=== PATIENT | male | born 1935 | race Caucasian/White ===

== ENCOUNTER 2017-04-18 12:49 | Emergency (ER) | payer MEDICARE, OTHER ==
--- NOTE | 2017-04-18 13:16 | ED Physician Documentation ---
History of Present Illness - Stated complaint Stated Complaint: LT RIB PX FALL - Chief complaint Chief Complaint: General - History obtained from History obtained from: Patient, Family - History of Present Illness Timing: Yesterday Pain level max: 10 Pain level now: 6 Improved by: rest Worsened by: movement - Additonal information Additional information: 81 yo M walking his dog yesterday at approx noon, tripped and fell onto hard dirt. Now complains of pain to the L chest wall. Worse yesterday, better today. Pain increased with ROM. Better with rest. Tylenol has helped with the pain. Pt is on xarelto and did strike his forehead as well. Also complains of pain with inspiration. Review of Systems Ten Systems: 10 systems reviewed and negative Constitutional: denies: Fever, Chills Nose: denies: Rhinorrhea / runny nose, Congestion Throat: denies: Sore throat Cardiac: denies: Chest pain / pressure Respiratory: denies: Cough, Hemoptysis, Wheezing GI: denies: Nausea, Vomiting, Diarrhea Skin: denies: Rash Musculoskeletal: denies: Neck pain, Back pain Neurologic: denies: Focal weakness, Numbness, Headache PD PAST MEDICAL HISTORY - Past Medical History Cardiovascular: Atrial fibrillation Endocrine/Autoimmune: Type 2 diabetes GI: GERD - Past Surgical History Past Surgical History: No - Present Medications Home Medications: Ambulatory Orders Medication Instructions Recorded Confirmed Bupropion HCl [Bupropion HCl Sr] 150 mg PO DAILY 08/07/14 04/18/17 Diltiazem HCl [Diltiazem ER] 240 mg PO DAILY 08/07/14 04/18/17 Metformin HCl [Fortamet] 500 mg PO DAILY 08/07/14 04/18/17 Omeprazole 20 mg PO DAILY 08/07/14 04/18/17 Rivaroxaban [Xarelto] 20 mg PO DAILY 08/07/14 04/18/17 Hydrocodone/Acetaminophen 1 - 2 each PO Q6H PRN #20 tablet 04/18/17 [Hydrocodon-Acetaminophen 5-325] - Allergies Allergies/Adverse Reactions: Allergies Allergy/AdvReac Type Severity Reaction Status Date / Time oxycodone HCl * Allergy Unknown Unknown Verified 04/18/17 13:06 [From Percocet] - Social History Does the pt smoke?: No Smoking Status: Never smoker Does the pt drink ETOH?: No Does the pt have substance abuse?: No - Immunizations Immunizations are current?: Yes - POLST Patient has POLST: No PD ED PE NORMAL - Vitals Vital signs reviewed: Yes - General General: Alert and oriented X 3, No acute distress, Well developed/nourished, Other (abrasion to the R forehead) - HEENT HEENT: PERRL, EOMI, Ears normal, Moist mucous membranes, Pharynx benign - Neck Neck: Supple, no meningeal sign, No bony TTP - Cardiac Cardiac: RRR, Strong equal pulses - Respiratory Respiratory: No respiratory distress, Clear bilaterally, Other (TTP L anterior 3 -7th ribs. No crepitus. no ecchymosis) - Abdomen Abdomen: Soft, Non tender, Non distended - Back Back: No spinal TTP - Derm Derm: Warm and dry - Extremities Extremities: No edema, No calf tenderness / cord - Neuro Neuro: Alert and oriented X 3 - Psych Psych: Normal mood, Normal affect Results - Vitals Vitals: Vital Signs - 24 hr 04/18/17 04/18/17 12:58 15:01 Temperature 36.8 C Heart Rate 67 60 Respiratory 18 16 Rate Blood Pressure 135/76 H 147/89 H O2 Saturation 97 97 Oxygen O2 Source Room air - Rads (name of study) head CT Radiology: Prelim report reviewed, EMP read contemporaneously, See rad report ( No acute intracranial abnormality nor bleed. ) ribs with PA chest Radiology: Prelim report reviewed, EMP read contemporaneously, See rad report ( Hairline fractures anterior aspects of the left fourth, fifth, sixth and seventh ribs. Pacer) PD MEDICAL DECISION MAKING - ED course Complexity details: reviewed results, re-evaluated patient, considered differential, d/w patient ED course: Patient is an 81-year-old male who presents to the emergency department with left-sided rib pain after a fall. He is found to have multiple hairline fractures of the fourth, fifth, sixth and seventh ribs. No pneumothorax or hemothorax. Pain well controlled here. Patient is on Xarelto and did strike his head, negative head CT. We will continue supportive care and follow-up with his doctor. No other acute injuries at this time. Patient counseled regarding signs and symptoms for which I believe and urgent re-evaluation would be necessary. Patient with good understanding of and agreement to plan and is comfortable going home at this time This document was made in part using voice recognition software. While efforts are made to proofread this document, sound alike and grammatical errors may occur. Departure - Departure Disposition: 01 Home, Self Care Clinical Impression: Ribs, multiple fractures Qualifiers: Encounter type: initial encounter Fracture type: closed Laterality: left Qualified Code(s): S22.42XA - Multiple fractures of ribs, left side, initial encounter for closed fracture Condition: Good Instructions: ED Fx Rib Follow-Up: Alejandrina Rivas MD [Primary Care Provider] - Within 1 week Prescriptions: Hydrocodone/Acetaminophen [Hydrocodon-Acetaminophen 5-325] 1 - 2 each PO Q6H PRN #20 tablet PRN Reason: pain Comments: You have several small fractures of your ribs. This can take weeks to months to heal. Take several deep breaths every hour. Return if you worsen. Do not drink alcohol or drive while on narcotic pain medicine. Note that many narcotic pain relievers also contain tylenol/acetaminophen. Please ensure that your total dose of acetaminophen from all sources does not exceed 3 grams (3000mg) per day. You may constipated on this medication, take a stool softener such as "Colace" twice a day while you are on it. Also recommend a [id number]-[id number] laxative such as senna or MiraLAX any day that you do not have a bowel movement. If you received narcotic pain medication in the emergency department, do not drive or operate machinery for the next 24 hours. Discharge Date/Time: 04/18/17 15:02
[2017-04-18] MEDS ORDERED: HYDROcod/ACETAM 5/325 MG TABLET PO STA (14:08)
[2017-04-18] MEDS ORDERED: HYDROcod/ACETAM 5/325 MG TABLET ONE (14:10)
--- NOTE | 2017-04-18 14:19 | CT Preliminary Report ---
Exam: CT Head W/O IMPRESSION: No acute intracranial abnormality nor bleed. [facility] SITE ID: [id number]
--- NOTE | 2017-04-18 14:23 | CT Report ---
EXAM: CT HEAD EXAM DATE: 04/18/2017 02:05 PM. CLINICAL HISTORY: Ground level fall. Patient on Xarelto. COMPARISON: None. TECHNIQUE: Multiaxial CT images were obtained from the foramen magnum to the vertex. IV contrast: Non e. Reformats: Coronal. In accordance with CT protocol optimization, one or more of the following dose reduction techniques w ere utilized for this exam: automated exposure control, adjustment of mA and/or KV based on patient s ize, or use of iterative reconstructive technique. FINDINGS: Parenchyma: No intraparenchymal hemorrhage. No evidence of mass, midline shift, or CT findings of acu te infarction. Chavira-white differentiation is distinct. Extraaxial Spaces: Normal for age. 3 x 5 mm dystrophic calcification within a mid medial left frontal gyrus. No subdural or epidural col lections identified. Ventricles: The ventricles and cortical sulci are enlarged, consistent with age-related tissue loss. Sinuses: Imaged paranasal sinuses, orbits, and mastoids show no significant abnormality. Bones: No evidence of fracture or calvarial defect. Other: Diffuse chronic microangiopathic white matter changes are evident. IMPRESSION: No acute intracranial abnormality nor bleed. [facility] Referring Provider Line: [phone] SITE ID: [id number]
--- NOTE | 2017-04-18 14:26 | XRAY Preliminary Report ---
Exam: XR Ribs w/PA Chest LT IMPRESSION: 1. Hairline fractures anterior aspects of the left fourth, fifth, sixth and seventh ribs. 2. Pacer. [facility] SITE ID: [id number]
--- NOTE | 2017-04-18 14:35 | XRAY Report ---
EXAM: LEFT RIB RADIOGRAPHY EXAM DATE: 04/18/2017 02:15 PM. CLINICAL HISTORY: Ground level fall, left rib pain. COMPARISON: Two-view chest 04/04/2006. TECHNIQUE: 1 view of the chest and 2 views of the ribs. FINDINGS: Bones: A marker was placed in the area of concern and this corresponds to the anterior most aspects o f the left fourth and fifth ribs. Hairline fractures of the anterior most aspects of the left fourth, fifth, sixth and seventh ribs with a very small amount of adjacent pleural thickening. Lungs: Minimal amount of platelike atelectasis left base. No other focal opacities. No pneumothorax. No pleural effusions. Mediastinum: Heart and mediastinal contours are unremarkable. Other: Stable dual lead left subclavian pacer. IMPRESSION: 1. Hairline fractures anterior aspects of the left fourth, fifth, sixth and seventh ribs. 2. Pacer. [facility] Referring Provider Line: [phone] SITE ID: [id number]
[2017-04-18 15:02] VITALS: BP 147/89
== END 2017-04-18 15:02 | disposition home or self-care (01) ==
LOC: ED 12:49
DX: S22.42XA Multiple fractures of ribs, left side, initial encounter for closed fracture (principal); S00.81XA Abrasion of other part of head, initial encounter; W01.0XXA Fall on same level from slipping, tripping and stumbling without subsequent striking against object, initial encounter; Y93.K1 Activity, walking an animal; E11.9 Type 2 diabetes mellitus without complications; Z79.84 Long term (current) use of oral hypoglycemic drugs; I48.91 Unspecified atrial fibrillation; Z79.01 Long term (current) use of anticoagulants
CPT/HCPCS: 70450; 71101; 99283; 99284; A9270

== ENCOUNTER 2017-08-09 14:14 | Emergency (ER) | payer MEDICARE, OTHER ==
[2017-08-09] MEDS ORDERED: SODIUM CHLORIDE 0.9% 1,000 ML IV ONE (14:56)
--- NOTE | 2017-08-09 15:08 | ED Physician Documentation ---
History of Present Illness - Stated complaint Stated Complaint: WEAKNESS - Chief complaint Chief Complaint: Neuro - History obtained from History obtained from: Patient, Family - History of Present Illness Timing: How many days ago (4) Pain level max: 0 Pain level now: 0 Improved by: rest Worsened by: movement - Additonal information Additional information: Patient is an 81-year-old gentleman who presents to the emergency department with weakness, dry cough, intermittent diarrhea for the past 4 days. He states he has had a poor appetite, but no abdominal pain. No vomiting. No nausea. No headache. Review of Systems Ten Systems: 10 systems reviewed and negative Constitutional: denies: Fever, Chills GI: denies: Vomiting Skin: denies: Rash Musculoskeletal: denies: Neck pain, Back pain Neurologic: denies: Focal weakness, Numbness, Seizure, Confused PD PAST MEDICAL HISTORY - Past Medical History Past Medical History: Yes Cardiovascular: Atrial fibrillation Endocrine/Autoimmune: Type 2 diabetes GI: GERD - Past Surgical History Past Surgical History: Yes Cardiovascular: Pacemaker - Present Medications Home Medications: Ambulatory Orders Medication Instructions Recorded Confirmed Bupropion HCl [Bupropion HCl Sr] 150 mg PO DAILY 08/07/14 08/09/17 Diltiazem HCl [Diltiazem ER] 240 mg PO DAILY 08/07/14 08/09/17 Metformin HCl [Fortamet] 500 mg PO DAILY 08/07/14 08/09/17 Omeprazole 20 mg PO DAILY 08/07/14 08/09/17 Rivaroxaban [Xarelto] 20 mg PO DAILY 08/07/14 08/09/17 - Allergies Allergies/Adverse Reactions: Allergies Allergy/AdvReac Type Severity Reaction Status Date / Time oxycodone HCl * Allergy Unknown Unknown Verified 08/09/17 14:31 [From Percet] - Social History Does the pt smoke?: No Smoking Status: Never smoker Does the pt drink ETOH?: No Does the pt have substance abuse?: No - Immunizations Immunizations are current?: Yes - POLST Patient has POLST: No PD ED PE NORMAL - Vitals Vital signs reviewed: Yes - General General: Alert and oriented X 3, No acute distress - HEENT HEENT: PERRL, Moist mucous membranes, Other (dry lips) - Neck Neck: Supple, no meningeal sign - Cardiac Cardiac: RRR, Strong equal pulses - Respiratory Respiratory: No respiratory distress, Clear bilaterally - Abdomen Abdomen: Soft, Non tender, Non distended - Derm Derm: Warm and dry - Extremities Extremities: No deformity, No edema, No calf tenderness / cord - Neuro Neuro: Alert and oriented X 3 - Psych Psych: Normal mood, Normal affect Results - Vitals Vitals: Vital Signs - 24 hr 08/09/17 08/09/17 08/09/17 14:28 15:00 16:14 Temperature 36.2 C L 36.5 C Heart Rate 78 76 59 L Respiratory 16 18 15 Rate Blood Pressure 129/78 122/80 127/71 O2 Saturation 99 97 08/09/17 17:51 Temperature Heart Rate 78 Respiratory 15 Rate Blood Pressure 136/79 H O2 Saturation 98 Oxygen O2 Source Room air - EKG (time done) 1441 Rate: Rate (enter#) (67) Rhythm: NSR [place]: Normal Intervals: Normal [place] QRS: Normal Ischemia: Non specific changes - Labs Labs: Laboratory Tests 08/09/17 08/09/17 08/09/17 15:05 15:05 15:10 WBC 4.6 L RBC 4.80 Hgb 11.6 L Hct 36.9 L MCV 77.0 L MCH 24.3 L MCHC 31.5 L RDW 19.1 H Plt Count 253 MPV 7.8 Neut # 3.0 Lymph # 0.8 L Roberts # 0.7 Eos # 0.0 Baso # 0.1 Absolute Nucleated RBC 0.01 Nucleated RBC % 0.2 Sodium 134 L Potassium 3.9 Chloride 101 Carbon Dioxide 21 Anion Gap 12.0 BUN 12 Creatinine 1.0 Estimated GFR (MDRD) 72 L Glucose 100 Calcium 9.0 Total Bilirubin 0.7 AST 38 ALT 38 Alkaline Phosphatase 61 Total Protein 7.9 Albumin 3.7 Globulin 4.2 Albumin/Globulin Ratio 0.9 L Lipase 39 Urine Color Urine Clarity Urine pH Ur Specific [place] Urine Protein Urine Glucose (UA) Urine Ketones Urine Occult Blood Urine Nitrite Urine Bilirubin Urine Urobilinogen Ur Leukocyte Esterase Ur Microscopic Review Urine Culture Comments Influenza A (Rapid) Negative Influenza B (Rapid) Negative Influenza Types A,B Ag - 08/09/17 17:00 WBC RBC Hgb Hct MCV MCH MCHC RDW Plt Count MPV Neut # Lymph # Roberts # Eos # Baso # Absolute Nucleated RBC Nucleated RBC % Sodium Potassium Chloride Carbon Dioxide Anion Gap BUN Creatinine Estimated GFR (MDRD) Glucose Calcium Total Bilirubin AST ALT Alkaline Phosphatase Total Protein Albumin Globulin Albumin/Globulin Ratio Lipase Urine Color YELLOW Urine Clarity CLEAR Urine pH 6.0 Ur Specific [place] 1.010 Urine Protein NEGATIVE Urine Glucose (UA) NEGATIVE Urine Ketones TRACE Urine Occult Blood NEGATIVE Urine Nitrite NEGATIVE Urine Bilirubin NEGATIVE Urine Urobilinogen 1 (NORMAL) Ur Leukocyte Esterase NEGATIVE Ur Microscopic Review NOT INDICATED Urine Culture Comments NOT INDICATED Influenza A (Rapid) Influenza B (Rapid) Influenza Types A,B Ag - Rads (name of study) cxr Radiology: Prelim report reviewed, EMP read contemporaneously, See rad report ( Lungs well-expanded. Normal heart size. No evidence of focal infiltrate. Costophrenic sulcus blunting could represent small effusions or pleural thickening. . There is no evidence of pneumothorax. ) PD MEDICAL DECISION MAKING - ED course Complexity details: reviewed results, re-evaluated patient, considered differential, d/w patient ED course: Patient is an 81-year-old male who is very well-appearing, nontoxic. Afebrile. Appears to have a viral syndrome. Influenza negative. No pneumonia. No UTI. Given IV fluids and feels significantly improved. Tolerating p.o. without difficulty. We will continue supportive care and follow-up with his doctor. Patient counseled regarding signs and symptoms for which I believe and urgent re-evaluation would be necessary. Patient with good understanding of and agreement to plan and is comfortable going home at this time This document was made in part using voice recognition software. While efforts are made to proofread this document, sound alike and grammatical errors may occur. Departure - Departure Disposition: 01 Home, Self Care Clinical Impression: Viral syndrome, Dehydration Condition: Good Instructions: ED Dehydration, ED Viral Syndrome Follow-Up: Provider,Other [Primary Care Provider] - Within 1 week Comments: Drink plenty of fluids and rest. Return if you worsen. Discharge Date/Time: 08/09/17 17:52
[2017-08-09 15:14] LABS: BASOPHILS # (AUTO) 0.1 10^3/uL (0.0-0.1); BASOPHILS % (AUTO) 1.5 %; EOSINOPHILS % (AUTO) 0.6 %; HCT - HEMATOCRIT 36.9 % (42.0-52.0); HGB - HEMOGLOBIN 11.6 g/dL (14.0-18.0); LYMPHOCYTES # (AUTO) 0.8 10^3/uL (1.5-3.5); LYMPHOCYTES % (AUTO) 17.8 %; MEAN CORPUSCULAR HEMOGLOBIN 24.3 pg (27.0-31.0); MEAN CORPUSCULAR HGB CONC 31.5 g/dL (32.0-36.0); MEAN PLATELET VOLUME 7.8 fL (7.4-11.4); MONOCYTES # (AUTO) 0.7 10^3/uL (0.0-1.0); MONOCYTES % (AUTO) 14.6 %; NEUTROPHILS % (AUTO) 65.5 %; NUCLEATED RED BLOOD CELLS AUTO 0.2 /100WBC; RED CELL DISTRIBUTION WIDTH 19.1 % (12.0-15.0); UNCORRECTED WHITE BLOOD COUNT 4.6 x10^3/uL; WHITE BLOOD COUNT 4.6 x10^3/uL (4.8-10.8)
[2017-08-09 15:27] LABS: ALBUMIN/GLOBULIN RATIO 0.9 (1.0-2.2); BILIRUBIN,TOTAL 0.7 mg/dL (0.2-1.0); POTASSIUM 3.9 mmol/L (3.5-5.0); TOTAL PROTEIN 7.9 g/dL (6.7-8.2)
--- NOTE | 2017-08-09 16:20 | XRAY Preliminary Report ---
Exam: XR CHEST 2 VIEW PA/LAT IMPRESSION: 1. Lungs well-expanded. Normal heart size. 2. No evidence of focal infiltrate. 3. Costophrenic sulcus blunting could represent small effusions or pleural thickening. 4. There is no evidence of pneumothorax. [facility] SITE ID: [id number]
--- NOTE | 2017-08-09 16:23 | XRAY Report ---
EXAM: CHEST RADIOGRAPHY EXAM DATE: 08/09/2017 03:42 PM. CLINICAL HISTORY: Cough. COMPARISON: 04/18/2017. TECHNIQUE: 2 views. FINDINGS: Lungs/Pleura: Lungs are well-expanded. There is costophrenic sulcus blunting. No evidence of focal in filtrate. No pneumothorax. Mediastinum: Heart and mediastinal contours are unremarkable. Other: Left subclavian dual-lead pacemaker is stable in position. IMPRESSION: 1. Lungs well-expanded. Normal heart size. 2. No evidence of focal infiltrate. 3. Costophrenic sulcus blunting could represent small effusions or pleural thickening. 4. There is no evidence of pneumothorax. [facility] Referring Provider Line: [phone] SITE ID: [id number]
[2017-08-09 17:04] LABS: BILIRUBIN,URINE NEGATIVE (NEGATIVE)
[2017-08-09 17:05] LABS: UA CHARGE (STRIP ONLY) YES; UR CULTURE IF IND NOT INDICATED
[2017-08-09 17:52] VITALS: BP 136/79
== END 2017-08-09 17:52 | disposition home or self-care (01) ==
LOC: ED 14:14
DX: E86.0 Dehydration (principal); B34.9 Viral infection, unspecified; I48.91 Unspecified atrial fibrillation; E11.9 Type 2 diabetes mellitus without complications; Z79.84 Long term (current) use of oral hypoglycemic drugs; K21.9 Gastro-esophageal reflux disease without esophagitis; Z95.0 Presence of cardiac pacemaker
CPT/HCPCS: 36415; 71020; 80053; 81001; 81003; 83690; 85025; 87086; 87275; 87276; 93005; 96360; 99284

== ENCOUNTER 2018-02-21 11:24 | Emergency (ER) | payer MEDICARE, OTHER | END 2018-02-21 11:30 | disposition left against medical advice (07) | LOC: ED 11:24 | DX: Z53.21 Procedure and treatment not carried out due to patient leaving prior to being seen by health care provider (principal) ==

== ENCOUNTER 2018-06-20 18:45 | Outpatient (CLI) | payer MEDICARE, OTHER | END 2018-06-20 18:46 | disposition critical access hospital (66) | LOC: EMS 18:45 | PROVIDERS: ATTEND Surgery | DX: M54.5 Low back pain (principal); W18.39XA Other fall on same level, initial encounter; Y92.007 Garden or yard of unspecified non-institutional (private) residence as the place of occurrence of the external cause | CPT/HCPCS: A0425; A0427 ==

== ENCOUNTER 2018-06-20 19:17 | Emergency (ER) | payer MEDICARE, OTHER ==
[2018-06-20] MEDS ORDERED: fentaNYL 100 MCG/2 ML VIAL IVP STA (19:23)
--- NOTE | 2018-06-20 19:27 | ED Physician Documentation ---
PD HPI BACK INJURY - Stated complaint Stated Complaint: GLF/BACK PAIN - History obtained from History obtained from: Patient, EMS - History of Present Illness Location: [place] Type of injury: Fall (fell forward, he was breaking a branch and it gave way with low back pain. No head inj. Fentanyl en route, much better.) Review of Systems Constitutional: reports: Reviewed and negative Throat: reports: Reviewed and negative Cardiac: reports: Reviewed and negative Respiratory: reports: Reviewed and negative PD PAST MEDICAL HISTORY - Past Medical History Cardiovascular: Atrial fibrillation Endocrine/Autoimmune: Type 2 diabetes GI: GERD - Past Surgical History Past Surgical History: Yes Cardiovascular: Pacemaker - Present Medications Home Medications: Ambulatory Orders Medication Instructions Recorded Confirmed Bupropion HCl [Bupropion HCl Sr] 150 mg PO DAILY 08/07/14 08/10/17 Diltiazem HCl [Diltiazem ER] 240 mg PO DAILY 08/07/14 08/10/17 Metformin HCl [Fortamet] 500 mg PO DAILY 08/07/14 08/10/17 Omeprazole 20 mg PO DAILY 08/07/14 08/10/17 Rivaroxaban [Xarelto] 20 mg PO DAILY 08/07/14 08/10/17 Hydrocodone/Acetaminophen 1 - 2 each PO Q6H PRN #14 tablet 06/20/18 [Hydrocodon-Acetaminophen 5-325] fentaNYL [Fentanyl 25mcg patch] 1 each TD Q3D #5 patch.td72 06/20/18 - Allergies Allergies/Adverse Reactions: Allergies Allergy/AdvReac Type Severity Reaction Status Date / Time oxycodone HCl * Allergy Unknown Unknown Verified 08/09/17 14:31 [From Percocet] - Social History Does the pt smoke?: No Smoking Status: Never smoker Does the pt drink ETOH?: No Does the pt have substance abuse?: No - Immunizations Immunizations are current?: Yes - POLST Patient has POLST: No PD ED PE NORMAL - Vitals Vital signs reviewed: Yes - General General: Alert and oriented X 3, No acute distress - Neck Neck: Supple, no meningeal sign, No bony TTP - Abdomen Abdomen: Soft, Non tender - Back Back: No CVA TTP, No spinal TTP, Other (Point to lumbar spine as sight of pain. The patient has equal and normal Achilles and patellar reflexes bilaterally. Normal sensation in all areas of the legs. Patient denies saddle anesthesia. Normal strength in flexion-extension at the ankles, knees, and flexion of the hips.) - Neuro Neuro: Alert and oriented X 3, Normal speech - Psych Psych: Normal mood, Normal affect Results - Vitals Vitals: Vital Signs - 24 hr 06/20/18 06/20/18 06/20/18 19:40 20:59 22:10 Temperature 36.5 C 36.4 C L Heart Rate 61 60 61 Respiratory 18 16 16 Rate Blood Pressure 149/79 H 147/76 H 131/78 H O2 Saturation 100 100 100 Oxygen O2 Source Room air - Rads (name of study) CT L spine Radiology: EMP read contemporaneously (Acute 2 column L2 vertebral body fracture with mild retrolisthesis and bilateral facet joint space widening at L2 and L3 and interbody L2-L3 disc widening concerning for unstable fracture. Acute 2 column L1 vertebral body fracture without subluxation. 2: Compression fracture of the L4 vertebral body.) LS Xray Radiology: Discussed with rads (Spoke with [facility] radiology who felt that it was stable in the upright position without additional collapse.) PD MEDICAL DECISION MAKING - ED course ED course: Isolated back injury in a 82-year-old anticoagulated male. CT as shown in case discussed with spine surgeon at [facility], Dr. Saldivar reviewed the images and recommends LSO brace and upright lumbar spine x-rays to valve for collapse. If no collapse to follow-up with them in clinic. The LSO was placed and there was no collapse per the radiologist on upright x- rays. He was given a fentanyl patch and hydrocodone for breakthrough. - Sepsis Event Vital Signs: Vital Signs - 24 hr 06/20/18 06/20/18 06/20/18 19:40 20:59 22:10 Temperature 36.5 C 36.4 C L Heart Rate 61 60 61 Respiratory 18 16 16 Rate Blood Pressure 149/79 H 147/76 H 131/78 H O2 Saturation 100 100 100 Oxygen O2 Source Room air Departure - Departure Disposition: 01 Home, Self Care Clinical Impression: Compression fracture of L2 Qualifiers: Encounter type: initial encounter Fracture type: closed Qualified Code(s): S 32.020A - Wedge compression fracture of second lumbar vertebra, initial encounter for closed fracture Compression fracture of L1 lumbar vertebra Qualifiers: Encounter type: initial encounter Fracture type: closed Qualified Code(s): S32.010A - Wedge compression fracture of first lumbar vertebra, initial encounter for closed fracture Compression fracture of L4 lumbar vertebra Qualifiers: Encounter type: initial encounter Fracture type: closed Qualified Code(s): S32.040A - Wedge compression fracture of fourth lumbar vertebra, initial encounter for closed fracture Condition: Good Record reviewed to determine appropriate education?: Yes Instructions: ED Fx Comp Vertebral Prescriptions: fentaNYL [Fentanyl 25mcg patch] 1 each TD Q3D #5 patch.td72 Hydrocodone/Acetaminophen [Hydrocodon-Acetaminophen 5-325] 1 - 2 each PO Q6H PRN #14 tablet PRN Reason: pain Comments: Keep the brace on at all times. The spine clinic from [facility] should be calling you but if you do not hear from them in a few days you can call them at [phone]. Do not drink or drive while taking narcotic pain medication. Note that many narcotic pain relievers also contain Tylenol/acetaminophen. Please ensure that your total dose of acetaminophen from all sources does not exceed 3 g (3000 mg) per day. You may get constipated while on this medication. Take a stool softener such as Colace twice a day while you are on it. Also add an kndg-jpl-pmfucjo laxative such as senna or MiraLAX on any day that you do not have a bowel movement. If you received a narcotic pain medication or sedative while in the emergency department, do not drive for the next 24 hours.
--- NOTE | 2018-06-20 20:37 | CT Report ---
Reason: back inj Procedure Date: 06/20/2018 Accession Number: [id number] / [id number] Procedure: CT - Lumbar Spine W/O CPT Code: FULL RESULT: EXAM: CT LUMBAR SPINE WITHOUT CONTRAST EXAM DATE: 06/20/2018 08:03 PM. CLINICAL HISTORY: Back injury. COMPARISONS: None. TECHNIQUE: Thin-section axial images were acquired of the lumbar spine from T12 to S1 without contrast. Post-processing: Coronal and sagittal reformats. Other: None. In accordance with CT protocol optimization, one or more of the following dose reduction techniques were utilized for this exam: automated exposure control, adjustment of mA and/or KV based on patient size, or use of iterative reconstructive technique. FINDINGS: Alignment: There is 3 mm of retrolisthesis of L2 over L3. There is 2 mm of anterolisthesis of L4 over L5. Bones: Five [id number] lumbar vertebral bodies are present. There is a 2 column fracture of the L1 vertebral body. There is approximately 30% loss of central anterior vertebral body height loss with buckling of the cortex of the anterior vertebral body. There is cortical deformity and fracture involving the posterior vertebral body which minimally narrows the central spinal canal. There is mild anterior kyphosis. There is an L2 vertebral body 2 column compression fracture with approximately 40 % loss of anterior vertebral body height. The posterior vertebral body cortex is mildly irregular. The pedicle and lamina appears intact. There is a 2 column fracture of the L4 vertebral body with approximately 10-20% loss of vertebral body height. No pedicle or lamina fracture. Disk Levels/Facets: The bilateral L2-L3 facet joints appear widened. The L2-L3 interbody disk space appears widened. Musculature: Normal. No fatty atrophy. Other: The visualized retroperitoneum is unremarkable. IMPRESSION: 1. Acute 2 column L2 vertebral body fracture with mild retrolisthesis and bilateral facet joint space widening at L2-L3 and interbody L2-L3 disk widening, concerning for unstable fracture. 2. Acute 2 column L1 vertebral body fracture without subluxation. 3. 2 column compression fracture of L4 vertebral body. [facility] The above findings were discussed with Kamar Walsh by Dr. Jl Prado at 20:35 hrs on 06/20/18.
--- NOTE | 2018-06-20 22:08 | XRAY Report ---
Reason: upright LS XRays to eval collapse Procedure Date: 06/20/2018 Accession Number: [id number] / [id number] Procedure: XR - Lumbar Spine 2 View CPT Code: FULL RESULT: EXAM: LUMBOSACRAL SPINE RADIOGRAPHY EXAM DATE: 06/20/2018 09:43 PM. CLINICAL HISTORY: Upright LS XRays to eval collapse. COMPARISONS: LUMBAR SPINE 2 VIEW 12/06/2014. TECHNIQUE: 2 views. FINDINGS: Alignment: Grade 1 anterolisthesis of L4 and L5 and grade 1 retrolisthesis of L2 on L3. Bones: New severe anterior compression deformities of L1 and L2 with approximately 40% loss of vertebral body height. Disks: Multilevel degenerative narrowing Facets: Severe lower lumbar degenerative change Sacroiliac Joints: Unremarkable. Soft Tissues: Unremarkable IMPRESSION: New severe compression deformities of L1 and L2. New grade 1 retrolisthesis of L2 on L3 and grade 1 anterolisthesis of L4 and L5. RADIA
[2018-06-20] MEDS ORDERED: fentaNYL 25 MCG PATCH TOP STA (22:20)
[2018-06-20] MEDS ORDERED: HYDROcod/ACET 5/325 Prepack 4 PO STA (22:21)
[2018-06-20 22:38] VITALS: BP 145/84
== END 2018-06-20 22:35 | disposition home or self-care (01) ==
LOC: EDUNIT# → ED 19:17
DX: S32.020A Wedge compression fracture of second lumbar vertebra, initial encounter for closed fracture (principal); S32.010A Wedge compression fracture of first lumbar vertebra, initial encounter for closed fracture; S32.040A Wedge compression fracture of fourth lumbar vertebra, initial encounter for closed fracture; W18.30XA Fall on same level, unspecified, initial encounter; E11.9 Type 2 diabetes mellitus without complications; Z79.84 Long term (current) use of oral hypoglycemic drugs; Z95.0 Presence of cardiac pacemaker
CPT/HCPCS: 72100; 72131; 96374; 99283; A9270

== ENCOUNTER 2018-06-22 13:36 | Outpatient (CLI) | payer MEDICARE, OTHER | END 2018-06-22 13:37 | disposition critical access hospital (66) | LOC: EMS 13:36 | PROVIDERS: ATTEND Surgery | DX: M54.5 Low back pain (principal) | CPT/HCPCS: A0425; A0427 ==

== ENCOUNTER 2018-06-22 14:10 | Emergency (ER) | payer MEDICARE, OTHER ==
[2018-06-22] MEDS ORDERED: oxyCODONE 5 MG TABLET PO STA (14:14)
--- NOTE | 2018-06-22 14:15 | ED Physician Documentation ---
PD HPI BACK INJURY - Stated complaint Stated Complaint: LOW BACK PX - History obtained from History obtained from: Patient, EMS - History of Present Illness Location: Lower (I saw him a couple of days ago, he had a lumbar spine compression fracture after an accident at home. He was given fentanyl patch, 25 mcg and hydrocodone noting his oxycodone allergy. His pain is uncontrolled. No new injuries. We discussed his prior reaction oxycodone and he admits that it was poorly differentiated and maybe it was just because he did not take it with food.) Review of Systems Constitutional: denies: Fever, Chills Cardiac: denies: Chest pain / pressure Respiratory: denies: Dyspnea, Cough GI: denies: Abdominal Pain, Nausea, Vomiting PD PAST MEDICAL HISTORY - Past Medical History Cardiovascular: Atrial fibrillation Endocrine/Autoimmune: Type 2 diabetes GI: GERD - Past Surgical History Past Surgical History: Yes Cardiovascular: Pacemaker - Present Medications Home Medications: Ambulatory Orders Medication Instructions Recorded Confirmed Bupropion HCl [Bupropion HCl Sr] 150 mg PO DAILY 08/07/14 08/10/17 Diltiazem HCl [Diltiazem ER] 240 mg PO DAILY 08/07/14 08/10/17 Metformin HCl [Fortamet] 500 mg PO DAILY 08/07/14 08/10/17 Omeprazole 20 mg PO DAILY 08/07/14 08/10/17 Rivaroxaban [Xarelto] 20 mg PO DAILY 08/07/14 08/10/17 Hydrocodone/Acetaminophen 1 - 2 each PO Q6H PRN #14 tablet 06/20/18 [Hydrocodon-Acetaminophen 5-325] fentaNYL [Fentanyl 25mcg patch] 1 each TD Q3D #5 patch.td72 06/20/18 Oxycodone HCl/Acetaminophen 1 - 2 each PO Q6H PRN #20 tablet 06/22/18 [Percocet 5-325 mg Tablet] - Allergies Allergies/Adverse Reactions: Allergies Allergy/AdvReac Type Severity Reaction Status Date / Time oxycodone HCl * Allergy Unknown Unknown Verified 08/09/17 14:31 [From Percocet] - Social History Does the pt smoke?: No Smoking Status: Never smoker Does the pt drink ETOH?: No Does the pt have substance abuse?: No - Immunizations Immunizations are current?: Yes - POLST Patient has POLST: No PD ED PE NORMAL - Vitals Vital signs reviewed: Yes - General General: Alert and oriented X 3, No acute distress - Neck Neck: Supple, no meningeal sign, No bony TTP - Respiratory Respiratory: No respiratory distress - Abdomen Abdomen: Non tender - Neuro Neuro: Alert and oriented X 3, braider tender 2-12 intact Eye Opening: Spontaneous Motor: Obeys Commands Verbal: Oriented GCS Score: 15 - Psych Psych: Normal mood, Normal affect Results - Vitals Vitals: Vital Signs - 24 hr 06/22/18 14:24 Temperature 36.3 C L Heart Rate 70 Respiratory 18 Rate Blood Pressure 159/86 H O2 Saturation 98 Oxygen O2 Source Room air PD MEDICAL DECISION MAKING - ED course ED course: 82-year-old gentleman with known lumbar spine compression fractures with uncontrolled pain. He was on fentanyl at 25. When he got here I increased it to 50. We tried some oxycodone despite a listed allergy, and he did fine and actually his pain was controlled with that. I offered to call his doctor for potential retirement stay which he declined, he has help at home and felt much better when we gave him a walker here. Wanted to go back down to the 25 mcg dose of fentanyl given his advanced age and the fact that we now something more effective for breakthrough pain and we did that. - Sepsis Event Vital Signs: Vital Signs - 24 hr 06/22/18 14:24 Temperature 36.3 C L Heart Rate 70 Respiratory 18 Rate Blood Pressure 159/86 H O2 Saturation 98 Oxygen O2 Source Room air Departure - Departure Disposition: 01 Home, Self Care Clinical Impression: Compression fracture of L2 Qualifiers: Encounter type: initial encounter Fracture type: closed Qualified Code(s): S32.020A - Wedge compression fracture of second lumbar vertebra, initial encounter for closed fracture Compression fracture of L1 lumbar vertebra Qualifiers: Encounter type: initial encounter Fracture type: closed Qualified Code(s): S32.010A - Wedge compression fracture of first lumbar vertebra, initial encounter for closed fracture Compression fracture of L4 lumbar vertebra Qualifiers: Encounter type: initial encounter Fracture type: closed Qualified Code(s): S32.040A - Wedge compression fracture of fourth lumbar vertebra, initial encounter for closed fracture Condition: Good Record reviewed to determine appropriate education?: Yes Instructions: ED Fx Comp Vertebral Prescriptions: Oxycodone HCl/Acetaminophen [Percocet 5-325 mg Tablet] 1 - 2 each PO Q6H PRN #20 tablet PRN Reason: pain Comments: Follow-up with [facility] as previously discussed. Return if worse. Do not drink or drive while taking narcotic pain medication. Note that many narcotic pain relievers also contain Tylenol/acetaminophen. Please ensure that your total dose of acetaminophen from all sources does not exceed 3 g (3000 mg) per day. You may get constipated while on this medication. Take a stool softener such as Colace twice a day while you are on it. Also add an [id number] laxative such as senna or MiraLAX on any day that you do not have a bowel movement. If you received a narcotic pain medication or sedative while in the emergency department, do not drive for the next 24 hours.
[2018-06-22] MEDS ORDERED: fentaNYL 50 MCG PATCH TOP STA (14:22)
[2018-06-22] MEDS ORDERED: fentaNYL 25 MCG PATCH TOP STA (16:05)
[2018-06-22 17:21] VITALS: BP 146/96
== END 2018-06-22 17:19 | disposition home or self-care (01) ==
LOC: EDUNIT# → ED 14:10
DX: S32.020A Wedge compression fracture of second lumbar vertebra, initial encounter for closed fracture (principal); S32.010A Wedge compression fracture of first lumbar vertebra, initial encounter for closed fracture; S32.040A Wedge compression fracture of fourth lumbar vertebra, initial encounter for closed fracture; W19.XXXA Unspecified fall, initial encounter; Y92.009 Unspecified place in unspecified non-institutional (private) residence as the place of occurrence of the external cause; E11.9 Type 2 diabetes mellitus without complications; Z95.0 Presence of cardiac pacemaker
CPT/HCPCS: 99283; A9270

== ENCOUNTER 2019-07-19 10:26 | Observation (INO) | payer MEDICARE, OTHER ==
--- NOTE | 2019-07-19 10:51 | ED Physician Documentation ---
PD HPI GI BLEED - Stated complaint Stated Complaint: BLOODY STOOL - Chief complaint Chief Complaint: Abd Pain - History obtained from History obtained from: Patient - History of Present Illness Timing - onset: Yesterday Timing - details: Abrupt onset, Still present, Constant (Has been having to have a feeling of small bowel movements regularly since yesterday with output of red blood. It is not a copious amount but enough to have him concerned. He has a feeling of general weakness but no near syncope. He denies any abdominal pain.) Associated symptoms: BRBPR, Loss of appetite. No: Vomiting, Maroon stool, Black/tarry stool, Near syncope / syncope (but feeling of general weakness) Contributing factors: Anticoagulated (Xarelto for atrial fib.) Similar symptoms before: Has not had sx before Recently seen: Not recently seen (Last colonoscopy was about 4 years ago and showed diverticula. No history of recent tumors. There is a remote history of polyps prior to that so gets scoped every 5 years.) Review of Systems Constitutional: denies: Fever, Chills Nose: denies: Rhinorrhea / runny nose, Congestion Throat: denies: Sore throat Cardiac: denies: Chest pain / pressure Respiratory: denies: Dyspnea GI: reports: Bloody / black stool. denies: Abdominal Pain, Nausea, Vomiting, Constipation, Diarrhea : denies: Dysuria, Frequency Neurologic: reports: Generalized weakness. denies: Near syncope Psychiatric: denies: Anxiety Endocrine: reports: Easy bruising / bleeding. denies: Weight loss Immunocompromised: denies: Immunocompromised PD PAST MEDICAL HISTORY - Past Medical History Cardiovascular: Atrial fibrillation Endocrine/Autoimmune: Type 2 diabetes GI: GERD Musculoskeletal: Chronic back pain - Past Surgical History Past Surgical History: Yes Cardiovascular: Pacemaker - Present Medications Home Medications: Ambulatory Orders Medication Instructions Recorded Confirmed Bupropion HCl [Bupropion HCl Sr] 150 mg PO DAILY 08/07/14 08/10/17 Diltiazem HCl [Diltiazem ER] 240 mg PO DAILY 08/07/14 08/10/17 Metformin HCl [Fortamet] 500 mg PO DAILY 08/07/14 08/10/17 Omeprazole 20 mg PO DAILY 08/07/14 08/10/17 Rivaroxaban [Xarelto] 20 mg PO DAILY 08/07/14 08/10/17 Hydrocodone/Acetaminophen 1 - 2 each PO Q6H PRN #14 tablet 06/20/18 [Hydrocodon-Acetaminophen 5-325] fentaNYL [Fentanyl 25mcg patch] 1 each TD Q3D #5 patch.td72 06/20/18 Oxycodone HCl/Acetaminophen 1 - 2 each PO Q6H PRN #20 tablet 06/22/18 [Percocet 5-325 mg Tablet] - Allergies Allergies/Adverse Reactions: Allergies Allergy/AdvReac Type Severity Reaction Status Date / Time oxycodone HCl * Allergy Unknown Unknown Verified 08/09/17 14:31 [From Percocet] - Social History Does the pt smoke?: No Smoking Status: Never smoker Does the pt drink ETOH?: No Does the pt have substance abuse?: No - Immunizations Immunizations are current?: Yes - POLST Patient has POLST: No PD ED PE NORMAL - Vitals Vital signs reviewed: Yes - General General: Alert and oriented X 3, No acute distress, Well developed/nourished - HEENT HEENT: Pharynx benign - Neck Neck: Supple, no meningeal sign, No adenopathy - Cardiac Cardiac: No murmur. No: RRR (irregular but good rate) - Respiratory Respiratory: Clear bilaterally - Abdomen Abdomen: Normal bowel sounds, Soft, Non tender, Non distended, No organomegaly - Male Male : Deferred - Rectal Rectal: Other (Mild perirectal redness consistent with possible tinea. There is no bleeding at the rectum. There is no hemorrhoids. The vault has bright red to slightly purple blood without clots. There is no stool in the vault. There is no rectal tenderness.) - Back Back: No CVA TTP - Derm Derm: Normal color, Warm and dry - Extremities Extremities: Normal ROM s pain, No edema, No calf tenderness / cord - Neuro Neuro: Alert and oriented X 3, No motor deficit, Normal speech Results - Vitals Vitals: Vital Signs - 24 hr 07/19/19 07/19/19 10:33 11:45 Temperature 36.9 C Heart Rate 68 68 Respiratory 18 15 Rate Blood Pressure 143/65 H 116/57 L O2 Saturation 98 98 Oxygen O2 Source Room air - Labs Labs: Laboratory Tests 07/19/19 07/19/19 07/19/19 11:13 11:22 11:22 WBC 8.4 RBC 5.23 Hgb 14.1 Hct 43.5 MCV 83.2 MCH 27.0 MCHC 32.4 RDW 23.2 H Plt Count 306 MPV 9.5 Neut # (Auto) 5.5 Lymph # (Auto) 1.5 Berks # (Auto) 1.1 H Eos # (Auto) 0.2 Baso # (Auto) 0.1 Absolute Nucleated RBC 0.00 Nucleated RBC % 0.0 Manual Slide Review Indicated PT 15.6 H INR 1.4 H APTT 35.0 H Sodium 137 Potassium 4.0 Chloride 104 Carbon Dioxide 21 Anion Gap 12.0 BUN 9 Creatinine 0.9 Estimated GFR (MDRD) 81 L Glucose 126 H Calcium 9.1 Total Bilirubin 0.6 AST 27 ALT 27 Alkaline Phosphatase 56 Total Protein 7.6 Albumin 3.8 Globulin 3.8 Albumin/Globulin Ratio 1.0 Lipase 47 Blood Type Antibody Screen 07/19/19 11:59 WBC RBC Hgb Hct MCV MCH MCHC RDW Plt Count MPV Neut # (Auto) Lymph # (Auto) Berks # (Auto) Eos # (Auto) Baso # (Auto) Absolute Nucleated RBC Nucleated RBC % Manual Slide Review PT INR APTT Sodium Potassium Chloride Carbon Dioxide Anion Gap BUN Creatinine Estimated GFR (MDRD) Glucose Calcium Total Bilirubin AST ALT Alkaline Phosphatase Total Protein Albumin Globulin Albumin/Globulin Ratio Lipase Blood Type B POSITIVE Antibody Screen NEGATIVE PD MEDICAL DECISION MAKING - ED course Complexity details: reviewed results, re-evaluated patient (Feels less weak with IV fluids.), considered differential (Apparent lower GI bleed in a person on anticoagulation with still active bleeding and red blood in the vault. Vitals are stable. Hemoglobin is good. Will consult with surgery and then talk with the hospitalist regarding sequential exams and blood counts and treatment for bleeding.), d/w patient Departure - Departure Disposition: ED Place in Observation Clinical Impression: Lower GI bleeding, Anticoagulant long-term use Atrial fibrillation Qualifiers: Atrial fibrillation type: unspecified chronic Qualified Code(s): I48.20 - Chronic atrial fibrillation, unspecified; I48.2 - Chronic atrial fibrillation Condition: Stable Record reviewed to determine appropriate education?: Yes
[2019-07-19 11:27] LABS: BASOPHILS # (AUTO) 0.1 10^3/uL (0.0-0.1); BASOPHILS % (AUTO) 1.2 %; EOSINOPHILS # (AUTO) 0.2 10^3/uL (0.0-0.7); HGB - HEMOGLOBIN 14.1 g/dL (14.0-18.0); LYMPHOCYTES # (AUTO) 1.5 10^3/uL (1.5-3.5); LYMPHOCYTES % (AUTO) 17.7 %; MEAN CORPUSCULAR HGB CONC 32.4 g/dL (32.0-36.0); MEAN CORPUSCULAR VOLUME 83.2 fL (80.0-94.0); MEAN PLATELET VOLUME 9.5 fL (7.4-11.4); MONOCYTES # (AUTO) 1.1 10^3/uL (0.0-1.0); MONOCYTES % (AUTO) 13.5 %; NEUTROPHILS # (AUTO) 5.5 10^3/uL (1.5-6.6); NEUTROPHILS % (AUTO) 64.8 %; PLT - PLATELET COUNT 306 10^3/uL (130-450); RED BLOOD COUNT 5.23 10^6/uL (4.70-6.10); RED CELL DISTRIBUTION WIDTH 23.2 % (12.0-15.0); WHITE BLOOD COUNT 8.4 x10^3/uL (4.8-10.8)
[2019-07-19] MEDS ORDERED: SODIUM CHLORIDE 0.9% 1,000 ML IV ONE (11:32)
[2019-07-19] MEDS ORDERED: TRANEXAMIC ACID 1,000 MG in SODIUM CHLORIDE 0.9% 100ML 100 ML IV STA (11:33)
[2019-07-19 11:39] LABS: ALBUMIN 3.8 g/dL (3.2-5.5); BILIRUBIN,TOTAL 0.6 mg/dL (0.2-1.0); CALCIUM 9.1 mg/dL (8.5-10.3); CREATININE 0.9 mg/dL (0.6-1.2); TOTAL PROTEIN 7.6 g/dL (6.7-8.2)
[2019-07-19 11:52] LABS: INR 1.4 (0.8-1.2); PT - PROTHROMBIN TIME 15.6 secs (9.9-12.6)
[2019-07-19] MEDS ORDERED: SODIUM CHLORIDE FLUSH 0.9% 10 ML SYRINGE IVP PRN ×2 (13:09→14:07)
[2019-07-19] MEDS ORDERED: ONDANSETRON 4 MG/2 ML VIAL IVP PRN ×2 (13:09→14:07)
[2019-07-19] MEDS ORDERED: ZOLPIDEM 5 MG TABLET PO PRN ×2 (13:09→14:07)
[2019-07-19] MEDS ORDERED: ACETAMINOPHEN 325 MG TABLET PO PRN ×2 (13:09→14:07)
[2019-07-19] MEDS ORDERED: HYDROcod/ACETAM 7.5 MG/325 MG TABLET PO PRN ×3 (13:23→14:07)
[2019-07-19] MEDS ORDERED: PANTOPRAZOLE 40 MG VIAL IVP SCH ×2 (14:00→15:00)
[2019-07-19 14:03] LABS: HB2 TOTAL 14.6 g/dL; HEMOGLOBIN A1C 0.52 g/dL; HEMOGLOBIN A1C % 5.4 % (4.6-6.2)
--- NOTE | 2019-07-19 14:57 | HISTORY & PHYSICAL EXAMINATION ---
Chief Complaint - Chief Complaint Chief Complaint: GI bleed History of Present Illness - History of Present Illness HPI Comment/Other: Mr. Neely is a 83-yrs-old male with a PMH signficant of afib with Xarelto, DM2, GERD, colon polyps and chronic back pain, who present ER complain of GI bleed. pt report since from yesterday, pt noted he had fresh blood with his stool when he had bowel movement. He report there is not too much blood but it catch his attention. His HGB is 14.1 today. pt report because his family mother side had hx of colon cancer, and he had hx of colon polyps, he had colonoscopy every five years. His last colonoscopy was three years which was found he had polyps. He report he did take Xarelto for his afib which was prescribed by his unit support representative. He denies alcohol abuse, recently taking NSAIDs. Pt denies chest pain, shortness of breath, headache, abdominal pain, nausea, vomiting, diarrhea, vision change, dysuria or hematuria. GI surgeon Dr. Donato was consulted by ER provider. pt is admitted in observation unit for further management his GI bleed. History - Past Medical History Cardiovascular: reports: Atrial fibrillation Endocrine/Autoimmune: reports: Type 2 diabetes GI: reports: GERD Musculoskeletal: reports: Chronic back pain MRSA Hx?: Yes - Past Surgical History Cardiovascular: reports: Pacemaker - Family & Social History Family History: Mother: , Cancer, Father: Family History Comment/Other: pt report his mother from colon cancer, Father at age 96, unknown any disease cause. Social History Notes: pt report he is living with family in [place]. he denies cigarette smoking, alcohol and drug issue. - POLST Patient has POLST: No Meds/Allgy - Home Medications Home Medications: Ambulatory Orders Medication Instructions Recorded Confirmed Bupropion HCl [Bupropion HCl Sr] 150 mg PO BID 08/07/14 07/19/19 Metformin HCl [Fortamet] 500 mg PO DAILY 08/07/14 07/19/19 Omeprazole 20 mg PO DAILY 08/07/14 07/19/19 dilTIAZem HCl [Diltiazem 24Hr ER 300 mg PO DAILY 07/19/19 07/19/19 (Cd)] - Allergies Allergies/Adverse Reactions: Allergies Allergy/AdvReac Type Severity Reaction Status Date / Time oxycodone HCl * Allergy Unknown Unknown [facility] 08[facility]09[facility]17 [facility] Review of Systems - Constitutional Constitutional: denies: Fatigue, Fever, Chills, Malaise, Weakness, Poor appetite, Diaphoresis, Night sweats, Weight gain, Weight loss - Eyes Eyes: denies: Pain, Irritation, Amaurosis, Blurred vision, Spots in vision, Field loss, Vision loss, Dipolpia - Ears, Nose & Throat Ears, Nose & Throat: denies: Ear pain, Hearing loss, Hearing aids, Tinnitus, Nasal pain, Nasal discharge, Nosebleeds, Nasal obstruction, Nasal congestion, Postnasal drainage, Sore throat, Mouth lesions, Bleeding gums - Cardiovascular Cariovascular: denies: Irregular heart rate, Palpitations, Chest pain, Edema, Lightheadedness, Syncope, Exertional dyspnea, Decr. exercise tolerance - Respiratory Respiratory: denies: Cough, Sputum production, Wheezing, Snoring, Hemoptysis, Orthopnea, SOB at rest, SOB with exertion - Gastrointestinal Gastrointestinal: reports: Rectal bleeding. denies: Abdominal pain, Abdominal distention, Constipation, Diarrhea, Change in bowel habits, Black stools, Bloody stools, Nausea, Vomiting, Bile emesis, Osman blood emesis, Coffee grounds emesis, Reflux/heartburn - Genitourinary Genitourinary: denies: Dysuria, Frequency, Urgency, Hematuria, Incontinence, Flank pain, Nocturia, Urethral discharge - Musculoskeletal Musculoskeletal: denies: Muscle pain, Back pain, Muscle aches, Stiffness, Limited range of motion, Muscle weakness, Gout, Joint pain - Integumentary Integumentary: denies: Rash, Pruritis, Lesions, Dryness, Lumps, Acne, Pigment changes, Nail changes - Neurological Neurological: denies: General weakness, Focal weakness, Headache, Dizziness, Numbness, Memory problems, Pre-existing deficit, Abnormal gait, Seizures, Incoordination, Slurred speech - Psychiatric Psychiatric: denies: Depression, Anxiety, Suicidal, Delusions, Hallucinations, Homicidal - Endocrine Endocrine: denies: Polyuria, Polydypsia, Polyphagia, Intolerance to cold - Hematologic/Lymphatic Hematologic/Lymphatic: denies: Anemia, Bruising, Petechiae, Blood clots, Lympha denopathy, Bleeding tendencies Exam - Vital Signs Reviewed Vital Signs: Yes Vital Signs: Vital Signs x48h Temp Pulse Pulse Resp BP BP Pulse Ox 07/19/19 14:20 36.8 C 61 16 121/68 100 07/19/19 11:45 68 15 116/57 L 98 07/19/19 10:33 36.9 C 68 18 143/65 H 98 - Physical Exam General Appearance: positive: No acute distress, Alert. negative: Lethargic Eyes Bilateral: positive: Normal inspection, PERRL, No lid inflammation, Conjunctivae nml ENT: positive: ENT inspection nml, Pharynx nml, No signs of dehydration. negative: Purulent nasal drainage, Pharyngeal erythema, Oral lesions Neck: positive: Nml inspection, Thyroid nml, No JVD, Trachea midline. negative: Thyromegaly, Lymphadenopathy (R), Lymphadenopathy (L), Stiff neck, Swelling/bruising, Tracheal deviation Respiratory: positive: Chest non-tender, No respiratory distress, Breath sounds nml. negative: Wheezes, Rales, Rhonchi Cardiovascular: positive: Regular rate & rhythm, No murmur, No gallop. negative: Irregularly irregular, Extrasystoles, Tachycardia, Bradycardia, JVD present, Systolic murmur, Diastolic murmur Peripheral Pulses: positive: 2+ Abdomen: positive: Non-tender, No organomegaly, Nml bowel sounds, No distention. negative: Tenderness, Guarding, Rebound Back: positive: Nml inspection. negative: CVA tenderness (R), CVA tenderness (L) Skin: positive: Color nml, No rash, Warm, Dry. negative: Cyanosis, Diaphoresis, Pallor Extremities: positive: Non-tender, Full ROM, Nml appearance. negative: Calf tenderness, Joint swelling, Carla's sign/cords Neurologic/Psychiatric: positive: Oriented x3, Motor nml, Sensation nml, Mood/affect nml. negative: Weakness, Sensory loss, Facial droop, Slurred/abnml speech, Depressed mood/affect Conclusion/Plan - Problem List (1) Lower GI bleeding Conclusion/Plan: pt had 14.1 HGB today. pt report fresh blood in his stool. pt had colonoscopy three years ago. polyps was removed per pt report. pt take Xarelto now. it can be cause of GI bleed. GI surgeon was consulted and recommended medical floor closely monitor pt if continue to have GI bleed,and check HGB. H&H monitor pt vital and tele monitor pt (2) Atrial fibrillation Conclusion/Plan: stable HR, continue home Cardizem. hold Xarelto now continue tele and vital monitor Qualifiers: Atrial fibrillation type: unspecified chronic Qualified Code(s): I48.20 - Chronic atrial fibrillation, unspecified; I48.2 - Chronic atrial fibrillation (3) Diabetes mellitus Conclusion/Plan: pt took Metformin at home. hold Metformin, start Slide scale, check A1C, start hypoglycemia protocol (4) Hx of colonic polyps Conclusion/Plan: pt report he had colonoscopy three years, and every five years, he will have colonoscopy. Last colonoscopy he was found to have polyps which was removed. advise pt continue closely followup his GI for management. (5) Do not intubate, cardiopulmonary resuscitation (CPR)-only code status Conclusion/Plan: pt ask for DNR/DNI - Lab Results Fish Bones: 07/20/19 05:15 07/20/19 05:15 Core Measures - Anticipated LOS I expect patient to be DC'd or transferred within 96 hours.: Yes - Stroke - Rehab Assessment Rehab services assessment to be ordered?: Yes - AMI - Statin at Admit Aspirin Prescribed on Admit: Yes
[2019-07-19] MEDS: INSULIN ASPART 300 UNIT/3 ML PEN SUBQ SCH ×2 (16:36→21:08)
[2019-07-19] MEDS: SODIUM CHLORIDE FLUSH 0.9% 10 ML SYRINGE IVP SCH (16:37)
[2019-07-19] MEDS ORDERED: SODIUM CHLORIDE FLUSH 0.9% 10 ML SYRINGE IVP SCH (17:00)
[2019-07-19] MEDS ORDERED: INSULIN ASPART 300 UNIT/3 ML PEN SUBQ SCH (17:00)
[2019-07-19 19:30] LABS: HGB - HEMOGLOBIN 12.1 g/dL (14.0-18.0)
[2019-07-19] MEDS: buPROPion SR 150 MG TABLET PO SCH (20:46)
[2019-07-20] MEDS: SODIUM CHLORIDE FLUSH 0.9% 10 ML SYRINGE IVP SCH ×2 (00:30→08:48)
[2019-07-20 05:30] LABS: BASOPHILS # (AUTO) 0.1 10^3/uL (0.0-0.1); BASOPHILS % (AUTO) 1.1 %; EOSINOPHILS # (AUTO) 0.3 10^3/uL (0.0-0.7); EOSINOPHILS % (AUTO) 3.2 %; HGB - HEMOGLOBIN 12.9 g/dL (14.0-18.0); LYMPHOCYTES % (AUTO) 24.2 %; MEAN CORPUSCULAR HEMOGLOBIN 26.9 pg (27.0-31.0); MEAN CORPUSCULAR HGB CONC 31.9 g/dL (32.0-36.0); MEAN CORPUSCULAR VOLUME 84.3 fL (80.0-94.0); MEAN PLATELET VOLUME 9.4 fL (7.4-11.4); NEUTROPHILS # (AUTO) 4.8 10^3/uL (1.5-6.6); NEUTROPHILS % (AUTO) 58.6 %; PLT - PLATELET COUNT 262 10^3/uL (130-450); RED BLOOD COUNT 4.79 10^6/uL (4.70-6.10); RED CELL DISTRIBUTION WIDTH 22.6 % (12.0-15.0); WHITE BLOOD COUNT 8.2 x10^3/uL (4.8-10.8)
[2019-07-20 05:42] LABS: CALCIUM 8.8 mg/dL (8.5-10.3); CREATININE 0.7 mg/dL (0.6-1.2); MAGNESIUM 2.2 mg/dL (1.7-2.8)
[2019-07-20 06:03] LABS: PLATELET ESTIMATE, MANUAL NORMAL (130-450,000) (NORMAL)
[2019-07-20 07:45] VITALS: BP 122/67
[2019-07-20] MEDS: buPROPion SR 150 MG TABLET PO SCH (08:47)
[2019-07-20] MEDS: INSULIN ASPART 300 UNIT/3 ML PEN SUBQ SCH (08:48)
[2019-07-20] MEDS ORDERED: diltiaZEM CD 240 MG CAPSULE PO SCH ×2 (09:00)
[2019-07-20] MEDS ORDERED: DILTIAZEM HCL 300 MG PO SCH (09:00)
[2019-07-20] MEDS ORDERED: POLYETHYLENE GLYCOL 3350 17 GM PACKET PO SCH ×2 (09:00)
[2019-07-20] MEDS ORDERED: diltiaZEM CD 180 MG CAPSULE PO SCH (09:00)
[2019-07-20] MEDS ORDERED: diltiaZEM CD 120 MG CAPSULE PO SCH (09:00)
--- NOTE | 2019-07-20 10:38 | Discharge Plan ---
Discharge Plan Problem Reviewed?: Yes Disposition: Home, Self Care Condition: Stable Diet: Diabetic Activity Restrictions: Activity as Tolerated Shower Restrictions: No (fall precaution) Instruction Topics: Bleeding Gastrointestinal Health Concerns: Lower GI bleed Plan of Treatment: Your Xarelto home meds is hold now for your lower GI bleed. Please followup your PCP and tombstone erector helper for further management of your medical conditions Care Goals: stabilization and improvement of your medical condition Assessment: you had no GI bleed in the hospital when you had bowel movement, your HGB is stable now. Additional Instructions or Follow Up instructions: you may followup your PCP in one week, followup your tombstone erector helper in one to two weeks as out-pt. Should your symptoms return or worsen, you may present ER or call 911 for help. No Smoking: If you smoke, Please STOP! Call for help. Follow-up with: FREDDY THOMAS MD [Primary Care Provider] -
--- NOTE | 2019-07-20 10:46 | DISCHARGE SUMMARY ---
"Discharge Summary Admit Date: 07/19/19 Discharge Date: 07/20/19 Discharging Provider: FLORES Primary Care Provider: Rajwinder Patel Condition at Discharge: Stable Discharge Disposition: 01 Home, Self Care Discharge Facility Name: home - DIAGNOSES Admission Diagnoses: (1) Lower GI bleeding (2) Atrial fibrillation (3) Diabetes mellitus (4) Hx of colonic polyps Discharge Diagnoses with Status of Each Condition: 1) Lower GI bleeding pt's HGB is stable, 12.9. Dr. Donato stated to me pt can be d/c charged and hold home Xarelto. pt has normal bowel movement in hospital, no more GI bleed. (2) Atrial fibrillation stable (3) Diabetes mellitus stable (4) Hx of colonic polyps stable - HPI History of Present Illness: Mr. Neely is a 83-yrs-old male with a PMH signficant of afib with Xarelto, DM2, GERD, colon polyps and chronic back pain, who present ER complain of GI bleed. pt report since from yesterday, pt noted he had fresh blood with his stool when he had bowel movement. He report there is not too much blood but it catch his attention. His HGB is 14.1 today. pt report because his family mother side had hx of colon cancer, and he had hx of colon polyps, he had colonoscopy every five years. His last colonoscopy was three years which was found he had polyps. He report he did take Xarelto for his afib which was prescribed by his ux design lead. He denies alcohol abuse, recently taking NSAIDs. Pt denies chest pain, shortness of breath, headache, abdominal pain, nausea, vomiting, diarrhea, vision change, dysuria or hematuria. GI surgeon Dr. Donato was consulted by ER provider. pt is admitted in observation unit for further management his GI bleed. - CONSULTS | PROCEDURES Consultations: Dr. Donato Procedures: no procedure - HOSPITAL COURSE Hospital Course: pt was admitted for lower fresh blood GI bleed. Dr. Donato was consulted for GI bleed. Pt was given IVF by ER, and had hemodilation. Pt had H&H to be monitored. Pt's HGB was 14 at admission, after IVF of NS and hemodilation, his HGB is 12.1, then his HGB increased to 12.9. pt had a normal bowel movement in hospital, no more GI bleed. pt took Xarelto at home for his Afib. Xarelto is hold now until he see his ux design lead or PCP. Dr. Donato in phone call to me released pt to be d/c. 1) Lower GI bleeding pt's HGB is stable, 12.9. Dr. Donato stated to me pt can be d/c charged and hold home Xarelto. pt has normal bowel movement in hospital, no more GI bleed. (2) Atrial fibrillation stable (3) Diabetes mellitus stable (4) Hx of colonic polyps stable - ALLERGIES Allergies/Adverse Reactions: Allergies Allergy/AdvReac Type Severity Reaction Status Date / Time oxycodone HCl * Allergy Unknown Unknown Verified 08/09/17 14:31 [From Percocet] - MEDICATIONS Home Medications: Ambulatory Orders Medication Instructions Recorded Confirmed Bupropion HCl [Bupropion HCl Sr] 150 mg PO BID 08/07/14 07/19/19 Metformin HCl [Fortamet] 500 mg PO DAILY 08/07/14 07/19/19 Omeprazole 20 mg PO DAILY 08/07/14 07/19/19 dilTIAZem HCl [Diltiazem 24Hr ER 300 mg PO DAILY 07/19/19 07/19/19 (Cd)] - PHYSICAL EXAM AT DISCHARGE General Appearance: positive: No acute distress, Alert. negative: Lethargic Eyes Bilateral: positive: Normal inspection, PERRL, No lid inflammation, Conjunctivae nml ENT: positive: ENT inspection nml, Pharynx nml, No signs of dehydration. negative: Purulent nasal drainage, Pharyngeal erythema, Oral lesions Neck: positive: Nml inspection, Thyroid nml, No JVD, Trachea midline. negative: Thyromegaly, Lymphadenopathy (R), Lymphadenopathy (L), Stiff neck, Swelling/bruising, Tracheal deviation Respiratory: positive: Chest non-tender, No respiratory distress, Breath sounds nml. negative: Wheezes, Rales, Rhonchi Cardiovascular: positive: Regular rate & rhythm, No murmur, No gallop. negative: Irregularly irregular, Extrasystoles, Tachycardia, Bradycardia, JVD present, Systolic murmur, Diastolic murmur Peripheral Pulses: positive: 2+ Abdomen: positive: Non-tender, No organomegaly, Nml bowel sounds, No distention. negative: Tenderness, Guarding, Rebound Back: positive: Nml inspection. negative: CVA tenderness (R), CVA tenderness (L) Skin: positive: Color nml, No rash, Warm, Dry. negative: Cyanosis, Diaphoresis, Pallor Extremities: positive: Non-tender, Full ROM, Nml appearance. negative: Calf tenderness, Joint swelling, Carla's sign/cords Neurologic/Psychiatric: positive: Oriented x3, Motor nml, Sensation nml, Mood/affect nml. negative: Weakness, Sensory loss, Facial droop, Slurred/abnml speech, Depressed mood/affect - LABS Result Diagrams: 07/20/19 05:15 07/20/19 05:15 - FOLLOW UP Follow Up: Your Xarelto home meds is hold now for your lower GI bleed. Please followup your PCP and ux design lead for further management of your medical conditions you may followup your PCP in one week, followup your ux design lead in one to two weeks as out-pt. Should your symptoms return or worsen, you may present ER or call 911 for help. - TIME SPENT Time Spent in Discharge (Minutes): 45"
== END 2019-07-20 11:24 | disposition home or self-care (01) ==
LOC: ED 10:26 → MS2 13:10 → ED 14:01
PROVIDERS: ADMIT Nurse Practitioner Gerontology; ATTEND Nurse Practitioner Gerontology
DX: K92.1 Melena (principal); D68.32 Hemorrhagic disorder due to extrinsic circulating anticoagulants; T45.515A Adverse effect of anticoagulants, initial encounter; Y92.009 Unspecified place in unspecified non-institutional (private) residence as the place of occurrence of the external cause; E11.9 Type 2 diabetes mellitus without complications; I48.20 Chronic atrial fibrillation, unspecified; K21.9 Gastro-esophageal reflux disease without esophagitis; Z87.19 Personal history of other diseases of the digestive system; Z86.010 Personal history of colon polyps; Z95.0 Presence of cardiac pacemaker; Z79.899 Other long term (current) drug therapy; Z79.84 Long term (current) use of oral hypoglycemic drugs; Z80.0 Family history of malignant neoplasm of digestive organs; Z86.14 Personal history of Methicillin resistant Staphylococcus aureus infection; Z66 Do not resuscitate
CPT/HCPCS: 36415; 80048; 80053; 83036; 83690; 83735; 85014; 85018; 85025; 85610; 85730; 86850; 86900; 86901; 96365; 96375; 99284; 99285; A9270; G0378

== ENCOUNTER 2020-04-06 12:10 | Emergency (ER) | payer MEDICARE, OTHER ==
[2020-04-06 12:29] VITALS: BP 122/65
[2020-04-06 12:49] LABS: BASOPHILS # (AUTO) 0.1 10^3/uL (0.0-0.1); BASOPHILS % (AUTO) 1.2 %; EOSINOPHILS # (AUTO) 0.3 10^3/uL (0.0-0.7); EOSINOPHILS % (AUTO) 3.6 %; HGB - HEMOGLOBIN 15.4 g/dL (14.0-18.0); LYMPHOCYTES # (AUTO) 1.3 10^3/uL (1.5-3.5); LYMPHOCYTES % (AUTO) 18.5 %; MEAN CORPUSCULAR HEMOGLOBIN 32.1 pg (27.0-31.0); MEAN CORPUSCULAR HGB CONC 33.6 g/dL (32.0-36.0); MEAN CORPUSCULAR VOLUME 95.6 fL (80.0-94.0); MEAN PLATELET VOLUME 10.2 fL (7.4-11.4); MONOCYTES % (AUTO) 13.2 %; NEUTROPHILS # (AUTO) 4.5 10^3/uL (1.5-6.6); NEUTROPHILS % (AUTO) 62.3 %; PLT - PLATELET COUNT 246 10^3/uL (130-450); RED CELL DISTRIBUTION WIDTH 13.2 % (12.0-15.0); WHITE BLOOD COUNT 7.3 x10^3/uL (4.8-10.8)
[2020-04-06 12:58] LABS: BILIRUBIN,URINE NEGATIVE (NEGATIVE); GLUCOSE, URINE (UA) NEGATIVE (NEGATIVE); KETONES,URINE (UA) NEGATIVE (NEGATIVE); LEUKOCYTE ESTERASE, URINE NEGATIVE (NEGATIVE); NITRITE,URINE NEGATIVE (NEGATIVE); OCCULT BLOOD,URINE LARGE (NEGATIVE); PH,URINE 6.5 PH (5.0-7.5); PROTEIN,URINE 100 mg/dL (NEGATIVE); UROBILINOGEN,URINE 0.2 (NORMAL) E.U./dL (NORMAL)
[2020-04-06 13:01] LABS: CLARITY,URINE BLOODY (CLEAR)
[2020-04-06 13:03] LABS: ALBUMIN 3.9 g/dL (3.2-5.5); ALBUMIN/GLOBULIN RATIO 1.1 (1.0-2.2); BILIRUBIN,TOTAL 1.1 mg/dL (0.2-1.0); CREATININE 0.9 mg/dL (0.6-1.2); TOTAL PROTEIN 7.6 g/dL (6.7-8.2)
--- NOTE | 2020-04-06 13:04 | ED Physician Documentation ---
History of Present Illness - Stated complaint Stated Complaint: MALE - Chief complaint Chief Complaint: UTI - History obtained from History obtained from: Patient - History of Present Illness Timing: Today Pain level max: 0 Pain level now: 0 - Additonal information Additional information: 84-year-old male is on Xarelto. He states he has had painless hematuria today. He has had growths on the inside of his bladder that has been removed a few times over the years. He does not think it was cancerous. Nothing makes it better or worse. No dysuria. No back pain. No abdominal pain. No trauma. Review of Systems Constitutional: denies: Fever, Chills Nose: denies: Rhinorrhea / runny nose, Congestion Respiratory: denies: Cough GI: denies: Nausea, Vomiting, Diarrhea : denies: Dysuria, Frequency, Hesitancy Skin: denies: Rash Musculoskeletal: denies: Neck pain, Back pain Neurologic: denies: Headache PD PAST MEDICAL HISTORY - Past Medical History Past Medical History: Yes Cardiovascular: Atrial fibrillation Respiratory: None Endocrine/Autoimmune: Type 2 diabetes GI: GERD : Benign prostate hypertrophy, Nocturia, Frequency HEENT: Chronic vision loss Psych: None Musculoskeletal: Chronic back pain Derm: None - Past Surgical History Past Surgical History: Yes Cardiovascular: Pacemaker - Present Medications Home Medications: Ambulatory Orders Medication Instructions Recorded Confirmed Bupropion HCl [Bupropion HCl Sr] 150 mg PO BID 08/07/14 07/19/19 Metformin HCl [Fortamet] 500 mg PO DAILY 08/07/14 07/19/19 Omeprazole 20 mg PO DAILY 08/07/14 07/19/19 dilTIAZem HCl [Diltiazem 24Hr ER 300 mg PO DAILY 07/19/19 07/19/19 (Cd)] - Allergies Allergies/Adverse Reactions: Allergies Allergy/AdvReac Type Severity Reaction Status Date / Time oxycodone HCl * Allergy Unknown Unknown Verified 08/09/17 14:31 [From Percet] - Social History Does the pt smoke?: No Smoking Status: Never smoker Does the pt drink ETOH?: No Does the pt have substance abuse?: No - Immunizations Immunizations are current?: Yes - POLST Patient has POLST: No PD ED PE NORMAL - Vitals Vital signs reviewed: Yes - General General: Alert and oriented X 3, No acute distress, Well developed/nourished - HEENT HEENT: Moist mucous membranes - Neck Neck: Supple, no meningeal sign - Cardiac Cardiac: RRR, Strong equal pulses - Respiratory Respiratory: No respiratory distress, Clear bilaterally - Abdomen Abdomen: Soft, Non tender, Non distended - Back Back: No CVA TTP - Derm Derm: Warm and dry - Neuro Neuro: Alert and oriented X 3 - Psych Psych: Normal mood, Normal affect Results - Vitals Vitals: Vital Signs - 24 hr 04/06/20 12:15 Temperature 36.8 C Heart Rate 60 Respiratory 18 Rate Blood Pressure 122/65 O2 Saturation 98 Oxygen O2 Source Room air - Labs Labs: Laboratory Tests 04/06/20 04/06/20 04/06/20 12:20 12:43 12:43 WBC 7.3 RBC 4.80 Hgb 15.4 Hct 45.9 MCV 95.6 H MCH 32.1 H MCHC 33.6 RDW 13.2 Plt Count 246 MPV 10.2 Neut # (Auto) 4.5 Lymph # (Auto) 1.3 L [place] # (Auto) 1.0 Eos # (Auto) 0.3 Baso # (Auto) 0.1 Absolute Nucleated RBC 0.00 Nucleated RBC % 0.0 PT 18.9 H INR 1.7 H APTT 37.9 H Sodium Potassium Chloride Carbon Dioxide Anion Gap BUN Creatinine Estimated GFR (MDRD) Glucose Calcium Total Bilirubin AST ALT Alkaline Phosphatase Total Protein Albumin Globulin Albumin/Globulin Ratio Urine Color BROWN Urine Clarity BLOODY Urine pH 6.5 Ur Specific [place] 1.025 Urine Protein 100 H Urine Glucose (UA) NEGATIVE Urine Ketones NEGATIVE Urine Occult Blood LARGE H Urine Nitrite NEGATIVE Urine Bilirubin NEGATIVE Urine Urobilinogen 0.2 (NORMAL) Ur Leukocyte Esterase NEGATIVE Urine RBC TNTC H Urine WBC 0-3 Ur Squamous Epith Cells NONE SEEN Urine Bacteria Few Ur Microscopic Review INDICATED Urine Culture Comments NOT INDICATED 04/06/20 12:43 WBC RBC Hgb Hct MCV MCH MCHC RDW Plt Count MPV Neut # (Auto) Lymph # (Auto) [place] # (Auto) Eos # (Auto) Baso # (Auto) Absolute Nucleated RBC Nucleated RBC % PT INR APTT Sodium 135 Potassium 3.8 Chloride 102 Carbon Dioxide 23 Anion Gap 10.0 BUN 12 Creatinine 0.9 Estimated GFR (MDRD) 81 L Glucose 94 Calcium 9.0 Total Bilirubin 1.1 H AST 21 ALT 20 Alkaline Phosphatase 53 Total Protein 7.6 Albumin 3.9 Globulin 3.7 Albumin/Globulin Ratio 1.1 Urine Color Urine Clarity Urine pH Ur Specific [place] Urine Protein Urine Glucose (UA) Urine Ketones Urine Occult Blood Urine Nitrite Urine Bilirubin Urine Urobilinogen Ur Leukocyte Esterase Urine RBC Urine WBC Ur Squamous Epith Cells Urine Bacteria Ur Microscopic Review Urine Culture Comments - Rads (name of study) CT abdomen pelvis Radiology: Prelim report reviewed, EMP read contemporaneously, See rad report PD MEDICAL DECISION MAKING - ED course Complexity details: reviewed results, re-evaluated patient, considered differential, d/w patient ED course: Patient presents to the emergency department with painless hematuria today. He is on Xarelto. No significant lab abnormalities. No significant findings on CT scan. He apparently has had to have the inside of his bladder scraped by urology in the past. He may be having another growth there that may need reinspection. We will continue the Xarelto as he does have at least a pacemaker and chronic A. fib. Unclear what other cardiac history he has. He is not quite sure why he is on the Xarelto. Hemodynamically stable. He will to contact his urologist tomorrow. No evidence of UTI. Patient counseled regarding signs and symptoms for which I believe and urgent re-evaluation would be necessary. Patient with good understanding of and agreement to plan and is comfortable going home at this time This document was made in part using voice recognition software. While efforts are made to proofread this document, sound alike and grammatical errors may occur. Departure - Departure Disposition: 01 Home, Self Care Clinical Impression: Anticoagulant long-term use Hematuria Qualifiers: Hematuria type: gross Qualified Code(s): R31.0 - Gross hematuria Condition: Good Instructions: ED Hematuria Follow-Up: FREDDY THOMAS MD [Primary Care Provider] - Within 1 week Comments: You should follow-up with your urologist within the next week. They may want to do another cystoscopy of your bladder to see if there are any more growths on your bladder that are causing issues. Your CT scan does not show any indication for why you are having blood in your urine today Return if you worsen. CT scan results 1. No renal stones identified. No hydronephrosis. No findings suspicious for malignancy. 2. Multiple compression fractures suggest severe osteoporosis. 3. A compression fracture of L1 may be subacute. It results in marked midportion vertebral body height loss, mild posterior bony retropulsion, and mild canal stenosis. 4. There is severe canal stenosis at L4-L5. 5. Extensive sigmoid diverticulosis without evidence of diverticulitis. 6. Prostate hypertrophy. 7. Left inguinal hernia containing fat. Discharge Date/Time: 04/06/20 14:35
[2020-04-06 13:07] LABS: INR 1.7 (0.8-1.2); PT - PROTHROMBIN TIME 18.9 secs (9.9-12.6)
[2020-04-06 13:09] LABS: RBC,URINE TNTC /HPF (0-5); SQUAMOUS EPITHELIAL CELL,UR NONE SEEN (<= Few)
[2020-04-06 13:10] LABS: BACTERIA,URINE Few /HPF (None Seen)
[2020-04-06 13:14] LABS: PARTIAL THROMBOPLASTIN TIME 37.9 secs (24.9-33.3)
[2020-04-06] MEDS ORDERED: IOVERSOL 320 100 ML VIAL IVP ONE ×2 (13:23→15:19)
--- NOTE | 2020-04-06 14:11 | CT Report ---
PROCEDURE: Abdomen/Pelvis W INDICATIONS: painless hematuria CONTRAST: IV CONTRAST: Optiray 320 ml: 100 PO CONTRAST: *NO PO CONTRAST TECHNIQUE: After the administration of oral and intravenous contrast, 5 mm thick sections acquired from the diap hragms to the symphysis. 5 mm thick coronal and sagittal reformats were acquired. For radiation dos e reduction, the following was used: automated exposure control, adjustment of mA and/or kV accordin g to patient size. COMPARISON: None. FINDINGS: Image quality: Excellent. ABDOMEN: Lung bases: Lung bases are clear. Incidental 3 mm pulmonary nodule, right lung base, image 9/41. Hea rt size is normal. Pacemaker. Solid organs: Liver and spleen are normal in size and enhancement. Probable tiny liver hemangioma ne ar the dome of the diaphragm on image 9/3. Numerous tiny calcifications in the spleen are consistent with chronic splenic granulomata. Gallbladder contains numerous gallstones. No gallbladder wall thick ening or fluid around the gallbladder. Biliary system is non dilated. Pancreas enhances normally. No adrenal nodules. Kidneys demonstrate normal size and enhancement, without hydronephrosis. No obvi ous renal stones. No renal masses identified. Peritoneum and bowel: Bowel loops demonstrate normal wall thickness and caliber. No free fluid or a ir. Extensive sigmoid diverticulosis without evidence of diverticulitis. Nodes and vessels: No retroperitoneal or mesenteric adenopathy by size criteria. Aorta and inferior vena cava are normal in size. Miscellaneous: No ventral hernias. PELVIS: Genitourinary: Bladder wall thickness is normal. Prostate is enlarged. Miscellaneous: Left inguinal hernia containing fat. No inguinal adenopathy. Bones: No suspicious bony lesions. There is a severe compression fracture of L1 with fracture extend ing through the superior and inferior endplates and marked midbody vertebral body height loss. There is associated bony retropulsion measuring proximally 6 mm and mild canal stenosis. This fracture may be subacute. There are old compressions of L2 and L4. There is severe multifactorial canal stenosis a t L4-L5. IMPRESSION: 1. No renal stones identified. No hydronephrosis. No findings suspicious for malignancy. 2. Multiple compression fractures suggest severe osteoporosis. 3. A compression fracture of L1 may be subacute. It results in marked midportion vertebral body heigh t loss, mild posterior bony retropulsion, and mild canal stenosis. 4. There is severe canal stenosis at L4-L5. 5. Extensive sigmoid diverticulosis without evidence of diverticulitis. 6. Prostate hypertrophy. 7. Left inguinal hernia containing fat. Reviewed by: Paul Epps MD on 04/06/2020 1:10 PM AKCHRISTIN Approved by: Paul Epps MD on 04/06/2020 1:10 PM AKCHRISTIN Station ID: [id number]
== END 2020-04-06 14:35 | disposition home or self-care (01) ==
LOC: ED 12:10
DX: R31.0 Gross hematuria (principal); Z79.01 Long term (current) use of anticoagulants; I48.20 Chronic atrial fibrillation, unspecified; Z95.0 Presence of cardiac pacemaker; N40.1 Benign prostatic hyperplasia with lower urinary tract symptoms; R35.1 Nocturia; E11.9 Type 2 diabetes mellitus without complications; Z79.84 Long term (current) use of oral hypoglycemic drugs
CPT/HCPCS: 36415; 74177; 80053; 81001; 85025; 85610; 85730; 99284; Q9967; 81003; 87086

== ENCOUNTER 2021-02-01 09:34 | Emergency (ER) | payer MEDICARE, OTHER ==
[2021-02-01] MEDS ORDERED: ONDANSETRON 4 MG/2 ML VIAL IVP STA ×2 (09:55→10:42)
--- NOTE | 2021-02-01 10:11 | ED Physician Documentation ---
History of Present Illness - Stated complaint Stated Complaint: NAUSEA/WEAKNESS - Chief complaint Chief Complaint: General - History obtained from History obtained from: Patient - History of Present Illness Timing: Last night Pain level max: 8 Pain level now: 8 - Additonal information Additional information: 85-year-old male presents to the emergency department with nausea vomiting and right-sided headache since last night. He states his right eye has had blurred vision as well. States has a history of glaucoma in the left eye, but not the right eye. Uses Cosopt eyedrops in the left eye. Has had cataract surgery in the past. Nothing makes this better or worse. Review of Systems Constitutional: denies: Fever, Chills Respiratory: denies: Cough GI: denies: Vomiting, Diarrhea Skin: denies: Rash Musculoskeletal: denies: Neck pain, Back pain Neurologic: denies: Headache PD PAST MEDICAL HISTORY - Past Medical History Past Medical History: Yes Cardiovascular: Atrial fibrillation Respiratory: None Endocrine/Autoimmune: Type 2 diabetes GI: GERD : Benign prostate hypertrophy, Nocturia, Frequency HEENT: Chronic vision loss Psych: None Musculoskeletal: Chronic back pain Derm: None - Past Surgical History Past Surgical History: Yes Cardiovascular: Pacemaker - Present Medications Home Medications: Ambulatory Orders Medication Instructions Recorded Confirmed Bupropion HCl [Bupropion HCl Sr] 150 mg PO BID 08/07/14 07/19/19 Metformin HCl [Fortamet] 500 mg PO DAILY 08/07/14 07/19/19 Omeprazole 20 mg PO DAILY 08/07/14 07/19/19 dilTIAZem HCl [Diltiazem 24Hr ER 300 mg PO DAILY 07/19/19 07/19/19 (Cd)] acetaZOLAMIDE [Diamox] 250 mg PO Q6H #20 tablet 02/01/21 - Allergies Allergies/Adverse Reactions: Allergies Allergy/AdvReac Type Severity Reaction Status Date / Time oxycodone HCl * Allergy Unknown Unknown Verified 02/01/21 10:02 [From Percet] - Social History Does the pt smoke?: No Smoking Status: Never smoker Does the pt drink ETOH?: No Does the pt have substance abuse?: No - Immunizations Immunizations are current?: Yes - POLST Patient has POLST: No PD ED PE NORMAL - Vitals Vital signs reviewed: Yes - General General: Alert and oriented X 3, No acute distress - HEENT HEENT: Moist mucous membranes, Other (Right eye conjunctiva is injected. There is mild clouding of the cornea. Intraocular pressure is 47-50 on multiple measurements. Left eye pressure is about 25-28.) - Neck Neck: Supple, no meningeal sign - Cardiac Cardiac: RRR, Strong equal pulses - Respiratory Respiratory: No respiratory distress, Clear bilaterally - Abdomen Abdomen: Soft, Non tender, Non distended - Derm Derm: Warm and dry - Neuro Neuro: Alert and oriented X 3, campus ambassador 2-12 intact, No motor deficit, No sensory deficit, Normal speech Results - Vitals Vitals: Vital Signs - 24 hr 02/01/21 02/01/21 02/01/21 09:55 10:33 11:55 Temperature 36.9 C Heart Rate 69 75 70 Respiratory 18 17 19 Rate Blood Pressure 152/79 H 159/98 H 151/79 H O2 Saturation 96 96 97 Oxygen O2 Source Room air - Labs Labs: Laboratory Tests 02/01/21 02/01/21 02/01/21 10:07 10:07 10:45 WBC 10.4 RBC 4.52 L Hgb 14.9 Hct 43.4 MCV 96.0 H MCH 33.0 H MCHC 34.3 RDW 12.8 Plt Count 227 MPV 10.0 Neut # (Auto) 8.3 H Lymph # (Auto) 1.0 L [place] # (Auto) 0.8 Eos # (Auto) 0.1 Baso # (Auto) 0.1 Absolute Nucleated RBC 0.00 Nucleated RBC % 0.0 Sodium 136 Potassium 3.4 L Chloride 101 Carbon Dioxide 24 Anion Gap 11.0 BUN 9 Creatinine 0.6 Estimated GFR (MDRD) 128 Glucose 145 H Calcium 9.2 Total Bilirubin 0.8 AST 20 ALT 21 Alkaline Phosphatase 51 Total Protein 8.1 Albumin 4.1 Globulin 4.0 Albumin/Globulin Ratio 1.0 Lipase 36 Nasal Adenovirus (PCR) NOT DETECTED Nasal B. parapertussis DNA (PCR) NOT DETECTED Nasal Coronavir 229E PCR NOT DETECTED Nasal Coronavir HKU1 PCR NOT DETECTED Nasal Coronavir NL63 PCR NOT DETECTED Nasal Coronavir OC43 PCR NOT DETECTED Nasal Enterovir/Rhinovir PCR NOT DETECTED Nasal Influenza B PCR NOT DETECTED Nasal Influenza A PCR NOT DETECTED Nasal Parainfluen 1 PCR NOT DETECTED Nasal Parainfluen 2 PCR NOT DETECTED Nasal Parainfluen 3 PCR NOT DETECTED Nasal Parainfluen 4 PCR NOT DETECTED Nasal RSV (PCR) NOT DETECTED Nasal B.pertussis DNA PCR NOT DETECTED Nasal C.pneumoniae (PCR) NOT DETECTED Guilherme Human Metapneumo PCR NOT DETECTED Nasal M.pneumoniae (PCR) NOT DETECTED Nasal SARS-CoV-2 (PCR) NOT DETECTED PD MEDICAL DECISION MAKING - ED course Complexity details: reviewed results, re-evaluated patient, considered differential, d/w patient, d/w applications development consultant ED course: Discussed the case with Dr. Ruff, ophthalmology on-call. Patient was given Cosopt eyedrops, pilocarpine eyedrops and apraclonidine eyedrops. Was also given Diamox orally. On recheck of the patient's pressures, the intraocular pressures were down to 15-17 in the right eye. The redness had decreased and he states that his vision was nearly back to normal. Dr. Ruff states that the patient can be discharged on Diamox 250 mg p.o. every 6 hours and he will see him in the office in the morning and we also have the patient use his glaucoma drops in both eyes until he sees Dr. Ruff tomorrow. Headache, nausea, vomiting all resolved with resolution of the pressure. Patient counseled regarding signs and symptoms for which I believe and urgent re-evaluation would be necessary. Patient with good understanding of and agreement to plan and is comfortable going home at this time This document was made in part using voice recognition software. While efforts are made to proofread this document, sound alike and grammatical errors may occur. 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 Stay on the acetazolamide every [address] see Dr[address] Ruff in the morning Discharge Date/Time: 02/01/21 12:20
[2021-02-01 10:13] LABS: BASOPHILS # (AUTO) 0.1 10^3/uL (0.0-0.1); BASOPHILS % (AUTO) 0.8 %; EOSINOPHILS # (AUTO) 0.1 10^3/uL (0.0-0.7); EOSINOPHILS % (AUTO) 1.3 %; HCT - HEMATOCRIT 43.4 % (42.0-52.0); HGB - HEMOGLOBIN 14.9 g/dL (14.0-18.0); LYMPHOCYTES % (AUTO) 9.8 %; MEAN CORPUSCULAR HGB CONC 34.3 g/dL (32.0-36.0); MONOCYTES # (AUTO) 0.8 10^3/uL (0.0-1.0); MONOCYTES % (AUTO) 7.4 %; NEUTROPHILS # (AUTO) 8.3 10^3/uL (1.5-6.6); NEUTROPHILS % (AUTO) 79.6 %; PLT - PLATELET COUNT 227 10^3/uL (130-450); RED BLOOD COUNT 4.52 10^6/uL (4.70-6.10); RED CELL DISTRIBUTION WIDTH 12.8 % (12.0-15.0); WHITE BLOOD COUNT 10.4 x10^3/uL (4.8-10.8)
[2021-02-01] MEDS ORDERED: DORZOLAMIDE/TIMOLOL OPHTH DROPS RIGHTEYE STA (10:15)
[2021-02-01] MEDS ORDERED: APRACLONIDINE 0.5% RIGHTEYE STA (10:16)
[2021-02-01] MEDS ORDERED: PILOCARPINE 1% OPHTH DROPS RIGHTEYE ONE (10:16)
--- NOTE | 2021-02-01 10:27 | CT Report ---
PROCEDURE: HEAD WO INDICATIONS: headache, vomiting TECHNIQUE: Noncontrast 4.5 mm thick angled axial sections acquired from the foramen magnum to the vertex. For r adiation dose reduction, the following was used: automated exposure control, adjustment of mA and/or kV according to patient size. COMPARISON: 04/18/2017 FINDINGS: Image quality: Excellent. CSF spaces: Basal cisterns are patent. No extra-axial fluid collections. Ventricles are normal in size and shape. Brain: No midline shift. No intracranial masses or hemorrhage. Chavira-white matter interface is norm al. A dense focus of calcification can be seen involving the left frontal lobe medially, as on serie s 3 images 18 and 19. This is stable compared to 2017. Skull and face: Calvarium and visualized facial bones are intact, without suspicious lesions. Sinuses: Visualized sinuses and mastoids are clear. IMPRESSION: A cause of headache cannot be seen on these images. No significant intracranial abnormality is seen. Dense focus of calcification involving the left frontal lobe. This is considered to be benign and is stable compared to 2017. Please consider prior infection versus trauma. Reviewed by: Mohan Patterson MD on 02/01/2021 9:26 AM EUN Approved by: Moahn Patterson MD on 02/01/2021 9:26 AM EUN Station ID: [id number]
[2021-02-01 10:28] LABS: ALBUMIN 4.1 g/dL (3.2-5.5); BILIRUBIN,TOTAL 0.8 mg/dL (0.2-1.0); CALCIUM 9.2 mg/dL (8.5-10.3); CREATININE 0.6 mg/dL (0.6-1.2); POTASSIUM 3.4 mmol/L (3.5-5.0); TOTAL PROTEIN 8.1 g/dL (6.7-8.2)
--- OUTSIDE RECORDS SUMMARY | 2021-02-01 10:32 | EXTERNAL MEDICAL SUMMARY RPT | Continuity of Care Document ---
:1935 Demographics Phone Unavailable Preferred Language Unknown Marital Status Unknown Spiritism Affiliation Unknown Race Unknown Ethnic Group Unknown Author Organization [place] Address [address] [id number] Phone Social History date description facility [id number]
[2021-02-01 11:55] VITALS: BP 151/79
[2021-02-01] MEDS ORDERED: PROMETHAZINE 25 MG TABLET PO STA (11:56)
[2021-02-01 11:58] LABS: B. PARAPERTUSSIS- RESP PCR PAN NOT DETECTED; B. PERTUSSIS- RESP PCR PANEL NOT DETECTED; C. PNEUMONIAE- RESP PCR PANEL NOT DETECTED; CORONAVIRUS 229E-RESP PCR NOT DETECTED; CORONAVIRUS HKU1-RESP PCR NOT DETECTED; CORONAVIRUS NL63-RESP PCR NOT DETECTED; CORONAVIRUS OC43-RESP PCR NOT DETECTED; HUMAN METAPNEUMOVIRUS NOT DETECTED; INFLUENZA A- RESP PCR PANEL NOT DETECTED; INFLUENZA B - RESP PCR PANEL NOT DETECTED; M. PNEUMONIAE- RESP PCR PANEL NOT DETECTED; PARAINFLUENZA VIRUS 1 NOT DETECTED; PARAINFLUENZA VIRUS 2 NOT DETECTED; PARAINFLUENZA VIRUS 3 NOT DETECTED; PARAINFLUENZA VIRUS 4 NOT DETECTED; RHINOVIRUS/ENTEROVIRUS NOT DETECTED; RSV- RESP PCR PANEL NOT DETECTED; SARS-CoV-2 -RESP PCR PANEL NOT DETECTED
== END 2021-02-01 12:20 | disposition home or self-care (01) ==
LOC: ED 09:34
DX: H40.211 Acute angle-closure glaucoma, right eye (principal); Z20.822 Contact with and (suspected) exposure to COVID-19; E11.9 Type 2 diabetes mellitus without complications; Z79.84 Long term (current) use of oral hypoglycemic drugs
CPT/HCPCS: 36415; 70450; 80053; 83690; 85025; 87631; 96374; 99284; A9270; Q0169; 0202U

== ENCOUNTER 2021-09-29 09:45 | Emergency (ER) | payer MEDICARE, OTHER ==
[2021-09-29] MEDS ORDERED: KETOROLAC 60 MG/2 ML VIAL IM STA (10:38)
[2021-09-29] MEDS ORDERED: HYDROmorphone 1 MG/ML CARPUJECT IM STA (10:38)
[2021-09-29] MEDS ORDERED: ONDANSETRON ODT 4 MG TABLET TL STA (10:38)
--- NOTE | 2021-09-29 10:40 | ED Physician Documentation ---
PD HPI BACK PAIN - Stated complaint Stated Complaint: FALL/BACK PX - Chief complaint Chief Complaint: Back Pain - History obtained from History obtained from: Patient - Additional information Additional information: He fell and hurt his back yesterday morning. He thinks he hit his back first while walking in a field with his dog. He has severe back pain present at rest but worse with motion. No other injuries. Denies weakness, numbness, tingling, saddle anesthesia. He has tried heat and cold for the pain which have not been helpful. Review of Systems Constitutional: reports: Reviewed and negative Eyes: reports: Reviewed and negative Ears: reports: Reviewed and negative Cardiac: reports: Reviewed and negative Respiratory: reports: Reviewed and negative PD PAST MEDICAL HISTORY - Past Medical History Cardiovascular: Atrial fibrillation Respiratory: None Endocrine/Autoimmune: Type 2 diabetes GI: GERD : Benign prostate hypertrophy, Nocturia, Frequency HEENT: Chronic vision loss Psych: None Musculoskeletal: Chronic back pain Derm: None - Past Surgical History Past Surgical History: Yes Cardiovascular: Pacemaker - Present Medications Home Medications: Ambulatory Orders Medication Instructions Recorded Confirmed Bupropion HCl [Bupropion HCl Sr] 150 mg PO BID 08/07/14 07/19/19 Metformin HCl [Fortamet] 500 mg PO DAILY 08/07/14 07/19/19 Omeprazole 20 mg PO DAILY 08/07/14 07/19/19 dilTIAZem HCl [Diltiazem 24Hr ER 300 mg PO DAILY 07/19/19 07/19/19 (Cd)] acetaZOLAMIDE [Diamox] 250 mg PO Q6H #20 tablet 02/01/21 HYDROcod/ACETAM 5/325 [[place] 5/325] 1 - 2 tab PO Q6H PRN #20 tablet 09/29/21 Lidocaine Patch 5% [Lidoderm Patch] 1 patch TOP DAILY PRN #10 patch 09/29/21 Meloxicam [Mobic] 7.5 mg PO BID PRN #7 tablet 09/29/21 - Allergies Allergies/Adverse Reactions: Allergies Allergy/AdvReac Type Severity Reaction Status Date / Time oxycodone HCl * Allergy Unknown Unknown Verified 09/29/21 10:04 [From [employer]] - Social History Does the pt smoke?: No Smoking Status: Never smoker Does the pt drink ETOH?: No Does the pt have substance abuse?: No - Immunizations Immunizations are current?: Yes - POLST Patient has POLST: No PD ED PE NORMAL - Vitals Vital signs reviewed: Yes - General General: Alert and oriented X 3, Other (He is in severe pain with motion and it is difficult for him to even roll on his side) - Neck Neck: Supple, no meningeal sign, No bony TTP, C-Spine cleared by NEXUS criteria - Abdomen Abdomen: Normal bowel sounds, Soft, Non tender - Back Back: Other (Tenderness around L3) - Derm Derm: Normal color, Warm and dry - Extremities Extremities: Other (The patient has equal and normal Achilles and patellar reflexes bilaterally. Normal sensation in all areas of the legs. Patient denies saddle anesthesia. Normal strength in flexion-extension at the ankles, knees, and flexion of the hips.) - Neuro Neuro: Alert and oriented X 3, Normal speech Results - Vitals Vitals: Vital Signs - 24 hr 09/29/21 09:57 Temperature 36.5 C Heart Rate 72 Respiratory 16 Rate Blood Pressure 118/72 O2 Saturation 99 Oxygen O2 Source Room air - Labs Labs: Laboratory Tests 09/29/21 09/29/21 09/29/21 12:21 12:21 12:21 WBC 10.4 RBC 4.51 L Hgb 14.6 Hct 42.4 MCV 94.0 MCH 32.4 H MCHC 34.4 RDW 13.3 Plt Count 212 MPV 10.0 Neut # (Auto) 7.4 H Lymph # (Auto) 1.5 [place] # (Auto) 1.1 H Eos # (Auto) 0.1 Baso # (Auto) 0.1 Absolute Nucleated RBC 0.00 Nucleated RBC % 0.0 PT 22.3 H INR 2.0 H Sodium 136 Potassium 3.6 Chloride 105 Carbon Dioxide 20 L Anion Gap 11.0 BUN 10 Creatinine 0.8 Estimated GFR (MDRD) 92 Glucose 96 Calcium 8.7 Nasal Adenovirus (PCR) Nasal B. parapertussis DNA (PCR) Nasal Coronavir 229E PCR Nasal Coronavir HKU1 PCR Nasal Coronavir NL63 PCR Nasal Coronavir OC43 PCR Nasal Enterovir/Rhinovir PCR Nasal Influenza B PCR Nasal Influenza A PCR Nasal Parainfluen 1 PCR Nasal Parainfluen 2 PCR Nasal Parainfluen 3 PCR Nasal Parainfluen 4 PCR Nasal RSV (PCR) Nasal B.pertussis DNA PCR Nasal C.pneumoniae (PCR) Guilherme Human Metapneumo PCR Nasal M.pneumoniae (PCR) Nasal SARS-CoV-2 (PCR) 09/29/21 12:36 WBC RBC Hgb Hct MCV MCH MCHC RDW Plt Count MPV Neut # (Auto) Lymph # (Auto) [place] # (Auto) Eos # (Auto) Baso # (Auto) Absolute Nucleated RBC Nucleated RBC % PT INR Sodium Potassium Chloride Carbon Dioxide Anion Gap BUN Creatinine Estimated GFR (MDRD) Glucose Calcium Nasal Adenovirus (PCR) NOT DETECTED Nasal B. parapertussis DNA (PCR) NOT DETECTED Nasal Coronavir 229E PCR NOT DETECTED Nasal Coronavir HKU1 PCR NOT DETECTED Nasal Coronavir NL63 PCR NOT DETECTED Nasal Coronavir OC43 PCR NOT DETECTED Nasal Enterovir/Rhinovir PCR NOT DETECTED Nasal Influenza B PCR NOT DETECTED Nasal Influenza A PCR NOT DETECTED Nasal Parainfluen 1 PCR NOT DETECTED Nasal Parainfluen 2 PCR NOT DETECTED Nasal Parainfluen 3 PCR NOT DETECTED Nasal Parainfluen 4 PCR NOT DETECTED Nasal RSV (PCR) NOT DETECTED Nasal B.pertussis DNA PCR NOT DETECTED Nasal C.pneumoniae (PCR) NOT DETECTED Guilherme Human Metapneumo PCR NOT DETECTED Nasal M.pneumoniae (PCR) NOT DETECTED Nasal SARS-CoV-2 (PCR) NOT DETECTED - Rads (name of study) CT lumbar Radiology: EMP read contemporaneously PD MEDICAL DECISION MAKING - ED course ED course: 85-year-old gentleman sustained a ground-level fall yesterday with severe low back pain. Lumbar spine CT showing an L1 fracture to which to my I did have some retropulsion into the spinal canal but he is neuro intact on examination. After some delay this case was discussed by phone with Yosef neurosurgery at [facility] was able to view some old images and noted that this fracture is old and was seen on prior images as far back as 2018 and therefore needed nothing other than pain management. Departure - Departure Disposition: 01 Home, Self Care Clinical Impression: Compression fracture of L1 lumbar vertebra Qualifiers: Encounter type: initial encounter Qualified Code(s): S32.010A - Wedge compression fracture of first lumbar vertebra, initial encounter for closed fracture Condition: Good Instructions: ED Fx Comp Vertebral Prescriptions: Lidocaine Patch 5% [Lidoderm Patch] 1 patch TOP DAILY PRN #10 patch PRN Reason: pain Meloxicam [Mobic] 7.5 mg PO BID PRN #7 tablet PRN Reason: Pain HYDROcod/ACETAM 5/325 [[place] 5/325] 1 - 2 tab PO Q6H PRN #20 tablet PRN Reason: Pain Comments: Your prescription was sent electronically to the [facility] pharmacy at the corner of [facility] [address] [facility] [address] and [address] [address] here in [place]. As discussed, the fracture we saw today is old dating back to 2018. You should follow-up with your physician and consider physical therapy. Otherwise return for new or worsening symptoms. I am prescribing a short course of narcotic pain medication for you. These are potentially dangerous and addictive medications that should be used carefully. These medications may constipate you. Take an hjhk-nza-yqmtuwb stool softener (docusate) twice daily with plenty of water while taking these medications. If you go 24 hours without a bowel movement, take cxml-xnn-ycqmnhy miralax, per package instructions. Do not drink or drive while taking these medications. If you received narcotic or sedating medications while in the emergency department, do not drive for 24 hours. Store this medication in a safe, secure place and out of reach of children. It is a violation of federal law to give or sell this medication to another person or to use in a manner other than prescribed. The ED will not refill narcotic prescriptions, including prescriptions lost or stolen. To dispose of unwanted medications: 1. [facility] at [address] [place] [address] in [place] has a medication drop box. They accept prescription medications (in pill form) Tuesday through Tuesday 9:00 a.m. to 5:00 p.m. 2. The [facility] accepts prescription medications (in pill form only) for disposal year round. Call for more information. 3. Contact the [facility] for the next [facility] sponsored prescription drug collection event. , [phone], or [phone]; Note that many narcotic pain relievers also contain Tylenol/acetaminophen. P lease ensure that your total dose of acetaminophen from all sources does not exceed 3 g (3000 mg) per day.
[2021-09-29 12:33] LABS: BASOPHILS # (AUTO) 0.1 10^3/uL (0.0-0.1); BASOPHILS % (AUTO) 0.9 %; EOSINOPHILS # (AUTO) 0.1 10^3/uL (0.0-0.7); EOSINOPHILS % (AUTO) 1.3 %; HCT - HEMATOCRIT 42.4 % (42.0-52.0); HGB - HEMOGLOBIN 14.6 g/dL (14.0-18.0); LYMPHOCYTES # (AUTO) 1.5 10^3/uL (1.5-3.5); LYMPHOCYTES % (AUTO) 14.1 %; MEAN CORPUSCULAR HEMOGLOBIN 32.4 pg (27.0-31.0); MEAN CORPUSCULAR HGB CONC 34.4 g/dL (32.0-36.0); MONOCYTES # (AUTO) 1.1 10^3/uL (0.0-1.0); MONOCYTES % (AUTO) 10.7 %; NEUTROPHILS # (AUTO) 7.4 10^3/uL (1.5-6.6); NEUTROPHILS % (AUTO) 71.6 %; PLT - PLATELET COUNT 212 10^3/uL (130-450); RED BLOOD COUNT 4.51 10^6/uL (4.70-6.10); RED CELL DISTRIBUTION WIDTH 13.3 % (12.0-15.0); WHITE BLOOD COUNT 10.4 x10^3/uL (4.8-10.8)
--- NOTE | 2021-09-29 12:34 | CT Report ---
PROCEDURE: LUMBAR SPINE WO INDICATIONS: Back injury TECHNIQUE: Noncontrast 3 mm thick sections acquired from the T12 level to the sacrum. Sagittal and coronal refo rmats were constructed. For radiation dose reduction, the following was used: automated exposure co ntrol, adjustment of mA and/or kV according to patient size. COMPARISON: 04/06/2020 CT abdomen and pelvis FINDINGS: There is new compression deformity of the L3 vertebral body with approximately 20% height loss centra lly an 10% height loss. There subtle bowing of the posterior cortex results in only 2 mm of osseous r etropulsion. Chronic compression fracture deformities at L4, L2, and L1 appear similar. Anterolisthesis of L4 on L 5 and retrolisthesis of L2 on L3 also similar. Retropulsion of the dominant fracture fragment at L1 i s similar, again with approximately 6 mm retroareolar retropulsion producing pmik-ab-qscmoxxj spinal canal stenosis. Varying degrees of neural foraminal narrowing appears similar. IMPRESSION: New L3 compression fracture with approximately 20% height loss. The patient may be a candidate for vertebroplasty/kyphoplasty. Consider interventional radiology refe rral. Cholelithiasis and aortic atherosclerosis again noted. Reviewed by: Sonny Perez MD on 09/29/2021 12:33 PM PST Approved by: Sonny Perez MD on 09/29/2021 12:33 PM PST Station ID: [id number]
[2021-09-29 12:42] LABS: POTASSIUM 3.6 mmol/L (3.5-5.0)
[2021-09-29 12:43] LABS: CALCIUM 8.7 mg/dL (8.5-10.3); CREATININE 0.8 mg/dL (0.6-1.2); PT - PROTHROMBIN TIME 22.3 secs (9.9-12.6)
[2021-09-29 14:08] LABS: B. PARAPERTUSSIS- RESP PCR PAN NOT DETECTED; B. PERTUSSIS- RESP PCR PANEL NOT DETECTED; C. PNEUMONIAE- RESP PCR PANEL NOT DETECTED; CORONAVIRUS 229E-RESP PCR NOT DETECTED; CORONAVIRUS HKU1-RESP PCR NOT DETECTED; CORONAVIRUS NL63-RESP PCR NOT DETECTED; CORONAVIRUS OC43-RESP PCR NOT DETECTED; HUMAN METAPNEUMOVIRUS NOT DETECTED; INFLUENZA A- RESP PCR PANEL NOT DETECTED; INFLUENZA B - RESP PCR PANEL NOT DETECTED; M. PNEUMONIAE- RESP PCR PANEL NOT DETECTED; PARAINFLUENZA VIRUS 1 NOT DETECTED; PARAINFLUENZA VIRUS 2 NOT DETECTED; PARAINFLUENZA VIRUS 3 NOT DETECTED; PARAINFLUENZA VIRUS 4 NOT DETECTED; RHINOVIRUS/ENTEROVIRUS NOT DETECTED; RSV- RESP PCR PANEL NOT DETECTED; SARS-CoV-2 -RESP PCR PANEL NOT DETECTED
[2021-09-29 14:13] VITALS: BP 123/77
== END 2021-09-29 14:28 | disposition home or self-care (01) ==
LOC: ED 09:45
DX: S32.010A Wedge compression fracture of first lumbar vertebra, initial encounter for closed fracture (principal); W19.XXXA Unspecified fall, initial encounter; Y93.K1 Activity, walking an animal; Y92.89 Other specified places as the place of occurrence of the external cause; E11.9 Type 2 diabetes mellitus without complications; Z79.84 Long term (current) use of oral hypoglycemic drugs; Z95.0 Presence of cardiac pacemaker; I48.91 Unspecified atrial fibrillation; Z20.822 Contact with and (suspected) exposure to COVID-19
CPT/HCPCS: 36415; 72131; 80048; 85025; 85610; 87631; 96372; 99284; J1170; Q0162; 0202U

== ENCOUNTER 2021-12-30 12:16 | Outpatient (CLI) | payer MEDICARE, OTHER ==
[2021-12-30] MEDS ORDERED: IOVERSOL 320 50 ML VIAL ONE (12:33)
[2021-12-30] MEDS ORDERED: IOVERSOL 320 100 ML VIAL IVP ONE ×2 (12:33→14:03)
[2021-12-30] MEDS ORDERED: IOVERSOL 320 50 ML VIAL PO ONE (14:03)
--- NOTE | 2021-12-30 15:09 | CT Report ---
PROCEDURE: Abdomen/Pelvis W INDICATIONS: WEIGHT LOSS, DECREASED APPETITE CONTRAST: IV CONTRAST: Optiray 320 ml: 100 PO CONTRAST: Optiray 320 ml50 TECHNIQUE: After the administration of oral and intravenous contrast, 5 mm thick sections acquired from the diap hragms to the symphysis. 5 mm thick coronal and sagittal reformats were acquired. For radiation dos e reduction, the following was used: automated exposure control, adjustment of mA and/or kV accordin g to patient size. COMPARISON: 04/06/2020 FINDINGS: Image quality: Excellent. ABDOMEN: Lung bases: Lung bases are clear. Left atrial enlargement. Pacemaker. Solid organs: Liver and splee n are normal in size and enhancement. Gallbladder is contracted around innumerable gallstones. There is gallbladder wall thickening. Biliary system is non dilated. Pancreas enhances normally. No adr enal nodules. Kidneys demonstrate normal size and enhancement, without hydronephrosis. Peritoneum and bowel: Extensive sigmoid diverticulosis without evidence of diverticulitis. Findings i nclude a segment of proximal to mid sigmoid colon with diffuse wall thickening. Cannot exclude underl jin neoplasm. No free fluid or air. Nodes and vessels: No retroperitoneal or mesenteric adenopathy by size criteria. Aorta and inferior vena cava are normal in size. Miscellaneous: No ventral hernias. PELVIS: Genitourinary: Bladder is decompressed resulting in mild wall prominence. Enlarged prostate. Miscellaneous: Fat-containing left inguinal hernia. No inguinal adenopathy. Bones: Numerous compression fractures. A severe L1 compression is old, as is an L2 compression and an L4 compression. Interval L3 moderate compression, possibly with a subacute component. IMPRESSION: 1. Extensive sigmoid diverticulosis. Cannot exclude underlying neoplasm. Recommend direct visualizati on utilizing endoscopy if the patient has not had a recent endoscopy. 2. Severe osteoporosis with numerous old compression fractures and interval compression of L3, possib ly subacute. 3. Left inguinal hernia. 4. Innumerable gallstones, gallbladder wall thickening. Consider chronic cholecystitis. 5. No evidence of metastatic disease. Reviewed by: Paul Epps MD on 12/30/2021 3:08 PM PDT Approved by: Paul Epps MD on 12/30/2021 3:08 PM PDT Station ID: [id number]
== END 2021-12-30 12:17 | disposition home or self-care (01) ==
LOC: LAB 12:16 → DI 12:17
PROVIDERS: ATTEND Internal Medicine
DX: K57.30 Diverticulosis of large intestine without perforation or abscess without bleeding (principal); M81.0 Age-related osteoporosis without current pathological fracture; M80.88XS Other osteoporosis with current pathological fracture, vertebra(e), sequela; K40.90 Unilateral inguinal hernia, without obstruction or gangrene, not specified as recurrent; K80.20 Calculus of gallbladder without cholecystitis without obstruction; R63.4 Abnormal weight loss
CPT/HCPCS: 36415; 74177; 82565; Q9967

== ENCOUNTER 2022-01-27 15:38 | Emergency (ER) | payer MEDICARE, OTHER ==
[2022-01-27 16:08] LABS: HCT - HEMATOCRIT 40.8 % (42.0-52.0); HGB - HEMOGLOBIN 14.2 g/dL (14.0-18.0); MEAN CORPUSCULAR HEMOGLOBIN 33.5 pg (27.0-31.0); MEAN CORPUSCULAR HGB CONC 34.8 g/dL (32.0-36.0); MEAN CORPUSCULAR VOLUME 96.2 fL (80.0-94.0); RED BLOOD COUNT 4.24 10^6/uL (4.70-6.10); WHITE BLOOD COUNT 10.3 x10^3/uL (4.8-10.8)
[2022-01-27 16:09] LABS: BASOPHILS % (AUTO) 1.5 %; EOSINOPHILS % (AUTO) 2.3 %; LYMPHOCYTES # (AUTO) 2.1 10^3/uL (1.5-3.5); LYMPHOCYTES % (AUTO) 20.1 %; MEAN PLATELET VOLUME 10.1 fL (7.4-11.4); MONOCYTES # (AUTO) 1.4 10^3/uL (0.0-1.0); NEUTROPHILS # (AUTO) 6.2 10^3/uL (1.5-6.6); NEUTROPHILS % (AUTO) 60.5 %; PLT - PLATELET COUNT 229 10^3/uL (130-450); RED CELL DISTRIBUTION WIDTH 13.3 % (12.0-15.0)
[2022-01-27 16:10] LABS: BASOPHILS # (AUTO) 0.2 10^3/uL (0.0-0.1); EOSINOPHILS # (AUTO) 0.2 10^3/uL (0.0-0.7)
[2022-01-27 16:18] LABS: CLARITY,URINE CLEAR (CLEAR); LEUKOCYTE ESTERASE, URINE NEGATIVE (NEGATIVE); NITRITE,URINE NEGATIVE (NEGATIVE); OCCULT BLOOD,URINE NEGATIVE (NEGATIVE); PROTEIN,URINE NEGATIVE (NEGATIVE); UROBILINOGEN,URINE 0.2 (NORMAL) E.U./dL (NORMAL)
[2022-01-27 16:19] LABS: BILIRUBIN,URINE NEGATIVE (NEGATIVE); GLUCOSE, URINE (UA) NEGATIVE (NEGATIVE); KETONES,URINE (UA) NEGATIVE (NEGATIVE)
--- NOTE | 2022-01-27 16:19 | ED Physician Documentation ---
History of Present Illness - Stated complaint Stated Complaint: SWOLLEN FEET AND LEGS - Chief complaint Chief Complaint: Ext Problem - Additonal information Additional information: 86-year-old male presents emergency department for evaluation of worsening lower extremity edema. He reports symptoms began about 6 months ago. He denies any has any chest pain or shortness of air but this morning he noted that there was some weeping on the back of his left leg which prompted concern and brings him to the ER. Past medical history is most significant for atrial fibrillation for which she does have a pacemaker in place. He is also on Xarelto. Patient denies any cough or hemoptysis. He is attended by a field marketing team leader Dr. Corbin in [place] though he has not seen them for quite some time. Meds: Metformin, diltiazem, omeprazole, bupropion, Xarelto Review of Systems Constitutional: denies: Fever Nose: reports: Reviewed and negative Throat: reports: Reviewed and negative Cardiac: reports: Pedal edema Respiratory: reports: Reviewed and negative GI: reports: Reviewed and negative : reports: Reviewed and negative Skin: denies: Rash, Lesions, Abrasion (s) Musculoskeletal: reports: Reviewed and negative Neurologic: reports: Reviewed and negative Psychiatric: reports: Reviewed and negative PD PAST MEDICAL HISTORY - Past Medical History Cardiovascular: Atrial fibrillation Respiratory: None Endocrine/Autoimmune: Type 2 diabetes GI: GERD : Benign prostate hypertrophy, Nocturia, Frequency HEENT: Chronic vision loss Psych: None Musculoskeletal: Chronic back pain Derm: None - Past Surgical History Past Surgical History: Yes Cardiovascular: Pacemaker - Present Medications Home Medications: Ambulatory Orders Medication Instructions Recorded Confirmed Bupropion HCl [Bupropion HCl Sr] 150 mg PO BID 08/07/14 07/19/19 Metformin HCl [Fortamet] 500 mg PO DAILY 08/07/14 07/19/19 Omeprazole 20 mg PO DAILY 08/07/14 07/19/19 dilTIAZem HCl [Diltiazem 24Hr ER 300 mg PO DAILY 07/19/19 07/19/19 (Cd)] acetaZOLAMIDE [Diamox] 250 mg PO Q6H #20 tablet 02/01/21 HYDROcod/ACETAM 5/325 [[place] 5/325] 1 - 2 tab PO Q6H PRN #20 tablet 09/29/21 Lidocaine Patch 5% [Lidoderm Patch] 1 patch TOP DAILY PRN #10 patch 09/29/21 Meloxicam [Mobic] 7.5 mg PO BID PRN #7 tablet 09/29/21 Furosemide [Lasix] 20 mg PO DAILY #14 tablet 01/27/22 - Allergies Allergies/Adverse Reactions: Allergies Allergy/AdvReac Type Severity Reaction Status Date / Time oxycodone HCl * Allergy Unknown Unknown Verified 01/27/22 15:45 [From Percocet] - Social History Does the pt smoke?: No Smoking Status: Never smoker Does the pt drink ETOH?: No Does the pt have substance abuse?: No - Immunizations Immunizations are current?: Yes - POLST Patient has POLST: No PD ED PE EXPANDED - General General: Alert, No acute distress - Cardiac Cardiac: Murmur Present, Radial strong equal, Pedal strong equal, Cap refill < 2 sec, Other (Paced rhythm. Regular rate. Positive murmur) - Respiratory Respiratory: Clear to ausultation jung. No: Distress, Labored - Abdomen Abdomen: Normal Bowel sounds. No: Tender to palpation - Derm Derm: Normal color, Warm and dry. No: Rash - Extremities Extremities: Pedal edema bilateral (Moderate 2+ lower extremity edema bilaterally. Extends to the calfs. No erythema. Scant drainage posterior left calf.), Pedal Pulses Present. No: Left calf TTP/cord - Neuro Neuro: Alert and Oriented X 3, CNII-XII intact - GCS Eye Opening: Spontaneous Motor: Obeys Commands Verbal: Oriented Total: 15 Results - Vitals Vitals: Vital Signs - 24 hr 01/27/22 01/27/22 15:41 15:45 Temperature 36.2 C L 36.5 C Heart Rate 70 70 Respiratory 14 14 Rate Blood Pressure 119/75 119/75 O2 Saturation 99 99 Oxygen O2 Source Room air - EKG (time done) 1638 Rate: Rate (enter#) (70) Rhythm: Paced Compare to prior EKG: Unchanged from prior EKG Computer interpretation: Agree with computer (Paced atrial fib flutter. No other analysis attempted due to paced rhythm) - Labs Labs: Laboratory Tests 01/27/22 01/27/22 01/27/22 15:57 15:57 15:57 WBC 10.3 RBC 4.24 L Hgb 14.2 Hct 40.8 L MCV 96.2 H MCH 33.5 H MCHC 34.8 RDW 13.3 Plt Count 229 MPV 10.1 Neut # (Auto) 6.2 Lymph # (Auto) 2.1 [place] # (Auto) 1.4 H Eos # (Auto) 0.2 Baso # (Auto) 0.2 H Absolute Nucleated RBC 0.00 Nucleated RBC % 0.0 Sodium 135 Potassium 4.2 Chloride 103 Carbon Dioxide 23 Anion Gap 9.0 BUN 17 Creatinine 0.8 Estimated GFR (MDRD) 92 Glucose 93 Calcium 9.0 Total Bilirubin 0.9 AST 22 ALT 25 Alkaline Phosphatase 44 B-Natriuretic Peptide 472 H Total Protein 6.8 Albumin 3.5 Globulin 3.3 Albumin/Globulin Ratio 1.1 Lipase 53 H Urine Color Urine Clarity Urine pH Ur Specific [place] Urine Protein Urine Glucose (UA) Urine Ketones Urine Occult Blood Urine Nitrite Urine Bilirubin Urine Urobilinogen Ur Leukocyte Esterase Ur Microscopic Review Urine Culture Comments 01/27/22 16:07 WBC RBC Hgb Hct MCV MCH MCHC RDW Plt Count MPV Neut # (Auto) Lymph # (Auto) [place] # (Auto) Eos # (Auto) Baso # (Auto) Absolute Nucleated RBC Nucleated RBC % Sodium Potassium Chloride Carbon Dioxide Anion Gap BUN Creatinine Estimated GFR (MDRD) Glucose Calcium Total Bilirubin AST ALT Alkaline Phosphatase B-Natriuretic Peptide Total Protein Albumin Globulin Albumin/Globulin Ratio Lipase Urine Color YELLOW Urine Clarity CLEAR Urine pH 7.0 Ur Specific [place] 1.015 Urine Protein NEGATIVE Urine Glucose (UA) NEGATIVE Urine Ketones NEGATIVE Urine Occult Blood NEGATIVE Urine Nitrite NEGATIVE Urine Bilirubin NEGATIVE Urine Urobilinogen 0.2 (NORMAL) Ur Leukocyte Esterase NEGATIVE Ur Microscopic Review NOT INDICATED Urine Culture Comments NOT INDICATED - Rads (name of study) cxr Radiology: Final report received (No acute cardiopulmonary pathology) PD MEDICAL DECISION MAKING - ED course Complexity details: reviewed results, re-evaluated patient, considered d ifferential, d/w patient ED course: 86-year-old male presents emergency department for evaluation of 6 months of progressive lower extremity swelling. He began to have some mild weeping in his posterior calf this morning which prompted him to come to the ER. This gentleman does have a history of atrial fibrillation with rate control on diltiazem. He is anticoagulated on Xarelto. He is followed by field marketing team leader in [place]. He does report that recently he has been noticing increasing bouts of a flutter and palpitations. He has no previous history of heart failure however. He is denying chest pain or shortness of air. Screening chest x-ray was without findings to suggest volume overload but his BNP is mildly elevated at just over 400. He does have preserved renal function. I suspect that he has some mild heart failure in the setting of paroxysmal A. fib. Patient will be started on a short course of furosemide. Advise close follow-up with his primary care doctor as well as his field marketing team leader he likely would benefit from an echocardiogram as an outpatient. Emergent return precautions otherwise discussed Departure - Departure Disposition: Home, Self Care Clinical Impression: Swelling of both lower extremities, Elevated brain natriuretic peptide (BNP) le melissa Atrial fibrillation Qualifiers: Atrial fibrillation type: paroxysmal Qualified Code(s): I48.0 - Paroxysmal atrial fibrillation Condition: Stable Record reviewed to determine appropriate education?: Yes Instructions: Furosemide tablets Follow-Up: FREDDY THOMAS MD [Primary Care Provider] - Ravi Corbin MD [Physician No Access] - Prescriptions: Furosemide [Lasix] 20 mg PO DAILY #14 tablet Comments: Jonny you are seen today in the emergency department because you had swelling in your lower extremities for about 6 months it seems to be getting worse. Your x-ray looks good but your EKG does show atrial fibrillation. I suspect that the cause of your lower extremity swelling is some mild heart failure related to the atrial fibrillation. In order to help with this I would like you to fill the prescription for the Lasix also known as furosemide. Take once daily in the morning. This will make you pee more and over a period of time should help improve the swelling in the lower legs. Furosemide can cause your potassium levels to get too low. It is important you see your primary care doctor in 1 week to have your potassium levels rechecked to make sure you do not need any extra potassium. If you feel faint, weak or dizzy you are to return immediately to the ER. I do recommend that you contact your cardiology office for follow-up tomorrow. You should be seen in office and referred for an echocardiogram. Your furosemide has been sent to the [facility] in [place]
--- NOTE | 2022-01-27 16:35 | XRAY Report ---
PROCEDURE: Chest 1 View X-Ray INDICATIONS: leg swelling TECHNIQUE: One view of the chest was acquired. COMPARISON: None FINDINGS: Surgical changes and devices: Left chest wall pacemaker leads are in the region of right atrium and r ight ventricle. Lungs and pleura: No pleural effusions or pneumothorax. Lungs are clear. Mediastinum: Mediastinal contours appear normal. Heart size is normal. Bones and chest wall: No suspicious bony lesions. Overlying soft tissues appear unremarkable. IMPRESSION: No acute cardiopulmonary pathology. Reviewed by: Johny Resendez MD on 01/27/2022 4:33 PM PDT Approved by: Johny Resnedez MD on 01/27/2022 4:33 PM PDT Station ID: [id number]
[2022-01-27 17:00] LABS: BILIRUBIN,TOTAL 0.9 mg/dL (0.2-1.0); CREATININE 0.8 mg/dL (0.6-1.2); POTASSIUM 4.2 mmol/L (3.5-5.0)
[2022-01-27 17:01] LABS: ALBUMIN 3.5 g/dL (3.2-5.5); ALBUMIN/GLOBULIN RATIO 1.1 (1.0-2.2); TOTAL PROTEIN 6.8 g/dL (6.7-8.2)
[2022-01-27 17:24] VITALS: BP 122/64
== END 2022-01-27 17:26 | disposition home or self-care (01) ==
LOC: ED 15:38
DX: I48.0 Paroxysmal atrial fibrillation (principal); R79.89 Other specified abnormal findings of blood chemistry; R60.0 Localized edema; Z79.01 Long term (current) use of anticoagulants
CPT/HCPCS: 36415; 80053; 81001; 81003; 83690; 83880; 85025; 87086; 93005; 99283; 99284

== ENCOUNTER 2022-06-07 12:43 | Emergency (ER) | payer MEDICARE, OTHER ==
[2022-06-07 12:56] VITALS: BP 126/80
--- NOTE | 2022-06-07 12:56 | ED Physician Documentation ---
PD HPI WOUND RECHECK - Stated complaint Stated Complaint: SUTURE REMOVAL - Histroy obtained from History obtained from: Patient - History of Present Illness Pain level max: 0 Pain level now: 0 Associated symptoms: No: Fever, Redness, Swelling, Drainage, Pain - Additional information Additional information: 86-year-old male here for suture removal. Sutures were placed about 10 days ago. No redness, no swelling. No drainage. This was from a dog scratch. Patient has no complaints. PD PAST MEDICAL HISTORY - Past Medical History Cardiovascular: Atrial fibrillation Respiratory: None Endocrine/Autoimmune: Type 2 diabetes GI: GERD : Benign prostate hypertrophy, Nocturia, Frequency HEENT: Chronic vision loss Psych: None Musculoskeletal: Chronic back pain Derm: None - Past Surgical History Past Surgical History: Yes Cardiovascular: Pacemaker - Present Medications Home Medications: Ambulatory Orders Medication Instructions Recorded Confirmed Bupropion HCl [Bupropion HCl Sr] 150 mg PO BID 08/07/14 07/19/19 Metformin HCl [Fortamet] 500 mg PO DAILY 08/07/14 07/19/19 Omeprazole 20 mg PO DAILY 08/07/14 07/19/19 dilTIAZem HCl [Diltiazem 24Hr ER 300 mg PO DAILY 07/19/19 07/19/19 (Cd)] acetaZOLAMIDE [Diamox] 250 mg PO Q6H #20 tablet 02/01/21 HYDROcod/ACETAM 5/325 [[place] 5/325] 1 - 2 tab PO Q6H PRN #20 tablet 09/29/21 Lidocaine Patch 5% [Lidoderm Patch] 1 patch TOP DAILY PRN #10 patch 09/29/21 Meloxicam [Mobic] 7.5 mg PO BID PRN #7 tablet 09/29/21 Furosemide [Lasix] 20 mg PO DAILY #14 tablet 01/27/22 - Allergies Allergies/Adverse Reactions: Allergies Allergy/AdvReac Type Severity Reaction Status Date / Time oxycodone HCl * Allergy Unknown Unknown Verified 06/07/22 12:48 [From Percocet] - Social History Does the pt smoke?: No Smoking Status: Never smoker Does the pt drink ETOH?: No Does the pt have substance abuse?: No - Immunizations Immunizations are current?: Yes - POLST Patient has POLST: No PD ED PE NORMAL - Vitals Vital signs reviewed: Yes - General General: Alert and oriented X 3, No acute distress - Derm Derm: Warm and dry - Extremities Extremities: Other (Well-healed laceration to the left forearm. There is bruising around the area, no signs of infection) - Neuro Neuro: Alert and oriented X 3 Results - Vitals Vitals: Vital Signs - 24 hr 06/07/22 12:48 Temperature 36.5 C Heart Rate 80 Respiratory 16 Rate Blood Pressure 126/80 O2 Saturation 99 Oxygen O2 Source Room air Procedures - Suture/staple Removal (location) Left forearm, volar aspect Suture/staple removal: No complications, Other (all sutures removed) PD MEDICAL DECISION MAKING - ED course Complexity details: reviewed old records, considered differential, d/w patient ED course: All sutures were removed. Tolerated well. No signs of infection. This document was made in part using voice recognition software. While efforts are made to proofread this document, sound alike and grammatical errors may occur. Departure - Departure Disposition: 01 Home, Self Care Clinical Impression: Visit for suture removal Condition: Good Instructions: ED Wound Check Sutr Remove No Infec Comments: Please follow-up with your doctor as needed for further care. Your sutures were removed today. Return if you notice redness, swelling or drainage from the wound.
== END 2022-06-07 12:59 | disposition home or self-care (01) ==
LOC: ED 12:43
DX: Z48.02 Encounter for removal of sutures (principal)
CPT/HCPCS: 99281

== ENCOUNTER 2022-08-28 22:56 | Outpatient (CLI) | payer MEDICARE, OTHER | END 2022-08-28 22:57 | disposition critical access hospital (66) | LOC: EMS 22:56 | DX: S00.83XA Contusion of other part of head, initial encounter (principal); S20.219A Contusion of unspecified front wall of thorax, initial encounter; S30.1XXA Contusion of abdominal wall, initial encounter; S40.011A Contusion of right shoulder, initial encounter; S40.022A Contusion of left upper arm, initial encounter; S40.021A Contusion of right upper arm, initial encounter; S80.12XA Contusion of left lower leg, initial encounter; S80.11XA Contusion of right lower leg, initial encounter; W18.30XA Fall on same level, unspecified, initial encounter; Y93.01 Activity, walking, marching and hiking; Y92.008 Other place in unspecified non-institutional (private) residence as the place of occurrence of the external cause | CPT/HCPCS: A0425; A0427 ==

== ENCOUNTER 2022-08-28 22:59 | Emergency (ER) | payer MEDICARE, OTHER ==
[2022-08-28] MEDS ORDERED: iohexoL-300 100 ML VIAL ONE (23:17)
[2022-08-28] MEDS ORDERED: LIDOCAINE PATCH 5% TOP STA (23:19)
[2022-08-28 23:23] LABS: BASOPHILS # (AUTO) 0.1 10^3/uL (0.0-0.1); BASOPHILS % (AUTO) 0.5 %; EOSINOPHILS # (AUTO) 0.2 10^3/uL (0.0-0.7); EOSINOPHILS % (AUTO) 1.3 %; HCT - HEMATOCRIT 44.8 % (42.0-52.0); HGB - HEMOGLOBIN 15.7 g/dL (14.0-18.0); LYMPHOCYTES # (AUTO) 1.6 10^3/uL (1.5-3.5); LYMPHOCYTES % (AUTO) 10.5 %; MEAN CORPUSCULAR HEMOGLOBIN 32.9 pg (27.0-31.0); MEAN CORPUSCULAR VOLUME 93.9 fL (80.0-94.0); MEAN PLATELET VOLUME 10.4 fL (7.4-11.4); MONOCYTES # (AUTO) 1.6 10^3/uL (0.0-1.0); MONOCYTES % (AUTO) 10.8 %; NEUTROPHILS % (AUTO) 72.3 %; PLT - PLATELET COUNT 203 10^3/uL (130-450); RED BLOOD COUNT 4.77 10^6/uL (4.70-6.10); RED CELL DISTRIBUTION WIDTH 13.4 % (12.0-15.0); WHITE BLOOD COUNT 15.1 x10^3/uL (4.8-10.8)
[2022-08-28 23:32] LABS: INR 1.5 (0.8-1.2); PT - PROTHROMBIN TIME 16.8 secs (9.9-12.6)
[2022-08-28 23:33] LABS: ALBUMIN 3.1 g/dL (3.2-5.5); ALBUMIN/GLOBULIN RATIO 0.8 (1.0-2.2); BILIRUBIN,TOTAL 2.2 mg/dL (0.2-1.0); CALCIUM 8.5 mg/dL (8.5-10.3); CREATININE 0.9 mg/dL (0.6-1.2); POTASSIUM 3.7 mmol/L (3.5-5.0); TOTAL PROTEIN 6.8 g/dL (6.7-8.2)
[2022-08-28 23:48] LABS: DIFFERENTIAL COMMENT MANUAL=AUTO DIFF; PLATELET ESTIMATE, MANUAL NORMAL (130-450,000) (NORMAL); RBC MORPHOLOGY (MULTIPLE) NORMAL APPEARANCE (NORMAL)
[2022-08-29] MEDS ORDERED: iohexoL-300 100 ML VIAL IVP ONE (00:06)
--- NOTE | 2022-08-29 00:17 | CT Report ---
PROCEDURE: ABDOMEN/PELVIS W INDICATIONS: fall/pain/on xarelto CONTRAST: 100 ML OMNI 300 TECHNIQUE: After the administration of nonionic contrast, 5 mm thick sections acquired from the diaphragms to th e symphysis. 5 mm thick coronal and sagittal reformats were acquired. For radiation dose reduction, the following was used: automated exposure control, adjustment of mA and/or kV according to patient size. COMPARISON: 12/30/[address] FINDINGS: Image quality: Excellent. ABDOMEN: Lung bases: Lung bases are clear. Heart size is normal. Solid organs: Liver and spleen are normal in size and enhancement. Gallbladder contains multiple fa intly calcified gallstones, moderate in size, without definite evidence of associated biliary obstruc tion or acute cholecystitis. Biliary system is non dilated. Pancreas enhances normally. No adrenal nodules. Kidneys demonstrate normal size and enhancement, without hydronephrosis. Peritoneum and bowel: Bowel loops demonstrate normal wall thickness and caliber. No free fluid or a ir. Nodes and vessels: No retroperitoneal or mesenteric adenopathy by size criteria. Aorta and inferior vena cava are normal in size. Miscellaneous: No ventral hernias. PELVIS: Genitourinary: Bladder wall thickness is normal. Miscellaneous: No inguinal hernias or adenopathy. Bones: No suspicious bony lesions. No vertebral body compression fractures. IMPRESSION: Multiple gallstones within the gallbladder lumen, moderate in size, but without CT evide nce of biliary ductal distention or acute cholecystitis. A definite acute process is not seen. Reviewed by: Jl Langford MD on 08/29/2022 12:24 AM PST Approved by: Jl Langford MD on 08/29/2022 12:24 AM PST Station ID: [id number]
--- NOTE | 2022-08-29 00:19 | CT Report ---
PROCEDURE: CHEST W INDICATIONS: fall/pain/on xarelto/bruising all over trunk CONTRAST:100 ML OMNI 300 TECHNIQUE: After the administration of intravenous contrast, 1 mm axial images were acquired from the pulmonary apices through the posterior costophrenic angles. Axial 5 mm soft tissue kernel reconstructions were performed as well as 8 mm axial MIP and coronal and sagittal 5 mm reformations. For radiation dose reduction, the following was used: automated exposure control, adjustment of mA and/or kV according to patient size. COMPARISON: Chest plain films 01/27/2022. FINDINGS: Image quality: Excellent. Lungs and pleura: No acute air space opacities. No pleural effusions or pneumothorax. Central and peripheral airways are patent and normal in caliber. Mediastinum: Heart size is normal. No pericardial effusion. No mediastinal or hilar adenopathy by size criteria. Thoracic aorta and central pulmonary arteries are normal in size. Esophagus is cait l in caliber. No hiatal hernia. Pacemaking device and leads appear normal Bones and chest wall: No suspicious bony lesions. No vertebral body compression fractures. No axil damion or supraclavicular adenopathy by size criteria. The thyroid is normal in size and there are no incidental findings.. Abdomen: Visualized upper abdominal solid organs appear normal. Upper abdominal bowel loops are nor mal in caliber. IMPRESSION: No pneumonia found, no trauma identified. Previously noted gallstones within the gallbladder lumen ar e again seen, without evidence of acute cholecystitis or biliary obstruction. CLINICAL RECOMMENDATION STATEMENTS: In patients <35 years with an ITN detected on CT, MRI, or extrathyroidal ultrasound, the Committee re commends further evaluation with dedicated thyroid ultrasound if the nodule is "e1 cm and has no susp icious imaging features, and if the patient has normal life expectancy. In patients "e35 years with an ITN detected on CT, MRI, or extrathyroidal ultrasound, the Committee r ecommends further evaluation with dedicated thyroid ultrasound if the nodule is "e1.5 cm and has no s uspicious imaging features, and if the patient has normal life expectancy. (ACR, 2014) Reviewed by: Jl Langford MD on 08/29/2022 12:27 AM PST Approved by: Jl Langford MD on 08/29/2022 12:27 AM PST Station ID: [id number]
--- NOTE | 2022-08-29 00:20 | CT Report ---
PROCEDURE: HEAD WO INDICATIONS: fall on xarelto TECHNIQUE: Noncontrast 4.5 mm thick angled axial sections acquired from the foramen magnum to the vertex. For r adiation dose reduction, the following was used: automated exposure control, adjustment of mA and/or kV according to patient size. COMPARISON: Prior head CT of 02/01/2021.. FINDINGS: Image quality: Excellent. CSF spaces: Basal cisterns are patent. No extra-axial fluid collections. Ventricles are normal in size and shape. Brain: No midline shift. No intracranial masses or hemorrhage. [place]-white matter interface is norm al. Skull and face: Calvarium and visualized facial bones are intact, without suspicious lesions. Sinuses: Visualized sinuses and mastoids are clear. IMPRESSION: No trauma found, no intracranial hemorrhage identified. Reviewed by: Jl Langford MD on 08/29/2022 12:28 AM PST Approved by: Jl Langford MD on 08/29/2022 12:28 AM PST Station ID: [id number]
[2022-08-29] MEDS ORDERED: ACETAMINOPHEN 500 MG TABLET PO STA (01:33)
--- NOTE | 2022-08-29 01:33 | ED Physician Documentation ---
History of Present Illness - Stated complaint Stated Complaint: GLF - Chief complaint Chief Complaint: Trauma Jonathon - History obtained from History obtained from: Patient - Additonal information Additional information: Patient is an 86-year-old male with a history of diabetes and atrial fibrillation presenting for evaluation after an unwitnessed fall. Patient reports having unsteady gait at baseline and uses a walker or cane And was Cleaning up after dinner yesterday when he lost his balance and fell down to the ground in the kitchen. He believes he struck his head but did not have LOC. He was too weak to get up and was found by his caregiver earlier today. He was able to Get up with the help of his caregiver. Through the day he has complained of more pain to his back as well as lower abdomen and chest prompting Caregiver to call an ambulance for ER evaluation.Patient is on Xarelto.Patient denies feeling dizzy, lightheaded, having chest pain or difficulty breathing prior to the fall. Review of Systems Constitutional: denies: Fever Cardiac: reports: Chest pain / pressure Respiratory: denies: Dyspnea, Cough GI: reports: Abdominal Pain. denies: Vomiting : denies: Dysuria Musculoskeletal: reports: Back pain Neurologic: reports: Head injury PD PAST MEDICAL HISTORY - Past Medical History Past Medical History: Yes Cardiovascular: Atrial fibrillation Respiratory: None Endocrine/Autoimmune: Type 2 diabetes GI: GERD : Benign prostate hypertrophy, Nocturia, Frequency HEENT: Chronic vision loss Psych: None Musculoskeletal: Chronic back pain Derm: None - Past Surgical History Past Surgical History: Yes Cardiovascular: Pacemaker - Present Medications Home Medications: Ambulatory Orders Medication Instructions Recorded Confirmed Bupropion HCl [Bupropion HCl Sr] 150 mg PO BID 08/07/14 08/29/22 Metformin HCl [Fortamet] 500 mg PO DAILY 08/07/14 08/29/22 Omeprazole 20 mg PO DAILY 08/07/14 08/29/22 dilTIAZem HCl [Diltiazem 24Hr ER 300 mg PO DAILY 07/19/19 08/29/22 (Cd)] acetaZOLAMIDE [Diamox] 250 mg PO Q6H #20 tablet 02/01/21 08/29/22 Lidocaine Patch 5% [Lidoderm Patch] 1 patch TOP DAILY PRN #10 patch 09/29/21 08/29/22 Meloxicam [Mobic] 7.5 mg PO BID PRN #7 tablet 09/29/21 08/29/22 Furosemide [Lasix] 20 mg PO DAILY #14 tablet 01/27/22 08/29/22 HYDROcod/ACETAM 5/325 [[place] 5/325] 1 ea PO Q6H PRN #18 tablet 08/23/22 08/29/22 dexAMETHasone [Decadron] 4 mg PO DAILY #5 tablet 08/23/22 08/29/22 Lidocaine Patch 5% [Lidoderm Patch] 1 patch TOP DAILY PRN #10 patch 08/29/22 - Allergies Allergies/Adverse Reactions: Allergies Allergy/AdvReac Type Severity Reaction Status Date / Time oxycodone HCl * Allergy Unknown Unknown Verified 08/28/22 23:14 [From Percocet] - Social History Does the pt smoke?: No Smoking Status: Never smoker Does the pt drink ETOH?: No Does the pt have substance abuse?: No - Immunizations Immunizations are current?: Yes - POLST Patient has POLST: No PD ED PE NORMAL - General General: Alert and oriented X 3, No acute distress, Well developed/nourished - HEENT HEENT: PERRL, EOMI, Ears normal, Moist mucous membranes, Pharynx benign, Other (Bruising to right face) - Neck Neck: Supple, no meningeal sign, No bony TTP, C-Spine cleared by NEXUS criteria - Cardiac Cardiac: Other (Irregularly irregular; Tenderness to chest wall and areas of bruising to left chest, no flail segments, no crepitus) - Respiratory Respiratory: No respiratory distress, Clear bilaterally - Abdomen Abdomen: Soft, Non tender, Non distended, Other (Bruising to lower abdomen) - Derm Derm: Warm and dry - Extremities Extremities: No tenderness to palpate, Normal ROM s pain, Other (Multiple areas of bruising to bilateral extremities) - Neuro Neuro: Alert and oriented X 3, kier tender 2-12 intact, No motor deficit, No sensory deficit, Normal speech, Other (Able to ambulate Without assistance) Results - Vitals Vitals: Vital Signs - 24 hr 08/28/22 08/28/22 08/29/22 23:00 23:51 01:06 Temperature 36.9 C Heart Rate 93 81 88 Respiratory 16 18 18 Rate Blood Pressure 129/84 H 121/76 116/67 O2 Saturation 95 98 99 Oxygen O2 Source Room air - Labs Labs: Laboratory Tests 08/28/22 08/28/22 08/28/22 23:06 23:06 23:06 WBC 15.1 H RBC 4.77 Hgb 15.7 Hct 44.8 MCV 93.9 MCH 32.9 H MCHC 35.0 RDW 13.4 Plt Count 203 MPV 10.4 Neut # (Auto) 11.0 H Lymph # (Auto) 1.6 [place] # (Auto) 1.6 H Eos # (Auto) 0.2 Baso # (Auto) 0.1 Absolute Nucleated RBC 0.00 Band Neuts % (Manual) Not Reportable Abnorm Lymph % (Manual) Not Reportable Nucleated RBC % 0.0 Neutrophils # (Manual) Not Reportable Lymphocytes # (Manual) Not Reportable Monocytes # (Manual) Not Reportable Eosinophils # (Manual) Not Reportable Basophils # (Manual) Not Reportable Differential Comment MANUAL=AUTO DIFF Platelet Estimate NORMAL (130-450,000) RBC Morph Micro Appear NORMAL APPEARANCE PT 16.8 H INR 1.5 H Sodium 134 L Potassium 3.7 Chloride 102 Carbon Dioxide 24 Anion Gap 8.0 BUN 24 H Creatinine 0.9 Estimated GFR (MDRD) 80 L Glucose 102 H Calcium 8.5 Total Bilirubin 2.2 H AST 50 H ALT 92 H Alkaline Phosphatase 61 Total Creatine Kinase 366 H Total Protein 6.8 Albumin 3.1 L Globulin 3.7 Albumin/Globulin Ratio 0.8 L Lipase 52 H PD MEDICAL DECISION MAKING - ED course Complexity details: reviewed results, re-evaluated patient, d/w patient ED course: Pt Presenting for evaluation after a fall. He does have baseline gait instability reports losing his balance. He denies having any prodromal symptoms prior to falling.His Neurologic exam appears normal. He has Numerous areas of contusions all over his body and is on a blood thinner for history of atrial fibrillation. His C-spine was cleared by Nexus criteria. His CT brain, chest and abdomen pelvis were unremarkable for injuries.His total bili was mildly elevated and there were gallstones seen on his CT scan. He has no right upper quadrant tenderness or complaints.He was able to ambulate here with a walker at his baseline. He has a friend who was able to give him a ride home and will offer continued assistance.I did encourage him to reach out to his primary care doctor to see if they can get additional help in his home as he has been seen twice this week for falls. Pt advised on return precautions. Departure - Departure Disposition: 01 Home, Self Care Clinical Impression: Fall from ground level, Multiple contusions Low back strain Qualifiers: Encounter type: initial encounter Qualified Code(s): S39.012A - Strain of muscle, fascia and tendon of lower back, initial encounter Condition: Stable Instructions: ED Sprain Strain Lumbar, ED Prevention Fall, ED Fall Dizziness Weakn Balance Prescriptions: Lidocaine Patch 5% [Lidoderm Patch] 1 patch TOP DAILY PRN #10 patch PRN Reason: pain Comments: Your CT scans did not show any broken bones.I have sent a prescription for lidocaine patches to [facility] [place][note 2] in [place]. Please continue to use your walker when moving around. I would encourage you to Contact your primary care provider To see if they have additional resources for extra help in your house. If you have any new or worsening symptoms please return to the ER. Discharge Date/Time: 08/29/22 02:04
[2022-08-29 04:48] VITALS: BP 116/67
== END 2022-08-29 02:04 | disposition home or self-care (01) ==
LOC: EDUNIT# → ED 22:59
DX: S39.012A Strain of muscle, fascia and tendon of lower back, initial encounter (principal); W18.30XA Fall on same level, unspecified, initial encounter; I48.91 Unspecified atrial fibrillation; Z79.01 Long term (current) use of anticoagulants; E11.9 Type 2 diabetes mellitus without complications; Z79.84 Long term (current) use of oral hypoglycemic drugs
CPT/HCPCS: 36415; 70450; 71260; 74177; 80053; 82550; 83690; 85025; 85610; 93005; 99283; 99284; A9270; Q9967

== ENCOUNTER 2022-11-03 21:56 | Outpatient (CLI) | payer MEDICARE, OTHER | END 2022-11-03 21:57 | disposition critical access hospital (66) | LOC: EMS 21:56 | DX: S01.01XA Laceration without foreign body of scalp, initial encounter (principal); W01.190A Fall on same level from slipping, tripping and stumbling with subsequent striking against furniture, initial encounter; Y93.01 Activity, walking, marching and hiking; Y92.003 Bedroom of unspecified non-institutional (private) residence as the place of occurrence of the external cause; Z79.01 Long term (current) use of anticoagulants | CPT/HCPCS: A0425; A0429 ==

== ENCOUNTER 2022-11-03 22:31 | Emergency (ER) | payer MEDICARE, OTHER ==
[2022-11-03] MEDS ORDERED: LIDOCAINE 1%-EPI 1:100000 20 ML MDV SUBQ STA (22:35)
[2022-11-03] MEDS ORDERED: TETANUS/DIPHTHERIA/PERTUSSIS 0.5 ML SYRINGE IM ONE (22:35)
[2022-11-03] MEDS ORDERED: LIDOCAINE MPF 2%-EPI 1:200000 20 ML VIAL ONE (22:41)
--- NOTE | 2022-11-03 22:52 | ED Physician Documentation ---
PD HPI HEADACHE - Stated complaint Stated Complaint: GLF, HEAD LAC - History obtained from History obtained from: Patient, EMS - Additional information Additional information: 86-year-old gentleman on Xarelto had a trip and fall. His leg gave out on him and he hit his occiput on a dresser on the way down. He denies headache or loss of consciousness, but he is bleeding profusely on arrival from an occipital scalp wound. Review of Systems Constitutional: denies: Fever, Chills Cardiac: denies: Chest pain / pressure, Palpitations Respiratory: denies: Dyspnea, Cough GI: denies: Abdominal Pain, Nausea, Vomiting PD PAST MEDICAL HISTORY - Past Medical History Cardiovascular: Atrial fibrillation Respiratory: None Endocrine/Autoimmune: Type 2 diabetes GI: GERD : Benign prostate hypertrophy, Nocturia, Frequency HEENT: Chronic vision loss Psych: None Musculoskeletal: Chronic back pain Derm: None - Past Surgical History Past Surgical History: Yes Cardiovascular: Pacemaker - Present Medications Home Medications: Ambulatory Orders Medication Instructions Recorded Confirmed Bupropion HCl [Bupropion HCl Sr] 150 mg PO BID 08/07/14 08/29/22 Metformin HCl [Fortamet] 500 mg PO DAILY 08/07/14 08/29/22 Omeprazole 20 mg PO DAILY 08/07/14 08/29/22 dilTIAZem HCl [Diltiazem 24Hr ER 300 mg PO DAILY 07/19/19 08/29/22 (Cd)] acetaZOLAMIDE [Diamox] 250 mg PO Q6H #20 tablet 02/01/21 08/29/22 Lidocaine Patch 5% [Lidoderm Patch] 1 patch TOP DAILY PRN #10 patch 09/29/21 08/29/22 Meloxicam [Mobic] 7.5 mg PO BID PRN #7 tablet 09/29/21 08/29/22 Furosemide [Lasix] 20 mg PO DAILY #14 tablet 01/27/22 08/29/22 HYDROcod/ACETAM 5/325 [[place] 5/325] 1 ea PO Q6H PRN #18 tablet 08/23/22 08/29/22 dexAMETHasone [Decadron] 4 mg PO DAILY #5 tablet 08/23/22 08/29/22 Lidocaine Patch 5% [Lidoderm Patch] 1 patch TOP DAILY PRN #10 patch 08/29/22 HYDROcod/ACETAM 5/325 [[place] 5/325] 1 tab PO Q8H PRN 4 Days #12 tablet 09/10/22 - Allergies Allergies/Adverse Reactions: Allergies Allergy/AdvReac Type Severity Reaction Status Date / Time No Known Drug Allergies Allergy Verified 11/03/22 22:54 - Social History Does the pt smoke?: No Smoking Status: Never smoker Does the pt drink ETOH?: No Does the pt have substance abuse?: No - Immunizations Immunizations are current?: Yes - POLST Patient has POLST: No PD ED PE NORMAL - Vitals Vital signs reviewed: Yes - General General: Alert and oriented X 3, No acute distress - HEENT HEENT: PERRL, EOMI, Other (He is covered in blood with a bloodsoaked bandage around his occiput. It seems to be actively oozing anyway. Upon removal of this there is a 3 cm vertical laceration on the occiput.) - Neck Neck: Supple, no meningeal sign, No bony TTP - Cardiac Cardiac: Other (Irregularly irregular) - Neuro Neuro: Alert and oriented X 3, Normal speech Eye Opening: Spontaneous Motor: Obeys Commands Verbal: Oriented GCS Score: 15 Results - Vitals Vitals: Vital Signs - 24 hr 11/03/22 11/03/22 11/04/22 22:42 23:52 00:09 Temperature Heart Rate 84 80 88 Respiratory 18 18 18 Rate Blood Pressure 115/74 117/79 116/75 O2 Saturation 98 99 98 11/04/22 00:41 Temperature 36.9 C Heart Rate 77 Respiratory 18 Rate Blood Pressure 116/75 O2 Saturation 99 Oxygen O2 Source Room air - Labs Labs: Laboratory Tests 11/03/22 11/03/22 11/03/22 22:38 22:38 22:58 WBC 13.0 H RBC 3.78 L Hgb 12.5 L Hct 37.7 L MCV 99.7 H MCH 33.1 H MCHC 33.2 RDW 14.1 Plt Count 256 MPV 9.8 Neut # (Auto) 9.6 H Lymph # (Auto) 1.5 [place] # (Auto) 1.3 H Eos # (Auto) 0.2 Baso # (Auto) 0.1 Absolute Nucleated RBC 0.00 Nucleated RBC % 0.0 Sodium 136 Potassium 3.8 Chloride 103 Carbon Dioxide 23 Anion Gap 10.0 BUN 14 Creatinine 0.8 Estimated GFR (MDRD) 92 Glucose 142 H Calcium 9.0 Blood Type B POSITIVE Antibody Screen NEGATIVE - Rads (name of study) CT Head and C Spine Radiology: Final report received, EMP read indepedently Procedures - Laceration (location) Occiput Length in cm: 3 Wound type: Linear Anesthesia: Lidocaine 2% with epi Wound preparation: Irrigated copiously NS Skin layer closure: [place] Other: Tetanus booster given PD Medical Decision Making - ED course ED course: 86yo man on xarelto, BIBA as modifed trauma d/t head injury. Eval immediately on arrival as bleeding heavily from scalp lac and quickly closed with hemostasis. Departure - Departure Disposition: 01 Home, Self Care Clinical Impression: Adequate anticoagulation on anticoagulant therapy, Ground-level fall Occipital scalp laceration Qualifiers: Encounter type: initial encounter Qualified Code(s): S01.01XA - Laceration without foreign body of scalp, initial encounter Head injury Qualifiers: Encounter type: initial encounter Qualified Code(s): S09.90XA - Unspecified injury of head, initial encounter Condition: Good Instructions: ED Head Injury Closed, ED Laceration Scalp Stitch Or Stap Comments: Come back for any signs of infection which would include: Redness, swelling, drainage, increased pain, or fevers. You can wash it soap and water. Keep it covered and moist with bacitracin ointment which is available over the counter; avoid neosporin. Follow-up with your physician in 7 to 10 days for staple removal. Discharge Date/Time: 11/04/22 01:25
[2022-11-03 22:56] LABS: BASOPHILS # (AUTO) 0.1 10^3/uL (0.0-0.1); EOSINOPHILS # (AUTO) 0.2 10^3/uL (0.0-0.7); EOSINOPHILS % (AUTO) 1.4 %; HCT - HEMATOCRIT 37.7 % (42.0-52.0); HGB - HEMOGLOBIN 12.5 g/dL (14.0-18.0); LYMPHOCYTES # (AUTO) 1.5 10^3/uL (1.5-3.5); LYMPHOCYTES % (AUTO) 11.2 %; MEAN CORPUSCULAR HEMOGLOBIN 33.1 pg (27.0-31.0); MEAN CORPUSCULAR HGB CONC 33.2 g/dL (32.0-36.0); MEAN CORPUSCULAR VOLUME 99.7 fL (80.0-94.0); MEAN PLATELET VOLUME 9.8 fL (7.4-11.4); MONOCYTES # (AUTO) 1.3 10^3/uL (0.0-1.0); MONOCYTES % (AUTO) 10.1 %; NEUTROPHILS # (AUTO) 9.6 10^3/uL (1.5-6.6); PLT - PLATELET COUNT 256 10^3/uL (130-450); RED BLOOD COUNT 3.78 10^6/uL (4.70-6.10); RED CELL DISTRIBUTION WIDTH 14.1 % (12.0-15.0)
[2022-11-03 23:02] LABS: CREATININE 0.8 mg/dL (0.6-1.2); POTASSIUM 3.8 mmol/L (3.5-5.0)
--- OUTSIDE RECORDS SUMMARY | 2022-11-03 23:25 | EXTERNAL MEDICAL SUMMARY RPT | Continuity of Care Document ---
:1935 Author Organization [place] Address [address] [place] [address] Phone Care Team Providers Name Role Phone Unavailable Unavailable Unavailable Fredy Pelaez Unavailable Unavailable Allergies and Intolerances date description facility type (no date) No Known Drug Allergies [facility] ([facility] own) Encounters No information. Functional Status No information. Immunizations No information. Medications date description facility 2022-10-24 00:00 Bimatoprost [facility] 2022-10-26 00:00 Oxycodone [facility] 2022-10-24 00:00 Triamcinolone Acetonide [facility] 2022-10-24 00:00 Rivaroxaban [facility] 2022-10-24 00:00 Dorzolamide-Timolol [facility] 2022-10-24 00:00 Omeprazole [facility] 2022-10-24 00:00 Finasteride [facility] 2022-10-26 00:00 Gabapentin [facility] 2022-10-24 00:00 Diltiazem Hcl [facility] 2022-10-24 00:00 Tamsulosin [facility] 2022-10-24 00:[address] [facility] Problems date description facility 2022-09-30 18:36 Spinal stenosis, cervical region 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 2022-10-07 00:00 Computed tomography of cervical spine w [facility] contrast 2022-10-07 00:00 CT lumbar spine wo [facility] Results/Labs test date author facility value unit interpret ation Result panel 1 ([facility]) (no [facility] Result panel 2 (unknown) (no date) ([facility] Result panel 3 (unknown) (no date) (unknown[facility] Result panel 4 (unknown) (no date) ([facility] Result panel 5 (unknown) (no date) (unknown[facility] Result panel 6 (unknown) (no date) (unknown[facility] Result panel 7 (unknown) (no date) (unknown[facility] Result panel 8 (unknown) (no date) (unknown[facility] Result panel 9 (unknown) (no date) (unknown[facility] Result panel 10 (unknown) (no date) (unknown[facility] Result panel 11 (unknown) (no date) (unknown[facility] Result panel 12 (unknown) (no date) (unknown[facility]) Result panel 13 (unknown) (no date) (unknown[facility] Result panel 14 (unknown) (no date) (unknown[facility] Result panel 15 (unknown) (no date) (unknown[facility] Result panel 16 (unknown) (no date) (unknown[facility] Result panel 17 (unknown) (no date) (unknown[facility] Result panel 18 (unknown) (no date) (unknown[facility]) Result panel 19 (unknown) (no date) (unknown[facility] Result panel 20 (unknown) (no date) (unknown[facility] Result panel 21 (unknown) (no date) (unknown[facility] Result panel 22 (unknown) (no date) (unknown[facility]) Result panel 23 (unknown) (no date) (unknown[facility] Result panel 24 (unknown) (no date) (unknown[facility]) Result panel 25 (unknown) (no date) (unknown[facility] Result panel 26 (unknown) (no date) (unknown[facility]) Result panel 27 (unknown) (no date) (unknown[facility] Result panel 28 (unknown) (no date) (unknown[facility]) Result panel 29 (unknown) (no date) (unknown[facility] Result panel 30 (unknown) (no date) (unknown[facility]) Result panel 31 (unknown) (no date) (unknown[facility]) Result panel 32 (unknown) (no date) (unknown[facility] Result panel 33 (unknown) (no date) (unknown[facility] Result panel 34 (unknown) (no date) (unknown[facility]) Result panel 35 (unknown) (no date) (unknown[facility] Result panel 36 (unknown) (no date) (unknown[facility]) Result panel 37 (unknown) (no date) (unknown[facility]) Result panel 38 (unknown) (no date) (unknown[facility] Result panel 39 (unknown) (no date) (unknown[facility]) Result panel 40 (unknown) (no date) (unknown[facility] Result panel 41 (unknown) (no date) (unknown[facility]) Result panel 42 (unknown) (no date) (unknown[facility] Result panel 43 (unknown) (no date) (unknown[facility]) Result panel 44 (unknown) (no date) (unknown[facility]) Result panel 45 (unknown) (no date) (unknown[facility]) Result panel 46 (unknown) (no date) (unknown[facility]) Result panel 47 (unknown) (no date) (unknown[facility]) Result panel 48 (unknown) (no date) (unknown[facility] Result panel 49 (unknown) (no date) (unknown[facility]) Result panel 50 (unknown) (no date) (unknown[facility] Result panel 51 (unknown) (no date) (unknown[facility] Result panel 52 (unknown) (no date) (unknown[facility]) Result panel 53 (unknown) (no date) (unknown[facility] Result panel 54 (unknown) (no date) (unknown[facility]) Result panel 55 (unknown) (no date) (unknown[facility] Result panel 56 (unknown) (no date) (unknown[facility]) Result panel 57 (unknown) (no date) (unknown[facility]) Result panel 58 (unknown) (no date) (unknown[facility] Result panel 59 (unknown) (no date) (unknown[facility]) Result panel 60 (unknown) (no date) (unknown[facility] Result panel 61 (unknown) (no date) (unknown[facility] Result panel 62 (unknown) (no date) (unknown[facility]) Result panel 63 (unknown) (no date) (unknown[facility]) Result panel 64 (unknown) (no date) (unknown[facility]) Result panel 65 (unknown) (no date) (unknown[facility]) Result panel 66 (unknown) (no date) (unknown[facility]) Result panel 67 (unknown) (no date) (unknown[facility]) Result panel 68 (unknown) (no date) (unknown[facility]) Result panel 69 (unknown) (no date) (unknown[facility]) Result panel 70 (unknown) (no date) (unknown[facility]) Result panel 71 (unknown) (no date) (unknown[facility]) Result panel 72 (unknown) (no date) (unknown[facility]) Result panel 73 (unknown) (no date) (unknown[facility]) Result panel 74 (unknown) (no date) (unknown[facility]) Result panel 75 (unknown) (no date) (unknown[facility]) Result panel 76 (unknown) (no date) (unknown[facility]) Result panel 77 (unknown) (no date) (unknown[facility]) Result panel 78 (unknown) (no date) (unknown[facility] Result panel 79 (unknown) (no date) (unknown[facility]) Result panel 80 (unknown) (no date) (unknown[facility] Result panel 81 (unknown) (no date) (unknown[facility]) Result panel 82 (unknown) (no date) (unknown[facility]) Result panel 83 (unknown) (no date) (unknown[facility]) Result panel 84 (unknown) (no date) (unknown[facility]) Result panel 85 (unknown) (no date) (unknown[facility] Result panel 86 (unknown) (no date) (unknown[facility]) Result panel 87 (unknown) (no date) (unknown[facility] Result panel 88 (unknown) (no date) (unknown[facility]) Result panel 89 (unknown) (no date) (unknown[facility]) Result panel 90 (unknown) (no date) (unknown[facility]) Result panel 91 (unknown) (no date) (unknown[facility] Result panel 92 (unknown) (no date) (unknown[facility]) Result panel 93 (unknown) (no date) (unknown[facility]) Result panel 94 (unknown) (no date) (unknown[facility]) Result panel 95 (unknown) (no date) (unknown[facility]) Result panel 96 (unknown) (no date) (unknown[facility]) Result panel 97 (unknown) (no date) (unknown[facility]) Result panel 98 (unknown) (no date) (unknown[facility]) Result panel 99 (unknown) (no date) (unknown[facility]) Result panel 100 (unknown) (no date) (unknown[facility] Result panel 101 (unknown) (no date) (unknown[facility]) Result panel 102 (unknown) (no date) (unknown[facility]) Result panel 103 (unknown) (no date) (unknown[facility]) Result panel 104 (unknown) (no date) (unknown[facility]) Result panel 105 (unknown) (no date) (unknown[facility] Result panel 106 (unknown) (no date) (unknown[facility]) Result panel 107 (unknown) (no date) (unknown[facility]) Result panel 108 (unknown) (no date) (unknown[facility]) Result panel 109 (unknown) (no date) (unknown[facility]) Result panel 110 (unknown) (no date) (unknown[facility]) Result panel 111 (unknown) (no date) (unknown[facility]) Result panel 112 (unknown) (no date) (unknown[facility]) Result panel 113 (unknown) (no date) (unknown[facility]) Result panel 114 (unknown) (no date) (unknown[facility]) Result panel 115 (unknown) (no date) (unknown[facility]) Result panel 116 (unknown) (no date) (unknown[facility]) Result panel 117 (unknown) (no date) (unknown[facility]) Result panel 118 (unknown) (no date) (unknown[facility] Result panel 119 (unknown) (no date) (unknown[facility]) Result panel 120 (unknown) (no date) (unknown[facility]) Result panel 121 (unknown) (no date) (unknown[facility]) Result panel 122 (unknown) (no date) (unknown[facility]) Result panel 123 (unknown) (no date) (unknown[facility]) Result panel 124 (unknown) (no date) (unknown[facility]) Result panel 125 (unknown) (no date) (unknown[facility]) Result panel 126 (unknown) (no date) (unknown[facility]) Result panel 127 (unknown) (no date) (unknown[facility]) Result panel 128 (unknown) (no date) (unknown[facility]) Result panel 129 (unknown) (no date) (unknown[facility]) Result panel 130 (unknown) (no date) (unknown[facility]) Result panel 131 (unknown) (no date) (unknown[facility]) Result panel 132 (unknown) (no date) (unknown[facility]) Result panel 133 (unknown) (no date) (unknown[facility]) Result panel 134 (unknown) (no date) (unknown[facility]) Result panel 135 (unknown) (no date) (unknown[facility]) Result panel 136 (unknown) (no date) (unknown[facility]) Result panel 137 (unknown) (no date) (unknown[facility]) Result panel 138 (unknown) (no date) (unknown[facility]) Result panel 139 (unknown) (no date) (unknown[facility]) Result panel 140 (unknown) (no date) (unknown[facility]) Result panel 141 (unknown) (no date) (unknown[facility]) Result panel 142 (unknown) (no date) (unknown[facility]) Result panel 143 (unknown) (no date) (unknown[facility]) Result panel 144 (unknown) (no date) (unknown[facility]) Result panel 145 (unknown) (no date) (unknown[facility]) Result panel 146 (unknown) (no date) (unknown[facility]) Result panel 147 (unknown) (no date) (unknown[facility]) Result panel 148 (unknown) (no date) (unknown[facility]) Result panel 149 (unknown) (no date) (unknown[facility]) Result panel 150 (unknown) (no date) (unknown[facility]) Result panel 151 (unknown) (no date) (unknown[facility]) Result panel 152 (unknown) (no date) (unknown[facility]) Result panel 153 (unknown) (no date) (unknown[facility]) Result panel 154 (unknown) (no date) (unknown[facility]) Result panel 155 (unknown) (no date) (unknown[facility]) Result panel 156 (unknown) (no date) (unknown) [facility]) Result panel 157 (unknown) (no date) (unknown) [facility]) Result panel 158 (unknown) (no date) (unknown) [facility]) Result panel 159 (unknown) (no date) (unknown[facility]) Result panel 160 (unknown) (no date) (unknown[facility]) Result panel 161 (unknown) (no date) (unknown) [facility]) Result panel 162 (unknown) (no date) (unknown[facility]) Result panel 163 (unknown) (no date) (unknown) [facility]) Result panel 164 (unknown) (no date) (unknown[facility]) Result panel 165 (unknown) (no date) (unknown[facility]) Result panel 166 (unknown) (no date) (unknown[facility]) Result panel 167 (unknown) (no date) (unknown[facility]) Result panel 168 (unknown) (no date) (unknown[facility]) Result panel 169 (unknown) (no date) (unknown[facility]) Result panel 170 (unknown) (no date) (unknown) [facility]) Result panel 171 (unknown) (no date) (unknown[facility]) Result panel 172 (unknown) (no date) (unknown[facility]) Result panel 173 (unknown) (no date) (unknown[facility]) Result panel 174 (unknown) (no date) (unknown[facility] Result panel 175 (unknown) (no date) (unknown[facility]) Result panel 176 (unknown) (no date) (unknown) [facility]) Result panel 177 (unknown) (no date) (unknown) [facility]) Result panel 178 (unknown) (no date) (unknown[facility]) Result panel 179 (unknown) (no date) (unknown[facility]) Result panel 180 (unknown) (no date) (unknown[facility]) Result panel 181 (unknown) (no date) (unknown[facility]) Result panel 182 (unknown) (no date) (unknown[facility]) Result panel 183 (unknown) (no date) (unknown[facility] Result panel 184 (unknown) (no date) (unknown[facility]) Result panel 185 (unknown) (no date) (unknown[facility] Result panel 186 (unknown) (no date) (unknown[facility]) Result panel 187 (unknown) (no date) (unknown[facility] Result panel 188 (unknown) (no date) (unknown[facility]) Result panel 189 (unknown) (no date) (unknown[facility]) Result panel 190 (unknown) (no date) (unknown[facility] Result panel 191 (unknown) (no date) (unknown[facility]) Result panel 192 (unknown) (no date) (unknown[facility]) Result panel 193 (unknown) (no date) (unknown[facility] Result panel 194 (unknown) (no date) (unknown[facility]) Result panel 195 (unknown) (no date) (unknown) [facility]) Result panel 196 (unknown) (no date) (unknown) [facility]) Result panel 197 (unknown) (no date) (unknown) [facility] Result panel 198 (unknown) (no date) (unknown[facility]) Result panel 199 (unknown) (no date) (unknown[facility] Result panel 200 (unknown) (no date) (unknown) [facility]) Result panel 201 (unknown) (no date) (unknown[facility]) Result panel 202 (unknown) (no date) (unknown[facility] Result panel 203 (unknown) (no date) (unknown[facility]) Result panel 204 (unknown) (no date) (unknown[facility] Result panel 205 (unknown) (no date) (unknown[facility] Result panel 206 (unknown) (no date) (unknown[facility]) Result panel 207 (unknown) (no date) (unknown[facility]) Result panel 208 (unknown) (no date) (unknown[facility] Result panel 209 (unknown) (no date) (unknown[facility]) Result panel 210 (unknown) (no date) (unknown[facility] Result panel 211 (unknown) (no date) (unknown[facility]) Result panel 212 (unknown) (no date) (unknown) [facility] Result panel 213 (unknown) (no date) (unknown) [facility] [facility] Result panel 214 (unknown) (no date) (unknown) [facility] Result panel 215 (unknown) (no date) (unknown) [facility] Result panel 216 (unknown) (no date) (unknown) [facility]) Result panel 217 (unknown) (no date) (unknown) [facility]) Result panel 218 (unknown) (no date) (unknown) [facility]) Result panel 219 (unknown) (no date) (unknown) [facility]) Result panel 220 (unknown) (no date) (unknown) [facility]) Result panel 221 (unknown) (no date) (unknown) [facility]) Result panel 222 (unknown) (no date) (unknown) [facility]) Result panel 223 (unknown) (no date) (unknown) [facility]) Result panel 224 (unknown) (no date) (unknown) [facility]) Result panel 225 (unknown) (no date) (unknown) [facility]) Result panel 226 (unknown) (no date) (unknown) [facility]) Result panel 227 (unknown) (no date) (unknown) [facility]) Result panel 228 (unknown) (no date) (unknown) [facility]) Result panel 229 (unknown) (no date) (unknown) [facility]) Result panel 230 (unknown) (no (unknown) (unknown) (no value) (units (unk nown) date) unknown) (unknown) (no (unknown) (unknown) [id number] (units (unkno wn) date) unknown) (unknown) (no (unknown) (unknown) 1. 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 results in [id number] (unknown) (no (unknown) (unknown) 10/07/22 (units (unkno wn) date) unknown) (unknown) (no (unknown) (unknown) [address] [place] [address] (units (unknown) date) unknown) (unknown) (no (unknown) (unknown) Accession Number: (units (unknown) date) [id number] unknown) (unknown) (no (unknown) (unknown) Accession Number: (units (unknown) date) [id number] unknown) (unknown) (no (unknown) (unknown) Age/Sex: 86 / M (units (unknown) date) Date of Service: unknown) (unknown) (no (unknown) (unknown) [place] [id number] (unit s (unknown) date) unknown) (unknown) (no (unknown) (unknown) Appropriate (units (un known) date) unknown) (unknown) (no (unknown) (unknown) Approved by: Kayode (units (unknown) date) Brayden Green on unknown) 10/07/2022 at 17:25 (unknown) (no (unknown) (unknown) Approved by: Kayode (units (unknown) date) Brayden Green on unknown) 10/07/2022 at 17:38 (unknown) (no (unknown) (unknown) Bones: Generalized (units (unknown) date) decreased osseous unknown) mineralization present. There (unknown) (no (unknown) (unknown) Bones: Vertebral (units (unknown) date) body height is unknown) maintained. 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 (units (unknown) date) unknown) (unknown) (no (unknown) (unknown) CT Scan Report (units (unknown) date) unknown) (unknown) (no (unknown) (unknown) : 1935 (units (unknown) date) Acct:[id number] unknown) (unknown) (no (unknown) (unknown) FINDINGS: (units (unkn own) date) unknown) (unknown) (no (unknown) (unknown) IMPRESSION: (units (un known) date) unknown) (unknown) (no (unknown) (unknown) INDICATIONS: Spinal (unit s (unknown) date) stenosis cervical unknown) and lumbar region (unknown) (no (unknown) (unknown) Image quality: (units (unknown) date) Excellent. unknown) (unknown) (no (unknown) (unknown) [facility] (units (unknown) date) unknown) (unknown) (no (unknown) (unknown) L1 results in (units ( unknown) date) moderate central unknown) stenosis. (unknown) (no (unknown) (unknown) L1-L2: Disc space (units (unknown) date) narrowing with disc unknown) bulge and hypertrophic facet joints (unknown) (no (unknown) (unknown) L2-L3: Disc space (units (unknown) date) narrowing with unknown) circumferential disc bulge and hypertrophic (unknown) (no (unknown) (unknown) L3-L4: Disc space (units (unknown) date) narrowing and unknown) circumferential disc bulge with ligamentum (unknown) (no (unknown) (unknown) L4-L5: Disc space (units (unknown) date) narrowing with unknown) hypertrophic facet joints and circumferential (unknown) (no (unknown) (unknown) L5-S1: Disc space (units (unknown) date) narrowing and unknown) circumferential disc bulge present. Mild (unknown) (no (unknown) (unknown) Loc: CT (units (unkno wn) date) unknown) (unknown) (no (unknown) (unknown) Multilevel (units (unk nown) date) degenerative disc unknown) disease and arthropathy results in varying degrees (unknown) (no (unknown) (unknown) Multilevel (units (unk nown) date) osteopenic unknown) compression fractures as above. Retropulsed fracture (unknown) (no (unknown) (unknown) Noncontrast 3 mm (units (unknown) date) thick sections unknown) acquired from the T12 level to the sacrum. (unknown) (no (unknown) (unknown) Noncontrast 3 mm (units (unknown) date) thick sections unknown) acquired from the skull base to the T4 level. (unknown) (no (unknown) (unknown) Ordering Provider: (units (unknown) date) Fredy Pelaez MD unknown) (unknown) (no (unknown) (unknown) PROCEDURE: CT (units ( unknown) date) CERVICAL SPINE WO unknown) CON (unknown) (no (unknown) (unknown) PROCEDURE: CT (units ( unknown) date) LUMBAR SPINE WO CON unknown) (unknown) (no (unknown) (unknown) Patient: (units (unkno wn) date) Nicolas Neely MR#: unknown) M0 (unknown) (no (unknown) (unknown) Procedure: CT (units ( unknown) date) cervical spine wo unknown) con (unknown) (no (unknown) (unknown) Procedure: CT (units ( unknown) date) lumbar spine wo con unknown) (unknown) (no (unknown) (unknown) Retropulsed (units (un known) date) unknown) (unknown) (no (unknown) (unknown) Sagittal and (units (u nknown) date) unknown) (unknown) (no (unknown) (unknown) Sagittal (units (unkno wn) date) unknown) (unknown) (no (unknown) (unknown) Signed (units (unkno wn) date) unknown) (unknown) (no (unknown) (unknown) Soft tissues: No (units (unknown) date) retroperitoneal unknown) masses or hematomas. Visualized aorta is (unknown) (no (unknown) (unknown) Soft tissues: (units ( unknown) date) Prevertebral soft unknown) tissues are normal in thickness. No (unknown) (no (unknown) (unknown) T12-L1: Disc space (units (unknown) date) narrowing with unknown) circumferential disc bulge results in mild (unknown) (no (unknown) (unknown) TECHNIQUE: (units (unk nown) date) unknown) (unknown) (no (unknown) (unknown) There is a healing (units (unknown) date) fracture through the unknown) proximal left clavicle with reactive (unknown) (no (unknown) (unknown) alignment (units (unkn own) date) unknown) (unknown) (no (unknown) (unknown) and coronal (units (un known) date) reformats were then unknown) constructed. For radiation dose reduction, the (unknown) (no (unknown) (unknown) anterior (units (unkno wn) date) unknown) (unknown) (no (unknown) (unknown) bulge results in (units (unknown) date) severe central unknown) stenosis. Severe bilateral foraminal stenosis (unknown) (no (unknown) (unknown) caliber. (units (unkno wn) date) unknown) (unknown) (no (unknown) (unknown) callus (units (unkno wn) date) unknown) (unknown) (no (unknown) (unknown) central and (units (un known) date) foraminal stenosis unknown) including severe central and severe bilateral (unknown) (no (unknown) (unknown) central and (units (un known) date) unknown) (unknown) (no (unknown) (unknown) central stenosis (units (unknown) date) unknown) (unknown) (no (unknown) (unknown) central (units (unkno wn) date) unknown) (unknown) (no (unknown) (unknown) compression (units (un known) date) unknown) (unknown) (no (unknown) (unknown) coronal reformats (units (unknown) date) were constructed. unknown) For radiation dose reduction, the (unknown) (no (unknown) (unknown) disc (units (unkno wn) date) unknown) (unknown) (no (unknown) (unknown) facet (units (unkno wn) date) unknown) (unknown) (no (unknown) (unknown) flavum laxity (units ( unknown) date) unknown) (unknown) (no (unknown) (unknown) following was (units ( unknown) date) unknown) (unknown) (no (unknown) (unknown) following (units (unkn own) date) unknown) (unknown) (no (unknown) (unknown) foraminal (units (unkn own) date) unknown) (unknown) (no (unknown) (unknown) formation (units (unkn own) date) unknown) (unknown) (no (unknown) (unknown) fracture fragment (units (unknown) date) at L1 is noted and unknown) results in moderate central stenosis. (unknown) (no (unknown) (unknown) fractures at L1, (units (unknown) date) L2, L3 and L4. L5 unknown) vertebral body height is maintained. (unknown) (no (unknown) (unknown) fragment at (units (un known) date) unknown) (unknown) (no (unknown) (unknown) hematomas. No (units ( unknown) date) apical unknown) pneumothoraces. Pacer wires noted (unknown) (no (unknown) (unknown) joints results in (units (unknown) date) moderate central unknown) stenosis severe bilateral foraminal stenosis (unknown) (no (unknown) (unknown) lower lumbar spine. (unit s (unknown) date) Mild to moderate unknown) central stenosis noted C4-5 and C5-6 (unknown) (no (unknown) (unknown) mild bilateral (units (unknown) date) foraminal stenosis unknown) (unknown) (no (unknown) (unknown) mild central and (units (unknown) date) severe bilateral unknown) foraminal stenosis (unknown) (no (unknown) (unknown) narrowing and (units ( unknown) date) hypertrophic facet unknown) joints are noted throughout the exam (unknown) (no (unknown) (unknown) normal in (units (unkn own) date) unknown) (unknown) (no (unknown) (unknown) of (units (unkno wn) date) unknown) (unknown) (no (unknown) (unknown) paravertebral (units ( unknown) date) unknown) (unknown) (no (unknown) (unknown) particularly in the (unit s (unknown) date) unknown) (unknown) (no (unknown) (unknown) patient (units (unkno wn) date) unknown) (unknown) (no (unknown) (unknown) results in moderate (unit s (unknown) date) central stenosis. unknown) Moderate right and severe left foraminal (unknown) (no (unknown) (unknown) results in (units (unk nown) date) unknown) (unknown) (no (unknown) (unknown) size. (units (unkno wn) date) unknown) (unknown) (no (unknown) (unknown) space (units (unkno wn) date) unknown) (unknown) (no (unknown) (unknown) spondylolisthesis (units (unknown) date) at C7-T1 and T1-T2. unknown) No evidence of vertebral fracture. 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 (units (unkn own) date) unknown) (unknown) (no (unknown) (unknown) used: automated (units (unknown) date) exposure control. unknown) (unknown) (no (unknown) (unknown) was used: automated (unit s (unknown) date) exposure control, unknown) adjustment of mA and/or kV according to Result panel 231 (unknown) (no (unknown) (unknown) (no value) (units (unk nown) date) unknown) (unknown) (no (unknown) (unknown) [id number] (units (unkno wn) date) unknown) (unknown) (no (unknown) (unknown) 10/24/22 (units (unkno wn) date) unknown) (unknown) (no (unknown) (unknown) [address] [place] [address] (units (unknown) date) unknown) (unknown) (no (unknown) (unknown) Accession Number: (units (unknown) date) [id number] unknown) (unknown) (no (unknown) (unknown) Age/Sex: 86 / M (units (unknown) date) Date of Service: unknown) (unknown) (no (unknown) (unknown) [place], [place] (units ( unknown) date) [id number] unknown) (unknown) (no (unknown) (unknown) Approved by: (units (u nknown) date) Mohan Patterson, unknown) Brayden on 10/24/2022 at 16:08 (unknown) (no (unknown) (unknown) Bones and chest (units (unknown) date) wall: unknown) Age-appropriate bony degenerative changes are seen. No (unknown) (no (unknown) (unknown) COMPARISON: None. (units (unknown) date) unknown) (unknown) (no (unknown) (unknown) : 1935 (units (unknown) date) Acct:[id number] unknown) (unknown) (no (unknown) (unknown) Dictated by: (units (u nknown) date) kelly Agosto) Brayden on 10/24/2022 at 16:07 (unknown) (no (unknown) (unknown) FINDINGS: (units (unkn own) date) unknown) (unknown) (no (unknown) (unknown) IMPRESSION: (units (un known) date) unknown) (unknown) (no (unknown) (unknown) INDICATIONS: (units (u nknown) date) chest pain unknown) (unknown) (no (unknown) (unknown) [facility] (units (unknown) date) unknown) (unknown) (no (unknown) (unknown) Limited portable (units (unknown) date) chest examination, unknown) without a significant cardiopulmonary (unknown) (no (unknown) (unknown) Loc: ED (units (unkno wn) date) unknown) (unknown) (no (unknown) (unknown) Lungs and pleura: (units (unknown) date) On this supine unknown) examination, no large pneumothorax or large (unknown) (no (unknown) (unknown) Mediastinum: (units (u nknown) date) Mediastinal unknown) contours appear normal. Heart size is normal. (unknown) (no (unknown) (unknown) Ordering (units (unkno wn) date) Provider: unknown) Khari Walls D.O. (unknown) (no (unknown) (unknown) PROCEDURE: XR (units ( unknown) date) CHEST 1V unknown) (unknown) (no (unknown) (unknown) Patient: (units (unkno wn) date) Nicolas Neely unknown) MR#: [id number] (unknown) (no (unknown) (unknown) Postoperative and (units (unknown) date) degenerative unknown) changes are seen. (unknown) (no (unknown) (unknown) Procedure: XR (units ( unknown) date) chest 1V unknown) (unknown) (no (unknown) (unknown) Signed (units (unkno wn) date) unknown) (unknown) (no (unknown) (unknown) Surgical changes (units (unknown) date) and devices: A unknown) pacer device is seen. (unknown) (no (unknown) (unknown) TECHNIQUE: One (units (unknown) date) view of the chest unknown) was acquired. (unknown) (no (unknown) (unknown) XRay Report (units (un known) date) unknown) (unknown) (no (unknown) (unknown) abnormality (units (un known) date) unknown) (unknown) (no (unknown) (unknown) bony lesions. (units ( unknown) date) Overlying soft unknown) tissues appear unremarkable. (unknown) (no (unknown) (unknown) effusions are (units ( unknown) date) seen. No focal unknown) areas of lung consolidation are seen. Low lung (unknown) (no (unknown) (unknown) evaluation. (units (un known) date) unknown) (unknown) (no (unknown) (unknown) identified. (units (un known) date) unknown) (unknown) (no (unknown) (unknown) noted. This (units (un known) date) causes a crowded unknown) appearance to the lung markings and limits (unknown) (no (unknown) (unknown) pleural (units (unkno wn) date) unknown) (unknown) (no (unknown) (unknown) suspicious (units (unk nown) date) unknown) (unknown) (no (unknown) (unknown) volumes are (units (un known) date) unknown) Result panel 232 (unknown) (no date) (unknown) (unknown) 1.3 % (unkn own) (unknown) (no date) (unknown) (unknown) 10.3 x10 3/ul (unkn own) (unknown) (no date) (unknown) (unknown) 100 /ul (unkn own) (unknown) (no date) (unknown) (unknown) 11.0 % (unkn own) (unknown) (no date) (unknown) (unknown) 1100 /ul (unkn own) (unknown) (no date) (unknown) (unknown) 14.5 % (unkn own) (unknown) (no date) (unknown) (unknown) 15.6 g/dl (unkn own) (unknown) (no date) (unknown) (unknown) 2.1 % (unkn own) (unknown) (no date) (unknown) (unknown) 200 /ul (unkn own) (unknown) (no date) (unknown) (unknown) 218 x10 3/ul (unkn own) (unknown) (no date) (unknown) (unknown) 22.0 % (unkn own) (unknown) (no date) (unknown) (unknown) 2300 /ul (unkn own) (unknown) (no date) (unknown) (unknown) 33.9 pg (unkn own) (unknown) (no date) (unknown) (unknown) 34.1 % (unkn own) (unknown) (no date) (unknown) (unknown) 4.62 x10 6/ul (unkn own) (unknown) (no date) (unknown) (unknown) 45.9 % (unkn own) (unknown) (no date) (unknown) (unknown) 63.6 % (unkn own) (unknown) (no date) (unknown) (unknown) 6500 /ul (unkn own) (unknown) (no date) (unknown) (unknown) 99.4 fl (unkn own) Result panel 233 (unknown) (no date) (unknown) (unknown) > 60 ml/min (unkn own) (unknown) (no date) (unknown) (unknown) > 60 ml/min (unkn own) (unknown) (no date) (unknown) (unknown) < 20 u/l (unkn own) (unknown) (no date) (unknown) (unknown) 0.80 mg/dl (unkn own) (unknown) (no date) (unknown) (unknown) 1.1 mg/dl (unkn own) (unknown) (no date) (unknown) (unknown) 1.5 (units (unkn own) unknown) (unknown) (no date) (unknown) (unknown) 1.9 mg/dl (unkn own) (unknown) (no date) (unknown) (unknown) 106 mmol/l (unkn own) (unknown) (no date) (unknown) (unknown) 108 u/l (unkn own) (unknown) (no date) (unknown) (unknown) 11.3 (units (unkn own) unknown) (unknown) (no date) (unknown) (unknown) 139 mmol/l (unkn own) (unknown) (no date) (unknown) (unknown) 169 u/l (unkn own) (unknown) (no date) (unknown) (unknown) 17.4 seconds (unkn own) (unknown) (no date) (unknown) (unknown) 23 mmol/l (unkn own) (unknown) (no date) (unknown) (unknown) 27 iu/l (unkn own) (unknown) (no date) (unknown) (unknown) 3.8 mmol/l (unkn own) (unknown) (no date) (unknown) (unknown) 32 iu/l (unkn own) (unknown) (no date) (unknown) (unknown) 36 seconds (unkn own) (unknown) (no date) (unknown) (unknown) 36 seconds (unkn own) (unknown) (no date) (unknown) (unknown) 7.9 g/dl (unkn own) (unknown) (no date) (unknown) (unknown) 89 mg/dl (unkn own) (unknown) (no date) (unknown) (unknown) 89 mg/dl (unkn own) (unknown) (no date) (unknown) (unknown) 9 mg/dl (unkn own) (unknown) (no date) (unknown) (unknown) 9.0 mg/dl (unkn own) (unknown) (no date) (unknown) (unknown) Test not % (unkn own) performed (unknown) (no date) (unknown) (unknown) Test not % (unkn own) performed (unknown) (no date) (unknown) (unknown) Test not ng/ml (unkn own) performed (unknown) (no date) (unknown) (unknown) Test not ng/ml (unkn own) performed Result panel 234 (unknown) (no (unknown) (unknown) (no value) (units (unk nown) date) unknown) (unknown) (no (unknown) (unknown) 10/24/22 16:28 (units (unknown) date) unknown) (unknown) (no (unknown) (unknown) 10/24/22 16:35 (units (unknown) date) unknown) (unknown) (no (unknown) (unknown) 10/24/22 16:40 (units (unknown) date) unknown) (unknown) (no (unknown) (unknown) 10/24/22 16:54 (units (unknown) date) unknown) (unknown) (no (unknown) (unknown) 10/24/22 (units (unkno wn) date) Range/Units unknown) (unknown) (no (unknown) (unknown) 10/24/22 (units (unkno wn) date) unknown) (unknown) (no (unknown) (unknown) [id number] (units (unkno wn) date) unknown) (unknown) (no (unknown) (unknown) 16:14 (units (unkno wn) date) unknown) (unknown) (no (unknown) (unknown) 16:40 (units (unkno wn) date) unknown) (unknown) (no (unknown) (unknown) Age/Sex: 86 / M (units (unknown) date) unknown) (unknown) (no (unknown) (unknown) Aspirin (Aspirin (units (unknown) date) 81 Mg Chew Tab) unknown) 324 mg PO NOW ONE (unknown) (no (unknown) (unknown) Baso # (Auto) (units ( unknown) date) 100 (0-100) /uL unknown) (unknown) (no (unknown) (unknown) Baso % (Auto) (units ( unknown) date) 1.3 (0-2) % unknown) (unknown) (no (unknown) (unknown) Blood Pressure (units (unknown) date) 143/81 H 10/24/22 unknown) 16:14 (unknown) (no (unknown) (unknown) Blood Pressure (units (unknown) date) 143/81 H unknown) (unknown) (no (unknown) (unknown) COVID19 -Nasal (units (unknown) date) RAPID/Pre-Proc unknown) Stat (unknown) (no (unknown) (unknown) Chief Complaint: (units (unknown) date) Arrhythmia/Palpit unknown) ations (unknown) (no (unknown) (unknown) Complete Blood (units (unknown) date) Count AUTO DIFF unknown) Stat (unknown) (no (unknown) (unknown) Comprehensive (units ( unknown) date) Metabolic Panel unknown) Stat (unknown) (no (unknown) (unknown) Course (units (unkno wn) date) unknown) (unknown) (no (unknown) (unknown) : 1935 (units (unknown) date) Acct:[id number] unknown) (unknown) (no (unknown) (unknown) Date of Service: (units (unknown) date) 10/24/22 unknown) (unknown) (no (unknown) (unknown) Discontinued (units (u nknown) date) Medications unknown) (unknown) (no (unknown) (unknown) Documented By: (units (unknown) date) RL unknown) (unknown) (no (unknown) (unknown) ED Orders (units (unkn own) date) unknown) (unknown) (no (unknown) (unknown) EKG-12 Lead Stat (units (unknown) date) unknown) (unknown) (no (unknown) (unknown) ER Physician: (units ( unknown) date) Khari Walls unknown) D.O. (unknown) (no (unknown) (unknown) Emergency Report (units (unknown) date) unknown) (unknown) (no (unknown) (unknown) Eos # (Auto) 200 (units (unknown) date) (0-450) /uL unknown) (unknown) (no (unknown) (unknown) Eos % (Auto) 2.1 (units (unknown) date) (2-4) % unknown) (unknown) (no (unknown) (unknown) Exam (units (unkno wn) date) unknown) (unknown) (no (unknown) (unknown) General (units (unkno wn) date) unknown) (unknown) (no (unknown) (unknown) HPI - (units (unkno wn) date) Arrhythmia/Palpit unknown) ations (unknown) (no (unknown) (unknown) Hct 45.9 (41-53) (units (unknown) date) % unknown) (unknown) (no (unknown) (unknown) Hgb 15.6 (units (unkno wn) date) (13.5-17.5) g/dL unknown) (unknown) (no (unknown) (unknown) Initial Vital (units ( unknown) date) Signs unknown) (unknown) (no (unknown) (unknown) Initial Vital (units ( unknown) date) Signs: unknown) (unknown) (no (unknown) (unknown) [facility] (units (unknown) date) [address] unknown) [place] [address] (unknown) (no (unknown) (unknown) Lab Data (units (unkno wn) date) unknown) (unknown) (no (unknown) (unknown) Lab Results (units (un known) date) unknown) (unknown) (no (unknown) (unknown) Labs: (units (unkno wn) date) unknown) (unknown) (no (unknown) (unknown) Last Admin: (units (un known) date) 10/24/22 16:53 unknown) Dose: 324 mg (unknown) (no (unknown) (unknown) Lipase Stat (units (un known) date) unknown) (unknown) (no (unknown) (unknown) Lymph # (Auto) (units (unknown) date) 2300 (4181-7176) unknown) /uL (unknown) (no (unknown) (unknown) Lymph % (Auto) (units (unknown) date) 22.0 L (25-40) % unknown) (unknown) (no (unknown) (unknown) MCH 33.9 (26-34) (units (unknown) date) PG unknown) (unknown) (no (unknown) (unknown) MCHC 34.1 (units (unkn own) date) (30-36) % unknown) (unknown) (no (unknown) (unknown) MCV 99.4 (units (unkno wn) date) (80-100) fL unknown) (unknown) (no (unknown) (unknown) MDM - (units (unkno wn) date) Arrhythmia/Palpit unknown) ations (unknown) (no (unknown) (unknown) Magnesium Stat (units (unknown) date) unknown) (unknown) (no (unknown) (unknown) Mode of arrival: (units (unknown) date) Family Vehicle unknown) (unknown) (no (unknown) (unknown) Brule # (Auto) (units ( unknown) date) 1100 H (0-900) unknown) /uL (unknown) (no (unknown) (unknown) Brule % (Auto) (units ( unknown) date) 11.0 (3-14) % unknown) (unknown) (no (unknown) (unknown) Neut # (Auto) (units ( unknown) date) 6500 (2726-0220) unknown) /uL (unknown) (no (unknown) (unknown) Neut % (Auto) (units ( unknown) date) 63.6 (50-75) % unknown) (unknown) (no (unknown) (unknown) Ordered: (units (unkno wn) date) unknown) (unknown) (no (unknown) (unknown) Orders (units (unkno wn) date) unknown) (unknown) (no (unknown) (unknown) Oxygen Delivery (units (unknown) date) Method 10/24/22 unknown) 16:14 (unknown) (no (unknown) (unknown) Oxygen Delivery (units (unknown) date) Method Room Air unknown) (unknown) (no (unknown) (unknown) Partial (units (unkno wn) date) Thromboplastin unknown) Time Stat (unknown) (no (unknown) (unknown) Patient History (units (unknown) date) unknown) (unknown) (no (unknown) (unknown) Patient: (units (unkno wn) date) Nicolas Neely unknown) MR#: [id number] (unknown) (no (unknown) (unknown) Plt Count 218 (units ( unknown) date) (150-400) X103/uL unknown) (unknown) (no (unknown) (unknown) Prothrombin Time (units (unknown) date) INR Stat unknown) (unknown) (no (unknown) (unknown) Pulse Oximetry (units (unknown) date) 97 10/24/22 16:14 unknown) (unknown) (no (unknown) (unknown) Pulse Oximetry (units (unknown) date) 97 unknown) (unknown) (no (unknown) (unknown) Pulse Rate 135 H (units (unknown) date) 10/24/22 16:14 unknown) (unknown) (no (unknown) (unknown) Pulse Rate 135 H (units (unknown) date) unknown) (unknown) (no (unknown) (unknown) RBC 4.62 (units (unkno wn) date) (4.5-5.9) X106/uL unknown) (unknown) (no (unknown) (unknown) RDW 14.5 (units (unkno wn) date) (11.6-14.8) % unknown) (unknown) (no (unknown) (unknown) Respiratory Rate (units (unknown) date) 19 10/24/22 16:14 unknown) (unknown) (no (unknown) (unknown) Respiratory Rate (units (unknown) date) 19 unknown) (unknown) (no (unknown) (unknown) Result diagrams: (units (unknown) date) unknown) (unknown) (no (unknown) (unknown) Signed By: (units (unk nown) date) unknown) (unknown) (no (unknown) (unknown) Smoking Status: (units (unknown) date) Never smoker unknown) (unknown) (no (unknown) (unknown) Social History (units (unknown) date) unknown) (unknown) (no (unknown) (unknown) Source: patient (units (unknown) date) unknown) (unknown) (no (unknown) (unknown) Stated (units (unkno wn) date) Complaint: Back unknown) pain (unknown) (no (unknown) (unknown) Stop: 10/24/22 (units (unknown) date) 16:29 unknown) (unknown) (no (unknown) (unknown) Temperature 98.2 (units (unknown) date) F 10/24/22 16:14 unknown) (unknown) (no (unknown) (unknown) Temperature 98.2 (units (unknown) date) F unknown) (unknown) (no (unknown) (unknown) Time Seen by (units (u nknown) date) Provider: unknown) 10/24/22 16:34 (unknown) (no (unknown) (unknown) Troponin + CK (units ( unknown) date) Cardiac Panel unknown) Stat (unknown) (no (unknown) (unknown) Vital Signs - 8 (units (unknown) date) hr unknown) (unknown) (no (unknown) (unknown) Vital Signs (units (un known) date) unknown) (unknown) (no (unknown) (unknown) Vital signs: (units (u nknown) date) unknown) (unknown) (no (unknown) (unknown) WBC 10.3 (units (unkno wn) date) (4.5-11.0) unknown) X103/uL (unknown) (no (unknown) (unknown) XR chest 1V Stat (units (unknown) date) unknown) (unknown) (no (unknown) (unknown) [Embedded Image (units (unknown) date) Not Available] unknown) (unknown) (no (unknown) (unknown) alcohol intake (units (unknown) date) frequency: unknown) holidays/special occasions only Result panel 235 (unknown) (no date) (unknown) (unknown) > 60 ml/min (unkn own) (unknown) (no date) (unknown) (unknown) > 60 ml/min (unkn own) (unknown) (no date) (unknown) (unknown) < 0.012 ng/ml (unkn own) (unknown) (no date) (unknown) (unknown) < 0.012 ng/ml (unkn own) (unknown) (no date) (unknown) (unknown) < 20 u/l (unkn own) (unknown) (no date) (unknown) (unknown) 0.80 mg/dl (unkn own) (unknown) (no date) (unknown) (unknown) 1.1 mg/dl (unkn own) (unknown) (no date) (unknown) (unknown) 1.9 mg/dl (unkn own) (unknown) (no date) (unknown) (unknown) 106 mmol/l (unkn own) (unknown) (no date) (unknown) (unknown) 108 u/l (unkn own) (unknown) (no date) (unknown) (unknown) 11.3 (units (unkn own) unknown) (unknown) (no date) (unknown) (unknown) 139 mmol/l (unkn own) (unknown) (no date) (unknown) (unknown) 169 u/l (unkn own) (unknown) (no date) (unknown) (unknown) 23 mmol/l (unkn own) (unknown) (no date) (unknown) (unknown) 27 iu/l (unkn own) (unknown) (no date) (unknown) (unknown) 3.8 mmol/l (unkn own) (unknown) (no date) (unknown) (unknown) 32 iu/l (unkn own) (unknown) (no date) (unknown) (unknown) 7.9 g/dl (unkn own) (unknown) (no date) (unknown) (unknown) 89 mg/dl (unkn own) (unknown) (no date) (unknown) (unknown) 89 mg/dl (unkn own) (unknown) (no date) (unknown) (unknown) 9 mg/dl (unkn own) (unknown) (no date) (unknown) (unknown) 9.0 mg/dl (unkn own) (unknown) (no date) (unknown) (unknown) Test not % (unkn own) performed (unknown) (no date) (unknown) (unknown) Test not % (unkn own) performed (unknown) (no date) (unknown) (unknown) Test not ng/ml (unkn own) performed (unknown) (no date) (unknown) (unknown) Test not ng/ml (unkn own) performed Result panel 236 (unknown) (no (unknown) (unknown) (no value) (units (unk nown) date) unknown) (unknown) (no (unknown) (unknown) 10/24/22 (units (unkno wn) date) 10/24/22 10/24/22 unknown) Range/Units (unknown) (no (unknown) (unknown) 10/24/22 16:28 (units (unknown) date) unknown) (unknown) (no (unknown) (unknown) 10/24/22 16:35 (units (unknown) date) unknown) (unknown) (no (unknown) (unknown) 10/24/22 16:40 (units (unknown) date) unknown) (unknown) (no (unknown) (unknown) 10/24/22 16:54 (units (unknown) date) unknown) (unknown) (no (unknown) (unknown) 10/24/22 (units (unkno wn) date) unknown) (unknown) (no (unknown) (unknown) [id number] (units (unkno wn) date) unknown) (unknown) (no (unknown) (unknown) 16:14 (units (unkno wn) date) unknown) (unknown) (no (unknown) (unknown) 16:40 16:40 (units (un known) date) 16:40 unknown) (unknown) (no (unknown) (unknown) 86-year-old male (units (unknown) date) unknown) (unknown) (no (unknown) (unknown) ALT 27 (<50) (units (u nknown) date) IU/L unknown) (unknown) (no (unknown) (unknown) APTT 36 (26-36) (units (unknown) date) SECONDS unknown) (unknown) (no (unknown) (unknown) AST 32 (17-59) (units (unknown) date) IU/L unknown) (unknown) (no (unknown) (unknown) Age/Sex: 86 / M (units (unknown) date) unknown) (unknown) (no (unknown) (unknown) Alkaline (units (unkno wn) date) Phosphatase 108 unknown) (38-126) U/L (unknown) (no (unknown) (unknown) Aspirin (Aspirin (units (unknown) date) 81 Mg Chew Tab) unknown) 324 mg PO NOW ONE (unknown) (no (unknown) (unknown) BUN 9 (9-20) (units (u nknown) date) mg/dL unknown) (unknown) (no (unknown) (unknown) BUN/Creatinine (units (unknown) date) Ratio 11.3 (6-22) unknown) (unknown) (no (unknown) (unknown) Baso # (Auto) (units ( unknown) date) 100 (0-100) /uL unknown) (unknown) (no (unknown) (unknown) Baso % (Auto) (units ( unknown) date) 1.3 (0-2) % unknown) (unknown) (no (unknown) (unknown) Blood Pressure (units (unknown) date) 143/81 H 10/24/22 unknown) 16:14 (unknown) (no (unknown) (unknown) Blood Pressure (units (unknown) date) 143/81 H unknown) (unknown) (no (unknown) (unknown) CK-MB (CK-2) Rel (units (unknown) date) Index TNP unknown) (unknown) (no (unknown) (unknown) CK-MB (CK-2) TNP (units (unknown) date) unknown) (unknown) (no (unknown) (unknown) COVID19 -Nasal (units (unknown) date) RAPID/Pre-Proc unknown) Stat (unknown) (no (unknown) (unknown) Calcium 9.0 (units (un known) date) (8.4-10.2) mg/dL unknown) (unknown) (no (unknown) (unknown) Carbon Dioxide (units (unknown) date) 23 (22-32) mmol/L unknown) (unknown) (no (unknown) (unknown) Chief Complaint: (units (unknown) date) Arrhythmia/Palpit unknown) ations (unknown) (no (unknown) (unknown) Chloride 106 (units (u nknown) date) (98-107) mmol/L unknown) (unknown) (no (unknown) (unknown) Complete Blood (units (unknown) date) Count AUTO DIFF unknown) Stat (unknown) (no (unknown) (unknown) Comprehensive (units ( unknown) date) Metabolic Panel unknown) Stat (unknown) (no (unknown) (unknown) Course (units (unkno wn) date) unknown) (unknown) (no (unknown) (unknown) Creatinine 0.80 (units (unknown) date) (0.66-1.25) mg/dL unknown) (unknown) (no (unknown) (unknown) : 1935 (units (unknown) date) Acct:[id number] unknown) (unknown) (no (unknown) (unknown) Date of Service: (units (unknown) date) 10/24/22 unknown) (unknown) (no (unknown) (unknown) Discontinued (units (u nknown) date) Medications unknown) (unknown) (no (unknown) (unknown) Documented By: (units (unknown) date) RL unknown) (unknown) (no (unknown) (unknown) ED Orders (units (unkn own) date) unknown) (unknown) (no (unknown) (unknown) EKG-12 Lead Stat (units (unknown) date) unknown) (unknown) (no (unknown) (unknown) ER Physician: (units ( unknown) date) Khari Walls unknown) D.O. (unknown) (no (unknown) (unknown) Emergency Report (units (unknown) date) unknown) (unknown) (no (unknown) (unknown) Eos # (Auto) 200 (units (unknown) date) (0-450) /uL unknown) (unknown) (no (unknown) (unknown) Eos % (Auto) 2.1 (units (unknown) date) (2-4) % unknown) (unknown) (no (unknown) (unknown) Estimated GFR > (units (unknown) date) 60 (>60) mL/min unknown) (unknown) (no (unknown) (unknown) Exam (units (unkno wn) date) unknown) (unknown) (no (unknown) (unknown) General (units (unkno wn) date) unknown) (unknown) (no (unknown) (unknown) Glucose 89 (units (unk nown) date) (80-110) mg/dL unknown) (unknown) (no (unknown) (unknown) HPI - (units (unkno wn) date) Arrhythmia/Palpit unknown) ations (unknown) (no (unknown) (unknown) HPI narrative: (units (unknown) date) unknown) (unknown) (no (unknown) (unknown) Hct 45.9 (41-53) (units (unknown) date) % unknown) (unknown) (no (unknown) (unknown) Hgb 15.6 (units (unkno wn) date) (13.5-17.5) g/dL unknown) (unknown) (no (unknown) (unknown) History of (units (unk nown) date) Present Illness unknown) (unknown) (no (unknown) (unknown) INR 1.5 H (units (unkn own) date) (0.9-1.3) unknown) (unknown) (no (unknown) (unknown) Initial Vital (units ( unknown) date) Signs unknown) (unknown) (no (unknown) (unknown) Initial Vital (units ( unknown) date) Signs: unknown) (unknown) (no (unknown) (unknown) [facility] (units (unknown) date) [address] unknown) [place] [address] (unknown) (no (unknown) (unknown) Lab Data (units (unkno wn) date) unknown) (unknown) (no (unknown) (unknown) Lab Results (units (un known) date) unknown) (unknown) (no (unknown) (unknown) Labs: (units (unkno wn) date) unknown) (unknown) (no (unknown) (unknown) Last Admin: (units (un known) date) 10/24/22 16:53 unknown) Dose: 324 mg (unknown) (no (unknown) (unknown) Lipase 169 (units (unk nown) date) (23-300) U/L unknown) (unknown) (no (unknown) (unknown) Lipase Stat (units (un known) date) unknown) (unknown) (no (unknown) (unknown) Lymph # (Auto) (units (unknown) date) 2300 ([id number]) unknown) /uL (unknown) (no (unknown) (unknown) Lymph % (Auto) (units (unknown) date) 22.0 L (25-40) % unknown) (unknown) (no (unknown) (unknown) MCH 33.9 (26-34) (units (unknown) date) PG unknown) (unknown) (no (unknown) (unknown) MCHC 34.1 (units (unkn own) date) (30-36) % unknown) (unknown) (no (unknown) (unknown) MCV 99.4 (units (unkno wn) date) (80-100) fL unknown) (unknown) (no (unknown) (unknown) MDM - (units (unkno wn) date) Arrhythmia/Palpit unknown) ations (unknown) (no (unknown) (unknown) Magnesium 1.9 (units ( unknown) date) (1.6-2.3) mg/dL unknown) (unknown) (no (unknown) (unknown) Magnesium Stat (units (unknown) date) unknown) (unknown) (no (unknown) (unknown) Mode of arrival: (units (unknown) date) Family Vehicle unknown) (unknown) (no (unknown) (unknown) Brule # (Auto) (units ( unknown) date) 1100 H (0-900) unknown) /uL (unknown) (no (unknown) (unknown) [place]le % (Auto) (units ( unknown) date) 11.0 (3-14) % unknown) (unknown) (no (unknown) (unknown) Neut # (Auto) (units ( unknown) date) 6500 (8990-7691) unknown) /uL (unknown) (no (unknown) (unknown) Neut % (Auto) (units ( unknown) date) 63.6 (50-75) % unknown) (unknown) (no (unknown) (unknown) Ordered: (units (unkno wn) date) unknown) (unknown) (no (unknown) (unknown) Orders (units (unkno wn) date) unknown) (unknown) (no (unknown) (unknown) Oxygen Delivery (units (unknown) date) Method 10/24/22 unknown) 16:14 (unknown) (no (unknown) (unknown) Oxygen Delivery (units (unknown) date) Method Room Air unknown) (unknown) (no (unknown) (unknown) PT 17.4 H (units (unkn own) date) (10.1-12.7) unknown) SECONDS (unknown) (no (unknown) (unknown) Partial (units (unkno wn) date) Thromboplastin unknown) Time Stat (unknown) (no (unknown) (unknown) Patient History (units (unknown) date) unknown) (unknown) (no (unknown) (unknown) Patient: (units (unkno wn) date) Nicolas Neely unknown) MR#: [id number] (unknown) (no (unknown) (unknown) Plt Count 218 (units ( unknown) date) (150-400) X103/uL unknown) (unknown) (no (unknown) (unknown) Potassium 3.8 (units ( unknown) date) (3.4-5.1) mmol/L unknown) (unknown) (no (unknown) (unknown) Prothrombin Time (units (unknown) date) INR Stat unknown) (unknown) (no (unknown) (unknown) Pulse Oximetry (units (unknown) date) 97 10/24/22 16:14 unknown) (unknown) (no (unknown) (unknown) Pulse Oximetry (units (unknown) date) 97 unknown) (unknown) (no (unknown) (unknown) Pulse Rate 135 H (units (unknown) date) 10/24/22 16:14 unknown) (unknown) (no (unknown) (unknown) Pulse Rate 135 H (units (unknown) date) unknown) (unknown) (no (unknown) (unknown) RBC 4.62 (units (unkno wn) date) (4.5-5.9) X106/uL unknown) (unknown) (no (unknown) (unknown) RDW 14.5 (units (unkno wn) date) (11.6-14.8) % unknown) (unknown) (no (unknown) (unknown) Respiratory Rate (units (unknown) date) 19 10/24/22 16:14 unknown) (unknown) (no (unknown) (unknown) Respiratory Rate (units (unknown) date) 19 unknown) (unknown) (no (unknown) (unknown) Result diagrams: (units (unknown) date) unknown) (unknown) (no (unknown) (unknown) Signed By: (units (unk nown) date) unknown) (unknown) (no (unknown) (unknown) Smoking Status: (units (unknown) date) Never smoker unknown) (unknown) (no (unknown) (unknown) Social History (units (unknown) date) unknown) (unknown) (no (unknown) (unknown) Sodium 139 (units (unk nown) date) (137-145) mmol/L unknown) (unknown) (no (unknown) (unknown) Source: patient (units (unknown) date) unknown) (unknown) (no (unknown) (unknown) Stated (units (unkno wn) date) Complaint: Back unknown) pain (unknown) (no (unknown) (unknown) Stop: 10/24/22 (units (unknown) date) 16:29 unknown) (unknown) (no (unknown) (unknown) Temperature 98.2 (units (unknown) date) F 10/24/22 16:14 unknown) (unknown) (no (unknown) (unknown) Temperature 98.2 (units (unknown) date) F unknown) (unknown) (no (unknown) (unknown) Time Seen by (units (u nknown) date) Provider: unknown) 10/24/22 16:34 (unknown) (no (unknown) (unknown) Total Bilirubin (units (unknown) date) 1.1 (0.2-1.3) unknown) mg/dL (unknown) (no (unknown) (unknown) Total Creatine (units (unknown) date) Kinase < 20 L unknown) (55-170) U/L (unknown) (no (unknown) (unknown) Total Protein (units ( unknown) date) 7.9 (6.3-8.2) unknown) g/dL (unknown) (no (unknown) (unknown) Troponin + CK (units ( unknown) date) Cardiac Panel unknown) Stat (unknown) (no (unknown) (unknown) Vital Signs - 8 (units (unknown) date) hr unknown) (unknown) (no (unknown) (unknown) Vital Signs (units (un known) date) unknown) (unknown) (no (unknown) (unknown) Vital signs: (units (u nknown) date) unknown) (unknown) (no (unknown) (unknown) WBC 10.3 (units (unkno wn) date) (4.5-11.0) unknown) X103/uL (unknown) (no (unknown) (unknown) XR chest 1V Stat (units (unknown) date) unknown) (unknown) (no (unknown) (unknown) [Embedded Image (units (unknown) date) Not Available] unknown) (unknown) (no (unknown) (unknown) alcohol intake (units (unknown) date) frequency: unknown) holidays/special occasions only Result panel 237 (unknown) (no date) (unknown) (unknown) Negative (units (unkn own) unknown) (unknown) (no date) (unknown) (unknown) Negative (units (unkn own) unknown) Result panel 238 (unknown) (no (unknown) (unknown) (no value) (units (unk nown) date) unknown) (unknown) (no (unknown) (unknown) 10/24/22 (units (unkno wn) date) 10/24/22 10/24/22 unknown) Range/Units (unknown) (no (unknown) (unknown) 10/24/22 16:28 (units (unknown) date) unknown) (unknown) (no (unknown) (unknown) 10/24/22 16:35 (units (unknown) date) unknown) (unknown) (no (unknown) (unknown) 10/24/22 16:40 (units (unknown) date) unknown) (unknown) (no (unknown) (unknown) 10/24/22 16:55 (units (unknown) date) unknown) (unknown) (no (unknown) (unknown) 10/24/22 17:49 (units (unknown) date) unknown) (unknown) (no (unknown) (unknown) 10/24/22 (units (unkno wn) date) Range/Units unknown) (unknown) (no (unknown) (unknown) 10/24/22 (units (unkno wn) date) unknown) (unknown) (no (unknown) (unknown) [id number] (units (unkno wn) date) unknown) (unknown) (no (unknown) (unknown) 12 point review (units (unknown) date) of systems is unknown) negative except for those stated above (unknown) (no (unknown) (unknown) 16:14 10/24/22 (units (unknown) date) unknown) (unknown) (no (unknown) (unknown) 16:40 16:40 (units (un known) date) 16:40 unknown) (unknown) (no (unknown) (unknown) 16:51 10/24/22 (units (unknown) date) unknown) (unknown) (no (unknown) (unknown) 16:52 10/24/22 (units (unknown) date) unknown) (unknown) (no (unknown) (unknown) 16:52 (units (unkno wn) date) unknown) (unknown) (no (unknown) (unknown) 16:55 (units (unkno wn) date) unknown) (unknown) (no (unknown) (unknown) 17:00 10/24/22 (units (unknown) date) unknown) (unknown) (no (unknown) (unknown) 17:00 (units (unkno wn) date) unknown) (unknown) (no (unknown) (unknown) 17:16 10/24/22 (units (unknown) date) unknown) (unknown) (no (unknown) (unknown) 17:20 10/24/22 (units (unknown) date) unknown) (unknown) (no (unknown) (unknown) 17:20 (units (unkno wn) date) unknown) (unknown) (no (unknown) (unknown) 17:30 10/24/22 (units (unknown) date) unknown) (unknown) (no (unknown) (unknown) 17:31 10/24/22 (units (unknown) date) unknown) (unknown) (no (unknown) (unknown) 17:31 (units (unkno wn) date) unknown) (unknown) (no (unknown) (unknown) 17:35 10/24/22 (units (unknown) date) unknown) (unknown) (no (unknown) (unknown) 17:35 (units (unkno wn) date) unknown) (unknown) (no (unknown) (unknown) 17:40 10/24/22 (units (unknown) date) unknown) (unknown) (no (unknown) (unknown) 86-year-old male (units (unknown) date) slightly poor unknown) historian with history of AFib on Xarelto for (unknown) (no (unknown) (unknown) ALT (<50) IU/L (units (unknown) date) unknown) (unknown) (no (unknown) (unknown) ALT 27 (<50) (units (u nknown) date) IU/L unknown) (unknown) (no (unknown) (unknown) APTT (26-36) (units (u nknown) date) SECONDS unknown) (unknown) (no (unknown) (unknown) APTT 36 (26-36) (units (unknown) date) SECONDS unknown) (unknown) (no (unknown) (unknown) AST (17-59) IU/L (units (unknown) date) unknown) (unknown) (no (unknown) (unknown) AST 32 (17-59) (units (unknown) date) IU/L unknown) (unknown) (no (unknown) (unknown) Age/Sex: 86 / M (units (unknown) date) unknown) (unknown) (no (unknown) (unknown) Alkaline (units (unkno wn) date) Phosphatase unknown) (38-126) U/L (unknown) (no (unknown) (unknown) Alkaline (units (unkno wn) date) Phosphatase 108 unknown) (38-126) U/L (unknown) (no (unknown) (unknown) Aspirin (Aspirin (units (unknown) date) 81 Mg Chew Tab) unknown) 324 mg PO NOW ONE (unknown) (no (unknown) (unknown) BACK: Severe (units (u nknown) date) midline, unknown) tenderness significantly worse with motion (unknown) (no (unknown) (unknown) BUN (9-20) mg/dL (units (unknown) date) unknown) (unknown) (no (unknown) (unknown) BUN 9 (9-20) (units (u nknown) date) mg/dL unknown) (unknown) (no (unknown) (unknown) BUN/Creatinine (units (unknown) date) Ratio (6-22) unknown) (unknown) (no (unknown) (unknown) BUN/Creatinine (units (unknown) date) Ratio 11.3 (6-22) unknown) (unknown) (no (unknown) (unknown) Baso # (Auto) (units ( unknown) date) (0-100) /uL unknown) (unknown) (no (unknown) (unknown) Baso # (Auto) (units ( unknown) date) 100 (0-100) /uL unknown) (unknown) (no (unknown) (unknown) Baso % (Auto) (units ( unknown) date) (0-2) % unknown) (unknown) (no (unknown) (unknown) Baso % (Auto) (units ( unknown) date) 1.3 (0-2) % unknown) (unknown) (no (unknown) (unknown) Blood Pressure (units (unknown) date) 105/80 unknown) (unknown) (no (unknown) (unknown) Blood Pressure (units (unknown) date) 119/94 H unknown) (unknown) (no (unknown) (unknown) Blood Pressure (units (unknown) date) 125/90 unknown) (unknown) (no (unknown) (unknown) Blood Pressure (units (unknown) date) 131/85 153/82 H unknown) (unknown) (no (unknown) (unknown) Blood Pressure (units (unknown) date) 134/102 H unknown) (unknown) (no (unknown) (unknown) Blood Pressure (units (unknown) date) 143/81 H 10/24/22 unknown) 16:14 (unknown) (no (unknown) (unknown) Blood Pressure (units (unknown) date) 143/81 H 128/82 unknown) (unknown) (no (unknown) (unknown) CARDIOVASCULAR: (units (unknown) date) See HPI unknown) (unknown) (no (unknown) (unknown) CARDIOVASCULAR: (units (unknown) date) Tachycardic and unknown) irregular rhythm without murmurs, gallops, or (unknown) (no (unknown) (unknown) CK-MB (CK-2) Rel (units (unknown) date) Index TNP unknown) (unknown) (no (unknown) (unknown) CK-MB (CK-2) Rel (units (unknown) date) Index unknown) (unknown) (no (unknown) (unknown) CK-MB (CK-2) TNP (units (unknown) date) unknown) (unknown) (no (unknown) (unknown) CK-MB (CK-2) (units (u nknown) date) unknown) (unknown) (no (unknown) (unknown) COVID19 -Nasal (units (unknown) date) RAPID/Pre-Proc unknown) Stat (unknown) (no (unknown) (unknown) Calcium (units (unkno wn) date) (8.4-10.2) mg/dL unknown) (unknown) (no (unknown) (unknown) Calcium 9.0 (units (un known) date) (8.4-10.2) mg/dL unknown) (unknown) (no (unknown) (unknown) Carbon Dioxide (units (unknown) date) (22-32) mmol/L unknown) (unknown) (no (unknown) (unknown) Carbon Dioxide (units (unknown) date) 23 (22-32) mmol/L unknown) (unknown) (no (unknown) (unknown) Chief Complaint: (units (unknown) date) Arrhythmia/Palpit unknown) ations (unknown) (no (unknown) (unknown) Chloride (units (unkno wn) date) (98-107) mmol/L unknown) (unknown) (no (unknown) (unknown) Chloride 106 (units (u nknown) date) (98-107) mmol/L unknown) (unknown) (no (unknown) (unknown) Complete Blood (units (unknown) date) Count AUTO DIFF unknown) Stat (unknown) (no (unknown) (unknown) Comprehensive (units ( unknown) date) Metabolic Panel unknown) Stat (unknown) (no (unknown) (unknown) Course (units (unkno wn) date) unknown) (unknown) (no (unknown) (unknown) Creatinine (units (unk nown) date) (0.66-1.25) mg/dL unknown) (unknown) (no (unknown) (unknown) Creatinine 0.80 (units (unknown) date) (0.66-1.25) mg/dL unknown) (unknown) (no (unknown) (unknown) : 1935 (units (unknown) date) Acct:[id number] unknown) (unknown) (no (unknown) (unknown) Date of Service: (units (unknown) date) 10/24/22 unknown) (unknown) (no (unknown) (unknown) Discontinued (units (u nknown) date) Medications unknown) (unknown) (no (unknown) (unknown) Documented By: (units (unknown) date) RL unknown) (unknown) (no (unknown) (unknown) ED Orders (units (unkn own) date) unknown) (unknown) (no (unknown) (unknown) EKG-12 Lead (units (un known) date) Routine unknown) (unknown) (no (unknown) (unknown) EKG-12 Lead Stat (units (unknown) date) unknown) (unknown) (no (unknown) (unknown) ENT: Nose (units (unkn own) date) without bleeding, unknown) purulent drainage. Throat without erythema, (unknown) (no (unknown) (unknown) ER Physician: (units ( unknown) date) Khari Walls unknown) D.O. (unknown) (no (unknown) (unknown) EXTREMITIES: No (units (unknown) date) edema or joint unknown) tenderness. (unknown) (no (unknown) (unknown) EYES: Pupils (units (u nknown) date) equal round and unknown) reactive. Extraocular motions intact. No scleral (unknown) (no (unknown) (unknown) Emergency Report (units (unknown) date) unknown) (unknown) (no (unknown) (unknown) Eos # (Auto) (units (u nknown) date) (0-450) /uL unknown) (unknown) (no (unknown) (unknown) Eos # (Auto) 200 (units (unknown) date) (0-450) /uL unknown) (unknown) (no (unknown) (unknown) Eos % (Auto) (units (u nknown) date) (2-4) % unknown) (unknown) (no (unknown) (unknown) Eos % (Auto) 2.1 (units (unknown) date) (2-4) % unknown) (unknown) (no (unknown) (unknown) Estimated GFR > (units (unknown) date) 60 (>60) mL/min unknown) (unknown) (no (unknown) (unknown) Estimated GFR (units ( unknown) date) (>60) mL/min unknown) (unknown) (no (unknown) (unknown) Exam Narrative: (units (unknown) date) unknown) (unknown) (no (unknown) (unknown) Exam (units (unkno wn) date) unknown) (unknown) (no (unknown) (unknown) GASTROINTESTINAL (units (unknown) date) : Abdomen soft, unknown) non-tender, nondistended. (unknown) (no (unknown) (unknown) GASTROINTESTINAL (units (unknown) date) : Denies nausea, unknown) vomiting, abdominal pain, diarrhea, (unknown) (no (unknown) (unknown) GENERAL: Denies (units (unknown) date) chills, fatigue, unknown) malaise, fever, sweats. (unknown) (no (unknown) (unknown) GENERAL: [86] (units ( unknown) date) year old patient unknown) appears stated age. Well-developed patient, in (unknown) (no (unknown) (unknown) : Denies (units (unk nown) date) dysuria, unknown) frequency, incontinence, hematuria, urinary retention. (unknown) (no (unknown) (unknown) General (units (unkno wn) date) unknown) (unknown) (no (unknown) (unknown) Glucose (80-110) (units (unknown) date) mg/dL unknown) (unknown) (no (unknown) (unknown) Glucose 89 (units (unk nown) date) (80-110) mg/dL unknown) (unknown) (no (unknown) (unknown) HEAD: (units (unkno wn) date) Atraumatic. unknown) Normocephalic. (unknown) (no (unknown) (unknown) HEENT: Denies (units ( unknown) date) sinus pain, ear unknown) pain, sore throat, difficulty swallowing, (unknown) (no (unknown) (unknown) HPI - (units (unkno wn) date) Arrhythmia/Palpit unknown) ations (unknown) (no (unknown) (unknown) HPI narrative: (units (unknown) date) unknown) (unknown) (no (unknown) (unknown) Hct (41-53) % (units ( unknown) date) unknown) (unknown) (no (unknown) (unknown) Hct 45.9 (41-53) (units (unknown) date) % unknown) (unknown) (no (unknown) (unknown) He states he has (units (unknown) date) significant pain unknown) that is worse with range of motion and (unknown) (no (unknown) (unknown) Hgb (13.5-17.5) (units (unknown) date) g/dL unknown) (unknown) (no (unknown) (unknown) Hgb 15.6 (units (unkno wn) date) (13.5-17.5) g/dL unknown) (unknown) (no (unknown) (unknown) History of (units (unk nown) date) Present Illness unknown) (unknown) (no (unknown) (unknown) INR (0.9-1.3) (units ( unknown) date) unknown) (unknown) (no (unknown) (unknown) INR 1.5 H (units (unkn own) date) (0.9-1.3) unknown) (unknown) (no (unknown) (unknown) Initial Vital (units ( unknown) date) Signs unknown) (unknown) (no (unknown) (unknown) Initial Vital (units ( unknown) date) Signs: unknown) (unknown) (no (unknown) (unknown) [facility] (units (unknown) date) [address] [place] [address] unknown) [place] [address] (unknown) (no (unknown) (unknown) Lab Data (units (unkno wn) date) unknown) (unknown) (no (unknown) (unknown) Lab Results (units (un known) date) unknown) (unknown) (no (unknown) (unknown) Labs: (units (unkno wn) date) unknown) (unknown) (no (unknown) (unknown) Last Admin: (units (un known) date) 10/24/22 16:53 unknown) Dose: 324 mg (unknown) (no (unknown) (unknown) Last Admin: (units (un known) date) 10/24/22 17:42 unknown) Dose: 40 mg (unknown) (no (unknown) (unknown) Lipase (23-300) (units (unknown) date) U/L unknown) (unknown) (no (unknown) (unknown) Lipase 169 (units (unk nown) date) (23-300) U/L unknown) (unknown) (no (unknown) (unknown) Lipase Stat (units (un known) date) unknown) (unknown) (no (unknown) (unknown) Lymph # (Auto) (units (unknown) date) (5780-8122) /uL unknown) (unknown) (no (unknown) (unknown) Lymph # (Auto) (units (unknown) date) 2300 (3124-9438) unknown) /uL (unknown) (no (unknown) (unknown) Lymph % (Auto) (units (unknown) date) (25-40) % unknown) (unknown) (no (unknown) (unknown) Lymph % (Auto) (units (unknown) date) 22.0 L (25-40) % unknown) (unknown) (no (unknown) (unknown) MCH (26-34) PG (units (unknown) date) unknown) (unknown) (no (unknown) (unknown) MCH 33.9 (26-34) (units (unknown) date) PG unknown) (unknown) (no (unknown) (unknown) MCHC (30-36) % (units (unknown) date) unknown) (unknown) (no (unknown) (unknown) MCHC 34.1 (units (unkn own) date) (30-36) % unknown) (unknown) (no (unknown) (unknown) MCV (80-100) fL (units (unknown) date) unknown) (unknown) (no (unknown) (unknown) MCV 99.4 (units (unkno wn) date) (80-100) fL unknown) (unknown) (no (unknown) (unknown) MDM - (units (unkno wn) date) Arrhythmia/Palpit unknown) ations (unknown) (no (unknown) (unknown) MUSCULOSKELETAL: (units (unknown) date) See HPI unknown) (unknown) (no (unknown) (unknown) Magnesium (units (unkn own) date) (1.6-2.3) mg/dL unknown) (unknown) (no (unknown) (unknown) Magnesium 1.9 (units ( unknown) date) (1.6-2.3) mg/dL unknown) (unknown) (no (unknown) (unknown) Magnesium Stat (units (unknown) date) unknown) (unknown) (no (unknown) (unknown) Mode of arrival: (units (unknown) date) Family Vehicle unknown) (unknown) (no (unknown) (unknown) Brule # (Auto) (units ( unknown) date) (0-900) /uL unknown) (unknown) (no (unknown) (unknown) Brule # (Auto) (units ( unknown) date) 1100 H (0-900) unknown) /uL (unknown) (no (unknown) (unknown) Brule % (Auto) (units ( unknown) date) (3-14) % unknown) (unknown) (no (unknown) (unknown) Brule % (Auto) (units ( unknown) date) 11.0 (3-14) % unknown) (unknown) (no (unknown) (unknown) NECK: Trachea (units ( unknown) date) midline. Non unknown) tender (unknown) (no (unknown) (unknown) NEURO: AOx3. (units (u nknown) date) unknown) (unknown) (no (unknown) (unknown) NEUROLOGIC: See (units (unknown) date) HPI unknown) (unknown) (no (unknown) (unknown) Narrative (units (unkn own) date) unknown) (unknown) (no (unknown) (unknown) Narrative: (units (unk nown) date) unknown) (unknown) (no (unknown) (unknown) Neut # (Auto) (units ( unknown) date) (8320-9498) /uL unknown) (unknown) (no (unknown) (unknown) Neut # (Auto) (units ( unknown) date) 6500 (6468-2925) unknown) /uL (unknown) (no (unknown) (unknown) Neut % (Auto) (units ( unknown) date) (50-75) % unknown) (unknown) (no (unknown) (unknown) Neut % (Auto) (units ( unknown) date) 63.6 (50-75) % unknown) (unknown) (no (unknown) (unknown) Ordered: (units (unkno wn) date) unknown) (unknown) (no (unknown) (unknown) Orders (units (unkno wn) date) unknown) (unknown) (no (unknown) (unknown) Oxygen Delivery (units (unknown) date) Method 10/24/22 unknown) 16:14 (unknown) (no (unknown) (unknown) Oxygen Delivery (units (unknown) date) Method Room Air unknown) (unknown) (no (unknown) (unknown) Oxygen Delivery (units (unknown) date) Method unknown) (unknown) (no (unknown) (unknown) PSYCHIATRIC: No (units (unknown) date) concerning unknown) psychosocial issues. (unknown) (no (unknown) (unknown) PT (10.1-12.7) (units (unknown) date) SECONDS unknown) (unknown) (no (unknown) (unknown) PT 17.4 H (units (unkn own) date) (10.1-12.7) unknown) SECONDS (unknown) (no (unknown) (unknown) Partial (units (unkno wn) date) Thromboplastin unknown) Time Stat (unknown) (no (unknown) (unknown) Patient History (units (unknown) date) unknown) (unknown) (no (unknown) (unknown) Patient: (units (unkno wn) date) Nicolas Neely unknown) MR#: [id number] (unknown) (no (unknown) (unknown) Plt Count (units (unkn own) date) (150-400) X103/uL unknown) (unknown) (no (unknown) (unknown) Plt Count 218 (units ( unknown) date) (150-400) X103/uL unknown) (unknown) (no (unknown) (unknown) Potassium (units (unkn own) date) (3.4-5.1) mmol/L unknown) (unknown) (no (unknown) (unknown) Potassium 3.8 (units ( unknown) date) (3.4-5.1) mmol/L unknown) (unknown) (no (unknown) (unknown) Propofol (units (unkno wn) date) (Propofol 200 unknown) Mg/20 Ml Vial) 70 mg 1 mg/kg (70 mg) IV NOW ONE (unknown) (no (unknown) (unknown) Prothrombin Time (units (unknown) date) INR Stat unknown) (unknown) (no (unknown) (unknown) Pulse Oximetry (units (unknown) date) 96 95 unknown) (unknown) (no (unknown) (unknown) Pulse Oximetry (units (unknown) date) 96 unknown) (unknown) (no (unknown) (unknown) Pulse Oximetry (units (unknown) date) 97 10/24/22 16:14 unknown) (unknown) (no (unknown) (unknown) Pulse Oximetry (units (unknown) date) 97 97 unknown) (unknown) (no (unknown) (unknown) Pulse Rate 133 H (units (unknown) date) unknown) (unknown) (no (unknown) (unknown) Pulse Rate 135 H (units (unknown) date) 10/24/22 16:14 unknown) (unknown) (no (unknown) (unknown) Pulse Rate 135 H (units (unknown) date) 118 H unknown) (unknown) (no (unknown) (unknown) Pulse Rate 135 H (units (unknown) date) 130 H unknown) (unknown) (no (unknown) (unknown) Pulse Rate 136 H (units (unknown) date) 131 H unknown) (unknown) (no (unknown) (unknown) Pulse Rate 138 H (units (unknown) date) 140 H unknown) (unknown) (no (unknown) (unknown) Pulse Rate 143 H (units (unknown) date) 136 H unknown) (unknown) (no (unknown) (unknown) RBC (4.5-5.9) (units ( unknown) date) X106/uL unknown) (unknown) (no (unknown) (unknown) RBC 4.62 (units (unkno wn) date) (4.5-5.9) X106/uL unknown) (unknown) (no (unknown) (unknown) RDW (11.6-14.8) (units (unknown) date) % unknown) (unknown) (no (unknown) (unknown) RDW 14.5 (units (unkno wn) date) (11.6-14.8) % unknown) (unknown) (no (unknown) (unknown) RESPIRATORY: (units (un known) date) Clear to unknown) auscultation. Breath sounds equal bilaterally. No wheezes, (unknown) (no (unknown) (unknown) RESPIRATORY: See (units (unknown) date) HPI unknown) (unknown) (no (unknown) (unknown) Respiratory Rate (units (unknown) date) 11 L unknown) (unknown) (no (unknown) (unknown) Respiratory Rate (units (unknown) date) 13 10 L unknown) (unknown) (no (unknown) (unknown) Respiratory Rate (units (unknown) date) 15 16 unknown) (unknown) (no (unknown) (unknown) Respiratory Rate (units (unknown) date) 18 12 unknown) (unknown) (no (unknown) (unknown) Respiratory Rate (units (unknown) date) 19 10/24/22 16:14 unknown) (unknown) (no (unknown) (unknown) Respiratory Rate (units (unknown) date) 19 22 unknown) (unknown) (no (unknown) (unknown) Respiratory Rate (units (unknown) date) 20 13 unknown) (unknown) (no (unknown) (unknown) Result diagrams: (units (unknown) date) unknown) (unknown) (no (unknown) (unknown) Review of (units (unkn own) date) Systems unknown) (unknown) (no (unknown) (unknown) SARS-CoV-2 (PCR) (units (unknown) date) (Negative) unknown) (unknown) (no (unknown) (unknown) SARS-CoV-2 (PCR) (units (unknown) date) Negative unknown) (Negative) (unknown) (no (unknown) (unknown) SKIN: Denies (units (u nknown) date) rash, skin unknown) lesions, or other (unknown) (no (unknown) (unknown) SKIN: No rash or (units (unknown) date) erythema of unknown) visible areas (unknown) (no (unknown) (unknown) Signed By: (units (unk nown) date) unknown) (unknown) (no (unknown) (unknown) Smoking Status: (units (unknown) date) Never smoker unknown) (unknown) (no (unknown) (unknown) Social History (units (unknown) date) unknown) (unknown) (no (unknown) (unknown) Sodium (137-145) (units (unknown) date) mmol/L unknown) (unknown) (no (unknown) (unknown) Sodium 139 (units (unk nown) date) (137-145) mmol/L unknown) (unknown) (no (unknown) (unknown) Source: patient (units (unknown) date) unknown) (unknown) (no (unknown) (unknown) Stated (units (unkno wn) date) Complaint: Back unknown) pain (unknown) (no (unknown) (unknown) Stop: 10/24/22 (units (unknown) date) 16:29 unknown) (unknown) (no (unknown) (unknown) Stop: 10/24/22 (units (unknown) date) 17:28 unknown) (unknown) (no (unknown) (unknown) Temperature 98.2 (units (unknown) date) F 10/24/22 16:14 unknown) (unknown) (no (unknown) (unknown) Temperature 98.2 (units (unknown) date) F unknown) (unknown) (no (unknown) (unknown) Temperature (units (un known) date) unknown) (unknown) (no (unknown) (unknown) Time Seen by (units (u nknown) date) Provider: unknown) 10/24/22 16:34 (unknown) (no (unknown) (unknown) Total Bilirubin (units (unknown) date) (0.2-1.3) mg/dL unknown) (unknown) (no (unknown) (unknown) Total Bilirubin (units (unknown) date) 1.1 (0.2-1.3) unknown) mg/dL (unknown) (no (unknown) (unknown) Total Creatine (units (unknown) date) Kinase < 20 L unknown) (55-170) U/L (unknown) (no (unknown) (unknown) Total Creatine (units (unknown) date) Kinase (55-170) unknown) U/L (unknown) (no (unknown) (unknown) Total Protein (units ( unknown) date) (6.3-8.2) g/dL unknown) (unknown) (no (unknown) (unknown) Total Protein (units ( unknown) date) 7.9 (6.3-8.2) unknown) g/dL (unknown) (no (unknown) (unknown) Troponin + CK (units ( unknown) date) Cardiac Panel unknown) Stat (unknown) (no (unknown) (unknown) Troponin I < (units (u nknown) date) 0.012 unknown) (0.01-0.034) ng/mL (unknown) (no (unknown) (unknown) Troponin I (units (unk nown) date) (0.01-0.034) unknown) ng/mL (unknown) (no (unknown) (unknown) Vital Signs - 8 (units (unknown) date) hr unknown) (unknown) (no (unknown) (unknown) Vital Signs (units (un known) date) unknown) (unknown) (no (unknown) (unknown) Vital signs: (units (u nknown) date) unknown) (unknown) (no (unknown) (unknown) WBC (4.5-11.0) (units (unknown) date) X103/uL unknown) (unknown) (no (unknown) (unknown) WBC 10.3 (units (unkno wn) date) (4.5-11.0) unknown) X103/uL (unknown) (no (unknown) (unknown) XR chest 1V Stat (units (unknown) date) unknown) (unknown) (no (unknown) (unknown) [Embedded Image (units (unknown) date) Not Available] unknown) (unknown) (no (unknown) (unknown) alcohol intake (units (unknown) date) frequency: unknown) holidays/special occasions only (unknown) (no (unknown) (unknown) but primarily (units ( unknown) date) due to severe unknown) midline low back pain. He had 2 falls, the most (unknown) (no (unknown) (unknown) constipation, (units ( unknown) date) melena. unknown) (unknown) (no (unknown) (unknown) dizziness. 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 He denies any (unknown) (no (unknown) (unknown) frequently short (units (unknown) date) of breath but unknown) admits that the majority of his day is consume (unknown) (no (unknown) (unknown) icterus. No (units (un known) date) injection or unknown) drainage. (unknown) (no (unknown) (unknown) improves with (units ( unknown) date) rest. He denies unknown) any chest pain but does state that he is (unknown) (no (unknown) (unknown) many years, (units (un known) date) pacemaker unknown) placement for sick sinus syndrome, history of ventricular (unknown) (no (unknown) (unknown) numbness, (units (unkn own) date) tingling or unknown) weakness, denies any loss of control of bowel or bladder. (unknown) (no (unknown) (unknown) obvious (units (unkno wn) date) distress. unknown) Complaining of low back pain (unknown) (no (unknown) (unknown) rales, or (units (unkn own) date) rhonchi. unknown) (unknown) (no (unknown) (unknown) recent of which (units (unknown) date) was in the end of unknown) September and has advanced imaging from our (unknown) (no (unknown) (unknown) rubs. (units (unkno wn) date) unknown) (unknown) (no (unknown) (unknown) tachycardia (units (un known) date) presents for unknown) evaluation episodes of shortness of breath and fatigue (unknown) (no (unknown) (unknown) tonsillar (units (unkn own) date) hypertrophy or unknown) exudate. Airway patent. (unknown) (no (unknown) (unknown) with severe pain (units (unknown) date) unknown) Result panel 239 (unknown) (no (unknown) (unknown) (no value) (units (unk nown) date) unknown) (unknown) (no (unknown) (unknown) [id number] (units (unkno wn) date) unknown) (unknown) (no (unknown) (unknown) 10/24/22 (units (unkno wn) date) unknown) (unknown) (no (unknown) (unknown) 1. Multiple (units (un known) date) vertebral body unknown) compression fractures. Moderate compression (unknown) (no (unknown) (unknown) 09/17/2022. Healing (units (unknown) date) a right 3rd through unknown) 8th rib fractures are present. Chronic (unknown) (no (unknown) (unknown) [address] [place] [address] (units (unknown) date) unknown) (unknown) (no (unknown) (unknown) 2. Multiple (units (un known) date) bilateral rib unknown) fractures with signs of healing, likely subacute to (unknown) (no (unknown) (unknown) 3. Medial left (units (unknown) date) clavicular fracture unknown) is seen adjacent to the sternoclavicular (unknown) (no (unknown) (unknown) 4. Diffuse hepatic (units (unknown) date) steatosis. unknown) (unknown) (no (unknown) (unknown) 5. Cholelithiasis. (units (unknown) date) unknown) (unknown) (no (unknown) (unknown) 6. Colonic (units (unk nown) date) diverticulosis. unknown) (unknown) (no (unknown) (unknown) ABDOMEN: (units (unkno wn) date) unknown) (unknown) (no (unknown) (unknown) Accession Number: (units (unknown) date) [id number] unknown) (unknown) (no (unknown) (unknown) Additional 7 mm (units (unknown) date) thick coronal unknown) maximum intensity projection (MIP) reformats (unknown) (no (unknown) (unknown) Additional (units (unk nown) date) unknown) (unknown) (no (unknown) (unknown) After the (units (unkn own) date) administration of unknown) intravenous contrast, 5 mm thick sections acquired (unknown) (no (unknown) (unknown) Age/Sex: 86 / M (units (unknown) date) Date of Service: unknown) (unknown) (no (unknown) (unknown) [place], [place] (units ( unknown) date) [id number] unknown) (unknown) (no (unknown) (unknown) Approved by: (units (u nknown) date) kelly Ny) Brayden on 10/24/2022 at 19:08 (unknown) (no (unknown) (unknown) Biliary (units (unkno wn) date) unknown) (unknown) (no (unknown) (unknown) Bones: Generalized (units (unknown) date) osteopenia. unknown) Multilevel compression fractures are seen in (unknown) (no (unknown) (unknown) Both kidneys (units (u nknown) date) enhance normally, unknown) without hydronephrosis or lacerations. (unknown) (no (unknown) (unknown) CHEST: (units (unkno wn) date) unknown) (unknown) (no (unknown) (unknown) COMPARISON: [facility] (units (unknown) date) [facility], CT, CT unknown) LUMBAR SPINE WO CON, 10/07/2022, 13:31. (unknown) (no (unknown) (unknown) CT Scan Report (units (unknown) date) unknown) (unknown) (no (unknown) (unknown) Chest wall: A (units ( unknown) date) cardiac pacemaker unknown) is seen with pulse generator in the left (unknown) (no (unknown) (unknown) Coarse (units (unkno wn) date) unknown) (unknown) (no (unknown) (unknown) : 1935 (units (unknown) date) Acct:[id number] unknown) (unknown) (no (unknown) (unknown) Esophagus is (units (u nknown) date) unknown) (unknown) (no (unknown) (unknown) FINDINGS: (units (unkn own) date) unknown) (unknown) (no (unknown) (unknown) Gallbladder (units (un known) date) contains multiple unknown) gallstones. No signs of acute cholecystitis. (unknown) (no (unknown) (unknown) Genitourinary: (units (unknown) date) Bladder wall unknown) thickness is normal. (unknown) (no (unknown) (unknown) IMPRESSION: (units (un known) date) unknown) (unknown) (no (unknown) (unknown) INDICATIONS: falls (units (unknown) date) with back pain, unknown) known L1 with retropulsion, on thinner (unknown) (no (unknown) (unknown) Image quality: (units (unknown) date) Excellent. unknown) (unknown) (no (unknown) (unknown) [facility] (units (unknown) date) unknown) (unknown) (no (unknown) (unknown) Loc: ED (units (unkno wn) date) unknown) (unknown) (no (unknown) (unknown) Lungs: No (units (unkn own) date) pulmonary unknown) contusions or lacerations. Dependent atelectasis is seen (unknown) (no (unknown) (unknown) Mediastinum: No (units (unknown) date) mediastinal unknown) hematomas. Heart size is normal. No pericardial (unknown) (no (unknown) (unknown) Mild (units (unkno wn) date) unknown) (unknown) (no (unknown) (unknown) Miscellaneous: No (units (unknown) date) ventral hernias. unknown) (unknown) (no (unknown) (unknown) Miscellaneous: (units (unknown) date) There is a fat unknown) containing left inguinal hernia. (unknown) (no (unknown) (unknown) Nodes and vessels: (units (unknown) date) No retroperitoneal unknown) or mesenteric adenopathy. Aorta and (unknown) (no (unknown) (unknown) Ordering Provider: (units (unknown) date) Khari Walls D.O. unknown) (unknown) (no (unknown) (unknown) PELVIS: (units (unkno wn) date) unknown) (unknown) (no (unknown) (unknown) PROCEDURE: CT (units ( unknown) date) CHEST ABD PEL W CON unknown) (unknown) (no (unknown) (unknown) Patient: (units (unkno wn) date) Nicolas Neely unknown) MR#: [id number] (unknown) (no (unknown) (unknown) Peritoneum and (units (unknown) date) bowel: No free unknown) fluid or air. Numerous diverticula are seen in (unknown) (no (unknown) (unknown) Procedure: CT (units ( unknown) date) chest abd pel w con unknown) (unknown) (no (unknown) (unknown) Signed (units (unkno wn) date) unknown) (unknown) (no (unknown) (unknown) Solid organs: The (units (unknown) date) liver is unknown) hypoattenuating, consistent with fatty (unknown) (no (unknown) (unknown) Spleen is normal (units (unknown) date) in size and unknown) enhancement, without lacerations. No adrenal (unknown) (no (unknown) (unknown) T11 vertebral body (units (unknown) date) appears new when unknown) compared to radiographs dated 09/17/2022. (unknown) (no (unknown) (unknown) TECHNIQUE: (units (unk nown) date) unknown) (unknown) (no (unknown) (unknown) Thoracic aorta and (units (unknown) date) pulmonary arteries unknown) demonstrate normal size and enhancement. (unknown) (no (unknown) (unknown) Without signs of (units (unknown) date) acute unknown) diverticulitis. (unknown) (no (unknown) (unknown) acquired (units (unkno wn) date) unknown) (unknown) (no (unknown) (unknown) acquired. (units (unkn own) date) unknown) (unknown) (no (unknown) (unknown) and 11th rib (units (u nknown) date) fractures. A left unknown) medial clavicular fracture is seen with mild (unknown) (no (unknown) (unknown) and (units (unkno wn) date) unknown) (unknown) (no (unknown) (unknown) aortic (units (unkno wn) date) atherosclerotic unknown) calcifications. No mediastinal or hilar adenopathy. (unknown) (no (unknown) (unknown) automated (units (unkn own) date) unknown) (unknown) (no (unknown) (unknown) calcifications in (units (unknown) date) the spleen are most unknown) likely secondary to prior granulomatous (unknown) (no (unknown) (unknown) calcifications. (units (unknown) date) unknown) (unknown) (no (unknown) (unknown) cava are normal in (units (unknown) date) size and unknown) enhancement. Mild aortic atherosclerotic (unknown) (no (unknown) (unknown) changes. (units (unkno wn) date) unknown) (unknown) (no (unknown) (unknown) chest. No (units (unkn own) date) unknown) (unknown) (no (unknown) (unknown) chronic. (units (unkno wn) date) unknown) (unknown) (no (unknown) (unknown) compression (units (un known) date) fractures at L1 unknown) through L4 do not appear significantly changed with (unknown) (no (unknown) (unknown) deformity at the (units (unknown) date) unknown) (unknown) (no (unknown) (unknown) disease. (units (unkno wn) date) unknown) (unknown) (no (unknown) (unknown) do not appear (units ( unknown) date) significantly unknown) changed when compared to the CT from 10/07/2022. (unknown) (no (unknown) (unknown) effusion. (units (unkn own) date) unknown) (unknown) (no (unknown) (unknown) exposure control, (units (unknown) date) adjustment of mA unknown) and/or kV according to patient size. (unknown) (no (unknown) (unknown) fractures (units (unkn own) date) unknown) (unknown) (no (unknown) (unknown) from the (units (unkno wn) date) unknown) (unknown) (no (unknown) (unknown) healing changes. (units (unknown) date) unknown) (unknown) (no (unknown) (unknown) healing (units (unkno wn) date) unknown) (unknown) (no (unknown) (unknown) hematomas. (units (unk nown) date) unknown) (unknown) (no (unknown) (unknown) in the (units (unkno wn) date) unknown) (unknown) (no (unknown) (unknown) including at L1, (units (unknown) date) L2, L3, and L4 with unknown) retropulsion of osseous fragments. These (unknown) (no (unknown) (unknown) inferior vena (units ( unknown) date) unknown) (unknown) (no (unknown) (unknown) infiltration. (units ( unknown) date) unknown) (unknown) (no (unknown) (unknown) joint with (units (unk nown) date) unknown) (unknown) (no (unknown) (unknown) left 10th (units (unkn own) date) unknown) (unknown) (no (unknown) (unknown) lung apices to the (units (unknown) date) symphysis. 2.5 mm unknown) thick coronal and sagittal reformats were (unknown) (no (unknown) (unknown) lung bases. No (units (unknown) date) focal unknown) consolidation. No pneumothorax or hemothorax. Central (unknown) (no (unknown) (unknown) moderate (units (unkno wn) date) compression unknown) fracture at T11 appears new when compared to the (unknown) (no (unknown) (unknown) normal in caliber. (units (unknown) date) Small hiatal unknown) hernia. (unknown) (no (unknown) (unknown) peripheral airways (units (unknown) date) appear patent and unknown) normal in caliber. (unknown) (no (unknown) (unknown) radiographs from (units (unknown) date) unknown) (unknown) (no (unknown) (unknown) retropulsion of (units (unknown) date) osseous fragments unknown) at L1. (unknown) (no (unknown) (unknown) subcutaneous (units (u nknown) date) emphysema. No unknown) axillary or supraclavicular adenopathy. Thyroid is (unknown) (no (unknown) (unknown) system is (units (unkn own) date) non-dilated. unknown) Pancreas enhances normally, without transection. (unknown) (no (unknown) (unknown) the kidneys (units (un known) date) unknown) (unknown) (no (unknown) (unknown) the spine (units (unkn own) date) unknown) (unknown) (no (unknown) (unknown) the: (units (unkno wn) date) unknown) (unknown) (no (unknown) (unknown) through the lungs. (units (unknown) date) Optional 10-minute unknown) delayed imaging may be performed from (unknown) (no (unknown) (unknown) to the bladder. (units (unknown) date) For radiation dose unknown) reduction, the following was used: (unknown) (no (unknown) (unknown) unchanged (units (unkn own) date) unknown) (unknown) (no (unknown) (unknown) unremarkable. (units ( unknown) date) unknown) Result panel 240 (unknown) (no (unknown) (unknown) (no value) (units (unk nown) date) unknown) (unknown) (no (unknown) (unknown) 10/24/22 (units (unkno wn) date) 10/24/22 10/24/22 unknown) Range/Units (unknown) (no (unknown) (unknown) 10/24/22 16:28 (units (unknown) date) unknown) (unknown) (no (unknown) (unknown) 10/24/22 16:35 (units (unknown) date) unknown) (unknown) (no (unknown) (unknown) 10/24/22 16:40 (units (unknown) date) unknown) (unknown) (no (unknown) (unknown) 10/24/22 16:55 (units (unknown) date) unknown) (unknown) (no (unknown) (unknown) 10/24/22 17:49 (units (unknown) date) unknown) (unknown) (no (unknown) (unknown) 10/24/22 (units (unkno wn) date) Range/Units unknown) (unknown) (no (unknown) (unknown) 10/24/22 (units (unkno wn) date) unknown) (unknown) (no (unknown) (unknown) [id number] (units (unkno wn) date) unknown) (unknown) (no (unknown) (unknown) 12 point review (units (unknown) date) of systems is unknown) negative except for those stated above (unknown) (no (unknown) (unknown) 16:14 10/24/22 (units (unknown) date) unknown) (unknown) (no (unknown) (unknown) 16:40 16:40 (units (un known) date) 16:40 unknown) (unknown) (no (unknown) (unknown) 16:51 10/24/22 (units (unknown) date) unknown) (unknown) (no (unknown) (unknown) 16:52 10/24/22 (units (unknown) date) unknown) (unknown) (no (unknown) (unknown) 16:52 (units (unkno wn) date) unknown) (unknown) (no (unknown) (unknown) 16:55 (units (unkno wn) date) unknown) (unknown) (no (unknown) (unknown) 17:00 10/24/22 (units (unknown) date) unknown) (unknown) (no (unknown) (unknown) 17:00 (units (unkno wn) date) unknown) (unknown) (no (unknown) (unknown) 17:16 10/24/22 (units (unknown) date) unknown) (unknown) (no (unknown) (unknown) 17:20 10/24/22 (units (unknown) date) unknown) (unknown) (no (unknown) (unknown) 17:20 (units (unkno wn) date) unknown) (unknown) (no (unknown) (unknown) 17:30 10/24/22 (units (unknown) date) unknown) (unknown) (no (unknown) (unknown) 17:31 10/24/22 (units (unknown) date) unknown) (unknown) (no (unknown) (unknown) 17:31 (units (unkno wn) date) unknown) (unknown) (no (unknown) (unknown) 17:35 10/24/22 (units (unknown) date) unknown) (unknown) (no (unknown) (unknown) 17:35 (units (unkno wn) date) unknown) (unknown) (no (unknown) (unknown) 17:40 10/24/22 (units (unknown) date) unknown) (unknown) (no (unknown) (unknown) 86-year-old male (units (unknown) date) slightly poor unknown) historian with history of AFib on Xarelto for (unknown) (no (unknown) (unknown) ALT (<50) IU/L (units (unknown) date) unknown) (unknown) (no (unknown) (unknown) ALT 27 (<50) (units (u nknown) date) IU/L unknown) (unknown) (no (unknown) (unknown) APTT (26-36) (units (u nknown) date) SECONDS unknown) (unknown) (no (unknown) (unknown) APTT 36 (26-36) (units (unknown) date) SECONDS unknown) (unknown) (no (unknown) (unknown) AST (17-59) IU/L (units (unknown) date) unknown) (unknown) (no (unknown) (unknown) AST 32 (17-59) (units (unknown) date) IU/L unknown) (unknown) (no (unknown) (unknown) Age/Sex: 86 / M (units (unknown) date) unknown) (unknown) (no (unknown) (unknown) Alkaline (units (unkno wn) date) Phosphatase unknown) (38-126) U/L (unknown) (no (unknown) (unknown) Alkaline (units (unkno wn) date) Phosphatase 108 unknown) (38-126) U/L (unknown) (no (unknown) (unknown) Amiodarone (units (unk nown) date) HCl/Dextrose unknown) (Nexterone) 150 mg in 100 mls @ 600 mls/hr IV NOW ONE; (unknown) (no (unknown) (unknown) Aspirin (Aspirin (units (unknown) date) 81 Mg Chew Tab) unknown) 324 mg PO NOW ONE (unknown) (no (unknown) (unknown) BACK: Severe (units (u nknown) date) midline, unknown) tenderness significantly worse with motion (unknown) (no (unknown) (unknown) BUN (9-20) mg/dL (units (unknown) date) unknown) (unknown) (no (unknown) (unknown) BUN 9 (9-20) (units (u nknown) date) mg/dL unknown) (unknown) (no (unknown) (unknown) BUN/Creatinine (units (unknown) date) Ratio (6-22) unknown) (unknown) (no (unknown) (unknown) BUN/Creatinine (units (unknown) date) Ratio 11.3 (6-22) unknown) (unknown) (no (unknown) (unknown) Baso # (Auto) (units ( unknown) date) (0-100) /uL unknown) (unknown) (no (unknown) (unknown) Baso # (Auto) (units ( unknown) date) 100 (0-100) /uL unknown) (unknown) (no (unknown) (unknown) Baso % (Auto) (units ( unknown) date) (0-2) % unknown) (unknown) (no (unknown) (unknown) Baso % (Auto) (units ( unknown) date) 1.3 (0-2) % unknown) (unknown) (no (unknown) (unknown) Blood Pressure (units (unknown) date) 105/80 unknown) (unknown) (no (unknown) (unknown) Blood Pressure (units (unknown) date) 119/94 H unknown) (unknown) (no (unknown) (unknown) Blood Pressure (units (unknown) date) 125/90 unknown) (unknown) (no (unknown) (unknown) Blood Pressure (units (unknown) date) 131/85 153/82 H unknown) (unknown) (no (unknown) (unknown) Blood Pressure (units (unknown) date) 134/102 H unknown) (unknown) (no (unknown) (unknown) Blood Pressure (units (unknown) date) 143/81 H 10/24/22 unknown) 16:14 (unknown) (no (unknown) (unknown) Blood Pressure (units (unknown) date) 143/81 H 128/82 unknown) (unknown) (no (unknown) (unknown) CARDIOVASCULAR: (units (unknown) date) See HPI unknown) (unknown) (no (unknown) (unknown) CARDIOVASCULAR: (units (unknown) date) Tachycardic and unknown) irregular rhythm without murmurs, gallops, or (unknown) (no (unknown) (unknown) CK-MB (CK-2) Rel (units (unknown) date) Index TNP unknown) (unknown) (no (unknown) (unknown) CK-MB (CK-2) Rel (units (unknown) date) Index unknown) (unknown) (no (unknown) (unknown) CK-MB (CK-2) TNP (units (unknown) date) unknown) (unknown) (no (unknown) (unknown) CK-MB (CK-2) (units (u nknown) date) unknown) (unknown) (no (unknown) (unknown) COVID19 -Nasal (units (unknown) date) RAPID/Pre-Proc unknown) Stat (unknown) (no (unknown) (unknown) Calcium (units (unkno wn) date) (8.4-10.2) mg/dL unknown) (unknown) (no (unknown) (unknown) Calcium 9.0 (units (un known) date) (8.4-10.2) mg/dL unknown) (unknown) (no (unknown) (unknown) Carbon Dioxide (units (unknown) date) (22-32) mmol/L unknown) (unknown) (no (unknown) (unknown) Carbon Dioxide (units (unknown) date) 23 (22-32) mmol/L unknown) (unknown) (no (unknown) (unknown) Chief Complaint: (units (unknown) date) Arrhythmia/Palpit unknown) ations (unknown) (no (unknown) (unknown) Chloride (units (unkno wn) date) (98-107) mmol/L unknown) (unknown) (no (unknown) (unknown) Chloride 106 (units (u nknown) date) (98-107) mmol/L unknown) (unknown) (no (unknown) (unknown) Complete Blood (units (unknown) date) Count AUTO DIFF unknown) Stat (unknown) (no (unknown) (unknown) Comprehensive (units ( unknown) date) Metabolic Panel unknown) Stat (unknown) (no (unknown) (unknown) Course (units (unkno wn) date) unknown) (unknown) (no (unknown) (unknown) Creatinine (units (unk nown) date) (0.66-1.25) mg/dL unknown) (unknown) (no (unknown) (unknown) Creatinine 0.80 (units (unknown) date) (0.66-1.25) mg/dL unknown) (unknown) (no (unknown) (unknown) : 1935 (units (unknown) date) Acct:[id number] unknown) (unknown) (no (unknown) (unknown) Date of Service: (units (unknown) date) 10/24/22 unknown) (unknown) (no (unknown) (unknown) Discontinued (units (u nknown) date) Medications unknown) (unknown) (no (unknown) (unknown) Documented By: (units (unknown) date) RL unknown) (unknown) (no (unknown) (unknown) ED Orders (units (unkn own) date) unknown) (unknown) (no (unknown) (unknown) EKG-12 Lead (units (un known) date) Routine unknown) (unknown) (no (unknown) (unknown) EKG-12 Lead Stat (units (unknown) date) unknown) (unknown) (no (unknown) (unknown) ENT: Nose (units (unkn own) date) without bleeding, unknown) purulent drainage. Throat without erythema, (unknown) (no (unknown) (unknown) ER Physician: (units ( unknown) date) Khari Walls unknown) D.O. (unknown) (no (unknown) (unknown) EXTREMITIES: No (units (unknown) date) edema or joint unknown) tenderness. (unknown) (no (unknown) (unknown) EYES: Pupils (units (u nknown) date) equal round and unknown) reactive. Extraocular motions intact. No scleral (unknown) (no (unknown) (unknown) Emergency Report (units (unknown) date) unknown) (unknown) (no (unknown) (unknown) Eos # (Auto) (units (u nknown) date) (0-450) /uL unknown) (unknown) (no (unknown) (unknown) Eos # (Auto) 200 (units (unknown) date) (0-450) /uL unknown) (unknown) (no (unknown) (unknown) Eos % (Auto) (units (u nknown) date) (2-4) % unknown) (unknown) (no (unknown) (unknown) Eos % (Auto) 2.1 (units (unknown) date) (2-4) % unknown) (unknown) (no (unknown) (unknown) Estimated GFR > (units (unknown) date) 60 (>60) mL/min unknown) (unknown) (no (unknown) (unknown) Estimated GFR (units ( unknown) date) (>60) mL/min unknown) (unknown) (no (unknown) (unknown) Exam Narrative: (units (unknown) date) unknown) (unknown) (no (unknown) (unknown) Exam (units (unkno wn) date) unknown) (unknown) (no (unknown) (unknown) GASTROINTESTINAL (units (unknown) date) : Abdomen soft, unknown) non-tender, nondistended. (unknown) (no (unknown) (unknown) GASTROINTESTINAL (units (unknown) date) : Denies nausea, unknown) vomiting, abdominal pain, diarrhea, (unknown) (no (unknown) (unknown) GENERAL: Denies (units (unknown) date) chills, fatigue, unknown) malaise, fever, sweats. (unknown) (no (unknown) (unknown) GENERAL: [86] (units ( unknown) date) year old patient unknown) appears stated age. Well-developed patient, in (unknown) (no (unknown) (unknown) : Denies (units (unk n) date) dysuria, unknown) frequency, incontinence, hematuria, urinary retention. (unknown) (no (unknown) (unknown) General (units (o wn) date) unknown) (unknown) (no (unknown) (unknown) Glucose (80-110) (units (unknown) date) mg/dL unknown) (unknown) (no (unknown) (unknown) Glucose 89 (units (unk n) date) (80-110) mg/dL unknown) (unknown) (no (unknown) (unknown) HEAD: (units (o wn) date) Atraumatic. unknown) Normocephalic. (unknown) (no (unknown) (unknown) HEENT: Denies (units ( unknown) date) sinus pain, ear unknown) pain, sore throat, difficulty swallowing, (unknown) (no (unknown) (unknown) HPI - (units (o wn) date) Arrhythmia/Palpit unknown) ations (unknown) (no (unknown) (unknown) HPI narrative: (units (unknown) date) unknown) (unknown) (no (unknown) (unknown) Hct (41-53) % (units ( unknown) date) unknown) (unknown) (no (unknown) (unknown) Hct 45.9 (41-53) (units (unknown) date) % unknown) (unknown) (no (unknown) (unknown) He states he has (units (unknown) date) significant pain unknown) that is worse with range of motion and (unknown) (no (unknown) (unknown) Hgb (13.5-17.5) (units (unknown) date) g/dL unknown) (unknown) (no (unknown) (unknown) Hgb 15.6 (units (o wn) date) (13.5-17.5) g/dL unknown) (unknown) (no (unknown) (unknown) History of (units (unk nown) date) Present Illness unknown) (unknown) (no (unknown) (unknown) INR (0.9-1.3) (units ( unknown) date) unknown) (unknown) (no (unknown) (unknown) INR 1.5 H (units (unkn own) date) (0.9-1.3) unknown) (unknown) (no (unknown) (unknown) Initial Vital (units ( unknown) date) Signs unknown) (unknown) (no (unknown) (unknown) Initial Vital (units ( unknown) date) Signs: unknown) (unknown) (no (unknown) (unknown) [facility] (units (unknown) date) [address] unknown) [place] [address] (unknown) (no (unknown) (unknown) Lab Data (units (unkno wn) date) unknown) (unknown) (no (unknown) (unknown) Lab Results (units (un known) date) unknown) (unknown) (no (unknown) (unknown) Labs: (units (unkno wn) date) unknown) (unknown) (no (unknown) (unknown) Last Admin: (units (un known) date) 10/24/22 16:53 unknown) Dose: 324 mg (unknown) (no (unknown) (unknown) Last Admin: (units (un known) date) 10/24/22 17:42 unknown) Dose: 40 mg (unknown) (no (unknown) (unknown) Lipase (23-300) (units (unknown) date) U/L unknown) (unknown) (no (unknown) (unknown) Lipase 169 (units (unk nown) date) (23-300) U/L unknown) (unknown) (no (unknown) (unknown) Lipase Stat (units (un known) date) unknown) (unknown) (no (unknown) (unknown) Lymph # (Auto) (units (unknown) date) (4072-5288) /uL unknown) (unknown) (no (unknown) (unknown) Lymph # (Auto) (units (unknown) date) 2300 (2567-4245) unknown) /uL (unknown) (no (unknown) (unknown) Lymph % (Auto) (units (unknown) date) (25-40) % unknown) (unknown) (no (unknown) (unknown) Lymph % (Auto) (units (unknown) date) 22.0 L (25-40) % unknown) (unknown) (no (unknown) (unknown) MCH (26-34) PG (units (unknown) date) unknown) (unknown) (no (unknown) (unknown) MCH 33.9 (26-34) (units (unknown) date) PG unknown) (unknown) (no (unknown) (unknown) MCHC (30-36) % (units (unknown) date) unknown) (unknown) (no (unknown) (unknown) MCHC 34.1 (units (unkn own) date) (30-36) % unknown) (unknown) (no (unknown) (unknown) MCV (80-100) fL (units (unknown) date) unknown) (unknown) (no (unknown) (unknown) MCV 99.4 (units (unkno wn) date) (80-100) fL unknown) (unknown) (no (unknown) (unknown) MDM - (units (unkno wn) date) Arrhythmia/Palpit unknown) ations (unknown) (no (unknown) (unknown) MUSCULOSKELETAL: (units (unknown) date) See HPI unknown) (unknown) (no (unknown) (unknown) Magnesium (units (unkn own) date) (1.6-2.3) mg/dL unknown) (unknown) (no (unknown) (unknown) Magnesium 1.9 (units ( unknown) date) (1.6-2.3) mg/dL unknown) (unknown) (no (unknown) (unknown) Magnesium Stat (units (unknown) date) unknown) (unknown) (no (unknown) (unknown) Mode of arrival: (units (unknown) date) Family Vehicle unknown) (unknown) (no (unknown) (unknown) Brule # (Auto) (units ( unknown) date) (0-900) /uL unknown) (unknown) (no (unknown) (unknown) Brule # (Auto) (units ( unknown) date) 1100 H (0-900) unknown) /uL (unknown) (no (unknown) (unknown) Brule % (Auto) (units ( unknown) date) (3-14) % unknown) (unknown) (no (unknown) (unknown) Brule % (Auto) (units ( unknown) date) 11.0 (3-14) % unknown) (unknown) (no (unknown) (unknown) NECK: Trachea (units ( unknown) date) midline. Non unknown) tender (unknown) (no (unknown) (unknown) NEURO: AOx3. (units (u nknown) date) unknown) (unknown) (no (unknown) (unknown) NEUROLOGIC: See (units (unknown) date) HPI unknown) (unknown) (no (unknown) (unknown) Narrative (units (unkn own) date) unknown) (unknown) (no (unknown) (unknown) Narrative: (units (unk nown) date) unknown) (unknown) (no (unknown) (unknown) Neut # (Auto) (units ( unknown) date) (9237-0874) /uL unknown) (unknown) (no (unknown) (unknown) Neut # (Auto) (units ( unknown) date) 6500 (0941-0790) unknown) /uL (unknown) (no (unknown) (unknown) Neut % (Auto) (units ( unknown) date) (50-75) % unknown) (unknown) (no (unknown) (unknown) Neut % (Auto) (units ( unknown) date) 63.6 (50-75) % unknown) (unknown) (no (unknown) (unknown) Ordered: (units (unkno wn) date) unknown) (unknown) (no (unknown) (unknown) Orders (units (unkno wn) date) unknown) (unknown) (no (unknown) (unknown) Oxygen Delivery (units (unknown) date) Method 10/24/22 unknown) 16:14 (unknown) (no (unknown) (unknown) Oxygen Delivery (units (unknown) date) Method Room Air unknown) (unknown) (no (unknown) (unknown) Oxygen Delivery (units (unknown) date) Method unknown) (unknown) (no (unknown) (unknown) PSYCHIATRIC: No (units (unknown) date) concerning unknown) psychosocial issues. (unknown) (no (unknown) (unknown) PT (10.1-12.7) (units (unknown) date) SECONDS unknown) (unknown) (no (unknown) (unknown) PT 17.4 H (units (unkn own) date) (10.1-12.7) unknown) SECONDS (unknown) (no (unknown) (unknown) Partial (units (unkno wn) date) Thromboplastin unknown) Time Stat (unknown) (no (unknown) (unknown) Patient History (units (unknown) date) unknown) (unknown) (no (unknown) (unknown) Patient: (units (unkno wn) date) Nicolas Neely unknown) MR#: [id number] (unknown) (no (unknown) (unknown) Plt Count (units (unkn own) date) (150-400) X103/uL unknown) (unknown) (no (unknown) (unknown) Plt Count 218 (units ( unknown) date) (150-400) X103/uL unknown) (unknown) (no (unknown) (unknown) Potassium (units (unkn own) date) (3.4-5.1) mmol/L unknown) (unknown) (no (unknown) (unknown) Potassium 3.8 (units ( unknown) date) (3.4-5.1) mmol/L unknown) (unknown) (no (unknown) (unknown) Propofol (units (unkno wn) date) (Propofol 200 unknown) Mg/20 Ml Vial) 70 mg 1 mg/kg (70 mg) IV NOW ONE (unknown) (no (unknown) (unknown) Prothrombin Time (units (unknown) date) INR Stat unknown) (unknown) (no (unknown) (unknown) Protocol (units (unkno wn) date) unknown) (unknown) (no (unknown) (unknown) Pulse Oximetry (units (unknown) date) 96 95 unknown) (unknown) (no (unknown) (unknown) Pulse Oximetry (units (unknown) date) 96 unknown) (unknown) (no (unknown) (unknown) Pulse Oximetry (units (unknown) date) 97 10/24/22 16:14 unknown) (unknown) (no (unknown) (unknown) Pulse Oximetry (units (unknown) date) 97 97 unknown) (unknown) (no (unknown) (unknown) Pulse Rate 133 H (units (unknown) date) unknown) (unknown) (no (unknown) (unknown) Pulse Rate 135 H (units (unknown) date) 10/24/22 16:14 unknown) (unknown) (no (unknown) (unknown) Pulse Rate 135 H (units (unknown) date) 118 H unknown) (unknown) (no (unknown) (unknown) Pulse Rate 135 H (units (unknown) date) 130 H unknown) (unknown) (no (unknown) (unknown) Pulse Rate 136 H (units (unknown) date) 131 H unknown) (unknown) (no (unknown) (unknown) Pulse Rate 138 H (units (unknown) date) 140 H unknown) (unknown) (no (unknown) (unknown) Pulse Rate 143 H (units (unknown) date) 136 H unknown) (unknown) (no (unknown) (unknown) RBC (4.5-5.9) (units ( unknown) date) X106/uL unknown) (unknown) (no (unknown) (unknown) RBC 4.62 (units (unkno wn) date) (4.5-5.9) X106/uL unknown) (unknown) (no (unknown) (unknown) RDW (11.6-14.8) (units (unknown) date) % unknown) (unknown) (no (unknown) (unknown) RDW 14.5 (units (unkno wn) date) (11.6-14.8) % unknown) (unknown) (no (unknown) (unknown) RESPIRATORY: (units (un known) date) Clear to unknown) auscultation. Breath sounds equal bilaterally. No wheezes, (unknown) (no (unknown) (unknown) RESPIRATORY: See (units (unknown) date) HPI unknown) (unknown) (no (unknown) (unknown) Respiratory Rate (units (unknown) date) 11 L unknown) (unknown) (no (unknown) (unknown) Respiratory Rate (units (unknown) date) 13 10 L unknown) (unknown) (no (unknown) (unknown) Respiratory Rate (units (unknown) date) 15 16 unknown) (unknown) (no (unknown) (unknown) Respiratory Rate (units (unknown) date) 18 12 unknown) (unknown) (no (unknown) (unknown) Respiratory Rate (units (unknown) date) 19 10/24/22 16:14 unknown) (unknown) (no (unknown) (unknown) Respiratory Rate (units (unknown) date) 19 22 unknown) (unknown) (no (unknown) (unknown) Respiratory Rate (units (unknown) date) 20 13 unknown) (unknown) (no (unknown) (unknown) Result diagrams: (units (unknown) date) unknown) (unknown) (no (unknown) (unknown) Review of (units (unkn own) date) Systems unknown) (unknown) (no (unknown) (unknown) SARS-CoV-2 (PCR) (units (unknown) date) (Negative) unknown) (unknown) (no (unknown) (unknown) SARS-CoV-2 (PCR) (units (unknown) date) Negative unknown) (Negative) (unknown) (no (unknown) (unknown) SKIN: Denies (units (u nknown) date) rash, skin unknown) lesions, or other (unknown) (no (unknown) (unknown) SKIN: No rash or (units (unknown) date) erythema of unknown) visible areas (unknown) (no (unknown) (unknown) Signed By: (units (unk nown) date) unknown) (unknown) (no (unknown) (unknown) Smoking Status: (units (unknown) date) Never smoker unknown) (unknown) (no (unknown) (unknown) Social History (units (unknown) date) unknown) (unknown) (no (unknown) (unknown) Sodium (137-145) (units (unknown) date) mmol/L unknown) (unknown) (no (unknown) (unknown) Sodium 139 (units (unk nown) date) (137-145) mmol/L unknown) (unknown) (no (unknown) (unknown) Source: patient (units (unknown) date) unknown) (unknown) (no (unknown) (unknown) Stated (units (unkno wn) date) Complaint: Back unknown) pain (unknown) (no (unknown) (unknown) Stop: 10/24/22 (units (unknown) date) 16:29 unknown) (unknown) (no (unknown) (unknown) Stop: 10/24/22 (units (unknown) date) 17:28 unknown) (unknown) (no (unknown) (unknown) Stop: 10/24/22 (units (unknown) date) 18:31 unknown) (unknown) (no (unknown) (unknown) Temperature 98.2 (units (unknown) date) F 10/24/22 16:14 unknown) (unknown) (no (unknown) (unknown) Temperature 98.2 (units (unknown) date) F unknown) (unknown) (no (unknown) (unknown) Temperature (units (un known) date) unknown) (unknown) (no (unknown) (unknown) Time Seen by (units (u nknown) date) Provider: unknown) 10/24/22 16:34 (unknown) (no (unknown) (unknown) Total Bilirubin (units (unknown) date) (0.2-1.3) mg/dL unknown) (unknown) (no (unknown) (unknown) Total Bilirubin (units (unknown) date) 1.1 (0.2-1.3) unknown) mg/dL (unknown) (no (unknown) (unknown) Total Creatine (units (unknown) date) Kinase < 20 L unknown) (55-170) U/L (unknown) (no (unknown) (unknown) Total Creatine (units (unknown) date) Kinase (55-170) unknown) U/L (unknown) (no (unknown) (unknown) Total Protein (units ( unknown) date) (6.3-8.2) g/dL unknown) (unknown) (no (unknown) (unknown) Total Protein (units ( unknown) date) 7.9 (6.3-8.2) unknown) g/dL (unknown) (no (unknown) (unknown) Troponin + CK (units ( unknown) date) Cardiac Panel unknown) Stat (unknown) (no (unknown) (unknown) Troponin I < (units (u nknown) date) 0.012 unknown) (0.01-0.034) ng/mL (unknown) (no (unknown) (unknown) Troponin I (units (unk nown) date) (0.01-0.034) unknown) ng/mL (unknown) (no (unknown) (unknown) Vital Signs - 8 (units (unknown) date) hr unknown) (unknown) (no (unknown) (unknown) Vital Signs (units (un known) date) unknown) (unknown) (no (unknown) (unknown) Vital signs: (units (u nknown) date) unknown) (unknown) (no (unknown) (unknown) WBC (4.5-11.0) (units (unknown) date) X103/uL unknown) (unknown) (no (unknown) (unknown) WBC 10.3 (units (unkno wn) date) (4.5-11.0) unknown) X103/uL (unknown) (no (unknown) (unknown) XR chest 1V Stat (units (unknown) date) unknown) (unknown) (no (unknown) (unknown) [Embedded Image (units (unknown) date) Not Available] unknown) (unknown) (no (unknown) (unknown) alcohol intake (units (unknown) date) frequency: unknown) holidays/special occasions only (unknown) (no (unknown) (unknown) but primarily (units ( unknown) date) due to severe unknown) midline low back pain. He had 2 falls, the most (unknown) (no (unknown) (unknown) constipation, (units ( unknown) date) melena. unknown) (unknown) (no (unknown) (unknown) dizziness. 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 He denies any (unknown) (no (unknown) (unknown) frequently short (units (unknown) date) of breath but unknown) admits that the majority of his day is consume (unknown) (no (unknown) (unknown) icterus. No (units (un known) date) injection or unknown) drainage. (unknown) (no (unknown) (unknown) improves with (units ( unknown) date) rest. He denies unknown) any chest pain but does state that he is (unknown) (no (unknown) (unknown) many years, (units (un known) date) pacemaker unknown) placement for sick sinus syndrome, history of ventricular (unknown) (no (unknown) (unknown) numbness, (units (unkn own) date) tingling or unknown) weakness, denies any loss of control of bowel or bladder. (unknown) (no (unknown) (unknown) obvious (units (unkno wn) date) distress. unknown) Complaining of low back pain (unknown) (no (unknown) (unknown) rales, or (units (unkn own) date) rhonchi. unknown) (unknown) (no (unknown) (unknown) recent of which (units (unknown) date) was in the end of unknown) September and has advanced imaging from our (unknown) (no (unknown) (unknown) rubs. (units (unkno wn) date) unknown) (unknown) (no (unknown) (unknown) tachycardia (units (un known) date) presents for unknown) evaluation episodes of shortness of breath and fatigue (unknown) (no (unknown) (unknown) tonsillar (units (unkn own) date) hypertrophy or unknown) exudate. Airway patent. (unknown) (no (unknown) (unknown) with severe pain (units (unknown) date) unknown) Result panel 241 (unknown) (no (unknown) (unknown) (no value) (units (unk nown) date) unknown) (unknown) (no (unknown) (unknown) 10/24/22 (units (unkno wn) date) 10/24/22 10/24/22 unknown) Range/Units (unknown) (no (unknown) (unknown) 10/24/22 16:28 (units (unknown) date) unknown) (unknown) (no (unknown) (unknown) 10/24/22 16:35 (units (unknown) date) unknown) (unknown) (no (unknown) (unknown) 10/24/22 16:40 (units (unknown) date) unknown) (unknown) (no (unknown) (unknown) 10/24/22 16:55 (units (unknown) date) unknown) (unknown) (no (unknown) (unknown) 10/24/22 17:49 (units (unknown) date) unknown) (unknown) (no (unknown) (unknown) 10/24/22 18:28 (units (unknown) date) unknown) (unknown) (no (unknown) (unknown) 10/24/22 (units (unkno wn) date) Range/Units unknown) (unknown) (no (unknown) (unknown) 10/24/22 (units (unkno wn) date) unknown) (unknown) (no (unknown) (unknown) [id number] (units (unkno wn) date) unknown) (unknown) (no (unknown) (unknown) 12 point review (units (unknown) date) of systems is unknown) negative except for those stated above (unknown) (no (unknown) (unknown) 16:14 10/24/22 (units (unknown) date) unknown) (unknown) (no (unknown) (unknown) 16:40 16:40 (units (un known) date) 16:40 unknown) (unknown) (no (unknown) (unknown) 16:51 10/24/22 (units (unknown) date) unknown) (unknown) (no (unknown) (unknown) 16:52 10/24/22 (units (unknown) date) unknown) (unknown) (no (unknown) (unknown) 16:52 (units (unkno wn) date) unknown) (unknown) (no (unknown) (unknown) 16:55 (units (unkno wn) date) unknown) (unknown) (no (unknown) (unknown) 17:00 10/24/22 (units (unknown) date) unknown) (unknown) (no (unknown) (unknown) 17:00 (units (unkno wn) date) unknown) (unknown) (no (unknown) (unknown) 17:16 10/24/22 (units (unknown) date) unknown) (unknown) (no (unknown) (unknown) 17:20 10/24/22 (units (unknown) date) unknown) (unknown) (no (unknown) (unknown) 17:20 (units (unkno wn) date) unknown) (unknown) (no (unknown) (unknown) 17:30 10/24/22 (units (unknown) date) unknown) (unknown) (no (unknown) (unknown) 17:31 10/24/22 (units (unknown) date) unknown) (unknown) (no (unknown) (unknown) 17:31 (units (unkno wn) date) unknown) (unknown) (no (unknown) (unknown) 17:35 10/24/22 (units (unknown) date) unknown) (unknown) (no (unknown) (unknown) 17:35 (units (unkno wn) date) unknown) (unknown) (no (unknown) (unknown) 17:40 10/24/22 (units (unknown) date) unknown) (unknown) (no (unknown) (unknown) 86-year-old male (units (unknown) date) slightly poor unknown) historian with history of AFib on Xarelto for (unknown) (no (unknown) (unknown) ALT (<50) IU/L (units (unknown) date) unknown) (unknown) (no (unknown) (unknown) ALT 27 (<50) (units (u nknown) date) IU/L unknown) (unknown) (no (unknown) (unknown) APTT (26-36) (units (u nknown) date) SECONDS unknown) (unknown) (no (unknown) (unknown) APTT 36 (26-36) (units (unknown) date) SECONDS unknown) (unknown) (no (unknown) (unknown) AST (17-59) IU/L (units (unknown) date) unknown) (unknown) (no (unknown) (unknown) AST 32 (17-59) (units (unknown) date) IU/L unknown) (unknown) (no (unknown) (unknown) Age/Sex: 86 / M (units (unknown) date) unknown) (unknown) (no (unknown) (unknown) Alkaline (units (unkno wn) date) Phosphatase unknown) (38-126) U/L (unknown) (no (unknown) (unknown) Alkaline (units (unkno wn) date) Phosphatase 108 unknown) (38-126) U/L (unknown) (no (unknown) (unknown) Amiodarone (units (unk nown) date) HCl/Dextrose unknown) (Nexterone) 150 mg in 100 mls @ 600 mls/hr IV NOW ONE; (unknown) (no (unknown) (unknown) Aspirin (Aspirin (units (unknown) date) 81 Mg Chew Tab) unknown) 324 mg PO NOW ONE (unknown) (no (unknown) (unknown) BACK: Severe (units (u nknown) date) midline, unknown) tenderness significantly worse with motion (unknown) (no (unknown) (unknown) BUN (9-20) mg/dL (units (unknown) date) unknown) (unknown) (no (unknown) (unknown) BUN 9 (9-20) (units (u nknown) date) mg/dL unknown) (unknown) (no (unknown) (unknown) BUN/Creatinine (units (unknown) date) Ratio (6-22) unknown) (unknown) (no (unknown) (unknown) BUN/Creatinine (units (unknown) date) Ratio 11.3 (6-22) unknown) (unknown) (no (unknown) (unknown) Baso # (Auto) (units ( unknown) date) (0-100) /uL unknown) (unknown) (no (unknown) (unknown) Baso # (Auto) (units ( unknown) date) 100 (0-100) /uL unknown) (unknown) (no (unknown) (unknown) Baso % (Auto) (units ( unknown) date) (0-2) % unknown) (unknown) (no (unknown) (unknown) Baso % (Auto) (units ( unknown) date) 1.3 (0-2) % unknown) (unknown) (no (unknown) (unknown) Blood Pressure (units (unknown) date) 105/80 unknown) (unknown) (no (unknown) (unknown) Blood Pressure (units (unknown) date) 119/94 H unknown) (unknown) (no (unknown) (unknown) Blood Pressure (units (unknown) date) 125/90 unknown) (unknown) (no (unknown) (unknown) Blood Pressure (units (unknown) date) 131/85 153/82 H unknown) (unknown) (no (unknown) (unknown) Blood Pressure (units (unknown) date) 134/102 H unknown) (unknown) (no (unknown) (unknown) Blood Pressure (units (unknown) date) 143/81 H 10/24/22 unknown) 16:14 (unknown) (no (unknown) (unknown) Blood Pressure (units (unknown) date) 143/81 H 128/82 unknown) (unknown) (no (unknown) (unknown) CARDIOVASCULAR: (units (unknown) date) See HPI unknown) (unknown) (no (unknown) (unknown) CARDIOVASCULAR: (units (unknown) date) Tachycardic and unknown) irregular rhythm without murmurs, gallops, or (unknown) (no (unknown) (unknown) CK-MB (CK-2) Rel (units (unknown) date) Index TNP unknown) (unknown) (no (unknown) (unknown) CK-MB (CK-2) Rel (units (unknown) date) Index unknown) (unknown) (no (unknown) (unknown) CK-MB (CK-2) TNP (units (unknown) date) unknown) (unknown) (no (unknown) (unknown) CK-MB (CK-2) (units (u nknown) date) unknown) (unknown) (no (unknown) (unknown) COVID19 -Nasal (units (unknown) date) RAPID/Pre-Proc unknown) Stat (unknown) (no (unknown) (unknown) CT chest abd pel (units (unknown) date) w con Stat unknown) (unknown) (no (unknown) (unknown) Calcium (units (unkno wn) date) (8.4-10.2) mg/dL unknown) (unknown) (no (unknown) (unknown) Calcium 9.0 (units (un known) date) (8.4-10.2) mg/dL unknown) (unknown) (no (unknown) (unknown) Carbon Dioxide (units (unknown) date) (22-32) mmol/L unknown) (unknown) (no (unknown) (unknown) Carbon Dioxide (units (unknown) date) 23 (22-32) mmol/L unknown) (unknown) (no (unknown) (unknown) Chief Complaint: (units (unknown) date) Arrhythmia/Palpit unknown) ations (unknown) (no (unknown) (unknown) Chloride (units (unkno wn) date) (98-107) mmol/L unknown) (unknown) (no (unknown) (unknown) Chloride 106 (units (u nknown) date) (98-107) mmol/L unknown) (unknown) (no (unknown) (unknown) Complete Blood (units (unknown) date) Count AUTO DIFF unknown) Stat (unknown) (no (unknown) (unknown) Comprehensive (units ( unknown) date) Metabolic Panel unknown) Stat (unknown) (no (unknown) (unknown) Consultation #1: (units (unknown) date) unknown) (unknown) (no (unknown) (unknown) Consultations (units ( unknown) date) unknown) (unknown) (no (unknown) (unknown) Course (units (unkno wn) date) unknown) (unknown) (no (unknown) (unknown) Creatinine (units (unk nown) date) (0.66-1.25) mg/dL unknown) (unknown) (no (unknown) (unknown) Creatinine 0.80 (units (unknown) date) (0.66-1.25) mg/dL unknown) (unknown) (no (unknown) (unknown) : 1935 (units (unknown) date) Acct:[id number] unknown) (unknown) (no (unknown) (unknown) Date of Service: (units (unknown) date) 10/24/22 unknown) (unknown) (no (unknown) (unknown) Discontinued (units (u nknown) date) Medications unknown) (unknown) (no (unknown) (unknown) Documented By: (units (unknown) date) RL unknown) (unknown) (no (unknown) (unknown) ED Orders (units (unkn own) date) unknown) (unknown) (no (unknown) (unknown) EKG-12 Lead (units (un known) date) Routine unknown) (unknown) (no (unknown) (unknown) EKG-12 Lead Stat (units (unknown) date) unknown) (unknown) (no (unknown) (unknown) ENT: Nose (units (unkn own) date) without bleeding, unknown) purulent drainage. Throat without erythema, (unknown) (no (unknown) (unknown) ER Physician: (units ( unknown) date) Khari Walls unknown) D.O. (unknown) (no (unknown) (unknown) EXTREMITIES: No (units (unknown) date) edema or joint unknown) tenderness. (unknown) (no (unknown) (unknown) EYES: Pupils (units (u nknown) date) equal round and unknown) reactive. Extraocular motions intact. No scleral (unknown) (no (unknown) (unknown) Emergency Report (units (unknown) date) unknown) (unknown) (no (unknown) (unknown) Eos # (Auto) (units (u nknown) date) (0-450) /uL unknown) (unknown) (no (unknown) (unknown) Eos # (Auto) 200 (units (unknown) date) (0-450) /uL unknown) (unknown) (no (unknown) (unknown) Eos % (Auto) (units (u nknown) date) (2-4) % unknown) (unknown) (no (unknown) (unknown) Eos % (Auto) 2.1 (units (unknown) date) (2-4) % unknown) (unknown) (no (unknown) (unknown) Estimated GFR > (units (unknown) date) 60 (>60) mL/min unknown) (unknown) (no (unknown) (unknown) Estimated GFR (units ( unknown) date) (>60) mL/min unknown) (unknown) (no (unknown) (unknown) Exam Narrative: (units (unknown) date) unknown) (unknown) (no (unknown) (unknown) Exam (units (unkno wn) date) unknown) (unknown) (no (unknown) (unknown) GASTROINTESTINAL (units (unknown) date) : Abdomen soft, unknown) non-tender, nondistended. (unknown) (no (unknown) (unknown) GASTROINTESTINAL (units (unknown) date) : Denies nausea, unknown) vomiting, abdominal pain, diarrhea, (unknown) (no (unknown) (unknown) GENERAL: Denies (units (unknown) date) chills, fatigue, unknown) malaise, fever, sweats. (unknown) (no (unknown) (unknown) GENERAL: [86] (units ( unknown) date) year old patient unknown) appears stated age. Well-developed patient, in (unknown) (no (unknown) (unknown) : Denies (units (unk n) date) dysuria, unknown) frequency, incontinence, hematuria, urinary retention. (unknown) (no (unknown) (unknown) General (units (unkno wn) date) unknown) (unknown) (no (unknown) (unknown) Glucose (80-110) (units (unknown) date) mg/dL unknown) (unknown) (no (unknown) (unknown) Glucose 89 (units (unk nown) date) (80-110) mg/dL unknown) (unknown) (no (unknown) (unknown) HEAD: (units (o wn) date) Atraumatic. unknown) Normocephalic. (unknown) (no (unknown) (unknown) HEENT: Denies (units ( unknown) date) sinus pain, ear unknown) pain, sore throat, difficulty swallowing, (unknown) (no (unknown) (unknown) HPI - (units (unkno wn) date) Arrhythmia/Palpit unknown) ations (unknown) (no (unknown) (unknown) HPI narrative: (units (unknown) date) unknown) (unknown) (no (unknown) (unknown) Hct (41-53) % (units ( unknown) date) unknown) (unknown) (no (unknown) (unknown) Hct 45.9 (41-53) (units (unknown) date) % unknown) (unknown) (no (unknown) (unknown) He states he has (units (unknown) date) significant pain unknown) that is worse with range of motion and (unknown) (no (unknown) (unknown) Hgb (13.5-17.5) (units (unknown) date) g/dL unknown) (unknown) (no (unknown) (unknown) Hgb 15.6 (units (unkno wn) date) (13.5-17.5) g/dL unknown) (unknown) (no (unknown) (unknown) History of (units (unk nown) date) Present Illness unknown) (unknown) (no (unknown) (unknown) INR (0.9-1.3) (units ( unknown) date) unknown) (unknown) (no (unknown) (unknown) INR 1.5 H (units (unkn own) date) (0.9-1.3) unknown) (unknown) (no (unknown) (unknown) Initial Vital (units ( unknown) date) Signs unknown) (unknown) (no (unknown) (unknown) Initial Vital (units ( unknown) date) Signs: unknown) (unknown) (no (unknown) (unknown) [facility] (units (unknown) date) [address] [place] [address] unknown) [place] [address] (unknown) (no (unknown) (unknown) Lab Data (units (unkno wn) date) unknown) (unknown) (no (unknown) (unknown) Lab Results (units (un known) date) unknown) (unknown) (no (unknown) (unknown) Labs: (units (unkno wn) date) unknown) (unknown) (no (unknown) (unknown) Last Admin: (units (un known) date) 10/24/22 16:53 unknown) Dose: 324 mg (unknown) (no (unknown) (unknown) Last Admin: (units (un known) date) 10/24/22 17:42 unknown) Dose: 40 mg (unknown) (no (unknown) (unknown) Lipase (23-300) (units (unknown) date) U/L unknown) (unknown) (no (unknown) (unknown) Lipase 169 (units (unk nown) date) (23-300) U/L unknown) (unknown) (no (unknown) (unknown) Lipase Stat (units (un known) date) unknown) (unknown) (no (unknown) (unknown) Lymph # (Auto) (units (unknown) date) (1279-1490) /uL unknown) (unknown) (no (unknown) (unknown) Lymph # (Auto) (units (unknown) date) 2300 (6425-5822) unknown) /uL (unknown) (no (unknown) (unknown) Lymph % (Auto) (units (unknown) date) (25-40) % unknown) (unknown) (no (unknown) (unknown) Lymph % (Auto) (units (unknown) date) 22.0 L (25-40) % unknown) (unknown) (no (unknown) (unknown) MCH (26-34) PG (units (unknown) date) unknown) (unknown) (no (unknown) (unknown) MCH 33.9 (26-34) (units (unknown) date) PG unknown) (unknown) (no (unknown) (unknown) MCHC (30-36) % (units (unknown) date) unknown) (unknown) (no (unknown) (unknown) MCHC 34.1 (units (unkn own) date) (30-36) % unknown) (unknown) (no (unknown) (unknown) MCV (80-100) fL (units (unknown) date) unknown) (unknown) (no (unknown) (unknown) MCV 99.4 (units (unkno wn) date) (80-100) fL unknown) (unknown) (no (unknown) (unknown) MDM - (units (unkno wn) date) Arrhythmia/Palpit unknown) ations (unknown) (no (unknown) (unknown) MUSCULOSKELETAL: (units (unknown) date) See HPI unknown) (unknown) (no (unknown) (unknown) Magnesium (units (unkn own) date) (1.6-2.3) mg/dL unknown) (unknown) (no (unknown) (unknown) Magnesium 1.9 (units ( unknown) date) (1.6-2.3) mg/dL unknown) (unknown) (no (unknown) (unknown) Magnesium Stat (units (unknown) date) unknown) (unknown) (no (unknown) (unknown) Mode of arrival: (units (unknown) date) Family Vehicle unknown) (unknown) (no (unknown) (unknown) Brule # (Auto) (units ( unknown) date) (0-900) /uL unknown) (unknown) (no (unknown) (unknown) Brule # (Auto) (units ( unknown) date) 1100 H (0-900) unknown) /uL (unknown) (no (unknown) (unknown) Brule % (Auto) (units ( unknown) date) (3-14) % unknown) (unknown) (no (unknown) (unknown) Brule % (Auto) (units ( unknown) date) 11.0 (3-14) % unknown) (unknown) (no (unknown) (unknown) NECK: [place] (units ( unknown) date) midline. Non unknown) tender (unknown) (no (unknown) (unknown) NEURO: AOx3. (units (u nknown) date) unknown) (unknown) (no (unknown) (unknown) NEUROLOGIC: See (units (unknown) date) HPI unknown) (unknown) (no (unknown) (unknown) Narrative (units (unkn own) date) unknown) (unknown) (no (unknown) (unknown) Narrative: (units (unk nown) date) unknown) (unknown) (no (unknown) (unknown) Neut # (Auto) (units ( unknown) date) (4028-7779) /uL unknown) (unknown) (no (unknown) (unknown) Neut # (Auto) (units ( unknown) date) 6500 (5760-6897) unknown) /uL (unknown) (no (unknown) (unknown) Neut % (Auto) (units ( unknown) date) (50-75) % unknown) (unknown) (no (unknown) (unknown) Neut % (Auto) (units ( unknown) date) 63.6 (50-75) % unknown) (unknown) (no (unknown) (unknown) Ordered: (units (unkno wn) date) unknown) (unknown) (no (unknown) (unknown) Orders (units (unkno wn) date) unknown) (unknown) (no (unknown) (unknown) Oxygen Delivery (units (unknown) date) Method 10/24/22 unknown) 16:14 (unknown) (no (unknown) (unknown) Oxygen Delivery (units (unknown) date) Method Room Air unknown) (unknown) (no (unknown) (unknown) Oxygen Delivery (units (unknown) date) Method unknown) (unknown) (no (unknown) (unknown) PSYCHIATRIC: No (units (unknown) date) concerning unknown) psychosocial issues. (unknown) (no (unknown) (unknown) PT (10.1-12.7) (units (unknown) date) SECONDS unknown) (unknown) (no (unknown) (unknown) PT 17.4 H (units (unkn own) date) (10.1-12.7) unknown) SECONDS (unknown) (no (unknown) (unknown) Partial (units (o wn) date) Thromboplastin unknown) Time Stat (unknown) (no (unknown) (unknown) Patient History (units (unknown) date) unknown) (unknown) (no (unknown) (unknown) Patient (units (o wn) date) converted as unknown) noted above, however 2 episodes of nonsustained V-tach in (unknown) (no (unknown) (unknown) Patient: (units (unkno wn) date) Nicolas Neely unknown) MR#: [id number] (unknown) (no (unknown) (unknown) Plt Count (units (unkn own) date) (150-400) X103/uL unknown) (unknown) (no (unknown) (unknown) Plt Count 218 (units ( unknown) date) (150-400) X103/uL unknown) (unknown) (no (unknown) (unknown) Potassium (units (unkn own) date) (3.4-5.1) mmol/L unknown) (unknown) (no (unknown) (unknown) Potassium 3.8 (units ( unknown) date) (3.4-5.1) mmol/L unknown) (unknown) (no (unknown) (unknown) Propofol (units (o wn) date) (Propofol 200 unknown) Mg/20 Ml Vial) 70 mg 1 mg/kg (70 mg) IV NOW ONE (unknown) (no (unknown) (unknown) Prothrombin Time (units (unknown) date) INR Stat unknown) (unknown) (no (unknown) (unknown) Protocol (units (unkno wn) date) unknown) (unknown) (no (unknown) (unknown) Pulse Oximetry (units (unknown) date) 96 95 unknown) (unknown) (no (unknown) (unknown) Pulse Oximetry (units (unknown) date) 96 unknown) (unknown) (no (unknown) (unknown) Pulse Oximetry (units (unknown) date) 97 10/24/22 16:14 unknown) (unknown) (no (unknown) (unknown) Pulse Oximetry (units (unknown) date) 97 97 unknown) (unknown) (no (unknown) (unknown) Pulse Rate 133 H (units (unknown) date) unknown) (unknown) (no (unknown) (unknown) Pulse Rate 135 H (units (unknown) date) 10/24/22 16:14 unknown) (unknown) (no (unknown) (unknown) Pulse Rate 135 H (units (unknown) date) 118 H unknown) (unknown) (no (unknown) (unknown) Pulse Rate 135 H (units (unknown) date) 130 H unknown) (unknown) (no (unknown) (unknown) Pulse Rate 136 H (units (unknown) date) 131 H unknown) (unknown) (no (unknown) (unknown) Pulse Rate 138 H (units (unknown) date) 140 H unknown) (unknown) (no (unknown) (unknown) Pulse Rate 143 H (units (unknown) date) 136 H unknown) (unknown) (no (unknown) (unknown) RBC (4.5-5.9) (units ( unknown) date) X106/uL unknown) (unknown) (no (unknown) (unknown) RBC 4.62 (units (unkno wn) date) (4.5-5.9) X106/uL unknown) (unknown) (no (unknown) (unknown) RDW (11.6-14.8) (units (unknown) date) % unknown) (unknown) (no (unknown) (unknown) RDW 14.5 (units (unkno wn) date) (11.6-14.8) % unknown) (unknown) (no (unknown) (unknown) RESPIRATORY: (units (un known) date) Clear to unknown) auscultation. Breath sounds equal bilaterally. No wheezes, (unknown) (no (unknown) (unknown) RESPIRATORY: See (units (unknown) date) HPI unknown) (unknown) (no (unknown) (unknown) Reevaluation #1: (units (unknown) date) unknown) (unknown) (no (unknown) (unknown) Reevaluation(s) (units (unknown) date) unknown) (unknown) (no (unknown) (unknown) Respiratory Rate (units (unknown) date) 11 L unknown) (unknown) (no (unknown) (unknown) Respiratory Rate (units (unknown) date) 13 10 L unknown) (unknown) (no (unknown) (unknown) Respiratory Rate (units (unknown) date) 15 16 unknown) (unknown) (no (unknown) (unknown) Respiratory Rate (units (unknown) date) 18 12 unknown) (unknown) (no (unknown) (unknown) Respiratory Rate (units (unknown) date) 19 10/24/22 16:14 unknown) (unknown) (no (unknown) (unknown) Respiratory Rate (units (unknown) date) 19 22 unknown) (unknown) (no (unknown) (unknown) Respiratory Rate (units (unknown) date) 20 13 unknown) (unknown) (no (unknown) (unknown) Result diagrams: (units (unknown) date) unknown) (unknown) (no (unknown) (unknown) Review of (units (unkn own) date) Systems unknown) (unknown) (no (unknown) (unknown) SARS-CoV-2 (PCR) (units (unknown) date) (Negative) unknown) (unknown) (no (unknown) (unknown) SARS-CoV-2 (PCR) (units (unknown) date) Negative unknown) (Negative) (unknown) (no (unknown) (unknown) SKIN: Denies (units (u nknown) date) rash, skin unknown) lesions, or other (unknown) (no (unknown) (unknown) SKIN: No rash or (units (unknown) date) erythema of unknown) visible areas (unknown) (no (unknown) (unknown) Signed By: (units (unk nown) date) unknown) (unknown) (no (unknown) (unknown) Smoking Status: (units (unknown) date) Never smoker unknown) (unknown) (no (unknown) (unknown) Social History (units (unknown) date) unknown) (unknown) (no (unknown) (unknown) Sodium (137-145) (units (unknown) date) mmol/L unknown) (unknown) (no (unknown) (unknown) Sodium 139 (units (unk nown) date) (137-145) mmol/L unknown) (unknown) (no (unknown) (unknown) Source: patient (units (unknown) date) unknown) (unknown) (no (unknown) (unknown) Stated (units (unkno wn) date) Complaint: Back unknown) pain (unknown) (no (unknown) (unknown) Stop: 10/24/22 (units (unknown) date) 16:29 unknown) (unknown) (no (unknown) (unknown) Stop: 10/24/22 (units (unknown) date) 17:28 unknown) (unknown) (no (unknown) (unknown) Stop: 10/24/22 (units (unknown) date) 18:31 unknown) (unknown) (no (unknown) (unknown) Temperature 98.2 (units (unknown) date) F 10/24/22 16:14 unknown) (unknown) (no (unknown) (unknown) Temperature 98.2 (units (unknown) date) F unknown) (unknown) (no (unknown) (unknown) Temperature (units (un known) date) unknown) (unknown) (no (unknown) (unknown) Time Seen by (units (u nknown) date) Provider: unknown) 10/24/22 16:34 (unknown) (no (unknown) (unknown) Total Bilirubin (units (unknown) date) (0.2-1.3) mg/dL unknown) (unknown) (no (unknown) (unknown) Total Bilirubin (units (unknown) date) 1.1 (0.2-1.3) unknown) mg/dL (unknown) (no (unknown) (unknown) Total Creatine (units (unknown) date) Kinase < 20 L unknown) (55-170) U/L (unknown) (no (unknown) (unknown) Total Creatine (units (unknown) date) Kinase (55-170) unknown) U/L (unknown) (no (unknown) (unknown) Total Protein (units ( unknown) date) (6.3-8.2) g/dL unknown) (unknown) (no (unknown) (unknown) Total Protein (units ( unknown) date) 7.9 (6.3-8.2) unknown) g/dL (unknown) (no (unknown) (unknown) Troponin + CK (units ( unknown) date) Cardiac Panel unknown) Stat (unknown) (no (unknown) (unknown) Troponin I < (units (u nknown) date) 0.012 unknown) (0.01-0.034) ng/mL (unknown) (no (unknown) (unknown) Troponin I (units (unk nown) date) (0.01-0.034) unknown) ng/mL (unknown) (no (unknown) (unknown) Vital Signs - 8 (units (unknown) date) hr unknown) (unknown) (no (unknown) (unknown) Vital Signs (units (un known) date) unknown) (unknown) (no (unknown) (unknown) Vital signs: (units (u nknown) date) unknown) (unknown) (no (unknown) (unknown) WBC (4.5-11.0) (units (unknown) date) X103/uL unknown) (unknown) (no (unknown) (unknown) WBC 10.3 (units (unkno wn) date) (4.5-11.0) unknown) X103/uL (unknown) (no (unknown) (unknown) XR chest 1V Stat (units (unknown) date) unknown) (unknown) (no (unknown) (unknown) [Embedded Image (units (unknown) date) Not Available] unknown) (unknown) (no (unknown) (unknown) alcohol intake (units (unknown) date) frequency: unknown) holidays/special occasions only (unknown) (no (unknown) (unknown) but primarily (units ( unknown) date) due to severe unknown) midline low back pain. He had 2 falls, the most (unknown) (no (unknown) (unknown) constipation, (units ( unknown) date) melena. unknown) (unknown) (no (unknown) (unknown) discussed with (units (unknown) date) Dr. Renee (on unknown) call Cardio), no indication for amio at this (unknown) (no (unknown) (unknown) dizziness. 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 He denies any (unknown) (no (unknown) (unknown) frequently short (units (unknown) date) of breath but unknown) admits that the majority of his day is consume (unknown) (no (unknown) (unknown) icterus. No (units (un known) date) injection or unknown) drainage. (unknown) (no (unknown) (unknown) improves with (units ( unknown) date) rest. He denies unknown) any chest pain but does state that he is (unknown) (no (unknown) (unknown) many years, (units (un known) date) pacemaker unknown) placement for sick sinus syndrome, history of ventricular (unknown) (no (unknown) (unknown) numbness, (units (unkn own) date) tingling or unknown) weakness, denies any loss of control of bowel or bladder. (unknown) (no (unknown) (unknown) obvious (units (unkno wn) date) distress. unknown) Complaining of low back pain (unknown) (no (unknown) (unknown) palpitations, (units ( unknown) date) chest pain or unknown) shortness of breath this. (unknown) (no (unknown) (unknown) rales, or (units (unkn own) date) rhonchi. unknown) (unknown) (no (unknown) (unknown) recent of which (units (unknown) date) was in the end of unknown) September and has advanced imaging from our (unknown) (no (unknown) (unknown) rubs. (units (unkno wn) date) unknown) (unknown) (no (unknown) (unknown) tachycardia (units (un known) date) presents for unknown) evaluation episodes of shortness of breath and fatigue (unknown) (no (unknown) (unknown) the aftermath (units ( unknown) date) measuring 8 and unknown) 10 beats a piece, patient did not have any (unknown) (no (unknown) (unknown) time, consult (units ( unknown) date) with [facility] unknown) (unknown) (no (unknown) (unknown) tonsillar (units (unkn own) date) hypertrophy or unknown) exudate. Airway patent. (unknown) (no (unknown) (unknown) with severe pain (units (unknown) date) unknown) Result panel 242 (unknown) (no (unknown) (unknown) (no value) (units (unk nown) date) unknown) (unknown) (no (unknown) (unknown) 10/24/22 (units (unkno wn) date) 10/24/22 10/24/22 unknown) Range/Units (unknown) (no (unknown) (unknown) 10/24/22 16:28 (units (unknown) date) unknown) (unknown) (no (unknown) (unknown) 10/24/22 16:35 (units (unknown) date) unknown) (unknown) (no (unknown) (unknown) 10/24/22 16:40 (units (unknown) date) unknown) (unknown) (no (unknown) (unknown) 10/24/22 16:55 (units (unknown) date) unknown) (unknown) (no (unknown) (unknown) 10/24/22 17:49 (units (unknown) date) unknown) (unknown) (no (unknown) (unknown) 10/24/22 18:28 (units (unknown) date) unknown) (unknown) (no (unknown) (unknown) 10/24/22 (units (unkno wn) date) Range/Units unknown) (unknown) (no (unknown) (unknown) 10/24/22 (units (unkno wn) date) unknown) (unknown) (no (unknown) (unknown) [id number] (units (unkno wn) date) unknown) (unknown) (no (unknown) (unknown) 12 point review (units (unknown) date) of systems is unknown) negative except for those stated above (unknown) (no (unknown) (unknown) 16:14 10/24/22 (units (unknown) date) unknown) (unknown) (no (unknown) (unknown) 16:40 16:40 (units (un known) date) 16:40 unknown) (unknown) (no (unknown) (unknown) 16:51 10/24/22 (units (unknown) date) unknown) (unknown) (no (unknown) (unknown) 16:52 10/24/22 (units (unknown) date) unknown) (unknown) (no (unknown) (unknown) 16:52 (units (unkno wn) date) unknown) (unknown) (no (unknown) (unknown) 16:55 (units (unkno wn) date) unknown) (unknown) (no (unknown) (unknown) 17:00 10/24/22 (units (unknown) date) unknown) (unknown) (no (unknown) (unknown) 17:00 (units (unkno wn) date) unknown) (unknown) (no (unknown) (unknown) 17:16 10/24/22 (units (unknown) date) unknown) (unknown) (no (unknown) (unknown) 17:20 10/24/22 (units (unknown) date) unknown) (unknown) (no (unknown) (unknown) 17:20 (units (unkno wn) date) unknown) (unknown) (no (unknown) (unknown) 17:30 10/24/22 (units (unknown) date) unknown) (unknown) (no (unknown) (unknown) 17:31 10/24/22 (units (unknown) date) unknown) (unknown) (no (unknown) (unknown) 17:31 (units (unkno wn) date) unknown) (unknown) (no (unknown) (unknown) 17:35 10/24/22 (units (unknown) date) unknown) (unknown) (no (unknown) (unknown) 17:35 (units (unkno wn) date) unknown) (unknown) (no (unknown) (unknown) 17:40 10/24/22 (units (unknown) date) unknown) (unknown) (no (unknown) (unknown) 86-year-old male (units (unknown) date) slightly poor unknown) historian with history of AFib on Xarelto for (unknown) (no (unknown) (unknown) ALT (<50) IU/L (units (unknown) date) unknown) (unknown) (no (unknown) (unknown) ALT 27 (<50) (units (u nknown) date) IU/L unknown) (unknown) (no (unknown) (unknown) APTT (26-36) (units (u nknown) date) SECONDS unknown) (unknown) (no (unknown) (unknown) APTT 36 (26-36) (units (unknown) date) SECONDS unknown) (unknown) (no (unknown) (unknown) ASA Class: III (units (unknown) date) unknown) (unknown) (no (unknown) (unknown) AST (17-59) IU/L (units (unknown) date) unknown) (unknown) (no (unknown) (unknown) AST 32 (17-59) (units (unknown) date) IU/L unknown) (unknown) (no (unknown) (unknown) Age/Sex: 86 / M (units (unknown) date) unknown) (unknown) (no (unknown) (unknown) Alkaline (units (unkno wn) date) Phosphatase unknown) (38-126) U/L (unknown) (no (unknown) (unknown) Alkaline (units (unkno wn) date) Phosphatase 108 unknown) (38-126) U/L (unknown) (no (unknown) (unknown) Amiodarone (units (unk nown) date) HCl/Dextrose unknown) (Nexterone) 150 mg in 100 mls @ 600 mls/hr IV NOW ONE; (unknown) (no (unknown) (unknown) Aspirin (Aspirin (units (unknown) date) 81 Mg Chew Tab) unknown) 324 mg PO NOW ONE (unknown) (no (unknown) (unknown) BACK: Severe (units (u nknown) date) midline, unknown) tenderness significantly worse with motion (unknown) (no (unknown) (unknown) BUN (9-20) mg/dL (units (unknown) date) unknown) (unknown) (no (unknown) (unknown) BUN 9 (9-20) (units (u nknown) date) mg/dL unknown) (unknown) (no (unknown) (unknown) BUN/Creatinine (units (unknown) date) Ratio (6-22) unknown) (unknown) (no (unknown) (unknown) BUN/Creatinine (units (unknown) date) Ratio 11.3 (6-22) unknown) (unknown) (no (unknown) (unknown) Baso # (Auto) (units ( unknown) date) (0-100) /uL unknown) (unknown) (no (unknown) (unknown) Baso # (Auto) (units ( unknown) date) 100 (0-100) /uL unknown) (unknown) (no (unknown) (unknown) Baso % (Auto) (units ( unknown) date) (0-2) % unknown) (unknown) (no (unknown) (unknown) Baso % (Auto) (units ( unknown) date) 1.3 (0-2) % unknown) (unknown) (no (unknown) (unknown) Blood Pressure (units (unknown) date) 105/80 unknown) (unknown) (no (unknown) (unknown) Blood Pressure (units (unknown) date) 119/94 H unknown) (unknown) (no (unknown) (unknown) Blood Pressure (units (unknown) date) 125/90 unknown) (unknown) (no (unknown) (unknown) Blood Pressure (units (unknown) date) 131/85 153/82 H unknown) (unknown) (no (unknown) (unknown) Blood Pressure (units (unknown) date) 134/102 H unknown) (unknown) (no (unknown) (unknown) Blood Pressure (units (unknown) date) 143/81 H 10/24/22 unknown) 16:14 (unknown) (no (unknown) (unknown) Blood Pressure (units (unknown) date) 143/81 H 128/82 unknown) (unknown) (no (unknown) (unknown) CARDIOVASCULAR: (units (unknown) date) See HPI unknown) (unknown) (no (unknown) (unknown) CARDIOVASCULAR: (units (unknown) date) Tachycardic and unknown) irregular rhythm without murmurs, gallops, or (unknown) (no (unknown) (unknown) CK-MB (CK-2) Rel (units (unknown) date) Index TNP unknown) (unknown) (no (unknown) (unknown) CK-MB (CK-2) Rel (units (unknown) date) Index unknown) (unknown) (no (unknown) (unknown) CK-MB (CK-2) TNP (units (unknown) date) unknown) (unknown) (no (unknown) (unknown) CK-MB (CK-2) (units (u nknown) date) unknown) (unknown) (no (unknown) (unknown) COVID19 -Nasal (units (unknown) date) RAPID/Pre-Proc unknown) Stat (unknown) (no (unknown) (unknown) CT chest abd pel (units (unknown) date) w con Stat unknown) (unknown) (no (unknown) (unknown) Calcium (units (unkno wn) date) (8.4-10.2) mg/dL unknown) (unknown) (no (unknown) (unknown) Calcium 9.0 (units (un known) date) (8.4-10.2) mg/dL unknown) (unknown) (no (unknown) (unknown) Carbon Dioxide (units (unknown) date) (22-32) mmol/L unknown) (unknown) (no (unknown) (unknown) Carbon Dioxide (units (unknown) date) 23 (22-32) mmol/L unknown) (unknown) (no (unknown) (unknown) Cardiac rhythm (units (unknown) date) post-cardioversio unknown) n: NSR (unknown) (no (unknown) (unknown) Cardioversion (units ( unknown) date) unknown) (unknown) (no (unknown) (unknown) Chief Complaint: (units (unknown) date) Arrhythmia/Palpit unknown) ations (unknown) (no (unknown) (unknown) Chloride (units (unkno wn) date) (98-107) mmol/L unknown) (unknown) (no (unknown) (unknown) Chloride 106 (units (u nknown) date) (98-107) mmol/L unknown) (unknown) (no (unknown) (unknown) Complete Blood (units (unknown) date) Count AUTO DIFF unknown) Stat (unknown) (no (unknown) (unknown) Complications: (units (unknown) date) none unknown) (unknown) (no (unknown) (unknown) Comprehensive (units ( unknown) date) Metabolic Panel unknown) Stat (unknown) (no (unknown) (unknown) Consent Signed: (units (unknown) date) Yes unknown) (unknown) (no (unknown) (unknown) Consent signed: (units (unknown) date) Yes unknown) (unknown) (no (unknown) (unknown) Consultation #1: (units (unknown) date) unknown) (unknown) (no (unknown) (unknown) Consultations (units ( unknown) date) unknown) (unknown) (no (unknown) (unknown) Course (units (unkno wn) date) unknown) (unknown) (no (unknown) (unknown) Creatinine (units (unk nown) date) (0.66-1.25) mg/dL unknown) (unknown) (no (unknown) (unknown) Creatinine 0.80 (units (unknown) date) (0.66-1.25) mg/dL unknown) (unknown) (no (unknown) (unknown) : 1935 (units (unknown) date) Acct:[id number] unknown) (unknown) (no (unknown) (unknown) Date of Service: (units (unknown) date) 10/24/22 unknown) (unknown) (no (unknown) (unknown) Discontinued (units (u nknown) date) Medications unknown) (unknown) (no (unknown) (unknown) Documented By: (units (unknown) date) RL unknown) (unknown) (no (unknown) (unknown) ED Orders (units (unkn own) date) unknown) (unknown) (no (unknown) (unknown) ED Sedation (units (un known) date) Level: Moderate unknown) (Concious) (unknown) (no (unknown) (unknown) EKG-12 Lead (units (un known) date) Routine unknown) (unknown) (no (unknown) (unknown) EKG-12 Lead Stat (units (unknown) date) unknown) (unknown) (no (unknown) (unknown) ENT: Nose (units (unkn own) date) without bleeding, unknown) purulent drainage. Throat without erythema, (unknown) (no (unknown) (unknown) ER Physician: (units ( unknown) date) Khari Walls unknown) D.O. (unknown) (no (unknown) (unknown) EXTREMITIES: No (units (unknown) date) edema or joint unknown) tenderness. (unknown) (no (unknown) (unknown) EYES: Pupils (units (u nknown) date) equal round and unknown) reactive. Extraocular motions intact. No scleral (unknown) (no (unknown) (unknown) Emergency Report (units (unknown) date) unknown) (unknown) (no (unknown) (unknown) Eos # (Auto) (units (u nknown) date) (0-450) /uL unknown) (unknown) (no (unknown) (unknown) Eos # (Auto) 200 (units (unknown) date) (0-450) /uL unknown) (unknown) (no (unknown) (unknown) Eos % (Auto) (units (u nknown) date) (2-4) % unknown) (unknown) (no (unknown) (unknown) Eos % (Auto) 2.1 (units (unknown) date) (2-4) % unknown) (unknown) (no (unknown) (unknown) Estimated GFR > (units (unknown) date) 60 (>60) mL/min unknown) (unknown) (no (unknown) (unknown) Estimated GFR (units ( unknown) date) (>60) mL/min unknown) (unknown) (no (unknown) (unknown) Exam Narrative: (units (unknown) date) unknown) (unknown) (no (unknown) (unknown) Exam (units (unkno wn) date) unknown) (unknown) (no (unknown) (unknown) GASTROINTESTINAL (units (unknown) date) : Abdomen soft, unknown) non-tender, nondistended. (unknown) (no (unknown) (unknown) GASTROINTESTINAL (units (unknown) date) : Denies nausea, unknown) vomiting, abdominal pain, diarrhea, (unknown) (no (unknown) (unknown) GENERAL: Denies (units (unknown) date) chills, fatigue, unknown) malaise, fever, sweats. (unknown) (no (unknown) (unknown) GENERAL: [86] (units ( unknown) date) year old patient unknown) appears stated age. Well-developed patient, in (unknown) (no (unknown) (unknown) : Denies (units (unk nown) date) dysuria, unknown) frequency, incontinence, hematuria, urinary retention. (unknown) (no (unknown) (unknown) General (units (unkno wn) date) unknown) (unknown) (no (unknown) (unknown) Glucose (80-110) (units (unknown) date) mg/dL unknown) (unknown) (no (unknown) (unknown) Glucose 89 (units (unk nown) date) (80-110) mg/dL unknown) (unknown) (no (unknown) (unknown) HEAD: (units (unkno wn) date) Atraumatic. unknown) Normocephalic. (unknown) (no (unknown) (unknown) HEENT: Denies (units ( unknown) date) sinus pain, ear unknown) pain, sore throat, difficulty swallowing, (unknown) (no (unknown) (unknown) HPI - (units (unkno wn) date) Arrhythmia/Palpit unknown) ations (unknown) (no (unknown) (unknown) HPI narrative: (units (unknown) date) unknown) (unknown) (no (unknown) (unknown) Hct (41-53) % (units ( unknown) date) unknown) (unknown) (no (unknown) (unknown) Hct 45.9 (41-53) (units (unknown) date) % unknown) (unknown) (no (unknown) (unknown) He states he has (units (unknown) date) significant pain unknown) that is worse with range of motion and (unknown) (no (unknown) (unknown) Hgb (13.5-17.5) (units (unknown) date) g/dL unknown) (unknown) (no (unknown) (unknown) Hgb 15.6 (units (unkno wn) date) (13.5-17.5) g/dL unknown) (unknown) (no (unknown) (unknown) History of (units (unk nown) date) Present Illness unknown) (unknown) (no (unknown) (unknown) INR (0.9-1.3) (units ( unknown) date) unknown) (unknown) (no (unknown) (unknown) INR 1.5 H (units (unkn own) date) (0.9-1.3) unknown) (unknown) (no (unknown) (unknown) IV Propofol dose (units (unknown) date) (mg): 40 unknown) (unknown) (no (unknown) (unknown) Indication: (units (un known) date) cardioversion unknown) (unknown) (no (unknown) (unknown) Indication: (units (un known) date) unknown) (unknown) (no (unknown) (unknown) Initial Vital (units ( unknown) date) Signs unknown) (unknown) (no (unknown) (unknown) Initial Vital (units ( unknown) date) Signs: unknown) (unknown) (no (unknown) (unknown) Intraservice (units (u nknown) date) time/total unknown) sedation time (min): 10 (unknown) (no (unknown) (unknown) [facility] (units (unknown) date) [address] unknown) [place] [address] (unknown) (no (unknown) (unknown) Joules used: 120 (units (unknown) date) unknown) (unknown) (no (unknown) (unknown) Lab Data (units (unkno wn) date) unknown) (unknown) (no (unknown) (unknown) Lab Results (units (un known) date) unknown) (unknown) (no (unknown) (unknown) Labs: (units (unkno wn) date) unknown) (unknown) (no (unknown) (unknown) Last Admin: (units (un known) date) 10/24/22 16:53 unknown) Dose: 324 mg (unknown) (no (unknown) (unknown) Last Admin: (units (un known) date) 10/24/22 17:42 unknown) Dose: 40 mg (unknown) (no (unknown) (unknown) Lipase (23-300) (units (unknown) date) U/L unknown) (unknown) (no (unknown) (unknown) Lipase 169 (units (unk nown) date) (23-300) U/L unknown) (unknown) (no (unknown) (unknown) Lipase Stat (units (un known) date) unknown) (unknown) (no (unknown) (unknown) Lymph # (Auto) (units (unknown) date) (0588-9215) /uL unknown) (unknown) (no (unknown) (unknown) Lymph # (Auto) (units (unknown) date) 2300 (1834-3112) unknown) /uL (unknown) (no (unknown) (unknown) Lymph % (Auto) (units (unknown) date) (25-40) % unknown) (unknown) (no (unknown) (unknown) Lymph % (Auto) (units (unknown) date) 22.0 L (25-40) % unknown) (unknown) (no (unknown) (unknown) MCH (26-34) PG (units (unknown) date) unknown) (unknown) (no (unknown) (unknown) MCH 33.9 (26-34) (units (unknown) date) PG unknown) (unknown) (no (unknown) (unknown) MCHC (30-36) % (units (unknown) date) unknown) (unknown) (no (unknown) (unknown) MCHC 34.1 (units (unkn own) date) (30-36) % unknown) (unknown) (no (unknown) (unknown) MCV (80-100) fL (units (unknown) date) unknown) (unknown) (no (unknown) (unknown) MCV 99.4 (units (unkno wn) date) (80-100) fL unknown) (unknown) (no (unknown) (unknown) MDM - (units (unkno wn) date) Arrhythmia/Palpit unknown) ations (unknown) (no (unknown) (unknown) MUSCULOSKELETAL: (units (unknown) date) See HPI unknown) (unknown) (no (unknown) (unknown) Magnesium (units (unkn own) date) (1.6-2.3) mg/dL unknown) (unknown) (no (unknown) (unknown) Magnesium 1.9 (units ( unknown) date) (1.6-2.3) mg/dL unknown) (unknown) (no (unknown) (unknown) Magnesium Stat (units (unknown) date) unknown) (unknown) (no (unknown) (unknown) Mallampati (units (unk nown) date) Airway unknown) Classification: Class II (unknown) (no (unknown) (unknown) Mode of arrival: (units (unknown) date) Family Vehicle unknown) (unknown) (no (unknown) (unknown) Brule # (Auto) (units ( unknown) date) (0-900) /uL unknown) (unknown) (no (unknown) (unknown) Brule # (Auto) (units ( unknown) date) 1100 H (0-900) unknown) /uL (unknown) (no (unknown) (unknown) Brule % (Auto) (units ( unknown) date) (3-14) % unknown) (unknown) (no (unknown) (unknown) Brule % (Auto) (units ( unknown) date) 11.0 (3-14) % unknown) (unknown) (no (unknown) (unknown) NECK: Trachea (units ( unknown) date) midline. Non unknown) tender (unknown) (no (unknown) (unknown) NEURO: AOx3. (units (u nknown) date) unknown) (unknown) (no (unknown) (unknown) NEUROLOGIC: See (units (unknown) date) HPI unknown) (unknown) (no (unknown) (unknown) Narrative (units (unkn own) date) unknown) (unknown) (no (unknown) (unknown) Narrative: (units (unk nown) date) unknown) (unknown) (no (unknown) (unknown) Neut # (Auto) (units ( unknown) date) (2288-4008) /uL unknown) (unknown) (no (unknown) (unknown) Neut # (Auto) (units ( unknown) date) 6500 (8714-9241) unknown) /uL (unknown) (no (unknown) (unknown) Neut % (Auto) (units ( unknown) date) (50-75) % unknown) (unknown) (no (unknown) (unknown) Neut % (Auto) (units ( unknown) date) 63.6 (50-75) % unknown) (unknown) (no (unknown) (unknown) Number of (units (unkn own) date) attempts unknown) (shocks): 1 (unknown) (no (unknown) (unknown) Ordered: (units (unkno wn) date) unknown) (unknown) (no (unknown) (unknown) Orders (units (unkno wn) date) unknown) (unknown) (no (unknown) (unknown) Oxygen Delivery (units (unknown) date) Method 10/24/22 unknown) 16:14 (unknown) (no (unknown) (unknown) Oxygen Delivery (units (unknown) date) Method Room Air unknown) (unknown) (no (unknown) (unknown) Oxygen Delivery (units (unknown) date) Method unknown) (unknown) (no (unknown) (unknown) PSYCHIATRIC: No (units (unknown) date) concerning unknown) psychosocial issues. (unknown) (no (unknown) (unknown) PT (10.1-12.7) (units (unknown) date) SECONDS unknown) (unknown) (no (unknown) (unknown) PT 17.4 H (units (unkn own) date) (10.1-12.7) unknown) SECONDS (unknown) (no (unknown) (unknown) Partial (units (unkno wn) date) Thromboplastin unknown) Time Stat (unknown) (no (unknown) (unknown) Patient History (units (unknown) date) unknown) (unknown) (no (unknown) (unknown) Patient (units (unkno wn) date) Tolerated unknown) Procedure: Well (unknown) (no (unknown) (unknown) Patient (units (unkno wn) date) converted as unknown) noted above, however 2 episodes of nonsustained V-tach in (unknown) (no (unknown) (unknown) Patient: (units (unkno wn) date) NeelyNicolas unknown) MR#: [id number] (unknown) (no (unknown) (unknown) Plt Count (units (unkn own) date) (150-400) X103/uL unknown) (unknown) (no (unknown) (unknown) Plt Count 218 (units ( unknown) date) (150-400) X103/uL unknown) (unknown) (no (unknown) (unknown) Potassium (units (unkn own) date) (3.4-5.1) mmol/L unknown) (unknown) (no (unknown) (unknown) Potassium 3.8 (units ( unknown) date) (3.4-5.1) mmol/L unknown) (unknown) (no (unknown) (unknown) Preparation: (units (u nknown) date) monitoring and evaluation advisor unknown) applied, pulse oximeter, capnometry used, (unknown) (no (unknown) (unknown) Procedural (units (unk nown) date) Sedation unknown) (unknown) (no (unknown) (unknown) Procedures (units (unk nown) date) unknown) (unknown) (no (unknown) (unknown) Propofol (units (unkno wn) date) (Propofol 200 unknown) Mg/20 Ml Vial) 70 mg 1 mg/kg (70 mg) IV NOW ONE (unknown) (no (unknown) (unknown) Prothrombin Time (units (unknown) date) INR Stat unknown) (unknown) (no (unknown) (unknown) Protocol (units (unkno wn) date) unknown) (unknown) (no (unknown) (unknown) Pulse Oximetry (units (unknown) date) 96 95 unknown) (unknown) (no (unknown) (unknown) Pulse Oximetry (units (unknown) date) 96 unknown) (unknown) (no (unknown) (unknown) Pulse Oximetry (units (unknown) date) 97 10/24/22 16:14 unknown) (unknown) (no (unknown) (unknown) Pulse Oximetry (units (unknown) date) 97 97 unknown) (unknown) (no (unknown) (unknown) Pulse Rate 133 H (units (unknown) date) unknown) (unknown) (no (unknown) (unknown) Pulse Rate 135 H (units (unknown) date) 10/24/22 16:14 unknown) (unknown) (no (unknown) (unknown) Pulse Rate 135 H (units (unknown) date) 118 H unknown) (unknown) (no (unknown) (unknown) Pulse Rate 135 H (units (unknown) date) 130 H unknown) (unknown) (no (unknown) (unknown) Pulse Rate 136 H (units (unknown) date) 131 H unknown) (unknown) (no (unknown) (unknown) Pulse Rate 138 H (units (unknown) date) 140 H unknown) (unknown) (no (unknown) (unknown) Pulse Rate 143 H (units (unknown) date) 136 H unknown) (unknown) (no (unknown) (unknown) RBC (4.5-5.9) (units ( unknown) date) X106/uL unknown) (unknown) (no (unknown) (unknown) RBC 4.62 (units (unkno wn) date) (4.5-5.9) X106/uL unknown) (unknown) (no (unknown) (unknown) RDW (11.6-14.8) (units (unknown) date) % unknown) (unknown) (no (unknown) (unknown) RDW 14.5 (units (unkno wn) date) (11.6-14.8) % unknown) (unknown) (no (unknown) (unknown) RESPIRATORY: (units (un known) date) Clear to unknown) auscultation. Breath sounds equal bilaterally. No wheezes, (unknown) (no (unknown) (unknown) RESPIRATORY: See (units (unknown) date) HPI unknown) (unknown) (no (unknown) (unknown) Reevaluation #1: (units (unknown) date) unknown) (unknown) (no (unknown) (unknown) Reevaluation(s) (units (unknown) date) unknown) (unknown) (no (unknown) (unknown) Respiratory Rate (units (unknown) date) 11 L unknown) (unknown) (no (unknown) (unknown) Respiratory Rate (units (unknown) date) 13 10 L unknown) (unknown) (no (unknown) (unknown) Respiratory Rate (units (unknown) date) 15 16 unknown) (unknown) (no (unknown) (unknown) Respiratory Rate (units (unknown) date) 18 12 unknown) (unknown) (no (unknown) (unknown) Respiratory Rate (units (unknown) date) 19 10/24/22 16:14 unknown) (unknown) (no (unknown) (unknown) Respiratory Rate (units (unknown) date) 19 22 unknown) (unknown) (no (unknown) (unknown) Respiratory Rate (units (unknown) date) 20 13 unknown) (unknown) (no (unknown) (unknown) Result diagrams: (units (unknown) date) unknown) (unknown) (no (unknown) (unknown) Review of (units (unkn own) date) Systems unknown) (unknown) (no (unknown) (unknown) SARS-CoV-2 (PCR) (units (unknown) date) (Negative) unknown) (unknown) (no (unknown) (unknown) SARS-CoV-2 (PCR) (units (unknown) date) Negative unknown) (Negative) (unknown) (no (unknown) (unknown) SKIN: Denies (units (u nknown) date) rash, skin unknown) lesions, or other (unknown) (no (unknown) (unknown) SKIN: No rash or (units (unknown) date) erythema of unknown) visible areas (unknown) (no (unknown) (unknown) Signed By: (units (unk nown) date) unknown) (unknown) (no (unknown) (unknown) Smoking Status: (units (unknown) date) Never smoker unknown) (unknown) (no (unknown) (unknown) Social History (units (unknown) date) unknown) (unknown) (no (unknown) (unknown) Sodium (137-145) (units (unknown) date) mmol/L unknown) (unknown) (no (unknown) (unknown) Sodium 139 (units (unk nown) date) (137-145) mmol/L unknown) (unknown) (no (unknown) (unknown) Source: patient (units (unknown) date) unknown) (unknown) (no (unknown) (unknown) Stability: (units (unk nown) date) Stable unknown) (unknown) (no (unknown) (unknown) Stated (units (unkno wn) date) Complaint: Back unknown) pain (unknown) (no (unknown) (unknown) Stop: 10/24/22 (units (unknown) date) 16:29 unknown) (unknown) (no (unknown) (unknown) Stop: 10/24/22 (units (unknown) date) 17:28 unknown) (unknown) (no (unknown) (unknown) Stop: 10/24/22 (units (unknown) date) 18:31 unknown) (unknown) (no (unknown) (unknown) Temperature 98.2 (units (unknown) date) F 10/24/22 16:14 unknown) (unknown) (no (unknown) (unknown) Temperature 98.2 (units (unknown) date) F unknown) (unknown) (no (unknown) (unknown) Temperature (units (un known) date) unknown) (unknown) (no (unknown) (unknown) Time Seen by (units (u nknown) date) Provider: unknown) 10/24/22 16:34 (unknown) (no (unknown) (unknown) Time out (units (unkno wn) date) performed: Yes unknown) (unknown) (no (unknown) (unknown) Total Bilirubin (units (unknown) date) (0.2-1.3) mg/dL unknown) (unknown) (no (unknown) (unknown) Total Bilirubin (units (unknown) date) 1.1 (0.2-1.3) unknown) mg/dL (unknown) (no (unknown) (unknown) Total Creatine (units (unknown) date) Kinase < 20 L unknown) (55-170) U/L (unknown) (no (unknown) (unknown) Total Creatine (units (unknown) date) Kinase (55-170) unknown) U/L (unknown) (no (unknown) (unknown) Total Protein (units ( unknown) date) (6.3-8.2) g/dL unknown) (unknown) (no (unknown) (unknown) Total Protein (units ( unknown) date) 7.9 (6.3-8.2) unknown) g/dL (unknown) (no (unknown) (unknown) Troponin + CK (units ( unknown) date) Cardiac Panel unknown) Stat (unknown) (no (unknown) (unknown) Troponin I < (units (u nknown) date) 0.012 unknown) (0.01-0.034) ng/mL (unknown) (no (unknown) (unknown) Troponin I (units (unk nown) date) (0.01-0.034) unknown) ng/mL (unknown) (no (unknown) (unknown) Vital Signs - 8 (units (unknown) date) hr unknown) (unknown) (no (unknown) (unknown) Vital Signs (units (un known) date) unknown) (unknown) (no (unknown) (unknown) Vital signs: (units (u nknown) date) unknown) (unknown) (no (unknown) (unknown) WBC (4.5-11.0) (units (unknown) date) X103/uL unknown) (unknown) (no (unknown) (unknown) WBC 10.3 (units (unkno wn) date) (4.5-11.0) unknown) X103/uL (unknown) (no (unknown) (unknown) XR chest 1V Stat (units (unknown) date) unknown) (unknown) (no (unknown) (unknown) [Embedded Image (units (unknown) date) Not Available] unknown) (unknown) (no (unknown) (unknown) alcohol intake (units (unknown) date) frequency: unknown) holidays/special occasions only (unknown) (no (unknown) (unknown) but primarily (units ( unknown) date) due to severe unknown) midline low back pain. He had 2 falls, the most (unknown) (no (unknown) (unknown) constipation, (units ( unknown) date) melena. unknown) (unknown) (no (unknown) (unknown) discussed with (units (unknown) date) Dr. Renee (on unknown) call Cardio), no indication for amio at this (unknown) (no (unknown) (unknown) dizziness. 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 He denies any (unknown) (no (unknown) (unknown) frequently short (units (unknown) date) of breath but unknown) admits that the majority of his day is consume (unknown) (no (unknown) (unknown) icterus. No (units (un known) date) injection or unknown) drainage. (unknown) (no (unknown) (unknown) improves with (units ( unknown) date) rest. He denies unknown) any chest pain but does state that he is (unknown) (no (unknown) (unknown) many years, (units (un known) date) pacemaker unknown) placement for sick sinus syndrome, history of ventricular (unknown) (no (unknown) (unknown) numbness, (units (unkn own) date) tingling or unknown) weakness, denies any loss of control of bowel or bladder. (unknown) (no (unknown) (unknown) obvious (units (unkno wn) date) distress. unknown) Complaining of low back pain (unknown) (no (unknown) (unknown) palpitations, (units ( unknown) date) chest pain or unknown) shortness of breath this. (unknown) (no (unknown) (unknown) rales, or (units (unkn own) date) rhonchi. unknown) (unknown) (no (unknown) (unknown) rapid atrial fib (units (unknown) date) unknown) (unknown) (no (unknown) (unknown) recent of which (units (unknown) date) was in the end of unknown) September and has advanced imaging from our (unknown) (no (unknown) (unknown) rubs. (units (unkno wn) date) unknown) (unknown) (no (unknown) (unknown) supplemental O2 (units (unknown) date) applied, unknown) suction/airway equipment at bedside and IV secured (unknown) (no (unknown) (unknown) tachycardia (units (un known) date) presents for unknown) evaluation episodes of shortness of breath and fatigue (unknown) (no (unknown) (unknown) the aftermath (units ( unknown) date) measuring 8 and unknown) 10 beats a piece, patient did not have any (unknown) (no (unknown) (unknown) time, consult (units ( unknown) date) with Cardio unknown) (unknown) (no (unknown) (unknown) tonsillar (units (unkn own) date) hypertrophy or unknown) exudate. Airway patent. (unknown) (no (unknown) (unknown) with severe pain (units (unknown) date) unknown) Result panel 243 (unknown) (no (unknown) (unknown) (no value) (units (unk nown) date) unknown) (unknown) (no (unknown) (unknown) 10/24/22 (units (unkno wn) date) 10/24/22 10/24/22 unknown) Range/Units (unknown) (no (unknown) (unknown) 10/24/22 16:28 (units (unknown) date) unknown) (unknown) (no (unknown) (unknown) 10/24/22 16:35 (units (unknown) date) unknown) (unknown) (no (unknown) (unknown) 10/24/22 16:40 (units (unknown) date) unknown) (unknown) (no (unknown) (unknown) 10/24/22 16:55 (units (unknown) date) unknown) (unknown) (no (unknown) (unknown) 10/24/22 17:49 (units (unknown) date) unknown) (unknown) (no (unknown) (unknown) 10/24/22 18:28 (units (unknown) date) unknown) (unknown) (no (unknown) (unknown) 10/24/22 (units (unkno wn) date) Range/Units unknown) (unknown) (no (unknown) (unknown) 10/24/22 (units (unkno wn) date) unknown) (unknown) (no (unknown) (unknown) [id number] (units (unkno wn) date) unknown) (unknown) (no (unknown) (unknown) 12 point review (units (unknown) date) of systems is unknown) negative except for those stated above (unknown) (no (unknown) (unknown) 16:14 10/24/22 (units (unknown) date) unknown) (unknown) (no (unknown) (unknown) 16:40 16:40 (units (un known) date) 16:40 unknown) (unknown) (no (unknown) (unknown) 16:51 10/24/22 (units (unknown) date) unknown) (unknown) (no (unknown) (unknown) 16:52 10/24/22 (units (unknown) date) unknown) (unknown) (no (unknown) (unknown) 16:52 (units (unkno wn) date) unknown) (unknown) (no (unknown) (unknown) 16:55 (units (unkno wn) date) unknown) (unknown) (no (unknown) (unknown) 17:00 10/24/22 (units (unknown) date) unknown) (unknown) (no (unknown) (unknown) 17:00 (units (unkno wn) date) unknown) (unknown) (no (unknown) (unknown) 17:16 10/24/22 (units (unknown) date) unknown) (unknown) (no (unknown) (unknown) 17:20 10/24/22 (units (unknown) date) unknown) (unknown) (no (unknown) (unknown) 17:20 (units (unkno wn) date) unknown) (unknown) (no (unknown) (unknown) 17:30 10/24/22 (units (unknown) date) unknown) (unknown) (no (unknown) (unknown) 17:31 10/24/22 (units (unknown) date) unknown) (unknown) (no (unknown) (unknown) 17:31 (units (unkno wn) date) unknown) (unknown) (no (unknown) (unknown) 17:35 10/24/22 (units (unknown) date) unknown) (unknown) (no (unknown) (unknown) 17:35 (units (unkno wn) date) unknown) (unknown) (no (unknown) (unknown) 17:40 10/24/22 (units (unknown) date) unknown) (unknown) (no (unknown) (unknown) 86-year-old male (units (unknown) date) slightly poor unknown) historian with history of AFib on Xarelto for (unknown) (no (unknown) (unknown) ALT (<50) IU/L (units (unknown) date) unknown) (unknown) (no (unknown) (unknown) ALT 27 (<50) (units (u nknown) date) IU/L unknown) (unknown) (no (unknown) (unknown) APTT (26-36) (units (u nknown) date) SECONDS unknown) (unknown) (no (unknown) (unknown) APTT 36 (26-36) (units (unknown) date) SECONDS unknown) (unknown) (no (unknown) (unknown) ASA Class: III (units (unknown) date) unknown) (unknown) (no (unknown) (unknown) AST (17-59) IU/L (units (unknown) date) unknown) (unknown) (no (unknown) (unknown) AST 32 (17-59) (units (unknown) date) IU/L unknown) (unknown) (no (unknown) (unknown) Age/Sex: 86 / M (units (unknown) date) unknown) (unknown) (no (unknown) (unknown) Alkaline (units (unkno wn) date) Phosphatase unknown) (38-126) U/L (unknown) (no (unknown) (unknown) Alkaline (units (unkno wn) date) Phosphatase 108 unknown) (38-126) U/L (unknown) (no (unknown) (unknown) Amiodarone (units (unk nown) date) HCl/Dextrose unknown) (Nexterone) 150 mg in 100 mls @ 600 mls/hr IV NOW ONE; (unknown) (no (unknown) (unknown) Aspirin (Aspirin (units (unknown) date) 81 Mg Chew Tab) unknown) 324 mg PO NOW ONE (unknown) (no (unknown) (unknown) BACK: Severe (units (u nknown) date) midline, unknown) tenderness significantly worse with motion (unknown) (no (unknown) (unknown) BUN (9-20) mg/dL (units (unknown) date) unknown) (unknown) (no (unknown) (unknown) BUN 9 (9-20) (units (u nknown) date) mg/dL unknown) (unknown) (no (unknown) (unknown) BUN/Creatinine (units (unknown) date) Ratio (6-22) unknown) (unknown) (no (unknown) (unknown) BUN/Creatinine (units (unknown) date) Ratio 11.3 (6-22) unknown) (unknown) (no (unknown) (unknown) Baso # (Auto) (units ( unknown) date) (0-100) /uL unknown) (unknown) (no (unknown) (unknown) Baso # (Auto) (units ( unknown) date) 100 (0-100) /uL unknown) (unknown) (no (unknown) (unknown) Baso % (Auto) (units ( unknown) date) (0-2) % unknown) (unknown) (no (unknown) (unknown) Baso % (Auto) (units ( unknown) date) 1.3 (0-2) % unknown) (unknown) (no (unknown) (unknown) Blood Pressure (units (unknown) date) 105/80 unknown) (unknown) (no (unknown) (unknown) Blood Pressure (units (unknown) date) 119/94 H unknown) (unknown) (no (unknown) (unknown) Blood Pressure (units (unknown) date) 125/90 unknown) (unknown) (no (unknown) (unknown) Blood Pressure (units (unknown) date) 131/85 153/82 H unknown) (unknown) (no (unknown) (unknown) Blood Pressure (units (unknown) date) 134/102 H unknown) (unknown) (no (unknown) (unknown) Blood Pressure (units (unknown) date) 143/81 H 10/24/22 unknown) 16:14 (unknown) (no (unknown) (unknown) Blood Pressure (units (unknown) date) 143/81 H 128/82 unknown) (unknown) (no (unknown) (unknown) CARDIOVASCULAR: (units (unknown) date) See HPI unknown) (unknown) (no (unknown) (unknown) CARDIOVASCULAR: (units (unknown) date) Tachycardic and unknown) irregular rhythm without murmurs, gallops, or (unknown) (no (unknown) (unknown) CK-MB (CK-2) Rel (units (unknown) date) Index TNP unknown) (unknown) (no (unknown) (unknown) CK-MB (CK-2) Rel (units (unknown) date) Index unknown) (unknown) (no (unknown) (unknown) CK-MB (CK-2) TNP (units (unknown) date) unknown) (unknown) (no (unknown) (unknown) CK-MB (CK-2) (units (u nknown) date) unknown) (unknown) (no (unknown) (unknown) COVID19 -Nasal (units (unknown) date) RAPID/Pre-Proc unknown) Stat (unknown) (no (unknown) (unknown) CT chest abd pel (units (unknown) date) w con Stat unknown) (unknown) (no (unknown) (unknown) Calcium (units (unkno wn) date) (8.4-10.2) mg/dL unknown) (unknown) (no (unknown) (unknown) Calcium 9.0 (units (un known) date) (8.4-10.2) mg/dL unknown) (unknown) (no (unknown) (unknown) Carbon Dioxide (units (unknown) date) (22-32) mmol/L unknown) (unknown) (no (unknown) (unknown) Carbon Dioxide (units (unknown) date) 23 (22-32) mmol/L unknown) (unknown) (no (unknown) (unknown) Cardiac rhythm (units (unknown) date) post-cardioversio unknown) n: NSR (unknown) (no (unknown) (unknown) Cardioversion (units ( unknown) date) unknown) (unknown) (no (unknown) (unknown) Chief Complaint: (units (unknown) date) Arrhythmia/Palpit unknown) ations (unknown) (no (unknown) (unknown) Chloride (units (unkno wn) date) (98-107) mmol/L unknown) (unknown) (no (unknown) (unknown) Chloride 106 (units (u nknown) date) (98-107) mmol/L unknown) (unknown) (no (unknown) (unknown) Complete Blood (units (unknown) date) Count AUTO DIFF unknown) Stat (unknown) (no (unknown) (unknown) Complications: (units (unknown) date) none unknown) (unknown) (no (unknown) (unknown) Comprehensive (units ( unknown) date) Metabolic Panel unknown) Stat (unknown) (no (unknown) (unknown) Consent Signed: (units (unknown) date) Yes unknown) (unknown) (no (unknown) (unknown) Consent signed: (units (unknown) date) Yes unknown) (unknown) (no (unknown) (unknown) Consultation #1: (units (unknown) date) unknown) (unknown) (no (unknown) (unknown) Consultations (units ( unknown) date) unknown) (unknown) (no (unknown) (unknown) Course (units (unkno wn) date) unknown) (unknown) (no (unknown) (unknown) Creatinine (units (unk nown) date) (0.66-1.25) mg/dL unknown) (unknown) (no (unknown) (unknown) Creatinine 0.80 (units (unknown) date) (0.66-1.25) mg/dL unknown) (unknown) (no (unknown) (unknown) : 1935 (units (unknown) date) Acct:[id number] unknown) (unknown) (no (unknown) (unknown) Date of Service: (units (unknown) date) 10/24/22 unknown) (unknown) (no (unknown) (unknown) Discontinued (units (u nknown) date) Medications unknown) (unknown) (no (unknown) (unknown) Documented By: (units (unknown) date) RL unknown) (unknown) (no (unknown) (unknown) ED Orders (units (unkn own) date) unknown) (unknown) (no (unknown) (unknown) ED Sedation (units (un known) date) Level: Moderate unknown) (Concious) (unknown) (no (unknown) (unknown) EKG-12 Lead (units (un known) date) Routine unknown) (unknown) (no (unknown) (unknown) EKG-12 Lead Stat (units (unknown) date) unknown) (unknown) (no (unknown) (unknown) ENT: Nose (units (unkn own) date) without bleeding, unknown) purulent drainage. Throat without erythema, (unknown) (no (unknown) (unknown) ER Physician: (units ( unknown) date) Khari Walls unknown) D.O. (unknown) (no (unknown) (unknown) EXTREMITIES: No (units (unknown) date) edema or joint unknown) tenderness. (unknown) (no (unknown) (unknown) EYES: Pupils (units (u nknown) date) equal round and unknown) reactive. Extraocular motions intact. No scleral (unknown) (no (unknown) (unknown) Emergency Report (units (unknown) date) unknown) (unknown) (no (unknown) (unknown) Eos # (Auto) (units (u nknown) date) (0-450) /uL unknown) (unknown) (no (unknown) (unknown) Eos # (Auto) 200 (units (unknown) date) (0-450) /uL unknown) (unknown) (no (unknown) (unknown) Eos % (Auto) (units (u nknown) date) (2-4) % unknown) (unknown) (no (unknown) (unknown) Eos % (Auto) 2.1 (units (unknown) date) (2-4) % unknown) (unknown) (no (unknown) (unknown) Estimated GFR > (units (unknown) date) 60 (>60) mL/min unknown) (unknown) (no (unknown) (unknown) Estimated GFR (units ( unknown) date) (>60) mL/min unknown) (unknown) (no (unknown) (unknown) Exam Narrative: (units (unknown) date) unknown) (unknown) (no (unknown) (unknown) Exam (units (unkno wn) date) unknown) (unknown) (no (unknown) (unknown) GASTROINTESTINAL (units (unknown) date) : Abdomen soft, unknown) non-tender, nondistended. (unknown) (no (unknown) (unknown) GASTROINTESTINAL (units (unknown) date) : Denies nausea, unknown) vomiting, abdominal pain, diarrhea, (unknown) (no (unknown) (unknown) GENERAL: Denies (units (unknown) date) chills, fatigue, unknown) malaise, fever, sweats. (unknown) (no (unknown) (unknown) GENERAL: [86] (units ( unknown) date) year old patient unknown) appears stated age. Well-developed patient, in (unknown) (no (unknown) (unknown) : Denies (units (unn) date) dysuria, unknown) frequency, incontinence, hematuria, urinary retention. (unknown) (no (unknown) (unknown) General (units (unkno wn) date) unknown) (unknown) (no (unknown) (unknown) Glucose (80-110) (units (unknown) date) mg/dL unknown) (unknown) (no (unknown) (unknown) Glucose 89 (units (unk n) date) (80-110) mg/dL unknown) (unknown) (no (unknown) (unknown) HEAD: (units ( wn) date) Atraumatic. unknown) Normocephalic. (unknown) (no (unknown) (unknown) HEENT: Denies (units ( unknown) date) sinus pain, ear unknown) pain, sore throat, difficulty swallowing, (unknown) (no (unknown) (unknown) HPI - (units (o wn) date) Arrhythmia/Palpit unknown) ations (unknown) (no (unknown) (unknown) HPI narrative: (units (unknown) date) unknown) (unknown) (no (unknown) (unknown) Hct (41-53) % (units ( unknown) date) unknown) (unknown) (no (unknown) (unknown) Hct 45.9 (41-53) (units (unknown) date) % unknown) (unknown) (no (unknown) (unknown) He states he has (units (unknown) date) significant pain unknown) that is worse with range of motion and (unknown) (no (unknown) (unknown) Hgb (13.5-17.5) (units (unknown) date) g/dL unknown) (unknown) (no (unknown) (unknown) Hgb 15.6 (units (unkno wn) date) (13.5-17.5) g/dL unknown) (unknown) (no (unknown) (unknown) History of (units (unk nown) date) Present Illness unknown) (unknown) (no (unknown) (unknown) INR (0.9-1.3) (units ( unknown) date) unknown) (unknown) (no (unknown) (unknown) INR 1.5 H (units (unkn own) date) (0.9-1.3) unknown) (unknown) (no (unknown) (unknown) IV Propofol dose (units (unknown) date) (mg): 40 unknown) (unknown) (no (unknown) (unknown) Indication: (units (un known) date) cardioversion unknown) (unknown) (no (unknown) (unknown) Indication: (units (un known) date) unknown) (unknown) (no (unknown) (unknown) Initial Vital (units ( unknown) date) Signs unknown) (unknown) (no (unknown) (unknown) Initial Vital (units ( unknown) date) Signs: unknown) (unknown) (no (unknown) (unknown) Intraservice (units (u nknown) date) time/total unknown) sedation time (min): 10 (unknown) (no (unknown) (unknown) [facility] (units (unknown) date) [address] unknown) [place] [address] (unknown) (no (unknown) (unknown) Joules used: 120 (units (unknown) date) unknown) (unknown) (no (unknown) (unknown) Lab Data (units (unkno wn) date) unknown) (unknown) (no (unknown) (unknown) Lab Results (units (un known) date) unknown) (unknown) (no (unknown) (unknown) Labs: (units (unkno wn) date) unknown) (unknown) (no (unknown) (unknown) Last Admin: (units (un known) date) 10/24/22 16:53 unknown) Dose: 324 mg (unknown) (no (unknown) (unknown) Last Admin: (units (un known) date) 10/24/22 17:42 unknown) Dose: 40 mg (unknown) (no (unknown) (unknown) Lipase (23-300) (units (unknown) date) U/L unknown) (unknown) (no (unknown) (unknown) Lipase 169 (units (unk nown) date) (23-300) U/L unknown) (unknown) (no (unknown) (unknown) Lipase Stat (units (un known) date) unknown) (unknown) (no (unknown) (unknown) Lymph # (Auto) (units (unknown) date) (0672-1366) /uL unknown) (unknown) (no (unknown) (unknown) Lymph # (Auto) (units (unknown) date) 2300 (6170-7809) unknown) /uL (unknown) (no (unknown) (unknown) Lymph % (Auto) (units (unknown) date) (25-40) % unknown) (unknown) (no (unknown) (unknown) Lymph % (Auto) (units (unknown) date) 22.0 L (25-40) % unknown) (unknown) (no (unknown) (unknown) MCH (26-34) PG (units (unknown) date) unknown) (unknown) (no (unknown) (unknown) MCH 33.9 (26-34) (units (unknown) date) PG unknown) (unknown) (no (unknown) (unknown) MCHC (30-36) % (units (unknown) date) unknown) (unknown) (no (unknown) (unknown) MCHC 34.1 (units (unkn own) date) (30-36) % unknown) (unknown) (no (unknown) (unknown) MCV (80-100) fL (units (unknown) date) unknown) (unknown) (no (unknown) (unknown) MCV 99.4 (units (unkno wn) date) (80-100) fL unknown) (unknown) (no (unknown) (unknown) MDM - (units (unkno wn) date) Arrhythmia/Palpit unknown) ations (unknown) (no (unknown) (unknown) MUSCULOSKELETAL: (units (unknown) date) See HPI unknown) (unknown) (no (unknown) (unknown) Magnesium (units (unkn own) date) (1.6-2.3) mg/dL unknown) (unknown) (no (unknown) (unknown) Magnesium 1.9 (units ( unknown) date) (1.6-2.3) mg/dL unknown) (unknown) (no (unknown) (unknown) Magnesium Stat (units (unknown) date) unknown) (unknown) (no (unknown) (unknown) Mallampati (units (unk nown) date) Airway unknown) Classification: Class II (unknown) (no (unknown) (unknown) Mode of arrival: (units (unknown) date) Family Vehicle unknown) (unknown) (no (unknown) (unknown) Brule # (Auto) (units ( unknown) date) (0-900) /uL unknown) (unknown) (no (unknown) (unknown) Brule # (Auto) (units ( unknown) date) 1100 H (0-900) unknown) /uL (unknown) (no (unknown) (unknown) Brule % (Auto) (units ( unknown) date) (3-14) % unknown) (unknown) (no (unknown) (unknown) Brule % (Auto) (units ( unknown) date) 11.0 (3-14) % unknown) (unknown) (no (unknown) (unknown) NECK: Trachea (units ( unknown) date) midline. Non unknown) tender (unknown) (no (unknown) (unknown) NEURO: AOx3. (units (u nknown) date) unknown) (unknown) (no (unknown) (unknown) NEUROLOGIC: See (units (unknown) date) HPI unknown) (unknown) (no (unknown) (unknown) Narrative (units (unkn own) date) unknown) (unknown) (no (unknown) (unknown) Narrative: (units (unk nown) date) unknown) (unknown) (no (unknown) (unknown) Neut # (Auto) (units ( unknown) date) (2176-9117) /uL unknown) (unknown) (no (unknown) (unknown) Neut # (Auto) (units ( unknown) date) 6500 (0629-3672) unknown) /uL (unknown) (no (unknown) (unknown) Neut % (Auto) (units ( unknown) date) (50-75) % unknown) (unknown) (no (unknown) (unknown) Neut % (Auto) (units ( unknown) date) 63.6 (50-75) % unknown) (unknown) (no (unknown) (unknown) Number of (units (unkn own) date) attempts unknown) (shocks): 1 (unknown) (no (unknown) (unknown) Ordered: (units (unkno wn) date) unknown) (unknown) (no (unknown) (unknown) Orders (units (unkno wn) date) unknown) (unknown) (no (unknown) (unknown) Oxygen Delivery (units (unknown) date) Method 10/24/22 unknown) 16:14 (unknown) (no (unknown) (unknown) Oxygen Delivery (units (unknown) date) Method Room Air unknown) (unknown) (no (unknown) (unknown) Oxygen Delivery (units (unknown) date) Method unknown) (unknown) (no (unknown) (unknown) PSYCHIATRIC: No (units (unknown) date) concerning unknown) psychosocial issues. (unknown) (no (unknown) (unknown) PT (10.1-12.7) (units (unknown) date) SECONDS unknown) (unknown) (no (unknown) (unknown) PT 17.4 H (units (unkn own) date) (10.1-12.7) unknown) SECONDS (unknown) (no (unknown) (unknown) Partial (units (unkno wn) date) Thromboplastin unknown) Time Stat (unknown) (no (unknown) (unknown) Patient History (units (unknown) date) unknown) (unknown) (no (unknown) (unknown) Patient (units (unkno wn) date) Tolerated unknown) Procedure: Well (unknown) (no (unknown) (unknown) Patient (units (unkno wn) date) converted as unknown) noted above, however 2 episodes of nonsustained V-tach in (unknown) (no (unknown) (unknown) Patient: (units (unkno wn) date) Nicolas Neely unknown) MR#: [id number] (unknown) (no (unknown) (unknown) Plt Count (units (unkn own) date) (150-400) X103/uL unknown) (unknown) (no (unknown) (unknown) Plt Count 218 (units ( unknown) date) (150-400) X103/uL unknown) (unknown) (no (unknown) (unknown) Potassium (units (unkn own) date) (3.4-5.1) mmol/L unknown) (unknown) (no (unknown) (unknown) Potassium 3.8 (units ( unknown) date) (3.4-5.1) mmol/L unknown) (unknown) (no (unknown) (unknown) Preparation: (units (u nknown) date) monitoring and evaluation advisor unknown) applied, pulse oximeter, capnometry used, (unknown) (no (unknown) (unknown) Procedural (units (unk nown) date) Sedation unknown) (unknown) (no (unknown) (unknown) Procedures (units (unk nown) date) unknown) (unknown) (no (unknown) (unknown) Propofol (units (unkno wn) date) (Propofol 200 unknown) Mg/20 Ml Vial) 70 mg 1 mg/kg (70 mg) IV NOW ONE (unknown) (no (unknown) (unknown) Prothrombin Time (units (unknown) date) INR Stat unknown) (unknown) (no (unknown) (unknown) Protocol (units (o wn) date) unknown) (unknown) (no (unknown) (unknown) Pulse Oximetry (units (unknown) date) 96 95 unknown) (unknown) (no (unknown) (unknown) Pulse Oximetry (units (unknown) date) 96 unknown) (unknown) (no (unknown) (unknown) Pulse Oximetry (units (unknown) date) 97 10/24/22 16:14 unknown) (unknown) (no (unknown) (unknown) Pulse Oximetry (units (unknown) date) 97 97 unknown) (unknown) (no (unknown) (unknown) Pulse Rate 133 H (units (unknown) date) unknown) (unknown) (no (unknown) (unknown) Pulse Rate 135 H (units (unknown) date) 10/24/22 16:14 unknown) (unknown) (no (unknown) (unknown) Pulse Rate 135 H (units (unknown) date) 118 H unknown) (unknown) (no (unknown) (unknown) Pulse Rate 135 H (units (unknown) date) 130 H unknown) (unknown) (no (unknown) (unknown) Pulse Rate 136 H (units (unknown) date) 131 H unknown) (unknown) (no (unknown) (unknown) Pulse Rate 138 H (units (unknown) date) 140 H unknown) (unknown) (no (unknown) (unknown) Pulse Rate 143 H (units (unknown) date) 136 H unknown) (unknown) (no (unknown) (unknown) RBC (4.5-5.9) (units ( unknown) date) X106/uL unknown) (unknown) (no (unknown) (unknown) RBC 4.62 (units (unkno wn) date) (4.5-5.9) X106/uL unknown) (unknown) (no (unknown) (unknown) RDW (11.6-14.8) (units (unknown) date) % unknown) (unknown) (no (unknown) (unknown) RDW 14.5 (units (unkno wn) date) (11.6-14.8) % unknown) (unknown) (no (unknown) (unknown) RESPIRATORY: (units (un known) date) Clear to unknown) auscultation. Breath sounds equal bilaterally. No wheezes, (unknown) (no (unknown) (unknown) RESPIRATORY: See (units (unknown) date) HPI unknown) (unknown) (no (unknown) (unknown) Reevaluation #1: (units (unknown) date) unknown) (unknown) (no (unknown) (unknown) Reevaluation(s) (units (unknown) date) unknown) (unknown) (no (unknown) (unknown) Respiratory Rate (units (unknown) date) 11 L unknown) (unknown) (no (unknown) (unknown) Respiratory Rate (units (unknown) date) 13 10 L unknown) (unknown) (no (unknown) (unknown) Respiratory Rate (units (unknown) date) 15 16 unknown) (unknown) (no (unknown) (unknown) Respiratory Rate (units (unknown) date) 18 12 unknown) (unknown) (no (unknown) (unknown) Respiratory Rate (units (unknown) date) 19 10/24/22 16:14 unknown) (unknown) (no (unknown) (unknown) Respiratory Rate (units (unknown) date) 19 22 unknown) (unknown) (no (unknown) (unknown) Respiratory Rate (units (unknown) date) 20 13 unknown) (unknown) (no (unknown) (unknown) Result diagrams: (units (unknown) date) unknown) (unknown) (no (unknown) (unknown) Review of (units (unkn own) date) Systems unknown) (unknown) (no (unknown) (unknown) SARS-CoV-2 (PCR) (units (unknown) date) (Negative) unknown) (unknown) (no (unknown) (unknown) SARS-CoV-2 (PCR) (units (unknown) date) Negative unknown) (Negative) (unknown) (no (unknown) (unknown) SKIN: Denies (units (u nknown) date) rash, skin unknown) lesions, or other (unknown) (no (unknown) (unknown) SKIN: No rash or (units (unknown) date) erythema of unknown) visible areas (unknown) (no (unknown) (unknown) Signed By: (units (unk nown) date) unknown) (unknown) (no (unknown) (unknown) Smoking Status: (units (unknown) date) Never smoker unknown) (unknown) (no (unknown) (unknown) Social History (units (unknown) date) unknown) (unknown) (no (unknown) (unknown) Sodium (137-145) (units (unknown) date) mmol/L unknown) (unknown) (no (unknown) (unknown) Sodium 139 (units (unk nown) date) (137-145) mmol/L unknown) (unknown) (no (unknown) (unknown) Source: patient (units (unknown) date) unknown) (unknown) (no (unknown) (unknown) Stability: (units (unk nown) date) Stable unknown) (unknown) (no (unknown) (unknown) Stated (units (unkno wn) date) Complaint: Back unknown) pain (unknown) (no (unknown) (unknown) Stop: 10/24/22 (units (unknown) date) 16:29 unknown) (unknown) (no (unknown) (unknown) Stop: 10/24/22 (units (unknown) date) 17:28 unknown) (unknown) (no (unknown) (unknown) Stop: 10/24/22 (units (unknown) date) 18:31 unknown) (unknown) (no (unknown) (unknown) Temperature 98.2 (units (unknown) date) F 10/24/22 16:14 unknown) (unknown) (no (unknown) (unknown) Temperature 98.2 (units (unknown) date) F unknown) (unknown) (no (unknown) (unknown) Temperature (units (un known) date) unknown) (unknown) (no (unknown) (unknown) Time Seen by (units (u nknown) date) Provider: unknown) 10/24/22 16:34 (unknown) (no (unknown) (unknown) Time out (units (unkno wn) date) performed: Yes unknown) (unknown) (no (unknown) (unknown) Total Bilirubin (units (unknown) date) (0.2-1.3) mg/dL unknown) (unknown) (no (unknown) (unknown) Total Bilirubin (units (unknown) date) 1.1 (0.2-1.3) unknown) mg/dL (unknown) (no (unknown) (unknown) Total Creatine (units (unknown) date) Kinase < 20 L unknown) (55-170) U/L (unknown) (no (unknown) (unknown) Total Creatine (units (unknown) date) Kinase (55-170) unknown) U/L (unknown) (no (unknown) (unknown) Total Protein (units ( unknown) date) (6.3-8.2) g/dL unknown) (unknown) (no (unknown) (unknown) Total Protein (units ( unknown) date) 7.9 (6.3-8.2) unknown) g/dL (unknown) (no (unknown) (unknown) Troponin + CK (units ( unknown) date) Cardiac Panel unknown) Stat (unknown) (no (unknown) (unknown) Troponin I < (units (u nknown) date) 0.012 unknown) (0.01-0.034) ng/mL (unknown) (no (unknown) (unknown) Troponin I (units (unk nown) date) (0.01-0.034) unknown) ng/mL (unknown) (no (unknown) (unknown) Vital Signs - 8 (units (unknown) date) hr unknown) (unknown) (no (unknown) (unknown) Vital Signs (units (un known) date) unknown) (unknown) (no (unknown) (unknown) Vital signs: (units (u nknown) date) unknown) (unknown) (no (unknown) (unknown) WBC (4.5-11.0) (units (unknown) date) X103/uL unknown) (unknown) (no (unknown) (unknown) WBC 10.3 (units (unkno wn) date) (4.5-11.0) unknown) X103/uL (unknown) (no (unknown) (unknown) XR chest 1V Stat (units (unknown) date) unknown) (unknown) (no (unknown) (unknown) [Embedded Image (units (unknown) date) Not Available] unknown) (unknown) (no (unknown) (unknown) alcohol intake (units (unknown) date) frequency: unknown) holidays/special occasions only (unknown) (no (unknown) (unknown) but primarily (units ( unknown) date) due to severe unknown) midline low back pain. He had 2 falls, the most (unknown) (no (unknown) (unknown) constipation, (units ( unknown) date) melena. unknown) (unknown) (no (unknown) (unknown) discussed with (units (unknown) date) Dr. Renee (on unknown) call Cardio), no indication for amio at this (unknown) (no (unknown) (unknown) dizziness. 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 He denies any (unknown) (no (unknown) (unknown) frequently short (units (unknown) date) of breath but unknown) admits that the majority of his day is consume (unknown) (no (unknown) (unknown) icterus. No (units (un known) date) injection or unknown) drainage. (unknown) (no (unknown) (unknown) improves with (units ( unknown) date) rest. He denies unknown) any chest pain but does state that he is (unknown) (no (unknown) (unknown) many years, (units (un known) date) pacemaker unknown) placement for sick sinus syndrome, history of ventricular (unknown) (no (unknown) (unknown) numbness, (units (unkn own) date) tingling or unknown) weakness, denies any loss of control of bowel or bladder. (unknown) (no (unknown) (unknown) obvious (units (unkno wn) date) distress. unknown) Complaining of low back pain (unknown) (no (unknown) (unknown) palpitations, (units ( unknown) date) chest pain or unknown) shortness of breath this. (unknown) (no (unknown) (unknown) rales, or (units (unkn own) date) rhonchi. unknown) (unknown) (no (unknown) (unknown) rapid atrial fib (units (unknown) date) unknown) (unknown) (no (unknown) (unknown) recent of which (units (unknown) date) was in the end of ) September and has advanced imaging from our (unknown) (no (unknown) (unknown) rubs. (units (unkno wn) date) unknown) (unknown) (no (unknown) (unknown) supplemental O2 (units (unknown) date) applied, unknown) suction/airway equipment at bedside and IV secured (unknown) (no (unknown) (unknown) tachycardia (units (un known) date) presents for unknown) evaluation episodes of shortness of breath and fatigue (unknown) (no (unknown) (unknown) the aftermath (units ( unknown) date) measuring 8 and unknown) 10 beats a piece, patient did not have any (unknown) (no (unknown) (unknown) time, consult (units ( unknown) date) with [facility] unknown) (unknown) (no (unknown) (unknown) tonsillar (units (unkn own) date) hypertrophy or unknown) exudate. Airway patent. (unknown) (no (unknown) (unknown) with severe pain (units (unknown) date) unknown) Result panel 244 (unknown) (no (unknown) (unknown) (no value) (units (unk nown) date) unknown) (unknown) (no (unknown) (unknown) 10/24/22 (units (unkno wn) date) 10/24/22 10/24/22 unknown) Range/Units (unknown) (no (unknown) (unknown) 10/24/22 16:28 (units (unknown) date) unknown) (unknown) (no (unknown) (unknown) 10/24/22 16:35 (units (unknown) date) unknown) (unknown) (no (unknown) (unknown) 10/24/22 16:40 (units (unknown) date) unknown) (unknown) (no (unknown) (unknown) 10/24/22 16:55 (units (unknown) date) unknown) (unknown) (no (unknown) (unknown) 10/24/22 17:49 (units (unknown) date) unknown) (unknown) (no (unknown) (unknown) 10/24/22 18:28 (units (unknown) date) unknown) (unknown) (no (unknown) (unknown) 10/24/22 (units (unkno wn) date) Range/Units unknown) (unknown) (no (unknown) (unknown) 10/24/22 (units (unkno wn) date) unknown) (unknown) (no (unknown) (unknown) [id number] (units (unkno wn) date) unknown) (unknown) (no (unknown) (unknown) 12 point review (units (unknown) date) of systems is unknown) negative except for those stated above (unknown) (no (unknown) (unknown) 16:14 10/24/22 (units (unknown) date) unknown) (unknown) (no (unknown) (unknown) 16:40 16:40 (units (un known) date) 16:40 unknown) (unknown) (no (unknown) (unknown) 16:51 10/24/22 (units (unknown) date) unknown) (unknown) (no (unknown) (unknown) 16:52 10/24/22 (units (unknown) date) unknown) (unknown) (no (unknown) (unknown) 16:52 (units (unkno wn) date) unknown) (unknown) (no (unknown) (unknown) 16:55 (units (unkno wn) date) unknown) (unknown) (no (unknown) (unknown) 17:00 10/24/22 (units (unknown) date) unknown) (unknown) (no (unknown) (unknown) 17:00 (units (unkno wn) date) unknown) (unknown) (no (unknown) (unknown) 17:16 10/24/22 (units (unknown) date) unknown) (unknown) (no (unknown) (unknown) 17:20 10/24/22 (units (unknown) date) unknown) (unknown) (no (unknown) (unknown) 17:20 (units (unkno wn) date) unknown) (unknown) (no (unknown) (unknown) 17:30 10/24/22 (units (unknown) date) unknown) (unknown) (no (unknown) (unknown) 17:31 10/24/22 (units (unknown) date) unknown) (unknown) (no (unknown) (unknown) 17:31 (units (unkno wn) date) unknown) (unknown) (no (unknown) (unknown) 17:35 10/24/22 (units (unknown) date) unknown) (unknown) (no (unknown) (unknown) 17:35 (units (unkno wn) date) unknown) (unknown) (no (unknown) (unknown) 17:40 10/24/22 (units (unknown) date) unknown) (unknown) (no (unknown) (unknown) 86-year-old male (units (unknown) date) slightly poor unknown) historian with history of AFib on Xarelto for (unknown) (no (unknown) (unknown) ALT (<50) IU/L (units (unknown) date) unknown) (unknown) (no (unknown) (unknown) ALT 27 (<50) (units (u nknown) date) IU/L unknown) (unknown) (no (unknown) (unknown) APTT (26-36) (units (u nknown) date) SECONDS unknown) (unknown) (no (unknown) (unknown) APTT 36 (26-36) (units (unknown) date) SECONDS unknown) (unknown) (no (unknown) (unknown) ASA Class: III (units (unknown) date) unknown) (unknown) (no (unknown) (unknown) AST (17-59) IU/L (units (unknown) date) unknown) (unknown) (no (unknown) (unknown) AST 32 (17-59) (units (unknown) date) IU/L unknown) (unknown) (no (unknown) (unknown) Age/Sex: 86 / M (units (unknown) date) unknown) (unknown) (no (unknown) (unknown) Alkaline (units (unkno wn) date) Phosphatase unknown) (38-126) U/L (unknown) (no (unknown) (unknown) Alkaline (units (unkno wn) date) Phosphatase 108 unknown) (38-126) U/L (unknown) (no (unknown) (unknown) Amiodarone (units (unk nown) date) HCl/Dextrose unknown) (Nexterone) 150 mg in 100 mls @ 600 mls/hr IV NOW ONE; (unknown) (no (unknown) (unknown) Aspirin (Aspirin (units (unknown) date) 81 Mg Chew Tab) unknown) 324 mg PO NOW ONE (unknown) (no (unknown) (unknown) BACK: Severe (units (u nknown) date) midline, unknown) tenderness significantly worse with motion (unknown) (no (unknown) (unknown) BUN (9-20) mg/dL (units (unknown) date) unknown) (unknown) (no (unknown) (unknown) BUN 9 (9-20) (units (u nknown) date) mg/dL unknown) (unknown) (no (unknown) (unknown) BUN/Creatinine (units (unknown) date) Ratio (6-22) unknown) (unknown) (no (unknown) (unknown) BUN/Creatinine (units (unknown) date) Ratio 11.3 (6-22) unknown) (unknown) (no (unknown) (unknown) Baso # (Auto) (units ( unknown) date) (0-100) /uL unknown) (unknown) (no (unknown) (unknown) Baso # (Auto) (units ( unknown) date) 100 (0-100) /uL unknown) (unknown) (no (unknown) (unknown) Baso % (Auto) (units ( unknown) date) (0-2) % unknown) (unknown) (no (unknown) (unknown) Baso % (Auto) (units ( unknown) date) 1.3 (0-2) % unknown) (unknown) (no (unknown) (unknown) Blood Pressure (units (unknown) date) 105/80 unknown) (unknown) (no (unknown) (unknown) Blood Pressure (units (unknown) date) 119/94 H unknown) (unknown) (no (unknown) (unknown) Blood Pressure (units (unknown) date) 125/90 unknown) (unknown) (no (unknown) (unknown) Blood Pressure (units (unknown) date) 131/85 153/82 H unknown) (unknown) (no (unknown) (unknown) Blood Pressure (units (unknown) date) 134/102 H unknown) (unknown) (no (unknown) (unknown) Blood Pressure (units (unknown) date) 143/81 H 10/24/22 unknown) 16:14 (unknown) (no (unknown) (unknown) Blood Pressure (units (unknown) date) 143/81 H 128/82 unknown) (unknown) (no (unknown) (unknown) CARDIOVASCULAR: (units (unknown) date) See HPI unknown) (unknown) (no (unknown) (unknown) CARDIOVASCULAR: (units (unknown) date) Tachycardic and unknown) irregular rhythm without murmurs, gallops, or (unknown) (no (unknown) (unknown) CK-MB (CK-2) Rel (units (unknown) date) Index TNP unknown) (unknown) (no (unknown) (unknown) CK-MB (CK-2) Rel (units (unknown) date) Index unknown) (unknown) (no (unknown) (unknown) CK-MB (CK-2) TNP (units (unknown) date) unknown) (unknown) (no (unknown) (unknown) CK-MB (CK-2) (units (u nknown) date) unknown) (unknown) (no (unknown) (unknown) COVID19 -Nasal (units (unknown) date) RAPID/Pre-Proc unknown) Stat (unknown) (no (unknown) (unknown) CT chest abd pel (units (unknown) date) w con Stat unknown) (unknown) (no (unknown) (unknown) Calcium (units (unkno wn) date) (8.4-10.2) mg/dL unknown) (unknown) (no (unknown) (unknown) Calcium 9.0 (units (un known) date) (8.4-10.2) mg/dL unknown) (unknown) (no (unknown) (unknown) Carbon Dioxide (units (unknown) date) (22-32) mmol/L unknown) (unknown) (no (unknown) (unknown) Carbon Dioxide (units (unknown) date) 23 (22-32) mmol/L unknown) (unknown) (no (unknown) (unknown) Cardiac rhythm (units (unknown) date) post-cardioversio unknown) n: NSR (unknown) (no (unknown) (unknown) Cardioversion (units ( unknown) date) unknown) (unknown) (no (unknown) (unknown) Chief Complaint: (units (unknown) date) Arrhythmia/Palpit unknown) ations (unknown) (no (unknown) (unknown) Chloride (units (unkno wn) date) (98-107) mmol/L unknown) (unknown) (no (unknown) (unknown) Chloride 106 (units (u nknown) date) (98-107) mmol/L unknown) (unknown) (no (unknown) (unknown) Complete Blood (units (unknown) date) Count AUTO DIFF unknown) Stat (unknown) (no (unknown) (unknown) Complications: (units (unknown) date) none unknown) (unknown) (no (unknown) (unknown) Comprehensive (units ( unknown) date) Metabolic Panel unknown) Stat (unknown) (no (unknown) (unknown) Consent Signed: (units (unknown) date) Yes unknown) (unknown) (no (unknown) (unknown) Consent signed: (units (unknown) date) Yes unknown) (unknown) (no (unknown) (unknown) Consultation #1: (units (unknown) date) unknown) (unknown) (no (unknown) (unknown) Consultations (units ( unknown) date) unknown) (unknown) (no (unknown) (unknown) Course (units (unkno wn) date) unknown) (unknown) (no (unknown) (unknown) Creatinine (units (unk nown) date) (0.66-1.25) mg/dL unknown) (unknown) (no (unknown) (unknown) Creatinine 0.80 (units (unknown) date) (0.66-1.25) mg/dL unknown) (unknown) (no (unknown) (unknown) : 1935 (units (unknown) date) Acct:[id number] unknown) (unknown) (no (unknown) (unknown) Date of Service: (units (unknown) date) 10/24/22 unknown) (unknown) (no (unknown) (unknown) Discontinued (units (u nknown) date) Medications unknown) (unknown) (no (unknown) (unknown) Documented By: (units (unknown) date) RL unknown) (unknown) (no (unknown) (unknown) ED Orders (units (unkn own) date) unknown) (unknown) (no (unknown) (unknown) ED Sedation (units (un known) date) Level: Moderate unknown) (Concious) (unknown) (no (unknown) (unknown) EKG-12 Lead (units (un known) date) Routine unknown) (unknown) (no (unknown) (unknown) EKG-12 Lead Stat (units (unknown) date) unknown) (unknown) (no (unknown) (unknown) ENT: Nose (units (unkn own) date) without bleeding, unknown) purulent drainage. Throat without erythema, (unknown) (no (unknown) (unknown) ER Physician: (units ( unknown) date) Khari Walls unknown) D.O. (unknown) (no (unknown) (unknown) EXTREMITIES: No (units (unknown) date) edema or joint unknown) tenderness. (unknown) (no (unknown) (unknown) EYES: Pupils (units (u nknown) date) equal round and unknown) reactive. Extraocular motions intact. No scleral (unknown) (no (unknown) (unknown) Emergency Report (units (unknown) date) unknown) (unknown) (no (unknown) (unknown) Eos # (Auto) (units (u nknown) date) (0-450) /uL unknown) (unknown) (no (unknown) (unknown) Eos # (Auto) 200 (units (unknown) date) (0-450) /uL unknown) (unknown) (no (unknown) (unknown) Eos % (Auto) (units (u nknown) date) (2-4) % unknown) (unknown) (no (unknown) (unknown) Eos % (Auto) 2.1 (units (unknown) date) (2-4) % unknown) (unknown) (no (unknown) (unknown) Estimated GFR > (units (unknown) date) 60 (>60) mL/min unknown) (unknown) (no (unknown) (unknown) Estimated GFR (units ( unknown) date) (>60) mL/min unknown) (unknown) (no (unknown) (unknown) Exam Narrative: (units (unknown) date) unknown) (unknown) (no (unknown) (unknown) Exam (units (unkno wn) date) unknown) (unknown) (no (unknown) (unknown) GASTROINTESTINAL (units (unknown) date) : Abdomen soft, unknown) non-tender, nondistended. (unknown) (no (unknown) (unknown) GASTROINTESTINAL (units (unknown) date) : Denies nausea, unknown) vomiting, abdominal pain, diarrhea, (unknown) (no (unknown) (unknown) GENERAL: Denies (units (unknown) date) chills, fatigue, unknown) malaise, fever, sweats. (unknown) (no (unknown) (unknown) GENERAL: [86] (units ( unknown) date) year old patient unknown) appears stated age. Well-developed patient, in (unknown) (no (unknown) (unknown) : Denies (units (unk n) date) dysuria, unknown) frequency, incontinence, hematuria, urinary retention. (unknown) (no (unknown) (unknown) General (units (o wn) date) unknown) (unknown) (no (unknown) (unknown) Glucose (80-110) (units (unknown) date) mg/dL unknown) (unknown) (no (unknown) (unknown) Glucose 89 (units (unk n) date) (80-110) mg/dL unknown) (unknown) (no (unknown) (unknown) HEAD: (units (o wn) date) Atraumatic. unknown) Normocephalic. (unknown) (no (unknown) (unknown) HEENT: Denies (units ( unknown) date) sinus pain, ear unknown) pain, sore throat, difficulty swallowing, (unknown) (no (unknown) (unknown) HPI - (units (unkno wn) date) Arrhythmia/Palpit unknown) ations (unknown) (no (unknown) (unknown) HPI narrative: (units (unknown) date) unknown) (unknown) (no (unknown) (unknown) Hct (41-53) % (units ( unknown) date) unknown) (unknown) (no (unknown) (unknown) Hct 45.9 (41-53) (units (unknown) date) % unknown) (unknown) (no (unknown) (unknown) He states he has (units (unknown) date) significant pain unknown) that is worse with range of motion and (unknown) (no (unknown) (unknown) Hgb (13.5-17.5) (units (unknown) date) g/dL unknown) (unknown) (no (unknown) (unknown) Hgb 15.6 (units (unkno wn) date) (13.5-17.5) g/dL unknown) (unknown) (no (unknown) (unknown) History of (units (unk nown) date) Present Illness unknown) (unknown) (no (unknown) (unknown) INR (0.9-1.3) (units ( unknown) date) unknown) (unknown) (no (unknown) (unknown) INR 1.5 H (units (unkn own) date) (0.9-1.3) unknown) (unknown) (no (unknown) (unknown) IV Propofol dose (units (unknown) date) (mg): 40 unknown) (unknown) (no (unknown) (unknown) Indication: (units (un known) date) cardioversion unknown) (unknown) (no (unknown) (unknown) Indication: (units (un known) date) unknown) (unknown) (no (unknown) (unknown) Initial Vital (units ( unknown) date) Signs unknown) (unknown) (no (unknown) (unknown) Initial Vital (units ( unknown) date) Signs: unknown) (unknown) (no (unknown) (unknown) Intraservice (units (u nknown) date) time/total unknown) sedation time (min): 10 (unknown) (no (unknown) (unknown) [facility] (units (unknown) date) [address] unknown) [place] [address] (unknown) (no (unknown) (unknown) Joules used: 120 (units (unknown) date) unknown) (unknown) (no (unknown) (unknown) Lab Data (units (unkno wn) date) unknown) (unknown) (no (unknown) (unknown) Lab Results (units (un known) date) unknown) (unknown) (no (unknown) (unknown) Labs: (units (unkno wn) date) unknown) (unknown) (no (unknown) (unknown) Last Admin: (units (un known) date) 10/24/22 16:53 unknown) Dose: 324 mg (unknown) (no (unknown) (unknown) Last Admin: (units (un known) date) 10/24/22 17:42 unknown) Dose: 40 mg (unknown) (no (unknown) (unknown) Lipase (23-300) (units (unknown) date) U/L unknown) (unknown) (no (unknown) (unknown) Lipase 169 (units (unk nown) date) (23-300) U/L unknown) (unknown) (no (unknown) (unknown) Lipase Stat (units (un known) date) unknown) (unknown) (no (unknown) (unknown) Lymph # (Auto) (units (unknown) date) ([id number]) /uL unknown) (unknown) (no (unknown) (unknown) Lymph # (Auto) (units (unknown) date) 2300 ([phone]) unknown) /uL (unknown) (no (unknown) (unknown) Lymph % (Auto) (units (unknown) date) (25-40) % unknown) (unknown) (no (unknown) (unknown) Lymph % (Auto) (units (unknown) date) 22.0 L (25-40) % unknown) (unknown) (no (unknown) (unknown) MCH (26-34) PG (units (unknown) date) unknown) (unknown) (no (unknown) (unknown) MCH 33.9 (26-34) (units (unknown) date) PG unknown) (unknown) (no (unknown) (unknown) MCHC (30-36) % (units (unknown) date) unknown) (unknown) (no (unknown) (unknown) MCHC 34.1 (units (unkn own) date) (30-36) % unknown) (unknown) (no (unknown) (unknown) MCV (80-100) fL (units (unknown) date) unknown) (unknown) (no (unknown) (unknown) MCV 99.4 (units (unkno wn) date) (80-100) fL unknown) (unknown) (no (unknown) (unknown) MDM - (units (unkno wn) date) Arrhythmia/Palpit unknown) ations (unknown) (no (unknown) (unknown) MUSCULOSKELETAL: (units (unknown) date) See HPI unknown) (unknown) (no (unknown) (unknown) Magnesium (units (unkn own) date) (1.6-2.3) mg/dL unknown) (unknown) (no (unknown) (unknown) Magnesium 1.9 (units ( unknown) date) (1.6-2.3) mg/dL unknown) (unknown) (no (unknown) (unknown) Magnesium Stat (units (unknown) date) unknown) (unknown) (no (unknown) (unknown) Mallampati (units (unk nown) date) Airway unknown) Classification: Class II (unknown) (no (unknown) (unknown) Mode of arrival: (units (unknown) date) Family Vehicle unknown) (unknown) (no (unknown) (unknown) Brule # (Auto) (units ( unknown) date) (0-900) /uL unknown) (unknown) (no (unknown) (unknown) Brule # (Auto) (units ( unknown) date) 1100 H (0-900) unknown) /uL (unknown) (no (unknown) (unknown) Brule % (Auto) (units ( unknown) date) (3-14) % unknown) (unknown) (no (unknown) (unknown) Brule % (Auto) (units ( unknown) date) 11.0 (3-14) % unknown) (unknown) (no (unknown) (unknown) NECK: Trachea (units ( unknown) date) midline. Non unknown) tender (unknown) (no (unknown) (unknown) NEURO: AOx3. (units (u nknown) date) unknown) (unknown) (no (unknown) (unknown) NEUROLOGIC: See (units (unknown) date) HPI unknown) (unknown) (no (unknown) (unknown) Narrative (units (unkn own) date) unknown) (unknown) (no (unknown) (unknown) Narrative: (units (unk nown) date) unknown) (unknown) (no (unknown) (unknown) Neut # (Auto) (units ( unknown) date) ([phone]) /uL unknown) (unknown) (no (unknown) (unknown) Neut # (Auto) (units ( unknown) date) 6500 ([id number]) unknown) /uL (unknown) (no (unknown) (unknown) Neut % (Auto) (units ( unknown) date) (50-75) % unknown) (unknown) (no (unknown) (unknown) Neut % (Auto) (units ( unknown) date) 63.6 (50-75) % unknown) (unknown) (no (unknown) (unknown) Number of (units (unkn own) date) attempts unknown) (shocks): 1 (unknown) (no (unknown) (unknown) Ordered: (units (unkno wn) date) unknown) (unknown) (no (unknown) (unknown) Orders (units (unkno wn) date) unknown) (unknown) (no (unknown) (unknown) Oxygen Delivery (units (unknown) date) Method 10/24/22 unknown) 16:14 (unknown) (no (unknown) (unknown) Oxygen Delivery (units (unknown) date) Method Room Air unknown) (unknown) (no (unknown) (unknown) Oxygen Delivery (units (unknown) date) Method unknown) (unknown) (no (unknown) (unknown) PSYCHIATRIC: No (units (unknown) date) concerning unknown) psychosocial issues. (unknown) (no (unknown) (unknown) PT (10.1-12.7) (units (unknown) date) SECONDS unknown) (unknown) (no (unknown) (unknown) PT 17.4 H (units (unkn own) date) (10.1-12.7) unknown) SECONDS (unknown) (no (unknown) (unknown) Partial (units (unkno wn) date) Thromboplastin unknown) Time Stat (unknown) (no (unknown) (unknown) Patient History (units (unknown) date) unknown) (unknown) (no (unknown) (unknown) Patient (units (unkno wn) date) Tolerated unknown) Procedure: Well (unknown) (no (unknown) (unknown) Patient (units (unkno wn) date) converted as unknown) noted above, however 2 episodes of nonsustained V-tach in (unknown) (no (unknown) (unknown) Patient: (units (unkno wn) date) Nicolas Neely unknown) MR#: [id number] (unknown) (no (unknown) (unknown) Plt Count (units (unkn own) date) (150-400) X103/uL unknown) (unknown) (no (unknown) (unknown) Plt Count 218 (units ( unknown) date) (150-400) X103/uL unknown) (unknown) (no (unknown) (unknown) Potassium (units (unkn own) date) (3.4-5.1) mmol/L unknown) (unknown) (no (unknown) (unknown) Potassium 3.8 (units ( unknown) date) (3.4-5.1) mmol/L unknown) (unknown) (no (unknown) (unknown) Preparation: (units (u nknown) date) monitoring and evaluation advisor unknown) applied, pulse oximeter, capnometry used, (unknown) (no (unknown) (unknown) Procedural (units (unk nown) date) Sedation unknown) (unknown) (no (unknown) (unknown) Procedures (units (unk nown) date) unknown) (unknown) (no (unknown) (unknown) Propofol (units (unkno wn) date) (Propofol 200 unknown) Mg/20 Ml Vial) 70 mg 1 mg/kg (70 mg) IV NOW ONE (unknown) (no (unknown) (unknown) Prothrombin Time (units (unknown) date) INR Stat unknown) (unknown) (no (unknown) (unknown) Protocol (units (unkno wn) date) unknown) (unknown) (no (unknown) (unknown) Pulse Oximetry (units (unknown) date) 96 95 unknown) (unknown) (no (unknown) (unknown) Pulse Oximetry (units (unknown) date) 96 unknown) (unknown) (no (unknown) (unknown) Pulse Oximetry (units (unknown) date) 97 10/24/22 16:14 unknown) (unknown) (no (unknown) (unknown) Pulse Oximetry (units (unknown) date) 97 97 unknown) (unknown) (no (unknown) (unknown) Pulse Rate 133 H (units (unknown) date) unknown) (unknown) (no (unknown) (unknown) Pulse Rate 135 H (units (unknown) date) 10/24/22 16:14 unknown) (unknown) (no (unknown) (unknown) Pulse Rate 135 H (units (unknown) date) 118 H unknown) (unknown) (no (unknown) (unknown) Pulse Rate 135 H (units (unknown) date) 130 H unknown) (unknown) (no (unknown) (unknown) Pulse Rate 136 H (units (unknown) date) 131 H unknown) (unknown) (no (unknown) (unknown) Pulse Rate 138 H (units (unknown) date) 140 H unknown) (unknown) (no (unknown) (unknown) Pulse Rate 143 H (units (unknown) date) 136 H unknown) (unknown) (no (unknown) (unknown) RBC (4.5-5.9) (units ( unknown) date) X106/uL unknown) (unknown) (no (unknown) (unknown) RBC 4.62 (units (unkno wn) date) (4.5-5.9) X106/uL unknown) (unknown) (no (unknown) (unknown) RDW (11.6-14.8) (units (unknown) date) % unknown) (unknown) (no (unknown) (unknown) RDW 14.5 (units (unkno wn) date) (11.6-14.8) % unknown) (unknown) (no (unknown) (unknown) RESPIRATORY: (units (un known) date) Clear to unknown) auscultation. Breath sounds equal bilaterally. No wheezes, (unknown) (no (unknown) (unknown) RESPIRATORY: See (units (unknown) date) HPI unknown) (unknown) (no (unknown) (unknown) Reevaluation #1: (units (unknown) date) unknown) (unknown) (no (unknown) (unknown) Reevaluation(s) (units (unknown) date) unknown) (unknown) (no (unknown) (unknown) Respiratory Rate (units (unknown) date) 11 L unknown) (unknown) (no (unknown) (unknown) Respiratory Rate (units (unknown) date) 13 10 L unknown) (unknown) (no (unknown) (unknown) Respiratory Rate (units (unknown) date) 15 16 unknown) (unknown) (no (unknown) (unknown) Respiratory Rate (units (unknown) date) 18 12 unknown) (unknown) (no (unknown) (unknown) Respiratory Rate (units (unknown) date) 19 10/24/22 16:14 unknown) (unknown) (no (unknown) (unknown) Respiratory Rate (units (unknown) date) 19 22 unknown) (unknown) (no (unknown) (unknown) Respiratory Rate (units (unknown) date) 20 13 unknown) (unknown) (no (unknown) (unknown) Result diagrams: (units (unknown) date) unknown) (unknown) (no (unknown) (unknown) Review of (units (unkn own) date) Systems unknown) (unknown) (no (unknown) (unknown) SARS-CoV-2 (PCR) (units (unknown) date) (Negative) unknown) (unknown) (no (unknown) (unknown) SARS-CoV-2 (PCR) (units (unknown) date) Negative unknown) (Negative) (unknown) (no (unknown) (unknown) SKIN: Denies (units (u nknown) date) rash, skin unknown) lesions, or other (unknown) (no (unknown) (unknown) SKIN: No rash or (units (unknown) date) erythema of unknown) visible areas (unknown) (no (unknown) (unknown) Signed By: (units (unk nown) date) unknown) (unknown) (no (unknown) (unknown) Smoking Status: (units (unknown) date) Never smoker unknown) (unknown) (no (unknown) (unknown) Social History (units (unknown) date) unknown) (unknown) (no (unknown) (unknown) Sodium (137-145) (units (unknown) date) mmol/L unknown) (unknown) (no (unknown) (unknown) Sodium 139 (units (unk nown) date) (137-145) mmol/L unknown) (unknown) (no (unknown) (unknown) Source: patient (units (unknown) date) unknown) (unknown) (no (unknown) (unknown) Stability: (units (unk nown) date) Stable unknown) (unknown) (no (unknown) (unknown) Stated (units (unkno wn) date) Complaint: Back unknown) pain (unknown) (no (unknown) (unknown) Stop: 10/24/22 (units (unknown) date) 16:29 unknown) (unknown) (no (unknown) (unknown) Stop: 10/24/22 (units (unknown) date) 17:28 unknown) (unknown) (no (unknown) (unknown) Stop: 10/24/22 (units (unknown) date) 18:31 unknown) (unknown) (no (unknown) (unknown) Temperature 98.2 (units (unknown) date) F 10/24/22 16:14 unknown) (unknown) (no (unknown) (unknown) Temperature 98.2 (units (unknown) date) F unknown) (unknown) (no (unknown) (unknown) Temperature (units (un known) date) unknown) (unknown) (no (unknown) (unknown) Time Seen by (units (u nknown) date) Provider: unknown) 10/24/22 16:34 (unknown) (no (unknown) (unknown) Time out (units (unkno wn) date) performed: Yes unknown) (unknown) (no (unknown) (unknown) Total Bilirubin (units (unknown) date) (0.2-1.3) mg/dL unknown) (unknown) (no (unknown) (unknown) Total Bilirubin (units (unknown) date) 1.1 (0.2-1.3) unknown) mg/dL (unknown) (no (unknown) (unknown) Total Creatine (units (unknown) date) Kinase < 20 L unknown) (55-170) U/L (unknown) (no (unknown) (unknown) Total Creatine (units (unknown) date) Kinase (55-170) unknown) U/L (unknown) (no (unknown) (unknown) Total Protein (units ( unknown) date) (6.3-8.2) g/dL unknown) (unknown) (no (unknown) (unknown) Total Protein (units ( unknown) date) 7.9 (6.3-8.2) unknown) g/dL (unknown) (no (unknown) (unknown) Troponin + CK (units ( unknown) date) Cardiac Panel unknown) Stat (unknown) (no (unknown) (unknown) Troponin I < (units (u nknown) date) 0.012 unknown) (0.01-0.034) ng/mL (unknown) (no (unknown) (unknown) Troponin I (units (unk nown) date) (0.01-0.034) unknown) ng/mL (unknown) (no (unknown) (unknown) Vital Signs - 8 (units (unknown) date) hr unknown) (unknown) (no (unknown) (unknown) Vital Signs (units (un known) date) unknown) (unknown) (no (unknown) (unknown) Vital signs: (units (u nknown) date) unknown) (unknown) (no (unknown) (unknown) WBC (4.5-11.0) (units (unknown) date) X103/uL unknown) (unknown) (no (unknown) (unknown) WBC 10.3 (units (unkno wn) date) (4.5-11.0) unknown) X103/uL (unknown) (no (unknown) (unknown) XR chest 1V Stat (units (unknown) date) unknown) (unknown) (no (unknown) (unknown) [Embedded Image (units (unknown) date) Not Available] unknown) (unknown) (no (unknown) (unknown) alcohol intake (units (unknown) date) frequency: unknown) holidays/special occasions only (unknown) (no (unknown) (unknown) but primarily (units ( unknown) date) due to severe unknown) midline low back pain. He had 2 falls, the most (unknown) (no (unknown) (unknown) constipation, (units ( unknown) date) melena. unknown) (unknown) (no (unknown) (unknown) discussed with (units (unknown) date) Dr. Renee (on unknown) call Cardio), no indication for amio at this (unknown) (no (unknown) (unknown) dizziness. 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 He denies any (unknown) (no (unknown) (unknown) frequently short (units (unknown) date) of breath but unknown) admits that the majority of his day is consume (unknown) (no (unknown) (unknown) icterus. No (units (un known) date) injection or unknown) drainage. (unknown) (no (unknown) (unknown) improves with (units ( unknown) date) rest. He denies unknown) any chest pain but does state that he is (unknown) (no (unknown) (unknown) many years, (units (un known) date) pacemaker unknown) placement for sick sinus syndrome, history of ventricular (unknown) (no (unknown) (unknown) numbness, (units (unkn own) date) tingling or unknown) weakness, denies any loss of control of bowel or bladder. (unknown) (no (unknown) (unknown) obvious (units (unkno wn) date) distress. unknown) Complaining of low back pain (unknown) (no (unknown) (unknown) palpitations, (units ( unknown) date) chest pain or unknown) shortness of breath this. (unknown) (no (unknown) (unknown) rales, or (units (unkn own) date) rhonchi. unknown) (unknown) (no (unknown) (unknown) rapid atrial fib (units (unknown) date) unknown) (unknown) (no (unknown) (unknown) recent of which (units (unknown) date) was in the end of unknown) September and has advanced imaging from our (unknown) (no (unknown) (unknown) rubs. (units (unkno wn) date) unknown) (unknown) (no (unknown) (unknown) supplemental O2 (units (unknown) date) applied, unknown) suction/airway equipment at bedside and IV secured (unknown) (no (unknown) (unknown) tachycardia (units (un known) date) presents for unknown) evaluation episodes of shortness of breath and fatigue (unknown) (no (unknown) (unknown) the aftermath (units ( unknown) date) measuring 8 and unknown) 10 beats a piece, patient did not have any (unknown) (no (unknown) (unknown) time, consult (units ( unknown) date) with Cardio unknown) (unknown) (no (unknown) (unknown) tonsillar (units (unkn own) date) hypertrophy or unknown) exudate. Airway patent. (unknown) (no (unknown) (unknown) with severe pain (units (unknown) date) unknown) Result panel 245 (unknown) (no (unknown) (unknown) (no value) (units (unk nown) date) unknown) (unknown) (no (unknown) (unknown) 10/24/22 (units (unkno wn) date) 10/24/22 10/24/22 unknown) Range/Units (unknown) (no (unknown) (unknown) 10/24/22 16:28 (units (unknown) date) unknown) (unknown) (no (unknown) (unknown) 10/24/22 16:35 (units (unknown) date) unknown) (unknown) (no (unknown) (unknown) 10/24/22 16:40 (units (unknown) date) unknown) (unknown) (no (unknown) (unknown) 10/24/22 16:55 (units (unknown) date) unknown) (unknown) (no (unknown) (unknown) 10/24/22 17:49 (units (unknown) date) unknown) (unknown) (no (unknown) (unknown) 10/24/22 18:28 (units (unknown) date) unknown) (unknown) (no (unknown) (unknown) 10/24/22 (units (unkno wn) date) Range/Units unknown) (unknown) (no (unknown) (unknown) 10/24/22 (units (unkno wn) date) unknown) (unknown) (no (unknown) (unknown) [id number] (units (unkno wn) date) unknown) (unknown) (no (unknown) (unknown) 12 point review (units (unknown) date) of systems is unknown) negative except for those stated above (unknown) (no (unknown) (unknown) 16:14 10/24/22 (units (unknown) date) unknown) (unknown) (no (unknown) (unknown) 16:40 16:40 (units (un known) date) 16:40 unknown) (unknown) (no (unknown) (unknown) 16:51 10/24/22 (units (unknown) date) unknown) (unknown) (no (unknown) (unknown) 16:52 10/24/22 (units (unknown) date) unknown) (unknown) (no (unknown) (unknown) 16:52 (units (unkno wn) date) unknown) (unknown) (no (unknown) (unknown) 16:55 (units (unkno wn) date) unknown) (unknown) (no (unknown) (unknown) 17:00 10/24/22 (units (unknown) date) unknown) (unknown) (no (unknown) (unknown) 17:00 (units (unkno wn) date) unknown) (unknown) (no (unknown) (unknown) 17:16 10/24/22 (units (unknown) date) unknown) (unknown) (no (unknown) (unknown) 17:20 10/24/22 (units (unknown) date) unknown) (unknown) (no (unknown) (unknown) 17:20 (units (unkno wn) date) unknown) (unknown) (no (unknown) (unknown) 17:30 10/24/22 (units (unknown) date) unknown) (unknown) (no (unknown) (unknown) 17:31 10/24/22 (units (unknown) date) unknown) (unknown) (no (unknown) (unknown) 17:31 (units (unkno wn) date) unknown) (unknown) (no (unknown) (unknown) 17:35 10/24/22 (units (unknown) date) unknown) (unknown) (no (unknown) (unknown) 17:35 (units (unkno wn) date) unknown) (unknown) (no (unknown) (unknown) 17:40 10/24/22 (units (unknown) date) unknown) (unknown) (no (unknown) (unknown) 17:45 10/24/22 (units (unknown) date) unknown) (unknown) (no (unknown) (unknown) 17:51 10/24/22 (units (unknown) date) unknown) (unknown) (no (unknown) (unknown) 17:51 (units (unkno wn) date) unknown) (unknown) (no (unknown) (unknown) 17:55 10/24/22 (units (unknown) date) unknown) (unknown) (no (unknown) (unknown) 17:55 (units (unkno wn) date) unknown) (unknown) (no (unknown) (unknown) 18:00 10/24/22 (units (unknown) date) unknown) (unknown) (no (unknown) (unknown) 18:05 10/24/22 (units (unknown) date) unknown) (unknown) (no (unknown) (unknown) 18:05 (units (unkno wn) date) unknown) (unknown) (no (unknown) (unknown) 18:10 10/24/22 (units (unknown) date) unknown) (unknown) (no (unknown) (unknown) 18:10 (units (unkno wn) date) unknown) (unknown) (no (unknown) (unknown) 18:15 10/24/22 (units (unknown) date) unknown) (unknown) (no (unknown) (unknown) 18:20 10/24/22 (units (unknown) date) unknown) (unknown) (no (unknown) (unknown) 18:20 (units (unkno wn) date) unknown) (unknown) (no (unknown) (unknown) 18:25 10/24/22 (units (unknown) date) unknown) (unknown) (no (unknown) (unknown) 18:25 (units (unkno wn) date) unknown) (unknown) (no (unknown) (unknown) 18:30 10/24/22 (units (unknown) date) unknown) (unknown) (no (unknown) (unknown) 19:00 (units (unkno wn) date) unknown) (unknown) (no (unknown) (unknown) 19:07 10/24/22 (units (unknown) date) unknown) (unknown) (no (unknown) (unknown) 19:10 10/24/22 (units (unknown) date) unknown) (unknown) (no (unknown) (unknown) 19:10 (units (unkno wn) date) unknown) (unknown) (no (unknown) (unknown) 19:15 10/24/22 (units (unknown) date) unknown) (unknown) (no (unknown) (unknown) 19:15 (units (unkno wn) date) unknown) (unknown) (no (unknown) (unknown) 86-year-old male (units (unknown) date) slightly poor unknown) historian with history of AFib on Xarelto for (unknown) (no (unknown) (unknown) ALT (<50) IU/L (units (unknown) date) unknown) (unknown) (no (unknown) (unknown) ALT 27 (<50) (units (u nknown) date) IU/L unknown) (unknown) (no (unknown) (unknown) APTT (26-36) (units (u nknown) date) SECONDS unknown) (unknown) (no (unknown) (unknown) APTT 36 (26-36) (units (unknown) date) SECONDS unknown) (unknown) (no (unknown) (unknown) ASA Class: III (units (unknown) date) unknown) (unknown) (no (unknown) (unknown) AST (17-59) IU/L (units (unknown) date) unknown) (unknown) (no (unknown) (unknown) AST 32 (17-59) (units (unknown) date) IU/L unknown) (unknown) (no (unknown) (unknown) Age/Sex: 86 / M (units (unknown) date) unknown) (unknown) (no (unknown) (unknown) Alkaline (units (unkno wn) date) Phosphatase unknown) (38-126) U/L (unknown) (no (unknown) (unknown) Alkaline (units (unkno wn) date) Phosphatase 108 unknown) (38-126) U/L (unknown) (no (unknown) (unknown) Amiodarone (units (unk nown) date) HCl/Dextrose unknown) (Nexterone) 150 mg in 100 mls @ 600 mls/hr IV NOW ONE; (unknown) (no (unknown) (unknown) Aspirin (Aspirin (units (unknown) date) 81 Mg Chew Tab) unknown) 324 mg PO NOW ONE (unknown) (no (unknown) (unknown) BACK: Severe (units (u nknown) date) midline, unknown) tenderness significantly worse with motion (unknown) (no (unknown) (unknown) BUN (9-20) mg/dL (units (unknown) date) unknown) (unknown) (no (unknown) (unknown) BUN 9 (9-20) (units (u nknown) date) mg/dL unknown) (unknown) (no (unknown) (unknown) BUN/Creatinine (units (unknown) date) Ratio (6-22) unknown) (unknown) (no (unknown) (unknown) BUN/Creatinine (units (unknown) date) Ratio 11.3 (6-22) unknown) (unknown) (no (unknown) (unknown) Baso # (Auto) (units ( unknown) date) (0-100) /uL unknown) (unknown) (no (unknown) (unknown) Baso # (Auto) (units ( unknown) date) 100 (0-100) /uL unknown) (unknown) (no (unknown) (unknown) Baso % (Auto) (units ( unknown) date) (0-2) % unknown) (unknown) (no (unknown) (unknown) Baso % (Auto) (units ( unknown) date) 1.3 (0-2) % unknown) (unknown) (no (unknown) (unknown) Blood Pressure (units (unknown) date) 105/80 unknown) (unknown) (no (unknown) (unknown) Blood Pressure (units (unknown) date) 118/81 unknown) (unknown) (no (unknown) (unknown) Blood Pressure (units (unknown) date) 119/94 H unknown) (unknown) (no (unknown) (unknown) Blood Pressure (units (unknown) date) 120/82 unknown) (unknown) (no (unknown) (unknown) Blood Pressure (units (unknown) date) 121/81 135/82 unknown) (unknown) (no (unknown) (unknown) Blood Pressure (units (unknown) date) 122/83 128/79 unknown) (unknown) (no (unknown) (unknown) Blood Pressure (units (unknown) date) 123/79 121/83 unknown) (unknown) (no (unknown) (unknown) Blood Pressure (units (unknown) date) 125/90 unknown) (unknown) (no (unknown) (unknown) Blood Pressure (units (unknown) date) 129/84 117/83 unknown) (unknown) (no (unknown) (unknown) Blood Pressure (units (unknown) date) 131/75 unknown) (unknown) (no (unknown) (unknown) Blood Pressure (units (unknown) date) 131/85 153/82 H unknown) (unknown) (no (unknown) (unknown) Blood Pressure (units (unknown) date) 134/102 H unknown) (unknown) (no (unknown) (unknown) Blood Pressure (units (unknown) date) 134/87 unknown) (unknown) (no (unknown) (unknown) Blood Pressure (units (unknown) date) 143/81 H 10/24/22 unknown) 16:14 (unknown) (no (unknown) (unknown) Blood Pressure (units (unknown) date) 143/81 H 128/82 unknown) (unknown) (no (unknown) (unknown) Blood Pressure (units (unknown) date) 148/93 H unknown) (unknown) (no (unknown) (unknown) CARDIOVASCULAR: (units (unknown) date) See HPI unknown) (unknown) (no (unknown) (unknown) CARDIOVASCULAR: (units (unknown) date) Tachycardic and unknown) irregular rhythm without murmurs, gallops, or (unknown) (no (unknown) (unknown) CK-MB (CK-2) Rel (units (unknown) date) Index TNP unknown) (unknown) (no (unknown) (unknown) CK-MB (CK-2) Rel (units (unknown) date) Index unknown) (unknown) (no (unknown) (unknown) CK-MB (CK-2) TNP (units (unknown) date) unknown) (unknown) (no (unknown) (unknown) CK-MB (CK-2) (units (u nknown) date) unknown) (unknown) (no (unknown) (unknown) COVID19 -Nasal (units (unknown) date) RAPID/Pre-Proc unknown) Stat (unknown) (no (unknown) (unknown) CT chest abd pel (units (unknown) date) w con Stat unknown) (unknown) (no (unknown) (unknown) Calcium (units (unkno wn) date) (8.4-10.2) mg/dL unknown) (unknown) (no (unknown) (unknown) Calcium 9.0 (units (un known) date) (8.4-10.2) mg/dL unknown) (unknown) (no (unknown) (unknown) Carbon Dioxide (units (unknown) date) (22-32) mmol/L unknown) (unknown) (no (unknown) (unknown) Carbon Dioxide (units (unknown) date) 23 (22-32) mmol/L unknown) (unknown) (no (unknown) (unknown) Cardiac rhythm (units (unknown) date) post-cardioversio unknown) n: NSR (unknown) (no (unknown) (unknown) Cardioversion (units ( unknown) date) unknown) (unknown) (no (unknown) (unknown) Chief Complaint: (units (unknown) date) Arrhythmia/Palpit unknown) ations (unknown) (no (unknown) (unknown) Chloride (units (unkno wn) date) (98-107) mmol/L unknown) (unknown) (no (unknown) (unknown) Chloride 106 (units (u nknown) date) (98-107) mmol/L unknown) (unknown) (no (unknown) (unknown) Complete Blood (units (unknown) date) Count AUTO DIFF unknown) Stat (unknown) (no (unknown) (unknown) Complications: (units (unknown) date) none unknown) (unknown) (no (unknown) (unknown) Comprehensive (units ( unknown) date) Metabolic Panel unknown) Stat (unknown) (no (unknown) (unknown) Consent Signed: (units (unknown) date) Yes unknown) (unknown) (no (unknown) (unknown) Consent signed: (units (unknown) date) Yes unknown) (unknown) (no (unknown) (unknown) Consultation #1: (units (unknown) date) unknown) (unknown) (no (unknown) (unknown) Consultations (units ( unknown) date) unknown) (unknown) (no (unknown) (unknown) Course (units (unkno wn) date) unknown) (unknown) (no (unknown) (unknown) Creatinine (units (unk nown) date) (0.66-1.25) mg/dL unknown) (unknown) (no (unknown) (unknown) Creatinine 0.80 (units (unknown) date) (0.66-1.25) mg/dL unknown) (unknown) (no (unknown) (unknown) : 1935 (units (unknown) date) Acct:[id number] unknown) (unknown) (no (unknown) (unknown) Date of Service: (units (unknown) date) 10/24/22 unknown) (unknown) (no (unknown) (unknown) Discontinued (units (u nknown) date) Medications unknown) (unknown) (no (unknown) (unknown) Documented By: (units (unknown) date) RL unknown) (unknown) (no (unknown) (unknown) ED Orders (units (unkn own) date) unknown) (unknown) (no (unknown) (unknown) ED Sedation (units (un known) date) Level: Moderate unknown) (Concious) (unknown) (no (unknown) (unknown) EKG-12 Lead (units (un known) date) Routine unknown) (unknown) (no (unknown) (unknown) EKG-12 Lead Stat (units (unknown) date) unknown) (unknown) (no (unknown) (unknown) ENT: Nose (units (unkn own) date) without bleeding, unknown) purulent drainage. Throat without erythema, (unknown) (no (unknown) (unknown) ER Physician: (units ( unknown) date) Khari Walls unknown) D.O. (unknown) (no (unknown) (unknown) EXTREMITIES: No (units (unknown) date) edema or joint unknown) tenderness. (unknown) (no (unknown) (unknown) EYES: Pupils (units (u nknown) date) equal round and unknown) reactive. Extraocular motions intact. No scleral (unknown) (no (unknown) (unknown) Emergency Report (units (unknown) date) unknown) (unknown) (no (unknown) (unknown) Eos # (Auto) (units (u nknown) date) (0-450) /uL unknown) (unknown) (no (unknown) (unknown) Eos # (Auto) 200 (units (unknown) date) (0-450) /uL unknown) (unknown) (no (unknown) (unknown) Eos % (Auto) (units (u nknown) date) (2-4) % unknown) (unknown) (no (unknown) (unknown) Eos % (Auto) 2.1 (units (unknown) date) (2-4) % unknown) (unknown) (no (unknown) (unknown) Estimated GFR > (units (unknown) date) 60 (>60) mL/min unknown) (unknown) (no (unknown) (unknown) Estimated GFR (units ( unknown) date) (>60) mL/min unknown) (unknown) (no (unknown) (unknown) Exam Narrative: (units (unknown) date) unknown) (unknown) (no (unknown) (unknown) Exam (units (unkno wn) date) unknown) (unknown) (no (unknown) (unknown) GASTROINTESTINAL (units (unknown) date) : Abdomen soft, unknown) non-tender, nondistended. (unknown) (no (unknown) (unknown) GASTROINTESTINAL (units (unknown) date) : Denies nausea, unknown) vomiting, abdominal pain, diarrhea, (unknown) (no (unknown) (unknown) GENERAL: Denies (units (unknown) date) chills, fatigue, unknown) malaise, fever, sweats. (unknown) (no (unknown) (unknown) GENERAL: [86] (units ( unknown) date) year old patient unknown) appears stated age. Well-developed patient, in (unknown) (no (unknown) (unknown) : Denies (units (unk nown) date) dysuria, unknown) frequency, incontinence, hematuria, urinary retention. (unknown) (no (unknown) (unknown) General (units (unkno wn) date) unknown) (unknown) (no (unknown) (unknown) Glucose (80-110) (units (unknown) date) mg/dL unknown) (unknown) (no (unknown) (unknown) Glucose 89 (units (unk nown) date) (80-110) mg/dL unknown) (unknown) (no (unknown) (unknown) HEAD: (units (unkno wn) date) Atraumatic. unknown) Normocephalic. (unknown) (no (unknown) (unknown) HEENT: Denies (units ( unknown) date) sinus pain, ear unknown) pain, sore throat, difficulty swallowing, (unknown) (no (unknown) (unknown) HPI - (units (unkno wn) date) Arrhythmia/Palpit unknown) ations (unknown) (no (unknown) (unknown) HPI narrative: (units (unknown) date) unknown) (unknown) (no (unknown) (unknown) Hct (41-53) % (units ( unknown) date) unknown) (unknown) (no (unknown) (unknown) Hct 45.9 (41-53) (units (unknown) date) % unknown) (unknown) (no (unknown) (unknown) He states he has (units (unknown) date) significant pain unknown) that is worse with range of motion and (unknown) (no (unknown) (unknown) Hgb (13.5-17.5) (units (unknown) date) g/dL unknown) (unknown) (no (unknown) (unknown) Hgb 15.6 (units (o wn) date) (13.5-17.5) g/dL unknown) (unknown) (no (unknown) (unknown) History of (units (unk n) date) Present Illness unknown) (unknown) (no (unknown) (unknown) INR (0.9-1.3) (units ( unknown) date) unknown) (unknown) (no (unknown) (unknown) INR 1.5 H (units (unkn own) date) (0.9-1.3) unknown) (unknown) (no (unknown) (unknown) IV Propofol dose (units (unknown) date) (mg): 40 unknown) (unknown) (no (unknown) (unknown) Indication: (units (un known) date) cardioversion unknown) (unknown) (no (unknown) (unknown) Indication: (units (un known) date) unknown) (unknown) (no (unknown) (unknown) Initial Vital (units ( unknown) date) Signs unknown) (unknown) (no (unknown) (unknown) Initial Vital (units ( unknown) date) Signs: unknown) (unknown) (no (unknown) (unknown) Intraservice (units (u nknown) date) time/total unknown) sedation time (min): 10 (unknown) (no (unknown) (unknown) [facility] (units (unknown) date) [address] unknown) [place] [address] (unknown) (no (unknown) (unknown) Joules used: 120 (units (unknown) date) unknown) (unknown) (no (unknown) (unknown) Lab Data (units (unkno wn) date) unknown) (unknown) (no (unknown) (unknown) Lab Results (units (un known) date) unknown) (unknown) (no (unknown) (unknown) Labs: (units (unkno wn) date) unknown) (unknown) (no (unknown) (unknown) Last Admin: (units (un known) date) 10/24/22 16:53 unknown) Dose: 324 mg (unknown) (no (unknown) (unknown) Last Admin: (units (un known) date) 10/24/22 17:42 unknown) Dose: 40 mg (unknown) (no (unknown) (unknown) Lipase (23-300) (units (unknown) date) U/L unknown) (unknown) (no (unknown) (unknown) Lipase 169 (units (unk nown) date) (23-300) U/L unknown) (unknown) (no (unknown) (unknown) Lipase Stat (units (un known) date) unknown) (unknown) (no (unknown) (unknown) Lymph # (Auto) (units (unknown) date) (5524-8669) /uL unknown) (unknown) (no (unknown) (unknown) Lymph # (Auto) (units (unknown) date) 2300 (3313-5778) unknown) /uL (unknown) (no (unknown) (unknown) Lymph % (Auto) (units (unknown) date) (25-40) % unknown) (unknown) (no (unknown) (unknown) Lymph % (Auto) (units (unknown) date) 22.0 L (25-40) % unknown) (unknown) (no (unknown) (unknown) MCH (26-34) PG (units (unknown) date) unknown) (unknown) (no (unknown) (unknown) MCH 33.9 (26-34) (units (unknown) date) PG unknown) (unknown) (no (unknown) (unknown) MCHC (30-36) % (units (unknown) date) unknown) (unknown) (no (unknown) (unknown) MCHC 34.1 (units (unkn own) date) (30-36) % unknown) (unknown) (no (unknown) (unknown) MCV (80-100) fL (units (unknown) date) unknown) (unknown) (no (unknown) (unknown) MCV 99.4 (units (unkno wn) date) (80-100) fL unknown) (unknown) (no (unknown) (unknown) MDM - (units (unkno wn) date) Arrhythmia/Palpit unknown) ations (unknown) (no (unknown) (unknown) MUSCULOSKELETAL: (units (unknown) date) See HPI unknown) (unknown) (no (unknown) (unknown) Magnesium (units (unkn own) date) (1.6-2.3) mg/dL unknown) (unknown) (no (unknown) (unknown) Magnesium 1.9 (units ( unknown) date) (1.6-2.3) mg/dL unknown) (unknown) (no (unknown) (unknown) Magnesium Stat (units (unknown) date) unknown) (unknown) (no (unknown) (unknown) Mallampati (units (unk nown) date) Airway unknown) Classification: Class II (unknown) (no (unknown) (unknown) Mode of arrival: (units (unknown) date) Family Vehicle unknown) (unknown) (no (unknown) (unknown) Brule # (Auto) (units ( unknown) date) (0-900) /uL unknown) (unknown) (no (unknown) (unknown) Brule # (Auto) (units ( unknown) date) 1100 H (0-900) unknown) /uL (unknown) (no (unknown) (unknown) Brule % (Auto) (units ( unknown) date) (3-14) % unknown) (unknown) (no (unknown) (unknown) Brule % (Auto) (units ( unknown) date) 11.0 (3-14) % unknown) (unknown) (no (unknown) (unknown) NECK: [place] (units ( unknown) date) midline. Non unknown) tender (unknown) (no (unknown) (unknown) NEURO: AOx3. (units (u nknown) date) unknown) (unknown) (no (unknown) (unknown) NEUROLOGIC: See (units (unknown) date) HPI unknown) (unknown) (no (unknown) (unknown) Narrative (units (unkn own) date) unknown) (unknown) (no (unknown) (unknown) Narrative: (units (unk nown) date) unknown) (unknown) (no (unknown) (unknown) Neut # (Auto) (units ( unknown) date) (9056-6695) /uL unknown) (unknown) (no (unknown) (unknown) Neut # (Auto) (units ( unknown) date) 6500 (0023-6305) unknown) /uL (unknown) (no (unknown) (unknown) Neut % (Auto) (units ( unknown) date) (50-75) % unknown) (unknown) (no (unknown) (unknown) Neut % (Auto) (units ( unknown) date) 63.6 (50-75) % unknown) (unknown) (no (unknown) (unknown) Number of (units (unkn own) date) attempts unknown) (shocks): 1 (unknown) (no (unknown) (unknown) Ordered: (units (unkno wn) date) unknown) (unknown) (no (unknown) (unknown) Orders (units (unkno wn) date) unknown) (unknown) (no (unknown) (unknown) Oxygen Delivery (units (unknown) date) Method 10/24/22 unknown) 16:14 (unknown) (no (unknown) (unknown) Oxygen Delivery (units (unknown) date) Method Room Air unknown) (unknown) (no (unknown) (unknown) Oxygen Delivery (units (unknown) date) Method unknown) (unknown) (no (unknown) (unknown) PSYCHIATRIC: No (units (unknown) date) concerning unknown) psychosocial issues. (unknown) (no (unknown) (unknown) PT (10.1-12.7) (units (unknown) date) SECONDS unknown) (unknown) (no (unknown) (unknown) PT 17.4 H (units (unkn own) date) (10.1-12.7) unknown) SECONDS (unknown) (no (unknown) (unknown) Partial (units (unkno wn) date) Thromboplastin unknown) Time Stat (unknown) (no (unknown) (unknown) Patient History (units (unknown) date) unknown) (unknown) (no (unknown) (unknown) Patient (units (o wn) date) Tolerated unknown) Procedure: Well (unknown) (no (unknown) (unknown) Patient (units (unkno wn) date) converted as unknown) noted above, however 2 episodes of nonsustained V-tach in (unknown) (no (unknown) (unknown) Patient: (units (o wn) date) Nicolas Neely unknown) MR#: [id number] (unknown) (no (unknown) (unknown) Plt Count (units (unkn own) date) (150-400) X103/uL unknown) (unknown) (no (unknown) (unknown) Plt Count 218 (units ( unknown) date) (150-400) X103/uL unknown) (unknown) (no (unknown) (unknown) Potassium (units (unkn own) date) (3.4-5.1) mmol/L unknown) (unknown) (no (unknown) (unknown) Potassium 3.8 (units ( unknown) date) (3.4-5.1) mmol/L unknown) (unknown) (no (unknown) (unknown) Preparation: (units (u nknown) date) monitoring and evaluation advisor unknown) applied, pulse oximeter, capnometry used, (unknown) (no (unknown) (unknown) Procedural (units (unk n) date) Sedation unknown) (unknown) (no (unknown) (unknown) Procedures (units (unk nown) date) unknown) (unknown) (no (unknown) (unknown) Propofol (units (o wn) date) (Propofol 200 unknown) Mg/20 Ml Vial) 70 mg 1 mg/kg (70 mg) IV NOW ONE (unknown) (no (unknown) (unknown) Prothrombin Time (units (unknown) date) INR Stat unknown) (unknown) (no (unknown) (unknown) Protocol (units (o wn) date) unknown) (unknown) (no (unknown) (unknown) Pulse Oximetry (units (unknown) date) 94 unknown) (unknown) (no (unknown) (unknown) Pulse Oximetry (units (unknown) date) 95 95 unknown) (unknown) (no (unknown) (unknown) Pulse Oximetry (units (unknown) date) 95 96 unknown) (unknown) (no (unknown) (unknown) Pulse Oximetry (units (unknown) date) 95 unknown) (unknown) (no (unknown) (unknown) Pulse Oximetry (units (unknown) date) 96 95 unknown) (unknown) (no (unknown) (unknown) Pulse Oximetry (units (unknown) date) 96 97 unknown) (unknown) (no (unknown) (unknown) Pulse Oximetry (units (unknown) date) 96 unknown) (unknown) (no (unknown) (unknown) Pulse Oximetry (units (unknown) date) 97 10/24/22 16:14 unknown) (unknown) (no (unknown) (unknown) Pulse Oximetry (units (unknown) date) 97 97 unknown) (unknown) (no (unknown) (unknown) Pulse Oximetry (units (unknown) date) 98 99 unknown) (unknown) (no (unknown) (unknown) Pulse Oximetry (units (unknown) date) 98 unknown) (unknown) (no (unknown) (unknown) Pulse Rate 133 H (units (unknown) date) unknown) (unknown) (no (unknown) (unknown) Pulse Rate 135 H (units (unknown) date) 10/24/22 16:14 unknown) (unknown) (no (unknown) (unknown) Pulse Rate 135 H (units (unknown) date) 118 H unknown) (unknown) (no (unknown) (unknown) Pulse Rate 135 H (units (unknown) date) 130 H unknown) (unknown) (no (unknown) (unknown) Pulse Rate 136 H (units (unknown) date) 131 H unknown) (unknown) (no (unknown) (unknown) Pulse Rate 138 H (units (unknown) date) 140 H unknown) (unknown) (no (unknown) (unknown) Pulse Rate 143 H (units (unknown) date) 136 H unknown) (unknown) (no (unknown) (unknown) Pulse Rate 85 86 (units (unknown) date) unknown) (unknown) (no (unknown) (unknown) Pulse Rate 85 (units ( unknown) date) unknown) (unknown) (no (unknown) (unknown) Pulse Rate 86 (units ( unknown) date) unknown) (unknown) (no (unknown) (unknown) Pulse Rate 87 84 (units (unknown) date) unknown) (unknown) (no (unknown) (unknown) Pulse Rate 87 89 (units (unknown) date) unknown) (unknown) (no (unknown) (unknown) Pulse Rate 88 89 (units (unknown) date) unknown) (unknown) (no (unknown) (unknown) Pulse Rate 90 85 (units (unknown) date) unknown) (unknown) (no (unknown) (unknown) Pulse Rate 90 (units ( unknown) date) unknown) (unknown) (no (unknown) (unknown) RBC (4.5-5.9) (units ( unknown) date) X106/uL unknown) (unknown) (no (unknown) (unknown) RBC 4.62 (units (unkno wn) date) (4.5-5.9) X106/uL unknown) (unknown) (no (unknown) (unknown) RDW (11.6-14.8) (units (unknown) date) % unknown) (unknown) (no (unknown) (unknown) RDW 14.5 (units (unkno wn) date) (11.6-14.8) % unknown) (unknown) (no (unknown) (unknown) RESPIRATORY: (units (un known) date) Clear to unknown) auscultation. Breath sounds equal bilaterally. No wheezes, (unknown) (no (unknown) (unknown) RESPIRATORY: See (units (unknown) date) HPI unknown) (unknown) (no (unknown) (unknown) Reevaluation #1: (units (unknown) date) unknown) (unknown) (no (unknown) (unknown) Reevaluation(s) (units (unknown) date) unknown) (unknown) (no (unknown) (unknown) Respiratory Rate (units (unknown) date) 11 L unknown) (unknown) (no (unknown) (unknown) Respiratory Rate (units (unknown) date) 13 10 L unknown) (unknown) (no (unknown) (unknown) Respiratory Rate (units (unknown) date) 14 14 unknown) (unknown) (no (unknown) (unknown) Respiratory Rate (units (unknown) date) 14 21 unknown) (unknown) (no (unknown) (unknown) Respiratory Rate (units (unknown) date) 14 unknown) (unknown) (no (unknown) (unknown) Respiratory Rate (units (unknown) date) 15 13 unknown) (unknown) (no (unknown) (unknown) Respiratory Rate (units (unknown) date) 15 16 unknown) (unknown) (no (unknown) (unknown) Respiratory Rate (units (unknown) date) 15 unknown) (unknown) (no (unknown) (unknown) Respiratory Rate (units (unknown) date) 16 17 unknown) (unknown) (no (unknown) (unknown) Respiratory Rate (units (unknown) date) 18 12 unknown) (unknown) (no (unknown) (unknown) Respiratory Rate (units (unknown) date) 18 unknown) (unknown) (no (unknown) (unknown) Respiratory Rate (units (unknown) date) 19 10/24/22 16:14 unknown) (unknown) (no (unknown) (unknown) Respiratory Rate (units (unknown) date) 19 22 unknown) (unknown) (no (unknown) (unknown) Respiratory Rate (units (unknown) date) 20 13 unknown) (unknown) (no (unknown) (unknown) Respiratory Rate (units (unknown) date) 23 15 unknown) (unknown) (no (unknown) (unknown) Result diagrams: (units (unknown) date) unknown) (unknown) (no (unknown) (unknown) Review of (units (unkn own) date) Systems unknown) (unknown) (no (unknown) (unknown) SARS-CoV-2 (PCR) (units (unknown) date) (Negative) unknown) (unknown) (no (unknown) (unknown) SARS-CoV-2 (PCR) (units (unknown) date) Negative unknown) (Negative) (unknown) (no (unknown) (unknown) SKIN: Denies (units (u nknown) date) rash, skin unknown) lesions, or other (unknown) (no (unknown) (unknown) SKIN: No rash or (units (unknown) date) erythema of unknown) visible areas (unknown) (no (unknown) (unknown) Signed By: (units (unk nown) date) unknown) (unknown) (no (unknown) (unknown) Smoking Status: (units (unknown) date) Never smoker unknown) (unknown) (no (unknown) (unknown) Social History (units (unknown) date) unknown) (unknown) (no (unknown) (unknown) Sodium (137-145) (units (unknown) date) mmol/L unknown) (unknown) (no (unknown) (unknown) Sodium 139 (units (unk nown) date) (137-145) mmol/L unknown) (unknown) (no (unknown) (unknown) Source: patient (units (unknown) date) unknown) (unknown) (no (unknown) (unknown) Stability: (units (unk nown) date) Stable unknown) (unknown) (no (unknown) (unknown) Stated (units (unkno wn) date) Complaint: Back unknown) pain (unknown) (no (unknown) (unknown) Stop: 10/24/22 (units (unknown) date) 16:29 unknown) (unknown) (no (unknown) (unknown) Stop: 10/24/22 (units (unknown) date) 17:28 unknown) (unknown) (no (unknown) (unknown) Stop: 10/24/22 (units (unknown) date) 18:31 unknown) (unknown) (no (unknown) (unknown) Temperature 98.2 (units (unknown) date) F 10/24/22 16:14 unknown) (unknown) (no (unknown) (unknown) Temperature 98.2 (units (unknown) date) F unknown) (unknown) (no (unknown) (unknown) Temperature (units (un known) date) unknown) (unknown) (no (unknown) (unknown) Time Seen by (units (u nknown) date) Provider: unknown) 10/24/22 16:34 (unknown) (no (unknown) (unknown) Time out (units (unkno wn) date) performed: Yes unknown) (unknown) (no (unknown) (unknown) Total Bilirubin (units (unknown) date) (0.2-1.3) mg/dL unknown) (unknown) (no (unknown) (unknown) Total Bilirubin (units (unknown) date) 1.1 (0.2-1.3) unknown) mg/dL (unknown) (no (unknown) (unknown) Total Creatine (units (unknown) date) Kinase < 20 L unknown) (55-170) U/L (unknown) (no (unknown) (unknown) Total Creatine (units (unknown) date) Kinase (55-170) unknown) U/L (unknown) (no (unknown) (unknown) Total Protein (units ( unknown) date) (6.3-8.2) g/dL unknown) (unknown) (no (unknown) (unknown) Total Protein (units ( unknown) date) 7.9 (6.3-8.2) unknown) g/dL (unknown) (no (unknown) (unknown) Troponin + CK (units ( unknown) date) Cardiac Panel unknown) Stat (unknown) (no (unknown) (unknown) Troponin I < (units (u nknown) date) 0.012 unknown) (0.01-0.034) ng/mL (unknown) (no (unknown) (unknown) Troponin I (units (unk nown) date) (0.01-0.034) unknown) ng/mL (unknown) (no (unknown) (unknown) Vital Signs - 8 (units (unknown) date) hr unknown) (unknown) (no (unknown) (unknown) Vital Signs (units (un known) date) unknown) (unknown) (no (unknown) (unknown) Vital signs: (units (u nknown) date) unknown) (unknown) (no (unknown) (unknown) WBC (4.5-11.0) (units (unknown) date) X103/uL unknown) (unknown) (no (unknown) (unknown) WBC 10.3 (units (unkno wn) date) (4.5-11.0) unknown) X103/uL (unknown) (no (unknown) (unknown) XR chest 1V Stat (units (unknown) date) unknown) (unknown) (no (unknown) (unknown) [Embedded Image (units (unknown) date) Not Available] unknown) (unknown) (no (unknown) (unknown) alcohol intake (units (unknown) date) frequency: unknown) holidays/special occasions only (unknown) (no (unknown) (unknown) but primarily (units ( unknown) date) due to severe unknown) midline low back pain. He had 2 falls, the most (unknown) (no (unknown) (unknown) constipation, (units ( unknown) date) melena. unknown) (unknown) (no (unknown) (unknown) discussed with (units (unknown) date) Dr. Renee (on unknown) call Cardio), no indication for amio at this (unknown) (no (unknown) (unknown) dizziness. 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 He denies any (unknown) (no (unknown) (unknown) frequently short (units (unknown) date) of breath but unknown) admits that the majority of his day is consume (unknown) (no (unknown) (unknown) icterus. No (units (un known) date) injection or unknown) drainage. (unknown) (no (unknown) (unknown) improves with (units ( unknown) date) rest. He denies unknown) any chest pain but does state that he is (unknown) (no (unknown) (unknown) many years, (units (un known) date) pacemaker unknown) placement for sick sinus syndrome, history of ventricular (unknown) (no (unknown) (unknown) numbness, (units (unkn own) date) tingling or unknown) weakness, denies any loss of control of bowel or bladder. (unknown) (no (unknown) (unknown) obvious (units (unkno wn) date) distress. unknown) Complaining of low back pain (unknown) (no (unknown) (unknown) palpitations, (units ( unknown) date) chest pain or unknown) shortness of breath this. (unknown) (no (unknown) (unknown) rales, or (units (unkn own) date) rhonchi. unknown) (unknown) (no (unknown) (unknown) rapid atrial fib (units (unknown) date) unknown) (unknown) (no (unknown) (unknown) recent of which (units (unknown) date) was in the end of unknown) September and has advanced imaging from our (unknown) (no (unknown) (unknown) rubs. (units (unkno wn) date) unknown) (unknown) (no (unknown) (unknown) supplemental O2 (units (unknown) date) applied, unknown) suction/airway equipment at bedside and IV secured (unknown) (no (unknown) (unknown) tachycardia (units (un known) date) presents for unknown) evaluation episodes of shortness of breath and fatigue (unknown) (no (unknown) (unknown) the aftermath (units ( unknown) date) measuring 8 and unknown) 10 beats a piece, patient did not have any (unknown) (no (unknown) (unknown) time, consult (units ( unknown) date) with [facility] unknown) (unknown) (no (unknown) (unknown) tonsillar (units (unkn own) date) hypertrophy or unknown) exudate. Airway patent. (unknown) (no (unknown) (unknown) with severe pain (units (unknown) date) unknown) Result panel 246 (unknown) (no (unknown) (unknown) (no value) (units (unk nown) date) unknown) (unknown) (no (unknown) (unknown) 10/24/22 (units (unkno wn) date) 10/24/22 10/24/22 unknown) Range/Units (unknown) (no (unknown) (unknown) 10/24/22 16:28 (units (unknown) date) unknown) (unknown) (no (unknown) (unknown) 10/24/22 16:35 (units (unknown) date) unknown) (unknown) (no (unknown) (unknown) 10/24/22 16:40 (units (unknown) date) unknown) (unknown) (no (unknown) (unknown) 10/24/22 16:55 (units (unknown) date) unknown) (unknown) (no (unknown) (unknown) 10/24/22 17:49 (units (unknown) date) unknown) (unknown) (no (unknown) (unknown) 10/24/22 18:28 (units (unknown) date) unknown) (unknown) (no (unknown) (unknown) 10/24/22 (units (unkno wn) date) Range/Units unknown) (unknown) (no (unknown) (unknown) 10/24/22 (units (unkno wn) date) unknown) (unknown) (no (unknown) (unknown) [id number] (units (unkno wn) date) unknown) (unknown) (no (unknown) (unknown) 12 point review (units (unknown) date) of systems is unknown) negative except for those stated above (unknown) (no (unknown) (unknown) 16:14 10/24/22 (units (unknown) date) unknown) (unknown) (no (unknown) (unknown) 16:40 16:40 (units (un known) date) 16:40 unknown) (unknown) (no (unknown) (unknown) 16:51 10/24/22 (units (unknown) date) unknown) (unknown) (no (unknown) (unknown) 16:52 10/24/22 (units (unknown) date) unknown) (unknown) (no (unknown) (unknown) 16:52 (units (unkno wn) date) unknown) (unknown) (no (unknown) (unknown) 16:55 (units (unkno wn) date) unknown) (unknown) (no (unknown) (unknown) 17:00 10/24/22 (units (unknown) date) unknown) (unknown) (no (unknown) (unknown) 17:00 (units (unkno wn) date) unknown) (unknown) (no (unknown) (unknown) 17:16 10/24/22 (units (unknown) date) unknown) (unknown) (no (unknown) (unknown) 17:20 10/24/22 (units (unknown) date) unknown) (unknown) (no (unknown) (unknown) 17:20 (units (unkno wn) date) unknown) (unknown) (no (unknown) (unknown) 17:30 10/24/22 (units (unknown) date) unknown) (unknown) (no (unknown) (unknown) 17:31 10/24/22 (units (unknown) date) unknown) (unknown) (no (unknown) (unknown) 17:31 (units (unkno wn) date) unknown) (unknown) (no (unknown) (unknown) 17:35 10/24/22 (units (unknown) date) unknown) (unknown) (no (unknown) (unknown) 17:35 (units (unkno wn) date) unknown) (unknown) (no (unknown) (unknown) 17:40 10/24/22 (units (unknown) date) unknown) (unknown) (no (unknown) (unknown) 17:45 10/24/22 (units (unknown) date) unknown) (unknown) (no (unknown) (unknown) 17:51 10/24/22 (units (unknown) date) unknown) (unknown) (no (unknown) (unknown) 17:51 (units (unkno wn) date) unknown) (unknown) (no (unknown) (unknown) 17:55 10/24/22 (units (unknown) date) unknown) (unknown) (no (unknown) (unknown) 17:55 (units (unkno wn) date) unknown) (unknown) (no (unknown) (unknown) 18:00 10/24/22 (units (unknown) date) unknown) (unknown) (no (unknown) (unknown) 18:05 10/24/22 (units (unknown) date) unknown) (unknown) (no (unknown) (unknown) 18:05 (units (unkno wn) date) unknown) (unknown) (no (unknown) (unknown) 18:10 10/24/22 (units (unknown) date) unknown) (unknown) (no (unknown) (unknown) 18:10 (units (unkno wn) date) unknown) (unknown) (no (unknown) (unknown) 18:15 10/24/22 (units (unknown) date) unknown) (unknown) (no (unknown) (unknown) 18:20 10/24/22 (units (unknown) date) unknown) (unknown) (no (unknown) (unknown) 18:20 (units (unkno wn) date) unknown) (unknown) (no (unknown) (unknown) 18:25 10/24/22 (units (unknown) date) unknown) (unknown) (no (unknown) (unknown) 18:25 (units (unkno wn) date) unknown) (unknown) (no (unknown) (unknown) 18:30 10/24/22 (units (unknown) date) unknown) (unknown) (no (unknown) (unknown) 19:00 (units (unkno wn) date) unknown) (unknown) (no (unknown) (unknown) 19:07 10/24/22 (units (unknown) date) unknown) (unknown) (no (unknown) (unknown) 19:10 10/24/22 (units (unknown) date) unknown) (unknown) (no (unknown) (unknown) 19:10 (units (unkno wn) date) unknown) (unknown) (no (unknown) (unknown) 19:15 10/24/22 (units (unknown) date) unknown) (unknown) (no (unknown) (unknown) 19:15 (units (unkno wn) date) unknown) (unknown) (no (unknown) (unknown) 86-year-old male (units (unknown) date) slightly poor unknown) historian with history of AFib on Xarelto for (unknown) (no (unknown) (unknown) ALT (<50) IU/L (units (unknown) date) unknown) (unknown) (no (unknown) (unknown) ALT 27 (<50) (units (u nknown) date) IU/L unknown) (unknown) (no (unknown) (unknown) APTT (26-36) (units (u nknown) date) SECONDS unknown) (unknown) (no (unknown) (unknown) APTT 36 (26-36) (units (unknown) date) SECONDS unknown) (unknown) (no (unknown) (unknown) ASA Class: III (units (unknown) date) unknown) (unknown) (no (unknown) (unknown) AST (17-59) IU/L (units (unknown) date) unknown) (unknown) (no (unknown) (unknown) AST 32 (17-59) (units (unknown) date) IU/L unknown) (unknown) (no (unknown) (unknown) Age/Sex: 86 / M (units (unknown) date) unknown) (unknown) (no (unknown) (unknown) Alkaline (units (unkno wn) date) Phosphatase unknown) (38-126) U/L (unknown) (no (unknown) (unknown) Alkaline (units (unkno wn) date) Phosphatase 108 unknown) (38-126) U/L (unknown) (no (unknown) (unknown) Amiodarone (units (unk nown) date) HCl/Dextrose unknown) (Nexterone) 150 mg in 100 mls @ 600 mls/hr IV NOW ONE; (unknown) (no (unknown) (unknown) Aspirin (Aspirin (units (unknown) date) 81 Mg Chew Tab) unknown) 324 mg PO NOW ONE (unknown) (no (unknown) (unknown) BACK: Severe (units (u nknown) date) midline, unknown) tenderness significantly worse with motion (unknown) (no (unknown) (unknown) BUN (9-20) mg/dL (units (unknown) date) unknown) (unknown) (no (unknown) (unknown) BUN 9 (9-20) (units (u nknown) date) mg/dL unknown) (unknown) (no (unknown) (unknown) BUN/Creatinine (units (unknown) date) Ratio (6-22) unknown) (unknown) (no (unknown) (unknown) BUN/Creatinine (units (unknown) date) Ratio 11.3 (6-22) unknown) (unknown) (no (unknown) (unknown) Baso # (Auto) (units ( unknown) date) (0-100) /uL unknown) (unknown) (no (unknown) (unknown) Baso # (Auto) (units ( unknown) date) 100 (0-100) /uL unknown) (unknown) (no (unknown) (unknown) Baso % (Auto) (units ( unknown) date) (0-2) % unknown) (unknown) (no (unknown) (unknown) Baso % (Auto) (units ( unknown) date) 1.3 (0-2) % unknown) (unknown) (no (unknown) (unknown) Blood Pressure (units (unknown) date) 105/80 unknown) (unknown) (no (unknown) (unknown) Blood Pressure (units (unknown) date) 118/81 unknown) (unknown) (no (unknown) (unknown) Blood Pressure (units (unknown) date) 119/94 H unknown) (unknown) (no (unknown) (unknown) Blood Pressure (units (unknown) date) 120/82 unknown) (unknown) (no (unknown) (unknown) Blood Pressure (units (unknown) date) 121/81 135/82 unknown) (unknown) (no (unknown) (unknown) Blood Pressure (units (unknown) date) 122/83 128/79 unknown) (unknown) (no (unknown) (unknown) Blood Pressure (units (unknown) date) 123/79 121/83 unknown) (unknown) (no (unknown) (unknown) Blood Pressure (units (unknown) date) 125/90 unknown) (unknown) (no (unknown) (unknown) Blood Pressure (units (unknown) date) 129/84 117/83 unknown) (unknown) (no (unknown) (unknown) Blood Pressure (units (unknown) date) 131/75 unknown) (unknown) (no (unknown) (unknown) Blood Pressure (units (unknown) date) 131/85 153/82 H unknown) (unknown) (no (unknown) (unknown) Blood Pressure (units (unknown) date) 134/102 H unknown) (unknown) (no (unknown) (unknown) Blood Pressure (units (unknown) date) 134/87 unknown) (unknown) (no (unknown) (unknown) Blood Pressure (units (unknown) date) 143/81 H 10/24/22 unknown) 16:14 (unknown) (no (unknown) (unknown) Blood Pressure (units (unknown) date) 143/81 H 128/82 unknown) (unknown) (no (unknown) (unknown) Blood Pressure (units (unknown) date) 148/93 H unknown) (unknown) (no (unknown) (unknown) CARDIOVASCULAR: (units (unknown) date) See HPI unknown) (unknown) (no (unknown) (unknown) CARDIOVASCULAR: (units (unknown) date) Tachycardic and unknown) irregular rhythm without murmurs, gallops, or (unknown) (no (unknown) (unknown) CK-MB (CK-2) Rel (units (unknown) date) Index TNP unknown) (unknown) (no (unknown) (unknown) CK-MB (CK-2) Rel (units (unknown) date) Index unknown) (unknown) (no (unknown) (unknown) CK-MB (CK-2) TNP (units (unknown) date) unknown) (unknown) (no (unknown) (unknown) CK-MB (CK-2) (units (u nknown) date) unknown) (unknown) (no (unknown) (unknown) COVID19 -Nasal (units (unknown) date) RAPID/Pre-Proc unknown) Stat (unknown) (no (unknown) (unknown) CT chest abd pel (units (unknown) date) w con Stat unknown) (unknown) (no (unknown) (unknown) Calcium (units (unkno wn) date) (8.4-10.2) mg/dL unknown) (unknown) (no (unknown) (unknown) Calcium 9.0 (units (un known) date) (8.4-10.2) mg/dL unknown) (unknown) (no (unknown) (unknown) Carbon Dioxide (units (unknown) date) (22-32) mmol/L unknown) (unknown) (no (unknown) (unknown) Carbon Dioxide (units (unknown) date) 23 (22-32) mmol/L unknown) (unknown) (no (unknown) (unknown) Cardiac rhythm (units (unknown) date) post-cardioversio unknown) n: NSR (unknown) (no (unknown) (unknown) Cardioversion (units ( unknown) date) unknown) (unknown) (no (unknown) (unknown) Chief Complaint: (units (unknown) date) Arrhythmia/Palpit unknown) ations (unknown) (no (unknown) (unknown) Chloride (units (unkno wn) date) (98-107) mmol/L unknown) (unknown) (no (unknown) (unknown) Chloride 106 (units (u nknown) date) (98-107) mmol/L unknown) (unknown) (no (unknown) (unknown) Complete Blood (units (unknown) date) Count AUTO DIFF unknown) Stat (unknown) (no (unknown) (unknown) Complications: (units (unknown) date) none unknown) (unknown) (no (unknown) (unknown) Comprehensive (units ( unknown) date) Metabolic Panel unknown) Stat (unknown) (no (unknown) (unknown) Consent Signed: (units (unknown) date) Yes unknown) (unknown) (no (unknown) (unknown) Consent signed: (units (unknown) date) Yes unknown) (unknown) (no (unknown) (unknown) Consultation #1: (units (unknown) date) unknown) (unknown) (no (unknown) (unknown) Consultations (units ( unknown) date) unknown) (unknown) (no (unknown) (unknown) Course (units (unkno wn) date) unknown) (unknown) (no (unknown) (unknown) Creatinine (units (unk nown) date) (0.66-1.25) mg/dL unknown) (unknown) (no (unknown) (unknown) Creatinine 0.80 (units (unknown) date) (0.66-1.25) mg/dL unknown) (unknown) (no (unknown) (unknown) : 1935 (units (unknown) date) Acct:[id number] unknown) (unknown) (no (unknown) (unknown) Date of Service: (units (unknown) date) 10/24/22 unknown) (unknown) (no (unknown) (unknown) Discontinued (units (u nknown) date) Medications unknown) (unknown) (no (unknown) (unknown) Documented By: (units (unknown) date) RL unknown) (unknown) (no (unknown) (unknown) ED Orders (units (unkn own) date) unknown) (unknown) (no (unknown) (unknown) ED Sedation (units (un known) date) Level: Moderate unknown) (Concious) (unknown) (no (unknown) (unknown) EKG-12 Lead (units (un known) date) Routine unknown) (unknown) (no (unknown) (unknown) EKG-12 Lead Stat (units (unknown) date) unknown) (unknown) (no (unknown) (unknown) ENT: Nose (units (unkn own) date) without bleeding, unknown) purulent drainage. Throat without erythema, (unknown) (no (unknown) (unknown) ER Physician: (units ( unknown) date) Khari Walls unknown) D.O. (unknown) (no (unknown) (unknown) EXTREMITIES: No (units (unknown) date) edema or joint unknown) tenderness. (unknown) (no (unknown) (unknown) EYES: Pupils (units (u nknown) date) equal round and unknown) reactive. Extraocular motions intact. No scleral (unknown) (no (unknown) (unknown) Emergency Report (units (unknown) date) unknown) (unknown) (no (unknown) (unknown) Eos # (Auto) (units (u nknown) date) (0-450) /uL unknown) (unknown) (no (unknown) (unknown) Eos # (Auto) 200 (units (unknown) date) (0-450) /uL unknown) (unknown) (no (unknown) (unknown) Eos % (Auto) (units (u nknown) date) (2-4) % unknown) (unknown) (no (unknown) (unknown) Eos % (Auto) 2.1 (units (unknown) date) (2-4) % unknown) (unknown) (no (unknown) (unknown) Estimated GFR > (units (unknown) date) 60 (>60) mL/min unknown) (unknown) (no (unknown) (unknown) Estimated GFR (units ( unknown) date) (>60) mL/min unknown) (unknown) (no (unknown) (unknown) Exam Narrative: (units (unknown) date) unknown) (unknown) (no (unknown) (unknown) Exam (units (unkno wn) date) unknown) (unknown) (no (unknown) (unknown) GASTROINTESTINAL (units (unknown) date) : Abdomen soft, unknown) non-tender, nondistended. (unknown) (no (unknown) (unknown) GASTROINTESTINAL (units (unknown) date) : Denies nausea, unknown) vomiting, abdominal pain, diarrhea, (unknown) (no (unknown) (unknown) GENERAL: Denies (units (unknown) date) chills, fatigue, unknown) malaise, fever, sweats. (unknown) (no (unknown) (unknown) GENERAL: [86] (units ( unknown) date) year old patient unknown) appears stated age. Well-developed patient, in (unknown) (no (unknown) (unknown) : Denies (units (unk nown) date) dysuria, unknown) frequency, incontinence, hematuria, urinary retention. (unknown) (no (unknown) (unknown) General (units (unkno wn) date) unknown) (unknown) (no (unknown) (unknown) Glucose (80-110) (units (unknown) date) mg/dL unknown) (unknown) (no (unknown) (unknown) Glucose 89 (units (unk nown) date) (80-110) mg/dL unknown) (unknown) (no (unknown) (unknown) HEAD: (units (o wn) date) Atraumatic. unknown) Normocephalic. (unknown) (no (unknown) (unknown) HEENT: Denies (units ( unknown) date) sinus pain, ear unknown) pain, sore throat, difficulty swallowing, (unknown) (no (unknown) (unknown) HPI - (units (unkno wn) date) Arrhythmia/Palpit unknown) ations (unknown) (no (unknown) (unknown) HPI narrative: (units (unknown) date) unknown) (unknown) (no (unknown) (unknown) Hct (41-53) % (units ( unknown) date) unknown) (unknown) (no (unknown) (unknown) Hct 45.9 (41-53) (units (unknown) date) % unknown) (unknown) (no (unknown) (unknown) He states he has (units (unknown) date) significant pain unknown) that is worse with range of motion and (unknown) (no (unknown) (unknown) Hgb (13.5-17.5) (units (unknown) date) g/dL unknown) (unknown) (no (unknown) (unknown) Hgb 15.6 (units (unkno wn) date) (13.5-17.5) g/dL unknown) (unknown) (no (unknown) (unknown) History of (units (unk nown) date) Present Illness unknown) (unknown) (no (unknown) (unknown) INR (0.9-1.3) (units ( unknown) date) unknown) (unknown) (no (unknown) (unknown) INR 1.5 H (units (unkn own) date) (0.9-1.3) unknown) (unknown) (no (unknown) (unknown) IV Propofol dose (units (unknown) date) (mg): 40 unknown) (unknown) (no (unknown) (unknown) Indication: (units (un known) date) cardioversion unknown) (unknown) (no (unknown) (unknown) Indication: (units (un known) date) unknown) (unknown) (no (unknown) (unknown) Initial Vital (units ( unknown) date) Signs unknown) (unknown) (no (unknown) (unknown) Initial Vital (units ( unknown) date) Signs: unknown) (unknown) (no (unknown) (unknown) Intraservice (units (u nknown) date) time/total unknown) sedation time (min): 10 (unknown) (no (unknown) (unknown) [facility] (units (unknown) date) [address] unknown) [place] [address] (unknown) (no (unknown) (unknown) Joules used: 120 (units (unknown) date) unknown) (unknown) (no (unknown) (unknown) Lab Data (units (unkno wn) date) unknown) (unknown) (no (unknown) (unknown) Lab Results (units (un known) date) unknown) (unknown) (no (unknown) (unknown) Labs: (units (unkno wn) date) unknown) (unknown) (no (unknown) (unknown) Last Admin: (units (un known) date) 10/24/22 16:53 unknown) Dose: 324 mg (unknown) (no (unknown) (unknown) Last Admin: (units (un known) date) 10/24/22 17:42 unknown) Dose: 40 mg (unknown) (no (unknown) (unknown) Lipase (23-300) (units (unknown) date) U/L unknown) (unknown) (no (unknown) (unknown) Lipase 169 (units (unk nown) date) (23-300) U/L unknown) (unknown) (no (unknown) (unknown) Lipase Stat (units (un known) date) unknown) (unknown) (no (unknown) (unknown) Lymph # (Auto) (units (unknown) date) (7405-3331) /uL unknown) (unknown) (no (unknown) (unknown) Lymph # (Auto) (units (unknown) date) 2300 (1795-6819) unknown) /uL (unknown) (no (unknown) (unknown) Lymph % (Auto) (units (unknown) date) (25-40) % unknown) (unknown) (no (unknown) (unknown) Lymph % (Auto) (units (unknown) date) 22.0 L (25-40) % unknown) (unknown) (no (unknown) (unknown) MCH (26-34) PG (units (unknown) date) unknown) (unknown) (no (unknown) (unknown) MCH 33.9 (26-34) (units (unknown) date) PG unknown) (unknown) (no (unknown) (unknown) MCHC (30-36) % (units (unknown) date) unknown) (unknown) (no (unknown) (unknown) MCHC 34.1 (units (unkn own) date) (30-36) % unknown) (unknown) (no (unknown) (unknown) MCV (80-100) fL (units (unknown) date) unknown) (unknown) (no (unknown) (unknown) MCV 99.4 (units (unkno wn) date) (80-100) fL unknown) (unknown) (no (unknown) (unknown) MDM - (units (unkno wn) date) Arrhythmia/Palpit unknown) ations (unknown) (no (unknown) (unknown) MUSCULOSKELETAL: (units (unknown) date) See HPI unknown) (unknown) (no (unknown) (unknown) Magnesium (units (unkn own) date) (1.6-2.3) mg/dL unknown) (unknown) (no (unknown) (unknown) Magnesium 1.9 (units ( unknown) date) (1.6-2.3) mg/dL unknown) (unknown) (no (unknown) (unknown) Magnesium Stat (units (unknown) date) unknown) (unknown) (no (unknown) (unknown) Mallampati (units (unk nown) date) Airway unknown) Classification: Class II (unknown) (no (unknown) (unknown) Mode of arrival: (units (unknown) date) Family Vehicle unknown) (unknown) (no (unknown) (unknown) Brule # (Auto) (units ( unknown) date) (0-900) /uL unknown) (unknown) (no (unknown) (unknown) Brule # (Auto) (units ( unknown) date) 1100 H (0-900) unknown) /uL (unknown) (no (unknown) (unknown) Brule % (Auto) (units ( unknown) date) (3-14) % unknown) (unknown) (no (unknown) (unknown) Brule % (Auto) (units ( unknown) date) 11.0 (3-14) % unknown) (unknown) (no (unknown) (unknown) NECK: Trachea (units ( unknown) date) midline. Non unknown) tender (unknown) (no (unknown) (unknown) NEURO: AOx3. (units (u nknown) date) unknown) (unknown) (no (unknown) (unknown) NEUROLOGIC: See (units (unknown) date) HPI unknown) (unknown) (no (unknown) (unknown) Narrative (units (unkn own) date) unknown) (unknown) (no (unknown) (unknown) Narrative: (units (unk nown) date) unknown) (unknown) (no (unknown) (unknown) Neut # (Auto) (units ( unknown) date) (1490-4642) /uL unknown) (unknown) (no (unknown) (unknown) Neut # (Auto) (units ( unknown) date) 6500 (1524-6177) unknown) /uL (unknown) (no (unknown) (unknown) Neut % (Auto) (units ( unknown) date) (50-75) % unknown) (unknown) (no (unknown) (unknown) Neut % (Auto) (units ( unknown) date) 63.6 (50-75) % unknown) (unknown) (no (unknown) (unknown) Number of (units (unkn own) date) attempts unknown) (shocks): 1 (unknown) (no (unknown) (unknown) Ordered: (units (unkno wn) date) unknown) (unknown) (no (unknown) (unknown) Orders (units (unkno wn) date) unknown) (unknown) (no (unknown) (unknown) Oxygen Delivery (units (unknown) date) Method 10/24/22 unknown) 16:14 (unknown) (no (unknown) (unknown) Oxygen Delivery (units (unknown) date) Method Room Air unknown) (unknown) (no (unknown) (unknown) Oxygen Delivery (units (unknown) date) Method unknown) (unknown) (no (unknown) (unknown) PSYCHIATRIC: No (units (unknown) date) concerning unknown) psychosocial issues. (unknown) (no (unknown) (unknown) PT (10.1-12.7) (units (unknown) date) SECONDS unknown) (unknown) (no (unknown) (unknown) PT 17.4 H (units (unkn own) date) (10.1-12.7) unknown) SECONDS (unknown) (no (unknown) (unknown) Partial (units (unkno wn) date) Thromboplastin unknown) Time Stat (unknown) (no (unknown) (unknown) Patient History (units (unknown) date) unknown) (unknown) (no (unknown) (unknown) Patient (units (unkno wn) date) Tolerated unknown) Procedure: Well (unknown) (no (unknown) (unknown) Patient (units (unkno wn) date) converted as unknown) noted above, however 2 episodes of nonsustained V-tach in (unknown) (no (unknown) (unknown) Patient: (units (unkno wn) date) Nicolas Neely unknown) MR#: [id number] (unknown) (no (unknown) (unknown) Plt Count (units (unkn own) date) (150-400) X103/uL unknown) (unknown) (no (unknown) (unknown) Plt Count 218 (units ( unknown) date) (150-400) X103/uL unknown) (unknown) (no (unknown) (unknown) Potassium (units (unkn own) date) (3.4-5.1) mmol/L unknown) (unknown) (no (unknown) (unknown) Potassium 3.8 (units ( unknown) date) (3.4-5.1) mmol/L unknown) (unknown) (no (unknown) (unknown) Preparation: (units (u non) date) monitoring and evaluation advisor unknown) applied, pulse oximeter, capnometry used, (unknown) (no (unknown) (unknown) Procedural (units (unk nown) date) Sedation unknown) (unknown) (no (unknown) (unknown) Procedures (units (unk n) date) unknown) (unknown) (no (unknown) (unknown) Propofol (units (unkno wn) date) (Propofol 200 unknown) Mg/20 Ml Vial) 70 mg 1 mg/kg (70 mg) IV NOW ONE (unknown) (no (unknown) (unknown) Prothrombin Time (units (unknown) date) INR Stat unknown) (unknown) (no (unknown) (unknown) Protocol (units (unkno wn) date) unknown) (unknown) (no (unknown) (unknown) Pulse Oximetry (units (unknown) date) 94 unknown) (unknown) (no (unknown) (unknown) Pulse Oximetry (units (unknown) date) 95 95 unknown) (unknown) (no (unknown) (unknown) Pulse Oximetry (units (unknown) date) 95 96 unknown) (unknown) (no (unknown) (unknown) Pulse Oximetry (units (unknown) date) 95 unknown) (unknown) (no (unknown) (unknown) Pulse Oximetry (units (unknown) date) 96 95 unknown) (unknown) (no (unknown) (unknown) Pulse Oximetry (units (unknown) date) 96 97 unknown) (unknown) (no (unknown) (unknown) Pulse Oximetry (units (unknown) date) 96 unknown) (unknown) (no (unknown) (unknown) Pulse Oximetry (units (unknown) date) 97 10/24/22 16:14 unknown) (unknown) (no (unknown) (unknown) Pulse Oximetry (units (unknown) date) 97 97 unknown) (unknown) (no (unknown) (unknown) Pulse Oximetry (units (unknown) date) 98 99 unknown) (unknown) (no (unknown) (unknown) Pulse Oximetry (units (unknown) date) 98 unknown) (unknown) (no (unknown) (unknown) Pulse Rate 133 H (units (unknown) date) unknown) (unknown) (no (unknown) (unknown) Pulse Rate 135 H (units (unknown) date) 10/24/22 16:14 unknown) (unknown) (no (unknown) (unknown) Pulse Rate 135 H (units (unknown) date) 118 H unknown) (unknown) (no (unknown) (unknown) Pulse Rate 135 H (units (unknown) date) 130 H unknown) (unknown) (no (unknown) (unknown) Pulse Rate 136 H (units (unknown) date) 131 H unknown) (unknown) (no (unknown) (unknown) Pulse Rate 138 H (units (unknown) date) 140 H unknown) (unknown) (no (unknown) (unknown) Pulse Rate 143 H (units (unknown) date) 136 H unknown) (unknown) (no (unknown) (unknown) Pulse Rate 85 86 (units (unknown) date) unknown) (unknown) (no (unknown) (unknown) Pulse Rate 85 (units ( unknown) date) unknown) (unknown) (no (unknown) (unknown) Pulse Rate 86 (units ( unknown) date) unknown) (unknown) (no (unknown) (unknown) Pulse Rate 87 84 (units (unknown) date) unknown) (unknown) (no (unknown) (unknown) Pulse Rate 87 89 (units (unknown) date) unknown) (unknown) (no (unknown) (unknown) Pulse Rate 88 89 (units (unknown) date) unknown) (unknown) (no (unknown) (unknown) Pulse Rate 90 85 (units (unknown) date) unknown) (unknown) (no (unknown) (unknown) Pulse Rate 90 (units ( unknown) date) unknown) (unknown) (no (unknown) (unknown) RBC (4.5-5.9) (units ( unknown) date) X106/uL unknown) (unknown) (no (unknown) (unknown) RBC 4.62 (units (unkno wn) date) (4.5-5.9) X106/uL unknown) (unknown) (no (unknown) (unknown) RDW (11.6-14.8) (units (unknown) date) % unknown) (unknown) (no (unknown) (unknown) RDW 14.5 (units (unkno wn) date) (11.6-14.8) % unknown) (unknown) (no (unknown) (unknown) RESPIRATORY: (units (un known) date) Clear to unknown) auscultation. Breath sounds equal bilaterally. No wheezes, (unknown) (no (unknown) (unknown) RESPIRATORY: See (units (unknown) date) HPI unknown) (unknown) (no (unknown) (unknown) Reevaluation #1: (units (unknown) date) unknown) (unknown) (no (unknown) (unknown) Reevaluation(s) (units (unknown) date) unknown) (unknown) (no (unknown) (unknown) Respiratory Rate (units (unknown) date) 11 L unknown) (unknown) (no (unknown) (unknown) Respiratory Rate (units (unknown) date) 13 10 L unknown) (unknown) (no (unknown) (unknown) Respiratory Rate (units (unknown) date) 14 14 unknown) (unknown) (no (unknown) (unknown) Respiratory Rate (units (unknown) date) 14 21 unknown) (unknown) (no (unknown) (unknown) Respiratory Rate (units (unknown) date) 14 unknown) (unknown) (no (unknown) (unknown) Respiratory Rate (units (unknown) date) 15 13 unknown) (unknown) (no (unknown) (unknown) Respiratory Rate (units (unknown) date) 15 16 unknown) (unknown) (no (unknown) (unknown) Respiratory Rate (units (unknown) date) 15 unknown) (unknown) (no (unknown) (unknown) Respiratory Rate (units (unknown) date) 16 17 unknown) (unknown) (no (unknown) (unknown) Respiratory Rate (units (unknown) date) 18 12 unknown) (unknown) (no (unknown) (unknown) Respiratory Rate (units (unknown) date) 18 unknown) (unknown) (no (unknown) (unknown) Respiratory Rate (units (unknown) date) 19 10/24/22 16:14 unknown) (unknown) (no (unknown) (unknown) Respiratory Rate (units (unknown) date) 19 22 unknown) (unknown) (no (unknown) (unknown) Respiratory Rate (units (unknown) date) 20 13 unknown) (unknown) (no (unknown) (unknown) Respiratory Rate (units (unknown) date) 23 15 unknown) (unknown) (no (unknown) (unknown) Result diagrams: (units (unknown) date) unknown) (unknown) (no (unknown) (unknown) Review of (units (unkn own) date) Systems unknown) (unknown) (no (unknown) (unknown) SARS-CoV-2 (PCR) (units (unknown) date) (Negative) unknown) (unknown) (no (unknown) (unknown) SARS-CoV-2 (PCR) (units (unknown) date) Negative unknown) (Negative) (unknown) (no (unknown) (unknown) SKIN: Denies (units (u nknown) date) rash, skin unknown) lesions, or other (unknown) (no (unknown) (unknown) SKIN: No rash or (units (unknown) date) erythema of unknown) visible areas (unknown) (no (unknown) (unknown) Signed By: (units (unk nown) date) unknown) (unknown) (no (unknown) (unknown) Smoking Status: (units (unknown) date) Never smoker unknown) (unknown) (no (unknown) (unknown) Social History (units (unknown) date) unknown) (unknown) (no (unknown) (unknown) Sodium (137-145) (units (unknown) date) mmol/L unknown) (unknown) (no (unknown) (unknown) Sodium 139 (units (unk nown) date) (137-145) mmol/L unknown) (unknown) (no (unknown) (unknown) Source: patient (units (unknown) date) unknown) (unknown) (no (unknown) (unknown) Stability: (units (unk nown) date) Stable unknown) (unknown) (no (unknown) (unknown) Stated (units (unkno wn) date) Complaint: Back unknown) pain (unknown) (no (unknown) (unknown) Stop: 10/24/22 (units (unknown) date) 16:29 unknown) (unknown) (no (unknown) (unknown) Stop: 10/24/22 (units (unknown) date) 17:28 unknown) (unknown) (no (unknown) (unknown) Stop: 10/24/22 (units (unknown) date) 18:31 unknown) (unknown) (no (unknown) (unknown) Temperature 98.2 (units (unknown) date) F 10/24/22 16:14 unknown) (unknown) (no (unknown) (unknown) Temperature 98.2 (units (unknown) date) F unknown) (unknown) (no (unknown) (unknown) Temperature (units (un known) date) unknown) (unknown) (no (unknown) (unknown) Time Seen by (units (u nknown) date) Provider: unknown) 10/24/22 16:34 (unknown) (no (unknown) (unknown) Time out (units (unkno wn) date) performed: Yes unknown) (unknown) (no (unknown) (unknown) Total Bilirubin (units (unknown) date) (0.2-1.3) mg/dL unknown) (unknown) (no (unknown) (unknown) Total Bilirubin (units (unknown) date) 1.1 (0.2-1.3) unknown) mg/dL (unknown) (no (unknown) (unknown) Total Creatine (units (unknown) date) Kinase < 20 L unknown) (55-170) U/L (unknown) (no (unknown) (unknown) Total Creatine (units (unknown) date) Kinase (55-170) unknown) U/L (unknown) (no (unknown) (unknown) Total Protein (units ( unknown) date) (6.3-8.2) g/dL unknown) (unknown) (no (unknown) (unknown) Total Protein (units ( unknown) date) 7.9 (6.3-8.2) unknown) g/dL (unknown) (no (unknown) (unknown) Troponin + CK (units ( unknown) date) Cardiac Panel unknown) Stat (unknown) (no (unknown) (unknown) Troponin I < (units (u nknown) date) 0.012 unknown) (0.01-0.034) ng/mL (unknown) (no (unknown) (unknown) Troponin I (units (unk nown) date) (0.01-0.034) unknown) ng/mL (unknown) (no (unknown) (unknown) Vital Signs - 8 (units (unknown) date) hr unknown) (unknown) (no (unknown) (unknown) Vital Signs (units (un known) date) unknown) (unknown) (no (unknown) (unknown) Vital signs: (units (u nknown) date) unknown) (unknown) (no (unknown) (unknown) WBC (4.5-11.0) (units (unknown) date) X103/uL unknown) (unknown) (no (unknown) (unknown) WBC 10.3 (units (unkno wn) date) (4.5-11.0) unknown) X103/uL (unknown) (no (unknown) (unknown) XR chest 1V Stat (units (unknown) date) unknown) (unknown) (no (unknown) (unknown) [Embedded Image (units (unknown) date) Not Available] unknown) (unknown) (no (unknown) (unknown) alcohol intake (units (unknown) date) frequency: unknown) holidays/special occasions only (unknown) (no (unknown) (unknown) but primarily (units ( unknown) date) due to severe unknown) midline low back pain. He had 2 falls, the most (unknown) (no (unknown) (unknown) constipation, (units ( unknown) date) melena. unknown) (unknown) (no (unknown) (unknown) discussed with (units (unknown) date) Dr. Renee (on unknown) call Cardio), no indication for amio at this (unknown) (no (unknown) (unknown) dizziness. 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 He denies any (unknown) (no (unknown) (unknown) frequently short (units (unknown) date) of breath but unknown) admits that the majority of his day is consume (unknown) (no (unknown) (unknown) icterus. No (units (un known) date) injection or unknown) drainage. (unknown) (no (unknown) (unknown) improves with (units ( unknown) date) rest. He denies unknown) any chest pain but does state that he is (unknown) (no (unknown) (unknown) many years, (units (un known) date) pacemaker unknown) placement for sick sinus syndrome, history of ventricular (unknown) (no (unknown) (unknown) numbness, (units (unkn own) date) tingling or unknown) weakness, denies any loss of control of bowel or bladder. (unknown) (no (unknown) (unknown) obvious (units (unkno wn) date) distress. unknown) Complaining of low back pain (unknown) (no (unknown) (unknown) palpitations, (units ( unknown) date) chest pain or unknown) shortness of breath this. (unknown) (no (unknown) (unknown) rales, or (units (unkn own) date) rhonchi. unknown) (unknown) (no (unknown) (unknown) rapid atrial fib (units (unknown) date) unknown) (unknown) (no (unknown) (unknown) recent of which (units (unknown) date) was in the end of unknown) September and has advanced imaging from our (unknown) (no (unknown) (unknown) rubs. (units (unkno wn) date) unknown) (unknown) (no (unknown) (unknown) supplemental O2 (units (unknown) date) applied, unknown) suction/airway equipment at bedside and IV secured (unknown) (no (unknown) (unknown) tachycardia (units (un known) date) presents for unknown) evaluation episodes of shortness of breath and fatigue (unknown) (no (unknown) (unknown) the aftermath (units ( unknown) date) measuring 8 and unknown) 10 beats a piece, patient did not have any (unknown) (no (unknown) (unknown) time, consult (units ( unknown) date) with Cardio unknown) (unknown) (no (unknown) (unknown) tonsillar (units (unkn own) date) hypertrophy or unknown) exudate. Airway patent. (unknown) (no (unknown) (unknown) with severe pain (units (unknown) date) unknown) Result panel 247 (unknown) (no (unknown) (unknown) (no value) (units (unk nown) date) unknown) (unknown) (no (unknown) (unknown) <Khari Walls, (units (unknown) date) DO - Last Filed: unknown) 10/24/22 20:03> (unknown) (no (unknown) (unknown) <Sharri L (units (unkn own) date) MD Malik - unknown) Last Filed: 10/24/22 20:23> (unknown) (no (unknown) (unknown) 10/24/22 (units (unkno wn) date) 10/24/22 10/24/22 unknown) Range/Units (unknown) (no (unknown) (unknown) 10/24/22 16:28 (units (unknown) date) unknown) (unknown) (no (unknown) (unknown) 10/24/22 16:35 (units (unknown) date) unknown) (unknown) (no (unknown) (unknown) 10/24/22 16:40 (units (unknown) date) unknown) (unknown) (no (unknown) (unknown) 10/24/22 16:55 (units (unknown) date) unknown) (unknown) (no (unknown) (unknown) 10/24/22 17:49 (units (unknown) date) unknown) (unknown) (no (unknown) (unknown) 10/24/22 18:28 (units (unknown) date) unknown) (unknown) (no (unknown) (unknown) 10/24/22 (units (unkno wn) date) Range/Units unknown) (unknown) (no (unknown) (unknown) 10/24/22 (units (unkno wn) date) unknown) (unknown) (no (unknown) (unknown) [id number] (units (unkno wn) date) unknown) (unknown) (no (unknown) (unknown) 12 point review (units (unknown) date) of systems is unknown) negative except for those stated above (unknown) (no (unknown) (unknown) 16:14 10/24/22 (units (unknown) date) unknown) (unknown) (no (unknown) (unknown) 16:40 16:40 (units (un known) date) 16:40 unknown) (unknown) (no (unknown) (unknown) 16:51 10/24/22 (units (unknown) date) unknown) (unknown) (no (unknown) (unknown) 16:52 10/24/22 (units (unknown) date) unknown) (unknown) (no (unknown) (unknown) 16:52 (units (unkno wn) date) unknown) (unknown) (no (unknown) (unknown) 16:55 (units (unkno wn) date) unknown) (unknown) (no (unknown) (unknown) 17:00 10/24/22 (units (unknown) date) unknown) (unknown) (no (unknown) (unknown) 17:00 (units (unkno wn) date) unknown) (unknown) (no (unknown) (unknown) 17:16 10/24/22 (units (unknown) date) unknown) (unknown) (no (unknown) (unknown) 17:20 10/24/22 (units (unknown) date) unknown) (unknown) (no (unknown) (unknown) 17:20 (units (unkno wn) date) unknown) (unknown) (no (unknown) (unknown) 17:30 10/24/22 (units (unknown) date) unknown) (unknown) (no (unknown) (unknown) 17:31 10/24/22 (units (unknown) date) unknown) (unknown) (no (unknown) (unknown) 17:31 (units (unkno wn) date) unknown) (unknown) (no (unknown) (unknown) 17:35 10/24/22 (units (unknown) date) unknown) (unknown) (no (unknown) (unknown) 17:35 (units (unkno wn) date) unknown) (unknown) (no (unknown) (unknown) 17:40 10/24/22 (units (unknown) date) unknown) (unknown) (no (unknown) (unknown) 17:45 10/24/22 (units (unknown) date) unknown) (unknown) (no (unknown) (unknown) 17:51 10/24/22 (units (unknown) date) unknown) (unknown) (no (unknown) (unknown) 17:51 (units (unkno wn) date) unknown) (unknown) (no (unknown) (unknown) 17:55 10/24/22 (units (unknown) date) unknown) (unknown) (no (unknown) (unknown) 17:55 (units (unkno wn) date) unknown) (unknown) (no (unknown) (unknown) 18:00 10/24/22 (units (unknown) date) unknown) (unknown) (no (unknown) (unknown) 18:05 10/24/22 (units (unknown) date) unknown) (unknown) (no (unknown) (unknown) 18:05 (units (unkno wn) date) unknown) (unknown) (no (unknown) (unknown) 18:10 10/24/22 (units (unknown) date) unknown) (unknown) (no (unknown) (unknown) 18:10 (units (unkno wn) date) unknown) (unknown) (no (unknown) (unknown) 18:15 10/24/22 (units (unknown) date) unknown) (unknown) (no (unknown) (unknown) 18:20 10/24/22 (units (unknown) date) unknown) (unknown) (no (unknown) (unknown) 18:20 (units (unkno wn) date) unknown) (unknown) (no (unknown) (unknown) 18:25 10/24/22 (units (unknown) date) unknown) (unknown) (no (unknown) (unknown) 18:25 (units (unkno wn) date) unknown) (unknown) (no (unknown) (unknown) 18:30 10/24/22 (units (unknown) date) unknown) (unknown) (no (unknown) (unknown) 19:00 (units (unkno wn) date) unknown) (unknown) (no (unknown) (unknown) 19:07 10/24/22 (units (unknown) date) unknown) (unknown) (no (unknown) (unknown) 19:10 10/24/22 (units (unknown) date) unknown) (unknown) (no (unknown) (unknown) 19:10 (units (unkno wn) date) unknown) (unknown) (no (unknown) (unknown) 19:15 10/24/22 (units (unknown) date) unknown) (unknown) (no (unknown) (unknown) 19:15 (units (unkno wn) date) unknown) (unknown) (no (unknown) (unknown) 86-year-old male (units (unknown) date) slightly poor unknown) historian with history of AFib on Xarelto for (unknown) (no (unknown) (unknown) ALT (<50) IU/L (units (unknown) date) unknown) (unknown) (no (unknown) (unknown) ALT 27 (<50) (units (u nknown) date) IU/L unknown) (unknown) (no (unknown) (unknown) APTT (26-36) (units (u nknown) date) SECONDS unknown) (unknown) (no (unknown) (unknown) APTT 36 (26-36) (units (unknown) date) SECONDS unknown) (unknown) (no (unknown) (unknown) ASA Class: III (units (unknown) date) unknown) (unknown) (no (unknown) (unknown) AST (17-59) IU/L (units (unknown) date) unknown) (unknown) (no (unknown) (unknown) AST 32 (17-59) (units (unknown) date) IU/L unknown) (unknown) (no (unknown) (unknown) Age/Sex: 86 / M (units (unknown) date) unknown) (unknown) (no (unknown) (unknown) Alkaline (units (unkno wn) date) Phosphatase unknown) (38-126) U/L (unknown) (no (unknown) (unknown) Alkaline (units (unkno wn) date) Phosphatase 108 unknown) (38-126) U/L (unknown) (no (unknown) (unknown) Amiodarone (units (unk nown) date) HCl/Dextrose unknown) (Nexterone) 150 mg in 100 mls @ 600 mls/hr IV NOW ONE; (unknown) (no (unknown) (unknown) Aspirin (Aspirin (units (unknown) date) 81 Mg Chew Tab) unknown) 324 mg PO NOW ONE (unknown) (no (unknown) (unknown) BACK: Severe (units (u nknown) date) midline, unknown) tenderness significantly worse with motion (unknown) (no (unknown) (unknown) BUN (9-20) mg/dL (units (unknown) date) unknown) (unknown) (no (unknown) (unknown) BUN 9 (9-20) (units (u nknown) date) mg/dL unknown) (unknown) (no (unknown) (unknown) BUN/Creatinine (units (unknown) date) Ratio (6-22) unknown) (unknown) (no (unknown) (unknown) BUN/Creatinine (units (unknown) date) Ratio 11.3 (6-22) unknown) (unknown) (no (unknown) (unknown) Baso # (Auto) (units ( unknown) date) (0-100) /uL unknown) (unknown) (no (unknown) (unknown) Baso # (Auto) (units ( unknown) date) 100 (0-100) /uL unknown) (unknown) (no (unknown) (unknown) Baso % (Auto) (units ( unknown) date) (0-2) % unknown) (unknown) (no (unknown) (unknown) Baso % (Auto) (units ( unknown) date) 1.3 (0-2) % unknown) (unknown) (no (unknown) (unknown) Blood Pressure (units (unknown) date) 105/80 unknown) (unknown) (no (unknown) (unknown) Blood Pressure (units (unknown) date) 118/81 unknown) (unknown) (no (unknown) (unknown) Blood Pressure (units (unknown) date) 119/94 H unknown) (unknown) (no (unknown) (unknown) Blood Pressure (units (unknown) date) 120/82 unknown) (unknown) (no (unknown) (unknown) Blood Pressure (units (unknown) date) 121/81 135/82 unknown) (unknown) (no (unknown) (unknown) Blood Pressure (units (unknown) date) 122/83 128/79 unknown) (unknown) (no (unknown) (unknown) Blood Pressure (units (unknown) date) 123/79 121/83 unknown) (unknown) (no (unknown) (unknown) Blood Pressure (units (unknown) date) 125/90 unknown) (unknown) (no (unknown) (unknown) Blood Pressure (units (unknown) date) 129/84 117/83 unknown) (unknown) (no (unknown) (unknown) Blood Pressure (units (unknown) date) 131/75 unknown) (unknown) (no (unknown) (unknown) Blood Pressure (units (unknown) date) 131/85 153/82 H unknown) (unknown) (no (unknown) (unknown) Blood Pressure (units (unknown) date) 134/102 H unknown) (unknown) (no (unknown) (unknown) Blood Pressure (units (unknown) date) 134/87 unknown) (unknown) (no (unknown) (unknown) Blood Pressure (units (unknown) date) 143/81 H 10/24/22 unknown) 16:14 (unknown) (no (unknown) (unknown) Blood Pressure (units (unknown) date) 143/81 H 128/82 unknown) (unknown) (no (unknown) (unknown) Blood Pressure (units (unknown) date) 148/93 H unknown) (unknown) (no (unknown) (unknown) CARDIOVASCULAR: (units (unknown) date) See HPI unknown) (unknown) (no (unknown) (unknown) CARDIOVASCULAR: (units (unknown) date) Tachycardic and unknown) irregular rhythm without murmurs, gallops, or (unknown) (no (unknown) (unknown) CC: Severe back (units (unknown) date) pain unknown) (unknown) (no (unknown) (unknown) CK-MB (CK-2) Rel (units (unknown) date) Index TNP unknown) (unknown) (no (unknown) (unknown) CK-MB (CK-2) Rel (units (unknown) date) Index unknown) (unknown) (no (unknown) (unknown) CK-MB (CK-2) TNP (units (unknown) date) unknown) (unknown) (no (unknown) (unknown) CK-MB (CK-2) (units (u nknown) date) unknown) (unknown) (no (unknown) (unknown) COVID19 -Nasal (units (unknown) date) RAPID/Pre-Proc unknown) Stat (unknown) (no (unknown) (unknown) CT chest abd pel (units (unknown) date) w con Stat unknown) (unknown) (no (unknown) (unknown) Calcium (units (unkno wn) date) (8.4-10.2) mg/dL unknown) (unknown) (no (unknown) (unknown) Calcium 9.0 (units (un known) date) (8.4-10.2) mg/dL unknown) (unknown) (no (unknown) (unknown) Carbon Dioxide (units (unknown) date) (22-32) mmol/L unknown) (unknown) (no (unknown) (unknown) Carbon Dioxide (units (unknown) date) 23 (22-32) mmol/L unknown) (unknown) (no (unknown) (unknown) Cardiac rhythm (units (unknown) date) post-cardioversio unknown) n: NSR (unknown) (no (unknown) (unknown) Cardioversion (units ( unknown) date) unknown) (unknown) (no (unknown) (unknown) Chief Complaint: (units (unknown) date) Arrhythmia/Palpit unknown) ations (unknown) (no (unknown) (unknown) Chloride (units (unkno wn) date) (98-107) mmol/L unknown) (unknown) (no (unknown) (unknown) Chloride 106 (units (u nknown) date) (98-107) mmol/L unknown) (unknown) (no (unknown) (unknown) Complete Blood (units (unknown) date) Count AUTO DIFF unknown) Stat (unknown) (no (unknown) (unknown) Complicating (units (u nknown) date) co-morbidities: 2 unknown) falls with orthopedic complications. Seen by (unknown) (no (unknown) (unknown) Complications: (units (unknown) date) none unknown) (unknown) (no (unknown) (unknown) Comprehensive (units ( unknown) date) Metabolic Panel unknown) Stat (unknown) (no (unknown) (unknown) Consent Signed: (units (unknown) date) Yes unknown) (unknown) (no (unknown) (unknown) Consent signed: (units (unknown) date) Yes unknown) (unknown) (no (unknown) (unknown) Consultation #1: (units (unknown) date) unknown) (unknown) (no (unknown) (unknown) Consultations (units ( unknown) date) unknown) (unknown) (no (unknown) (unknown) Consultations: (units (unknown) date) unknown) (unknown) (no (unknown) (unknown) Corroborating (units ( unknown) date) data: unknown) (unknown) (no (unknown) (unknown) Course (units (unkno wn) date) unknown) (unknown) (no (unknown) (unknown) Creatinine (units (unk nown) date) (0.66-1.25) mg/dL unknown) (unknown) (no (unknown) (unknown) Creatinine 0.80 (units (unknown) date) (0.66-1.25) mg/dL unknown) (unknown) (no (unknown) (unknown) : 1935 (units (unknown) date) Acct:[id number] unknown) (unknown) (no (unknown) (unknown) Data collected (units (unknown) date) from: patient, unknown) (unknown) (no (unknown) (unknown) Date of Service: (units (unknown) date) 10/24/22 unknown) (unknown) (no (unknown) (unknown) Diagnosis: (units (unk nown) date) unknown) (unknown) (no (unknown) (unknown) Differential (units (u nknown) date) considered: unknown) (unknown) (no (unknown) (unknown) Discontinued (units (u nknown) date) Medications unknown) (unknown) (no (unknown) (unknown) Discussion: (units (un known) date) unknown) (unknown) (no (unknown) (unknown) Disposition: see (units (unknown) date) below, along with unknown) detailed discharge instructions that have (unknown) (no (unknown) (unknown) Documented By: (units (unknown) date) RL unknown) (unknown) (no (unknown) (unknown) with (units (un known) date) lumbar and unknown) cervical spine CTs order (unknown) (no (unknown) (unknown) ED Orders (units (unkn own) date) unknown) (unknown) (no (unknown) (unknown) ED Sedation (units (un known) date) Level: Moderate unknown) (Concious) (unknown) (no (unknown) (unknown) EKG-12 Lead (units (un known) date) Routine unknown) (unknown) (no (unknown) (unknown) EKG-12 Lead Stat (units (unknown) date) unknown) (unknown) (no (unknown) (unknown) ENT: Nose (units (unkn own) date) without bleeding, unknown) purulent drainage. Throat without erythema, (unknown) (no (unknown) (unknown) ER Physician: (units ( unknown) date) Khari Walls unknown) D.O. (unknown) (no (unknown) (unknown) EXTREMITIES: No (units (unknown) date) edema or joint unknown) tenderness. (unknown) (no (unknown) (unknown) EYES: Pupils (units (u nknown) date) equal round and unknown) reactive. Extraocular motions intact. No scleral (unknown) (no (unknown) (unknown) Emergency Report (units (unknown) date) unknown) (unknown) (no (unknown) (unknown) Eos # (Auto) (units (u nknown) date) (0-450) /uL unknown) (unknown) (no (unknown) (unknown) Eos # (Auto) 200 (units (unknown) date) (0-450) /uL unknown) (unknown) (no (unknown) (unknown) Eos % (Auto) (units (u nknown) date) (2-4) % unknown) (unknown) (no (unknown) (unknown) Eos % (Auto) 2.1 (units (unknown) date) (2-4) % unknown) (unknown) (no (unknown) (unknown) Estimated GFR > (units (unknown) date) 60 (>60) mL/min unknown) (unknown) (no (unknown) (unknown) Estimated GFR (units ( unknown) date) (>60) mL/min unknown) (unknown) (no (unknown) (unknown) Exam Narrative: (units (unknown) date) unknown) (unknown) (no (unknown) (unknown) Exam documented (units (unknown) date) above, pertinent unknown) findings include: (unknown) (no (unknown) (unknown) Exam (units (unkno wn) date) unknown) (unknown) (no (unknown) (unknown) GASTROINTESTINAL (units (unknown) date) : Abdomen soft, unknown) non-tender, nondistended. (unknown) (no (unknown) (unknown) GASTROINTESTINAL (units (unknown) date) : Denies nausea, unknown) vomiting, abdominal pain, diarrhea, (unknown) (no (unknown) (unknown) GENERAL: Denies (units (unknown) date) chills, fatigue, unknown) malaise, fever, sweats. (unknown) (no (unknown) (unknown) GENERAL: [86] (units ( unknown) date) year old patient unknown) appears stated age. Well-developed patient, in (unknown) (no (unknown) (unknown) : Denies (units (unk nown) date) dysuria, unknown) frequency, incontinence, hematuria, urinary retention. (unknown) (no (unknown) (unknown) General (units (o wn) date) unknown) (unknown) (no (unknown) (unknown) Glucose (80-110) (units (unknown) date) mg/dL unknown) (unknown) (no (unknown) (unknown) Glucose 89 (units (unk n) date) (80-110) mg/dL unknown) (unknown) (no (unknown) (unknown) HEAD: (units ( wn) date) Atraumatic. unknown) Normocephalic. (unknown) (no (unknown) (unknown) HEENT: Denies (units ( unknown) date) sinus pain, ear unknown) pain, sore throat, difficulty swallowing, (unknown) (no (unknown) (unknown) HPI - (units (o wn) date) Arrhythmia/Palpit unknown) ations (unknown) (no (unknown) (unknown) HPI narrative: (units (unknown) date) unknown) (unknown) (no (unknown) (unknown) Hct (41-53) % (units ( unknown) date) unknown) (unknown) (no (unknown) (unknown) Hct 45.9 (41-53) (units (unknown) date) % unknown) (unknown) (no (unknown) (unknown) He states he has (units (unknown) date) significant pain unknown) that is worse with range of motion and (unknown) (no (unknown) (unknown) Hgb (13.5-17.5) (units (unknown) date) g/dL unknown) (unknown) (no (unknown) (unknown) Hgb 15.6 (units (o wn) date) (13.5-17.5) g/dL unknown) (unknown) (no (unknown) (unknown) History of (units (k ) date) Present Illness unknown) (unknown) (no (unknown) (unknown) Hydromorphone (units ( unknown) date) HCl unknown) (Hydromorphone 0.5 Mg Inj) 0.5 mg IV NOW ONE (unknown) (no (unknown) (unknown) INR (0.9-1.3) (units ( unknown) date) unknown) (unknown) (no (unknown) (unknown) INR 1.5 H (units (unkn own) date) (0.9-1.3) unknown) (unknown) (no (unknown) (unknown) IV Propofol dose (units (unknown) date) (mg): 40 unknown) (unknown) (no (unknown) (unknown) Imaging studies (units (unknown) date) independently unknown) reviewed: (unknown) (no (unknown) (unknown) Independently (units ( unknown) date) reviewed EKG as unknown) above (unknown) (no (unknown) (unknown) Indication: (units (un known) date) cardioversion unknown) (unknown) (no (unknown) (unknown) Indication: (units (un known) date) unknown) (unknown) (no (unknown) (unknown) Initial Vital (units ( unknown) date) Signs unknown) (unknown) (no (unknown) (unknown) Initial Vital (units ( unknown) date) Signs: unknown) (unknown) (no (unknown) (unknown) Intraservice (units (u nknown) date) time/total unknown) sedation time (min): 10 (unknown) (no (unknown) (unknown) [facility] (units (unknown) date) [address] unknown) [place] [address] (unknown) (no (unknown) (unknown) Joules used: 120 (units (unknown) date) unknown) (unknown) (no (unknown) (unknown) Lab Data (units (unkno wn) date) unknown) (unknown) (no (unknown) (unknown) Lab Results (units (un known) date) unknown) (unknown) (no (unknown) (unknown) Lab Test results (units (unknown) date) independently unknown) reviewed as above. Pertinent findings: (unknown) (no (unknown) (unknown) Labs: (units (unkno wn) date) unknown) (unknown) (no (unknown) (unknown) Last Admin: (units (un known) date) 10/24/22 16:53 unknown) Dose: 324 mg (unknown) (no (unknown) (unknown) Last Admin: (units (un known) date) 10/24/22 17:42 unknown) Dose: 40 mg (unknown) (no (unknown) (unknown) Lipase (23-300) (units (unknown) date) U/L unknown) (unknown) (no (unknown) (unknown) Lipase 169 (units (unk nown) date) (23-300) U/L unknown) (unknown) (no (unknown) (unknown) Lipase Stat (units (un known) date) unknown) (unknown) (no (unknown) (unknown) Lymph # (Auto) (units (unknown) date) (9244-7348) /uL unknown) (unknown) (no (unknown) (unknown) Lymph # (Auto) (units (unknown) date) 2300 (0082-6107) unknown) /uL (unknown) (no (unknown) (unknown) Lymph % (Auto) (units (unknown) date) (25-40) % unknown) (unknown) (no (unknown) (unknown) Lymph % (Auto) (units (unknown) date) 22.0 L (25-40) % unknown) (unknown) (no (unknown) (unknown) MCH (26-34) PG (units (unknown) date) unknown) (unknown) (no (unknown) (unknown) MCH 33.9 (26-34) (units (unknown) date) PG unknown) (unknown) (no (unknown) (unknown) MCHC (30-36) % (units (unknown) date) unknown) (unknown) (no (unknown) (unknown) MCHC 34.1 (units (unkn own) date) (30-36) % unknown) (unknown) (no (unknown) (unknown) MCV (80-100) fL (units (unknown) date) unknown) (unknown) (no (unknown) (unknown) MCV 99.4 (units (unkno wn) date) (80-100) fL unknown) (unknown) (no (unknown) (unknown) MDM - (units (unkno wn) date) Arrhythmia/Palpit unknown) ations (unknown) (no (unknown) (unknown) MDM Narrative (units ( unknown) date) unknown) (unknown) (no (unknown) (unknown) MUSCULOSKELETAL: (units (unknown) date) See HPI unknown) (unknown) (no (unknown) (unknown) Magnesium (units (unkn own) date) (1.6-2.3) mg/dL unknown) (unknown) (no (unknown) (unknown) Magnesium 1.9 (units ( unknown) date) (1.6-2.3) mg/dL unknown) (unknown) (no (unknown) (unknown) Magnesium Stat (units (unknown) date) unknown) (unknown) (no (unknown) (unknown) Mallampati (units (unk nown) date) Airway unknown) Classification: Class II (unknown) (no (unknown) (unknown) Medical decision (units (unknown) date) making narrative: unknown) (unknown) (no (unknown) (unknown) Medical records (units (unknown) date) reviewed: unknown) (unknown) (no (unknown) (unknown) Mode of arrival: (units (unknown) date) Family Vehicle unknown) (unknown) (no (unknown) (unknown) Brule # (Auto) (units ( unknown) date) (0-900) /uL unknown) (unknown) (no (unknown) (unknown) Brule # (Auto) (units ( unknown) date) 1100 H (0-900) unknown) /uL (unknown) (no (unknown) (unknown) Brule % (Auto) (units ( unknown) date) (3-14) % unknown) (unknown) (no (unknown) (unknown) Brule % (Auto) (units ( unknown) date) 11.0 (3-14) % unknown) (unknown) (no (unknown) (unknown) NECK: [place] (units ( unknown) date) midline. Non unknown) tender (unknown) (no (unknown) (unknown) NEURO: AOx3. (units (u nknown) date) unknown) (unknown) (no (unknown) (unknown) NEUROLOGIC: See (units (unknown) date) HPI unknown) (unknown) (no (unknown) (unknown) Narrative (units (unkn own) date) unknown) (unknown) (no (unknown) (unknown) Narrative: (units (unk nown) date) unknown) (unknown) (no (unknown) (unknown) Neut # (Auto) (units ( unknown) date) (9828-3636) /uL unknown) (unknown) (no (unknown) (unknown) Neut # (Auto) (units ( unknown) date) 6500 (9815-0791) unknown) /uL (unknown) (no (unknown) (unknown) Neut % (Auto) (units ( unknown) date) (50-75) % unknown) (unknown) (no (unknown) (unknown) Neut % (Auto) (units ( unknown) date) 63.6 (50-75) % unknown) (unknown) (no (unknown) (unknown) Number of (units (unkn own) date) attempts unknown) (shocks): 1 (unknown) (no (unknown) (unknown) Ordered: (units (unkno wn) date) unknown) (unknown) (no (unknown) (unknown) Orders (units (unkno wn) date) unknown) (unknown) (no (unknown) (unknown) Oxygen Delivery (units (unknown) date) Method 10/24/22 unknown) 16:14 (unknown) (no (unknown) (unknown) Oxygen Delivery (units (unknown) date) Method Room Air unknown) (unknown) (no (unknown) (unknown) Oxygen Delivery (units (unknown) date) Method unknown) (unknown) (no (unknown) (unknown) PSYCHIATRIC: No (units (unknown) date) concerning unknown) psychosocial issues. (unknown) (no (unknown) (unknown) PT (10.1-12.7) (units (unknown) date) SECONDS unknown) (unknown) (no (unknown) (unknown) PT 17.4 H (units (unkn own) date) (10.1-12.7) unknown) SECONDS (unknown) (no (unknown) (unknown) Partial (units (unkno wn) date) Thromboplastin unknown) Time Stat (unknown) (no (unknown) (unknown) Patient History (units (unknown) date) unknown) (unknown) (no (unknown) (unknown) Patient (units (unkno wn) date) Tolerated unknown) Procedure: Well (unknown) (no (unknown) (unknown) Patient (units (unkno wn) date) converted as unknown) noted above, however 2 episodes of nonsustained V-tach in (unknown) (no (unknown) (unknown) Patient: (units (unkno wn) date) Nicolas Neely unknown) MR#: [id number] (unknown) (no (unknown) (unknown) Plt Count (units (unkn own) date) (150-400) X103/uL unknown) (unknown) (no (unknown) (unknown) Plt Count 218 (units ( unknown) date) (150-400) X103/uL unknown) (unknown) (no (unknown) (unknown) Potassium (units (unkn own) date) (3.4-5.1) mmol/L unknown) (unknown) (no (unknown) (unknown) Potassium 3.8 (units ( unknown) date) (3.4-5.1) mmol/L unknown) (unknown) (no (unknown) (unknown) Preparation: (units (u nknown) date) monitoring and evaluation advisor unknown) applied, pulse oximeter, capnometry used, (unknown) (no (unknown) (unknown) Procedural (units (unk nown) date) Sedation unknown) (unknown) (no (unknown) (unknown) Procedures (units (unk nown) date) unknown) (unknown) (no (unknown) (unknown) Propofol (units (unkno wn) date) (Propofol 200 unknown) Mg/20 Ml Vial) 70 mg 1 mg/kg (70 mg) IV NOW ONE (unknown) (no (unknown) (unknown) Prothrombin Time (units (unknown) date) INR Stat unknown) (unknown) (no (unknown) (unknown) Protocol (units (unkno wn) date) unknown) (unknown) (no (unknown) (unknown) Pulse Oximetry (units (unknown) date) 94 unknown) (unknown) (no (unknown) (unknown) Pulse Oximetry (units (unknown) date) 95 95 unknown) (unknown) (no (unknown) (unknown) Pulse Oximetry (units (unknown) date) 95 96 unknown) (unknown) (no (unknown) (unknown) Pulse Oximetry (units (unknown) date) 95 unknown) (unknown) (no (unknown) (unknown) Pulse Oximetry (units (unknown) date) 96 95 unknown) (unknown) (no (unknown) (unknown) Pulse Oximetry (units (unknown) date) 96 97 unknown) (unknown) (no (unknown) (unknown) Pulse Oximetry (units (unknown) date) 96 unknown) (unknown) (no (unknown) (unknown) Pulse Oximetry (units (unknown) date) 97 10/24/22 16:14 unknown) (unknown) (no (unknown) (unknown) Pulse Oximetry (units (unknown) date) 97 97 unknown) (unknown) (no (unknown) (unknown) Pulse Oximetry (units (unknown) date) 98 99 unknown) (unknown) (no (unknown) (unknown) Pulse Oximetry (units (unknown) date) 98 unknown) (unknown) (no (unknown) (unknown) Pulse Rate 133 H (units (unknown) date) unknown) (unknown) (no (unknown) (unknown) Pulse Rate 135 H (units (unknown) date) 10/24/22 16:14 unknown) (unknown) (no (unknown) (unknown) Pulse Rate 135 H (units (unknown) date) 118 H unknown) (unknown) (no (unknown) (unknown) Pulse Rate 135 H (units (unknown) date) 130 H unknown) (unknown) (no (unknown) (unknown) Pulse Rate 136 H (units (unknown) date) 131 H unknown) (unknown) (no (unknown) (unknown) Pulse Rate 138 H (units (unknown) date) 140 H unknown) (unknown) (no (unknown) (unknown) Pulse Rate 143 H (units (unknown) date) 136 H unknown) (unknown) (no (unknown) (unknown) Pulse Rate 85 86 (units (unknown) date) unknown) (unknown) (no (unknown) (unknown) Pulse Rate 85 (units ( unknown) date) unknown) (unknown) (no (unknown) (unknown) Pulse Rate 86 (units ( unknown) date) unknown) (unknown) (no (unknown) (unknown) Pulse Rate 87 84 (units (unknown) date) unknown) (unknown) (no (unknown) (unknown) Pulse Rate 87 89 (units (unknown) date) unknown) (unknown) (no (unknown) (unknown) Pulse Rate 88 89 (units (unknown) date) unknown) (unknown) (no (unknown) (unknown) Pulse Rate 90 85 (units (unknown) date) unknown) (unknown) (no (unknown) (unknown) Pulse Rate 90 (units ( unknown) date) unknown) (unknown) (no (unknown) (unknown) RBC (4.5-5.9) (units ( unknown) date) X106/uL unknown) (unknown) (no (unknown) (unknown) RBC 4.62 (units (unkno wn) date) (4.5-5.9) X106/uL unknown) (unknown) (no (unknown) (unknown) RDW (11.6-14.8) (units (unknown) date) % unknown) (unknown) (no (unknown) (unknown) RDW 14.5 (units (unkno wn) date) (11.6-14.8) % unknown) (unknown) (no (unknown) (unknown) RESPIRATORY: (units (un known) date) Clear to unknown) auscultation. Breath sounds equal bilaterally. No wheezes, (unknown) (no (unknown) (unknown) RESPIRATORY: See (units (unknown) date) HPI unknown) (unknown) (no (unknown) (unknown) Re-evaluations: (units (unknown) date) unknown) (unknown) (no (unknown) (unknown) Reevaluation #1: (units (unknown) date) unknown) (unknown) (no (unknown) (unknown) Reevaluation(s) (units (unknown) date) unknown) (unknown) (no (unknown) (unknown) Respiratory Rate (units (unknown) date) 11 L unknown) (unknown) (no (unknown) (unknown) Respiratory Rate (units (unknown) date) 13 10 L unknown) (unknown) (no (unknown) (unknown) Respiratory Rate (units (unknown) date) 14 14 unknown) (unknown) (no (unknown) (unknown) Respiratory Rate (units (unknown) date) 14 21 unknown) (unknown) (no (unknown) (unknown) Respiratory Rate (units (unknown) date) 14 unknown) (unknown) (no (unknown) (unknown) Respiratory Rate (units (unknown) date) 15 13 unknown) (unknown) (no (unknown) (unknown) Respiratory Rate (units (unknown) date) 15 16 unknown) (unknown) (no (unknown) (unknown) Respiratory Rate (units (unknown) date) 15 unknown) (unknown) (no (unknown) (unknown) Respiratory Rate (units (unknown) date) 16 17 unknown) (unknown) (no (unknown) (unknown) Respiratory Rate (units (unknown) date) 18 12 unknown) (unknown) (no (unknown) (unknown) Respiratory Rate (units (unknown) date) 18 unknown) (unknown) (no (unknown) (unknown) Respiratory Rate (units (unknown) date) 19 10/24/22 16:14 unknown) (unknown) (no (unknown) (unknown) Respiratory Rate (units (unknown) date) 19 22 unknown) (unknown) (no (unknown) (unknown) Respiratory Rate (units (unknown) date) 20 13 unknown) (unknown) (no (unknown) (unknown) Respiratory Rate (units (unknown) date) 23 15 unknown) (unknown) (no (unknown) (unknown) Result diagrams: (units (unknown) date) unknown) (unknown) (no (unknown) (unknown) Review of (units (unkn own) date) Systems unknown) (unknown) (no (unknown) (unknown) SARS-CoV-2 (PCR) (units (unknown) date) (Negative) unknown) (unknown) (no (unknown) (unknown) SARS-CoV-2 (PCR) (units (unknown) date) Negative unknown) (Negative) (unknown) (no (unknown) (unknown) SKIN: Denies (units (u nknown) date) rash, skin unknown) lesions, or other (unknown) (no (unknown) (unknown) SKIN: No rash or (units (unknown) date) erythema of unknown) visible areas (unknown) (no (unknown) (unknown) Signed By: (units (unk nown) date) unknown) (unknown) (no (unknown) (unknown) Smoking Status: (units (unknown) date) Never smoker unknown) (unknown) (no (unknown) (unknown) Social (units (unkno wn) date) Determinants of unknown) Health that impact treatment or disposition: age, (unknown) (no (unknown) (unknown) Social History (units (unknown) date) unknown) (unknown) (no (unknown) (unknown) Sodium (137-145) (units (unknown) date) mmol/L unknown) (unknown) (no (unknown) (unknown) Sodium 139 (units (unk nown) date) (137-145) mmol/L unknown) (unknown) (no (unknown) (unknown) Source: patient (units (unknown) date) unknown) (unknown) (no (unknown) (unknown) Stability: (units (unk nown) date) Stable unknown) (unknown) (no (unknown) (unknown) Stated (units (unkno wn) date) Complaint: Back unknown) pain (unknown) (no (unknown) (unknown) Stop: 10/24/22 (units (unknown) date) 16:29 unknown) (unknown) (no (unknown) (unknown) Stop: 10/24/22 (units (unknown) date) 17:28 unknown) (unknown) (no (unknown) (unknown) Stop: 10/24/22 (units (unknown) date) 18:31 unknown) (unknown) (no (unknown) (unknown) Stop: 10/24/22 (units (unknown) date) 20:13 unknown) (unknown) (no (unknown) (unknown) Temperature 98.2 (units (unknown) date) F 10/24/22 16:14 unknown) (unknown) (no (unknown) (unknown) Temperature 98.2 (units (unknown) date) F unknown) (unknown) (no (unknown) (unknown) Temperature (units (un known) date) unknown) (unknown) (no (unknown) (unknown) Time Seen by (units (u nknown) date) Provider: unknown) 10/24/22 16:34 (unknown) (no (unknown) (unknown) Time out (units (unkno wn) date) performed: Yes unknown) (unknown) (no (unknown) (unknown) Total Bilirubin (units (unknown) date) (0.2-1.3) mg/dL unknown) (unknown) (no (unknown) (unknown) Total Bilirubin (units (unknown) date) 1.1 (0.2-1.3) unknown) mg/dL (unknown) (no (unknown) (unknown) Total Creatine (units (unknown) date) Kinase < 20 L unknown) (55-170) U/L (unknown) (no (unknown) (unknown) Total Creatine (units (unknown) date) Kinase (55-170) unknown) U/L (unknown) (no (unknown) (unknown) Total Protein (units ( unknown) date) (6.3-8.2) g/dL unknown) (unknown) (no (unknown) (unknown) Total Protein (units ( unknown) date) 7.9 (6.3-8.2) unknown) g/dL (unknown) (no (unknown) (unknown) Treatment and (units ( unknown) date) disposition unknown) (unknown) (no (unknown) (unknown) Treatments: (units (un known) date) unknown) (unknown) (no (unknown) (unknown) Troponin + CK (units ( unknown) date) Cardiac Panel unknown) Stat (unknown) (no (unknown) (unknown) Troponin I < (units (u nknown) date) 0.012 unknown) (0.01-0.034) ng/mL (unknown) (no (unknown) (unknown) Troponin I (units (unk nown) date) (0.01-0.034) unknown) ng/mL (unknown) (no (unknown) (unknown) Vital Signs - 8 (units (unknown) date) hr unknown) (unknown) (no (unknown) (unknown) Vital Signs (units (un known) date) unknown) (unknown) (no (unknown) (unknown) Vital signs: (units (u nknown) date) unknown) (unknown) (no (unknown) (unknown) WBC (4.5-11.0) (units (unknown) date) X103/uL unknown) (unknown) (no (unknown) (unknown) WBC 10.3 (units (unkno wn) date) (4.5-11.0) unknown) X103/uL (unknown) (no (unknown) (unknown) XR chest 1V Stat (units (unknown) date) unknown) (unknown) (no (unknown) (unknown) [Embedded Image (units (unknown) date) Not Available] unknown) (unknown) (no (unknown) (unknown) additional (units (unk nown) date) outpatient follow unknown) up (unknown) (no (unknown) (unknown) alcohol intake (units (unknown) date) frequency: unknown) holidays/special occasions only (unknown) (no (unknown) (unknown) been reviewed (units ( unknown) date) with patient as unknown) well as indications for ED re-evaluation and (unknown) (no (unknown) (unknown) but primarily (units ( unknown) date) due to severe unknown) midline low back pain. He had 2 falls, the most (unknown) (no (unknown) (unknown) constipation, (units ( unknown) date) melena. unknown) (unknown) (no (unknown) (unknown) discussed with (units (unknown) date) Dr. Renee (on unknown) call Cardio), no indication for amio at this (unknown) (no (unknown) (unknown) dizziness. 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 He denies any (unknown) (no (unknown) (unknown) frequently short (units (unknown) date) of breath but unknown) admits that the majority of his day is consume (unknown) (no (unknown) (unknown) icterus. No (units (un known) date) injection or unknown) drainage. (unknown) (no (unknown) (unknown) improves with (units ( unknown) date) rest. He denies unknown) any chest pain but does state that he is (unknown) (no (unknown) (unknown) inability to (units (u nknown) date) function at home unknown) due to pain (unknown) (no (unknown) (unknown) many years, (units (un known) date) pacemaker unknown) placement for sick sinus syndrome, history of ventricular (unknown) (no (unknown) (unknown) numbness, (units (unkn own) date) tingling or unknown) weakness, denies any loss of control of bowel or bladder. (unknown) (no (unknown) (unknown) obvious (units (unkno wn) date) distress. unknown) Complaining of low back pain (unknown) (no (unknown) (unknown) palpitations, (units ( unknown) date) chest pain or unknown) shortness of breath this. (unknown) (no (unknown) (unknown) rales, or (units (unkn own) date) rhonchi. unknown) (unknown) (no (unknown) (unknown) rapid atrial fib (units (unknown) date) unknown) (unknown) (no (unknown) (unknown) recent of which (units (unknown) date) was in the end of unknown) September and has advanced imaging from our (unknown) (no (unknown) (unknown) rubs. (units (unkno wn) date) unknown) (unknown) (no (unknown) (unknown) supplemental O2 (units (unknown) date) applied, unknown) suction/airway equipment at bedside and IV secured (unknown) (no (unknown) (unknown) tachycardia (units (un known) date) presents for unknown) evaluation episodes of shortness of breath and fatigue (unknown) (no (unknown) (unknown) the aftermath (units ( unknown) date) measuring 8 and unknown) 10 beats a piece, patient did not have any (unknown) (no (unknown) (unknown) time, consult (units ( unknown) date) with [facility] unknown) (unknown) (no (unknown) (unknown) tonsillar (units (unkn own) date) hypertrophy or unknown) exudate. Airway patent. (unknown) (no (unknown) (unknown) with severe pain (units (unknown) date) unknown) Result panel 248 (unknown) (no (unknown) (unknown) (no value) (units (unk nown) date) unknown) (unknown) (no (unknown) (unknown) <Khari Walls, (units (unknown) date) DO - Last Filed: unknown) 10/24/22 20:03> (unknown) (no (unknown) (unknown) <Sharri Allan (units (unkn own) date) MD Malik - unknown) Last Filed: 10/24/22 20:59> (unknown) (no (unknown) (unknown) 10/24/22 (units (unkno wn) date) 10/24/22 10/24/22 unknown) Range/Units (unknown) (no (unknown) (unknown) 10/24/22 16:28 (units (unknown) date) unknown) (unknown) (no (unknown) (unknown) 10/24/22 16:35 (units (unknown) date) unknown) (unknown) (no (unknown) (unknown) 10/24/22 16:40 (units (unknown) date) unknown) (unknown) (no (unknown) (unknown) 10/24/22 16:55 (units (unknown) date) unknown) (unknown) (no (unknown) (unknown) 10/24/22 17:49 (units (unknown) date) unknown) (unknown) (no (unknown) (unknown) 10/24/22 18:28 (units (unknown) date) unknown) (unknown) (no (unknown) (unknown) 10/24/22 (units (unkno wn) date) Range/Units unknown) (unknown) (no (unknown) (unknown) 10/24/22 (units (unkno wn) date) unknown) (unknown) (no (unknown) (unknown) [id number] (units (unkno wn) date) unknown) (unknown) (no (unknown) (unknown) 1. 2 falls in (units ( unknown) date) september with unknown) orthopedic complications. No additional details (unknown) (no (unknown) (unknown) 12 point review (units (unknown) date) of systems is unknown) negative except for those stated above (unknown) (no (unknown) (unknown) 1635 (units (unkno wn) date) unknown) (unknown) (no (unknown) (unknown) 16:14 10/24/22 (units (unknown) date) unknown) (unknown) (no (unknown) (unknown) 16:40 16:40 (units (un known) date) 16:40 unknown) (unknown) (no (unknown) (unknown) 16:51 10/24/22 (units (unknown) date) unknown) (unknown) (no (unknown) (unknown) 16:52 10/24/22 (units (unknown) date) unknown) (unknown) (no (unknown) (unknown) 16:52 (units (unkno wn) date) unknown) (unknown) (no (unknown) (unknown) 16:55 (units (unkno wn) date) unknown) (unknown) (no (unknown) (unknown) 17:00 10/24/22 (units (unknown) date) unknown) (unknown) (no (unknown) (unknown) 17:00 (units (unkno wn) date) unknown) (unknown) (no (unknown) (unknown) 17:16 10/24/22 (units (unknown) date) unknown) (unknown) (no (unknown) (unknown) 17:20 10/24/22 (units (unknown) date) unknown) (unknown) (no (unknown) (unknown) 17:20 (units (unkno wn) date) unknown) (unknown) (no (unknown) (unknown) 17:30 10/24/22 (units (unknown) date) unknown) (unknown) (no (unknown) (unknown) 17:31 10/24/22 (units (unknown) date) unknown) (unknown) (no (unknown) (unknown) 17:31 (units (unkno wn) date) unknown) (unknown) (no (unknown) (unknown) 17:35 10/24/22 (units (unknown) date) unknown) (unknown) (no (unknown) (unknown) 17:35 (units (unkno wn) date) unknown) (unknown) (no (unknown) (unknown) 17:40 10/24/22 (units (unknown) date) unknown) (unknown) (no (unknown) (unknown) 17:45 10/24/22 (units (unknown) date) unknown) (unknown) (no (unknown) (unknown) 17:51 10/24/22 (units (unknown) date) unknown) (unknown) (no (unknown) (unknown) 17:51 (units (unkno wn) date) unknown) (unknown) (no (unknown) (unknown) 17:55 10/24/22 (units (unknown) date) unknown) (unknown) (no (unknown) (unknown) 17:55 (units (unkno wn) date) unknown) (unknown) (no (unknown) (unknown) 18:00 10/24/22 (units (unknown) date) unknown) (unknown) (no (unknown) (unknown) 18:05 10/24/22 (units (unknown) date) unknown) (unknown) (no (unknown) (unknown) 18:05 (units (unkno wn) date) unknown) (unknown) (no (unknown) (unknown) 18:10 10/24/22 (units (unknown) date) unknown) (unknown) (no (unknown) (unknown) 18:10 (units (unkno wn) date) unknown) (unknown) (no (unknown) (unknown) 18:15 10/24/22 (units (unknown) date) unknown) (unknown) (no (unknown) (unknown) 18:20 10/24/22 (units (unknown) date) unknown) (unknown) (no (unknown) (unknown) 18:20 (units (unkno wn) date) unknown) (unknown) (no (unknown) (unknown) 18:25 10/24/22 (units (unknown) date) unknown) (unknown) (no (unknown) (unknown) 18:25 (units (unkno wn) date) unknown) (unknown) (no (unknown) (unknown) 18:30 10/24/22 (units (unknown) date) unknown) (unknown) (no (unknown) (unknown) 19:00 (units (unkno wn) date) unknown) (unknown) (no (unknown) (unknown) 19:07 10/24/22 (units (unknown) date) unknown) (unknown) (no (unknown) (unknown) 19:10 10/24/22 (units (unknown) date) unknown) (unknown) (no (unknown) (unknown) 19:10 (units (unkno wn) date) unknown) (unknown) (no (unknown) (unknown) 19:15 10/24/22 (units (unknown) date) unknown) (unknown) (no (unknown) (unknown) 19:15 (units (unkno wn) date) unknown) (unknown) (no (unknown) (unknown) 2. 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 (units (unkno wn) date) unknown) (unknown) (no (unknown) (unknown) [phone] who (units (unknown) date) has been helping. unknown) His son lives in [place] and is also involved (unknown) (no (unknown) (unknown) 86-year-old male (units (unknown) date) slightly poor unknown) historian with history of AFib on Xarelto for (unknown) (no (unknown) (unknown) ALT (<50) IU/L (units (unknown) date) unknown) (unknown) (no (unknown) (unknown) ALT 27 (<50) (units (u nknown) date) IU/L unknown) (unknown) (no (unknown) (unknown) APTT (26-36) (units (u nknown) date) SECONDS unknown) (unknown) (no (unknown) (unknown) APTT 36 (26-36) (units (unknown) date) SECONDS unknown) (unknown) (no (unknown) (unknown) ASA Class: III (units (unknown) date) unknown) (unknown) (no (unknown) (unknown) AST (17-59) IU/L (units (unknown) date) unknown) (unknown) (no (unknown) (unknown) AST 32 (17-59) (units (unknown) date) IU/L unknown) (unknown) (no (unknown) (unknown) Age/Sex: 86 / M (units (unknown) date) unknown) (unknown) (no (unknown) (unknown) Alkaline (units (unkno wn) date) Phosphatase unknown) (38-126) U/L (unknown) (no (unknown) (unknown) Alkaline (units (unkno wn) date) Phosphatase 108 unknown) (38-126) U/L (unknown) (no (unknown) (unknown) Amiodarone (units (unk nown) date) HCl/Dextrose unknown) (Nexterone) 150 mg in 100 mls @ 600 mls/hr IV NOW ONE; (unknown) (no (unknown) (unknown) Aspirin (Aspirin (units (unknown) date) 81 Mg Chew Tab) unknown) 324 mg PO NOW ONE (unknown) (no (unknown) (unknown) Atrial (units (unkno wn) date) fibrillation with unknown) rapid ventricular response at 136 (unknown) (no (unknown) (unknown) BACK: Severe (units (u nknown) date) midline, unknown) tenderness significantly worse with motion (unknown) (no (unknown) (unknown) BUN (9-20) mg/dL (units (unknown) date) unknown) (unknown) (no (unknown) (unknown) BUN 9 (9-20) (units (u nknown) date) mg/dL unknown) (unknown) (no (unknown) (unknown) BUN/Creatinine (units (unknown) date) Ratio (6-22) unknown) (unknown) (no (unknown) (unknown) BUN/Creatinine (units (unknown) date) Ratio 11.3 (6-22) unknown) (unknown) (no (unknown) (unknown) Baso # (Auto) (units ( unknown) date) (0-100) /uL unknown) (unknown) (no (unknown) (unknown) Baso # (Auto) (units ( unknown) date) 100 (0-100) /uL unknown) (unknown) (no (unknown) (unknown) Baso % (Auto) (units ( unknown) date) (0-2) % unknown) (unknown) (no (unknown) (unknown) Baso % (Auto) (units ( unknown) date) 1.3 (0-2) % unknown) (unknown) (no (unknown) (unknown) Blood Pressure (units (unknown) date) 105/80 unknown) (unknown) (no (unknown) (unknown) Blood Pressure (units (unknown) date) 118/81 unknown) (unknown) (no (unknown) (unknown) Blood Pressure (units (unknown) date) 119/94 H unknown) (unknown) (no (unknown) (unknown) Blood Pressure (units (unknown) date) 120/82 unknown) (unknown) (no (unknown) (unknown) Blood Pressure (units (unknown) date) 121/81 135/82 unknown) (unknown) (no (unknown) (unknown) Blood Pressure (units (unknown) date) 122/83 128/79 unknown) (unknown) (no (unknown) (unknown) Blood Pressure (units (unknown) date) 123/79 121/83 unknown) (unknown) (no (unknown) (unknown) Blood Pressure (units (unknown) date) 125/90 unknown) (unknown) (no (unknown) (unknown) Blood Pressure (units (unknown) date) 129/84 117/83 unknown) (unknown) (no (unknown) (unknown) Blood Pressure (units (unknown) date) 131/75 unknown) (unknown) (no (unknown) (unknown) Blood Pressure (units (unknown) date) 131/85 153/82 H unknown) (unknown) (no (unknown) (unknown) Blood Pressure (units (unknown) date) 134/102 H unknown) (unknown) (no (unknown) (unknown) Blood Pressure (units (unknown) date) 134/87 unknown) (unknown) (no (unknown) (unknown) Blood Pressure (units (unknown) date) 143/81 H 10/24/22 unknown) 16:14 (unknown) (no (unknown) (unknown) Blood Pressure (units (unknown) date) 143/81 H 128/82 unknown) (unknown) (no (unknown) (unknown) Blood Pressure (units (unknown) date) 148/93 H unknown) (unknown) (no (unknown) (unknown) CARDIOVASCULAR: (units (unknown) date) See HPI unknown) (unknown) (no (unknown) (unknown) CARDIOVASCULAR: (units (unknown) date) Tachycardic and unknown) irregular rhythm without murmurs, gallops, or (unknown) (no (unknown) (unknown) CBC is (units (unkno wn) date) unremarkable unknown) (unknown) (no (unknown) (unknown) CC: Severe back (units (unknown) date) pain unknown) (unknown) (no (unknown) (unknown) CK-MB (CK-2) Rel (units (unknown) date) Index TNP unknown) (unknown) (no (unknown) (unknown) CK-MB (CK-2) Rel (units (unknown) date) Index unknown) (unknown) (no (unknown) (unknown) CK-MB (CK-2) TNP (units (unknown) date) unknown) (unknown) (no (unknown) (unknown) CK-MB (CK-2) (units (u nknown) date) unknown) (unknown) (no (unknown) (unknown) COVID serology (units (unknown) date) is negative unknown) (unknown) (no (unknown) (unknown) COVID19 -Nasal (units (unknown) date) RAPID/Pre-Proc unknown) Stat (unknown) (no (unknown) (unknown) CT chest abd pel (units (unknown) date) w con Stat unknown) (unknown) (no (unknown) (unknown) CTs ordered. (units (u nknown) date) Patient said he unknown) was given injections that were somewhat helpful (unknown) (no (unknown) (unknown) Calcium (units (unkno wn) date) (8.4-10.2) mg/dL unknown) (unknown) (no (unknown) (unknown) Calcium 9.0 (units (un known) date) (8.4-10.2) mg/dL unknown) (unknown) (no (unknown) (unknown) Carbon Dioxide (units (unknown) date) (22-32) mmol/L unknown) (unknown) (no (unknown) (unknown) Carbon Dioxide (units (unknown) date) 23 (22-32) mmol/L unknown) (unknown) (no (unknown) (unknown) Cardiac rhythm (units (unknown) date) post-cardioversio unknown) n: NSR (unknown) (no (unknown) (unknown) Cardioversion (units ( unknown) date) unknown) (unknown) (no (unknown) (unknown) Chemistries are (units (unknown) date) reassuring unknown) (unknown) (no (unknown) (unknown) Chief Complaint: (units (unknown) date) Arrhythmia/Palpit unknown) ations (unknown) (no (unknown) (unknown) Chloride (units (unkno wn) date) (98-107) mmol/L unknown) (unknown) (no (unknown) (unknown) Chloride 106 (units (u nknown) date) (98-107) mmol/L unknown) (unknown) (no (unknown) (unknown) Code Status and (units (unknown) date) discussions:: unknown) Full code (unknown) (no (unknown) (unknown) Complete Blood (units (unknown) date) Count AUTO DIFF unknown) Stat (unknown) (no (unknown) (unknown) Complicating (units (u nknown) date) co-morbidities: unknown) (unknown) (no (unknown) (unknown) Complications: (units (unknown) date) none unknown) (unknown) (no (unknown) (unknown) Comprehensive (units ( unknown) date) Metabolic Panel unknown) Stat (unknown) (no (unknown) (unknown) Consent Signed: (units (unknown) date) Yes unknown) (unknown) (no (unknown) (unknown) Consent signed: (units (unknown) date) Yes unknown) (unknown) (no (unknown) (unknown) Consultation #1: (units (unknown) date) unknown) (unknown) (no (unknown) (unknown) Consultations (units ( unknown) date) unknown) (unknown) (no (unknown) (unknown) Consultations: (units (unknown) date) unknown) (unknown) (no (unknown) (unknown) Corroborating (units ( unknown) date) data: unknown) (unknown) (no (unknown) (unknown) Course (units (unkno wn) date) unknown) (unknown) (no (unknown) (unknown) Creatinine (units (unk nown) date) (0.66-1.25) mg/dL unknown) (unknown) (no (unknown) (unknown) Creatinine 0.80 (units (unknown) date) (0.66-1.25) mg/dL unknown) (unknown) (no (unknown) (unknown) : 1935 (units (unknown) date) Acct:[id number] unknown) (unknown) (no (unknown) (unknown) Data collected (units (unknown) date) from: patient, unknown) caregiver, Davonte. (unknown) (no (unknown) (unknown) Date of Service: (units (unknown) date) 10/24/22 unknown) (unknown) (no (unknown) (unknown) Department and (units (unknown) date) follow-up unknown) outpatient with with lumbar and cervical spine (unknown) (no (unknown) (unknown) Diagnosis: (units (unk nown) date) unknown) (unknown) (no (unknown) (unknown) Differential (units (u nknown) date) considered: unknown) Recurrent fall with new compression fractures, pain (unknown) (no (unknown) (unknown) Discontinued (units (u nknown) date) Medications unknown) (unknown) (no (unknown) (unknown) Discussion: (units (un known) date) unknown) (unknown) (no (unknown) (unknown) Disposition: see (units (unknown) date) below, along with unknown) detailed discharge instructions that have (unknown) (no (unknown) (unknown) Documented By: (units (unknown) date) RL unknown) (unknown) (no (unknown) (unknown) ECG Data (units (unkno wn) date) unknown) (unknown) (no (unknown) (unknown) ED Orders (units (unkn own) date) unknown) (unknown) (no (unknown) (unknown) ED Sedation (units (un known) date) Level: Moderate unknown) (Concious) (unknown) (no (unknown) (unknown) EKG-12 Lead (units (un known) date) Routine unknown) (unknown) (no (unknown) (unknown) EKG-12 Lead Stat (units (unknown) date) unknown) (unknown) (no (unknown) (unknown) ENT: Nose (units (unkn own) date) without bleeding, unknown) purulent drainage. Throat without erythema, (unknown) (no (unknown) (unknown) ER Physician: (units ( unknown) date) Khari Walls unknown) D.O. (unknown) (no (unknown) (unknown) EXTREMITIES: No (units (unknown) date) edema or joint unknown) tenderness. (unknown) (no (unknown) (unknown) EYES: Pupils (units (u nknown) date) equal round and unknown) reactive. Extraocular motions intact. No scleral (unknown) (no (unknown) (unknown) Emergency Report (units (unknown) date) unknown) (unknown) (no (unknown) (unknown) Eos # (Auto) (units (u nknown) date) (0-450) /uL unknown) (unknown) (no (unknown) (unknown) Eos # (Auto) 200 (units (unknown) date) (0-450) /uL unknown) (unknown) (no (unknown) (unknown) Eos % (Auto) (units (u nknown) date) (2-4) % unknown) (unknown) (no (unknown) (unknown) Eos % (Auto) 2.1 (units (unknown) date) (2-4) % unknown) (unknown) (no (unknown) (unknown) Estimated GFR > (units (unknown) date) 60 (>60) mL/min unknown) (unknown) (no (unknown) (unknown) Estimated GFR (units ( unknown) date) (>60) mL/min unknown) (unknown) (no (unknown) (unknown) Exam Narrative: (units (unknown) date) unknown) (unknown) (no (unknown) (unknown) Exam documented (units (unknown) date) above, pertinent unknown) findings include: Severe lower thoracic and (unknown) (no (unknown) (unknown) Exam (units (unkno wn) date) unknown) (unknown) (no (unknown) (unknown) GASTROINTESTINAL (units (unknown) date) : Abdomen soft, unknown) non-tender, nondistended. (unknown) (no (unknown) (unknown) GASTROINTESTINAL (units (unknown) date) : Denies nausea, unknown) vomiting, abdominal pain, diarrhea, (unknown) (no (unknown) (unknown) GENERAL: Denies (units (unknown) date) chills, fatigue, unknown) malaise, fever, sweats. (unknown) (no (unknown) (unknown) GENERAL: [86] (units ( unknown) date) year old patient unknown) appears stated age. Well-developed patient, in (unknown) (no (unknown) (unknown) : Denies (units (unk nown) date) dysuria, unknown) frequency, incontinence, hematuria, urinary retention. (unknown) (no (unknown) (unknown) General (units (o wn) date) unknown) (unknown) (no (unknown) (unknown) Glucose (80-110) (units (unknown) date) mg/dL unknown) (unknown) (no (unknown) (unknown) Glucose 89 (units (unk n) date) (80-110) mg/dL unknown) (unknown) (no (unknown) (unknown) HEAD: (units ( wn) date) Atraumatic. unknown) Normocephalic. (unknown) (no (unknown) (unknown) HEENT: Denies (units ( unknown) date) sinus pain, ear unknown) pain, sore throat, difficulty swallowing, (unknown) (no (unknown) (unknown) HPI - (units (o wn) date) Arrhythmia/Palpit unknown) ations (unknown) (no (unknown) (unknown) HPI narrative: (units (unknown) date) unknown) (unknown) (no (unknown) (unknown) Hct (41-53) % (units ( unknown) date) unknown) (unknown) (no (unknown) (unknown) Hct 45.9 (41-53) (units (unknown) date) % unknown) (unknown) (no (unknown) (unknown) He states he has (units (unknown) date) significant pain unknown) that is worse with range of motion and (unknown) (no (unknown) (unknown) Hgb (13.5-17.5) (units (unknown) date) g/dL unknown) (unknown) (no (unknown) (unknown) Hgb 15.6 (units (o wn) date) (13.5-17.5) g/dL unknown) (unknown) (no (unknown) (unknown) History of (units (unk n) date) Present Illness unknown) (unknown) (no (unknown) (unknown) Hydromorphone (units ( unknown) date) HCl unknown) (Hydromorphone 0.5 Mg Inj) 0.5 mg IV NOW ONE (unknown) (no (unknown) (unknown) INR (0.9-1.3) (units ( unknown) date) unknown) (unknown) (no (unknown) (unknown) INR 1.5 H (units (unkn own) date) (0.9-1.3) unknown) (unknown) (no (unknown) (unknown) IV Propofol dose (units (unknown) date) (mg): 40 unknown) (unknown) (no (unknown) (unknown) Imaging studies (units (unknown) date) independently unknown) reviewed: (unknown) (no (unknown) (unknown) Independently (units ( unknown) date) reviewed EKG as unknown) above (unknown) (no (unknown) (unknown) Indication: (units (un known) date) cardioversion unknown) (unknown) (no (unknown) (unknown) Indication: (units (un known) date) unknown) (unknown) (no (unknown) (unknown) Initial Vital (units ( unknown) date) Signs unknown) (unknown) (no (unknown) (unknown) Initial Vital (units ( unknown) date) Signs: unknown) (unknown) (no (unknown) (unknown) Interpretation: (units (unknown) date) unknown) (unknown) (no (unknown) (unknown) Intraservice (units (u nknown) date) time/total unknown) sedation time (min): 10 (unknown) (no (unknown) (unknown) [facility] (units (unknown) date) [address] unknown) [place] [address] (unknown) (no (unknown) (unknown) Joules used: 120 (units (unknown) date) unknown) (unknown) (no (unknown) (unknown) Lab Data (units (unkno wn) date) unknown) (unknown) (no (unknown) (unknown) Lab Results (units (un known) date) unknown) (unknown) (no (unknown) (unknown) Lab Test results (units (unknown) date) independently unknown) reviewed as above. Pertinent findings: (unknown) (no (unknown) (unknown) Labs: (units (unkno wn) date) unknown) (unknown) (no (unknown) (unknown) Last Admin: (units (un known) date) 10/24/22 16:53 unknown) Dose: 324 mg (unknown) (no (unknown) (unknown) Last Admin: (units (un known) date) 10/24/22 17:42 unknown) Dose: 40 mg (unknown) (no (unknown) (unknown) Lipase (23-300) (units (unknown) date) U/L unknown) (unknown) (no (unknown) (unknown) Lipase 169 (units (unk nown) date) (23-300) U/L unknown) (unknown) (no (unknown) (unknown) Lipase Stat (units (un known) date) unknown) (unknown) (no (unknown) (unknown) Lymph # (Auto) (units (unknown) date) (7517-3578) /uL unknown) (unknown) (no (unknown) (unknown) Lymph # (Auto) (units (unknown) date) 2300 (3849-5074) unknown) /uL (unknown) (no (unknown) (unknown) Lymph % (Auto) (units (unknown) date) (25-40) % unknown) (unknown) (no (unknown) (unknown) Lymph % (Auto) (units (unknown) date) 22.0 L (25-40) % unknown) (unknown) (no (unknown) (unknown) MCH (26-34) PG (units (unknown) date) unknown) (unknown) (no (unknown) (unknown) MCH 33.9 (26-34) (units (unknown) date) PG unknown) (unknown) (no (unknown) (unknown) MCHC (30-36) % (units (unknown) date) unknown) (unknown) (no (unknown) (unknown) MCHC 34.1 (units (unkn own) date) (30-36) % unknown) (unknown) (no (unknown) (unknown) MCV (80-100) fL (units (unknown) date) unknown) (unknown) (no (unknown) (unknown) MCV 99.4 (units (unkno wn) date) (80-100) fL unknown) (unknown) (no (unknown) (unknown) MDM - (units (unkno wn) date) Arrhythmia/Palpit unknown) ations (unknown) (no (unknown) (unknown) MDM Narrative (units ( unknown) date) unknown) (unknown) (no (unknown) (unknown) MUSCULOSKELETAL: (units (unknown) date) See HPI unknown) (unknown) (no (unknown) (unknown) Magnesium (units (unkn own) date) (1.6-2.3) mg/dL unknown) (unknown) (no (unknown) (unknown) Magnesium 1.9 (units ( unknown) date) (1.6-2.3) mg/dL unknown) (unknown) (no (unknown) (unknown) Magnesium Stat (units (unknown) date) unknown) (unknown) (no (unknown) (unknown) Mallampati (units (unk nown) date) Airway unknown) Classification: Class II (unknown) (no (unknown) (unknown) Medical decision (units (unknown) date) making narrative: unknown) (unknown) (no (unknown) (unknown) Medical records (units (unknown) date) reviewed: No unknown) additional medical records are available (unknown) (no (unknown) (unknown) Mode of arrival: (units (unknown) date) Family Vehicle unknown) (unknown) (no (unknown) (unknown) Brule # (Auto) (units ( unknown) date) (0-900) /uL unknown) (unknown) (no (unknown) (unknown) Brule # (Auto) (units ( unknown) date) 1100 H (0-900) unknown) /uL (unknown) (no (unknown) (unknown) Brule % (Auto) (units ( unknown) date) (3-14) % unknown) (unknown) (no (unknown) (unknown) Brule % (Auto) (units ( unknown) date) 11.0 (3-14) % unknown) (unknown) (no (unknown) (unknown) NECK: Trachea (units ( unknown) date) midline. Non unknown) tender (unknown) (no (unknown) (unknown) NEURO: AOx3. (units (u nknown) date) unknown) (unknown) (no (unknown) (unknown) NEUROLOGIC: See (units (unknown) date) HPI unknown) (unknown) (no (unknown) (unknown) Narrative (units (unkn own) date) unknown) (unknown) (no (unknown) (unknown) Narrative: (units (unk nown) date) unknown) (unknown) (no (unknown) (unknown) Neut # (Auto) (units ( unknown) date) (9984-6790) /uL unknown) (unknown) (no (unknown) (unknown) Neut # (Auto) (units ( unknown) date) 6500 (3047-0886) unknown) /uL (unknown) (no (unknown) (unknown) Neut % (Auto) (units ( unknown) date) (50-75) % unknown) (unknown) (no (unknown) (unknown) Neut % (Auto) (units ( unknown) date) 63.6 (50-75) % unknown) (unknown) (no (unknown) (unknown) Number of (units (unkn own) date) attempts unknown) (shocks): 1 (unknown) (no (unknown) (unknown) Ordered: (units (unkno wn) date) unknown) (unknown) (no (unknown) (unknown) Orders (units (unkno wn) date) unknown) (unknown) (no (unknown) (unknown) Oxygen Delivery (units (unknown) date) Method 10/24/22 unknown) 16:14 (unknown) (no (unknown) (unknown) Oxygen Delivery (units (unknown) date) Method Room Air unknown) (unknown) (no (unknown) (unknown) Oxygen Delivery (units (unknown) date) Method unknown) (unknown) (no (unknown) (unknown) PSYCHIATRIC: No (units (unknown) date) concerning unknown) psychosocial issues. (unknown) (no (unknown) (unknown) PT (10.1-12.7) (units (unknown) date) SECONDS unknown) (unknown) (no (unknown) (unknown) PT 17.4 H (units (unkn own) date) (10.1-12.7) unknown) SECONDS (unknown) (no (unknown) (unknown) Partial (units (unkno wn) date) Thromboplastin unknown) Time Stat (unknown) (no (unknown) (unknown) Patient History (units (unknown) date) unknown) (unknown) (no (unknown) (unknown) Patient (units (unkno wn) date) Tolerated unknown) Procedure: Well (unknown) (no (unknown) (unknown) Patient (units (unkno wn) date) converted as unknown) noted above, however 2 episodes of nonsustained V-tach in (unknown) (no (unknown) (unknown) Patient: (units (unkno wn) date) NeelyNicolas unknown) MR#: [id number] (unknown) (no (unknown) (unknown) Plt Count (units (unkn own) date) (150-400) X103/uL unknown) (unknown) (no (unknown) (unknown) Plt Count 218 (units ( unknown) date) (150-400) X103/uL unknown) (unknown) (no (unknown) (unknown) Post (units (unkno wn) date) cardioversion unknown) (unknown) (no (unknown) (unknown) Potassium (units (unkn own) date) (3.4-5.1) mmol/L unknown) (unknown) (no (unknown) (unknown) Potassium 3.8 (units ( unknown) date) (3.4-5.1) mmol/L unknown) (unknown) (no (unknown) (unknown) Preparation: (units (u nknown) date) monitoring and evaluation advisor unknown) applied, pulse oximeter, capnometry used, (unknown) (no (unknown) (unknown) Procedural (units (unk nown) date) Sedation unknown) (unknown) (no (unknown) (unknown) Procedures (units (unk n) date) unknown) (unknown) (no (unknown) (unknown) Propofol (units (o wn) date) (Propofol 200 unknown) Mg/20 Ml Vial) 70 mg 1 mg/kg (70 mg) IV NOW ONE (unknown) (no (unknown) (unknown) Prothrombin Time (units (unknown) date) INR Stat unknown) (unknown) (no (unknown) (unknown) Protocol (units (o wn) date) unknown) (unknown) (no (unknown) (unknown) Pulse Oximetry (units (unknown) date) 94 unknown) (unknown) (no (unknown) (unknown) Pulse Oximetry (units (unknown) date) 95 95 unknown) (unknown) (no (unknown) (unknown) Pulse Oximetry (units (unknown) date) 95 96 unknown) (unknown) (no (unknown) (unknown) Pulse Oximetry (units (unknown) date) 95 unknown) (unknown) (no (unknown) (unknown) Pulse Oximetry (units (unknown) date) 96 95 unknown) (unknown) (no (unknown) (unknown) Pulse Oximetry (units (unknown) date) 96 97 unknown) (unknown) (no (unknown) (unknown) Pulse Oximetry (units (unknown) date) 96 unknown) (unknown) (no (unknown) (unknown) Pulse Oximetry (units (unknown) date) 97 10/24/22 16:14 unknown) (unknown) (no (unknown) (unknown) Pulse Oximetry (units (unknown) date) 97 97 unknown) (unknown) (no (unknown) (unknown) Pulse Oximetry (units (unknown) date) 98 99 unknown) (unknown) (no (unknown) (unknown) Pulse Oximetry (units (unknown) date) 98 unknown) (unknown) (no (unknown) (unknown) Pulse Rate 133 H (units (unknown) date) unknown) (unknown) (no (unknown) (unknown) Pulse Rate 135 H (units (unknown) date) 10/24/22 16:14 unknown) (unknown) (no (unknown) (unknown) Pulse Rate 135 H (units (unknown) date) 118 H unknown) (unknown) (no (unknown) (unknown) Pulse Rate 135 H (units (unknown) date) 130 H unknown) (unknown) (no (unknown) (unknown) Pulse Rate 136 H (units (unknown) date) 131 H unknown) (unknown) (no (unknown) (unknown) Pulse Rate 138 H (units (unknown) date) 140 H unknown) (unknown) (no (unknown) (unknown) Pulse Rate 143 H (units (unknown) date) 136 H unknown) (unknown) (no (unknown) (unknown) Pulse Rate 85 86 (units (unknown) date) unknown) (unknown) (no (unknown) (unknown) Pulse Rate 85 (units ( unknown) date) unknown) (unknown) (no (unknown) (unknown) Pulse Rate 86 (units ( unknown) date) unknown) (unknown) (no (unknown) (unknown) Pulse Rate 87 84 (units (unknown) date) unknown) (unknown) (no (unknown) (unknown) Pulse Rate 87 89 (units (unknown) date) unknown) (unknown) (no (unknown) (unknown) Pulse Rate 88 89 (units (unknown) date) unknown) (unknown) (no (unknown) (unknown) Pulse Rate 90 85 (units (unknown) date) unknown) (unknown) (no (unknown) (unknown) Pulse Rate 90 (units ( unknown) date) unknown) (unknown) (no (unknown) (unknown) RBC (4.5-5.9) (units ( unknown) date) X106/uL unknown) (unknown) (no (unknown) (unknown) RBC 4.62 (units (unkno wn) date) (4.5-5.9) X106/uL unknown) (unknown) (no (unknown) (unknown) RDW (11.6-14.8) (units (unknown) date) % unknown) (unknown) (no (unknown) (unknown) RDW 14.5 (units (unkno wn) date) (11.6-14.8) % unknown) (unknown) (no (unknown) (unknown) RESPIRATORY: (units (un known) date) Clear to unknown) auscultation. Breath sounds equal bilaterally. No wheezes, (unknown) (no (unknown) (unknown) RESPIRATORY: See (units (unknown) date) HPI unknown) (unknown) (no (unknown) (unknown) Re-evaluations: (units (unknown) date) unknown) (unknown) (no (unknown) (unknown) Reevaluation #1: (units (unknown) date) unknown) (unknown) (no (unknown) (unknown) Reevaluation(s) (units (unknown) date) unknown) (unknown) (no (unknown) (unknown) Respiratory Rate (units (unknown) date) 11 L unknown) (unknown) (no (unknown) (unknown) Respiratory Rate (units (unknown) date) 13 10 L unknown) (unknown) (no (unknown) (unknown) Respiratory Rate (units (unknown) date) 14 14 unknown) (unknown) (no (unknown) (unknown) Respiratory Rate (units (unknown) date) 14 21 unknown) (unknown) (no (unknown) (unknown) Respiratory Rate (units (unknown) date) 14 unknown) (unknown) (no (unknown) (unknown) Respiratory Rate (units (unknown) date) 15 13 unknown) (unknown) (no (unknown) (unknown) Respiratory Rate (units (unknown) date) 15 16 unknown) (unknown) (no (unknown) (unknown) Respiratory Rate (units (unknown) date) 15 unknown) (unknown) (no (unknown) (unknown) Respiratory Rate (units (unknown) date) 16 17 unknown) (unknown) (no (unknown) (unknown) Respiratory Rate (units (unknown) date) 18 12 unknown) (unknown) (no (unknown) (unknown) Respiratory Rate (units (unknown) date) 18 unknown) (unknown) (no (unknown) (unknown) Respiratory Rate (units (unknown) date) 19 10/24/22 16:14 unknown) (unknown) (no (unknown) (unknown) Respiratory Rate (units (unknown) date) 19 22 unknown) (unknown) (no (unknown) (unknown) Respiratory Rate (units (unknown) date) 20 13 unknown) (unknown) (no (unknown) (unknown) Respiratory Rate (units (unknown) date) 23 15 unknown) (unknown) (no (unknown) (unknown) Result diagrams: (units (unknown) date) unknown) (unknown) (no (unknown) (unknown) Review of (units (unkn own) date) Systems unknown) (unknown) (no (unknown) (unknown) SARS-CoV-2 (PCR) (units (unknown) date) (Negative) unknown) (unknown) (no (unknown) (unknown) SARS-CoV-2 (PCR) (units (unknown) date) Negative unknown) (Negative) (unknown) (no (unknown) (unknown) SKIN: Denies (units (u nknown) date) rash, skin unknown) lesions, or other (unknown) (no (unknown) (unknown) SKIN: No rash or (units (unknown) date) erythema of unknown) visible areas (unknown) (no (unknown) (unknown) Signed By: (units (unk nown) date) unknown) (unknown) (no (unknown) (unknown) Smoking Status: (units (unknown) date) Never smoker unknown) (unknown) (no (unknown) (unknown) Social (units (unkno wn) date) Determinants of unknown) Health that impact treatment or disposition: age, (unknown) (no (unknown) (unknown) Social History (units (unknown) date) unknown) (unknown) (no (unknown) (unknown) Sodium (137-145) (units (unknown) date) mmol/L unknown) (unknown) (no (unknown) (unknown) Sodium 139 (units (unk nown) date) (137-145) mmol/L unknown) (unknown) (no (unknown) (unknown) Source: patient (units (unknown) date) unknown) (unknown) (no (unknown) (unknown) Stability: (units (unk nown) date) Stable unknown) (unknown) (no (unknown) (unknown) Stated (units (unkno wn) date) Complaint: Back unknown) pain (unknown) (no (unknown) (unknown) Stop: 10/24/22 (units (unknown) date) 16:29 unknown) (unknown) (no (unknown) (unknown) Stop: 10/24/22 (units (unknown) date) 17:28 unknown) (unknown) (no (unknown) (unknown) Stop: 10/24/22 (units (unknown) date) 18:31 unknown) (unknown) (no (unknown) (unknown) Stop: 10/24/22 (units (unknown) date) 20:13 unknown) (unknown) (no (unknown) (unknown) Temperature 98.2 (units (unknown) date) F 10/24/22 16:14 unknown) (unknown) (no (unknown) (unknown) Temperature 98.2 (units (unknown) date) F unknown) (unknown) (no (unknown) (unknown) Temperature (units (un known) date) unknown) (unknown) (no (unknown) (unknown) Time Seen by (units (u nknown) date) Provider: unknown) 10/24/22 16:34 (unknown) (no (unknown) (unknown) Time out (units (unkno wn) date) performed: Yes unknown) (unknown) (no (unknown) (unknown) Total Bilirubin (units (unknown) date) (0.2-1.3) mg/dL unknown) (unknown) (no (unknown) (unknown) Total Bilirubin (units (unknown) date) 1.1 (0.2-1.3) unknown) mg/dL (unknown) (no (unknown) (unknown) Total Creatine (units (unknown) date) Kinase < 20 L unknown) (55-170) U/L (unknown) (no (unknown) (unknown) Total Creatine (units (unknown) date) Kinase (55-170) unknown) U/L (unknown) (no (unknown) (unknown) Total Protein (units ( unknown) date) (6.3-8.2) g/dL unknown) (unknown) (no (unknown) (unknown) Total Protein (units ( unknown) date) 7.9 (6.3-8.2) unknown) g/dL (unknown) (no (unknown) (unknown) Treatment and (units ( unknown) date) disposition unknown) (unknown) (no (unknown) (unknown) Treatments: (units (un known) date) unknown) (unknown) (no (unknown) (unknown) Troponin + CK (units ( unknown) date) Cardiac Panel unknown) Stat (unknown) (no (unknown) (unknown) Troponin I < (units (u nknown) date) 0.012 unknown) (0.01-0.034) ng/mL (unknown) (no (unknown) (unknown) Troponin I (units (unk nown) date) (0.01-0.034) unknown) ng/mL (unknown) (no (unknown) (unknown) Vital Signs - 8 (units (unknown) date) hr unknown) (unknown) (no (unknown) (unknown) Vital Signs (units (un known) date) unknown) (unknown) (no (unknown) (unknown) Vital signs: (units (u nknown) date) unknown) (unknown) (no (unknown) (unknown) WBC (4.5-11.0) (units (unknown) date) X103/uL unknown) (unknown) (no (unknown) (unknown) WBC 10.3 (units (unkno wn) date) (4.5-11.0) unknown) X103/uL (unknown) (no (unknown) (unknown) XR chest 1V Stat (units (unknown) date) unknown) (unknown) (no (unknown) (unknown) [Embedded Image (units (unknown) date) Not Available] unknown) (unknown) (no (unknown) (unknown) additional (units (unk nown) date) outpatient follow unknown) up (unknown) (no (unknown) (unknown) alcohol intake (units (unknown) date) frequency: unknown) holidays/special occasions only (unknown) (no (unknown) (unknown) and has a (units (unkn own) date) follow-up unknown) appointment on the . This problem is new, uncertain (unknown) (no (unknown) (unknown) atrial (units (unkno wn) date) fibrillation. unknown) Additional trauma not previously identified (unknown) (no (unknown) (unknown) been reviewed (units ( unknown) date) with patient as unknown) well as indications for ED re-evaluation and (unknown) (no (unknown) (unknown) but primarily (units ( unknown) date) due to severe unknown) midline low back pain. He had 2 falls, the most (unknown) (no (unknown) (unknown) constipation, (units ( unknown) date) melena. unknown) (unknown) (no (unknown) (unknown) currently (units (unkn own) date) anticoagulated on unknown) Xarelto. Presented with atrial fibrillation with (unknown) (no (unknown) (unknown) discussed with (units (unknown) date) Dr. Renee (on unknown) call Cardio), no indication for amio at this (unknown) (no (unknown) (unknown) dizziness. (units (unk nown) date) unknown) (unknown) (no (unknown) (unknown) exacerbating his (units (unknown) date) cardiac issues unknown) and causing increased episodes of paroxysmal (unknown) (no (unknown) (unknown) exacerbation of (units (unknown) date) chronic issue unknown) with uncertain prognosis, life-threatening (unknown) (no (unknown) (unknown) facility noting (units (unknown) date) multilevel unknown) osteopenic compression fractures with retropulsed (unknown) (no (unknown) (unknown) fibrillation on (units (unknown) date) arrival unknown) (unknown) (no (unknown) (unknown) fracture segment (units (unknown) date) at L1 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 He denies any (unknown) (no (unknown) (unknown) frequently short (units (unknown) date) of breath but unknown) admits that the majority of his day is consume (unknown) (no (unknown) (unknown) icterus. No (units (un known) date) injection or unknown) drainage. (unknown) (no (unknown) (unknown) improves with (units ( unknown) date) rest. He denies unknown) any chest pain but does state that he is (unknown) (no (unknown) (unknown) inability to (units (u nknown) date) function at home unknown) due to pain. Has a friend, Davonte Mejia (unknown) (no (unknown) (unknown) lumbar back pain (units (unknown) date) with pain unknown) significant enough he is unable to roll over. Atrial (unknown) (no (unknown) (unknown) many years, (units (un known) date) pacemaker unknown) placement for sick sinus syndrome, history of ventricular (unknown) (no (unknown) (unknown) numbness, (units (unkn own) date) tingling or unknown) weakness, denies any loss of control of bowel or bladder. (unknown) (no (unknown) (unknown) obvious (units (unkno wn) date) distress. unknown) Complaining of low back pain (unknown) (no (unknown) (unknown) palpitations, (units ( unknown) date) chest pain or unknown) shortness of breath this. (unknown) (no (unknown) (unknown) potential (units (unkn own) date) unknown) (unknown) (no (unknown) (unknown) prognosis with (units (unknown) date) life-threatening unknown) potential (unknown) (no (unknown) (unknown) rales, or (units (unkn own) date) rhonchi. unknown) (unknown) (no (unknown) (unknown) rapid atrial fib (units (unknown) date) unknown) (unknown) (no (unknown) (unknown) rapid (units (unkno wn) date) ventricular unknown) response was treated with single shock and converted back to (unknown) (no (unknown) (unknown) recent of which (units (unknown) date) was in the end of unknown) September and has advanced imaging from our (unknown) (no (unknown) (unknown) regarding the (units ( unknown) date) falls are unknown) available. Initially seen at [facility] (unknown) (no (unknown) (unknown) rubs. (units (unkno wn) date) unknown) (unknown) (no (unknown) (unknown) significant (units (un known) date) enough that is unknown) causing ileus and pain significant enough that it is (unknown) (no (unknown) (unknown) sinus rhythm (units (u nknown) date) with episodes of unknown) paced rhythm intermittently. Problem is (unknown) (no (unknown) (unknown) supplemental O2 (units (unknown) date) applied, unknown) suction/airway equipment at bedside and IV secured (unknown) (no (unknown) (unknown) tachycardia (units (un known) date) presents for unknown) evaluation episodes of shortness of breath and fatigue (unknown) (no (unknown) (unknown) the aftermath (units ( unknown) date) measuring 8 and unknown) 10 beats a piece, patient did not have any (unknown) (no (unknown) (unknown) time, consult (units ( unknown) date) with [facility] unknown) (unknown) (no (unknown) (unknown) tonsillar (units (unkn own) date) hypertrophy or unknown) exudate. Airway patent. (unknown) (no (unknown) (unknown) with severe pain (units (unknown) date) unknown) Result panel 249 (unknown) (no (unknown) (unknown) (no value) (units (unk nown) date) unknown) (unknown) (no (unknown) (unknown) <Khari Walls, (units (unknown) date) DO - Last Filed: unknown) 10/24/22 20:03> (unknown) (no (unknown) (unknown) <Sharri Allan (units (unkn own) date) MD Malik - Last unknown) Filed: 10/24/22 21:09> (unknown) (no (unknown) (unknown) . (units (unkno wn) date) unknown) (unknown) (no (unknown) (unknown) 10/24/22 10/24/22 (units (unknown) date) 10/24/22 unknown) Range/Units (unknown) (no (unknown) (unknown) 10/24/22 16:28 (units (unknown) date) unknown) (unknown) (no (unknown) (unknown) 10/24/22 16:35 (units (unknown) date) unknown) (unknown) (no (unknown) (unknown) 10/24/22 16:40 (units (unknown) date) unknown) (unknown) (no (unknown) (unknown) 10/24/22 16:55 (units (unknown) date) unknown) (unknown) (no (unknown) (unknown) 10/24/22 17:49 (units (unknown) date) unknown) (unknown) (no (unknown) (unknown) 10/24/22 18:28 (units (unknown) date) unknown) (unknown) (no (unknown) (unknown) 10/24/22 (units (unkno wn) date) Range/Units unknown) (unknown) (no (unknown) (unknown) 10/24/22 (units (unkno wn) date) unknown) (unknown) (no (unknown) (unknown) [id number] (units (unkno wn) date) unknown) (unknown) (no (unknown) (unknown) 1. New T11 (units (unk nown) date) compression unknown) fracture: 2 falls in september with orthopedic (unknown) (no (unknown) (unknown) 12 point review (units (unknown) date) of systems is unknown) negative except for those stated above (unknown) (no (unknown) (unknown) 1635 (units (unkno wn) date) unknown) (unknown) (no (unknown) (unknown) 16:14 10/24/22 (units (unknown) date) unknown) (unknown) (no (unknown) (unknown) 16:40 16:40 16:40 (units (unknown) date) unknown) (unknown) (no (unknown) (unknown) 16:51 10/24/22 (units (unknown) date) unknown) (unknown) (no (unknown) (unknown) 16:52 10/24/22 (units (unknown) date) unknown) (unknown) (no (unknown) (unknown) 16:52 (units (unkno wn) date) unknown) (unknown) (no (unknown) (unknown) 16:55 (units (unkno wn) date) unknown) (unknown) (no (unknown) (unknown) 17:00 10/24/22 (units (unknown) date) unknown) (unknown) (no (unknown) (unknown) 17:00 (units (unkno wn) date) unknown) (unknown) (no (unknown) (unknown) 17:16 10/24/22 (units (unknown) date) unknown) (unknown) (no (unknown) (unknown) 17:20 10/24/22 (units (unknown) date) unknown) (unknown) (no (unknown) (unknown) 17:20 (units (unkno wn) date) unknown) (unknown) (no (unknown) (unknown) 17:30 10/24/22 (units (unknown) date) unknown) (unknown) (no (unknown) (unknown) 17:31 10/24/22 (units (unknown) date) unknown) (unknown) (no (unknown) (unknown) 17:31 (units (unkno wn) date) unknown) (unknown) (no (unknown) (unknown) 17:35 10/24/22 (units (unknown) date) unknown) (unknown) (no (unknown) (unknown) 17:35 (units (unkno wn) date) unknown) (unknown) (no (unknown) (unknown) 17:40 10/24/22 (units (unknown) date) unknown) (unknown) (no (unknown) (unknown) 17:45 10/24/22 (units (unknown) date) unknown) (unknown) (no (unknown) (unknown) 17:51 10/24/22 (units (unknown) date) unknown) (unknown) (no (unknown) (unknown) 17:51 (units (unkno wn) date) unknown) (unknown) (no (unknown) (unknown) 17:55 10/24/22 (units (unknown) date) unknown) (unknown) (no (unknown) (unknown) 17:55 (units (unkno wn) date) unknown) (unknown) (no (unknown) (unknown) 18:00 10/24/22 (units (unknown) date) unknown) (unknown) (no (unknown) (unknown) 18:05 10/24/22 (units (unknown) date) unknown) (unknown) (no (unknown) (unknown) 18:05 (units (unkno wn) date) unknown) (unknown) (no (unknown) (unknown) 18:10 10/24/22 (units (unknown) date) unknown) (unknown) (no (unknown) (unknown) 18:10 (units (unkno wn) date) unknown) (unknown) (no (unknown) (unknown) 18:15 10/24/22 (units (unknown) date) unknown) (unknown) (no (unknown) (unknown) 18:20 10/24/22 (units (unknown) date) unknown) (unknown) (no (unknown) (unknown) 18:20 (units (unkno wn) date) unknown) (unknown) (no (unknown) (unknown) 18:25 10/24/22 (units (unknown) date) unknown) (unknown) (no (unknown) (unknown) 18:25 (units (unkno wn) date) unknown) (unknown) (no (unknown) (unknown) 18:30 10/24/22 (units (unknown) date) unknown) (unknown) (no (unknown) (unknown) 19:00 (units (unkno wn) date) unknown) (unknown) (no (unknown) (unknown) 19:07 10/24/22 (units (unknown) date) unknown) (unknown) (no (unknown) (unknown) 19:10 10/24/22 (units (unknown) date) unknown) (unknown) (no (unknown) (unknown) 19:10 (units (unkno wn) date) unknown) (unknown) (no (unknown) (unknown) 19:15 10/24/22 (units (unknown) date) unknown) (unknown) (no (unknown) (unknown) 19:15 (units (unkno wn) date) unknown) (unknown) (no (unknown) (unknown) 2. 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 Ileus: (units (unkn own) date) Presumably unknown) secondary to severe pain. Uncertain prognosis (unknown) (no (unknown) (unknown) [id number] who (units (unknown) date) has been helping. unknown) His son lives in [place] and is also involved (unknown) (no (unknown) (unknown) 86-year-old male (units (unknown) date) slightly poor unknown) historian with history of AFib on Xarelto for (unknown) (no (unknown) (unknown) ALT (<50) IU/L (units (unknown) date) unknown) (unknown) (no (unknown) (unknown) ALT 27 (<50) IU/L (units (unknown) date) unknown) (unknown) (no (unknown) (unknown) APTT (26-36) (units (u nknown) date) SECONDS unknown) (unknown) (no (unknown) (unknown) APTT 36 (26-36) (units (unknown) date) SECONDS unknown) (unknown) (no (unknown) (unknown) ASA Class: III (units (unknown) date) unknown) (unknown) (no (unknown) (unknown) AST (17-59) IU/L (units (unknown) date) unknown) (unknown) (no (unknown) (unknown) AST 32 (17-59) (units (unknown) date) IU/L unknown) (unknown) (no (unknown) (unknown) Age/Sex: 86 / M (units (unknown) date) unknown) (unknown) (no (unknown) (unknown) Alkaline (units (unkno wn) date) Phosphatase unknown) (38-126) U/L (unknown) (no (unknown) (unknown) Alkaline (units (unkno wn) date) Phosphatase 108 unknown) (38-126) U/L (unknown) (no (unknown) (unknown) Amiodarone (units (unk nown) date) HCl/Dextrose unknown) (Nexterone) 150 mg in 100 mls @ 600 mls/hr IV NOW ONE; (unknown) (no (unknown) (unknown) Aspirin (Aspirin (units (unknown) date) 81 Mg Chew Tab) unknown) 324 mg PO NOW ONE (unknown) (no (unknown) (unknown) Atrial (units (unkno wn) date) fibrillation with unknown) rapid ventricular response at 136 (unknown) (no (unknown) (unknown) BACK: Severe (units (u nknown) date) midline, unknown) tenderness significantly worse with motion (unknown) (no (unknown) (unknown) BUN (9-20) mg/dL (units (unknown) date) unknown) (unknown) (no (unknown) (unknown) BUN 9 (9-20) (units (u nknown) date) mg/dL unknown) (unknown) (no (unknown) (unknown) BUN/Creatinine (units (unknown) date) Ratio (6-22) unknown) (unknown) (no (unknown) (unknown) BUN/Creatinine (units (unknown) date) Ratio 11.3 (6-22) unknown) (unknown) (no (unknown) (unknown) Baso # (Auto) (units ( unknown) date) (0-100) /uL unknown) (unknown) (no (unknown) (unknown) Baso # (Auto) 100 (units (unknown) date) (0-100) /uL unknown) (unknown) (no (unknown) (unknown) Baso % (Auto) (units ( unknown) date) (0-2) % unknown) (unknown) (no (unknown) (unknown) Baso % (Auto) 1.3 (units (unknown) date) (0-2) % unknown) (unknown) (no (unknown) (unknown) Blood Pressure (units (unknown) date) 105/80 unknown) (unknown) (no (unknown) (unknown) Blood Pressure (units (unknown) date) 118/81 unknown) (unknown) (no (unknown) (unknown) Blood Pressure (units (unknown) date) 119/94 H unknown) (unknown) (no (unknown) (unknown) Blood Pressure (units (unknown) date) 120/82 unknown) (unknown) (no (unknown) (unknown) Blood Pressure (units (unknown) date) 121/81 135/82 unknown) (unknown) (no (unknown) (unknown) Blood Pressure (units (unknown) date) 122/83 128/79 unknown) (unknown) (no (unknown) (unknown) Blood Pressure (units (unknown) date) 123/79 121/83 unknown) (unknown) (no (unknown) (unknown) Blood Pressure (units (unknown) date) 125/90 unknown) (unknown) (no (unknown) (unknown) Blood Pressure (units (unknown) date) 129/84 117/83 unknown) (unknown) (no (unknown) (unknown) Blood Pressure (units (unknown) date) 131/75 unknown) (unknown) (no (unknown) (unknown) Blood Pressure (units (unknown) date) 131/85 153/82 H unknown) (unknown) (no (unknown) (unknown) Blood Pressure (units (unknown) date) 134/102 H unknown) (unknown) (no (unknown) (unknown) Blood Pressure (units (unknown) date) 134/87 unknown) (unknown) (no (unknown) (unknown) Blood Pressure (units (unknown) date) 143/81 H 10/24/22 unknown) 16:14 (unknown) (no (unknown) (unknown) Blood Pressure (units (unknown) date) 143/81 H 128/82 unknown) (unknown) (no (unknown) (unknown) Blood Pressure (units (unknown) date) 148/93 H unknown) (unknown) (no (unknown) (unknown) CARDIOVASCULAR: (units (unknown) date) See HPI unknown) (unknown) (no (unknown) (unknown) CARDIOVASCULAR: (units (unknown) date) Tachycardic and unknown) irregular rhythm without murmurs, gallops, or (unknown) (no (unknown) (unknown) CBC is (units (unkno wn) date) unremarkable unknown) (unknown) (no (unknown) (unknown) CC: Severe back (units (unknown) date) pain unknown) (unknown) (no (unknown) (unknown) CK-MB (CK-2) Rel (units (unknown) date) Index TNP unknown) (unknown) (no (unknown) (unknown) CK-MB (CK-2) Rel (units (unknown) date) Index unknown) (unknown) (no (unknown) (unknown) CK-MB (CK-2) TNP (units (unknown) date) unknown) (unknown) (no (unknown) (unknown) CK-MB (CK-2) (units (u nknown) date) unknown) (unknown) (no (unknown) (unknown) COVID serology is (units (unknown) date) negative unknown) (unknown) (no (unknown) (unknown) COVID19 -Nasal (units (unknown) date) RAPID/Pre-Proc unknown) Stat (unknown) (no (unknown) (unknown) CT chest abd pel (units (unknown) date) w con Stat unknown) (unknown) (no (unknown) (unknown) CT of the chest (units (unknown) date) abdomen and pelvis unknown) suggests new T11 compression fracture with (unknown) (no (unknown) (unknown) Calcium (units (unkno wn) date) (8.4-10.2) mg/dL unknown) (unknown) (no (unknown) (unknown) Calcium 9.0 (units (un known) date) (8.4-10.2) mg/dL unknown) (unknown) (no (unknown) (unknown) Carbon Dioxide (units (unknown) date) (22-32) mmol/L unknown) (unknown) (no (unknown) (unknown) Carbon Dioxide 23 (units (unknown) date) (22-32) mmol/L unknown) (unknown) (no (unknown) (unknown) Cardiac rhythm (units (unknown) date) post-cardioversion unknown) : NSR (unknown) (no (unknown) (unknown) Cardioversion (units ( unknown) date) unknown) (unknown) (no (unknown) (unknown) Chemistries are (units (unknown) date) reassuring unknown) (unknown) (no (unknown) (unknown) Chief Complaint: (units (unknown) date) Arrhythmia/Palpita unknown) tions (unknown) (no (unknown) (unknown) Chloride (98-107) (units (unknown) date) mmol/L unknown) (unknown) (no (unknown) (unknown) Chloride 106 (units (u nknown) date) (98-107) mmol/L unknown) (unknown) (no (unknown) (unknown) Clinical (units (unkno wn) date) Impression: unknown) (unknown) (no (unknown) (unknown) Code Status and (units (unknown) date) discussions:: Full unknown) code (unknown) (no (unknown) (unknown) Complete Blood (units (unknown) date) Count AUTO DIFF unknown) Stat (unknown) (no (unknown) (unknown) Complicating (units (u nknown) date) co-morbidities: unknown) (unknown) (no (unknown) (unknown) Complications: (units (unknown) date) none unknown) (unknown) (no (unknown) (unknown) Comprehensive (units ( unknown) date) Metabolic Panel unknown) Stat (unknown) (no (unknown) (unknown) Consent Signed: (units (unknown) date) Yes unknown) (unknown) (no (unknown) (unknown) Consent signed: (units (unknown) date) Yes unknown) (unknown) (no (unknown) (unknown) Consultation #1: (units (unknown) date) unknown) (unknown) (no (unknown) (unknown) Consultations (units ( unknown) date) unknown) (unknown) (no (unknown) (unknown) Consultations: (units (unknown) date) Orthopedics, unknown) Cardiology, pacemaker interrogation (unknown) (no (unknown) (unknown) Corroborating (units ( unknown) date) data: unknown) (unknown) (no (unknown) (unknown) Course (units (unkno wn) date) unknown) (unknown) (no (unknown) (unknown) Creatinine (units (unk nown) date) (0.66-1.25) mg/dL unknown) (unknown) (no (unknown) (unknown) Creatinine 0.80 (units (unknown) date) (0.66-1.25) mg/dL unknown) (unknown) (no (unknown) (unknown) : 1935 (units (unknown) date) Acct:[id number] unknown) (unknown) (no (unknown) (unknown) Data collected (units (unknown) date) from: patient, unknown) caregiver, Davonte. (unknown) (no (unknown) (unknown) Date of Service: (units (unknown) date) 10/24/22 unknown) (unknown) (no (unknown) (unknown) October 07 (units ( unknown) date) unknown) (unknown) (no (unknown) (unknown) Departure (units (unkn own) date) unknown) (unknown) (no (unknown) (unknown) Diagnosis: (units (unk nown) date) unknown) (unknown) (no (unknown) (unknown) Differential (units (u nknown) date) considered: unknown) Recurrent fall with new compression fractures, pain (unknown) (no (unknown) (unknown) Discharge Plan (units (unknown) date) unknown) (unknown) (no (unknown) (unknown) Discontinued (units (u nknown) date) Medications unknown) (unknown) (no (unknown) (unknown) Discussion: This (units (unknown) date) 86-year-old unknown) gentleman with 2 falls in September initial care at (unknown) (no (unknown) (unknown) Disposition: With (units (unknown) date) shared unknown) decision-making we opted to keep him in the hospital (unknown) (no (unknown) (unknown) Documented By: RL (units (unknown) date) unknown) (unknown) (no (unknown) (unknown) ECG Data (units (unkno wn) date) unknown) (unknown) (no (unknown) (unknown) ED Orders (units (unkn own) date) unknown) (unknown) (no (unknown) (unknown) ED Sedation (units (un known) date) Level: Moderate unknown) (Concious) (unknown) (no (unknown) (unknown) EKG-12 Lead (units (un known) date) Routine unknown) (unknown) (no (unknown) (unknown) EKG-12 Lead Stat (units (unknown) date) unknown) (unknown) (no (unknown) (unknown) ENT: Nose without (units (unknown) date) bleeding, purulent unknown) drainage. Throat without erythema, (unknown) (no (unknown) (unknown) ER Physician: (units ( unknown) date) Khari Walls D.O. unknown) (unknown) (no (unknown) (unknown) EXTREMITIES: No (units (unknown) date) edema or joint unknown) tenderness. (unknown) (no (unknown) (unknown) EYES: Pupils (units (u nknown) date) equal round and unknown) reactive. Extraocular motions intact. No scleral (unknown) (no (unknown) (unknown) Emergency Report (units (unknown) date) unknown) (unknown) (no (unknown) (unknown) Eos # (Auto) (units (u nknown) date) (0-450) /uL unknown) (unknown) (no (unknown) (unknown) Eos # (Auto) 200 (units (unknown) date) (0-450) /uL unknown) (unknown) (no (unknown) (unknown) Eos % (Auto) (units (u nknown) date) (2-4) % unknown) (unknown) (no (unknown) (unknown) Eos % (Auto) 2.1 (units (unknown) date) (2-4) % unknown) (unknown) (no (unknown) (unknown) Estimated GFR > (units (unknown) date) 60 (>60) mL/min unknown) (unknown) (no (unknown) (unknown) Estimated GFR (units ( unknown) date) (>60) mL/min unknown) (unknown) (no (unknown) (unknown) Exam Narrative: (units (unknown) date) unknown) (unknown) (no (unknown) (unknown) Exam documented (units (unknown) date) above, pertinent unknown) findings include: Severe lower thoracic and (unknown) (no (unknown) (unknown) Exam (units (unkno wn) date) unknown) (unknown) (no (unknown) (unknown) GASTROINTESTINAL: (units (unknown) date) Abdomen soft, unknown) non-tender, nondistended. (unknown) (no (unknown) (unknown) GASTROINTESTINAL: (units (unknown) date) Denies nausea, unknown) vomiting, abdominal pain, diarrhea, (unknown) (no (unknown) (unknown) GENERAL: Denies (units (unknown) date) chills, fatigue, unknown) malaise, fever, sweats. (unknown) (no (unknown) (unknown) GENERAL: [86] (units ( unknown) date) year old patient unknown) appears stated age. Well-developed patient, in (unknown) (no (unknown) (unknown) : Denies (units (unk n) date) dysuria, unknown) frequency, incontinence, hematuria, urinary retention. (unknown) (no (unknown) (unknown) General (units (unkno wn) date) unknown) (unknown) (no (unknown) (unknown) Glucose (80-110) (units (unknown) date) mg/dL unknown) (unknown) (no (unknown) (unknown) Glucose 89 (units (unk nown) date) (80-110) mg/dL unknown) (unknown) (no (unknown) (unknown) HEAD: Atraumatic. (units (unknown) date) Normocephalic. unknown) (unknown) (no (unknown) (unknown) HEENT: Denies (units ( unknown) date) sinus pain, ear unknown) pain, sore throat, difficulty swallowing, (unknown) (no (unknown) (unknown) HPI - (units (o wn) date) Arrhythmia/Palpita unknown) tions (unknown) (no (unknown) (unknown) HPI narrative: (units (unknown) date) unknown) (unknown) (no (unknown) (unknown) Hct (41-53) % (units ( unknown) date) unknown) (unknown) (no (unknown) (unknown) Hct 45.9 (41-53) (units (unknown) date) % unknown) (unknown) (no (unknown) (unknown) He states he has (units (unknown) date) significant pain unknown) that is worse with range of motion and (unknown) (no (unknown) (unknown) Hgb (13.5-17.5) (units (unknown) date) g/dL unknown) (unknown) (no (unknown) (unknown) Hgb 15.6 (units (unkno wn) date) (13.5-17.5) g/dL unknown) (unknown) (no (unknown) (unknown) History of (units (unk nown) date) Present Illness unknown) (unknown) (no (unknown) (unknown) Hydromorphone HCl (units (unknown) date) (Hydromorphone 0.5 unknown) Mg Inj) 0.5 mg IV NOW ONE (unknown) (no (unknown) (unknown) INR (0.9-1.3) (units ( unknown) date) unknown) (unknown) (no (unknown) (unknown) INR 1.5 H (units (unkn own) date) (0.9-1.3) unknown) (unknown) (no (unknown) (unknown) IV Propofol dose (units (unknown) date) (mg): 40 unknown) (unknown) (no (unknown) (unknown) Imaging studies (units (unknown) date) independently unknown) reviewed: Chest x-ray shows no acute changes (unknown) (no (unknown) (unknown) Independently (units ( unknown) date) reviewed EKG as unknown) above (unknown) (no (unknown) (unknown) Indication: (units (un known) date) cardioversion unknown) (unknown) (no (unknown) (unknown) Indication: (units (un known) date) unknown) (unknown) (no (unknown) (unknown) Initial Vital (units ( unknown) date) Signs unknown) (unknown) (no (unknown) (unknown) Initial Vital (units ( unknown) date) Signs: unknown) (unknown) (no (unknown) (unknown) Initially seen at (units (unknown) date) [facility] unknown) Emergency Department and follow-up outpatient (unknown) (no (unknown) (unknown) Interpretation: (units (unknown) date) unknown) (unknown) (no (unknown) (unknown) Intraservice (units (u nknown) date) time/total unknown) sedation time (min): 10 (unknown) (no (unknown) (unknown) [facility] (units (unknown) date) [address] unknown) [place] [address] (unknown) (no (unknown) (unknown) Joules used: 120 (units (unknown) date) unknown) (unknown) (no (unknown) (unknown) Lab Data (units (unkno wn) date) unknown) (unknown) (no (unknown) (unknown) Lab Results (units (un known) date) unknown) (unknown) (no (unknown) (unknown) Lab Test results (units (unknown) date) independently unknown) reviewed as above. Pertinent findings: (unknown) (no (unknown) (unknown) Labs: (units (unkno wn) date) unknown) (unknown) (no (unknown) (unknown) Last Admin: (units (un known) date) 10/24/22 16:53 unknown) Dose: 324 mg (unknown) (no (unknown) (unknown) Last Admin: (units (un known) date) 10/24/22 17:42 unknown) Dose: 40 mg (unknown) (no (unknown) (unknown) Lipase (23-300) (units (unknown) date) U/L unknown) (unknown) (no (unknown) (unknown) Lipase 169 (units (unk nown) date) (23-300) U/L unknown) (unknown) (no (unknown) (unknown) Lipase Stat (units (un known) date) unknown) (unknown) (no (unknown) (unknown) Lymph # (Auto) (units (unknown) date) ([phone]) /uL unknown) (unknown) (no (unknown) (unknown) Lymph # (Auto) (units (unknown) date) 2300 ([id number]) unknown) /uL (unknown) (no (unknown) (unknown) Lymph % (Auto) (units (unknown) date) (25-40) % unknown) (unknown) (no (unknown) (unknown) Lymph % (Auto) (units (unknown) date) 22.0 L (25-40) % unknown) (unknown) (no (unknown) (unknown) MCH (26-34) PG (units (unknown) date) unknown) (unknown) (no (unknown) (unknown) MCH 33.9 (26-34) (units (unknown) date) PG unknown) (unknown) (no (unknown) (unknown) MCHC (30-36) % (units (unknown) date) unknown) (unknown) (no (unknown) (unknown) MCHC 34.1 (30-36) (units (unknown) date) % unknown) (unknown) (no (unknown) (unknown) MCV (80-100) fL (units (unknown) date) unknown) (unknown) (no (unknown) (unknown) MCV 99.4 (80-100) (units (unknown) date) fL unknown) (unknown) (no (unknown) (unknown) MDM - (units (unkno wn) date) Arrhythmia/Palpita unknown) tions (unknown) (no (unknown) (unknown) MDM Narrative (units ( unknown) date) unknown) (unknown) (no (unknown) (unknown) MUSCULOSKELETAL: (units (unknown) date) See HPI unknown) (unknown) (no (unknown) (unknown) Magnesium (units (unkn own) date) (1.6-2.3) mg/dL unknown) (unknown) (no (unknown) (unknown) Magnesium 1.9 (units ( unknown) date) (1.6-2.3) mg/dL unknown) (unknown) (no (unknown) (unknown) Magnesium Stat (units (unknown) date) unknown) (unknown) (no (unknown) (unknown) Mallampati Airway (units (unknown) date) Classification: unknown) Class II (unknown) (no (unknown) (unknown) Medical decision (units (unknown) date) making narrative: unknown) (unknown) (no (unknown) (unknown) Medical records (units (unknown) date) reviewed: No unknown) additional medical records are available (unknown) (no (unknown) (unknown) Mode of arrival: (units (unknown) date) Family Vehicle unknown) (unknown) (no (unknown) (unknown) Brule # (Auto) (units ( unknown) date) (0-900) /uL unknown) (unknown) (no (unknown) (unknown) Brule # (Auto) (units ( unknown) date) 1100 H (0-900) /uL unknown) (unknown) (no (unknown) (unknown) Brule % (Auto) (units ( unknown) date) (3-14) % unknown) (unknown) (no (unknown) (unknown) Brule % (Auto) (units ( unknown) date) 11.0 (3-14) % unknown) (unknown) (no (unknown) (unknown) NECK: Trachea (units ( unknown) date) midline. Non unknown) tender (unknown) (no (unknown) (unknown) NEURO: AOx3. (units (u nknown) date) unknown) (unknown) (no (unknown) (unknown) NEUROLOGIC: See (units (unknown) date) HPI unknown) (unknown) (no (unknown) (unknown) Narrative (units (unkn own) date) unknown) (unknown) (no (unknown) (unknown) Narrative: (units (unk nown) date) unknown) (unknown) (no (unknown) (unknown) Neut # (Auto) (units ( unknown) date) (1487-3600) /uL unknown) (unknown) (no (unknown) (unknown) Neut # (Auto) (units ( unknown) date) 6500 ([id number]) unknown) /uL (unknown) (no (unknown) (unknown) Neut % (Auto) (units ( unknown) date) (50-75) % unknown) (unknown) (no (unknown) (unknown) Neut % (Auto) (units ( unknown) date) 63.6 (50-75) % unknown) (unknown) (no (unknown) (unknown) Nonspecific ST T (units (unknown) date) wave changes unknown) (unknown) (no (unknown) (unknown) Number of (units (unkn own) date) attempts (shocks): unknown) 1 (unknown) (no (unknown) (unknown) Occasional tele (units (unknown) date) episodes of wide unknown) complex beats that are paste and asymptomatic (unknown) (no (unknown) (unknown) Ordered: (units (unkno wn) date) unknown) (unknown) (no (unknown) (unknown) Orders (units (unkno wn) date) unknown) (unknown) (no (unknown) (unknown) Oxygen Delivery (units (unknown) date) Method 10/24/22 unknown) 16:14 (unknown) (no (unknown) (unknown) Oxygen Delivery (units (unknown) date) Method Room Air unknown) (unknown) (no (unknown) (unknown) Oxygen Delivery (units (unknown) date) Method unknown) (unknown) (no (unknown) (unknown) PSYCHIATRIC: No (units (unknown) date) concerning unknown) psychosocial issues. (unknown) (no (unknown) (unknown) PT (10.1-12.7) (units (unknown) date) SECONDS unknown) (unknown) (no (unknown) (unknown) PT 17.4 H (units (unkn own) date) (10.1-12.7) unknown) SECONDS (unknown) (no (unknown) (unknown) Partial (units (unkno wn) date) Thromboplastin unknown) Time Stat (unknown) (no (unknown) (unknown) Patient (units ( wn) date) Disposition: unknown) Admitted as Observation (unknown) (no (unknown) (unknown) Patient History (units (unknown) date) unknown) (unknown) (no (unknown) (unknown) Patient Tolerated (units (unknown) date) Procedure: Well unknown) (unknown) (no (unknown) (unknown) Patient converted (units (unknown) date) as noted above, unknown) however 2 episodes of nonsustained V-tach in (unknown) (no (unknown) (unknown) Patient: (units ( wn) date) Nicolas Neely unknown) MR#: [id number] (unknown) (no (unknown) (unknown) Plt Count (units ( own) date) (150-400) X103/uL unknown) (unknown) (no (unknown) (unknown) Plt Count 218 (units ( unknown) date) (150-400) X103/uL unknown) (unknown) (no (unknown) (unknown) Post (units ( wn) date) cardioversion unknown) sinus rhythm with sinus arrhythmia at a rate of 88 (unknown) (no (unknown) (unknown) Potassium (units ( own) date) (3.4-5.1) mmol/L unknown) (unknown) (no (unknown) (unknown) Potassium 3.8 (units ( unknown) date) (3.4-5.1) mmol/L unknown) (unknown) (no (unknown) (unknown) Preparation: (units (u ) date) monitoring and evaluation advisor unknown) applied, pulse oximeter, capnometry used, (unknown) (no (unknown) (unknown) Procedural (units () date) Sedation unknown) (unknown) (no (unknown) (unknown) Procedures (units (k n) date) unknown) (unknown) (no (unknown) (unknown) Propofol (units () date) (Propofol 200 unknown) Mg/20 Ml Vial) 70 mg 1 mg/kg (70 mg) IV NOW ONE (unknown) (no (unknown) (unknown) Prothrombin Time (units (unknown) date) INR Stat unknown) (unknown) (no (unknown) (unknown) Protocol (units (unkno wn) date) unknown) (unknown) (no (unknown) (unknown) Pulse Oximetry 94 (units (unknown) date) unknown) (unknown) (no (unknown) (unknown) Pulse Oximetry 95 (units (unknown) date) 95 unknown) (unknown) (no (unknown) (unknown) Pulse Oximetry 95 (units (unknown) date) 96 unknown) (unknown) (no (unknown) (unknown) Pulse Oximetry 95 (units (unknown) date) unknown) (unknown) (no (unknown) (unknown) Pulse Oximetry 96 (units (unknown) date) 95 unknown) (unknown) (no (unknown) (unknown) Pulse Oximetry 96 (units (unknown) date) 97 unknown) (unknown) (no (unknown) (unknown) Pulse Oximetry 96 (units (unknown) date) unknown) (unknown) (no (unknown) (unknown) Pulse Oximetry 97 (units (unknown) date) 10/24/22 16:14 unknown) (unknown) (no (unknown) (unknown) Pulse Oximetry 97 (units (unknown) date) 97 unknown) (unknown) (no (unknown) (unknown) Pulse Oximetry 98 (units (unknown) date) 99 unknown) (unknown) (no (unknown) (unknown) Pulse Oximetry 98 (units (unknown) date) unknown) (unknown) (no (unknown) (unknown) Pulse Rate 133 H (units (unknown) date) unknown) (unknown) (no (unknown) (unknown) Pulse Rate 135 H (units (unknown) date) 10/24/22 16:14 unknown) (unknown) (no (unknown) (unknown) Pulse Rate 135 H (units (unknown) date) 118 H unknown) (unknown) (no (unknown) (unknown) Pulse Rate 135 H (units (unknown) date) 130 H unknown) (unknown) (no (unknown) (unknown) Pulse Rate 136 H (units (unknown) date) 131 H unknown) (unknown) (no (unknown) (unknown) Pulse Rate 138 H (units (unknown) date) 140 H unknown) (unknown) (no (unknown) (unknown) Pulse Rate 143 H (units (unknown) date) 136 H unknown) (unknown) (no (unknown) (unknown) Pulse Rate 85 86 (units (unknown) date) unknown) (unknown) (no (unknown) (unknown) Pulse Rate 85 (units ( unknown) date) unknown) (unknown) (no (unknown) (unknown) Pulse Rate 86 (units ( unknown) date) unknown) (unknown) (no (unknown) (unknown) Pulse Rate 87 84 (units (unknown) date) unknown) (unknown) (no (unknown) (unknown) Pulse Rate 87 89 (units (unknown) date) unknown) (unknown) (no (unknown) (unknown) Pulse Rate 88 89 (units (unknown) date) unknown) (unknown) (no (unknown) (unknown) Pulse Rate 90 85 (units (unknown) date) unknown) (unknown) (no (unknown) (unknown) Pulse Rate 90 (units ( unknown) date) unknown) (unknown) (no (unknown) (unknown) RBC (4.5-5.9) (units ( unknown) date) X106/uL unknown) (unknown) (no (unknown) (unknown) RBC 4.62 (units (unkno wn) date) (4.5-5.9) X106/uL unknown) (unknown) (no (unknown) (unknown) RDW (11.6-14.8) % (units (unknown) date) unknown) (unknown) (no (unknown) (unknown) RDW 14.5 (units (unkno wn) date) (11.6-14.8) % unknown) (unknown) (no (unknown) (unknown) RESPIRATORY: Clear (units (unknown) date) to auscultation. unknown) Breath sounds equal bilaterally. No wheezes, (unknown) (no (unknown) (unknown) RESPIRATORY: See (units (unknown) date) HPI unknown) (unknown) (no (unknown) (unknown) Re-evaluations:84 (units (unknown) date) 5pm patient is unknown) re-evaluated in independently examined by me. (unknown) (no (unknown) (unknown) Reevaluation #1: (units (unknown) date) unknown) (unknown) (no (unknown) (unknown) Reevaluation(s) (units (unknown) date) unknown) (unknown) (no (unknown) (unknown) Respiratory Rate (units (unknown) date) 11 L unknown) (unknown) (no (unknown) (unknown) Respiratory Rate (units (unknown) date) 13 10 L unknown) (unknown) (no (unknown) (unknown) Respiratory Rate (units (unknown) date) 14 14 unknown) (unknown) (no (unknown) (unknown) Respiratory Rate (units (unknown) date) 14 21 unknown) (unknown) (no (unknown) (unknown) Respiratory Rate (units (unknown) date) 14 unknown) (unknown) (no (unknown) (unknown) Respiratory Rate (units (unknown) date) 15 13 unknown) (unknown) (no (unknown) (unknown) Respiratory Rate (units (unknown) date) 15 16 unknown) (unknown) (no (unknown) (unknown) Respiratory Rate (units (unknown) date) 15 unknown) (unknown) (no (unknown) (unknown) Respiratory Rate (units (unknown) date) 16 17 unknown) (unknown) (no (unknown) (unknown) Respiratory Rate (units (unknown) date) 18 12 unknown) (unknown) (no (unknown) (unknown) Respiratory Rate (units (unknown) date) 18 unknown) (unknown) (no (unknown) (unknown) Respiratory Rate (units (unknown) date) 19 10/24/22 16:14 unknown) (unknown) (no (unknown) (unknown) Respiratory Rate (units (unknown) date) 19 22 unknown) (unknown) (no (unknown) (unknown) Respiratory Rate (units (unknown) date) 20 13 unknown) (unknown) (no (unknown) (unknown) Respiratory Rate (units (unknown) date) 23 15 unknown) (unknown) (no (unknown) (unknown) Result diagrams: (units (unknown) date) unknown) (unknown) (no (unknown) (unknown) Review of Systems (units (unknown) date) unknown) (unknown) (no (unknown) (unknown) SARS-CoV-2 (PCR) (units (unknown) date) (Negative) unknown) (unknown) (no (unknown) (unknown) SARS-CoV-2 (PCR) (units (unknown) date) Negative unknown) (Negative) (unknown) (no (unknown) (unknown) SKIN: Denies (units (u nknown) date) rash, skin unknown) lesions, or other (unknown) (no (unknown) (unknown) SKIN: No rash or (units (unknown) date) erythema of unknown) visible areas (unknown) (no (unknown) (unknown) Signed By: (units (unk nown) date) unknown) (unknown) (no (unknown) (unknown) Sebastian orthopedic (units (unknown) date) surgeon who also unknown) feels that the T11 fracture is new. (unknown) (no (unknown) (unknown) Sebastian, she is not (units (unknown) date) feel that urgent unknown) transfer or orthopedic/Neurosu rgery were (unknown) (no (unknown) (unknown) Smoking Status: (units (unknown) date) Never smoker unknown) (unknown) (no (unknown) (unknown) Social (units (unkno wn) date) Determinants of unknown) Health that impact treatment or disposition: age, (unknown) (no (unknown) (unknown) Social History (units (unknown) date) unknown) (unknown) (no (unknown) (unknown) Sodium (137-145) (units (unknown) date) mmol/L unknown) (unknown) (no (unknown) (unknown) Sodium 139 (units (unk nown) date) (137-145) mmol/L unknown) (unknown) (no (unknown) (unknown) Source: patient (units (unknown) date) unknown) (unknown) (no (unknown) (unknown) Stability: Stable (units (unknown) date) unknown) (unknown) (no (unknown) (unknown) Stated Complaint: (units (unknown) date) Back pain unknown) (unknown) (no (unknown) (unknown) Stop: 10/24/22 (units (unknown) date) 16:29 unknown) (unknown) (no (unknown) (unknown) Stop: 10/24/22 (units (unknown) date) 17:28 unknown) (unknown) (no (unknown) (unknown) Stop: 10/24/22 (units (unknown) date) 18:31 unknown) (unknown) (no (unknown) (unknown) Stop: 10/24/22 (units (unknown) date) 20:13 unknown) (unknown) (no (unknown) (unknown) Temperature 98.2 (units (unknown) date) F 10/24/22 16:14 unknown) (unknown) (no (unknown) (unknown) Temperature 98.2 (units (unknown) date) F unknown) (unknown) (no (unknown) (unknown) Temperature (units (un known) date) unknown) (unknown) (no (unknown) (unknown) Time Seen by (units (u nknown) date) Provider: 10/24/22 unknown) 16:34 (unknown) (no (unknown) (unknown) Time out (units (unkno wn) date) performed: Yes unknown) (unknown) (no (unknown) (unknown) Total Bilirubin (units (unknown) date) (0.2-1.3) mg/dL unknown) (unknown) (no (unknown) (unknown) Total Bilirubin (units (unknown) date) 1.1 (0.2-1.3) unknown) mg/dL (unknown) (no (unknown) (unknown) Total Creatine (units (unknown) date) Kinase < 20 L unknown) (55-170) U/L (unknown) (no (unknown) (unknown) Total Creatine (units (unknown) date) Kinase (55-170) unknown) U/L (unknown) (no (unknown) (unknown) Total Protein (units ( unknown) date) (6.3-8.2) g/dL unknown) (unknown) (no (unknown) (unknown) Total Protein 7.9 (units (unknown) date) (6.3-8.2) g/dL unknown) (unknown) (no (unknown) (unknown) Treatment and (units ( unknown) date) disposition unknown) (unknown) (no (unknown) (unknown) Treatments: (units (un known) date) Cardioversion, unknown) pain control, hospital admission (unknown) (no (unknown) (unknown) Troponin + CK (units ( unknown) date) Cardiac Panel Stat unknown) (unknown) (no (unknown) (unknown) Troponin I < (units (u nknown) date) 0.012 (0.01-0.034) unknown) ng/mL (unknown) (no (unknown) (unknown) Troponin I (units (unk nown) date) (0.01-0.034) ng/mL unknown) (unknown) (no (unknown) (unknown) Uncontrolled (units (u nknown) date) pain, Closed wedge unknown) compression fracture of T11 vertebra, Spinal (unknown) (no (unknown) (unknown) [facility] (units (unknown) date) follow-up with unknown) orthopedic spine surgeon and follow-up (unknown) (no (unknown) (unknown) Vital Signs - 8 (units (unknown) date) hr unknown) (unknown) (no (unknown) (unknown) Vital Signs (units (un known) date) unknown) (unknown) (no (unknown) (unknown) Vital signs: (units (u nknown) date) unknown) (unknown) (no (unknown) (unknown) WBC (4.5-11.0) (units (unknown) date) X103/uL unknown) (unknown) (no (unknown) (unknown) WBC 10.3 (units (unkno wn) date) (4.5-11.0) X103/uL unknown) (unknown) (no (unknown) (unknown) XR chest 1V Stat (units (unknown) date) unknown) (unknown) (no (unknown) (unknown) [Embedded Image (units (unknown) date) Not Available] unknown) (unknown) (no (unknown) (unknown) alcohol intake (units (unknown) date) frequency: unknown) holidays/special occasions only (unknown) (no (unknown) (unknown) atrial (units (unkno wn) date) fibrillation. unknown) Additional trauma not previously identified (unknown) (no (unknown) (unknown) but primarily due (units (unknown) date) to severe midline unknown) low back pain. He had 2 falls, the most (unknown) (no (unknown) (unknown) comorbidities an (units (unknown) date) orthopedic unknown) consultation with Physical therapy evaluation (unknown) (no (unknown) (unknown) complications (units ( unknown) date) including unknown) significant compression fractures with spinal stenosis (unknown) (no (unknown) (unknown) compression (units (un known) date) fracture which unknown) likely prompted the ER visit today with increase in (unknown) (no (unknown) (unknown) constipation, (units ( unknown) date) melena. unknown) (unknown) (no (unknown) (unknown) currently (units (unkn own) date) anticoagulated on unknown) Xarelto. Presented with atrial fibrillation with (unknown) (no (unknown) (unknown) discussed with (units (unknown) date) Dr. Renee (on unknown) call Cardio), no indication for amio at this (unknown) (no (unknown) (unknown) dizziness. (units (unk nown) date) unknown) (unknown) (no (unknown) (unknown) exacerbating his (units (unknown) date) cardiac issues and unknown) causing increased episodes of paroxysmal (unknown) (no (unknown) (unknown) exacerbation of (units (unknown) date) chronic issue with unknown) uncertain prognosis, life-threatening (unknown) (no (unknown) (unknown) facility noting (units (unknown) date) multilevel unknown) osteopenic compression fractures with retropulsed (unknown) (no (unknown) (unknown) fibrillation on (units (unknown) date) arrival unknown) (unknown) (no (unknown) (unknown) for pain control, (units (unknown) date) hospitalist unknown) evaluation regarding his multiple medical (unknown) (no (unknown) (unknown) fracture segment (units (unknown) date) at L1 resulting in unknown) moderate central stenosis. He denies any (unknown) (no (unknown) (unknown) frequently short (units (unknown) date) of breath but unknown) admits that the majority of his day is consume (unknown) (no (unknown) (unknown) given injections (units (unknown) date) that were somewhat unknown) helpful and has a follow-up appointment on (unknown) (no (unknown) (unknown) had any (units (unkno wn) date) additional falls unknown) since prior imaging. 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 with no (unknown) (no (unknown) (unknown) icterus. No (units (un known) date) injection or unknown) drainage. (unknown) (no (unknown) (unknown) improves with (units ( unknown) date) rest. He denies unknown) any chest pain but does state that he is (unknown) (no (unknown) (unknown) in the lumbar (units ( unknown) date) spine. No unknown) additional details regarding the falls are available. (unknown) (no (unknown) (unknown) inability to (units (u nknown) date) function at home unknown) due to pain. Has a friend, Davonte Mejia (unknown) (no (unknown) (unknown) into atrial (units (un known) date) fibrillation and unknown) is developing an ileus. CT scan suggest new T11 (unknown) (no (unknown) (unknown) is no evidence of (units (unknown) date) cauda equina unknown) syndrome. The lumbar compression fractures and (unknown) (no (unknown) (unknown) lumbar back pain (units (unknown) date) with pain unknown) significant enough he is unable to roll over. Atrial (unknown) (no (unknown) (unknown) many years, (units (un known) date) pacemaker unknown) placement for sick sinus syndrome, history of ventricular (unknown) (no (unknown) (unknown) multiple (units (unkno wn) date) compression unknown) fractures and disc compression with spinal stenosis (unknown) (no (unknown) (unknown) not recommend (units ( unknown) date) amiodarone but did unknown) recommend continued anticoagulation. Pacemaker (unknown) (no (unknown) (unknown) note that he had (units (unknown) date) 6 minutes of unknown) atrial fibrillation documented yesterday. There (unknown) (no (unknown) (unknown) notice of rapid (units (unknown) date) rhythm nor the unknown) electrical cardioversion that occurred. They do (unknown) (no (unknown) (unknown) numbness, (units (unkn own) date) tingling or unknown) weakness, denies any loss of control of bowel or bladder. (unknown) (no (unknown) (unknown) obvious distress. (units (unknown) date) Complaining of low unknown) back pain (unknown) (no (unknown) (unknown) palpitations, (units ( unknown) date) chest pain or unknown) shortness of breath this. (unknown) (no (unknown) (unknown) patient. Given (units (unknown) date) his paroxysmal unknown) AFib that has been cardioverted, Cardiology did (unknown) (no (unknown) (unknown) potential (units (unkn own) date) unknown) (unknown) (no (unknown) (unknown) rales, or (units (unkn own) date) rhonchi. unknown) (unknown) (no (unknown) (unknown) rapid atrial fib (units (unknown) date) unknown) (unknown) (no (unknown) (unknown) rapid ventricular (units (unknown) date) response was unknown) treated with single shock and converted back to (unknown) (no (unknown) (unknown) recent of which (units (unknown) date) was in the end of unknown) September and has advanced imaging from our (unknown) (no (unknown) (unknown) required. She did (units (unknown) date) agree that unknown) hospitalization for pain control, physical therapy (unknown) (no (unknown) (unknown) rescheduled (units (un known) date) presents with unknown) severe pain such that I believe he has put himself (unknown) (no (unknown) (unknown) rubs. (units (unkno wn) date) unknown) (unknown) (no (unknown) (unknown) severe spinal (units (u nknown) date) stenosis does not unknown) appear worse today in comparison to CT scan from (unknown) (no (unknown) (unknown) significant (units (un known) date) enough that is unknown) causing ileus and pain significant enough that it is (unknown) (no (unknown) (unknown) sinus rhythm with (units (unknown) date) episodes of paced unknown) rhythm intermittently. Problem is (unknown) (no (unknown) (unknown) stenosis of (units (un known) date) lumbar region, unknown) Atrial fibrillation with rapid ventricular response (unknown) (no (unknown) (unknown) supplemental O2 (units (unknown) date) applied, unknown) suction/airway equipment at bedside and IV secured (unknown) (no (unknown) (unknown) tachycardia (units (un known) date) presents for unknown) evaluation episodes of shortness of breath and fatigue (unknown) (no (unknown) (unknown) the . This (units (unknown) date) problem is new, unknown) uncertain prognosis with life-threatening (unknown) (no (unknown) (unknown) the aftermath (units ( unknown) date) measuring 8 and 10 unknown) beats a piece, patient did not have any (unknown) (no (unknown) (unknown) the overall (units (un known) date) severity of pain. unknown) Patient and his caregiver confirm that he has not (unknown) (no (unknown) (unknown) throughout the (units (unknown) date) lumbar spine. This unknown) is reviewed in real-time with Dr. Crook (unknown) (no (unknown) (unknown) time, consult (units ( unknown) date) with [facility] unknown) (unknown) (no (unknown) (unknown) tomorrow (units (unkno wn) date) unknown) (unknown) (no (unknown) (unknown) tonsillar (units (unkn own) date) hypertrophy or unknown) exudate. Airway patent. (unknown) (no (unknown) (unknown) with with (units (unknown) date) lumbar and unknown) cervical spine CTs ordered. Patient said he was (unknown) (no (unknown) (unknown) with severe pain (units (unknown) date) unknown) (unknown) (no (unknown) (unknown) would be (units (unkno wn) date) appropriate. Will unknown) review with the hospitalist service to admit the Result panel 250 (unknown) (no date) (unknown) (unknown) > 60 ml/min (unkn own) (unknown) (no date) (unknown) (unknown) > 60 ml/min (unkn own) (unknown) (no date) (unknown) (unknown) < 0.012 ng/ml (unkn own) (unknown) (no date) (unknown) (unknown) < 0.012 ng/ml (unkn own) (unknown) (no date) (unknown) (unknown) < 20 u/l (unkn own) (unknown) (no date) (unknown) (unknown) 0.80 mg/dl (unkn own) (unknown) (no date) (unknown) (unknown) 0.9 (units (unkn own) unknown) (unknown) (no date) (unknown) (unknown) 1.1 mg/dl (unkn own) (unknown) (no date) (unknown) (unknown) 1.9 mg/dl (unkn own) (unknown) (no date) (unknown) (unknown) 106 mmol/l (unkn own) (unknown) (no date) (unknown) (unknown) 108 u/l (unkn own) (unknown) (no date) (unknown) (unknown) 11.3 (units (unkn own) unknown) (unknown) (no date) (unknown) (unknown) 139 mmol/l (unkn own) (unknown) (no date) (unknown) (unknown) 169 u/l (unkn own) (unknown) (no date) (unknown) (unknown) 23 mmol/l (unkn own) (unknown) (no date) (unknown) (unknown) 27 iu/l (unkn own) (unknown) (no date) (unknown) (unknown) 3.7 g/dl (unkn own) (unknown) (no date) (unknown) (unknown) 3.8 mmol/l (unkn own) (unknown) (no date) (unknown) (unknown) 32 iu/l (unkn own) (unknown) (no date) (unknown) (unknown) 4.2 g/dl (unkn own) (unknown) (no date) (unknown) (unknown) 7.9 g/dl (unkn own) (unknown) (no date) (unknown) (unknown) 89 mg/dl (unkn own) (unknown) (no date) (unknown) (unknown) 89 mg/dl (unkn own) (unknown) (no date) (unknown) (unknown) 9 mg/dl (unkn own) (unknown) (no date) (unknown) (unknown) 9.0 mg/dl (unkn own) (unknown) (no date) (unknown) (unknown) Test not % (unkn own) performed (unknown) (no date) (unknown) (unknown) Test not % (unkn own) performed (unknown) (no date) (unknown) (unknown) Test not ng/ml (unkn own) performed (unknown) (no date) (unknown) (unknown) Test not ng/ml (unkn own) performed Result panel 251 (unknown) (no (unknown) (unknown) (no value) (units (unk nown) date) unknown) (unknown) (no (unknown) (unknown) +---------+ [phone] (uni ts (unknown) date) +--------- unknown) (unknown) (no (unknown) (unknown) +---------+ Hospital (uni ts (unknown) date) +--------- unknown) (unknown) (no (unknown) (unknown) + (uni ts (unknown) date) unknown) (unknown) (no (unknown) (unknown) +/- 5%. There are no (uni ts (unknown) date) focal wall motion unknown) abnormalities. Diastolic parameters (unknown) (no (unknown) (unknown) [id number] (units (unkno wn) date) unknown) (unknown) (no (unknown) (unknown) 10/24/22 (units (unkno wn) date) unknown) (unknown) (no (unknown) (unknown) [address] (units (unknown) date) unknown) (unknown) (no (unknown) (unknown) : : [address] : (unit s (unknown) date) : unknown) (unknown) (no (unknown) (unknown) : : [address] : : (units ( unknown) date) unknown) (unknown) (no (unknown) (unknown) : : [place] : (unit s (unknown) date) : unknown) (unknown) (no (unknown) (unknown) : : Phone: [phone] : : (unit s (unknown) date) unknown) (unknown) (no (unknown) (unknown) :Account #: (units (un known) date) [id number] Gender: unknown) Male BSA: 1.8 m2 : (unknown) (no (unknown) (unknown) :: 1935 (units (unknown) date) Age: 86 yrs BP: unknown) 145/96 mmHg: (unknown) (no (unknown) (unknown) :[facility] MRN #: (units (unknown) date) [id number] unknown) ReadingLocation: Weight: 150 lb : (unknown) (no (unknown) (unknown) :ANA MARIA Performed (units (unknown) date) By: Li Altman : unknown) (unknown) (no (unknown) (unknown) :Name: FLORINDA (units (unknown) date) NICOLAS Study Date: unknown) 10/25/2022 Height: 68 in : (unknown) (no (unknown) (unknown) :Ordering Physician: (uni ts (unknown) date) JORDAN, : unknown) (unknown) (no (unknown) (unknown) :Reason For Study: (units (unknown) date) AFIB WITH RVR-PACER unknown) UNRECOGNIZED : (unknown) (no (unknown) (unknown) :Referring: (units (un known) date) ANA MARIA ORTEGA : unknown) (unknown) (no (unknown) (unknown) AI P1/2t: 1121 msec (unit s (unknown) date) unknown) (unknown) (no (unknown) (unknown) AI dec slope: 118.3 (unit s (unknown) date) cm/sec2 unknown) (unknown) (no (unknown) (unknown) sev ratio: 0.66 (units (unknown) date) unknown) (unknown) (no (unknown) (unknown) JUAN FRANCISCO indexed to BSA (units (unknown) date) (cm2/m2): 1.3 unknown) (unknown) (no (unknown) (unknown) Accession Number: (units (unknown) date) [id number] unknown) (unknown) (no (unknown) (unknown) Age/Sex: 86 / M Date (uni ts (unknown) date) of Service: unknown) (unknown) (no (unknown) (unknown) [place] [address] (unit s (unknown) date) unknown) (unknown) (no (unknown) (unknown) Ao V2 VTI: 23.1 cm (units (unknown) date) JUAN FRANCISCO(V,D): 2.5 cm2 unknown) (unknown) (no (unknown) (unknown) Ao V2 max: 115.2 (units (unknown) date) cm/sec LVOT Max Jose J: unknown) 81.4 cm/sec (unknown) (no (unknown) (unknown) Ao V2 mean: 80.2 (units (unknown) date) cm/sec LV V1 max PG: unknown) 2.7 mmHg (unknown) (no (unknown) (unknown) Ao max P.3 mmHg (unit s (unknown) date) LV V1 VTI: 15.3 cm unknown) (unknown) (no (unknown) (unknown) Ao mean P.9 mmHg (uni ts (unknown) date) JUAN FRANCISCO(I,D): 2.4 cm2 unknown) (unknown) (no (unknown) (unknown) Aortic Valve: The (units (unknown) date) aortic valve is unknown) trileaflet. The aortic valve is slightly (unknown) (no (unknown) (unknown) Atria: The left (units (unknown) date) atrium is severely unknown) dilated. There is a catheter/pacemaker (unknown) (no (unknown) (unknown) : 1935 (units (unknown) date) Acct:[id number] unknown) (unknown) (no (unknown) (unknown) Diastolic parameters (uni ts (unknown) date) suggest a unknown) pseudonormalization pattern, consistent with (unknown) (no (unknown) (unknown) Doppler Measurements (uni ts (unknown) date) + Calculations unknown) (unknown) (no (unknown) (unknown) E/E' lat: 7.6 (units ( unknown) date) unknown) (unknown) (no (unknown) (unknown) E/E' med: 11.0 PA (units (unknown) date) mean P.3 mmHg unknown) (unknown) (no (unknown) (unknown) E/e' average: 9.3 (units (unknown) date) unknown) (unknown) (no (unknown) (unknown) Echocardiogram (units (unknown) date) Report unknown) (unknown) (no (unknown) (unknown) Echocardiography (units (unknown) date) Report unknown) (unknown) (no (unknown) (unknown) Electronically (units (unknown) date) signed by: Millicent Renee on 10/25/2022 (unknown) (no (unknown) (unknown) FS: 23.3 % asc Aorta (uni ts (unknown) date) Diam: 3.9 cm unknown) (unknown) (no (unknown) (unknown) Great Vessels: The (units (unknown) date) aortic root is mildly unknown) dilated. The ascending aorta is (unknown) (no (unknown) (unknown) IVSd: 0.88 cm Ao (units (unknown) date) Arch Diam (Prox unknown) Trans): 2.6 cm (unknown) (no (unknown) (unknown) Interpretation (units (unknown) date) Summary unknown) (unknown) (no (unknown) (unknown) [facility] (units (unknown) date) unknown) (unknown) (no (unknown) (unknown) [place] (units (unkno wn) date) unknown) (unknown) (no (unknown) (unknown) LA A2 area: 25.1 cm2 (uni ts (unknown) date) RA long axis: 7.1 cm unknown) (unknown) (no (unknown) (unknown) LA A4 area: 24.2 cm2 (uni ts (unknown) date) RA area: 27.2 cm2 unknown) (unknown) (no (unknown) (unknown) LA length (vol): 6.1 (uni ts (unknown) date) cm RA vol: 88.7 ml unknown) (unknown) (no (unknown) (unknown) LA vol index: 47.0 (units (unknown) date) ml/m2 IVC diam: 1.4 unknown) cm (unknown) (no (unknown) (unknown) LA vol: 85.0 ml RA (units (unknown) date) : 49.0 ml/m2 unknown) (unknown) (no (unknown) (unknown) LV martin. (units (unkno wn) date) diameter/BSA (cm/m2): unknown) 2.7 (unknown) (no (unknown) (unknown) LV sys. diameter/BSA (uni ts (unknown) date) (cm/m2): 2.1 unknown) (unknown) (no (unknown) (unknown) LVIDd: 5.0 cm LVOT (units (unknown) date) diam: 2.1 cm unknown) (unknown) (no (unknown) (unknown) LVIDs: 3.8 cm Ao (units (unknown) date) root diam: 4.4 cm unknown) (unknown) (no (unknown) (unknown) LVPWd: 0.88 cm (units (unknown) date) unknown) (unknown) (no (unknown) (unknown) Lat Peak E' Jose J: 8.8 (uni ts (unknown) date) cm/sec PA pr(Accel): unknown) 41.3 mmHg (unknown) (no (unknown) (unknown) Left Ventricle: The (unit s (unknown) date) left ventricle is unknown) normal in size and wall thickness. (unknown) (no (unknown) (unknown) Left ventricular (units (unknown) date) ejection fraction is unknown) estimated to be 50 +/- 5%. (unknown) (no (unknown) (unknown) Loc: AC 213-1 (units ( unknown) date) unknown) (unknown) (no (unknown) (unknown) MMode/2D (units (unkno wn) date) Measurements + unknown) Calculations (unknown) (no (unknown) (unknown) MR ERO: 0.10 cm2 (units (unknown) date) unknown) (unknown) (no (unknown) (unknown) MR PISA radius: 0.46 (uni ts (unknown) date) cm unknown) (unknown) (no (unknown) (unknown) MR PISA: 1.3 cm2 (units (unknown) date) SV(LVOT): 54.7 ml unknown) (unknown) (no (unknown) (unknown) MR flow rate: 57.3 (units (unknown) date) cm3/sec unknown) (unknown) (no (unknown) (unknown) MV A max jose j: 33.5 (units (unknown) date) cm/sec TR max PG: unknown) 27.4 mmHg (unknown) (no (unknown) (unknown) MV E max jose j: 66.4 (units (unknown) date) cm/sec TR max jose j: unknown) 261.2 cm/sec (unknown) (no (unknown) (unknown) MV E/A: 2.0 PA V2 (units (unknown) date) max: 80.9 cm/sec unknown) (unknown) (no (unknown) (unknown) MV dec time: 0.17 (units (unknown) date) sec unknown) (unknown) (no (unknown) (unknown) Med Peak E' Jose J: 6.0 (uni ts (unknown) date) cm/sec PA V2 mean: unknown) 52.1 cm/sec (unknown) (no (unknown) (unknown) Mitral Valve: There (unit s (unknown) date) is mild mitral unknown) annular calcification. The mitral valve (unknown) (no (unknown) (unknown) Ordering Provider: (units (unknown) date) Ana Maria Ortega unknown) 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 (unknown) (no (unknown) (unknown) Patient: (units (unkno wn) date) Nicolas Neely MR#: unknown) M0 (unknown) (no (unknown) (unknown) Pericardium/ Pleura (unit s (unknown) date) There is no unknown) pericardial effusion. There is no pleural (unknown) (no (unknown) (unknown) Procedure: A (units (u nknown) date) two-dimensional unknown) transthoracic echocardiogram with color flow (unknown) (no (unknown) (unknown) Procedure: EC echo (units (unknown) date) doppler complete unknown) (unknown) (no (unknown) (unknown) Pulmonic Valve: The (unit s (unknown) date) pulmonic valve unknown) leaflets are thin and pliable; valve (unknown) (no (unknown) (unknown) RVD1 (basal): 4.0 cm (uni ts (unknown) date) unknown) (unknown) (no (unknown) (unknown) RVD2 (mid): 2.8 cm (units (unknown) date) unknown) (unknown) (no (unknown) (unknown) Reading (units (unkno wn) date) Physician:09:40 AM unknown) (unknown) (no (unknown) (unknown) Right Ventricle: The (uni ts (unknown) date) right ventricle is unknown) normal in size and function. There (unknown) (no (unknown) (unknown) Signed (units (unkno wn) date) unknown) (unknown) (no (unknown) (unknown) TAPSE: 2.5 cm (units ( unknown) date) unknown) (unknown) (no (unknown) (unknown) The aortic root is (units (unknown) date) mildly dilated. unknown) (unknown) (no (unknown) (unknown) The ascending aorta (unit s (unknown) date) is mildly enlarged. unknown) (unknown) (no (unknown) (unknown) The left ventricle (units (unknown) date) is normal in size and unknown) wall thickness. (unknown) (no (unknown) (unknown) The patient was in (units (unknown) date) normal sinus rhythm unknown) during the exam. (unknown) (no (unknown) (unknown) The right ventricle (unit s (unknown) date) is normal in size and unknown) function. (unknown) (no (unknown) (unknown) The right (units (unkn own) date) ventricular systolic unknown) pressure is estimated to be at least 30 mmHg (unknown) (no (unknown) (unknown) There is a pacemaker (uni ts (unknown) date) lead in the right unknown) ventricle. (unknown) (no (unknown) (unknown) There is mild mitral (uni ts (unknown) date) valve prolapse. unknown) (unknown) (no (unknown) (unknown) There is mild to (units (unknown) date) moderate aortic unknown) regurgitation. (unknown) (no (unknown) (unknown) There is moderate (units (unknown) date) mitral regurgitation. unknown) (unknown) (no (unknown) (unknown) There is moderate (units (unknown) date) tricuspid unknown) regurgitation. (unknown) (no (unknown) (unknown) There is no (units (un known) date) thrombus. Left unknown) ventricular ejection fraction is estimated to be 50 (unknown) (no (unknown) (unknown) There is prolapse of (uni ts (unknown) date) the posterior mitral unknown) valve leaflet(s).However the mitral (unknown) (no (unknown) (unknown) Tricuspid Valve: The (uni ts (unknown) date) tricuspid annulus is unknown) dilated. There is moderate (unknown) (no (unknown) (unknown) (uni ts (unknown) date) unknown) (unknown) (no (unknown) (unknown) and Doppler was (units (unknown) date) performed. The study unknown) quality was technically adequate. There (unknown) (no (unknown) (unknown) based on an (units (un known) date) estimated right unknown) atrial pressure of 3 mm Hg. (unknown) (no (unknown) (unknown) between 65-77 bpm (units (unknown) date) during the study. The unknown) patient was in normal sinus rhythm (unknown) (no (unknown) (unknown) calcified. There is (unit s (unknown) date) minimally reduced unknown) leaflet mobility. There is no aortic (unknown) (no (unknown) (unknown) chordae are (units (un known) date) thickened and/or unknown) calcified. There is prolapse of the posterior (unknown) (no (unknown) (unknown) during the exam. (units (unknown) date) unknown) (unknown) (no (unknown) (unknown) effusion. (units (unkn own) date) unknown) (unknown) (no (unknown) (unknown) filling pressures. 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 (unknown) (no (unknown) (unknown) is no prior (units (un known) date) echocardiogram noted unknown) for this patient. The heart rate ranged (unknown) (no (unknown) (unknown) lead seen in the (units (unknown) date) right atrium. The unknown) right atrium is severely dilated. There is (unknown) (no (unknown) (unknown) mildly enlarged. The (uni ts (unknown) date) IVC is of normal unknown) diameter and collapses greater than 50% (unknown) (no (unknown) (unknown) mitral valve (units (u nknown) date) leaflet(s). There is unknown) mild mitral valve prolapse. There is (unknown) (no (unknown) (unknown) moderate mitral (units (unknown) date) regurgitation. unknown) (unknown) (no (unknown) (unknown) motion is normal. (units (unknown) date) There is mild unknown) pulmonic regurgitation. (unknown) (no (unknown) (unknown) no Doppler evidence (unit s (unknown) date) for an interatrial unknown) shunt. (unknown) (no (unknown) (unknown) probable elevated (units (unknown) date) filling pressures. unknown) (unknown) (no (unknown) (unknown) regurgitation jet is (uni ts (unknown) date) not anteromedially unknown) directed. (unknown) (no (unknown) (unknown) suggest a (units (unkn own) date) pseudonormalization unknown) pattern, consistent with probable elevated (unknown) (no (unknown) (unknown) to be at least 30 (units (unknown) date) mmHg based on an unknown) estimated right atrial pressure of 3 mm Hg. (unknown) (no (unknown) (unknown) tricuspid (units (unkn own) date) regurgitation. The unknown) right ventricular systolic pressure is estimated (unknown) (no (unknown) (unknown) valve stenosis. (units (unknown) date) There is mild to unknown) moderate aortic regurgitation. (unknown) (no (unknown) (unknown) with a sniff. This (units (unknown) date) suggests a low right unknown) atrial pressure of 3 mm Hg. Result panel 252 (unknown) (no date) (unknown) (unknown) (no value) (units (un known) unknown) (unknown) (no date) (unknown) (unknown) (past 8 (units (unkn own) hours): unknown) (unknown) (no date) (unknown) (unknown) 10/24/22 (units (unkn own) 10/24/22 unknown) 10/24/22 (unknown) (no date) (unknown) (unknown) 10/24/22 16:40 (units (unknown) unknown) (unknown) (no date) (unknown) (unknown) 10/24/22 (units (unkn own) unknown) (unknown) (no date) (unknown) (unknown) [id number] (units (unkn own) unknown) (unknown) (no date) (unknown) (unknown) 16:14 10/24/22 (units (unknown) unknown) (unknown) (no date) (unknown) (unknown) 16:40 16:40 (units (u nknown) 16:40 unknown) (unknown) (no date) (unknown) (unknown) 16:51 10/24/22 (units (unknown) unknown) (unknown) (no date) (unknown) (unknown) 16:52 10/24/22 (units (unknown) unknown) (unknown) (no date) (unknown) (unknown) 16:52 (units (unkn own) unknown) (unknown) (no date) (unknown) (unknown) 16:55 (units (unkn own) unknown) (unknown) (no date) (unknown) (unknown) 17:00 10/24/22 (units (unknown) unknown) (unknown) (no date) (unknown) (unknown) 17:00 (units (unkn own) unknown) (unknown) (no date) (unknown) (unknown) 17:16 10/24/22 (units (unknown) unknown) (unknown) (no date) (unknown) (unknown) 17:20 10/24/22 (units (unknown) unknown) (unknown) (no date) (unknown) (unknown) 17:20 (units (unkn own) unknown) (unknown) (no date) (unknown) (unknown) 17:30 10/24/22 (units (unknown) unknown) (unknown) (no date) (unknown) (unknown) 17:31 10/24/22 (units (unknown) unknown) (unknown) (no date) (unknown) (unknown) 17:31 (units (unkn own) unknown) (unknown) (no date) (unknown) (unknown) 17:35 10/24/22 (units (unknown) unknown) (unknown) (no date) (unknown) (unknown) 17:35 (units (unkn own) unknown) (unknown) (no date) (unknown) (unknown) 17:40 10/24/22 (units (unknown) unknown) (unknown) (no date) (unknown) (unknown) 17:45 10/24/22 (units (unknown) unknown) (unknown) (no date) (unknown) (unknown) 17:51 10/24/22 (units (unknown) unknown) (unknown) (no date) (unknown) (unknown) 17:51 (units (unkn own) unknown) (unknown) (no date) (unknown) (unknown) 17:55 10/24/22 (units (unknown) unknown) (unknown) (no date) (unknown) (unknown) 17:55 (units (unkn own) unknown) (unknown) (no date) (unknown) (unknown) 18:00 10/24/22 (units (unknown) unknown) (unknown) (no date) (unknown) (unknown) 18:05 10/24/22 (units (unknown) unknown) (unknown) (no date) (unknown) (unknown) 18:05 (units (unkn own) unknown) (unknown) (no date) (unknown) (unknown) 18:10 10/24/22 (units (unknown) unknown) (unknown) (no date) (unknown) (unknown) 18:10 (units (unkn own) unknown) (unknown) (no date) (unknown) (unknown) 18:15 10/24/22 (units (unknown) unknown) (unknown) (no date) (unknown) (unknown) 18:20 10/24/22 (units (unknown) unknown) (unknown) (no date) (unknown) (unknown) 18:20 (units (unkn own) unknown) (unknown) (no date) (unknown) (unknown) 18:25 10/24/22 (units (unknown) unknown) (unknown) (no date) (unknown) (unknown) 18:25 (units (unkn own) unknown) (unknown) (no date) (unknown) (unknown) 18:30 10/24/22 (units (unknown) unknown) (unknown) (no date) (unknown) (unknown) 19:00 (units (unkn own) unknown) (unknown) (no date) (unknown) (unknown) 19:07 10/24/22 (units (unknown) unknown) (unknown) (no date) (unknown) (unknown) 19:10 10/24/22 (units (unknown) unknown) (unknown) (no date) (unknown) (unknown) 19:10 (units (unkn own) unknown) (unknown) (no date) (unknown) (unknown) 19:15 10/24/22 (units (unknown) unknown) (unknown) (no date) (unknown) (unknown) 19:15 (units (unkn own) unknown) (unknown) (no date) (unknown) (unknown) 19:21 10/24/22 (units (unknown) unknown) (unknown) (no date) (unknown) (unknown) 19:25 10/24/22 (units (unknown) unknown) (unknown) (no date) (unknown) (unknown) 19:25 (units (unkn own) unknown) (unknown) (no date) (unknown) (unknown) 19:30 10/24/22 (units (unknown) unknown) (unknown) (no date) (unknown) (unknown) 19:30 (units (unkn own) unknown) (unknown) (no date) (unknown) (unknown) 19:35 10/24/22 (units (unknown) unknown) (unknown) (no date) (unknown) (unknown) 19:40 10/24/22 (units (unknown) unknown) (unknown) (no date) (unknown) (unknown) 19:40 (units (unkn own) unknown) (unknown) (no date) (unknown) (unknown) 19:45 10/24/22 (units (unknown) unknown) (unknown) (no date) (unknown) (unknown) 19:45 (units (unkn own) unknown) (unknown) (no date) (unknown) (unknown) 19:50 10/24/22 (units (unknown) unknown) (unknown) (no date) (unknown) (unknown) 19:55 10/24/22 (units (unknown) unknown) (unknown) (no date) (unknown) (unknown) 19:55 (units (unkn own) unknown) (unknown) (no date) (unknown) (unknown) 20:00 10/24/22 (units (unknown) unknown) (unknown) (no date) (unknown) (unknown) 20:00 (units (unkn own) unknown) (unknown) (no date) (unknown) (unknown) 20:06 10/24/22 (units (unknown) unknown) (unknown) (no date) (unknown) (unknown) 20:10 10/24/22 (units (unknown) unknown) (unknown) (no date) (unknown) (unknown) 20:10 (units (unkn own) unknown) (unknown) (no date) (unknown) (unknown) 20:15 10/24/22 (units (unknown) unknown) (unknown) (no date) (unknown) (unknown) 20:15 (units (unkn own) unknown) (unknown) (no date) (unknown) (unknown) 20:20 10/24/22 (units (unknown) unknown) (unknown) (no date) (unknown) (unknown) 20:30 10/24/22 (units (unknown) unknown) (unknown) (no date) (unknown) (unknown) 20:30 (units (unkn own) unknown) (unknown) (no date) (unknown) (unknown) 20:45 10/24/22 (units (unknown) unknown) (unknown) (no date) (unknown) (unknown) 20:45 (units (unkn own) unknown) (unknown) (no date) (unknown) (unknown) ALT 27 (units (unkn own) unknown) (unknown) (no date) (unknown) (unknown) ALT (units (unkn own) unknown) (unknown) (no date) (unknown) (unknown) APTT 36 (units (unkn own) unknown) (unknown) (no date) (unknown) (unknown) APTT (units (unkn own) unknown) (unknown) (no date) (unknown) (unknown) AST 32 (units (unkn own) unknown) (unknown) (no date) (unknown) (unknown) AST (units (unkn own) unknown) (unknown) (no date) (unknown) (unknown) Age/Sex: 86 / (units (unknown) M unknown) (unknown) (no date) (unknown) (unknown) Albumin 3.7 (units (u nknown) unknown) (unknown) (no date) (unknown) (unknown) Albumin (units (unkn own) unknown) (unknown) (no date) (unknown) (unknown) Albumin/Globul (units (unknown) in Ratio 0.9 L unknown) (unknown) (no date) (unknown) (unknown) Albumin/Globul (units (unknown) in Ratio unknown) (unknown) (no date) (unknown) (unknown) Alkaline (units (unkn own) Phosphatase 108 unknown) (unknown) (no date) (unknown) (unknown) Alkaline (units (unkn own) Phosphatase unknown) (unknown) (no date) (unknown) (unknown) Allergies (units (unk nown) unknown) (unknown) (no date) (unknown) (unknown) Allergy/AdvRea (units (unknown) c Type Severity unknown) Reaction Status Date / Time (unknown) (no date) (unknown) (unknown) Assessment + (units ( unknown) Plan unknown) (unknown) (no date) (unknown) (unknown) BUN 9 (units (unkn own) unknown) (unknown) (no date) (unknown) (unknown) BUN (units (unkn own) unknown) (unknown) (no date) (unknown) (unknown) BUN/Creatinine (units (unknown) Ratio 11.3 unknown) (unknown) (no date) (unknown) (unknown) BUN/Creatinine (units (unknown) Ratio unknown) (unknown) (no date) (unknown) (unknown) Baso # (Auto) (units (unknown) 100 unknown) (unknown) (no date) (unknown) (unknown) Baso # (Auto) (units (unknown) unknown) (unknown) (no date) (unknown) (unknown) Baso % (Auto) (units (unknown) 1.3 unknown) (unknown) (no date) (unknown) (unknown) Baso % (Auto) (units (unknown) unknown) (unknown) (no date) (unknown) (unknown) Been (units (unkn own) Physically Hurt unknown) or No (unknown) (no date) (unknown) (unknown) Blood Pressure (units (unknown) 105/80 unknown) (unknown) (no date) (unknown) (unknown) Blood Pressure (units (unknown) 118/81 unknown) (unknown) (no date) (unknown) (unknown) Blood Pressure (units (unknown) 119/94 H unknown) (unknown) (no date) (unknown) (unknown) Blood Pressure (units (unknown) 120/82 unknown) (unknown) (no date) (unknown) (unknown) Blood Pressure (units (unknown) 121/81 135/82 unknown) (unknown) (no date) (unknown) (unknown) Blood Pressure (units (unknown) 122/83 128/79 unknown) (unknown) (no date) (unknown) (unknown) Blood Pressure (units (unknown) 123/79 121/83 unknown) (unknown) (no date) (unknown) (unknown) Blood Pressure (units (unknown) 125/81 127/75 unknown) (unknown) (no date) (unknown) (unknown) Blood Pressure (units (unknown) 125/90 unknown) (unknown) (no date) (unknown) (unknown) Blood Pressure (units (unknown) 129/84 117/83 unknown) (unknown) (no date) (unknown) (unknown) Blood Pressure (units (unknown) 131/75 unknown) (unknown) (no date) (unknown) (unknown) Blood Pressure (units (unknown) 131/85 153/82 H unknown) (unknown) (no date) (unknown) (unknown) Blood Pressure (units (unknown) 132/84 136/88 unknown) (unknown) (no date) (unknown) (unknown) Blood Pressure (units (unknown) 134/102 H unknown) (unknown) (no date) (unknown) (unknown) Blood Pressure (units (unknown) 134/82 unknown) (unknown) (no date) (unknown) (unknown) Blood Pressure (units (unknown) 134/87 unknown) (unknown) (no date) (unknown) (unknown) Blood Pressure (units (unknown) 136/92 H unknown) (unknown) (no date) (unknown) (unknown) Blood Pressure (units (unknown) 140/80 unknown) (unknown) (no date) (unknown) (unknown) Blood Pressure (units (unknown) 140/92 H unknown) (unknown) (no date) (unknown) (unknown) Blood Pressure (units (unknown) 141/93 H 137/96 unknown) H (unknown) (no date) (unknown) (unknown) Blood Pressure (units (unknown) 143/81 H 128/82 unknown) (unknown) (no date) (unknown) (unknown) Blood Pressure (units (unknown) 148/92 H unknown) (unknown) (no date) (unknown) (unknown) Blood Pressure (units (unknown) 148/93 H unknown) (unknown) (no date) (unknown) (unknown) Blood Pressure (units (unknown) 150/90 H 151/97 unknown) H (unknown) (no date) (unknown) (unknown) Blood Pressure (units (unknown) 150/97 H 152/86 unknown) H (unknown) (no date) (unknown) (unknown) CK-MB (CK-2) (units ( unknown) Rel Index TNP unknown) (unknown) (no date) (unknown) (unknown) CK-MB (CK-2) (units ( unknown) Rel Index unknown) (unknown) (no date) (unknown) (unknown) CK-MB (CK-2) (units ( unknown) TNP unknown) (unknown) (no date) (unknown) (unknown) CK-MB (CK-2) (units ( unknown) unknown) (unknown) (no date) (unknown) (unknown) Calcium 9.0 (units (u nknown) unknown) (unknown) (no date) (unknown) (unknown) Calcium (units (unkn own) unknown) (unknown) (no date) (unknown) (unknown) Carbon Dioxide (units (unknown) 23 unknown) (unknown) (no date) (unknown) (unknown) Carbon Dioxide (units (unknown) unknown) (unknown) (no date) (unknown) (unknown) Chief (units (unkn own) complaint: Back unknown) pain (unknown) (no date) (unknown) (unknown) Chloride 106 (units ( unknown) unknown) (unknown) (no date) (unknown) (unknown) Chloride (units (unkn own) unknown) (unknown) (no date) (unknown) (unknown) Creatinine (units (un known) 0.80 unknown) (unknown) (no date) (unknown) (unknown) Creatinine (units (un known) unknown) (unknown) (no date) (unknown) (unknown) Critical Care (units (unknown) time: unknown) (unknown) (no date) (unknown) (unknown) : (units (unkn own) 1935 unknown) Acct:[id number] (unknown) (no date) (unknown) (unknown) Date Patient (units ( unknown) Seen: 10/24/22 unknown) (unknown) (no date) (unknown) (unknown) Date of (units (unkn own) Service: unknown) 10/24/22 (unknown) (no date) (unknown) (unknown) Environment (units (u nknown) unknown) (unknown) (no date) (unknown) (unknown) Eos # (Auto) (units ( unknown) 200 unknown) (unknown) (no date) (unknown) (unknown) Eos # (Auto) (units ( unknown) unknown) (unknown) (no date) (unknown) (unknown) Eos % (Auto) (units ( unknown) 2.1 unknown) (unknown) (no date) (unknown) (unknown) Eos % (Auto) (units ( unknown) unknown) (unknown) (no date) (unknown) (unknown) Estimated GFR (units (unknown) > 60 unknown) (unknown) (no date) (unknown) (unknown) Estimated GFR (units (unknown) unknown) (unknown) (no date) (unknown) (unknown) Exam (units (unkn own) unknown) (unknown) (no date) (unknown) (unknown) Family + (units (unkn own) Social History unknown) (unknown) (no date) (unknown) (unknown) Feels Safe in (units (unknown) Current Yes unknown) (unknown) (no date) (unknown) (unknown) Globulin 4.2 H (units (unknown) unknown) (unknown) (no date) (unknown) (unknown) Globulin (units (unkn own) unknown) (unknown) (no date) (unknown) (unknown) Glucose 89 (units (un known) unknown) (unknown) (no date) (unknown) (unknown) Glucose (units (unkn own) unknown) (unknown) (no date) (unknown) (unknown) Hct 45.9 (units (unkn own) unknown) (unknown) (no date) (unknown) (unknown) Hct (units (unkn own) unknown) (unknown) (no date) (unknown) (unknown) Hgb 15.6 (units (unkn own) unknown) (unknown) (no date) (unknown) (unknown) Hgb (units (unkn own) unknown) (unknown) (no date) (unknown) (unknown) History + (units (unk nown) Physical Report unknown) (unknown) (no date) (unknown) (unknown) History of (units (un known) Present Illness unknown) (unknown) (no date) (unknown) (unknown) Home (units (unkn own) Medications and unknown) Allergies (unknown) (no date) (unknown) (unknown) I spent a (units (unk nown) total of [] unknown) minutes of critical care time on this patient's care (unknown) (no date) (unknown) (unknown) INR 1.5 H (units (unk nown) unknown) (unknown) (no date) (unknown) (unknown) INR (units (unkn own) unknown) (unknown) (no date) (unknown) (unknown) [place] (units (unkn own) [facility] [address] unknown) [address] [place] [id number] (unknown) (no date) (unknown) (unknown) Laboratory (units (un known) Results - last unknown) 24 hr (unknown) (no date) (unknown) (unknown) Labs (units (unkn own) unknown) (unknown) (no date) (unknown) (unknown) Labs: (units (unkn own) unknown) (unknown) (no date) (unknown) (unknown) Lipase 169 (units (un known) unknown) (unknown) (no date) (unknown) (unknown) Lipase (units (unkn own) unknown) (unknown) (no date) (unknown) (unknown) Lymph # (Auto) (units (unknown) 2300 unknown) (unknown) (no date) (unknown) (unknown) Lymph # (Auto) (units (unknown) unknown) (unknown) (no date) (unknown) (unknown) Lymph % (Auto) (units (unknown) 22.0 L unknown) (unknown) (no date) (unknown) (unknown) Lymph % (Auto) (units (unknown) unknown) (unknown) (no date) (unknown) (unknown) MCH 33.9 (units (unkn own) unknown) (unknown) (no date) (unknown) (unknown) MCH (units (unkn own) unknown) (unknown) (no date) (unknown) (unknown) MCHC 34.1 (units (unk nown) unknown) (unknown) (no date) (unknown) (unknown) MCHC (units (unkn own) unknown) (unknown) (no date) (unknown) (unknown) MCV 99.4 (units (unkn own) unknown) (unknown) (no date) (unknown) (unknown) MCV (units (unkn own) unknown) (unknown) (no date) (unknown) (unknown) Magnesium 1.9 (units (unknown) unknown) (unknown) (no date) (unknown) (unknown) Magnesium (units (unk nown) unknown) (unknown) (no date) (unknown) (unknown) Meds (units (unkn own) unknown) (unknown) (no date) (unknown) (unknown) Brule # (Auto) (units (unknown) 1100 H unknown) (unknown) (no date) (unknown) (unknown) Brule # (Auto) (units (unknown) unknown) (unknown) (no date) (unknown) (unknown) Brule % (Auto) (units (unknown) 11.0 unknown) (unknown) (no date) (unknown) (unknown) Brule % (Auto) (units (unknown) unknown) (unknown) (no date) (unknown) (unknown) Neut # (Auto) (units (unknown) 6500 unknown) (unknown) (no date) (unknown) (unknown) Neut # (Auto) (units (unknown) unknown) (unknown) (no date) (unknown) (unknown) Neut % (Auto) (units (unknown) 63.6 unknown) (unknown) (no date) (unknown) (unknown) Neut % (Auto) (units (unknown) unknown) (unknown) (no date) (unknown) (unknown) No Known Drug (units (unknown) Allergies unknown) Allergy Verified 10/24/22 21:16 (unknown) (no date) (unknown) (unknown) Objective (units (unk nown) unknown) (unknown) (no date) (unknown) (unknown) Oxygen (units (unkn own) Delivery Method unknown) Room Air (unknown) (no date) (unknown) (unknown) Oxygen (units (unkn own) Delivery Method unknown) (unknown) (no date) (unknown) (unknown) PT 17.4 H (units (unk nown) unknown) (unknown) (no date) (unknown) (unknown) PT (units (unkn own) unknown) (unknown) (no date) (unknown) (unknown) Patient (units (unkn own) History unknown) (unknown) (no date) (unknown) (unknown) Patient: (units (unkn own) Nicolas Neely unknown) MR#: [id number] (unknown) (no date) (unknown) (unknown) Plt Count 218 (units (unknown) unknown) (unknown) (no date) (unknown) (unknown) Plt Count (units (unk nown) unknown) (unknown) (no date) (unknown) (unknown) Potassium 3.8 (units (unknown) unknown) (unknown) (no date) (unknown) (unknown) Potassium (units (unk nown) unknown) (unknown) (no date) (unknown) (unknown) Provider: (units (unk nown) Martha Ortega unknown) e 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 (unknown) (no date) (unknown) (unknown) Pulse Oximetry (units (unknown) 94 unknown) (unknown) (no date) (unknown) (unknown) Pulse Oximetry (units (unknown) 95 95 unknown) (unknown) (no date) (unknown) (unknown) Pulse Oximetry (units (unknown) 95 96 unknown) (unknown) (no date) (unknown) (unknown) Pulse Oximetry (units (unknown) 95 unknown) (unknown) (no date) (unknown) (unknown) Pulse Oximetry (units (unknown) 96 95 unknown) (unknown) (no date) (unknown) (unknown) Pulse Oximetry (units (unknown) 96 97 unknown) (unknown) (no date) (unknown) (unknown) Pulse Oximetry (units (unknown) 96 unknown) (unknown) (no date) (unknown) (unknown) Pulse Oximetry (units (unknown) 97 97 unknown) (unknown) (no date) (unknown) (unknown) Pulse Oximetry (units (unknown) 98 98 unknown) (unknown) (no date) (unknown) (unknown) Pulse Oximetry (units (unknown) 98 99 unknown) (unknown) (no date) (unknown) (unknown) Pulse Oximetry (units (unknown) 98 unknown) (unknown) (no date) (unknown) (unknown) Pulse Oximetry (units (unknown) 99 98 unknown) (unknown) (no date) (unknown) (unknown) Pulse Oximetry (units (unknown) 99 unknown) (unknown) (no date) (unknown) (unknown) Pulse Rate 133 (units (unknown) H unknown) (unknown) (no date) (unknown) (unknown) Pulse Rate 135 (units (unknown) H 118 H unknown) (unknown) (no date) (unknown) (unknown) Pulse Rate 135 (units (unknown) H 130 H unknown) (unknown) (no date) (unknown) (unknown) Pulse Rate 136 (units (unknown) H 131 H unknown) (unknown) (no date) (unknown) (unknown) Pulse Rate 138 (units (unknown) H 140 H unknown) (unknown) (no date) (unknown) (unknown) Pulse Rate 143 (units (unknown) H 136 H unknown) (unknown) (no date) (unknown) (unknown) Pulse Rate 85 (units (unknown) 86 unknown) (unknown) (no date) (unknown) (unknown) Pulse Rate 85 (units (unknown) unknown) (unknown) (no date) (unknown) (unknown) Pulse Rate 86 (units (unknown) unknown) (unknown) (no date) (unknown) (unknown) Pulse Rate 87 (units (unknown) 84 unknown) (unknown) (no date) (unknown) (unknown) Pulse Rate 87 (units (unknown) 89 unknown) (unknown) (no date) (unknown) (unknown) Pulse Rate 88 (units (unknown) 89 unknown) (unknown) (no date) (unknown) (unknown) Pulse Rate 90 (units (unknown) 85 unknown) (unknown) (no date) (unknown) (unknown) Pulse Rate 90 (units (unknown) 91 H unknown) (unknown) (no date) (unknown) (unknown) Pulse Rate 90 (units (unknown) unknown) (unknown) (no date) (unknown) (unknown) Pulse Rate 91 (units (unknown) H 103 H unknown) (unknown) (no date) (unknown) (unknown) Pulse Rate 91 (units (unknown) H 90 unknown) (unknown) (no date) (unknown) (unknown) Pulse Rate 91 (units (unknown) H unknown) (unknown) (no date) (unknown) (unknown) Pulse Rate 92 (units (unknown) H 90 unknown) (unknown) (no date) (unknown) (unknown) Pulse Rate 92 (units (unknown) H unknown) (unknown) (no date) (unknown) (unknown) Pulse Rate 93 (units (unknown) H unknown) (unknown) (no date) (unknown) (unknown) RBC 4.62 (units (unkn own) unknown) (unknown) (no date) (unknown) (unknown) RBC (units (unkn own) unknown) (unknown) (no date) (unknown) (unknown) RDW 14.5 (units (unkn own) unknown) (unknown) (no date) (unknown) (unknown) RDW (units (unkn own) unknown) (unknown) (no date) (unknown) (unknown) Respiratory (units (u nknown) Rate 11 L 17 unknown) (unknown) (no date) (unknown) (unknown) Respiratory (units (u nknown) Rate 11 L unknown) (unknown) (no date) (unknown) (unknown) Respiratory (units (u nknown) Rate 13 10 L unknown) (unknown) (no date) (unknown) (unknown) Respiratory (units (u nknown) Rate 14 14 unknown) (unknown) (no date) (unknown) (unknown) Respiratory (units (u nknown) Rate 14 21 unknown) (unknown) (no date) (unknown) (unknown) Respiratory (units (u nknown) Rate 14 unknown) (unknown) (no date) (unknown) (unknown) Respiratory (units (u nknown) Rate 15 13 unknown) (unknown) (no date) (unknown) (unknown) Respiratory (units (u nknown) Rate 15 15 unknown) (unknown) (no date) (unknown) (unknown) Respiratory (units (u nknown) Rate 15 16 unknown) (unknown) (no date) (unknown) (unknown) Respiratory (units (u nknown) Rate 15 22 unknown) (unknown) (no date) (unknown) (unknown) Respiratory (units (u nknown) Rate 15 unknown) (unknown) (no date) (unknown) (unknown) Respiratory (units (u nknown) Rate 16 17 unknown) (unknown) (no date) (unknown) (unknown) Respiratory (units (u nknown) Rate 16 unknown) (unknown) (no date) (unknown) (unknown) Respiratory (units (u nknown) Rate 17 15 unknown) (unknown) (no date) (unknown) (unknown) Respiratory (units (u nknown) Rate 17 unknown) (unknown) (no date) (unknown) (unknown) Respiratory (units (u nknown) Rate 18 12 unknown) (unknown) (no date) (unknown) (unknown) Respiratory (units (u nknown) Rate 18 unknown) (unknown) (no date) (unknown) (unknown) Respiratory (units (u nknown) Rate 19 22 unknown) (unknown) (no date) (unknown) (unknown) Respiratory (units (u nknown) Rate 20 13 unknown) (unknown) (no date) (unknown) (unknown) Respiratory (units (u nknown) Rate 20 unknown) (unknown) (no date) (unknown) (unknown) Respiratory (units (u nknown) Rate 21 11 L unknown) (unknown) (no date) (unknown) (unknown) Respiratory (units (u nknown) Rate 23 15 unknown) (unknown) (no date) (unknown) (unknown) Result (units (unkn own) Diagrams: unknown) (unknown) (no date) (unknown) (unknown) SARS-CoV-2 (units (un known) (PCR) Negative unknown) (unknown) (no date) (unknown) (unknown) SARS-CoV-2 (units (un known) (PCR) unknown) (unknown) (no date) (unknown) (unknown) Safety + (units (unkn own) Behavioral: unknown) (unknown) (no date) (unknown) (unknown) Signed By: (units (un known) unknown) (unknown) (no date) (unknown) (unknown) Smoking Status (units (unknown) Never smoker unknown) (unknown) (no date) (unknown) (unknown) Sodium 139 (units (un known) unknown) (unknown) (no date) (unknown) (unknown) Sodium (units (unkn own) unknown) (unknown) (no date) (unknown) (unknown) Temperature (units (u nknown) 98.2 F unknown) (unknown) (no date) (unknown) (unknown) Temperature (units (u nknown) unknown) (unknown) (no date) (unknown) (unknown) Threatened By (units (unknown) a Person unknown) (unknown) (no date) (unknown) (unknown) Time Patient (units ( unknown) Seen: 22:04 unknown) (unknown) (no date) (unknown) (unknown) Time Spent (units (un known) With Patient unknown) (unknown) (no date) (unknown) (unknown) Tobacco + (units (unk nown) Substance use: unknown) (unknown) (no date) (unknown) (unknown) Total (units (unkn own) Bilirubin 1.1 unknown) (unknown) (no date) (unknown) (unknown) Total (units (unkn own) Bilirubin unknown) (unknown) (no date) (unknown) (unknown) Total Creatine (units (unknown) Kinase < 20 L unknown) (unknown) (no date) (unknown) (unknown) Total Creatine (units (unknown) Kinase unknown) (unknown) (no date) (unknown) (unknown) Total Protein (units (unknown) 7.9 unknown) (unknown) (no date) (unknown) (unknown) Total Protein (units (unknown) unknown) (unknown) (no date) (unknown) (unknown) Troponin I < (units ( unknown) 0.012 unknown) (unknown) (no date) (unknown) (unknown) Troponin I (units (un known) unknown) (unknown) (no date) (unknown) (unknown) Vital Signs (units (u nknown) unknown) (unknown) (no date) (unknown) (unknown) WBC 10.3 (units (unkn own) unknown) (unknown) (no date) (unknown) (unknown) WBC (units (unkn own) unknown) (unknown) (no date) (unknown) (unknown) [Embedded (units (unk nown) Image Not unknown) Available] (unknown) (no date) (unknown) (unknown) alcohol intake (units (unknown) frequency unknown) holiday/special occasion (unknown) (no date) (unknown) (unknown) today; this (units (u nknown) time is unknown) exclusive of procedural time. Result panel 253 (unknown) (no date) (unknown) (unknown) 0.9 mmol/l (unkn own) Result panel 254 (unknown) (no (unknown) (unknown) (no value) (units (unk nown) date) unknown) (unknown) (no (unknown) (unknown) (past 8 hours): (units (unknown) date) unknown) (unknown) (no (unknown) (unknown) -Social (units (unkno wn) date) Determinants of unknown) Health that impact treatment or disposition: age, (unknown) (no (unknown) (unknown) -as evidence by (units (unknown) date) BMI 22.8 unknown) (unknown) (no (unknown) (unknown) -dietary consult (units (unknown) date) ordered to unknown) evaluate and implement steps to improve caloric (unknown) (no (unknown) (unknown) -patient's (units (unk nown) date) malnutrition unknown) places them at high risk for medical and surgical (unknown) (no (unknown) (unknown) 10/24/22 10/24/22 (units (unknown) date) 10/24/22 unknown) (unknown) (no (unknown) (unknown) 10/24/22 16:40 (units (unknown) date) unknown) (unknown) (no (unknown) (unknown) 10/24/22 (units (unkno wn) date) unknown) (unknown) (no (unknown) (unknown) [id number] (units (unkno wn) date) unknown) (unknown) (no (unknown) (unknown) 1. AFib with RVR, (units (unknown) date) acute on chronic, unknown) on Xarelto, present on admission (unknown) (no (unknown) (unknown) 16:14 10/24/22 (units (unknown) date) unknown) (unknown) (no (unknown) (unknown) 16:40 16:40 16:40 (units (unknown) date) unknown) (unknown) (no (unknown) (unknown) 16:51 10/24/22 (units (unknown) date) unknown) (unknown) (no (unknown) (unknown) 16:52 10/24/22 (units (unknown) date) unknown) (unknown) (no (unknown) (unknown) 16:52 (units (unkno wn) date) unknown) (unknown) (no (unknown) (unknown) 16:55 (units (unkno wn) date) unknown) (unknown) (no (unknown) (unknown) 17:00 10/24/22 (units (unknown) date) unknown) (unknown) (no (unknown) (unknown) 17:00 (units (unkno wn) date) unknown) (unknown) (no (unknown) (unknown) 17:16 10/24/22 (units (unknown) date) unknown) (unknown) (no (unknown) (unknown) 17:20 10/24/22 (units (unknown) date) unknown) (unknown) (no (unknown) (unknown) 17:20 (units (unkno wn) date) unknown) (unknown) (no (unknown) (unknown) 17:30 10/24/22 (units (unknown) date) unknown) (unknown) (no (unknown) (unknown) 17:31 10/24/22 (units (unknown) date) unknown) (unknown) (no (unknown) (unknown) 17:31 (units (unkno wn) date) unknown) (unknown) (no (unknown) (unknown) 17:35 10/24/22 (units (unknown) date) unknown) (unknown) (no (unknown) (unknown) 17:35 (units (unkno wn) date) unknown) (unknown) (no (unknown) (unknown) 17:40 10/24/22 (units (unknown) date) unknown) (unknown) (no (unknown) (unknown) 17:45 10/24/22 (units (unknown) date) unknown) (unknown) (no (unknown) (unknown) 17:51 10/24/22 (units (unknown) date) unknown) (unknown) (no (unknown) (unknown) 17:51 (units (unkno wn) date) unknown) (unknown) (no (unknown) (unknown) 17:55 10/24/22 (units (unknown) date) unknown) (unknown) (no (unknown) (unknown) 17:55 (units (unkno wn) date) unknown) (unknown) (no (unknown) (unknown) 18:00 10/24/22 (units (unknown) date) unknown) (unknown) (no (unknown) (unknown) 18:05 10/24/22 (units (unknown) date) unknown) (unknown) (no (unknown) (unknown) 18:05 (units (unkno wn) date) unknown) (unknown) (no (unknown) (unknown) 18:10 10/24/22 (units (unknown) date) unknown) (unknown) (no (unknown) (unknown) 18:10 (units (unkno wn) date) unknown) (unknown) (no (unknown) (unknown) 18:15 10/24/22 (units (unknown) date) unknown) (unknown) (no (unknown) (unknown) 18:20 10/24/22 (units (unknown) date) unknown) (unknown) (no (unknown) (unknown) 18:20 (units (unkno wn) date) unknown) (unknown) (no (unknown) (unknown) 18:25 10/24/22 (units (unknown) date) unknown) (unknown) (no (unknown) (unknown) 18:25 (units (unkno wn) date) unknown) (unknown) (no (unknown) (unknown) 18:30 10/24/22 (units (unknown) date) unknown) (unknown) (no (unknown) (unknown) 19:00 (units (unkno wn) date) unknown) (unknown) (no (unknown) (unknown) 19:07 10/24/22 (units (unknown) date) unknown) (unknown) (no (unknown) (unknown) 19:10 10/24/22 (units (unknown) date) unknown) (unknown) (no (unknown) (unknown) 19:10 (units (unkno wn) date) unknown) (unknown) (no (unknown) (unknown) 19:15 10/24/22 (units (unknown) date) unknown) (unknown) (no (unknown) (unknown) 19:15 (units (unkno wn) date) unknown) (unknown) (no (unknown) (unknown) 19:21 10/24/22 (units (unknown) date) unknown) (unknown) (no (unknown) (unknown) 19:25 10/24/22 (units (unknown) date) unknown) (unknown) (no (unknown) (unknown) 19:25 (units (unkno wn) date) unknown) (unknown) (no (unknown) (unknown) 19:30 10/24/22 (units (unknown) date) unknown) (unknown) (no (unknown) (unknown) 19:30 (units (unkno wn) date) unknown) (unknown) (no (unknown) (unknown) 19:35 10/24/22 (units (unknown) date) unknown) (unknown) (no (unknown) (unknown) 19:40 10/24/22 (units (unknown) date) unknown) (unknown) (no (unknown) (unknown) 19:40 (units (unkno wn) date) unknown) (unknown) (no (unknown) (unknown) 19:45 10/24/22 (units (unknown) date) unknown) (unknown) (no (unknown) (unknown) 19:45 (units (unkno wn) date) unknown) (unknown) (no (unknown) (unknown) 19:50 10/24/22 (units (unknown) date) unknown) (unknown) (no (unknown) (unknown) 19:55 10/24/22 (units (unknown) date) unknown) (unknown) (no (unknown) (unknown) 19:55 (units (unkno wn) date) unknown) (unknown) (no (unknown) (unknown) 2. Unstable gait, (units (unknown) date) frequent falls, unknown) resulting in multiple compression fractures, (unknown) (no (unknown) (unknown) 20:00 10/24/22 (units (unknown) date) unknown) (unknown) (no (unknown) (unknown) 20:00 (units (unkno wn) date) unknown) (unknown) (no (unknown) (unknown) 20:06 10/24/22 (units (unknown) date) unknown) (unknown) (no (unknown) (unknown) 20:10 10/24/22 (units (unknown) date) unknown) (unknown) (no (unknown) (unknown) 20:10 (units (unkno wn) date) unknown) (unknown) (no (unknown) (unknown) 20:15 10/24/22 (units (unknown) date) unknown) (unknown) (no (unknown) (unknown) 20:15 (units (unkno wn) date) unknown) (unknown) (no (unknown) (unknown) 20:20 10/24/22 (units (unknown) date) unknown) (unknown) (no (unknown) (unknown) 20:30 10/24/22 (units (unknown) date) unknown) (unknown) (no (unknown) (unknown) 20:30 (units (unkno wn) date) unknown) (unknown) (no (unknown) (unknown) 20:45 10/24/22 (units (unknown) date) unknown) (unknown) (no (unknown) (unknown) 20:45 (units (unkno wn) date) unknown) (unknown) (no (unknown) (unknown) 3 through 8 (units (un known) date) right, left medial unknown) clavicle fracture unstable gait frequent falls. (unknown) (no (unknown) (unknown) 3. Malnutrition, (units (unknown) date) mild, acute on unknown) chronic, present on admission (unknown) (no (unknown) (unknown) 30, and 2 (units (unkn own) date) episodes of V-tach unknown) 8 attend be runs. Was successfully cardioverted (unknown) (no (unknown) (unknown) ALT 27 (units (unkno wn) date) unknown) (unknown) (no (unknown) (unknown) ALT (units (unkno wn) date) unknown) (unknown) (no (unknown) (unknown) APTT 36 (units (unkno wn) date) unknown) (unknown) (no (unknown) (unknown) APTT (units (unkno wn) date) unknown) (unknown) (no (unknown) (unknown) AST 32 (units (unkno wn) date) unknown) (unknown) (no (unknown) (unknown) AST (units (unkno wn) date) unknown) (unknown) (no (unknown) (unknown) Age/Sex: 86 / M (units (unknown) date) unknown) (unknown) (no (unknown) (unknown) Albumin 3.7 (units (un known) date) unknown) (unknown) (no (unknown) (unknown) Albumin (units (unkno wn) date) unknown) (unknown) (no (unknown) (unknown) Albumin/Globulin (units (unknown) date) Ratio 0.9 L unknown) (unknown) (no (unknown) (unknown) Albumin/Globulin (units (unknown) date) Ratio unknown) (unknown) (no (unknown) (unknown) Alkaline (units (unkno wn) date) Phosphatase 108 unknown) (unknown) (no (unknown) (unknown) Alkaline (units (unkno wn) date) Phosphatase unknown) (unknown) (no (unknown) (unknown) All 12 point (units (un known) date) systems reviewed unknown) with the patient and are negative except otherwise (unknown) (no (unknown) (unknown) Allergies (units (unkn own) date) unknown) (unknown) (no (unknown) (unknown) Allergy/AdvReac (units (unknown) date) Type Severity unknown) Reaction Status Date / Time (unknown) (no (unknown) (unknown) Assessment + Plan (units (unknown) date) narrative: unknown) (unknown) (no (unknown) (unknown) Assessment + Plan (units (unknown) date) unknown) (unknown) (no (unknown) (unknown) BUN 9 (units (unkno wn) date) unknown) (unknown) (no (unknown) (unknown) BUN (units (unkno wn) date) unknown) (unknown) (no (unknown) (unknown) BUN/Creatinine (units (unknown) date) Ratio 11.3 unknown) (unknown) (no (unknown) (unknown) BUN/Creatinine (units (unknown) date) Ratio unknown) (unknown) (no (unknown) (unknown) Baso # (Auto) 100 (units (unknown) date) unknown) (unknown) (no (unknown) (unknown) Baso # (Auto) (units ( unknown) date) unknown) (unknown) (no (unknown) (unknown) Baso % (Auto) 1.3 (units (unknown) date) unknown) (unknown) (no (unknown) (unknown) Baso % (Auto) (units ( unknown) date) unknown) (unknown) (no (unknown) (unknown) Been Physically (units (unknown) date) Hurt or No unknown) (unknown) (no (unknown) (unknown) Blood Pressure (units (unknown) date) 105/80 unknown) (unknown) (no (unknown) (unknown) Blood Pressure (units (unknown) date) 118/81 unknown) (unknown) (no (unknown) (unknown) Blood Pressure (units (unknown) date) 119/94 H unknown) (unknown) (no (unknown) (unknown) Blood Pressure (units (unknown) date) 120/82 unknown) (unknown) (no (unknown) (unknown) Blood Pressure (units (unknown) date) 121/81 135/82 unknown) (unknown) (no (unknown) (unknown) Blood Pressure (units (unknown) date) 122/83 128/79 unknown) (unknown) (no (unknown) (unknown) Blood Pressure (units (unknown) date) 123/79 121/83 unknown) (unknown) (no (unknown) (unknown) Blood Pressure (units (unknown) date) 125/81 127/75 unknown) (unknown) (no (unknown) (unknown) Blood Pressure (units (unknown) date) 125/90 unknown) (unknown) (no (unknown) (unknown) Blood Pressure (units (unknown) date) 129/84 117/83 unknown) (unknown) (no (unknown) (unknown) Blood Pressure (units (unknown) date) 131/75 unknown) (unknown) (no (unknown) (unknown) Blood Pressure (units (unknown) date) 131/85 153/82 H unknown) (unknown) (no (unknown) (unknown) Blood Pressure (units (unknown) date) 132/84 136/88 unknown) (unknown) (no (unknown) (unknown) Blood Pressure (units (unknown) date) 134/102 H unknown) (unknown) (no (unknown) (unknown) Blood Pressure (units (unknown) date) 134/82 unknown) (unknown) (no (unknown) (unknown) Blood Pressure (units (unknown) date) 134/87 unknown) (unknown) (no (unknown) (unknown) Blood Pressure (units (unknown) date) 136/92 H unknown) (unknown) (no (unknown) (unknown) Blood Pressure (units (unknown) date) 140/80 unknown) (unknown) (no (unknown) (unknown) Blood Pressure (units (unknown) date) 140/92 H unknown) (unknown) (no (unknown) (unknown) Blood Pressure (units (unknown) date) 141/93 H 137/96 H unknown) (unknown) (no (unknown) (unknown) Blood Pressure (units (unknown) date) 143/81 H 128/82 unknown) (unknown) (no (unknown) (unknown) Blood Pressure (units (unknown) date) 148/92 H unknown) (unknown) (no (unknown) (unknown) Blood Pressure (units (unknown) date) 148/93 H unknown) (unknown) (no (unknown) (unknown) Blood Pressure (units (unknown) date) 150/90 H 151/97 H unknown) (unknown) (no (unknown) (unknown) Blood Pressure (units (unknown) date) 150/97 H 152/86 H unknown) (unknown) (no (unknown) (unknown) CK-MB (CK-2) Rel (units (unknown) date) Index TNP unknown) (unknown) (no (unknown) (unknown) CK-MB (CK-2) Rel (units (unknown) date) Index unknown) (unknown) (no (unknown) (unknown) CK-MB (CK-2) TNP (units (unknown) date) unknown) (unknown) (no (unknown) (unknown) CK-MB (CK-2) (units (u nknown) date) unknown) (unknown) (no (unknown) (unknown) COVID PCR: (units (unk nown) date) Negative unknown) (unknown) (no (unknown) (unknown) Calcium 9.0 (units (un known) date) unknown) (unknown) (no (unknown) (unknown) Calcium (units (unkno wn) date) unknown) (unknown) (no (unknown) (unknown) Carbon Dioxide 23 (units (unknown) date) unknown) (unknown) (no (unknown) (unknown) Carbon Dioxide (units (unknown) date) unknown) (unknown) (no (unknown) (unknown) Chest x-ray (units (un known) date) radiology noted unknown) was a poor exam, document abnormal cardiopulmonary (unknown) (no (unknown) (unknown) Chief complaint: (units (unknown) date) Back pain unknown) (unknown) (no (unknown) (unknown) Chloride 106 (units (u nknown) date) unknown) (unknown) (no (unknown) (unknown) Chloride (units (unkno wn) date) unknown) (unknown) (no (unknown) (unknown) Code status: Full (units (unknown) date) unknown) (unknown) (no (unknown) (unknown) Creatinine 0.80 (units (unknown) date) unknown) (unknown) (no (unknown) (unknown) Creatinine (units (unk nown) date) unknown) (unknown) (no (unknown) (unknown) Critical Care (units ( unknown) date) time: unknown) (unknown) (no (unknown) (unknown) : 1935 (units (unknown) date) Acct:[id number] unknown) (unknown) (no (unknown) (unknown) DVT/VTE (units (unkno wn) date) prophylaxis: unknown) Patient on Xarelto, SCDs only (unknown) (no (unknown) (unknown) Date Patient (units (u nknown) date) Seen: 10/24/22 unknown) (unknown) (no (unknown) (unknown) Date of Service: (units (unknown) date) 10/24/22 unknown) (unknown) (no (unknown) (unknown) Disposition: (units (u nknown) date) Patient admitted unknown) to acute care for AFib with RVR, now in sinus (unknown) (no (unknown) (unknown) Dr. Villar in the (units (unknown) date) ED noted a unknown) possible developing ileus, will improve bowel (unknown) (no (unknown) (unknown) Environment (units (un known) date) unknown) (unknown) (no (unknown) (unknown) Eos # (Auto) 200 (units (unknown) date) unknown) (unknown) (no (unknown) (unknown) Eos # (Auto) (units (u nknown) date) unknown) (unknown) (no (unknown) (unknown) Eos % (Auto) 2.1 (units (unknown) date) unknown) (unknown) (no (unknown) (unknown) Eos % (Auto) (units (u nknown) date) unknown) (unknown) (no (unknown) (unknown) Estimated GFR > (units (unknown) date) 60 unknown) (unknown) (no (unknown) (unknown) Estimated GFR (units ( unknown) date) unknown) (unknown) (no (unknown) (unknown) Exam (units (unkno wn) date) unknown) (unknown) (no (unknown) (unknown) Family + Social (units (unknown) date) History unknown) (unknown) (no (unknown) (unknown) Feels Safe in (units ( unknown) date) Current Yes unknown) (unknown) (no (unknown) (unknown) Globulin 4.2 H (units (unknown) date) unknown) (unknown) (no (unknown) (unknown) Globulin (units (unkno wn) date) unknown) (unknown) (no (unknown) (unknown) Glucose 89 (units (unk nown) date) unknown) (unknown) (no (unknown) (unknown) Glucose (units (unkno wn) date) unknown) (unknown) (no (unknown) (unknown) Hct 45.9 (units (unkno wn) date) unknown) (unknown) (no (unknown) (unknown) Hct (units (unkno wn) date) unknown) (unknown) (no (unknown) (unknown) Hgb 15.6 (units (unkno wn) date) unknown) (unknown) (no (unknown) (unknown) Hgb (units (unkno wn) date) unknown) (unknown) (no (unknown) (unknown) History + (units (unkn own) date) Physical Report unknown) (unknown) (no (unknown) (unknown) History of (units (unk nown) date) Present Illness unknown) (unknown) (no (unknown) (unknown) Home Medications (units (unknown) date) and Allergies unknown) (unknown) (no (unknown) (unknown) I have personally (units (unknown) date) reviewed patient's unknown) chart notes from PCP, specialists, (unknown) (no (unknown) (unknown) I have utilized (units (unknown) date) all available unknown) immediate resources to obtain, update, or review (unknown) (no (unknown) (unknown) I spent a total (units (unknown) date) of [] minutes of unknown) critical care time on this patient's care (unknown) (no (unknown) (unknown) INR 1.5 H (units (unkn own) date) unknown) (unknown) (no (unknown) (unknown) INR (units (unkno wn) date) unknown) (unknown) (no (unknown) (unknown) [facility] (units (unknown) date) [address] unknown) [place] [address] (unknown) (no (unknown) (unknown) Nicolas Trorez (units (unknown) date) 86-year-old male unknown) slightly poor historian with history of AFib on (unknown) (no (unknown) (unknown) Laboratory (units (unk nown) date) Results - last 24 unknown) hr (unknown) (no (unknown) (unknown) Labs (units (unkno wn) date) unknown) (unknown) (no (unknown) (unknown) Labs: (units (unkno wn) date) unknown) (unknown) (no (unknown) (unknown) Lipase 169 (units (unk nown) date) unknown) (unknown) (no (unknown) (unknown) Lipase (units (unkno wn) date) unknown) (unknown) (no (unknown) (unknown) Lymph # (Auto) (units (unknown) date) 2300 unknown) (unknown) (no (unknown) (unknown) Lymph # (Auto) (units (unknown) date) unknown) (unknown) (no (unknown) (unknown) Lymph % (Auto) (units (unknown) date) 22.0 L unknown) (unknown) (no (unknown) (unknown) Lymph % (Auto) (units (unknown) date) unknown) (unknown) (no (unknown) (unknown) MCH 33.9 (units (unkno wn) date) unknown) (unknown) (no (unknown) (unknown) MCH (units (unkno wn) date) unknown) (unknown) (no (unknown) (unknown) MCHC 34.1 (units (unkn own) date) unknown) (unknown) (no (unknown) (unknown) MCHC (units (unkno wn) date) unknown) (unknown) (no (unknown) (unknown) MCV 99.4 (units (unkno wn) date) unknown) (unknown) (no (unknown) (unknown) MCV (units (unkno wn) date) unknown) (unknown) (no (unknown) (unknown) Magnesium 1.9 (units ( unknown) date) unknown) (unknown) (no (unknown) (unknown) Magnesium (units (unkn own) date) unknown) (unknown) (no (unknown) (unknown) Meds (units (unkno wn) date) unknown) (unknown) (no (unknown) (unknown) Brule # (Auto) (units ( unknown) date) 1100 H unknown) (unknown) (no (unknown) (unknown) Brule # (Auto) (units ( unknown) date) unknown) (unknown) (no (unknown) (unknown) Brule % (Auto) (units ( unknown) date) 11.0 unknown) (unknown) (no (unknown) (unknown) Brule % (Auto) (units ( unknown) date) unknown) (unknown) (no (unknown) (unknown) Multiple lumbar (units (unknown) date) compression unknown) fractures L1-L4, hepatic steatosis, noted gallstones (unknown) (no (unknown) (unknown) Narrative: (units (unk nown) date) unknown) (unknown) (no (unknown) (unknown) Neut # (Auto) (units ( unknown) date) 6500 unknown) (unknown) (no (unknown) (unknown) Neut # (Auto) (units ( unknown) date) unknown) (unknown) (no (unknown) (unknown) Neut % (Auto) (units ( unknown) date) 63.6 unknown) (unknown) (no (unknown) (unknown) Neut % (Auto) (units ( unknown) date) unknown) (unknown) (no (unknown) (unknown) No Known Drug (units ( unknown) date) Allergies Allergy unknown) Verified 10/24/22 21:16 (unknown) (no (unknown) (unknown) Objective (units (unkn own) date) unknown) (unknown) (no (unknown) (unknown) On admit patient (units (unknown) date) is stable temp unknown) 98.2?, BP 140/80, HR 90 sinus rhythm, RR 15, O2 (unknown) (no (unknown) (unknown) Oxygen Delivery (units (unknown) date) Method Room Air unknown) (unknown) (no (unknown) (unknown) Oxygen Delivery (units (unknown) date) Method unknown) (unknown) (no (unknown) (unknown) PT 17.4 H (units (unkn own) date) unknown) (unknown) (no (unknown) (unknown) PT (units (unkno wn) date) unknown) (unknown) (no (unknown) (unknown) Patient History (units (unknown) date) unknown) (unknown) (no (unknown) (unknown) Patient: (units (unkno wn) date) Nicolas Neely unknown) MR#: [id number] (unknown) (no (unknown) (unknown) Plt Count 218 (units ( unknown) date) unknown) (unknown) (no (unknown) (unknown) Plt Count (units (unkn own) date) unknown) (unknown) (no (unknown) (unknown) Potassium 3.8 (units ( unknown) date) unknown) (unknown) (no (unknown) (unknown) Potassium (units (unkn own) date) unknown) (unknown) (no (unknown) (unknown) Provider: (units (unkn own) date) Ana Maria Ortega unknown) 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 (unknown) (no (unknown) (unknown) Pulse Oximetry 94 (units (unknown) date) unknown) (unknown) (no (unknown) (unknown) Pulse Oximetry 95 (units (unknown) date) 95 unknown) (unknown) (no (unknown) (unknown) Pulse Oximetry 95 (units (unknown) date) 96 unknown) (unknown) (no (unknown) (unknown) Pulse Oximetry 95 (units (unknown) date) unknown) (unknown) (no (unknown) (unknown) Pulse Oximetry 96 (units (unknown) date) 95 unknown) (unknown) (no (unknown) (unknown) Pulse Oximetry 96 (units (unknown) date) 97 unknown) (unknown) (no (unknown) (unknown) Pulse Oximetry 96 (units (unknown) date) unknown) (unknown) (no (unknown) (unknown) Pulse Oximetry 97 (units (unknown) date) 97 unknown) (unknown) (no (unknown) (unknown) Pulse Oximetry 98 (units (unknown) date) 98 unknown) (unknown) (no (unknown) (unknown) Pulse Oximetry 98 (units (unknown) date) 99 unknown) (unknown) (no (unknown) (unknown) Pulse Oximetry 98 (units (unknown) date) unknown) (unknown) (no (unknown) (unknown) Pulse Oximetry 99 (units (unknown) date) 98 unknown) (unknown) (no (unknown) (unknown) Pulse Oximetry 99 (units (unknown) date) unknown) (unknown) (no (unknown) (unknown) Pulse Rate 133 H (units (unknown) date) unknown) (unknown) (no (unknown) (unknown) Pulse Rate 135 H (units (unknown) date) 118 H unknown) (unknown) (no (unknown) (unknown) Pulse Rate 135 H (units (unknown) date) 130 H unknown) (unknown) (no (unknown) (unknown) Pulse Rate 136 H (units (unknown) date) 131 H unknown) (unknown) (no (unknown) (unknown) Pulse Rate 138 H (units (unknown) date) 140 H unknown) (unknown) (no (unknown) (unknown) Pulse Rate 143 H (units (unknown) date) 136 H unknown) (unknown) (no (unknown) (unknown) Pulse Rate 85 86 (units (unknown) date) unknown) (unknown) (no (unknown) (unknown) Pulse Rate 85 (units ( unknown) date) unknown) (unknown) (no (unknown) (unknown) Pulse Rate 86 (units ( unknown) date) unknown) (unknown) (no (unknown) (unknown) Pulse Rate 87 84 (units (unknown) date) unknown) (unknown) (no (unknown) (unknown) Pulse Rate 87 89 (units (unknown) date) unknown) (unknown) (no (unknown) (unknown) Pulse Rate 88 89 (units (unknown) date) unknown) (unknown) (no (unknown) (unknown) Pulse Rate 90 85 (units (unknown) date) unknown) (unknown) (no (unknown) (unknown) Pulse Rate 90 91 (units (unknown) date) H unknown) (unknown) (no (unknown) (unknown) Pulse Rate 90 (units ( unknown) date) unknown) (unknown) (no (unknown) (unknown) Pulse Rate 91 H (units (unknown) date) 103 H unknown) (unknown) (no (unknown) (unknown) Pulse Rate 91 H (units (unknown) date) 90 unknown) (unknown) (no (unknown) (unknown) Pulse Rate 91 H (units (unknown) date) unknown) (unknown) (no (unknown) (unknown) Pulse Rate 92 H (units (unknown) date) 90 unknown) (unknown) (no (unknown) (unknown) Pulse Rate 92 H (units (unknown) date) unknown) (unknown) (no (unknown) (unknown) Pulse Rate 93 H (units (unknown) date) unknown) (unknown) (no (unknown) (unknown) RBC 4.62 (units (unkno wn) date) unknown) (unknown) (no (unknown) (unknown) RBC (units (unkno wn) date) unknown) (unknown) (no (unknown) (unknown) RDW 14.5 (units (unkno wn) date) unknown) (unknown) (no (unknown) (unknown) RDW (units (unkno wn) date) unknown) (unknown) (no (unknown) (unknown) Respiratory Rate (units (unknown) date) 11 L 17 unknown) (unknown) (no (unknown) (unknown) Respiratory Rate (units (unknown) date) 11 L unknown) (unknown) (no (unknown) (unknown) Respiratory Rate (units (unknown) date) 13 10 L unknown) (unknown) (no (unknown) (unknown) Respiratory Rate (units (unknown) date) 14 14 unknown) (unknown) (no (unknown) (unknown) Respiratory Rate (units (unknown) date) 14 21 unknown) (unknown) (no (unknown) (unknown) Respiratory Rate (units (unknown) date) 14 unknown) (unknown) (no (unknown) (unknown) Respiratory Rate (units (unknown) date) 15 13 unknown) (unknown) (no (unknown) (unknown) Respiratory Rate (units (unknown) date) 15 15 unknown) (unknown) (no (unknown) (unknown) Respiratory Rate (units (unknown) date) 15 16 unknown) (unknown) (no (unknown) (unknown) Respiratory Rate (units (unknown) date) 15 22 unknown) (unknown) (no (unknown) (unknown) Respiratory Rate (units (unknown) date) 15 unknown) (unknown) (no (unknown) (unknown) Respiratory Rate (units (unknown) date) 16 17 unknown) (unknown) (no (unknown) (unknown) Respiratory Rate (units (unknown) date) 16 unknown) (unknown) (no (unknown) (unknown) Respiratory Rate (units (unknown) date) 17 15 unknown) (unknown) (no (unknown) (unknown) Respiratory Rate (units (unknown) date) 17 unknown) (unknown) (no (unknown) (unknown) Respiratory Rate (units (unknown) date) 18 12 unknown) (unknown) (no (unknown) (unknown) Respiratory Rate (units (unknown) date) 18 unknown) (unknown) (no (unknown) (unknown) Respiratory Rate (units (unknown) date) 19 22 unknown) (unknown) (no (unknown) (unknown) Respiratory Rate (units (unknown) date) 20 13 unknown) (unknown) (no (unknown) (unknown) Respiratory Rate (units (unknown) date) 20 unknown) (unknown) (no (unknown) (unknown) Respiratory Rate (units (unknown) date) 21 11 L unknown) (unknown) (no (unknown) (unknown) Respiratory Rate (units (unknown) date) 23 15 unknown) (unknown) (no (unknown) (unknown) Result Diagrams: (units (unknown) date) unknown) (unknown) (no (unknown) (unknown) Review of Systems (units (unknown) date) unknown) (unknown) (no (unknown) (unknown) SARS-CoV-2 (PCR) (units (unknown) date) Negative unknown) (unknown) (no (unknown) (unknown) SARS-CoV-2 (PCR) (units (unknown) date) unknown) (unknown) (no (unknown) (unknown) Safety + (units (unkno wn) date) Behavioral: unknown) (unknown) (no (unknown) (unknown) Signed By: (units (unk nown) date) unknown) (unknown) (no (unknown) (unknown) Smoking Status (units (unknown) date) Never smoker unknown) (unknown) (no (unknown) (unknown) Sodium 139 (units (unk nown) date) unknown) (unknown) (no (unknown) (unknown) Sodium (units (unkno wn) date) unknown) (unknown) (no (unknown) (unknown) Surrogate (units (unkn own) date) decision maker: unknown) Son, patient also has a full-time caregiver [place] (unknown) (no (unknown) (unknown) Temperature 98.2 (units (unknown) date) F unknown) (unknown) (no (unknown) (unknown) Temperature (units (un known) date) unknown) (unknown) (no (unknown) (unknown) Threatened By a (units (unknown) date) Person unknown) (unknown) (no (unknown) (unknown) Time Patient (units (u nknown) date) Seen: 22:04 unknown) (unknown) (no (unknown) (unknown) Time Spent With (units (unknown) date) Patient unknown) (unknown) (no (unknown) (unknown) Tobacco + (units (unkn own) date) Substance use: unknown) (unknown) (no (unknown) (unknown) Total Bilirubin (units (unknown) date) 1.1 unknown) (unknown) (no (unknown) (unknown) Total Bilirubin (units (unknown) date) unknown) (unknown) (no (unknown) (unknown) Total Creatine (units (unknown) date) Kinase < 20 L unknown) (unknown) (no (unknown) (unknown) Total Creatine (units (unknown) date) Kinase unknown) (unknown) (no (unknown) (unknown) Total Protein 7.9 (units (unknown) date) unknown) (unknown) (no (unknown) (unknown) Total Protein (units ( unknown) date) unknown) (unknown) (no (unknown) (unknown) Troponin I < (units (u nknown) date) 0.012 unknown) (unknown) (no (unknown) (unknown) Troponin I (units (unk nown) date) unknown) (unknown) (no (unknown) (unknown) Vital Signs (units (un known) date) unknown) (unknown) (no (unknown) (unknown) WBC 10.3 (units (unkno wn) date) unknown) (unknown) (no (unknown) (unknown) WBC (units (unkno wn) date) unknown) (unknown) (no (unknown) (unknown) Xarelto for many (units (unknown) date) years, pacemaker unknown) placement for sick sinus syndrome, history of (unknown) (no (unknown) (unknown) Xarelto, multiple (units (unknown) date) healing lumbar unknown) compression fractures, bilateral rib fractures (unknown) (no (unknown) (unknown) [Embedded Image (units (unknown) date) Not Available] unknown) (unknown) (no (unknown) (unknown) admission (units (unkn own) date) unknown) (unknown) (no (unknown) (unknown) admits that the (units (unknown) date) majority of his unknown) day is consume with severe pain. (unknown) (no (unknown) (unknown) alcohol intake (units (unknown) date) frequency unknown) holiday/special occasion (unknown) (no (unknown) (unknown) and continues to (units (unknown) date) be in sinus unknown) rhythm. No WBC, mono 11,000. Stable electrolytes (unknown) (no (unknown) (unknown) comparison for (units (unknown) date) labs diagnostics unknown) or EKG in system. CT of chest abdomen pelvis: (unknown) (no (unknown) (unknown) complications (units ( unknown) date) because of the unknown) severe malnutrition in relation to acute (unknown) (no (unknown) (unknown) denies any chest (units (unknown) date) pain but does unknown) state that he is frequently short of breath but (unknown) (no (unknown) (unknown) diagnostic (units (unk nown) date) imaging, and unknown) laboratory results. (unknown) (no (unknown) (unknown) documented. (units (un known) date) unknown) (unknown) (no (unknown) (unknown) emptying but no (units (unknown) date) findings on unknown) imaging at this time. Dr. Altman consulted does (unknown) (no (unknown) (unknown) evaluated in (units (u nknown) date) imaging completed unknown) prior at another facility, and has seen Dr. Norman (unknown) (no (unknown) (unknown) for evaluation (units (unknown) date) episodes of unknown) shortness of breath and fatigue but primarily due to (unknown) (no (unknown) (unknown) for multiple (units (u nknown) date) falls and gait unknown) instability, and dietary consult for BMI 22.8. (unknown) (no (unknown) (unknown) illness/chronic (units (unknown) date) illness. This unknown) increases the difficulty in complexity of medical (unknown) (no (unknown) (unknown) inability to (units (u nknown) date) function at home unknown) due to pain. (unknown) (no (unknown) (unknown) intake and (units (unk nown) date) nutrition. unknown) (unknown) (no (unknown) (unknown) lumbar, clavicle, (units (unknown) date) left, ribs, unknown) bilaterally, acute on chronic, present on (unknown) (no (unknown) (unknown) management and (units (unknown) date) increases the unknown) chances poor outcomes such as mortality and (unknown) (no (unknown) (unknown) morbidity as well (units (unknown) date) as impaired wound unknown) healing, and immune suppression. (unknown) (no (unknown) (unknown) multiple lumbar (units (unknown) date) compression unknown) fractures, clavicle fracture, rib fractures presents (unknown) (no (unknown) (unknown) negative, initial (units (unknown) date) EKG in ED AFib unknown) with a rate of 136, post cardioversion sinus (unknown) (no (unknown) (unknown) nonobstructing, (units (unknown) date) cholelithiasis, unknown) colonic diverticulosis. Patient was seen (unknown) (no (unknown) (unknown) not feel that the (units (unknown) date) patient requires unknown) surgical intervention, will consult tomorrow. (unknown) (no (unknown) (unknown) ortho regarding (units (unknown) date) multiple unknown) fractures, is scheduled for follow-up on 10/25/2021. (unknown) (no (unknown) (unknown) osteopenic (units (unk nown) date) compression unknown) fractures with retropulsed fracture segment at L1 (unknown) (no (unknown) (unknown) potassium 3.8, (units (unknown) date) Mag 1.9, PT 17.4, unknown) INR 1.5, initial troponin negative, COVID (unknown) (no (unknown) (unknown) process but (units (un known) date) nothing further unknown) noted. Patient admitted for AFib with RVR, pacer on (unknown) (no (unknown) (unknown) resulting in (units (u nknown) date) moderate central unknown) stenosis.? He denies any numbness, tingling or (unknown) (no (unknown) (unknown) rhythm with sinus (units (unknown) date) arrhythmia rate of unknown) [address] and T-wave changes, no (unknown) (no (unknown) (unknown) rhythm, echo (units (u nknown) date) tomorrow, pain unknown) control for fractures, ortho consult, PT/OT consult (unknown) (no (unknown) (unknown) saturation 98% on (units (unknown) date) room air. In ED unknown) patient was in AFib with RVR heart rates 143 (unknown) (no (unknown) (unknown) severe midline (units (unknown) date) low back pain.? He unknown) had 2 falls, the most recent of which was in (unknown) (no (unknown) (unknown) significant pain (units (unknown) date) that is worse with unknown) range of motion and improves with rest.? He (unknown) (no (unknown) (unknown) the end of (units (unkn own) date) September and has unknown) advanced imaging from our facility noting multilevel (unknown) (no (unknown) (unknown) the patient's (units ( unknown) date) current unknown) medications. (unknown) (no (unknown) (unknown) today; this time (units (unknown) date) is exclusive of unknown) procedural time. (unknown) (no (unknown) (unknown) ventricular (units (un known) date) tachycardia, unknown) osteoporosis, frequent falls, previously seen for (unknown) (no (unknown) (unknown) weakness, denies (units (unknown) date) any loss of unknown) control of bowel or bladder.? He states he has Result panel 255 (unknown) (no date) (unknown) (unknown) < 10 mg/dl (unkn own) (unknown) (no date) (unknown) (unknown) < 10 mg/dl (unkn own) Result panel 256 (unknown) (no date) (unknown) (unknown) 3110 pg/ml (unkn own) (unknown) (no date) (unknown) (unknown) 3110 pg/ml (unkn own) Result panel 257 (unknown) (no date) (unknown) (unknown) 1.09 ng/dl (unkn own) Result panel 258 (unknown) (no date) (unknown) (unknown) 0.023 ng/ml (unkn own) (unknown) (no date) (unknown) (unknown) 0.023 ng/ml (unkn own) (unknown) (no date) (unknown) (unknown) 1.09 ng/dl (unkn own) (unknown) (no date) (unknown) (unknown) 8.95 uiu/ml (unkn own) Result panel 259 (unknown) (no (unknown) (unknown) (no value) (units (unk nown) date) unknown) (unknown) (no (unknown) (unknown) ([place]) (units (unkn own) date) unknown) (unknown) (no (unknown) (unknown) (past 8 hours): (units (unknown) date) unknown) (unknown) (no (unknown) (unknown) -Social (units (unkno wn) date) Determinants of unknown) Health that impact treatment or disposition: age, (unknown) (no (unknown) (unknown) -as evidence by (units (unknown) date) BMI 22.8 unknown) (unknown) (no (unknown) (unknown) -dietary consult (units (unknown) date) ordered to unknown) evaluate and implement steps to improve caloric (unknown) (no (unknown) (unknown) -patient's (units (unk nown) date) malnutrition unknown) places them at high risk for medical and surgical (unknown) (no (unknown) (unknown) 10/24/22 10/24/22 (units (unknown) date) 10/24/22 unknown) (unknown) (no (unknown) (unknown) 10/24/22 16:40 (units (unknown) date) unknown) (unknown) (no (unknown) (unknown) 10/24/22 History (units (unknown) date) unknown) (unknown) (no (unknown) (unknown) 10/24/22 (units (unkno wn) date) unknown) (unknown) (no (unknown) (unknown) [id number] (units (unkno wn) date) unknown) (unknown) (no (unknown) (unknown) 1. AFib with RVR, (units (unknown) date) acute on chronic, unknown) on Xarelto, present on admission (unknown) (no (unknown) (unknown) 16:14 10/24/22 (units (unknown) date) unknown) (unknown) (no (unknown) (unknown) 16:40 16:40 16:40 (units (unknown) date) unknown) (unknown) (no (unknown) (unknown) 16:51 10/24/22 (units (unknown) date) unknown) (unknown) (no (unknown) (unknown) 16:52 10/24/22 (units (unknown) date) unknown) (unknown) (no (unknown) (unknown) 16:52 (units (unkno wn) date) unknown) (unknown) (no (unknown) (unknown) 16:55 (units (unkno wn) date) unknown) (unknown) (no (unknown) (unknown) 17:00 10/24/22 (units (unknown) date) unknown) (unknown) (no (unknown) (unknown) 17:00 (units (unkno wn) date) unknown) (unknown) (no (unknown) (unknown) 17:16 10/24/22 (units (unknown) date) unknown) (unknown) (no (unknown) (unknown) 17:20 10/24/22 (units (unknown) date) unknown) (unknown) (no (unknown) (unknown) 17:20 (units (unkno wn) date) unknown) (unknown) (no (unknown) (unknown) 17:30 10/24/22 (units (unknown) date) unknown) (unknown) (no (unknown) (unknown) 17:31 10/24/22 (units (unknown) date) unknown) (unknown) (no (unknown) (unknown) 17:31 (units (unkno wn) date) unknown) (unknown) (no (unknown) (unknown) 17:35 10/24/22 (units (unknown) date) unknown) (unknown) (no (unknown) (unknown) 17:35 (units (unkno wn) date) unknown) (unknown) (no (unknown) (unknown) 17:40 10/24/22 (units (unknown) date) unknown) (unknown) (no (unknown) (unknown) 17:45 10/24/22 (units (unknown) date) unknown) (unknown) (no (unknown) (unknown) 17:51 10/24/22 (units (unknown) date) unknown) (unknown) (no (unknown) (unknown) 17:51 (units (unkno wn) date) unknown) (unknown) (no (unknown) (unknown) 17:55 10/24/22 (units (unknown) date) unknown) (unknown) (no (unknown) (unknown) 17:55 (units (unkno wn) date) unknown) (unknown) (no (unknown) (unknown) 18:00 10/24/22 (units (unknown) date) unknown) (unknown) (no (unknown) (unknown) 18:05 10/24/22 (units (unknown) date) unknown) (unknown) (no (unknown) (unknown) 18:05 (units (unkno wn) date) unknown) (unknown) (no (unknown) (unknown) 18:10 10/24/22 (units (unknown) date) unknown) (unknown) (no (unknown) (unknown) 18:10 (units (unkno wn) date) unknown) (unknown) (no (unknown) (unknown) 18:15 10/24/22 (units (unknown) date) unknown) (unknown) (no (unknown) (unknown) 18:20 10/24/22 (units (unknown) date) unknown) (unknown) (no (unknown) (unknown) 18:20 (units (unkno wn) date) unknown) (unknown) (no (unknown) (unknown) 18:25 10/24/22 (units (unknown) date) unknown) (unknown) (no (unknown) (unknown) 18:25 (units (unkno wn) date) unknown) (unknown) (no (unknown) (unknown) 18:30 10/24/22 (units (unknown) date) unknown) (unknown) (no (unknown) (unknown) 19:00 (units (unkno wn) date) unknown) (unknown) (no (unknown) (unknown) 19:07 10/24/22 (units (unknown) date) unknown) (unknown) (no (unknown) (unknown) 19:10 10/24/22 (units (unknown) date) unknown) (unknown) (no (unknown) (unknown) 19:10 (units (unkno wn) date) unknown) (unknown) (no (unknown) (unknown) 19:15 10/24/22 (units (unknown) date) unknown) (unknown) (no (unknown) (unknown) 19:15 (units (unkno wn) date) unknown) (unknown) (no (unknown) (unknown) 19:21 10/24/22 (units (unknown) date) unknown) (unknown) (no (unknown) (unknown) 19:25 10/24/22 (units (unknown) date) unknown) (unknown) (no (unknown) (unknown) 19:25 (units (unkno wn) date) unknown) (unknown) (no (unknown) (unknown) 19:30 10/24/22 (units (unknown) date) unknown) (unknown) (no (unknown) (unknown) 19:30 (units (unkno wn) date) unknown) (unknown) (no (unknown) (unknown) 19:35 10/24/22 (units (unknown) date) unknown) (unknown) (no (unknown) (unknown) 19:40 10/24/22 (units (unknown) date) unknown) (unknown) (no (unknown) (unknown) 19:40 (units (unkno wn) date) unknown) (unknown) (no (unknown) (unknown) 19:45 10/24/22 (units (unknown) date) unknown) (unknown) (no (unknown) (unknown) 19:45 (units (unkno wn) date) unknown) (unknown) (no (unknown) (unknown) 19:50 10/24/22 (units (unknown) date) unknown) (unknown) (no (unknown) (unknown) 19:55 10/24/22 (units (unknown) date) unknown) (unknown) (no (unknown) (unknown) 19:55 (units (unkno wn) date) unknown) (unknown) (no (unknown) (unknown) 2. Unstable gait, (units (unknown) date) frequent falls, unknown) resulting in multiple compression fractures, (unknown) (no (unknown) (unknown) 20:00 10/24/22 (units (unknown) date) unknown) (unknown) (no (unknown) (unknown) 20:00 (units (unkno wn) date) unknown) (unknown) (no (unknown) (unknown) 20:06 10/24/22 (units (unknown) date) unknown) (unknown) (no (unknown) (unknown) 20:10 10/24/22 (units (unknown) date) unknown) (unknown) (no (unknown) (unknown) 20:10 (units (unkno wn) date) unknown) (unknown) (no (unknown) (unknown) 20:15 10/24/22 (units (unknown) date) unknown) (unknown) (no (unknown) (unknown) 20:15 (units (unkno wn) date) unknown) (unknown) (no (unknown) (unknown) 20:20 10/24/22 (units (unknown) date) unknown) (unknown) (no (unknown) (unknown) 20:30 10/24/22 (units (unknown) date) unknown) (unknown) (no (unknown) (unknown) 20:30 (units (unkno wn) date) unknown) (unknown) (no (unknown) (unknown) 20:45 01/15/23 (units (unknown) date) unknown) (unknown) (no (unknown) (unknown) 20:45 (units (unkno wn) date) unknown) (unknown) (no (unknown) (unknown) 3 through 8 (units (un known) date) right, left medial unknown) clavicle fracture unstable gait frequent falls. (unknown) (no (unknown) (unknown) 3. Malnutrition, (units (unknown) date) mild, acute on unknown) chronic, present on admission (unknown) (no (unknown) (unknown) 30, and 2 (units (unkn own) date) episodes of V-tach unknown) 8 attend be runs. Was successfully cardioverted (unknown) (no (unknown) (unknown) ALT 27 (units (unkno wn) date) unknown) (unknown) (no (unknown) (unknown) ALT (units (unkno wn) date) unknown) (unknown) (no (unknown) (unknown) APTT 36 (units (unkno wn) date) unknown) (unknown) (no (unknown) (unknown) APTT (units (unkno wn) date) unknown) (unknown) (no (unknown) (unknown) AST 32 (units (unkno wn) date) unknown) (unknown) (no (unknown) (unknown) AST (units (unkno wn) date) unknown) (unknown) (no (unknown) (unknown) Age/Sex: 86 / M (units (unknown) date) unknown) (unknown) (no (unknown) (unknown) Albumin 3.7 (units (un known) date) unknown) (unknown) (no (unknown) (unknown) Albumin (units (unkno wn) date) unknown) (unknown) (no (unknown) (unknown) Albumin/Globulin (units (unknown) date) Ratio 0.9 L unknown) (unknown) (no (unknown) (unknown) Albumin/Globulin (units (unknown) date) Ratio unknown) (unknown) (no (unknown) (unknown) Alkaline (units (unkno wn) date) Phosphatase 108 unknown) (unknown) (no (unknown) (unknown) Alkaline (units (unkno wn) date) Phosphatase unknown) (unknown) (no (unknown) (unknown) All 12 point (units (un known) date) systems reviewed unknown) with the patient and are negative except otherwise (unknown) (no (unknown) (unknown) Allergies (units (unkn own) date) unknown) (unknown) (no (unknown) (unknown) Allergy/AdvReac (units (unknown) date) Type Severity unknown) Reaction Status Date / Time (unknown) (no (unknown) (unknown) Assessment + Plan (units (unknown) date) narrative: unknown) (unknown) (no (unknown) (unknown) Assessment + Plan (units (unknown) date) unknown) (unknown) (no (unknown) (unknown) BUN 9 (units (unkno wn) date) unknown) (unknown) (no (unknown) (unknown) BUN (units (unkno wn) date) unknown) (unknown) (no (unknown) (unknown) BUN/Creatinine (units (unknown) date) Ratio 11.3 unknown) (unknown) (no (unknown) (unknown) BUN/Creatinine (units (unknown) date) Ratio unknown) (unknown) (no (unknown) (unknown) Baso # (Auto) 100 (units (unknown) date) unknown) (unknown) (no (unknown) (unknown) Baso # (Auto) (units ( unknown) date) unknown) (unknown) (no (unknown) (unknown) Baso % (Auto) 1.3 (units (unknown) date) unknown) (unknown) (no (unknown) (unknown) Baso % (Auto) (units ( unknown) date) unknown) (unknown) (no (unknown) (unknown) Been Physically (units (unknown) date) Hurt or No unknown) (unknown) (no (unknown) (unknown) Blood Pressure (units (unknown) date) 105/80 unknown) (unknown) (no (unknown) (unknown) Blood Pressure (units (unknown) date) 118/81 unknown) (unknown) (no (unknown) (unknown) Blood Pressure (units (unknown) date) 119/94 H unknown) (unknown) (no (unknown) (unknown) Blood Pressure (units (unknown) date) 120/82 unknown) (unknown) (no (unknown) (unknown) Blood Pressure (units (unknown) date) 121/81 135/82 unknown) (unknown) (no (unknown) (unknown) Blood Pressure (units (unknown) date) 122/83 128/79 unknown) (unknown) (no (unknown) (unknown) Blood Pressure (units (unknown) date) 123/79 121/83 unknown) (unknown) (no (unknown) (unknown) Blood Pressure (units (unknown) date) 125/81 127/75 unknown) (unknown) (no (unknown) (unknown) Blood Pressure (units (unknown) date) 125/90 unknown) (unknown) (no (unknown) (unknown) Blood Pressure (units (unknown) date) 129/84 117/83 unknown) (unknown) (no (unknown) (unknown) Blood Pressure (units (unknown) date) 131/75 unknown) (unknown) (no (unknown) (unknown) Blood Pressure (units (unknown) date) 131/85 153/82 H unknown) (unknown) (no (unknown) (unknown) Blood Pressure (units (unknown) date) 132/84 136/88 unknown) (unknown) (no (unknown) (unknown) Blood Pressure (units (unknown) date) 134/102 H unknown) (unknown) (no (unknown) (unknown) Blood Pressure (units (unknown) date) 134/82 unknown) (unknown) (no (unknown) (unknown) Blood Pressure (units (unknown) date) 134/87 unknown) (unknown) (no (unknown) (unknown) Blood Pressure (units (unknown) date) 136/92 H unknown) (unknown) (no (unknown) (unknown) Blood Pressure (units (unknown) date) 140/80 unknown) (unknown) (no (unknown) (unknown) Blood Pressure (units (unknown) date) 140/92 H unknown) (unknown) (no (unknown) (unknown) Blood Pressure (units (unknown) date) 141/93 H 137/96 H unknown) (unknown) (no (unknown) (unknown) Blood Pressure (units (unknown) date) 143/81 H 128/82 unknown) (unknown) (no (unknown) (unknown) Blood Pressure (units (unknown) date) 148/92 H unknown) (unknown) (no (unknown) (unknown) Blood Pressure (units (unknown) date) 148/93 H unknown) (unknown) (no (unknown) (unknown) Blood Pressure (units (unknown) date) 150/90 H 151/97 H unknown) (unknown) (no (unknown) (unknown) Blood Pressure (units (unknown) date) 150/97 H 152/86 H unknown) (unknown) (no (unknown) (unknown) CK-MB (CK-2) Rel (units (unknown) date) Index TNP unknown) (unknown) (no (unknown) (unknown) CK-MB (CK-2) Rel (units (unknown) date) Index unknown) (unknown) (no (unknown) (unknown) CK-MB (CK-2) TNP (units (unknown) date) unknown) (unknown) (no (unknown) (unknown) CK-MB (CK-2) (units (u nknown) date) unknown) (unknown) (no (unknown) (unknown) COVID PCR: (units (unk nown) date) Negative unknown) (unknown) (no (unknown) (unknown) Calcium 9.0 (units (un known) date) unknown) (unknown) (no (unknown) (unknown) Calcium (units (unkno wn) date) unknown) (unknown) (no (unknown) (unknown) Carbon Dioxide 23 (units (unknown) date) unknown) (unknown) (no (unknown) (unknown) Carbon Dioxide (units (unknown) date) unknown) (unknown) (no (unknown) (unknown) Chest x-ray (units (un known) date) radiology noted unknown) was a poor exam, document abnormal cardiopulmonary (unknown) (no (unknown) (unknown) Chief complaint: (units (unknown) date) Back pain unknown) (unknown) (no (unknown) (unknown) Chloride 106 (units (u nknown) date) unknown) (unknown) (no (unknown) (unknown) Chloride (units (unkno wn) date) unknown) (unknown) (no (unknown) (unknown) Code status: Full (units (unknown) date) unknown) (unknown) (no (unknown) (unknown) Complex-Vitamin (units (unknown) date) B12 tablet) unknown) (unknown) (no (unknown) (unknown) Creatinine 0.80 (units (unknown) date) unknown) (unknown) (no (unknown) (unknown) Creatinine (units (unk nown) date) unknown) (unknown) (no (unknown) (unknown) Critical Care (units ( unknown) date) time: unknown) (unknown) (no (unknown) (unknown) : 1935 (units (unknown) date) Acct:[id number] unknown) (unknown) (no (unknown) (unknown) DVT/VTE (units (unkno wn) date) prophylaxis: unknown) Patient on Xarelto, SCDs only (unknown) (no (unknown) (unknown) Date Patient (units (u nknown) date) Seen: 10/24/22 unknown) (unknown) (no (unknown) (unknown) Date of Service: (units (unknown) date) 10/24/22 unknown) (unknown) (no (unknown) (unknown) Disposition: (units (u nknown) date) Patient admitted unknown) to acute care for AFib with RVR, now in sinus (unknown) (no (unknown) (unknown) Dr. Villar in the (units (unknown) date) ED noted a unknown) possible developing ileus, will improve bowel (unknown) (no (unknown) (unknown) Environment (units (un known) date) unknown) (unknown) (no (unknown) (unknown) Eos # (Auto) 200 (units (unknown) date) unknown) (unknown) (no (unknown) (unknown) Eos # (Auto) (units (u nknown) date) unknown) (unknown) (no (unknown) (unknown) Eos % (Auto) 2.1 (units (unknown) date) unknown) (unknown) (no (unknown) (unknown) Eos % (Auto) (units (u nknown) date) unknown) (unknown) (no (unknown) (unknown) Estimated GFR > (units (unknown) date) 60 unknown) (unknown) (no (unknown) (unknown) Estimated GFR (units ( unknown) date) unknown) (unknown) (no (unknown) (unknown) Exam (units (unkno wn) date) unknown) (unknown) (no (unknown) (unknown) Family + Social (units (unknown) date) History unknown) (unknown) (no (unknown) (unknown) Feels Safe in (units ( unknown) date) Current Yes unknown) (unknown) (no (unknown) (unknown) Globulin 4.2 H (units (unknown) date) unknown) (unknown) (no (unknown) (unknown) Globulin (units (unkno wn) date) unknown) (unknown) (no (unknown) (unknown) Glucose 89 (units (unk nown) date) unknown) (unknown) (no (unknown) (unknown) Glucose (units (unkno wn) date) unknown) (unknown) (no (unknown) (unknown) Hct 45.9 (units (unkno wn) date) unknown) (unknown) (no (unknown) (unknown) Hct (units (unkno wn) date) unknown) (unknown) (no (unknown) (unknown) Hgb 15.6 (units (unkno wn) date) unknown) (unknown) (no (unknown) (unknown) Hgb (units (unkno wn) date) unknown) (unknown) (no (unknown) (unknown) History + (units (unkn own) date) Physical Report unknown) (unknown) (no (unknown) (unknown) History of (units (unk nown) date) Present Illness unknown) (unknown) (no (unknown) (unknown) History (units (unkno wn) date) unknown) (unknown) (no (unknown) (unknown) Home Medications (units (unknown) date) and Allergies unknown) (unknown) (no (unknown) (unknown) Home Medications (units (unknown) date) unknown) (unknown) (no (unknown) (unknown) I have personally (units (unknown) date) reviewed patient's unknown) chart notes from PCP, specialists, (unknown) (no (unknown) (unknown) I have utilized (units (unknown) date) all available unknown) immediate resources to obtain, update, or review (unknown) (no (unknown) (unknown) I spent a total (units (unknown) date) of [] minutes of unknown) critical care time on this patient's care (unknown) (no (unknown) (unknown) INR 1.5 H (units (unkn own) date) unknown) (unknown) (no (unknown) (unknown) INR (units (unkno wn) date) unknown) (unknown) (no (unknown) (unknown) [facility] (units (unknown) date) [address] unknown) [place] [address] (unknown) (no (unknown) (unknown) Nicolas Torrez (units (unknown) date) 86-year-old male unknown) slightly poor historian with history of AFib on (unknown) (no (unknown) (unknown) Laboratory (units (unk nown) date) Results - last 24 unknown) hr (unknown) (no (unknown) (unknown) Labs (units (unkno wn) date) unknown) (unknown) (no (unknown) (unknown) Labs: (units (unkno wn) date) unknown) (unknown) (no (unknown) (unknown) Lipase 169 (units (unk nown) date) unknown) (unknown) (no (unknown) (unknown) Lipase (units (unkno wn) date) unknown) (unknown) (no (unknown) (unknown) Lymph # (Auto) (units (unknown) date) 2300 unknown) (unknown) (no (unknown) (unknown) Lymph # (Auto) (units (unknown) date) unknown) (unknown) (no (unknown) (unknown) Lymph % (Auto) (units (unknown) date) 22.0 L unknown) (unknown) (no (unknown) (unknown) Lymph % (Auto) (units (unknown) date) unknown) (unknown) (no (unknown) (unknown) MCH 33.9 (units (unkno wn) date) unknown) (unknown) (no (unknown) (unknown) MCH (units (unkno wn) date) unknown) (unknown) (no (unknown) (unknown) MCHC 34.1 (units (unkn own) date) unknown) (unknown) (no (unknown) (unknown) MCHC (units (unkno wn) date) unknown) (unknown) (no (unknown) (unknown) MCV 99.4 (units (unkno wn) date) unknown) (unknown) (no (unknown) (unknown) MCV (units (unkno wn) date) unknown) (unknown) (no (unknown) (unknown) Magnesium 1.9 (units ( unknown) date) unknown) (unknown) (no (unknown) (unknown) Magnesium (units (unkn own) date) unknown) (unknown) (no (unknown) (unknown) Medication (units (unk nown) date) Instructions unknown) Recorded Confirmed Type (unknown) (no (unknown) (unknown) Meds (units (unkno wn) date) unknown) (unknown) (no (unknown) (unknown) Brule # (Auto) (units ( unknown) date) 1100 H unknown) (unknown) (no (unknown) (unknown) Brule # (Auto) (units ( unknown) date) unknown) (unknown) (no (unknown) (unknown) Brule % (Auto) (units ( unknown) date) 11.0 unknown) (unknown) (no (unknown) (unknown) Brule % (Auto) (units ( unknown) date) unknown) (unknown) (no (unknown) (unknown) Multiple lumbar (units (unknown) date) compression unknown) fractures L1-L4, hepatic steatosis, noted gallstones (unknown) (no (unknown) (unknown) Narrative: (units (unk nown) date) unknown) (unknown) (no (unknown) (unknown) Neut # (Auto) (units ( unknown) date) 6500 unknown) (unknown) (no (unknown) (unknown) Neut # (Auto) (units ( unknown) date) unknown) (unknown) (no (unknown) (unknown) Neut % (Auto) (units ( unknown) date) 63.6 unknown) (unknown) (no (unknown) (unknown) Neut % (Auto) (units ( unknown) date) unknown) (unknown) (no (unknown) (unknown) No Known Drug (units ( unknown) date) Allergies Allergy unknown) Verified 10/24/22 21:16 (unknown) (no (unknown) (unknown) Objective (units (unkn own) date) unknown) (unknown) (no (unknown) (unknown) On admit patient (units (unknown) date) is stable temp unknown) 98.2?, BP 140/80, HR 90 sinus rhythm, RR 15, O2 (unknown) (no (unknown) (unknown) Oxygen Delivery (units (unknown) date) Method Room Air unknown) (unknown) (no (unknown) (unknown) Oxygen Delivery (units (unknown) date) Method unknown) (unknown) (no (unknown) (unknown) PT 17.4 H (units (unkn own) date) unknown) (unknown) (no (unknown) (unknown) PT (units (unkno wn) date) unknown) (unknown) (no (unknown) (unknown) Patient History (units (unknown) date) unknown) (unknown) (no (unknown) (unknown) Patient: (units (unkno wn) date) Nicolas Neely unknown) MR#: [id number] (unknown) (no (unknown) (unknown) Plt Count 218 (units ( unknown) date) unknown) (unknown) (no (unknown) (unknown) Plt Count (units (unkn own) date) unknown) (unknown) (no (unknown) (unknown) Potassium 3.8 (units ( unknown) date) unknown) (unknown) (no (unknown) (unknown) Potassium (units (unkn own) date) unknown) (unknown) (no (unknown) (unknown) Provider: (units (unkn own) date) Ana Maria Ortega unknown) 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 (unknown) (no (unknown) (unknown) Pulse Oximetry 94 (units (unknown) date) unknown) (unknown) (no (unknown) (unknown) Pulse Oximetry 95 (units (unknown) date) 95 unknown) (unknown) (no (unknown) (unknown) Pulse Oximetry 95 (units (unknown) date) 96 unknown) (unknown) (no (unknown) (unknown) Pulse Oximetry 95 (units (unknown) date) unknown) (unknown) (no (unknown) (unknown) Pulse Oximetry 96 (units (unknown) date) 95 unknown) (unknown) (no (unknown) (unknown) Pulse Oximetry 96 (units (unknown) date) 97 unknown) (unknown) (no (unknown) (unknown) Pulse Oximetry 96 (units (unknown) date) unknown) (unknown) (no (unknown) (unknown) Pulse Oximetry 97 (units (unknown) date) 97 unknown) (unknown) (no (unknown) (unknown) Pulse Oximetry 98 (units (unknown) date) 98 unknown) (unknown) (no (unknown) (unknown) Pulse Oximetry 98 (units (unknown) date) 99 unknown) (unknown) (no (unknown) (unknown) Pulse Oximetry 98 (units (unknown) date) unknown) (unknown) (no (unknown) (unknown) Pulse Oximetry 99 (units (unknown) date) 98 unknown) (unknown) (no (unknown) (unknown) Pulse Oximetry 99 (units (unknown) date) unknown) (unknown) (no (unknown) (unknown) Pulse Rate 133 H (units (unknown) date) unknown) (unknown) (no (unknown) (unknown) Pulse Rate 135 H (units (unknown) date) 118 H unknown) (unknown) (no (unknown) (unknown) Pulse Rate 135 H (units (unknown) date) 130 H unknown) (unknown) (no (unknown) (unknown) Pulse Rate 136 H (units (unknown) date) 131 H unknown) (unknown) (no (unknown) (unknown) Pulse Rate 138 H (units (unknown) date) 140 H unknown) (unknown) (no (unknown) (unknown) Pulse Rate 143 H (units (unknown) date) 136 H unknown) (unknown) (no (unknown) (unknown) Pulse Rate 85 86 (units (unknown) date) unknown) (unknown) (no (unknown) (unknown) Pulse Rate 85 (units ( unknown) date) unknown) (unknown) (no (unknown) (unknown) Pulse Rate 86 (units ( unknown) date) unknown) (unknown) (no (unknown) (unknown) Pulse Rate 87 84 (units (unknown) date) unknown) (unknown) (no (unknown) (unknown) Pulse Rate 87 89 (units (unknown) date) unknown) (unknown) (no (unknown) (unknown) Pulse Rate 88 89 (units (unknown) date) unknown) (unknown) (no (unknown) (unknown) Pulse Rate 90 85 (units (unknown) date) unknown) (unknown) (no (unknown) (unknown) Pulse Rate 90 91 (units (unknown) date) H unknown) (unknown) (no (unknown) (unknown) Pulse Rate 90 (units ( unknown) date) unknown) (unknown) (no (unknown) (unknown) Pulse Rate 91 H (units (unknown) date) 103 H unknown) (unknown) (no (unknown) (unknown) Pulse Rate 91 H (units (unknown) date) 90 unknown) (unknown) (no (unknown) (unknown) Pulse Rate 91 H (units (unknown) date) unknown) (unknown) (no (unknown) (unknown) Pulse Rate 92 H (units (unknown) date) 90 unknown) (unknown) (no (unknown) (unknown) Pulse Rate 92 H (units (unknown) date) unknown) (unknown) (no (unknown) (unknown) Pulse Rate 93 H (units (unknown) date) unknown) (unknown) (no (unknown) (unknown) RBC 4.62 (units (unkno wn) date) unknown) (unknown) (no (unknown) (unknown) RBC (units (unkno wn) date) unknown) (unknown) (no (unknown) (unknown) RDW 14.5 (units (unkno wn) date) unknown) (unknown) (no (unknown) (unknown) RDW (units (unkno wn) date) unknown) (unknown) (no (unknown) (unknown) Respiratory Rate (units (unknown) date) 11 L 17 unknown) (unknown) (no (unknown) (unknown) Respiratory Rate (units (unknown) date) 11 L unknown) (unknown) (no (unknown) (unknown) Respiratory Rate (units (unknown) date) 13 10 L unknown) (unknown) (no (unknown) (unknown) Respiratory Rate (units (unknown) date) 14 14 unknown) (unknown) (no (unknown) (unknown) Respiratory Rate (units (unknown) date) 14 21 unknown) (unknown) (no (unknown) (unknown) Respiratory Rate (units (unknown) date) 14 unknown) (unknown) (no (unknown) (unknown) Respiratory Rate (units (unknown) date) 15 13 unknown) (unknown) (no (unknown) (unknown) Respiratory Rate (units (unknown) date) 15 15 unknown) (unknown) (no (unknown) (unknown) Respiratory Rate (units (unknown) date) 15 16 unknown) (unknown) (no (unknown) (unknown) Respiratory Rate (units (unknown) date) 15 22 unknown) (unknown) (no (unknown) (unknown) Respiratory Rate (units (unknown) date) 15 unknown) (unknown) (no (unknown) (unknown) Respiratory Rate (units (unknown) date) 16 17 unknown) (unknown) (no (unknown) (unknown) Respiratory Rate (units (unknown) date) 16 unknown) (unknown) (no (unknown) (unknown) Respiratory Rate (units (unknown) date) 17 15 unknown) (unknown) (no (unknown) (unknown) Respiratory Rate (units (unknown) date) 17 unknown) (unknown) (no (unknown) (unknown) Respiratory Rate (units (unknown) date) 18 12 unknown) (unknown) (no (unknown) (unknown) Respiratory Rate (units (unknown) date) 18 unknown) (unknown) (no (unknown) (unknown) Respiratory Rate (units (unknown) date) 19 22 unknown) (unknown) (no (unknown) (unknown) Respiratory Rate (units (unknown) date) 20 13 unknown) (unknown) (no (unknown) (unknown) Respiratory Rate (units (unknown) date) 20 unknown) (unknown) (no (unknown) (unknown) Respiratory Rate (units (unknown) date) 21 11 L unknown) (unknown) (no (unknown) (unknown) Respiratory Rate (units (unknown) date) 23 15 unknown) (unknown) (no (unknown) (unknown) Result Diagrams: (units (unknown) date) unknown) (unknown) (no (unknown) (unknown) Review of Systems (units (unknown) date) unknown) (unknown) (no (unknown) (unknown) SARS-CoV-2 (PCR) (units (unknown) date) Negative unknown) (unknown) (no (unknown) (unknown) SARS-CoV-2 (PCR) (units (unknown) date) unknown) (unknown) (no (unknown) (unknown) Safety + (units (unkno wn) date) Behavioral: unknown) (unknown) (no (unknown) (unknown) Signed By: (units (unk nown) date) unknown) (unknown) (no (unknown) (unknown) Smoking Status (units (unknown) date) Never smoker unknown) (unknown) (no (unknown) (unknown) Sodium 139 (units (unk nown) date) unknown) (unknown) (no (unknown) (unknown) Sodium (units (unkno wn) date) unknown) (unknown) (no (unknown) (unknown) Surrogate (units (unkn own) date) decision maker: unknown) Son, patient also has a full-time caregiver [place] (unknown) (no (unknown) (unknown) Temperature 98.2 (units (unknown) date) F unknown) (unknown) (no (unknown) (unknown) Temperature (units (un known) date) unknown) (unknown) (no (unknown) (unknown) Threatened By a (units (unknown) date) Person unknown) (unknown) (no (unknown) (unknown) Time Patient (units (u nknown) date) Seen: 22:04 unknown) (unknown) (no (unknown) (unknown) Time Spent With (units (unknown) date) Patient unknown) (unknown) (no (unknown) (unknown) Tobacco + (units (unkn own) date) Substance use: unknown) (unknown) (no (unknown) (unknown) Total Bilirubin (units (unknown) date) 1.1 unknown) (unknown) (no (unknown) (unknown) Total Bilirubin (units (unknown) date) unknown) (unknown) (no (unknown) (unknown) Total Creatine (units (unknown) date) Kinase < 20 L unknown) (unknown) (no (unknown) (unknown) Total Creatine (units (unknown) date) Kinase unknown) (unknown) (no (unknown) (unknown) Total Protein 7.9 (units (unknown) date) unknown) (unknown) (no (unknown) (unknown) Total Protein (units ( unknown) date) unknown) (unknown) (no (unknown) (unknown) Troponin I < (units (u nknown) date) 0.012 unknown) (unknown) (no (unknown) (unknown) Troponin I (units (unk nown) date) unknown) (unknown) (no (unknown) (unknown) Vital Signs (units (un known) date) unknown) (unknown) (no (unknown) (unknown) WBC 10.3 (units (unkno wn) date) unknown) (unknown) (no (unknown) (unknown) WBC (units (unkno wn) date) unknown) (unknown) (no (unknown) (unknown) Xarelto for many (units (unknown) date) years, pacemaker unknown) placement for sick sinus syndrome, history of (unknown) (no (unknown) (unknown) Xarelto, multiple (units (unknown) date) healing lumbar unknown) compression fractures, bilateral rib fractures (unknown) (no (unknown) (unknown) [Embedded Image (units (unknown) date) Not Available] unknown) (unknown) (no (unknown) (unknown) admission (units (unkn own) date) unknown) (unknown) (no (unknown) (unknown) admits that the (units (unknown) date) majority of his unknown) day is consume with severe pain. (unknown) (no (unknown) (unknown) alcohol intake (units (unknown) date) frequency unknown) holiday/special occasion (unknown) (no (unknown) (unknown) and continues to (units (unknown) date) be in sinus unknown) rhythm. No WBC, mono 11,000. Stable electrolytes (unknown) (no (unknown) (unknown) bimatoprost 0.01 (units (unknown) date) % eye drops 1 drp unknown) ophthalmic (eye) DAILY 10/24/22 10/24/22 (unknown) (no (unknown) (unknown) breath but admits (units (unknown) date) that the majority unknown) of his day is consume with severe pain. (unknown) (no (unknown) (unknown) bupropion HCl 150 (units (unknown) date) mg tablet,12 hr unknown) 150 mg PO BID 10/24/22 10/24/22 History (unknown) (no (unknown) (unknown) capsule,extended (units (unknown) date) release 24 hr unknown) (unknown) (no (unknown) (unknown) comparison for (units (unknown) date) labs diagnostics unknown) or EKG in system. CT of chest abdomen pelvis: (unknown) (no (unknown) (unknown) complications (units ( unknown) date) because of the unknown) severe malnutrition in relation to acute (unknown) (no (unknown) (unknown) denies any chest (units (unknown) date) pain but does unknown) state that he is frequently short of breath but (unknown) (no (unknown) (unknown) diagnostic (units (unk nown) date) imaging, and unknown) laboratory results. (unknown) (no (unknown) (unknown) diltiazem HCl 240 (units (unknown) date) mg 240 mg PO DAILY unknown) 10/24/22 10/24/22 History (unknown) (no (unknown) (unknown) documented. (units (un known) date) unknown) (unknown) (no (unknown) (unknown) dorzolamide 22.3 (units (unknown) date) mg-timolol 6.8 1 unknown) drp ophthalmic (eye) DAILY 10/24/22 10/24/22 (unknown) (no (unknown) (unknown) emptying but no (units (unknown) date) findings on unknown) imaging at this time. Dr. Altman consulted does (unknown) (no (unknown) (unknown) evaluated in (units (u nknown) date) imaging completed unknown) prior at another facility, and has seen Dr. Norman (unknown) (no (unknown) (unknown) finasteride 5 mg (units (unknown) date) tablet 5 mg PO unknown) DAILY 10/24/22 10/24/22 History (unknown) (no (unknown) (unknown) for evaluation (units (unknown) date) episodes of unknown) shortness of breath and fatigue but primarily due to (unknown) (no (unknown) (unknown) for multiple (units (u nknown) date) falls and gait unknown) instability, and dietary consult for BMI 22.8. (unknown) (no (unknown) (unknown) he has (units (unkno wn) date) significant pain unknown) that is worse with range of motion and improves with (unknown) (no (unknown) (unknown) illness/chronic (units (unknown) date) illness. This unknown) increases the difficulty in complexity of medical (unknown) (no (unknown) (unknown) inability to (units (u nknown) date) function at home unknown) due to pain. (unknown) (no (unknown) (unknown) intake and (units (unk nown) date) nutrition. unknown) (unknown) (no (unknown) (unknown) lumbar, clavicle, (units (unknown) date) left, ribs, unknown) bilaterally, acute on chronic, present on (unknown) (no (unknown) (unknown) management and (units (unknown) date) increases the unknown) chances poor outcomes such as mortality and (unknown) (no (unknown) (unknown) mg/mL eye drops (units (unknown) date) unknown) (unknown) (no (unknown) (unknown) morbidity as well (units (unknown) date) as impaired wound unknown) healing, and immune suppression. (unknown) (no (unknown) (unknown) multiple lumbar (units (unknown) date) compression unknown) fractures, clavicle fracture, rib fractures presents (unknown) (no (unknown) (unknown) multiple lumbar (units (unknown) date) compression unknown) fractures, clavicle fracture, rib fractures (unknown) (no (unknown) (unknown) negative, initial (units (unknown) date) EKG in ED AFib unknown) with a rate of 136, post cardioversion sinus (unknown) (no (unknown) (unknown) nonobstructing, (units (unknown) date) cholelithiasis, unknown) colonic diverticulosis. Patient was seen (unknown) (no (unknown) (unknown) not feel that the (units (unknown) date) patient requires unknown) surgical intervention, will consult tomorrow. (unknown) (no (unknown) (unknown) noting multilevel (units (unknown) date) osteopenic unknown) compression fractures with retropulsed fracture (unknown) (no (unknown) (unknown) of which was in (units (unknown) date) the end of unknown) September and has advanced imaging from our facility (unknown) (no (unknown) (unknown) omeprazole 20 mg (units (unknown) date) capsule,delayed 20 unknown) mg PO DAILY 10/24/22 10/24/22 History (unknown) (no (unknown) (unknown) ortho regarding (units (unknown) date) multiple unknown) fractures, is scheduled for follow-up on 10/25/2021. (unknown) (no (unknown) (unknown) osteopenic (units (unk nown) date) compression unknown) fractures with retropulsed fracture segment at L1 (unknown) (no (unknown) (unknown) potassium 3.8, (units (unknown) date) Mag 1.9, PT 17.4, unknown) INR 1.5, initial troponin negative, COVID (unknown) (no (unknown) (unknown) presents for (units (u nknown) date) evaluation unknown) episodes of shortness of breath and fatigue but (unknown) (no (unknown) (unknown) primarily due to (units (unknown) date) severe midline low unknown) back pain.? He had 2 falls, the most recent (unknown) (no (unknown) (unknown) process but (units (un known) date) nothing further unknown) noted. Patient admitted for AFib with RVR, pacer on (unknown) (no (unknown) (unknown) release (units (unkno wn) date) unknown) (unknown) (no (unknown) (unknown) rest.? He denies (units (unknown) date) any chest pain but unknown) does state that he is frequently short of (unknown) (no (unknown) (unknown) resulting in (units (u nknown) date) moderate central unknown) stenosis.? He denies any numbness, tingling or (unknown) (no (unknown) (unknown) rhythm with sinus (units (unknown) date) arrhythmia rate of unknown) [address] and T-wave changes, no (unknown) (no (unknown) (unknown) rhythm, echo (units (u nknown) date) tomorrow, pain unknown) control for fractures, ortho consult, PT/OT consult (unknown) (no (unknown) (unknown) rivaroxaban 20 mg (units (unknown) date) tablet (Xarelto) unknown) 20 mg PO QPM 10/24/22 10/24/22 History (unknown) (no (unknown) (unknown) saturation 98% on (units (unknown) date) room air. In ED unknown) patient was in AFib with RVR heart rates 143 (unknown) (no (unknown) (unknown) segment at L1 (units ( unknown) date) resulting in unknown) moderate central stenosis.? He denies any numbness, (unknown) (no (unknown) (unknown) severe midline (units (unknown) date) low back pain.? He unknown) had 2 falls, the most recent of which was in (unknown) (no (unknown) (unknown) significant pain (units (unknown) date) that is worse with unknown) range of motion and improves with rest.? He (unknown) (no (unknown) (unknown) sustained-release (units (unknown) date) unknown) (unknown) (no (unknown) (unknown) tamsulosin 0.4 mg (units (unknown) date) capsule 0.4 mg PO unknown) BEDTIME 10/24/22 10/24/22 History (unknown) (no (unknown) (unknown) the end of (units (unkn own) date) September and has unknown) advanced imaging from our facility noting multilevel (unknown) (no (unknown) (unknown) the patient's (units ( unknown) date) current unknown) medications. (unknown) (no (unknown) (unknown) tingling or (units (unk nown) date) weakness, denies unknown) any loss of control of bowel or bladder.? He states (unknown) (no (unknown) (unknown) today; this time (units (unknown) date) is exclusive of unknown) procedural time. (unknown) (no (unknown) (unknown) topical ointment (units (unknown) date) unknown) (unknown) (no (unknown) (unknown) triamcinolone (units ( unknown) date) acetonide 0.1 % 1 unknown) applic topical DAILY PRN Dry Skin 10/24/22 (unknown) (no (unknown) (unknown) ventricular (units (un known) date) tachycardia, unknown) osteoporosis, frequent falls, previously seen for (unknown) (no (unknown) (unknown) vitamin B complex (units (unknown) date) (B 1 tab PO DAILY unknown) 10/24/22 10/24/22 History (unknown) (no (unknown) (unknown) weakness, denies (units (unknown) date) any loss of unknown) control of bowel or bladder.? He states he has Result panel 260 (unknown) (no (unknown) (unknown) (no value) (units (unk nown) date) unknown) (unknown) (no (unknown) (unknown) ([place]) (units (unkn own) date) unknown) (unknown) (no (unknown) (unknown) (past 8 hours): (units (unknown) date) unknown) (unknown) (no (unknown) (unknown) -September 2022: (units (unknown) date) Ground level fall unknown) resulting in multiple pathologic fractures. (unknown) (no (unknown) (unknown) -Social (units (unkno wn) date) Determinants of unknown) Health that impact treatment or disposition: age, (unknown) (no (unknown) (unknown) -advanced imaging (units (unknown) date) from our facility unknown) C-spine and lumbar noting multilevel (unknown) (no (unknown) (unknown) -as evidence by (units (unknown) date) BMI 22.8 unknown) (unknown) (no (unknown) (unknown) -dietary consult (units (unknown) date) ordered to unknown) evaluate and implement steps to improve caloric (unknown) (no (unknown) (unknown) -patient's (units (unk nown) date) malnutrition unknown) places them at high risk for medical and surgical (unknown) (no (unknown) (unknown) 10/24/22 10/24/22 (units (unknown) date) 10/24/22 unknown) (unknown) (no (unknown) (unknown) 10/24/22 16:40 (units (unknown) date) unknown) (unknown) (no (unknown) (unknown) 10/24/22 History (units (unknown) date) unknown) (unknown) (no (unknown) (unknown) 10/24/22 (units (unkno wn) date) unknown) (unknown) (no (unknown) (unknown) [id number] (units (unkno wn) date) unknown) (unknown) (no (unknown) (unknown) 1. AFib with RVR, (units (unknown) date) acute on chronic, unknown) on Xarelto, present on admission (unknown) (no (unknown) (unknown) 16:14 10/24/22 (units (unknown) date) unknown) (unknown) (no (unknown) (unknown) 16:40 16:40 16:40 (units (unknown) date) unknown) (unknown) (no (unknown) (unknown) 16:51 10/24/22 (units (unknown) date) unknown) (unknown) (no (unknown) (unknown) 16:52 10/24/22 (units (unknown) date) unknown) (unknown) (no (unknown) (unknown) 16:52 (units (unkno wn) date) unknown) (unknown) (no (unknown) (unknown) 16:55 (units (unkno wn) date) unknown) (unknown) (no (unknown) (unknown) 17:00 10/24/22 (units (unknown) date) unknown) (unknown) (no (unknown) (unknown) 17:00 (units (unkno wn) date) unknown) (unknown) (no (unknown) (unknown) 17:16 10/24/22 (units (unknown) date) unknown) (unknown) (no (unknown) (unknown) 17:20 10/24/22 (units (unknown) date) unknown) (unknown) (no (unknown) (unknown) 17:20 (units (unkno wn) date) unknown) (unknown) (no (unknown) (unknown) 17:30 10/24/22 (units (unknown) date) unknown) (unknown) (no (unknown) (unknown) 17:31 10/24/22 (units (unknown) date) unknown) (unknown) (no (unknown) (unknown) 17:31 (units (unkno wn) date) unknown) (unknown) (no (unknown) (unknown) 17:35 10/24/22 (units (unknown) date) unknown) (unknown) (no (unknown) (unknown) 17:35 (units (unkno wn) date) unknown) (unknown) (no (unknown) (unknown) 17:40 10/24/22 (units (unknown) date) unknown) (unknown) (no (unknown) (unknown) 17:45 10/24/22 (units (unknown) date) unknown) (unknown) (no (unknown) (unknown) 17:51 10/24/22 (units (unknown) date) unknown) (unknown) (no (unknown) (unknown) 17:51 (units (unkno wn) date) unknown) (unknown) (no (unknown) (unknown) 17:55 10/24/22 (units (unknown) date) unknown) (unknown) (no (unknown) (unknown) 17:55 (units (unkno wn) date) unknown) (unknown) (no (unknown) (unknown) 18:00 10/24/22 (units (unknown) date) unknown) (unknown) (no (unknown) (unknown) 18:05 10/24/22 (units (unknown) date) unknown) (unknown) (no (unknown) (unknown) 18:05 (units (unkno wn) date) unknown) (unknown) (no (unknown) (unknown) 18:10 10/24/22 (units (unknown) date) unknown) (unknown) (no (unknown) (unknown) 18:10 (units (unkno wn) date) unknown) (unknown) (no (unknown) (unknown) 18:15 10/24/22 (units (unknown) date) unknown) (unknown) (no (unknown) (unknown) 18:20 10/24/22 (units (unknown) date) unknown) (unknown) (no (unknown) (unknown) 18:20 (units (unkno wn) date) unknown) (unknown) (no (unknown) (unknown) 18:25 10/24/22 (units (unknown) date) unknown) (unknown) (no (unknown) (unknown) 18:25 (units (unkno wn) date) unknown) (unknown) (no (unknown) (unknown) 18:30 10/24/22 (units (unknown) date) unknown) (unknown) (no (unknown) (unknown) 19:00 (units (unkno wn) date) unknown) (unknown) (no (unknown) (unknown) 19:07 10/24/22 (units (unknown) date) unknown) (unknown) (no (unknown) (unknown) 19:10 10/24/22 (units (unknown) date) unknown) (unknown) (no (unknown) (unknown) 19:10 (units (unkno wn) date) unknown) (unknown) (no (unknown) (unknown) 19:15 10/24/22 (units (unknown) date) unknown) (unknown) (no (unknown) (unknown) 19:15 (units (unkno wn) date) unknown) (unknown) (no (unknown) (unknown) 19:21 10/24/22 (units (unknown) date) unknown) (unknown) (no (unknown) (unknown) 19:25 10/24/22 (units (unknown) date) unknown) (unknown) (no (unknown) (unknown) 19:25 (units (unkno wn) date) unknown) (unknown) (no (unknown) (unknown) 19:30 10/24/22 (units (unknown) date) unknown) (unknown) (no (unknown) (unknown) 19:30 (units (unkno wn) date) unknown) (unknown) (no (unknown) (unknown) 19:35 10/24/22 (units (unknown) date) unknown) (unknown) (no (unknown) (unknown) 19:40 10/24/22 (units (unknown) date) unknown) (unknown) (no (unknown) (unknown) 19:40 (units (unkno wn) date) unknown) (unknown) (no (unknown) (unknown) 19:45 10/24/22 (units (unknown) date) unknown) (unknown) (no (unknown) (unknown) 19:45 (units (unkno wn) date) unknown) (unknown) (no (unknown) (unknown) 19:50 10/24/22 (units (unknown) date) unknown) (unknown) (no (unknown) (unknown) 19:55 10/24/22 (units (unknown) date) unknown) (unknown) (no (unknown) (unknown) 19:55 (units (unkno wn) date) unknown) (unknown) (no (unknown) (unknown) 2. Unstable gait, (units (unknown) date) frequent falls, unknown) resulting in multiple compression fractures, (unknown) (no (unknown) (unknown) 20:00 10/24/22 (units (unknown) date) unknown) (unknown) (no (unknown) (unknown) 20:00 (units (unkno wn) date) unknown) (unknown) (no (unknown) (unknown) 20:06 10/24/22 (units (unknown) date) unknown) (unknown) (no (unknown) (unknown) 20:10 10/24/22 (units (unknown) date) unknown) (unknown) (no (unknown) (unknown) 20:10 (units (unkno wn) date) unknown) (unknown) (no (unknown) (unknown) 20:15 10/24/22 (units (unknown) date) unknown) (unknown) (no (unknown) (unknown) 20:15 (units (unkno wn) date) unknown) (unknown) (no (unknown) (unknown) 20:20 10/24/22 (units (unknown) date) unknown) (unknown) (no (unknown) (unknown) 20:30 10/24/22 (units (unknown) date) unknown) (unknown) (no (unknown) (unknown) 20:30 (units (unkno wn) date) unknown) (unknown) (no (unknown) (unknown) 20:45 10/24/22 (units (unknown) date) unknown) (unknown) (no (unknown) (unknown) 20:45 (units (unkno wn) date) unknown) (unknown) (no (unknown) (unknown) 3 through 8 (units (un known) date) right, left medial unknown) clavicle fracture unstable gait frequent falls. (unknown) (no (unknown) (unknown) 3. Malnutrition, (units (unknown) date) mild, acute on unknown) chronic, present on admission (unknown) (no (unknown) (unknown) 30, and 2 (units (unkn own) date) episodes of V-tach unknown) 8 attend be runs. Was successfully cardioverted (unknown) (no (unknown) (unknown) ALT 27 (units (unkno wn) date) unknown) (unknown) (no (unknown) (unknown) ALT (units (unkno wn) date) unknown) (unknown) (no (unknown) (unknown) APTT 36 (units (unkno wn) date) unknown) (unknown) (no (unknown) (unknown) APTT (units (unkno wn) date) unknown) (unknown) (no (unknown) (unknown) AST 32 (units (unkno wn) date) unknown) (unknown) (no (unknown) (unknown) AST (units (unkno wn) date) unknown) (unknown) (no (unknown) (unknown) Age/Sex: 86 / M (units (unknown) date) unknown) (unknown) (no (unknown) (unknown) Albumin 3.7 (units (un known) date) unknown) (unknown) (no (unknown) (unknown) Albumin (units (unkno wn) date) unknown) (unknown) (no (unknown) (unknown) Albumin/Globulin (units (unknown) date) Ratio 0.9 L unknown) (unknown) (no (unknown) (unknown) Albumin/Globulin (units (unknown) date) Ratio unknown) (unknown) (no (unknown) (unknown) Alkaline (units (unkno wn) date) Phosphatase 108 unknown) (unknown) (no (unknown) (unknown) Alkaline (units (unkno wn) date) Phosphatase unknown) (unknown) (no (unknown) (unknown) All 12 point (units (un known) date) systems reviewed unknown) with the patient and are negative except otherwise (unknown) (no (unknown) (unknown) Allergies (units (unkn own) date) unknown) (unknown) (no (unknown) (unknown) Allergy/AdvReac (units (unknown) date) Type Severity unknown) Reaction Status Date / Time (unknown) (no (unknown) (unknown) Assessment + Plan (units (unknown) date) narrative: unknown) (unknown) (no (unknown) (unknown) Assessment + Plan (units (unknown) date) unknown) (unknown) (no (unknown) (unknown) BUN 9 (units (unkno wn) date) unknown) (unknown) (no (unknown) (unknown) BUN (units (unkno wn) date) unknown) (unknown) (no (unknown) (unknown) BUN/Creatinine (units (unknown) date) Ratio 11.3 unknown) (unknown) (no (unknown) (unknown) BUN/Creatinine (units (unknown) date) Ratio unknown) (unknown) (no (unknown) (unknown) Baso # (Auto) 100 (units (unknown) date) unknown) (unknown) (no (unknown) (unknown) Baso # (Auto) (units ( unknown) date) unknown) (unknown) (no (unknown) (unknown) Baso % (Auto) 1.3 (units (unknown) date) unknown) (unknown) (no (unknown) (unknown) Baso % (Auto) (units ( unknown) date) unknown) (unknown) (no (unknown) (unknown) Been Physically (units (unknown) date) Hurt or No unknown) (unknown) (no (unknown) (unknown) Blood Pressure (units (unknown) date) 105/80 unknown) (unknown) (no (unknown) (unknown) Blood Pressure (units (unknown) date) 118/81 unknown) (unknown) (no (unknown) (unknown) Blood Pressure (units (unknown) date) 119/94 H unknown) (unknown) (no (unknown) (unknown) Blood Pressure (units (unknown) date) 120/82 unknown) (unknown) (no (unknown) (unknown) Blood Pressure (units (unknown) date) 121/81 135/82 unknown) (unknown) (no (unknown) (unknown) Blood Pressure (units (unknown) date) 122/83 128/79 unknown) (unknown) (no (unknown) (unknown) Blood Pressure (units (unknown) date) 123/79 121/83 unknown) (unknown) (no (unknown) (unknown) Blood Pressure (units (unknown) date) 125/81 127/75 unknown) (unknown) (no (unknown) (unknown) Blood Pressure (units (unknown) date) 125/90 unknown) (unknown) (no (unknown) (unknown) Blood Pressure (units (unknown) date) 129/84 117/83 unknown) (unknown) (no (unknown) (unknown) Blood Pressure (units (unknown) date) 131/75 unknown) (unknown) (no (unknown) (unknown) Blood Pressure (units (unknown) date) 131/85 153/82 H unknown) (unknown) (no (unknown) (unknown) Blood Pressure (units (unknown) date) 132/84 136/88 unknown) (unknown) (no (unknown) (unknown) Blood Pressure (units (unknown) date) 134/102 H unknown) (unknown) (no (unknown) (unknown) Blood Pressure (units (unknown) date) 134/82 unknown) (unknown) (no (unknown) (unknown) Blood Pressure (units (unknown) date) 134/87 unknown) (unknown) (no (unknown) (unknown) Blood Pressure (units (unknown) date) 136/92 H unknown) (unknown) (no (unknown) (unknown) Blood Pressure (units (unknown) date) 140/80 unknown) (unknown) (no (unknown) (unknown) Blood Pressure (units (unknown) date) 140/92 H unknown) (unknown) (no (unknown) (unknown) Blood Pressure (units (unknown) date) 141/93 H 137/96 H unknown) (unknown) (no (unknown) (unknown) Blood Pressure (units (unknown) date) 143/81 H 128/82 unknown) (unknown) (no (unknown) (unknown) Blood Pressure (units (unknown) date) 148/92 H unknown) (unknown) (no (unknown) (unknown) Blood Pressure (units (unknown) date) 148/93 H unknown) (unknown) (no (unknown) (unknown) Blood Pressure (units (unknown) date) 150/90 H 151/97 H unknown) (unknown) (no (unknown) (unknown) Blood Pressure (units (unknown) date) 150/97 H 152/86 H unknown) (unknown) (no (unknown) (unknown) CK-MB (CK-2) Rel (units (unknown) date) Index TNP unknown) (unknown) (no (unknown) (unknown) CK-MB (CK-2) Rel (units (unknown) date) Index unknown) (unknown) (no (unknown) (unknown) CK-MB (CK-2) TNP (units (unknown) date) unknown) (unknown) (no (unknown) (unknown) CK-MB (CK-2) (units (u nknown) date) unknown) (unknown) (no (unknown) (unknown) COVID PCR: (units (unk nown) date) Negative unknown) (unknown) (no (unknown) (unknown) Calcium 9.0 (units (un known) date) unknown) (unknown) (no (unknown) (unknown) Calcium (units (unkno wn) date) unknown) (unknown) (no (unknown) (unknown) Carbon Dioxide 23 (units (unknown) date) unknown) (unknown) (no (unknown) (unknown) Carbon Dioxide (units (unknown) date) unknown) (unknown) (no (unknown) (unknown) Chest x-ray (units (un known) date) radiology noted unknown) was a poor exam, document abnormal cardiopulmonary (unknown) (no (unknown) (unknown) Chief complaint: (units (unknown) date) Back pain unknown) (unknown) (no (unknown) (unknown) Chloride 106 (units (u nknown) date) unknown) (unknown) (no (unknown) (unknown) Chloride (units (unkno wn) date) unknown) (unknown) (no (unknown) (unknown) Code status: Full (units (unknown) date) unknown) (unknown) (no (unknown) (unknown) Complex-Vitamin (units (unknown) date) B12 tablet) unknown) (unknown) (no (unknown) (unknown) Creatinine 0.80 (units (unknown) date) unknown) (unknown) (no (unknown) (unknown) Creatinine (units (unk nown) date) unknown) (unknown) (no (unknown) (unknown) Critical Care (units ( unknown) date) time: unknown) (unknown) (no (unknown) (unknown) : 1935 (units (unknown) date) Acct:[id number] unknown) (unknown) (no (unknown) (unknown) DVT/VTE (units (unkno wn) date) prophylaxis: unknown) Patient on Xarelto, SCDs only (unknown) (no (unknown) (unknown) Date Patient (units (u nknown) date) Seen: 10/24/22 unknown) (unknown) (no (unknown) (unknown) Date of Service: (units (unknown) date) 10/24/22 unknown) (unknown) (no (unknown) (unknown) Disposition: (units (u nknown) date) Patient admitted unknown) to acute care for AFib with RVR, now in sinus (unknown) (no (unknown) (unknown) Dr. Villar in the (units (unknown) date) ED noted a unknown) possible developing ileus, will improve bowel (unknown) (no (unknown) (unknown) Environment (units (un known) date) unknown) (unknown) (no (unknown) (unknown) Eos # (Auto) 200 (units (unknown) date) unknown) (unknown) (no (unknown) (unknown) Eos # (Auto) (units (u nknown) date) unknown) (unknown) (no (unknown) (unknown) Eos % (Auto) 2.1 (units (unknown) date) unknown) (unknown) (no (unknown) (unknown) Eos % (Auto) (units (u nknown) date) unknown) (unknown) (no (unknown) (unknown) Estimated GFR > (units (unknown) date) 60 unknown) (unknown) (no (unknown) (unknown) Estimated GFR (units ( unknown) date) unknown) (unknown) (no (unknown) (unknown) Exam (units (unkno wn) date) unknown) (unknown) (no (unknown) (unknown) Family + Social (units (unknown) date) History unknown) (unknown) (no (unknown) (unknown) Feels Safe in (units ( unknown) date) Current Yes unknown) (unknown) (no (unknown) (unknown) Globulin 4.2 H (units (unknown) date) unknown) (unknown) (no (unknown) (unknown) Globulin (units (unkno wn) date) unknown) (unknown) (no (unknown) (unknown) Glucose 89 (units (unk nown) date) unknown) (unknown) (no (unknown) (unknown) Glucose (units (unkno wn) date) unknown) (unknown) (no (unknown) (unknown) Hct 45.9 (units (unkno wn) date) unknown) (unknown) (no (unknown) (unknown) Hct (units (unkno wn) date) unknown) (unknown) (no (unknown) (unknown) Hgb 15.6 (units (unkno wn) date) unknown) (unknown) (no (unknown) (unknown) Hgb (units (unkno wn) date) unknown) (unknown) (no (unknown) (unknown) History + (units (unkn own) date) Physical Report unknown) (unknown) (no (unknown) (unknown) History of (units (unk nown) date) Present Illness unknown) (unknown) (no (unknown) (unknown) History (units (unkno wn) date) unknown) (unknown) (no (unknown) (unknown) Home Medications (units (unknown) date) and Allergies unknown) (unknown) (no (unknown) (unknown) Home Medications (units (unknown) date) unknown) (unknown) (no (unknown) (unknown) I have personally (units (unknown) date) reviewed patient's unknown) chart notes from PCP, specialists, (unknown) (no (unknown) (unknown) I have utilized (units (unknown) date) all available unknown) immediate resources to obtain, update, or review (unknown) (no (unknown) (unknown) I spent a total (units (unknown) date) of [] minutes of unknown) critical care time on this patient's care (unknown) (no (unknown) (unknown) INR 1.5 H (units (unkn own) date) unknown) (unknown) (no (unknown) (unknown) INR (units (unkno wn) date) unknown) (unknown) (no (unknown) (unknown) [facility] (units (unknown) date) [address] [place] [address] unknown) [place] [address] (unknown) (no (unknown) (unknown) Nicolas Torrez (units (unknown) date) 86-year-old male unknown) slightly poor historian with history of AFib on (unknown) (no (unknown) (unknown) Laboratory (units (unk nown) date) Results - last 24 unknown) hr (unknown) (no (unknown) (unknown) Labs (units (unkno wn) date) unknown) (unknown) (no (unknown) (unknown) Labs: (units (unkno wn) date) unknown) (unknown) (no (unknown) (unknown) Lipase 169 (units (unk nown) date) unknown) (unknown) (no (unknown) (unknown) Lipase (units (unkno wn) date) unknown) (unknown) (no (unknown) (unknown) Lymph # (Auto) (units (unknown) date) 2300 unknown) (unknown) (no (unknown) (unknown) Lymph # (Auto) (units (unknown) date) unknown) (unknown) (no (unknown) (unknown) Lymph % (Auto) (units (unknown) date) 22.0 L unknown) (unknown) (no (unknown) (unknown) Lymph % (Auto) (units (unknown) date) unknown) (unknown) (no (unknown) (unknown) MCH 33.9 (units (unkno wn) date) unknown) (unknown) (no (unknown) (unknown) MCH (units (unkno wn) date) unknown) (unknown) (no (unknown) (unknown) MCHC 34.1 (units (unkn own) date) unknown) (unknown) (no (unknown) (unknown) MCHC (units (unkno wn) date) unknown) (unknown) (no (unknown) (unknown) MCV 99.4 (units (unkno wn) date) unknown) (unknown) (no (unknown) (unknown) MCV (units (unkno wn) date) unknown) (unknown) (no (unknown) (unknown) Magnesium 1.9 (units ( unknown) date) unknown) (unknown) (no (unknown) (unknown) Magnesium (units (unkn own) date) unknown) (unknown) (no (unknown) (unknown) Medication (units (unk nown) date) Instructions unknown) Recorded Confirmed Type (unknown) (no (unknown) (unknown) Meds (units (unkno wn) date) unknown) (unknown) (no (unknown) (unknown) Brule # (Auto) (units ( unknown) date) 1100 H unknown) (unknown) (no (unknown) (unknown) Brule # (Auto) (units ( unknown) date) unknown) (unknown) (no (unknown) (unknown) Brule % (Auto) (units ( unknown) date) 11.0 unknown) (unknown) (no (unknown) (unknown) Brule % (Auto) (units ( unknown) date) unknown) (unknown) (no (unknown) (unknown) Multiple lumbar (units (unknown) date) compression unknown) fractures L1-L4, hepatic steatosis, noted gallstones (unknown) (no (unknown) (unknown) Narrative: (units (unk nown) date) unknown) (unknown) (no (unknown) (unknown) Neut # (Auto) (units ( unknown) date) 6500 unknown) (unknown) (no (unknown) (unknown) Neut # (Auto) (units ( unknown) date) unknown) (unknown) (no (unknown) (unknown) Neut % (Auto) (units ( unknown) date) 63.6 unknown) (unknown) (no (unknown) (unknown) Neut % (Auto) (units ( unknown) date) unknown) (unknown) (no (unknown) (unknown) No Known Drug (units ( unknown) date) Allergies Allergy unknown) Verified 10/24/22 21:16 (unknown) (no (unknown) (unknown) Objective (units (unkn own) date) unknown) (unknown) (no (unknown) (unknown) On admit patient (units (unknown) date) is stable temp unknown) 98.2?, BP 140/80, HR 90 sinus rhythm, RR 15, O2 (unknown) (no (unknown) (unknown) Oxygen Delivery (units (unknown) date) Method Room Air unknown) (unknown) (no (unknown) (unknown) Oxygen Delivery (units (unknown) date) Method unknown) (unknown) (no (unknown) (unknown) PT 17.4 H (units (unkn own) date) unknown) (unknown) (no (unknown) (unknown) PT (units (unkno wn) date) unknown) (unknown) (no (unknown) (unknown) Patient History (units (unknown) date) unknown) (unknown) (no (unknown) (unknown) Patient: (units (unkno wn) date) Nicolas Neely unknown) MR#: [id number] (unknown) (no (unknown) (unknown) Plt Count 218 (units ( unknown) date) unknown) (unknown) (no (unknown) (unknown) Plt Count (units (unkn own) date) unknown) (unknown) (no (unknown) (unknown) Potassium 3.8 (units ( unknown) date) unknown) (unknown) (no (unknown) (unknown) Potassium (units (unkn own) date) unknown) (unknown) (no (unknown) (unknown) Provider: (units (unkn own) date) Ana Maria Ortega unknown) 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 (unknown) (no (unknown) (unknown) Pulse Oximetry 94 (units (unknown) date) unknown) (unknown) (no (unknown) (unknown) Pulse Oximetry 95 (units (unknown) date) 95 unknown) (unknown) (no (unknown) (unknown) Pulse Oximetry 95 (units (unknown) date) 96 unknown) (unknown) (no (unknown) (unknown) Pulse Oximetry 95 (units (unknown) date) unknown) (unknown) (no (unknown) (unknown) Pulse Oximetry 96 (units (unknown) date) 95 unknown) (unknown) (no (unknown) (unknown) Pulse Oximetry 96 (units (unknown) date) 97 unknown) (unknown) (no (unknown) (unknown) Pulse Oximetry 96 (units (unknown) date) unknown) (unknown) (no (unknown) (unknown) Pulse Oximetry 97 (units (unknown) date) 97 unknown) (unknown) (no (unknown) (unknown) Pulse Oximetry 98 (units (unknown) date) 98 unknown) (unknown) (no (unknown) (unknown) Pulse Oximetry 98 (units (unknown) date) 99 unknown) (unknown) (no (unknown) (unknown) Pulse Oximetry 98 (units (unknown) date) unknown) (unknown) (no (unknown) (unknown) Pulse Oximetry 99 (units (unknown) date) 98 unknown) (unknown) (no (unknown) (unknown) Pulse Oximetry 99 (units (unknown) date) unknown) (unknown) (no (unknown) (unknown) Pulse Rate 133 H (units (unknown) date) unknown) (unknown) (no (unknown) (unknown) Pulse Rate 135 H (units (unknown) date) 118 H unknown) (unknown) (no (unknown) (unknown) Pulse Rate 135 H (units (unknown) date) 130 H unknown) (unknown) (no (unknown) (unknown) Pulse Rate 136 H (units (unknown) date) 131 H unknown) (unknown) (no (unknown) (unknown) Pulse Rate 138 H (units (unknown) date) 140 H unknown) (unknown) (no (unknown) (unknown) Pulse Rate 143 H (units (unknown) date) 136 H unknown) (unknown) (no (unknown) (unknown) Pulse Rate 85 86 (units (unknown) date) unknown) (unknown) (no (unknown) (unknown) Pulse Rate 85 (units ( unknown) date) unknown) (unknown) (no (unknown) (unknown) Pulse Rate 86 (units ( unknown) date) unknown) (unknown) (no (unknown) (unknown) Pulse Rate 87 84 (units (unknown) date) unknown) (unknown) (no (unknown) (unknown) Pulse Rate 87 89 (units (unknown) date) unknown) (unknown) (no (unknown) (unknown) Pulse Rate 88 89 (units (unknown) date) unknown) (unknown) (no (unknown) (unknown) Pulse Rate 90 85 (units (unknown) date) unknown) (unknown) (no (unknown) (unknown) Pulse Rate 90 91 (units (unknown) date) H unknown) (unknown) (no (unknown) (unknown) Pulse Rate 90 (units ( unknown) date) unknown) (unknown) (no (unknown) (unknown) Pulse Rate 91 H (units (unknown) date) 103 H unknown) (unknown) (no (unknown) (unknown) Pulse Rate 91 H (units (unknown) date) 90 unknown) (unknown) (no (unknown) (unknown) Pulse Rate 91 H (units (unknown) date) unknown) (unknown) (no (unknown) (unknown) Pulse Rate 92 H (units (unknown) date) 90 unknown) (unknown) (no (unknown) (unknown) Pulse Rate 92 H (units (unknown) date) unknown) (unknown) (no (unknown) (unknown) Pulse Rate 93 H (units (unknown) date) unknown) (unknown) (no (unknown) (unknown) RBC 4.62 (units (unkno wn) date) unknown) (unknown) (no (unknown) (unknown) RBC (units (unkno wn) date) unknown) (unknown) (no (unknown) (unknown) RDW 14.5 (units (unkno wn) date) unknown) (unknown) (no (unknown) (unknown) RDW (units (unkno wn) date) unknown) (unknown) (no (unknown) (unknown) Respiratory Rate (units (unknown) date) 11 L 17 unknown) (unknown) (no (unknown) (unknown) Respiratory Rate (units (unknown) date) 11 L unknown) (unknown) (no (unknown) (unknown) Respiratory Rate (units (unknown) date) 13 10 L unknown) (unknown) (no (unknown) (unknown) Respiratory Rate (units (unknown) date) 14 14 unknown) (unknown) (no (unknown) (unknown) Respiratory Rate (units (unknown) date) 14 21 unknown) (unknown) (no (unknown) (unknown) Respiratory Rate (units (unknown) date) 14 unknown) (unknown) (no (unknown) (unknown) Respiratory Rate (units (unknown) date) 15 13 unknown) (unknown) (no (unknown) (unknown) Respiratory Rate (units (unknown) date) 15 15 unknown) (unknown) (no (unknown) (unknown) Respiratory Rate (units (unknown) date) 15 16 unknown) (unknown) (no (unknown) (unknown) Respiratory Rate (units (unknown) date) 15 22 unknown) (unknown) (no (unknown) (unknown) Respiratory Rate (units (unknown) date) 15 unknown) (unknown) (no (unknown) (unknown) Respiratory Rate (units (unknown) date) 16 17 unknown) (unknown) (no (unknown) (unknown) Respiratory Rate (units (unknown) date) 16 unknown) (unknown) (no (unknown) (unknown) Respiratory Rate (units (unknown) date) 17 15 unknown) (unknown) (no (unknown) (unknown) Respiratory Rate (units (unknown) date) 17 unknown) (unknown) (no (unknown) (unknown) Respiratory Rate (units (unknown) date) 18 12 unknown) (unknown) (no (unknown) (unknown) Respiratory Rate (units (unknown) date) 18 unknown) (unknown) (no (unknown) (unknown) Respiratory Rate (units (unknown) date) 19 22 unknown) (unknown) (no (unknown) (unknown) Respiratory Rate (units (unknown) date) 20 13 unknown) (unknown) (no (unknown) (unknown) Respiratory Rate (units (unknown) date) 20 unknown) (unknown) (no (unknown) (unknown) Respiratory Rate (units (unknown) date) 21 11 L unknown) (unknown) (no (unknown) (unknown) Respiratory Rate (units (unknown) date) 23 15 unknown) (unknown) (no (unknown) (unknown) Result Diagrams: (units (unknown) date) unknown) (unknown) (no (unknown) (unknown) Review of Systems (units (unknown) date) unknown) (unknown) (no (unknown) (unknown) SARS-CoV-2 (PCR) (units (unknown) date) Negative unknown) (unknown) (no (unknown) (unknown) SARS-CoV-2 (PCR) (units (unknown) date) unknown) (unknown) (no (unknown) (unknown) Safety + (units (unkno wn) date) Behavioral: unknown) (unknown) (no (unknown) (unknown) Signed By: (units (unk nown) date) unknown) (unknown) (no (unknown) (unknown) Smoking Status (units (unknown) date) Never smoker unknown) (unknown) (no (unknown) (unknown) Sodium 139 (units (unk nown) date) unknown) (unknown) (no (unknown) (unknown) Sodium (units (unkno wn) date) unknown) (unknown) (no (unknown) (unknown) Surrogate (units (unkn own) date) decision maker: unknown) Son, patient also has a full-time caregiver [place] (unknown) (no (unknown) (unknown) Temperature 98.2 (units (unknown) date) F unknown) (unknown) (no (unknown) (unknown) Temperature (units (un known) date) unknown) (unknown) (no (unknown) (unknown) Threatened By a (units (unknown) date) Person unknown) (unknown) (no (unknown) (unknown) Time Patient (units (u nknown) date) Seen: 22:04 unknown) (unknown) (no (unknown) (unknown) Time Spent With (units (unknown) date) Patient unknown) (unknown) (no (unknown) (unknown) Tobacco + (units (unkn own) date) Substance use: unknown) (unknown) (no (unknown) (unknown) Total Bilirubin (units (unknown) date) 1.1 unknown) (unknown) (no (unknown) (unknown) Total Bilirubin (units (unknown) date) unknown) (unknown) (no (unknown) (unknown) Total Creatine (units (unknown) date) Kinase < 20 L unknown) (unknown) (no (unknown) (unknown) Total Creatine (units (unknown) date) Kinase unknown) (unknown) (no (unknown) (unknown) Total Protein 7.9 (units (unknown) date) unknown) (unknown) (no (unknown) (unknown) Total Protein (units ( unknown) date) unknown) (unknown) (no (unknown) (unknown) Troponin I < (units (u nknown) date) 0.012 unknown) (unknown) (no (unknown) (unknown) Troponin I (units (unk nown) date) unknown) (unknown) (no (unknown) (unknown) Vital Signs (units (un known) date) unknown) (unknown) (no (unknown) (unknown) WBC 10.3 (units (unkno wn) date) unknown) (unknown) (no (unknown) (unknown) WBC (units (unkno wn) date) unknown) (unknown) (no (unknown) (unknown) Xarelto for many (units (unknown) date) years, pacemaker unknown) placement for sick sinus syndrome, history of (unknown) (no (unknown) (unknown) Xarelto, multiple (units (unknown) date) healing lumbar unknown) compression fractures, bilateral rib fractures (unknown) (no (unknown) (unknown) [Embedded Image (units (unknown) date) Not Available] unknown) (unknown) (no (unknown) (unknown) admits that the (units (unknown) date) majority of his unknown) day is consume with severe pain. (unknown) (no (unknown) (unknown) alcohol intake (units (unknown) date) frequency unknown) holiday/special occasion (unknown) (no (unknown) (unknown) and continues to (units (unknown) date) be in sinus unknown) rhythm. No WBC, mono 11,000. Stable electrolytes (unknown) (no (unknown) (unknown) bimatoprost 0.01 (units (unknown) date) % eye drops 1 drp unknown) ophthalmic (eye) DAILY 10/24/22 10/24/22 (unknown) (no (unknown) (unknown) bupropion HCl 150 (units (unknown) date) mg tablet,12 hr unknown) 150 mg PO BID 10/24/22 10/24/22 History (unknown) (no (unknown) (unknown) capsule,extended (units (unknown) date) release 24 hr unknown) (unknown) (no (unknown) (unknown) chest pain but (units (unknown) date) does state that he unknown) is frequently short of breath but admits that (unknown) (no (unknown) (unknown) comparison for (units (unknown) date) labs diagnostics unknown) or EKG in system. CT of chest abdomen pelvis: (unknown) (no (unknown) (unknown) complications (units ( unknown) date) because of the unknown) severe malnutrition in relation to acute (unknown) (no (unknown) (unknown) denies any chest (units (unknown) date) pain but does unknown) state that he is frequently short of breath but (unknown) (no (unknown) (unknown) denies any loss (units (unknown) date) of control of unknown) bowel or bladder.? He states he has significant (unknown) (no (unknown) (unknown) diagnostic (units (unk nown) date) imaging, and unknown) laboratory results. (unknown) (no (unknown) (unknown) diltiazem HCl 240 (units (unknown) date) mg 240 mg PO DAILY unknown) 10/24/22 10/24/22 History (unknown) (no (unknown) (unknown) documented. (units (un known) date) unknown) (unknown) (no (unknown) (unknown) dorzolamide 22.3 (units (unknown) date) mg-timolol 6.8 1 unknown) drp ophthalmic (eye) DAILY 10/24/22 10/24/22 (unknown) (no (unknown) (unknown) emptying but no (units (unknown) date) findings on unknown) imaging at this time. Dr. Altman consulted does (unknown) (no (unknown) (unknown) evaluated in (units (u nknown) date) imaging completed unknown) prior at another facility, and has seen Dr. Norman (unknown) (no (unknown) (unknown) finasteride 5 mg (units (unknown) date) tablet 5 mg PO unknown) DAILY 10/24/22 10/24/22 History (unknown) (no (unknown) (unknown) for evaluation (units (unknown) date) episodes of unknown) shortness of breath and fatigue but primarily due to (unknown) (no (unknown) (unknown) for multiple (units (u nknown) date) falls and gait unknown) instability, and dietary consult for BMI 22.8. (unknown) (no (unknown) (unknown) ground level fall (units (unknown) date) September 2022, at unknown) another facility prior presented to ED for (unknown) (no (unknown) (unknown) illness/chronic (units (unknown) date) illness. This unknown) increases the difficulty in complexity of medical (unknown) (no (unknown) (unknown) inability to (units (u nknown) date) function at home unknown) due to pain. (unknown) (no (unknown) (unknown) intake and (units (unk nown) date) nutrition. unknown) (unknown) (no (unknown) (unknown) lumbar, clavicle, (units (unknown) date) left, ribs, unknown) bilaterally, acute on chronic, present on ad (unknown) (no (unknown) (unknown) management and (units (unknown) date) increases the unknown) chances poor outcomes such as mortality and (unknown) (no (unknown) (unknown) mg/mL eye drops (units (unknown) date) unknown) (unknown) (no (unknown) (unknown) mission (units (unkno wn) date) unknown) (unknown) (no (unknown) (unknown) morbidity as well (units (unknown) date) as impaired wound unknown) healing, and immune suppression. (unknown) (no (unknown) (unknown) multiple lumbar (units (unknown) date) compression unknown) fractures, clavicle fracture, rib fractures due to (unknown) (no (unknown) (unknown) multiple lumbar (units (unknown) date) compression unknown) fractures, clavicle fracture, rib fractures presents (unknown) (no (unknown) (unknown) negative, initial (units (unknown) date) EKG in ED AFib unknown) with a rate of 136, post cardioversion sinus (unknown) (no (unknown) (unknown) nonobstructing, (units (unknown) date) cholelithiasis, unknown) colonic diverticulosis. Patient was seen (unknown) (no (unknown) (unknown) not feel that the (units (unknown) date) patient requires unknown) surgical intervention, will consult tomorrow. (unknown) (no (unknown) (unknown) omeprazole 20 mg (units (unknown) date) capsule,delayed 20 unknown) mg PO DAILY 10/24/22 10/24/22 History (unknown) (no (unknown) (unknown) ortho regarding (units (unknown) date) multiple unknown) fractures, is scheduled for follow-up on 10/25/2021. (unknown) (no (unknown) (unknown) osteopenic (units (unk nown) date) compression unknown) fractures with retropulsed fracture segment at L1 (unknown) (no (unknown) (unknown) pain that is (units (u nknown) date) worse with range unknown) of motion and improves with rest.? He denies any (unknown) (no (unknown) (unknown) potassium 3.8, (units (unknown) date) Mag 1.9, PT 17.4, unknown) INR 1.5, initial troponin negative, COVID (unknown) (no (unknown) (unknown) process but (units (un known) date) nothing further unknown) noted. Patient admitted for AFib with RVR, pacer on (unknown) (no (unknown) (unknown) release (units (unkno wn) date) unknown) (unknown) (no (unknown) (unknown) resulting in (units (u nknown) date) moderate central unknown) stenosis. (unknown) (no (unknown) (unknown) resulting in (units (u nknown) date) moderate central unknown) stenosis.? He denies any numbness, tingling or (unknown) (no (unknown) (unknown) rhythm with sinus (units (unknown) date) arrhythmia rate of unknown) [address] and T-wave changes, no (unknown) (no (unknown) (unknown) rhythm, echo (units (u nknown) date) tomorrow, pain unknown) control for fractures, ortho consult, PT/OT consult (unknown) (no (unknown) (unknown) rivaroxaban 20 mg (units (unknown) date) tablet (Xarelto) unknown) 20 mg PO QPM 10/24/22 10/24/22 History (unknown) (no (unknown) (unknown) saturation 98% on (units (unknown) date) room air. In ED unknown) patient was in AFib with RVR heart rates 143 (unknown) (no (unknown) (unknown) severe midline (units (unknown) date) low back pain.? He unknown) had 2 falls, the most recent of which was in (unknown) (no (unknown) (unknown) significant pain (units (unknown) date) that is worse with unknown) range of motion and improves with rest.? He (unknown) (no (unknown) (unknown) sustained-release (units (unknown) date) unknown) (unknown) (no (unknown) (unknown) tamsulosin 0.4 mg (units (unknown) date) capsule 0.4 mg PO unknown) BEDTIME 10/24/22 10/24/22 History (unknown) (no (unknown) (unknown) the end of (units (unk nown) date) September and has ? unknown) He denies any numbness, tingling or weakness, (unknown) (no (unknown) (unknown) the end of (units (unkn own) date) September and has unknown) advanced imaging from our facility noting multilevel (unknown) (no (unknown) (unknown) the majority of (units (unknown) date) his day is consume unknown) with severe pain. (unknown) (no (unknown) (unknown) the patient's (units ( unknown) date) current unknown) medications. (unknown) (no (unknown) (unknown) today; this time (units (unknown) date) is exclusive of unknown) procedural time. (unknown) (no (unknown) (unknown) topical ointment (units (unknown) date) unknown) (unknown) (no (unknown) (unknown) triamcinolone (units ( unknown) date) acetonide 0.1 % 1 unknown) applic topical DAILY PRN Dry Skin 10/24/22 (unknown) (no (unknown) (unknown) ventricular (units (un known) date) tachycardia, unknown) osteoporosis, frequent falls, previously seen for (unknown) (no (unknown) (unknown) vitamin B complex (units (unknown) date) (B 1 tab PO DAILY unknown) 10/24/22 10/24/22 History (unknown) (no (unknown) (unknown) weakness, denies (units (unknown) date) any loss of unknown) control of bowel or bladder.? He states he has (unknown) (no (unknown) (unknown) worsening (units (unkn own) date) episodes of unknown) shortness of breath and fatigue but primarily due to Result panel 261 (unknown) (no date) (unknown) (unknown) 5.1 % (unkn own) (unknown) (no date) (unknown) (unknown) 5.1 % (unkn own) Result panel 262 (unknown) (no (unknown) (unknown) (no value) (units (unk nown) date) unknown) (unknown) (no (unknown) (unknown) ([place]) (units (unkn own) date) unknown) (unknown) (no (unknown) (unknown) (past 8 hours): (units (unknown) date) unknown) (unknown) (no (unknown) (unknown) - Managed (units (unkn own) date) outpatient Dr. Norman unknown) ortho -scheduled for follow-up on 10/25/2021. (unknown) (no (unknown) (unknown) -10/07/2022 (units (un known) date) advanced imaging unknown) from our facility C-spine and lumbar noting (unknown) (no (unknown) (unknown) -Chest x-ray (units (u nknown) date) radiology noted unknown) was a poor exam, document abnormal cardiopulmonary (unknown) (no (unknown) (unknown) -September 2022: (units (unknown) date) Ground level fall unknown) resulting in multiple pathologic fractures. (unknown) (no (unknown) (unknown) -In ED patient (units (unknown) date) was in AFib with unknown) RVR heart rates 143-130, and 2 episodes of V (unknown) (no (unknown) (unknown) -On admit patient (units (unknown) date) is stable temp unknown) 98.2?, BP 140/80, HR 90 sinus rhythm, RR 15, O2 (unknown) (no (unknown) (unknown) -On admit: CT of (units (unknown) date) chest abdomen unknown) pelvis: Multiple lumbar compression fractures (unknown) (no (unknown) (unknown) -Social (units (unkno wn) date) Determinants of unknown) Health that impact treatment or disposition: age, (unknown) (no (unknown) (unknown) -as evidence by (units (unknown) date) BMI 22.8 unknown) (unknown) (no (unknown) (unknown) -dietary consult (units (unknown) date) ordered to unknown) evaluate and implement steps to improve caloric (unknown) (no (unknown) (unknown) -initial EKG in ED (units (unknown) date) AFib with a rate unknown) of 136, post cardioversion sinus rhythm with (unknown) (no (unknown) (unknown) -patient's (units (unk nown) date) malnutrition unknown) places them at high risk for medical and surgical (unknown) (no (unknown) (unknown) -potassium 3.8, (units (unknown) date) Mag 1.9, PT 17.4, unknown) INR 1.5, initial troponin negative, COVID (unknown) (no (unknown) (unknown) 10/24/22 10/24/22 (units (unknown) date) 10/24/22 unknown) (unknown) (no (unknown) (unknown) 10/24/22 16:40 (units (unknown) date) unknown) (unknown) (no (unknown) (unknown) 10/24/22 History (units (unknown) date) unknown) (unknown) (no (unknown) (unknown) 10/24/22 (units (unkno wn) date) unknown) (unknown) (no (unknown) (unknown) [id number] (units (unkno wn) date) unknown) (unknown) (no (unknown) (unknown) 1. AFib with RVR, (units (unknown) date) acute on chronic, unknown) on Xarelto, present on admission (unknown) (no (unknown) (unknown) 143-30, and 2 (units ( unknown) date) episodes of V-tach unknown) 8 attend be runs. Was successfully (unknown) (no (unknown) (unknown) 16:14 10/24/22 (units (unknown) date) unknown) (unknown) (no (unknown) (unknown) 16:40 16:40 16:40 (units (unknown) date) unknown) (unknown) (no (unknown) (unknown) 16:51 10/24/22 (units (unknown) date) unknown) (unknown) (no (unknown) (unknown) 16:52 10/24/22 (units (unknown) date) unknown) (unknown) (no (unknown) (unknown) 16:52 (units (unkno wn) date) unknown) (unknown) (no (unknown) (unknown) 16:55 (units (unkno wn) date) unknown) (unknown) (no (unknown) (unknown) 17:00 10/24/22 (units (unknown) date) unknown) (unknown) (no (unknown) (unknown) 17:00 (units (unkno wn) date) unknown) (unknown) (no (unknown) (unknown) 17:16 10/24/22 (units (unknown) date) unknown) (unknown) (no (unknown) (unknown) 17:20 10/24/22 (units (unknown) date) unknown) (unknown) (no (unknown) (unknown) 17:20 (units (unkno wn) date) unknown) (unknown) (no (unknown) (unknown) 17:30 10/24/22 (units (unknown) date) unknown) (unknown) (no (unknown) (unknown) 17:31 10/24/22 (units (unknown) date) unknown) (unknown) (no (unknown) (unknown) 17:31 (units (unkno wn) date) unknown) (unknown) (no (unknown) (unknown) 17:35 10/24/22 (units (unknown) date) unknown) (unknown) (no (unknown) (unknown) 17:35 (units (unkno wn) date) unknown) (unknown) (no (unknown) (unknown) 17:40 10/24/22 (units (unknown) date) unknown) (unknown) (no (unknown) (unknown) 17:45 10/24/22 (units (unknown) date) unknown) (unknown) (no (unknown) (unknown) 17:51 10/24/22 (units (unknown) date) unknown) (unknown) (no (unknown) (unknown) 17:51 (units (unkno wn) date) unknown) (unknown) (no (unknown) (unknown) 17:55 10/24/22 (units (unknown) date) unknown) (unknown) (no (unknown) (unknown) 17:55 (units (unkno wn) date) unknown) (unknown) (no (unknown) (unknown) 18:00 10/24/22 (units (unknown) date) unknown) (unknown) (no (unknown) (unknown) 18:05 10/24/22 (units (unknown) date) unknown) (unknown) (no (unknown) (unknown) 18:05 (units (unkno wn) date) unknown) (unknown) (no (unknown) (unknown) 18:10 10/24/22 (units (unknown) date) unknown) (unknown) (no (unknown) (unknown) 18:10 (units (unkno wn) date) unknown) (unknown) (no (unknown) (unknown) 18:15 10/24/22 (units (unknown) date) unknown) (unknown) (no (unknown) (unknown) 18:20 10/24/22 (units (unknown) date) unknown) (unknown) (no (unknown) (unknown) 18:20 (units (unkno wn) date) unknown) (unknown) (no (unknown) (unknown) 18:25 10/24/22 (units (unknown) date) unknown) (unknown) (no (unknown) (unknown) 18:25 (units (unkno wn) date) unknown) (unknown) (no (unknown) (unknown) 18:30 10/24/22 (units (unknown) date) unknown) (unknown) (no (unknown) (unknown) 19:00 (units (unkno wn) date) unknown) (unknown) (no (unknown) (unknown) 19:07 10/24/22 (units (unknown) date) unknown) (unknown) (no (unknown) (unknown) 19:10 10/24/22 (units (unknown) date) unknown) (unknown) (no (unknown) (unknown) 19:10 (units (unkno wn) date) unknown) (unknown) (no (unknown) (unknown) 19:15 10/24/22 (units (unknown) date) unknown) (unknown) (no (unknown) (unknown) 19:15 (units (unkno wn) date) unknown) (unknown) (no (unknown) (unknown) 19:21 10/24/22 (units (unknown) date) unknown) (unknown) (no (unknown) (unknown) 19:25 10/24/22 (units (unknown) date) unknown) (unknown) (no (unknown) (unknown) 19:25 (units (unkno wn) date) unknown) (unknown) (no (unknown) (unknown) 19:30 10/24/22 (units (unknown) date) unknown) (unknown) (no (unknown) (unknown) 19:30 (units (unkno wn) date) unknown) (unknown) (no (unknown) (unknown) 19:35 10/24/22 (units (unknown) date) unknown) (unknown) (no (unknown) (unknown) 19:40 10/24/22 (units (unknown) date) unknown) (unknown) (no (unknown) (unknown) 19:40 (units (unkno wn) date) unknown) (unknown) (no (unknown) (unknown) 19:45 10/24/22 (units (unknown) date) unknown) (unknown) (no (unknown) (unknown) 19:45 (units (unkno wn) date) unknown) (unknown) (no (unknown) (unknown) 19:50 10/24/22 (units (unknown) date) unknown) (unknown) (no (unknown) (unknown) 19:55 10/24/22 (units (unknown) date) unknown) (unknown) (no (unknown) (unknown) 19:55 (units (unkno wn) date) unknown) (unknown) (no (unknown) (unknown) 2. Unstable gait, (units (unknown) date) frequent GF falls, unknown) resulting in multiple pathologic (unknown) (no (unknown) (unknown) 20:00 10/24/22 (units (unknown) date) unknown) (unknown) (no (unknown) (unknown) 20:00 (units (unkno wn) date) unknown) (unknown) (no (unknown) (unknown) 20:06 10/24/22 (units (unknown) date) unknown) (unknown) (no (unknown) (unknown) 20:10 10/24/22 (units (unknown) date) unknown) (unknown) (no (unknown) (unknown) 20:10 (units (unkno wn) date) unknown) (unknown) (no (unknown) (unknown) 20:15 10/24/22 (units (unknown) date) unknown) (unknown) (no (unknown) (unknown) 20:15 (units (unkno wn) date) unknown) (unknown) (no (unknown) (unknown) 20:20 10/24/22 (units (unknown) date) unknown) (unknown) (no (unknown) (unknown) 20:30 10/24/22 (units (unknown) date) unknown) (unknown) (no (unknown) (unknown) 20:30 (units (unkno wn) date) unknown) (unknown) (no (unknown) (unknown) 20:45 10/24/22 (units (unknown) date) unknown) (unknown) (no (unknown) (unknown) 20:45 (units (unkno wn) date) unknown) (unknown) (no (unknown) (unknown) 3 through 8 (units (un known) date) right, left medial unknown) clavicle fracture unstable gait frequent falls. (unknown) (no (unknown) (unknown) 3. Malnutrition, (units (unknown) date) mild, acute on unknown) chronic, present on admission (unknown) (no (unknown) (unknown) 30, and 2 (units (unkn own) date) episodes of V-tach unknown) 8 attend be runs. Was successfully cardioverted (unknown) (no (unknown) (unknown) ALT 27 (units (unkno wn) date) unknown) (unknown) (no (unknown) (unknown) ALT (units (unkno wn) date) unknown) (unknown) (no (unknown) (unknown) APTT 36 (units (unkno wn) date) unknown) (unknown) (no (unknown) (unknown) APTT (units (unkno wn) date) unknown) (unknown) (no (unknown) (unknown) AST 32 (units (unkno wn) date) unknown) (unknown) (no (unknown) (unknown) AST (units (unkno wn) date) unknown) (unknown) (no (unknown) (unknown) Age/Sex: 86 / M (units (unknown) date) unknown) (unknown) (no (unknown) (unknown) Albumin 3.7 (units (un known) date) unknown) (unknown) (no (unknown) (unknown) Albumin (units (unkno wn) date) unknown) (unknown) (no (unknown) (unknown) Albumin/Globulin (units (unknown) date) Ratio 0.9 L unknown) (unknown) (no (unknown) (unknown) Albumin/Globulin (units (unknown) date) Ratio unknown) (unknown) (no (unknown) (unknown) Alkaline (units (unkno wn) date) Phosphatase 108 unknown) (unknown) (no (unknown) (unknown) Alkaline (units (unkno wn) date) Phosphatase unknown) (unknown) (no (unknown) (unknown) All 12 point (units (un known) date) systems reviewed unknown) with the patient and are negative except otherwise (unknown) (no (unknown) (unknown) Allergies (units (unkn own) date) unknown) (unknown) (no (unknown) (unknown) Allergy/AdvReac (units (unknown) date) Type Severity unknown) Reaction Status Date / Time (unknown) (no (unknown) (unknown) Assessment + Plan (units (unknown) date) narrative: unknown) (unknown) (no (unknown) (unknown) Assessment + Plan (units (unknown) date) unknown) (unknown) (no (unknown) (unknown) BUN 9 (units (unkno wn) date) unknown) (unknown) (no (unknown) (unknown) BUN (units (unkno wn) date) unknown) (unknown) (no (unknown) (unknown) BUN/Creatinine (units (unknown) date) Ratio 11.3 unknown) (unknown) (no (unknown) (unknown) BUN/Creatinine (units (unknown) date) Ratio unknown) (unknown) (no (unknown) (unknown) Baso # (Auto) 100 (units (unknown) date) unknown) (unknown) (no (unknown) (unknown) Baso # (Auto) (units ( unknown) date) unknown) (unknown) (no (unknown) (unknown) Baso % (Auto) 1.3 (units (unknown) date) unknown) (unknown) (no (unknown) (unknown) Baso % (Auto) (units ( unknown) date) unknown) (unknown) (no (unknown) (unknown) Been Physically (units (unknown) date) Hurt or No unknown) (unknown) (no (unknown) (unknown) Blood Pressure (units (unknown) date) 105/80 unknown) (unknown) (no (unknown) (unknown) Blood Pressure (units (unknown) date) 118/81 unknown) (unknown) (no (unknown) (unknown) Blood Pressure (units (unknown) date) 119/94 H unknown) (unknown) (no (unknown) (unknown) Blood Pressure (units (unknown) date) 120/82 unknown) (unknown) (no (unknown) (unknown) Blood Pressure (units (unknown) date) 121/81 135/82 unknown) (unknown) (no (unknown) (unknown) Blood Pressure (units (unknown) date) 122/83 128/79 unknown) (unknown) (no (unknown) (unknown) Blood Pressure (units (unknown) date) 123/79 121/83 unknown) (unknown) (no (unknown) (unknown) Blood Pressure (units (unknown) date) 125/81 127/75 unknown) (unknown) (no (unknown) (unknown) Blood Pressure (units (unknown) date) 125/90 unknown) (unknown) (no (unknown) (unknown) Blood Pressure (units (unknown) date) 129/84 117/83 unknown) (unknown) (no (unknown) (unknown) Blood Pressure (units (unknown) date) 131/75 unknown) (unknown) (no (unknown) (unknown) Blood Pressure (units (unknown) date) 131/85 153/82 H unknown) (unknown) (no (unknown) (unknown) Blood Pressure (units (unknown) date) 132/84 136/88 unknown) (unknown) (no (unknown) (unknown) Blood Pressure (units (unknown) date) 134/102 H unknown) (unknown) (no (unknown) (unknown) Blood Pressure (units (unknown) date) 134/82 unknown) (unknown) (no (unknown) (unknown) Blood Pressure (units (unknown) date) 134/87 unknown) (unknown) (no (unknown) (unknown) Blood Pressure (units (unknown) date) 136/92 H unknown) (unknown) (no (unknown) (unknown) Blood Pressure (units (unknown) date) 140/80 unknown) (unknown) (no (unknown) (unknown) Blood Pressure (units (unknown) date) 140/92 H unknown) (unknown) (no (unknown) (unknown) Blood Pressure (units (unknown) date) 141/93 H 137/96 H unknown) (unknown) (no (unknown) (unknown) Blood Pressure (units (unknown) date) 143/81 H 128/82 unknown) (unknown) (no (unknown) (unknown) Blood Pressure (units (unknown) date) 148/92 H unknown) (unknown) (no (unknown) (unknown) Blood Pressure (units (unknown) date) 148/93 H unknown) (unknown) (no (unknown) (unknown) Blood Pressure (units (unknown) date) 150/90 H 151/97 H unknown) (unknown) (no (unknown) (unknown) Blood Pressure (units (unknown) date) 150/97 H 152/86 H unknown) (unknown) (no (unknown) (unknown) CK-MB (CK-2) Rel (units (unknown) date) Index TNP unknown) (unknown) (no (unknown) (unknown) CK-MB (CK-2) Rel (units (unknown) date) Index unknown) (unknown) (no (unknown) (unknown) CK-MB (CK-2) TNP (units (unknown) date) unknown) (unknown) (no (unknown) (unknown) CK-MB (CK-2) (units (u nknown) date) unknown) (unknown) (no (unknown) (unknown) COVID PCR: (units (unk nown) date) Negative unknown) (unknown) (no (unknown) (unknown) Calcium 9.0 (units (un known) date) unknown) (unknown) (no (unknown) (unknown) Calcium (units (unkno wn) date) unknown) (unknown) (no (unknown) (unknown) Carbon Dioxide 23 (units (unknown) date) unknown) (unknown) (no (unknown) (unknown) Carbon Dioxide (units (unknown) date) unknown) (unknown) (no (unknown) (unknown) Chest x-ray (units (un known) date) radiology noted unknown) was a poor exam, document abnormal cardiopulmonary (unknown) (no (unknown) (unknown) Chief complaint: (units (unknown) date) Back pain unknown) (unknown) (no (unknown) (unknown) Chloride 106 (units (u nknown) date) unknown) (unknown) (no (unknown) (unknown) Chloride (units (unkno wn) date) unknown) (unknown) (no (unknown) (unknown) Code status: Full (units (unknown) date) unknown) (unknown) (no (unknown) (unknown) Complex-Vitamin (units (unknown) date) B12 tablet) unknown) (unknown) (no (unknown) (unknown) Creatinine 0.80 (units (unknown) date) unknown) (unknown) (no (unknown) (unknown) Creatinine (units (unk nown) date) unknown) (unknown) (no (unknown) (unknown) Critical Care (units ( unknown) date) time: unknown) (unknown) (no (unknown) (unknown) : 1935 (units (unknown) date) Acct:[id number] unknown) (unknown) (no (unknown) (unknown) DVT/VTE (units (unkno wn) date) prophylaxis: unknown) Patient on Xarelto, SCDs only (unknown) (no (unknown) (unknown) Date Patient (units (u nknown) date) Seen: 10/24/22 unknown) (unknown) (no (unknown) (unknown) Date of Service: (units (unknown) date) 10/24/22 unknown) (unknown) (no (unknown) (unknown) Disposition: (units (u nknown) date) Patient admitted unknown) to acute care for AFib with RVR, now in sinus (unknown) (no (unknown) (unknown) Dr. Villar in the (units (unknown) date) ED noted a unknown) possible developing ileus, will improve bowel (unknown) (no (unknown) (unknown) Environment (units (un known) date) unknown) (unknown) (no (unknown) (unknown) Eos # (Auto) 200 (units (unknown) date) unknown) (unknown) (no (unknown) (unknown) Eos # (Auto) (units (u nknown) date) unknown) (unknown) (no (unknown) (unknown) Eos % (Auto) 2.1 (units (unknown) date) unknown) (unknown) (no (unknown) (unknown) Eos % (Auto) (units (u nknown) date) unknown) (unknown) (no (unknown) (unknown) Estimated GFR > (units (unknown) date) 60 unknown) (unknown) (no (unknown) (unknown) Estimated GFR (units ( unknown) date) unknown) (unknown) (no (unknown) (unknown) Exam (units (unkno wn) date) unknown) (unknown) (no (unknown) (unknown) Family + Social (units (unknown) date) History unknown) (unknown) (no (unknown) (unknown) Feels Safe in (units ( unknown) date) Current Yes unknown) (unknown) (no (unknown) (unknown) Globulin 4.2 H (units (unknown) date) unknown) (unknown) (no (unknown) (unknown) Globulin (units (unkno wn) date) unknown) (unknown) (no (unknown) (unknown) Glucose 89 (units (unk nown) date) unknown) (unknown) (no (unknown) (unknown) Glucose (units (unkno wn) date) unknown) (unknown) (no (unknown) (unknown) Hct 45.9 (units (unkno wn) date) unknown) (unknown) (no (unknown) (unknown) Hct (units (unkno wn) date) unknown) (unknown) (no (unknown) (unknown) Hgb 15.6 (units (unkno wn) date) unknown) (unknown) (no (unknown) (unknown) Hgb (units (unkno wn) date) unknown) (unknown) (no (unknown) (unknown) History + (units (unkn own) date) Physical Report unknown) (unknown) (no (unknown) (unknown) History of (units (unk nown) date) Present Illness unknown) (unknown) (no (unknown) (unknown) History (units (unkno wn) date) unknown) (unknown) (no (unknown) (unknown) Home Medications (units (unknown) date) and Allergies unknown) (unknown) (no (unknown) (unknown) Home Medications (units (unknown) date) unknown) (unknown) (no (unknown) (unknown) I have personally (units (unknown) date) reviewed patient's unknown) chart notes from PCP, specialists, (unknown) (no (unknown) (unknown) I have utilized (units (unknown) date) all available unknown) immediate resources to obtain, update, or review (unknown) (no (unknown) (unknown) I spent a total (units (unknown) date) of [] minutes of unknown) critical care time on this patient's care (unknown) (no (unknown) (unknown) INR 1.5 H (units (unkn own) date) unknown) (unknown) (no (unknown) (unknown) INR (units (unkno wn) date) unknown) (unknown) (no (unknown) (unknown) [facility] (units (unknown) date) [address] [place] [address] unknown) [place] [address] (unknown) (no (unknown) (unknown) Nicolas Torrez (units (unknown) date) 86-year-old male unknown) slightly poor historian with history of AFib on (unknown) (no (unknown) (unknown) 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 (unknown) (no (unknown) (unknown) L1-L4, hepatic (units (unknown) date) steatosis, noted unknown) gallstones nonobstructing, cholelithiasis, (unknown) (no (unknown) (unknown) Laboratory (units (unk nown) date) Results - last 24 unknown) hr (unknown) (no (unknown) (unknown) Labs (units (unkno wn) date) unknown) (unknown) (no (unknown) (unknown) Labs: (units (unkno wn) date) unknown) (unknown) (no (unknown) (unknown) Lipase 169 (units (unk nown) date) unknown) (unknown) (no (unknown) (unknown) Lipase (units (unkno wn) date) unknown) (unknown) (no (unknown) (unknown) Lymph # (Auto) (units (unknown) date) 2300 unknown) (unknown) (no (unknown) (unknown) Lymph # (Auto) (units (unknown) date) unknown) (unknown) (no (unknown) (unknown) Lymph % (Auto) (units (unknown) date) 22.0 L unknown) (unknown) (no (unknown) (unknown) Lymph % (Auto) (units (unknown) date) unknown) (unknown) (no (unknown) (unknown) MCH 33.9 (units (unkno wn) date) unknown) (unknown) (no (unknown) (unknown) MCH (units (unkno wn) date) unknown) (unknown) (no (unknown) (unknown) MCHC 34.1 (units (unkn own) date) unknown) (unknown) (no (unknown) (unknown) MCHC (units (unkno wn) date) unknown) (unknown) (no (unknown) (unknown) MCV 99.4 (units (unkno wn) date) unknown) (unknown) (no (unknown) (unknown) MCV (units (unkno wn) date) unknown) (unknown) (no (unknown) (unknown) Magnesium 1.9 (units ( unknown) date) unknown) (unknown) (no (unknown) (unknown) Magnesium (units (unkn own) date) unknown) (unknown) (no (unknown) (unknown) Medication (units (unk nown) date) Instructions unknown) Recorded Confirmed Type (unknown) (no (unknown) (unknown) Meds (units (unkno wn) date) unknown) (unknown) (no (unknown) (unknown) Brule # (Auto) (units ( unknown) date) 1100 H unknown) (unknown) (no (unknown) (unknown) Brule # (Auto) (units ( unknown) date) unknown) (unknown) (no (unknown) (unknown) Brule % (Auto) (units ( unknown) date) 11.0 unknown) (unknown) (no (unknown) (unknown) Brule % (Auto) (units ( unknown) date) unknown) (unknown) (no (unknown) (unknown) Multiple lumbar (units (unknown) date) compression unknown) fractures L1-L4, hepatic steatosis, noted gallstones (unknown) (no (unknown) (unknown) Narrative: (units (unk nown) date) unknown) (unknown) (no (unknown) (unknown) Neut # (Auto) (units ( unknown) date) 6500 unknown) (unknown) (no (unknown) (unknown) Neut # (Auto) (units ( unknown) date) unknown) (unknown) (no (unknown) (unknown) Neut % (Auto) (units ( unknown) date) 63.6 unknown) (unknown) (no (unknown) (unknown) Neut % (Auto) (units ( unknown) date) unknown) (unknown) (no (unknown) (unknown) No Known Drug (units ( unknown) date) Allergies Allergy unknown) Verified 10/24/22 21:16 (unknown) (no (unknown) (unknown) Objective (units (unkn own) date) unknown) (unknown) (no (unknown) (unknown) On admit patient (units (unknown) date) is stable temp unknown) 98.2?, BP 140/80, HR 90 sinus rhythm, RR 15, O2 (unknown) (no (unknown) (unknown) Oxygen Delivery (units (unknown) date) Method Room Air unknown) (unknown) (no (unknown) (unknown) Oxygen Delivery (units (unknown) date) Method unknown) (unknown) (no (unknown) (unknown) PT 17.4 H (units (unkn own) date) unknown) (unknown) (no (unknown) (unknown) PT (units (unkno wn) date) unknown) (unknown) (no (unknown) (unknown) Patient History (units (unknown) date) unknown) (unknown) (no (unknown) (unknown) Patient admitted (units (unknown) date) for AFib with RVR, unknown) pacer on Xarelto, multiple healing lumbar (unknown) (no (unknown) (unknown) Patient: (units (unkno wn) date) Nicolas Neely unknown) MR#: [id number] (unknown) (no (unknown) (unknown) Plt Count 218 (units ( unknown) date) unknown) (unknown) (no (unknown) (unknown) Plt Count (units (unkn own) date) unknown) (unknown) (no (unknown) (unknown) Potassium 3.8 (units ( unknown) date) unknown) (unknown) (no (unknown) (unknown) Potassium (units (unkn own) date) unknown) (unknown) (no (unknown) (unknown) Provider: (units (unkn own) date) Ana Maria Ortega unknown) 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 (unknown) (no (unknown) (unknown) Pulse Oximetry 94 (units (unknown) date) unknown) (unknown) (no (unknown) (unknown) Pulse Oximetry 95 (units (unknown) date) 95 unknown) (unknown) (no (unknown) (unknown) Pulse Oximetry 95 (units (unknown) date) 96 unknown) (unknown) (no (unknown) (unknown) Pulse Oximetry 95 (units (unknown) date) unknown) (unknown) (no (unknown) (unknown) Pulse Oximetry 96 (units (unknown) date) 95 unknown) (unknown) (no (unknown) (unknown) Pulse Oximetry 96 (units (unknown) date) 97 unknown) (unknown) (no (unknown) (unknown) Pulse Oximetry 96 (units (unknown) date) unknown) (unknown) (no (unknown) (unknown) Pulse Oximetry 97 (units (unknown) date) 97 unknown) (unknown) (no (unknown) (unknown) Pulse Oximetry 98 (units (unknown) date) 98 unknown) (unknown) (no (unknown) (unknown) Pulse Oximetry 98 (units (unknown) date) 99 unknown) (unknown) (no (unknown) (unknown) Pulse Oximetry 98 (units (unknown) date) unknown) (unknown) (no (unknown) (unknown) Pulse Oximetry 99 (units (unknown) date) 98 unknown) (unknown) (no (unknown) (unknown) Pulse Oximetry 99 (units (unknown) date) unknown) (unknown) (no (unknown) (unknown) Pulse Rate 133 H (units (unknown) date) unknown) (unknown) (no (unknown) (unknown) Pulse Rate 135 H (units (unknown) date) 118 H unknown) (unknown) (no (unknown) (unknown) Pulse Rate 135 H (units (unknown) date) 130 H unknown) (unknown) (no (unknown) (unknown) Pulse Rate 136 H (units (unknown) date) 131 H unknown) (unknown) (no (unknown) (unknown) Pulse Rate 138 H (units (unknown) date) 140 H unknown) (unknown) (no (unknown) (unknown) Pulse Rate 143 H (units (unknown) date) 136 H unknown) (unknown) (no (unknown) (unknown) Pulse Rate 85 86 (units (unknown) date) unknown) (unknown) (no (unknown) (unknown) Pulse Rate 85 (units ( unknown) date) unknown) (unknown) (no (unknown) (unknown) Pulse Rate 86 (units ( unknown) date) unknown) (unknown) (no (unknown) (unknown) Pulse Rate 87 84 (units (unknown) date) unknown) (unknown) (no (unknown) (unknown) Pulse Rate 87 89 (units (unknown) date) unknown) (unknown) (no (unknown) (unknown) Pulse Rate 88 89 (units (unknown) date) unknown) (unknown) (no (unknown) (unknown) Pulse Rate 90 85 (units (unknown) date) unknown) (unknown) (no (unknown) (unknown) Pulse Rate 90 91 (units (unknown) date) H unknown) (unknown) (no (unknown) (unknown) Pulse Rate 90 (units ( unknown) date) unknown) (unknown) (no (unknown) (unknown) Pulse Rate 91 H (units (unknown) date) 103 H unknown) (unknown) (no (unknown) (unknown) Pulse Rate 91 H (units (unknown) date) 90 unknown) (unknown) (no (unknown) (unknown) Pulse Rate 91 H (units (unknown) date) unknown) (unknown) (no (unknown) (unknown) Pulse Rate 92 H (units (unknown) date) 90 unknown) (unknown) (no (unknown) (unknown) Pulse Rate 92 H (units (unknown) date) unknown) (unknown) (no (unknown) (unknown) Pulse Rate 93 H (units (unknown) date) unknown) (unknown) (no (unknown) (unknown) RBC 4.62 (units (unkno wn) date) unknown) (unknown) (no (unknown) (unknown) RBC (units (unkno wn) date) unknown) (unknown) (no (unknown) (unknown) RDW 14.5 (units (unkno wn) date) unknown) (unknown) (no (unknown) (unknown) RDW (units (unkno wn) date) unknown) (unknown) (no (unknown) (unknown) Respiratory Rate (units (unknown) date) 11 L 17 unknown) (unknown) (no (unknown) (unknown) Respiratory Rate (units (unknown) date) 11 L unknown) (unknown) (no (unknown) (unknown) Respiratory Rate (units (unknown) date) 13 10 L unknown) (unknown) (no (unknown) (unknown) Respiratory Rate (units (unknown) date) 14 14 unknown) (unknown) (no (unknown) (unknown) Respiratory Rate (units (unknown) date) 14 21 unknown) (unknown) (no (unknown) (unknown) Respiratory Rate (units (unknown) date) 14 unknown) (unknown) (no (unknown) (unknown) Respiratory Rate (units (unknown) date) 15 13 unknown) (unknown) (no (unknown) (unknown) Respiratory Rate (units (unknown) date) 15 15 unknown) (unknown) (no (unknown) (unknown) Respiratory Rate (units (unknown) date) 15 16 unknown) (unknown) (no (unknown) (unknown) Respiratory Rate (units (unknown) date) 15 22 unknown) (unknown) (no (unknown) (unknown) Respiratory Rate (units (unknown) date) 15 unknown) (unknown) (no (unknown) (unknown) Respiratory Rate (units (unknown) date) 16 17 unknown) (unknown) (no (unknown) (unknown) Respiratory Rate (units (unknown) date) 16 unknown) (unknown) (no (unknown) (unknown) Respiratory Rate (units (unknown) date) 17 15 unknown) (unknown) (no (unknown) (unknown) Respiratory Rate (units (unknown) date) 17 unknown) (unknown) (no (unknown) (unknown) Respiratory Rate (units (unknown) date) 18 12 unknown) (unknown) (no (unknown) (unknown) Respiratory Rate (units (unknown) date) 18 unknown) (unknown) (no (unknown) (unknown) Respiratory Rate (units (unknown) date) 19 22 unknown) (unknown) (no (unknown) (unknown) Respiratory Rate (units (unknown) date) 20 13 unknown) (unknown) (no (unknown) (unknown) Respiratory Rate (units (unknown) date) 20 unknown) (unknown) (no (unknown) (unknown) Respiratory Rate (units (unknown) date) 21 11 L unknown) (unknown) (no (unknown) (unknown) Respiratory Rate (units (unknown) date) 23 15 unknown) (unknown) (no (unknown) (unknown) Result Diagrams: (units (unknown) date) unknown) (unknown) (no (unknown) (unknown) Review of Systems (units (unknown) date) unknown) (unknown) (no (unknown) (unknown) SARS-CoV-2 (PCR) (units (unknown) date) Negative unknown) (unknown) (no (unknown) (unknown) SARS-CoV-2 (PCR) (units (unknown) date) unknown) (unknown) (no (unknown) (unknown) Safety + (units (unkno wn) date) Behavioral: unknown) (unknown) (no (unknown) (unknown) Signed By: (units (unk nown) date) unknown) (unknown) (no (unknown) (unknown) Smoking Status (units (unknown) date) Never smoker unknown) (unknown) (no (unknown) (unknown) Sodium 139 (units (unk nown) date) unknown) (unknown) (no (unknown) (unknown) Sodium (units (unkno wn) date) unknown) (unknown) (no (unknown) (unknown) Surrogate (units (unkn own) date) decision maker: unknown) Son, patient also has a full-time caregiver [place]onte (unknown) (no (unknown) (unknown) T-wave changes, (units (unknown) date) no comparison for unknown) labs diagnostics or EKG in system. CT of (unknown) (no (unknown) (unknown) Temperature 98.2 (units (unknown) date) F unknown) (unknown) (no (unknown) (unknown) Temperature (units (un known) date) unknown) (unknown) (no (unknown) (unknown) Threatened By a (units (unknown) date) Person unknown) (unknown) (no (unknown) (unknown) Time Patient (units (u nknown) date) Seen: 22:04 unknown) (unknown) (no (unknown) (unknown) Time Spent With (units (unknown) date) Patient unknown) (unknown) (no (unknown) (unknown) Tobacco + (units (unkn own) date) Substance use: unknown) (unknown) (no (unknown) (unknown) Total Bilirubin (units (unknown) date) 1.1 unknown) (unknown) (no (unknown) (unknown) Total Bilirubin (units (unknown) date) unknown) (unknown) (no (unknown) (unknown) Total Creatine (units (unknown) date) Kinase < 20 L unknown) (unknown) (no (unknown) (unknown) Total Creatine (units (unknown) date) Kinase unknown) (unknown) (no (unknown) (unknown) Total Protein 7.9 (units (unknown) date) unknown) (unknown) (no (unknown) (unknown) Total Protein (units ( unknown) date) unknown) (unknown) (no (unknown) (unknown) Troponin I < (units (u nknown) date) 0.012 unknown) (unknown) (no (unknown) (unknown) Troponin I (units (unk nown) date) unknown) (unknown) (no (unknown) (unknown) Vital Signs (units (un known) date) unknown) (unknown) (no (unknown) (unknown) WBC 10.3 (units (unkno wn) date) unknown) (unknown) (no (unknown) (unknown) WBC (units (unkno wn) date) unknown) (unknown) (no (unknown) (unknown) Xarelto for many (units (unknown) date) years, pacemaker unknown) placement for sick sinus syndrome, history of (unknown) (no (unknown) (unknown) Xarelto, multiple (units (unknown) date) healing lumbar unknown) compression fractures, bilateral rib fractures (unknown) (no (unknown) (unknown) [Embedded Image (units (unknown) date) Not Available] unknown) (unknown) (no (unknown) (unknown) acute care (units (unk nown) date) inpatient hospital unknown) management for AFib RVR on Xarelto, sick sinus (unknown) (no (unknown) (unknown) alcohol intake (units (unknown) date) frequency unknown) holiday/special occasion (unknown) (no (unknown) (unknown) and continues to (units (unknown) date) be in sinus unknown) rhythm. No WBC, mono 11,000. Stable electrolytes (unknown) (no (unknown) (unknown) another facility, (units (unknown) date) and has seen unknown) Emerson jones regarding multiple fractures, is (unknown) (no (unknown) (unknown) bimatoprost 0.01 (units (unknown) date) % eye drops 1 drp unknown) ophthalmic (eye) DAILY 10/24/22 10/24/22 (unknown) (no (unknown) (unknown) bupropion HCl 150 (units (unknown) date) mg tablet,12 hr unknown) 150 mg PO BID 10/24/22 10/24/22 History (unknown) (no (unknown) (unknown) capsule,extended (units (unknown) date) release 24 hr unknown) (unknown) (no (unknown) (unknown) cardioversion (units ( unknown) date) sinus rhythm with unknown) sinus arrhythmia rate of [address] and (unknown) (no (unknown) (unknown) cardioverted and (units (unknown) date) continues to be in unknown) sinus rhythm. No WBC, mono 11,000. Stable (unknown) (no (unknown) (unknown) chest abdomen (units ( unknown) date) pelvis: Multiple unknown) lumbar compression fractures L1-L4, hepatic (unknown) (no (unknown) (unknown) chest pain but (units (unknown) date) does state that he unknown) is frequently short of breath but admits that (unknown) (no (unknown) (unknown) chronic, present (units (unknown) date) on admission unknown) (unknown) (no (unknown) (unknown) clavicle fracture (units (unknown) date) unstable gait unknown) frequent falls. Dr. Villar in the ED noted a (unknown) (no (unknown) (unknown) clavicle fracture (units (unknown) date) unknown) (unknown) (no (unknown) (unknown) colonic (units (unkno wn) date) diverticulosis. unknown) (unknown) (no (unknown) (unknown) comparison for (units (unknown) date) labs diagnostics unknown) or EKG in system. CT of chest abdomen pelvis: (unknown) (no (unknown) (unknown) complications (units ( unknown) date) because of the unknown) severe malnutrition in relation to acute (unknown) (no (unknown) (unknown) compression (units (un known) date) fractures, unknown) bilateral rib fractures 3 through 8 right, left medial (unknown) (no (unknown) (unknown) compression (units (unk nown) date) fractures, unknown) clavicle fracture, bilateral rib fractures, after failing (unknown) (no (unknown) (unknown) compression (units (un known) date) fractures, lumbar, unknown) clavicle, left, ribs, bilaterally, acute on (unknown) (no (unknown) (unknown) denies any loss (units (unknown) date) of control of unknown) bowel or bladder.? He states he has significant (unknown) (no (unknown) (unknown) diagnostic (units (unk nown) date) imaging, and unknown) laboratory results. (unknown) (no (unknown) (unknown) diltiazem HCl 240 (units (unknown) date) mg 240 mg PO DAILY unknown) 10/24/22 10/24/22 History (unknown) (no (unknown) (unknown) diverticulosis. (units (unknown) date) Patient was seen unknown) evaluated in imaging completed prior at (unknown) (no (unknown) (unknown) documented. (units (un known) date) unknown) (unknown) (no (unknown) (unknown) dorzolamide 22.3 (units (unknown) date) mg-timolol 6.8 1 unknown) drp ophthalmic (eye) DAILY 10/24/22 10/24/22 (unknown) (no (unknown) (unknown) electrolytes (units (u nknown) date) potassium 3.8, Mag unknown) 1.9, PT 17.4, INR 1.5, initial troponin (unknown) (no (unknown) (unknown) emptying but no (units (unknown) date) findings on unknown) imaging at this time. Dr. Altman consulted does (unknown) (no (unknown) (unknown) evaluated in (units (u nknown) date) imaging completed unknown) prior at another facility, and has seen Dr. Norman (unknown) (no (unknown) (unknown) exam, document (units (unknown) date) abnormal unknown) cardiopulmonary process but nothing further noted. (unknown) (no (unknown) (unknown) fatigue but (units (unk nown) date) primarily due to unknown) worsening severe midline low back pain. admits that (unknown) (no (unknown) (unknown) fibrillation with (units (unknown) date) RVR, ventricular unknown) tachycardia, osteoporosis and continued (unknown) (no (unknown) (unknown) finasteride 5 mg (units (unknown) date) tablet 5 mg PO unknown) DAILY 10/24/22 10/24/22 History (unknown) (no (unknown) (unknown) for labs (units (unkno wn) date) diagnostics or EKG unknown) in system. (unknown) (no (unknown) (unknown) for multiple (units (u nknown) date) falls and gait unknown) instability, and dietary consult for BMI 22.8. (unknown) (no (unknown) (unknown) frequent falls . (units (unknown) date) These factors unknown) increase the difficulty and complexity of (unknown) (no (unknown) (unknown) ground level fall (units (unknown) date) September 2022, at unknown) another facility prior presented to ED for (unknown) (no (unknown) (unknown) ground level fall (units (unknown) date) September of 2022. unknown) Presented increasing shortness of breath, (unknown) (no (unknown) (unknown) his ability to (units (unknown) date) function home, unknown) safety, and manage ADLs. This patient requires (unknown) (no (unknown) (unknown) illness/chronic (units (unknown) date) illness. This unknown) increases the difficulty in complexity of medical (unknown) (no (unknown) (unknown) imaging at this (units (unknown) date) time. Dr. Altman unknown) consulted does not feel that the patient (unknown) (no (unknown) (unknown) inability to (units (u nknown) date) function at home unknown) due to pain. (unknown) (no (unknown) (unknown) intake and (units (unk nown) date) nutrition. unknown) (unknown) (no (unknown) (unknown) management and (units (unknown) date) increases the unknown) chances poor outcomes such as mortality and (unknown) (no (unknown) (unknown) medical and (units (un known) date) surgical unknown) interventions and increases the chances of poor outcomes (unknown) (no (unknown) (unknown) mg/mL eye drops (units (unknown) date) unknown) (unknown) (no (unknown) (unknown) morbidity as well (units (unknown) date) as impaired wound unknown) healing, and immune suppression. (unknown) (no (unknown) (unknown) multilevel (units (unkn own) date) osteopenic unknown) compression fractures with retropulsed fracture segment at (unknown) (no (unknown) (unknown) multiple lumbar (units (unknown) date) compression unknown) fractures, clavicle fracture, rib fractures due to a (unknown) (no (unknown) (unknown) multiple lumbar (units (unknown) date) compression unknown) fractures, clavicle fracture, rib fractures due to (unknown) (no (unknown) (unknown) negative, COVID (units (unknown) date) negative, initial unknown) EKG in ED AFib with a rate of 136, post (unknown) (no (unknown) (unknown) negative, initial (units (unknown) date) EKG in ED AFib unknown) with a rate of 136, post cardioversion sinus (unknown) (no (unknown) (unknown) negative, (units (unkn own) date) unknown) (unknown) (no (unknown) (unknown) nonobstructing, (units (unknown) date) cholelithiasis, unknown) colonic diverticulosis. Patient was seen (unknown) (no (unknown) (unknown) not feel that the (units (unknown) date) patient requires unknown) surgical intervention, will consult tomorrow. (unknown) (no (unknown) (unknown) omeprazole 20 mg (units (unknown) date) capsule,delayed 20 unknown) mg PO DAILY 10/24/22 10/24/22 History (unknown) (no (unknown) (unknown) ortho regarding (units (unknown) date) multiple unknown) fractures, is scheduled for follow-up on 10/25/2021. (unknown) (no (unknown) (unknown) outpatient (units (unk nown) date) management of. The unknown) patient is at much higher risk for medical and (unknown) (no (unknown) (unknown) pain that is (units (u nknown) date) worse with range unknown) of motion and improves with rest.? He denies any (unknown) (no (unknown) (unknown) patient's will (units (unknown) date) impact his or her unknown) oxygenation, which will likely contribute to. (unknown) (no (unknown) (unknown) possible (units (unkno wn) date) developing ileus, unknown) will improve bowel emptying but no findings on (unknown) (no (unknown) (unknown) potassium 3.8, (units (unknown) date) Mag 1.9, PT 17.4, unknown) INR 1.5, initial troponin negative, COVID (unknown) (no (unknown) (unknown) process but (units (un known) date) nothing further unknown) noted. Patient admitted for AFib with RVR, pacer on (unknown) (no (unknown) (unknown) process but (units (un known) date) nothing further unknown) noted. (unknown) (no (unknown) (unknown) release (units (unkno wn) date) unknown) (unknown) (no (unknown) (unknown) requires surgical (units (unknown) date) intervention, will unknown) consult tomorrow. (unknown) (no (unknown) (unknown) rhythm with sinus (units (unknown) date) arrhythmia rate of unknown) [address] and T-wave changes, no (unknown) (no (unknown) (unknown) rhythm, echo (units (u nknown) date) tomorrow, pain unknown) control for fractures, ortho consult, PT/OT consult (unknown) (no (unknown) (unknown) rhythm. (units (unkno wn) date) unknown) (unknown) (no (unknown) (unknown) rivaroxaban 20 mg (units (unknown) date) tablet (Xarelto) unknown) 20 mg PO QPM 10/24/22 10/24/22 History (unknown) (no (unknown) (unknown) saturation 98% on (units (unknown) date) room air. In ED unknown) patient was in AFib with RVR heart rates 143 (unknown) (no (unknown) (unknown) saturation 98% on (units (unknown) date) room air. In ED unknown) patient was in AFib with RVR heart rates (unknown) (no (unknown) (unknown) saturation 98% on (units (unknown) date) room air. unknown) (unknown) (no (unknown) (unknown) scheduled for (units ( unknown) date) follow-up on unknown) 10/25/2021. Chest x-ray radiology noted was a poor (unknown) (no (unknown) (unknown) severe midline (units (unknown) date) low back pain.? He unknown) had 2 falls, the most recent of which was in (unknown) (no (unknown) (unknown) sinus arrhythmia (units (unknown) date) rate of 88 unknown) nonspecific ST and T-wave changes, no comparison (unknown) (no (unknown) (unknown) steatosis, noted (units (unknown) date) gallstones unknown) nonobstructing, cholelithiasis, colonic (unknown) (no (unknown) (unknown) such as morbidity (units (unknown) date) and mortality, as unknown) well as complications such as. The (unknown) (no (unknown) (unknown) surgical (units (unkno wn) date) complications unknown) because of age, chronic anticoagulation, atrial (unknown) (no (unknown) (unknown) sustained-release (units (unknown) date) unknown) (unknown) (no (unknown) (unknown) syndrome, (units (unkn own) date) ventricular unknown) tachycardia, frequent falls, + for multiple lumbar (unknown) (no (unknown) (unknown) tach 8-10 beat (units (unknown) date) runs. Successfully unknown) cardioverted and continues to be in sinus (unknown) (no (unknown) (unknown) tamsulosin 0.4 mg (units (unknown) date) capsule 0.4 mg PO unknown) BEDTIME 10/24/22 10/24/22 History (unknown) (no (unknown) (unknown) the end of (units (unk nown) date) September and has ? unknown) He denies any numbness, tingling or weakness, (unknown) (no (unknown) (unknown) the majority of (units (unknown) date) his day is consume unknown) with severe pain. (unknown) (no (unknown) (unknown) the majority of (units (unknown) date) his day is unknown) consumed with severe pain. Which is now impacting (unknown) (no (unknown) (unknown) the patient's (units ( unknown) date) current unknown) medications. (unknown) (no (unknown) (unknown) today; this time (units (unknown) date) is exclusive of unknown) procedural time. (unknown) (no (unknown) (unknown) topical ointment (units (unknown) date) unknown) (unknown) (no (unknown) (unknown) triamcinolone (units ( unknown) date) acetonide 0.1 % 1 unknown) applic topical DAILY PRN Dry Skin 10/24/22 (unknown) (no (unknown) (unknown) ventricular (units (un known) date) tachycardia, unknown) osteoporosis, frequent falls, previously seen for (unknown) (no (unknown) (unknown) vitamin B complex (units (unknown) date) (B 1 tab PO DAILY unknown) 10/24/22 10/24/22 History (unknown) (no (unknown) (unknown) worsening (units (unkn own) date) episodes of unknown) shortness of breath and fatigue but primarily due to Result panel 263 (unknown) (no (unknown) (unknown) (no value) (units (unk nown) date) unknown) (unknown) (no (unknown) (unknown) ([place]) (units (unkn own) date) unknown) (unknown) (no (unknown) (unknown) (past 8 hours): (units (unknown) date) unknown) (unknown) (no (unknown) (unknown) - Managed (units (unkn own) date) outpatient Dr. Norman unknown) ortho -scheduled for follow-up on 10/25/2021. (unknown) (no (unknown) (unknown) -10/07/2022 (units (un known) date) advanced imaging unknown) from our facility C-spine and lumbar noting (unknown) (no (unknown) (unknown) -Chest x-ray (units (u nknown) date) radiology noted unknown) was a poor exam, document abnormal cardiopulmonary (unknown) (no (unknown) (unknown) -September 2022: (units (unknown) date) Ground level fall unknown) resulting in multiple pathologic fractures. (unknown) (no (unknown) (unknown) -In ED patient (units (unknown) date) was in AFib with unknown) RVR heart rates 143-130, and 2 episodes of V (unknown) (no (unknown) (unknown) -On admit patient (units (unknown) date) is stable temp unknown) 98.2?, BP 140/80, HR 90 sinus rhythm, RR 15, O2 (unknown) (no (unknown) (unknown) -On admit: CT of (units (unknown) date) chest abdomen unknown) pelvis: Multiple lumbar compression fractures (unknown) (no (unknown) (unknown) -Social (units (unkno wn) date) Determinants of unknown) Health that impact treatment or disposition: age, (unknown) (no (unknown) (unknown) -after arrival on (units (unknown) date) the floor the unknown) patient has demonstrated a couple runs of V (unknown) (no (unknown) (unknown) -as evidence by (units (unknown) date) BMI 22.8 unknown) (unknown) (no (unknown) (unknown) -dietary consult (units (unknown) date) ordered to unknown) evaluate and implement steps to improve caloric (unknown) (no (unknown) (unknown) -initial EKG in ED (units (unknown) date) AFib with a rate unknown) of 136, post cardioversion sinus rhythm with (unknown) (no (unknown) (unknown) -it should be (units ( unknown) date) noted that Dr. mendoza) Brianda interrogated the pacemaker which did not (unknown) (no (unknown) (unknown) -patient's (units (unk nown) date) malnutrition unknown) places them at high risk for medical and surgical (unknown) (no (unknown) (unknown) -potassium 3.8, (units (unknown) date) Mag 1.9, PT 17.4, unknown) INR 1.5, initial troponin negative, COVID (unknown) (no (unknown) (unknown) 10/24/22 10/24/22 (units (unknown) date) 10/24/22 unknown) (unknown) (no (unknown) (unknown) 10/24/22 16:40 (units (unknown) date) unknown) (unknown) (no (unknown) (unknown) 10/24/22 History (units (unknown) date) unknown) (unknown) (no (unknown) (unknown) 10/24/22 (units (unkno wn) date) unknown) (unknown) (no (unknown) (unknown) [id number] (units (unkno wn) date) unknown) (unknown) (no (unknown) (unknown) 1. AFib with RVR, (units (unknown) date) acute on chronic, unknown) on Xarelto, ventricular tachycardia, (unknown) (no (unknown) (unknown) 16:14 10/24/22 (units (unknown) date) unknown) (unknown) (no (unknown) (unknown) 16:40 16:40 16:40 (units (unknown) date) unknown) (unknown) (no (unknown) (unknown) 16:51 10/24/22 (units (unknown) date) unknown) (unknown) (no (unknown) (unknown) 16:52 10/24/22 (units (unknown) date) unknown) (unknown) (no (unknown) (unknown) 16:52 (units (unkno wn) date) unknown) (unknown) (no (unknown) (unknown) 16:55 (units (unkno wn) date) unknown) (unknown) (no (unknown) (unknown) 17:00 10/24/22 (units (unknown) date) unknown) (unknown) (no (unknown) (unknown) 17:00 (units (unkno wn) date) unknown) (unknown) (no (unknown) (unknown) 17:16 10/24/22 (units (unknown) date) unknown) (unknown) (no (unknown) (unknown) 17:20 10/24/22 (units (unknown) date) unknown) (unknown) (no (unknown) (unknown) 17:20 (units (unkno wn) date) unknown) (unknown) (no (unknown) (unknown) 17:30 10/24/22 (units (unknown) date) unknown) (unknown) (no (unknown) (unknown) 17:31 10/24/22 (units (unknown) date) unknown) (unknown) (no (unknown) (unknown) 17:31 (units (unkno wn) date) unknown) (unknown) (no (unknown) (unknown) 17:35 10/24/22 (units (unknown) date) unknown) (unknown) (no (unknown) (unknown) 17:35 (units (unkno wn) date) unknown) (unknown) (no (unknown) (unknown) 17:40 10/24/22 (units (unknown) date) unknown) (unknown) (no (unknown) (unknown) 17:45 10/24/22 (units (unknown) date) unknown) (unknown) (no (unknown) (unknown) 17:51 10/24/22 (units (unknown) date) unknown) (unknown) (no (unknown) (unknown) 17:51 (units (unkno wn) date) unknown) (unknown) (no (unknown) (unknown) 17:55 10/24/22 (units (unknown) date) unknown) (unknown) (no (unknown) (unknown) 17:55 (units (unkno wn) date) unknown) (unknown) (no (unknown) (unknown) 18:00 10/24/22 (units (unknown) date) unknown) (unknown) (no (unknown) (unknown) 18:05 10/24/22 (units (unknown) date) unknown) (unknown) (no (unknown) (unknown) 18:05 (units (unkno wn) date) unknown) (unknown) (no (unknown) (unknown) 18:10 10/24/22 (units (unknown) date) unknown) (unknown) (no (unknown) (unknown) 18:10 (units (unkno wn) date) unknown) (unknown) (no (unknown) (unknown) 18:15 10/24/22 (units (unknown) date) unknown) (unknown) (no (unknown) (unknown) 18:20 10/24/22 (units (unknown) date) unknown) (unknown) (no (unknown) (unknown) 18:20 (units (unkno wn) date) unknown) (unknown) (no (unknown) (unknown) 18:25 10/24/22 (units (unknown) date) unknown) (unknown) (no (unknown) (unknown) 18:25 (units (unkno wn) date) unknown) (unknown) (no (unknown) (unknown) 18:30 10/24/22 (units (unknown) date) unknown) (unknown) (no (unknown) (unknown) 19:00 (units (unkno wn) date) unknown) (unknown) (no (unknown) (unknown) 19:07 10/24/22 (units (unknown) date) unknown) (unknown) (no (unknown) (unknown) 19:10 10/24/22 (units (unknown) date) unknown) (unknown) (no (unknown) (unknown) 19:10 (units (unkno wn) date) unknown) (unknown) (no (unknown) (unknown) 19: 10/24/22 (units (unknown) date) unknown) (unknown) (no (unknown) (unknown) 19:15 (units (unkno wn) date) unknown) (unknown) (no (unknown) (unknown) 19:21 10/24/22 (units (unknown) date) unknown) (unknown) (no (unknown) (unknown) 19:25 10/24/22 (units (unknown) date) unknown) (unknown) (no (unknown) (unknown) 19:25 (units (unkno wn) date) unknown) (unknown) (no (unknown) (unknown) 19:30 10/24/22 (units (unknown) date) unknown) (unknown) (no (unknown) (unknown) 19:30 (units (unkno wn) date) unknown) (unknown) (no (unknown) (unknown) 19:35 10/24/22 (units (unknown) date) unknown) (unknown) (no (unknown) (unknown) 19:40 10/24/22 (units (unknown) date) unknown) (unknown) (no (unknown) (unknown) 19:40 (units (unkno wn) date) unknown) (unknown) (no (unknown) (unknown) 19:45 10/24/22 (units (unknown) date) unknown) (unknown) (no (unknown) (unknown) 19:45 (units (unkno wn) date) unknown) (unknown) (no (unknown) (unknown) 19:50 10/24/22 (units (unknown) date) unknown) (unknown) (no (unknown) (unknown) 19:55 10/24/22 (units (unknown) date) unknown) (unknown) (no (unknown) (unknown) 19:55 (units (unkno wn) date) unknown) (unknown) (no (unknown) (unknown) 2. Unstable gait, (units (unknown) date) frequent GLF unknown) falls, resulting in multiple pathologic (unknown) (no (unknown) (unknown) 20:00 10/24/22 (units (unknown) date) unknown) (unknown) (no (unknown) (unknown) 20:00 (units (unkno wn) date) unknown) (unknown) (no (unknown) (unknown) 20:06 10/24/22 (units (unknown) date) unknown) (unknown) (no (unknown) (unknown) 20:10 10/24/22 (units (unknown) date) unknown) (unknown) (no (unknown) (unknown) 20:10 (units (unkno wn) date) unknown) (unknown) (no (unknown) (unknown) 20:15 10/24/22 (units (unknown) date) unknown) (unknown) (no (unknown) (unknown) 20:15 (units (unkno wn) date) unknown) (unknown) (no (unknown) (unknown) 20:20 10/24/22 (units (unknown) date) unknown) (unknown) (no (unknown) (unknown) 20:30 10/24/22 (units (unknown) date) unknown) (unknown) (no (unknown) (unknown) 20:30 (units (unkno wn) date) unknown) (unknown) (no (unknown) (unknown) 20:45 10/24/22 (units (unknown) date) unknown) (unknown) (no (unknown) (unknown) 20:45 (units (unkno wn) date) unknown) (unknown) (no (unknown) (unknown) 3 through 8 (units (un known) date) right, left medial unknown) clavicle fracture unstable gait frequent falls. (unknown) (no (unknown) (unknown) 3. Malnutrition, (units (unknown) date) mild, acute on unknown) chronic, present on admission (unknown) (no (unknown) (unknown) 30, and 2 (units (unkn own) date) episodes of V-tach unknown) 8 attend be runs. Was successfully cardioverted (unknown) (no (unknown) (unknown) ALT 27 (units (unkno wn) date) unknown) (unknown) (no (unknown) (unknown) ALT (units (unkno wn) date) unknown) (unknown) (no (unknown) (unknown) APTT 36 (units (unkno wn) date) unknown) (unknown) (no (unknown) (unknown) APTT (units (unkno wn) date) unknown) (unknown) (no (unknown) (unknown) AST 32 (units (unkno wn) date) unknown) (unknown) (no (unknown) (unknown) AST (units (unkno wn) date) unknown) (unknown) (no (unknown) (unknown) Age/Sex: 86 / M (units (unknown) date) unknown) (unknown) (no (unknown) (unknown) Albumin 3.7 (units (un known) date) unknown) (unknown) (no (unknown) (unknown) Albumin (units (unkno wn) date) unknown) (unknown) (no (unknown) (unknown) Albumin/Globulin (units (unknown) date) Ratio 0.9 L unknown) (unknown) (no (unknown) (unknown) Albumin/Globulin (units (unknown) date) Ratio unknown) (unknown) (no (unknown) (unknown) Alkaline (units (unkno wn) date) Phosphatase 108 unknown) (unknown) (no (unknown) (unknown) Alkaline (units (unkno wn) date) Phosphatase unknown) (unknown) (no (unknown) (unknown) All 12 point (units (un known) date) systems reviewed unknown) with the patient and are negative except otherwise (unknown) (no (unknown) (unknown) Allergies (units (unkn own) date) unknown) (unknown) (no (unknown) (unknown) Allergy/AdvReac (units (unknown) date) Type Severity unknown) Reaction Status Date / Time (unknown) (no (unknown) (unknown) Assessment + Plan (units (unknown) date) narrative: unknown) (unknown) (no (unknown) (unknown) Assessment + Plan (units (unknown) date) unknown) (unknown) (no (unknown) (unknown) BUN 9 (units (unkno wn) date) unknown) (unknown) (no (unknown) (unknown) BUN (units (unkno wn) date) unknown) (unknown) (no (unknown) (unknown) BUN/Creatinine (units (unknown) date) Ratio 11.3 unknown) (unknown) (no (unknown) (unknown) BUN/Creatinine (units (unknown) date) Ratio unknown) (unknown) (no (unknown) (unknown) Baso # (Auto) 100 (units (unknown) date) unknown) (unknown) (no (unknown) (unknown) Baso # (Auto) (units ( unknown) date) unknown) (unknown) (no (unknown) (unknown) Baso % (Auto) 1.3 (units (unknown) date) unknown) (unknown) (no (unknown) (unknown) Baso % (Auto) (units ( unknown) date) unknown) (unknown) (no (unknown) (unknown) Been Physically (units (unknown) date) Hurt or No unknown) (unknown) (no (unknown) (unknown) Blood Pressure (units (unknown) date) 105/80 unknown) (unknown) (no (unknown) (unknown) Blood Pressure (units (unknown) date) 118/81 unknown) (unknown) (no (unknown) (unknown) Blood Pressure (units (unknown) date) 119/94 H unknown) (unknown) (no (unknown) (unknown) Blood Pressure (units (unknown) date) 120/82 unknown) (unknown) (no (unknown) (unknown) Blood Pressure (units (unknown) date) 121/81 135/82 unknown) (unknown) (no (unknown) (unknown) Blood Pressure (units (unknown) date) 122/83 128/79 unknown) (unknown) (no (unknown) (unknown) Blood Pressure (units (unknown) date) 123/79 121/83 unknown) (unknown) (no (unknown) (unknown) Blood Pressure (units (unknown) date) 125/81 127/75 unknown) (unknown) (no (unknown) (unknown) Blood Pressure (units (unknown) date) 125/90 unknown) (unknown) (no (unknown) (unknown) Blood Pressure (units (unknown) date) 129/84 117/83 unknown) (unknown) (no (unknown) (unknown) Blood Pressure (units (unknown) date) 131/75 unknown) (unknown) (no (unknown) (unknown) Blood Pressure (units (unknown) date) 131/85 153/82 H unknown) (unknown) (no (unknown) (unknown) Blood Pressure (units (unknown) date) 132/84 136/88 unknown) (unknown) (no (unknown) (unknown) Blood Pressure (units (unknown) date) 134/102 H unknown) (unknown) (no (unknown) (unknown) Blood Pressure (units (unknown) date) 134/82 unknown) (unknown) (no (unknown) (unknown) Blood Pressure (units (unknown) date) 134/87 unknown) (unknown) (no (unknown) (unknown) Blood Pressure (units (unknown) date) 136/92 H unknown) (unknown) (no (unknown) (unknown) Blood Pressure (units (unknown) date) 140/80 unknown) (unknown) (no (unknown) (unknown) Blood Pressure (units (unknown) date) 140/92 H unknown) (unknown) (no (unknown) (unknown) Blood Pressure (units (unknown) date) 141/93 H 137/96 H unknown) (unknown) (no (unknown) (unknown) Blood Pressure (units (unknown) date) 143/81 H 128/82 unknown) (unknown) (no (unknown) (unknown) Blood Pressure (units (unknown) date) 148/92 H unknown) (unknown) (no (unknown) (unknown) Blood Pressure (units (unknown) date) 148/93 H unknown) (unknown) (no (unknown) (unknown) Blood Pressure (units (unknown) date) 150/90 H 151/97 H unknown) (unknown) (no (unknown) (unknown) Blood Pressure (units (unknown) date) 150/97 H 152/86 H unknown) (unknown) (no (unknown) (unknown) CK-MB (CK-2) Rel (units (unknown) date) Index TNP unknown) (unknown) (no (unknown) (unknown) CK-MB (CK-2) Rel (units (unknown) date) Index unknown) (unknown) (no (unknown) (unknown) CK-MB (CK-2) TNP (units (unknown) date) unknown) (unknown) (no (unknown) (unknown) CK-MB (CK-2) (units (u nknown) date) unknown) (unknown) (no (unknown) (unknown) COVID PCR: (units (unk nown) date) Negative unknown) (unknown) (no (unknown) (unknown) Calcium 9.0 (units (un known) date) unknown) (unknown) (no (unknown) (unknown) Calcium (units (unkno wn) date) unknown) (unknown) (no (unknown) (unknown) Carbon Dioxide 23 (units (unknown) date) unknown) (unknown) (no (unknown) (unknown) Carbon Dioxide (units (unknown) date) unknown) (unknown) (no (unknown) (unknown) Chest x-ray (units (un known) date) radiology noted unknown) was a poor exam, document abnormal cardiopulmonary (unknown) (no (unknown) (unknown) Chief complaint: (units (unknown) date) Back pain unknown) (unknown) (no (unknown) (unknown) Chloride 106 (units (u nknown) date) unknown) (unknown) (no (unknown) (unknown) Chloride (units (unkno wn) date) unknown) (unknown) (no (unknown) (unknown) Code status: Full (units (unknown) date) unknown) (unknown) (no (unknown) (unknown) Complex-Vitamin (units (unknown) date) B12 tablet) unknown) (unknown) (no (unknown) (unknown) Creatinine 0.80 (units (unknown) date) unknown) (unknown) (no (unknown) (unknown) Creatinine (units (unk nown) date) unknown) (unknown) (no (unknown) (unknown) Critical Care (units ( unknown) date) time: unknown) (unknown) (no (unknown) (unknown) : 1935 (units (unknown) date) Acct:[id number] unknown) (unknown) (no (unknown) (unknown) DVT/VTE (units (unkno wn) date) prophylaxis: unknown) Patient on Xarelto, SCDs only (unknown) (no (unknown) (unknown) Date Patient (units (u nknown) date) Seen: 10/24/22 unknown) (unknown) (no (unknown) (unknown) Date of Service: (units (unknown) date) 10/24/22 unknown) (unknown) (no (unknown) (unknown) Disposition: (units (u nknown) date) Patient admitted unknown) to acute care for AFib with RVR, now in sinus (unknown) (no (unknown) (unknown) Dr. Villar in the (units (unknown) date) ED noted a unknown) possible developing ileus, will improve bowel (unknown) (no (unknown) (unknown) Environment (units (un known) date) unknown) (unknown) (no (unknown) (unknown) Eos # (Auto) 200 (units (unknown) date) unknown) (unknown) (no (unknown) (unknown) Eos # (Auto) (units (u nknown) date) unknown) (unknown) (no (unknown) (unknown) Eos % (Auto) 2.1 (units (unknown) date) unknown) (unknown) (no (unknown) (unknown) Eos % (Auto) (units (u nknown) date) unknown) (unknown) (no (unknown) (unknown) Estimated GFR > (units (unknown) date) 60 unknown) (unknown) (no (unknown) (unknown) Estimated GFR (units ( unknown) date) unknown) (unknown) (no (unknown) (unknown) Exam (units (unkno wn) date) unknown) (unknown) (no (unknown) (unknown) Family + Social (units (unknown) date) History unknown) (unknown) (no (unknown) (unknown) Feels Safe in (units ( unknown) date) Current Yes unknown) (unknown) (no (unknown) (unknown) Globulin 4.2 H (units (unknown) date) unknown) (unknown) (no (unknown) (unknown) Globulin (units (unkno wn) date) unknown) (unknown) (no (unknown) (unknown) Glucose 89 (units (unk nown) date) unknown) (unknown) (no (unknown) (unknown) Glucose (units (unkno wn) date) unknown) (unknown) (no (unknown) (unknown) Hct 45.9 (units (unkno wn) date) unknown) (unknown) (no (unknown) (unknown) Hct (units (unkno wn) date) unknown) (unknown) (no (unknown) (unknown) Hgb 15.6 (units (unkno wn) date) unknown) (unknown) (no (unknown) (unknown) Hgb (units (unkno wn) date) unknown) (unknown) (no (unknown) (unknown) History + (units (unkn own) date) Physical Report unknown) (unknown) (no (unknown) (unknown) History of (units (unk nown) date) Present Illness unknown) (unknown) (no (unknown) (unknown) History (units (unkno wn) date) unknown) (unknown) (no (unknown) (unknown) Home Medications (units (unknown) date) and Allergies unknown) (unknown) (no (unknown) (unknown) Home Medications (units (unknown) date) unknown) (unknown) (no (unknown) (unknown) I have personally (units (unknown) date) reviewed patient's unknown) chart notes from PCP, specialists, (unknown) (no (unknown) (unknown) I have utilized (units (unknown) date) all available unknown) immediate resources to obtain, update, or review (unknown) (no (unknown) (unknown) I spent a total (units (unknown) date) of [] minutes of unknown) critical care time on this patient's care (unknown) (no (unknown) (unknown) INR 1.5 H (units (unkn own) date) unknown) (unknown) (no (unknown) (unknown) INR (units (unkno wn) date) unknown) (unknown) (no (unknown) (unknown) [facility] (units (unknown) date) [address] unknown) [place] [address] (unknown) (no (unknown) (unknown) Nicolas Torrez (units (unknown) date) 86-year-old male unknown) slightly poor historian with history of AFib on (unknown) (no (unknown) (unknown) 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 (unknown) (no (unknown) (unknown) L1-L4, hepatic (units (unknown) date) steatosis, noted unknown) gallstones nonobstructing, cholelithiasis, (unknown) (no (unknown) (unknown) Laboratory (units (unk nown) date) Results - last 24 unknown) hr (unknown) (no (unknown) (unknown) Labs (units (unkno wn) date) unknown) (unknown) (no (unknown) (unknown) Labs: (units (unkno wn) date) unknown) (unknown) (no (unknown) (unknown) Lipase 169 (units (unk nown) date) unknown) (unknown) (no (unknown) (unknown) Lipase (units (unkno wn) date) unknown) (unknown) (no (unknown) (unknown) Lymph # (Auto) (units (unknown) date) 2300 unknown) (unknown) (no (unknown) (unknown) Lymph # (Auto) (units (unknown) date) unknown) (unknown) (no (unknown) (unknown) Lymph % (Auto) (units (unknown) date) 22.0 L unknown) (unknown) (no (unknown) (unknown) Lymph % (Auto) (units (unknown) date) unknown) (unknown) (no (unknown) (unknown) MCH 33.9 (units (unkno wn) date) unknown) (unknown) (no (unknown) (unknown) MCH (units (unkno wn) date) unknown) (unknown) (no (unknown) (unknown) MCHC 34.1 (units (unkn own) date) unknown) (unknown) (no (unknown) (unknown) MCHC (units (unkno wn) date) unknown) (unknown) (no (unknown) (unknown) MCV 99.4 (units (unkno wn) date) unknown) (unknown) (no (unknown) (unknown) MCV (units (unkno wn) date) unknown) (unknown) (no (unknown) (unknown) Magnesium 1.9 (units ( unknown) date) unknown) (unknown) (no (unknown) (unknown) Magnesium (units (unkn own) date) unknown) (unknown) (no (unknown) (unknown) Medication (units (unk nown) date) Instructions unknown) Recorded Confirmed Type (unknown) (no (unknown) (unknown) Meds (units (unkno wn) date) unknown) (unknown) (no (unknown) (unknown) Brule # (Auto) (units ( unknown) date) 1100 H unknown) (unknown) (no (unknown) (unknown) Brule # (Auto) (units ( unknown) date) unknown) (unknown) (no (unknown) (unknown) Brule % (Auto) (units ( unknown) date) 11.0 unknown) (unknown) (no (unknown) (unknown) Brule % (Auto) (units ( unknown) date) unknown) (unknown) (no (unknown) (unknown) Multiple lumbar (units (unknown) date) compression unknown) fractures L1-L4, hepatic steatosis, noted gallstones (unknown) (no (unknown) (unknown) Narrative: (units (unk nown) date) unknown) (unknown) (no (unknown) (unknown) Neut # (Auto) (units ( unknown) date) 6500 unknown) (unknown) (no (unknown) (unknown) Neut # (Auto) (units ( unknown) date) unknown) (unknown) (no (unknown) (unknown) Neut % (Auto) (units ( unknown) date) 63.6 unknown) (unknown) (no (unknown) (unknown) Neut % (Auto) (units ( unknown) date) unknown) (unknown) (no (unknown) (unknown) No Known Drug (units ( unknown) date) Allergies Allergy unknown) Verified 10/24/22 21:16 (unknown) (no (unknown) (unknown) Objective (units (unkn own) date) unknown) (unknown) (no (unknown) (unknown) On admit patient (units (unknown) date) is stable temp unknown) 98.2?, BP 140/80, HR 90 sinus rhythm, RR 15, O2 (unknown) (no (unknown) (unknown) Oxygen Delivery (units (unknown) date) Method Room Air unknown) (unknown) (no (unknown) (unknown) Oxygen Delivery (units (unknown) date) Method unknown) (unknown) (no (unknown) (unknown) PT 17.4 H (units (unkn own) date) unknown) (unknown) (no (unknown) (unknown) PT (units (unkno wn) date) unknown) (unknown) (no (unknown) (unknown) Patient History (units (unknown) date) unknown) (unknown) (no (unknown) (unknown) Patient: (units (unkno wn) date) Nicolas Neely unknown) MR#: [id number] (unknown) (no (unknown) (unknown) Plt Count 218 (units ( unknown) date) unknown) (unknown) (no (unknown) (unknown) Plt Count (units (unkn own) date) unknown) (unknown) (no (unknown) (unknown) Potassium 3.8 (units ( unknown) date) unknown) (unknown) (no (unknown) (unknown) Potassium (units (unkn own) date) unknown) (unknown) (no (unknown) (unknown) Provider: (units (unkn own) date) Ana Maria Ortega unknown) 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 (unknown) (no (unknown) (unknown) Pulse Oximetry 94 (units (unknown) date) unknown) (unknown) (no (unknown) (unknown) Pulse Oximetry 95 (units (unknown) date) 95 unknown) (unknown) (no (unknown) (unknown) Pulse Oximetry 95 (units (unknown) date) 96 unknown) (unknown) (no (unknown) (unknown) Pulse Oximetry 95 (units (unknown) date) unknown) (unknown) (no (unknown) (unknown) Pulse Oximetry 96 (units (unknown) date) 95 unknown) (unknown) (no (unknown) (unknown) Pulse Oximetry 96 (units (unknown) date) 97 unknown) (unknown) (no (unknown) (unknown) Pulse Oximetry 96 (units (unknown) date) unknown) (unknown) (no (unknown) (unknown) Pulse Oximetry 97 (units (unknown) date) 97 unknown) (unknown) (no (unknown) (unknown) Pulse Oximetry 98 (units (unknown) date) 98 unknown) (unknown) (no (unknown) (unknown) Pulse Oximetry 98 (units (unknown) date) 99 unknown) (unknown) (no (unknown) (unknown) Pulse Oximetry 98 (units (unknown) date) unknown) (unknown) (no (unknown) (unknown) Pulse Oximetry 99 (units (unknown) date) 98 unknown) (unknown) (no (unknown) (unknown) Pulse Oximetry 99 (units (unknown) date) unknown) (unknown) (no (unknown) (unknown) Pulse Rate 133 H (units (unknown) date) unknown) (unknown) (no (unknown) (unknown) Pulse Rate 135 H (units (unknown) date) 118 H unknown) (unknown) (no (unknown) (unknown) Pulse Rate 135 H (units (unknown) date) 130 H unknown) (unknown) (no (unknown) (unknown) Pulse Rate 136 H (units (unknown) date) 131 H unknown) (unknown) (no (unknown) (unknown) Pulse Rate 138 H (units (unknown) date) 140 H unknown) (unknown) (no (unknown) (unknown) Pulse Rate 143 H (units (unknown) date) 136 H unknown) (unknown) (no (unknown) (unknown) Pulse Rate 85 86 (units (unknown) date) unknown) (unknown) (no (unknown) (unknown) Pulse Rate 85 (units ( unknown) date) unknown) (unknown) (no (unknown) (unknown) Pulse Rate 86 (units ( unknown) date) unknown) (unknown) (no (unknown) (unknown) Pulse Rate 87 84 (units (unknown) date) unknown) (unknown) (no (unknown) (unknown) Pulse Rate 87 89 (units (unknown) date) unknown) (unknown) (no (unknown) (unknown) Pulse Rate 88 89 (units (unknown) date) unknown) (unknown) (no (unknown) (unknown) Pulse Rate 90 85 (units (unknown) date) unknown) (unknown) (no (unknown) (unknown) Pulse Rate 90 91 (units (unknown) date) H unknown) (unknown) (no (unknown) (unknown) Pulse Rate 90 (units ( unknown) date) unknown) (unknown) (no (unknown) (unknown) Pulse Rate 91 H (units (unknown) date) 103 H unknown) (unknown) (no (unknown) (unknown) Pulse Rate 91 H (units (unknown) date) 90 unknown) (unknown) (no (unknown) (unknown) Pulse Rate 91 H (units (unknown) date) unknown) (unknown) (no (unknown) (unknown) Pulse Rate 92 H (units (unknown) date) 90 unknown) (unknown) (no (unknown) (unknown) Pulse Rate 92 H (units (unknown) date) unknown) (unknown) (no (unknown) (unknown) Pulse Rate 93 H (units (unknown) date) unknown) (unknown) (no (unknown) (unknown) RBC 4.62 (units (unkno wn) date) unknown) (unknown) (no (unknown) (unknown) RBC (units (unkno wn) date) unknown) (unknown) (no (unknown) (unknown) RDW 14.5 (units (unkno wn) date) unknown) (unknown) (no (unknown) (unknown) RDW (units (unkno wn) date) unknown) (unknown) (no (unknown) (unknown) Respiratory Rate (units (unknown) date) 11 L 17 unknown) (unknown) (no (unknown) (unknown) Respiratory Rate (units (unknown) date) 11 L unknown) (unknown) (no (unknown) (unknown) Respiratory Rate (units (unknown) date) 13 10 L unknown) (unknown) (no (unknown) (unknown) Respiratory Rate (units (unknown) date) 14 14 unknown) (unknown) (no (unknown) (unknown) Respiratory Rate (units (unknown) date) 14 21 unknown) (unknown) (no (unknown) (unknown) Respiratory Rate (units (unknown) date) 14 unknown) (unknown) (no (unknown) (unknown) Respiratory Rate (units (unknown) date) 15 13 unknown) (unknown) (no (unknown) (unknown) Respiratory Rate (units (unknown) date) 15 15 unknown) (unknown) (no (unknown) (unknown) Respiratory Rate (units (unknown) date) 15 16 unknown) (unknown) (no (unknown) (unknown) Respiratory Rate (units (unknown) date) 15 22 unknown) (unknown) (no (unknown) (unknown) Respiratory Rate (units (unknown) date) 15 unknown) (unknown) (no (unknown) (unknown) Respiratory Rate (units (unknown) date) 16 17 unknown) (unknown) (no (unknown) (unknown) Respiratory Rate (units (unknown) date) 16 unknown) (unknown) (no (unknown) (unknown) Respiratory Rate (units (unknown) date) 17 15 unknown) (unknown) (no (unknown) (unknown) Respiratory Rate (units (unknown) date) 17 unknown) (unknown) (no (unknown) (unknown) Respiratory Rate (units (unknown) date) 18 12 unknown) (unknown) (no (unknown) (unknown) Respiratory Rate (units (unknown) date) 18 unknown) (unknown) (no (unknown) (unknown) Respiratory Rate (units (unknown) date) 19 22 unknown) (unknown) (no (unknown) (unknown) Respiratory Rate (units (unknown) date) 20 13 unknown) (unknown) (no (unknown) (unknown) Respiratory Rate (units (unknown) date) 20 unknown) (unknown) (no (unknown) (unknown) Respiratory Rate (units (unknown) date) 21 11 L unknown) (unknown) (no (unknown) (unknown) Respiratory Rate (units (unknown) date) 23 15 unknown) (unknown) (no (unknown) (unknown) Result Diagrams: (units (unknown) date) unknown) (unknown) (no (unknown) (unknown) Review of Systems (units (unknown) date) unknown) (unknown) (no (unknown) (unknown) SARS-CoV-2 (PCR) (units (unknown) date) Negative unknown) (unknown) (no (unknown) (unknown) SARS-CoV-2 (PCR) (units (unknown) date) unknown) (unknown) (no (unknown) (unknown) Safety + (units (unkno wn) date) Behavioral: unknown) (unknown) (no (unknown) (unknown) Signed By: (units (unk nown) date) unknown) (unknown) (no (unknown) (unknown) Smoking Status (units (unknown) date) Never smoker unknown) (unknown) (no (unknown) (unknown) Sodium 139 (units (unk nown) date) unknown) (unknown) (no (unknown) (unknown) Sodium (units (unkno wn) date) unknown) (unknown) (no (unknown) (unknown) Surrogate (units (unkn own) date) decision maker: unknown) Son, patient also has a full-time caregiver [place] (unknown) (no (unknown) (unknown) Temperature 98.2 (units (unknown) date) F unknown) (unknown) (no (unknown) (unknown) Temperature (units (un known) date) unknown) (unknown) (no (unknown) (unknown) Threatened By a (units (unknown) date) Person unknown) (unknown) (no (unknown) (unknown) Time Patient (units (u nknown) date) Seen: 22:04 unknown) (unknown) (no (unknown) (unknown) Time Spent With (units (unknown) date) Patient unknown) (unknown) (no (unknown) (unknown) Tobacco + (units (unkn own) date) Substance use: unknown) (unknown) (no (unknown) (unknown) Total Bilirubin (units (unknown) date) 1.1 unknown) (unknown) (no (unknown) (unknown) Total Bilirubin (units (unknown) date) unknown) (unknown) (no (unknown) (unknown) Total Creatine (units (unknown) date) Kinase < 20 L unknown) (unknown) (no (unknown) (unknown) Total Creatine (units (unknown) date) Kinase unknown) (unknown) (no (unknown) (unknown) Total Protein 7.9 (units (unknown) date) unknown) (unknown) (no (unknown) (unknown) Total Protein (units ( unknown) date) unknown) (unknown) (no (unknown) (unknown) Troponin I < (units (u nknown) date) 0.012 unknown) (unknown) (no (unknown) (unknown) Troponin I (units (unk nown) date) unknown) (unknown) (no (unknown) (unknown) Vital Signs (units (un known) date) unknown) (unknown) (no (unknown) (unknown) WBC 10.3 (units (unkno wn) date) unknown) (unknown) (no (unknown) (unknown) WBC (units (unkno wn) date) unknown) (unknown) (no (unknown) (unknown) Xarelto for many (units (unknown) date) years, pacemaker unknown) placement for sick sinus syndrome, history of (unknown) (no (unknown) (unknown) Xarelto, multiple (units (unknown) date) healing lumbar unknown) compression fractures, bilateral rib fractures (unknown) (no (unknown) (unknown) [Embedded Image (units (unknown) date) Not Available] unknown) (unknown) (no (unknown) (unknown) acute care (units (unk nown) date) inpatient hospital unknown) management for AFib RVR on Xarelto, sick sinus (unknown) (no (unknown) (unknown) alcohol intake (units (unknown) date) frequency unknown) holiday/special occasion (unknown) (no (unknown) (unknown) and continues to (units (unknown) date) be in sinus unknown) rhythm. No WBC, mono 11,000. Stable electrolytes (unknown) (no (unknown) (unknown) bimatoprost 0.01 (units (unknown) date) % eye drops 1 drp unknown) ophthalmic (eye) DAILY 10/24/22 10/24/22 (unknown) (no (unknown) (unknown) bupropion HCl 150 (units (unknown) date) mg tablet,12 hr unknown) 150 mg PO BID 10/24/22 10/24/22 History (unknown) (no (unknown) (unknown) capsule,extended (units (unknown) date) release 24 hr unknown) (unknown) (no (unknown) (unknown) chest pain but (units (unknown) date) does state that he unknown) is frequently short of breath but admits that (unknown) (no (unknown) (unknown) clavicle (units (unkno wn) date) fracture. unknown) (unknown) (no (unknown) (unknown) colonic (units (unkno wn) date) diverticulosis. unknown) (unknown) (no (unknown) (unknown) comparison for (units (unknown) date) labs diagnostics unknown) or EKG in system. CT of chest abdomen pelvis: (unknown) (no (unknown) (unknown) complications (units ( unknown) date) because of the unknown) severe malnutrition in relation to acute (unknown) (no (unknown) (unknown) compression (units (unk nown) date) fractures, unknown) clavicle fracture, bilateral rib fractures, after failing (unknown) (no (unknown) (unknown) compression (units (un known) date) fractures, lumbar, unknown) clavicle-left, ribs-bilaterally, with (unknown) (no (unknown) (unknown) denies any loss (units (unknown) date) of control of unknown) bowel or bladder.? He states he has significant (unknown) (no (unknown) (unknown) diagnostic (units (unk nown) date) imaging, and unknown) laboratory results. (unknown) (no (unknown) (unknown) diltiazem HCl 240 (units (unknown) date) mg 240 mg PO DAILY unknown) 10/24/22 10/24/22 History (unknown) (no (unknown) (unknown) documented. (units (un known) date) unknown) (unknown) (no (unknown) (unknown) dorzolamide 22.3 (units (unknown) date) mg-timolol 6.8 1 unknown) drp ophthalmic (eye) DAILY 10/24/22 10/24/22 (unknown) (no (unknown) (unknown) emptying but no (units (unknown) date) findings on unknown) imaging at this time. Dr. Altman consulted does (unknown) (no (unknown) (unknown) evaluated in (units (u nknown) date) imaging completed unknown) prior at another facility, and has seen Dr. oNrman (unknown) (no (unknown) (unknown) evaluation of (units ( unknown) date) pacemaker unknown) function. (unknown) (no (unknown) (unknown) fatigue but (units (unk nown) date) primarily due to unknown) worsening severe midline low back pain. admits that (unknown) (no (unknown) (unknown) fibrillation with (units (unknown) date) RVR, ventricular unknown) tachycardia, osteoporosis and continued (unknown) (no (unknown) (unknown) finasteride 5 mg (units (unknown) date) tablet 5 mg PO unknown) DAILY 10/24/22 10/24/22 History (unknown) (no (unknown) (unknown) for labs (units (unkno wn) date) diagnostics or EKG unknown) in system. (unknown) (no (unknown) (unknown) for multiple (units (u nknown) date) falls and gait unknown) instability, and dietary consult for BMI 22.8. (unknown) (no (unknown) (unknown) frequent falls . (units (unknown) date) These factors unknown) increase the difficulty and complexity of (unknown) (no (unknown) (unknown) ground level fall (units (unknown) date) September 2022, at unknown) another facility prior presented to ED for (unknown) (no (unknown) (unknown) ground level fall (units (unknown) date) September of 2022. unknown) Presented increasing shortness of breath, (unknown) (no (unknown) (unknown) his ability to (units (unknown) date) function home, unknown) safety, and manage ADLs. This patient requires (unknown) (no (unknown) (unknown) his or her (units (unk nown) date) oxygenation, which unknown) will likely contribute to increased risk of (unknown) (no (unknown) (unknown) illness/chronic (units (unknown) date) illness. This unknown) increases the difficulty in complexity of medical (unknown) (no (unknown) (unknown) inability to (units (u nknown) date) function at home unknown) due to pain. (unknown) (no (unknown) (unknown) intake and (units (unk nown) date) nutrition. unknown) (unknown) (no (unknown) (unknown) intermittent, (units ( unknown) date) acute on chronic, unknown) present on admission- resolved (unknown) (no (unknown) (unknown) management and (units (unknown) date) increases the unknown) chances poor outcomes such as mortality and (unknown) (no (unknown) (unknown) medical and (units (un known) date) surgical unknown) interventions and increases the chances of poor outcomes (unknown) (no (unknown) (unknown) mg/mL eye drops (units (unknown) date) unknown) (unknown) (no (unknown) (unknown) morbidity as well (units (unknown) date) as impaired wound unknown) healing, and immune suppression. (unknown) (no (unknown) (unknown) multilevel (units (unkn own) date) osteopenic unknown) compression fractures with retropulsed fracture segment at (unknown) (no (unknown) (unknown) multiple lumbar (units (unknown) date) compression unknown) fractures, clavicle fracture, rib fractures due to a (unknown) (no (unknown) (unknown) multiple lumbar (units (unknown) date) compression unknown) fractures, clavicle fracture, rib fractures due to (unknown) (no (unknown) (unknown) negative, initial (units (unknown) date) EKG in ED AFib unknown) with a rate of 136, post cardioversion sinus (unknown) (no (unknown) (unknown) negative, (units (unkn own) date) unknown) (unknown) (no (unknown) (unknown) nonobstructing, (units (unknown) date) cholelithiasis, unknown) colonic diverticulosis. Patient was seen (unknown) (no (unknown) (unknown) not feel that the (units (unknown) date) patient requires unknown) surgical intervention, will consult tomorrow. (unknown) (no (unknown) (unknown) omeprazole 20 mg (units (unknown) date) capsule,delayed 20 unknown) mg PO DAILY 10/24/22 10/24/22 History (unknown) (no (unknown) (unknown) ortho regarding (units (unknown) date) multiple unknown) fractures, is scheduled for follow-up on 10/25/2021. (unknown) (no (unknown) (unknown) osteoporosis, (units ( unknown) date) acute on chronic, unknown) present on admission (unknown) (no (unknown) (unknown) outpatient (units (unk nown) date) management of. The unknown) patient is at much higher risk for medical and (unknown) (no (unknown) (unknown) pain that is (units (u nknown) date) worse with range unknown) of motion and improves with rest.? He denies any (unknown) (no (unknown) (unknown) patient's atrial (units (unknown) date) fibrillation with unknown) RVR, and ventricular tachycardia, bilateral (unknown) (no (unknown) (unknown) pneumonia. (units (unk nown) date) Patient admitted unknown) for AFib with RVR, pacer on Xarelto, ventricular (unknown) (no (unknown) (unknown) potassium 3.8, (units (unknown) date) Mag 1.9, PT 17.4, unknown) INR 1.5, initial troponin negative, COVID (unknown) (no (unknown) (unknown) process but (units (un known) date) nothing further unknown) noted. Patient admitted for AFib with RVR, pacer on (unknown) (no (unknown) (unknown) process but (units (un known) date) nothing further unknown) noted. (unknown) (no (unknown) (unknown) register or (units (unk nown) date) acknowledge the unknown) atrial fibrillation with RVR, the runs of V-tach nor (unknown) (no (unknown) (unknown) release (units (unkno wn) date) unknown) (unknown) (no (unknown) (unknown) rhythm with sinus (units (unknown) date) arrhythmia rate of unknown) [address] and T-wave changes, no (unknown) (no (unknown) (unknown) rhythm, echo (units (u nknown) date) tomorrow, pain unknown) control for fractures, ortho consult, PT/OT consult (unknown) (no (unknown) (unknown) rhythm. (units (unkno wn) date) unknown) (unknown) (no (unknown) (unknown) rib fractures (units ( unknown) date) left clavicle unknown) fracture, as well as mild malnutrition will impact (unknown) (no (unknown) (unknown) rivaroxaban 20 mg (units (unknown) date) tablet (Xarelto) unknown) 20 mg PO QPM 10/24/22 10/24/22 History (unknown) (no (unknown) (unknown) saturation 98% on (units (unknown) date) room air. In ED unknown) patient was in AFib with RVR heart rates 143 (unknown) (no (unknown) (unknown) saturation 98% on (units (unknown) date) room air. unknown) (unknown) (no (unknown) (unknown) severe midline (units (unknown) date) low back pain.? He unknown) had 2 falls, the most recent of which was in (unknown) (no (unknown) (unknown) sinus arrhythmia (units (unknown) date) rate of 88 unknown) nonspecific ST and T-wave changes, no comparison (unknown) (no (unknown) (unknown) such as morbidity (units (unknown) date) and mortality, as unknown) well as complications such as. The (unknown) (no (unknown) (unknown) surgical (units (unkno wn) date) complications unknown) because of age, chronic anticoagulation, atrial (unknown) (no (unknown) (unknown) sustained-release (units (unknown) date) unknown) (unknown) (no (unknown) (unknown) syndrome, (units (unkn own) date) ventricular unknown) tachycardia, frequent falls, + for multiple lumbar (unknown) (no (unknown) (unknown) tach 8-10 beat (units (unknown) date) runs. Successfully unknown) cardioverted and continues to be in sinus (unknown) (no (unknown) (unknown) tach, was (units (unkn own) date) asymptomatic, and unknown) pacer worked appropriately and resolved to sinus. (unknown) (no (unknown) (unknown) tachycardia (units (un known) date) multiple healing unknown) lumbar compression fractures, and left medial (unknown) (no (unknown) (unknown) tamsulosin 0.4 mg (units (unknown) date) capsule 0.4 mg PO unknown) BEDTIME 10/24/22 10/24/22 History (unknown) (no (unknown) (unknown) the (units (unkno wn) date) cardioversion-priyank unknown) ent should follow-up with Cardiology upon discharge for (unknown) (no (unknown) (unknown) the end of (units (unk nown) date) September and has ? unknown) He denies any numbness, tingling or weakness, (unknown) (no (unknown) (unknown) the majority of (units (unknown) date) his day is consume unknown) with severe pain. (unknown) (no (unknown) (unknown) the majority of (units (unknown) date) his day is unknown) consumed with severe pain. Which is now impacting (unknown) (no (unknown) (unknown) the patient's (units ( unknown) date) current unknown) medications. (unknown) (no (unknown) (unknown) today; this time (units (unknown) date) is exclusive of unknown) procedural time. (unknown) (no (unknown) (unknown) topical ointment (units (unknown) date) unknown) (unknown) (no (unknown) (unknown) triamcinolone (units ( unknown) date) acetonide 0.1 % 1 unknown) applic topical DAILY PRN Dry Skin 10/24/22 (unknown) (no (unknown) (unknown) ventricular (units (un known) date) tachycardia, unknown) osteoporosis, frequent falls, previously seen for (unknown) (no (unknown) (unknown) vitamin B complex (units (unknown) date) (B 1 tab PO DAILY unknown) 10/24/22 10/24/22 History (unknown) (no (unknown) (unknown) worsening (units (unkn own) date) episodes of unknown) shortness of breath and fatigue but primarily due to Result panel 264 (unknown) (no date) (unknown) (unknown) 1.0 % (unkn own) (unknown) (no date) (unknown) (unknown) 1.8 % (unkn own) (unknown) (no date) (unknown) (unknown) 100 /ul (unkn own) (unknown) (no date) (unknown) (unknown) 11.9 % (unkn own) (unknown) (no date) (unknown) (unknown) 1100 /ul (unkn own) (unknown) (no date) (unknown) (unknown) 13.6 g/dl (unkn own) (unknown) (no date) (unknown) (unknown) 14.4 % (unkn own) (unknown) (no date) (unknown) (unknown) 1600 /ul (unkn own) (unknown) (no date) (unknown) (unknown) 17.8 % (unkn own) (unknown) (no date) (unknown) (unknown) 191 x10 3/ul (unkn own) (unknown) (no date) (unknown) (unknown) 200 /ul (unkn own) (unknown) (no date) (unknown) (unknown) 3.99 x10 6/ul (unkn own) (unknown) (no date) (unknown) (unknown) 34.0 pg (unkn own) (unknown) (no date) (unknown) (unknown) 34.6 % (unkn own) (unknown) (no date) (unknown) (unknown) 39.2 % (unkn own) (unknown) (no date) (unknown) (unknown) 6100 /ul (unkn own) (unknown) (no date) (unknown) (unknown) 67.5 % (unkn own) (unknown) (no date) (unknown) (unknown) 9.0 x10 3/ul (unkn own) (unknown) (no date) (unknown) (unknown) 98.1 fl (unkn own) Result panel 265 (unknown) (no date) (unknown) (unknown) 1.5 (units unknown) (unknown) (unknown) (no date) (unknown) (unknown) 17.7 seconds (unkn own) Result panel 266 (unknown) (no (unknown) (unknown) (no value) (units (unk nown) date) unknown) (unknown) (no (unknown) (unknown) ([place]) (units (unkn own) date) unknown) (unknown) (no (unknown) (unknown) (past 8 hours): (units (unknown) date) unknown) (unknown) (no (unknown) (unknown) - Managed (units (unkn own) date) outpatient Dr. Norman unknown) ortho -scheduled for follow-up on 10/25/2021. (unknown) (no (unknown) (unknown) -10/07/2022 (units (un known) date) advanced imaging unknown) from our facility C-spine and lumbar noting (unknown) (no (unknown) (unknown) -Chest x-ray (units (u nknown) date) radiology noted unknown) was a poor exam, document abnormal cardiopulmonary (unknown) (no (unknown) (unknown) -September 2022: (units (unknown) date) Ground level fall unknown) resulting in multiple pathologic fractures. (unknown) (no (unknown) (unknown) -Dr. Cortes ortho (units (unknown) date) consulted does not unknown) feel that the patient requires surgical (unknown) (no (unknown) (unknown) -In ED patient (units (unknown) date) was in AFib with unknown) RVR heart rates 143-130, and 2 episodes of V (unknown) (no (unknown) (unknown) -On admit patient (units (unknown) date) is stable temp unknown) 98.2?, BP 140/80, HR 90 sinus rhythm, RR 15, O2 (unknown) (no (unknown) (unknown) -On admit: CT of (units (unknown) date) chest abdomen unknown) pelvis: Multiple lumbar compression fractures (unknown) (no (unknown) (unknown) -Social (units (unkno wn) date) Determinants of unknown) Health that impact treatment or disposition: age, (unknown) (no (unknown) (unknown) -after arrival on (units (unknown) date) the floor the unknown) patient has demonstrated a couple runs of V (unknown) (no (unknown) (unknown) -as evidence by (units (unknown) date) BMI 22.8 unknown) (unknown) (no (unknown) (unknown) -continue (units (unkn own) date) diltiazem, unknown) finasteride. (unknown) (no (unknown) (unknown) -dietary consult (units (unknown) date) ordered to unknown) evaluate and implement steps to improve caloric (unknown) (no (unknown) (unknown) -initial EKG in ED (units (unknown) date) AFib with a rate unknown) of 136, post cardioversion sinus rhythm with (unknown) (no (unknown) (unknown) -it should be (units ( unknown) date) noted that unknown) Brianda interrogated the pacemaker which did not (unknown) (no (unknown) (unknown) -patient's (units (unk nown) date) malnutrition unknown) places them at high risk for medical and surgical (unknown) (no (unknown) (unknown) -potassium 3.8, (units (unknown) date) Mag 1.9, PT 17.4, unknown) INR 1.5, initial troponin negative, COVID (unknown) (no (unknown) (unknown) 10/24/22 10/24/22 (units (unknown) date) 10/24/22 unknown) (unknown) (no (unknown) (unknown) 10/24/22 16:40 (units (unknown) date) unknown) (unknown) (no (unknown) (unknown) 10/24/22 History (units (unknown) date) unknown) (unknown) (no (unknown) (unknown) 10/24/22 (units (unkno wn) date) unknown) (unknown) (no (unknown) (unknown) [id number] (units (unkno wn) date) unknown) (unknown) (no (unknown) (unknown) 1. AFib with RVR, (units (unknown) date) acute on chronic, unknown) on Xarelto, ventricular tachycardia, (unknown) (no (unknown) (unknown) 16:14 10/24/22 (units (unknown) date) unknown) (unknown) (no (unknown) (unknown) 16:40 16:40 16:40 (units (unknown) date) unknown) (unknown) (no (unknown) (unknown) 16:51 10/24/22 (units (unknown) date) unknown) (unknown) (no (unknown) (unknown) 16:52 10/24/22 (units (unknown) date) unknown) (unknown) (no (unknown) (unknown) 16:52 (units (unkno wn) date) unknown) (unknown) (no (unknown) (unknown) 16:55 (units (unkno wn) date) unknown) (unknown) (no (unknown) (unknown) 17:00 10/24/22 (units (unknown) date) unknown) (unknown) (no (unknown) (unknown) 17:00 (units (unkno wn) date) unknown) (unknown) (no (unknown) (unknown) 17:16 10/24/22 (units (unknown) date) unknown) (unknown) (no (unknown) (unknown) 17:20 10/24/22 (units (unknown) date) unknown) (unknown) (no (unknown) (unknown) 17:20 (units (unkno wn) date) unknown) (unknown) (no (unknown) (unknown) 17:30 10/24/22 (units (unknown) date) unknown) (unknown) (no (unknown) (unknown) 17:31 10/24/22 (units (unknown) date) unknown) (unknown) (no (unknown) (unknown) 17:31 (units (unkno wn) date) unknown) (unknown) (no (unknown) (unknown) 17:35 10/24/22 (units (unknown) date) unknown) (unknown) (no (unknown) (unknown) 17:35 (units (unkno wn) date) unknown) (unknown) (no (unknown) (unknown) 17:40 10/24/22 (units (unknown) date) unknown) (unknown) (no (unknown) (unknown) 17:45 10/24/22 (units (unknown) date) unknown) (unknown) (no (unknown) (unknown) 17:51 10/24/22 (units (unknown) date) unknown) (unknown) (no (unknown) (unknown) 17:51 (units (unkno wn) date) unknown) (unknown) (no (unknown) (unknown) 17:55 10/24/22 (units (unknown) date) unknown) (unknown) (no (unknown) (unknown) 17:55 (units (unkno wn) date) unknown) (unknown) (no (unknown) (unknown) 18:00 10/24/22 (units (unknown) date) unknown) (unknown) (no (unknown) (unknown) 18:05 10/24/22 (units (unknown) date) unknown) (unknown) (no (unknown) (unknown) 18:05 (units (unkno wn) date) unknown) (unknown) (no (unknown) (unknown) 18:10 10/24/22 (units (unknown) date) unknown) (unknown) (no (unknown) (unknown) 18:10 (units (unkno wn) date) unknown) (unknown) (no (unknown) (unknown) 18:15 10/24/22 (units (unknown) date) unknown) (unknown) (no (unknown) (unknown) 18:20 10/24/22 (units (unknown) date) unknown) (unknown) (no (unknown) (unknown) 18:20 (units (unkno wn) date) unknown) (unknown) (no (unknown) (unknown) 18:25 10/24/22 (units (unknown) date) unknown) (unknown) (no (unknown) (unknown) 18:25 (units (unkno wn) date) unknown) (unknown) (no (unknown) (unknown) 18:30 10/24/22 (units (unknown) date) unknown) (unknown) (no (unknown) (unknown) 19:00 (units (unkno wn) date) unknown) (unknown) (no (unknown) (unknown) 19:07 10/24/22 (units (unknown) date) unknown) (unknown) (no (unknown) (unknown) 19:10 10/24/22 (units (unknown) date) unknown) (unknown) (no (unknown) (unknown) 19:10 (units (unkno wn) date) unknown) (unknown) (no (unknown) (unknown) 19:15 10/24/22 (units (unknown) date) unknown) (unknown) (no (unknown) (unknown) 19:15 (units (unkno wn) date) unknown) (unknown) (no (unknown) (unknown) 19:21 10/24/22 (units (unknown) date) unknown) (unknown) (no (unknown) (unknown) 19:25 10/24/22 (units (unknown) date) unknown) (unknown) (no (unknown) (unknown) 19:25 (units (unkno wn) date) unknown) (unknown) (no (unknown) (unknown) 19:30 10/24/22 (units (unknown) date) unknown) (unknown) (no (unknown) (unknown) 19:30 (units (unkno wn) date) unknown) (unknown) (no (unknown) (unknown) 19:35 10/24/22 (units (unknown) date) unknown) (unknown) (no (unknown) (unknown) 19:40 10/24/22 (units (unknown) date) unknown) (unknown) (no (unknown) (unknown) 19:40 (units (unkno wn) date) unknown) (unknown) (no (unknown) (unknown) 19:45 10/24/22 (units (unknown) date) unknown) (unknown) (no (unknown) (unknown) 19:45 (units (unkno wn) date) unknown) (unknown) (no (unknown) (unknown) 19:50 10/24/22 (units (unknown) date) unknown) (unknown) (no (unknown) (unknown) 19:55 10/24/22 (units (unknown) date) unknown) (unknown) (no (unknown) (unknown) 19:55 (units (unkno wn) date) unknown) (unknown) (no (unknown) (unknown) 2. Unstable gait, (units (unknown) date) frequent GLF unknown) falls, resulting in multiple pathologic (unknown) (no (unknown) (unknown) 20:00 10/24/22 (units (unknown) date) unknown) (unknown) (no (unknown) (unknown) 20:00 (units (unkno wn) date) unknown) (unknown) (no (unknown) (unknown) 20:06 10/24/22 (units (unknown) date) unknown) (unknown) (no (unknown) (unknown) 20:10 01/15/23 (units (unknown) date) unknown) (unknown) (no (unknown) (unknown) 20:10 (units (unkno wn) date) unknown) (unknown) (no (unknown) (unknown) 20:15 10/24/22 (units (unknown) date) unknown) (unknown) (no (unknown) (unknown) 20:15 (units (unkno wn) date) unknown) (unknown) (no (unknown) (unknown) 20:20 10/24/22 (units (unknown) date) unknown) (unknown) (no (unknown) (unknown) 20:30 10/24/22 (units (unknown) date) unknown) (unknown) (no (unknown) (unknown) 20:30 (units (unkno wn) date) unknown) (unknown) (no (unknown) (unknown) 20:45 10/24/22 (units (unknown) date) unknown) (unknown) (no (unknown) (unknown) 20:45 (units (unkno wn) date) unknown) (unknown) (no (unknown) (unknown) 3 through 8 (units (un known) date) right, left medial unknown) clavicle fracture unstable gait frequent falls. (unknown) (no (unknown) (unknown) 3. Malnutrition, (units (unknown) date) mild, acute on unknown) chronic, present on admission (unknown) (no (unknown) (unknown) 30, and 2 (units (unkn own) date) episodes of V-tach unknown) 8 attend be runs. Was successfully cardioverted (unknown) (no (unknown) (unknown) ALT 27 (units (unkno wn) date) unknown) (unknown) (no (unknown) (unknown) ALT (units (unkno wn) date) unknown) (unknown) (no (unknown) (unknown) APTT 36 (units (unkno wn) date) unknown) (unknown) (no (unknown) (unknown) APTT (units (unkno wn) date) unknown) (unknown) (no (unknown) (unknown) AST 32 (units (unkno wn) date) unknown) (unknown) (no (unknown) (unknown) AST (units (unkno wn) date) unknown) (unknown) (no (unknown) (unknown) Age/Sex: 86 / M (units (unknown) date) unknown) (unknown) (no (unknown) (unknown) Albumin 3.7 (units (un known) date) unknown) (unknown) (no (unknown) (unknown) Albumin (units (unkno wn) date) unknown) (unknown) (no (unknown) (unknown) Albumin/Globulin (units (unknown) date) Ratio 0.9 L unknown) (unknown) (no (unknown) (unknown) Albumin/Globulin (units (unknown) date) Ratio unknown) (unknown) (no (unknown) (unknown) Alkaline (units (unkno wn) date) Phosphatase 108 unknown) (unknown) (no (unknown) (unknown) Alkaline (units (unkno wn) date) Phosphatase unknown) (unknown) (no (unknown) (unknown) All 12 point (units (un known) date) systems reviewed unknown) with the patient and are negative except otherwise (unknown) (no (unknown) (unknown) Allergies (units (unkn own) date) unknown) (unknown) (no (unknown) (unknown) Allergy/AdvReac (units (unknown) date) Type Severity unknown) Reaction Status Date / Time (unknown) (no (unknown) (unknown) Assessment + Plan (units (unknown) date) narrative: unknown) (unknown) (no (unknown) (unknown) Assessment + Plan (units (unknown) date) unknown) (unknown) (no (unknown) (unknown) BPH (benign (units (un known) date) prostatic unknown) hyperplasia) (unknown) (no (unknown) (unknown) BUN 9 (units (unkno wn) date) unknown) (unknown) (no (unknown) (unknown) BUN (units (unkno wn) date) unknown) (unknown) (no (unknown) (unknown) BUN/Creatinine (units (unknown) date) Ratio 11.3 unknown) (unknown) (no (unknown) (unknown) BUN/Creatinine (units (unknown) date) Ratio unknown) (unknown) (no (unknown) (unknown) Baso # (Auto) 100 (units (unknown) date) unknown) (unknown) (no (unknown) (unknown) Baso # (Auto) (units ( unknown) date) unknown) (unknown) (no (unknown) (unknown) Baso % (Auto) 1.3 (units (unknown) date) unknown) (unknown) (no (unknown) (unknown) Baso % (Auto) (units ( unknown) date) unknown) (unknown) (no (unknown) (unknown) Been Physically (units (unknown) date) Hurt or No unknown) (unknown) (no (unknown) (unknown) Blood Pressure (units (unknown) date) 105/80 unknown) (unknown) (no (unknown) (unknown) Blood Pressure (units (unknown) date) 118/81 unknown) (unknown) (no (unknown) (unknown) Blood Pressure (units (unknown) date) 119/94 H unknown) (unknown) (no (unknown) (unknown) Blood Pressure (units (unknown) date) 120/82 unknown) (unknown) (no (unknown) (unknown) Blood Pressure (units (unknown) date) 121/81 135/82 unknown) (unknown) (no (unknown) (unknown) Blood Pressure (units (unknown) date) 122/83 128/79 unknown) (unknown) (no (unknown) (unknown) Blood Pressure (units (unknown) date) 123/79 121/83 unknown) (unknown) (no (unknown) (unknown) Blood Pressure (units (unknown) date) 125/81 127/75 unknown) (unknown) (no (unknown) (unknown) Blood Pressure (units (unknown) date) 125/90 unknown) (unknown) (no (unknown) (unknown) Blood Pressure (units (unknown) date) 129/84 117/83 unknown) (unknown) (no (unknown) (unknown) Blood Pressure (units (unknown) date) 131/75 unknown) (unknown) (no (unknown) (unknown) Blood Pressure (units (unknown) date) 131/85 153/82 H unknown) (unknown) (no (unknown) (unknown) Blood Pressure (units (unknown) date) 132/84 136/88 unknown) (unknown) (no (unknown) (unknown) Blood Pressure (units (unknown) date) 134/102 H unknown) (unknown) (no (unknown) (unknown) Blood Pressure (units (unknown) date) 134/82 unknown) (unknown) (no (unknown) (unknown) Blood Pressure (units (unknown) date) 134/87 unknown) (unknown) (no (unknown) (unknown) Blood Pressure (units (unknown) date) 136/92 H unknown) (unknown) (no (unknown) (unknown) Blood Pressure (units (unknown) date) 140/80 unknown) (unknown) (no (unknown) (unknown) Blood Pressure (units (unknown) date) 140/92 H unknown) (unknown) (no (unknown) (unknown) Blood Pressure (units (unknown) date) 141/93 H 137/96 H unknown) (unknown) (no (unknown) (unknown) Blood Pressure (units (unknown) date) 143/81 H 128/82 unknown) (unknown) (no (unknown) (unknown) Blood Pressure (units (unknown) date) 148/92 H unknown) (unknown) (no (unknown) (unknown) Blood Pressure (units (unknown) date) 148/93 H unknown) (unknown) (no (unknown) (unknown) Blood Pressure (units (unknown) date) 150/90 H 151/97 H unknown) (unknown) (no (unknown) (unknown) Blood Pressure (units (unknown) date) 150/97 H 152/86 H unknown) (unknown) (no (unknown) (unknown) CK-MB (CK-2) Rel (units (unknown) date) Index TNP unknown) (unknown) (no (unknown) (unknown) CK-MB (CK-2) Rel (units (unknown) date) Index unknown) (unknown) (no (unknown) (unknown) CK-MB (CK-2) TNP (units (unknown) date) unknown) (unknown) (no (unknown) (unknown) CK-MB (CK-2) (units (u nknown) date) unknown) (unknown) (no (unknown) (unknown) COVID PCR: (units (unk nown) date) Negative unknown) (unknown) (no (unknown) (unknown) Calcium 9.0 (units (un known) date) unknown) (unknown) (no (unknown) (unknown) Calcium (units (unkno wn) date) unknown) (unknown) (no (unknown) (unknown) Carbon Dioxide 23 (units (unknown) date) unknown) (unknown) (no (unknown) (unknown) Carbon Dioxide (units (unknown) date) unknown) (unknown) (no (unknown) (unknown) Chest x-ray (units (un known) date) radiology noted unknown) was a poor exam, document abnormal cardiopulmonary (unknown) (no (unknown) (unknown) Chief complaint: (units (unknown) date) Back pain unknown) (unknown) (no (unknown) (unknown) Chloride 106 (units (u nknown) date) unknown) (unknown) (no (unknown) (unknown) Chloride (units (unkno wn) date) unknown) (unknown) (no (unknown) (unknown) Chronic (units (unkno wn) date) anticoagulation unknown) (unknown) (no (unknown) (unknown) Code status: Full (units (unknown) date) unknown) (unknown) (no (unknown) (unknown) Complex-Vitamin (units (unknown) date) B12 tablet) unknown) (unknown) (no (unknown) (unknown) Creatinine 0.80 (units (unknown) date) unknown) (unknown) (no (unknown) (unknown) Creatinine (units (unk nown) date) unknown) (unknown) (no (unknown) (unknown) Critical Care (units ( unknown) date) time: unknown) (unknown) (no (unknown) (unknown) : 1935 (units (unknown) date) Acct:[id number] unknown) (unknown) (no (unknown) (unknown) DVT/VTE (units (unkno wn) date) prophylaxis: unknown) Patient on Xarelto, SCDs only (unknown) (no (unknown) (unknown) Date Patient (units (u nknown) date) Seen: 10/24/22 unknown) (unknown) (no (unknown) (unknown) Date of Service: (units (unknown) date) 10/24/22 unknown) (unknown) (no (unknown) (unknown) Disposition: (units (u nknown) date) Patient admitted unknown) to acute care for AFib with RVR, now in sinus (unknown) (no (unknown) (unknown) Dr. Villar in the (units (unknown) date) ED noted a unknown) possible developing ileus, will improve bowel (unknown) (no (unknown) (unknown) ED noted a (units (unk nown) date) possible unknown) developing ileus, but no documented findings on imaging at (unknown) (no (unknown) (unknown) Environment (units (un known) date) unknown) (unknown) (no (unknown) (unknown) Eos # (Auto) 200 (units (unknown) date) unknown) (unknown) (no (unknown) (unknown) Eos # (Auto) (units (u nknown) date) unknown) (unknown) (no (unknown) (unknown) Eos % (Auto) 2.1 (units (unknown) date) unknown) (unknown) (no (unknown) (unknown) Eos % (Auto) (units (u nknown) date) unknown) (unknown) (no (unknown) (unknown) Estimated GFR > (units (unknown) date) 60 unknown) (unknown) (no (unknown) (unknown) Estimated GFR (units ( unknown) date) unknown) (unknown) (no (unknown) (unknown) Exam (units (unkno wn) date) unknown) (unknown) (no (unknown) (unknown) Family + Social (units (unknown) date) History unknown) (unknown) (no (unknown) (unknown) Family History (units (unknown) date) (Reviewed 10/25/22 unknown) @ 04:01 by Ana Maria Ortega [facility]) (unknown) (no (unknown) (unknown) Father (units (unknown) date) No problems noted. unknown) (unknown) (no (unknown) (unknown) Feels Safe in (units ( unknown) date) Current Yes unknown) (unknown) (no (unknown) (unknown) Globulin 4.2 H (units (unknown) date) unknown) (unknown) (no (unknown) (unknown) Globulin (units (unkno wn) date) unknown) (unknown) (no (unknown) (unknown) Glucose 89 (units (unk nown) date) unknown) (unknown) (no (unknown) (unknown) Glucose (units (unkno wn) date) unknown) (unknown) (no (unknown) (unknown) Hct 45.9 (units (unkno wn) date) unknown) (unknown) (no (unknown) (unknown) Hct (units (unkno wn) date) unknown) (unknown) (no (unknown) (unknown) Hgb 15.6 (units (unkno wn) date) unknown) (unknown) (no (unknown) (unknown) Hgb (units (unkno wn) date) unknown) (unknown) (no (unknown) (unknown) History + (units (unkn own) date) Physical Report unknown) (unknown) (no (unknown) (unknown) History of (units (unk nown) date) Present Illness unknown) (unknown) (no (unknown) (unknown) 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 (unknown) (no (unknown) (unknown) History (units (unkno wn) date) unknown) (unknown) (no (unknown) (unknown) Home Medications (units (unknown) date) and Allergies unknown) (unknown) (no (unknown) (unknown) Home Medications (units (unknown) date) unknown) (unknown) (no (unknown) (unknown) I have personally (units (unknown) date) reviewed patient's unknown) chart notes from PCP, specialists, (unknown) (no (unknown) (unknown) I have utilized (units (unknown) date) all available unknown) immediate resources to obtain, update, or review (unknown) (no (unknown) (unknown) I spent a total (units (unknown) date) of [] minutes of unknown) critical care time on this patient's care (unknown) (no (unknown) (unknown) INR 1.5 H (units (unkn own) date) unknown) (unknown) (no (unknown) (unknown) INR (units (unkno wn) date) unknown) (unknown) (no (unknown) (unknown) [facility] (units (unknown) date) [address] [place] [address] Street unknown) [place] [address] (unknown) (no (unknown) (unknown) Nicolas Torrez (units (unknown) date) 86-year-old male unknown) slightly poor historian with history of AFib on (unknown) (no (unknown) (unknown) 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 (unknown) (no (unknown) (unknown) L1-L4, hepatic (units (unknown) date) steatosis, noted unknown) gallstones nonobstructing, cholelithiasis, (unknown) (no (unknown) (unknown) Laboratory (units (unk nown) date) Results - last 24 unknown) hr (unknown) (no (unknown) (unknown) Labs (units (unkno wn) date) unknown) (unknown) (no (unknown) (unknown) Labs: (units (unkno wn) date) unknown) (unknown) (no (unknown) (unknown) Lipase 169 (units (unk nown) date) unknown) (unknown) (no (unknown) (unknown) Lipase (units (unkno wn) date) unknown) (unknown) (no (unknown) (unknown) Lymph # (Auto) (units (unknown) date) 2300 unknown) (unknown) (no (unknown) (unknown) Lymph # (Auto) (units (unknown) date) unknown) (unknown) (no (unknown) (unknown) Lymph % (Auto) (units (unknown) date) 22.0 L unknown) (unknown) (no (unknown) (unknown) Lymph % (Auto) (units (unknown) date) unknown) (unknown) (no (unknown) (unknown) MCH 33.9 (units (unkno wn) date) unknown) (unknown) (no (unknown) (unknown) MCH (units (unkno wn) date) unknown) (unknown) (no (unknown) (unknown) MCHC 34.1 (units (unkn own) date) unknown) (unknown) (no (unknown) (unknown) MCHC (units (unkno wn) date) unknown) (unknown) (no (unknown) (unknown) MCV 99.4 (units (unkno wn) date) unknown) (unknown) (no (unknown) (unknown) MCV (units (unkno wn) date) unknown) (unknown) (no (unknown) (unknown) Magnesium 1.9 (units ( unknown) date) unknown) (unknown) (no (unknown) (unknown) Magnesium (units (unkn own) date) unknown) (unknown) (no (unknown) (unknown) Medical History (units (unknown) date) (Updated 10/25/22 unknown) @ 04:00 by RAFAELA Mercado) (unknown) (no (unknown) (unknown) Medication (units (unk nown) date) Instructions unknown) Recorded Confirmed Type (unknown) (no (unknown) (unknown) Meds (units (unkno wn) date) unknown) (unknown) (no (unknown) (unknown) Brule # (Auto) (units ( unknown) date) 1100 H unknown) (unknown) (no (unknown) (unknown) Brule # (Auto) (units ( unknown) date) unknown) (unknown) (no (unknown) (unknown) Brule % (Auto) (units ( unknown) date) 11.0 unknown) (unknown) (no (unknown) (unknown) Brule % (Auto) (units ( unknown) date) unknown) (unknown) (no (unknown) (unknown) Mother (units (unknown) date) Cancer unknown) (unknown) (no (unknown) (unknown) Multiple lumbar (units (unknown) date) compression unknown) fractures L1-L4, hepatic steatosis, noted gallstones (unknown) (no (unknown) (unknown) Narrative: (units (unk nown) date) unknown) (unknown) (no (unknown) (unknown) Neut # (Auto) (units ( unknown) date) 6500 unknown) (unknown) (no (unknown) (unknown) Neut # (Auto) (units ( unknown) date) unknown) (unknown) (no (unknown) (unknown) Neut % (Auto) (units ( unknown) date) 63.6 unknown) (unknown) (no (unknown) (unknown) Neut % (Auto) (units ( unknown) date) unknown) (unknown) (no (unknown) (unknown) No Known Drug (units ( unknown) date) Allergies Allergy unknown) Verified 10/24/22 21:16 (unknown) (no (unknown) (unknown) Objective (units (unkn own) date) unknown) (unknown) (no (unknown) (unknown) On admit patient (units (unknown) date) is stable temp unknown) 98.2?, BP 140/80, HR 90 sinus rhythm, RR 15, O2 (unknown) (no (unknown) (unknown) Osteoporosis (units (u nknown) date) unknown) (unknown) (no (unknown) (unknown) Oxygen Delivery (units (unknown) date) Method Room Air unknown) (unknown) (no (unknown) (unknown) Oxygen Delivery (units (unknown) date) Method unknown) (unknown) (no (unknown) (unknown) PT 17.4 H (units (unkn own) date) unknown) (unknown) (no (unknown) (unknown) PT (units (unkno wn) date) unknown) (unknown) (no (unknown) (unknown) Patient History (units (unknown) date) unknown) (unknown) (no (unknown) (unknown) Patient's son (units ( unknown) date) lives in [place]) [place], and has a full-time in-house (unknown) (no (unknown) (unknown) Patient: (units (unkno wn) date) Nicolas Neely unknown) MR#: [id number] (unknown) (no (unknown) (unknown) Plt Count 218 (units ( unknown) date) unknown) (unknown) (no (unknown) (unknown) Plt Count (units (unkn own) date) unknown) (unknown) (no (unknown) (unknown) Potassium 3.8 (units ( unknown) date) unknown) (unknown) (no (unknown) (unknown) Potassium (units (unkn own) date) unknown) (unknown) (no (unknown) (unknown) Provider: (units (unkn own) date) Ana Maria Ortega unknown) 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 (unknown) (no (unknown) (unknown) Pulse Oximetry 94 (units (unknown) date) unknown) (unknown) (no (unknown) (unknown) Pulse Oximetry 95 (units (unknown) date) 95 unknown) (unknown) (no (unknown) (unknown) Pulse Oximetry 95 (units (unknown) date) 96 unknown) (unknown) (no (unknown) (unknown) Pulse Oximetry 95 (units (unknown) date) unknown) (unknown) (no (unknown) (unknown) Pulse Oximetry 96 (units (unknown) date) 95 unknown) (unknown) (no (unknown) (unknown) Pulse Oximetry 96 (units (unknown) date) 97 unknown) (unknown) (no (unknown) (unknown) Pulse Oximetry 96 (units (unknown) date) unknown) (unknown) (no (unknown) (unknown) Pulse Oximetry 97 (units (unknown) date) 97 unknown) (unknown) (no (unknown) (unknown) Pulse Oximetry 98 (units (unknown) date) 98 unknown) (unknown) (no (unknown) (unknown) Pulse Oximetry 98 (units (unknown) date) 99 unknown) (unknown) (no (unknown) (unknown) Pulse Oximetry 98 (units (unknown) date) unknown) (unknown) (no (unknown) (unknown) Pulse Oximetry 99 (units (unknown) date) 98 unknown) (unknown) (no (unknown) (unknown) Pulse Oximetry 99 (units (unknown) date) unknown) (unknown) (no (unknown) (unknown) Pulse Rate 133 H (units (unknown) date) unknown) (unknown) (no (unknown) (unknown) Pulse Rate 135 H (units (unknown) date) 118 H unknown) (unknown) (no (unknown) (unknown) Pulse Rate 135 H (units (unknown) date) 130 H unknown) (unknown) (no (unknown) (unknown) Pulse Rate 136 H (units (unknown) date) 131 H unknown) (unknown) (no (unknown) (unknown) Pulse Rate 138 H (units (unknown) date) 140 H unknown) (unknown) (no (unknown) (unknown) Pulse Rate 143 H (units (unknown) date) 136 H unknown) (unknown) (no (unknown) (unknown) Pulse Rate 85 86 (units (unknown) date) unknown) (unknown) (no (unknown) (unknown) Pulse Rate 85 (units ( unknown) date) unknown) (unknown) (no (unknown) (unknown) Pulse Rate 86 (units ( unknown) date) unknown) (unknown) (no (unknown) (unknown) Pulse Rate 87 84 (units (unknown) date) unknown) (unknown) (no (unknown) (unknown) Pulse Rate 87 89 (units (unknown) date) unknown) (unknown) (no (unknown) (unknown) Pulse Rate 88 89 (units (unknown) date) unknown) (unknown) (no (unknown) (unknown) Pulse Rate 90 85 (units (unknown) date) unknown) (unknown) (no (unknown) (unknown) Pulse Rate 90 91 (units (unknown) date) H unknown) (unknown) (no (unknown) (unknown) Pulse Rate 90 (units ( unknown) date) unknown) (unknown) (no (unknown) (unknown) Pulse Rate 91 H (units (unknown) date) 103 H unknown) (unknown) (no (unknown) (unknown) Pulse Rate 91 H (units (unknown) date) 90 unknown) (unknown) (no (unknown) (unknown) Pulse Rate 91 H (units (unknown) date) unknown) (unknown) (no (unknown) (unknown) Pulse Rate 92 H (units (unknown) date) 90 unknown) (unknown) (no (unknown) (unknown) Pulse Rate 92 H (units (unknown) date) unknown) (unknown) (no (unknown) (unknown) Pulse Rate 93 H (units (unknown) date) unknown) (unknown) (no (unknown) (unknown) RBC 4.62 (units (unkno wn) date) unknown) (unknown) (no (unknown) (unknown) RBC (units (unkno wn) date) unknown) (unknown) (no (unknown) (unknown) RDW 14.5 (units (unkno wn) date) unknown) (unknown) (no (unknown) (unknown) RDW (units (unkno wn) date) unknown) (unknown) (no (unknown) (unknown) Respiratory Rate (units (unknown) date) 11 L 17 unknown) (unknown) (no (unknown) (unknown) Respiratory Rate (units (unknown) date) 11 L unknown) (unknown) (no (unknown) (unknown) Respiratory Rate (units (unknown) date) 13 10 L unknown) (unknown) (no (unknown) (unknown) Respiratory Rate (units (unknown) date) 14 14 unknown) (unknown) (no (unknown) (unknown) Respiratory Rate (units (unknown) date) 14 21 unknown) (unknown) (no (unknown) (unknown) Respiratory Rate (units (unknown) date) 14 unknown) (unknown) (no (unknown) (unknown) Respiratory Rate (units (unknown) date) 15 13 unknown) (unknown) (no (unknown) (unknown) Respiratory Rate (units (unknown) date) 15 15 unknown) (unknown) (no (unknown) (unknown) Respiratory Rate (units (unknown) date) 15 16 unknown) (unknown) (no (unknown) (unknown) Respiratory Rate (units (unknown) date) 15 22 unknown) (unknown) (no (unknown) (unknown) Respiratory Rate (units (unknown) date) 15 unknown) (unknown) (no (unknown) (unknown) Respiratory Rate (units (unknown) date) 16 17 unknown) (unknown) (no (unknown) (unknown) Respiratory Rate (units (unknown) date) 16 unknown) (unknown) (no (unknown) (unknown) Respiratory Rate (units (unknown) date) 17 15 unknown) (unknown) (no (unknown) (unknown) Respiratory Rate (units (unknown) date) 17 unknown) (unknown) (no (unknown) (unknown) Respiratory Rate (units (unknown) date) 18 12 unknown) (unknown) (no (unknown) (unknown) Respiratory Rate (units (unknown) date) 18 unknown) (unknown) (no (unknown) (unknown) Respiratory Rate (units (unknown) date) 19 22 unknown) (unknown) (no (unknown) (unknown) Respiratory Rate (units (unknown) date) 20 13 unknown) (unknown) (no (unknown) (unknown) Respiratory Rate (units (unknown) date) 20 unknown) (unknown) (no (unknown) (unknown) Respiratory Rate (units (unknown) date) 21 11 L unknown) (unknown) (no (unknown) (unknown) Respiratory Rate (units (unknown) date) 23 15 unknown) (unknown) (no (unknown) (unknown) Result Diagrams: (units (unknown) date) unknown) (unknown) (no (unknown) (unknown) Review of Systems (units (unknown) date) unknown) (unknown) (no (unknown) (unknown) SARS-CoV-2 (PCR) (units (unknown) date) Negative unknown) (unknown) (no (unknown) (unknown) SARS-CoV-2 (PCR) (units (unknown) date) unknown) (unknown) (no (unknown) (unknown) Safety + (units (unkno wn) date) Behavioral: unknown) (unknown) (no (unknown) (unknown) Signed By: (units (unk nown) date) unknown) (unknown) (no (unknown) (unknown) Smoking Status (units (unknown) date) Never smoker unknown) (unknown) (no (unknown) (unknown) Social History: (units (unknown) date) unknown) (unknown) (no (unknown) (unknown) Sodium 139 (units (unk nown) date) unknown) (unknown) (no (unknown) (unknown) Sodium (units (unkno wn) date) unknown) (unknown) (no (unknown) (unknown) Surgical History (units (unknown) date) (Updated 10/25/22 unknown) @ 04:00 by [facility]) (unknown) (no (unknown) (unknown) Surrogate (units (unkn own) date) decision maker: unknown) Son, patient also has a full-time caregiver Davonte (unknown) (no (unknown) (unknown) Temperature 98.2 (units (unknown) date) F unknown) (unknown) (no (unknown) (unknown) Temperature (units (un known) date) unknown) (unknown) (no (unknown) (unknown) Threatened By a (units (unknown) date) Person unknown) (unknown) (no (unknown) (unknown) Time Patient (units (u nknown) date) Seen: 22:04 unknown) (unknown) (no (unknown) (unknown) Time Spent With (units (unknown) date) Patient unknown) (unknown) (no (unknown) (unknown) Tobacco + (units (unkn own) date) Substance use: unknown) (unknown) (no (unknown) (unknown) Total Bilirubin (units (unknown) date) 1.1 unknown) (unknown) (no (unknown) (unknown) Total Bilirubin (units (unknown) date) unknown) (unknown) (no (unknown) (unknown) Total Creatine (units (unknown) date) Kinase < 20 L unknown) (unknown) (no (unknown) (unknown) Total Creatine (units (unknown) date) Kinase unknown) (unknown) (no (unknown) (unknown) Total Protein 7.9 (units (unknown) date) unknown) (unknown) (no (unknown) (unknown) Total Protein (units ( unknown) date) unknown) (unknown) (no (unknown) (unknown) Troponin I < (units (u nknown) date) 0.012 unknown) (unknown) (no (unknown) (unknown) Troponin I (units (unk nown) date) unknown) (unknown) (no (unknown) (unknown) Vital Signs (units (un known) date) unknown) (unknown) (no (unknown) (unknown) WBC 10.3 (units (unkno wn) date) unknown) (unknown) (no (unknown) (unknown) WBC (units (unkno wn) date) unknown) (unknown) (no (unknown) (unknown) Xarelto for many (units (unknown) date) years, pacemaker unknown) placement for sick sinus syndrome, history of (unknown) (no (unknown) (unknown) Xarelto, multiple (units (unknown) date) healing lumbar unknown) compression fractures, bilateral rib fractures (unknown) (no (unknown) (unknown) Xarelto, multiple (units (unknown) date) healing lumbar unknown) compression fractures, bilateral rib fractures, (unknown) (no (unknown) (unknown) [Embedded Image (units (unknown) date) Not Available] unknown) (unknown) (no (unknown) (unknown) aches, chills, (units (unknown) date) abdominal pain, unknown) nausea, vomiting, diarrhea, urinary symptoms, (unknown) (no (unknown) (unknown) acute care (units (unk nown) date) inpatient hospital unknown) management for AFib RVR on Xarelto, sick sinus (unknown) (no (unknown) (unknown) alcohol intake (units (unknown) date) frequency unknown) holiday/special occasion (unknown) (no (unknown) (unknown) and continues to (units (unknown) date) be in sinus unknown) rhythm. No WBC, mono 11,000. Stable electrolytes (unknown) (no (unknown) (unknown) arousable. In ED (units (unknown) date) patient was in unknown) AFib with RVR heart rates 143-30, and 2 (unknown) (no (unknown) (unknown) at rest with no (units (unknown) date) movement in bed. unknown) Patient denies headache, changes in vision, (unknown) (no (unknown) (unknown) bimatoprost 0.01 (units (unknown) date) % eye drops 1 drp unknown) ophthalmic (eye) DAILY 10/24/22 10/24/22 (unknown) (no (unknown) (unknown) bupropion HCl 150 (units (unknown) date) mg tablet,12 hr unknown) 150 mg PO BID 10/24/22 10/24/22 History (unknown) (no (unknown) (unknown) capsule,extended (units (unknown) date) release 24 hr unknown) (unknown) (no (unknown) (unknown) caregiver Davonte. (units (unknown) date) unknown) (unknown) (no (unknown) (unknown) clavicle (units (unkno wn) date) fracture. unknown) (unknown) (no (unknown) (unknown) colonic (units (unkno wn) date) diverticulosis. unknown) (unknown) (no (unknown) (unknown) comparison for (units (unknown) date) labs diagnostics unknown) or EKG in system. CT of chest abdomen pelvis: (unknown) (no (unknown) (unknown) complications (units ( unknown) date) because of the unknown) severe malnutrition in relation to acute (unknown) (no (unknown) (unknown) compression (units (unk nown) date) fractures, unknown) clavicle fracture, bilateral rib fractures, after failing (unknown) (no (unknown) (unknown) compression (units (un known) date) fractures, lumbar, unknown) clavicle-left, ribs-bilaterally, with (unknown) (no (unknown) (unknown) continues to be (units (unknown) date) in sinus rhythm. unknown) No WBC, mono 11,000. Stable electrolytes (unknown) (no (unknown) (unknown) cough, (units (unkno wn) date) congestion, ear unknown) eye discomfort, upper respiratory symptoms, fever, body (unknown) (no (unknown) (unknown) diagnostic (units (unk nown) date) imaging, and unknown) laboratory results. (unknown) (no (unknown) (unknown) diltiazem HCl 240 (units (unknown) date) mg 240 mg PO DAILY unknown) 10/24/22 10/24/22 History (unknown) (no (unknown) (unknown) documented. (units (un known) date) unknown) (unknown) (no (unknown) (unknown) does not feel (units ( unknown) date) that the patient unknown) requires surgical intervention, will evaluate (unknown) (no (unknown) (unknown) dorzolamide 22.3 (units (unknown) date) mg-timolol 6.8 1 unknown) drp ophthalmic (eye) DAILY 10/24/22 10/24/22 (unknown) (no (unknown) (unknown) emptying but no (units (unknown) date) findings on unknown) imaging at this time. Dr. Sebastian jones consulted (unknown) (no (unknown) (unknown) episodes of (units (un known) date) V-tach 8 attend be unknown) runs. Was successfully cardioverted and (unknown) (no (unknown) (unknown) evaluated in (units (u nknown) date) imaging completed unknown) prior at another facility, and has seen Dr. Norman (unknown) (no (unknown) (unknown) evaluation of (units ( unknown) date) pacemaker unknown) function. (unknown) (no (unknown) (unknown) fatigue but (units (unk nown) date) primarily due to unknown) worsening severe midline low back pain. admits that (unknown) (no (unknown) (unknown) fibrillation with (units (unknown) date) RVR, ventricular unknown) tachycardia, osteoporosis and continued (unknown) (no (unknown) (unknown) finasteride 5 mg (units (unknown) date) tablet 5 mg PO unknown) DAILY 10/24/22 10/24/22 History (unknown) (no (unknown) (unknown) for labs (units (unkno wn) date) diagnostics or EKG unknown) in system. (unknown) (no (unknown) (unknown) for multiple (units (u nknown) date) falls and gait unknown) instability, and dietary consult for BMI 22.8. (unknown) (no (unknown) (unknown) fractures due to (units (unknown) date) 2 ground level unknown) falls. presented to ED for worsening episodes (unknown) (no (unknown) (unknown) frequent falls . (units (unknown) date) These factors unknown) increase the difficulty and complexity of (unknown) (no (unknown) (unknown) fully empties (units ( unknown) date) bladder, unknown) hematemesis, hematuria, changes in bowel, melena, recent (unknown) (no (unknown) (unknown) ground level fall (units (unknown) date) September of 2022. unknown) Presented increasing shortness of breath, (unknown) (no (unknown) (unknown) his ability to (units (unknown) date) function home, unknown) safety, and manage ADLs. This patient requires (unknown) (no (unknown) (unknown) his or her (units (unk nown) date) oxygenation, which unknown) will likely contribute to increased risk of (unknown) (no (unknown) (unknown) illness/chronic (units (unknown) date) illness. This unknown) increases the difficulty in complexity of medical (unknown) (no (unknown) (unknown) inability to (units (u nknown) date) function at home unknown) due to pain. (unknown) (no (unknown) (unknown) intake and (units (unk nown) date) nutrition. unknown) (unknown) (no (unknown) (unknown) intermittent, (units ( unknown) date) acute on chronic, unknown) present on admission- resolved (unknown) (no (unknown) (unknown) intervention, (units ( unknown) date) will evaluate unknown) patient tomorrow. (unknown) (no (unknown) (unknown) left medial (units (un known) date) clavicle fracture unknown) unstable gait frequent falls. Dr. Villar in the (unknown) (no (unknown) (unknown) management and (units (unknown) date) increases the unknown) chances poor outcomes such as mortality and (unknown) (no (unknown) (unknown) medical and (units (un known) date) surgical unknown) interventions and increases the chances of poor outcomes (unknown) (no (unknown) (unknown) medication (units (unk nown) date) changes, exposure unknown) too or illness. (unknown) (no (unknown) (unknown) medication. At the (units (unknown) date) time of admit unknown) patient was resting comfortably denied any pain (unknown) (no (unknown) (unknown) mg/mL eye drops (units (unknown) date) unknown) (unknown) (no (unknown) (unknown) morbidity as well (units (unknown) date) as impaired wound unknown) healing, and immune suppression. (unknown) (no (unknown) (unknown) multilevel (units (unkn own) date) osteopenic unknown) compression fractures with retropulsed fracture segment at (unknown) (no (unknown) (unknown) multiple lumbar (units (unknown) date) compression unknown) fractures, clavicle fracture, rib fractures due to a (unknown) (no (unknown) (unknown) negative, initial (units (unknown) date) EKG in ED AFib unknown) with a rate of 136, post cardioversion sinus (unknown) (no (unknown) (unknown) negative, (units (unkn own) date) unknown) (unknown) (no (unknown) (unknown) nonobstructing, (units (unknown) date) cholelithiasis, unknown) colonic diverticulosis. Patient was seen (unknown) (no (unknown) (unknown) of shortness of (units (unknown) date) breath and fatigue unknown) but primarily due to severe midline low back (unknown) (no (unknown) (unknown) omeprazole 20 mg (units (unknown) date) capsule,delayed 20 unknown) mg PO DAILY 10/24/22 10/24/22 History (unknown) (no (unknown) (unknown) ortho regarding (units (unknown) date) multiple unknown) fractures, is scheduled for follow-up on 10/25/2021. (unknown) (no (unknown) (unknown) osteoporosis, (units ( unknown) date) acute on chronic, unknown) present on admission (unknown) (no (unknown) (unknown) outpatient (units (unk nown) date) management of. The unknown) patient is at much higher risk for medical and (unknown) (no (unknown) (unknown) pain occasional (units (unknown) date) shortness of unknown) breath which is normal for him.? In ED he had (unknown) (no (unknown) (unknown) pain. ? He denies (units (unknown) date) any numbness, unknown) tingling, bowel or bladder incontinence, chest (unknown) (no (unknown) (unknown) patient tomorrow. (units (unknown) date) unknown) (unknown) (no (unknown) (unknown) patient's atrial (units (unknown) date) fibrillation with unknown) RVR, and ventricular tachycardia, bilateral (unknown) (no (unknown) (unknown) pneumonia. (units (unk nown) date) Patient admitted unknown) for AFib with RVR, pacer on Xarelto, ventricular (unknown) (no (unknown) (unknown) potassium 3.8, (units (unknown) date) Mag 1.9, PT 17.4, unknown) INR 1.5, initial troponin negative, COVID (unknown) (no (unknown) (unknown) process but (units (un known) date) nothing further unknown) noted. Patient admitted for AFib with RVR, pacer on (unknown) (no (unknown) (unknown) process but (units (un known) date) nothing further unknown) noted. (unknown) (no (unknown) (unknown) register or (units (unk nown) date) acknowledge the unknown) atrial fibrillation with RVR, the runs of V-tach nor (unknown) (no (unknown) (unknown) release (units (unkno wn) date) unknown) (unknown) (no (unknown) (unknown) requires surgical (units (unknown) date) intervention, will unknown) evaluate tomorrow. (unknown) (no (unknown) (unknown) rhythm with sinus (units (unknown) date) arrhythmia rate of unknown) [address] and T-wave changes, no (unknown) (no (unknown) (unknown) rhythm, echo (units (u nknown) date) tomorrow, pain unknown) control for fractures, ortho consult, PT/OT consult (unknown) (no (unknown) (unknown) rhythm. (units (unkno wn) date) unknown) (unknown) (no (unknown) (unknown) rib fractures (units ( unknown) date) left clavicle unknown) fracture, as well as mild malnutrition will impact (unknown) (no (unknown) (unknown) rivaroxaban 20 mg (units (unknown) date) tablet (Xarelto) unknown) 20 mg PO QPM 10/24/22 10/24/22 History (unknown) (no (unknown) (unknown) saturation 98% on (units (unknown) date) room air. In ED unknown) patient was in AFib with RVR heart rates 143 (unknown) (no (unknown) (unknown) saturation 98% on (units (unknown) date) room air. Patient unknown) resting comfortably sleeping bed easily (unknown) (no (unknown) (unknown) saturation 98% on (units (unknown) date) room air. unknown) (unknown) (no (unknown) (unknown) seen 10/07/22 for (units (unknown) date) multiple lumbar unknown) compression fractures, clavicle fracture, rib (unknown) (no (unknown) (unknown) significant pain (units (unknown) date) worse with range unknown) of motion and improves with rest and pain (unknown) (no (unknown) (unknown) sinus arrhythmia (units (unknown) date) rate of 88 unknown) nonspecific ST and T-wave changes, no comparison (unknown) (no (unknown) (unknown) such as morbidity (units (unknown) date) and mortality, as unknown) well as complications such as. The (unknown) (no (unknown) (unknown) surgical (units (unkno wn) date) complications unknown) because of age, chronic anticoagulation, atrial (unknown) (no (unknown) (unknown) sustained-release (units (unknown) date) unknown) (unknown) (no (unknown) (unknown) syndrome, (units (unkn own) date) ventricular unknown) tachycardia, frequent falls, + for multiple lumbar (unknown) (no (unknown) (unknown) tach 8-10 beat (units (unknown) date) runs. Successfully unknown) cardioverted and continues to be in sinus (unknown) (no (unknown) (unknown) tach, was (units (unkn own) date) asymptomatic, and unknown) pacer worked appropriately and resolved to sinus. (unknown) (no (unknown) (unknown) tachycardia (units (un known) date) multiple healing unknown) lumbar compression fractures, and left medial (unknown) (no (unknown) (unknown) tamsulosin 0.4 mg (units (unknown) date) capsule 0.4 mg PO unknown) BEDTIME 10/24/22 10/24/22 History (unknown) (no (unknown) (unknown) the (units (unkno wn) date) cardioversion-priyank unknown) ent should follow-up with Cardiology upon discharge for (unknown) (no (unknown) (unknown) the majority of (units (unknown) date) his day is unknown) consumed with severe pain. Which is now impacting (unknown) (no (unknown) (unknown) the patient's (units ( unknown) date) current unknown) medications. (unknown) (no (unknown) (unknown) this time. (units (unknown) date) [facility]) consulted in ED does not feel that the patient (unknown) (no (unknown) (unknown) today; this time (units (unknown) date) is exclusive of unknown) procedural time. (unknown) (no (unknown) (unknown) topical ointment (units (unknown) date) unknown) (unknown) (no (unknown) (unknown) triamcinolone (units ( unknown) date) acetonide 0.1 % 1 unknown) applic topical DAILY PRN Dry Skin 10/24/22 (unknown) (no (unknown) (unknown) ventricular (units (un known) date) tachycardia, unknown) osteoporosis, BPH frequent falls, previously imaged (unknown) (no (unknown) (unknown) ventricular (units (un known) date) tachycardia, unknown) osteoporosis, frequent falls, previously seen for (unknown) (no (unknown) (unknown) vitamin B complex (units (unknown) date) (B 1 tab PO DAILY unknown) 10/24/22 10/24/22 History Result panel 267 (unknown) (no date) (unknown) (unknown) > 60 ml/min (unkn own) (unknown) (no date) (unknown) (unknown) > 60 ml/min (unkn own) (unknown) (no date) (unknown) (unknown) 0.65 mg/dl (unkn own) (unknown) (no date) (unknown) (unknown) 1.8 mg/dl (unkn own) (unknown) (no date) (unknown) (unknown) 104 mg/dl (unkn own) (unknown) (no date) (unknown) (unknown) 104 mg/dl (unkn own) (unknown) (no date) (unknown) (unknown) 107 mmol/l (unkn own) (unknown) (no date) (unknown) (unknown) 127 mg/dl (unkn own) (unknown) (no date) (unknown) (unknown) 127 mg/dl (unkn own) (unknown) (no date) (unknown) (unknown) 13.8 (units unknown) (unknown) (unknown) (no date) (unknown) (unknown) 138 mmol/l (unkn own) (unknown) (no date) (unknown) (unknown) 21 mmol/l (unkn own) (unknown) (no date) (unknown) (unknown) 3.3 mmol/l (unkn own) (unknown) (no date) (unknown) (unknown) 34 mg/dl (unkn own) (unknown) (no date) (unknown) (unknown) 34 mg/dl (unkn own) (unknown) (no date) (unknown) (unknown) 55 mg/dl (unkn own) (unknown) (no date) (unknown) (unknown) 55 mg/dl (unkn own) (unknown) (no date) (unknown) (unknown) 75 mg/dl (unkn own) (unknown) (no date) (unknown) (unknown) 75 mg/dl (unkn own) (unknown) (no date) (unknown) (unknown) 8.3 mg/dl (unkn own) (unknown) (no date) (unknown) (unknown) 9 mg/dl (unkn own) Result panel 268 (unknown) (no date) (unknown) (unknown) 0.014 ng/ml (unkn own) (unknown) (no date) (unknown) (unknown) 0.014 ng/ml (unkn own) Result panel 269 (unknown) (no (unknown) (unknown) (no value) (units (unk nown) date) unknown) (unknown) (no (unknown) (unknown) ([place]) (units (unkn own) date) unknown) (unknown) (no (unknown) (unknown) (past 8 hours): (units (unknown) date) unknown) (unknown) (no (unknown) (unknown) -10/07/2022 (units (un known) date) advanced imaging unknown) from our facility C-spine and lumbar noting (unknown) (no (unknown) (unknown) -Chest x-ray (units (u nknown) date) radiology noted unknown) was a poor exam, document abnormal cardiopulmonary (unknown) (no (unknown) (unknown) -September 2022: (units (unknown) date) Ground level fall unknown) resulting in multiple pathologic fractures. (unknown) (no (unknown) (unknown) -Dr. Cortes ortho (units (unknown) date) consulted in ED unknown) did not feel that the patient requires surgical (unknown) (no (unknown) (unknown) -In ED patient (units (unknown) date) was in AFib with unknown) RVR heart rates 143-130, and 2 episodes of V (unknown) (no (unknown) (unknown) -Managed (units (unkno wn) date) outpatient Dr. Norman unknown) ortho -scheduled for follow-up on 10/25/2021. (unknown) (no (unknown) (unknown) -On admit patient (units (unknown) date) is stable temp unknown) 98.2?, BP 140/80, HR 90 sinus rhythm, RR 15, O2 (unknown) (no (unknown) (unknown) -On admit: CT of (units (unknown) date) chest abdomen unknown) pelvis: Multiple lumbar compression fractures (unknown) (no (unknown) (unknown) -PT/OT (units (unkno wn) date) evaluation, unknown) patient will likely require rehab or SNF placement on (unknown) (no (unknown) (unknown) -Social (units (unkno wn) date) Determinants of unknown) Health that impact treatment or disposition: age, (unknown) (no (unknown) (unknown) -after arrival on (units (unknown) date) the floor the unknown) patient has demonstrated a couple runs of V (unknown) (no (unknown) (unknown) -as evidence by (units (unknown) date) BMI 22.8 unknown) (unknown) (no (unknown) (unknown) -continue (units (unkn own) date) diltiazem, unknown) finasteride. (unknown) (no (unknown) (unknown) -dietary consult (units (unknown) date) ordered to unknown) evaluate and implement steps to improve caloric (unknown) (no (unknown) (unknown) -global weakness, (units (unknown) date) deconditioning unknown) (unknown) (no (unknown) (unknown) -initial EKG in ED (units (unknown) date) AFib with a rate unknown) of 136, post cardioversion sinus rhythm with (unknown) (no (unknown) (unknown) -initial troponin (units (unknown) date) negative, will unknown) trend (unknown) (no (unknown) (unknown) -it should be (units ( unknown) date) noted that unknown) Brianda interrogated the pacemaker which did not (unknown) (no (unknown) (unknown) -ordered ETOH, (units (unknown) date) TSH, free T4, unknown) lipids, BNP, A1c (unknown) (no (unknown) (unknown) -pain management (units (unknown) date) unknown) (unknown) (no (unknown) (unknown) -patient's (units (unk nown) date) malnutrition unknown) places them at high risk for medical and surgical (unknown) (no (unknown) (unknown) -placed on (units (unk nown) date) telemedicine unknown) (unknown) (no (unknown) (unknown) -potassium 3.8, (units (unknown) date) Mag 1.9, PT 17.4, unknown) INR 1.5, initial troponin negative, COVID (unknown) (no (unknown) (unknown) -unknown if (units (un known) date) obstructive unknown) (unknown) (no (unknown) (unknown) 10/24/22 10/24/22 (units (unknown) date) 10/24/22 unknown) (unknown) (no (unknown) (unknown) 10/24/22 16:40 (units (unknown) date) unknown) (unknown) (no (unknown) (unknown) 10/24/22 History (units (unknown) date) unknown) (unknown) (no (unknown) (unknown) 10/24/22 (units (unkno wn) date) unknown) (unknown) (no (unknown) (unknown) [id number] (units (unkno wn) date) unknown) (unknown) (no (unknown) (unknown) 1. AFib with RVR, (units (unknown) date) acute on chronic, unknown) on Xarelto, ventricular tachycardia, (unknown) (no (unknown) (unknown) 16:14 10/24/22 (units (unknown) date) unknown) (unknown) (no (unknown) (unknown) 16:40 16:40 16:40 (units (unknown) date) unknown) (unknown) (no (unknown) (unknown) 16:51 10/24/22 (units (unknown) date) unknown) (unknown) (no (unknown) (unknown) 16:52 10/24/22 (units (unknown) date) unknown) (unknown) (no (unknown) (unknown) 16:52 (units (unkno wn) date) unknown) (unknown) (no (unknown) (unknown) 16:55 (units (unkno wn) date) unknown) (unknown) (no (unknown) (unknown) 17:00 10/24/22 (units (unknown) date) unknown) (unknown) (no (unknown) (unknown) 17:00 (units (unkno wn) date) unknown) (unknown) (no (unknown) (unknown) 17:16 10/24/22 (units (unknown) date) unknown) (unknown) (no (unknown) (unknown) 17:20 10/24/22 (units (unknown) date) unknown) (unknown) (no (unknown) (unknown) 17:20 (units (unkno wn) date) unknown) (unknown) (no (unknown) (unknown) 17:30 10/24/22 (units (unknown) date) unknown) (unknown) (no (unknown) (unknown) 17:31 10/24/22 (units (unknown) date) unknown) (unknown) (no (unknown) (unknown) 17:31 (units (unkno wn) date) unknown) (unknown) (no (unknown) (unknown) 17:35 01/15/23 (units (unknown) date) unknown) (unknown) (no (unknown) (unknown) 17:35 (units (unkno wn) date) unknown) (unknown) (no (unknown) (unknown) 17:40 10/24/22 (units (unknown) date) unknown) (unknown) (no (unknown) (unknown) 17:45 10/24/22 (units (unknown) date) unknown) (unknown) (no (unknown) (unknown) 17:51 10/24/22 (units (unknown) date) unknown) (unknown) (no (unknown) (unknown) 17:51 (units (unkno wn) date) unknown) (unknown) (no (unknown) (unknown) 17:55 10/24/22 (units (unknown) date) unknown) (unknown) (no (unknown) (unknown) 17:55 (units (unkno wn) date) unknown) (unknown) (no (unknown) (unknown) 18:00 10/24/22 (units (unknown) date) unknown) (unknown) (no (unknown) (unknown) 18:05 10/24/22 (units (unknown) date) unknown) (unknown) (no (unknown) (unknown) 18:05 (units (unkno wn) date) unknown) (unknown) (no (unknown) (unknown) 18:10 10/24/22 (units (unknown) date) unknown) (unknown) (no (unknown) (unknown) 18:10 (units (unkno wn) date) unknown) (unknown) (no (unknown) (unknown) 18:15 10/24/22 (units (unknown) date) unknown) (unknown) (no (unknown) (unknown) 18:20 10/24/22 (units (unknown) date) unknown) (unknown) (no (unknown) (unknown) 18:20 (units (unkno wn) date) unknown) (unknown) (no (unknown) (unknown) 18:25 10/24/22 (units (unknown) date) unknown) (unknown) (no (unknown) (unknown) 18:25 (units (unkno wn) date) unknown) (unknown) (no (unknown) (unknown) 18:30 10/24/22 (units (unknown) date) unknown) (unknown) (no (unknown) (unknown) 19:00 (units (unkno wn) date) unknown) (unknown) (no (unknown) (unknown) 19:07 10/24/22 (units (unknown) date) unknown) (unknown) (no (unknown) (unknown) 19:10 10/24/22 (units (unknown) date) unknown) (unknown) (no (unknown) (unknown) 19:10 (units (unkno wn) date) unknown) (unknown) (no (unknown) (unknown) 19:15 10/24/22 (units (unknown) date) unknown) (unknown) (no (unknown) (unknown) 19:15 (units (unkno wn) date) unknown) (unknown) (no (unknown) (unknown) 19:21 10/24/22 (units (unknown) date) unknown) (unknown) (no (unknown) (unknown) 19:25 10/24/22 (units (unknown) date) unknown) (unknown) (no (unknown) (unknown) 19:25 (units (unkno wn) date) unknown) (unknown) (no (unknown) (unknown) 19:30 10/24/22 (units (unknown) date) unknown) (unknown) (no (unknown) (unknown) 19:30 (units (unkno wn) date) unknown) (unknown) (no (unknown) (unknown) 19:35 10/24/22 (units (unknown) date) unknown) (unknown) (no (unknown) (unknown) 19:40 10/24/22 (units (unknown) date) unknown) (unknown) (no (unknown) (unknown) 19:40 (units (unkno wn) date) unknown) (unknown) (no (unknown) (unknown) 19:45 10/24/22 (units (unknown) date) unknown) (unknown) (no (unknown) (unknown) 19:45 (units (unkno wn) date) unknown) (unknown) (no (unknown) (unknown) 19:50 10/24/22 (units (unknown) date) unknown) (unknown) (no (unknown) (unknown) 19:55 10/24/22 (units (unknown) date) unknown) (unknown) (no (unknown) (unknown) 19:55 (units (unkno wn) date) unknown) (unknown) (no (unknown) (unknown) 2. Unstable gait, (units (unknown) date) frequent GLF unknown) falls, resulting in multiple pathologic (unknown) (no (unknown) (unknown) 20:00 10/24/22 (units (unknown) date) unknown) (unknown) (no (unknown) (unknown) 20:00 (units (unkno wn) date) unknown) (unknown) (no (unknown) (unknown) 20:06 10/24/22 (units (unknown) date) unknown) (unknown) (no (unknown) (unknown) 20:10 10/24/22 (units (unknown) date) unknown) (unknown) (no (unknown) (unknown) 20:10 (units (unkno wn) date) unknown) (unknown) (no (unknown) (unknown) 20:15 10/24/22 (units (unknown) date) unknown) (unknown) (no (unknown) (unknown) 20:15 (units (unkno wn) date) unknown) (unknown) (no (unknown) (unknown) 20:20 10/24/22 (units (unknown) date) unknown) (unknown) (no (unknown) (unknown) 20:30 10/24/22 (units (unknown) date) unknown) (unknown) (no (unknown) (unknown) 20:30 (units (unkno wn) date) unknown) (unknown) (no (unknown) (unknown) 20:45 10/24/22 (units (unknown) date) unknown) (unknown) (no (unknown) (unknown) 20:45 (units (unkno wn) date) unknown) (unknown) (no (unknown) (unknown) 3 through 8 (units (un known) date) right, left medial unknown) clavicle fracture unstable gait frequent falls. (unknown) (no (unknown) (unknown) 3. Malnutrition, (units (unknown) date) mild, acute on unknown) chronic, present on admission (unknown) (no (unknown) (unknown) 30, and 2 (units (unkn own) date) episodes of V-tach unknown) 8 attend be runs. Was successfully cardioverted (unknown) (no (unknown) (unknown) 4. BPH, chronic, (units (unknown) date) present on unknown) admission (unknown) (no (unknown) (unknown) ADLs.? He denies (units (unknown) date) any numbness, unknown) tingling, bowel or bladder incontinence, chest (unknown) (no (unknown) (unknown) ALT 27 (units (unkno wn) date) unknown) (unknown) (no (unknown) (unknown) ALT (units (unkno wn) date) unknown) (unknown) (no (unknown) (unknown) APTT 36 (units (unkno wn) date) unknown) (unknown) (no (unknown) (unknown) APTT (units (unkno wn) date) unknown) (unknown) (no (unknown) (unknown) AST 32 (units (unkno wn) date) unknown) (unknown) (no (unknown) (unknown) AST (units (unkno wn) date) unknown) (unknown) (no (unknown) (unknown) Abdomen: Soft (units ( unknown) date) nontender, unknown) negative for organomegaly, or masses. Bowel sounds (unknown) (no (unknown) (unknown) Age/Sex: 86 / M (units (unknown) date) unknown) (unknown) (no (unknown) (unknown) Albumin 3.7 (units (un known) date) unknown) (unknown) (no (unknown) (unknown) Albumin (units (unkno wn) date) unknown) (unknown) (no (unknown) (unknown) Albumin/Globulin (units (unknown) date) Ratio 0.9 L unknown) (unknown) (no (unknown) (unknown) Albumin/Globulin (units (unknown) date) Ratio unknown) (unknown) (no (unknown) (unknown) Alkaline (units (unkno wn) date) Phosphatase 108 unknown) (unknown) (no (unknown) (unknown) Alkaline (units (unkno wn) date) Phosphatase unknown) (unknown) (no (unknown) (unknown) All 12 point (units (un known) date) systems reviewed unknown) with the patient and are negative except otherwise (unknown) (no (unknown) (unknown) Allergies (units (unkn own) date) unknown) (unknown) (no (unknown) (unknown) Allergy/AdvReac (units (unknown) date) Type Severity unknown) Reaction Status Date / Time (unknown) (no (unknown) (unknown) Assessment + Plan (units (unknown) date) narrative: unknown) (unknown) (no (unknown) (unknown) Assessment + Plan (units (unknown) date) unknown) (unknown) (no (unknown) (unknown) BPH (benign (units (un known) date) prostatic unknown) hyperplasia) (unknown) (no (unknown) (unknown) BUN 9 (units (unkno wn) date) unknown) (unknown) (no (unknown) (unknown) BUN (units (unkno wn) date) unknown) (unknown) (no (unknown) (unknown) BUN/Creatinine (units (unknown) date) Ratio 11.3 unknown) (unknown) (no (unknown) (unknown) BUN/Creatinine (units (unknown) date) Ratio unknown) (unknown) (no (unknown) (unknown) Baso # (Auto) 100 (units (unknown) date) unknown) (unknown) (no (unknown) (unknown) Baso # (Auto) (units ( unknown) date) unknown) (unknown) (no (unknown) (unknown) Baso % (Auto) 1.3 (units (unknown) date) unknown) (unknown) (no (unknown) (unknown) Baso % (Auto) (units ( unknown) date) unknown) (unknown) (no (unknown) (unknown) Been Physically (units (unknown) date) Hurt or No unknown) (unknown) (no (unknown) (unknown) Blood Pressure (units (unknown) date) 105/80 unknown) (unknown) (no (unknown) (unknown) Blood Pressure (units (unknown) date) 118/81 unknown) (unknown) (no (unknown) (unknown) Blood Pressure (units (unknown) date) 119/94 H unknown) (unknown) (no (unknown) (unknown) Blood Pressure (units (unknown) date) 120/82 unknown) (unknown) (no (unknown) (unknown) Blood Pressure (units (unknown) date) 121/81 135/82 unknown) (unknown) (no (unknown) (unknown) Blood Pressure (units (unknown) date) 122/83 128/79 unknown) (unknown) (no (unknown) (unknown) Blood Pressure (units (unknown) date) 123/79 121/83 unknown) (unknown) (no (unknown) (unknown) Blood Pressure (units (unknown) date) 125/81 127/75 unknown) (unknown) (no (unknown) (unknown) Blood Pressure (units (unknown) date) 125/90 unknown) (unknown) (no (unknown) (unknown) Blood Pressure (units (unknown) date) 129/84 117/83 unknown) (unknown) (no (unknown) (unknown) Blood Pressure (units (unknown) date) 131/75 unknown) (unknown) (no (unknown) (unknown) Blood Pressure (units (unknown) date) 131/85 153/82 H unknown) (unknown) (no (unknown) (unknown) Blood Pressure (units (unknown) date) 132/84 136/88 unknown) (unknown) (no (unknown) (unknown) Blood Pressure (units (unknown) date) 134/102 H unknown) (unknown) (no (unknown) (unknown) Blood Pressure (units (unknown) date) 134/82 unknown) (unknown) (no (unknown) (unknown) Blood Pressure (units (unknown) date) 134/87 unknown) (unknown) (no (unknown) (unknown) Blood Pressure (units (unknown) date) 136/92 H unknown) (unknown) (no (unknown) (unknown) Blood Pressure (units (unknown) date) 140/80 unknown) (unknown) (no (unknown) (unknown) Blood Pressure (units (unknown) date) 140/92 H unknown) (unknown) (no (unknown) (unknown) Blood Pressure (units (unknown) date) 141/93 H 137/96 H unknown) (unknown) (no (unknown) (unknown) Blood Pressure (units (unknown) date) 143/81 H 128/82 unknown) (unknown) (no (unknown) (unknown) Blood Pressure (units (unknown) date) 148/92 H unknown) (unknown) (no (unknown) (unknown) Blood Pressure (units (unknown) date) 148/93 H unknown) (unknown) (no (unknown) (unknown) Blood Pressure (units (unknown) date) 150/90 H 151/97 H unknown) (unknown) (no (unknown) (unknown) Blood Pressure (units (unknown) date) 150/97 H 152/86 H unknown) (unknown) (no (unknown) (unknown) CK-MB (CK-2) Rel (units (unknown) date) Index TNP unknown) (unknown) (no (unknown) (unknown) CK-MB (CK-2) Rel (units (unknown) date) Index unknown) (unknown) (no (unknown) (unknown) CK-MB (CK-2) TNP (units (unknown) date) unknown) (unknown) (no (unknown) (unknown) CK-MB (CK-2) (units (u nknown) date) unknown) (unknown) (no (unknown) (unknown) COVID PCR: (units (unk nown) date) Negative unknown) (unknown) (no (unknown) (unknown) Calcium 9.0 (units (un known) date) unknown) (unknown) (no (unknown) (unknown) Calcium (units (unkno wn) date) unknown) (unknown) (no (unknown) (unknown) Carbon Dioxide 23 (units (unknown) date) unknown) (unknown) (no (unknown) (unknown) Carbon Dioxide (units (unknown) date) unknown) (unknown) (no (unknown) (unknown) Cardio: Regular (units (unknown) date) rate and irregular unknown) rhythm without no carotid bruit, no cardiac (unknown) (no (unknown) (unknown) Chest x-ray (units (un known) date) radiology noted unknown) was a poor exam, document abnormal cardiopulmonary (unknown) (no (unknown) (unknown) Chest: Breathing (units (unknown) date) without nasal unknown) flaring, retractions, or tachypneic labored (unknown) (no (unknown) (unknown) Chief complaint: (units (unknown) date) Back pain unknown) (unknown) (no (unknown) (unknown) Chloride 106 (units (u nknown) date) unknown) (unknown) (no (unknown) (unknown) Chloride (units (unkno wn) date) unknown) (unknown) (no (unknown) (unknown) Chronic (units (unkno wn) date) anticoagulation unknown) (unknown) (no (unknown) (unknown) Code status: Full (units (unknown) date) unknown) (unknown) (no (unknown) (unknown) Complex-Vitamin (units (unknown) date) B12 tablet) unknown) (unknown) (no (unknown) (unknown) Creatinine 0.80 (units (unknown) date) unknown) (unknown) (no (unknown) (unknown) Creatinine (units (unk nown) date) unknown) (unknown) (no (unknown) (unknown) Critical Care (units ( unknown) date) time: unknown) (unknown) (no (unknown) (unknown) : 1935 (units (unknown) date) Acct:[id number] unknown) (unknown) (no (unknown) (unknown) DVT/VTE (units (unkno wn) date) prophylaxis: unknown) Patient on Xarelto, SCDs only (unknown) (no (unknown) (unknown) Date Patient (units (u nknown) date) Seen: 10/24/22 unknown) (unknown) (no (unknown) (unknown) Date of Service: (units (unknown) date) 10/24/22 unknown) (unknown) (no (unknown) (unknown) Disposition: (units (u nknown) date) Patient admitted unknown) to acute care for AFib with RVR, now in sinus (unknown) (no (unknown) (unknown) Dr. Villar in the (units (unknown) date) ED noted a unknown) possible developing ileus, will improve bowel (unknown) (no (unknown) (unknown) ED noted a (units (unk nown) date) possible unknown) developing ileus, but no documented findings on imaging at (unknown) (no (unknown) (unknown) Environment (units (un known) date) unknown) (unknown) (no (unknown) (unknown) Eos # (Auto) 200 (units (unknown) date) unknown) (unknown) (no (unknown) (unknown) Eos # (Auto) (units (u nknown) date) unknown) (unknown) (no (unknown) (unknown) Eos % (Auto) 2.1 (units (unknown) date) unknown) (unknown) (no (unknown) (unknown) Eos % (Auto) (units (u nknown) date) unknown) (unknown) (no (unknown) (unknown) Estimated GFR > (units (unknown) date) 60 unknown) (unknown) (no (unknown) (unknown) Estimated GFR (units ( unknown) date) unknown) (unknown) (no (unknown) (unknown) Exam Narrative: (units (unknown) date) unknown) (unknown) (no (unknown) (unknown) Exam (units (unkno wn) date) unknown) (unknown) (no (unknown) (unknown) Family + Social (units (unknown) date) History unknown) (unknown) (no (unknown) (unknown) Family History (units (unknown) date) (Reviewed 10/25/22 unknown) @ 04:01 by Ana Maria Ortega [facility]) (unknown) (no (unknown) (unknown) Father (units (unknown) date) No problems noted. unknown) (unknown) (no (unknown) (unknown) Feels Safe in (units ( unknown) date) Current Yes unknown) (unknown) (no (unknown) (unknown) General: Patient (units (unknown) date) appears unknown) well-nourished, elderly male, in no pain without (unknown) (no (unknown) (unknown) Globulin 4.2 H (units (unknown) date) unknown) (unknown) (no (unknown) (unknown) Globulin (units (unkno wn) date) unknown) (unknown) (no (unknown) (unknown) Glucose 89 (units (unk nown) date) unknown) (unknown) (no (unknown) (unknown) Glucose (units (unkno wn) date) unknown) (unknown) (no (unknown) (unknown) HEENT: (units (unkno wn) date) Normocephalic, unknown) atraumatic, extraocular muscles intact, oral pharynx is (unknown) (no (unknown) (unknown) Hct 45.9 (units (unkno wn) date) unknown) (unknown) (no (unknown) (unknown) Hct (units (unkno wn) date) unknown) (unknown) (no (unknown) (unknown) Hgb 15.6 (units (unkno wn) date) unknown) (unknown) (no (unknown) (unknown) Hgb (units (unkno wn) date) unknown) (unknown) (no (unknown) (unknown) History + (units (unkn own) date) Physical Report unknown) (unknown) (no (unknown) (unknown) History of (units (unk nown) date) Present Illness unknown) (unknown) (no (unknown) (unknown) 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 (unknown) (no (unknown) (unknown) History (units (unkno wn) date) unknown) (unknown) (no (unknown) (unknown) Home Medications (units (unknown) date) and Allergies unknown) (unknown) (no (unknown) (unknown) Home Medications (units (unknown) date) unknown) (unknown) (no (unknown) (unknown) I have personally (units (unknown) date) reviewed patient's unknown) chart notes from PCP, specialists, (unknown) (no (unknown) (unknown) I have utilized (units (unknown) date) all available unknown) immediate resources to obtain, update, or review (unknown) (no (unknown) (unknown) I spent a total (units (unknown) date) of [] minutes of unknown) critical care time on this patient's care (unknown) (no (unknown) (unknown) INR 1.5 H (units (unkn own) date) unknown) (unknown) (no (unknown) (unknown) INR (units (unkno wn) date) unknown) (unknown) (no (unknown) (unknown) [facility] (units (unknown) date) [address] [place] [address] unknown) [place] [address] (unknown) (no (unknown) (unknown) Nicolas Torrez (units (unknown) date) 86-year-old male unknown) slightly poor historian with history of AFib on (unknown) (no (unknown) (unknown) 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 (unknown) (no (unknown) (unknown) L1-L4, hepatic (units (unknown) date) steatosis, noted unknown) gallstones nonobstructing, cholelithiasis, (unknown) (no (unknown) (unknown) Laboratory (units (unk nown) date) Results - last 24 unknown) hr (unknown) (no (unknown) (unknown) Labs (units (unkno wn) date) unknown) (unknown) (no (unknown) (unknown) Labs: (units (unkno wn) date) unknown) (unknown) (no (unknown) (unknown) Lipase 169 (units (unk nown) date) unknown) (unknown) (no (unknown) (unknown) Lipase (units (unkno wn) date) unknown) (unknown) (no (unknown) (unknown) Lungs: (units (unkno wn) date) Auscultation of unknown) all lung stock are clear without adventitious sounds, (unknown) (no (unknown) (unknown) Lymph # (Auto) (units (unknown) date) 2300 unknown) (unknown) (no (unknown) (unknown) Lymph # (Auto) (units (unknown) date) unknown) (unknown) (no (unknown) (unknown) Lymph % (Auto) (units (unknown) date) 22.0 L unknown) (unknown) (no (unknown) (unknown) Lymph % (Auto) (units (unknown) date) unknown) (unknown) (no (unknown) (unknown) MCH 33.9 (units (unkno wn) date) unknown) (unknown) (no (unknown) (unknown) MCH (units (unkno wn) date) unknown) (unknown) (no (unknown) (unknown) MCHC 34.1 (units (unkn own) date) unknown) (unknown) (no (unknown) (unknown) MCHC (units (unkno wn) date) unknown) (unknown) (no (unknown) (unknown) MCV 99.4 (units (unkno wn) date) unknown) (unknown) (no (unknown) (unknown) MCV (units (unkno wn) date) unknown) (unknown) (no (unknown) (unknown) Magnesium 1.9 (units ( unknown) date) unknown) (unknown) (no (unknown) (unknown) Magnesium (units (unkn own) date) unknown) (unknown) (no (unknown) (unknown) Medical History (units (unknown) date) (Updated 10/25/22 unknown) @ 04:00 by ALESSIO Mercado) (unknown) (no (unknown) (unknown) Medication (units (unk nown) date) Instructions unknown) Recorded Confirmed Type (unknown) (no (unknown) (unknown) Meds (units (unkno wn) date) unknown) (unknown) (no (unknown) (unknown) Brule # (Auto) (units ( unknown) date) 1100 H unknown) (unknown) (no (unknown) (unknown) Brule # (Auto) (units ( unknown) date) unknown) (unknown) (no (unknown) (unknown) Brule % (Auto) (units ( unknown) date) 11.0 unknown) (unknown) (no (unknown) (unknown) Brule % (Auto) (units ( unknown) date) unknown) (unknown) (no (unknown) (unknown) Mother (units (unknown) date) Cancer unknown) (unknown) (no (unknown) (unknown) Multiple lumbar (units (unknown) date) compression unknown) fractures L1-L4, hepatic steatosis, noted gallstones (unknown) (no (unknown) (unknown) Musculoskeletal: (units (unknown) date) Muscle strength unknown) and tone appear equal within normal limits for (unknown) (no (unknown) (unknown) Narrative (units (unkn own) date) unknown) (unknown) (no (unknown) (unknown) Narrative: (units (unk nown) date) unknown) (unknown) (no (unknown) (unknown) Negative for JVD (units (unknown) date) unknown) (unknown) (no (unknown) (unknown) Neuro: Alert and (units (unknown) date) orientated x3, unknown) sensation to touch intact, no obvious gross (unknown) (no (unknown) (unknown) Neut # (Auto) (units ( unknown) date) 6500 unknown) (unknown) (no (unknown) (unknown) Neut # (Auto) (units ( unknown) date) unknown) (unknown) (no (unknown) (unknown) Neut % (Auto) (units ( unknown) date) 63.6 unknown) (unknown) (no (unknown) (unknown) Neut % (Auto) (units ( unknown) date) unknown) (unknown) (no (unknown) (unknown) No Known Drug (units ( unknown) date) Allergies Allergy unknown) Verified 10/24/22 21:16 (unknown) (no (unknown) (unknown) Objective (units (unkn own) date) unknown) (unknown) (no (unknown) (unknown) On admit patient (units (unknown) date) is stable temp unknown) 98.2?, BP 140/80, HR 90 sinus rhythm, RR 15, O2 (unknown) (no (unknown) (unknown) Osteoporosis (units (u nknown) date) unknown) (unknown) (no (unknown) (unknown) Oxygen Delivery (units (unknown) date) Method Room Air unknown) (unknown) (no (unknown) (unknown) Oxygen Delivery (units (unknown) date) Method unknown) (unknown) (no (unknown) (unknown) PT 17.4 H (units (unkn own) date) unknown) (unknown) (no (unknown) (unknown) PT (units (unkno wn) date) unknown) (unknown) (no (unknown) (unknown) Patient History (units (unknown) date) unknown) (unknown) (no (unknown) (unknown) Patient's son (units ( unknown) date) lives in [place] unknown) [place], and has a full-time in-house (unknown) (no (unknown) (unknown) Patient: (units (unkno wn) date) Nicolas Neely unknown) MR#: [id number] (unknown) (no (unknown) (unknown) Plt Count 218 (units ( unknown) date) unknown) (unknown) (no (unknown) (unknown) Plt Count (units (unkn own) date) unknown) (unknown) (no (unknown) (unknown) Potassium 3.8 (units ( unknown) date) unknown) (unknown) (no (unknown) (unknown) Potassium (units (unkn own) date) unknown) (unknown) (no (unknown) (unknown) Provider: (units (unkn own) date) Ana Maria Ortega unknown) 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 (unknown) (no (unknown) (unknown) Psych: Patient (units (unknown) date) has a well-kept unknown) appearance, appropriate affect, mental status (unknown) (no (unknown) (unknown) Pulse Oximetry 94 (units (unknown) date) unknown) (unknown) (no (unknown) (unknown) Pulse Oximetry 95 (units (unknown) date) 95 unknown) (unknown) (no (unknown) (unknown) Pulse Oximetry 95 (units (unknown) date) 96 unknown) (unknown) (no (unknown) (unknown) Pulse Oximetry 95 (units (unknown) date) unknown) (unknown) (no (unknown) (unknown) Pulse Oximetry 96 (units (unknown) date) 95 unknown) (unknown) (no (unknown) (unknown) Pulse Oximetry 96 (units (unknown) date) 97 unknown) (unknown) (no (unknown) (unknown) Pulse Oximetry 96 (units (unknown) date) unknown) (unknown) (no (unknown) (unknown) Pulse Oximetry 97 (units (unknown) date) 97 unknown) (unknown) (no (unknown) (unknown) Pulse Oximetry 98 (units (unknown) date) 98 unknown) (unknown) (no (unknown) (unknown) Pulse Oximetry 98 (units (unknown) date) 99 unknown) (unknown) (no (unknown) (unknown) Pulse Oximetry 98 (units (unknown) date) unknown) (unknown) (no (unknown) (unknown) Pulse Oximetry 99 (units (unknown) date) 98 unknown) (unknown) (no (unknown) (unknown) Pulse Oximetry 99 (units (unknown) date) unknown) (unknown) (no (unknown) (unknown) Pulse Rate 133 H (units (unknown) date) unknown) (unknown) (no (unknown) (unknown) Pulse Rate 135 H (units (unknown) date) 118 H unknown) (unknown) (no (unknown) (unknown) Pulse Rate 135 H (units (unknown) date) 130 H unknown) (unknown) (no (unknown) (unknown) Pulse Rate 136 H (units (unknown) date) 131 H unknown) (unknown) (no (unknown) (unknown) Pulse Rate 138 H (units (unknown) date) 140 H unknown) (unknown) (no (unknown) (unknown) Pulse Rate 143 H (units (unknown) date) 136 H unknown) (unknown) (no (unknown) (unknown) Pulse Rate 85 86 (units (unknown) date) unknown) (unknown) (no (unknown) (unknown) Pulse Rate 85 (units ( unknown) date) unknown) (unknown) (no (unknown) (unknown) Pulse Rate 86 (units ( unknown) date) unknown) (unknown) (no (unknown) (unknown) Pulse Rate 87 84 (units (unknown) date) unknown) (unknown) (no (unknown) (unknown) Pulse Rate 87 89 (units (unknown) date) unknown) (unknown) (no (unknown) (unknown) Pulse Rate 88 89 (units (unknown) date) unknown) (unknown) (no (unknown) (unknown) Pulse Rate 90 85 (units (unknown) date) unknown) (unknown) (no (unknown) (unknown) Pulse Rate 90 91 (units (unknown) date) H unknown) (unknown) (no (unknown) (unknown) Pulse Rate 90 (units ( unknown) date) unknown) (unknown) (no (unknown) (unknown) Pulse Rate 91 H (units (unknown) date) 103 H unknown) (unknown) (no (unknown) (unknown) Pulse Rate 91 H (units (unknown) date) 90 unknown) (unknown) (no (unknown) (unknown) Pulse Rate 91 H (units (unknown) date) unknown) (unknown) (no (unknown) (unknown) Pulse Rate 92 H (units (unknown) date) 90 unknown) (unknown) (no (unknown) (unknown) Pulse Rate 92 H (units (unknown) date) unknown) (unknown) (no (unknown) (unknown) Pulse Rate 93 H (units (unknown) date) unknown) (unknown) (no (unknown) (unknown) RBC 4.62 (units (unkno wn) date) unknown) (unknown) (no (unknown) (unknown) RBC (units (unkno wn) date) unknown) (unknown) (no (unknown) (unknown) RDW 14.5 (units (unkno wn) date) unknown) (unknown) (no (unknown) (unknown) RDW (units (unkno wn) date) unknown) (unknown) (no (unknown) (unknown) Respiratory Rate (units (unknown) date) 11 L 17 unknown) (unknown) (no (unknown) (unknown) Respiratory Rate (units (unknown) date) 11 L unknown) (unknown) (no (unknown) (unknown) Respiratory Rate (units (unknown) date) 13 10 L unknown) (unknown) (no (unknown) (unknown) Respiratory Rate (units (unknown) date) 14 14 unknown) (unknown) (no (unknown) (unknown) Respiratory Rate (units (unknown) date) 14 21 unknown) (unknown) (no (unknown) (unknown) Respiratory Rate (units (unknown) date) 14 unknown) (unknown) (no (unknown) (unknown) Respiratory Rate (units (unknown) date) 15 13 unknown) (unknown) (no (unknown) (unknown) Respiratory Rate (units (unknown) date) 15 15 unknown) (unknown) (no (unknown) (unknown) Respiratory Rate (units (unknown) date) 15 16 unknown) (unknown) (no (unknown) (unknown) Respiratory Rate (units (unknown) date) 15 22 unknown) (unknown) (no (unknown) (unknown) Respiratory Rate (units (unknown) date) 15 unknown) (unknown) (no (unknown) (unknown) Respiratory Rate (units (unknown) date) 16 17 unknown) (unknown) (no (unknown) (unknown) Respiratory Rate (units (unknown) date) 16 unknown) (unknown) (no (unknown) (unknown) Respiratory Rate (units (unknown) date) 17 15 unknown) (unknown) (no (unknown) (unknown) Respiratory Rate (units (unknown) date) 17 unknown) (unknown) (no (unknown) (unknown) Respiratory Rate (units (unknown) date) 18 12 unknown) (unknown) (no (unknown) (unknown) Respiratory Rate (units (unknown) date) 18 unknown) (unknown) (no (unknown) (unknown) Respiratory Rate (units (unknown) date) 19 22 unknown) (unknown) (no (unknown) (unknown) Respiratory Rate (units (unknown) date) 20 13 unknown) (unknown) (no (unknown) (unknown) Respiratory Rate (units (unknown) date) 20 unknown) (unknown) (no (unknown) (unknown) Respiratory Rate (units (unknown) date) 21 11 L unknown) (unknown) (no (unknown) (unknown) Respiratory Rate (units (unknown) date) 23 15 unknown) (unknown) (no (unknown) (unknown) Result Diagrams: (units (unknown) date) unknown) (unknown) (no (unknown) (unknown) Review of Systems (units (unknown) date) unknown) (unknown) (no (unknown) (unknown) SARS-CoV-2 (PCR) (units (unknown) date) Negative unknown) (unknown) (no (unknown) (unknown) SARS-CoV-2 (PCR) (units (unknown) date) unknown) (unknown) (no (unknown) (unknown) Safety + (units (unkno wn) date) Behavioral: unknown) (unknown) (no (unknown) (unknown) Signed By: (units (unk nown) date) unknown) (unknown) (no (unknown) (unknown) Skin: Warm dry (units (unknown) date) and intact without unknown) rashes, ulcerations or petechiae. (unknown) (no (unknown) (unknown) Smoking Status (units (unknown) date) Never smoker unknown) (unknown) (no (unknown) (unknown) Social History: (units (unknown) date) unknown) (unknown) (no (unknown) (unknown) Sodium 139 (units (unk nown) date) unknown) (unknown) (no (unknown) (unknown) Sodium (units (unkno wn) date) unknown) (unknown) (no (unknown) (unknown) Surgical History (units (unknown) date) (Updated 10/25/22 unknown) @ 04:00 by Ana Maria Ortega [facility]) (unknown) (no (unknown) (unknown) Surrogate (units (unkn own) date) decision maker: unknown) Son, patient also has a full-time caregiver Davonte (unknown) (no (unknown) (unknown) Temperature 98.2 (units (unknown) date) F unknown) (unknown) (no (unknown) (unknown) Temperature (units (un known) date) unknown) (unknown) (no (unknown) (unknown) The patient is at (units (unknown) date) much higher risk unknown) for medical and surgical complications (unknown) (no (unknown) (unknown) Threatened By a (units (unknown) date) Person unknown) (unknown) (no (unknown) (unknown) Time Patient (units (u nknown) date) Seen: 22:04 unknown) (unknown) (no (unknown) (unknown) Time Spent With (units (unknown) date) Patient unknown) (unknown) (no (unknown) (unknown) Tobacco + (units (unkn own) date) Substance use: unknown) (unknown) (no (unknown) (unknown) Total Bilirubin (units (unknown) date) 1.1 unknown) (unknown) (no (unknown) (unknown) Total Bilirubin (units (unknown) date) unknown) (unknown) (no (unknown) (unknown) Total Creatine (units (unknown) date) Kinase < 20 L unknown) (unknown) (no (unknown) (unknown) Total Creatine (units (unknown) date) Kinase unknown) (unknown) (no (unknown) (unknown) Total Protein 7.9 (units (unknown) date) unknown) (unknown) (no (unknown) (unknown) Total Protein (units ( unknown) date) unknown) (unknown) (no (unknown) (unknown) Troponin I < (units (u nknown) date) 0.012 unknown) (unknown) (no (unknown) (unknown) Troponin I (units (unk nown) date) unknown) (unknown) (no (unknown) (unknown) Vital Signs (units (un known) date) unknown) (unknown) (no (unknown) (unknown) WBC 10.3 (units (unkno wn) date) unknown) (unknown) (no (unknown) (unknown) WBC (units (unkno wn) date) unknown) (unknown) (no (unknown) (unknown) Xarelto for many (units (unknown) date) years, pacemaker unknown) placement for sick sinus syndrome, history of (unknown) (no (unknown) (unknown) Xarelto, multiple (units (unknown) date) healing lumbar unknown) compression fractures, bilateral rib fractures (unknown) (no (unknown) (unknown) Xarelto, multiple (units (unknown) date) healing lumbar unknown) compression fractures, bilateral rib fractures, (unknown) (no (unknown) (unknown) [Embedded Image (units (unknown) date) Not Available] unknown) (unknown) (no (unknown) (unknown) ability to (units (unk nown) date) function home, unknown) safety, and manage ADLs. This patient requires acute (unknown) (no (unknown) (unknown) aches, chills, (units (unknown) date) abdominal pain, unknown) nausea, vomiting, diarrhea, urinary symptoms, (unknown) (no (unknown) (unknown) age, no obvious (units (unknown) date) deformity, unknown) crepitus, effusions, cyanosis, clubbing or edema (unknown) (no (unknown) (unknown) alcohol intake (units (unknown) date) frequency unknown) holiday/special occasion (unknown) (no (unknown) (unknown) and continues to (units (unknown) date) be in sinus unknown) rhythm. No WBC, mono 11,000. Stable electrolytes (unknown) (no (unknown) (unknown) are present in (units (unknown) date) all 4 quadrants unknown) without guarding or rebound, no CVA tenderness. (unknown) (no (unknown) (unknown) arousable. In ED (units (unknown) date) patient was in unknown) AFib with RVR heart rates 143-30, and 2 (unknown) (no (unknown) (unknown) as mortality and (units (unknown) date) morbidity as well unknown) as impaired wound healing from multiple (unknown) (no (unknown) (unknown) at rest with no (units (unknown) date) movement in bed. unknown) Patient denies headache, changes in vision, (unknown) (no (unknown) (unknown) attitude thought (units (unknown) date) context and unknown) judgment are appropriate for age. (unknown) (no (unknown) (unknown) because of age, (units (unknown) date) chronic unknown) anticoagulation, atrial fibrillation with RVR, (unknown) (no (unknown) (unknown) bimatoprost 0.01 (units (unknown) date) % eye drops 1 drp unknown) ophthalmic (eye) DAILY 10/24/22 10/24/22 (unknown) (no (unknown) (unknown) bupropion HCl 150 (units (unknown) date) mg tablet,12 hr unknown) 150 mg PO BID 10/24/22 10/24/22 History (unknown) (no (unknown) (unknown) capsule,extended (units (unknown) date) release 24 hr unknown) (unknown) (no (unknown) (unknown) care inpatient (units ( unknown) date) hospital unknown) management for AFib RVR on Xarelto, sick sinus syndrome, (unknown) (no (unknown) (unknown) caregiver Davonte. (units (unknown) date) unknown) (unknown) (no (unknown) (unknown) clavicle (units (unkno wn) date) fracture. unknown) (unknown) (no (unknown) (unknown) clear and mucous (units (unknown) date) membranes are unknown) moist. Neck is supple and symmetric, trachea is (unknown) (no (unknown) (unknown) colonic (units (unkno wn) date) diverticulosis. unknown) (unknown) (no (unknown) (unknown) comparison for (units (unknown) date) labs diagnostics unknown) or EKG in system. CT of chest abdomen pelvis: (unknown) (no (unknown) (unknown) complications (units ( unknown) date) because of the unknown) mild malnutrition in relation to acute atrial (unknown) (no (unknown) (unknown) compression (units (un known) date) fractures, lumbar, unknown) clavicle-left, ribs-bilaterally, with (unknown) (no (unknown) (unknown) continues to be (units (unknown) date) in sinus rhythm. unknown) No WBC, mono 11,000. Stable electrolytes (unknown) (no (unknown) (unknown) cough, (units (unkno wn) date) congestion, ear unknown) eye discomfort, upper respiratory symptoms, fever, body (unknown) (no (unknown) (unknown) diagnostic (units (unk nown) date) imaging, and unknown) laboratory results. (unknown) (no (unknown) (unknown) diltiazem HCl 240 (units (unknown) date) mg 240 mg PO DAILY unknown) 10/24/22 10/24/22 History (unknown) (no (unknown) (unknown) discharge (units (unkn own) date) unknown) (unknown) (no (unknown) (unknown) documented. (units (un known) date) unknown) (unknown) (no (unknown) (unknown) does not feel (units ( unknown) date) that the patient unknown) requires surgical intervention, will evaluate (unknown) (no (unknown) (unknown) dorzolamide 22.3 (units (unknown) date) mg-timolol 6.8 1 unknown) drp ophthalmic (eye) DAILY 10/24/22 10/24/22 (unknown) (no (unknown) (unknown) emptying but no (units (unknown) date) findings on unknown) imaging at this time. Dr. Sebastian jones consulted (unknown) (no (unknown) (unknown) episodes of (units (un known) date) V-tach 8 attend be unknown) runs. Was successfully cardioverted and (unknown) (no (unknown) (unknown) evaluated in (units (u nknown) date) imaging completed unknown) prior at another facility, and has seen Dr. Norman (unknown) (no (unknown) (unknown) evaluation of (units ( unknown) date) pacemaker unknown) function. (unknown) (no (unknown) (unknown) factors increase (units (unknown) date) the difficulty and unknown) complexity of medical and surgical (unknown) (no (unknown) (unknown) fatigue, and (units (u nknown) date) worsening severe unknown) midline low back pain, that was impairing his (unknown) (no (unknown) (unknown) fibrillation with (units (unknown) date) RVR, ventricular unknown) tachycardia. This increases the difficulty (unknown) (no (unknown) (unknown) finasteride 5 mg (units (unknown) date) tablet 5 mg PO unknown) DAILY 10/24/22 10/24/22 History (unknown) (no (unknown) (unknown) for labs (units (unkno wn) date) diagnostics or EKG unknown) in system. (unknown) (no (unknown) (unknown) for multiple (units (u nknown) date) falls and gait unknown) instability, and dietary consult for BMI 22.8. (unknown) (no (unknown) (unknown) fractures due to (units (unknown) date) 2 ground level unknown) falls. presented to ED for worsening episodes (unknown) (no (unknown) (unknown) fractures, (units (unk nown) date) clavicle fracture, unknown) bilateral rib fractures, resulting in impaired (unknown) (no (unknown) (unknown) fully empties (units ( unknown) date) bladder, unknown) hematemesis, hematuria, changes in bowel, melena, recent (unknown) (no (unknown) (unknown) global weakness (units (unknown) date) deconditioning and unknown) increased falls. (unknown) (no (unknown) (unknown) ground level fall (units (unknown) date) September of 2022. unknown) Presented to ED due to increasing SOB, (unknown) (no (unknown) (unknown) in complexity of (units (unknown) date) medical management unknown) and increases the chances poor outcomes such (unknown) (no (unknown) (unknown) inability to (units (u nknown) date) function at home unknown) due to pain. (unknown) (no (unknown) (unknown) intake and (units (unk nown) date) nutrition. unknown) (unknown) (no (unknown) (unknown) intermittent, (units ( unknown) date) acute on chronic, unknown) present on admission- resolved (unknown) (no (unknown) (unknown) intervention, (units ( unknown) date) will evaluate unknown) patient tomorrow. (unknown) (no (unknown) (unknown) interventions and (units (unknown) date) increases the unknown) chances of poor outcomes such as morbidity and (unknown) (no (unknown) (unknown) left medial (units (un known) date) clavicle fracture unknown) unstable gait frequent falls. Dr. Villar in the (unknown) (no (unknown) (unknown) malnutrition will (units (unknown) date) impact his unknown) oxygenation, which increases the risk of (unknown) (no (unknown) (unknown) medication (units (unk nown) date) changes, exposure unknown) too or illness. (unknown) (no (unknown) (unknown) medication. At the (units (unknown) date) time of admit unknown) patient was resting comfortably denied any pain (unknown) (no (unknown) (unknown) mg/mL eye drops (units (unknown) date) unknown) (unknown) (no (unknown) (unknown) midline, no (units (un known) date) adenopathy, no unknown) thyroid enlargement, nontender, no masses palpated. (unknown) (no (unknown) (unknown) mobility, safety, (units (unknown) date) due to escalating unknown) pain after failing outpatient management. (unknown) (no (unknown) (unknown) mortality. The (units (unknown) date) patient's atrial unknown) fibrillation with RVR, and ventricular (unknown) (no (unknown) (unknown) movement and no (units (unknown) date) distress at this unknown) time. (unknown) (no (unknown) (unknown) multilevel (units (unkn own) date) osteopenic unknown) compression fractures with retropulsed fracture segment at (unknown) (no (unknown) (unknown) multiple lumbar (units (unknown) date) compression unknown) fractures, clavicle fracture, rib fractures due to a (unknown) (no (unknown) (unknown) negative, initial (units (unknown) date) EKG in ED AFib unknown) with a rate of 136, post cardioversion sinus (unknown) (no (unknown) (unknown) negative, (units (unkn own) date) unknown) (unknown) (no (unknown) (unknown) nonobstructing, (units (unknown) date) cholelithiasis, unknown) colonic diverticulosis. Patient was seen (unknown) (no (unknown) (unknown) observe deficits (units (unknown) date) noted of cranial unknown) nerves. (unknown) (no (unknown) (unknown) of shortness of (units (unknown) date) breath and fatigue unknown) but primarily due to severe midline low back (unknown) (no (unknown) (unknown) omeprazole 20 mg (units (unknown) date) capsule,delayed 20 unknown) mg PO DAILY 10/24/22 10/24/22 History (unknown) (no (unknown) (unknown) ortho regarding (units (unknown) date) multiple unknown) fractures, is scheduled for follow-up on 10/25/2021. (unknown) (no (unknown) (unknown) osteoporosis, (units ( unknown) date) acute on chronic, unknown) present on admission (unknown) (no (unknown) (unknown) pain occasional (units (unknown) date) shortness of unknown) breath which is normal for him.? In ED he had (unknown) (no (unknown) (unknown) pain. Which is (units (unknown) date) now impacting his unknown) ability to function home, safety, and manage (unknown) (no (unknown) (unknown) palpation and (units ( unknown) date) movement. Intact unknown) radial and pedal pulses are normal. (unknown) (no (unknown) (unknown) pathologic (units (unk nown) date) osteopathic, unknown) fractures and immune suppression. Also contributing to (unknown) (no (unknown) (unknown) patient tomorrow. (units (unknown) date) unknown) (unknown) (no (unknown) (unknown) pneumonia. (units (unk nown) date) Patient admitted unknown) for AFib with RVR, pacer on Xarelto, ventricular (unknown) (no (unknown) (unknown) potassium 3.8, (units (unknown) date) Mag 1.9, PT 17.4, unknown) INR 1.5, initial troponin negative, COVID (unknown) (no (unknown) (unknown) present. Severe (units (unknown) date) significant pain unknown) midline lumbar, paraspinal tenderness with (unknown) (no (unknown) (unknown) process but (units (un known) date) nothing further unknown) noted. Patient admitted for AFib with RVR, pacer on (unknown) (no (unknown) (unknown) process but (units (un known) date) nothing further unknown) noted. (unknown) (no (unknown) (unknown) pulsations (units (unk nown) date) present. unknown) (unknown) (no (unknown) (unknown) register or (units (unk nown) date) acknowledge the unknown) atrial fibrillation with RVR, the runs of V-tach nor (unknown) (no (unknown) (unknown) release (units (unkno wn) date) unknown) (unknown) (no (unknown) (unknown) requires surgical (units (unknown) date) intervention, will unknown) evaluate tomorrow. (unknown) (no (unknown) (unknown) rhythm with sinus (units (unknown) date) arrhythmia rate of unknown) [address] and T-wave changes, no (unknown) (no (unknown) (unknown) rhythm, echo (units (u nknown) date) tomorrow, pain unknown) control for fractures, ortho consult, PT/OT consult (unknown) (no (unknown) (unknown) rhythm. (units (unkno wn) date) unknown) (unknown) (no (unknown) (unknown) rivaroxaban 20 mg (units (unknown) date) tablet (Xarelto) unknown) 20 mg PO QPM 10/24/22 10/24/22 History (unknown) (no (unknown) (unknown) saturation 98% on (units (unknown) date) room air. In ED unknown) patient was in AFib with RVR heart rates 143 (unknown) (no (unknown) (unknown) saturation 98% on (units (unknown) date) room air. Patient unknown) resting comfortably sleeping bed easily (unknown) (no (unknown) (unknown) saturation 98% on (units (unknown) date) room air. unknown) (unknown) (no (unknown) (unknown) seen 10/07/22 for (units (unknown) date) multiple lumbar unknown) compression fractures, clavicle fracture, rib (unknown) (no (unknown) (unknown) significant pain (units (unknown) date) worse with range unknown) of motion and improves with rest and pain (unknown) (no (unknown) (unknown) sinus arrhythmia (units (unknown) date) rate of 88 unknown) nonspecific ST and T-wave changes, no comparison (unknown) (no (unknown) (unknown) sustained-release (units (unknown) date) unknown) (unknown) (no (unknown) (unknown) tach 8-10 beat (units (unknown) date) runs. Successfully unknown) cardioverted and continues to be in sinus (unknown) (no (unknown) (unknown) tach, was (units (unkn own) date) asymptomatic, and unknown) pacer worked appropriately and resolved to sinus. (unknown) (no (unknown) (unknown) tachycardia (units (un known) date) multiple healing unknown) lumbar compression fractures, and left medial (unknown) (no (unknown) (unknown) tachycardia, (units (u nknown) date) bilateral rib unknown) fractures, left clavicle fracture, as well as mild (unknown) (no (unknown) (unknown) tamsulosin 0.4 mg (units (unknown) date) capsule 0.4 mg PO unknown) BEDTIME 10/24/22 10/24/22 History (unknown) (no (unknown) (unknown) the (units (unkno wn) date) cardioversion-priyank unknown) ent should follow-up with Cardiology upon discharge for (unknown) (no (unknown) (unknown) the patient's (units ( unknown) date) current unknown) medications. (unknown) (no (unknown) (unknown) this time. (units (unknown) date) [facility]) consulted in ED does not feel that the patient (unknown) (no (unknown) (unknown) today; this time (units (unknown) date) is exclusive of unknown) procedural time. (unknown) (no (unknown) (unknown) topical ointment (units (unknown) date) unknown) (unknown) (no (unknown) (unknown) triamcinolone (units ( unknown) date) acetonide 0.1 % 1 unknown) applic topical DAILY PRN Dry Skin 10/24/22 (unknown) (no (unknown) (unknown) ventricular (units (un known) date) tachycardia, unknown) frequent falls, + multiple lumbar compression (unknown) (no (unknown) (unknown) ventricular (units (un known) date) tachycardia, unknown) osteoporosis and continued frequent falls . These (unknown) (no (unknown) (unknown) ventricular (units (un known) date) tachycardia, unknown) osteoporosis, BPH frequent falls, previously imaged (unknown) (no (unknown) (unknown) ventricular (units (un known) date) tachycardia, unknown) osteoporosis, frequent falls, previously seen for (unknown) (no (unknown) (unknown) vitamin B complex (units (unknown) date) (B 1 tab PO DAILY unknown) 10/24/22 10/24/22 History (unknown) (no (unknown) (unknown) wheezes, rhonchi, (units (unknown) date) or rales. unknown) Result panel 270 (unknown) (no date) (unknown) (unknown) > 60 ml/min (unkn own) (unknown) (no date) (unknown) (unknown) > 60 ml/min (unkn own) (unknown) (no date) (unknown) (unknown) 0.05 ng/ml (unkn own) (unknown) (no date) (unknown) (unknown) 0.05 ng/ml (unkn own) (unknown) (no date) (unknown) (unknown) 0.65 mg/dl (unkn own) (unknown) (no date) (unknown) (unknown) 1.8 mg/dl (unkn own) (unknown) (no date) (unknown) (unknown) 104 mg/dl (unkn own) (unknown) (no date) (unknown) (unknown) 104 mg/dl (unkn own) (unknown) (no date) (unknown) (unknown) 107 mmol/l (unkn own) (unknown) (no date) (unknown) (unknown) 127 mg/dl (unkn own) (unknown) (no date) (unknown) (unknown) 127 mg/dl (unkn own) (unknown) (no date) (unknown) (unknown) 13.8 (units unknown) (unknown) (unknown) (no date) (unknown) (unknown) 138 mmol/l (unkn own) (unknown) (no date) (unknown) (unknown) 21 mmol/l (unkn own) (unknown) (no date) (unknown) (unknown) 3.3 mmol/l (unkn own) (unknown) (no date) (unknown) (unknown) 34 mg/dl (unkn own) (unknown) (no date) (unknown) (unknown) 34 mg/dl (unkn own) (unknown) (no date) (unknown) (unknown) 55 mg/dl (unkn own) (unknown) (no date) (unknown) (unknown) 55 mg/dl (unkn own) (unknown) (no date) (unknown) (unknown) 75 mg/dl (unkn own) (unknown) (no date) (unknown) (unknown) 75 mg/dl (unkn own) (unknown) (no date) (unknown) (unknown) 8.3 mg/dl (unkn own) (unknown) (no date) (unknown) (unknown) 9 mg/dl (unkn own) Result panel 271 (unknown) (no (unknown) (unknown) (no value) (units (unk nown) date) unknown) (unknown) (no (unknown) (unknown) ([place]) (units (unkn own) date) unknown) (unknown) (no (unknown) (unknown) (past 8 hours): (units (unknown) date) unknown) (unknown) (no (unknown) (unknown) -10/07/2022 (units (un known) date) advanced imaging unknown) from our facility C-spine and lumbar noting (unknown) (no (unknown) (unknown) -Chest x-ray (units (u nknown) date) radiology noted unknown) was a poor exam, document abnormal cardiopulmonary (unknown) (no (unknown) (unknown) -September 2022: (units (unknown) date) Ground level fall unknown) resulting in multiple pathologic fractures. (unknown) (no (unknown) (unknown) -Dr. Cortes ortho (units (unknown) date) consulted in ED unknown) did not feel that the patient requires surgical (unknown) (no (unknown) (unknown) -In ED patient (units (unknown) date) was in AFib with unknown) RVR heart rates 143-130, and 2 episodes of V (unknown) (no (unknown) (unknown) -Managed (units (unkno wn) date) outpatient Dr. Norman unknown) ortho -scheduled for follow-up on 10/25/2021. (unknown) (no (unknown) (unknown) -On admit patient (units (unknown) date) is stable temp unknown) 98.2?, BP 140/80, HR 90 sinus rhythm, RR 15, O2 (unknown) (no (unknown) (unknown) -On admit: CT of (units (unknown) date) chest abdomen unknown) pelvis: Multiple lumbar compression fractures (unknown) (no (unknown) (unknown) -PT/OT (units (unkno wn) date) evaluation, unknown) patient will likely require rehab or SNF placement on (unknown) (no (unknown) (unknown) -Social (units (unkno wn) date) Determinants of unknown) Health that impact treatment or disposition: age, (unknown) (no (unknown) (unknown) -after arrival on (units (unknown) date) the floor the unknown) patient has demonstrated a couple runs of V (unknown) (no (unknown) (unknown) -as evidence by (units (unknown) date) BMI 22.8 unknown) (unknown) (no (unknown) (unknown) -continue (units (unkn own) date) diltiazem, unknown) finasteride. Holding Xarelto for possibility of surgical (unknown) (no (unknown) (unknown) -continue (units (unkn own) date) omeprazole once no unknown) longer NPO (unknown) (no (unknown) (unknown) -continue (units (unkn own) date) tamsulosin once unknown) cleared by Dr. Sebastian jones (unknown) (no (unknown) (unknown) -dietary consult (units (unknown) date) ordered to unknown) evaluate and implement steps to improve caloric (unknown) (no (unknown) (unknown) -global weakness, (units (unknown) date) deconditioning-lik unknown) thomas degenerative lumbar myelopathy. (unknown) (no (unknown) (unknown) -initial EKG in ED (units (unknown) date) AFib with a rate unknown) of 136, post cardioversion sinus rhythm with (unknown) (no (unknown) (unknown) -initial troponin (units (unknown) date) negative, will unknown) trend (unknown) (no (unknown) (unknown) -it should be (units ( unknown) date) noted that Dr. mendoza) Brianda interrogated the pacemaker which did not (unknown) (no (unknown) (unknown) -ordered ETOH, (units (unknown) date) TSH, free T4, unknown) lipids, BNP, A1c (unknown) (no (unknown) (unknown) -pain management (units (unknown) date) unknown) (unknown) (no (unknown) (unknown) -patient NPO (units (u nknown) date) after midnight, unknown) except medication, hold Xarelto in the event (unknown) (no (unknown) (unknown) -patient's (units (unk nown) date) malnutrition unknown) places them at high risk for medical and surgical (unknown) (no (unknown) (unknown) -placed on (units (unk nown) date) telemedicine unknown) (unknown) (no (unknown) (unknown) -potassium 3.8, (units (unknown) date) Mag 1.9, PT 17.4, unknown) INR 1.5, initial troponin negative, COVID (unknown) (no (unknown) (unknown) -unknown if (units (un known) date) obstructive unknown) (unknown) (no (unknown) (unknown) 10/24/22 10/24/22 (units (unknown) date) 10/24/22 unknown) (unknown) (no (unknown) (unknown) 10/24/22 16:40 (units (unknown) date) unknown) (unknown) (no (unknown) (unknown) 10/24/22 History (units (unknown) date) unknown) (unknown) (no (unknown) (unknown) 10/24/22 (units (unkno wn) date) unknown) (unknown) (no (unknown) (unknown) 10/25/22 0436 (units ( unknown) date) unknown) (unknown) (no (unknown) (unknown) [id number] (units (unkno wn) date) unknown) (unknown) (no (unknown) (unknown) 1. AFib with RVR, (units (unknown) date) acute on chronic, unknown) on Xarelto, ventricular tachycardia, (unknown) (no (unknown) (unknown) 16:14 10/24/22 (units (unknown) date) unknown) (unknown) (no (unknown) (unknown) 16:40 16:40 16:40 (units (unknown) date) unknown) (unknown) (no (unknown) (unknown) 16:51 10/24/22 (units (unknown) date) unknown) (unknown) (no (unknown) (unknown) 16:52 10/24/22 (units (unknown) date) unknown) (unknown) (no (unknown) (unknown) 16:52 (units (unkno wn) date) unknown) (unknown) (no (unknown) (unknown) 16:55 (units (unkno wn) date) unknown) (unknown) (no (unknown) (unknown) 17:00 10/24/22 (units (unknown) date) unknown) (unknown) (no (unknown) (unknown) 17:00 (units (unkno wn) date) unknown) (unknown) (no (unknown) (unknown) 17:16 10/24/22 (units (unknown) date) unknown) (unknown) (no (unknown) (unknown) 17:20 10/24/22 (units (unknown) date) unknown) (unknown) (no (unknown) (unknown) 17:20 (units (unkno wn) date) unknown) (unknown) (no (unknown) (unknown) 17:30 10/24/22 (units (unknown) date) unknown) (unknown) (no (unknown) (unknown) 17:31 10/24/22 (units (unknown) date) unknown) (unknown) (no (unknown) (unknown) 17:31 (units (unkno wn) date) unknown) (unknown) (no (unknown) (unknown) 17:35 10/24/22 (units (unknown) date) unknown) (unknown) (no (unknown) (unknown) 17:35 (units (unkno wn) date) unknown) (unknown) (no (unknown) (unknown) 17:40 10/24/22 (units (unknown) date) unknown) (unknown) (no (unknown) (unknown) 17:45 10/24/22 (units (unknown) date) unknown) (unknown) (no (unknown) (unknown) 17:51 10/24/22 (units (unknown) date) unknown) (unknown) (no (unknown) (unknown) 17:51 (units (unkno wn) date) unknown) (unknown) (no (unknown) (unknown) 17:55 10/24/22 (units (unknown) date) unknown) (unknown) (no (unknown) (unknown) 17:55 (units (unkno wn) date) unknown) (unknown) (no (unknown) (unknown) 18:00 10/24/22 (units (unknown) date) unknown) (unknown) (no (unknown) (unknown) 18:05 10/24/22 (units (unknown) date) unknown) (unknown) (no (unknown) (unknown) 18:05 (units (unkno wn) date) unknown) (unknown) (no (unknown) (unknown) 18:10 10/24/22 (units (unknown) date) unknown) (unknown) (no (unknown) (unknown) 18:10 (units (unkno wn) date) unknown) (unknown) (no (unknown) (unknown) 18:15 10/24/22 (units (unknown) date) unknown) (unknown) (no (unknown) (unknown) 18:20 10/24/22 (units (unknown) date) unknown) (unknown) (no (unknown) (unknown) 18:20 (units (unkno wn) date) unknown) (unknown) (no (unknown) (unknown) 18:25 10/24/22 (units (unknown) date) unknown) (unknown) (no (unknown) (unknown) 18:25 (units (unkno wn) date) unknown) (unknown) (no (unknown) (unknown) 18:30 10/24/22 (units (unknown) date) unknown) (unknown) (no (unknown) (unknown) 19:00 (units (unkno wn) date) unknown) (unknown) (no (unknown) (unknown) 19:07 10/24/22 (units (unknown) date) unknown) (unknown) (no (unknown) (unknown) 19:10 10/24/22 (units (unknown) date) unknown) (unknown) (no (unknown) (unknown) 19:10 (units (unkno wn) date) unknown) (unknown) (no (unknown) (unknown) 19:15 10/24/22 (units (unknown) date) unknown) (unknown) (no (unknown) (unknown) 19:15 (units (unkno wn) date) unknown) (unknown) (no (unknown) (unknown) 19:21 10/24/22 (units (unknown) date) unknown) (unknown) (no (unknown) (unknown) 19:25 10/24/22 (units (unknown) date) unknown) (unknown) (no (unknown) (unknown) 19:25 (units (unkno wn) date) unknown) (unknown) (no (unknown) (unknown) 19:30 10/24/22 (units (unknown) date) unknown) (unknown) (no (unknown) (unknown) 19:30 (units (unkno wn) date) unknown) (unknown) (no (unknown) (unknown) 19:35 10/24/22 (units (unknown) date) unknown) (unknown) (no (unknown) (unknown) 19:40 10/24/22 (units (unknown) date) unknown) (unknown) (no (unknown) (unknown) 19:40 (units (unkno wn) date) unknown) (unknown) (no (unknown) (unknown) 19:45 10/24/22 (units (unknown) date) unknown) (unknown) (no (unknown) (unknown) 19:45 (units (unkno wn) date) unknown) (unknown) (no (unknown) (unknown) 19:50 10/24/22 (units (unknown) date) unknown) (unknown) (no (unknown) (unknown) 19:55 10/24/22 (units (unknown) date) unknown) (unknown) (no (unknown) (unknown) 19:55 (units (unkno wn) date) unknown) (unknown) (no (unknown) (unknown) 2. Unstable gait, (units (unknown) date) frequent GLF unknown) falls, resulting in multiple pathologic (unknown) (no (unknown) (unknown) 20:00 10/24/22 (units (unknown) date) unknown) (unknown) (no (unknown) (unknown) 20:00 (units (unkno wn) date) unknown) (unknown) (no (unknown) (unknown) 20:06 10/24/22 (units (unknown) date) unknown) (unknown) (no (unknown) (unknown) 20:10 10/24/22 (units (unknown) date) unknown) (unknown) (no (unknown) (unknown) 20:10 (units (unkno wn) date) unknown) (unknown) (no (unknown) (unknown) 20:15 10/24/22 (units (unknown) date) unknown) (unknown) (no (unknown) (unknown) 20:15 (units (unkno wn) date) unknown) (unknown) (no (unknown) (unknown) 20:20 10/24/22 (units (unknown) date) unknown) (unknown) (no (unknown) (unknown) 20:30 10/24/22 (units (unknown) date) unknown) (unknown) (no (unknown) (unknown) 20:30 (units (unkno wn) date) unknown) (unknown) (no (unknown) (unknown) 20:45 10/24/22 (units (unknown) date) unknown) (unknown) (no (unknown) (unknown) 20:45 (units (unkno wn) date) unknown) (unknown) (no (unknown) (unknown) 3. Malnutrition, (units (unknown) date) mild, acute on unknown) chronic, present on admission (unknown) (no (unknown) (unknown) 4. BPH, chronic, (units (unknown) date) present on unknown) admission (unknown) (no (unknown) (unknown) 5. GERD, chronic, (units (unknown) date) present on unknown) admission (unknown) (no (unknown) (unknown) ADLs.? He denies (units (unknown) date) any numbness, unknown) tingling, bowel or bladder incontinence, chest (unknown) (no (unknown) (unknown) ALT 27 (units (unkno wn) date) unknown) (unknown) (no (unknown) (unknown) ALT (units (unkno wn) date) unknown) (unknown) (no (unknown) (unknown) APTT 36 (units (unkno wn) date) unknown) (unknown) (no (unknown) (unknown) APTT (units (unkno wn) date) unknown) (unknown) (no (unknown) (unknown) AST 32 (units (unkno wn) date) unknown) (unknown) (no (unknown) (unknown) AST (units (unkno wn) date) unknown) (unknown) (no (unknown) (unknown) Abdomen: Soft (units ( unknown) date) nontender, unknown) negative for organomegaly, or masses. Bowel sounds (unknown) (no (unknown) (unknown) Age/Sex: 86 / M (units (unknown) date) unknown) (unknown) (no (unknown) (unknown) Albumin 3.7 (units (un known) date) unknown) (unknown) (no (unknown) (unknown) Albumin (units (unkno wn) date) unknown) (unknown) (no (unknown) (unknown) Albumin/Globulin (units (unknown) date) Ratio 0.9 L unknown) (unknown) (no (unknown) (unknown) Albumin/Globulin (units (unknown) date) Ratio unknown) (unknown) (no (unknown) (unknown) Alkaline (units (unkno wn) date) Phosphatase 108 unknown) (unknown) (no (unknown) (unknown) Alkaline (units (unkno wn) date) Phosphatase unknown) (unknown) (no (unknown) (unknown) All 12 point (units (un known) date) systems reviewed unknown) with the patient and are negative except otherwise (unknown) (no (unknown) (unknown) Allergies (units (unkn own) date) unknown) (unknown) (no (unknown) (unknown) Allergy/AdvReac (units (unknown) date) Type Severity unknown) Reaction Status Date / Time (unknown) (no (unknown) (unknown) Assessment + Plan (units (unknown) date) narrative: unknown) (unknown) (no (unknown) (unknown) Assessment + Plan (units (unknown) date) unknown) (unknown) (no (unknown) (unknown) BPH (benign (units (un known) date) prostatic unknown) hyperplasia) (unknown) (no (unknown) (unknown) BUN 9 (units (unkno wn) date) unknown) (unknown) (no (unknown) (unknown) BUN (units (unkno wn) date) unknown) (unknown) (no (unknown) (unknown) BUN/Creatinine (units (unknown) date) Ratio 11.3 unknown) (unknown) (no (unknown) (unknown) BUN/Creatinine (units (unknown) date) Ratio unknown) (unknown) (no (unknown) (unknown) Baso # (Auto) 100 (units (unknown) date) unknown) (unknown) (no (unknown) (unknown) Baso # (Auto) (units ( unknown) date) unknown) (unknown) (no (unknown) (unknown) Baso % (Auto) 1.3 (units (unknown) date) unknown) (unknown) (no (unknown) (unknown) Baso % (Auto) (units ( unknown) date) unknown) (unknown) (no (unknown) (unknown) Been Physically (units (unknown) date) Hurt or No unknown) (unknown) (no (unknown) (unknown) Blood Pressure (units (unknown) date) 105/80 unknown) (unknown) (no (unknown) (unknown) Blood Pressure (units (unknown) date) 118/81 unknown) (unknown) (no (unknown) (unknown) Blood Pressure (units (unknown) date) 119/94 H unknown) (unknown) (no (unknown) (unknown) Blood Pressure (units (unknown) date) 120/82 unknown) (unknown) (no (unknown) (unknown) Blood Pressure (units (unknown) date) 121/81 135/82 unknown) (unknown) (no (unknown) (unknown) Blood Pressure (units (unknown) date) 122/83 128/79 unknown) (unknown) (no (unknown) (unknown) Blood Pressure (units (unknown) date) 123/79 121/83 unknown) (unknown) (no (unknown) (unknown) Blood Pressure (units (unknown) date) 125/81 127/75 unknown) (unknown) (no (unknown) (unknown) Blood Pressure (units (unknown) date) 125/90 unknown) (unknown) (no (unknown) (unknown) Blood Pressure (units (unknown) date) 129/84 117/83 unknown) (unknown) (no (unknown) (unknown) Blood Pressure (units (unknown) date) 131/75 unknown) (unknown) (no (unknown) (unknown) Blood Pressure (units (unknown) date) 131/85 153/82 H unknown) (unknown) (no (unknown) (unknown) Blood Pressure (units (unknown) date) 132/84 136/88 unknown) (unknown) (no (unknown) (unknown) Blood Pressure (units (unknown) date) 134/102 H unknown) (unknown) (no (unknown) (unknown) Blood Pressure (units (unknown) date) 134/82 unknown) (unknown) (no (unknown) (unknown) Blood Pressure (units (unknown) date) 134/87 unknown) (unknown) (no (unknown) (unknown) Blood Pressure (units (unknown) date) 136/92 H unknown) (unknown) (no (unknown) (unknown) Blood Pressure (units (unknown) date) 140/80 unknown) (unknown) (no (unknown) (unknown) Blood Pressure (units (unknown) date) 140/92 H unknown) (unknown) (no (unknown) (unknown) Blood Pressure (units (unknown) date) 141/93 H 137/96 H unknown) (unknown) (no (unknown) (unknown) Blood Pressure (units (unknown) date) 143/81 H 128/82 unknown) (unknown) (no (unknown) (unknown) Blood Pressure (units (unknown) date) 148/92 H unknown) (unknown) (no (unknown) (unknown) Blood Pressure (units (unknown) date) 148/93 H unknown) (unknown) (no (unknown) (unknown) Blood Pressure (units (unknown) date) 150/90 H 151/97 H unknown) (unknown) (no (unknown) (unknown) Blood Pressure (units (unknown) date) 150/97 H 152/86 H unknown) (unknown) (no (unknown) (unknown) CK-MB (CK-2) Rel (units (unknown) date) Index TNP unknown) (unknown) (no (unknown) (unknown) CK-MB (CK-2) Rel (units (unknown) date) Index unknown) (unknown) (no (unknown) (unknown) CK-MB (CK-2) TNP (units (unknown) date) unknown) (unknown) (no (unknown) (unknown) CK-MB (CK-2) (units (u nknown) date) unknown) (unknown) (no (unknown) (unknown) COVID PCR: (units (unk nown) date) Negative unknown) (unknown) (no (unknown) (unknown) Calcium 9.0 (units (un known) date) unknown) (unknown) (no (unknown) (unknown) Calcium (units (unkno wn) date) unknown) (unknown) (no (unknown) (unknown) Carbon Dioxide 23 (units (unknown) date) unknown) (unknown) (no (unknown) (unknown) Carbon Dioxide (units (unknown) date) unknown) (unknown) (no (unknown) (unknown) Cardio: Regular (units (unknown) date) rate and irregular unknown) rhythm without no carotid bruit, no cardiac (unknown) (no (unknown) (unknown) Chest x-ray (units (un known) date) radiology noted unknown) was a poor exam, document abnormal cardiopulmonary (unknown) (no (unknown) (unknown) Chest: Breathing (units (unknown) date) without nasal unknown) flaring, retractions, or tachypneic labored (unknown) (no (unknown) (unknown) Chief complaint: (units (unknown) date) Back pain unknown) (unknown) (no (unknown) (unknown) Chloride 106 (units (u nknown) date) unknown) (unknown) (no (unknown) (unknown) Chloride (units (unkno wn) date) unknown) (unknown) (no (unknown) (unknown) Chronic (units (unkno wn) date) anticoagulation unknown) (unknown) (no (unknown) (unknown) Code status: Full (units (unknown) date) unknown) (unknown) (no (unknown) (unknown) Complex-Vitamin (units (unknown) date) B12 tablet) unknown) (unknown) (no (unknown) (unknown) Creatinine 0.80 (units (unknown) date) unknown) (unknown) (no (unknown) (unknown) Creatinine (units (unk nown) date) unknown) (unknown) (no (unknown) (unknown) Critical Care (units ( unknown) date) time: unknown) (unknown) (no (unknown) (unknown) : 1935 (units (unknown) date) Acct:[id number] unknown) (unknown) (no (unknown) (unknown) DVT/VTE (units (unkno wn) date) prophylaxis: unknown) Patient on Xarelto, SCDs only (unknown) (no (unknown) (unknown) Date Patient (units (u nknown) date) Seen: 10/24/22 unknown) (unknown) (no (unknown) (unknown) Date of Service: (units (unknown) date) 10/24/22 unknown) (unknown) (no (unknown) (unknown) Disposition: (units (u nknown) date) Patient admitted unknown) to acute care for AFib with RVR, with runs of V (unknown) (no (unknown) (unknown) ED noted a (units (unk nown) date) possible unknown) developing ileus, but no documented findings on imaging at (unknown) (no (unknown) (unknown) Environment (units (un known) date) unknown) (unknown) (no (unknown) (unknown) Eos # (Auto) 200 (units (unknown) date) unknown) (unknown) (no (unknown) (unknown) Eos # (Auto) (units (u nknown) date) unknown) (unknown) (no (unknown) (unknown) Eos % (Auto) 2.1 (units (unknown) date) unknown) (unknown) (no (unknown) (unknown) Eos % (Auto) (units (u nknown) date) unknown) (unknown) (no (unknown) (unknown) Estimated GFR > (units (unknown) date) 60 unknown) (unknown) (no (unknown) (unknown) Estimated GFR (units ( unknown) date) unknown) (unknown) (no (unknown) (unknown) Exam Narrative: (units (unknown) date) unknown) (unknown) (no (unknown) (unknown) Exam (units (unkno wn) date) unknown) (unknown) (no (unknown) (unknown) Family + Social (units (unknown) date) History unknown) (unknown) (no (unknown) (unknown) Family History (units (unknown) date) (Reviewed 10/25/22 unknown) @ 04:01 by Ana Maria Ortega [facility]) (unknown) (no (unknown) (unknown) Father (units (unknown) date) No problems noted. unknown) (unknown) (no (unknown) (unknown) Feels Safe in (units ( unknown) date) Current Yes unknown) (unknown) (no (unknown) (unknown) General: Patient (units (unknown) date) appears unknown) well-nourished, elderly male, in no pain without (unknown) (no (unknown) (unknown) Globulin 4.2 H (units (unknown) date) unknown) (unknown) (no (unknown) (unknown) Globulin (units (unkno wn) date) unknown) (unknown) (no (unknown) (unknown) Glucose 89 (units (unk nown) date) unknown) (unknown) (no (unknown) (unknown) Glucose (units (unkno wn) date) unknown) (unknown) (no (unknown) (unknown) HEENT: (units (unkno wn) date) Normocephalic, unknown) atraumatic, extraocular muscles intact, oral pharynx is (unknown) (no (unknown) (unknown) Hct 45.9 (units (unkno wn) date) unknown) (unknown) (no (unknown) (unknown) Hct (units (unkno wn) date) unknown) (unknown) (no (unknown) (unknown) Hgb 15.6 (units (unkno wn) date) unknown) (unknown) (no (unknown) (unknown) Hgb (units (unkno wn) date) unknown) (unknown) (no (unknown) (unknown) History + (units (unkn own) date) Physical Report unknown) (unknown) (no (unknown) (unknown) History of (units (unk nown) date) Present Illness unknown) (unknown) (no (unknown) (unknown) 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 (unknown) (no (unknown) (unknown) History (units (unkno wn) date) unknown) (unknown) (no (unknown) (unknown) Home Medications (units (unknown) date) and Allergies unknown) (unknown) (no (unknown) (unknown) Home Medications (units (unknown) date) unknown) (unknown) (no (unknown) (unknown) I have personally (units (unknown) date) reviewed patient's unknown) chart notes from PCP, specialists, (unknown) (no (unknown) (unknown) I have utilized (units (unknown) date) all available unknown) immediate resources to obtain, update, or review (unknown) (no (unknown) (unknown) I spent a total (units (unknown) date) of [] minutes of unknown) critical care time on this patient's care (unknown) (no (unknown) (unknown) INR 1.5 H (units (unkn own) date) unknown) (unknown) (no (unknown) (unknown) INR (units (unkno wn) date) unknown) (unknown) (no (unknown) (unknown) [facility] (units (unknown) date) [address] [place] [address] unknown) [place] [address] (unknown) (no (unknown) (unknown) Nicolas Torrez (units (unknown) date) 86-year-old male unknown) slightly poor historian with history of AFib on (unknown) (no (unknown) (unknown) 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 (unknown) (no (unknown) (unknown) L1-L4, hepatic (units (unknown) date) steatosis, noted unknown) gallstones nonobstructing, cholelithiasis, (unknown) (no (unknown) (unknown) Laboratory (units (unk nown) date) Results - last 24 unknown) hr (unknown) (no (unknown) (unknown) Labs (units (unkno wn) date) unknown) (unknown) (no (unknown) (unknown) Labs: (units (unkno wn) date) unknown) (unknown) (no (unknown) (unknown) Lipase 169 (units (unk nown) date) unknown) (unknown) (no (unknown) (unknown) Lipase (units (unkno wn) date) unknown) (unknown) (no (unknown) (unknown) Lungs: (units (unkno wn) date) Auscultation of unknown) all lung stock are clear without adventitious sounds, (unknown) (no (unknown) (unknown) Lymph # (Auto) (units (unknown) date) 2300 unknown) (unknown) (no (unknown) (unknown) Lymph # (Auto) (units (unknown) date) unknown) (unknown) (no (unknown) (unknown) Lymph % (Auto) (units (unknown) date) 22.0 L unknown) (unknown) (no (unknown) (unknown) Lymph % (Auto) (units (unknown) date) unknown) (unknown) (no (unknown) (unknown) MCH 33.9 (units (unkno wn) date) unknown) (unknown) (no (unknown) (unknown) MCH (units (unkno wn) date) unknown) (unknown) (no (unknown) (unknown) MCHC 34.1 (units (unkn own) date) unknown) (unknown) (no (unknown) (unknown) MCHC (units (unkno wn) date) unknown) (unknown) (no (unknown) (unknown) MCV 99.4 (units (unkno wn) date) unknown) (unknown) (no (unknown) (unknown) MCV (units (unkno wn) date) unknown) (unknown) (no (unknown) (unknown) Magnesium 1.9 (units ( unknown) date) unknown) (unknown) (no (unknown) (unknown) Magnesium (units (unkn own) date) unknown) (unknown) (no (unknown) (unknown) Medical History (units (unknown) date) (Updated 10/25/22 unknown) @ 04:00 by RAFAELA Mercado) (unknown) (no (unknown) (unknown) Medication (units (unk nown) date) Instructions unknown) Recorded Confirmed Type (unknown) (no (unknown) (unknown) Meds (units (unkno wn) date) unknown) (unknown) (no (unknown) (unknown) Brule # (Auto) (units ( unknown) date) 1100 H unknown) (unknown) (no (unknown) (unknown) Brule # (Auto) (units ( unknown) date) unknown) (unknown) (no (unknown) (unknown) Brule % (Auto) (units ( unknown) date) 11.0 unknown) (unknown) (no (unknown) (unknown) Brule % (Auto) (units ( unknown) date) unknown) (unknown) (no (unknown) (unknown) Mother (units (unknown) date) Cancer unknown) (unknown) (no (unknown) (unknown) Multiple lumbar (units (unknown) date) compression unknown) fractures L1-L4, hepatic steatosis, noted gallstones (unknown) (no (unknown) (unknown) Musculoskeletal: (units (unknown) date) Muscle strength unknown) and tone appear equal within normal limits for (unknown) (no (unknown) (unknown) Narrative (units (unkn own) date) unknown) (unknown) (no (unknown) (unknown) Narrative: (units (unk nown) date) unknown) (unknown) (no (unknown) (unknown) Negative for JVD (units (unknown) date) unknown) (unknown) (no (unknown) (unknown) Neuro: Alert and (units (unknown) date) orientated x3, unknown) sensation to touch intact, no obvious gross (unknown) (no (unknown) (unknown) Neut # (Auto) (units ( unknown) date) 6500 unknown) (unknown) (no (unknown) (unknown) Neut # (Auto) (units ( unknown) date) unknown) (unknown) (no (unknown) (unknown) Neut % (Auto) (units ( unknown) date) 63.6 unknown) (unknown) (no (unknown) (unknown) Neut % (Auto) (units ( unknown) date) unknown) (unknown) (no (unknown) (unknown) No Known Drug (units ( unknown) date) Allergies Allergy unknown) Verified 10/24/22 21:16 (unknown) (no (unknown) (unknown) Objective (units (unkn own) date) unknown) (unknown) (no (unknown) (unknown) On admit patient (units (unknown) date) is stable temp unknown) 98.2?, BP 140/80, HR 90 sinus rhythm, RR 15, O2 (unknown) (no (unknown) (unknown) Osteoporosis (units (u nknown) date) unknown) (unknown) (no (unknown) (unknown) Oxygen Delivery (units (unknown) date) Method Room Air unknown) (unknown) (no (unknown) (unknown) Oxygen Delivery (units (unknown) date) Method unknown) (unknown) (no (unknown) (unknown) PT 17.4 H (units (unkn own) date) unknown) (unknown) (no (unknown) (unknown) PT (units (unkno wn) date) unknown) (unknown) (no (unknown) (unknown) Patient History (units (unknown) date) unknown) (unknown) (no (unknown) (unknown) Patient's son (units ( unknown) date) lives in [place] unknown) [place], and has a full-time in-house (unknown) (no (unknown) (unknown) Patient: (units (unkno wn) date) Nicolas Neely unknown) MR#: [id number] (unknown) (no (unknown) (unknown) Plt Count 218 (units ( unknown) date) unknown) (unknown) (no (unknown) (unknown) Plt Count (units (unkn own) date) unknown) (unknown) (no (unknown) (unknown) Potassium 3.8 (units ( unknown) date) unknown) (unknown) (no (unknown) (unknown) Potassium (units (unkn own) date) unknown) (unknown) (no (unknown) (unknown) Provider: (units (unkn own) date) Ana Maria Ortega unknown) 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 (unknown) (no (unknown) (unknown) Psych: Patient (units (unknown) date) has a well-kept unknown) appearance, appropriate affect, mental status (unknown) (no (unknown) (unknown) Pulse Oximetry 94 (units (unknown) date) unknown) (unknown) (no (unknown) (unknown) Pulse Oximetry 95 (units (unknown) date) 95 unknown) (unknown) (no (unknown) (unknown) Pulse Oximetry 95 (units (unknown) date) 96 unknown) (unknown) (no (unknown) (unknown) Pulse Oximetry 95 (units (unknown) date) unknown) (unknown) (no (unknown) (unknown) Pulse Oximetry 96 (units (unknown) date) 95 unknown) (unknown) (no (unknown) (unknown) Pulse Oximetry 96 (units (unknown) date) 97 unknown) (unknown) (no (unknown) (unknown) Pulse Oximetry 96 (units (unknown) date) unknown) (unknown) (no (unknown) (unknown) Pulse Oximetry 97 (units (unknown) date) 97 unknown) (unknown) (no (unknown) (unknown) Pulse Oximetry 98 (units (unknown) date) 98 unknown) (unknown) (no (unknown) (unknown) Pulse Oximetry 98 (units (unknown) date) 99 unknown) (unknown) (no (unknown) (unknown) Pulse Oximetry 98 (units (unknown) date) unknown) (unknown) (no (unknown) (unknown) Pulse Oximetry 99 (units (unknown) date) 98 unknown) (unknown) (no (unknown) (unknown) Pulse Oximetry 99 (units (unknown) date) unknown) (unknown) (no (unknown) (unknown) Pulse Rate 133 H (units (unknown) date) unknown) (unknown) (no (unknown) (unknown) Pulse Rate 135 H (units (unknown) date) 118 H unknown) (unknown) (no (unknown) (unknown) Pulse Rate 135 H (units (unknown) date) 130 H unknown) (unknown) (no (unknown) (unknown) Pulse Rate 136 H (units (unknown) date) 131 H unknown) (unknown) (no (unknown) (unknown) Pulse Rate 138 H (units (unknown) date) 140 H unknown) (unknown) (no (unknown) (unknown) Pulse Rate 143 H (units (unknown) date) 136 H unknown) (unknown) (no (unknown) (unknown) Pulse Rate 85 86 (units (unknown) date) unknown) (unknown) (no (unknown) (unknown) Pulse Rate 85 (units ( unknown) date) unknown) (unknown) (no (unknown) (unknown) Pulse Rate 86 (units ( unknown) date) unknown) (unknown) (no (unknown) (unknown) Pulse Rate 87 84 (units (unknown) date) unknown) (unknown) (no (unknown) (unknown) Pulse Rate 87 89 (units (unknown) date) unknown) (unknown) (no (unknown) (unknown) Pulse Rate 88 89 (units (unknown) date) unknown) (unknown) (no (unknown) (unknown) Pulse Rate 90 85 (units (unknown) date) unknown) (unknown) (no (unknown) (unknown) Pulse Rate 90 91 (units (unknown) date) H unknown) (unknown) (no (unknown) (unknown) Pulse Rate 90 (units ( unknown) date) unknown) (unknown) (no (unknown) (unknown) Pulse Rate 91 H (units (unknown) date) 103 H unknown) (unknown) (no (unknown) (unknown) Pulse Rate 91 H (units (unknown) date) 90 unknown) (unknown) (no (unknown) (unknown) Pulse Rate 91 H (units (unknown) date) unknown) (unknown) (no (unknown) (unknown) Pulse Rate 92 H (units (unknown) date) 90 unknown) (unknown) (no (unknown) (unknown) Pulse Rate 92 H (units (unknown) date) unknown) (unknown) (no (unknown) (unknown) Pulse Rate 93 H (units (unknown) date) unknown) (unknown) (no (unknown) (unknown) RBC 4.62 (units (unkno wn) date) unknown) (unknown) (no (unknown) (unknown) RBC (units (unkno wn) date) unknown) (unknown) (no (unknown) (unknown) RDW 14.5 (units (unkno wn) date) unknown) (unknown) (no (unknown) (unknown) RDW (units (unkno wn) date) unknown) (unknown) (no (unknown) (unknown) RVR, ventricular (units (unknown) date) tachycardia, unknown) osteoporosis and continued frequent falls . These (unknown) (no (unknown) (unknown) Respiratory Rate (units (unknown) date) 11 L 17 unknown) (unknown) (no (unknown) (unknown) Respiratory Rate (units (unknown) date) 11 L unknown) (unknown) (no (unknown) (unknown) Respiratory Rate (units (unknown) date) 13 10 L unknown) (unknown) (no (unknown) (unknown) Respiratory Rate (units (unknown) date) 14 14 unknown) (unknown) (no (unknown) (unknown) Respiratory Rate (units (unknown) date) 14 21 unknown) (unknown) (no (unknown) (unknown) Respiratory Rate (units (unknown) date) 14 unknown) (unknown) (no (unknown) (unknown) Respiratory Rate (units (unknown) date) 15 13 unknown) (unknown) (no (unknown) (unknown) Respiratory Rate (units (unknown) date) 15 15 unknown) (unknown) (no (unknown) (unknown) Respiratory Rate (units (unknown) date) 15 16 unknown) (unknown) (no (unknown) (unknown) Respiratory Rate (units (unknown) date) 15 22 unknown) (unknown) (no (unknown) (unknown) Respiratory Rate (units (unknown) date) 15 unknown) (unknown) (no (unknown) (unknown) Respiratory Rate (units (unknown) date) 16 17 unknown) (unknown) (no (unknown) (unknown) Respiratory Rate (units (unknown) date) 16 unknown) (unknown) (no (unknown) (unknown) Respiratory Rate (units (unknown) date) 17 15 unknown) (unknown) (no (unknown) (unknown) Respiratory Rate (units (unknown) date) 17 unknown) (unknown) (no (unknown) (unknown) Respiratory Rate (units (unknown) date) 18 12 unknown) (unknown) (no (unknown) (unknown) Respiratory Rate (units (unknown) date) 18 unknown) (unknown) (no (unknown) (unknown) Respiratory Rate (units (unknown) date) 19 22 unknown) (unknown) (no (unknown) (unknown) Respiratory Rate (units (unknown) date) 20 13 unknown) (unknown) (no (unknown) (unknown) Respiratory Rate (units (unknown) date) 20 unknown) (unknown) (no (unknown) (unknown) Respiratory Rate (units (unknown) date) 21 11 L unknown) (unknown) (no (unknown) (unknown) Respiratory Rate (units (unknown) date) 23 15 unknown) (unknown) (no (unknown) (unknown) Result Diagrams: (units (unknown) date) unknown) (unknown) (no (unknown) (unknown) Review of Systems (units (unknown) date) unknown) (unknown) (no (unknown) (unknown) SARS-CoV-2 (PCR) (units (unknown) date) Negative unknown) (unknown) (no (unknown) (unknown) SARS-CoV-2 (PCR) (units (unknown) date) unknown) (unknown) (no (unknown) (unknown) Safety + (units (unkno wn) date) Behavioral: unknown) (unknown) (no (unknown) (unknown) Signed (units (unkno wn) date) By:<Electronically unknown) signed by Ana Maria [facility] Jordan> (unknown) (no (unknown) (unknown) Skin: Warm dry (units (unknown) date) and intact without unknown) rashes, ulcerations or petechiae. (unknown) (no (unknown) (unknown) Sebastian wishes to (units (unknown) date) take the patient unknown) to the OR. (unknown) (no (unknown) (unknown) Smoking Status (units (unknown) date) Never smoker unknown) (unknown) (no (unknown) (unknown) Social History: (units (unknown) date) unknown) (unknown) (no (unknown) (unknown) Sodium 139 (units (unk nown) date) unknown) (unknown) (no (unknown) (unknown) Sodium (units (unkno wn) date) unknown) (unknown) (no (unknown) (unknown) Surgical History (units (unknown) date) (Updated 10/25/22 unknown) @ 04:00 by Ana Maria Ortega [facility]) (unknown) (no (unknown) (unknown) Surrogate (units (unkn own) date) decision maker: unknown) Son, patient also has a full-time caregiver [place] (unknown) (no (unknown) (unknown) Temperature 98.2 (units (unknown) date) F unknown) (unknown) (no (unknown) (unknown) Temperature (units (un known) date) unknown) (unknown) (no (unknown) (unknown) Threatened By a (units (unknown) date) Person unknown) (unknown) (no (unknown) (unknown) Time Patient (units (u nknown) date) Seen: 22:04 unknown) (unknown) (no (unknown) (unknown) Time Spent With (units (unknown) date) Patient unknown) (unknown) (no (unknown) (unknown) Tobacco + (units (unkn own) date) Substance use: unknown) (unknown) (no (unknown) (unknown) Total Bilirubin (units (unknown) date) 1.1 unknown) (unknown) (no (unknown) (unknown) Total Bilirubin (units (unknown) date) unknown) (unknown) (no (unknown) (unknown) Total Creatine (units (unknown) date) Kinase < 20 L unknown) (unknown) (no (unknown) (unknown) Total Creatine (units (unknown) date) Kinase unknown) (unknown) (no (unknown) (unknown) Total Protein 7.9 (units (unknown) date) unknown) (unknown) (no (unknown) (unknown) Total Protein (units ( unknown) date) unknown) (unknown) (no (unknown) (unknown) Troponin I < (units (u nknown) date) 0.012 unknown) (unknown) (no (unknown) (unknown) Troponin I (units (unk nown) date) unknown) (unknown) (no (unknown) (unknown) Vital Signs (units (un known) date) unknown) (unknown) (no (unknown) (unknown) WBC 10.3 (units (unkno wn) date) unknown) (unknown) (no (unknown) (unknown) WBC (units (unkno wn) date) unknown) (unknown) (no (unknown) (unknown) Xarelto for many (units (unknown) date) years, pacemaker unknown) placement for sick sinus syndrome, history of (unknown) (no (unknown) (unknown) Xarelto, multiple (units (unknown) date) healing lumbar unknown) compression fractures, bilateral rib fractures, (unknown) (no (unknown) (unknown) [Embedded Image (units (unknown) date) Not Available] unknown) (unknown) (no (unknown) (unknown) ability to (units (unk nown) date) function home, unknown) safety, and manage ADLs. This patient requires acute (unknown) (no (unknown) (unknown) aches, chills, (units (unknown) date) abdominal pain, unknown) nausea, vomiting, diarrhea, urinary symptoms, (unknown) (no (unknown) (unknown) age, no obvious (units (unknown) date) deformity, unknown) crepitus, effusions, cyanosis, clubbing or edema (unknown) (no (unknown) (unknown) alcohol intake (units (unknown) date) frequency unknown) holiday/special occasion (unknown) (no (unknown) (unknown) and (units (unkno wn) date) deconditioning, unknown) patient will likely require placement with rehab or SNF on (unknown) (no (unknown) (unknown) are present in (units (unknown) date) all 4 quadrants unknown) without guarding or rebound, no CVA tenderness. (unknown) (no (unknown) (unknown) arousable. In ED (units (unknown) date) patient was in unknown) AFib with RVR heart rates 143-30, and 2 (unknown) (no (unknown) (unknown) as mortality and (units (unknown) date) morbidity as well unknown) as impaired wound healing from multiple (unknown) (no (unknown) (unknown) at rest with no (units (unknown) date) movement in bed. unknown) Patient denies headache, changes in vision, (unknown) (no (unknown) (unknown) attitude thought (units (unknown) date) context and unknown) judgment are appropriate for age. (unknown) (no (unknown) (unknown) bimatoprost 0.01 (units (unknown) date) % eye drops 1 drp unknown) ophthalmic (eye) DAILY 10/24/22 10/24/22 (unknown) (no (unknown) (unknown) bupropion HCl 150 (units (unknown) date) mg tablet,12 hr unknown) 150 mg PO BID 10/24/22 10/24/22 History (unknown) (no (unknown) (unknown) capsule,extended (units (unknown) date) release 24 hr unknown) (unknown) (no (unknown) (unknown) care inpatient (units ( unknown) date) hospital admission unknown) management for AFib RVR on Xarelto, sick sinus (unknown) (no (unknown) (unknown) caregiver [place]. (units (unknown) date) unknown) (unknown) (no (unknown) (unknown) clavicle (units (unkno wn) date) fracture. unknown) (unknown) (no (unknown) (unknown) clear and mucous (units (unknown) date) membranes are unknown) moist. Neck is supple and symmetric, trachea is (unknown) (no (unknown) (unknown) colonic (units (unkno wn) date) diverticulosis. unknown) (unknown) (no (unknown) (unknown) comparison for (units (unknown) date) labs diagnostics unknown) or EKG in system. CT of chest abdomen pelvis: (unknown) (no (unknown) (unknown) complications (units ( unknown) date) because of age, unknown) chronic anticoagulation, atrial fibrillation with (unknown) (no (unknown) (unknown) complications (units ( unknown) date) because of the unknown) mild malnutrition in relation to acute atrial (unknown) (no (unknown) (unknown) compression (units (un known) date) fractures, unknown) clavicle fracture, bilateral rib fractures, resulting in (unknown) (no (unknown) (unknown) compression (units (un known) date) fractures, lumbar, unknown) clavicle-left, ribs-bilaterally, with (unknown) (no (unknown) (unknown) consult, PT/OT (units (unknown) date) consult for unknown) multiple falls and gait instability, global weakness (unknown) (no (unknown) (unknown) continues to be (units (unknown) date) in sinus rhythm. unknown) No WBC, mono 11,000. Stable electrolytes (unknown) (no (unknown) (unknown) cough, (units (unkno wn) date) congestion, ear unknown) eye discomfort, upper respiratory symptoms, fever, body (unknown) (no (unknown) (unknown) diagnostic (units (unk nown) date) imaging, and unknown) laboratory results. (unknown) (no (unknown) (unknown) diltiazem HCl 240 (units (unknown) date) mg 240 mg PO DAILY unknown) 10/24/22 10/24/22 History (unknown) (no (unknown) (unknown) discharge (units (unkn own) date) unknown) (unknown) (no (unknown) (unknown) discharge. (units (unk nown) date) unknown) (unknown) (no (unknown) (unknown) documented. (units (un known) date) unknown) (unknown) (no (unknown) (unknown) dorzolamide 22.3 (units (unknown) date) mg-timolol 6.8 1 unknown) drp ophthalmic (eye) DAILY 10/24/22 10/24/22 (unknown) (no (unknown) (unknown) episodes of (units (un known) date) V-tach 8 attend be unknown) runs. Was successfully cardioverted and (unknown) (no (unknown) (unknown) evaluated in (units (u nknown) date) imaging completed unknown) prior at another facility, and has seen Dr. Norman (unknown) (no (unknown) (unknown) evaluation of (units ( unknown) date) pacemaker unknown) function. (unknown) (no (unknown) (unknown) factors increase (units (unknown) date) the difficulty and unknown) complexity of medical and surgical (unknown) (no (unknown) (unknown) failure, present (units (unknown) date) on admission- unknown) resolved (unknown) (no (unknown) (unknown) fatigue, and (units (u nknown) date) worsening severe unknown) midline low back pain, that was impairing his (unknown) (no (unknown) (unknown) fibrillation with (units (unknown) date) RVR, ventricular unknown) tachycardia. This increases the difficulty (unknown) (no (unknown) (unknown) finasteride 5 mg (units (unknown) date) tablet 5 mg PO unknown) DAILY 10/24/22 10/24/22 History (unknown) (no (unknown) (unknown) for labs (units (unkno wn) date) diagnostics or EKG unknown) in system. (unknown) (no (unknown) (unknown) fractures due to (units (unknown) date) 2 ground level unknown) falls. presented to ED for worsening episodes (unknown) (no (unknown) (unknown) fully empties (units ( unknown) date) bladder, unknown) hematemesis, hematuria, changes in bowel, melena, recent (unknown) (no (unknown) (unknown) global weakness (units (unknown) date) deconditioning and unknown) increased falls. (unknown) (no (unknown) (unknown) ground level fall (units (unknown) date) September of 2022. unknown) Presented to ED due to increasing SOB, (unknown) (no (unknown) (unknown) impaired (units (unkno wn) date) mobility, safety, unknown) due to escalating pain after failing outpatient (unknown) (no (unknown) (unknown) in complexity of (units (unknown) date) medical management unknown) and increases the chances poor outcomes such (unknown) (no (unknown) (unknown) inability to (units (u nknown) date) function at home unknown) due to pain. (unknown) (no (unknown) (unknown) intake and (units (unk nown) date) nutrition. unknown) (unknown) (no (unknown) (unknown) intermittent, (units ( unknown) date) acute on chronic, unknown) with implanted pacemaker, chronic, acute (unknown) (no (unknown) (unknown) intervention (units (u nknown) date) tomorrow for unknown) ortho. (unknown) (no (unknown) (unknown) intervention, (units ( unknown) date) will evaluate unknown) patient tomorrow. (unknown) (no (unknown) (unknown) interventions and (units (unknown) date) increases the unknown) chances of poor outcomes such as morbidity and (unknown) (no (unknown) (unknown) left medial (units (un known) date) clavicle fracture unknown) unstable gait frequent falls. Dr. Villar in the (unknown) (no (unknown) (unknown) malnutrition will (units (unknown) date) impact his unknown) oxygenation, which increases the risk of (unknown) (no (unknown) (unknown) management. The (units (unknown) date) patient is at much unknown) higher risk for medical and surgical (unknown) (no (unknown) (unknown) medication (units (unk nown) date) changes, exposure unknown) too or illness. (unknown) (no (unknown) (unknown) medication. At the (units (unknown) date) time of admit unknown) patient was resting comfortably denied any pain (unknown) (no (unknown) (unknown) mg/mL eye drops (units (unknown) date) unknown) (unknown) (no (unknown) (unknown) midline, no (units (un known) date) adenopathy, no unknown) thyroid enlargement, nontender, no masses palpated. (unknown) (no (unknown) (unknown) mortality. The (units (unknown) date) patient's atrial unknown) fibrillation with RVR, and ventricular (unknown) (no (unknown) (unknown) movement and no (units (unknown) date) distress at this unknown) time. (unknown) (no (unknown) (unknown) multilevel (units (unkn own) date) osteopenic unknown) compression fractures with retropulsed fracture segment at (unknown) (no (unknown) (unknown) multiple lumbar (units (unknown) date) compression unknown) fractures, clavicle fracture, rib fractures due to a (unknown) (no (unknown) (unknown) negative, initial (units (unknown) date) EKG in ED AFib unknown) with a rate of 136, post cardioversion sinus (unknown) (no (unknown) (unknown) negative, (units (unkn own) date) unknown) (unknown) (no (unknown) (unknown) nonobstructing, (units (unknown) date) cholelithiasis, unknown) colonic diverticulosis. Patient was seen (unknown) (no (unknown) (unknown) observe deficits (units (unknown) date) noted of cranial unknown) nerves. (unknown) (no (unknown) (unknown) of shortness of (units (unknown) date) breath and fatigue unknown) but primarily due to severe midline low back (unknown) (no (unknown) (unknown) omeprazole 20 mg (units (unknown) date) capsule,delayed 20 unknown) mg PO DAILY 10/24/22 10/24/22 History (unknown) (no (unknown) (unknown) ortho regarding (units (unknown) date) multiple unknown) fractures, is scheduled for follow-up on 10/25/2021. (unknown) (no (unknown) (unknown) osteoporosis, (units ( unknown) date) acute on chronic, unknown) present on admission (unknown) (no (unknown) (unknown) pain occasional (units (unknown) date) shortness of unknown) breath which is normal for him.? In ED he had (unknown) (no (unknown) (unknown) pain. Which is (units (unknown) date) now impacting his unknown) ability to function home, safety, and manage (unknown) (no (unknown) (unknown) palpation and (units ( unknown) date) movement. Intact unknown) radial and pedal pulses are normal. (unknown) (no (unknown) (unknown) pathologic (units (unk nown) date) osteopathic, unknown) fractures and immune suppression. Also contributing to (unknown) (no (unknown) (unknown) pneumonia. (units (unk nown) date) Patient admitted unknown) for AFib with RVR, pacer on Xarelto, ventricular (unknown) (no (unknown) (unknown) potassium 3.8, (units (unknown) date) Mag 1.9, PT 17.4, unknown) INR 1.5, initial troponin negative, COVID (unknown) (no (unknown) (unknown) present. Severe (units (unknown) date) significant pain unknown) midline lumbar, paraspinal tenderness with (unknown) (no (unknown) (unknown) process but (units (un known) date) nothing further unknown) noted. Patient admitted for AFib with RVR, pacer on (unknown) (no (unknown) (unknown) process but (units (un known) date) nothing further unknown) noted. (unknown) (no (unknown) (unknown) pulsations (units (unk nown) date) present. unknown) (unknown) (no (unknown) (unknown) register or (units (unk nown) date) acknowledge the unknown) atrial fibrillation with RVR, the runs of V-tach nor (unknown) (no (unknown) (unknown) release (units (unkno wn) date) unknown) (unknown) (no (unknown) (unknown) requires surgical (units (unknown) date) intervention, will unknown) evaluate tomorrow. (unknown) (no (unknown) (unknown) rhythm with sinus (units (unknown) date) arrhythmia rate of unknown) [address] and T-wave changes, no (unknown) (no (unknown) (unknown) rhythm. (units (unkno wn) date) unknown) (unknown) (no (unknown) (unknown) rivaroxaban 20 mg (units (unknown) date) tablet (Xarelto) unknown) 20 mg PO QPM 10/24/22 10/24/22 History (unknown) (no (unknown) (unknown) saturation 98% on (units (unknown) date) room air. Patient unknown) resting comfortably sleeping bed easily (unknown) (no (unknown) (unknown) saturation 98% on (units (unknown) date) room air. unknown) (unknown) (no (unknown) (unknown) seen 10/07/22 for (units (unknown) date) multiple lumbar unknown) compression fractures, clavicle fracture, rib (unknown) (no (unknown) (unknown) significant pain (units (unknown) date) worse with range unknown) of motion and improves with rest and pain (unknown) (no (unknown) (unknown) sinus arrhythmia (units (unknown) date) rate of 88 unknown) nonspecific ST and T-wave changes, no comparison (unknown) (no (unknown) (unknown) sustained-release (units (unknown) date) unknown) (unknown) (no (unknown) (unknown) syndrome, (units (unkn own) date) ventricular unknown) tachycardia, frequent falls, + multiple lumbar (unknown) (no (unknown) (unknown) tach 8-10 beat (units (unknown) date) runs. Successfully unknown) cardioverted and continues to be in sinus (unknown) (no (unknown) (unknown) tach, now in (units (u nknown) date) sinus rhythm, echo unknown) tomorrow, pain control for fractures, ortho (unknown) (no (unknown) (unknown) tach, was (units (unkn own) date) asymptomatic, and unknown) pacer worked appropriately and resolved to sinus. (unknown) (no (unknown) (unknown) tachycardia (units (un known) date) multiple healing unknown) lumbar compression fractures, and left medial (unknown) (no (unknown) (unknown) tachycardia, (units (u nknown) date) bilateral rib unknown) fractures, left clavicle fracture, as well as mild (unknown) (no (unknown) (unknown) tamsulosin 0.4 mg (units (unknown) date) capsule 0.4 mg PO unknown) BEDTIME 10/24/22 10/24/22 History (unknown) (no (unknown) (unknown) the (units (unkno wn) date) cardioversion-priyank unknown) ent should follow-up with Cardiology upon discharge for (unknown) (no (unknown) (unknown) the patient's (units ( unknown) date) current unknown) medications. (unknown) (no (unknown) (unknown) this time. (units (unknown) date) [facility]) consulted in ED does not feel that the patient (unknown) (no (unknown) (unknown) today; this time (units (unknown) date) is exclusive of unknown) procedural time. (unknown) (no (unknown) (unknown) topical ointment (units (unknown) date) unknown) (unknown) (no (unknown) (unknown) triamcinolone (units ( unknown) date) acetonide 0.1 % 1 unknown) applic topical DAILY PRN Dry Skin 10/24/22 (unknown) (no (unknown) (unknown) ventricular (units (un known) date) tachycardia, unknown) osteoporosis, BPH frequent falls, previously imaged (unknown) (no (unknown) (unknown) ventricular (units (un known) date) tachycardia, unknown) osteoporosis, frequent falls, previously seen for (unknown) (no (unknown) (unknown) vitamin B complex (units (unknown) date) (B 1 tab PO DAILY unknown) 10/24/22 10/24/22 History (unknown) (no (unknown) (unknown) wheezes, rhonchi, (units (unknown) date) or rales. unknown) Result panel 272 (unknown) (no date) (unknown) (unknown) 0.2 e.u./dl (unkn own) (unknown) (no date) (unknown) (unknown) 1.015 (units (unkn own) unknown) (unknown) (no date) (unknown) (unknown) 6.0 (units (unkn own) unknown) (unknown) (no date) (unknown) (unknown) CLEAR (units (unkn own) unknown) (unknown) (no date) (unknown) (unknown) NEGATIVE (units (unkn own) unknown) (unknown) (no date) (unknown) (unknown) NEGATIVE g/dl (unkn own) (unknown) (no date) (unknown) (unknown) TRACE (units (unkn own) unknown) (unknown) (no date) (unknown) (unknown) TRACE-INTACT (units ( unknown) unknown) (unknown) (no date) (unknown) (unknown) YELLOW (units (unkn own) unknown) (unknown) (no date) (unknown) (unknown) YELLOW (units (unkn own) unknown) Result panel 273 (unknown) (no date) (unknown) (unknown) Negative (units (unkn own) unknown) (unknown) (no date) (unknown) (unknown) Normal (units (unkn own) unknown) (unknown) (no date) (unknown) (unknown) Positive (units (unkn own) unknown) Result panel 274 (unknown) (no date) (unknown) (unknown) 0.2 e.u./dl (unkn own) (unknown) (no date) (unknown) (unknown) 1.015 (units (unkn own) unknown) (unknown) (no date) (unknown) (unknown) 6.0 (units (unkn own) unknown) (unknown) (no date) (unknown) (unknown) CLEAR (units (unkn own) unknown) (unknown) (no date) (unknown) (unknown) Cult Not (units (unkn own) Indicated unknown) (unknown) (no date) (unknown) (unknown) Microscopic (units (u nknown) Normal unknown) (unknown) (no date) (unknown) (unknown) NEGATIVE (units (unkn own) unknown) (unknown) (no date) (unknown) (unknown) NEGATIVE g/dl (unkn own) (unknown) (no date) (unknown) (unknown) None Seen (units (unk nown) unknown) (unknown) (no date) (unknown) (unknown) None Seen (units (unk nown) unknown) (unknown) (no date) (unknown) (unknown) TRACE (units (unkn own) unknown) (unknown) (no date) (unknown) (unknown) TRACE-INTACT (units ( unknown) unknown) (unknown) (no date) (unknown) (unknown) YELLOW (units (unkn own) unknown) (unknown) (no date) (unknown) (unknown) YELLOW (units (unkn own) unknown) Result panel 275 (unknown) (no (unknown) (unknown) (no value) (units (unk nown) date) unknown) (unknown) (no (unknown) (unknown) (past 8 hours): (units (unknown) date) unknown) (unknown) (no (unknown) (unknown) - continue PT / OT (units (unknown) date) and attempt to work unknown) on pain control, especially with (unknown) (no (unknown) (unknown) -In ED patient was (units (unknown) date) in AFib with RVR unknown) heart rates 143-130, and 2 episodes of V (unknown) (no (unknown) (unknown) -On admit patient (units (unknown) date) is stable temp unknown) 98.2?, BP 140/80, HR 90 sinus rhythm, RR 15, O2 (unknown) (no (unknown) (unknown) -after arrival on (units (unknown) date) the floor the unknown) patient has demonstrated a couple runs of V (unknown) (no (unknown) (unknown) -as evidence by (units (unknown) date) BMI 22.8 unknown) (unknown) (no (unknown) (unknown) -continue (units (unkn own) date) omeprazole once no unknown) longer NPO (unknown) (no (unknown) (unknown) -continue (units (unkn own) date) tamsulosin once unknown) cleared by Dr. Sebastian jones (unknown) (no (unknown) (unknown) -dietary consult (units (unknown) date) ordered to evaluate unknown) and implement steps to improve caloric (unknown) (no (unknown) (unknown) -it should be (units ( unknown) date) noted that Dr. mendoza) Brianda interrogated the pacemaker which did not (unknown) (no (unknown) (unknown) -patient's (units (unk nown) date) malnutrition places unknown) them at high risk for medical and surgical (unknown) (no (unknown) (unknown) -unknown if (units (un known) date) obstructive unknown) (unknown) (no (unknown) (unknown) 10/24/22 10/24/22 (units (unknown) date) 10/24/22 unknown) (unknown) (no (unknown) (unknown) 10/25/22 10/25/22 (units (unknown) date) 10/25/22 unknown) (unknown) (no (unknown) (unknown) 10/25/22 03:45 (units (unknown) date) unknown) (unknown) (no (unknown) (unknown) 10/25/22 (units (unkno wn) date) unknown) (unknown) (no (unknown) (unknown) 03:45 03:45 03:45 (units (unknown) date) unknown) (unknown) (no (unknown) (unknown) 03:45 10:12 10:12 (units (unknown) date) unknown) (unknown) (no (unknown) (unknown) [id number] (units (unkno wn) date) unknown) (unknown) (no (unknown) (unknown) 1. AFib with RVR, (units (unknown) date) acute on chronic, unknown) on Xarelto, ventricular tachycardia, (unknown) (no (unknown) (unknown) 12:00 10/25/22 (units (unknown) date) unknown) (unknown) (no (unknown) (unknown) 15:00 (units (unkno wn) date) unknown) (unknown) (no (unknown) (unknown) 16:40 16:40 16:40 (units (unknown) date) unknown) (unknown) (no (unknown) (unknown) 16:55 18:20 18:20 (units (unknown) date) unknown) (unknown) (no (unknown) (unknown) 18:20 18:20 22:40 (units (unknown) date) unknown) (unknown) (no (unknown) (unknown) 2. Unstable gait, (units (unknown) date) frequent GLF falls, unknown) resulting in multiple pathologic (unknown) (no (unknown) (unknown) 3. Malnutrition, (units (unknown) date) mild, acute on unknown) chronic, present on admission (unknown) (no (unknown) (unknown) 4. BPH, chronic, (units (unknown) date) present on unknown) admission (unknown) (no (unknown) (unknown) 5. GERD, chronic, (units (unknown) date) present on unknown) admission (unknown) (no (unknown) (unknown) 86 M admitted with (units (unknown) date) difficult to unknown) control pain as a result of multiple rib and (unknown) (no (unknown) (unknown) ALT 27 (units (unkno wn) date) unknown) (unknown) (no (unknown) (unknown) ALT (units (unkno wn) date) unknown) (unknown) (no (unknown) (unknown) APTT 36 (units (unkno wn) date) unknown) (unknown) (no (unknown) (unknown) APTT (units (unkno wn) date) unknown) (unknown) (no (unknown) (unknown) AST 32 (units (unkno wn) date) unknown) (unknown) (no (unknown) (unknown) AST (units (unkno wn) date) unknown) (unknown) (no (unknown) (unknown) Abdomen: S NT ND. (units (unknown) date) unknown) (unknown) (no (unknown) (unknown) Age/Sex: 86 / M (units (unknown) date) unknown) (unknown) (no (unknown) (unknown) Albumin 3.7 (units (un known) date) unknown) (unknown) (no (unknown) (unknown) Albumin (units (unkno wn) date) unknown) (unknown) (no (unknown) (unknown) Albumin/Globulin (units (unknown) date) Ratio 0.9 L unknown) (unknown) (no (unknown) (unknown) Albumin/Globulin (units (unknown) date) Ratio unknown) (unknown) (no (unknown) (unknown) Alkaline (units (unkno wn) date) Phosphatase 108 unknown) (unknown) (no (unknown) (unknown) Alkaline (units (unkno wn) date) Phosphatase unknown) (unknown) (no (unknown) (unknown) Assessment + Plan (units (unknown) date) narrative: unknown) (unknown) (no (unknown) (unknown) Assessment + Plan (units (unknown) date) unknown) (unknown) (no (unknown) (unknown) BPH (benign (units (un known) date) prostatic unknown) hyperplasia) (unknown) (no (unknown) (unknown) BUN 9 (units (unkno wn) date) unknown) (unknown) (no (unknown) (unknown) BUN (units (unkno wn) date) unknown) (unknown) (no (unknown) (unknown) BUN/Creatinine (units (unknown) date) Ratio 11.3 unknown) (unknown) (no (unknown) (unknown) BUN/Creatinine (units (unknown) date) Ratio 13.8 unknown) (unknown) (no (unknown) (unknown) BUN/Creatinine (units (unknown) date) Ratio unknown) (unknown) (no (unknown) (unknown) Baso # (Auto) 100 (units (unknown) date) unknown) (unknown) (no (unknown) (unknown) Baso # (Auto) (units ( unknown) date) unknown) (unknown) (no (unknown) (unknown) Baso % (Auto) 1.0 (units (unknown) date) unknown) (unknown) (no (unknown) (unknown) Baso % (Auto) (units ( unknown) date) unknown) (unknown) (no (unknown) (unknown) Blood Pressure (units (unknown) date) 127/76 111/64 unknown) (unknown) (no (unknown) (unknown) CK-MB (CK-2) Rel (units (unknown) date) Index TNP unknown) (unknown) (no (unknown) (unknown) CK-MB (CK-2) Rel (units (unknown) date) Index unknown) (unknown) (no (unknown) (unknown) CK-MB (CK-2) TNP (units (unknown) date) unknown) (unknown) (no (unknown) (unknown) CK-MB (CK-2) (units (u nknown) date) unknown) (unknown) (no (unknown) (unknown) COVID PCR: (units (unk nown) date) Negative unknown) (unknown) (no (unknown) (unknown) Calcium 8.3 L (units ( unknown) date) unknown) (unknown) (no (unknown) (unknown) Calcium 9.0 (units (un known) date) unknown) (unknown) (no (unknown) (unknown) Calcium (units (unkno wn) date) unknown) (unknown) (no (unknown) (unknown) Carbon Dioxide 21 (units (unknown) date) L unknown) (unknown) (no (unknown) (unknown) Carbon Dioxide 23 (units (unknown) date) unknown) (unknown) (no (unknown) (unknown) Carbon Dioxide (units (unknown) date) unknown) (unknown) (no (unknown) (unknown) Cardio:?RRR no (units (unknown) date) m/r/g. unknown) (unknown) (no (unknown) (unknown) Chloride 106 (units (u nknown) date) unknown) (unknown) (no (unknown) (unknown) Chloride 107 (units (u nknown) date) unknown) (unknown) (no (unknown) (unknown) Chloride (units (unkno wn) date) unknown) (unknown) (no (unknown) (unknown) Cholesterol 104 L (units (unknown) date) unknown) (unknown) (no (unknown) (unknown) Cholesterol (units (un known) date) unknown) (unknown) (no (unknown) (unknown) Chronic (units (unkno wn) date) anticoagulation unknown) (unknown) (no (unknown) (unknown) Code status: Full (units (unknown) date) unknown) (unknown) (no (unknown) (unknown) Creatinine 0.65 L (units (unknown) date) unknown) (unknown) (no (unknown) (unknown) Creatinine 0.80 (units (unknown) date) unknown) (unknown) (no (unknown) (unknown) Creatinine (units (unk nown) date) unknown) (unknown) (no (unknown) (unknown) Critical Care (units ( unknown) date) time: unknown) (unknown) (no (unknown) (unknown) : 1935 (units (unknown) date) Acct:[id number] unknown) (unknown) (no (unknown) (unknown) DVT/VTE (units (unkno wn) date) prophylaxis: unknown) Patient on Xarelto, SCDs only (unknown) (no (unknown) (unknown) Date Patient Seen: (units (unknown) date) 10/25/22 unknown) (unknown) (no (unknown) (unknown) Date of Service: (units (unknown) date) 10/24/22 unknown) (unknown) (no (unknown) (unknown) Disposition: (units (u nknown) date) Patient admitted to unknown) acute care for AFib with RVR, with runs of V (unknown) (no (unknown) (unknown) Eos # (Auto) 200 (units (unknown) date) unknown) (unknown) (no (unknown) (unknown) Eos # (Auto) (units (u nknown) date) unknown) (unknown) (no (unknown) (unknown) Eos % (Auto) 1.8 L (units (unknown) date) unknown) (unknown) (no (unknown) (unknown) Eos % (Auto) (units (u nknown) date) unknown) (unknown) (no (unknown) (unknown) Estimated GFR > 60 (units (unknown) date) unknown) (unknown) (no (unknown) (unknown) Estimated GFR (units ( unknown) date) unknown) (unknown) (no (unknown) (unknown) Ethyl Alcohol < 10 (units (unknown) date) unknown) (unknown) (no (unknown) (unknown) Ethyl Alcohol (units ( unknown) date) unknown) (unknown) (no (unknown) (unknown) Exam Narrative: (units (unknown) date) unknown) (unknown) (no (unknown) (unknown) Exam (units (unkno wn) date) unknown) (unknown) (no (unknown) (unknown) Extremities: No (units (unknown) date) edema or joint unknown) effusions. No cyanosis or clubbing. (unknown) (no (unknown) (unknown) Family History (units (unknown) date) (Reviewed 10/25/22 unknown) @ 04:01 by RAFAELA Mercado) (unknown) (no (unknown) (unknown) Father No (units (unknown) date) problems noted. unknown) (unknown) (no (unknown) (unknown) Free T4 1.09 (units (u nknown) date) unknown) (unknown) (no (unknown) (unknown) Free T4 (units (unkno wn) date) unknown) (unknown) (no (unknown) (unknown) General:? elderly (units (unknown) date) male, in no unknown) distress at this time. (unknown) (no (unknown) (unknown) Globulin 4.2 H (units (unknown) date) unknown) (unknown) (no (unknown) (unknown) Globulin (units (unkno wn) date) unknown) (unknown) (no (unknown) (unknown) Glucose 127 H (units ( unknown) date) unknown) (unknown) (no (unknown) (unknown) Glucose 89 (units (unk nown) date) unknown) (unknown) (no (unknown) (unknown) Glucose (units (unkno wn) date) unknown) (unknown) (no (unknown) (unknown) HDL Cholesterol 34 (units (unknown) date) L unknown) (unknown) (no (unknown) (unknown) HDL Cholesterol (units (unknown) date) unknown) (unknown) (no (unknown) (unknown) HEENT:? 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 (unknown) (no (unknown) (unknown) I have personally (units (unknown) date) reviewed patient's unknown) chart notes from PCP, specialists, (unknown) (no (unknown) (unknown) I have utilized (units (unknown) date) all available unknown) immediate resources to obtain, update, or review (unknown) (no (unknown) (unknown) I spent a total of (units (unknown) date) [] minutes of unknown) critical care time on this patient's care (unknown) (no (unknown) (unknown) INR 1.5 H (units (unkn own) date) unknown) (unknown) (no (unknown) (unknown) INR (units (unkno wn) date) unknown) (unknown) (no (unknown) (unknown) Interval history: (units (unknown) date) unknown) (unknown) (no (unknown) (unknown) [facility] (units (unknown) date) [address] [place] [address] Street unknown) [place] [address] (unknown) (no (unknown) (unknown) Nicolas Torrez (units (unknown) date) 86-year-old male unknown) slightly poor historian with history of AFib on (unknown) (no (unknown) (unknown) LDL Cholesterol, (units (unknown) date) Calc 55 unknown) (unknown) (no (unknown) (unknown) LDL Cholesterol, (units (unknown) date) Calc unknown) (unknown) (no (unknown) (unknown) Laboratory Results (units (unknown) date) - last 24 hr unknown) (unknown) (no (unknown) (unknown) Labs (units (unkno wn) date) unknown) (unknown) (no (unknown) (unknown) Labs: (units (unkno wn) date) unknown) (unknown) (no (unknown) (unknown) Lactate 0.9 (units (un known) date) unknown) (unknown) (no (unknown) (unknown) Lactate (units (unkno wn) date) unknown) (unknown) (no (unknown) (unknown) Lipase 169 (units (unk nown) date) unknown) (unknown) (no (unknown) (unknown) Lipase (units (unkno wn) date) unknown) (unknown) (no (unknown) (unknown) Lungs:? CTA b/l no (units (unknown) date) wheezing rhonchi or unknown) rales. (unknown) (no (unknown) (unknown) Lymph # (Auto) (units (unknown) date) 1600 unknown) (unknown) (no (unknown) (unknown) Lymph # (Auto) (units (unknown) date) unknown) (unknown) (no (unknown) (unknown) Lymph % (Auto) (units (unknown) date) 17.8 L unknown) (unknown) (no (unknown) (unknown) Lymph % (Auto) (units (unknown) date) unknown) (unknown) (no (unknown) (unknown) MCH 34.0 (units (unkno wn) date) unknown) (unknown) (no (unknown) (unknown) MCH (units (unkno wn) date) unknown) (unknown) (no (unknown) (unknown) MCHC 34.6 (units (unkn own) date) unknown) (unknown) (no (unknown) (unknown) MCHC (units (unkno wn) date) unknown) (unknown) (no (unknown) (unknown) MCV 98.1 (units (unkno wn) date) unknown) (unknown) (no (unknown) (unknown) MCV (units (unkno wn) date) unknown) (unknown) (no (unknown) (unknown) Magnesium 1.8 (units ( unknown) date) unknown) (unknown) (no (unknown) (unknown) Magnesium 1.9 (units ( unknown) date) unknown) (unknown) (no (unknown) (unknown) Magnesium (units (unkn own) date) unknown) (unknown) (no (unknown) (unknown) Medical History (units (unknown) date) (Updated 10/25/22 @ unknown) 04:00 by ALESSIO Mercado) (unknown) (no (unknown) (unknown) Micro UA Comment (units (unknown) date) Microscopic normal unknown) (unknown) (no (unknown) (unknown) Micro UA Comment (units (unknown) date) unknown) (unknown) (no (unknown) (unknown) Brule # (Auto) 1100 (units (unknown) date) H unknown) (unknown) (no (unknown) (unknown) Brule # (Auto) (units ( unknown) date) unknown) (unknown) (no (unknown) (unknown) Brule % (Auto) 11.9 (units (unknown) date) unknown) (unknown) (no (unknown) (unknown) Brule % (Auto) (units ( unknown) date) unknown) (unknown) (no (unknown) (unknown) Mother (units (unknown) date) Cancer unknown) (unknown) (no (unknown) (unknown) Musculoskeletal:? (units (unknown) date) Muscle strength and unknown) tone are equal within normal limits, no (unknown) (no (unknown) (unknown) NT-Pro-B Natriuret (units (unknown) date) Pep 3110 H unknown) (unknown) (no (unknown) (unknown) NT-Pro-B Natriuret (units (unknown) date) Pep unknown) (unknown) (no (unknown) (unknown) Narrative (units (unkn own) date) unknown) (unknown) (no (unknown) (unknown) Neck: supple and (units (unknown) date) symmetric, trachea unknown) is midline, no cervical adenopathy. (unknown) (no (unknown) (unknown) Neuro:? Alert and (units (unknown) date) orientated x3,? unknown) sensation to touch intact in all extremities, (unknown) (no (unknown) (unknown) Neut # (Auto) 6100 (units (unknown) date) unknown) (unknown) (no (unknown) (unknown) Neut # (Auto) (units ( unknown) date) unknown) (unknown) (no (unknown) (unknown) Neut % (Auto) 67.5 (units (unknown) date) unknown) (unknown) (no (unknown) (unknown) Neut % (Auto) (units ( unknown) date) unknown) (unknown) (no (unknown) (unknown) Objective (units (unkn own) date) unknown) (unknown) (no (unknown) (unknown) Osteoporosis (units (u nknown) date) unknown) (unknown) (no (unknown) (unknown) Oxygen Delivery (units (unknown) date) Method Room Air unknown) (unknown) (no (unknown) (unknown) Oxygen Flow Rate 0 (units (unknown) date) 0 unknown) (unknown) (no (unknown) (unknown) Oxygen Flow Rate 0 (units (unknown) date) unknown) (unknown) (no (unknown) (unknown) PFSH (units (unkno wn) date) unknown) (unknown) (no (unknown) (unknown) PT 17.4 H (units (unkn own) date) unknown) (unknown) (no (unknown) (unknown) PT 17.7 H (units (unkn own) date) unknown) (unknown) (no (unknown) (unknown) PT (units (unkno wn) date) unknown) (unknown) (no (unknown) (unknown) Patient: (units (unkno wn) date) Nicolas Neely unknown) MR#: [id number] (unknown) (no (unknown) (unknown) Plt Count 191 (units ( unknown) date) unknown) (unknown) (no (unknown) (unknown) Plt Count (units (unkn own) date) unknown) (unknown) (no (unknown) (unknown) Potassium 3.3 L (units (unknown) date) unknown) (unknown) (no (unknown) (unknown) Potassium 3.8 (units ( unknown) date) unknown) (unknown) (no (unknown) (unknown) Potassium (units (unkn own) date) unknown) (unknown) (no (unknown) (unknown) Procalcitonin 0.05 (units (unknown) date) unknown) (unknown) (no (unknown) (unknown) Procalcitonin (units ( unknown) date) unknown) (unknown) (no (unknown) (unknown) Progress Note (units ( unknown) date) unknown) (unknown) (no (unknown) (unknown) Provider: (units (unkn own) date) Franck Winston D.O. unknown) (unknown) (no (unknown) (unknown) Psych:? Patient (units (unknown) date) has a well-kept unknown) appearance, appropriate affect, mental status (unknown) (no (unknown) (unknown) Pulse Oximetry 96 (units (unknown) date) 95 unknown) (unknown) (no (unknown) (unknown) Pulse Rate 71 61 (units (unknown) date) unknown) (unknown) (no (unknown) (unknown) RBC 3.99 L (units (unk nown) date) unknown) (unknown) (no (unknown) (unknown) RBC (units (unkno wn) date) unknown) (unknown) (no (unknown) (unknown) RDW 14.4 (units (unkno wn) date) unknown) (unknown) (no (unknown) (unknown) RDW (units (unkno wn) date) unknown) (unknown) (no (unknown) (unknown) Respiratory Rate (units (unknown) date) 17 17 unknown) (unknown) (no (unknown) (unknown) Result Diagrams: (units (unknown) date) unknown) (unknown) (no (unknown) (unknown) SARS-CoV-2 (PCR) (units (unknown) date) Negative unknown) (unknown) (no (unknown) (unknown) SARS-CoV-2 (PCR) (units (unknown) date) unknown) (unknown) (no (unknown) (unknown) Signed By: (units (unk nown) date) unknown) (unknown) (no (unknown) (unknown) Skin:? Pale,? Warm (units (unknown) date) to touch,dry and unknown) intact without rashes, ulcerations or (unknown) (no (unknown) (unknown) Smoking Status: (units (unknown) date) Never smoker unknown) (unknown) (no (unknown) (unknown) Social History (units (unknown) date) unknown) (unknown) (no (unknown) (unknown) Sodium 138 (units (unk nown) date) unknown) (unknown) (no (unknown) (unknown) Sodium 139 (units (unk nown) date) unknown) (unknown) (no (unknown) (unknown) Sodium (units (unkno wn) date) unknown) (unknown) (no (unknown) (unknown) Subjective (units (unk nown) date) unknown) (unknown) (no (unknown) (unknown) Surgical History (units (unknown) date) (Updated 10/25/22 @ unknown) 04:00 by ALESSIO Mercado) (unknown) (no (unknown) (unknown) Surrogate decision (units (unknown) date) maker: Son, patient unknown) also has a full-time caregiver Davonte (unknown) (no (unknown) (unknown) TSH 8.95 H (units (unk nown) date) unknown) (unknown) (no (unknown) (unknown) TSH (units (unkno wn) date) unknown) (unknown) (no (unknown) (unknown) Temperature 97.8 F (units (unknown) date) 97.0 F L unknown) (unknown) (no (unknown) (unknown) Time Spent With (units (unknown) date) Patient unknown) (unknown) (no (unknown) (unknown) Total Bilirubin (units (unknown) date) 1.1 unknown) (unknown) (no (unknown) (unknown) Total Bilirubin (units (unknown) date) unknown) (unknown) (no (unknown) (unknown) Total Creatine (units (unknown) date) Kinase < 20 L unknown) (unknown) (no (unknown) (unknown) Total Creatine (units (unknown) date) Kinase unknown) (unknown) (no (unknown) (unknown) Total Protein 7.9 (units (unknown) date) unknown) (unknown) (no (unknown) (unknown) Total Protein (units ( unknown) date) unknown) (unknown) (no (unknown) (unknown) Triglycerides 75 (units (unknown) date) unknown) (unknown) (no (unknown) (unknown) Triglycerides (units ( unknown) date) unknown) (unknown) (no (unknown) (unknown) Troponin I < 0.012 (units (unknown) date) unknown) (unknown) (no (unknown) (unknown) Troponin I 0.014 (units (unknown) date) unknown) (unknown) (no (unknown) (unknown) Troponin I 0.023 (units (unknown) date) unknown) (unknown) (no (unknown) (unknown) Troponin I (units (unk nown) date) unknown) (unknown) (no (unknown) (unknown) U Benzodiazepines (units (unknown) date) Scrn Negative unknown) (unknown) (no (unknown) (unknown) U Benzodiazepines (units (unknown) date) Scrn unknown) (unknown) (no (unknown) (unknown) U Marijuana (THC) (units (unknown) date) Screen Negative unknown) (unknown) (no (unknown) (unknown) U Marijuana (THC) (units (unknown) date) Screen unknown) (unknown) (no (unknown) (unknown) U Methamphetamines (units (unknown) date) Scrn Negative unknown) (unknown) (no (unknown) (unknown) U Methamphetamines (units (unknown) date) Scrn unknown) (unknown) (no (unknown) (unknown) U Opiates 300ng/mL (units (unknown) date) cut Positive H unknown) (unknown) (no (unknown) (unknown) U Opiates 300ng/mL (units (unknown) date) cut unknown) (unknown) (no (unknown) (unknown) U Tricyclic (units (un known) date) Antidepress unknown) Negative (unknown) (no (unknown) (unknown) U Tricyclic (units (un known) date) Antidepress unknown) (unknown) (no (unknown) (unknown) Ur Amphetamines (units (unknown) date) Screen Negative unknown) (unknown) (no (unknown) (unknown) Ur Amphetamines (units (unknown) date) Screen unknown) (unknown) (no (unknown) (unknown) Ur Barbiturates (units (unknown) date) Screen Negative unknown) (unknown) (no (unknown) (unknown) Ur Barbiturates (units (unknown) date) Screen unknown) (unknown) (no (unknown) (unknown) Ur Culture (units (unk nown) date) Indicated? Cult not unknown) indicated (unknown) (no (unknown) (unknown) Ur Culture (units (unk nown) date) Indicated? unknown) (unknown) (no (unknown) (unknown) Ur Leukocyte (units (u nknown) date) Esterase Negative unknown) (unknown) (no (unknown) (unknown) Ur Leukocyte (units (u nknown) date) Esterase unknown) (unknown) (no (unknown) (unknown) Ur MDMA Scrn (units (u nknown) date) (Ecstasy) Negative unknown) (unknown) (no (unknown) (unknown) Ur MDMA Scrn (units (u nknown) date) (Ecstasy) unknown) (unknown) (no (unknown) (unknown) Ur Oxycodone (units (u nknown) date) Screen Positive H unknown) (unknown) (no (unknown) (unknown) Ur Oxycodone (units (u nknown) date) Screen unknown) (unknown) (no (unknown) (unknown) Ur Phencyclidine (units (unknown) date) Scrn Negative unknown) (unknown) (no (unknown) (unknown) Ur Phencyclidine (units (unknown) date) Scrn unknown) (unknown) (no (unknown) (unknown) Ur Specific (units (un known) date) Jerome 1.015 unknown) (unknown) (no (unknown) (unknown) Ur Specific (units (un known) date) Jerome unknown) (unknown) (no (unknown) (unknown) Urine Appearance (units (unknown) date) Clear unknown) (unknown) (no (unknown) (unknown) Urine Appearance (units (unknown) date) unknown) (unknown) (no (unknown) (unknown) Urine Bacteria (units (unknown) date) None seen unknown) (unknown) (no (unknown) (unknown) Urine Bacteria (units (unknown) date) unknown) (unknown) (no (unknown) (unknown) Urine Bilirubin (units (unknown) date) Negative unknown) (unknown) (no (unknown) (unknown) Urine Bilirubin (units (unknown) date) unknown) (unknown) (no (unknown) (unknown) Urine Cocaine (units ( unknown) date) Screen Negative unknown) (unknown) (no (unknown) (unknown) Urine Cocaine (units ( unknown) date) Screen unknown) (unknown) (no (unknown) (unknown) Urine Color Yellow (units (unknown) date) unknown) (unknown) (no (unknown) (unknown) Urine Color (units (un known) date) unknown) (unknown) (no (unknown) (unknown) Urine Glucose (UA) (units (unknown) date) Negative unknown) (unknown) (no (unknown) (unknown) Urine Glucose (UA) (units (unknown) date) unknown) (unknown) (no (unknown) (unknown) Urine Ketones (units ( unknown) date) Trace H unknown) (unknown) (no (unknown) (unknown) Urine Ketones (units ( unknown) date) unknown) (unknown) (no (unknown) (unknown) Urine Methadone (units (unknown) date) Screen Negative unknown) (unknown) (no (unknown) (unknown) Urine Methadone (units (unknown) date) Screen unknown) (unknown) (no (unknown) (unknown) Urine Nitrate (units ( unknown) date) Negative unknown) (unknown) (no (unknown) (unknown) Urine Nitrate (units ( unknown) date) unknown) (unknown) (no (unknown) (unknown) Urine Occult Blood (units (unknown) date) Trace-intact unknown) (unknown) (no (unknown) (unknown) Urine Occult Blood (units (unknown) date) unknown) (unknown) (no (unknown) (unknown) Urine Protein (units ( unknown) date) Negative unknown) (unknown) (no (unknown) (unknown) Urine Protein (units ( unknown) date) unknown) (unknown) (no (unknown) (unknown) Urine RBC None (units (unknown) date) seen unknown) (unknown) (no (unknown) (unknown) Urine RBC (units (unkn own) date) unknown) (unknown) (no (unknown) (unknown) Urine Urobilinogen (units (unknown) date) 0.2 unknown) (unknown) (no (unknown) (unknown) Urine Urobilinogen (units (unknown) date) unknown) (unknown) (no (unknown) (unknown) Urine WBC None (units (unknown) date) seen unknown) (unknown) (no (unknown) (unknown) Urine WBC (units (unkn own) date) unknown) (unknown) (no (unknown) (unknown) Urine pH 6.0 (units (u nknown) date) unknown) (unknown) (no (unknown) (unknown) Urine pH (units (unkno wn) date) unknown) (unknown) (no (unknown) (unknown) Vital Signs (units (un known) date) unknown) (unknown) (no (unknown) (unknown) WBC 9.0 (units (unkno wn) date) unknown) (unknown) (no (unknown) (unknown) WBC (units (unkno wn) date) unknown) (unknown) (no (unknown) (unknown) Xarelto for many (units (unknown) date) years, pacemaker unknown) placement for sick sinus syndrome, history of (unknown) (no (unknown) (unknown) [Embedded Image (units (unknown) date) Not Available] unknown) (unknown) (no (unknown) (unknown) ability to function (units (unknown) date) home, safety, and unknown) manage ADLs. He was found to have multiple (unknown) (no (unknown) (unknown) alcohol intake: (units (unknown) date) current unknown) (unknown) (no (unknown) (unknown) ambulation. (units (un known) date) unknown) (unknown) (no (unknown) (unknown) and (units (unkno wn) date) deconditioning, unknown) patient will likely require placement with rehab or SNF on (unknown) (no (unknown) (unknown) as mortality and (units (unknown) date) morbidity as well unknown) as impaired wound healing from multiple (unknown) (no (unknown) (unknown) attitude thought (units (unknown) date) context and unknown) judgment are appropriate for age. (unknown) (no (unknown) (unknown) clear and mucous (units (unknown) date) membranes are unknown) moist. (unknown) (no (unknown) (unknown) complications (units ( unknown) date) because of the mild unknown) malnutrition in relation to acute atrial (unknown) (no (unknown) (unknown) compression (units (un known) date) fractures, unknown) bilateral rib fractures, and a left clavicular fracture. (unknown) (no (unknown) (unknown) compression (units (un known) date) fractures, lumbar, unknown) clavicle-left, ribs-bilaterally, with (unknown) (no (unknown) (unknown) consult, PT/OT (units (unknown) date) consult for unknown) multiple falls and gait instability, global weakness (unknown) (no (unknown) (unknown) deformity. (units (unk nown) date) unknown) (unknown) (no (unknown) (unknown) diagnostic (units (unk nown) date) imaging, and unknown) laboratory results. (unknown) (no (unknown) (unknown) discharge. (units (unk nown) date) unknown) (unknown) (no (unknown) (unknown) evaluation of (units ( unknown) date) pacemaker function. unknown) (unknown) (no (unknown) (unknown) failure, present (units (unknown) date) on admission- unknown) resolved (unknown) (no (unknown) (unknown) fatigue, and (units (u nknown) date) worsening severe unknown) midline low back pain, that was impairing his (unknown) (no (unknown) (unknown) fibrillation with (units (unknown) date) RVR, ventricular unknown) tachycardia. This increases the difficulty (unknown) (no (unknown) (unknown) global weakness (units (unknown) date) deconditioning and unknown) increased falls. (unknown) (no (unknown) (unknown) ground level fall (units (unknown) date) September of 2022. unknown) Presented to ED due to increasing SOB, (unknown) (no (unknown) (unknown) household members: (units (unknown) date) none and other unknown) (unknown) (no (unknown) (unknown) in complexity of (units (unknown) date) medical management unknown) and increases the chances poor outcomes such (unknown) (no (unknown) (unknown) intake and (units (unk nown) date) nutrition. unknown) (unknown) (no (unknown) (unknown) intermittent, (units ( unknown) date) acute on chronic, unknown) with implanted pacemaker, chronic, acute (unknown) (no (unknown) (unknown) lumbar fractures. (units (unknown) date) He is doing well at unknown) rest today, has not ambulated with (unknown) (no (unknown) (unknown) multiple lumbar (units (unknown) date) compression unknown) fractures, clavicle fracture, rib fractures due to a (unknown) (no (unknown) (unknown) no gross deficits (units (unknown) date) noted of cranial unknown) nerves. Suspect mild cognitive impairment (unknown) (no (unknown) (unknown) osteoporosis, (units ( unknown) date) acute on chronic, unknown) present on admission (unknown) (no (unknown) (unknown) pathologic (units (unk nown) date) osteopathic, unknown) fractures and immune suppression. Also contributing to (unknown) (no (unknown) (unknown) petechiae.? (units (un known) date) unknown) (unknown) (no (unknown) (unknown) register or (units (unk nown) date) acknowledge the unknown) atrial fibrillation with RVR, the runs of V-tach nor (unknown) (no (unknown) (unknown) rhythm. (units (unkno wn) date) unknown) (unknown) (no (unknown) (unknown) saturation 98% on (units (unknown) date) room air. unknown) (unknown) (no (unknown) (unknown) tach 8-10 beat (units (unknown) date) runs. Successfully unknown) cardioverted and continues to be in sinus (unknown) (no (unknown) (unknown) tach, now in sinus (units (unknown) date) rhythm, echo unknown) tomorrow, pain control for fractures, ortho (unknown) (no (unknown) (unknown) tach, was (units (unkn own) date) asymptomatic, and unknown) pacer worked appropriately and resolved to sinus. (unknown) (no (unknown) (unknown) the (units (unkno wn) date) cardioversion-patie unknown) nt should follow-up with Cardiology upon discharge for (unknown) (no (unknown) (unknown) the patient's (units ( unknown) date) current unknown) medications. (unknown) (no (unknown) (unknown) therapies yet. (units (unknown) date) Denies fever, unknown) chills, chest pain, shortness of breath. (unknown) (no (unknown) (unknown) today; this time (units (unknown) date) is exclusive of unknown) procedural time. (unknown) (no (unknown) (unknown) ventricular (units (un known) date) tachycardia, unknown) osteoporosis, frequent falls, previously seen for Result panel 276 (unknown) (no (unknown) (unknown) (no value) (units (unk nown) date) unknown) (unknown) (no (unknown) (unknown) (past 8 hours): (units (unknown) date) unknown) (unknown) (no (unknown) (unknown) - appreciate (units (u nknown) date) dietary unknown) consultation (unknown) (no (unknown) (unknown) - continue PT / OT (units (unknown) date) and attempt to work unknown) on pain control, especially with (unknown) (no (unknown) (unknown) -In ED patient was (units (unknown) date) in AFib with RVR unknown) heart rates 143-130, and 2 episodes of V (unknown) (no (unknown) (unknown) -On admit patient (units (unknown) date) is stable temp unknown) 98.2?, BP 140/80, HR 90 sinus rhythm, RR 15, O2 (unknown) (no (unknown) (unknown) -after arrival on (units (unknown) date) the floor the unknown) patient has demonstrated a couple runs of V (unknown) (no (unknown) (unknown) -continue (units (unkn own) date) omeprazole unknown) (unknown) (no (unknown) (unknown) -continue (units (unkn own) date) tamsulosin unknown) (unknown) (no (unknown) (unknown) -it should be (units ( unknown) date) noted that Dr. damion Lamar interrogated the pacemaker which did not (unknown) (no (unknown) (unknown) 10/24/22 10/24/22 (units (unknown) date) 10/24/22 unknown) (unknown) (no (unknown) (unknown) 10/25/22 10/25/22 (units (unknown) date) 10/25/22 unknown) (unknown) (no (unknown) (unknown) 10/25/22 03:45 (units (unknown) date) unknown) (unknown) (no (unknown) (unknown) 10/25/22 (units (unkno wn) date) unknown) (unknown) (no (unknown) (unknown) 03:45 03:45 03:45 (units (unknown) date) unknown) (unknown) (no (unknown) (unknown) 03:45 10:12 10:12 (units (unknown) date) unknown) (unknown) (no (unknown) (unknown) [id number] (units (unkno wn) date) unknown) (unknown) (no (unknown) (unknown) 1. AFib with RVR, (units (unknown) date) acute on chronic, unknown) on Xarelto, ventricular tachycardia, (unknown) (no (unknown) (unknown) 12:00 10/25/22 (units (unknown) date) unknown) (unknown) (no (unknown) (unknown) 15:00 (units (unkno wn) date) unknown) (unknown) (no (unknown) (unknown) 16:40 16:40 16:40 (units (unknown) date) unknown) (unknown) (no (unknown) (unknown) 16:55 18:20 18:20 (units (unknown) date) unknown) (unknown) (no (unknown) (unknown) 18:20 18:20 22:40 (units (unknown) date) unknown) (unknown) (no (unknown) (unknown) 2. Unstable gait, (units (unknown) date) frequent GLF falls, unknown) resulting in multiple pathologic (unknown) (no (unknown) (unknown) 3. Moderate (units (unk nown) date) Malnutrition r/t unknown) difficulty with self-care and difficulty eating aeb (unknown) (no (unknown) (unknown) 4. BPH, chronic, (units (unknown) date) present on unknown) admission (unknown) (no (unknown) (unknown) 5. GERD, chronic, (units (unknown) date) present on unknown) admission (unknown) (no (unknown) (unknown) 86 M admitted with (units (unknown) date) difficult to unknown) control pain as a result of multiple rib and (unknown) (no (unknown) (unknown) ALT 27 (units (unkno wn) date) unknown) (unknown) (no (unknown) (unknown) ALT (units (unkno wn) date) unknown) (unknown) (no (unknown) (unknown) APTT 36 (units (unkno wn) date) unknown) (unknown) (no (unknown) (unknown) APTT (units (unkno wn) date) unknown) (unknown) (no (unknown) (unknown) AST 32 (units (unkno wn) date) unknown) (unknown) (no (unknown) (unknown) AST (units (unkno wn) date) unknown) (unknown) (no (unknown) (unknown) Abdomen: S NT ND. (units (unknown) date) unknown) (unknown) (no (unknown) (unknown) Age/Sex: 86 / M (units (unknown) date) unknown) (unknown) (no (unknown) (unknown) Albumin 3.7 (units (un known) date) unknown) (unknown) (no (unknown) (unknown) Albumin (units (unkno wn) date) unknown) (unknown) (no (unknown) (unknown) Albumin/Globulin (units (unknown) date) Ratio 0.9 L unknown) (unknown) (no (unknown) (unknown) Albumin/Globulin (units (unknown) date) Ratio unknown) (unknown) (no (unknown) (unknown) Alkaline (units (unkno wn) date) Phosphatase 108 unknown) (unknown) (no (unknown) (unknown) Alkaline (units (unkno wn) date) Phosphatase unknown) (unknown) (no (unknown) (unknown) Assessment + Plan (units (unknown) date) narrative: unknown) (unknown) (no (unknown) (unknown) Assessment + Plan (units (unknown) date) unknown) (unknown) (no (unknown) (unknown) BPH (benign (units (un known) date) prostatic unknown) hyperplasia) (unknown) (no (unknown) (unknown) BUN 9 (units (unkno wn) date) unknown) (unknown) (no (unknown) (unknown) BUN (units (unkno wn) date) unknown) (unknown) (no (unknown) (unknown) BUN/Creatinine (units (unknown) date) Ratio 11.3 unknown) (unknown) (no (unknown) (unknown) BUN/Creatinine (units (unknown) date) Ratio 13.8 unknown) (unknown) (no (unknown) (unknown) BUN/Creatinine (units (unknown) date) Ratio unknown) (unknown) (no (unknown) (unknown) Baso # (Auto) 100 (units (unknown) date) unknown) (unknown) (no (unknown) (unknown) Baso # (Auto) (units ( unknown) date) unknown) (unknown) (no (unknown) (unknown) Baso % (Auto) 1.0 (units (unknown) date) unknown) (unknown) (no (unknown) (unknown) Baso % (Auto) (units ( unknown) date) unknown) (unknown) (no (unknown) (unknown) Blood Pressure (units (unknown) date) 127/76 111/64 unknown) (unknown) (no (unknown) (unknown) CK-MB (CK-2) Rel (units (unknown) date) Index TNP unknown) (unknown) (no (unknown) (unknown) CK-MB (CK-2) Rel (units (unknown) date) Index unknown) (unknown) (no (unknown) (unknown) CK-MB (CK-2) TNP (units (unknown) date) unknown) (unknown) (no (unknown) (unknown) CK-MB (CK-2) (units (u nknown) date) unknown) (unknown) (no (unknown) (unknown) COVID PCR: (units (unk nown) date) Negative unknown) (unknown) (no (unknown) (unknown) Calcium 8.3 L (units ( unknown) date) unknown) (unknown) (no (unknown) (unknown) Calcium 9.0 (units (un known) date) unknown) (unknown) (no (unknown) (unknown) Calcium (units (unkno wn) date) unknown) (unknown) (no (unknown) (unknown) Carbon Dioxide 21 (units (unknown) date) L unknown) (unknown) (no (unknown) (unknown) Carbon Dioxide 23 (units (unknown) date) unknown) (unknown) (no (unknown) (unknown) Carbon Dioxide (units (unknown) date) unknown) (unknown) (no (unknown) (unknown) Cardio:?RRR no (units (unknown) date) m/r/g. unknown) (unknown) (no (unknown) (unknown) Chloride 106 (units (u nknown) date) unknown) (unknown) (no (unknown) (unknown) Chloride 107 (units (u nknown) date) unknown) (unknown) (no (unknown) (unknown) Chloride (units (unkno wn) date) unknown) (unknown) (no (unknown) (unknown) Cholesterol 104 L (units (unknown) date) unknown) (unknown) (no (unknown) (unknown) Cholesterol (units (un known) date) unknown) (unknown) (no (unknown) (unknown) Chronic (units (unkno wn) date) anticoagulation unknown) (unknown) (no (unknown) (unknown) Code status: Full (units (unknown) date) unknown) (unknown) (no (unknown) (unknown) Creatinine 0.65 L (units (unknown) date) unknown) (unknown) (no (unknown) (unknown) Creatinine 0.80 (units (unknown) date) unknown) (unknown) (no (unknown) (unknown) Creatinine (units (unk nown) date) unknown) (unknown) (no (unknown) (unknown) Critical Care (units ( unknown) date) time: unknown) (unknown) (no (unknown) (unknown) : 1935 (units (unknown) date) Acct:[id number] unknown) (unknown) (no (unknown) (unknown) DVT/VTE (units (o wn) date) prophylaxis: unknown) Patient on Xarelto, SCDs only (unknown) (no (unknown) (unknown) Date Patient Seen: (units (unknown) date) 10/25/22 unknown) (unknown) (no (unknown) (unknown) Date of Service: (units (unknown) date) 10/24/22 unknown) (unknown) (no (unknown) (unknown) Disposition: (units (u nknown) date) Observation, likely unknown) home vs SNF in 1-2 days depending on mobility (unknown) (no (unknown) (unknown) Eos # (Auto) 200 (units (unknown) date) unknown) (unknown) (no (unknown) (unknown) Eos # (Auto) (units (u nknown) date) unknown) (unknown) (no (unknown) (unknown) Eos % (Auto) 1.8 L (units (unknown) date) unknown) (unknown) (no (unknown) (unknown) Eos % (Auto) (units (u nknown) date) unknown) (unknown) (no (unknown) (unknown) Estimated GFR > 60 (units (unknown) date) unknown) (unknown) (no (unknown) (unknown) Estimated GFR (units ( unknown) date) unknown) (unknown) (no (unknown) (unknown) Ethyl Alcohol < 10 (units (unknown) date) unknown) (unknown) (no (unknown) (unknown) Ethyl Alcohol (units ( unknown) date) unknown) (unknown) (no (unknown) (unknown) Exam Narrative: (units (unknown) date) unknown) (unknown) (no (unknown) (unknown) Exam (units (unkno wn) date) unknown) (unknown) (no (unknown) (unknown) Extremities: No (units (unknown) date) edema or joint unknown) effusions. No cyanosis or clubbing. (unknown) (no (unknown) (unknown) Family History (units (unknown) date) (Reviewed 10/25/22 unknown) @ 04[facility] ([facility]) (no (unknown) (unknown) Father No (units (unknown) date) problems noted. unknown) (unknown) (no (unknown) (unknown) Free T4 1.09 (units (u nknown) date) unknown) (unknown) (no (unknown) (unknown) Free T4 (units (unkno wn) date) unknown) (unknown) (no (unknown) (unknown) General:? elderly (units (unknown) date) male, in no unknown) distress at this time. (unknown) (no (unknown) (unknown) Globulin 4.2 H (units (unknown) date) unknown) (unknown) (no (unknown) (unknown) Globulin (units (unkno wn) date) unknown) (unknown) (no (unknown) (unknown) Glucose 127 H (units ( unknown) date) unknown) (unknown) (no (unknown) (unknown) Glucose 89 (units (unk nown) date) unknown) (unknown) (no (unknown) (unknown) Glucose (units (unkno wn) date) unknown) (unknown) (no (unknown) (unknown) HDL Cholesterol 34 (units (unknown) date) L unknown) (unknown) (no (unknown) (unknown) HDL Cholesterol (units (unknown) date) unknown) (unknown) (no (unknown) (unknown) HEENT:? (units (unkno wn) date) Normocephalic, unknown) atraumatic, extraocular muscles intact, oral pharynx is (unknown) (no (unknown) (unknown) Hct 39.2 L (units (unk nown) date) unknown) (unknown) (no (unknown) (unknown) Hct (units (unkno wn) date) unknown) (unknown) (no (unknown) (unknown) Hemoglobin A1c 5.1 (units (unknown) date) unknown) (unknown) (no (unknown) (unknown) Hemoglobin A1c (units (unknown) date) unknown) (unknown) (no (unknown) (unknown) Hgb 13.6 (units (unkno wn) date) unknown) (unknown) (no (unknown) (unknown) Hgb (units (unkno wn) date) unknown) (unknown) (no (unknown) (unknown) 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 (unknown) (no (unknown) (unknown) I spent a total of (units (unknown) date) [] minutes of unknown) critical care time on this patient's care (unknown) (no (unknown) (unknown) INR 1.5 H (units (unkn own) date) unknown) (unknown) (no (unknown) (unknown) INR (units (unkno wn) date) unknown) (unknown) (no (unknown) (unknown) Interval history: (units (unknown) date) unknown) (unknown) (no (unknown) (unknown) [facility] (units (unknown) date) [address] unknown) [place] [address] (unknown) (no (unknown) (unknown) Nicolas Torrez (units (unknown) date) 86-year-old male unknown) slightly poor historian with history of AFib on (unknown) (no (unknown) (unknown) LDL Cholesterol, (units (unknown) date) Calc 55 unknown) (unknown) (no (unknown) (unknown) LDL Cholesterol, (units (unknown) date) Calc unknown) (unknown) (no (unknown) (unknown) Laboratory Results (units (unknown) date) - last 24 hr unknown) (unknown) (no (unknown) (unknown) Labs (units (unkno wn) date) unknown) (unknown) (no (unknown) (unknown) Labs: (units (unkno wn) date) unknown) (unknown) (no (unknown) (unknown) Lactate 0.9 (units (un known) date) unknown) (unknown) (no (unknown) (unknown) Lactate (units (unkno wn) date) unknown) (unknown) (no (unknown) (unknown) Lipase 169 (units (unk nown) date) unknown) (unknown) (no (unknown) (unknown) Lipase (units (unkno wn) date) unknown) (unknown) (no (unknown) (unknown) Lungs:? CTA b/l no (units (unknown) date) wheezing rhonchi or unknown) rales. (unknown) (no (unknown) (unknown) Lymph # (Auto) (units (unknown) date) 1600 unknown) (unknown) (no (unknown) (unknown) Lymph # (Auto) (units (unknown) date) unknown) (unknown) (no (unknown) (unknown) Lymph % (Auto) (units (unknown) date) 17.8 L unknown) (unknown) (no (unknown) (unknown) Lymph % (Auto) (units (unknown) date) unknown) (unknown) (no (unknown) (unknown) MCH 34.0 (units (unkno wn) date) unknown) (unknown) (no (unknown) (unknown) MCH (units (unkno wn) date) unknown) (unknown) (no (unknown) (unknown) MCHC 34.6 (units (unkn own) date) unknown) (unknown) (no (unknown) (unknown) MCHC (units (unkno wn) date) unknown) (unknown) (no (unknown) (unknown) MCV 98.1 (units (unkno wn) date) unknown) (unknown) (no (unknown) (unknown) MCV (units (unkno wn) date) unknown) (unknown) (no (unknown) (unknown) Magnesium 1.8 (units ( unknown) date) unknown) (unknown) (no (unknown) (unknown) Magnesium 1.9 (units ( unknown) date) unknown) (unknown) (no (unknown) (unknown) Magnesium (units (unkn own) date) unknown) (unknown) (no (unknown) (unknown) Medical History (units (unknown) date) (Updated 10/25/22 @ unknown) 04:00 by [facility] (unknown) (no (unknown) (unknown) Micro UA Comment (units (unknown) date) Microscopic normal unknown) (unknown) (no (unknown) (unknown) Micro UA Comment (units (unknown) date) unknown) (unknown) (no (unknown) (unknown) Brule # (Auto) 1100 (units (unknown) date) H unknown) (unknown) (no (unknown) (unknown) Brule # (Auto) (units ( unknown) date) unknown) (unknown) (no (unknown) (unknown) Brule % (Auto) 11.9 (units (unknown) date) unknown) (unknown) (no (unknown) (unknown) Brule % (Auto) (units ( unknown) date) unknown) (unknown) (no (unknown) (unknown) Mother (units (unknown) date) Cancer unknown) (unknown) (no (unknown) (unknown) Musculoskeletal:? (units (unknown) date) Muscle strength and unknown) tone are equal within normal limits, no (unknown) (no (unknown) (unknown) NT-Pro-B Natriuret (units (unknown) date) Pep 3110 H unknown) (unknown) (no (unknown) (unknown) NT-Pro-B Natriuret (units (unknown) date) Pep unknown) (unknown) (no (unknown) (unknown) Narrative (units (unkn own) date) unknown) (unknown) (no (unknown) (unknown) Neck: supple and (units (unknown) date) symmetric, trachea unknown) is midline, no cervical adenopathy. (unknown) (no (unknown) (unknown) Neuro:? Alert and (units (unknown) date) orientated x3,? unknown) sensation to touch intact in all extremities, (unknown) (no (unknown) (unknown) Neut # (Auto) 6100 (units (unknown) date) unknown) (unknown) (no (unknown) (unknown) Neut # (Auto) (units ( unknown) date) unknown) (unknown) (no (unknown) (unknown) Neut % (Auto) 67.5 (units (unknown) date) unknown) (unknown) (no (unknown) (unknown) Neut % (Auto) (units ( unknown) date) unknown) (unknown) (no (unknown) (unknown) Objective (units (unkn own) date) unknown) (unknown) (no (unknown) (unknown) Osteoporosis (units (u nknown) date) unknown) (unknown) (no (unknown) (unknown) Oxygen Delivery (units (unknown) date) Method Room Air unknown) (unknown) (no (unknown) (unknown) Oxygen Flow Rate 0 (units (unknown) date) 0 unknown) (unknown) (no (unknown) (unknown) Oxygen Flow Rate 0 (units (unknown) date) unknown) (unknown) (no (unknown) (unknown) PFSH (units (unkno wn) date) unknown) (unknown) (no (unknown) (unknown) PT 17.4 H (units (unkn own) date) unknown) (unknown) (no (unknown) (unknown) PT 17.7 H (units (unkn own) date) unknown) (unknown) (no (unknown) (unknown) PT (units (unkno wn) date) unknown) (unknown) (no (unknown) (unknown) Patient: (units (unkno wn) date) Nicolas Neely unknown) MR#: [id number] (unknown) (no (unknown) (unknown) Plt Count 191 (units ( unknown) date) unknown) (unknown) (no (unknown) (unknown) Plt Count (units (unkn own) date) unknown) (unknown) (no (unknown) (unknown) Potassium 3.3 L (units (unknown) date) unknown) (unknown) (no (unknown) (unknown) Potassium 3.8 (units ( unknown) date) unknown) (unknown) (no (unknown) (unknown) Potassium (units (unkn own) date) unknown) (unknown) (no (unknown) (unknown) Procalcitonin 0.05 (units (unknown) date) unknown) (unknown) (no (unknown) (unknown) Procalcitonin (units ( unknown) date) unknown) (unknown) (no (unknown) (unknown) Progress Note (units ( unknown) date) unknown) (unknown) (no (unknown) (unknown) Provider: (units (unkn own) date) Franck Winston D.O. unknown) (unknown) (no (unknown) (unknown) Psych:? Patient (units (unknown) date) has a well-kept unknown) appearance, appropriate affect, mental status (unknown) (no (unknown) (unknown) Pulse Oximetry 96 (units (unknown) date) 95 unknown) (unknown) (no (unknown) (unknown) Pulse Rate 71 61 (units (unknown) date) unknown) (unknown) (no (unknown) (unknown) RBC 3.99 L (units (unk nown) date) unknown) (unknown) (no (unknown) (unknown) RBC (units (unkno wn) date) unknown) (unknown) (no (unknown) (unknown) RDW 14.4 (units (unkno wn) date) unknown) (unknown) (no (unknown) (unknown) RDW (units (unkno wn) date) unknown) (unknown) (no (unknown) (unknown) Respiratory Rate (units (unknown) date) 17 17 unknown) (unknown) (no (unknown) (unknown) Result Diagrams: (units (unknown) date) unknown) (unknown) (no (unknown) (unknown) SARS-CoV-2 (PCR) (units (unknown) date) Negative unknown) (unknown) (no (unknown) (unknown) SARS-CoV-2 (PCR) (units (unknown) date) unknown) (unknown) (no (unknown) (unknown) Signed By: (units (unk nown) date) unknown) (unknown) (no (unknown) (unknown) Skin:? Pale,? Warm (units (unknown) date) to touch,dry and unknown) intact without rashes, ulcerations or (unknown) (no (unknown) (unknown) Smoking Status: (units (unknown) date) Never smoker unknown) (unknown) (no (unknown) (unknown) Social History (units (unknown) date) unknown) (unknown) (no (unknown) (unknown) Sodium 138 (units (unk nown) date) unknown) (unknown) (no (unknown) (unknown) Sodium 139 (units (unk nown) date) unknown) (unknown) (no (unknown) (unknown) Sodium (units (unkno wn) date) unknown) (unknown) (no (unknown) (unknown) Subjective (units (unk nown) date) unknown) (unknown) (no (unknown) (unknown) Surgical History (units (unknown) date) (Updated 10/25/22 @ unknown) 04:00 by Ana Maria Ortega [facility] (unknown) (no (unknown) (unknown) Surrogate decision (units (unknown) date) maker: Son, patient unknown) also has a full-time caregiver Davonte (unknown) (no (unknown) (unknown) TSH 8.95 H (units (unk nown) date) unknown) (unknown) (no (unknown) (unknown) TSH (units (unkno wn) date) unknown) (unknown) (no (unknown) (unknown) Temperature 97.8 F (units (unknown) date) 97.0 F L unknown) (unknown) (no (unknown) (unknown) Time Spent With (units (unknown) date) Patient unknown) (unknown) (no (unknown) (unknown) Total Bilirubin (units (unknown) date) 1.1 unknown) (unknown) (no (unknown) (unknown) Total Bilirubin (units (unknown) date) unknown) (unknown) (no (unknown) (unknown) Total Creatine (units (unknown) date) Kinase < 20 L unknown) (unknown) (no (unknown) (unknown) Total Creatine (units (unknown) date) Kinase unknown) (unknown) (no (unknown) (unknown) Total Protein 7.9 (units (unknown) date) unknown) (unknown) (no (unknown) (unknown) Total Protein (units ( unknown) date) unknown) (unknown) (no (unknown) (unknown) Triglycerides 75 (units (unknown) date) unknown) (unknown) (no (unknown) (unknown) Triglycerides (units ( unknown) date) unknown) (unknown) (no (unknown) (unknown) Troponin I < 0.012 (units (unknown) date) unknown) (unknown) (no (unknown) (unknown) Troponin I 0.014 (units (unknown) date) unknown) (unknown) (no (unknown) (unknown) Troponin I 0.023 (units (unknown) date) unknown) (unknown) (no (unknown) (unknown) Troponin I (units (unk nown) date) unknown) (unknown) (no (unknown) (unknown) U Benzodiazepines (units (unknown) date) Scrn Negative unknown) (unknown) (no (unknown) (unknown) U Benzodiazepines (units (unknown) date) Scrn unknown) (unknown) (no (unknown) (unknown) U Marijuana (THC) (units (unknown) date) Screen Negative unknown) (unknown) (no (unknown) (unknown) U Marijuana (THC) (units (unknown) date) Screen unknown) (unknown) (no (unknown) (unknown) U Methamphetamines (units (unknown) date) Scrn Negative unknown) (unknown) (no (unknown) (unknown) U Methamphetamines (units (unknown) date) Scrn unknown) (unknown) (no (unknown) (unknown) U Opiates 300ng/mL (units (unknown) date) cut Positive H unknown) (unknown) (no (unknown) (unknown) U Opiates 300ng/mL (units (unknown) date) cut unknown) (unknown) (no (unknown) (unknown) U Tricyclic (units (un known) date) Antidepress unknown) Negative (unknown) (no (unknown) (unknown) U Tricyclic (units (un known) date) Antidepress unknown) (unknown) (no (unknown) (unknown) Ur Amphetamines (units (unknown) date) Screen Negative unknown) (unknown) (no (unknown) (unknown) Ur Amphetamines (units (unknown) date) Screen unknown) (unknown) (no (unknown) (unknown) Ur Barbiturates (units (unknown) date) Screen Negative unknown) (unknown) (no (unknown) (unknown) Ur Barbiturates (units (unknown) date) Screen unknown) (unknown) (no (unknown) (unknown) Ur Culture (units (unk nown) date) Indicated? Cult not unknown) indicated (unknown) (no (unknown) (unknown) Ur Culture (units (unk nown) date) Indicated? unknown) (unknown) (no (unknown) (unknown) Ur Leukocyte (units (u nknown) date) Esterase Negative unknown) (unknown) (no (unknown) (unknown) Ur Leukocyte (units (u nknown) date) Esterase unknown) (unknown) (no (unknown) (unknown) Ur MDMA Scrn (units (u nknown) date) (Ecstasy) Negative unknown) (unknown) (no (unknown) (unknown) Ur MDMA Scrn (units (u nknown) date) (Ecstasy) unknown) (unknown) (no (unknown) (unknown) Ur Oxycodone (units (u nknown) date) Screen Positive H unknown) (unknown) (no (unknown) (unknown) Ur Oxycodone (units (u nknown) date) Screen unknown) (unknown) (no (unknown) (unknown) Ur Phencyclidine (units (unknown) date) Scrn Negative unknown) (unknown) (no (unknown) (unknown) Ur Phencyclidine (units (unknown) date) Scrn unknown) (unknown) (no (unknown) (unknown) Ur Specific (units (un known) date) Jerome 1.015 unknown) (unknown) (no (unknown) (unknown) Ur Specific (units (un known) date) Jerome unknown) (unknown) (no (unknown) (unknown) Urine Appearance (units (unknown) date) Clear unknown) (unknown) (no (unknown) (unknown) Urine Appearance (units (unknown) date) unknown) (unknown) (no (unknown) (unknown) Urine Bacteria (units (unknown) date) None seen unknown) (unknown) (no (unknown) (unknown) Urine Bacteria (units (unknown) date) unknown) (unknown) (no (unknown) (unknown) Urine Bilirubin (units (unknown) date) Negative unknown) (unknown) (no (unknown) (unknown) Urine Bilirubin (units (unknown) date) unknown) (unknown) (no (unknown) (unknown) Urine Cocaine (units ( unknown) date) Screen Negative unknown) (unknown) (no (unknown) (unknown) Urine Cocaine (units ( unknown) date) Screen unknown) (unknown) (no (unknown) (unknown) Urine Color Yellow (units (unknown) date) unknown) (unknown) (no (unknown) (unknown) Urine Color (units (un known) date) unknown) (unknown) (no (unknown) (unknown) Urine Glucose (UA) (units (unknown) date) Negative unknown) (unknown) (no (unknown) (unknown) Urine Glucose (UA) (units (unknown) date) unknown) (unknown) (no (unknown) (unknown) Urine Ketones (units ( unknown) date) Trace H unknown) (unknown) (no (unknown) (unknown) Urine Ketones (units ( unknown) date) unknown) (unknown) (no (unknown) (unknown) Urine Methadone (units (unknown) date) Screen Negative unknown) (unknown) (no (unknown) (unknown) Urine Methadone (units (unknown) date) Screen unknown) (unknown) (no (unknown) (unknown) Urine Nitrate (units ( unknown) date) Negative unknown) (unknown) (no (unknown) (unknown) Urine Nitrate (units ( unknown) date) unknown) (unknown) (no (unknown) (unknown) Urine Occult Blood (units (unknown) date) Trace-intact unknown) (unknown) (no (unknown) (unknown) Urine Occult Blood (units (unknown) date) unknown) (unknown) (no (unknown) (unknown) Urine Protein (units ( unknown) date) Negative unknown) (unknown) (no (unknown) (unknown) Urine Protein (units ( unknown) date) unknown) (unknown) (no (unknown) (unknown) Urine RBC None (units (unknown) date) seen unknown) (unknown) (no (unknown) (unknown) Urine RBC (units (unkn own) date) unknown) (unknown) (no (unknown) (unknown) Urine Urobilinogen (units (unknown) date) 0.2 unknown) (unknown) (no (unknown) (unknown) Urine Urobilinogen (units (unknown) date) unknown) (unknown) (no (unknown) (unknown) Urine WBC None (units (unknown) date) seen unknown) (unknown) (no (unknown) (unknown) Urine WBC (units (unkn own) date) unknown) (unknown) (no (unknown) (unknown) Urine pH 6.0 (units (u nknown) date) unknown) (unknown) (no (unknown) (unknown) Urine pH (units (unkno wn) date) unknown) (unknown) (no (unknown) (unknown) Vital Signs (units (un known) date) unknown) (unknown) (no (unknown) (unknown) WBC 9.0 (units (unkno wn) date) unknown) (unknown) (no (unknown) (unknown) WBC (units (unkno wn) date) unknown) (unknown) (no (unknown) (unknown) Xarelto for many (units (unknown) date) years, pacemaker unknown) placement for sick sinus syndrome, history of (unknown) (no (unknown) (unknown) [Embedded Image (units (unknown) date) Not Available] unknown) (unknown) (no (unknown) (unknown) ability to function (units (unknown) date) home, safety, and unknown) manage ADLs. He was found to have multiple (unknown) (no (unknown) (unknown) alcohol intake: (units (unknown) date) current unknown) (unknown) (no (unknown) (unknown) ambulation. (units (un known) date) unknown) (unknown) (no (unknown) (unknown) and pain control. (units (unknown) date) unknown) (unknown) (no (unknown) (unknown) attitude thought (units (unknown) date) context and unknown) judgment are appropriate for age. (unknown) (no (unknown) (unknown) clear and mucous (units (unknown) date) membranes are unknown) moist. (unknown) (no (unknown) (unknown) compression (units (un known) date) fractures, unknown) bilateral rib fractures, and a left clavicular fracture. (unknown) (no (unknown) (unknown) compression (units (un known) date) fractures, lumbar, unknown) clavicle-left, ribs-bilaterally, with (unknown) (no (unknown) (unknown) deformity. (units (unk nown) date) unknown) (unknown) (no (unknown) (unknown) evaluation of (units ( unknown) date) pacemaker function. unknown) (unknown) (no (unknown) (unknown) failure, present (units (unknown) date) on admission- unknown) resolved (unknown) (no (unknown) (unknown) fatigue, and (units (u nknown) date) worsening severe unknown) midline low back pain, that was impairing his (unknown) (no (unknown) (unknown) ground level fall (units (unknown) date) September of 2022. unknown) Presented to ED due to increasing SOB, (unknown) (no (unknown) (unknown) household members: (units (unknown) date) none and other unknown) (unknown) (no (unknown) (unknown) intermittent, (units ( unknown) date) acute on chronic, unknown) with implanted pacemaker, chronic, acute (unknown) (no (unknown) (unknown) lumbar fractures. (units (unknown) date) He is doing well at unknown) rest today, has not ambulated with (unknown) (no (unknown) (unknown) multiple lumbar (units (unknown) date) compression unknown) fractures, clavicle fracture, rib fractures due to a (unknown) (no (unknown) (unknown) no gross deficits (units (unknown) date) noted of cranial unknown) nerves. Suspect mild cognitive impairment (unknown) (no (unknown) (unknown) osteoporosis, (units ( unknown) date) acute on chronic, unknown) present on admission (unknown) (no (unknown) (unknown) petechiae.? (units (un known) date) unknown) (unknown) (no (unknown) (unknown) pt with 17% (units (un known) date) unintentional unknown) weight loss in 1y, BMI 22.8 (borderline low for age), (unknown) (no (unknown) (unknown) register or (units (unk nown) date) acknowledge the unknown) atrial fibrillation with RVR, the runs of V-tach nor (unknown) (no (unknown) (unknown) rhythm. (units (unkno wn) date) unknown) (unknown) (no (unknown) (unknown) saturation 98% on (units (unknown) date) room air. unknown) (unknown) (no (unknown) (unknown) side effects, pt (units (unknown) date) lives in home with unknown) caregiver, MNA score 11. (unknown) (no (unknown) (unknown) tach 8-10 beat (units (unknown) date) runs. Successfully unknown) cardioverted and continues to be in sinus (unknown) (no (unknown) (unknown) tach, was (units (unkn own) date) asymptomatic, and unknown) pacer worked appropriately and resolved to sinus. (unknown) (no (unknown) (unknown) the (units (unkno wn) date) cardioversion-patie unknown) nt should follow-up with Cardiology upon discharge for (unknown) (no (unknown) (unknown) therapies yet. (units (unknown) date) Denies fever, unknown) chills, chest pain, shortness of breath. (unknown) (no (unknown) (unknown) today; this time (units (unknown) date) is exclusive of unknown) procedural time. 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, pt on three medications with xerostomia Result panel 277 (unknown) (no (unknown) (unknown) (no value) (units (unk nown) date) unknown) (unknown) (no (unknown) (unknown) (past 8 hours): (units (unknown) date) unknown) (unknown) (no (unknown) (unknown) - appreciate (units (u nknown) date) dietary unknown) consultation (unknown) (no (unknown) (unknown) - continue PT / OT (units (unknown) date) and attempt to work unknown) on pain control, especially with (unknown) (no (unknown) (unknown) -In ED patient was (units (unknown) date) in AFib with RVR unknown) heart rates 143-130, and 2 episodes of V (unknown) (no (unknown) (unknown) -after arrival on (units (unknown) date) the floor the unknown) patient has demonstrated a couple runs of V (unknown) (no (unknown) (unknown) -continue (units (unkn own) date) omeprazole unknown) (unknown) (no (unknown) (unknown) -continue (units (unkn own) date) tamsulosin unknown) (unknown) (no (unknown) (unknown) -it should be (units ( unknown) date) noted that Dr. mendoza) Brianda interrogated the pacemaker which did not (unknown) (no (unknown) (unknown) 10/24/22 10/24/22 (units (unknown) date) 10/24/22 unknown) (unknown) (no (unknown) (unknown) 10/25/22 10/25/22 (units (unknown) date) 10/25/22 unknown) (unknown) (no (unknown) (unknown) 10/25/22 03:45 (units (unknown) date) unknown) (unknown) (no (unknown) (unknown) 10/25/22 (units (unkno wn) date) unknown) (unknown) (no (unknown) (unknown) 03:45 03:45 03:45 (units (unknown) date) unknown) (unknown) (no (unknown) (unknown) 03:45 10:12 10:12 (units (unknown) date) unknown) (unknown) (no (unknown) (unknown) [id number] (units (unkno wn) date) unknown) (unknown) (no (unknown) (unknown) 1. AFib with RVR, (units (unknown) date) acute on chronic, unknown) on Xarelto, ventricular tachycardia, (unknown) (no (unknown) (unknown) 12:00 10/25/22 (units (unknown) date) unknown) (unknown) (no (unknown) (unknown) 15:00 (units (unkno wn) date) unknown) (unknown) (no (unknown) (unknown) 16:40 16:40 16:40 (units (unknown) date) unknown) (unknown) (no (unknown) (unknown) 16:55 18:20 18:20 (units (unknown) date) unknown) (unknown) (no (unknown) (unknown) 18:20 18:20 22:40 (units (unknown) date) unknown) (unknown) (no (unknown) (unknown) 2. Unstable gait, (units (unknown) date) frequent GLF falls, unknown) resulting in multiple pathologic (unknown) (no (unknown) (unknown) 3. Moderate (units (unk nown) date) Malnutrition r/t unknown) difficulty with self-care and difficulty eating aeb (unknown) (no (unknown) (unknown) 4. BPH, chronic, (units (unknown) date) present on unknown) admission (unknown) (no (unknown) (unknown) 5. GERD, chronic, (units (unknown) date) present on unknown) admission (unknown) (no (unknown) (unknown) 86 M admitted with (units (unknown) date) difficult to unknown) control pain as a result of multiple rib and (unknown) (no (unknown) (unknown) ALT 27 (units (unkno wn) date) unknown) (unknown) (no (unknown) (unknown) ALT (units (unkno wn) date) unknown) (unknown) (no (unknown) (unknown) APTT 36 (units (unkno wn) date) unknown) (unknown) (no (unknown) (unknown) APTT (units (unkno wn) date) unknown) (unknown) (no (unknown) (unknown) AST 32 (units (unkno wn) date) unknown) (unknown) (no (unknown) (unknown) AST (units (unkno wn) date) unknown) (unknown) (no (unknown) (unknown) Abdomen: S NT ND. (units (unknown) date) unknown) (unknown) (no (unknown) (unknown) Age/Sex: 86 / M (units (unknown) date) unknown) (unknown) (no (unknown) (unknown) Albumin 3.7 (units (un known) date) unknown) (unknown) (no (unknown) (unknown) Albumin (units (unkno wn) date) unknown) (unknown) (no (unknown) (unknown) Albumin/Globulin (units (unknown) date) Ratio 0.9 L unknown) (unknown) (no (unknown) (unknown) Albumin/Globulin (units (unknown) date) Ratio unknown) (unknown) (no (unknown) (unknown) Alkaline (units (unkno wn) date) Phosphatase 108 unknown) (unknown) (no (unknown) (unknown) Alkaline (units (unkno wn) date) Phosphatase unknown) (unknown) (no (unknown) (unknown) Assessment + Plan (units (unknown) date) narrative: unknown) (unknown) (no (unknown) (unknown) Assessment + Plan (units (unknown) date) unknown) (unknown) (no (unknown) (unknown) BPH (benign (units (un known) date) prostatic unknown) hyperplasia) (unknown) (no (unknown) (unknown) BUN 9 (units (unkno wn) date) unknown) (unknown) (no (unknown) (unknown) BUN (units (unkno wn) date) unknown) (unknown) (no (unknown) (unknown) BUN/Creatinine (units (unknown) date) Ratio 11.3 unknown) (unknown) (no (unknown) (unknown) BUN/Creatinine (units (unknown) date) Ratio 13.8 unknown) (unknown) (no (unknown) (unknown) BUN/Creatinine (units (unknown) date) Ratio unknown) (unknown) (no (unknown) (unknown) Baso # (Auto) 100 (units (unknown) date) unknown) (unknown) (no (unknown) (unknown) Baso # (Auto) (units ( unknown) date) unknown) (unknown) (no (unknown) (unknown) Baso % (Auto) 1.0 (units (unknown) date) unknown) (unknown) (no (unknown) (unknown) Baso % (Auto) (units ( unknown) date) unknown) (unknown) (no (unknown) (unknown) Blood Pressure (units (unknown) date) 127/76 111/64 unknown) (unknown) (no (unknown) (unknown) CK-MB (CK-2) Rel (units (unknown) date) Index TNP unknown) (unknown) (no (unknown) (unknown) CK-MB (CK-2) Rel (units (unknown) date) Index unknown) (unknown) (no (unknown) (unknown) CK-MB (CK-2) TNP (units (unknown) date) unknown) (unknown) (no (unknown) (unknown) CK-MB (CK-2) (units (u nknown) date) unknown) (unknown) (no (unknown) (unknown) COVID PCR: (units (unk nown) date) Negative unknown) (unknown) (no (unknown) (unknown) Calcium 8.3 L (units ( unknown) date) unknown) (unknown) (no (unknown) (unknown) Calcium 9.0 (units (un known) date) unknown) (unknown) (no (unknown) (unknown) Calcium (units (unkno wn) date) unknown) (unknown) (no (unknown) (unknown) Carbon Dioxide 21 (units (unknown) date) L unknown) (unknown) (no (unknown) (unknown) Carbon Dioxide 23 (units (unknown) date) unknown) (unknown) (no (unknown) (unknown) Carbon Dioxide (units (unknown) date) unknown) (unknown) (no (unknown) (unknown) Cardio:?RRR no (units (unknown) date) m/r/g. unknown) (unknown) (no (unknown) (unknown) Chloride 106 (units (u nknown) date) unknown) (unknown) (no (unknown) (unknown) Chloride 107 (units (u nknown) date) unknown) (unknown) (no (unknown) (unknown) Chloride (units (unkno wn) date) unknown) (unknown) (no (unknown) (unknown) Cholesterol 104 L (units (unknown) date) unknown) (unknown) (no (unknown) (unknown) Cholesterol (units (un known) date) unknown) (unknown) (no (unknown) (unknown) Chronic (units (unkno wn) date) anticoagulation unknown) (unknown) (no (unknown) (unknown) Code status: Full (units (unknown) date) unknown) (unknown) (no (unknown) (unknown) Creatinine 0.65 L (units (unknown) date) unknown) (unknown) (no (unknown) (unknown) Creatinine 0.80 (units (unknown) date) unknown) (unknown) (no (unknown) (unknown) Creatinine (units (unk nown) date) unknown) (unknown) (no (unknown) (unknown) Critical Care (units ( unknown) date) time: unknown) (unknown) (no (unknown) (unknown) : 1935 (units (unknown) date) Acct:[id number] unknown) (unknown) (no (unknown) (unknown) DVT/VTE (units (unkno wn) date) prophylaxis: unknown) Patient on Xarelto, SCDs only (unknown) (no (unknown) (unknown) Date Patient Seen: (units (unknown) date) 10/25/22 unknown) (unknown) (no (unknown) (unknown) Date of Service: (units (unknown) date) 10/24/22 unknown) (unknown) (no (unknown) (unknown) Disposition: (units (u nknown) date) Observation, likely unknown) home vs SNF in 1-2 days depending on mobility (unknown) (no (unknown) (unknown) Eos # (Auto) 200 (units (unknown) date) unknown) (unknown) (no (unknown) (unknown) Eos # (Auto) (units (u nknown) date) unknown) (unknown) (no (unknown) (unknown) Eos % (Auto) 1.8 L (units (unknown) date) unknown) (unknown) (no (unknown) (unknown) Eos % (Auto) (units (u nknown) date) unknown) (unknown) (no (unknown) (unknown) Estimated GFR > 60 (units (unknown) date) unknown) (unknown) (no (unknown) (unknown) Estimated GFR (units ( unknown) date) unknown) (unknown) (no (unknown) (unknown) Ethyl Alcohol < 10 (units (unknown) date) unknown) (unknown) (no (unknown) (unknown) Ethyl Alcohol (units ( unknown) date) unknown) (unknown) (no (unknown) (unknown) Exam Narrative: (units (unknown) date) unknown) (unknown) (no (unknown) (unknown) Exam (units (unkno wn) date) unknown) (unknown) (no (unknown) (unknown) Extremities: No (units (unknown) date) edema or joint unknown) effusions. No cyanosis or clubbing. (unknown) (no (unknown) (unknown) Family History (units (unknown) date) (Reviewed 10/25/22 unknown) @ 04:01 by ALESSIO Mercado) (unknown) (no (unknown) (unknown) Father No (units (unknown) date) problems noted. unknown) (unknown) (no (unknown) (unknown) Free T4 1.09 (units (u nknown) date) unknown) (unknown) (no (unknown) (unknown) Free T4 (units (unkno wn) date) unknown) (unknown) (no (unknown) (unknown) General:? elderly (units (unknown) date) male, in no unknown) distress at this time. (unknown) (no (unknown) (unknown) Globulin 4.2 H (units (unknown) date) unknown) (unknown) (no (unknown) (unknown) Globulin (units (unkno wn) date) unknown) (unknown) (no (unknown) (unknown) Glucose 127 H (units ( unknown) date) unknown) (unknown) (no (unknown) (unknown) Glucose 89 (units (unk nown) date) unknown) (unknown) (no (unknown) (unknown) Glucose (units (unkno wn) date) unknown) (unknown) (no (unknown) (unknown) HDL Cholesterol 34 (units (unknown) date) L unknown) (unknown) (no (unknown) (unknown) HDL Cholesterol (units (unknown) date) unknown) (unknown) (no (unknown) (unknown) HEENT:? (units (unkno wn) date) Normocephalic, unknown) atraumatic, extraocular muscles intact, oral pharynx is (unknown) (no (unknown) (unknown) Hct 39.2 L (units (unk nown) date) unknown) (unknown) (no (unknown) (unknown) Hct (units (unkno wn) date) unknown) (unknown) (no (unknown) (unknown) Hemoglobin A1c 5.1 (units (unknown) date) unknown) (unknown) (no (unknown) (unknown) Hemoglobin A1c (units (unknown) date) unknown) (unknown) (no (unknown) (unknown) Hgb 13.6 (units (unkno wn) date) unknown) (unknown) (no (unknown) (unknown) Hgb (units (unkno wn) date) unknown) (unknown) (no (unknown) (unknown) 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 (unknown) (no (unknown) (unknown) I spent a total of (units (unknown) date) [] minutes of unknown) critical care time on this patient's care (unknown) (no (unknown) (unknown) INR 1.5 H (units (unkn own) date) unknown) (unknown) (no (unknown) (unknown) INR (units (unkno wn) date) unknown) (unknown) (no (unknown) (unknown) Interval history: (units (unknown) date) unknown) (unknown) (no (unknown) (unknown) [facility] (units (unknown) date) [address] unknown) [place] [address] (unknown) (no (unknown) (unknown) Nicolas Torrez (units (unknown) date) 86-year-old male unknown) slightly poor historian with history of AFib on (unknown) (no (unknown) (unknown) LDL Cholesterol, (units (unknown) date) Calc 55 unknown) (unknown) (no (unknown) (unknown) LDL Cholesterol, (units (unknown) date) Calc unknown) (unknown) (no (unknown) (unknown) Laboratory Results (units (unknown) date) - last 24 hr unknown) (unknown) (no (unknown) (unknown) Labs (units (unkno wn) date) unknown) (unknown) (no (unknown) (unknown) Labs: (units (unkno wn) date) unknown) (unknown) (no (unknown) (unknown) Lactate 0.9 (units (un known) date) unknown) (unknown) (no (unknown) (unknown) Lactate (units (unkno wn) date) unknown) (unknown) (no (unknown) (unknown) Lipase 169 (units (unk nown) date) unknown) (unknown) (no (unknown) (unknown) Lipase (units (unkno wn) date) unknown) (unknown) (no (unknown) (unknown) Lungs:? CTA b/l no (units (unknown) date) wheezing rhonchi or unknown) rales. (unknown) (no (unknown) (unknown) Lymph # (Auto) (units (unknown) date) 1600 unknown) (unknown) (no (unknown) (unknown) Lymph # (Auto) (units (unknown) date) unknown) (unknown) (no (unknown) (unknown) Lymph % (Auto) (units (unknown) date) 17.8 L unknown) (unknown) (no (unknown) (unknown) Lymph % (Auto) (units (unknown) date) unknown) (unknown) (no (unknown) (unknown) MCH 34.0 (units (unkno wn) date) unknown) (unknown) (no (unknown) (unknown) MCH (units (unkno wn) date) unknown) (unknown) (no (unknown) (unknown) MCHC 34.6 (units (unkn own) date) unknown) (unknown) (no (unknown) (unknown) MCHC (units (unkno wn) date) unknown) (unknown) (no (unknown) (unknown) MCV 98.1 (units (unkno wn) date) unknown) (unknown) (no (unknown) (unknown) MCV (units (unkno wn) date) unknown) (unknown) (no (unknown) (unknown) Magnesium 1.8 (units ( unknown) date) unknown) (unknown) (no (unknown) (unknown) Magnesium 1.9 (units ( unknown) date) unknown) (unknown) (no (unknown) (unknown) Magnesium (units (unkn own) date) unknown) (unknown) (no (unknown) (unknown) Medical History (units (unknown) date) (Updated 10/25/22 @ unknown) 04:00 by Ana Maria Ortega [facility]) (unknown) (no (unknown) (unknown) Micro UA Comment (units (unknown) date) Microscopic normal unknown) (unknown) (no (unknown) (unknown) Micro UA Comment (units (unknown) date) unknown) (unknown) (no (unknown) (unknown) Brule # (Auto) 1100 (units (unknown) date) H unknown) (unknown) (no (unknown) (unknown) Brule # (Auto) (units ( unknown) date) unknown) (unknown) (no (unknown) (unknown) Brule % (Auto) 11.9 (units (unknown) date) unknown) (unknown) (no (unknown) (unknown) Brule % (Auto) (units ( unknown) date) unknown) (unknown) (no (unknown) (unknown) Mother (units (unknown) date) Cancer unknown) (unknown) (no (unknown) (unknown) Musculoskeletal:? (units (unknown) date) Muscle strength and unknown) tone are equal within normal limits, no (unknown) (no (unknown) (unknown) NT-Pro-B Natriuret (units (unknown) date) Pep 3110 H unknown) (unknown) (no (unknown) (unknown) NT-Pro-B Natriuret (units (unknown) date) Pep unknown) (unknown) (no (unknown) (unknown) Narrative (units (unkn own) date) unknown) (unknown) (no (unknown) (unknown) Neck: supple and (units (unknown) date) symmetric, trachea unknown) is midline, no cervical adenopathy. (unknown) (no (unknown) (unknown) Neuro:? Alert and (units (unknown) date) orientated x3,? unknown) sensation to touch intact in all extremities, (unknown) (no (unknown) (unknown) Neut # (Auto) 6100 (units (unknown) date) unknown) (unknown) (no (unknown) (unknown) Neut # (Auto) (units ( unknown) date) unknown) (unknown) (no (unknown) (unknown) Neut % (Auto) 67.5 (units (unknown) date) unknown) (unknown) (no (unknown) (unknown) Neut % (Auto) (units ( unknown) date) unknown) (unknown) (no (unknown) (unknown) Objective (units (unkn own) date) unknown) (unknown) (no (unknown) (unknown) Osteoporosis (units (u nknown) date) unknown) (unknown) (no (unknown) (unknown) Oxygen Delivery (units (unknown) date) Method Room Air unknown) (unknown) (no (unknown) (unknown) Oxygen Flow Rate 0 (units (unknown) date) 0 unknown) (unknown) (no (unknown) (unknown) Oxygen Flow Rate 0 (units (unknown) date) unknown) (unknown) (no (unknown) (unknown) PFSH (units (unkno wn) date) unknown) (unknown) (no (unknown) (unknown) PT 17.4 H (units (unkn own) date) unknown) (unknown) (no (unknown) (unknown) PT 17.7 H (units (unkn own) date) unknown) (unknown) (no (unknown) (unknown) PT (units (unkno wn) date) unknown) (unknown) (no (unknown) (unknown) Patient: (units (unkno wn) date) Nicolas Neely unknown) MR#: [id number] (unknown) (no (unknown) (unknown) Plt Count 191 (units ( unknown) date) unknown) (unknown) (no (unknown) (unknown) Plt Count (units (unkn own) date) unknown) (unknown) (no (unknown) (unknown) Potassium 3.3 L (units (unknown) date) unknown) (unknown) (no (unknown) (unknown) Potassium 3.8 (units ( unknown) date) unknown) (unknown) (no (unknown) (unknown) Potassium (units (unkn own) date) unknown) (unknown) (no (unknown) (unknown) Procalcitonin 0.05 (units (unknown) date) unknown) (unknown) (no (unknown) (unknown) Procalcitonin (units ( unknown) date) unknown) (unknown) (no (unknown) (unknown) Progress Note (units ( unknown) date) unknown) (unknown) (no (unknown) (unknown) Provider: (units (unkn own) date) Franck Winston D.O. unknown) (unknown) (no (unknown) (unknown) Psych:? Patient (units (unknown) date) has a well-kept unknown) appearance, appropriate affect, mental status (unknown) (no (unknown) (unknown) Pulse Oximetry 96 (units (unknown) date) 95 unknown) (unknown) (no (unknown) (unknown) Pulse Rate 71 61 (units (unknown) date) unknown) (unknown) (no (unknown) (unknown) RBC 3.99 L (units (unk nown) date) unknown) (unknown) (no (unknown) (unknown) RBC (units (unkno wn) date) unknown) (unknown) (no (unknown) (unknown) RDW 14.4 (units (unkno wn) date) unknown) (unknown) (no (unknown) (unknown) RDW (units (unkno wn) date) unknown) (unknown) (no (unknown) (unknown) Respiratory Rate (units (unknown) date) 17 17 unknown) (unknown) (no (unknown) (unknown) Result Diagrams: (units (unknown) date) unknown) (unknown) (no (unknown) (unknown) SARS-CoV-2 (PCR) (units (unknown) date) Negative unknown) (unknown) (no (unknown) (unknown) SARS-CoV-2 (PCR) (units (unknown) date) unknown) (unknown) (no (unknown) (unknown) Signed By: (units (unk nown) date) unknown) (unknown) (no (unknown) (unknown) Skin:? Pale,? Warm (units (unknown) date) to touch,dry and unknown) intact without rashes, ulcerations or (unknown) (no (unknown) (unknown) Smoking Status: (units (unknown) date) Never smoker unknown) (unknown) (no (unknown) (unknown) Social History (units (unknown) date) unknown) (unknown) (no (unknown) (unknown) Sodium 138 (units (unk nown) date) unknown) (unknown) (no (unknown) (unknown) Sodium 139 (units (unk nown) date) unknown) (unknown) (no (unknown) (unknown) Sodium (units (unkno wn) date) unknown) (unknown) (no (unknown) (unknown) Subjective (units (unk nown) date) unknown) (unknown) (no (unknown) (unknown) Surgical History (units (unknown) date) (Updated 10/25/22 @ unknown) 04:00 by Ana Maria Ortega [facility]) (unknown) (no (unknown) (unknown) Surrogate decision (units (unknown) date) maker: Son, patient unknown) also has a full-time caregiver [place] (unknown) (no (unknown) (unknown) TSH 8.95 H (units (unk nown) date) unknown) (unknown) (no (unknown) (unknown) TSH (units (unkno wn) date) unknown) (unknown) (no (unknown) (unknown) Temperature 97.8 F (units (unknown) date) 97.0 F L unknown) (unknown) (no (unknown) (unknown) Time Spent With (units (unknown) date) Patient unknown) (unknown) (no (unknown) (unknown) Total Bilirubin (units (unknown) date) 1.1 unknown) (unknown) (no (unknown) (unknown) Total Bilirubin (units (unknown) date) unknown) (unknown) (no (unknown) (unknown) Total Creatine (units (unknown) date) Kinase < 20 L unknown) (unknown) (no (unknown) (unknown) Total Creatine (units (unknown) date) Kinase unknown) (unknown) (no (unknown) (unknown) Total Protein 7.9 (units (unknown) date) unknown) (unknown) (no (unknown) (unknown) Total Protein (units ( unknown) date) unknown) (unknown) (no (unknown) (unknown) Triglycerides 75 (units (unknown) date) unknown) (unknown) (no (unknown) (unknown) Triglycerides (units ( unknown) date) unknown) (unknown) (no (unknown) (unknown) Troponin I < 0.012 (units (unknown) date) unknown) (unknown) (no (unknown) (unknown) Troponin I 0.014 (units (unknown) date) unknown) (unknown) (no (unknown) (unknown) Troponin I 0.023 (units (unknown) date) unknown) (unknown) (no (unknown) (unknown) Troponin I (units (unk nown) date) unknown) (unknown) (no (unknown) (unknown) U Benzodiazepines (units (unknown) date) Scrn Negative unknown) (unknown) (no (unknown) (unknown) U Benzodiazepines (units (unknown) date) Scrn unknown) (unknown) (no (unknown) (unknown) U Marijuana (THC) (units (unknown) date) Screen Negative unknown) (unknown) (no (unknown) (unknown) U Marijuana (THC) (units (unknown) date) Screen unknown) (unknown) (no (unknown) (unknown) U Methamphetamines (units (unknown) date) Scrn Negative unknown) (unknown) (no (unknown) (unknown) U Methamphetamines (units (unknown) date) Scrn unknown) (unknown) (no (unknown) (unknown) U Opiates 300ng/mL (units (unknown) date) cut Positive H unknown) (unknown) (no (unknown) (unknown) U Opiates 300ng/mL (units (unknown) date) cut unknown) (unknown) (no (unknown) (unknown) U Tricyclic (units (un known) date) Antidepress unknown) Negative (unknown) (no (unknown) (unknown) U Tricyclic (units (un known) date) Antidepress unknown) (unknown) (no (unknown) (unknown) Ur Amphetamines (units (unknown) date) Screen Negative unknown) (unknown) (no (unknown) (unknown) Ur Amphetamines (units (unknown) date) Screen unknown) (unknown) (no (unknown) (unknown) Ur Barbiturates (units (unknown) date) Screen Negative unknown) (unknown) (no (unknown) (unknown) Ur Barbiturates (units (unknown) date) Screen unknown) (unknown) (no (unknown) (unknown) Ur Culture (units (unk nown) date) Indicated? Cult not unknown) indicated (unknown) (no (unknown) (unknown) Ur Culture (units (unk nown) date) Indicated? unknown) (unknown) (no (unknown) (unknown) Ur Leukocyte (units (u nknown) date) Esterase Negative unknown) (unknown) (no (unknown) (unknown) Ur Leukocyte (units (u nknown) date) Esterase unknown) (unknown) (no (unknown) (unknown) Ur MDMA Scrn (units (u nknown) date) (Ecstasy) Negative unknown) (unknown) (no (unknown) (unknown) Ur MDMA Scrn (units (u nknown) date) (Ecstasy) unknown) (unknown) (no (unknown) (unknown) Ur Oxycodone (units (u nknown) date) Screen Positive H unknown) (unknown) (no (unknown) (unknown) Ur Oxycodone (units (u nknown) date) Screen unknown) (unknown) (no (unknown) (unknown) Ur Phencyclidine (units (unknown) date) Scrn Negative unknown) (unknown) (no (unknown) (unknown) Ur Phencyclidine (units (unknown) date) Scrn unknown) (unknown) (no (unknown) (unknown) Ur Specific (units (un known) date) Jerome 1.015 unknown) (unknown) (no (unknown) (unknown) Ur Specific (units (un known) date) Jerome unknown) (unknown) (no (unknown) (unknown) Urine Appearance (units (unknown) date) Clear unknown) (unknown) (no (unknown) (unknown) Urine Appearance (units (unknown) date) unknown) (unknown) (no (unknown) (unknown) Urine Bacteria (units (unknown) date) None seen unknown) (unknown) (no (unknown) (unknown) Urine Bacteria (units (unknown) date) unknown) (unknown) (no (unknown) (unknown) Urine Bilirubin (units (unknown) date) Negative unknown) (unknown) (no (unknown) (unknown) Urine Bilirubin (units (unknown) date) unknown) (unknown) (no (unknown) (unknown) Urine Cocaine (units ( unknown) date) Screen Negative unknown) (unknown) (no (unknown) (unknown) Urine Cocaine (units ( unknown) date) Screen unknown) (unknown) (no (unknown) (unknown) Urine Color Yellow (units (unknown) date) unknown) (unknown) (no (unknown) (unknown) Urine Color (units (un known) date) unknown) (unknown) (no (unknown) (unknown) Urine Glucose (UA) (units (unknown) date) Negative unknown) (unknown) (no (unknown) (unknown) Urine Glucose (UA) (units (unknown) date) unknown) (unknown) (no (unknown) (unknown) Urine Ketones (units ( unknown) date) Trace H unknown) (unknown) (no (unknown) (unknown) Urine Ketones (units ( unknown) date) unknown) (unknown) (no (unknown) (unknown) Urine Methadone (units (unknown) date) Screen Negative unknown) (unknown) (no (unknown) (unknown) Urine Methadone (units (unknown) date) Screen unknown) (unknown) (no (unknown) (unknown) Urine Nitrate (units ( unknown) date) Negative unknown) (unknown) (no (unknown) (unknown) Urine Nitrate (units ( unknown) date) unknown) (unknown) (no (unknown) (unknown) Urine Occult Blood (units (unknown) date) Trace-intact unknown) (unknown) (no (unknown) (unknown) Urine Occult Blood (units (unknown) date) unknown) (unknown) (no (unknown) (unknown) Urine Protein (units ( unknown) date) Negative unknown) (unknown) (no (unknown) (unknown) Urine Protein (units ( unknown) date) unknown) (unknown) (no (unknown) (unknown) Urine RBC None (units (unknown) date) seen unknown) (unknown) (no (unknown) (unknown) Urine RBC (units (unkn own) date) unknown) (unknown) (no (unknown) (unknown) Urine Urobilinogen (units (unknown) date) 0.2 unknown) (unknown) (no (unknown) (unknown) Urine Urobilinogen (units (unknown) date) unknown) (unknown) (no (unknown) (unknown) Urine WBC None (units (unknown) date) seen unknown) (unknown) (no (unknown) (unknown) Urine WBC (units (unkn own) date) unknown) (unknown) (no (unknown) (unknown) Urine pH 6.0 (units (u nknown) date) unknown) (unknown) (no (unknown) (unknown) Urine pH (units (unkno wn) date) unknown) (unknown) (no (unknown) (unknown) Vital Signs (units (un known) date) unknown) (unknown) (no (unknown) (unknown) WBC 9.0 (units (unkno wn) date) unknown) (unknown) (no (unknown) (unknown) WBC (units (unkno wn) date) unknown) (unknown) (no (unknown) (unknown) Xarelto for many (units (unknown) date) years, pacemaker unknown) placement for sick sinus syndrome, history of (unknown) (no (unknown) (unknown) [Embedded Image (units (unknown) date) Not Available] unknown) (unknown) (no (unknown) (unknown) ability to function (units (unknown) date) home, safety, and unknown) manage ADLs. He was found to have multiple (unknown) (no (unknown) (unknown) alcohol intake: (units (unknown) date) current unknown) (unknown) (no (unknown) (unknown) ambulation. (units (un known) date) unknown) (unknown) (no (unknown) (unknown) and pain control. (units (unknown) date) unknown) (unknown) (no (unknown) (unknown) appeared to be (units (unknown) date) functioning unknown) normally per tech. (unknown) (no (unknown) (unknown) attitude thought (units (unknown) date) context and unknown) judgment are appropriate for age. (unknown) (no (unknown) (unknown) clear and mucous (units (unknown) date) membranes are unknown) moist. (unknown) (no (unknown) (unknown) compression (units (un known) date) fractures, unknown) bilateral rib fractures, and a left clavicular fracture. (unknown) (no (unknown) (unknown) compression (units (un known) date) fractures, lumbar, unknown) clavicle-left, ribs-bilaterally, with (unknown) (no (unknown) (unknown) deformity. (units (unk nown) date) unknown) (unknown) (no (unknown) (unknown) evaluation of (units ( unknown) date) pacemaker function. unknown) Tech did interrogate PPM in the ER and it (unknown) (no (unknown) (unknown) failure, present (units (unknown) date) on admission- unknown) resolved (unknown) (no (unknown) (unknown) fatigue, and (units (u nknown) date) worsening severe unknown) midline low back pain, that was impairing his (unknown) (no (unknown) (unknown) ground level fall (units (unknown) date) September of 2022. unknown) Presented to ED due to increasing SOB, (unknown) (no (unknown) (unknown) household members: (units (unknown) date) none and other unknown) (unknown) (no (unknown) (unknown) intermittent, (units ( unknown) date) acute on chronic, unknown) with implanted pacemaker, chronic, acute (unknown) (no (unknown) (unknown) lumbar fractures. (units (unknown) date) He is doing well at unknown) rest today, has not ambulated with (unknown) (no (unknown) (unknown) multiple lumbar (units (unknown) date) compression unknown) fractures, clavicle fracture, rib fractures due to a (unknown) (no (unknown) (unknown) no gross deficits (units (unknown) date) noted of cranial unknown) nerves. Suspect mild cognitive impairment (unknown) (no (unknown) (unknown) osteoporosis, (units ( unknown) date) acute on chronic, unknown) present on admission (unknown) (no (unknown) (unknown) petechiae.? (units (un known) date) unknown) (unknown) (no (unknown) (unknown) pt with 17% (units (un known) date) unintentional unknown) weight loss in 1y, BMI 22.8 (borderline low for age), (unknown) (no (unknown) (unknown) register or (units (unk nown) date) acknowledge the unknown) atrial fibrillation with RVR, the runs of V-tach nor (unknown) (no (unknown) (unknown) rhythm. (units (unkno wn) date) unknown) (unknown) (no (unknown) (unknown) side effects, pt (units (unknown) date) lives in home with unknown) caregiver, MNA score 11. (unknown) (no (unknown) (unknown) tach 8-10 beat (units (unknown) date) runs. Successfully unknown) cardioverted and continues to be in sinus (unknown) (no (unknown) (unknown) tach, was (units (unkn own) date) asymptomatic, and unknown) pacer worked appropriately and resolved to sinus. (unknown) (no (unknown) (unknown) the (units (unkno wn) date) cardioversion-patie unknown) nt should follow-up with Cardiology upon discharge for (unknown) (no (unknown) (unknown) therapies yet. (units (unknown) date) Denies fever, unknown) chills, chest pain, shortness of breath. (unknown) (no (unknown) (unknown) today; this time (units (unknown) date) is exclusive of unknown) procedural time. 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, pt on three medications with xerostomia Result panel 278 (unknown) (no (unknown) (unknown) (no value) (units (unk nown) date) unknown) (unknown) (no (unknown) (unknown) (past 8 hours): (units (unknown) date) unknown) (unknown) (no (unknown) (unknown) - appreciate (units (u nknown) date) dietary unknown) consultation (unknown) (no (unknown) (unknown) - continue PT / OT (units (unknown) date) and attempt to work unknown) on pain control, especially with (unknown) (no (unknown) (unknown) -In ED patient was (units (unknown) date) in AFib with RVR unknown) heart rates 143-130, and 2 episodes of V (unknown) (no (unknown) (unknown) -after arrival on (units (unknown) date) the floor the unknown) patient has demonstrated a couple runs of V (unknown) (no (unknown) (unknown) -continue (units (unkn own) date) omeprazole unknown) (unknown) (no (unknown) (unknown) -continue (units (unkn own) date) tamsulosin unknown) (unknown) (no (unknown) (unknown) -it should be (units ( unknown) date) noted that Dr. mendoza) Brianda interrogated the pacemaker which did not (unknown) (no (unknown) (unknown) 10/24/22 10/24/22 (units (unknown) date) 10/24/22 unknown) (unknown) (no (unknown) (unknown) 10/25/22 10/25/22 (units (unknown) date) 10/25/22 unknown) (unknown) (no (unknown) (unknown) 10/25/22 03:45 (units (unknown) date) unknown) (unknown) (no (unknown) (unknown) 10/25/22 1729 (units ( unknown) date) unknown) (unknown) (no (unknown) (unknown) 10/25/22 (units (unkno wn) date) unknown) (unknown) (no (unknown) (unknown) 03:45 03:45 03:45 (units (unknown) date) unknown) (unknown) (no (unknown) (unknown) 03:45 10:12 10:12 (units (unknown) date) unknown) (unknown) (no (unknown) (unknown) [id number] (units (unkno wn) date) unknown) (unknown) (no (unknown) (unknown) 1. AFib with RVR, (units (unknown) date) acute on chronic, unknown) on Xarelto, ventricular tachycardia, (unknown) (no (unknown) (unknown) 12:00 10/25/22 (units (unknown) date) unknown) (unknown) (no (unknown) (unknown) 15:00 (units (unkno wn) date) unknown) (unknown) (no (unknown) (unknown) 16:40 16:40 16:40 (units (unknown) date) unknown) (unknown) (no (unknown) (unknown) 16:55 18:20 18:20 (units (unknown) date) unknown) (unknown) (no (unknown) (unknown) 18:20 18:20 22:40 (units (unknown) date) unknown) (unknown) (no (unknown) (unknown) 2. Unstable gait, (units (unknown) date) frequent GLF falls, unknown) resulting in multiple pathologic (unknown) (no (unknown) (unknown) 3. Moderate (units (unk nown) date) Malnutrition r/t unknown) difficulty with self-care and difficulty eating aeb (unknown) (no (unknown) (unknown) 4. BPH, chronic, (units (unknown) date) present on unknown) admission (unknown) (no (unknown) (unknown) 5. GERD, chronic, (units (unknown) date) present on unknown) admission (unknown) (no (unknown) (unknown) 86 M admitted with (units (unknown) date) difficult to unknown) control pain as a result of multiple rib and (unknown) (no (unknown) (unknown) ALT 27 (units (unkno wn) date) unknown) (unknown) (no (unknown) (unknown) ALT (units (unkno wn) date) unknown) (unknown) (no (unknown) (unknown) APTT 36 (units (unkno wn) date) unknown) (unknown) (no (unknown) (unknown) APTT (units (unkno wn) date) unknown) (unknown) (no (unknown) (unknown) AST 32 (units (unkno wn) date) unknown) (unknown) (no (unknown) (unknown) AST (units (unkno wn) date) unknown) (unknown) (no (unknown) (unknown) Abdomen: S NT ND. (units (unknown) date) unknown) (unknown) (no (unknown) (unknown) Age/Sex: 86 / M (units (unknown) date) unknown) (unknown) (no (unknown) (unknown) Albumin 3.7 (units (un known) date) unknown) (unknown) (no (unknown) (unknown) Albumin (units (unkno wn) date) unknown) (unknown) (no (unknown) (unknown) Albumin/Globulin (units (unknown) date) Ratio 0.9 L unknown) (unknown) (no (unknown) (unknown) Albumin/Globulin (units (unknown) date) Ratio unknown) (unknown) (no (unknown) (unknown) Alkaline (units (unkno wn) date) Phosphatase 108 unknown) (unknown) (no (unknown) (unknown) Alkaline (units (unkno wn) date) Phosphatase unknown) (unknown) (no (unknown) (unknown) Assessment + Plan (units (unknown) date) narrative: unknown) (unknown) (no (unknown) (unknown) Assessment + Plan (units (unknown) date) unknown) (unknown) (no (unknown) (unknown) BPH (benign (units (un known) date) prostatic unknown) hyperplasia) (unknown) (no (unknown) (unknown) BUN 9 (units (unkno wn) date) unknown) (unknown) (no (unknown) (unknown) BUN (units (unkno wn) date) unknown) (unknown) (no (unknown) (unknown) BUN/Creatinine (units (unknown) date) Ratio 11.3 unknown) (unknown) (no (unknown) (unknown) BUN/Creatinine (units (unknown) date) Ratio 13.8 unknown) (unknown) (no (unknown) (unknown) BUN/Creatinine (units (unknown) date) Ratio unknown) (unknown) (no (unknown) (unknown) Baso # (Auto) 100 (units (unknown) date) unknown) (unknown) (no (unknown) (unknown) Baso # (Auto) (units ( unknown) date) unknown) (unknown) (no (unknown) (unknown) Baso % (Auto) 1.0 (units (unknown) date) unknown) (unknown) (no (unknown) (unknown) Baso % (Auto) (units ( unknown) date) unknown) (unknown) (no (unknown) (unknown) Blood Pressure (units (unknown) date) 127/76 111/64 unknown) (unknown) (no (unknown) (unknown) CK-MB (CK-2) Rel (units (unknown) date) Index TNP unknown) (unknown) (no (unknown) (unknown) CK-MB (CK-2) Rel (units (unknown) date) Index unknown) (unknown) (no (unknown) (unknown) CK-MB (CK-2) TNP (units (unknown) date) unknown) (unknown) (no (unknown) (unknown) CK-MB (CK-2) (units (u nknown) date) unknown) (unknown) (no (unknown) (unknown) COVID PCR: (units (unk nown) date) Negative unknown) (unknown) (no (unknown) (unknown) Calcium 8.3 L (units ( unknown) date) unknown) (unknown) (no (unknown) (unknown) Calcium 9.0 (units (un known) date) unknown) (unknown) (no (unknown) (unknown) Calcium (units (unkno wn) date) unknown) (unknown) (no (unknown) (unknown) Carbon Dioxide 21 (units (unknown) date) L unknown) (unknown) (no (unknown) (unknown) Carbon Dioxide 23 (units (unknown) date) unknown) (unknown) (no (unknown) (unknown) Carbon Dioxide (units (unknown) date) unknown) (unknown) (no (unknown) (unknown) Cardio:?RRR no (units (unknown) date) m/r/g. unknown) (unknown) (no (unknown) (unknown) Chloride 106 (units (u nknown) date) unknown) (unknown) (no (unknown) (unknown) Chloride 107 (units (u nknown) date) unknown) (unknown) (no (unknown) (unknown) Chloride (units (unkno wn) date) unknown) (unknown) (no (unknown) (unknown) Cholesterol 104 L (units (unknown) date) unknown) (unknown) (no (unknown) (unknown) Cholesterol (units (un known) date) unknown) (unknown) (no (unknown) (unknown) Chronic (units (unkno wn) date) anticoagulation unknown) (unknown) (no (unknown) (unknown) Code status: Full (units (unknown) date) unknown) (unknown) (no (unknown) (unknown) Creatinine 0.65 L (units (unknown) date) unknown) (unknown) (no (unknown) (unknown) Creatinine 0.80 (units (unknown) date) unknown) (unknown) (no (unknown) (unknown) Creatinine (units (unk nown) date) unknown) (unknown) (no (unknown) (unknown) Critical Care (units ( unknown) date) time: unknown) (unknown) (no (unknown) (unknown) : 1935 (units (unknown) date) Acct:[id number] unknown) (unknown) (no (unknown) (unknown) DVT/VTE (units (unkno wn) date) prophylaxis: unknown) Patient on Xarelto, SCDs only (unknown) (no (unknown) (unknown) Date Patient Seen: (units (unknown) date) 10/25/22 unknown) (unknown) (no (unknown) (unknown) Date of Service: (units (unknown) date) 10/24/22 unknown) (unknown) (no (unknown) (unknown) Disposition: (units (u nknown) date) Observation, likely unknown) home vs SNF in 1-2 days depending on mobility (unknown) (no (unknown) (unknown) Eos # (Auto) 200 (units (unknown) date) unknown) (unknown) (no (unknown) (unknown) Eos # (Auto) (units (u nknown) date) unknown) (unknown) (no (unknown) (unknown) Eos % (Auto) 1.8 L (units (unknown) date) unknown) (unknown) (no (unknown) (unknown) Eos % (Auto) (units (u nknown) date) unknown) (unknown) (no (unknown) (unknown) Estimated GFR > 60 (units (unknown) date) unknown) (unknown) (no (unknown) (unknown) Estimated GFR (units ( unknown) date) unknown) (unknown) (no (unknown) (unknown) Ethyl Alcohol < 10 (units (unknown) date) unknown) (unknown) (no (unknown) (unknown) Ethyl Alcohol (units ( unknown) date) unknown) (unknown) (no (unknown) (unknown) Exam Narrative: (units (unknown) date) unknown) (unknown) (no (unknown) (unknown) Exam (units (unkno wn) date) unknown) (unknown) (no (unknown) (unknown) Extremities: No (units (unknown) date) edema or joint unknown) effusions. No cyanosis or clubbing. (unknown) (no (unknown) (unknown) Family History (units (unknown) date) (Reviewed 10/25/22 unknown) @ 04:01 by Ana Maria Ortega [facility]) (unknown) (no (unknown) (unknown) Father No (units (unknown) date) problems noted. unknown) (unknown) (no (unknown) (unknown) Free T4 1.09 (units (u nknown) date) unknown) (unknown) (no (unknown) (unknown) Free T4 (units (unkno wn) date) unknown) (unknown) (no (unknown) (unknown) General:? elderly (units (unknown) date) male, in no unknown) distress at this time. (unknown) (no (unknown) (unknown) Globulin 4.2 H (units (unknown) date) unknown) (unknown) (no (unknown) (unknown) Globulin (units (unkno wn) date) unknown) (unknown) (no (unknown) (unknown) Glucose 127 H (units ( unknown) date) unknown) (unknown) (no (unknown) (unknown) Glucose 89 (units (unk nown) date) unknown) (unknown) (no (unknown) (unknown) Glucose (units (unkno wn) date) unknown) (unknown) (no (unknown) (unknown) HDL Cholesterol 34 (units (unknown) date) L unknown) (unknown) (no (unknown) (unknown) HDL Cholesterol (units (unknown) date) unknown) (unknown) (no (unknown) (unknown) HEENT:? (units (unkno wn) date) Normocephalic, unknown) atraumatic, extraocular muscles intact, oral pharynx is (unknown) (no (unknown) (unknown) Hct 39.2 L (units (unk nown) date) unknown) (unknown) (no (unknown) (unknown) Hct (units (unkno wn) date) unknown) (unknown) (no (unknown) (unknown) Hemoglobin A1c 5.1 (units (unknown) date) unknown) (unknown) (no (unknown) (unknown) Hemoglobin A1c (units (unknown) date) unknown) (unknown) (no (unknown) (unknown) Hgb 13.6 (units (unkno wn) date) unknown) (unknown) (no (unknown) (unknown) Hgb (units (unkno wn) date) unknown) (unknown) (no (unknown) (unknown) 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 (unknown) (no (unknown) (unknown) I spent a total of (units (unknown) date) [] minutes of unknown) critical care time on this patient's care (unknown) (no (unknown) (unknown) INR 1.5 H (units (unkn own) date) unknown) (unknown) (no (unknown) (unknown) INR (units (unkno wn) date) unknown) (unknown) (no (unknown) (unknown) Interval history: (units (unknown) date) unknown) (unknown) (no (unknown) (unknown) [facility] (units (unknown) date) [address] [place] [address] unknown) [place] [address] (unknown) (no (unknown) (unknown) Nicolas Torrez (units (unknown) date) 86-year-old male unknown) slightly poor historian with history of AFib on (unknown) (no (unknown) (unknown) LDL Cholesterol, (units (unknown) date) Calc 55 unknown) (unknown) (no (unknown) (unknown) LDL Cholesterol, (units (unknown) date) Calc unknown) (unknown) (no (unknown) (unknown) Laboratory Results (units (unknown) date) - last 24 hr unknown) (unknown) (no (unknown) (unknown) Labs (units (unkno wn) date) unknown) (unknown) (no (unknown) (unknown) Labs: (units (unkno wn) date) unknown) (unknown) (no (unknown) (unknown) Lactate 0.9 (units (un known) date) unknown) (unknown) (no (unknown) (unknown) Lactate (units (unkno wn) date) unknown) (unknown) (no (unknown) (unknown) Lipase 169 (units (unk nown) date) unknown) (unknown) (no (unknown) (unknown) Lipase (units (unkno wn) date) unknown) (unknown) (no (unknown) (unknown) Lungs:? CTA b/l no (units (unknown) date) wheezing rhonchi or unknown) rales. (unknown) (no (unknown) (unknown) Lymph # (Auto) (units (unknown) date) 1600 unknown) (unknown) (no (unknown) (unknown) Lymph # (Auto) (units (unknown) date) unknown) (unknown) (no (unknown) (unknown) Lymph % (Auto) (units (unknown) date) 17.8 L unknown) (unknown) (no (unknown) (unknown) Lymph % (Auto) (units (unknown) date) unknown) (unknown) (no (unknown) (unknown) MCH 34.0 (units (unkno wn) date) unknown) (unknown) (no (unknown) (unknown) MCH (units (unkno wn) date) unknown) (unknown) (no (unknown) (unknown) MCHC 34.6 (units (unkn own) date) unknown) (unknown) (no (unknown) (unknown) MCHC (units (unkno wn) date) unknown) (unknown) (no (unknown) (unknown) MCV 98.1 (units (unkno wn) date) unknown) (unknown) (no (unknown) (unknown) MCV (units (unkno wn) date) unknown) (unknown) (no (unknown) (unknown) Magnesium 1.8 (units ( unknown) date) unknown) (unknown) (no (unknown) (unknown) Magnesium 1.9 (units ( unknown) date) unknown) (unknown) (no (unknown) (unknown) Magnesium (units (unkn own) date) unknown) (unknown) (no (unknown) (unknown) Medical History (units (unknown) date) (Updated 10/25/22 @ unknown) 04:00 by RAFAELA Mercado) (unknown) (no (unknown) (unknown) Micro UA Comment (units (unknown) date) Microscopic normal unknown) (unknown) (no (unknown) (unknown) Micro UA Comment (units (unknown) date) unknown) (unknown) (no (unknown) (unknown) Brule # (Auto) 1100 (units (unknown) date) H unknown) (unknown) (no (unknown) (unknown) Brule # (Auto) (units ( unknown) date) unknown) (unknown) (no (unknown) (unknown) Brule % (Auto) 11.9 (units (unknown) date) unknown) (unknown) (no (unknown) (unknown) Brule % (Auto) (units ( unknown) date) unknown) (unknown) (no (unknown) (unknown) Mother (units (unknown) date) Cancer unknown) (unknown) (no (unknown) (unknown) Musculoskeletal:? (units (unknown) date) Muscle strength and unknown) tone are equal within normal limits, no (unknown) (no (unknown) (unknown) NT-Pro-B Natriuret (units (unknown) date) Pep 3110 H unknown) (unknown) (no (unknown) (unknown) NT-Pro-B Natriuret (units (unknown) date) Pep unknown) (unknown) (no (unknown) (unknown) Narrative (units (unkn own) date) unknown) (unknown) (no (unknown) (unknown) Neck: supple and (units (unknown) date) symmetric, trachea unknown) is midline, no cervical adenopathy. (unknown) (no (unknown) (unknown) Neuro:? Alert and (units (unknown) date) orientated x3,? unknown) sensation to touch intact in all extremities, (unknown) (no (unknown) (unknown) Neut # (Auto) 6100 (units (unknown) date) unknown) (unknown) (no (unknown) (unknown) Neut # (Auto) (units ( unknown) date) unknown) (unknown) (no (unknown) (unknown) Neut % (Auto) 67.5 (units (unknown) date) unknown) (unknown) (no (unknown) (unknown) Neut % (Auto) (units ( unknown) date) unknown) (unknown) (no (unknown) (unknown) Objective (units (unkn own) date) unknown) (unknown) (no (unknown) (unknown) Osteoporosis (units (u nknown) date) unknown) (unknown) (no (unknown) (unknown) Oxygen Delivery (units (unknown) date) Method Room Air unknown) (unknown) (no (unknown) (unknown) Oxygen Flow Rate 0 (units (unknown) date) 0 unknown) (unknown) (no (unknown) (unknown) Oxygen Flow Rate 0 (units (unknown) date) unknown) (unknown) (no (unknown) (unknown) PFSH (units (unkno wn) date) unknown) (unknown) (no (unknown) (unknown) PT 17.4 H (units (unkn own) date) unknown) (unknown) (no (unknown) (unknown) PT 17.7 H (units (unkn own) date) unknown) (unknown) (no (unknown) (unknown) PT (units (unkno wn) date) unknown) (unknown) (no (unknown) (unknown) Patient: (units (unkno wn) date) Nicolas Neely unknown) MR#: [id number] (unknown) (no (unknown) (unknown) Plt Count 191 (units ( unknown) date) unknown) (unknown) (no (unknown) (unknown) Plt Count (units (unkn own) date) unknown) (unknown) (no (unknown) (unknown) Potassium 3.3 L (units (unknown) date) unknown) (unknown) (no (unknown) (unknown) Potassium 3.8 (units ( unknown) date) unknown) (unknown) (no (unknown) (unknown) Potassium (units (unkn own) date) unknown) (unknown) (no (unknown) (unknown) Procalcitonin 0.05 (units (unknown) date) unknown) (unknown) (no (unknown) (unknown) Procalcitonin (units ( unknown) date) unknown) (unknown) (no (unknown) (unknown) Progress Note (units ( unknown) date) unknown) (unknown) (no (unknown) (unknown) Provider: (units (unkn own) date) Franck Winston D.O. unknown) (unknown) (no (unknown) (unknown) Psych:? Patient (units (unknown) date) has a well-kept unknown) appearance, appropriate affect, mental status (unknown) (no (unknown) (unknown) Pulse Oximetry 96 (units (unknown) date) 95 unknown) (unknown) (no (unknown) (unknown) Pulse Rate 71 61 (units (unknown) date) unknown) (unknown) (no (unknown) (unknown) RBC 3.99 L (units (unk nown) date) unknown) (unknown) (no (unknown) (unknown) RBC (units (unkno wn) date) unknown) (unknown) (no (unknown) (unknown) RDW 14.4 (units (unkno wn) date) unknown) (unknown) (no (unknown) (unknown) RDW (units (unkno wn) date) unknown) (unknown) (no (unknown) (unknown) Respiratory Rate (units (unknown) date) 17 17 unknown) (unknown) (no (unknown) (unknown) Result Diagrams: (units (unknown) date) unknown) (unknown) (no (unknown) (unknown) SARS-CoV-2 (PCR) (units (unknown) date) Negative unknown) (unknown) (no (unknown) (unknown) SARS-CoV-2 (PCR) (units (unknown) date) unknown) (unknown) (no (unknown) (unknown) Signed (units (unkno wn) date) By:<Electronically unknown) signed by Franck Winston D.O.> (unknown) (no (unknown) (unknown) Skin:? Pale,? Warm (units (unknown) date) to touch,dry and unknown) intact without rashes, ulcerations or (unknown) (no (unknown) (unknown) Smoking Status: (units (unknown) date) Never smoker unknown) (unknown) (no (unknown) (unknown) Social History (units (unknown) date) unknown) (unknown) (no (unknown) (unknown) Sodium 138 (units (unk nown) date) unknown) (unknown) (no (unknown) (unknown) Sodium 139 (units (unk nown) date) unknown) (unknown) (no (unknown) (unknown) Sodium (units (unkno wn) date) unknown) (unknown) (no (unknown) (unknown) Subjective (units (unk nown) date) unknown) (unknown) (no (unknown) (unknown) Surgical History (units (unknown) date) (Updated 10/25/22 @ unknown) 04:00 by RAFAELA Mercado) (unknown) (no (unknown) (unknown) Surrogate decision (units (unknown) date) maker: Son, patient unknown) also has a full-time caregiver Davonte (unknown) (no (unknown) (unknown) TSH 8.95 H (units (unk nown) date) unknown) (unknown) (no (unknown) (unknown) TSH (units (unkno wn) date) unknown) (unknown) (no (unknown) (unknown) Temperature 97.8 F (units (unknown) date) 97.0 F L unknown) (unknown) (no (unknown) (unknown) Time Spent With (units (unknown) date) Patient unknown) (unknown) (no (unknown) (unknown) Total Bilirubin (units (unknown) date) 1.1 unknown) (unknown) (no (unknown) (unknown) Total Bilirubin (units (unknown) date) unknown) (unknown) (no (unknown) (unknown) Total Creatine (units (unknown) date) Kinase < 20 L unknown) (unknown) (no (unknown) (unknown) Total Creatine (units (unknown) date) Kinase unknown) (unknown) (no (unknown) (unknown) Total Protein 7.9 (units (unknown) date) unknown) (unknown) (no (unknown) (unknown) Total Protein (units ( unknown) date) unknown) (unknown) (no (unknown) (unknown) Triglycerides 75 (units (unknown) date) unknown) (unknown) (no (unknown) (unknown) Triglycerides (units ( unknown) date) unknown) (unknown) (no (unknown) (unknown) Troponin I < 0.012 (units (unknown) date) unknown) (unknown) (no (unknown) (unknown) Troponin I 0.014 (units (unknown) date) unknown) (unknown) (no (unknown) (unknown) Troponin I 0.023 (units (unknown) date) unknown) (unknown) (no (unknown) (unknown) Troponin I (units (unk nown) date) unknown) (unknown) (no (unknown) (unknown) U Benzodiazepines (units (unknown) date) Scrn Negative unknown) (unknown) (no (unknown) (unknown) U Benzodiazepines (units (unknown) date) Scrn unknown) (unknown) (no (unknown) (unknown) U Marijuana (THC) (units (unknown) date) Screen Negative unknown) (unknown) (no (unknown) (unknown) U Marijuana (THC) (units (unknown) date) Screen unknown) (unknown) (no (unknown) (unknown) U Methamphetamines (units (unknown) date) Scrn Negative unknown) (unknown) (no (unknown) (unknown) U Methamphetamines (units (unknown) date) Scrn unknown) (unknown) (no (unknown) (unknown) U Opiates 300ng/mL (units (unknown) date) cut Positive H unknown) (unknown) (no (unknown) (unknown) U Opiates 300ng/mL (units (unknown) date) cut unknown) (unknown) (no (unknown) (unknown) U Tricyclic (units (un known) date) Antidepress unknown) Negative (unknown) (no (unknown) (unknown) U Tricyclic (units (un known) date) Antidepress unknown) (unknown) (no (unknown) (unknown) Ur Amphetamines (units (unknown) date) Screen Negative unknown) (unknown) (no (unknown) (unknown) Ur Amphetamines (units (unknown) date) Screen unknown) (unknown) (no (unknown) (unknown) Ur Barbiturates (units (unknown) date) Screen Negative unknown) (unknown) (no (unknown) (unknown) Ur Barbiturates (units (unknown) date) Screen unknown) (unknown) (no (unknown) (unknown) Ur Culture (units (unk nown) date) Indicated? Cult not unknown) indicated (unknown) (no (unknown) (unknown) Ur Culture (units (unk nown) date) Indicated? unknown) (unknown) (no (unknown) (unknown) Ur Leukocyte (units (u nknown) date) Esterase Negative unknown) (unknown) (no (unknown) (unknown) Ur Leukocyte (units (u nknown) date) Esterase unknown) (unknown) (no (unknown) (unknown) Ur MDMA Scrn (units (u nknown) date) (Ecstasy) Negative unknown) (unknown) (no (unknown) (unknown) Ur MDMA Scrn (units (u nknown) date) (Ecstasy) unknown) (unknown) (no (unknown) (unknown) Ur Oxycodone (units (u nknown) date) Screen Positive H unknown) (unknown) (no (unknown) (unknown) Ur Oxycodone (units (u nknown) date) Screen unknown) (unknown) (no (unknown) (unknown) Ur Phencyclidine (units (unknown) date) Scrn Negative unknown) (unknown) (no (unknown) (unknown) Ur Phencyclidine (units (unknown) date) Scrn unknown) (unknown) (no (unknown) (unknown) Ur Specific (units (un known) date) Jerome 1.015 unknown) (unknown) (no (unknown) (unknown) Ur Specific (units (un known) date) Jerome unknown) (unknown) (no (unknown) (unknown) Urine Appearance (units (unknown) date) Clear unknown) (unknown) (no (unknown) (unknown) Urine Appearance (units (unknown) date) unknown) (unknown) (no (unknown) (unknown) Urine Bacteria (units (unknown) date) None seen unknown) (unknown) (no (unknown) (unknown) Urine Bacteria (units (unknown) date) unknown) (unknown) (no (unknown) (unknown) Urine Bilirubin (units (unknown) date) Negative unknown) (unknown) (no (unknown) (unknown) Urine Bilirubin (units (unknown) date) unknown) (unknown) (no (unknown) (unknown) Urine Cocaine (units ( unknown) date) Screen Negative unknown) (unknown) (no (unknown) (unknown) Urine Cocaine (units ( unknown) date) Screen unknown) (unknown) (no (unknown) (unknown) Urine Color Yellow (units (unknown) date) unknown) (unknown) (no (unknown) (unknown) Urine Color (units (un known) date) unknown) (unknown) (no (unknown) (unknown) Urine Glucose (UA) (units (unknown) date) Negative unknown) (unknown) (no (unknown) (unknown) Urine Glucose (UA) (units (unknown) date) unknown) (unknown) (no (unknown) (unknown) Urine Ketones (units ( unknown) date) Trace H unknown) (unknown) (no (unknown) (unknown) Urine Ketones (units ( unknown) date) unknown) (unknown) (no (unknown) (unknown) Urine Methadone (units (unknown) date) Screen Negative unknown) (unknown) (no (unknown) (unknown) Urine Methadone (units (unknown) date) Screen unknown) (unknown) (no (unknown) (unknown) Urine Nitrate (units ( unknown) date) Negative unknown) (unknown) (no (unknown) (unknown) Urine Nitrate (units ( unknown) date) unknown) (unknown) (no (unknown) (unknown) Urine Occult Blood (units (unknown) date) Trace-intact unknown) (unknown) (no (unknown) (unknown) Urine Occult Blood (units (unknown) date) unknown) (unknown) (no (unknown) (unknown) Urine Protein (units ( unknown) date) Negative unknown) (unknown) (no (unknown) (unknown) Urine Protein (units ( unknown) date) unknown) (unknown) (no (unknown) (unknown) Urine RBC None (units (unknown) date) seen unknown) (unknown) (no (unknown) (unknown) Urine RBC (units (unkn own) date) unknown) (unknown) (no (unknown) (unknown) Urine Urobilinogen (units (unknown) date) 0.2 unknown) (unknown) (no (unknown) (unknown) Urine Urobilinogen (units (unknown) date) unknown) (unknown) (no (unknown) (unknown) Urine WBC None (units (unknown) date) seen unknown) (unknown) (no (unknown) (unknown) Urine WBC (units (unkn own) date) unknown) (unknown) (no (unknown) (unknown) Urine pH 6.0 (units (u nknown) date) unknown) (unknown) (no (unknown) (unknown) Urine pH (units (unkno wn) date) unknown) (unknown) (no (unknown) (unknown) Vital Signs (units (un known) date) unknown) (unknown) (no (unknown) (unknown) WBC 9.0 (units (unkno wn) date) unknown) (unknown) (no (unknown) (unknown) WBC (units (unkno wn) date) unknown) (unknown) (no (unknown) (unknown) Xarelto for many (units (unknown) date) years, pacemaker unknown) placement for sick sinus syndrome, history of (unknown) (no (unknown) (unknown) [Embedded Image (units (unknown) date) Not Available] unknown) (unknown) (no (unknown) (unknown) ability to function (units (unknown) date) home, safety, and unknown) manage ADLs. He was found to have multiple (unknown) (no (unknown) (unknown) alcohol intake: (units (unknown) date) current unknown) (unknown) (no (unknown) (unknown) ambulation. Acute (units (unknown) date) fracture seems to unknown) be in T11 per radiology reads (unknown) (no (unknown) (unknown) and pain control. (units (unknown) date) unknown) (unknown) (no (unknown) (unknown) appeared to be (units (unknown) date) functioning unknown) normally per tech. (unknown) (no (unknown) (unknown) attitude thought (units (unknown) date) context and unknown) judgment are appropriate for age. (unknown) (no (unknown) (unknown) clear and mucous (units (unknown) date) membranes are unknown) moist. (unknown) (no (unknown) (unknown) compression (units (un known) date) fractures, unknown) bilateral rib fractures, and a left clavicular fracture. (unknown) (no (unknown) (unknown) compression (units (un known) date) fractures, lumbar, unknown) clavicle-left, ribs-bilaterally, with (unknown) (no (unknown) (unknown) deformity. (units (unk nown) date) unknown) (unknown) (no (unknown) (unknown) evaluation of (units ( unknown) date) pacemaker function. unknown) Tech did interrogate PPM in the ER and it (unknown) (no (unknown) (unknown) failure, present (units (unknown) date) on admission- unknown) resolved (unknown) (no (unknown) (unknown) fatigue, and (units (u nknown) date) worsening severe unknown) midline low back pain, that was impairing his (unknown) (no (unknown) (unknown) ground level fall (units (unknown) date) September of 2022. unknown) Presented to ED due to increasing SOB, (unknown) (no (unknown) (unknown) household members: (units (unknown) date) none and other unknown) (unknown) (no (unknown) (unknown) intermittent, (units ( unknown) date) acute on chronic, unknown) with implanted pacemaker, chronic, acute (unknown) (no (unknown) (unknown) lumbar fractures. (units (unknown) date) He is doing well at unknown) rest today, has not ambulated with (unknown) (no (unknown) (unknown) multiple lumbar (units (unknown) date) compression unknown) fractures, clavicle fracture, rib fractures due to a (unknown) (no (unknown) (unknown) no gross deficits (units (unknown) date) noted of cranial unknown) nerves. Suspect mild cognitive impairment (unknown) (no (unknown) (unknown) osteoporosis, (units ( unknown) date) acute on chronic, unknown) present on admission (unknown) (no (unknown) (unknown) petechiae.? (units (un known) date) unknown) (unknown) (no (unknown) (unknown) pt with 17% (units (un known) date) unintentional unknown) weight loss in 1y, BMI 22.8 (borderline low for age), (unknown) (no (unknown) (unknown) register or (units (unk nown) date) acknowledge the unknown) atrial fibrillation with RVR, the runs of V-tach nor (unknown) (no (unknown) (unknown) rhythm. (units (unkno wn) date) unknown) (unknown) (no (unknown) (unknown) side effects, pt (units (unknown) date) lives in home with unknown) caregiver, MNA score 11. (unknown) (no (unknown) (unknown) tach 8-10 beat (units (unknown) date) runs. Successfully unknown) cardioverted and continues to be in sinus (unknown) (no (unknown) (unknown) tach, was (units (unkn own) date) asymptomatic, and unknown) pacer worked appropriately and resolved to sinus. (unknown) (no (unknown) (unknown) the (units (unkno wn) date) cardioversion-patie unknown) nt should follow-up with Cardiology upon discharge for (unknown) (no (unknown) (unknown) therapies yet. (units (unknown) date) Denies fever, unknown) chills, chest pain, shortness of breath. (unknown) (no (unknown) (unknown) today; this time (units (unknown) date) is exclusive of unknown) procedural time. 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, pt on three medications with xerostomia Result panel 279 (unknown) (no (unknown) (unknown) (no value) (units (unk nown) date) unknown) (unknown) (no (unknown) (unknown) (past 8 hours): (units (unknown) date) unknown) (unknown) (no (unknown) (unknown) 10/24/22 10/24/22 (units (unknown) date) 10/24/22 unknown) (unknown) (no (unknown) (unknown) 10/24/22 10/25/22 (units (unknown) date) 10/25/22 unknown) (unknown) (no (unknown) (unknown) 10/25/22 10/25/22 (units (unknown) date) 10/25/22 unknown) (unknown) (no (unknown) (unknown) 10/25/22 03:45 (units (unknown) date) unknown) (unknown) (no (unknown) (unknown) 10/25/22 (units (unkno wn) date) unknown) (unknown) (no (unknown) (unknown) 03:45 03:45 10:12 (units (unknown) date) unknown) (unknown) (no (unknown) (unknown) [id number] (units (unkno wn) date) unknown) (unknown) (no (unknown) (unknown) 10:12 (units (unkno wn) date) unknown) (unknown) (no (unknown) (unknown) 15:00 (units (unkno wn) date) unknown) (unknown) (no (unknown) (unknown) 16:40 16:40 18:20 (units (unknown) date) unknown) (unknown) (no (unknown) (unknown) 18:20 18:20 18:20 (units (unknown) date) unknown) (unknown) (no (unknown) (unknown) 22:40 03:45 03:45 (units (unknown) date) unknown) (unknown) (no (unknown) (unknown) Age/Sex: 86 / M (units (unknown) date) unknown) (unknown) (no (unknown) (unknown) Albumin 3.7 (units (un known) date) unknown) (unknown) (no (unknown) (unknown) Albumin (units (unkno wn) date) unknown) (unknown) (no (unknown) (unknown) Albumin/Globulin (units (unknown) date) Ratio 0.9 L unknown) (unknown) (no (unknown) (unknown) Albumin/Globulin (units (unknown) date) Ratio unknown) (unknown) (no (unknown) (unknown) Assessment + Plan (units (unknown) date) unknown) (unknown) (no (unknown) (unknown) BPH (benign (units (un known) date) prostatic unknown) hyperplasia) (unknown) (no (unknown) (unknown) BUN 9 (units (unkno wn) date) unknown) (unknown) (no (unknown) (unknown) BUN (units (unkno wn) date) unknown) (unknown) (no (unknown) (unknown) BUN/Creatinine (units (unknown) date) Ratio 13.8 unknown) (unknown) (no (unknown) (unknown) BUN/Creatinine (units (unknown) date) Ratio unknown) (unknown) (no (unknown) (unknown) Baso # (Auto) 100 (units (unknown) date) unknown) (unknown) (no (unknown) (unknown) Baso # (Auto) (units ( unknown) date) unknown) (unknown) (no (unknown) (unknown) Baso % (Auto) 1.0 (units (unknown) date) unknown) (unknown) (no (unknown) (unknown) Baso % (Auto) (units ( unknown) date) unknown) (unknown) (no (unknown) (unknown) Blood Pressure (units (unknown) date) 111/64 unknown) (unknown) (no (unknown) (unknown) Calcium 8.3 L (units ( unknown) date) unknown) (unknown) (no (unknown) (unknown) Calcium (units (unkno wn) date) unknown) (unknown) (no (unknown) (unknown) Carbon Dioxide 21 (units (unknown) date) L unknown) (unknown) (no (unknown) (unknown) Carbon Dioxide (units (unknown) date) unknown) (unknown) (no (unknown) (unknown) Chloride 107 (units (u nknown) date) unknown) (unknown) (no (unknown) (unknown) Chloride (units (unkno wn) date) unknown) (unknown) (no (unknown) (unknown) Cholesterol 104 L (units (unknown) date) unknown) (unknown) (no (unknown) (unknown) Cholesterol (units (un known) date) unknown) (unknown) (no (unknown) (unknown) Chronic (units (unkno wn) date) anticoagulation unknown) (unknown) (no (unknown) (unknown) Creatinine 0.65 L (units (unknown) date) unknown) (unknown) (no (unknown) (unknown) Creatinine (units (unk nown) date) unknown) (unknown) (no (unknown) (unknown) Critical Care (units ( unknown) date) time: unknown) (unknown) (no (unknown) (unknown) : 1935 (units (unknown) date) Acct:[id number] unknown) (unknown) (no (unknown) (unknown) Date Patient Seen: (units (unknown) date) 10/25/22 unknown) (unknown) (no (unknown) (unknown) Date of Service: (units (unknown) date) 10/24/22 unknown) (unknown) (no (unknown) (unknown) Eos # (Auto) 200 (units (unknown) date) unknown) (unknown) (no (unknown) (unknown) Eos # (Auto) (units (u nknown) date) unknown) (unknown) (no (unknown) (unknown) Eos % (Auto) 1.8 L (units (unknown) date) unknown) (unknown) (no (unknown) (unknown) Eos % (Auto) (units (u nknown) date) unknown) (unknown) (no (unknown) (unknown) Estimated GFR > 60 (units (unknown) date) unknown) (unknown) (no (unknown) (unknown) Estimated GFR (units ( unknown) date) unknown) (unknown) (no (unknown) (unknown) Ethyl Alcohol < 10 (units (unknown) date) unknown) (unknown) (no (unknown) (unknown) Ethyl Alcohol (units ( unknown) date) unknown) (unknown) (no (unknown) (unknown) Exam (units (unkno wn) date) unknown) (unknown) (no (unknown) (unknown) Family History (units (unknown) date) (Reviewed 10/25/22 unknown) @ 04:01 by ALSESIO Mercado) (unknown) (no (unknown) (unknown) Father No (units (unknown) date) problems noted. unknown) (unknown) (no (unknown) (unknown) Free T4 1.09 (units (u nknown) date) unknown) (unknown) (no (unknown) (unknown) Free T4 (units (unkno wn) date) unknown) (unknown) (no (unknown) (unknown) Globulin 4.2 H (units (unknown) date) unknown) (unknown) (no (unknown) (unknown) Globulin (units (unkno wn) date) unknown) (unknown) (no (unknown) (unknown) Glucose 127 H (units ( unknown) date) unknown) (unknown) (no (unknown) (unknown) Glucose (units (unkno wn) date) unknown) (unknown) (no (unknown) (unknown) HDL Cholesterol 34 (units (unknown) date) L unknown) (unknown) (no (unknown) (unknown) HDL Cholesterol (units (unknown) date) unknown) (unknown) (no (unknown) (unknown) Hct 39.2 L (units (unk nown) date) unknown) (unknown) (no (unknown) (unknown) Hct (units (unkno wn) date) unknown) (unknown) (no (unknown) (unknown) Hemoglobin A1c 5.1 (units (unknown) date) unknown) (unknown) (no (unknown) (unknown) Hemoglobin A1c (units (unknown) date) unknown) (unknown) (no (unknown) (unknown) Hgb 13.6 (units (unkno wn) date) unknown) (unknown) (no (unknown) (unknown) Hgb (units (unkno wn) date) unknown) (unknown) (no (unknown) (unknown) 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 (unknown) (no (unknown) (unknown) I spent a total of (units (unknown) date) [] minutes of unknown) critical care time on this patient's care (unknown) (no (unknown) (unknown) INR 1.5 H (units (unkn own) date) unknown) (unknown) (no (unknown) (unknown) INR (units (unkno wn) date) unknown) (unknown) (no (unknown) (unknown) [facility] (units (unknown) date) [address] unknown) [place] [address] (unknown) (no (unknown) (unknown) LDL Cholesterol, (units (unknown) date) Calc 55 unknown) (unknown) (no (unknown) (unknown) LDL Cholesterol, (units (unknown) date) Calc unknown) (unknown) (no (unknown) (unknown) Laboratory Results (units (unknown) date) - last 24 hr unknown) (unknown) (no (unknown) (unknown) Labs (units (unkno wn) date) unknown) (unknown) (no (unknown) (unknown) Labs: (units (unkno wn) date) unknown) (unknown) (no (unknown) (unknown) Lactate 0.9 (units (un known) date) unknown) (unknown) (no (unknown) (unknown) Lactate (units (unkno wn) date) unknown) (unknown) (no (unknown) (unknown) Lymph # (Auto) (units (unknown) date) 1600 unknown) (unknown) (no (unknown) (unknown) Lymph # (Auto) (units (unknown) date) unknown) (unknown) (no (unknown) (unknown) Lymph % (Auto) (units (unknown) date) 17.8 L unknown) (unknown) (no (unknown) (unknown) Lymph % (Auto) (units (unknown) date) unknown) (unknown) (no (unknown) (unknown) MCH 34.0 (units (unkno wn) date) unknown) (unknown) (no (unknown) (unknown) MCH (units (unkno wn) date) unknown) (unknown) (no (unknown) (unknown) MCHC 34.6 (units (unkn own) date) unknown) (unknown) (no (unknown) (unknown) MCHC (units (unkno wn) date) unknown) (unknown) (no (unknown) (unknown) MCV 98.1 (units (unkno wn) date) unknown) (unknown) (no (unknown) (unknown) MCV (units (unkno wn) date) unknown) (unknown) (no (unknown) (unknown) Magnesium 1.8 (units ( unknown) date) unknown) (unknown) (no (unknown) (unknown) Magnesium (units (unkn own) date) unknown) (unknown) (no (unknown) (unknown) Medical History (units (unknown) date) (Updated 10/25/22 @ unknown) 04:00 by Ana Maria Ortega [facility]) (unknown) (no (unknown) (unknown) Micro UA Comment (units (unknown) date) Microscopic normal unknown) (unknown) (no (unknown) (unknown) Micro UA Comment (units (unknown) date) unknown) (unknown) (no (unknown) (unknown) Brule # (Auto) 1100 (units (unknown) date) H unknown) (unknown) (no (unknown) (unknown) Brule # (Auto) (units ( unknown) date) unknown) (unknown) (no (unknown) (unknown) Brule % (Auto) 11.9 (units (unknown) date) unknown) (unknown) (no (unknown) (unknown) Brule % (Auto) (units ( unknown) date) unknown) (unknown) (no (unknown) (unknown) Mother (units (unknown) date) Cancer unknown) (unknown) (no (unknown) (unknown) NT-Pro-B Natriuret (units (unknown) date) Pep 3110 H unknown) (unknown) (no (unknown) (unknown) NT-Pro-B Natriuret (units (unknown) date) Pep unknown) (unknown) (no (unknown) (unknown) Neut # (Auto) 6100 (units (unknown) date) unknown) (unknown) (no (unknown) (unknown) Neut # (Auto) (units ( unknown) date) unknown) (unknown) (no (unknown) (unknown) Neut % (Auto) 67.5 (units (unknown) date) unknown) (unknown) (no (unknown) (unknown) Neut % (Auto) (units ( unknown) date) unknown) (unknown) (no (unknown) (unknown) Objective (units (unkn own) date) unknown) (unknown) (no (unknown) (unknown) Osteoporosis (units (u nknown) date) unknown) (unknown) (no (unknown) (unknown) Oxygen Delivery (units (unknown) date) Method Room Air unknown) (unknown) (no (unknown) (unknown) Oxygen Flow Rate 0 (units (unknown) date) unknown) (unknown) (no (unknown) (unknown) PFSH (units (unkno wn) date) unknown) (unknown) (no (unknown) (unknown) PT 17.7 H (units (unkn own) date) unknown) (unknown) (no (unknown) (unknown) PT (units (unkno wn) date) unknown) (unknown) (no (unknown) (unknown) Patient: (units (unkno wn) date) Nicolas Neely unknown) MR#: [id number] (unknown) (no (unknown) (unknown) Plt Count 191 (units ( unknown) date) unknown) (unknown) (no (unknown) (unknown) Plt Count (units (unkn own) date) unknown) (unknown) (no (unknown) (unknown) Potassium 3.3 L (units (unknown) date) unknown) (unknown) (no (unknown) (unknown) Potassium (units (unkn own) date) unknown) (unknown) (no (unknown) (unknown) Procalcitonin 0.05 (units (unknown) date) unknown) (unknown) (no (unknown) (unknown) Procalcitonin (units ( unknown) date) unknown) (unknown) (no (unknown) (unknown) Progress Note (units ( unknown) date) unknown) (unknown) (no (unknown) (unknown) Provider: Brooke (units (unknown) date) [place] unknown) (unknown) (no (unknown) (unknown) Pulse Oximetry 95 (units (unknown) date) unknown) (unknown) (no (unknown) (unknown) Pulse Rate 61 (units ( unknown) date) unknown) (unknown) (no (unknown) (unknown) RBC 3.99 L (units (unk nown) date) unknown) (unknown) (no (unknown) (unknown) RBC (units (unkno wn) date) unknown) (unknown) (no (unknown) (unknown) RDW 14.4 (units (unkno wn) date) unknown) (unknown) (no (unknown) (unknown) RDW (units (unkno wn) date) unknown) (unknown) (no (unknown) (unknown) Respiratory Rate (units (unknown) date) 17 unknown) (unknown) (no (unknown) (unknown) Result Diagrams: (units (unknown) date) unknown) (unknown) (no (unknown) (unknown) Signed By: (units (unk nown) date) unknown) (unknown) (no (unknown) (unknown) Smoking Status: (units (unknown) date) Never smoker unknown) (unknown) (no (unknown) (unknown) Social History (units (unknown) date) unknown) (unknown) (no (unknown) (unknown) Sodium 138 (units (unk nown) date) unknown) (unknown) (no (unknown) (unknown) Sodium (units (unkno wn) date) unknown) (unknown) (no (unknown) (unknown) Subjective (units (unk nown) date) unknown) (unknown) (no (unknown) (unknown) Surgical History (units (unknown) date) (Updated 10/25/22 @ unknown) 04:00 by Ana Maria Ortega [facility]) (unknown) (no (unknown) (unknown) TSH 8.95 H (units (unk nown) date) unknown) (unknown) (no (unknown) (unknown) TSH (units (unkno wn) date) unknown) (unknown) (no (unknown) (unknown) Temperature 97.0 F (units (unknown) date) L unknown) (unknown) (no (unknown) (unknown) Time Patient Seen: (units (unknown) date) 17:30 unknown) (unknown) (no (unknown) (unknown) Time Spent With (units (unknown) date) Patient unknown) (unknown) (no (unknown) (unknown) Triglycerides 75 (units (unknown) date) unknown) (unknown) (no (unknown) (unknown) Triglycerides (units ( unknown) date) unknown) (unknown) (no (unknown) (unknown) Troponin I 0.023 (units (unknown) date) 0.014 unknown) (unknown) (no (unknown) (unknown) Troponin I (units (unk nown) date) unknown) (unknown) (no (unknown) (unknown) U Benzodiazepines (units (unknown) date) Scrn Negative unknown) (unknown) (no (unknown) (unknown) U Benzodiazepines (units (unknown) date) Scrn unknown) (unknown) (no (unknown) (unknown) U Marijuana (THC) (units (unknown) date) Screen Negative unknown) (unknown) (no (unknown) (unknown) U Marijuana (THC) (units (unknown) date) Screen unknown) (unknown) (no (unknown) (unknown) U Methamphetamines (units (unknown) date) Scrn Negative unknown) (unknown) (no (unknown) (unknown) U Methamphetamines (units (unknown) date) Scrn unknown) (unknown) (no (unknown) (unknown) U Opiates 300ng/mL (units (unknown) date) cut Positive H unknown) (unknown) (no (unknown) (unknown) U Opiates 300ng/mL (units (unknown) date) cut unknown) (unknown) (no (unknown) (unknown) U Tricyclic (units (un known) date) Antidepress unknown) Negative (unknown) (no (unknown) (unknown) U Tricyclic (units (un known) date) Antidepress unknown) (unknown) (no (unknown) (unknown) Ur Amphetamines (units (unknown) date) Screen Negative unknown) (unknown) (no (unknown) (unknown) Ur Amphetamines (units (unknown) date) Screen unknown) (unknown) (no (unknown) (unknown) Ur Barbiturates (units (unknown) date) Screen Negative unknown) (unknown) (no (unknown) (unknown) Ur Barbiturates (units (unknown) date) Screen unknown) (unknown) (no (unknown) (unknown) Ur Culture (units (unk nown) date) Indicated? Cult not unknown) indicated (unknown) (no (unknown) (unknown) Ur Culture (units (unk nown) date) Indicated? unknown) (unknown) (no (unknown) (unknown) Ur Leukocyte (units (u nknown) date) Esterase Negative unknown) (unknown) (no (unknown) (unknown) Ur Leukocyte (units (u nknown) date) Esterase unknown) (unknown) (no (unknown) (unknown) Ur MDMA Scrn (units (u nknown) date) (Ecstasy) Negative unknown) (unknown) (no (unknown) (unknown) Ur MDMA Scrn (units (u nknown) date) (Ecstasy) unknown) (unknown) (no (unknown) (unknown) Ur Oxycodone (units (u nknown) date) Screen Positive H unknown) (unknown) (no (unknown) (unknown) Ur Oxycodone (units (u nknown) date) Screen unknown) (unknown) (no (unknown) (unknown) Ur Phencyclidine (units (unknown) date) Scrn Negative unknown) (unknown) (no (unknown) (unknown) Ur Phencyclidine (units (unknown) date) Scrn unknown) (unknown) (no (unknown) (unknown) Ur Specific (units (un known) date) Jerome 1.015 unknown) (unknown) (no (unknown) (unknown) Ur Specific (units (un known) date) Jerome unknown) (unknown) (no (unknown) (unknown) Urine Appearance (units (unknown) date) Clear unknown) (unknown) (no (unknown) (unknown) Urine Appearance (units (unknown) date) unknown) (unknown) (no (unknown) (unknown) Urine Bacteria (units (unknown) date) None seen unknown) (unknown) (no (unknown) (unknown) Urine Bacteria (units (unknown) date) unknown) (unknown) (no (unknown) (unknown) Urine Bilirubin (units (unknown) date) Negative unknown) (unknown) (no (unknown) (unknown) Urine Bilirubin (units (unknown) date) unknown) (unknown) (no (unknown) (unknown) Urine Cocaine (units ( unknown) date) Screen Negative unknown) (unknown) (no (unknown) (unknown) Urine Cocaine (units ( unknown) date) Screen unknown) (unknown) (no (unknown) (unknown) Urine Color Yellow (units (unknown) date) unknown) (unknown) (no (unknown) (unknown) Urine Color (units (un known) date) unknown) (unknown) (no (unknown) (unknown) Urine Glucose (UA) (units (unknown) date) Negative unknown) (unknown) (no (unknown) (unknown) Urine Glucose (UA) (units (unknown) date) unknown) (unknown) (no (unknown) (unknown) Urine Ketones (units ( unknown) date) Trace H unknown) (unknown) (no (unknown) (unknown) Urine Ketones (units ( unknown) date) unknown) (unknown) (no (unknown) (unknown) Urine Methadone (units (unknown) date) Screen Negative unknown) (unknown) (no (unknown) (unknown) Urine Methadone (units (unknown) date) Screen unknown) (unknown) (no (unknown) (unknown) Urine Nitrate (units ( unknown) date) Negative unknown) (unknown) (no (unknown) (unknown) Urine Nitrate (units ( unknown) date) unknown) (unknown) (no (unknown) (unknown) Urine Occult Blood (units (unknown) date) Trace-intact unknown) (unknown) (no (unknown) (unknown) Urine Occult Blood (units (unknown) date) unknown) (unknown) (no (unknown) (unknown) Urine Protein (units ( unknown) date) Negative unknown) (unknown) (no (unknown) (unknown) Urine Protein (units ( unknown) date) unknown) (unknown) (no (unknown) (unknown) Urine RBC None (units (unknown) date) seen unknown) (unknown) (no (unknown) (unknown) Urine RBC (units (unkn own) date) unknown) (unknown) (no (unknown) (unknown) Urine Urobilinogen (units (unknown) date) 0.2 unknown) (unknown) (no (unknown) (unknown) Urine Urobilinogen (units (unknown) date) unknown) (unknown) (no (unknown) (unknown) Urine WBC None (units (unknown) date) seen unknown) (unknown) (no (unknown) (unknown) Urine WBC (units (unkn own) date) unknown) (unknown) (no (unknown) (unknown) Urine pH 6.0 (units (u nknown) date) unknown) (unknown) (no (unknown) (unknown) Urine pH (units (unkno wn) date) unknown) (unknown) (no (unknown) (unknown) Vital Signs (units (un known) date) unknown) (unknown) (no (unknown) (unknown) WBC 9.0 (units (unkno wn) date) unknown) (unknown) (no (unknown) (unknown) WBC (units (unkno wn) date) unknown) (unknown) (no (unknown) (unknown) [Embedded Image (units (unknown) date) Not Available] unknown) (unknown) (no (unknown) (unknown) alcohol intake: (units (unknown) date) current unknown) (unknown) (no (unknown) (unknown) household members: (units (unknown) date) none and other unknown) (unknown) (no (unknown) (unknown) today; this time (units (unknown) date) is exclusive of unknown) procedural time. Result panel 280 (unknown) (no (unknown) (unknown) (no value) (units (unk nown) date) unknown) (unknown) (no (unknown) (unknown) (past 8 hours): (units (unknown) date) unknown) (unknown) (no (unknown) (unknown) 10/24/22 10/24/22 (units (unknown) date) 10/24/22 unknown) (unknown) (no (unknown) (unknown) 10/24/22 10/25/22 (units (unknown) date) 10/25/22 unknown) (unknown) (no (unknown) (unknown) 10/25/22 10/25/22 (units (unknown) date) 10/25/22 unknown) (unknown) (no (unknown) (unknown) 10/25/22 03:45 (units (unknown) date) unknown) (unknown) (no (unknown) (unknown) 10/25/22 (units (unkno wn) date) unknown) (unknown) (no (unknown) (unknown) 03:45 03:45 10:12 (units (unknown) date) unknown) (unknown) (no (unknown) (unknown) [id number] (units (unkno wn) date) unknown) (unknown) (no (unknown) (unknown) 10:12 (units (unkno wn) date) unknown) (unknown) (no (unknown) (unknown) 15:00 (units (unkno wn) date) unknown) (unknown) (no (unknown) (unknown) 16:40 16:40 18:20 (units (unknown) date) unknown) (unknown) (no (unknown) (unknown) 18:20 18:20 18:20 (units (unknown) date) unknown) (unknown) (no (unknown) (unknown) 22:40 03:45 03:45 (units (unknown) date) unknown) (unknown) (no (unknown) (unknown) Age/Sex: 86 / M (units (unknown) date) unknown) (unknown) (no (unknown) (unknown) Albumin 3.7 (units (un known) date) unknown) (unknown) (no (unknown) (unknown) Albumin (units (unkno wn) date) unknown) (unknown) (no (unknown) (unknown) Albumin/Globulin (units (unknown) date) Ratio 0.9 L unknown) (unknown) (no (unknown) (unknown) Albumin/Globulin (units (unknown) date) Ratio unknown) (unknown) (no (unknown) (unknown) Assessment + Plan (units (unknown) date) narrative: unknown) (unknown) (no (unknown) (unknown) Assessment + Plan (units (unknown) date) unknown) (unknown) (no (unknown) (unknown) Awake alert and (units (unknown) date) oriented x4. unknown) Strength and sensation intact to lower extremities (unknown) (no (unknown) (unknown) BPH (benign (units (un known) date) prostatic unknown) hyperplasia) (unknown) (no (unknown) (unknown) BUN 9 (units (unkno wn) date) unknown) (unknown) (no (unknown) (unknown) BUN (units (unkno wn) date) unknown) (unknown) (no (unknown) (unknown) BUN/Creatinine (units (unknown) date) Ratio 13.8 unknown) (unknown) (no (unknown) (unknown) BUN/Creatinine (units (unknown) date) Ratio unknown) (unknown) (no (unknown) (unknown) Baso # (Auto) 100 (units (unknown) date) unknown) (unknown) (no (unknown) (unknown) Baso # (Auto) (units ( unknown) date) unknown) (unknown) (no (unknown) (unknown) Baso % (Auto) 1.0 (units (unknown) date) unknown) (unknown) (no (unknown) (unknown) Baso % (Auto) (units ( unknown) date) unknown) (unknown) (no (unknown) (unknown) Blood Pressure (units (unknown) date) 111/64 unknown) (unknown) (no (unknown) (unknown) Calcium 8.3 L (units ( unknown) date) unknown) (unknown) (no (unknown) (unknown) Calcium (units (unkno wn) date) unknown) (unknown) (no (unknown) (unknown) Carbon Dioxide 21 (units (unknown) date) L unknown) (unknown) (no (unknown) (unknown) Carbon Dioxide (units (unknown) date) unknown) (unknown) (no (unknown) (unknown) Cardio (units (unkno wn) date) unknown) (unknown) (no (unknown) (unknown) Chloride 107 (units (u nknown) date) unknown) (unknown) (no (unknown) (unknown) Chloride (units (unkno wn) date) unknown) (unknown) (no (unknown) (unknown) Cholesterol 104 L (units (unknown) date) unknown) (unknown) (no (unknown) (unknown) Cholesterol (units (un known) date) unknown) (unknown) (no (unknown) (unknown) Chronic (units (unkno wn) date) anticoagulation unknown) (unknown) (no (unknown) (unknown) Creatinine 0.65 L (units (unknown) date) unknown) (unknown) (no (unknown) (unknown) Creatinine (units (unk nown) date) unknown) (unknown) (no (unknown) (unknown) Critical Care (units ( unknown) date) time: unknown) (unknown) (no (unknown) (unknown) : 1935 (units (unknown) date) Acct:[id number] unknown) (unknown) (no (unknown) (unknown) Date Patient Seen: (units (unknown) date) 10/25/22 unknown) (unknown) (no (unknown) (unknown) Date of Service: (units (unknown) date) 10/24/22 unknown) (unknown) (no (unknown) (unknown) Effort + (units (unkno wn) date) Inspection: normal unknown) respiratory effort (unknown) (no (unknown) (unknown) Eos # (Auto) 200 (units (unknown) date) unknown) (unknown) (no (unknown) (unknown) Eos # (Auto) (units (u nknown) date) unknown) (unknown) (no (unknown) (unknown) Eos % (Auto) 1.8 L (units (unknown) date) unknown) (unknown) (no (unknown) (unknown) Eos % (Auto) (units (u nknown) date) unknown) (unknown) (no (unknown) (unknown) Estimated GFR > 60 (units (unknown) date) unknown) (unknown) (no (unknown) (unknown) Estimated GFR (units ( unknown) date) unknown) (unknown) (no (unknown) (unknown) Ethyl Alcohol < 10 (units (unknown) date) unknown) (unknown) (no (unknown) (unknown) Ethyl Alcohol (units ( unknown) date) unknown) (unknown) (no (unknown) (unknown) Exam Narrative: (units (unknown) date) unknown) (unknown) (no (unknown) (unknown) Exam (units (unkno wn) date) unknown) (unknown) (no (unknown) (unknown) Extremities (units (un known) date) well-perfused unknown) (unknown) (no (unknown) (unknown) Family History (units (unknown) date) (Reviewed 10/25/22 unknown) @ 04:01 by Ana Maria Ortega [facility]) (unknown) (no (unknown) (unknown) Father No (units (unknown) date) problems noted. unknown) (unknown) (no (unknown) (unknown) Free T4 1.09 (units (u nknown) date) unknown) (unknown) (no (unknown) (unknown) Free T4 (units (unkno wn) date) unknown) (unknown) (no (unknown) (unknown) Globulin 4.2 H (units (unknown) date) unknown) (unknown) (no (unknown) (unknown) Globulin (units (unkno wn) date) unknown) (unknown) (no (unknown) (unknown) Glucose 127 H (units ( unknown) date) unknown) (unknown) (no (unknown) (unknown) Glucose (units (unkno wn) date) unknown) (unknown) (no (unknown) (unknown) HDL Cholesterol 34 (units (unknown) date) L unknown) (unknown) (no (unknown) (unknown) HDL Cholesterol (units (unknown) date) unknown) (unknown) (no (unknown) (unknown) Hct 39.2 L (units (unk nown) date) unknown) (unknown) (no (unknown) (unknown) Hct (units (unkno wn) date) unknown) (unknown) (no (unknown) (unknown) He has had ongoing (units (unknown) date) lower back pain unknown) prior to these falls that has exacerbated (unknown) (no (unknown) (unknown) Hemoglobin A1c 5.1 (units (unknown) date) unknown) (unknown) (no (unknown) (unknown) Hemoglobin A1c (units (unknown) date) unknown) (unknown) (no (unknown) (unknown) Hgb 13.6 (units (unkno wn) date) unknown) (unknown) (no (unknown) (unknown) Hgb (units (unkno wn) date) unknown) (unknown) (no (unknown) (unknown) 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 (unknown) (no (unknown) (unknown) I spent a total of (units (unknown) date) [] minutes of unknown) critical care time on this patient's care (unknown) (no (unknown) (unknown) INR 1.5 H (units (unkn own) date) unknown) (unknown) (no (unknown) (unknown) INR (units (unkno wn) date) unknown) (unknown) (no (unknown) (unknown) Interval history: (units (unknown) date) unknown) (unknown) (no (unknown) (unknown) [facility] (units (unknown) date) [address] unknown) [place] [address] (unknown) (no (unknown) (unknown) LDL Cholesterol, (units (unknown) date) Calc 55 unknown) (unknown) (no (unknown) (unknown) LDL Cholesterol, (units (unknown) date) Calc unknown) (unknown) (no (unknown) (unknown) Laboratory Results (units (unknown) date) - last 24 hr unknown) (unknown) (no (unknown) (unknown) Labs (units (unkno wn) date) unknown) (unknown) (no (unknown) (unknown) Labs: (units (unkno wn) date) unknown) (unknown) (no (unknown) (unknown) Lactate 0.9 (units (un known) date) unknown) (unknown) (no (unknown) (unknown) Lactate (units (unkno wn) date) unknown) (unknown) (no (unknown) (unknown) Lymph # (Auto) (units (unknown) date) 1600 unknown) (unknown) (no (unknown) (unknown) Lymph # (Auto) (units (unknown) date) unknown) (unknown) (no (unknown) (unknown) Lymph % (Auto) (units (unknown) date) 17.8 L unknown) (unknown) (no (unknown) (unknown) Lymph % (Auto) (units (unknown) date) unknown) (unknown) (no (unknown) (unknown) MCH 34.0 (units (unkno wn) date) unknown) (unknown) (no (unknown) (unknown) MCH (units (unkno wn) date) unknown) (unknown) (no (unknown) (unknown) MCHC 34.6 (units (unkn own) date) unknown) (unknown) (no (unknown) (unknown) MCHC (units (unkno wn) date) unknown) (unknown) (no (unknown) (unknown) MCV 98.1 (units (unkno wn) date) unknown) (unknown) (no (unknown) (unknown) MCV (units (unkno wn) date) unknown) (unknown) (no (unknown) (unknown) Magnesium 1.8 (units ( unknown) date) unknown) (unknown) (no (unknown) (unknown) Magnesium (units (unkn own) date) unknown) (unknown) (no (unknown) (unknown) Medical History (units (unknown) date) (Updated 10/25/22 @ unknown) 04:00 by Ana Maria Ortega [facility]) (unknown) (no (unknown) (unknown) Micro UA Comment (units (unknown) date) Microscopic normal unknown) (unknown) (no (unknown) (unknown) Micro UA Comment (units (unknown) date) unknown) (unknown) (no (unknown) (unknown) Brule # (Auto) 1100 (units (unknown) date) H unknown) (unknown) (no (unknown) (unknown) Brule # (Auto) (units ( unknown) date) unknown) (unknown) (no (unknown) (unknown) Brule % (Auto) 11.9 (units (unknown) date) unknown) (unknown) (no (unknown) (unknown) Brule % (Auto) (units ( unknown) date) unknown) (unknown) (no (unknown) (unknown) Mother (units (unknown) date) Cancer unknown) (unknown) (no (unknown) (unknown) NT-Pro-B Natriuret (units (unknown) date) Pep 3110 H unknown) (unknown) (no (unknown) (unknown) NT-Pro-B Natriuret (units (unknown) date) Pep unknown) (unknown) (no (unknown) (unknown) Narrative (units (unkn own) date) unknown) (unknown) (no (unknown) (unknown) Neut # (Auto) 6100 (units (unknown) date) unknown) (unknown) (no (unknown) (unknown) Neut # (Auto) (units ( unknown) date) unknown) (unknown) (no (unknown) (unknown) Neut % (Auto) 67.5 (units (unknown) date) unknown) (unknown) (no (unknown) (unknown) Neut % (Auto) (units ( unknown) date) unknown) (unknown) (no (unknown) (unknown) Objective (units (unkn own) date) unknown) (unknown) (no (unknown) (unknown) Osteoporosis (units (u nknown) date) unknown) (unknown) (no (unknown) (unknown) Other: (units (unkno wn) date) unknown) (unknown) (no (unknown) (unknown) Oxygen Delivery (units (unknown) date) Method Room Air unknown) (unknown) (no (unknown) (unknown) Oxygen Flow Rate 0 (units (unknown) date) unknown) (unknown) (no (unknown) (unknown) PFSH (units (unkno wn) date) unknown) (unknown) (no (unknown) (unknown) PT 17.7 H (units (unkn own) date) unknown) (unknown) (no (unknown) (unknown) PT (units (unkno wn) date) unknown) (unknown) (no (unknown) (unknown) Patient is an (units (u nknown) date) 86-year-old male unknown) with history of recent falls, 2 in September 2022. (unknown) (no (unknown) (unknown) Patient with (units (u nknown) date) repetitive falls, unknown) uses walker for assistance at home. He states (unknown) (no (unknown) (unknown) Patient: (units (unkno wn) date) FlorindaNicolas unknown) MR#: [id number] (unknown) (no (unknown) (unknown) Plt Count 191 (units ( unknown) date) unknown) (unknown) (no (unknown) (unknown) Plt Count (units (unkn own) date) unknown) (unknown) (no (unknown) (unknown) Potassium 3.3 L (units (unknown) date) unknown) (unknown) (no (unknown) (unknown) Potassium (units (unkn own) date) unknown) (unknown) (no (unknown) (unknown) Procalcitonin 0.05 (units (unknown) date) unknown) (unknown) (no (unknown) (unknown) Procalcitonin (units ( unknown) date) unknown) (unknown) (no (unknown) (unknown) Progress Note (units ( unknown) date) unknown) (unknown) (no (unknown) (unknown) Provider: Brooke (units (unknown) date) Yuni unknown) (unknown) (no (unknown) (unknown) Pulse Oximetry 95 (units (unknown) date) unknown) (unknown) (no (unknown) (unknown) Pulse Rate 61 (units ( unknown) date) unknown) (unknown) (no (unknown) (unknown) RBC 3.99 L (units (unk nown) date) unknown) (unknown) (no (unknown) (unknown) RBC (units (unkno wn) date) unknown) (unknown) (no (unknown) (unknown) RDW 14.4 (units (unkno wn) date) unknown) (unknown) (no (unknown) (unknown) RDW (units (unkno wn) date) unknown) (unknown) (no (unknown) (unknown) Resp (units (unkno wn) date) unknown) (unknown) (no (unknown) (unknown) Respiratory Rate (units (unknown) date) 17 unknown) (unknown) (no (unknown) (unknown) Result Diagrams: (units (unknown) date) unknown) (unknown) (no (unknown) (unknown) Signed By: (units (unk nown) date) unknown) (unknown) (no (unknown) (unknown) Smoking Status: (units (unknown) date) Never smoker unknown) (unknown) (no (unknown) (unknown) Social History (units (unknown) date) unknown) (unknown) (no (unknown) (unknown) Sodium 138 (units (unk nown) date) unknown) (unknown) (no (unknown) (unknown) Sodium (units (unkno wn) date) unknown) (unknown) (no (unknown) (unknown) Subjective (units (unk nown) date) unknown) (unknown) (no (unknown) (unknown) Surgical History (units (unknown) date) (Updated 10/25/22 @ unknown) 04:00 by ALESSIO Mercado) (unknown) (no (unknown) (unknown) TSH 8.95 H (units (unk nown) date) unknown) (unknown) (no (unknown) (unknown) TSH (units (unkno wn) date) unknown) (unknown) (no (unknown) (unknown) Temperature 97.0 F (units (unknown) date) L unknown) (unknown) (no (unknown) (unknown) Time Patient Seen: (units (unknown) date) 17:30 unknown) (unknown) (no (unknown) (unknown) Time Spent With (units (unknown) date) Patient unknown) (unknown) (no (unknown) (unknown) Triglycerides 75 (units (unknown) date) unknown) (unknown) (no (unknown) (unknown) Triglycerides (units ( unknown) date) unknown) (unknown) (no (unknown) (unknown) Troponin I 0.023 (units (unknown) date) 0.014 unknown) (unknown) (no (unknown) (unknown) Troponin I (units (unk nown) date) unknown) (unknown) (no (unknown) (unknown) U Benzodiazepines (units (unknown) date) Scrn Negative unknown) (unknown) (no (unknown) (unknown) U Benzodiazepines (units (unknown) date) Scrn unknown) (unknown) (no (unknown) (unknown) U Marijuana (THC) (units (unknown) date) Screen Negative unknown) (unknown) (no (unknown) (unknown) U Marijuana (THC) (units (unknown) date) Screen unknown) (unknown) (no (unknown) (unknown) U Methamphetamines (units (unknown) date) Scrn Negative unknown) (unknown) (no (unknown) (unknown) U Methamphetamines (units (unknown) date) Scrn unknown) (unknown) (no (unknown) (unknown) U Opiates 300ng/mL (units (unknown) date) cut Positive H unknown) (unknown) (no (unknown) (unknown) U Opiates 300ng/mL (units (unknown) date) cut unknown) (unknown) (no (unknown) (unknown) U Tricyclic (units (un known) date) Antidepress unknown) Negative (unknown) (no (unknown) (unknown) U Tricyclic (units (un known) date) Antidepress unknown) (unknown) (no (unknown) (unknown) Ur Amphetamines (units (unknown) date) Screen Negative unknown) (unknown) (no (unknown) (unknown) Ur Amphetamines (units (unknown) date) Screen unknown) (unknown) (no (unknown) (unknown) Ur Barbiturates (units (unknown) date) Screen Negative unknown) (unknown) (no (unknown) (unknown) Ur Barbiturates (units (unknown) date) Screen unknown) (unknown) (no (unknown) (unknown) Ur Culture (units (unk nown) date) Indicated? Cult not unknown) indicated (unknown) (no (unknown) (unknown) Ur Culture (units (unk nown) date) Indicated? unknown) (unknown) (no (unknown) (unknown) Ur Leukocyte (units (u nknown) date) Esterase Negative unknown) (unknown) (no (unknown) (unknown) Ur Leukocyte (units (u nknown) date) Esterase unknown) (unknown) (no (unknown) (unknown) Ur MDMA Scrn (units (u nknown) date) (Ecstasy) Negative unknown) (unknown) (no (unknown) (unknown) Ur MDMA Scrn (units (u nknown) date) (Ecstasy) unknown) (unknown) (no (unknown) (unknown) Ur Oxycodone (units (u nknown) date) Screen Positive H unknown) (unknown) (no (unknown) (unknown) Ur Oxycodone (units (u nknown) date) Screen unknown) (unknown) (no (unknown) (unknown) Ur Phencyclidine (units (unknown) date) Scrn Negative unknown) (unknown) (no (unknown) (unknown) Ur Phencyclidine (units (unknown) date) Scrn unknown) (unknown) (no (unknown) (unknown) Ur Specific (units (un known) date) Jerome 1.015 unknown) (unknown) (no (unknown) (unknown) Ur Specific (units (un known) date) Jerome unknown) (unknown) (no (unknown) (unknown) Urine Appearance (units (unknown) date) Clear unknown) (unknown) (no (unknown) (unknown) Urine Appearance (units (unknown) date) unknown) (unknown) (no (unknown) (unknown) Urine Bacteria (units (unknown) date) None seen unknown) (unknown) (no (unknown) (unknown) Urine Bacteria (units (unknown) date) unknown) (unknown) (no (unknown) (unknown) Urine Bilirubin (units (unknown) date) Negative unknown) (unknown) (no (unknown) (unknown) Urine Bilirubin (units (unknown) date) unknown) (unknown) (no (unknown) (unknown) Urine Cocaine (units ( unknown) date) Screen Negative unknown) (unknown) (no (unknown) (unknown) Urine Cocaine (units ( unknown) date) Screen unknown) (unknown) (no (unknown) (unknown) Urine Color Yellow (units (unknown) date) unknown) (unknown) (no (unknown) (unknown) Urine Color (units (un known) date) unknown) (unknown) (no (unknown) (unknown) Urine Glucose (UA) (units (unknown) date) Negative unknown) (unknown) (no (unknown) (unknown) Urine Glucose (UA) (units (unknown) date) unknown) (unknown) (no (unknown) (unknown) Urine Ketones (units ( unknown) date) Trace H unknown) (unknown) (no (unknown) (unknown) Urine Ketones (units ( unknown) date) unknown) (unknown) (no (unknown) (unknown) Urine Methadone (units (unknown) date) Screen Negative unknown) (unknown) (no (unknown) (unknown) Urine Methadone (units (unknown) date) Screen unknown) (unknown) (no (unknown) (unknown) Urine Nitrate (units ( unknown) date) Negative unknown) (unknown) (no (unknown) (unknown) Urine Nitrate (units ( unknown) date) unknown) (unknown) (no (unknown) (unknown) Urine Occult Blood (units (unknown) date) Trace-intact unknown) (unknown) (no (unknown) (unknown) Urine Occult Blood (units (unknown) date) unknown) (unknown) (no (unknown) (unknown) Urine Protein (units ( unknown) date) Negative unknown) (unknown) (no (unknown) (unknown) Urine Protein (units ( unknown) date) unknown) (unknown) (no (unknown) (unknown) Urine RBC None (units (unknown) date) seen unknown) (unknown) (no (unknown) (unknown) Urine RBC (units (unkn own) date) unknown) (unknown) (no (unknown) (unknown) Urine Urobilinogen (units (unknown) date) 0.2 unknown) (unknown) (no (unknown) (unknown) Urine Urobilinogen (units (unknown) date) unknown) (unknown) (no (unknown) (unknown) Urine WBC None (units (unknown) date) seen unknown) (unknown) (no (unknown) (unknown) Urine WBC (units (unkn own) date) unknown) (unknown) (no (unknown) (unknown) Urine pH 6.0 (units (u nknown) date) unknown) (unknown) (no (unknown) (unknown) Urine pH (units (unkno wn) date) unknown) (unknown) (no (unknown) (unknown) Vital Signs (units (un known) date) unknown) (unknown) (no (unknown) (unknown) WBC 9.0 (units (unkno wn) date) unknown) (unknown) (no (unknown) (unknown) WBC (units (unkno wn) date) unknown) (unknown) (no (unknown) (unknown) [Embedded Image (units (unknown) date) Not Available] unknown) (unknown) (no (unknown) (unknown) alcohol intake: (units (unknown) date) current unknown) (unknown) (no (unknown) (unknown) and imaging were (units (unknown) date) shared with Dr. Peterson unknown) (unknown) (no (unknown) (unknown) anesthesia, (units (un known) date) bowel/bladder unknown) incontinence, and lower extremity numbness/tingling. (unknown) (no (unknown) (unknown) bilaterally. Using (units (unknown) date) walker and gait unknown) belt for ambulation. (unknown) (no (unknown) (unknown) household members: (units (unknown) date) none and other unknown) (unknown) (no (unknown) (unknown) pain well (units (unkn own) date) controlled with unknown) medication. He denies unsteady gait, weakness, saddle (unknown) (no (unknown) (unknown) seen today for (units (unknown) date) orthopedic unknown) evaluation. He is sitting up in his chair with back (unknown) (no (unknown) (unknown) since injury. He (units (unknown) date) was diagnosed with unknown) new T11 compression fracture. Patient is (unknown) (no (unknown) (unknown) that when he is (units (unknown) date) fallen he has not unknown) been using his walker. Patient's situation (unknown) (no (unknown) (unknown) today; this time (units (unknown) date) is exclusive of unknown) procedural time. Result panel 281 (unknown) (no (unknown) (unknown) (no value) (units (unk nown) date) unknown) (unknown) (no (unknown) (unknown) (past 8 hours): (units (unknown) date) unknown) (unknown) (no (unknown) (unknown) 10/24/22 10/24/22 (units (unknown) date) 10/24/22 unknown) (unknown) (no (unknown) (unknown) 10/24/22 10/25/22 (units (unknown) date) 10/25/22 unknown) (unknown) (no (unknown) (unknown) 10/25/22 10/25/22 (units (unknown) date) 10/25/22 unknown) (unknown) (no (unknown) (unknown) 10/25/22 03:45 (units (unknown) date) unknown) (unknown) (no (unknown) (unknown) 10/25/222046 (units ( unknown) date) unknown) (unknown) (no (unknown) (unknown) 10/25/22 (units (unkno wn) date) unknown) (unknown) (no (unknown) (unknown) 03:45 03:45 10:12 (units (unknown) date) unknown) (unknown) (no (unknown) (unknown) [id number] (units (unkno wn) date) unknown) (unknown) (no (unknown) (unknown) 10:12 (units (unkno wn) date) unknown) (unknown) (no (unknown) (unknown) 15:00 (units (unkno wn) date) unknown) (unknown) (no (unknown) (unknown) 16:40 16:40 18:20 (units (unknown) date) unknown) (unknown) (no (unknown) (unknown) 18:20 18:20 18:20 (units (unknown) date) unknown) (unknown) (no (unknown) (unknown) 22:40 03:45 03:45 (units (unknown) date) unknown) (unknown) (no (unknown) (unknown) Age/Sex: 86 / M (units (unknown) date) unknown) (unknown) (no (unknown) (unknown) Albumin 3.7 (units (un known) date) unknown) (unknown) (no (unknown) (unknown) Albumin (units (unkno wn) date) unknown) (unknown) (no (unknown) (unknown) Albumin/Globulin (units (unknown) date) Ratio 0.9 L unknown) (unknown) (no (unknown) (unknown) Albumin/Globulin (units (unknown) date) Ratio unknown) (unknown) (no (unknown) (unknown) Assessment + Plan (units (unknown) date) narrative: unknown) (unknown) (no (unknown) (unknown) Assessment + Plan (units (unknown) date) unknown) (unknown) (no (unknown) (unknown) Awake alert and (units (unknown) date) oriented x4. unknown) Strength and sensation intact to lower extremities (unknown) (no (unknown) (unknown) BPH (benign (units (un known) date) prostatic unknown) hyperplasia) (unknown) (no (unknown) (unknown) BUN 9 (units (unkno wn) date) unknown) (unknown) (no (unknown) (unknown) BUN (units (unkno wn) date) unknown) (unknown) (no (unknown) (unknown) BUN/Creatinine (units (unknown) date) Ratio 13.8 unknown) (unknown) (no (unknown) (unknown) BUN/Creatinine (units (unknown) date) Ratio unknown) (unknown) (no (unknown) (unknown) Baso # (Auto) 100 (units (unknown) date) unknown) (unknown) (no (unknown) (unknown) Baso # (Auto) (units ( unknown) date) unknown) (unknown) (no (unknown) (unknown) Baso % (Auto) 1.0 (units (unknown) date) unknown) (unknown) (no (unknown) (unknown) Baso % (Auto) (units ( unknown) date) unknown) (unknown) (no (unknown) (unknown) Blood Pressure (units (unknown) date) 111/64 unknown) (unknown) (no (unknown) (unknown) Calcium 8.3 L (units ( unknown) date) unknown) (unknown) (no (unknown) (unknown) Calcium (units (unkno wn) date) unknown) (unknown) (no (unknown) (unknown) Carbon Dioxide 21 (units (unknown) date) L unknown) (unknown) (no (unknown) (unknown) Carbon Dioxide (units (unknown) date) unknown) (unknown) (no (unknown) (unknown) Cardio (units (unkno wn) date) unknown) (unknown) (no (unknown) (unknown) Chloride 107 (units (u nknown) date) unknown) (unknown) (no (unknown) (unknown) Chloride (units (unkno wn) date) unknown) (unknown) (no (unknown) (unknown) Cholesterol 104 L (units (unknown) date) unknown) (unknown) (no (unknown) (unknown) Cholesterol (units (un known) date) unknown) (unknown) (no (unknown) (unknown) Chronic (units (unkno wn) date) anticoagulation unknown) (unknown) (no (unknown) (unknown) Creatinine 0.65 L (units (unknown) date) unknown) (unknown) (no (unknown) (unknown) Creatinine (units (unk nown) date) unknown) (unknown) (no (unknown) (unknown) Critical Care (units ( unknown) date) time: unknown) (unknown) (no (unknown) (unknown) : 1935 (units (unknown) date) Acct:[id number] unknown) (unknown) (no (unknown) (unknown) Date Patient Seen: (units (unknown) date) 10/25/22 unknown) (unknown) (no (unknown) (unknown) Date of Service: (units (unknown) date) 10/24/22 unknown) (unknown) (no (unknown) (unknown) Effort + (units (unkno wn) date) Inspection: normal unknown) respiratory effort (unknown) (no (unknown) (unknown) Eos # (Auto) 200 (units (unknown) date) unknown) (unknown) (no (unknown) (unknown) Eos # (Auto) (units (u nknown) date) unknown) (unknown) (no (unknown) (unknown) Eos % (Auto) 1.8 L (units (unknown) date) unknown) (unknown) (no (unknown) (unknown) Eos % (Auto) (units (u nknown) date) unknown) (unknown) (no (unknown) (unknown) Estimated GFR > 60 (units (unknown) date) unknown) (unknown) (no (unknown) (unknown) Estimated GFR (units ( unknown) date) unknown) (unknown) (no (unknown) (unknown) Ethyl Alcohol < 10 (units (unknown) date) unknown) (unknown) (no (unknown) (unknown) Ethyl Alcohol (units ( unknown) date) unknown) (unknown) (no (unknown) (unknown) Exam Narrative: (units (unknown) date) unknown) (unknown) (no (unknown) (unknown) Exam (units (unkno wn) date) unknown) (unknown) (no (unknown) (unknown) Extremities (units (un known) date) well-perfused unknown) (unknown) (no (unknown) (unknown) Family History (units (unknown) date) (Reviewed 10/25/22 unknown) @ 04:01 by Ana Maria Ortega [facility]) (unknown) (no (unknown) (unknown) Father No (units (unknown) date) problems noted. unknown) (unknown) (no (unknown) (unknown) Free T4 1.09 (units (u nknown) date) unknown) (unknown) (no (unknown) (unknown) Free T4 (units (unkno wn) date) unknown) (unknown) (no (unknown) (unknown) Globulin 4.2 H (units (unknown) date) unknown) (unknown) (no (unknown) (unknown) Globulin (units (unkno wn) date) unknown) (unknown) (no (unknown) (unknown) Glucose 127 H (units ( unknown) date) unknown) (unknown) (no (unknown) (unknown) Glucose (units (unkno wn) date) unknown) (unknown) (no (unknown) (unknown) HDL Cholesterol 34 (units (unknown) date) L unknown) (unknown) (no (unknown) (unknown) HDL Cholesterol (units (unknown) date) unknown) (unknown) (no (unknown) (unknown) Hct 39.2 L (units (unk nown) date) unknown) (unknown) (no (unknown) (unknown) Hct (units (unkno wn) date) unknown) (unknown) (no (unknown) (unknown) He has had ongoing (units (unknown) date) lower back pain unknown) prior to these falls that has exacerbated (unknown) (no (unknown) (unknown) Hemoglobin A1c 5.1 (units (unknown) date) unknown) (unknown) (no (unknown) (unknown) Hemoglobin A1c (units (unknown) date) unknown) (unknown) (no (unknown) (unknown) Hgb 13.6 (units (unkno wn) date) unknown) (unknown) (no (unknown) (unknown) Hgb (units (unkno wn) date) unknown) (unknown) (no (unknown) (unknown) 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 (unknown) (no (unknown) (unknown) I spent a total of (units (unknown) date) [] minutes of unknown) critical care time on this patient's care (unknown) (no (unknown) (unknown) INR 1.5 H (units (unkn own) date) unknown) (unknown) (no (unknown) (unknown) INR (units (unkno wn) date) unknown) (unknown) (no (unknown) (unknown) Interval history: (units (unknown) date) unknown) (unknown) (no (unknown) (unknown) [facility] (units (unknown) date) [address] [place] [address] unknown) [place] [address] (unknown) (no (unknown) (unknown) LDL Cholesterol, (units (unknown) date) Calc 55 unknown) (unknown) (no (unknown) (unknown) LDL Cholesterol, (units (unknown) date) Calc unknown) (unknown) (no (unknown) (unknown) Laboratory Results (units (unknown) date) - last 24 hr unknown) (unknown) (no (unknown) (unknown) Labs (units (unkno wn) date) unknown) (unknown) (no (unknown) (unknown) Labs: (units (unkno wn) date) unknown) (unknown) (no (unknown) (unknown) Lactate 0.9 (units (un known) date) unknown) (unknown) (no (unknown) (unknown) Lactate (units (unkno wn) date) unknown) (unknown) (no (unknown) (unknown) Lymph # (Auto) (units (unknown) date) 1600 unknown) (unknown) (no (unknown) (unknown) Lymph # (Auto) (units (unknown) date) unknown) (unknown) (no (unknown) (unknown) Lymph % (Auto) (units (unknown) date) 17.8 L unknown) (unknown) (no (unknown) (unknown) Lymph % (Auto) (units (unknown) date) unknown) (unknown) (no (unknown) (unknown) MCH 34.0 (units (unkno wn) date) unknown) (unknown) (no (unknown) (unknown) MCH (units (unkno wn) date) unknown) (unknown) (no (unknown) (unknown) MCHC 34.6 (units (unkn own) date) unknown) (unknown) (no (unknown) (unknown) MCHC (units (unkno wn) date) unknown) (unknown) (no (unknown) (unknown) MCV 98.1 (units (unkno wn) date) unknown) (unknown) (no (unknown) (unknown) MCV (units (unkno wn) date) unknown) (unknown) (no (unknown) (unknown) Magnesium 1.8 (units ( unknown) date) unknown) (unknown) (no (unknown) (unknown) Magnesium (units (unkn own) date) unknown) (unknown) (no (unknown) (unknown) Medical History (units (unknown) date) (Updated 10/25/22 @ unknown) 04:00 by Ana Maria Ortega [facility]) (unknown) (no (unknown) (unknown) Micro UA Comment (units (unknown) date) Microscopic normal unknown) (unknown) (no (unknown) (unknown) Micro UA Comment (units (unknown) date) unknown) (unknown) (no (unknown) (unknown) Brule # (Auto) 1100 (units (unknown) date) H unknown) (unknown) (no (unknown) (unknown) Brule # (Auto) (units ( unknown) date) unknown) (unknown) (no (unknown) (unknown) Brule % (Auto) 11.9 (units (unknown) date) unknown) (unknown) (no (unknown) (unknown) Brule % (Auto) (units ( unknown) date) unknown) (unknown) (no (unknown) (unknown) Mother (units (unknown) date) Cancer unknown) (unknown) (no (unknown) (unknown) NT-Pro-B Natriuret (units (unknown) date) Pep 3110 H unknown) (unknown) (no (unknown) (unknown) NT-Pro-B Natriuret (units (unknown) date) Pep unknown) (unknown) (no (unknown) (unknown) Narrative (units (unkn own) date) unknown) (unknown) (no (unknown) (unknown) Neut # (Auto) 6100 (units (unknown) date) unknown) (unknown) (no (unknown) (unknown) Neut # (Auto) (units ( unknown) date) unknown) (unknown) (no (unknown) (unknown) Neut % (Auto) 67.5 (units (unknown) date) unknown) (unknown) (no (unknown) (unknown) Neut % (Auto) (units ( unknown) date) unknown) (unknown) (no (unknown) (unknown) Objective (units (unkn own) date) unknown) (unknown) (no (unknown) (unknown) Osteoporosis (units (u nknown) date) unknown) (unknown) (no (unknown) (unknown) Other: (units (unkno wn) date) unknown) (unknown) (no (unknown) (unknown) Oxygen Delivery (units (unknown) date) Method Room Air unknown) (unknown) (no (unknown) (unknown) Oxygen Flow Rate 0 (units (unknown) date) unknown) (unknown) (no (unknown) (unknown) PFSH (units (unkno wn) date) unknown) (unknown) (no (unknown) (unknown) PT 17.7 H (units (unkn own) date) unknown) (unknown) (no (unknown) (unknown) PT (units (unkno wn) date) unknown) (unknown) (no (unknown) (unknown) Patient is an (units (u nknown) date) 86-year-old male unknown) with history of recent falls, 2 in September 2022. (unknown) (no (unknown) (unknown) Patient with (units (u nknown) date) repetitive falls, unknown) uses walker for assistance at home. He states (unknown) (no (unknown) (unknown) Patient's history (units (unknown) date) and imaging were unknown) shared with orthopedic spine surgeon, Dr. Peterson (unknown) (no (unknown) (unknown) Patient: (units (unkno wn) date) NeelyNicolas oconnell unknown) MR#: [id number] (unknown) (no (unknown) (unknown) Plt Count 191 (units ( unknown) date) unknown) (unknown) (no (unknown) (unknown) Plt Count (units (unkn own) date) unknown) (unknown) (no (unknown) (unknown) Potassium 3.3 L (units (unknown) date) unknown) (unknown) (no (unknown) (unknown) Potassium (units (unkn own) date) unknown) (unknown) (no (unknown) (unknown) Procalcitonin 0.05 (units (unknown) date) unknown) (unknown) (no (unknown) (unknown) Procalcitonin (units ( unknown) date) unknown) (unknown) (no (unknown) (unknown) Progress Note (units ( unknown) date) unknown) (unknown) (no (unknown) (unknown) Provider: Brooke (units (unknown) date) [place]uni unknown) (unknown) (no (unknown) (unknown) Pulse Oximetry 95 (units (unknown) date) unknown) (unknown) (no (unknown) (unknown) Pulse Rate 61 (units ( unknown) date) unknown) (unknown) (no (unknown) (unknown) RBC 3.99 L (units (unk nown) date) unknown) (unknown) (no (unknown) (unknown) RBC (units (unkno wn) date) unknown) (unknown) (no (unknown) (unknown) RDW 14.4 (units (unkno wn) date) unknown) (unknown) (no (unknown) (unknown) RDW (units (unkno wn) date) unknown) (unknown) (no (unknown) (unknown) Resp (units (unkno wn) date) unknown) (unknown) (no (unknown) (unknown) Respiratory Rate (units (unknown) date) 17 unknown) (unknown) (no (unknown) (unknown) Result Diagrams: (units (unknown) date) unknown) (unknown) (no (unknown) (unknown) Signed (units (unkno wn) date) By:<Electronically unknown) signed by Brooke Morrissey> (unknown) (no (unknown) (unknown) Smoking Status: (units (unknown) date) Never smoker unknown) (unknown) (no (unknown) (unknown) Social History (units (unknown) date) unknown) (unknown) (no (unknown) (unknown) Sodium 138 (units (unk nown) date) unknown) (unknown) (no (unknown) (unknown) Sodium (units (unkno wn) date) unknown) (unknown) (no (unknown) (unknown) Subjective (units (unk nown) date) unknown) (unknown) (no (unknown) (unknown) Surgical History (units (unknown) date) (Updated 10/25/22 @ unknown) 04:00 by ALESSIO Mercado) (unknown) (no (unknown) (unknown) TLSO brace for the (units (unknown) date) next 10-12 weeks unknown) and follow up at our office in 2 weeks with (unknown) (no (unknown) (unknown) TSH 8.95 H (units (unk nown) date) unknown) (unknown) (no (unknown) (unknown) TSH (units (unkno wn) date) unknown) (unknown) (no (unknown) (unknown) Temperature 97.0 F (units (unknown) date) L unknown) (unknown) (no (unknown) (unknown) Time Patient Seen: (units (unknown) date) 17:30 unknown) (unknown) (no (unknown) (unknown) Time Spent With (units (unknown) date) Patient unknown) (unknown) (no (unknown) (unknown) Triglycerides 75 (units (unknown) date) unknown) (unknown) (no (unknown) (unknown) Triglycerides (units ( unknown) date) unknown) (unknown) (no (unknown) (unknown) Troponin I 0.023 (units (unknown) date) 0.014 unknown) (unknown) (no (unknown) (unknown) Troponin I (units (unk nown) date) unknown) (unknown) (no (unknown) (unknown) U Benzodiazepines (units (unknown) date) Scrn Negative unknown) (unknown) (no (unknown) (unknown) U Benzodiazepines (units (unknown) date) Scrn unknown) (unknown) (no (unknown) (unknown) U Marijuana (THC) (units (unknown) date) Screen Negative unknown) (unknown) (no (unknown) (unknown) U Marijuana (THC) (units (unknown) date) Screen unknown) (unknown) (no (unknown) (unknown) U Methamphetamines (units (unknown) date) Scrn Negative unknown) (unknown) (no (unknown) (unknown) U Methamphetamines (units (unknown) date) Scrn unknown) (unknown) (no (unknown) (unknown) U Opiates 300ng/mL (units (unknown) date) cut Positive H unknown) (unknown) (no (unknown) (unknown) U Opiates 300ng/mL (units (unknown) date) cut unknown) (unknown) (no (unknown) (unknown) U Tricyclic (units (un known) date) Antidepress unknown) Negative (unknown) (no (unknown) (unknown) U Tricyclic (units (un known) date) Antidepress unknown) (unknown) (no (unknown) (unknown) Ur Amphetamines (units (unknown) date) Screen Negative unknown) (unknown) (no (unknown) (unknown) Ur Amphetamines (units (unknown) date) Screen unknown) (unknown) (no (unknown) (unknown) Ur Barbiturates (units (unknown) date) Screen Negative unknown) (unknown) (no (unknown) (unknown) Ur Barbiturates (units (unknown) date) Screen unknown) (unknown) (no (unknown) (unknown) Ur Culture (units (unk nown) date) Indicated? Cult not unknown) indicated (unknown) (no (unknown) (unknown) Ur Culture (units (unk nown) date) Indicated? unknown) (unknown) (no (unknown) (unknown) Ur Leukocyte (units (u nknown) date) Esterase Negative unknown) (unknown) (no (unknown) (unknown) Ur Leukocyte (units (u nknown) date) Esterase unknown) (unknown) (no (unknown) (unknown) Ur MDMA Scrn (units (u nknown) date) (Ecstasy) Negative unknown) (unknown) (no (unknown) (unknown) Ur MDMA Scrn (units (u nknown) date) (Ecstasy) unknown) (unknown) (no (unknown) (unknown) Ur Oxycodone (units (u nknown) date) Screen Positive H unknown) (unknown) (no (unknown) (unknown) Ur Oxycodone (units (u nknown) date) Screen unknown) (unknown) (no (unknown) (unknown) Ur Phencyclidine (units (unknown) date) Scrn Negative unknown) (unknown) (no (unknown) (unknown) Ur Phencyclidine (units (unknown) date) Scrn unknown) (unknown) (no (unknown) (unknown) Ur Specific (units (un known) date) Jerome 1.015 unknown) (unknown) (no (unknown) (unknown) Ur Specific (units (un known) date) Jerome unknown) (unknown) (no (unknown) (unknown) Urine Appearance (units (unknown) date) Clear unknown) (unknown) (no (unknown) (unknown) Urine Appearance (units (unknown) date) unknown) (unknown) (no (unknown) (unknown) Urine Bacteria (units (unknown) date) None seen unknown) (unknown) (no (unknown) (unknown) Urine Bacteria (units (unknown) date) unknown) (unknown) (no (unknown) (unknown) Urine Bilirubin (units (unknown) date) Negative unknown) (unknown) (no (unknown) (unknown) Urine Bilirubin (units (unknown) date) unknown) (unknown) (no (unknown) (unknown) Urine Cocaine (units ( unknown) date) Screen Negative unknown) (unknown) (no (unknown) (unknown) Urine Cocaine (units ( unknown) date) Screen unknown) (unknown) (no (unknown) (unknown) Urine Color Yellow (units (unknown) date) unknown) (unknown) (no (unknown) (unknown) Urine Color (units (un known) date) unknown) (unknown) (no (unknown) (unknown) Urine Glucose (UA) (units (unknown) date) Negative unknown) (unknown) (no (unknown) (unknown) Urine Glucose (UA) (units (unknown) date) unknown) (unknown) (no (unknown) (unknown) Urine Ketones (units ( unknown) date) Trace H unknown) (unknown) (no (unknown) (unknown) Urine Ketones (units ( unknown) date) unknown) (unknown) (no (unknown) (unknown) Urine Methadone (units (unknown) date) Screen Negative unknown) (unknown) (no (unknown) (unknown) Urine Methadone (units (unknown) date) Screen unknown) (unknown) (no (unknown) (unknown) Urine Nitrate (units ( unknown) date) Negative unknown) (unknown) (no (unknown) (unknown) Urine Nitrate (units ( unknown) date) unknown) (unknown) (no (unknown) (unknown) Urine Occult Blood (units (unknown) date) Trace-intact unknown) (unknown) (no (unknown) (unknown) Urine Occult Blood (units (unknown) date) unknown) (unknown) (no (unknown) (unknown) Urine Protein (units ( unknown) date) Negative unknown) (unknown) (no (unknown) (unknown) Urine Protein (units ( unknown) date) unknown) (unknown) (no (unknown) (unknown) Urine RBC None (units (unknown) date) seen unknown) (unknown) (no (unknown) (unknown) Urine RBC (units (unkn own) date) unknown) (unknown) (no (unknown) (unknown) Urine Urobilinogen (units (unknown) date) 0.2 unknown) (unknown) (no (unknown) (unknown) Urine Urobilinogen (units (unknown) date) unknown) (unknown) (no (unknown) (unknown) Urine WBC None (units (unknown) date) seen unknown) (unknown) (no (unknown) (unknown) Urine WBC (units (unkn own) date) unknown) (unknown) (no (unknown) (unknown) Urine pH 6.0 (units (u nknown) date) unknown) (unknown) (no (unknown) (unknown) Urine pH (units (unkno wn) date) unknown) (unknown) (no (unknown) (unknown) Vital Signs (units (un known) date) unknown) (unknown) (no (unknown) (unknown) WBC 9.0 (units (unkno wn) date) unknown) (unknown) (no (unknown) (unknown) WBC (units (unkno wn) date) unknown) (unknown) (no (unknown) (unknown) [Embedded Image (units (unknown) date) Not Available] unknown) (unknown) (no (unknown) (unknown) alcohol intake: (units (unknown) date) current unknown) (unknown) (no (unknown) (unknown) anesthesia, (units (un known) date) bowel/bladder unknown) incontinence, and lower extremity numbness/tingling. (unknown) (no (unknown) (unknown) bilaterally. Using (units (unknown) date) walker and gait unknown) belt for ambulation. (unknown) (no (unknown) (unknown) household members: (units (unknown) date) none and other unknown) (unknown) (no (unknown) (unknown) pain well (units (unkn own) date) controlled with unknown) medication. He denies unsteady gait, weakness, saddle (unknown) (no (unknown) (unknown) seen today for (units (unknown) date) orthopedic unknown) evaluation. He is sitting up in his chair with back (unknown) (no (unknown) (unknown) significant (units (un known) date) weakness, numbness, unknown) tingling, or other neurologic symptoms. (unknown) (no (unknown) (unknown) since injury. He (units (unknown) date) was diagnosed with unknown) new T11 compression fracture. Patient is (unknown) (no (unknown) (unknown) that when he is (units (unknown) date) fallen he has not unknown) been using his walker. Patient does not have (unknown) (no (unknown) (unknown) today; this time (units (unknown) date) is exclusive of unknown) procedural time. (unknown) (no (unknown) (unknown) which he used for (units (unknown) date) prior compression unknown) fractures. He was encouraged to wear the (unknown) (no (unknown) (unknown) who recommended a (units (unknown) date) TLSO brace. Patient unknown) states he already has a TLSO brace home, (unknown) (no (unknown) (unknown) x-rays. (units (unkno wn) date) unknown) Result panel 282 (unknown) (no date) (unknown) (unknown) > 60 ml/min (unkn own) (unknown) (no date) (unknown) (unknown) > 60 ml/min (unkn own) (unknown) (no date) (unknown) (unknown) 0.61 mg/dl (unkn own) (unknown) (no date) (unknown) (unknown) 1.9 mg/dl (unkn own) (unknown) (no date) (unknown) (unknown) 106 mmol/l (unkn own) (unknown) (no date) (unknown) (unknown) 11.5 (units unknown) (unknown) (unknown) (no date) (unknown) (unknown) 138 mmol/l (unkn own) (unknown) (no date) (unknown) (unknown) 24 mmol/l (unkn own) (unknown) (no date) (unknown) (unknown) 3.4 mmol/l (unkn own) (unknown) (no date) (unknown) (unknown) 7 mg/dl (unkn own) (unknown) (no date) (unknown) (unknown) 77 mg/dl (unkn own) (unknown) (no date) (unknown) (unknown) 77 mg/dl (unkn own) (unknown) (no date) (unknown) (unknown) 8.6 mg/dl (unkn own) Result panel 283 (unknown) (no (unknown) (unknown) (no value) (units (unk nown) date) unknown) (unknown) (no (unknown) (unknown) (past 8 hours): (units (unknown) date) unknown) (unknown) (no (unknown) (unknown) 0.4 mg PO BEDTIME (units (unknown) date) unknown) (unknown) (no (unknown) (unknown) 10/24/22 21:15 (units (unknown) date) unknown) (unknown) (no (unknown) (unknown) 10/24/22 21:50 (units (unknown) date) unknown) (unknown) (no (unknown) (unknown) 10/24/22 21:59 (units (unknown) date) unknown) (unknown) (no (unknown) (unknown) 10/24/22 22:00 (units (unknown) date) unknown) (unknown) (no (unknown) (unknown) 10/24/22 23:08 (units (unknown) date) unknown) (unknown) (no (unknown) (unknown) 10/25/22 03:45 (units (unknown) date) unknown) (unknown) (no (unknown) (unknown) 10/26/22 05:53 (units (unknown) date) unknown) (unknown) (no (unknown) (unknown) 10/26/22 (units (unkno wn) date) unknown) (unknown) (no (unknown) (unknown) [id number] (units (unkno wn) date) unknown) (unknown) (no (unknown) (unknown) 05:53 (units (unkno wn) date) unknown) (unknown) (no (unknown) (unknown) 1 applic TOPICAL (units (unknown) date) DAILY PRN (Reason: unknown) Dry Skin) (unknown) (no (unknown) (unknown) 1 drp OPHTHALMIC (units (unknown) date) (EYE) DAILY unknown) (unknown) (no (unknown) (unknown) 1 tab PO DAILY (units (unknown) date) unknown) (unknown) (no (unknown) (unknown) 11:59 (units (unkno wn) date) unknown) (unknown) (no (unknown) (unknown) 150 mg PO BID (units ( unknown) date) unknown) (unknown) (no (unknown) (unknown) 20 mg PO DAILY (units (unknown) date) unknown) (unknown) (no (unknown) (unknown) 20 mg PO QPM (units (u nknown) date) unknown) (unknown) (no (unknown) (unknown) 240 mg PO DAILY (units (unknown) date) unknown) (unknown) (no (unknown) (unknown) 300 mg PO TID 30 (units (unknown) date) Days Qty: 90 0RF unknown) (unknown) (no (unknown) (unknown) 5 - 10 mg PO Q6H (units (unknown) date) PRN (Reason: Pain, unknown) Severe (7-10)) 7 Days Qty: 40 0RF (unknown) (no (unknown) (unknown) 5 mg PO DAILY (units ( unknown) date) unknown) (unknown) (no (unknown) (unknown) ADLs.? He denies (units (unknown) date) any numbness, unknown) tingling, bowel or bladder incontinence, chest (unknown) (no (unknown) (unknown) Activity: As (units (u nknown) date) tolerated unknown) (unknown) (no (unknown) (unknown) Age/Sex: 86 / M (units (unknown) date) unknown) (unknown) (no (unknown) (unknown) Attending (units (unkn own) date) Provider: unknown) Ana Maria Ortega (unknown) (no (unknown) (unknown) BPH (benign (units (un known) date) prostatic unknown) hyperplasia) (unknown) (no (unknown) (unknown) BUN 7 L (units (unkno wn) date) unknown) (unknown) (no (unknown) (unknown) BUN/Creatinine (units (unknown) date) Ratio 11.5 unknown) (unknown) (no (unknown) (unknown) Blood Pressure (units (unknown) date) 110/64 unknown) (unknown) (no (unknown) (unknown) Calcium 8.6 (units (un known) date) unknown) (unknown) (no (unknown) (unknown) Carbon Dioxide 24 (units (unknown) date) unknown) (unknown) (no (unknown) (unknown) Chest x-ray (units (un known) date) radiology noted unknown) was a poor exam, document abnormal cardiopulmonary (unknown) (no (unknown) (unknown) Chief complaint: (units (unknown) date) Back pain unknown) (unknown) (no (unknown) (unknown) Chloride 106 (units (u nknown) date) unknown) (unknown) (no (unknown) (unknown) Chronic (units (unkno wn) date) anticoagulation unknown) (unknown) (no (unknown) (unknown) Comment: Multiple (units (unknown) date) falls, comp FX unknown) lumbar, gait instability (unknown) (no (unknown) (unknown) Comment: (units (unkno wn) date) unknown) (unknown) (no (unknown) (unknown) Consult to (units (unk nown) date) Dietitian, Adult unknown) Routine (unknown) (no (unknown) (unknown) Consult to (units (unk nown) date) Occupational unknown) Therapy Evaluate + Treat (unknown) (no (unknown) (unknown) Consult to (units (unk nown) date) Physical Therapy unknown) Evaluate + Treat (unknown) (no (unknown) (unknown) Consult to (units (unk nown) date) Physician Routine unknown) (unknown) (no (unknown) (unknown) Consulting (units (unk nown) date) Provider: unknown) Génesis Cortes (unknown) (no (unknown) (unknown) Consults: (units (unkn own) date) unknown) (unknown) (no (unknown) (unknown) Continued (units (unkn own) date) unknown) (unknown) (no (unknown) (unknown) Creatinine 0.61 L (units (unknown) date) unknown) (unknown) (no (unknown) (unknown) : 1935 (units (unknown) date) Acct:[id number] unknown) (unknown) (no (unknown) (unknown) Date Patient (units (u nknown) date) Seen: 10/26/22 unknown) (unknown) (no (unknown) (unknown) Date of Service: (units (unknown) date) 10/24/22 unknown) (unknown) (no (unknown) (unknown) Date of (units (unkno wn) date) admission: unknown) (unknown) (no (unknown) (unknown) Diet/Activity/Chin (units (unknown) date) atments unknown) (unknown) (no (unknown) (unknown) Diet: Diet as (units ( unknown) date) Tolerated unknown) (unknown) (no (unknown) (unknown) Discharge Data (units (unknown) date) unknown) (unknown) (no (unknown) (unknown) Discharge Date: (units (unknown) date) 10/26/22 unknown) (unknown) (no (unknown) (unknown) Discharge Plan (units (unknown) date) unknown) (unknown) (no (unknown) (unknown) Discharge (units (unkn own) date) Providers unknown) (unknown) (no (unknown) (unknown) Discharge Summary (units (unknown) date) unknown) (unknown) (no (unknown) (unknown) Discharge orders (units (unknown) date) + Medications unknown) (unknown) (no (unknown) (unknown) Discharge (units (unkn own) date) provider: unknown) (unknown) (no (unknown) (unknown) ED noted a (units (unk nown) date) possible unknown) developing ileus, but no documented findings on imaging at (unknown) (no (unknown) (unknown) Estimated GFR > (units (unknown) date) 60 unknown) (unknown) (no (unknown) (unknown) Exam (units (unkno wn) date) unknown) (unknown) (no (unknown) (unknown) Family History (units (unknown) date) (Reviewed 10/25/22 unknown) @ 04:01 by ALESSIO Mercado) (unknown) (no (unknown) (unknown) Father (units (unknown) date) No problems noted. 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 (unknown) (no (unknown) (unknown) Instructions: Low (units (unknown) date) Back Pain, DI for unknown) Prescription Opioid Use (unknown) (no (unknown) (unknown) [facility] (units (unknown) date) [address] [place] [address] Street unknown) [place] [address] (unknown) (no (unknown) (unknown) Nicolas Torrez (units (unknown) date) 86-year-old male unknown) slightly poor historian with history of AFib on (unknown) (no (unknown) (unknown) Laboratory (units (unk nown) date) Results - last 24 unknown) hr (unknown) (no (unknown) (unknown) Labs (units (unkno wn) date) unknown) (unknown) (no (unknown) (unknown) Labs: (units (unkno wn) date) unknown) (unknown) (no (unknown) (unknown) Lumigan 0.01 % (units (unknown) date) Drops unknown) (unknown) (no (unknown) (unknown) Magnesium 1.9 (units ( unknown) date) unknown) (unknown) (no (unknown) (unknown) Medical History (units (unknown) date) (Updated 10/25/22 unknown) @ 04:00 by ALESSIO Mercado) (unknown) (no (unknown) (unknown) Mother (units (unknown) date) Cancer unknown) (unknown) (no (unknown) (unknown) Multiple lumbar (units (unknown) date) compression unknown) fractures L1-L4, hepatic steatosis, noted gallstones (unknown) (no (unknown) (unknown) Narrative: (units (unk nown) date) unknown) (unknown) (no (unknown) (unknown) New (units (unkno wn) date) unknown) (unknown) (no (unknown) (unknown) Objective (units (unkn own) date) unknown) (unknown) (no (unknown) (unknown) On admit patient (units (unknown) date) is stable temp unknown) 98.2?, BP 140/80, HR 90 sinus rhythm, RR 15, O2 (unknown) (no (unknown) (unknown) Osteoporosis (units (u nknown) date) unknown) (unknown) (no (unknown) (unknown) Oxygen Delivery (units (unknown) date) Method Room Air unknown) (unknown) (no (unknown) (unknown) Oxygen Flow Rate (units (unknown) date) 0 unknown) (unknown) (no (unknown) (unknown) PFSH (units (unkno wn) date) unknown) (unknown) (no (unknown) (unknown) Patient (units (unkno wn) date) Disposition: Home unknown) (unknown) (no (unknown) (unknown) Patient: (units (unkno wn) date) Nicolas Neely unknown) MR#: [id number] (unknown) (no (unknown) (unknown) Per admitting (units ( unknown) date) provider, unknown) (unknown) (no (unknown) (unknown) Physician (units (unkn own) date) Instructions: unknown) Evaluate and Treat (unknown) (no (unknown) (unknown) Physician (units (unkn own) date) Instructions: unknown) Evaluate and treat (unknown) (no (unknown) (unknown) Potassium 3.4 (units ( unknown) date) unknown) (unknown) (no (unknown) (unknown) Prescriptions: (units (unknown) date) unknown) (unknown) (no (unknown) (unknown) Provider (units (unkno wn) date) Discharge Comment: unknown) You were admitted to the hospital with low back (unknown) (no (unknown) (unknown) Provider (units (unkno wn) date) unknown) (unknown) (no (unknown) (unknown) Provider: (units (unkn own) date) Franck Winston unknown) D.O. (unknown) (no (unknown) (unknown) Pulse Oximetry 96 (units (unknown) date) unknown) (unknown) (no (unknown) (unknown) Pulse Rate 78 (units ( unknown) date) unknown) (unknown) (no (unknown) (unknown) Reason For Exam: (units (unknown) date) MNA score = 11 unknown) (unknown) (no (unknown) (unknown) Reason For Exam: (units (unknown) date) bmi 22.8 unknown) (unknown) (no (unknown) (unknown) Reason for (units (unk nown) date) consultation: unknown) Multiple compression fractures (unknown) (no (unknown) (unknown) Respiratory Rate (units (unknown) date) 17 unknown) (unknown) (no (unknown) (unknown) Result Diagrams: (units (unknown) date) unknown) (unknown) (no (unknown) (unknown) Franck Winston, (units (unknown) date) DO unknown) (unknown) (no (unknown) (unknown) Rx Instructions: (units (unknown) date) unknown) (unknown) (no (unknown) (unknown) Signed By: (units (unk nown) date) unknown) (unknown) (no (unknown) (unknown) Smoking Status: (units (unknown) date) Never smoker unknown) (unknown) (no (unknown) (unknown) Social History (units (unknown) date) unknown) (unknown) (no (unknown) (unknown) Sodium 138 (units (unk nown) date) unknown) (unknown) (no (unknown) (unknown) Stand Alone (units (un known) date) Forms: Patient unknown) Portal/API, Stroke Signs + Symptoms (unknown) (no (unknown) (unknown) Surgical History (units (unknown) date) (Updated 10/25/22 unknown) @ 04:00 by Ana Maria Ortega [facility]) (unknown) (no (unknown) (unknown) Temperature 97.4 (units (unknown) date) F L unknown) (unknown) (no (unknown) (unknown) Visit (units (unkno wn) date) Report/Discharge unknown) Packet (unknown) (no (unknown) (unknown) Vital Signs (units (un known) date) unknown) (unknown) (no (unknown) (unknown) Xarelto 20 mg (units ( unknown) date) Tablet unknown) (unknown) (no (unknown) (unknown) Xarelto for many (units (unknown) date) years, pacemaker unknown) placement for sick sinus syndrome, history of (unknown) (no (unknown) (unknown) Xarelto, multiple (units (unknown) date) healing lumbar unknown) compression fractures, bilateral rib fractures, (unknown) (no (unknown) (unknown) [Embedded Image (units (unknown) date) Not Available] unknown) (unknown) (no (unknown) (unknown) aches, chills, (units (unknown) date) abdominal pain, unknown) nausea, vomiting, diarrhea, urinary symptoms, (unknown) (no (unknown) (unknown) alcohol intake: (units (unknown) date) current unknown) (unknown) (no (unknown) (unknown) arousable. In ED (units (unknown) date) patient was in unknown) AFib with RVR heart rates 143-30, and 2 (unknown) (no (unknown) (unknown) at rest with no (units (unknown) date) movement in bed. unknown) Patient denies headache, changes in vision, (unknown) (no (unknown) (unknown) bupropion HCl 150 (units (unknown) date) mg Tablet unknown) Sustained-Release 12 Hr (unknown) (no (unknown) (unknown) comparison for (units (unknown) date) labs diagnostics unknown) or EKG in system. CT of chest abdomen pelvis: (unknown) (no (unknown) (unknown) continues to be (units (unknown) date) in sinus rhythm. unknown) No WBC, mono 11,000. Stable electrolytes (unknown) (no (unknown) (unknown) cough, (units (unkno wn) date) congestion, ear unknown) eye discomfort, upper respiratory symptoms, fever, body (unknown) (no (unknown) (unknown) diltiazem HCl 240 (units (unknown) date) mg unknown) Capsule,Extended Release 24hr (unknown) (no (unknown) (unknown) discharge home. (units (unknown) date) Continue to take unknown) tylenol extra strength 1 pill twice daily, and (unknown) (no (unknown) (unknown) dorzolamide-timol (units (unknown) date) ol 22.3-6.8 mg/mL unknown) Drops (unknown) (no (unknown) (unknown) episodes of (units (un known) date) V-tach 8 attend be unknown) runs. Was successfully cardioverted and (unknown) (no (unknown) (unknown) evaluated in (units (u nknown) date) imaging completed unknown) prior at another facility, and has seen Dr. Norman (unknown) (no (unknown) (unknown) finasteride 5 mg (units (unknown) date) Tablet unknown) (unknown) (no (unknown) (unknown) fractures due to (units (unknown) date) 2 ground level unknown) falls. presented to ED for worsening episodes (unknown) (no (unknown) (unknown) fully empties (units ( unknown) date) bladder, unknown) hematemesis, hematuria, changes in bowel, melena, recent (unknown) (no (unknown) (unknown) gabapentin (units (unk nown) date) [Neurontin] 300 mg unknown) Capsule (unknown) (no (unknown) (unknown) household (units (unkn own) date) members: none and unknown) other (unknown) (no (unknown) (unknown) left medial (units (un known) date) clavicle fracture unknown) unstable gait frequent falls. Dr. Villar in the (unknown) (no (unknown) (unknown) medication (units (unk nown) date) changes, exposure unknown) too or illness. (unknown) (no (unknown) (unknown) medication. At the (units (unknown) date) time of admit unknown) patient was resting comfortably denied any pain (unknown) (no (unknown) (unknown) must administer (units (unknown) date) with evening meal unknown) (unknown) (no (unknown) (unknown) negative, initial (units (unknown) date) EKG in ED AFib unknown) with a rate of 136, post cardioversion sinus (unknown) (no (unknown) (unknown) new gabapentin (units (unknown) date) was prescribed. unknown) Use opiates for as needed pain relief at home. (unknown) (no (unknown) (unknown) nonobstructing, (units (unknown) date) cholelithiasis, unknown) colonic diverticulosis. Patient was seen (unknown) (no (unknown) (unknown) of shortness of (units (unknown) date) breath and fatigue unknown) but primarily due to severe midline low back (unknown) (no (unknown) (unknown) omeprazole 20 mg (units (unknown) date) Capsule,Delayed unknown) Release(Dr/Ec) (unknown) (no (unknown) (unknown) ortho regarding (units (unknown) date) multiple unknown) fractures, is scheduled for follow-up on 10/25/2021. (unknown) (no (unknown) (unknown) oxycodone 5 mg (units (unknown) date) tablet unknown) (unknown) (no (unknown) (unknown) pain occasional (units (unknown) date) shortness of unknown) breath which is normal for him.? In ED he had (unknown) (no (unknown) (unknown) pain, improved (units (unknown) date) with pain unknown) medication. You did well with therapy and will (unknown) (no (unknown) (unknown) pain. Which is (units (unknown) date) now impacting his unknown) ability to function home, safety, and manage (unknown) (no (unknown) (unknown) potassium 3.8, (units (unknown) date) Mag 1.9, PT 17.4, unknown) INR 1.5, initial troponin negative, COVID (unknown) (no (unknown) (unknown) prescriptions. (units (unknown) date) Continue to wear unknown) TLSO brace at home, follow up with orthopedic (unknown) (no (unknown) (unknown) process but (units (un known) date) nothing further unknown) noted. Patient admitted for AFib with RVR, pacer on (unknown) (no (unknown) (unknown) requires surgical (units (unknown) date) intervention, will unknown) evaluate tomorrow. (unknown) (no (unknown) (unknown) rhythm with sinus (units (unknown) date) arrhythmia rate of unknown) [address] and T-wave changes, no (unknown) (no (unknown) (unknown) right eye (units (unkn own) date) unknown) (unknown) (no (unknown) (unknown) saturation 98% on (units (unknown) date) room air. Patient unknown) resting comfortably sleeping bed easily (unknown) (no (unknown) (unknown) seen 10/07/22 for (units (unknown) date) multiple lumbar unknown) compression fractures, clavicle fracture, rib (unknown) (no (unknown) (unknown) significant pain (units (unknown) date) worse with range unknown) of motion and improves with rest and pain (unknown) (no (unknown) (unknown) surgeon in 2 (units (u nknown) date) weeks. unknown) (unknown) (no (unknown) (unknown) tamsulosin 0.4 mg (units (unknown) date) Capsule unknown) (unknown) (no (unknown) (unknown) this time. (units (unknown) date) [facility]) consulted in ED does not feel that the patient (unknown) (no (unknown) (unknown) triamcinolone (units ( unknown) date) acetonide 0.1 % unknown) Ointment (unknown) (no (unknown) (unknown) ventricular (units (un known) date) tachycardia, unknown) osteoporosis, BPH frequent falls, previously imaged (unknown) (no (unknown) (unknown) vitamin B complex (units (unknown) date) [B Complex-Vitamin unknown) B12] Tablet Result panel 284 (unknown) (no (unknown) (unknown) (no value) (units (unk nown) date) unknown) (unknown) (no (unknown) (unknown) (past 8 hours): (units (unknown) date) unknown) (unknown) (no (unknown) (unknown) 0.4 mg PO BEDTIME (units (unknown) date) unknown) (unknown) (no (unknown) (unknown) 10/24/22 21:15 (units (unknown) date) unknown) (unknown) (no (unknown) (unknown) 10/24/22 21:50 (units (unknown) date) unknown) (unknown) (no (unknown) (unknown) 10/24/22 21:59 (units (unknown) date) unknown) (unknown) (no (unknown) (unknown) 10/24/22 22:00 (units (unknown) date) unknown) (unknown) (no (unknown) (unknown) 10/24/22 23:08 (units (unknown) date) unknown) (unknown) (no (unknown) (unknown) 10/25/22 03:45 (units (unknown) date) unknown) (unknown) (no (unknown) (unknown) 10/26/22 05:53 (units (unknown) date) unknown) (unknown) (no (unknown) (unknown) 10/26/22 1832 (units ( unknown) date) unknown) (unknown) (no (unknown) (unknown) 10/26/22 (units (unkno wn) date) unknown) (unknown) (no (unknown) (unknown) [id number] (units (unkno wn) date) unknown) (unknown) (no (unknown) (unknown) 05:53 (units (unkno wn) date) unknown) (unknown) (no (unknown) (unknown) 1 applic TOPICAL (units (unknown) date) DAILY PRN (Reason: unknown) Dry Skin) (unknown) (no (unknown) (unknown) 1 drp OPHTHALMIC (units (unknown) date) (EYE) DAILY unknown) (unknown) (no (unknown) (unknown) 1 tab PO DAILY (units (unknown) date) unknown) (unknown) (no (unknown) (unknown) 1. AFib with RVR, (units (unknown) date) acute on chronic, unknown) on Xarelto, ventricular tachycardia, (unknown) (no (unknown) (unknown) 11:59 (units (unkno wn) date) unknown) (unknown) (no (unknown) (unknown) 150 mg PO BID (units ( unknown) date) unknown) (unknown) (no (unknown) (unknown) 2. Unstable gait, (units (unknown) date) frequent GLF unknown) falls, resulting in multiple pathologic (unknown) (no (unknown) (unknown) 20 mg PO DAILY (units (unknown) date) unknown) (unknown) (no (unknown) (unknown) 20 mg PO QPM (units (u nknown) date) unknown) (unknown) (no (unknown) (unknown) 240 mg PO DAILY (units (unknown) date) unknown) (unknown) (no (unknown) (unknown) 3. Moderate (units (un known) date) Malnutrition unknown) (unknown) (no (unknown) (unknown) 300 mg PO TID 30 (units (unknown) date) Days Qty: 90 0RF unknown) (unknown) (no (unknown) (unknown) 4. BPH, chronic, (units (unknown) date) present on unknown) admission (unknown) (no (unknown) (unknown) 5 - 10 mg PO Q6H (units (unknown) date) PRN (Reason: Pain, unknown) Severe (7-10)) 7 Days Qty: 40 0RF (unknown) (no (unknown) (unknown) 5 mg PO DAILY (units ( unknown) date) unknown) (unknown) (no (unknown) (unknown) 5. GERD, chronic, (units (unknown) date) present on unknown) admission (unknown) (no (unknown) (unknown) ADLs.? He denies (units (unknown) date) any numbness, unknown) tingling, bowel or bladder incontinence, chest (unknown) (no (unknown) (unknown) Abdomen: S NT ND. (units (unknown) date) unknown) (unknown) (no (unknown) (unknown) Activity: As (units (u nknown) date) tolerated unknown) (unknown) (no (unknown) (unknown) Age/Sex: 86 / M (units (unknown) date) unknown) (unknown) (no (unknown) (unknown) Attending (units (unkn own) date) Provider: unknown) Ana Maria Ortega (unknown) (no (unknown) (unknown) BPH (benign (units (un known) date) prostatic unknown) hyperplasia) (unknown) (no (unknown) (unknown) BUN 7 L (units (unkno wn) date) unknown) (unknown) (no (unknown) (unknown) BUN/Creatinine (units (unknown) date) Ratio 11.5 unknown) (unknown) (no (unknown) (unknown) Blood Pressure (units (unknown) date) 110/64 unknown) (unknown) (no (unknown) (unknown) Calcium 8.6 (units (un known) date) unknown) (unknown) (no (unknown) (unknown) Carbon Dioxide 24 (units (unknown) date) unknown) (unknown) (no (unknown) (unknown) Cardio:?RRR no (units (unknown) date) m/r/g. unknown) (unknown) (no (unknown) (unknown) Chest x-ray (units (un known) date) radiology noted unknown) was a poor exam, document abnormal cardiopulmonary (unknown) (no (unknown) (unknown) Chief complaint: (units (unknown) date) Back pain unknown) (unknown) (no (unknown) (unknown) Chloride 106 (units (u nknown) date) unknown) (unknown) (no (unknown) (unknown) Chronic (units (unkno wn) date) anticoagulation unknown) (unknown) (no (unknown) (unknown) Comment: Multiple (units (unknown) date) falls, comp FX unknown) lumbar, gait instability (unknown) (no (unknown) (unknown) Comment: (units (unkno wn) date) unknown) (unknown) (no (unknown) (unknown) Consult to (units (unk nown) date) Dietitian, Adult unknown) Routine (unknown) (no (unknown) (unknown) Consult to (units (unk nown) date) Occupational unknown) Therapy Evaluate + Treat (unknown) (no (unknown) (unknown) Consult to (units (unk nown) date) Physical Therapy unknown) Evaluate + Treat (unknown) (no (unknown) (unknown) Consult to (units (unk nown) date) Physician Routine unknown) (unknown) (no (unknown) (unknown) Consulting (units (unk nown) date) Provider: unknown) Génesis Cortes (unknown) (no (unknown) (unknown) Consults: (units (unkn own) date) unknown) (unknown) (no (unknown) (unknown) Continued (units (unkn own) date) unknown) (unknown) (no (unknown) (unknown) Creatinine 0.61 L (units (unknown) date) unknown) (unknown) (no (unknown) (unknown) : 1935 (units (unknown) date) Acct:[id number] unknown) (unknown) (no (unknown) (unknown) Date Patient (units (u nknown) date) Seen: 10/26/22 unknown) (unknown) (no (unknown) (unknown) Date of Service: (units (unknown) date) 10/24/22 unknown) (unknown) (no (unknown) (unknown) Date of (units (unkno wn) date) admission: unknown) (unknown) (no (unknown) (unknown) Diet/Activity/Chin (units (unknown) date) atments unknown) (unknown) (no (unknown) (unknown) Diet: Diet as (units ( unknown) date) Tolerated unknown) (unknown) (no (unknown) (unknown) Discharge Data (units (unknown) date) unknown) (unknown) (no (unknown) (unknown) Discharge Date: (units (unknown) date) 10/26/22 unknown) (unknown) (no (unknown) (unknown) Discharge (units (unkn own) date) Diagnosis: unknown) (unknown) (no (unknown) (unknown) Discharge Plan (units (unknown) date) unknown) (unknown) (no (unknown) (unknown) Discharge (units (unkn own) date) Providers unknown) (unknown) (no (unknown) (unknown) Discharge Summary (units (unknown) date) unknown) (unknown) (no (unknown) (unknown) Discharge orders (units (unknown) date) + Medications unknown) (unknown) (no (unknown) (unknown) Discharge (units (unkn own) date) provider: unknown) (unknown) (no (unknown) (unknown) ED noted a (units (unk nown) date) possible unknown) developing ileus, but no documented findings on imaging at (unknown) (no (unknown) (unknown) Estimated GFR > (units (unknown) date) 60 unknown) (unknown) (no (unknown) (unknown) Exam Narrative: (units (unknown) date) unknown) (unknown) (no (unknown) (unknown) Exam (units (unkno wn) date) unknown) (unknown) (no (unknown) (unknown) Extremities: No (units (unknown) date) edema or joint unknown) effusions. No cyanosis or clubbing. (unknown) (no (unknown) (unknown) Family History (units (unknown) date) (Reviewed 10/25/22 unknown) @ 04:01 by ALESSIO Mercado) (unknown) (no (unknown) (unknown) Father (units (unknown) date) No problems noted. unknown) (unknown) (no (unknown) (unknown) Follow up with (units (unknown) date) PCP for pain unknown) management in the next 1-2 weeks and for future (unknown) (no (unknown) (unknown) General:? elderly (units (unknown) date) male, in no unknown) distress at this time. (unknown) (no (unknown) (unknown) Given patient's (units (unknown) date) presenting AFib unknown) with RVR, his pacemaker was interrogated in the (unknown) (no (unknown) (unknown) Glucose 77 L (units (u nknown) date) unknown) (unknown) (no (unknown) (unknown) HEENT:? (units (unkno wn) date) Normocephalic, unknown) atraumatic, extraocular muscles intact, oral pharynx is (unknown) (no (unknown) (unknown) Has provider been (units (unknown) date) notified: Yes unknown) (unknown) (no (unknown) (unknown) History of (units (unk nown) date) Present Illness unknown) (unknown) (no (unknown) (unknown) 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 (unknown) (no (unknown) (unknown) Hospital Course (units (unknown) date) unknown) (unknown) (no (unknown) (unknown) Hospital Course: (units (unknown) date) unknown) (unknown) (no (unknown) (unknown) Instructions: Low (units (unknown) date) Back Pain, DI for unknown) Prescription Opioid Use (unknown) (no (unknown) (unknown) [facility] (units (unknown) date) [address] [place] [address] Street unknown) [place] [address] (unknown) (no (unknown) (unknown) Nicolas Leonenson (units (unknown) date) 86-year-old male unknown) slightly poor historian with history of AFib on (unknown) (no (unknown) (unknown) Laboratory (units (unk nown) date) Results - last 24 unknown) hr (unknown) (no (unknown) (unknown) Labs (units (unkno wn) date) unknown) (unknown) (no (unknown) (unknown) Labs: (units (unkno wn) date) unknown) (unknown) (no (unknown) (unknown) Lumigan 0.01 % (units (unknown) date) Drops unknown) (unknown) (no (unknown) (unknown) Lungs:? CTA b/l (units (unknown) date) no wheezing unknown) rhonchi or rales. (unknown) (no (unknown) (unknown) Magnesium 1.9 (units ( unknown) date) unknown) (unknown) (no (unknown) (unknown) Medical History (units (unknown) date) (Updated 10/25/22 unknown) @ 04:00 by ALESSIO Mercado) (unknown) (no (unknown) (unknown) Mother (units (unknown) date) Cancer unknown) (unknown) (no (unknown) (unknown) Multiple lumbar (units (unknown) date) compression unknown) fractures L1-L4, hepatic steatosis, noted gallstones (unknown) (no (unknown) (unknown) Musculoskeletal:? (units (unknown) date) Muscle strength unknown) and tone are equal within normal limits, no (unknown) (no (unknown) (unknown) Narrative (units (unkn own) date) unknown) (unknown) (no (unknown) (unknown) Narrative: (units (unk nown) date) unknown) (unknown) (no (unknown) (unknown) Neck: supple and (units (unknown) date) symmetric, trachea unknown) is midline, no cervical adenopathy. (unknown) (no (unknown) (unknown) Neuro:? Alert and (units (unknown) date) orientated x3,? unknown) sensation to touch intact in all extremities, (unknown) (no (unknown) (unknown) New (units (unkno wn) date) unknown) (unknown) (no (unknown) (unknown) Objective (units (unkn own) date) unknown) (unknown) (no (unknown) (unknown) On admit patient (units (unknown) date) is stable temp unknown) 98.2?, BP 140/80, HR 90 sinus rhythm, RR 15, O2 (unknown) (no (unknown) (unknown) Osteoporosis (units (u nknown) date) unknown) (unknown) (no (unknown) (unknown) Oxygen Delivery (units (unknown) date) Method Room Air unknown) (unknown) (no (unknown) (unknown) Oxygen Flow Rate (units (unknown) date) 0 unknown) (unknown) (no (unknown) (unknown) PFSH (units (unkno wn) date) unknown) (unknown) (no (unknown) (unknown) Patient (units (unkno wn) date) Disposition: Home unknown) (unknown) (no (unknown) (unknown) Patient: (units (unkno wn) date) Nicolas Neely unknown) MR#: [id number] (unknown) (no (unknown) (unknown) Per admitting (units ( unknown) date) provider, unknown) (unknown) (no (unknown) (unknown) Physician (units (unkn own) date) Instructions: unknown) Evaluate and Treat (unknown) (no (unknown) (unknown) Physician (units (unkn own) date) Instructions: unknown) Evaluate and treat (unknown) (no (unknown) (unknown) Potassium 3.4 (units ( unknown) date) unknown) (unknown) (no (unknown) (unknown) Prescriptions: (units (unknown) date) unknown) (unknown) (no (unknown) (unknown) Provider (units (unkno wn) date) Discharge Comment: unknown) You were admitted to the hospital with low back (unknown) (no (unknown) (unknown) Provider (units (unkno wn) date) unknown) (unknown) (no (unknown) (unknown) Provider: (units (unkn own) date) Franck Winston unknown) D.O. (unknown) (no (unknown) (unknown) Psych:? Patient (units (unknown) date) has a well-kept unknown) appearance, appropriate affect, mental status (unknown) (no (unknown) (unknown) Pulse Oximetry 96 (units (unknown) date) unknown) (unknown) (no (unknown) (unknown) Pulse Rate 78 (units ( unknown) date) unknown) (unknown) (no (unknown) (unknown) Reason For Exam: (units (unknown) date) MNA score = 11 unknown) (unknown) (no (unknown) (unknown) Reason For Exam: (units (unknown) date) bmi 22.8 unknown) (unknown) (no (unknown) (unknown) Reason for (units (unk nown) date) consultation: unknown) Multiple compression fractures (unknown) (no (unknown) (unknown) Respiratory Rate (units (unknown) date) 17 unknown) (unknown) (no (unknown) (unknown) Result Diagrams: (units (unknown) date) unknown) (unknown) (no (unknown) (unknown) Franck Winston, (units (unknown) date) DO unknown) (unknown) (no (unknown) (unknown) Rx Instructions: (units (unknown) date) unknown) (unknown) (no (unknown) (unknown) Signed (units (unkno wn) date) By:<Electronically unknown) signed by Franck Winston D.O.> (unknown) (no (unknown) (unknown) Skin:? Pale,? (units ( unknown) date) Warm to touch,dry unknown) and intact without rashes, ulcerations or (unknown) (no (unknown) (unknown) Smoking Status: (units (unknown) date) Never smoker unknown) (unknown) (no (unknown) (unknown) Social History (units (unknown) date) unknown) (unknown) (no (unknown) (unknown) Sodium 138 (units (unk nown) date) unknown) (unknown) (no (unknown) (unknown) Stand Alone (units (un known) date) Forms: Patient unknown) Portal/API, Stroke Signs + Symptoms (unknown) (no (unknown) (unknown) Summary (units (unkno wn) date) unknown) (unknown) (no (unknown) (unknown) Surgical History (units (unknown) date) (Updated 10/25/22 unknown) @ 04:00 by Ana Maria Ortega [facility]) (unknown) (no (unknown) (unknown) Temperature 97.4 (units (unknown) date) F L unknown) (unknown) (no (unknown) (unknown) Time Spent with (units (unknown) date) Patient unknown) (unknown) (no (unknown) (unknown) Time spent: (units (un known) date) Greater than 30 unknown) minutes (unknown) (no (unknown) (unknown) Visit (units (unkno wn) date) Report/Discharge unknown) Packet (unknown) (no (unknown) (unknown) Vital Signs (units (un known) date) unknown) (unknown) (no (unknown) (unknown) Xarelto 20 mg (units ( unknown) date) Tablet unknown) (unknown) (no (unknown) (unknown) Xarelto for many (units (unknown) date) years, pacemaker unknown) placement for sick sinus syndrome, history of (unknown) (no (unknown) (unknown) Xarelto, multiple (units (unknown) date) healing lumbar unknown) compression fractures, bilateral rib fractures, (unknown) (no (unknown) (unknown) [Embedded Image (units (unknown) date) Not Available] unknown) (unknown) (no (unknown) (unknown) ability to (units (unkn own) date) function home, unknown) safety, and manage ADLs. He was found to have multiple (unknown) (no (unknown) (unknown) aches, chills, (units (unknown) date) abdominal pain, unknown) nausea, vomiting, diarrhea, urinary symptoms, (unknown) (no (unknown) (unknown) alcohol intake: (units (unknown) date) current unknown) (unknown) (no (unknown) (unknown) and outpatient (units (unknown) date) follow-up with unknown) Orthopedic surgery is recommended. Patient was (unknown) (no (unknown) (unknown) arousable. In ED (units (unknown) date) patient was in unknown) AFib with RVR heart rates 143-30, and 2 (unknown) (no (unknown) (unknown) at rest with no (units (unknown) date) movement in bed. unknown) Patient denies headache, changes in vision, (unknown) (no (unknown) (unknown) attitude thought (units (unknown) date) context and unknown) judgment are appropriate for age. 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 (unknown) (no (unknown) (unknown) clear and mucous (units (unknown) date) membranes are unknown) moist. (unknown) (no (unknown) (unknown) comparison for (units (unknown) date) labs diagnostics unknown) or EKG in system. CT of chest abdomen pelvis: (unknown) (no (unknown) (unknown) complaints. For (units (unknown) date) his acute back unknown) pain, the patient was started on Tylenol, (unknown) (no (unknown) (unknown) compression (units (un known) date) fractures, unknown) bilateral rib fractures, and a left clavicular fracture. (unknown) (no (unknown) (unknown) compression (units (unk nown) date) fractures, lumbar, unknown) clavicle-left, ribs-bilaterally, with osteoporosi (unknown) (no (unknown) (unknown) continues to be (units (unknown) date) in sinus rhythm. unknown) No WBC, mono 11,000. Stable electrolytes (unknown) (no (unknown) (unknown) cough, (units (unkno wn) date) congestion, ear unknown) eye discomfort, upper respiratory symptoms, fever, body (unknown) (no (unknown) (unknown) deformity. (units (unk nown) date) unknown) (unknown) (no (unknown) (unknown) diltiazem HCl 240 (units (unknown) date) mg unknown) Capsule,Extended Release 24hr (unknown) (no (unknown) (unknown) discharge home. (units (unknown) date) Continue to take unknown) tylenol extra strength 1 pill twice daily, and (unknown) (no (unknown) (unknown) dorzolamide-timol (units (unknown) date) ol 22.3-6.8 mg/mL unknown) Drops (unknown) (no (unknown) (unknown) emergency room (units (unknown) date) and was found to unknown) be in good condition. There were their (unknown) (no (unknown) (unknown) episodes of (units (un known) date) V-tach 8 attend be unknown) runs. Was successfully cardioverted and (unknown) (no (unknown) (unknown) evaluated for (units ( unknown) date) moderate unknown) malnutrition, likely due to side effects of his cardiac (unknown) (no (unknown) (unknown) evaluated in (units (u nknown) date) imaging completed unknown) prior at another facility, and has seen Dr. Norman (unknown) (no (unknown) (unknown) failure, present (units (unknown) date) on admission- unknown) resolved (unknown) (no (unknown) (unknown) fatigue, and (units (u nknown) date) worsening severe unknown) midline low back pain, that was impairing his (unknown) (no (unknown) (unknown) finasteride 5 mg (units (unknown) date) Tablet unknown) (unknown) (no (unknown) (unknown) fractures due to (units (unknown) date) 2 ground level unknown) falls. presented to ED for worsening episodes (unknown) (no (unknown) (unknown) fully empties (units ( unknown) date) bladder, unknown) hematemesis, hematuria, changes in bowel, melena, recent (unknown) (no (unknown) (unknown) gabapentin (units (unk nown) date) [Neurontin] 300 mg unknown) Capsule (unknown) (no (unknown) (unknown) gabapentin, and (units (unknown) date) opiates with unknown) improvement in his pain. He felt better than he (unknown) (no (unknown) (unknown) ground level fall (units (unknown) date) September of 2022.? unknown) Presented to ED due to increasing SOB, (unknown) (no (unknown) (unknown) had in a long (units ( unknown) date) time and did well unknown) with physical therapy. He was discharged home (unknown) (no (unknown) (unknown) household (units (unkn own) date) members: none and unknown) other (unknown) (no (unknown) (unknown) incidence after (units (unknown) date) admission to the unknown) hospital, and the patient had no presenting (unknown) (no (unknown) (unknown) intermittent, (units ( unknown) date) acute on chronic, unknown) with implanted pacemaker, chronic, acute (unknown) (no (unknown) (unknown) left medial (units (un known) date) clavicle fracture unknown) unstable gait frequent falls. Dr. Villar in the (unknown) (no (unknown) (unknown) medication (units (unk nown) date) changes, exposure unknown) too or illness. (unknown) (no (unknown) (unknown) medication. At the (units (unknown) date) time of admit unknown) patient was resting comfortably denied any pain (unknown) (no (unknown) (unknown) medications (units (un known) date) causing dry mouth. unknown) Outpatient follow-up was recommended with his (unknown) (no (unknown) (unknown) multiple lumbar (units (unknown) date) compression unknown) fractures, clavicle fracture, rib fractures due to a (unknown) (no (unknown) (unknown) must administer (units (unknown) date) with evening meal unknown) (unknown) (no (unknown) (unknown) negative, initial (units (unknown) date) EKG in ED AFib unknown) with a rate of 136, post cardioversion sinus (unknown) (no (unknown) (unknown) new gabapentin (units (unknown) date) was prescribed. unknown) Use opiates for as needed pain relief at home. (unknown) (no (unknown) (unknown) no gross deficits (units (unknown) date) noted of cranial unknown) nerves. Suspect mild cognitive impairment (unknown) (no (unknown) (unknown) nonobstructing, (units (unknown) date) cholelithiasis, unknown) colonic diverticulosis. Patient was seen (unknown) (no (unknown) (unknown) of shortness of (units (unknown) date) breath and fatigue unknown) but primarily due to severe midline low back (unknown) (no (unknown) (unknown) omeprazole 20 mg (units (unknown) date) Capsule,Delayed unknown) Release(Dr/Ec) (unknown) (no (unknown) (unknown) ortho regarding (units (unknown) date) multiple unknown) fractures, is scheduled for follow-up on 10/25/2021. (unknown) (no (unknown) (unknown) oxycodone 5 mg (units (unknown) date) tablet unknown) (unknown) (no (unknown) (unknown) pain occasional (units (unknown) date) shortness of unknown) breath which is normal for him.? In ED he had (unknown) (no (unknown) (unknown) pain, improved (units (unknown) date) with pain unknown) medication. You did well with therapy and will (unknown) (no (unknown) (unknown) pain. Which is (units (unknown) date) now impacting his unknown) ability to function home, safety, and manage (unknown) (no (unknown) (unknown) petechiae.? (units (un known) date) unknown) (unknown) (no (unknown) (unknown) potassium 3.8, (units (unknown) date) Mag 1.9, PT 17.4, unknown) INR 1.5, initial troponin negative, COVID (unknown) (no (unknown) (unknown) prescriptions. (units (unknown) date) Continue to wear unknown) TLSO brace at home, follow up with orthopedic (unknown) (no (unknown) (unknown) process but (units (un known) date) nothing further unknown) noted. Patient admitted for AFib with RVR, pacer on (unknown) (no (unknown) (unknown) requires surgical (units (unknown) date) intervention, will unknown) evaluate tomorrow. (unknown) (no (unknown) (unknown) rhythm with sinus (units (unknown) date) arrhythmia rate of unknown) [address] and T-wave changes, no (unknown) (no (unknown) (unknown) right eye (units (unkn own) date) unknown) (unknown) (no (unknown) (unknown) s, acute on (units (un known) date) chronic, present unknown) on admission (unknown) (no (unknown) (unknown) saturation 98% on (units (unknown) date) room air. Patient unknown) resting comfortably sleeping bed easily (unknown) (no (unknown) (unknown) seen 10/07/22 for (units (unknown) date) multiple lumbar unknown) compression fractures, clavicle fracture, rib (unknown) (no (unknown) (unknown) significant pain (units (unknown) date) worse with range unknown) of motion and improves with rest and pain (unknown) (no (unknown) (unknown) surgeon in 2 (units (u nknown) date) weeks. unknown) (unknown) (no (unknown) (unknown) tamsulosin 0.4 mg (units (unknown) date) Capsule unknown) (unknown) (no (unknown) (unknown) this time. (units (unknown) date) [facility]) consulted in ED does not feel that the patient (unknown) (no (unknown) (unknown) triamcinolone (units ( unknown) date) acetonide 0.1 % unknown) Ointment (unknown) (no (unknown) (unknown) ventricular (units (un known) date) tachycardia, unknown) osteoporosis, BPH frequent falls, previously imaged (unknown) (no (unknown) (unknown) ventricular (units (un known) date) tachycardia, unknown) osteoporosis, frequent falls, previously seen for (unknown) (no (unknown) (unknown) vitamin B complex (units (unknown) date) [B Complex-Vitamin unknown) B12] Tablet Social History date description facility 2022-10-24 00:00 Never smoked tobacco ([facility] Vital Signs date measurement value units 2022-10-24 00:00 BMI 22.8 kg/m2 2022-10-24 00:00 BP_diastolic 82 mmHg 2022-10-24 00:00 BP_systolic 142 mmHg 2022-10-24 00:00 heart_rate 85 /min 2022-10-24 00:00 height_metric 172.72 cm 2022-10-24 00:00 height_standard 68 in 2022-10-24 00:00 o2_saturation 96 % 2022-10-24 00:00 respiration_rate 18 /min 2022-10-24 00:00 temperature_metric 36.78 C 2022-10-24 00:00 temperature_standard 98.2 F 2022-10-24 00:00 weight_metric 68.03 kg 2022-10-24 00:00 weight_standard 149.98 lb 2022-10-26 00:00 BP_diastolic 64 mmHg 2022-10-26 00:00 BP_systolic 110 mmHg 2022-10-26 00:00 heart_rate 78 /min 2022-10-26 00:00 o2_saturation 96 % 2022-10-26 00:00 respiration_rate 17 /min 2022-10-26 00:00 temperature_metric 36.33 C 2022-10-26 00:00 temperature_standard 97.4 F 2022-10-26 00:00 weight_metric 68 kg 2022-10-26 00:00 weight_standard 149.91 lb
--- NOTE | 2022-11-03 23:44 | CT Report ---
PROCEDURE: HEAD WO INDICATIONS: head inj TECHNIQUE: Noncontrast 4.5 mm thick angled axial sections acquired from the foramen magnum to the vertex. For r adiation dose reduction, the following was used: automated exposure control, adjustment of mA and/or kV according to patient size. COMPARISON: CT head 08/28/2022. FINDINGS: Image quality: Excellent. CSF spaces: There is moderate cerebral volume loss with prominence of the ventricles and sulci. Basa l cisterns are patent. No extra-axial fluid collections. Brain: No intracranial hemorrhage, mass, or mass effect. Chavira-white matter interface is preserved. T here are subcortical and periventricular white matter hypodensities consistent with mild chronic smal l vessel ischemic changes. There is a focal calcification in the left frontal lobe redemonstrated. Skull and face: There is a right posterior parietal scalp laceration with multiple skin leatha. Ca lvarium and visualized facial bones are intact, without suspicious lesions. Sinuses: Visualized sinuses and mastoids are clear. IMPRESSION: 1. No acute intracranial modality. 2. Moderate cerebral volume loss and mild chronic white matter small vessel ischemic changes. 3. Right posterior parietal scalp laceration without evidence of underlying fracture. Reviewed by: Paras Ritter MD on 11/03/2022 11:42 PM PST Approved by: Paras Ritter MD on 11/03/2022 11:42 PM PST Station ID: [id number]
--- NOTE | 2022-11-03 23:46 | CT Report ---
PROCEDURE: CERVICAL SPINE WO INDICATIONS: head inj TECHNIQUE: Noncontrast 3 mm thick sections acquired from the skull base to the T4 level. Sagittal and coronal r eformats were then constructed. For radiation dose reduction, the following was used: automated exp osure control, adjustment of mA and/or kV according to patient size. COMPARISON: None. FINDINGS: Image quality: Excellent. Bones: No fractures or subluxation. There is straightening of the cervical lordosis. Multilevel dege nerative disc disease and facet arthropathy are present. Visualized superior ribs are intact. Soft tissues: Prevertebral soft tissues are normal in thickness. No paravertebral hematomas. No ap ical pneumothoraces. IMPRESSION: 1. No fracture or subluxation. 2. Multilevel degenerative changes throughout the cervical spine. Reviewed by: Paras Velasquez MD on 11/03/2022 11:45 PM PST Approved by: Paras Velasquez MD on 11/03/2022 11:45 PM [facility] Station ID: [id number]
[2022-11-04 00:10] VITALS: BP 116/75
== END 2022-11-04 01:25 | disposition home or self-care (01) ==
LOC: EDUNIT# → ED 22:31
DX: S01.01XA Laceration without foreign body of scalp, initial encounter (principal); S09.90XA Unspecified injury of head, initial encounter; W22.03XA Walked into furniture, initial encounter; W18.39XA Other fall on same level, initial encounter; Z79.01 Long term (current) use of anticoagulants
CPT/HCPCS: 12002; 36415; 80048; 85025; 86850; 86900; 86901; 90471; 99283; 99284

== ENCOUNTER 2022-12-28 11:07 | Outpatient (CLI) | payer MEDICARE, OTHER | END 2022-12-28 23:59 | disposition short-term general hospital (02) | LOC: EMS 11:07 | DX: M54.50 Low back pain, unspecified (principal); W19.XXXA Unspecified fall, initial encounter; Z79.01 Long term (current) use of anticoagulants | CPT/HCPCS: A0425; A0429 ==

== ENCOUNTER 2023-02-20 22:12 | Outpatient (CLI) | payer MEDICARE, OTHER | END 2023-02-20 23:59 | disposition critical access hospital (66) | LOC: EMS 22:12 | DX: K92.1 Melena (principal); R06.02 Shortness of breath; Z79.01 Long term (current) use of anticoagulants | CPT/HCPCS: A0425; A0429 ==

== ENCOUNTER 2023-02-20 23:01 | Inpatient (IN) | payer MEDICARE, OTHER ==
--- NOTE | 2023-02-20 23:16 | ED Physician Documentation ---
PD HPI GI BLEED - Stated complaint Stated Complaint: RECTAL BLEED, SOA - Chief complaint Chief Complaint: General - History obtained from History obtained from: Patient, EMS, Caregiver - History of Present Illness Timing - onset: How many days ago (3) Timing - duration: Days (3) Timing - details: Abrupt onset, Intermittant (bleeding for part of day 02/18. discharged 02/19 when seemed stopped. Onset bleeding again earlier today. Caregiver took pictures and it appears maroon/purple clots and blood. EMS reports about 125 ml output visible to their estimate.), Waxing and waning (Initial notice of red to purple blood per rectum 3 days ago with several bowel movements. This was abrupt in onset without pain. Was seen at [facility] ER in [place] and had evaluation, CT scan, labs, repeat blood counts and transfusion 1 unit of blood. Bleeding seemed to stop clinically.) Associated symptoms: Maroon stool. No: Hematemesis Contributing factors: Anticoagulated (Xarelto for atrial fib, and this has been not taken/held since .) Similar symptoms before: No diagnosis, Work up / diagnostics (had labs and abd CT done 2 days ago in [facility] ER, and EGD by surgery Dr. Altman AM 02/19. There was no gastric bleeding. Note of superficial telangectasias. Recommended for outpt colonoscopy after off Xarelto 3 days and had prep. Clinically was not haveing ongoing bleeding so discharged.), Other (had CT abd on 02/18 showing diverticula descending/sigmoid without visible diverticulitis at that time.) Recently seen: Emergency Dept Review of Systems Constitutional: denies: Fever, Chills Nose: denies: Rhinorrhea / runny nose, Congestion Throat: denies: Sore throat Respiratory: reports: Cough (mild with positive covid test 2 days ago.) GI: reports: Bloody / black stool. denies: Nausea, Vomiting, Hematemesis Neurologic: denies: Generalized weakness, Near syncope, Altered mental status PD PAST MEDICAL HISTORY - Past Medical History Cardiovascular: Atrial fibrillation Respiratory: None Neuro: Dementia (mild) Endocrine/Autoimmune: Type 2 diabetes GI: GERD, Diverticulitis : Benign prostate hypertrophy, Nocturia, Frequency HEENT: Chronic vision loss Psych: None Musculoskeletal: Chronic back pain Derm: None - Past Surgical History Past Surgical History: Yes Cardiovascular: Pacemaker - Present Medications Home Medications: Ambulatory Orders Medication Instructions Recorded Confirmed Bupropion HCl [Bupropion HCl Sr] 150 mg PO BID 08/07/14 08/29/22 Metformin HCl [Fortamet] 500 mg PO DAILY 08/07/14 08/29/22 Omeprazole 20 mg PO DAILY 08/07/14 08/29/22 dilTIAZem HCl [Diltiazem 24Hr ER 300 mg PO DAILY 07/19/19 08/29/22 (Cd)] acetaZOLAMIDE [Diamox] 250 mg PO Q6H #20 tablet 02/01/21 08/29/22 Lidocaine Patch 5% [Lidoderm Patch] 1 patch TOP DAILY PRN #10 patch 09/29/21 08/29/22 Meloxicam [Mobic] 7.5 mg PO BID PRN #7 tablet 09/29/21 08/29/22 Furosemide [Lasix] 20 mg PO DAILY #14 tablet 01/27/22 08/29/22 HYDROcod/ACETAM 5/325 [[place] 5/325] 1 ea PO Q6H PRN #18 tablet 08/23/22 08/29/22 dexAMETHasone [Decadron] 4 mg PO DAILY #5 tablet 08/23/22 08/29/22 Lidocaine Patch 5% [Lidoderm Patch] 1 patch TOP DAILY PRN #10 patch 08/29/22 HYDROcod/ACETAM 5/325 [[place] 5/325] 1 tab PO Q8H PRN 4 Days #12 tablet 09/10/22 - Allergies Allergies/Adverse Reactions: Allergies Allergy/AdvReac Type Severity Reaction Status Date / Time No Known Drug Allergies Allergy Verified 02/20/23 23:11 - Social History Does the pt smoke?: No Smoking Status: Never smoker Does the pt drink ETOH?: No Does the pt have substance abuse?: No - Immunizations Immunizations are current?: Yes - POLST Patient has POLST: No PD ED PE NORMAL - Vitals Vital signs reviewed: Yes - General General: Alert and oriented X 3, No acute distress, Well developed/nourished (low BMI of 22) - HEENT HEENT: Pharynx benign - Neck Neck: Supple, no meningeal sign, No adenopathy - Cardiac Cardiac: No: RRR (irregular but rate controlled in 80s. ) - Respiratory Respiratory: No respiratory distress, Clear bilaterally - Abdomen Abdomen: Soft, Non tender, Non distended, No organomegaly. No: Normal bowel sounds (diminished) - Male Male : Deferred - Rectal Rectal: Deferred (caregiver from home health accompnaied him to ER and has pictures of the rectal output, that is red and purple without stool. ) - Back Back: No CVA TTP - Derm Derm: Normal color, Warm and dry - Extremities Extremities: Normal ROM s pain, No edema, No calf tenderness / cord - Neuro Neuro: Alert and oriented X 3, No motor deficit, Normal speech Results - Vitals Vitals: Vital Signs - 24 hr 02/20/23 02/21/23 23:07 02:30 Temperature 36.4 C L Heart Rate 89 105 H Respiratory 11 L 27 H Rate Blood Pressure 101/78 108/70 O2 Saturation 100 98 Oxygen O2 Source Room air - Labs Labs: Laboratory Tests 02/20/23 02/20/23 02/20/23 23:19 23:19 23:19 WBC 8.7 RBC 3.22 L Hgb 10.1 L Hct 31.7 L MCV 98.4 H MCH 31.4 H MCHC 31.9 L RDW 15.9 H Plt Count 197 MPV 11.2 Neut # (Auto) 6.0 Lymph # (Auto) 1.6 [place] # (Auto) 0.9 Eos # (Auto) 0.1 Baso # (Auto) 0.1 Absolute Nucleated RBC 0.00 Nucleated RBC % 0.0 PT 16.9 H INR 1.6 H APTT 33.3 Sodium Potassium Chloride Carbon Dioxide Anion Gap BUN Creatinine Estimated GFR (MDRD) Glucose Calcium Magnesium Total Bilirubin AST ALT Alkaline Phosphatase B-Natriuretic Peptide 285 H Total Protein Albumin Globulin Albumin/Globulin Ratio Lipase Blood Type Antibody Screen 02/20/23 02/20/23 02/21/23 23:31 23:47 02:03 WBC RBC Hgb 9.2 L Hct 29.2 L MCV MCH MCHC RDW Plt Count MPV Neut # (Auto) Lymph # (Auto) [place] # (Auto) Eos # (Auto) Baso # (Auto) Absolute Nucleated RBC Nucleated RBC % PT INR APTT Sodium 140 Potassium 3.7 Chloride 111 Carbon Dioxide 20 L Anion Gap 9.0 BUN 14 Creatinine 1.0 Estimated GFR (MDRD) 71 L Glucose 74 Calcium 8.1 L Magnesium 1.8 Total Bilirubin 0.6 AST 18 ALT 19 Alkaline Phosphatase 61 B-Natriuretic Peptide Total Protein 5.7 L Albumin 2.6 L Globulin 3.1 Albumin/Globulin Ratio 0.8 L Lipase 65 H Blood Type B POSITIVE Antibody Screen NEGATIVE PD Medical Decision Making - ED course Complexity details: reviewed old records (summary packet of ER visit, labs, CT report and EGD report/surgical consult are obtained by fax, and I reviewed them. ), reviewed results, considered differential (GI bleeding that is red/purple and more likely lower. Had EGD AM 02/19 without bleeding source. Some telangectasias and recommended for no DOAC, and colonoscopy after off Xarelto 3 days. ), d/w patient, d/w office 365 consultant (I talked with Dr. Vicente who is on-call for surgery. He agrees with repeated blood counts at intervals 3 to 4 hours initially until seems stable. The patient will need colonoscopy prep. He will pass information on to Dr. Resendiz in the morning for an official consult then.) Reviewed Lab Results: His Hgb from 02/18 was 11. 8 and went down to 9.4 on AM 02/19. Reportedly got 1 unit RBCs. I do not see repeat Hgb after. Blood count today is 10.1 Hgb. Will get repat in about 4 horus. Departure - Departure Disposition: ED Place in Observation Clinical Impression: Acute lower GI bleeding, Anticoagulant long-term use, Atrial fibrillation with controlled ventricular rate, Diverticulosis Condition: Stable
[2023-02-20] MEDS ORDERED: SODIUM CHLORIDE 0.9% 1,000 ML IV STA (23:17)
--- OUTSIDE RECORDS SUMMARY | 2023-02-20 23:23 | EXTERNAL MEDICAL SUMMARY RPT | Continuity of Care Document ---
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 ( unknown) Immunizations date description facility 2022-12-04 00:00 Tetanus, Diphtheria, Pertussis (Tdap) [facility] Medications date description facility 2022-12-04 00:[address] [facility] 2022-12-04 00:[address] [facility] 2022-12-04 00:[address] [facility] 2022-12-25 00:00 [facility] Problems date description facility 2022-12-04 00:00 Acute exacerbation of chronic l ow back pain 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 2022-12-25 00:00 CT pelvis wo [facility] 2022-12-04 00:00 CT lumbar spine wo [facility] 2022-12-25 00:00 Unilateral x-ray of hip, two views, with x-ray of pelvis [facility] Results/Labs test date author facility value unit interpretation Result panel 1 (unknown) (no date) (unknown) [facility] (no value) (units unknown) (unknown) Result panel 2 (unknown) (no date) (unknown) [facility] (no value) (units unknown) (unknown) Result panel 3 (unknown) (no date) (unknown) [facility] (no value) (units unknown) (unknown) Result panel 4 (unknown) (no date) (unknown) [facility] (no value) (units unknown) (unknown) Result panel 5 (unknown) (no date) (unknown) [facility] (no value) (units unknown) (unknown) Result panel 6 (unknown) (no date) (unknown) [facility] (no value) (units unknown) (unknown) Result panel 7 (unknown) (no date) (unknown) [facility] (no value) (units unknown) (unknown) Result panel 8 (unknown) (no date) (unknown) [facility] (no value) (units unknown) (unknown) Result panel 9 (unknown) (no date) (unknown) [facility] (no value) (units unknown) (unknown) Result panel 10 (unknown) (no date) (unknown) [facility] (no value) (units unknown) (unknown) Result panel 11 (unknown) (no date) (unknown) [facility] (no value) (units unknown) (unknown) Result panel 12 (unknown) (no date) (unknown) [facility] (no value) (units unknown) (unknown) Result panel 13 (unknown) (no date) (unknown) [facility] (no value) (units unknown) (unknown) Result panel 14 (unknown) (no date) (unknown) [facility] (no value) (units unknown) (unknown) Result panel 15 (unknown) (no date) (unknown) [facility] (no value) (units unknown) (unknown) Result panel 16 (unknown) (no date) (unknown) [facility] (no value) (units unknown) (unknown) Result panel 17 (unknown) (no date) (unknown) [facility] (no value) (units unknown) (unknown) Result panel 18 (unknown) (no date) (unknown) [facility] (no value) (units unknown) (unknown) Result panel 19 (unknown) (no date) (unknown) [facility] (no value) (units unknown) (unknown) Result panel 20 (unknown) (no date) (unknown) [facility] (no value) (units unknown) (unknown) Result panel 21 (unknown) (no date) (unknown) [facility] (no value) (units unknown) (unknown) Result panel 22 (unknown) (no date) (unknown) [facility] (no value) (units unknown) (unknown) Result panel 23 (unknown) (no date) (unknown) [facility] (no value) (units unknown) (unknown) Result panel 24 (unknown) (no date) (unknown) [facility] (no value) (units unknown) (unknown) Result panel 25 (unknown) (no date) (unknown) [facility] (no value) (units unknown) (unknown) Result panel 26 (unknown) (no date) (unknown) [facility] (no value) (units unknown) (unknown) Result panel 27 (unknown) (no date) (unknown) [facility] (no value) (units unknown) (unknown) Result panel 28 (unknown) (no date) (unknown) [facility] (no value) (units unknown) (unknown) Result panel 29 (unknown) (no date) (unknown) [facility] (no value) (units unknown) (unknown) Result panel 30 (unknown) (no date) (unknown) [facility] (no value) (units unknown) (unknown) Result panel 31 (unknown) (no date) (unknown) [facility] (no value) (units unknown) (unknown) Result panel 32 (unknown) (no date) (unknown) [facility] (no value) (units unknown) (unknown) Result panel 33 (unknown) (no date) (unknown) [facility] (no value) (units unknown) (unknown) Result panel 34 (unknown) (no date) (unknown) [facility] (no value) (units unknown) (unknown) Result panel 35 (unknown) (no date) (unknown) [facility] (no value) (units unknown) (unknown) Result panel 36 (unknown) (no date) (unknown) [facility] (no value) (units unknown) (unknown) Result panel 37 (unknown) (no date) (unknown) [facility] (no value) (units unknown) (unknown) Result panel 38 (unknown) (no date) (unknown) [facility] (no value) (units unknown) (unknown) Result panel 39 (unknown) (no date) (unknown) [facility] (no value) (units unknown) (unknown) Result panel 40 (unknown) (no date) (unknown) [facility] (no value) (units unknown) (unknown) Result panel 41 (unknown) (no date) (unknown) [facility] (no value) (units unknown) (unknown) Result panel 42 (unknown) (no date) (unknown) [facility] (no value) (units unknown) (unknown) Result panel 43 (unknown) (no date) (unknown) [facility] (no value) (units unknown) (unknown) Result panel 44 (unknown) (no date) (unknown) [facility] (no value) (units unknown) (unknown) Result panel 45 (unknown) (no date) (unknown) [facility] (no value) (units unknown) (unknown) Result panel 46 (unknown) (no date) (unknown) [facility] (no value) (units unknown) (unknown) Result panel 47 (unknown) (no date) (unknown) [facility] (no value) (units unknown) (unknown) Result panel 48 (unknown) (no date) (unknown) [facility] (no value) (units unknown) (unknown) Result panel 49 (unknown) (no date) (unknown) [facility] (no value) (units unknown) (unknown) Result panel 50 (unknown) (no date) (unknown) [facility] (no value) (units unknown) (unknown) Result panel 51 (unknown) (no date) (unknown) [facility] (no value) (units unknown) (unknown) Result panel 52 (unknown) (no date) (unknown) [facility] (no value) (units unknown) (unknown) Result panel 53 (unknown) (no date) (unknown) [facility] (no value) (units unknown) (unknown) Result panel 54 (unknown) (no date) (unknown) [facility] (no value) (units unknown) (unknown) Result panel 55 (unknown) (no date) (unknown) [facility] (no value) (units unknown) (unknown) Result panel 56 (unknown) (no date) (unknown) [facility] (no value) (units unknown) (unknown) Result panel 57 (unknown) (no date) (unknown) [facility] (no value) (units unknown) (unknown) Result panel 58 (unknown) (no date) (unknown) [facility] (no value) (units unknown) (unknown) Result panel 59 (unknown) (no date) (unknown) [facility] (no value) (units unknown) (unknown) Result panel 60 (unknown) (no date) (unknown) [facility] (no value) (units unknown) (unknown) Result panel 61 (unknown) (no date) (unknown) [facility] (no value) (units unknown) (unknown) Result panel 62 (unknown) (no date) (unknown) [facility] (no value) (units unknown) (unknown) Result panel 63 (unknown) (no date) (unknown) [facility] (no value) (units unknown) (unknown) Result panel 64 (unknown) (no date) (unknown) [facility] (no value) (units unknown) (unknown) Result panel 65 (unknown) (no date) (unknown) [facility] (no value) (units unknown) (unknown) Result panel 66 (unknown) (no date) (unknown) [facility] (no value) (units unknown) (unknown) Result panel 67 (unknown) (no date) (unknown) [facility] (no value) (units unknown) (unknown) Result panel 68 (unknown) (no date) (unknown) [facility] (no value) (units unknown) (unknown) Result panel 69 (unknown) (no date) (unknown) [facility] (no value) (units unknown) (unknown) Result panel 70 (unknown) (no date) (unknown) [facility] (no value) (units unknown) (unknown) Result panel 71 (unknown) (no date) (unknown) [facility] (no value) (units unknown) (unknown) Result panel 72 (unknown) (no date) (unknown) [facility] (no value) (units unknown) (unknown) Result panel 73 (unknown) (no date) (unknown) [facility] (no value) (units unknown) (unknown) Result panel 74 (unknown) (no date) (unknown) [facility] (no value) (units unknown) (unknown) Result panel 75 (unknown) (no date) (unknown) [facility] (no value) (units unknown) (unknown) Result panel 76 (unknown) (no date) (unknown) [facility] (no value) (units unknown) (unknown) Result panel 77 (unknown) (no date) (unknown) [facility] (no value) (units unknown) (unknown) Result panel 78 (unknown) (no date) (unknown) [facility] (no value) (units unknown) (unknown) Result panel 79 (unknown) (no date) (unknown) [facility] (no value) (units unknown) (unknown) Result panel 80 (unknown) (no date) (unknown) [facility] (no value) (units unknown) (unknown) Result panel 81 (unknown) (no date) (unknown) [facility] (no value) (units unknown) (unknown) Result panel 82 (unknown) (no date) (unknown) [facility] (no value) (units unknown) (unknown) Result panel 83 (unknown) (no date) (unknown) [facility] (no value) (units unknown) (unknown) Result panel 84 (unknown) (no date) (unknown) [facility] (no value) (units unknown) (unknown) Result panel 85 (unknown) (no date) (unknown) [facility] (no value) (units unknown) (unknown) Result panel 86 (unknown) (no date) (unknown) [facility] (no value) (units unknown) (unknown) Result panel 87 (unknown) (no date) (unknown) [facility] (no value) (units unknown) (unknown) Result panel 88 (unknown) (no date) (unknown) [facility] (no value) (units unknown) (unknown) Result panel 89 (unknown) (no date) (unknown) [facility] (no value) (units unknown) (unknown) Result panel 90 (unknown) (no date) (unknown) [facility] (no value) (units unknown) (unknown) Result panel 91 (unknown) (no date) (unknown) [facility] (no value) (units unknown) (unknown) Result panel 92 (unknown) (no date) (unknown) [facility] (no value) (units unknown) (unknown) Result panel 93 (unknown) (no date) (unknown) [facility] (no value) (units unknown) (unknown) Result panel 94 (unknown) (no date) (unknown) [facility] (no value) (units unknown) (unknown) Result panel 95 (unknown) (no date) (unknown) [facility] (no value) (units unknown) (unknown) Result panel 96 (unknown) (no date) (unknown) [facility] (no value) (units unknown) (unknown) Result panel 97 (unknown) (no date) (unknown) [facility] (no value) (units unknown) (unknown) Result panel 98 (unknown) (no date) (unknown) [facility] (no value) (units unknown) (unknown) Result panel 99 (unknown) (no date) (unknown) [facility] (no value) (units unknown) (unknown) Result panel 100 (unknown) (no date) (unknown) (unknown) (no value) (units unknown) (unknown) (unknown) (no date) (unknown) (unknown) [id number] (units unknown) (unknown) (unknown) (no date) (unknown) (unknown) 12/04/22 (units unknown) (unknown) (unknown) (no date) (unknown) (unknown) [address] [place] [address] (units unknown) (unknown) (unknown) (no date) (unknown) (unknown) Accession Number: [id number] (units unknown) (unknown) (unknown) (no date) (unknown) (unknown) Accession Number: [id number] (units unknown) (unknown) (unknown) (no date) (unknown) (unknown) Age/Sex: 87 / M Date of Service: (units unknown) (unknown) (unknown) (no date) (unknown) (unknown) [place] [address] (units unknown) (unknown) (unknown) (no date) (unknown) (unknown) Approved by: Kayode Green M.D. on 12/04/2022 at 13:53 (units unknown) (unknown) (unknown) (no date) (unknown) (unknown) Approved by: Kayode Green M.D. on 12/04/2022 at 14:18 (units unknown) (unknown) (unknown) (no date) (unknown) (unknown) Brain: No midline shift. No intracranial masses or hemorrhage. Chavira-white (units unknown) (unknown) (unknown) (no date) (unknown) (unknown) COMPARISON: [facility], CT, CT LUMBAR SPINE WO [facility], 10/07/2022, 13:31. (units unknown) (unknown) (unknown) (no date) (unknown) (unknown) COMPARISON: None. (units unknown) (unknown) (unknown) (no date) (unknown) (unknown) CSF spaces: Basal cisterns are patent. No extra-axial fluid collections. 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 Two degenerative (units unknown) (unknown) (unknown) (no date) (unknown) (unknown) IMPRESSION: (units unknown) (unknown) (unknown) (no date) (unknown) (unknown) INDICATIONS: fall hit head on xeralto, hematoma (units unknown) (unknown) (unknown) (no date) (unknown) (unknown) INDICATIONS: lower back pain after fall (units unknown) (unknown) (unknown) (no date) (unknown) (unknown) Image quality: Excellent. (units unknown) (unknown) (unknown) (no date) (unknown) (unknown) [facility] (units unknown) (unknown) (unknown) (no date) (unknown) (unknown) L4-5 (units unknown) (unknown) (unknown) (no date) (unknown) (unknown) Loc: ED (units unknown) (unknown) (unknown) (no date) (unknown) (unknown) Moderate atrophy and chronic ischemic change acute hemorrhage or mass effect (units unknown) (unknown) (unknown) (no date) (unknown) (unknown) Multiple osteopenic compression fractures with retropulsed fracture fragment (units unknown) (unknown) (unknown) (no date) (unknown) (unknown) No change the prior exam 10/07/2022. (units unknown) (unknown) (unknown) (no date) (unknown) (unknown) Noncontrast 3 mm thick sections acquired from the T12 level to the sacrum. (units unknown) (unknown) (unknown) (no date) (unknown) (unknown) Noncontrast 4.5 mm thick angled axial sections acquired from the foramen magnum (units unknown) (unknown) (unknown) (no date) (unknown) (unknown) Ordering Provider: Natalie Hernandez D.O. (units unknown) (unknown) (unknown) (no date) (unknown) (unknown) PROCEDURE: CT HEAD/BRAIN WO CON (units unknown) (unknown) (unknown) (no date) (unknown) (unknown) PROCEDURE: CT LUMBAR SPINE WO CON (units unknown) (unknown) (unknown) (no date) (unknown) (unknown) Patient: Jonny Neely MR#: [id number] (units unknown) (unknown) (unknown) (no date) (unknown) (unknown) Procedure: CT head/brain wo con (units unknown) (unknown) (unknown) (no date) (unknown) (unknown) Procedure: CT lumbar spine wo con (units unknown) (unknown) (unknown) (no date) (unknown) (unknown) Retropulsed fracture fragment at L1 results in moderate central stenosis, also (units unknown) (unknown) (unknown) (no date) (unknown) (unknown) Right occipital scalp hematoma without skull fracture (units unknown) (unknown) (unknown) (no date) (unknown) (unknown) Sagittal and (units unknown) (unknown) (unknown) (no date) (unknown) (unknown) Signed (units unknown) (unknown) (unknown) (no date) (unknown) (unknown) Sinuses: Visualized sinuses and mastoids are clear. (units unknown) (unknown) (unknown) (no date) (unknown) (unknown) Skull and face: Calvarium and visualized facial bones are intact, without (units unknown) (unknown) (unknown) (no date) (unknown) (unknown) TECHNIQUE: (units unknown) (unknown) (unknown) (no date) (unknown) (unknown) Ventricles (units unknown) (unknown) (unknown) (no date) (unknown) (unknown) and moderate (units unknown) (unknown) (unknown) (no date) (unknown) (unknown) are normal in size and shape. (units unknown) (unknown) (unknown) (no date) (unknown) (unknown) associated (units unknown) (unknown) (unknown) (no date) (unknown) (unknown) calcification measures less than 5 mm, probably reflects prior granulomatous (units unknown) (unknown) (unknown) (no date) (unknown) (unknown) central stenosis at L1 (units unknown) (unknown) (unknown) (no date) (unknown) (unknown) coarse (units unknown) (unknown) (unknown) (no date) (unknown) (unknown) coronal reformats were constructed. For radiation dose reduction, the (units unknown) (unknown) (unknown) (no date) (unknown) (unknown) disease or (units unknown) (unknown) (unknown) (no date) (unknown) (unknown) exam. (units unknown) (unknown) (unknown) (no date) (unknown) (unknown) following was (units unknown) (unknown) (unknown) (no date) (unknown) (unknown) following (units unknown) (unknown) (unknown) (no date) (unknown) (unknown) interface is normal. Moderate cerebral and cerebellar volume loss with (units unknown) (unknown) (unknown) (no date) (unknown) (unknown) lesions. Right occipital scalp hematoma (units unknown) (unknown) (unknown) (no date) (unknown) (unknown) matter chronic ischemic change noted. Atherosclerotic calcification noted (units unknown) (unknown) (unknown) (no date) (unknown) (unknown) matter (units unknown) (unknown) (unknown) (no date) (unknown) (unknown) multifocal white (units unknown) (unknown) (unknown) (no date) (unknown) (unknown) old trauma (units unknown) (unknown) (unknown) (no date) (unknown) (unknown) patient (units unknown) (unknown) (unknown) (no date) (unknown) (unknown) present at L2-3 and L5-S1. Diffusely hypertrophic facet joints. (units unknown) (unknown) (unknown) (no date) (unknown) (unknown) size. (units unknown) (unknown) (unknown) (no date) (unknown) (unknown) spondylolisthesis (units unknown) (unknown) (unknown) (no date) (unknown) (unknown) stable. (units unknown) (unknown) (unknown) (no date) (unknown) (unknown) stenosis (units unknown) (unknown) (unknown) (no date) (unknown) (unknown) suspicious (units unknown) (unknown) (unknown) (no date) (unknown) (unknown) to the (units unknown) (unknown) (unknown) (no date) (unknown) (unknown) used: automated exposure control. (units unknown) (unknown) (unknown) (no date) (unknown) (unknown) vertex, with coronal and sagittal reformats. For radiation dose reduction, the (units unknown) (unknown) (unknown) (no date) (unknown) (unknown) was used: automated exposure control, adjustment of mA and/or kV according to (units unknown) (unknown) (unknown) (no date) (unknown) (unknown) with cavernous segments of both internal carotid arteries. Benign left frontal (units unknown) (unknown) Result panel 101 (unknown) (no date) (unknown) (unknown) (no value) (units unknown) (unknown) (unknown) (no date) (unknown) (unknown) (Lumigan) (units unknown) (unknown) (unknown) (no date) (unknown) (unknown) 0.4 mg PO BEDTIME (units unknown) (unknown) (unknown) (no date) (unknown) (unknown) 10/24/22 (units unknown) (unknown) (unknown) (no date) (unknown) (unknown) 12/04/22 13:16 (units unknown) (unknown) (unknown) (no date) (unknown) (unknown) 12/04/22 13:17 (units unknown) (unknown) (unknown) (no date) (unknown) (unknown) 12/04/22 (units unknown) (unknown) (unknown) (no date) (unknown) (unknown) [id number] (units unknown) (unknown) (unknown) (no date) (unknown) (unknown) 1 applic TOPICAL DAILY PRN (Reason: Dry Skin) (units unknown) (unknown) (unknown) (no date) (unknown) (unknown) 1 drp OPHTHALMIC (EYE) DAILY (units unknown) (unknown) (unknown) (no date) (unknown) (unknown) 1 tab PO DAILY (units unknown) (unknown) (unknown) (no date) (unknown) (unknown) 13:03 (units unknown) (unknown) (unknown) (no date) (unknown) (unknown) 150 mg PO BID (units unknown) (unknown) (unknown) (no date) (unknown) (unknown) 20 mg PO DAILY (units unknown) (unknown) (unknown) (no date) (unknown) (unknown) 20 mg PO QPM (units unknown) (unknown) (unknown) (no date) (unknown) (unknown) 240 mg PO DAILY (units unknown) (unknown) (unknown) (no date) (unknown) (unknown) 5 mg PO DAILY (units unknown) (unknown) (unknown) (no date) (unknown) (unknown) Age/Sex: 87 / M (units unknown) (unknown) (unknown) (no date) (unknown) (unknown) Allergies (units unknown) (unknown) (unknown) (no date) (unknown) (unknown) Allergy/AdvReac Type Severity Reaction Status Date / Time (units unknown) (unknown) (unknown) (no date) (unknown) (unknown) BPH (benign prostatic hyperplasia) (units unknown) (unknown) (unknown) (no date) (unknown) (unknown) Blood Pressure 112/68 12/04/22 13:03 (units unknown) (unknown) (unknown) (no date) (unknown) (unknown) Blood Pressure 112/68 (units unknown) (unknown) (unknown) (no date) (unknown) (unknown) CT head/brain wo con Stat (units unknown) (unknown) (unknown) (no date) (unknown) (unknown) CT lumbar spine wo con Stat (units unknown) (unknown) (unknown) (no date) (unknown) (unknown) CT scan - head: (units unknown) (unknown) (unknown) (no date) (unknown) (unknown) Chief Complaint: Back Pain/Injury (units unknown) (unknown) (unknown) (no date) (unknown) (unknown) Chronic anticoagulation (units unknown) (unknown) (unknown) (no date) (unknown) (unknown) Complex-Vitamin B12 tablet) (units unknown) (unknown) (unknown) (no date) (unknown) (unknown) Course (units unknown) (unknown) (unknown) (no date) (unknown) (unknown) : 1935 Acct:[id number] (units unknown) (unknown) (unknown) (no date) (unknown) (unknown) Date of Service: 12/04/22 (units unknown) (unknown) (unknown) (no date) (unknown) (unknown) Departure (units unknown) (unknown) (unknown) (no date) (unknown) (unknown) Discharge Plan (units unknown) (unknown) (unknown) (no date) (unknown) (unknown) ED Orders (units unknown) (unknown) (unknown) (no date) (unknown) (unknown) ER Physician: Natalie Hernandez D.O. (units unknown) (unknown) (unknown) (no date) (unknown) (unknown) Emergency Report (units unknown) (unknown) (unknown) (no date) (unknown) (unknown) Exam (units unknown) (unknown) (unknown) (no date) (unknown) (unknown) Family History (units unknown) (unknown) (unknown) (no date) (unknown) (unknown) Father No problems noted. (units unknown) (unknown) (unknown) (no date) (unknown) (unknown) General (units unknown) (unknown) (unknown) (no date) (unknown) (unknown) HPI - Back Pain/Injury (units unknown) (unknown) (unknown) (no date) (unknown) (unknown) History of permanent cardiac pacemaker placement (units unknown) (unknown) (unknown) (no date) (unknown) (unknown) Home Medications (units unknown) (unknown) (unknown) (no date) (unknown) (unknown) Imaging Data (units unknown) (unknown) (unknown) (no date) (unknown) (unknown) Initial Vital Signs (units unknown) (unknown) (unknown) (no date) (unknown) (unknown) Initial Vital Signs: (units unknown) (unknown) (unknown) (no date) (unknown) (unknown) [address] [address] (units unknown) (unknown) (unknown) (no date) (unknown) (unknown) Lumigan 0.01 % Drops (units unknown) (unknown) (unknown) (no date) (unknown) (unknown) MDM - Back Pain/Injury (units unknown) (unknown) (unknown) (no date) (unknown) (unknown) Medical History (units unknown) (unknown) (unknown) (no date) (unknown) (unknown) Medication Instructions Recorded Confirmed (units unknown) (unknown) (unknown) (no date) (unknown) (unknown) Mode of arrival: Ambulatory (units unknown) (unknown) (unknown) (no date) (unknown) (unknown) Moderate atrophy and chronic ischemic change. Moderate cerebral and Valium (units unknown) (unknown) (unknown) (no date) (unknown) (unknown) Mother Cancer (units unknown) (unknown) (unknown) (no date) (unknown) (unknown) No Action (units unknown) (unknown) (unknown) (no date) (unknown) (unknown) No Known Drug Allergies Allergy Verified 12/04/22 13:09 (units unknown) (unknown) (unknown) (no date) (unknown) (unknown) Ordered: (units unknown) (unknown) (unknown) (no date) (unknown) (unknown) Orders (units unknown) (unknown) (unknown) (no date) (unknown) (unknown) Osteoporosis (units unknown) (unknown) (unknown) (no date) (unknown) (unknown) Oxygen Delivery Method 12/04/22 13:03 (units unknown) (unknown) (unknown) (no date) (unknown) (unknown) Oxygen Delivery Method Room Air (units unknown) (unknown) (unknown) (no date) (unknown) (unknown) Patient History (units unknown) (unknown) (unknown) (no date) (unknown) (unknown) Patient: Jonny Neely MR#: [id number] (units unknown) (unknown) (unknown) (no date) (unknown) (unknown) Prescriptions: (units unknown) (unknown) (unknown) (no date) (unknown) (unknown) Pulse Oximetry 98 12/04/22 13:03 (units unknown) (unknown) (unknown) (no date) (unknown) (unknown) Pulse Oximetry 98 (units unknown) (unknown) (unknown) (no date) (unknown) (unknown) Pulse Rate 72 12/04/22 13:03 (units unknown) (unknown) (unknown) (no date) (unknown) (unknown) Pulse Rate 72 (units unknown) (unknown) (unknown) (no date) (unknown) (unknown) ROS Unobtainable: All systems reviewed + are unremarkable except as noted in HPI (units unknown) (unknown) (unknown) (no date) (unknown) (unknown) Radiologist's Impression: (units unknown) (unknown) (unknown) (no date) (unknown) (unknown) Related Data (units unknown) (unknown) (unknown) (no date) (unknown) (unknown) Respiratory Rate 16 12/04/22 13:03 (units unknown) (unknown) (unknown) (no date) (unknown) (unknown) Respiratory Rate 16 (units unknown) (unknown) (unknown) (no date) (unknown) (unknown) Review of Systems (units unknown) (unknown) (unknown) (no date) (unknown) (unknown) Rx Instructions: (units unknown) (unknown) (unknown) (no date) (unknown) (unknown) Signed By: (units unknown) (unknown) (unknown) (no date) (unknown) (unknown) Smoking Status: Never smoker (units unknown) (unknown) (unknown) (no date) (unknown) (unknown) Social History (units unknown) (unknown) (unknown) (no date) (unknown) (unknown) Source: patient, RN notes reviewed and old records reviewed (units unknown) (unknown) (unknown) (no date) (unknown) (unknown) Stated Complaint: Low back pain (units unknown) (unknown) (unknown) (no date) (unknown) (unknown) Substance Use Type: does not use and prescription drug (units unknown) (unknown) (unknown) (no date) (unknown) (unknown) Surgical History (units unknown) (unknown) (unknown) (no date) (unknown) (unknown) Temperature 97 F L 12/04/22 13:03 (units unknown) (unknown) (unknown) (no date) (unknown) (unknown) Temperature 97 F L (units unknown) (unknown) (unknown) (no date) (unknown) (unknown) Time Seen by Provider: 12/04/22 15:29 (units unknown) (unknown) (unknown) (no date) (unknown) (unknown) Vital Signs - 8 hr (units unknown) (unknown) (unknown) (no date) (unknown) (unknown) Vital Signs (units unknown) (unknown) (unknown) (no date) (unknown) (unknown) Vital signs: (units unknown) (unknown) (unknown) (no date) (unknown) (unknown) Xarelto 20 mg Tablet (units unknown) (unknown) (unknown) (no date) (unknown) (unknown) alcohol intake frequency: 0-2 drinks per day (units unknown) (unknown) (unknown) (no date) (unknown) (unknown) alcohol intake: current (units unknown) (unknown) (unknown) (no date) (unknown) (unknown) and below (units unknown) (unknown) (unknown) (no date) (unknown) (unknown) benign left frontal coarse calcification measures less than 5 mm probably (units unknown) (unknown) (unknown) (no date) (unknown) (unknown) bimatoprost 0.01 % eye drops 1 drp ophthalmic (eye) DAILY 10/24/22 10/24/22 (units unknown) (unknown) (unknown) (no date) (unknown) (unknown) bupropion HCl 150 mg Tablet Sustained-Release 12 Hr (units unknown) (unknown) (unknown) (no date) (unknown) (unknown) bupropion HCl 150 mg tablet,12 hr 150 mg PO BID 10/24/22 10/24/22 (units unknown) (unknown) (unknown) (no date) (unknown) (unknown) capsule,extended release 24 hr (units unknown) (unknown) (unknown) (no date) (unknown) (unknown) diltiazem HCl 240 mg 240 mg PO DAILY 10/24/22 10/24/22 (units unknown) (unknown) (unknown) (no date) (unknown) (unknown) diltiazem HCl 240 mg Capsule,Extended Release 24hr (units unknown) (unknown) (unknown) (no date) (unknown) (unknown) dorzolamide 22.3 mg-timolol 6.8 1 drp ophthalmic (eye) DAILY 10/24/22 10/24/22 (units unknown) (unknown) (unknown) (no date) (unknown) (unknown) dorzolamide-timolol 22.3-6.8 mg/mL Drops (units unknown) (unknown) (unknown) (no date) (unknown) (unknown) finasteride 5 mg Tablet (units unknown) (unknown) (unknown) (no date) (unknown) (unknown) finasteride 5 mg tablet 5 mg PO DAILY 10/24/22 10/24/22 (units unknown) (unknown) (unknown) (no date) (unknown) (unknown) hematoma. Bones and visualized facial bones are intact. (units unknown) (unknown) (unknown) (no date) (unknown) (unknown) household members: none and other (units unknown) (unknown) (unknown) (no date) (unknown) (unknown) mg/mL eye drops (units unknown) (unknown) (unknown) (no date) (unknown) (unknown) must administer with evening meal (units unknown) (unknown) (unknown) (no date) (unknown) (unknown) omeprazole 20 mg Capsule,Delayed Release(Dr/Ec) (units unknown) (unknown) (unknown) (no date) (unknown) (unknown) omeprazole 20 mg capsule,delayed 20 mg PO DAILY 10/24/22 10/24/22 (units unknown) (unknown) (unknown) (no date) (unknown) (unknown) reflects prior granulomatous disease or old trauma. Right scalp occipital (units unknown) (unknown) (unknown) (no date) (unknown) (unknown) release (units unknown) (unknown) (unknown) (no date) (unknown) (unknown) right eye (units unknown) (unknown) (unknown) (no date) (unknown) (unknown) rivaroxaban 20 mg tablet (Xarelto) 20 mg PO QPM 10/24/22 10/24/22 (units unknown) (unknown) (unknown) (no date) (unknown) (unknown) sustained-release (units unknown) (unknown) (unknown) (no date) (unknown) (unknown) tamsulosin 0.4 mg Capsule (units unknown) (unknown) (unknown) (no date) (unknown) (unknown) tamsulosin 0.4 mg capsule 0.4 mg PO BEDTIME 10/24/22 10/24/22 (units unknown) (unknown) (unknown) (no date) (unknown) (unknown) topical ointment (units unknown) (unknown) (unknown) (no date) (unknown) (unknown) triamcinolone acetonide 0.1 % 1 applic topical DAILY PRN Dry Skin 10/24/22 (units unknown) (unknown) (unknown) (no date) (unknown) (unknown) triamcinolone acetonide 0.1 % Ointment (units unknown) (unknown) (unknown) (no date) (unknown) (unknown) vitamin B complex (B 1 tab PO DAILY 10/24/22 10/24/22 (units unknown) (unknown) (unknown) (no date) (unknown) (unknown) vitamin B complex [B Complex-Vitamin B12] Tablet (units unknown) (unknown) (unknown) (no date) (unknown) (unknown) volume loss with multifocal white matter chronic ischemic change noted. Did (units unknown) (unknown) Result panel 102 (unknown) (no date) (unknown) (unknown) (no value) (units unknown) (unknown) (unknown) (no date) (unknown) (unknown) (Lumigan) (units unknown) (unknown) (unknown) (no date) (unknown) (unknown) 0.4 mg PO BEDTIME (units unknown) (unknown) (unknown) (no date) (unknown) (unknown) 10/24/22 (units unknown) (unknown) (unknown) (no date) (unknown) (unknown) 12/04/22 13:16 (units unknown) (unknown) (unknown) (no date) (unknown) (unknown) 12/04/22 13:17 (units unknown) (unknown) (unknown) (no date) (unknown) (unknown) 12/04/22 (units unknown) (unknown) (unknown) (no date) (unknown) (unknown) [id number] (units unknown) (unknown) (unknown) (no date) (unknown) (unknown) 1 applic TOPICAL DAILY PRN (Reason: Dry Skin) (units unknown) (unknown) (unknown) (no date) (unknown) (unknown) 1 drp OPHTHALMIC (EYE) DAILY (units unknown) (unknown) (unknown) (no date) (unknown) (unknown) 1 patch topical DAILY PRN (Reason: pain) Qty: 30 0RF (units unknown) (unknown) (unknown) (no date) (unknown) (unknown) 1 tab PO DAILY (units unknown) (unknown) (unknown) (no date) (unknown) (unknown) 13:03 12/04/22 (units unknown) (unknown) (unknown) (no date) (unknown) (unknown) 150 mg PO BID (units unknown) (unknown) (unknown) (no date) (unknown) (unknown) 15:28 12/04/22 (units unknown) (unknown) (unknown) (no date) (unknown) (unknown) 15:28 (units unknown) (unknown) (unknown) (no date) (unknown) (unknown) 15:30 12/04/22 (units unknown) (unknown) (unknown) (no date) (unknown) (unknown) 15:53 12/04/22 (units unknown) (unknown) (unknown) (no date) (unknown) (unknown) 15:53 (units unknown) (unknown) (unknown) (no date) (unknown) (unknown) 15:59 12/04/22 (units unknown) (unknown) (unknown) (no date) (unknown) (unknown) 16:00 (units unknown) (unknown) (unknown) (no date) (unknown) (unknown) 20 mg PO DAILY (units unknown) (unknown) (unknown) (no date) (unknown) (unknown) 20 mg PO QPM (units unknown) (unknown) (unknown) (no date) (unknown) (unknown) 240 mg PO DAILY (units unknown) (unknown) (unknown) (no date) (unknown) (unknown) 4 extremities moving, cranial nerves II through XII are intact, GCS is 15 (units unknown) (unknown) (unknown) (no date) (unknown) (unknown) 5 mg PO DAILY (units unknown) (unknown) (unknown) (no date) (unknown) (unknown) 50 mg PO Q6H PRN (Reason: pain) Qty: 10 0RF (units unknown) (unknown) (unknown) (no date) (unknown) (unknown) 87-year-old male with history of AFib on Xarelto, prior pacemaker placement for (units unknown) (unknown) (unknown) (no date) (unknown) (unknown) ABG/GI: Nontender, soft, normal bowel sounds, no distention, no organomegaly, (units unknown) (unknown) (unknown) (no date) (unknown) (unknown) Acetaminophen (Acetaminophen 325 Mg Tablet) 975 mg PO NOW ONE (units unknown) (unknown) (unknown) (no date) (unknown) (unknown) Activity Restrictions/Additio nal Instructions: (units unknown) (unknown) (unknown) (no date) (unknown) (unknown) Acute exacerbation of chronic low back pain (units unknown) (unknown) (unknown) (no date) (unknown) (unknown) Age greater or equal to 65 years: Yes (units unknown) (unknown) (unknown) (no date) (unknown) (unknown) Age/Sex: 87 / M (units unknown) (unknown) (unknown) (no date) (unknown) (unknown) Allergies (units unknown) (unknown) (unknown) (no date) (unknown) (unknown) Allergy/AdvReac Type Severity Reaction Status Date / Time (units unknown) (unknown) (unknown) (no date) (unknown) (unknown) Altered level of conciousness present: No (units unknown) (unknown) (unknown) (no date) (unknown) (unknown) BACK: No CVA tenderness, no vertebral tenderness, no step-off's, no crepitus (units unknown) (unknown) (unknown) (no date) (unknown) (unknown) BPH (benign prostatic hyperplasia) (units unknown) (unknown) (unknown) (no date) (unknown) (unknown) Blood Pressure 112/68 12/04/22 13:03 (units unknown) (unknown) (unknown) (no date) (unknown) (unknown) Blood Pressure 112/68 122/82 (units unknown) (unknown) (unknown) (no date) (unknown) (unknown) Blood Pressure 116/75 (units unknown) (unknown) (unknown) (no date) (unknown) (unknown) Blood Pressure 120/74 (units unknown) (unknown) (unknown) (no date) (unknown) (unknown) CT head/brain wo con Stat (units unknown) (unknown) (unknown) (no date) (unknown) (unknown) CT lumbar spine wo con Stat (units unknown) (unknown) (unknown) (no date) (unknown) (unknown) CT scan - head: (units unknown) (unknown) (unknown) (no date) (unknown) (unknown) CVS: Heart sounds are normal, no murmur noted, No JVD. (units unknown) (unknown) (unknown) (no date) (unknown) (unknown) [place] CT Head Rule (units unknown) (unknown) (unknown) (no date) (unknown) (unknown) Chief Complaint: Back Pain/Injury (units unknown) (unknown) (unknown) (no date) (unknown) (unknown) Chronic anticoagulation (units unknown) (unknown) (unknown) (no date) (unknown) (unknown) Clinical Impression: (units unknown) (unknown) (unknown) (no date) (unknown) (unknown) Complex-Vitamin B12 tablet) (units unknown) (unknown) (unknown) (no date) (unknown) (unknown) Compression fracture at L1, L2, L3 and L4 again noted unchanged from prior exam. (units unknown) (unknown) (unknown) (no date) (unknown) (unknown) Continue with your gabapentin 400 mg 3 times daily. 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 (units unknown) (unknown) (unknown) (no date) (unknown) (unknown) Departure (units unknown) (unknown) (unknown) (no date) (unknown) (unknown) Diphtheria/Tetanus/A cell Pertussis (Tet,Diph,Pertuss(Ac ell),Vac/Pf 0.5 Ml (units unknown) (unknown) (unknown) (no date) (unknown) (unknown) Discharge Plan (units unknown) (unknown) (unknown) (no date) (unknown) (unknown) Discontinued Medications (units unknown) (unknown) (unknown) (no date) (unknown) (unknown) ED Orders (units unknown) (unknown) (unknown) (no date) (unknown) (unknown) ENT: External inspection normal, trachea is midline, TM's are normal no (units unknown) (unknown) (unknown) (no date) (unknown) (unknown) ER Physician: Natalie Hernandez D.O. (units unknown) (unknown) (unknown) (no date) (unknown) (unknown) EXT: Atraumatic, hips are nontender, bilateral pedal edema. Patient has no pain (units unknown) (unknown) (unknown) (no date) (unknown) (unknown) EYES: PERRLA, EOMI (units unknown) (unknown) (unknown) (no date) (unknown) (unknown) Emergency Report (units unknown) (unknown) (unknown) (no date) (unknown) (unknown) Exam Narrative: (units unknown) (unknown) (unknown) (no date) (unknown) (unknown) Exam (units unknown) (unknown) (unknown) (no date) (unknown) (unknown) Family History (units unknown) (unknown) (unknown) (no date) (unknown) (unknown) Father No problems noted. (units unknown) (unknown) (unknown) (no date) (unknown) (unknown) Focal Neurologic deficit present: No (units unknown) (unknown) (unknown) (no date) (unknown) (unknown) GCS (units unknown) (unknown) (unknown) (no date) (unknown) (unknown) GEN: Patient appears in mild distress. (units unknown) (unknown) (unknown) (no date) (unknown) (unknown) Gabapentin (Gabapentin 100 Mg Capsule) 400 mg PO TID ONE (units unknown) (unknown) (unknown) (no date) (unknown) (unknown) General (units unknown) (unknown) (unknown) (no date) (unknown) (unknown) Baldwin coma scale eye opening: Spontaneous (units unknown) (unknown) (unknown) (no date) (unknown) (unknown) Baldwin coma scale motor response: Obey commands (units unknown) (unknown) (unknown) (no date) (unknown) (unknown) [place] coma scale total score: 15 (units unknown) (unknown) (unknown) (no date) (unknown) (unknown) Baldwin coma scale verbal response: Orientated (units unknown) (unknown) (unknown) (no date) (unknown) (unknown) HEAD: Patient has right occipital scalp hematoma, no raccoon/Loja sign. (units unknown) (unknown) (unknown) (no date) (unknown) (unknown) HPI - Back Pain/Injury (units unknown) (unknown) (unknown) (no date) (unknown) (unknown) HPI Narrative: (units unknown) (unknown) (unknown) (no date) (unknown) (unknown) He is unsure of his tetanus status. He denies headache, neck pain, no chest (units unknown) (unknown) (unknown) (no date) (unknown) (unknown) History of Present Illness (units unknown) (unknown) (unknown) (no date) (unknown) (unknown) History of permanent cardiac pacemaker placement (units unknown) (unknown) (unknown) (no date) (unknown) (unknown) Home Medications (units unknown) (unknown) (unknown) (no date) (unknown) (unknown) If these are inadequate for your pain management you can add 1-2 tablets (units unknown) (unknown) (unknown) (no date) (unknown) (unknown) Imaging Data (units unknown) (unknown) (unknown) (no date) (unknown) (unknown) Initial Vital Signs (units unknown) (unknown) (unknown) (no date) (unknown) (unknown) Initial Vital Signs: (units unknown) (unknown) (unknown) (no date) (unknown) (unknown) Instructions: DI for Low Back Pain (units unknown) (unknown) (unknown) (no date) (unknown) (unknown) Intoxication present: No (units unknown) (unknown) (unknown) (no date) (unknown) (unknown) [address] [address] (units unknown) (unknown) (unknown) (no date) (unknown) (unknown) Lidocaine (Lidocaine Patch 1 Each Adh..Patch) 1 each TOP NOW ONE (units unknown) (unknown) (unknown) (no date) (unknown) (unknown) Limitations: no limitations (units unknown) (unknown) (unknown) (no date) (unknown) (unknown) Lspine CT: (units unknown) (unknown) (unknown) (no date) (unknown) (unknown) Lumigan 0.01 % Drops (units unknown) (unknown) (unknown) (no date) (unknown) (unknown) MDM - Back Pain/Injury (units unknown) (unknown) (unknown) (no date) (unknown) (unknown) MDM Narrative (units unknown) (unknown) (unknown) (no date) (unknown) (unknown) Medical History (units unknown) (unknown) (unknown) (no date) (unknown) (unknown) Medical decision making narrative: (units unknown) (unknown) (unknown) (no date) (unknown) (unknown) Medication Instructions Recorded Confirmed (units unknown) (unknown) (unknown) (no date) (unknown) (unknown) Medication Instructions Recorded (units unknown) (unknown) (unknown) (no date) (unknown) (unknown) Midline spinal tenderness present: No (units unknown) (unknown) (unknown) (no date) (unknown) (unknown) Mode of arrival: Ambulatory (units unknown) (unknown) (unknown) (no date) (unknown) (unknown) Moderate atrophy and chronic ischemic change. Moderate cerebral and Valium (units unknown) (unknown) (unknown) (no date) (unknown) (unknown) Mother Cancer (units unknown) (unknown) (unknown) (no date) (unknown) (unknown) NECK: Nontender, painless range of motion, trachea midline (units unknown) (unknown) (unknown) (no date) (unknown) (unknown) NEURO: Oriented AOx3, neuro is grossly intact, sensation and motor is normal all (units unknown) (unknown) (unknown) (no date) (unknown) (unknown) Narrative (units unknown) (unknown) (unknown) (no date) (unknown) (unknown) Negative for Nexus criteria, there is no midline line tenderness, distracting (units unknown) (unknown) (unknown) (no date) (unknown) (unknown) New (units unknown) (unknown) (unknown) (no date) (unknown) (unknown) Nexus Score for C-Spine (units unknown) (unknown) (unknown) (no date) (unknown) (unknown) No Action (units unknown) (unknown) (unknown) (no date) (unknown) (unknown) No Known Drug Allergies Allergy Verified 12/04/22 13:09 (units unknown) (unknown) (unknown) (no date) (unknown) (unknown) Ordered: (units unknown) (unknown) (unknown) (no date) (unknown) (unknown) Orders (units unknown) (unknown) (unknown) (no date) (unknown) (unknown) Osteoporosis (units unknown) (unknown) (unknown) (no date) (unknown) (unknown) Oxygen Delivery Method 12/04/22 13:03 (units unknown) (unknown) (unknown) (no date) (unknown) (unknown) Oxygen Delivery Method Room Air (units unknown) (unknown) (unknown) (no date) (unknown) (unknown) Oxygen Delivery Method (units unknown) (unknown) (unknown) (no date) (unknown) (unknown) PSYCH: Normal mood and affect (units unknown) (unknown) (unknown) (no date) (unknown) (unknown) Patient Disposition: Home (units unknown) (unknown) (unknown) (no date) (unknown) (unknown) Patient History (units unknown) (unknown) (unknown) (no date) (unknown) (unknown) Patient has missed his most recent dose of medication. He does not have any (units unknown) (unknown) (unknown) (no date) (unknown) (unknown) Patient on blood thinners: Yes (units unknown) (unknown) (unknown) (no date) (unknown) (unknown) Patient: Jonny Neely MR#: [id number] (units unknown) (unknown) (unknown) (no date) (unknown) (unknown) Please follow-up with Dr. Rob and if needed Dr. Peterson regarding your back. (units unknown) (unknown) (unknown) (no date) (unknown) (unknown) Please return for rapidly worsening symptoms, new numbness, weakness loss of (units unknown) (unknown) (unknown) (no date) (unknown) (unknown) Prescription sent to [facility] in [place]. (units unknown) (unknown) (unknown) (no date) (unknown) (unknown) Prescriptions: (units unknown) (unknown) (unknown) (no date) (unknown) (unknown) Previous Rx's (units unknown) (unknown) (unknown) (no date) (unknown) (unknown) Pulse Oximetry 97 (units unknown) (unknown) (unknown) (no date) (unknown) (unknown) Pulse Oximetry 98 12/04/22 13:03 (units unknown) (unknown) (unknown) (no date) (unknown) (unknown) Pulse Oximetry 98 98 (units unknown) (unknown) (unknown) (no date) (unknown) (unknown) Pulse Oximetry 99 97 (units unknown) (unknown) (unknown) (no date) (unknown) (unknown) Pulse Rate 72 12/04/22 13:03 (units unknown) (unknown) (unknown) (no date) (unknown) (unknown) Pulse Rate 72 83 (units unknown) (unknown) (unknown) (no date) (unknown) (unknown) Pulse Rate 78 (units unknown) (unknown) (unknown) (no date) (unknown) (unknown) Pulse Rate 84 78 (units unknown) (unknown) (unknown) (no date) (unknown) (unknown) RESP: Chest is nontender and has symmetric movement, no ecchymosis, breath (units unknown) (unknown) (unknown) (no date) (unknown) (unknown) ROS Unobtainable: All systems reviewed + are unremarkable except as noted in HPI (units unknown) (unknown) (unknown) (no date) (unknown) (unknown) Radiologist's Impression: (units unknown) (unknown) (unknown) (no date) (unknown) (unknown) Related Data (units unknown) (unknown) (unknown) (no date) (unknown) (unknown) Respiratory Rate 16 12/04/22 13:03 (units unknown) (unknown) (unknown) (no date) (unknown) (unknown) Respiratory Rate 16 (units unknown) (unknown) (unknown) (no date) (unknown) (unknown) Respiratory Rate 18 (units unknown) (unknown) (unknown) (no date) (unknown) (unknown) Respiratory Rate (units unknown) (unknown) (unknown) (no date) (unknown) (unknown) 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 also (units unknown) (unknown) (unknown) (no date) (unknown) (unknown) Review of Systems (units unknown) (unknown) (unknown) (no date) (unknown) (unknown) Rx Instructions: (units unknown) (unknown) (unknown) (no date) (unknown) (unknown) SKIN: Intact, warm and dry, no crepitus and without decubitus (units unknown) (unknown) (unknown) (no date) (unknown) (unknown) Scores (units unknown) (unknown) (unknown) (no date) (unknown) (unknown) Signed By: (units unknown) (unknown) (unknown) (no date) (unknown) (unknown) Smoking Status: Never smoker (units unknown) (unknown) (unknown) (no date) (unknown) (unknown) Social History (units unknown) (unknown) (unknown) (no date) (unknown) (unknown) Source: patient, RN notes reviewed and old records reviewed (units unknown) (unknown) (unknown) (no date) (unknown) (unknown) Stand Alone Forms: Patient Portal/API (units unknown) (unknown) (unknown) (no date) (unknown) (unknown) Stated Complaint: Low back pain (units unknown) (unknown) (unknown) (no date) (unknown) (unknown) Stop: 12/04/22 16:14 (units unknown) (unknown) (unknown) (no date) (unknown) (unknown) Stop: 12/04/22 16:15 (units unknown) (unknown) (unknown) (no date) (unknown) (unknown) Stop: 12/04/22 16:16 (units unknown) (unknown) (unknown) (no date) (unknown) (unknown) Substance Use Type: does not use and prescription drug (units unknown) (unknown) (unknown) (no date) (unknown) (unknown) Surgical History (units unknown) (unknown) (unknown) (no date) (unknown) (unknown) Syringe) 0.5 ml IM .ONCE ONE (units unknown) (unknown) (unknown) (no date) (unknown) (unknown) Temperature 97 F L 12/04/22 13:03 (units unknown) (unknown) (unknown) (no date) (unknown) (unknown) Temperature 97 F L (units unknown) (unknown) (unknown) (no date) (unknown) (unknown) Temperature (units unknown) (unknown) (unknown) (no date) (unknown) (unknown) This is an 87-year-old male with acute on chronic lumbar back pain with no (units unknown) (unknown) (unknown) (no date) (unknown) (unknown) Time Seen by Provider: 12/04/22 15:29 (units unknown) (unknown) (unknown) (no date) (unknown) (unknown) Tramadol HCl (Tramadol 50 Mg Tablet) 50 mg PO NOW ONE (units unknown) (unknown) (unknown) (no date) (unknown) (unknown) Vital Signs - 8 hr (units unknown) (unknown) (unknown) (no date) (unknown) (unknown) Vital Signs (units unknown) (unknown) (unknown) (no date) (unknown) (unknown) Vital signs: (units unknown) (unknown) (unknown) (no date) (unknown) (unknown) Xarelto 20 mg Tablet (units unknown) (unknown) (unknown) (no date) (unknown) (unknown) You can use lidocaine patch to the affected area on her back as needed. (units unknown) (unknown) (unknown) (no date) (unknown) (unknown) You may increase your Tylenol to a 1000 mg every 6 hours as needed for pain. (units unknown) (unknown) (unknown) (no date) (unknown) (unknown) abrasion on the left side his neck with scabbing that is approximately 1 x 2 cm (units unknown) (unknown) (unknown) (no date) (unknown) (unknown) acute red flag symptoms. His imaging is stable and with no acute neurologic (units unknown) (unknown) (unknown) (no date) (unknown) (unknown) airway is normal and with normal occlusion, No bony tenderness, patient has not (units unknown) (unknown) (unknown) (no date) (unknown) (unknown) alcohol intake frequency: 0-2 drinks per day (units unknown) (unknown) (unknown) (no date) (unknown) (unknown) alcohol intake: current (units unknown) (unknown) (unknown) (no date) (unknown) (unknown) also caregivers part-time state that oxycodone makes him quite altered. We (units unknown) (unknown) (unknown) (no date) (unknown) (unknown) and below (units unknown) (unknown) (unknown) (no date) (unknown) (unknown) any bladder or fecal incontinence. No other GI or urinary symptoms. He (units unknown) (unknown) (unknown) (no date) (unknown) (unknown) at home since his fall he does normally use a walker encouraged to continue (units unknown) (unknown) (unknown) (no date) (unknown) (unknown) benign left frontal coarse calcification measures less than 5 mm probably (units unknown) (unknown) (unknown) (no date) (unknown) (unknown) bimatoprost 0.01 % eye drops 1 drp ophthalmic (eye) DAILY 10/24/22 10/24/22 (units unknown) (unknown) (unknown) (no date) (unknown) (unknown) bupropion HCl 150 mg Tablet Sustained-Release 12 Hr (units unknown) (unknown) (unknown) (no date) (unknown) (unknown) bupropion HCl 150 mg tablet,12 hr 150 mg PO BID 10/24/22 10/24/22 (units unknown) (unknown) (unknown) (no date) (unknown) (unknown) capsule,extended release 24 hr (units unknown) (unknown) (unknown) (no date) (unknown) (unknown) changes is not felt to require emergent MRI. Patient has been able to ambulate (units unknown) (unknown) (unknown) (no date) (unknown) (unknown) compression fractures and retropulsed fragment at L1. Patient had mechanical (units unknown) (unknown) (unknown) (no date) (unknown) (unknown) daily and gabapentin and had injection in his lower back in the past week. (units unknown) (unknown) (unknown) (no date) (unknown) (unknown) daily for his chronic back pain. States his last dose was at 8:00 a.m. he was (units unknown) (unknown) (unknown) (no date) (unknown) (unknown) daily until stools are soft and regular. (units unknown) (unknown) (unknown) (no date) (unknown) (unknown) department. He follows with Dr. Peterson for spinal surgery and Dr. Rob for (units unknown) (unknown) (unknown) (no date) (unknown) (unknown) diltiazem HCl 240 mg 240 mg PO DAILY 10/24/22 10/24/22 (units unknown) (unknown) (unknown) (no date) (unknown) (unknown) diltiazem HCl 240 mg Capsule,Extended Release 24hr (units unknown) (unknown) (unknown) (no date) (unknown) (unknown) discussed narcotics only sparingly as this can cause mental status changes. We (units unknown) (unknown) (unknown) (no date) (unknown) (unknown) does not appreciate weakness. Been able to ambulate since the fall. States (units unknown) (unknown) (unknown) (no date) (unknown) (unknown) does not radiate down his legs. No paresthesias, no numbness or tingling. He (units unknown) (unknown) (unknown) (no date) (unknown) (unknown) dorzolamide 22.3 mg-timolol 6.8 1 drp ophthalmic (eye) DAILY 10/24/22 10/24/22 (units unknown) (unknown) (unknown) (no date) (unknown) (unknown) dorzolamide-timolol 22.3-6.8 mg/mL Drops (units unknown) (unknown) (unknown) (no date) (unknown) (unknown) due to have a dose at 2:00 p.m. but missed it 2nd being in the emergency (units unknown) (unknown) (unknown) (no date) (unknown) (unknown) ea (units unknown) (unknown) (unknown) (no date) (unknown) (unknown) facet joints. No change from prior exam 10/07/2022. (units unknown) (unknown) (unknown) (no date) (unknown) (unknown) fall occurred yesterday. He uses a walker normally at home. He did strike his (units unknown) (unknown) (unknown) (no date) (unknown) (unknown) finasteride 5 mg Tablet (units unknown) (unknown) (unknown) (no date) (unknown) (unknown) finasteride 5 mg tablet 5 mg PO DAILY 10/24/22 10/24/22 (units unknown) (unknown) (unknown) (no date) (unknown) (unknown) fractures with retropulsed fragment. Patient states he actually had injection (units unknown) (unknown) (unknown) (no date) (unknown) (unknown) gabapentin. Follow up with Dr. Rob for recheck. We will try a short course of (units unknown) (unknown) (unknown) (no date) (unknown) (unknown) ground level fall has had increased pain. He is normally on Tylenol 3 times (units unknown) (unknown) (unknown) (no date) (unknown) (unknown) head. He is on Xarelto. Does have an abrasion on the left side of his neck. (units unknown) (unknown) (unknown) (no date) (unknown) (unknown) hematoma. Bones and visualized facial bones are intact. (units unknown) (unknown) (unknown) (no date) (unknown) (unknown) hemotypanum, Nares are clear, no septal hematoma, no dental or oral injury, (units unknown) (unknown) (unknown) (no date) (unknown) (unknown) household members: none and other (units unknown) (unknown) (unknown) (no date) (unknown) (unknown) in his lower back. He has chronic back pain with known lumbar compression (units unknown) (unknown) (unknown) (no date) (unknown) (unknown) in length. (units unknown) (unknown) (unknown) (no date) (unknown) (unknown) in the last week which is typically helpful to his back by Dr. Rob. Patient (units unknown) (unknown) (unknown) (no date) (unknown) (unknown) injections, intervention. Patient states he was told he told he could (units unknown) (unknown) (unknown) (no date) (unknown) (unknown) injury, altered mental status, neuro deficit, recent EtOH. (units unknown) (unknown) (unknown) (no date) (unknown) (unknown) leave on most painful area for up to 12 hrs (units unknown) (unknown) (unknown) (no date) (unknown) (unknown) level fall. Patient states tripped and fell. He states he has increased pain (units unknown) (unknown) (unknown) (no date) (unknown) (unknown) lidocaine 5 % adhesive patch,medicated (units unknown) (unknown) (unknown) (no date) (unknown) (unknown) lidocaine 5 % topical patch 1 patch topical DAILY PRN pain #30 12/04/22 (units unknown) (unknown) (unknown) (no date) (unknown) (unknown) lift or move her leg or other new or concerning changes. (units unknown) (unknown) (unknown) (no date) (unknown) (unknown) medication will make you constipated please take a stool softener once to twice (units unknown) (unknown) (unknown) (no date) (unknown) (unknown) mg/mL eye drops (units unknown) (unknown) (unknown) (no date) (unknown) (unknown) must administer with evening meal (units unknown) (unknown) (unknown) (no date) (unknown) (unknown) normally takes a 1000 mg of Tylenol 3 times daily and gabapentin 400 mg 3 times (units unknown) (unknown) (unknown) (no date) (unknown) (unknown) omeprazole 20 mg Capsule,Delayed Release(Dr/Ec) (units unknown) (unknown) (unknown) (no date) (unknown) (unknown) omeprazole 20 mg capsule,delayed 20 mg PO DAILY 10/24/22 10/24/22 (units unknown) (unknown) (unknown) (no date) (unknown) (unknown) pain or shortness of breath. He complains only of lower lumbar pain. He denies (units unknown) (unknown) (unknown) (no date) (unknown) (unknown) pelvic rock is negative (units unknown) (unknown) (unknown) (no date) (unknown) (unknown) perform hazardous activities or make any major decisions while taking it. This (units unknown) (unknown) (unknown) (no date) (unknown) (unknown) potentially have a another injection this upcoming week. (units unknown) (unknown) (unknown) (no date) (unknown) (unknown) reflects prior granulomatous disease or old trauma. Right scalp occipital (units unknown) (unknown) (unknown) (no date) (unknown) (unknown) release (units unknown) (unknown) (unknown) (no date) (unknown) (unknown) right eye (units unknown) (unknown) (unknown) (no date) (unknown) (unknown) rivaroxaban 20 mg tablet (Xarelto) 20 mg PO QPM 10/24/22 10/24/22 (units unknown) (unknown) (unknown) (no date) (unknown) (unknown) sensation, loss of bowel or bladder control, urinary retention, inability to (units unknown) (unknown) (unknown) (no date) (unknown) (unknown) sick sinus syndrome, history of ventricular tachycardia who presents with ground (units unknown) (unknown) (unknown) (no date) (unknown) (unknown) sounds are normal no crackles, wheezes or rales (units unknown) (unknown) (unknown) (no date) (unknown) (unknown) spondylolisthesis present at L2-L3 and L5 through S1. Diffusely hypertrophic (units unknown) (unknown) (unknown) (no date) (unknown) (unknown) stable. Generalized decreased osseous mineralization present. Two degenerative (units unknown) (unknown) (unknown) (no date) (unknown) (unknown) states pain is localized to the same area. A little bit more on the right. 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 (units unknown) (unknown) (unknown) (no date) (unknown) (unknown) sustained-release (units unknown) (unknown) (unknown) (no date) (unknown) (unknown) tamsulosin 0.4 mg Capsule (units unknown) (unknown) (unknown) (no date) (unknown) (unknown) tamsulosin 0.4 mg capsule 0.4 mg PO BEDTIME 10/24/22 10/24/22 (units unknown) (unknown) (unknown) (no date) (unknown) (unknown) this. Plan increase his Tylenol to a 1000 mg 4 times daily, continue his (units unknown) (unknown) (unknown) (no date) (unknown) (unknown) topical ointment (units unknown) (unknown) (unknown) (no date) (unknown) (unknown) tramadol 50 mg tablet 50 mg PO Q6H PRN pain #10 tabs 12/04/22 (units unknown) (unknown) (unknown) (no date) (unknown) (unknown) tramadol 50 mg tablet (units unknown) (unknown) (unknown) (no date) (unknown) (unknown) tramadol every 6 hours. This medication can make you sleepy do not drive, (units unknown) (unknown) (unknown) (no date) (unknown) (unknown) tramadol to see if this is helpful. Patient and friends at bedside who were (units unknown) (unknown) (unknown) (no date) (unknown) (unknown) triamcinolone acetonide 0.1 % 1 applic topical DAILY PRN Dry Skin 10/24/22 (units unknown) (unknown) (unknown) (no date) (unknown) (unknown) triamcinolone acetonide 0.1 % Ointment (units unknown) (unknown) (unknown) (no date) (unknown) (unknown) upper and lower extremities. No saddle anesthesia. (units unknown) (unknown) (unknown) (no date) (unknown) (unknown) vitamin B complex (B 1 tab PO DAILY 10/24/22 10/24/22 (units unknown) (unknown) (unknown) (no date) (unknown) (unknown) vitamin B complex [B Complex-Vitamin B12] Tablet (units unknown) (unknown) (unknown) (no date) (unknown) (unknown) volume loss with multifocal white matter chronic ischemic change noted. Did (units unknown) (unknown) (unknown) (no date) (unknown) (unknown) will also try lidocaine patch to see if this is helpful. (units unknown) (unknown) (unknown) (no date) (unknown) (unknown) with leg lift bilaterally. 5/5 muscle strength. Sensation and touch bilateral (units unknown) (unknown) Result panel 103 (unknown) (no date) (unknown) (unknown) (no value) (units unknown) (unknown) (unknown) (no date) (unknown) (unknown) (Lumigan) (units unknown) (unknown) (unknown) (no date) (unknown) (unknown) 0.4 mg PO BEDTIME (units unknown) (unknown) (unknown) (no date) (unknown) (unknown) 10/24/22 (units unknown) (unknown) (unknown) (no date) (unknown) (unknown) 12/04/22 13:16 (units unknown) (unknown) (unknown) (no date) (unknown) (unknown) 12/04/22 13:17 (units unknown) (unknown) (unknown) (no date) (unknown) (unknown) 12/04/22 (units unknown) (unknown) (unknown) (no date) (unknown) (unknown) [id number] (units unknown) (unknown) (unknown) (no date) (unknown) (unknown) 1 applic TOPICAL DAILY PRN (Reason: Dry Skin) (units unknown) (unknown) (unknown) (no date) (unknown) (unknown) 1 drp OPHTHALMIC (EYE) DAILY (units unknown) (unknown) (unknown) (no date) (unknown) (unknown) 1 tab PO DAILY (units unknown) (unknown) (unknown) (no date) (unknown) (unknown) 13:03 12/04/22 (units unknown) (unknown) (unknown) (no date) (unknown) (unknown) 150 mg PO BID (units unknown) (unknown) (unknown) (no date) (unknown) (unknown) 15:28 12/04/22 (units unknown) (unknown) (unknown) (no date) (unknown) (unknown) 15:28 (units unknown) (unknown) (unknown) (no date) (unknown) (unknown) 15:30 12/04/22 (units unknown) (unknown) (unknown) (no date) (unknown) (unknown) 15:53 12/04/22 (units unknown) (unknown) (unknown) (no date) (unknown) (unknown) 15:53 (units unknown) (unknown) (unknown) (no date) (unknown) (unknown) 15:59 12/04/22 (units unknown) (unknown) (unknown) (no date) (unknown) (unknown) 16:00 (units unknown) (unknown) (unknown) (no date) (unknown) (unknown) 20 mg PO DAILY (units unknown) (unknown) (unknown) (no date) (unknown) (unknown) 20 mg PO QPM (units unknown) (unknown) (unknown) (no date) (unknown) (unknown) 240 mg PO DAILY (units unknown) (unknown) (unknown) (no date) (unknown) (unknown) 4 extremities moving, cranial nerves II through XII are intact, GCS is 15 (units unknown) (unknown) (unknown) (no date) (unknown) (unknown) 5 mg PO DAILY (units unknown) (unknown) (unknown) (no date) (unknown) (unknown) 87-year-old male with history of AFib on Xarelto, prior pacemaker placement for (units unknown) (unknown) (unknown) (no date) (unknown) (unknown) ABG/GI: Nontender, soft, normal bowel sounds, no distention, no organomegaly, (units unknown) (unknown) (unknown) (no date) (unknown) (unknown) Acetaminophen (Acetaminophen 325 Mg Tablet) 975 mg PO NOW ONE (units unknown) (unknown) (unknown) (no date) (unknown) (unknown) Activity Restrictions/Additio nal Instructions: (units unknown) (unknown) (unknown) (no date) (unknown) (unknown) Acute exacerbation of chronic low back pain (units unknown) (unknown) (unknown) (no date) (unknown) (unknown) Age greater or equal to 65 years: Yes (units unknown) (unknown) (unknown) (no date) (unknown) (unknown) Age/Sex: 87 / M (units unknown) (unknown) (unknown) (no date) (unknown) (unknown) Allergies (units unknown) (unknown) (unknown) (no date) (unknown) (unknown) Allergy/AdvReac Type Severity Reaction Status Date / Time (units unknown) (unknown) (unknown) (no date) (unknown) (unknown) Altered level of conciousness present: No (units unknown) (unknown) (unknown) (no date) (unknown) (unknown) BACK: No CVA tenderness, no vertebral tenderness, no step-off's, no crepitus (units unknown) (unknown) (unknown) (no date) (unknown) (unknown) BPH (benign prostatic hyperplasia) (units unknown) (unknown) (unknown) (no date) (unknown) (unknown) Blood Pressure 112/68 12/04/22 13:03 (units unknown) (unknown) (unknown) (no date) (unknown) (unknown) Blood Pressure 112/68 122/82 (units unknown) (unknown) (unknown) (no date) (unknown) (unknown) Blood Pressure 116/75 (units unknown) (unknown) (unknown) (no date) (unknown) (unknown) Blood Pressure 120/74 (units unknown) (unknown) (unknown) (no date) (unknown) (unknown) CT head/brain wo con Stat (units unknown) (unknown) (unknown) (no date) (unknown) (unknown) CT lumbar spine wo con Stat (units unknown) (unknown) (unknown) (no date) (unknown) (unknown) CT scan - head: (units unknown) (unknown) (unknown) (no date) (unknown) (unknown) CVS: Heart sounds are normal, no murmur noted, No JVD. (units unknown) (unknown) (unknown) (no date) (unknown) (unknown) [place] CT Head Rule (units unknown) (unknown) (unknown) (no date) (unknown) (unknown) Chief Complaint: Back Pain/Injury (units unknown) (unknown) (unknown) (no date) (unknown) (unknown) Chronic anticoagulation (units unknown) (unknown) (unknown) (no date) (unknown) (unknown) Clinical Impression: (units unknown) (unknown) (unknown) (no date) (unknown) (unknown) Complex-Vitamin B12 tablet) (units unknown) (unknown) (unknown) (no date) (unknown) (unknown) Compression fracture at L1, L2, L3 and L4 again noted unchanged from prior exam. (units unknown) (unknown) (unknown) (no date) (unknown) (unknown) Continue with your gabapentin 400 mg 3 times daily. 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 (units unknown) (unknown) (unknown) (no date) (unknown) (unknown) Departure (units unknown) (unknown) (unknown) (no date) (unknown) (unknown) Diphtheria/Tetanus/A cell Pertussis (Tet,Diph,Pertuss(Ac ell),Vac/Pf 0.5 Ml (units unknown) (unknown) (unknown) (no date) (unknown) (unknown) Discharge Plan (units unknown) (unknown) (unknown) (no date) (unknown) (unknown) Discontinued Medications (units unknown) (unknown) (unknown) (no date) (unknown) (unknown) ED Orders (units unknown) (unknown) (unknown) (no date) (unknown) (unknown) ENT: External inspection normal, trachea is midline, TM's are normal no (units unknown) (unknown) (unknown) (no date) (unknown) (unknown) ER Physician: Natalie Hernandez D.O. (units unknown) (unknown) (unknown) (no date) (unknown) (unknown) EXT: Atraumatic, hips are nontender, bilateral pedal edema. Patient has no pain (units unknown) (unknown) (unknown) (no date) (unknown) (unknown) EYES: PERRLA, EOMI (units unknown) (unknown) (unknown) (no date) (unknown) (unknown) Emergency Report (units unknown) (unknown) (unknown) (no date) (unknown) (unknown) Exam Narrative: (units unknown) (unknown) (unknown) (no date) (unknown) (unknown) Exam (units unknown) (unknown) (unknown) (no date) (unknown) (unknown) Family History (units unknown) (unknown) (unknown) (no date) (unknown) (unknown) Father No problems noted. (units unknown) (unknown) (unknown) (no date) (unknown) (unknown) Focal Neurologic deficit present: No (units unknown) (unknown) (unknown) (no date) (unknown) (unknown) GCS (units unknown) (unknown) (unknown) (no date) (unknown) (unknown) GEN: Patient appears in mild distress. (units unknown) (unknown) (unknown) (no date) (unknown) (unknown) Gabapentin (Gabapentin 100 Mg Capsule) 400 mg PO TID ONE (units unknown) (unknown) (unknown) (no date) (unknown) (unknown) General (units unknown) (unknown) (unknown) (no date) (unknown) (unknown) Baldwin coma scale eye opening: Spontaneous (units unknown) (unknown) (unknown) (no date) (unknown) (unknown) [place] coma scale motor response: Obey commands (units unknown) (unknown) (unknown) (no date) (unknown) (unknown) [place] coma scale total score: 15 (units unknown) (unknown) (unknown) (no date) (unknown) (unknown) [place] coma scale verbal response: Orientated (units unknown) (unknown) (unknown) (no date) (unknown) (unknown) HEAD: Patient has right occipital scalp hematoma, no raccoon/Loja sign. (units unknown) (unknown) (unknown) (no date) (unknown) (unknown) HPI - Back Pain/Injury (units unknown) (unknown) (unknown) (no date) (unknown) (unknown) HPI Narrative: (units unknown) (unknown) (unknown) (no date) (unknown) (unknown) He is unsure of his tetanus status. He denies headache, neck pain, no chest (units unknown) (unknown) (unknown) (no date) (unknown) (unknown) History of Present Illness (units unknown) (unknown) (unknown) (no date) (unknown) (unknown) History of permanent cardiac pacemaker placement (units unknown) (unknown) (unknown) (no date) (unknown) (unknown) Home Medications (units unknown) (unknown) (unknown) (no date) (unknown) (unknown) If these are inadequate for your pain management you can add 1-2 tablets (units unknown) (unknown) (unknown) (no date) (unknown) (unknown) Imaging Data (units unknown) (unknown) (unknown) (no date) (unknown) (unknown) Initial Vital Signs (units unknown) (unknown) (unknown) (no date) (unknown) (unknown) Initial Vital Signs: (units unknown) (unknown) (unknown) (no date) (unknown) (unknown) Instructions: DI for Low Back Pain (units unknown) (unknown) (unknown) (no date) (unknown) (unknown) Intoxication present: No (units unknown) (unknown) (unknown) (no date) (unknown) (unknown) [address] [address] (units unknown) (unknown) (unknown) (no date) (unknown) (unknown) Lidocaine (Lidocaine Patch 1 Each Adh..Patch) 1 each TOP NOW ONE (units unknown) (unknown) (unknown) (no date) (unknown) (unknown) Limitations: no limitations (units unknown) (unknown) (unknown) (no date) (unknown) (unknown) Lspine CT: (units unknown) (unknown) (unknown) (no date) (unknown) (unknown) Lumigan 0.01 % Drops (units unknown) (unknown) (unknown) (no date) (unknown) (unknown) MDM - Back Pain/Injury (units unknown) (unknown) (unknown) (no date) (unknown) (unknown) MDM Narrative (units unknown) (unknown) (unknown) (no date) (unknown) (unknown) Medical History (units unknown) (unknown) (unknown) (no date) (unknown) (unknown) Medical decision making narrative: (units unknown) (unknown) (unknown) (no date) (unknown) (unknown) Medication Instructions Recorded Confirmed (units unknown) (unknown) (unknown) (no date) (unknown) (unknown) Midline spinal tenderness present: No (units unknown) (unknown) (unknown) (no date) (unknown) (unknown) Mode of arrival: Ambulatory (units unknown) (unknown) (unknown) (no date) (unknown) (unknown) Moderate atrophy and chronic ischemic change. Moderate cerebral and Valium (units unknown) (unknown) (unknown) (no date) (unknown) (unknown) Mother Cancer (units unknown) (unknown) (unknown) (no date) (unknown) (unknown) NECK: Nontender, painless range of motion, trachea midline (units unknown) (unknown) (unknown) (no date) (unknown) (unknown) NEURO: Oriented AOx3, neuro is grossly intact, sensation and motor is normal all (units unknown) (unknown) (unknown) (no date) (unknown) (unknown) Narrative (units unknown) (unknown) (unknown) (no date) (unknown) (unknown) Negative for Nexus criteria, there is no midline line tenderness, distracting (units unknown) (unknown) (unknown) (no date) (unknown) (unknown) Nexus Score for C-Spine (units unknown) (unknown) (unknown) (no date) (unknown) (unknown) No Action (units unknown) (unknown) (unknown) (no date) (unknown) (unknown) No Known Drug Allergies Allergy Verified 12/04/22 13:09 (units unknown) (unknown) (unknown) (no date) (unknown) (unknown) Ordered: (units unknown) (unknown) (unknown) (no date) (unknown) (unknown) Orders (units unknown) (unknown) (unknown) (no date) (unknown) (unknown) Osteoporosis (units unknown) (unknown) (unknown) (no date) (unknown) (unknown) Oxygen Delivery Method 12/04/22 13:03 (units unknown) (unknown) (unknown) (no date) (unknown) (unknown) Oxygen Delivery Method Room Air (units unknown) (unknown) (unknown) (no date) (unknown) (unknown) Oxygen Delivery Method (units unknown) (unknown) (unknown) (no date) (unknown) (unknown) PSYCH: Normal mood and affect (units unknown) (unknown) (unknown) (no date) (unknown) (unknown) Patient Disposition: Home (units unknown) (unknown) (unknown) (no date) (unknown) (unknown) Patient History (units unknown) (unknown) (unknown) (no date) (unknown) (unknown) Patient has missed his most recent dose of medication. He does not have any (units unknown) (unknown) (unknown) (no date) (unknown) (unknown) Patient on blood thinners: Yes (units unknown) (unknown) (unknown) (no date) (unknown) (unknown) Patient: Jonny Neely MR#: [id number] (units unknown) (unknown) (unknown) (no date) (unknown) (unknown) Please follow-up with Dr. Rob and if needed Dr. Peterson regarding your back. (units unknown) (unknown) (unknown) (no date) (unknown) (unknown) Please return for rapidly worsening symptoms, new numbness, weakness loss of (units unknown) (unknown) (unknown) (no date) (unknown) (unknown) Prescription sent to [facility]. (units unknown) (unknown) (unknown) (no date) (unknown) (unknown) Prescriptions: (units unknown) (unknown) (unknown) (no date) (unknown) (unknown) Pulse Oximetry 97 (units unknown) (unknown) (unknown) (no date) (unknown) (unknown) Pulse Oximetry 98 12/04/22 13:03 (units unknown) (unknown) (unknown) (no date) (unknown) (unknown) Pulse Oximetry 98 98 (units unknown) (unknown) (unknown) (no date) (unknown) (unknown) Pulse Oximetry 99 97 (units unknown) (unknown) (unknown) (no date) (unknown) (unknown) Pulse Rate 72 12/04/22 13:03 (units unknown) (unknown) (unknown) (no date) (unknown) (unknown) Pulse Rate 72 83 (units unknown) (unknown) (unknown) (no date) (unknown) (unknown) Pulse Rate 78 (units unknown) (unknown) (unknown) (no date) (unknown) (unknown) Pulse Rate 84 78 (units unknown) (unknown) (unknown) (no date) (unknown) (unknown) RESP: Chest is nontender and has symmetric movement, no ecchymosis, breath (units unknown) (unknown) (unknown) (no date) (unknown) (unknown) ROS Unobtainable: All systems reviewed + are unremarkable except as noted in HPI (units unknown) (unknown) (unknown) (no date) (unknown) (unknown) Radiologist's Impression: (units unknown) (unknown) (unknown) (no date) (unknown) (unknown) Related Data (units unknown) (unknown) (unknown) (no date) (unknown) (unknown) Respiratory Rate 16 12/04/22 13:03 (units unknown) (unknown) (unknown) (no date) (unknown) (unknown) Respiratory Rate 16 (units unknown) (unknown) (unknown) (no date) (unknown) (unknown) Respiratory Rate 18 (units unknown) (unknown) (unknown) (no date) (unknown) (unknown) Respiratory Rate (units unknown) (unknown) (unknown) (no date) (unknown) (unknown) 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 also (units unknown) (unknown) (unknown) (no date) (unknown) (unknown) Review of Systems (units unknown) (unknown) (unknown) (no date) (unknown) (unknown) Rx Instructions: (units unknown) (unknown) (unknown) (no date) (unknown) (unknown) SKIN: Intact, warm and dry, no crepitus and without decubitus (units unknown) (unknown) (unknown) (no date) (unknown) (unknown) Scores (units unknown) (unknown) (unknown) (no date) (unknown) (unknown) Signed By: (units unknown) (unknown) (unknown) (no date) (unknown) (unknown) Smoking Status: Never smoker (units unknown) (unknown) (unknown) (no date) (unknown) (unknown) Social History (units unknown) (unknown) (unknown) (no date) (unknown) (unknown) Source: patient, RN notes reviewed and old records reviewed (units unknown) (unknown) (unknown) (no date) (unknown) (unknown) Stand Alone Forms: Patient Portal/API (units unknown) (unknown) (unknown) (no date) (unknown) (unknown) Stated Complaint: Low back pain (units unknown) (unknown) (unknown) (no date) (unknown) (unknown) Stop: 12/04/22 16:14 (units unknown) (unknown) (unknown) (no date) (unknown) (unknown) Stop: 12/04/22 16:15 (units unknown) (unknown) (unknown) (no date) (unknown) (unknown) Stop: 12/04/22 16:16 (units unknown) (unknown) (unknown) (no date) (unknown) (unknown) Substance Use Type: does not use and prescription drug (units unknown) (unknown) (unknown) (no date) (unknown) (unknown) Surgical History (units unknown) (unknown) (unknown) (no date) (unknown) (unknown) Syringe) 0.5 ml IM .ONCE ONE (units unknown) (unknown) (unknown) (no date) (unknown) (unknown) Temperature 97 F L 12/04/22 13:03 (units unknown) (unknown) (unknown) (no date) (unknown) (unknown) Temperature 97 F L (units unknown) (unknown) (unknown) (no date) (unknown) (unknown) Temperature (units unknown) (unknown) (unknown) (no date) (unknown) (unknown) This is an 87-year-old male with acute on chronic lumbar back pain with no (units unknown) (unknown) (unknown) (no date) (unknown) (unknown) Time Seen by Provider: 12/04/22 15:29 (units unknown) (unknown) (unknown) (no date) (unknown) (unknown) Tramadol HCl (Tramadol 50 Mg Tablet) 50 mg PO NOW ONE (units unknown) (unknown) (unknown) (no date) (unknown) (unknown) Vital Signs - 8 hr (units unknown) (unknown) (unknown) (no date) (unknown) (unknown) Vital Signs (units unknown) (unknown) (unknown) (no date) (unknown) (unknown) Vital signs: (units unknown) (unknown) (unknown) (no date) (unknown) (unknown) Xarelto 20 mg Tablet (units unknown) (unknown) (unknown) (no date) (unknown) (unknown) You can use lidocaine patch to the affected area on her back as needed. (units unknown) (unknown) (unknown) (no date) (unknown) (unknown) You may increase your Tylenol to a 1000 mg every 6 hours as needed for pain. (units unknown) (unknown) (unknown) (no date) (unknown) (unknown) abrasion on the left side his neck with scabbing that is approximately 1 x 2 cm (units unknown) (unknown) (unknown) (no date) (unknown) (unknown) acute red flag symptoms. His imaging is stable and with no acute neurologic (units unknown) (unknown) (unknown) (no date) (unknown) (unknown) airway is normal and with normal occlusion, No bony tenderness, patient has not (units unknown) (unknown) (unknown) (no date) (unknown) (unknown) alcohol intake frequency: 0-2 drinks per day (units unknown) (unknown) (unknown) (no date) (unknown) (unknown) alcohol intake: current (units unknown) (unknown) (unknown) (no date) (unknown) (unknown) also caregivers part-time state that oxycodone makes him quite altered. We (units unknown) (unknown) (unknown) (no date) (unknown) (unknown) and below (units unknown) (unknown) (unknown) (no date) (unknown) (unknown) any bladder or fecal incontinence. No other GI or urinary symptoms. He (units unknown) (unknown) (unknown) (no date) (unknown) (unknown) at home since his fall he does normally use a walker encouraged to continue (units unknown) (unknown) (unknown) (no date) (unknown) (unknown) benign left frontal coarse calcification measures less than 5 mm probably (units unknown) (unknown) (unknown) (no date) (unknown) (unknown) bimatoprost 0.01 % eye drops 1 drp ophthalmic (eye) DAILY 10/24/22 10/24/22 (units unknown) (unknown) (unknown) (no date) (unknown) (unknown) bupropion HCl 150 mg Tablet Sustained-Release 12 Hr (units unknown) (unknown) (unknown) (no date) (unknown) (unknown) bupropion HCl 150 mg tablet,12 hr 150 mg PO BID 10/24/22 10/24/22 (units unknown) (unknown) (unknown) (no date) (unknown) (unknown) capsule,extended release 24 hr (units unknown) (unknown) (unknown) (no date) (unknown) (unknown) changes is not felt to require emergent MRI. Patient has been able to ambulate (units unknown) (unknown) (unknown) (no date) (unknown) (unknown) compression fractures and retropulsed fragment at L1. Patient had mechanical (units unknown) (unknown) (unknown) (no date) (unknown) (unknown) daily and gabapentin and had injection in his lower back in the past week. (units unknown) (unknown) (unknown) (no date) (unknown) (unknown) daily for his chronic back pain. States his last dose was at 8:00 a.m. he was (units unknown) (unknown) (unknown) (no date) (unknown) (unknown) daily until stools are soft and regular. (units unknown) (unknown) (unknown) (no date) (unknown) (unknown) department. He follows with Dr. Peterson for spinal surgery and Dr. Rob for (units unknown) (unknown) (unknown) (no date) (unknown) (unknown) diltiazem HCl 240 mg 240 mg PO DAILY 10/24/22 10/24/22 (units unknown) (unknown) (unknown) (no date) (unknown) (unknown) diltiazem HCl 240 mg Capsule,Extended Release 24hr (units unknown) (unknown) (unknown) (no date) (unknown) (unknown) discussed narcotics only sparingly as this can cause mental status changes. We (units unknown) (unknown) (unknown) (no date) (unknown) (unknown) does not appreciate weakness. Been able to ambulate since the fall. States (units unknown) (unknown) (unknown) (no date) (unknown) (unknown) does not radiate down his legs. No paresthesias, no numbness or tingling. He (units unknown) (unknown) (unknown) (no date) (unknown) (unknown) dorzolamide 22.3 mg-timolol 6.8 1 drp ophthalmic (eye) DAILY 10/24/22 10/24/22 (units unknown) (unknown) (unknown) (no date) (unknown) (unknown) dorzolamide-timolol 22.3-6.8 mg/mL Drops (units unknown) (unknown) (unknown) (no date) (unknown) (unknown) due to have a dose at 2:00 p.m. but missed it 2nd being in the emergency (units unknown) (unknown) (unknown) (no date) (unknown) (unknown) facet joints. No change from prior exam 10/07/2022. (units unknown) (unknown) (unknown) (no date) (unknown) (unknown) fall occurred yesterday. He uses a walker normally at home. He did strike his (units unknown) (unknown) (unknown) (no date) (unknown) (unknown) finasteride 5 mg Tablet (units unknown) (unknown) (unknown) (no date) (unknown) (unknown) finasteride 5 mg tablet 5 mg PO DAILY 10/24/22 10/24/22 (units unknown) (unknown) (unknown) (no date) (unknown) (unknown) fractures with retropulsed fragment. Patient states he actually had injection (units unknown) (unknown) (unknown) (no date) (unknown) (unknown) gabapentin. Follow up with Dr. Rob for recheck. We will try a short course of (units unknown) (unknown) (unknown) (no date) (unknown) (unknown) ground level fall has had increased pain. He is normally on Tylenol 3 times (units unknown) (unknown) (unknown) (no date) (unknown) (unknown) head. He is on Xarelto. Does have an abrasion on the left side of his neck. (units unknown) (unknown) (unknown) (no date) (unknown) (unknown) hematoma. Bones and visualized facial bones are intact. (units unknown) (unknown) (unknown) (no date) (unknown) (unknown) hemotypanum, Nares are clear, no septal hematoma, no dental or oral injury, (units unknown) (unknown) (unknown) (no date) (unknown) (unknown) household members: none and other (units unknown) (unknown) (unknown) (no date) (unknown) (unknown) in his lower back. He has chronic back pain with known lumbar compression (units unknown) (unknown) (unknown) (no date) (unknown) (unknown) in length. (units unknown) (unknown) (unknown) (no date) (unknown) (unknown) in the last week which is typically helpful to his back by Dr. Rob. Patient (units unknown) (unknown) (unknown) (no date) (unknown) (unknown) injections, intervention. Patient states he was told he told he could (units unknown) (unknown) (unknown) (no date) (unknown) (unknown) injury, altered mental status, neuro deficit, recent EtOH. (units unknown) (unknown) (unknown) (no date) (unknown) (unknown) level fall. Patient states tripped and fell. He states he has increased pain (units unknown) (unknown) (unknown) (no date) (unknown) (unknown) lift or move her leg or other new or concerning changes. (units unknown) (unknown) (unknown) (no date) (unknown) (unknown) medication will make you constipated please take a stool softener once to twice (units unknown) (unknown) (unknown) (no date) (unknown) (unknown) mg/mL eye drops (units unknown) (unknown) (unknown) (no date) (unknown) (unknown) must administer with evening meal (units unknown) (unknown) (unknown) (no date) (unknown) (unknown) normally takes a 1000 mg of Tylenol 3 times daily and gabapentin 400 mg 3 times (units unknown) (unknown) (unknown) (no date) (unknown) (unknown) omeprazole 20 mg Capsule,Delayed Release(Dr/Ec) (units unknown) (unknown) (unknown) (no date) (unknown) (unknown) omeprazole 20 mg capsule,delayed 20 mg PO DAILY 10/24/22 10/24/22 (units unknown) (unknown) (unknown) (no date) (unknown) (unknown) pain or shortness of breath. He complains only of lower lumbar pain. He denies (units unknown) (unknown) (unknown) (no date) (unknown) (unknown) pelvic rock is negative (units unknown) (unknown) (unknown) (no date) (unknown) (unknown) perform hazardous activities or make any major decisions while taking it. This (units unknown) (unknown) (unknown) (no date) (unknown) (unknown) potentially have a another injection this upcoming week. (units unknown) (unknown) (unknown) (no date) (unknown) (unknown) reflects prior granulomatous disease or old trauma. Right scalp occipital (units unknown) (unknown) (unknown) (no date) (unknown) (unknown) release (units unknown) (unknown) (unknown) (no date) (unknown) (unknown) right eye (units unknown) (unknown) (unknown) (no date) (unknown) (unknown) rivaroxaban 20 mg tablet (Xarelto) 20 mg PO QPM 10/24/22 10/24/22 (units unknown) (unknown) (unknown) (no date) (unknown) (unknown) sensation, loss of bowel or bladder control, urinary retention, inability to (units unknown) (unknown) (unknown) (no date) (unknown) (unknown) sick sinus syndrome, history of ventricular tachycardia who presents with ground (units unknown) (unknown) (unknown) (no date) (unknown) (unknown) sounds are normal no crackles, wheezes or rales (units unknown) (unknown) (unknown) (no date) (unknown) (unknown) spondylolisthesis present at L2-L3 and L5 through S1. Diffusely hypertrophic (units unknown) (unknown) (unknown) (no date) (unknown) (unknown) stable. Generalized decreased osseous mineralization present. Two degenerative (units unknown) (unknown) (unknown) (no date) (unknown) (unknown) states pain is localized to the same area. A little bit more on the right. 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 (units unknown) (unknown) (unknown) (no date) (unknown) (unknown) sustained-release (units unknown) (unknown) (unknown) (no date) (unknown) (unknown) tamsulosin 0.4 mg Capsule (units unknown) (unknown) (unknown) (no date) (unknown) (unknown) tamsulosin 0.4 mg capsule 0.4 mg PO BEDTIME 10/24/22 10/24/22 (units unknown) (unknown) (unknown) (no date) (unknown) (unknown) this. Plan increase his Tylenol to a 1000 mg 4 times daily, continue his (units unknown) (unknown) (unknown) (no date) (unknown) (unknown) topical ointment (units unknown) (unknown) (unknown) (no date) (unknown) (unknown) tramadol every 6 hours. This medication can make you sleepy do not drive, (units unknown) (unknown) (unknown) (no date) (unknown) (unknown) tramadol to see if this is helpful. Patient and friends at bedside who were (units unknown) (unknown) (unknown) (no date) (unknown) (unknown) triamcinolone acetonide 0.1 % 1 applic topical DAILY PRN Dry Skin 10/24/22 (units unknown) (unknown) (unknown) (no date) (unknown) (unknown) triamcinolone acetonide 0.1 % Ointment (units unknown) (unknown) (unknown) (no date) (unknown) (unknown) upper and lower extremities. No saddle anesthesia. (units unknown) (unknown) (unknown) (no date) (unknown) (unknown) vitamin B complex (B 1 tab PO DAILY 10/24/22 10/24/22 (units unknown) (unknown) (unknown) (no date) (unknown) (unknown) vitamin B complex [B Complex-Vitamin B12] Tablet (units unknown) (unknown) (unknown) (no date) (unknown) (unknown) volume loss with multifocal white matter chronic ischemic change noted. Did (units unknown) (unknown) (unknown) (no date) (unknown) (unknown) will also try lidocaine patch to see if this is helpful. (units unknown) (unknown) (unknown) (no date) (unknown) (unknown) with leg lift bilaterally. 5/5 muscle strength. Sensation and touch bilateral (units unknown) (unknown) Result panel 104 (unknown) (no date) (unknown) (unknown) (no value) (units unknown) (unknown) (unknown) (no date) (unknown) (unknown) <Electronically signed by Natalie Hernandez D.O.> (units unknown) (unknown) (unknown) (no date) (unknown) (unknown) ([place]) (units unknown) (unknown) (unknown) (no date) (unknown) (unknown) 0.4 mg PO BEDTIME (units unknown) (unknown) (unknown) (no date) (unknown) (unknown) 10/24/22 (units unknown) (unknown) (unknown) (no date) (unknown) (unknown) 12/04/22 13:16 (units unknown) (unknown) (unknown) (no date) (unknown) (unknown) 12/04/22 13:17 (units unknown) (unknown) (unknown) (no date) (unknown) (unknown) 12/04/22 1915 (units unknown) (unknown) (unknown) (no date) (unknown) (unknown) 12/04/22 (units unknown) (unknown) (unknown) (no date) (unknown) (unknown) [id number] (units unknown) (unknown) (unknown) (no date) (unknown) (unknown) 1 applic TOPICAL DAILY PRN (Reason: Dry Skin) (units unknown) (unknown) (unknown) (no date) (unknown) (unknown) 1 drp OPHTHALMIC (EYE) DAILY (units unknown) (unknown) (unknown) (no date) (unknown) (unknown) 1 patch topical DAILY PRN (Reason: pain) Qty: 30 0RF (units unknown) (unknown) (unknown) (no date) (unknown) (unknown) 1 tab PO DAILY (units unknown) (unknown) (unknown) (no date) (unknown) (unknown) 13:03 12/04/22 (units unknown) (unknown) (unknown) (no date) (unknown) (unknown) 150 mg PO BID (units unknown) (unknown) (unknown) (no date) (unknown) (unknown) 15:28 12/04/22 (units unknown) (unknown) (unknown) (no date) (unknown) (unknown) 15:28 (units unknown) (unknown) (unknown) (no date) (unknown) (unknown) 15:30 12/04/22 (units unknown) (unknown) (unknown) (no date) (unknown) (unknown) 15:53 12/04/22 (units unknown) (unknown) (unknown) (no date) (unknown) (unknown) 15:53 (units unknown) (unknown) (unknown) (no date) (unknown) (unknown) 15:59 12/04/22 (units unknown) (unknown) (unknown) (no date) (unknown) (unknown) 16:00 12/04/22 (units unknown) (unknown) (unknown) (no date) (unknown) (unknown) 16:00 (units unknown) (unknown) (unknown) (no date) (unknown) (unknown) 16:30 12/04/22 (units unknown) (unknown) (unknown) (no date) (unknown) (unknown) 16:31 12/04/22 (units unknown) (unknown) (unknown) (no date) (unknown) (unknown) 16:31 (units unknown) (unknown) (unknown) (no date) (unknown) (unknown) 20 mg PO DAILY (units unknown) (unknown) (unknown) (no date) (unknown) (unknown) 20 mg PO QPM (units unknown) (unknown) (unknown) (no date) (unknown) (unknown) 240 mg PO DAILY (units unknown) (unknown) (unknown) (no date) (unknown) (unknown) 4 extremities moving, cranial nerves II through XII are intact, GCS is 15 (units unknown) (unknown) (unknown) (no date) (unknown) (unknown) 400 mg PO TID Qty: 30 0RF (units unknown) (unknown) (unknown) (no date) (unknown) (unknown) 5 mg PO DAILY (units unknown) (unknown) (unknown) (no date) (unknown) (unknown) 50 mg PO Q8H PRN (Reason: pain) Qty: 10 0RF (units unknown) (unknown) (unknown) (no date) (unknown) (unknown) 87-year-old male with history of AFib on Xarelto, prior pacemaker placement for (units unknown) (unknown) (unknown) (no date) (unknown) (unknown) ABG/GI: Nontender, soft, normal bowel sounds, no distention, no organomegaly, (units unknown) (unknown) (unknown) (no date) (unknown) (unknown) Acetaminophen (Acetaminophen 325 Mg Tablet) 975 mg PO NOW ONE (units unknown) (unknown) (unknown) (no date) (unknown) (unknown) Activity Restrictions/Additio nal Instructions: (units unknown) (unknown) (unknown) (no date) (unknown) (unknown) Acute exacerbation of chronic low back pain (units unknown) (unknown) (unknown) (no date) (unknown) (unknown) Age greater or equal to 65 years: Yes (units unknown) (unknown) (unknown) (no date) (unknown) (unknown) Age/Sex: 87 / M (units unknown) (unknown) (unknown) (no date) (unknown) (unknown) Allergies (units unknown) (unknown) (unknown) (no date) (unknown) (unknown) Allergy/AdvReac Type Severity Reaction Status Date / Time (units unknown) (unknown) (unknown) (no date) (unknown) (unknown) Altered level of conciousness present: No (units unknown) (unknown) (unknown) (no date) (unknown) (unknown) BACK: No CVA tenderness, no vertebral tenderness, no step-off's, no crepitus (units unknown) (unknown) (unknown) (no date) (unknown) (unknown) BPH (benign prostatic hyperplasia) (units unknown) (unknown) (unknown) (no date) (unknown) (unknown) Blood Pressure 112/68 12/04/22 13:03 (units unknown) (unknown) (unknown) (no date) (unknown) (unknown) Blood Pressure 112/68 122/82 (units unknown) (unknown) (unknown) (no date) (unknown) (unknown) Blood Pressure 116/75 (units unknown) (unknown) (unknown) (no date) (unknown) (unknown) Blood Pressure 120/74 (units unknown) (unknown) (unknown) (no date) (unknown) (unknown) Blood Pressure 129/63 (units unknown) (unknown) (unknown) (no date) (unknown) (unknown) CT head/brain wo con Stat (units unknown) (unknown) (unknown) (no date) (unknown) (unknown) CT lumbar spine wo con Stat (units unknown) (unknown) (unknown) (no date) (unknown) (unknown) CT scan - head: (units unknown) (unknown) (unknown) (no date) (unknown) (unknown) CVS: Heart sounds are normal, no murmur noted, No JVD. (units unknown) (unknown) (unknown) (no date) (unknown) (unknown) [place] CT Head Rule (units unknown) (unknown) (unknown) (no date) (unknown) (unknown) Chief Complaint: Back Pain/Injury (units unknown) (unknown) (unknown) (no date) (unknown) (unknown) Chronic anticoagulation (units unknown) (unknown) (unknown) (no date) (unknown) (unknown) Clinical Impression: (units unknown) (unknown) (unknown) (no date) (unknown) (unknown) Complex-Vitamin B12 tablet) (units unknown) (unknown) (unknown) (no date) (unknown) (unknown) Compression fracture at L1, L2, L3 and L4 again noted unchanged from prior exam. (units unknown) (unknown) (unknown) (no date) (unknown) (unknown) Continue with your gabapentin 400 mg 3 times daily. 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 (units unknown) (unknown) (unknown) (no date) (unknown) (unknown) Departure (units unknown) (unknown) (unknown) (no date) (unknown) (unknown) Diphtheria/Tetanus/A cell Pertussis (Tet,Diph,Pertuss(Ac ell),Vac/Pf 0.5 Ml (units unknown) (unknown) (unknown) (no date) (unknown) (unknown) Discharge Plan (units unknown) (unknown) (unknown) (no date) (unknown) (unknown) Discontinued Medications (units unknown) (unknown) (unknown) (no date) (unknown) (unknown) Documented By: NR (units unknown) (unknown) (unknown) (no date) (unknown) (unknown) ED Orders (units unknown) (unknown) (unknown) (no date) (unknown) (unknown) ENT: External inspection normal, trachea is midline, TM's are normal no (units unknown) (unknown) (unknown) (no date) (unknown) (unknown) ER Physician: Natalie Hernandez D.O. (units unknown) (unknown) (unknown) (no date) (unknown) (unknown) EXT: Atraumatic, hips are nontender, bilateral pedal edema. Patient has no pain (units unknown) (unknown) (unknown) (no date) (unknown) (unknown) EYES: PERRLA, EOMI (units unknown) (unknown) (unknown) (no date) (unknown) (unknown) Emergency Report (units unknown) (unknown) (unknown) (no date) (unknown) (unknown) Exam Narrative: (units unknown) (unknown) (unknown) (no date) (unknown) (unknown) Exam (units unknown) (unknown) (unknown) (no date) (unknown) (unknown) Family History (units unknown) (unknown) (unknown) (no date) (unknown) (unknown) Father No problems noted. (units unknown) (unknown) (unknown) (no date) (unknown) (unknown) Focal Neurologic deficit present: No (units unknown) (unknown) (unknown) (no date) (unknown) (unknown) GCS (units unknown) (unknown) (unknown) (no date) (unknown) (unknown) GEN: Patient appears in mild distress. (units unknown) (unknown) (unknown) (no date) (unknown) (unknown) Gabapentin (Gabapentin 100 Mg Capsule) 400 mg PO TID ONE (units unknown) (unknown) (unknown) (no date) (unknown) (unknown) General (units unknown) (unknown) (unknown) (no date) (unknown) (unknown) Baldwin coma scale eye opening: Spontaneous (units unknown) (unknown) (unknown) (no date) (unknown) (unknown) Baldwin coma scale motor response: Obey commands (units unknown) (unknown) (unknown) (no date) (unknown) (unknown) Baldwin coma scale total score: 15 (units unknown) (unknown) (unknown) (no date) (unknown) (unknown) Baldwin coma scale verbal response: Orientated (units unknown) (unknown) (unknown) (no date) (unknown) (unknown) HEAD: Patient has right occipital scalp hematoma, no raccoon/Loja sign. (units unknown) (unknown) (unknown) (no date) (unknown) (unknown) HPI - Back Pain/Injury (units unknown) (unknown) (unknown) (no date) (unknown) (unknown) HPI Narrative: (units unknown) (unknown) (unknown) (no date) (unknown) (unknown) He is unsure of his tetanus status. He denies headache, neck pain, no chest (units unknown) (unknown) (unknown) (no date) (unknown) (unknown) History of Present Illness (units unknown) (unknown) (unknown) (no date) (unknown) (unknown) History of permanent cardiac pacemaker placement (units unknown) (unknown) (unknown) (no date) (unknown) (unknown) Home Medications (units unknown) (unknown) (unknown) (no date) (unknown) (unknown) If these are inadequate for your pain management you can add 1-2 tablets (units unknown) (unknown) (unknown) (no date) (unknown) (unknown) Imaging Data (units unknown) (unknown) (unknown) (no date) (unknown) (unknown) Initial Vital Signs (units unknown) (unknown) (unknown) (no date) (unknown) (unknown) Initial Vital Signs: (units unknown) (unknown) (unknown) (no date) (unknown) (unknown) Instructions: DI for Low Back Pain (units unknown) (unknown) (unknown) (no date) (unknown) (unknown) Intoxication present: No (units unknown) (unknown) (unknown) (no date) (unknown) (unknown) [address] [address] (units unknown) (unknown) (unknown) (no date) (unknown) (unknown) Last Admin: 12/04/22 16:33 Dose: 0.5 ml (units unknown) (unknown) (unknown) (no date) (unknown) (unknown) Last Admin: 12/04/22 16:33 Dose: 1 each (units unknown) (unknown) (unknown) (no date) (unknown) (unknown) Last Admin: 12/04/22 16:34 Dose: 50 mg (units unknown) (unknown) (unknown) (no date) (unknown) (unknown) Last Admin: 12/04/22 16:34 Dose: 975 mg (units unknown) (unknown) (unknown) (no date) (unknown) (unknown) Last Admin: 12/04/22 16:35 Dose: 400 mg (units unknown) (unknown) (unknown) (no date) (unknown) (unknown) Lidocaine (Lidocaine Patch 1 Each Adh..Patch) 1 each TOP NOW ONE (units unknown) (unknown) (unknown) (no date) (unknown) (unknown) Limitations: no limitations (units unknown) (unknown) (unknown) (no date) (unknown) (unknown) Lspine CT: (units unknown) (unknown) (unknown) (no date) (unknown) (unknown) [place] 0.01 % Drops (units unknown) (unknown) (unknown) (no date) (unknown) (unknown) MDM - Back Pain/Injury (units unknown) (unknown) (unknown) (no date) (unknown) (unknown) MDM Narrative (units unknown) (unknown) (unknown) (no date) (unknown) (unknown) Medical History (units unknown) (unknown) (unknown) (no date) (unknown) (unknown) Medical decision making narrative: (units unknown) (unknown) (unknown) (no date) (unknown) (unknown) Medication Instructions Recorded Confirmed (units unknown) (unknown) (unknown) (no date) (unknown) (unknown) Medication Instructions Recorded (units unknown) (unknown) (unknown) (no date) (unknown) (unknown) Midline spinal tenderness present: No (units unknown) (unknown) (unknown) (no date) (unknown) (unknown) Mode of arrival: Ambulatory (units unknown) (unknown) (unknown) (no date) (unknown) (unknown) Moderate atrophy and chronic ischemic change. Moderate cerebral and Valium (units unknown) (unknown) (unknown) (no date) (unknown) (unknown) Mother Cancer (units unknown) (unknown) (unknown) (no date) (unknown) (unknown) NECK: Nontender, painless range of motion, trachea midline (units unknown) (unknown) (unknown) (no date) (unknown) (unknown) NEURO: Oriented AOx3, neuro is grossly intact, sensation and motor is normal all (units unknown) (unknown) (unknown) (no date) (unknown) (unknown) Narrative (units unknown) (unknown) (unknown) (no date) (unknown) (unknown) Negative for Nexus criteria, there is no midline line tenderness, distracting (units unknown) (unknown) (unknown) (no date) (unknown) (unknown) New (units unknown) (unknown) (unknown) (no date) (unknown) (unknown) Nexus Score for C-Spine (units unknown) (unknown) (unknown) (no date) (unknown) (unknown) No Action (units unknown) (unknown) (unknown) (no date) (unknown) (unknown) No Known Drug Allergies Allergy Verified 12/04/22 13:09 (units unknown) (unknown) (unknown) (no date) (unknown) (unknown) Ordered: (units unknown) (unknown) (unknown) (no date) (unknown) (unknown) Orders (units unknown) (unknown) (unknown) (no date) (unknown) (unknown) Osteoporosis (units unknown) (unknown) (unknown) (no date) (unknown) (unknown) Oxygen Delivery Method 12/04/22 13:03 (units unknown) (unknown) (unknown) (no date) (unknown) (unknown) Oxygen Delivery Method Room Air (units unknown) (unknown) (unknown) (no date) (unknown) (unknown) Oxygen Delivery Method (units unknown) (unknown) (unknown) (no date) (unknown) (unknown) PSYCH: Normal mood and affect (units unknown) (unknown) (unknown) (no date) (unknown) (unknown) Patient Disposition: Home (units unknown) (unknown) (unknown) (no date) (unknown) (unknown) Patient History (units unknown) (unknown) (unknown) (no date) (unknown) (unknown) Patient has missed his most recent dose of medication. He does not have any (units unknown) (unknown) (unknown) (no date) (unknown) (unknown) Patient on blood thinners: Yes (units unknown) (unknown) (unknown) (no date) (unknown) (unknown) Patient: Jonny Neely MR#: [id number] (units unknown) (unknown) (unknown) (no date) (unknown) (unknown) Please follow-up with Dr. Rob and if needed Dr. Peterson regarding your back. (units unknown) (unknown) (unknown) (no date) (unknown) (unknown) Please return for rapidly worsening symptoms, new numbness, weakness loss of (units unknown) (unknown) (unknown) (no date) (unknown) (unknown) Prescription sent to [facility]. (units unknown) (unknown) (unknown) (no date) (unknown) (unknown) Prescriptions: (units unknown) (unknown) (unknown) (no date) (unknown) (unknown) Previous Rx's (units unknown) (unknown) (unknown) (no date) (unknown) (unknown) Pulse Oximetry 96 96 (units unknown) (unknown) (unknown) (no date) (unknown) (unknown) Pulse Oximetry 97 97 (units unknown) (unknown) (unknown) (no date) (unknown) (unknown) Pulse Oximetry 98 12/04/22 13:03 (units unknown) (unknown) (unknown) (no date) (unknown) (unknown) Pulse Oximetry 98 98 (units unknown) (unknown) (unknown) (no date) (unknown) (unknown) Pulse Oximetry 99 97 (units unknown) (unknown) (unknown) (no date) (unknown) (unknown) Pulse Rate 72 12/04/22 13:03 (units unknown) (unknown) (unknown) (no date) (unknown) (unknown) Pulse Rate 72 83 (units unknown) (unknown) (unknown) (no date) (unknown) (unknown) Pulse Rate 75 75 (units unknown) (unknown) (unknown) (no date) (unknown) (unknown) Pulse Rate 78 74 (units unknown) (unknown) (unknown) (no date) (unknown) (unknown) Pulse Rate 84 78 (units unknown) (unknown) (unknown) (no date) (unknown) (unknown) RESP: Chest is nontender and has symmetric movement, no ecchymosis, breath (units unknown) (unknown) (unknown) (no date) (unknown) (unknown) ROS Unobtainable: All systems reviewed + are unremarkable except as noted in HPI (units unknown) (unknown) (unknown) (no date) (unknown) (unknown) Radiologist's Impression: (units unknown) (unknown) (unknown) (no date) (unknown) (unknown) Related Data (units unknown) (unknown) (unknown) (no date) (unknown) (unknown) Respiratory Rate 16 12/04/22 13:03 (units unknown) (unknown) (unknown) (no date) (unknown) (unknown) Respiratory Rate 16 (units unknown) (unknown) (unknown) (no date) (unknown) (unknown) Respiratory Rate 18 (units unknown) (unknown) (unknown) (no date) (unknown) (unknown) Respiratory Rate (units unknown) (unknown) (unknown) (no date) (unknown) (unknown) 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 also (units unknown) (unknown) (unknown) (no date) (unknown) (unknown) Review of Systems (units unknown) (unknown) (unknown) (no date) (unknown) (unknown) Rx Instructions: (units unknown) (unknown) (unknown) (no date) (unknown) (unknown) SKIN: Intact, warm and dry, no crepitus and without decubitus (units unknown) (unknown) (unknown) (no date) (unknown) (unknown) Scores (units unknown) (unknown) (unknown) (no date) (unknown) (unknown) Signed By: (units unknown) (unknown) (unknown) (no date) (unknown) (unknown) Smoking Status: Never smoker (units unknown) (unknown) (unknown) (no date) (unknown) (unknown) Social History (units unknown) (unknown) (unknown) (no date) (unknown) (unknown) Source: patient, RN notes reviewed and old records reviewed (units unknown) (unknown) (unknown) (no date) (unknown) (unknown) Stand Alone Forms: Patient Portal/API (units unknown) (unknown) (unknown) (no date) (unknown) (unknown) Stated Complaint: Low back pain (units unknown) (unknown) (unknown) (no date) (unknown) (unknown) Stop: 12/04/22 16:14 (units unknown) (unknown) (unknown) (no date) (unknown) (unknown) Stop: 12/04/22 16:15 (units unknown) (unknown) (unknown) (no date) (unknown) (unknown) Stop: 12/04/22 16:16 (units unknown) (unknown) (unknown) (no date) (unknown) (unknown) Substance Use Type: does not use and prescription drug (units unknown) (unknown) (unknown) (no date) (unknown) (unknown) Surgical History (units unknown) (unknown) (unknown) (no date) (unknown) (unknown) Syringe) 0.5 ml IM .ONCE ONE (units unknown) (unknown) (unknown) (no date) (unknown) (unknown) Temperature 97 F L 12/04/22 13:03 (units unknown) (unknown) (unknown) (no date) (unknown) (unknown) Temperature 97 F L (units unknown) (unknown) (unknown) (no date) (unknown) (unknown) Temperature (units unknown) (unknown) (unknown) (no date) (unknown) (unknown) This is an 87-year-old male with acute on chronic lumbar back pain with no (units unknown) (unknown) (unknown) (no date) (unknown) (unknown) Time Seen by Provider: 12/04/22 15:29 (units unknown) (unknown) (unknown) (no date) (unknown) (unknown) Tramadol HCl (Tramadol 50 Mg Tablet) 50 mg PO NOW ONE (units unknown) (unknown) (unknown) (no date) (unknown) (unknown) Vital Signs - 8 hr (units unknown) (unknown) (unknown) (no date) (unknown) (unknown) Vital Signs (units unknown) (unknown) (unknown) (no date) (unknown) (unknown) Vital signs: (units unknown) (unknown) (unknown) (no date) (unknown) (unknown) Xarelto 20 mg Tablet (units unknown) (unknown) (unknown) (no date) (unknown) (unknown) You can use lidocaine patch to the affected area on her back as needed. (units unknown) (unknown) (unknown) (no date) (unknown) (unknown) You may increase your Tylenol to a 1000 mg every 6 hours as needed for pain. (units unknown) (unknown) (unknown) (no date) (unknown) (unknown) abrasion on the left side his neck with scabbing that is approximately 1 x 2 cm (units unknown) (unknown) (unknown) (no date) (unknown) (unknown) acute red flag symptoms. His imaging is stable and with no acute neurologic (units unknown) (unknown) (unknown) (no date) (unknown) (unknown) airway is normal and with normal occlusion, No bony tenderness, patient has not (units unknown) (unknown) (unknown) (no date) (unknown) (unknown) alcohol intake frequency: 0-2 drinks per day (units unknown) (unknown) (unknown) (no date) (unknown) (unknown) alcohol intake: current (units unknown) (unknown) (unknown) (no date) (unknown) (unknown) also caregivers part-time state that oxycodone makes him quite altered. We (units unknown) (unknown) (unknown) (no date) (unknown) (unknown) and below (units unknown) (unknown) (unknown) (no date) (unknown) (unknown) any bladder or fecal incontinence. No other GI or urinary symptoms. He (units unknown) (unknown) (unknown) (no date) (unknown) (unknown) at home since his fall he does normally use a walker encouraged to continue (units unknown) (unknown) (unknown) (no date) (unknown) (unknown) benign left frontal coarse calcification measures less than 5 mm probably (units unknown) (unknown) (unknown) (no date) (unknown) (unknown) bimatoprost 0.01 % eye drops 1 drp ophthalmic (eye) DAILY 10/24/22 10/24/22 (units unknown) (unknown) (unknown) (no date) (unknown) (unknown) bupropion HCl 150 mg Tablet Sustained-Release 12 Hr (units unknown) (unknown) (unknown) (no date) (unknown) (unknown) bupropion HCl 150 mg tablet,12 hr 150 mg PO BID 10/24/22 10/24/22 (units unknown) (unknown) (unknown) (no date) (unknown) (unknown) capsule,extended release 24 hr (units unknown) (unknown) (unknown) (no date) (unknown) (unknown) changes is not felt to require emergent MRI. Patient has been able to ambulate (units unknown) (unknown) (unknown) (no date) (unknown) (unknown) compression fractures and retropulsed fragment at L1. Patient had mechanical (units unknown) (unknown) (unknown) (no date) (unknown) (unknown) daily and gabapentin and had injection in his lower back in the past week. (units unknown) (unknown) (unknown) (no date) (unknown) (unknown) daily for his chronic back pain. States his last dose was at 8:00 a.m. he was (units unknown) (unknown) (unknown) (no date) (unknown) (unknown) daily until stools are soft and regular. (units unknown) (unknown) (unknown) (no date) (unknown) (unknown) department. He follows with Dr. Peterson for spinal surgery and Dr. Rob for (units unknown) (unknown) (unknown) (no date) (unknown) (unknown) diltiazem HCl 240 mg 240 mg PO DAILY 10/24/22 10/24/22 (units unknown) (unknown) (unknown) (no date) (unknown) (unknown) diltiazem HCl 240 mg Capsule,Extended Release 24hr (units unknown) (unknown) (unknown) (no date) (unknown) (unknown) discussed narcotics only sparingly as this can cause mental status changes. We (units unknown) (unknown) (unknown) (no date) (unknown) (unknown) does not appreciate weakness. Been able to ambulate since the fall. States (units unknown) (unknown) (unknown) (no date) (unknown) (unknown) does not radiate down his legs. No paresthesias, no numbness or tingling. He (units unknown) (unknown) (unknown) (no date) (unknown) (unknown) dorzolamide 22.3 mg-timolol 6.8 1 drp ophthalmic (eye) DAILY 10/24/22 10/24/22 (units unknown) (unknown) (unknown) (no date) (unknown) (unknown) dorzolamide-timolol 22.3-6.8 mg/mL Drops (units unknown) (unknown) (unknown) (no date) (unknown) (unknown) due to have a dose at 2:00 p.m. but missed it 2nd being in the emergency (units unknown) (unknown) (unknown) (no date) (unknown) (unknown) ea (units unknown) (unknown) (unknown) (no date) (unknown) (unknown) facet joints. No change from prior exam 10/07/2022. (units unknown) (unknown) (unknown) (no date) (unknown) (unknown) fall occurred yesterday. He uses a walker normally at home. He did strike his (units unknown) (unknown) (unknown) (no date) (unknown) (unknown) finasteride 5 mg Tablet (units unknown) (unknown) (unknown) (no date) (unknown) (unknown) finasteride 5 mg tablet 5 mg PO DAILY 10/24/22 10/24/22 (units unknown) (unknown) (unknown) (no date) (unknown) (unknown) fractures with retropulsed fragment. Patient states he actually had injection (units unknown) (unknown) (unknown) (no date) (unknown) (unknown) gabapentin 400 mg capsule 400 mg PO TID #30 caps 12/04/22 (units unknown) (unknown) (unknown) (no date) (unknown) (unknown) gabapentin 400 mg capsule (units unknown) (unknown) (unknown) (no date) (unknown) (unknown) gabapentin. Follow up with Dr. Rob for recheck. We will try a short course of (units unknown) (unknown) (unknown) (no date) (unknown) (unknown) ground level fall has had increased pain. He is normally on Tylenol 3 times (units unknown) (unknown) (unknown) (no date) (unknown) (unknown) head. He is on Xarelto. Does have an abrasion on the left side of his neck. (units unknown) (unknown) (unknown) (no date) (unknown) (unknown) hematoma. Bones and visualized facial bones are intact. (units unknown) (unknown) (unknown) (no date) (unknown) (unknown) hemotypanum, Nares are clear, no septal hematoma, no dental or oral injury, (units unknown) (unknown) (unknown) (no date) (unknown) (unknown) household members: none and other (units unknown) (unknown) (unknown) (no date) (unknown) (unknown) in his lower back. He has chronic back pain with known lumbar compression (units unknown) (unknown) (unknown) (no date) (unknown) (unknown) in length. (units unknown) (unknown) (unknown) (no date) (unknown) (unknown) in the last week which is typically helpful to his back by Dr. Rob. Patient (units unknown) (unknown) (unknown) (no date) (unknown) (unknown) injections, intervention. Patient states he was told he told he could (units unknown) (unknown) (unknown) (no date) (unknown) (unknown) injury, altered mental status, neuro deficit, recent EtOH. (units unknown) (unknown) (unknown) (no date) (unknown) (unknown) leave on most painful area for up to 12 hrs (units unknown) (unknown) (unknown) (no date) (unknown) (unknown) level fall. Patient states tripped and fell. He states he has increased pain (units unknown) (unknown) (unknown) (no date) (unknown) (unknown) lidocaine 5 % adhesive patch,medicated (units unknown) (unknown) (unknown) (no date) (unknown) (unknown) lidocaine 5 % topical patch 1 patch topical DAILY PRN pain #30 12/04/22 (units unknown) (unknown) (unknown) (no date) (unknown) (unknown) lift or move her leg or other new or concerning changes. (units unknown) (unknown) (unknown) (no date) (unknown) (unknown) medication will make you constipated please take a stool softener once to twice (units unknown) (unknown) (unknown) (no date) (unknown) (unknown) mg/mL eye drops (units unknown) (unknown) (unknown) (no date) (unknown) (unknown) must administer with evening meal (units unknown) (unknown) (unknown) (no date) (unknown) (unknown) normally takes a 1000 mg of Tylenol 3 times daily and gabapentin 400 mg 3 times (units unknown) (unknown) (unknown) (no date) (unknown) (unknown) omeprazole 20 mg Capsule,Delayed Release(Dr/Ec) (units unknown) (unknown) (unknown) (no date) (unknown) (unknown) omeprazole 20 mg capsule,delayed 20 mg PO DAILY 10/24/22 10/24/22 (units unknown) (unknown) (unknown) (no date) (unknown) (unknown) pain or shortness of breath. He complains only of lower lumbar pain. He denies (units unknown) (unknown) (unknown) (no date) (unknown) (unknown) pelvic rock is negative (units unknown) (unknown) (unknown) (no date) (unknown) (unknown) perform hazardous activities or make any major decisions while taking it. This (units unknown) (unknown) (unknown) (no date) (unknown) (unknown) potentially have a another injection this upcoming week. (units unknown) (unknown) (unknown) (no date) (unknown) (unknown) reflects prior granulomatous disease or old trauma. Right scalp occipital (units unknown) (unknown) (unknown) (no date) (unknown) (unknown) release (units unknown) (unknown) (unknown) (no date) (unknown) (unknown) right eye (units unknown) (unknown) (unknown) (no date) (unknown) (unknown) rivaroxaban 20 mg tablet (Xarelto) 20 mg PO QPM 10/24/22 10/24/22 (units unknown) (unknown) (unknown) (no date) (unknown) (unknown) sensation, loss of bowel or bladder control, urinary retention, inability to (units unknown) (unknown) (unknown) (no date) (unknown) (unknown) sick sinus syndrome, history of ventricular tachycardia who presents with ground (units unknown) (unknown) (unknown) (no date) (unknown) (unknown) sounds are normal no crackles, wheezes or rales (units unknown) (unknown) (unknown) (no date) (unknown) (unknown) spondylolisthesis present at L2-L3 and L5 through S1. Diffusely hypertrophic (units unknown) (unknown) (unknown) (no date) (unknown) (unknown) stable. Generalized decreased osseous mineralization present. Two degenerative (units unknown) (unknown) (unknown) (no date) (unknown) (unknown) states pain is localized to the same area. A little bit more on the right. 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 (units unknown) (unknown) (unknown) (no date) (unknown) (unknown) sustained-release (units unknown) (unknown) (unknown) (no date) (unknown) (unknown) tamsulosin 0.4 mg Capsule (units unknown) (unknown) (unknown) (no date) (unknown) (unknown) tamsulosin 0.4 mg capsule 0.4 mg PO BEDTIME 10/24/22 10/24/22 (units unknown) (unknown) (unknown) (no date) (unknown) (unknown) this. Plan increase his Tylenol to a 1000 mg 4 times daily, continue his (units unknown) (unknown) (unknown) (no date) (unknown) (unknown) topical ointment (units unknown) (unknown) (unknown) (no date) (unknown) (unknown) tramadol 50 mg tablet 50 mg PO Q8H PRN pain #10 tabs 12/04/22 (units unknown) (unknown) (unknown) (no date) (unknown) (unknown) tramadol 50 mg tablet (units unknown) (unknown) (unknown) (no date) (unknown) (unknown) tramadol every 6 hours. This medication can make you sleepy do not drive, (units unknown) (unknown) (unknown) (no date) (unknown) (unknown) tramadol to see if this is helpful. Patient and friends at bedside who were (units unknown) (unknown) (unknown) (no date) (unknown) (unknown) triamcinolone acetonide 0.1 % 1 applic topical DAILY PRN Dry Skin 10/24/22 (units unknown) (unknown) (unknown) (no date) (unknown) (unknown) triamcinolone acetonide 0.1 % Ointment (units unknown) (unknown) (unknown) (no date) (unknown) (unknown) upper and lower extremities. No saddle anesthesia. (units unknown) (unknown) (unknown) (no date) (unknown) (unknown) vitamin B complex (B 1 tab PO DAILY 10/24/22 10/24/22 (units unknown) (unknown) (unknown) (no date) (unknown) (unknown) vitamin B complex [B Complex-Vitamin B12] Tablet (units unknown) (unknown) (unknown) (no date) (unknown) (unknown) volume loss with multifocal white matter chronic ischemic change noted. Did (units unknown) (unknown) (unknown) (no date) (unknown) (unknown) will also try lidocaine patch to see if this is helpful. (units unknown) (unknown) (unknown) (no date) (unknown) (unknown) with leg lift bilaterally. 5/5 muscle strength. Sensation and touch bilateral (units unknown) (unknown) Result panel 105 (unknown) (no date) (unknown) (unknown) (no value) (units unknown) (unknown) (unknown) (no date) (unknown) (unknown) [id number] (units unknown) (unknown) (unknown) (no date) (unknown) (unknown) 12/25/22 (units unknown) (unknown) (unknown) (no date) (unknown) (unknown) [address] [place] [address] (units unknown) (unknown) (unknown) (no date) (unknown) (unknown) Accession Number: [id number] (units unknown) (unknown) (unknown) (no date) (unknown) (unknown) Age/Sex: 87 / M Date of Service: (units unknown) (unknown) (unknown) (no date) (unknown) (unknown) OLINDA Morris [id number] (units unknown) (unknown) (unknown) (no date) (unknown) (unknown) Approved by: Sukumar Perez M.D. on 12/25/2022 at 11:03 (units unknown) (unknown) (unknown) (no date) (unknown) (unknown) Bones: No fractures or dislocations. No suspicious bony lesions. The (units unknown) (unknown) (unknown) (no date) (unknown) (unknown) COMPARISON: None. (units unknown) (unknown) (unknown) (no date) (unknown) (unknown) : 1935 Acct:[id number] (units unknown) (unknown) (unknown) (no date) (unknown) (unknown) Dictated by: Sukumar Perez M.D. on 12/25/2022 at 11:02 (units unknown) (unknown) (unknown) (no date) (unknown) (unknown) FINDINGS: (units unknown) (unknown) (unknown) (no date) (unknown) (unknown) IMPRESSION: (units unknown) (unknown) (unknown) (no date) (unknown) (unknown) INDICATIONS: fall , left hip pain (units unknown) (unknown) (unknown) (no date) (unknown) (unknown) [facility] (units unknown) (unknown) (unknown) (no date) (unknown) (unknown) Loc: ED (units unknown) (unknown) (unknown) (no date) (unknown) (unknown) Mild osteoarthritic changes of the hips. (units unknown) (unknown) (unknown) (no date) (unknown) (unknown) No fracture. (units unknown) (unknown) (unknown) (no date) (unknown) (unknown) Ordering Provider: Natalie Hernandez D.O. (units unknown) (unknown) (unknown) (no date) (unknown) (unknown) PROCEDURE: XR HIP W PEL IF DONE LT 2V (units unknown) (unknown) (unknown) (no date) (unknown) (unknown) Patient: Jonny Neely MR#: [id number] (units unknown) (unknown) (unknown) (no date) (unknown) (unknown) Procedure: XR hip w pel if done LT 2V (units unknown) (unknown) (unknown) (no date) (unknown) (unknown) Signed (units unknown) (unknown) (unknown) (no date) (unknown) (unknown) Soft tissues: No suspicious soft tissue calcifications or masses. (units unknown) (unknown) (unknown) (no date) (unknown) (unknown) TECHNIQUE: 2 views of the hip were acquired. (units unknown) (unknown) (unknown) (no date) (unknown) (unknown) XRay Report (units unknown) (unknown) (unknown) (no date) (unknown) (unknown) formation. (units unknown) (unknown) (unknown) (no date) (unknown) (unknown) ring appears intact. Mild sclerosis of the acetabulum with osteophyte (units unknown) (unknown) (unknown) (no date) (unknown) (unknown) visualized pelvic (units unknown) (unknown) Result panel 106 (unknown) (no date) (unknown) (unknown) (no value) (units unknown) (unknown) (unknown) (no date) (unknown) (unknown) (Lumigan) (units unknown) (unknown) (unknown) (no date) (unknown) (unknown) 0.4 mg PO BEDTIME (units unknown) (unknown) (unknown) (no date) (unknown) (unknown) 10/24/22 (units unknown) (unknown) (unknown) (no date) (unknown) (unknown) 12/04/22 (units unknown) (unknown) (unknown) (no date) (unknown) (unknown) 12/25/22 11:32 (units unknown) (unknown) (unknown) (no date) (unknown) (unknown) 12/25/22 13:25 (units unknown) (unknown) (unknown) (no date) (unknown) (unknown) 12/25/22 (units unknown) (unknown) (unknown) (no date) (unknown) (unknown) [id number] (units unknown) (unknown) (unknown) (no date) (unknown) (unknown) 1 applic TOPICAL DAILY PRN (Reason: Dry Skin) (units unknown) (unknown) (unknown) (no date) (unknown) (unknown) 1 drp OPHTHALMIC (EYE) DAILY (units unknown) (unknown) (unknown) (no date) (unknown) (unknown) 1 patch topical DAILY PRN (Reason: pain) Qty: 30 0RF (units unknown) (unknown) (unknown) (no date) (unknown) (unknown) 1 tab PO DAILY (units unknown) (unknown) (unknown) (no date) (unknown) (unknown) 11:30 (units unknown) (unknown) (unknown) (no date) (unknown) (unknown) 10/07/22 (units unknown) (unknown) (unknown) (no date) (unknown) (unknown) [address] [place] [address] (units unknown) (unknown) (unknown) (no date) (unknown) (unknown) 150 mg PO BID (units unknown) (unknown) (unknown) (no date) (unknown) (unknown) 20 mg PO DAILY (units unknown) (unknown) (unknown) (no date) (unknown) (unknown) 20 mg PO QPM (units unknown) (unknown) (unknown) (no date) (unknown) (unknown) 240 mg PO DAILY (units unknown) (unknown) (unknown) (no date) (unknown) (unknown) 400 mg PO TID Qty: 30 0RF (units unknown) (unknown) (unknown) (no date) (unknown) (unknown) 5 mg PO DAILY (units unknown) (unknown) (unknown) (no date) (unknown) (unknown) 50 mg PO Q8H PRN (Reason: pain) Qty: 10 0RF (units unknown) (unknown) (unknown) (no date) (unknown) (unknown) ? (units unknown) (unknown) (unknown) (no date) (unknown) (unknown) ? (units unknown) (unknown) (unknown) (no date) (unknown) (unknown) Accession Number: [id number] ?? (units unknown) (unknown) (unknown) (no date) (unknown) (unknown) Acct:[id number] (units unknown) (unknown) (unknown) (no date) (unknown) (unknown) Age/Sex: 87 / M (units unknown) (unknown) (unknown) (no date) (unknown) (unknown) Allergies (units unknown) (unknown) (unknown) (no date) (unknown) (unknown) Allergy/Adv: No Known Drug Allergies (units unknown) (unknown) (unknown) (no date) (unknown) (unknown) Allergy/AdvReac Type Severity Reaction Status Date / Time (units unknown) (unknown) (unknown) (no date) (unknown) (unknown) OLINDA Morris [id number] (units unknown) (unknown) (unknown) (no date) (unknown) (unknown) Approved by: Sukumar Perez M.D. on 12/25/2022 at 11:03?? (units unknown) (unknown) (unknown) (no date) (unknown) (unknown) BPH (benign prostatic hyperplasia) (units unknown) (unknown) (unknown) (no date) (unknown) (unknown) Bedside Urine Bilirubin - Negative (units unknown) (unknown) (unknown) (no date) (unknown) (unknown) Bedside Urine Glucose Negative (units unknown) (unknown) (unknown) (no date) (unknown) (unknown) Bedside Urine Ketone - Negative (units unknown) (unknown) (unknown) (no date) (unknown) (unknown) Bedside Urine Leukocytes - Negative (units unknown) (unknown) (unknown) (no date) (unknown) (unknown) Bedside Urine Nitrite - Negative (units unknown) (unknown) (unknown) (no date) (unknown) (unknown) Bedside Urine Occult Blood (units unknown) (unknown) (unknown) (no date) (unknown) (unknown) Bedside Urine Protein - Negative (units unknown) (unknown) (unknown) (no date) (unknown) (unknown) Bedside Urine Urobilinogen - Negative (units unknown) (unknown) (unknown) (no date) (unknown) (unknown) Bedside Urine pH 6.0 (units unknown) (unknown) (unknown) (no date) (unknown) (unknown) Blood Pressure 117/69 12/25/22 11:30 (units unknown) (unknown) (unknown) (no date) (unknown) (unknown) Blood Pressure 117/69 (units unknown) (unknown) (unknown) (no date) (unknown) (unknown) Bones:? No fractures or dislocations.? No suspicious bony lesions.? The (units unknown) (unknown) (unknown) (no date) (unknown) (unknown) COMPARISON:? None. (units unknown) (unknown) (unknown) (no date) (unknown) (unknown) Cervical Spine CT (Signed) (units unknown) (unknown) (unknown) (no date) (unknown) (unknown) Chest X-Ray (Signed) (units unknown) (unknown) (unknown) (no date) (unknown) (unknown) Chest/Abdomen/Pelvis CT (Signed) (units unknown) (unknown) (unknown) (no date) (unknown) (unknown) Chief Complaint: Fall (units unknown) (unknown) (unknown) (no date) (unknown) (unknown) Chronic anticoagulation (units unknown) (unknown) (unknown) (no date) (unknown) (unknown) Close (units unknown) (unknown) (unknown) (no date) (unknown) (unknown) Complex-Vitamin B12 tablet) (units unknown) (unknown) (unknown) (no date) (unknown) (unknown) Course (units unknown) (unknown) (unknown) (no date) (unknown) (unknown) : 1935 Acct:[id number] (units unknown) (unknown) (unknown) (no date) (unknown) (unknown) : 1935 (units unknown) (unknown) (unknown) (no date) (unknown) (unknown) Date of Service: 12/25/22 (units unknown) (unknown) (unknown) (no date) (unknown) (unknown) Departure (units unknown) (unknown) (unknown) (no date) (unknown) (unknown) Dictated by: Sukumar Perez M.D. on 12/25/2022 at 11:02 ? ? (units unknown) (unknown) (unknown) (no date) (unknown) (unknown) Discharge Plan (units unknown) (unknown) (unknown) (no date) (unknown) (unknown) ED Orders (units unknown) (unknown) (unknown) (no date) (unknown) (unknown) ER Physician: Natalie Hernandez D.O. (units unknown) (unknown) (unknown) (no date) (unknown) (unknown) Echocardiogram Ultrasound (Signed) (units unknown) (unknown) (unknown) (no date) (unknown) (unknown) Emergency Report (units unknown) (unknown) (unknown) (no date) (unknown) (unknown) Esterase (units unknown) (unknown) (unknown) (no date) (unknown) (unknown) Exam (units unknown) (unknown) (unknown) (no date) (unknown) (unknown) Extremity x-ray #1: (units unknown) (unknown) (unknown) (no date) (unknown) (unknown) FINDINGS:? (units unknown) (unknown) (unknown) (no date) (unknown) (unknown) Family History (units unknown) (unknown) (unknown) (no date) (unknown) (unknown) Father No problems noted. (units unknown) (unknown) (unknown) (no date) (unknown) (unknown) General (units unknown) (unknown) (unknown) (no date) (unknown) (unknown) HPI - Fall (units unknown) (unknown) (unknown) (no date) (unknown) (unknown) Head CT (Signed) (units unknown) (unknown) (unknown) (no date) (unknown) (unknown) Hip X-Ray (Signed) (units unknown) (unknown) (unknown) (no date) (unknown) (unknown) History of permanent cardiac pacemaker placement (units unknown) (unknown) (unknown) (no date) (unknown) (unknown) Home Medications (units unknown) (unknown) (unknown) (no date) (unknown) (unknown) IMPRESSION:? (units unknown) (unknown) (unknown) (no date) (unknown) (unknown) INDICATIONS:? fall , left hip pain (units unknown) (unknown) (unknown) (no date) (unknown) (unknown) Imaging Data (units unknown) (unknown) (unknown) (no date) (unknown) (unknown) Initial Vital Signs (units unknown) (unknown) (unknown) (no date) (unknown) (unknown) Initial Vital Signs: (units unknown) (unknown) (unknown) (no date) (unknown) (unknown) [address] [address] (units unknown) (unknown) (unknown) (no date) (unknown) (unknown) [facility] (units unknown) (unknown) (unknown) (no date) (unknown) (unknown) Mohan Patterson (units unknown) (unknown) (unknown) (no date) (unknown) (unknown) Lab Data (units unknown) (unknown) (unknown) (no date) (unknown) (unknown) Labs: (units unknown) (unknown) (unknown) (no date) (unknown) (unknown) Launch?Image (units unknown) (unknown) (unknown) (no date) (unknown) (unknown) Limitations: no limitations (units unknown) (unknown) (unknown) (no date) (unknown) (unknown) Loc: ED (units unknown) (unknown) (unknown) (no date) (unknown) (unknown) Lumbar Spine CT (Signed) (units unknown) (unknown) (unknown) (no date) (unknown) (unknown) Lumigan 0.01 % Drops (units unknown) (unknown) (unknown) (no date) (unknown) (unknown) MDM - Fall (units unknown) (unknown) (unknown) (no date) (unknown) (unknown) MR#: [id number] (units unknown) (unknown) (unknown) (no date) (unknown) (unknown) Medical History (units unknown) (unknown) (unknown) (no date) (unknown) (unknown) Medication Instructions Recorded Confirmed (units unknown) (unknown) (unknown) (no date) (unknown) (unknown) Medication Instructions Recorded (units unknown) (unknown) (unknown) (no date) (unknown) (unknown) Mild osteoarthritic changes of the hips. (units unknown) (unknown) (unknown) (no date) (unknown) (unknown) Miscellaneous,Doctor , [Primary Care Provider] (units unknown) (unknown) (unknown) (no date) (unknown) (unknown) Mode of arrival: Wheelchair (units unknown) (unknown) (unknown) (no date) (unknown) (unknown) Mother Cancer (units unknown) (unknown) (unknown) (no date) (unknown) (unknown) No Action (units unknown) (unknown) (unknown) (no date) (unknown) (unknown) No Known Drug Allergies Allergy Verified 12/25/22 11:32 (units unknown) (unknown) (unknown) (no date) (unknown) (unknown) No fracture. (units unknown) (unknown) (unknown) (no date) (unknown) (unknown) Ordered: (units unknown) (unknown) (unknown) (no date) (unknown) (unknown) Ordering Provider: Natalie Hernandez D.O. (units unknown) (unknown) (unknown) (no date) (unknown) (unknown) Orders (units unknown) (unknown) (unknown) (no date) (unknown) (unknown) Osteoporosis (units unknown) (unknown) (unknown) (no date) (unknown) (unknown) Oxygen Delivery Method Room Air 12/25/22 11:30 (units unknown) (unknown) (unknown) (no date) (unknown) (unknown) Oxygen Delivery Method Room Air (units unknown) (unknown) (unknown) (no date) (unknown) (unknown) PROCEDURE:? XR HIP W PEL IF DONE LT 2V (units unknown) (unknown) (unknown) (no date) (unknown) (unknown) Millicent Renee (units unknown) (unknown) (unknown) (no date) (unknown) (unknown) Patient History (units unknown) (unknown) (unknown) (no date) (unknown) (unknown) Patient: Jonny Neely MR#: [id number] (units unknown) (unknown) (unknown) (no date) (unknown) (unknown) Patient: Jonny Neely (units unknown) (unknown) (unknown) (no date) (unknown) (unknown) Prescriptions: (units unknown) (unknown) (unknown) (no date) (unknown) (unknown) Previous Rx's (units unknown) (unknown) (unknown) (no date) (unknown) (unknown) Procedure: XR hip w pel if done LT 2V (units unknown) (unknown) (unknown) (no date) (unknown) (unknown) Pulse Oximetry 100 12/25/22 11:30 (units unknown) (unknown) (unknown) (no date) (unknown) (unknown) Pulse Oximetry 100 (units unknown) (unknown) (unknown) (no date) (unknown) (unknown) Pulse Rate 72 12/25/22 11:30 (units unknown) (unknown) (unknown) (no date) (unknown) (unknown) Pulse Rate 72 (units unknown) (unknown) (unknown) (no date) (unknown) (unknown) ROS Unobtainable: All systems reviewed + are unremarkable except as noted in HPI (units unknown) (unknown) (unknown) (no date) (unknown) (unknown) Radiologist's Impression: (units unknown) (unknown) (unknown) (no date) (unknown) (unknown) Referrals: (units unknown) (unknown) (unknown) (no date) (unknown) (unknown) Related Data (units unknown) (unknown) (unknown) (no date) (unknown) (unknown) Respiratory Rate 16 12/25/22 11:30 (units unknown) (unknown) (unknown) (no date) (unknown) (unknown) Respiratory Rate 16 (units unknown) (unknown) (unknown) (no date) (unknown) (unknown) Review of Systems (units unknown) (unknown) (unknown) (no date) (unknown) (unknown) Perico Sánchez (units unknown) (unknown) (unknown) (no date) (unknown) (unknown) Sukumar Perez (units unknown) (unknown) (unknown) (no date) (unknown) (unknown) Rx Instructions: (units unknown) (unknown) (unknown) (no date) (unknown) (unknown) Signed By: (units unknown) (unknown) (unknown) (no date) (unknown) (unknown) Signed (units unknown) (unknown) (unknown) (no date) (unknown) (unknown) Smoking Status: Never smoker (units unknown) (unknown) (unknown) (no date) (unknown) (unknown) Social History (units unknown) (unknown) (unknown) (no date) (unknown) (unknown) Soft tissues:? No suspicious soft tissue calcifications or masses.? (units unknown) (unknown) (unknown) (no date) (unknown) (unknown) Source: patient (units unknown) (unknown) (unknown) (no date) (unknown) (unknown) Stated Complaint: extreme low back/hip pain left leg (units unknown) (unknown) (unknown) (no date) (unknown) (unknown) Jonny Neely??87? ?M??1935 (units unknown) (unknown) (unknown) (no date) (unknown) (unknown) Substance Use Type: does not use and prescription drug (units unknown) (unknown) (unknown) (no date) (unknown) (unknown) Surgical History (units unknown) (unknown) (unknown) (no date) (unknown) (unknown) TECHNIQUE:? 2 views of the hip were acquired.? (units unknown) (unknown) (unknown) (no date) (unknown) (unknown) Telemetry Strips (units unknown) (unknown) (unknown) (no date) (unknown) (unknown) Temperature 97.8 F 12/25/22 11:30 (units unknown) (unknown) (unknown) (no date) (unknown) (unknown) Temperature 97.8 F (units unknown) (unknown) (unknown) (no date) (unknown) (unknown) Time Seen by Provider: 12/25/22 13:26 (units unknown) (unknown) (unknown) (no date) (unknown) (unknown) Urinalysis and Microscopic Stat (units unknown) (unknown) (unknown) (no date) (unknown) (unknown) Urine Dip (units unknown) (unknown) (unknown) (no date) (unknown) (unknown) Urine Specific [place] 1.010 (units unknown) (unknown) (unknown) (no date) (unknown) (unknown) Vital Signs - 8 hr (units unknown) (unknown) (unknown) (no date) (unknown) (unknown) Vital Signs (units unknown) (unknown) (unknown) (no date) (unknown) (unknown) Vital signs: (units unknown) (unknown) (unknown) (no date) (unknown) (unknown) [place] (units unknown) (unknown) (unknown) (no date) (unknown) (unknown) XR hip w pel if done LT 2V Stat (units unknown) (unknown) (unknown) (no date) (unknown) (unknown) XRay Report (units unknown) (unknown) (unknown) (no date) (unknown) (unknown) Xarelto 20 mg Tablet (units unknown) (unknown) (unknown) (no date) (unknown) (unknown) alcohol intake frequency: 0-2 drinks per day (units unknown) (unknown) (unknown) (no date) (unknown) (unknown) alcohol intake: current (units unknown) (unknown) (unknown) (no date) (unknown) (unknown) and below (units unknown) (unknown) (unknown) (no date) (unknown) (unknown) bimatoprost 0.01 % eye drops 1 drp ophthalmic (eye) DAILY 10/24/22 10/24/22 (units unknown) (unknown) (unknown) (no date) (unknown) (unknown) bupropion HCl 150 mg Tablet Sustained-Release 12 Hr (units unknown) (unknown) (unknown) (no date) (unknown) (unknown) bupropion HCl 150 mg tablet,12 hr 150 mg PO BID 10/24/22 10/24/22 (units unknown) (unknown) (unknown) (no date) (unknown) (unknown) capsule,extended release 24 hr (units unknown) (unknown) (unknown) (no date) (unknown) (unknown) diltiazem HCl 240 mg 240 mg PO DAILY 10/24/22 10/24/22 (units unknown) (unknown) (unknown) (no date) (unknown) (unknown) diltiazem HCl 240 mg Capsule,Extended Release 24hr (units unknown) (unknown) (unknown) (no date) (unknown) (unknown) dorzolamide 22.3 mg-timolol 6.8 1 drp ophthalmic (eye) DAILY 10/24/22 10/24/22 (units unknown) (unknown) (unknown) (no date) (unknown) (unknown) dorzolamide-timolol 22.3-6.8 mg/mL Drops (units unknown) (unknown) (unknown) (no date) (unknown) (unknown) ea (units unknown) (unknown) (unknown) (no date) (unknown) (unknown) finasteride 5 mg Tablet (units unknown) (unknown) (unknown) (no date) (unknown) (unknown) finasteride 5 mg tablet 5 mg PO DAILY 10/24/22 10/24/22 (units unknown) (unknown) (unknown) (no date) (unknown) (unknown) formation. (units unknown) (unknown) (unknown) (no date) (unknown) (unknown) gabapentin 400 mg capsule 400 mg PO TID #30 caps 12/04/22 (units unknown) (unknown) (unknown) (no date) (unknown) (unknown) gabapentin 400 mg capsule (units unknown) (unknown) (unknown) (no date) (unknown) (unknown) household members: none and other (units unknown) (unknown) (unknown) (no date) (unknown) (unknown) leave on most painful area for up to 12 hrs (units unknown) (unknown) (unknown) (no date) (unknown) (unknown) lidocaine 5 % adhesive patch,medicated (units unknown) (unknown) (unknown) (no date) (unknown) (unknown) lidocaine 5 % topical patch 1 patch topical DAILY PRN pain #30 12/04/22 (units unknown) (unknown) (unknown) (no date) (unknown) (unknown) mg/mL eye drops (units unknown) (unknown) (unknown) (no date) (unknown) (unknown) must administer with evening meal (units unknown) (unknown) (unknown) (no date) (unknown) (unknown) omeprazole 20 mg Capsule,Delayed Release(Dr/Ec) (units unknown) (unknown) (unknown) (no date) (unknown) (unknown) omeprazole 20 mg capsule,delayed 20 mg PO DAILY 10/24/22 10/24/22 (units unknown) (unknown) (unknown) (no date) (unknown) (unknown) release (units unknown) (unknown) (unknown) (no date) (unknown) (unknown) right eye (units unknown) (unknown) (unknown) (no date) (unknown) (unknown) ring appears intact.? Mild sclerosis of the acetabulum with osteophyte (units unknown) (unknown) (unknown) (no date) (unknown) (unknown) rivaroxaban 20 mg tablet (Xarelto) 20 mg PO QPM 10/24/22 10/24/22 (units unknown) (unknown) (unknown) (no date) (unknown) (unknown) sustained-release (units unknown) (unknown) (unknown) (no date) (unknown) (unknown) tamsulosin 0.4 mg Capsule (units unknown) (unknown) (unknown) (no date) (unknown) (unknown) tamsulosin 0.4 mg capsule 0.4 mg PO BEDTIME 10/24/22 10/24/22 (units unknown) (unknown) (unknown) (no date) (unknown) (unknown) topical ointment (units unknown) (unknown) (unknown) (no date) (unknown) (unknown) tramadol 50 mg tablet 50 mg PO Q8H PRN pain #10 tabs 12/04/22 (units unknown) (unknown) (unknown) (no date) (unknown) (unknown) tramadol 50 mg tablet (units unknown) (unknown) (unknown) (no date) (unknown) (unknown) triamcinolone acetonide 0.1 % 1 applic topical DAILY PRN Dry Skin 10/24/22 (units unknown) (unknown) (unknown) (no date) (unknown) (unknown) triamcinolone acetonide 0.1 % Ointment (units unknown) (unknown) (unknown) (no date) (unknown) (unknown) visualized pelvic (units unknown) (unknown) (unknown) (no date) (unknown) (unknown) vitamin B complex (B 1 tab PO DAILY 10/24/22 10/24/22 (units unknown) (unknown) (unknown) (no date) (unknown) (unknown) vitamin B complex [B Complex-Vitamin B12] Tablet (units unknown) (unknown) Result panel 107 (unknown) (no date) (unknown) (unknown) (no value) (units unknown) (unknown) (unknown) (no date) (unknown) (unknown) (Lumigan) (units unknown) (unknown) (unknown) (no date) (unknown) (unknown) 0.2 e.u./dl (unknown) (unknown) (no date) (unknown) (unknown) 0.4 mg PO BEDTIME (units unknown) (unknown) (unknown) (no date) (unknown) (unknown) 10/24/22 (units unknown) (unknown) (unknown) (no date) (unknown) (unknown) 12/04/22 (units unknown) (unknown) (unknown) (no date) (unknown) (unknown) 12/25/22 11:32 (units unknown) (unknown) (unknown) (no date) (unknown) (unknown) 12/25/22 13:25 (units unknown) (unknown) (unknown) (no date) (unknown) (unknown) 12/25/22 (units unknown) (unknown) (unknown) (no date) (unknown) (unknown) [id number] (units unknown) (unknown) (unknown) (no date) (unknown) (unknown) 1 applic TOPICAL DAILY PRN (Reason: Dry Skin) (units unknown) (unknown) (unknown) (no date) (unknown) (unknown) 1 drp OPHTHALMIC (EYE) DAILY (units unknown) (unknown) (unknown) (no date) (unknown) (unknown) 1 patch topical DAILY PRN (Reason: pain) Qty: 30 0RF (units unknown) (unknown) (unknown) (no date) (unknown) (unknown) 1 tab PO DAILY (units unknown) (unknown) (unknown) (no date) (unknown) (unknown) 1 (units unknown) (unknown) (unknown) (no date) (unknown) (unknown) 1.010 (units unknown) (unknown) (unknown) (no date) (unknown) (unknown) 11:30 (units unknown) (unknown) (unknown) (no date) (unknown) (unknown) 10/07/22 (units unknown) (unknown) (unknown) (no date) (unknown) (unknown) [address] [place] [address] (units unknown) (unknown) (unknown) (no date) (unknown) (unknown) 150 mg PO BID (units unknown) (unknown) (unknown) (no date) (unknown) (unknown) 20 mg PO DAILY (units unknown) (unknown) (unknown) (no date) (unknown) (unknown) 20 mg PO QPM (units unknown) (unknown) (unknown) (no date) (unknown) (unknown) 240 mg PO DAILY (units unknown) (unknown) (unknown) (no date) (unknown) (unknown) 400 mg PO TID Qty: 30 0RF (units unknown) (unknown) (unknown) (no date) (unknown) (unknown) 5 mg PO DAILY (units unknown) (unknown) (unknown) (no date) (unknown) (unknown) 5.5 (units unknown) (unknown) (unknown) (no date) (unknown) (unknown) 50 mg PO Q8H PRN (Reason: pain) Qty: 10 0RF (units unknown) (unknown) (unknown) (no date) (unknown) (unknown) ? (units unknown) (unknown) (unknown) (no date) (unknown) (unknown) ? (units unknown) (unknown) (unknown) (no date) (unknown) (unknown) Accession Number: [id number] ?? (units unknown) (unknown) (unknown) (no date) (unknown) (unknown) Acct:[id number] (units unknown) (unknown) (unknown) (no date) (unknown) (unknown) Age/Sex: 87 / M (units unknown) (unknown) (unknown) (no date) (unknown) (unknown) Allergies (units unknown) (unknown) (unknown) (no date) (unknown) (unknown) Allergy/Adv: No Known Drug Allergies (units unknown) (unknown) (unknown) (no date) (unknown) (unknown) Allergy/AdvReac Type Severity Reaction Status Date / Time (units unknown) (unknown) (unknown) (no date) (unknown) (unknown) [place] [address] (units unknown) (unknown) (unknown) (no date) (unknown) (unknown) Approved by: Sukumar Perez M.D. on 12/25/2022 at 11:03?? (units unknown) (unknown) (unknown) (no date) (unknown) (unknown) BPH (benign prostatic hyperplasia) (units unknown) (unknown) (unknown) (no date) (unknown) (unknown) Bedside Urine Bilirubin - Negative (units unknown) (unknown) (unknown) (no date) (unknown) (unknown) Bedside Urine Glucose Negative (units unknown) (unknown) (unknown) (no date) (unknown) (unknown) Bedside Urine Ketone - Negative (units unknown) (unknown) (unknown) (no date) (unknown) (unknown) Bedside Urine Leukocytes - Negative (units unknown) (unknown) (unknown) (no date) (unknown) (unknown) Bedside Urine Nitrite - Negative (units unknown) (unknown) (unknown) (no date) (unknown) (unknown) Bedside Urine Occult Blood (units unknown) (unknown) (unknown) (no date) (unknown) (unknown) Bedside Urine Protein - Negative (units unknown) (unknown) (unknown) (no date) (unknown) (unknown) Bedside Urine Urobilinogen - Negative (units unknown) (unknown) (unknown) (no date) (unknown) (unknown) Bedside Urine pH 6.0 (units unknown) (unknown) (unknown) (no date) (unknown) (unknown) Blood Pressure 117/69 12/25/22 11:30 (units unknown) (unknown) (unknown) (no date) (unknown) (unknown) Blood Pressure 117/69 (units unknown) (unknown) (unknown) (no date) (unknown) (unknown) Bones:? No fractures or dislocations.? No suspicious bony lesions.? The (units unknown) (unknown) (unknown) (no date) (unknown) (unknown) CLEAR (units unknown) (unknown) (unknown) (no date) (unknown) (unknown) COMPARISON:? None. (units unknown) (unknown) (unknown) (no date) (unknown) (unknown) Cervical Spine CT (Signed) (units unknown) (unknown) (unknown) (no date) (unknown) (unknown) Chest X-Ray (Signed) (units unknown) (unknown) (unknown) (no date) (unknown) (unknown) Chest/Abdomen/Pelvis CT (Signed) (units unknown) (unknown) (unknown) (no date) (unknown) (unknown) Chief Complaint: Fall (units unknown) (unknown) (unknown) (no date) (unknown) (unknown) Chronic anticoagulation (units unknown) (unknown) (unknown) (no date) (unknown) (unknown) Close (units unknown) (unknown) (unknown) (no date) (unknown) (unknown) Complex-Vitamin B12 tablet) (units unknown) (unknown) (unknown) (no date) (unknown) (unknown) Course (units unknown) (unknown) (unknown) (no date) (unknown) (unknown) : 1935 Acct:[id number] (units unknown) (unknown) (unknown) (no date) (unknown) (unknown) : 1935 (units unknown) (unknown) (unknown) (no date) (unknown) (unknown) Date of Service: 12/25/22 (units unknown) (unknown) (unknown) (no date) (unknown) (unknown) Departure (units unknown) (unknown) (unknown) (no date) (unknown) (unknown) Dictated by: Sukumar Perez M.D. on 12/25/2022 at 11:02 ? ? (units unknown) (unknown) (unknown) (no date) (unknown) (unknown) Discharge Plan (units unknown) (unknown) (unknown) (no date) (unknown) (unknown) ED Orders (units unknown) (unknown) (unknown) (no date) (unknown) (unknown) ER Physician: Natalie Hernandez D.O. (units unknown) (unknown) (unknown) (no date) (unknown) (unknown) Echocardiogram Ultrasound (Signed) (units unknown) (unknown) (unknown) (no date) (unknown) (unknown) Emergency Report (units unknown) (unknown) (unknown) (no date) (unknown) (unknown) Esterase (units unknown) (unknown) (unknown) (no date) (unknown) (unknown) Exam (units unknown) (unknown) (unknown) (no date) (unknown) (unknown) Extremity x-ray #1: (units unknown) (unknown) (unknown) (no date) (unknown) (unknown) FINDINGS:? (units unknown) (unknown) (unknown) (no date) (unknown) (unknown) Family History (units unknown) (unknown) (unknown) (no date) (unknown) (unknown) Father No problems noted. (units unknown) (unknown) (unknown) (no date) (unknown) (unknown) General (units unknown) (unknown) (unknown) (no date) (unknown) (unknown) HPI - Fall (units unknown) (unknown) (unknown) (no date) (unknown) (unknown) Head CT (Signed) (units unknown) (unknown) (unknown) (no date) (unknown) (unknown) Hip X-Ray (Signed) (units unknown) (unknown) (unknown) (no date) (unknown) (unknown) History of permanent cardiac pacemaker placement (units unknown) (unknown) (unknown) (no date) (unknown) (unknown) Home Medications (units unknown) (unknown) (unknown) (no date) (unknown) (unknown) IMPRESSION:? (units unknown) (unknown) (unknown) (no date) (unknown) (unknown) INDICATIONS:? fall , left hip pain (units unknown) (unknown) (unknown) (no date) (unknown) (unknown) Imaging Data (units unknown) (unknown) (unknown) (no date) (unknown) (unknown) Initial Vital Signs (units unknown) (unknown) (unknown) (no date) (unknown) (unknown) Initial Vital Signs: (units unknown) (unknown) (unknown) (no date) (unknown) (unknown) [address] [address] (units unknown) (unknown) (unknown) (no date) (unknown) (unknown) [facility] (units unknown) (unknown) (unknown) (no date) (unknown) (unknown) Mohan Patterson (units unknown) (unknown) (unknown) (no date) (unknown) (unknown) Lab Data (units unknown) (unknown) (unknown) (no date) (unknown) (unknown) Labs: (units unknown) (unknown) (unknown) (no date) (unknown) (unknown) Launch?Image (units unknown) (unknown) (unknown) (no date) (unknown) (unknown) Limitations: no limitations (units unknown) (unknown) (unknown) (no date) (unknown) (unknown) Loc: ED (units unknown) (unknown) (unknown) (no date) (unknown) (unknown) Lumbar Spine CT (Signed) (units unknown) (unknown) (unknown) (no date) (unknown) (unknown) [place] 0.01 % Drops (units unknown) (unknown) (unknown) (no date) (unknown) (unknown) MDM - Fall (units unknown) (unknown) (unknown) (no date) (unknown) (unknown) MR#: [id number] (units unknown) (unknown) (unknown) (no date) (unknown) (unknown) Medical History (units unknown) (unknown) (unknown) (no date) (unknown) (unknown) Medication Instructions Recorded Confirmed (units unknown) (unknown) (unknown) (no date) (unknown) (unknown) Medication Instructions Recorded (units unknown) (unknown) (unknown) (no date) (unknown) (unknown) Mild osteoarthritic changes of the hips. (units unknown) (unknown) (unknown) (no date) (unknown) (unknown) Miscellaneous,Doctor , [Primary Care Provider] (units unknown) (unknown) (unknown) (no date) (unknown) (unknown) Mode of arrival: Wheelchair (units unknown) (unknown) (unknown) (no date) (unknown) (unknown) Mother Cancer (units unknown) (unknown) (unknown) (no date) (unknown) (unknown) NEGATIVE (units unknown) (unknown) (unknown) (no date) (unknown) (unknown) NEGATIVE g/dl (unknown) (unknown) (no date) (unknown) (unknown) No Action (units unknown) (unknown) (unknown) (no date) (unknown) (unknown) No Known Drug Allergies Allergy Verified 12/25/22 11:32 (units unknown) (unknown) (unknown) (no date) (unknown) (unknown) No fracture. (units unknown) (unknown) (unknown) (no date) (unknown) (unknown) Ordered: (units unknown) (unknown) (unknown) (no date) (unknown) (unknown) Ordering Provider: Natalie Hernandez D.O. (units unknown) (unknown) (unknown) (no date) (unknown) (unknown) Orders (units unknown) (unknown) (unknown) (no date) (unknown) (unknown) Osteoporosis (units unknown) (unknown) (unknown) (no date) (unknown) (unknown) Oxygen Delivery Method Room Air 12/25/22 11:30 (units unknown) (unknown) (unknown) (no date) (unknown) (unknown) Oxygen Delivery Method Room Air (units unknown) (unknown) (unknown) (no date) (unknown) (unknown) PROCEDURE:? XR HIP W PEL IF DONE LT 2V (units unknown) (unknown) (unknown) (no date) (unknown) (unknown) Mill[place] Renee (units unknown) (unknown) (unknown) (no date) (unknown) (unknown) Patient History (units unknown) (unknown) (unknown) (no date) (unknown) (unknown) Patient: Jonny Neely MR#: [id number] (units unknown) (unknown) (unknown) (no date) (unknown) (unknown) Patient: Jonny Neely (units unknown) (unknown) (unknown) (no date) (unknown) (unknown) Prescriptions: (units unknown) (unknown) (unknown) (no date) (unknown) (unknown) Previous Rx's (units unknown) (unknown) (unknown) (no date) (unknown) (unknown) Procedure: XR hip w pel if done LT 2V (units unknown) (unknown) (unknown) (no date) (unknown) (unknown) Pulse Oximetry 100 12/25/22 11:30 (units unknown) (unknown) (unknown) (no date) (unknown) (unknown) Pulse Oximetry 100 (units unknown) (unknown) (unknown) (no date) (unknown) (unknown) Pulse Rate 72 12/25/22 11:30 (units unknown) (unknown) (unknown) (no date) (unknown) (unknown) Pulse Rate 72 (units unknown) (unknown) (unknown) (no date) (unknown) (unknown) ROS Unobtainable: All systems reviewed + are unremarkable except as noted in HPI (units unknown) (unknown) (unknown) (no date) (unknown) (unknown) Radiologist's Impression: (units unknown) (unknown) (unknown) (no date) (unknown) (unknown) Referrals: (units unknown) (unknown) (unknown) (no date) (unknown) (unknown) Related Data (units unknown) (unknown) (unknown) (no date) (unknown) (unknown) Respiratory Rate 16 12/25/22 11:30 (units unknown) (unknown) (unknown) (no date) (unknown) (unknown) Respiratory Rate 16 (units unknown) (unknown) (unknown) (no date) (unknown) (unknown) Review of Systems (units unknown) (unknown) (unknown) (no date) (unknown) (unknown) Perico Sánchez (units unknown) (unknown) (unknown) (no date) (unknown) (unknown) Sukumar Perez (units unknown) (unknown) (unknown) (no date) (unknown) (unknown) Rx Instructions: (units unknown) (unknown) (unknown) (no date) (unknown) (unknown) Signed By: (units unknown) (unknown) (unknown) (no date) (unknown) (unknown) Signed (units unknown) (unknown) (unknown) (no date) (unknown) (unknown) Smoking Status: Never smoker (units unknown) (unknown) (unknown) (no date) (unknown) (unknown) Social History (units unknown) (unknown) (unknown) (no date) (unknown) (unknown) Soft tissues:? No suspicious soft tissue calcifications or masses.? (units unknown) (unknown) (unknown) (no date) (unknown) (unknown) Source: patient (units unknown) (unknown) (unknown) (no date) (unknown) (unknown) Stated Complaint: extreme low back/hip pain left leg (units unknown) (unknown) (unknown) (no date) (unknown) (unknown) Jonny Neely??87? ?M??1935 (units unknown) (unknown) (unknown) (no date) (unknown) (unknown) Substance Use Type: does not use and prescription drug (units unknown) (unknown) (unknown) (no date) (unknown) (unknown) Surgical History (units unknown) (unknown) (unknown) (no date) (unknown) (unknown) TECHNIQUE:? 2 views of the hip were acquired.? (units unknown) (unknown) (unknown) (no date) (unknown) (unknown) Telemetry Strips (units unknown) (unknown) (unknown) (no date) (unknown) (unknown) Temperature 97.8 F 12/25/22 11:30 (units unknown) (unknown) (unknown) (no date) (unknown) (unknown) Temperature 97.8 F (units unknown) (unknown) (unknown) (no date) (unknown) (unknown) Time Seen by Provider: 12/25/22 13:26 (units unknown) (unknown) (unknown) (no date) (unknown) (unknown) Urinalysis and Microscopic Stat (units unknown) (unknown) (unknown) (no date) (unknown) (unknown) Urine Dip (units unknown) (unknown) (unknown) (no date) (unknown) (unknown) Urine Specific [place] 1.010 (units unknown) (unknown) (unknown) (no date) (unknown) (unknown) Vital Signs - 8 hr (units unknown) (unknown) (unknown) (no date) (unknown) (unknown) Vital Signs (units unknown) (unknown) (unknown) (no date) (unknown) (unknown) Vital signs: (units unknown) (unknown) (unknown) (no date) (unknown) (unknown) [place] (units unknown) (unknown) (unknown) (no date) (unknown) (unknown) XR hip w pel if done LT 2V Stat (units unknown) (unknown) (unknown) (no date) (unknown) (unknown) XRay Report (units unknown) (unknown) (unknown) (no date) (unknown) (unknown) Xarelto 20 mg Tablet (units unknown) (unknown) (unknown) (no date) (unknown) (unknown) YELLOW (units unknown) (unknown) (unknown) (no date) (unknown) (unknown) YELLOW (units unknown) (unknown) (unknown) (no date) (unknown) (unknown) alcohol intake frequency: 0-2 drinks per day (units unknown) (unknown) (unknown) (no date) (unknown) (unknown) alcohol intake: current (units unknown) (unknown) (unknown) (no date) (unknown) (unknown) and below (units unknown) (unknown) (unknown) (no date) (unknown) (unknown) bimatoprost 0.01 % eye drops 1 drp ophthalmic (eye) DAILY 10/24/22 10/24/22 (units unknown) (unknown) (unknown) (no date) (unknown) (unknown) bupropion HCl 150 mg Tablet Sustained-Release 12 Hr (units unknown) (unknown) (unknown) (no date) (unknown) (unknown) bupropion HCl 150 mg tablet,12 hr 150 mg PO BID 10/24/22 10/24/22 (units unknown) (unknown) (unknown) (no date) (unknown) (unknown) capsule,extended release 24 hr (units unknown) (unknown) (unknown) (no date) (unknown) (unknown) diltiazem HCl 240 mg 240 mg PO DAILY 10/24/22 10/24/22 (units unknown) (unknown) (unknown) (no date) (unknown) (unknown) diltiazem HCl 240 mg Capsule,Extended Release 24hr (units unknown) (unknown) (unknown) (no date) (unknown) (unknown) dorzolamide 22.3 mg-timolol 6.8 1 drp ophthalmic (eye) DAILY 10/24/22 10/24/22 (units unknown) (unknown) (unknown) (no date) (unknown) (unknown) dorzolamide-timolol 22.3-6.8 mg/mL Drops (units unknown) (unknown) (unknown) (no date) (unknown) (unknown) ea (units unknown) (unknown) (unknown) (no date) (unknown) (unknown) finasteride 5 mg Tablet (units unknown) (unknown) (unknown) (no date) (unknown) (unknown) finasteride 5 mg tablet 5 mg PO DAILY 10/24/22 10/24/22 (units unknown) (unknown) (unknown) (no date) (unknown) (unknown) formation. (units unknown) (unknown) (unknown) (no date) (unknown) (unknown) gabapentin 400 mg capsule 400 mg PO TID #30 caps 12/04/22 (units unknown) (unknown) (unknown) (no date) (unknown) (unknown) gabapentin 400 mg capsule (units unknown) (unknown) (unknown) (no date) (unknown) (unknown) household members: none and other (units unknown) (unknown) (unknown) (no date) (unknown) (unknown) leave on most painful area for up to 12 hrs (units unknown) (unknown) (unknown) (no date) (unknown) (unknown) lidocaine 5 % adhesive patch,medicated (units unknown) (unknown) (unknown) (no date) (unknown) (unknown) lidocaine 5 % topical patch 1 patch topical DAILY PRN pain #30 12/04/22 (units unknown) (unknown) (unknown) (no date) (unknown) (unknown) mg/mL eye drops (units unknown) (unknown) (unknown) (no date) (unknown) (unknown) must administer with evening meal (units unknown) (unknown) (unknown) (no date) (unknown) (unknown) omeprazole 20 mg Capsule,Delayed Release(Dr/Ec) (units unknown) (unknown) (unknown) (no date) (unknown) (unknown) omeprazole 20 mg capsule,delayed 20 mg PO DAILY 10/24/22 10/24/22 (units unknown) (unknown) (unknown) (no date) (unknown) (unknown) release (units unknown) (unknown) (unknown) (no date) (unknown) (unknown) right eye (units unknown) (unknown) (unknown) (no date) (unknown) (unknown) ring appears intact.? Mild sclerosis of the acetabulum with osteophyte (units unknown) (unknown) (unknown) (no date) (unknown) (unknown) rivaroxaban 20 mg tablet (Xarelto) 20 mg PO QPM 10/24/22 10/24/22 (units unknown) (unknown) (unknown) (no date) (unknown) (unknown) sustained-release (units unknown) (unknown) (unknown) (no date) (unknown) (unknown) tamsulosin 0.4 mg Capsule (units unknown) (unknown) (unknown) (no date) (unknown) (unknown) tamsulosin 0.4 mg capsule 0.4 mg PO BEDTIME 10/24/22 10/24/22 (units unknown) (unknown) (unknown) (no date) (unknown) (unknown) topical ointment (units unknown) (unknown) (unknown) (no date) (unknown) (unknown) tramadol 50 mg tablet 50 mg PO Q8H PRN pain #10 tabs 12/04/22 (units unknown) (unknown) (unknown) (no date) (unknown) (unknown) tramadol 50 mg tablet (units unknown) (unknown) (unknown) (no date) (unknown) (unknown) triamcinolone acetonide 0.1 % 1 applic topical DAILY PRN Dry Skin 10/24/22 (units unknown) (unknown) (unknown) (no date) (unknown) (unknown) triamcinolone acetonide 0.1 % Ointment (units unknown) (unknown) (unknown) (no date) (unknown) (unknown) visualized pelvic (units unknown) (unknown) (unknown) (no date) (unknown) (unknown) vitamin B complex (B 1 tab PO DAILY 10/24/22 10/24/22 (units unknown) (unknown) (unknown) (no date) (unknown) (unknown) vitamin B complex [B Complex-Vitamin B12] Tablet (units unknown) (unknown) Result panel 108 (unknown) (no date) (unknown) (unknown) 0-1 /HPF (units unknown) (unknown) (unknown) (no date) (unknown) (unknown) 0-1/HPF (units unknown) (unknown) (unknown) (no date) (unknown) (unknown) 0.2 e.u./dl (unknown) (unknown) (no date) (unknown) (unknown) 1 (units unknown) (unknown) (unknown) (no date) (unknown) (unknown) 1.010 (units unknown) (unknown) (unknown) (no date) (unknown) (unknown) 5-10/HPF (units unknown) (unknown) (unknown) (no date) (unknown) (unknown) 5.5 (units unknown) (unknown) (unknown) (no date) (unknown) (unknown) CLEAR (units unknown) (unknown) (unknown) (no date) (unknown) (unknown) Cult Not Indicated (units unknown) (unknown) (unknown) (no date) (unknown) (unknown) NEGATIVE (units unknown) (unknown) (unknown) (no date) (unknown) (unknown) NEGATIVE g/dl (unknown) (unknown) (no date) (unknown) (unknown) None Seen (units unknown) (unknown) (unknown) (no date) (unknown) (unknown) YELLOW (units unknown) (unknown) (unknown) (no date) (unknown) (unknown) YELLOW (units unknown) (unknown) Result panel 109 (unknown) (no date) (unknown) (unknown) (no value) (units unknown) (unknown) (unknown) (no date) (unknown) (unknown) [id number] (units unknown) (unknown) (unknown) (no date) (unknown) (unknown) 12/25/22 (units unknown) (unknown) (unknown) (no date) (unknown) (unknown) 1. No fracture. (units unknown) (unknown) (unknown) (no date) (unknown) (unknown) [address] [place] [address] (units unknown) (unknown) (unknown) (no date) (unknown) (unknown) 2. Colonic diverticula without evidence of acute diverticulitis. (units unknown) (unknown) (unknown) (no date) (unknown) (unknown) Accession Number: [id number] (units unknown) (unknown) (unknown) (no date) (unknown) (unknown) After the administration of oral contrast, 5 mm thick sections acquired from the (units unknown) (unknown) (unknown) (no date) (unknown) (unknown) Age/Sex: 87 / M Date of Service: (units unknown) (unknown) (unknown) (no date) (unknown) (unknown) [place] [address] (units unknown) (unknown) (unknown) (no date) (unknown) (unknown) Approved by: Sukumar Perez M.D. on 12/25/2022 at 14:17 (units unknown) (unknown) (unknown) (no date) (unknown) (unknown) Bones: No suspicious bony lesions. Pelvic ring and hip joints appear intact. (units unknown) (unknown) (unknown) (no date) (unknown) (unknown) COMPARISON: None. (units unknown) (unknown) (unknown) (no date) (unknown) (unknown) CT Scan Report (units unknown) (unknown) (unknown) (no date) (unknown) (unknown) : 1935 Acct:[id number] (units unknown) (unknown) (unknown) (no date) (unknown) (unknown) Dictated by: Sukumar Perez M.D. on 12/25/2022 at 14:09 (units unknown) (unknown) (unknown) (no date) (unknown) (unknown) FINDINGS: (units unknown) (unknown) (unknown) (no date) (unknown) (unknown) Genitourinary: Bladder wall thickness is normal. (units unknown) (unknown) (unknown) (no date) (unknown) (unknown) IMPRESSION: (units unknown) (unknown) (unknown) (no date) (unknown) (unknown) INDICATIONS: left hip/upper femur pain (units unknown) (unknown) (unknown) (no date) (unknown) (unknown) Iliac (units unknown) (unknown) (unknown) (no date) (unknown) (unknown) Image quality: Excellent. (units unknown) (unknown) (unknown) (no date) (unknown) (unknown) [facility] (units unknown) (unknown) (unknown) (no date) (unknown) (unknown) Loc: ED (units unknown) (unknown) (unknown) (no date) (unknown) (unknown) Miscellaneous: Large fat containing left inguinal hernia. (units unknown) (unknown) (unknown) (no date) (unknown) (unknown) Nodes and vessels: No iliac, pelvic, or inguinal adenopathy by size criteria. (units unknown) (unknown) (unknown) (no date) (unknown) (unknown) Ordering Provider: Natalie Hernandez D.O. (units unknown) (unknown) (unknown) (no date) (unknown) (unknown) PROCEDURE: CT PEL WO CON (units unknown) (unknown) (unknown) (no date) (unknown) (unknown) Patient: Jonny Neely MR#: [id number] (units unknown) (unknown) (unknown) (no date) (unknown) (unknown) Peritoneum and bowel: Bowel loops demonstrate normal wall thickness and (units unknown) (unknown) (unknown) (no date) (unknown) (unknown) Procedure: CT pelvis wo con (units unknown) (unknown) (unknown) (no date) (unknown) (unknown) Signed (units unknown) (unknown) (unknown) (no date) (unknown) (unknown) TECHNIQUE: (units unknown) (unknown) (unknown) (no date) (unknown) (unknown) adjustment (units unknown) (unknown) (unknown) (no date) (unknown) (unknown) caliber. No (units unknown) (unknown) (unknown) (no date) (unknown) (unknown) crests to the symphysis. 5 mm coronal and sagittal reformats were then (units unknown) (unknown) (unknown) (no date) (unknown) (unknown) free fluid or air. Numerous colonic diverticula. (units unknown) (unknown) (unknown) (no date) (unknown) (unknown) iliac (units unknown) (unknown) (unknown) (no date) (unknown) (unknown) of mA and/or kV according to patient size. (units unknown) (unknown) (unknown) (no date) (unknown) (unknown) performed. For (units unknown) (unknown) (unknown) (no date) (unknown) (unknown) radiation dose reduction, the following was used: automated exposure control, (units unknown) (unknown) (unknown) (no date) (unknown) (unknown) vessels demonstrate normal size. (units unknown) (unknown) Result panel 110 (unknown) (no date) (unknown) (unknown) (no value) (units unknown) (unknown) (unknown) (no date) (unknown) (unknown) ([place]) (units unknown) (unknown) (unknown) (no date) (unknown) (unknown) 0.4 mg PO BEDTIME (units unknown) (unknown) (unknown) (no date) (unknown) (unknown) 10/24/22 (units unknown) (unknown) (unknown) (no date) (unknown) (unknown) 12/04/22 (units unknown) (unknown) (unknown) (no date) (unknown) (unknown) 12/25/22 11:32 (units unknown) (unknown) (unknown) (no date) (unknown) (unknown) 12/25/22 13:14 (units unknown) (unknown) (unknown) (no date) (unknown) (unknown) 12/25/22 14:01 (units unknown) (unknown) (unknown) (no date) (unknown) (unknown) 12/25/22 Range/Units (units unknown) (unknown) (unknown) (no date) (unknown) (unknown) 12/25/22 (units unknown) (unknown) (unknown) (no date) (unknown) (unknown) [id number] (units unknown) (unknown) (unknown) (no date) (unknown) (unknown) 1 applic TOPICAL DAILY PRN (Reason: Dry Skin) (units unknown) (unknown) (unknown) (no date) (unknown) (unknown) 1 drp OPHTHALMIC (EYE) DAILY (units unknown) (unknown) (unknown) (no date) (unknown) (unknown) 1 patch topical DAILY PRN (Reason: pain) Qty: 30 0RF (units unknown) (unknown) (unknown) (no date) (unknown) (unknown) 1 tab PO DAILY (units unknown) (unknown) (unknown) (no date) (unknown) (unknown) 11:30 (units unknown) (unknown) (unknown) (no date) (unknown) (unknown) 10/07/22 (units unknown) (unknown) (unknown) (no date) (unknown) (unknown) [address] [place] [address] (units unknown) (unknown) (unknown) (no date) (unknown) (unknown) 13:14 (units unknown) (unknown) (unknown) (no date) (unknown) (unknown) 150 mg PO BID (units unknown) (unknown) (unknown) (no date) (unknown) (unknown) 20 mg PO DAILY (units unknown) (unknown) (unknown) (no date) (unknown) (unknown) 20 mg PO QPM (units unknown) (unknown) (unknown) (no date) (unknown) (unknown) 240 mg PO DAILY (units unknown) (unknown) (unknown) (no date) (unknown) (unknown) 4 extremities moving, cranial nerves II through XII are intact, GCS is 15 (units unknown) (unknown) (unknown) (no date) (unknown) (unknown) 400 mg PO TID Qty: 30 0RF (units unknown) (unknown) (unknown) (no date) (unknown) (unknown) 5 mg PO DAILY (units unknown) (unknown) (unknown) (no date) (unknown) (unknown) 50 mg PO Q8H PRN (Reason: pain) Qty: 10 0RF (units unknown) (unknown) (unknown) (no date) (unknown) (unknown) ? (units unknown) (unknown) (unknown) (no date) (unknown) (unknown) ? (units unknown) (unknown) (unknown) (no date) (unknown) (unknown) ABG/GI: Nontender, soft, normal bowel sounds, no distention, no organomegaly, (units unknown) (unknown) (unknown) (no date) (unknown) (unknown) Accession Number: [id number] ?? (units unknown) (unknown) (unknown) (no date) (unknown) (unknown) Acct:[id number] (units unknown) (unknown) (unknown) (no date) (unknown) (unknown) Age/Sex: 87 / M (units unknown) (unknown) (unknown) (no date) (unknown) (unknown) Allergies (units unknown) (unknown) (unknown) (no date) (unknown) (unknown) Allergy/Adv: No Known Drug Allergies (units unknown) (unknown) (unknown) (no date) (unknown) (unknown) Allergy/AdvReac Type Severity Reaction Status Date / Time (units unknown) (unknown) (unknown) (no date) (unknown) (unknown) [place] [address] (units unknown) (unknown) (unknown) (no date) (unknown) (unknown) Approved by: Sukumar Perez M.D. on 12/25/2022 at 11:03?? (units unknown) (unknown) (unknown) (no date) (unknown) (unknown) BACK: No CVA tenderness, no vertebral tenderness, no step-off's, no crepitus (units unknown) (unknown) (unknown) (no date) (unknown) (unknown) BPH (benign prostatic hyperplasia) (units unknown) (unknown) (unknown) (no date) (unknown) (unknown) Bedside Urine Bilirubin - Negative (units unknown) (unknown) (unknown) (no date) (unknown) (unknown) Bedside Urine Glucose Negative (units unknown) (unknown) (unknown) (no date) (unknown) (unknown) Bedside Urine Ketone - Negative (units unknown) (unknown) (unknown) (no date) (unknown) (unknown) Bedside Urine Leukocytes - Negative (units unknown) (unknown) (unknown) (no date) (unknown) (unknown) Bedside Urine Nitrite - Negative (units unknown) (unknown) (unknown) (no date) (unknown) (unknown) Bedside Urine Occult Blood (units unknown) (unknown) (unknown) (no date) (unknown) (unknown) Bedside Urine Protein - Negative (units unknown) (unknown) (unknown) (no date) (unknown) (unknown) Bedside Urine Urobilinogen - Negative (units unknown) (unknown) (unknown) (no date) (unknown) (unknown) Bedside Urine pH 6.0 (units unknown) (unknown) (unknown) (no date) (unknown) (unknown) Blood Pressure 117/69 12/25/22 11:30 (units unknown) (unknown) (unknown) (no date) (unknown) (unknown) Blood Pressure 117/69 (units unknown) (unknown) (unknown) (no date) (unknown) (unknown) Bones:? No fractures or dislocations.? No suspicious bony lesions.? The (units unknown) (unknown) (unknown) (no date) (unknown) (unknown) COMPARISON:? None. (units unknown) (unknown) (unknown) (no date) (unknown) (unknown) CT LE LT wo con Stat (units unknown) (unknown) (unknown) (no date) (unknown) (unknown) [facility]: Heart sounds are normal, no murmur noted, No JVD. (units unknown) (unknown) (unknown) (no date) (unknown) (unknown) Cervical Spine CT (Signed) (units unknown) (unknown) (unknown) (no date) (unknown) (unknown) Chest X-Ray (Signed) (units unknown) (unknown) (unknown) (no date) (unknown) (unknown) Chest/Abdomen/Pelvis CT (Signed) (units unknown) (unknown) (unknown) (no date) (unknown) (unknown) Chief Complaint: Fall (units unknown) (unknown) (unknown) (no date) (unknown) (unknown) Chronic anticoagulation (units unknown) (unknown) (unknown) (no date) (unknown) (unknown) Close (units unknown) (unknown) (unknown) (no date) (unknown) (unknown) Complex-Vitamin B12 tablet) (units unknown) (unknown) (unknown) (no date) (unknown) (unknown) Course (units unknown) (unknown) (unknown) (no date) (unknown) (unknown) : 1935 Acct:[id number] (units unknown) (unknown) (unknown) (no date) (unknown) (unknown) : 1935 (units unknown) (unknown) (unknown) (no date) (unknown) (unknown) Date of Service: 12/25/22 (units unknown) (unknown) (unknown) (no date) (unknown) (unknown) Departure (units unknown) (unknown) (unknown) (no date) (unknown) (unknown) Dictated by: Sukumar Perez M.D. on 12/25/2022 at 11:02 ? ? (units unknown) (unknown) (unknown) (no date) (unknown) (unknown) Discharge Plan (units unknown) (unknown) (unknown) (no date) (unknown) (unknown) ED Orders (units unknown) (unknown) (unknown) (no date) (unknown) (unknown) ENT: External inspection normal, trachea is midline, TM's are normal no (units unknown) (unknown) (unknown) (no date) (unknown) (unknown) ER Physician: Natalie Hernandez D.O. (units unknown) (unknown) (unknown) (no date) (unknown) (unknown) EXT: Atraumatic, hips are nontender, patient is able to lift his left leg (units unknown) (unknown) (unknown) (no date) (unknown) (unknown) EYES: PERRLA, EOMI (units unknown) (unknown) (unknown) (no date) (unknown) (unknown) Echocardiogram Ultrasound (Signed) (units unknown) (unknown) (unknown) (no date) (unknown) (unknown) Emergency Report (units unknown) (unknown) (unknown) (no date) (unknown) (unknown) Esterase (units unknown) (unknown) (unknown) (no date) (unknown) (unknown) Exam Narrative: (units unknown) (unknown) (unknown) (no date) (unknown) (unknown) Exam (units unknown) (unknown) (unknown) (no date) (unknown) (unknown) Extremity x-ray #1: (units unknown) (unknown) (unknown) (no date) (unknown) (unknown) FINDINGS:? (units unknown) (unknown) (unknown) (no date) (unknown) (unknown) Family History (units unknown) (unknown) (unknown) (no date) (unknown) (unknown) Father No problems noted. (units unknown) (unknown) (unknown) (no date) (unknown) (unknown) GEN: Patient appears in mild distress. (units unknown) (unknown) (unknown) (no date) (unknown) (unknown) General (units unknown) (unknown) (unknown) (no date) (unknown) (unknown) HEAD: No evidence of trauma, no raccoon/Loja sign. (units unknown) (unknown) (unknown) (no date) (unknown) (unknown) HPI - Fall (units unknown) (unknown) (unknown) (no date) (unknown) (unknown) HPI Narrative: (units unknown) (unknown) (unknown) (no date) (unknown) (unknown) He states he was walking out for 2 or 3 days but has increasingly become (units unknown) (unknown) (unknown) (no date) (unknown) (unknown) Head CT (Signed) (units unknown) (unknown) (unknown) (no date) (unknown) (unknown) Hip X-Ray (Signed) (units unknown) (unknown) (unknown) (no date) (unknown) (unknown) History of Present Illness (units unknown) (unknown) (unknown) (no date) (unknown) (unknown) History of permanent cardiac pacemaker placement (units unknown) (unknown) (unknown) (no date) (unknown) (unknown) Home Medications (units unknown) (unknown) (unknown) (no date) (unknown) (unknown) IMPRESSION:? (units unknown) (unknown) (unknown) (no date) (unknown) (unknown) INDICATIONS:? fall , left hip pain (units unknown) (unknown) (unknown) (no date) (unknown) (unknown) Imaging Data (units unknown) (unknown) (unknown) (no date) (unknown) (unknown) Initial Vital Signs (units unknown) (unknown) (unknown) (no date) (unknown) (unknown) Initial Vital Signs: (units unknown) (unknown) (unknown) (no date) (unknown) (unknown) [address] [address] (units unknown) (unknown) (unknown) (no date) (unknown) (unknown) [facility] (units unknown) (unknown) (unknown) (no date) (unknown) (unknown) Mohan Patterson (units unknown) (unknown) (unknown) (no date) (unknown) (unknown) Lab Data (units unknown) (unknown) (unknown) (no date) (unknown) (unknown) Lab Results (units unknown) (unknown) (unknown) (no date) (unknown) (unknown) Labs: (units unknown) (unknown) (unknown) (no date) (unknown) (unknown) Launch?Image (units unknown) (unknown) (unknown) (no date) (unknown) (unknown) Limitations: no limitations (units unknown) (unknown) (unknown) (no date) (unknown) (unknown) Loc: ED (units unknown) (unknown) (unknown) (no date) (unknown) (unknown) Lumbar Spine CT (Signed) (units unknown) (unknown) (unknown) (no date) (unknown) (unknown) [place] 0.01 % Drops (units unknown) (unknown) (unknown) (no date) (unknown) (unknown) MDM - Fall (units unknown) (unknown) (unknown) (no date) (unknown) (unknown) MDM Narrative (units unknown) (unknown) (unknown) (no date) (unknown) (unknown) MR#: [id number] (units unknown) (unknown) (unknown) (no date) (unknown) (unknown) Medical History (units unknown) (unknown) (unknown) (no date) (unknown) (unknown) Medical decision making narrative: (units unknown) (unknown) (unknown) (no date) (unknown) (unknown) Medication Instructions Recorded Confirmed (units unknown) (unknown) (unknown) (no date) (unknown) (unknown) Medication Instructions Recorded (units unknown) (unknown) (unknown) (no date) (unknown) (unknown) Mild osteoarthritic changes of the hips. (units unknown) (unknown) (unknown) (no date) (unknown) (unknown) Miscellaneous,Doctor MD [Primary Care Provider] (units unknown) (unknown) (unknown) (no date) (unknown) (unknown) Mode of arrival: Wheelchair (units unknown) (unknown) (unknown) (no date) (unknown) (unknown) Mother Cancer (units unknown) (unknown) (unknown) (no date) (unknown) (unknown) NECK: Nontender, painless range of motion, trachea midline (units unknown) (unknown) (unknown) (no date) (unknown) (unknown) NEURO: Oriented AOx3, neuro is grossly intact, sensation and motor is normal all (units unknown) (unknown) (unknown) (no date) (unknown) (unknown) Narrative (units unknown) (unknown) (unknown) (no date) (unknown) (unknown) Negative Nexus criteria, there is no midline line tenderness, distracting (units unknown) (unknown) (unknown) (no date) (unknown) (unknown) No Action (units unknown) (unknown) (unknown) (no date) (unknown) (unknown) No Known Drug Allergies Allergy Verified 12/25/22 11:32 (units unknown) (unknown) (unknown) (no date) (unknown) (unknown) No fracture. (units unknown) (unknown) (unknown) (no date) (unknown) (unknown) Ordered: (units unknown) (unknown) (unknown) (no date) (unknown) (unknown) Ordering Provider: Natalie Hernandez D.O. (units unknown) (unknown) (unknown) (no date) (unknown) (unknown) Orders (units unknown) (unknown) (unknown) (no date) (unknown) (unknown) Osteoporosis (units unknown) (unknown) (unknown) (no date) (unknown) (unknown) Oxygen Delivery Method Room Air 12/25/22 11:30 (units unknown) (unknown) (unknown) (no date) (unknown) (unknown) Oxygen Delivery Method Room Air (units unknown) (unknown) (unknown) (no date) (unknown) (unknown) PROCEDURE:? XR HIP W PEL IF DONE LT 2V (units unknown) (unknown) (unknown) (no date) (unknown) (unknown) PSYCH: Normal mood and affect (units unknown) (unknown) (unknown) (no date) (unknown) (unknown) Millicent Renee (units unknown) (unknown) (unknown) (no date) (unknown) (unknown) Patient History (units unknown) (unknown) (unknown) (no date) (unknown) (unknown) Patient has had multiple compression fractures in the past and this probably (units unknown) (unknown) (unknown) (no date) (unknown) (unknown) Patient: Jonny Neely MR#: [id number] (units unknown) (unknown) (unknown) (no date) (unknown) (unknown) Patient: Jonny Neely (units unknown) (unknown) (unknown) (no date) (unknown) (unknown) Prescriptions: (units unknown) (unknown) (unknown) (no date) (unknown) (unknown) Previous Rx's (units unknown) (unknown) (unknown) (no date) (unknown) (unknown) Procedure: XR hip w pel if done LT 2V (units unknown) (unknown) (unknown) (no date) (unknown) (unknown) Pulse Oximetry 100 12/25/22 11:30 (units unknown) (unknown) (unknown) (no date) (unknown) (unknown) Pulse Oximetry 100 (units unknown) (unknown) (unknown) (no date) (unknown) (unknown) Pulse Rate 72 12/25/22 11:30 (units unknown) (unknown) (unknown) (no date) (unknown) (unknown) Pulse Rate 72 (units unknown) (unknown) (unknown) (no date) (unknown) (unknown) RESP: Chest is nontender and has symmetric movement, no ecchymosis, breath (units unknown) (unknown) (unknown) (no date) (unknown) (unknown) ROS Unobtainable: All systems reviewed + are unremarkable except as noted in HPI (units unknown) (unknown) (unknown) (no date) (unknown) (unknown) Radiologist's Impression: (units unknown) (unknown) (unknown) (no date) (unknown) (unknown) Referrals: (units unknown) (unknown) (unknown) (no date) (unknown) (unknown) Related Data (units unknown) (unknown) (unknown) (no date) (unknown) (unknown) Respiratory Rate 16 12/25/22 11:30 (units unknown) (unknown) (unknown) (no date) (unknown) (unknown) Respiratory Rate 16 (units unknown) (unknown) (unknown) (no date) (unknown) (unknown) Review of Systems (units unknown) (unknown) (unknown) (no date) (unknown) (unknown) Perico Sánchez (units unknown) (unknown) (unknown) (no date) (unknown) (unknown) Sukumar Perez (units unknown) (unknown) (unknown) (no date) (unknown) (unknown) Rx Instructions: (units unknown) (unknown) (unknown) (no date) (unknown) (unknown) SKIN: Intact, warm and dry, no crepitus and without decubitus (units unknown) (unknown) (unknown) (no date) (unknown) (unknown) Signed By: (units unknown) (unknown) (unknown) (no date) (unknown) (unknown) Signed (units unknown) (unknown) (unknown) (no date) (unknown) (unknown) Smoking Status: Never smoker (units unknown) (unknown) (unknown) (no date) (unknown) (unknown) Social History (units unknown) (unknown) (unknown) (no date) (unknown) (unknown) Soft tissues:? No suspicious soft tissue calcifications or masses.? (units unknown) (unknown) (unknown) (no date) (unknown) (unknown) Source: patient (units unknown) (unknown) (unknown) (no date) (unknown) (unknown) Stated Complaint: extreme low back/hip pain left leg (units unknown) (unknown) (unknown) (no date) (unknown) (unknown) Jonny Neely??87? ?M??1935 (units unknown) (unknown) (unknown) (no date) (unknown) (unknown) Substance Use Type: does not use and prescription drug (units unknown) (unknown) (unknown) (no date) (unknown) (unknown) Surgical History (units unknown) (unknown) (unknown) (no date) (unknown) (unknown) TECHNIQUE:? 2 views of the hip were acquired.? (units unknown) (unknown) (unknown) (no date) (unknown) (unknown) Telemetry Strips (units unknown) (unknown) (unknown) (no date) (unknown) (unknown) Temperature 97.8 F 12/25/22 11:30 (units unknown) (unknown) (unknown) (no date) (unknown) (unknown) Temperature 97.8 F (units unknown) (unknown) (unknown) (no date) (unknown) (unknown) This is an 87-year-old male who had ground level fall with the trip. Patient (units unknown) (unknown) (unknown) (no date) (unknown) (unknown) This is an 87-year-old male with history of AFib on Xarelto, prior pacemaker (units unknown) (unknown) (unknown) (no date) (unknown) (unknown) Time Seen by Provider: 12/25/22 13:26 (units unknown) (unknown) (unknown) (no date) (unknown) (unknown) Ur Culture Indicated? Cult not indicated (units unknown) (unknown) (unknown) (no date) (unknown) (unknown) Ur Leukocyte Esterase Negative (NEGATIVE) (units unknown) (unknown) (unknown) (no date) (unknown) (unknown) Ur Specific [place] 1.010 (1.000-1.035) (units unknown) (unknown) (unknown) (no date) (unknown) (unknown) Ur Squamous Epith Cells 0-1 /hpf (0-5/HPF) (units unknown) (unknown) (unknown) (no date) (unknown) (unknown) Urinalysis and Microscopic Stat (units unknown) (unknown) (unknown) (no date) (unknown) (unknown) Urine Appearance Clear (units unknown) (unknown) (unknown) (no date) (unknown) (unknown) Urine Bacteria None seen (None) (units unknown) (unknown) (unknown) (no date) (unknown) (unknown) Urine Bilirubin Negative (NEGATIVE) (units unknown) (unknown) (unknown) (no date) (unknown) (unknown) Urine Color Yellow (units unknown) (unknown) (unknown) (no date) (unknown) (unknown) Urine Dip (units unknown) (unknown) (unknown) (no date) (unknown) (unknown) Urine Glucose (UA) Negative (Negative) g/dL (units unknown) (unknown) (unknown) (no date) (unknown) (unknown) Urine Ketones Negative (NEGATIVE) (units unknown) (unknown) (unknown) (no date) (unknown) (unknown) Urine Nitrate Negative (Negative) (units unknown) (unknown) (unknown) (no date) (unknown) (unknown) Urine Occult Blood 1+ H (Negative) (units unknown) (unknown) (unknown) (no date) (unknown) (unknown) Urine Protein Negative (Negative) (units unknown) (unknown) (unknown) (no date) (unknown) (unknown) Urine RBC 5-10/hpf H (0-5/HPF) (units unknown) (unknown) (unknown) (no date) (unknown) (unknown) Urine Specific [place] 1.010 (units unknown) (unknown) (unknown) (no date) (unknown) (unknown) Urine Urobilinogen 0.2 (0.2) E.U./dL (units unknown) (unknown) (unknown) (no date) (unknown) (unknown) Urine WBC 0-1/hpf (0-5/HPF) (units unknown) (unknown) (unknown) (no date) (unknown) (unknown) Urine pH 5.5 (4.5-8.0) (units unknown) (unknown) (unknown) (no date) (unknown) (unknown) Vital Signs - 8 hr (units unknown) (unknown) (unknown) (no date) (unknown) (unknown) Vital Signs (units unknown) (unknown) (unknown) (no date) (unknown) (unknown) Vital signs: (units unknown) (unknown) (unknown) (no date) (unknown) (unknown) [place] (units unknown) (unknown) (unknown) (no date) (unknown) (unknown) XR hip w pel if done LT 2V Stat (units unknown) (unknown) (unknown) (no date) (unknown) (unknown) XRay Report (units unknown) (unknown) (unknown) (no date) (unknown) (unknown) Xarelto 20 mg Tablet (units unknown) (unknown) (unknown) (no date) (unknown) (unknown) airway is normal and with normal occlusion, No bony tenderness, patient does (units unknown) (unknown) (unknown) (no date) (unknown) (unknown) alcohol intake frequency: 0-2 drinks per day (units unknown) (unknown) (unknown) (no date) (unknown) (unknown) alcohol intake: current (units unknown) (unknown) (unknown) (no date) (unknown) (unknown) and below (units unknown) (unknown) (unknown) (no date) (unknown) (unknown) bimatoprost 0.01 % eye drops 1 drp ophthalmic (eye) DAILY 10/24/22 10/24/22 (units unknown) (unknown) (unknown) (no date) (unknown) (unknown) bupropion HCl 150 mg Tablet Sustained-Release 12 Hr (units unknown) (unknown) (unknown) (no date) (unknown) (unknown) bupropion HCl 150 mg tablet,12 hr 150 mg PO BID 10/24/22 10/24/22 (units unknown) (unknown) (unknown) (no date) (unknown) (unknown) capsule,extended release 24 hr (units unknown) (unknown) (unknown) (no date) (unknown) (unknown) diltiazem HCl 240 mg 240 mg PO DAILY 10/24/22 10/24/22 (units unknown) (unknown) (unknown) (no date) (unknown) (unknown) diltiazem HCl 240 mg Capsule,Extended Release 24hr (units unknown) (unknown) (unknown) (no date) (unknown) (unknown) dorzolamide 22.3 mg-timolol 6.8 1 drp ophthalmic (eye) DAILY 10/24/22 10/24/22 (units unknown) (unknown) (unknown) (no date) (unknown) (unknown) dorzolamide-timolol 22.3-6.8 mg/mL Drops (units unknown) (unknown) (unknown) (no date) (unknown) (unknown) ea (units unknown) (unknown) (unknown) (no date) (unknown) (unknown) edema, normal color and temperature, normal range of motion of extremities with (units unknown) (unknown) (unknown) (no date) (unknown) (unknown) fall. Patient had a fall. He states that he tripped losing his balance and (units unknown) (unknown) (unknown) (no date) (unknown) (unknown) falling onto a wooden box. Has pain in his left hip just below the trochanter. (units unknown) (unknown) (unknown) (no date) (unknown) (unknown) finasteride 5 mg Tablet (units unknown) (unknown) (unknown) (no date) (unknown) (unknown) finasteride 5 mg tablet 5 mg PO DAILY 10/24/22 10/24/22 (units unknown) (unknown) (unknown) (no date) (unknown) (unknown) formation. (units unknown) (unknown) (unknown) (no date) (unknown) (unknown) fractures and retropulsed fragments he is had no numbness, tingling or weakness (units unknown) (unknown) (unknown) (no date) (unknown) (unknown) gabapentin 400 mg capsule 400 mg PO TID #30 caps 12/04/22 (units unknown) (unknown) (unknown) (no date) (unknown) (unknown) gabapentin 400 mg capsule (units unknown) (unknown) (unknown) (no date) (unknown) (unknown) have some ecchymosis of the left neck which appears old. (units unknown) (unknown) (unknown) (no date) (unknown) (unknown) he is from prior fall and not from today. He is accompanied by 2 friends who (units unknown) (unknown) (unknown) (no date) (unknown) (unknown) help and caregiver for him intermittently. (units unknown) (unknown) (unknown) (no date) (unknown) (unknown) hemotypanum, Nares are clear, no septal hematoma, no dental or oral injury, (units unknown) (unknown) (unknown) (no date) (unknown) (unknown) household members: none and other (units unknown) (unknown) (unknown) (no date) (unknown) (unknown) in the room. Patient states he did not strike his head he denies neck or back (units unknown) (unknown) (unknown) (no date) (unknown) (unknown) injury, altered mental status, neuro deficit, recent EtOH. (units unknown) (unknown) (unknown) (no date) (unknown) (unknown) leave on most painful area for up to 12 hrs (units unknown) (unknown) (unknown) (no date) (unknown) (unknown) lidocaine 5 % adhesive patch,medicated (units unknown) (unknown) (unknown) (no date) (unknown) (unknown) lidocaine 5 % topical patch 1 patch topical DAILY PRN pain #30 12/04/22 (units unknown) (unknown) (unknown) (no date) (unknown) (unknown) mg/mL eye drops (units unknown) (unknown) (unknown) (no date) (unknown) (unknown) must administer with evening meal (units unknown) (unknown) (unknown) (no date) (unknown) (unknown) normal tendon exam, 2+ pulses in all four extremities (units unknown) (unknown) (unknown) (no date) (unknown) (unknown) omeprazole 20 mg Capsule,Delayed Release(Dr/Ec) (units unknown) (unknown) (unknown) (no date) (unknown) (unknown) omeprazole 20 mg capsule,delayed 20 mg PO DAILY 10/24/22 10/24/22 (units unknown) (unknown) (unknown) (no date) (unknown) (unknown) osteopenic so CT to rule out occult fracture was ordered. Patient did request (units unknown) (unknown) (unknown) (no date) (unknown) (unknown) pain, no chest pain or shortness of breath, no other GI or urinary symptoms no (units unknown) (unknown) (unknown) (no date) (unknown) (unknown) painful. Patient has had chronic back pain with known lumbar compression (units unknown) (unknown) (unknown) (no date) (unknown) (unknown) pelvic rock is negative (units unknown) (unknown) (unknown) (no date) (unknown) (unknown) placement for sick sinus syndrome, history of V-tach presents with ground level (units unknown) (unknown) (unknown) (no date) (unknown) (unknown) release (units unknown) (unknown) (unknown) (no date) (unknown) (unknown) retention, or fecal or urinary incontinence. Patient typically takes Tylenol 3 (units unknown) (unknown) (unknown) (no date) (unknown) (unknown) right eye (units unknown) (unknown) (unknown) (no date) (unknown) (unknown) ring appears intact.? Mild sclerosis of the acetabulum with osteophyte (units unknown) (unknown) (unknown) (no date) (unknown) (unknown) rivaroxaban 20 mg tablet (Xarelto) 20 mg PO QPM 01/15/23 01/15/23 (units unknown) (unknown) (unknown) (no date) (unknown) (unknown) some pain medication Tylenol and tramadol given here in the department. (units unknown) (unknown) (unknown) (no date) (unknown) (unknown) sounds are normal no crackles, wheezes or rales (units unknown) (unknown) (unknown) (no date) (unknown) (unknown) states he is had persistent left hip pain just below the greater trochanter his (units unknown) (unknown) (unknown) (no date) (unknown) (unknown) sustained-release (units unknown) (unknown) (unknown) (no date) (unknown) (unknown) tamsulosin 0.4 mg Capsule (units unknown) (unknown) (unknown) (no date) (unknown) (unknown) tamsulosin 0.4 mg capsule 0.4 mg PO BEDTIME 10/24/22 10/24/22 (units unknown) (unknown) (unknown) (no date) (unknown) (unknown) that he appreciates. He states he is able to lift his leg and is able to do so (units unknown) (unknown) (unknown) (no date) (unknown) (unknown) times daily as well as gabapentin. Patient has some bruising on his neck which (units unknown) (unknown) (unknown) (no date) (unknown) (unknown) topical ointment (units unknown) (unknown) (unknown) (no date) (unknown) (unknown) tramadol 50 mg tablet 50 mg PO Q8H PRN pain #10 tabs 12/04/22 (units unknown) (unknown) (unknown) (no date) (unknown) (unknown) tramadol 50 mg tablet (units unknown) (unknown) (unknown) (no date) (unknown) (unknown) triamcinolone acetonide 0.1 % 1 applic topical DAILY PRN Dry Skin 10/24/22 (units unknown) (unknown) (unknown) (no date) (unknown) (unknown) triamcinolone acetonide 0.1 % Ointment (units unknown) (unknown) (unknown) (no date) (unknown) (unknown) visualized pelvic (units unknown) (unknown) (unknown) (no date) (unknown) (unknown) vitamin B complex (B 1 tab PO DAILY 10/24/22 10/24/22 (units unknown) (unknown) (unknown) (no date) (unknown) (unknown) vitamin B complex [B Complex-Vitamin B12] Tablet (units unknown) (unknown) (unknown) (no date) (unknown) (unknown) without much issue. He does have pain when he tries to weightbear. No pedal (units unknown) (unknown) (unknown) (no date) (unknown) (unknown) x-ray is negative he actually has good movement but is painful to weightbear. (units unknown) (unknown) Result panel 111 (unknown) (no date) (unknown) (unknown) (no value) (units unknown) (unknown) (unknown) (no date) (unknown) (unknown) ([place]) (units unknown) (unknown) (unknown) (no date) (unknown) (unknown) 0.4 mg PO BEDTIME (units unknown) (unknown) (unknown) (no date) (unknown) (unknown) 10/24/22 (units unknown) (unknown) (unknown) (no date) (unknown) (unknown) 12/04/22 (units unknown) (unknown) (unknown) (no date) (unknown) (unknown) 12/25/22 11:32 (units unknown) (unknown) (unknown) (no date) (unknown) (unknown) 12/25/22 13:14 (units unknown) (unknown) (unknown) (no date) (unknown) (unknown) 12/25/22 14:01 (units unknown) (unknown) (unknown) (no date) (unknown) (unknown) 12/25/22 Range/Units (units unknown) (unknown) (unknown) (no date) (unknown) (unknown) 12/25/22 (units unknown) (unknown) (unknown) (no date) (unknown) (unknown) [id number] (units unknown) (unknown) (unknown) (no date) (unknown) (unknown) 1 applic TOPICAL DAILY PRN (Reason: Dry Skin) (units unknown) (unknown) (unknown) (no date) (unknown) (unknown) 1 drp OPHTHALMIC (EYE) DAILY (units unknown) (unknown) (unknown) (no date) (unknown) (unknown) 1 patch topical DAILY PRN (Reason: pain) Qty: 30 0RF (units unknown) (unknown) (unknown) (no date) (unknown) (unknown) 1 tab PO DAILY (units unknown) (unknown) (unknown) (no date) (unknown) (unknown) 1. No fracture. (units unknown) (unknown) (unknown) (no date) (unknown) (unknown) 11:30 (units unknown) (unknown) (unknown) (no date) (unknown) (unknown) 10/07/22 (units unknown) (unknown) (unknown) (no date) (unknown) (unknown) [address] [place] [address] (units unknown) (unknown) (unknown) (no date) (unknown) (unknown) 13:14 (units unknown) (unknown) (unknown) (no date) (unknown) (unknown) 150 mg PO BID (units unknown) (unknown) (unknown) (no date) (unknown) (unknown) 2. Colonic diverticula without evidence of acute diverticulitis.? (units unknown) (unknown) (unknown) (no date) (unknown) (unknown) 20 mg PO DAILY (units unknown) (unknown) (unknown) (no date) (unknown) (unknown) 20 mg PO QPM (units unknown) (unknown) (unknown) (no date) (unknown) (unknown) 240 mg PO DAILY (units unknown) (unknown) (unknown) (no date) (unknown) (unknown) 4 extremities moving, cranial nerves II through XII are intact, GCS is 15 (units unknown) (unknown) (unknown) (no date) (unknown) (unknown) 400 mg PO TID Qty: 30 0RF (units unknown) (unknown) (unknown) (no date) (unknown) (unknown) 5 mg PO DAILY (units unknown) (unknown) (unknown) (no date) (unknown) (unknown) 50 mg PO Q8H PRN (Reason: pain) Qty: 10 0RF (units unknown) (unknown) (unknown) (no date) (unknown) (unknown) ? (units unknown) (unknown) (unknown) (no date) (unknown) (unknown) ? (units unknown) (unknown) (unknown) (no date) (unknown) (unknown) ABG/GI: Nontender, soft, normal bowel sounds, no distention, no organomegaly, (units unknown) (unknown) (unknown) (no date) (unknown) (unknown) Accession Number: [id number] ?? (units unknown) (unknown) (unknown) (no date) (unknown) (unknown) Accession Number: [id number] ?? (units unknown) (unknown) (unknown) (no date) (unknown) (unknown) Acct:[id number] (units unknown) (unknown) (unknown) (no date) (unknown) (unknown) Acetaminophen (Acetaminophen 325 Mg Tablet) 975 mg PO NOW ONE (units unknown) (unknown) (unknown) (no date) (unknown) (unknown) After the administration of oral contrast, 5 mm thick sections acquired from the (units unknown) (unknown) (unknown) (no date) (unknown) (unknown) Age/Sex: 87 / M (units unknown) (unknown) (unknown) (no date) (unknown) (unknown) Allergies (units unknown) (unknown) (unknown) (no date) (unknown) (unknown) Allergy/Adv: No Known Drug Allergies (units unknown) (unknown) (unknown) (no date) (unknown) (unknown) Allergy/AdvReac Type Severity Reaction Status Date / Time (units unknown) (unknown) (unknown) (no date) (unknown) (unknown) [place] [address] (units unknown) (unknown) (unknown) (no date) (unknown) (unknown) Approved by: Sukumar Perez M.D. on 12/25/2022 at 11:03?? (units unknown) (unknown) (unknown) (no date) (unknown) (unknown) Approved by: Sukumar Perez M.D. on 12/25/2022 at 14:17?? (units unknown) (unknown) (unknown) (no date) (unknown) (unknown) BACK: No CVA tenderness, no vertebral tenderness, no step-off's, no crepitus (units unknown) (unknown) (unknown) (no date) (unknown) (unknown) BPH (benign prostatic hyperplasia) (units unknown) (unknown) (unknown) (no date) (unknown) (unknown) Bedside Urine Bilirubin - Negative (units unknown) (unknown) (unknown) (no date) (unknown) (unknown) Bedside Urine Glucose Negative (units unknown) (unknown) (unknown) (no date) (unknown) (unknown) Bedside Urine Ketone - Negative (units unknown) (unknown) (unknown) (no date) (unknown) (unknown) Bedside Urine Leukocytes - Negative (units unknown) (unknown) (unknown) (no date) (unknown) (unknown) Bedside Urine Nitrite - Negative (units unknown) (unknown) (unknown) (no date) (unknown) (unknown) Bedside Urine Occult Blood (units unknown) (unknown) (unknown) (no date) (unknown) (unknown) Bedside Urine Protein - Negative (units unknown) (unknown) (unknown) (no date) (unknown) (unknown) Bedside Urine Urobilinogen - Negative (units unknown) (unknown) (unknown) (no date) (unknown) (unknown) Bedside Urine pH 6.0 (units unknown) (unknown) (unknown) (no date) (unknown) (unknown) Blood Pressure 117/69 12/25/22 11:30 (units unknown) (unknown) (unknown) (no date) (unknown) (unknown) Blood Pressure 117/69 (units unknown) (unknown) (unknown) (no date) (unknown) (unknown) Bones:? No fractures or dislocations.? No suspicious bony lesions.? The (units unknown) (unknown) (unknown) (no date) (unknown) (unknown) Bones:? No suspicious bony lesions.? Pelvic ring and hip joints appear intact.? (units unknown) (unknown) (unknown) (no date) (unknown) (unknown) COMPARISON:? None. (units unknown) (unknown) (unknown) (no date) (unknown) (unknown) CT Left Lower ext: (units unknown) (unknown) (unknown) (no date) (unknown) (unknown) CT Scan Report (units unknown) (unknown) (unknown) (no date) (unknown) (unknown) CT pelvis wo con Stat (units unknown) (unknown) (unknown) (no date) (unknown) (unknown) CVS: Heart sounds are normal, no murmur noted, No JVD. (units unknown) (unknown) (unknown) (no date) (unknown) (unknown) Cervical Spine CT (Signed) (units unknown) (unknown) (unknown) (no date) (unknown) (unknown) Chest X-Ray (Signed) (units unknown) (unknown) (unknown) (no date) (unknown) (unknown) Chest/Abdomen/Pelvis CT (Signed) (units unknown) (unknown) (unknown) (no date) (unknown) (unknown) Chief Complaint: Fall (units unknown) (unknown) (unknown) (no date) (unknown) (unknown) Chronic anticoagulation (units unknown) (unknown) (unknown) (no date) (unknown) (unknown) Close (units unknown) (unknown) (unknown) (no date) (unknown) (unknown) Complex-Vitamin B12 tablet) (units unknown) (unknown) (unknown) (no date) (unknown) (unknown) Course (units unknown) (unknown) (unknown) (no date) (unknown) (unknown) : 1935 Acct:[id number] (units unknown) (unknown) (unknown) (no date) (unknown) (unknown) : 1935 (units unknown) (unknown) (unknown) (no date) (unknown) (unknown) Date of Service: 12/25/22 (units unknown) (unknown) (unknown) (no date) (unknown) (unknown) Departure (units unknown) (unknown) (unknown) (no date) (unknown) (unknown) Dictated by: Sukumar Perez M.D. on 12/25/2022 at 11:02 ? ? (units unknown) (unknown) (unknown) (no date) (unknown) (unknown) Dictated by: Sukumar Perez M.D. on 12/25/2022 at 14:09 ? ? (units unknown) (unknown) (unknown) (no date) (unknown) (unknown) Discharge Plan (units unknown) (unknown) (unknown) (no date) (unknown) (unknown) Discontinued Medications (units unknown) (unknown) (unknown) (no date) (unknown) (unknown) Documented By: SB (units unknown) (unknown) (unknown) (no date) (unknown) (unknown) ED Orders (units unknown) (unknown) (unknown) (no date) (unknown) (unknown) ENT: External inspection normal, trachea is midline, TM's are normal no (units unknown) (unknown) (unknown) (no date) (unknown) (unknown) ER Physician: Natalie Hernandez D.O. (units unknown) (unknown) (unknown) (no date) (unknown) (unknown) EXT: Atraumatic, hips are nontender, patient is able to lift his left leg (units unknown) (unknown) (unknown) (no date) (unknown) (unknown) EYES: PERRLA, EOMI (units unknown) (unknown) (unknown) (no date) (unknown) (unknown) Echocardiogram Ultrasound (Signed) (units unknown) (unknown) (unknown) (no date) (unknown) (unknown) Emergency Report (units unknown) (unknown) (unknown) (no date) (unknown) (unknown) Esterase (units unknown) (unknown) (unknown) (no date) (unknown) (unknown) Exam Narrative: (units unknown) (unknown) (unknown) (no date) (unknown) (unknown) Exam (units unknown) (unknown) (unknown) (no date) (unknown) (unknown) Extremity x-ray #1: (units unknown) (unknown) (unknown) (no date) (unknown) (unknown) FINDINGS:? (units unknown) (unknown) (unknown) (no date) (unknown) (unknown) Family History (units unknown) (unknown) (unknown) (no date) (unknown) (unknown) Father No problems noted. (units unknown) (unknown) (unknown) (no date) (unknown) (unknown) GEN: Patient appears in mild distress. (units unknown) (unknown) (unknown) (no date) (unknown) (unknown) General (units unknown) (unknown) (unknown) (no date) (unknown) (unknown) Genitourinary:? Bladder wall thickness is normal.? (units unknown) (unknown) (unknown) (no date) (unknown) (unknown) HEAD: No evidence of trauma, no raccoon/Loja sign. (units unknown) (unknown) (unknown) (no date) (unknown) (unknown) HPI - Fall (units unknown) (unknown) (unknown) (no date) (unknown) (unknown) HPI Narrative: (units unknown) (unknown) (unknown) (no date) (unknown) (unknown) He states he was walking out for 2 or 3 days but has increasingly become (units unknown) (unknown) (unknown) (no date) (unknown) (unknown) Head CT (Signed) (units unknown) (unknown) (unknown) (no date) (unknown) (unknown) Hip X-Ray (Signed) (units unknown) (unknown) (unknown) (no date) (unknown) (unknown) History of Present Illness (units unknown) (unknown) (unknown) (no date) (unknown) (unknown) History of permanent cardiac pacemaker placement (units unknown) (unknown) (unknown) (no date) (unknown) (unknown) Home Medications (units unknown) (unknown) (unknown) (no date) (unknown) (unknown) IMPRESSION:? (units unknown) (unknown) (unknown) (no date) (unknown) (unknown) INDICATIONS:? fall , left hip pain (units unknown) (unknown) (unknown) (no date) (unknown) (unknown) INDICATIONS:? left hip/upper femur pain (units unknown) (unknown) (unknown) (no date) (unknown) (unknown) Iliac (units unknown) (unknown) (unknown) (no date) (unknown) (unknown) Image quality:? Excellent.? (units unknown) (unknown) (unknown) (no date) (unknown) (unknown) Imaging Data (units unknown) (unknown) (unknown) (no date) (unknown) (unknown) Initial Vital Signs (units unknown) (unknown) (unknown) (no date) (unknown) (unknown) Initial Vital Signs: (units unknown) (unknown) (unknown) (no date) (unknown) (unknown) [address] [address] (units unknown) (unknown) (unknown) (no date) (unknown) (unknown) [facility] (units unknown) (unknown) (unknown) (no date) (unknown) (unknown) Mohan Patterson (units unknown) (unknown) (unknown) (no date) (unknown) (unknown) Lab Data (units unknown) (unknown) (unknown) (no date) (unknown) (unknown) Lab Results (units unknown) (unknown) (unknown) (no date) (unknown) (unknown) Labs: (units unknown) (unknown) (unknown) (no date) (unknown) (unknown) Last Admin: 12/25/22 14:49 Dose: 50 mg (units unknown) (unknown) (unknown) (no date) (unknown) (unknown) Last Admin: 12/25/22 14:49 Dose: 975 mg (units unknown) (unknown) (unknown) (no date) (unknown) (unknown) Launch?Image (units unknown) (unknown) (unknown) (no date) (unknown) (unknown) Limitations: no limitations (units unknown) (unknown) (unknown) (no date) (unknown) (unknown) Loc: ED (units unknown) (unknown) (unknown) (no date) (unknown) (unknown) Lumbar Spine CT (Signed) (units unknown) (unknown) (unknown) (no date) (unknown) (unknown) [place] 0.01 % Drops (units unknown) (unknown) (unknown) (no date) (unknown) (unknown) MDM - Fall (units unknown) (unknown) (unknown) (no date) (unknown) (unknown) MDM Narrative (units unknown) (unknown) (unknown) (no date) (unknown) (unknown) MR#: [id number] (units unknown) (unknown) (unknown) (no date) (unknown) (unknown) Medical History (units unknown) (unknown) (unknown) (no date) (unknown) (unknown) Medical decision making narrative: (units unknown) (unknown) (unknown) (no date) (unknown) (unknown) Medication Instructions Recorded Confirmed (units unknown) (unknown) (unknown) (no date) (unknown) (unknown) Medication Instructions Recorded (units unknown) (unknown) (unknown) (no date) (unknown) (unknown) Mild osteoarthritic changes of the hips. (units unknown) (unknown) (unknown) (no date) (unknown) (unknown) Miscellaneous,Doctor , [Primary Care Provider] (units unknown) (unknown) (unknown) (no date) (unknown) (unknown) Miscellaneous:? Large fat containing left inguinal hernia.? (units unknown) (unknown) (unknown) (no date) (unknown) (unknown) Mode of arrival: Wheelchair (units unknown) (unknown) (unknown) (no date) (unknown) (unknown) Mother Cancer (units unknown) (unknown) (unknown) (no date) (unknown) (unknown) NECK: Nontender, painless range of motion, trachea midline (units unknown) (unknown) (unknown) (no date) (unknown) (unknown) NEURO: Oriented AOx3, neuro is grossly intact, sensation and motor is normal all (units unknown) (unknown) (unknown) (no date) (unknown) (unknown) Narrative (units unknown) (unknown) (unknown) (no date) (unknown) (unknown) Negative Nexus criteria, there is no midline line tenderness, distracting (units unknown) (unknown) (unknown) (no date) (unknown) (unknown) No Action (units unknown) (unknown) (unknown) (no date) (unknown) (unknown) No Known Drug Allergies Allergy Verified 12/25/22 11:32 (units unknown) (unknown) (unknown) (no date) (unknown) (unknown) No fracture. (units unknown) (unknown) (unknown) (no date) (unknown) (unknown) Nodes and vessels:? No iliac, pelvic, or inguinal adenopathy by size criteria.? (units unknown) (unknown) (unknown) (no date) (unknown) (unknown) Ordered: (units unknown) (unknown) (unknown) (no date) (unknown) (unknown) Ordering Provider: Natalie Hernandez D.O. (units unknown) (unknown) (unknown) (no date) (unknown) (unknown) Orders (units unknown) (unknown) (unknown) (no date) (unknown) (unknown) Osteoporosis (units unknown) (unknown) (unknown) (no date) (unknown) (unknown) Oxygen Delivery Method Room Air 12/25/22 11:30 (units unknown) (unknown) (unknown) (no date) (unknown) (unknown) Oxygen Delivery Method Room Air (units unknown) (unknown) (unknown) (no date) (unknown) (unknown) PROCEDURE:? CT PEL WO CON (units unknown) (unknown) (unknown) (no date) (unknown) (unknown) PROCEDURE:? XR HIP W PEL IF DONE LT 2V (units unknown) (unknown) (unknown) (no date) (unknown) (unknown) PSYCH: Normal mood and affect (units unknown) (unknown) (unknown) (no date) (unknown) (unknown) [place]offrey[place]jeet (units unknown) (unknown) (unknown) (no date) (unknown) (unknown) Patient History (units unknown) (unknown) (unknown) (no date) (unknown) (unknown) Patient has had multiple compression fractures in the past and this probably (units unknown) (unknown) (unknown) (no date) (unknown) (unknown) Patient: Jonny Neely MR#: [id number] (units unknown) (unknown) (unknown) (no date) (unknown) (unknown) Patient: Jonny Neely (units unknown) (unknown) (unknown) (no date) (unknown) (unknown) Peritoneum and bowel:? Bowel loops demonstrate normal wall thickness and (units unknown) (unknown) (unknown) (no date) (unknown) (unknown) Prescriptions: (units unknown) (unknown) (unknown) (no date) (unknown) (unknown) Previous Rx's (units unknown) (unknown) (unknown) (no date) (unknown) (unknown) Procedure: CT pelvis wo con (units unknown) (unknown) (unknown) (no date) (unknown) (unknown) Procedure: XR hip w pel if done LT 2V (units unknown) (unknown) (unknown) (no date) (unknown) (unknown) Pulse Oximetry 100 12/25/22 11:30 (units unknown) (unknown) (unknown) (no date) (unknown) (unknown) Pulse Oximetry 100 (units unknown) (unknown) (unknown) (no date) (unknown) (unknown) Pulse Rate 72 12/25/22 11:30 (units unknown) (unknown) (unknown) (no date) (unknown) (unknown) Pulse Rate 72 (units unknown) (unknown) (unknown) (no date) (unknown) (unknown) RESP: Chest is nontender and has symmetric movement, no ecchymosis, breath (units unknown) (unknown) (unknown) (no date) (unknown) (unknown) ROS Unobtainable: All systems reviewed + are unremarkable except as noted in HPI (units unknown) (unknown) (unknown) (no date) (unknown) (unknown) Radiologist's Impression: (units unknown) (unknown) (unknown) (no date) (unknown) (unknown) Referrals: (units unknown) (unknown) (unknown) (no date) (unknown) (unknown) Related Data (units unknown) (unknown) (unknown) (no date) (unknown) (unknown) Respiratory Rate 16 12/25/22 11:30 (units unknown) (unknown) (unknown) (no date) (unknown) (unknown) Respiratory Rate 16 (units unknown) (unknown) (unknown) (no date) (unknown) (unknown) Review of Systems (units unknown) (unknown) (unknown) (no date) (unknown) (unknown) Perico Sánchez (units unknown) (unknown) (unknown) (no date) (unknown) (unknown) Sukumar Perez (units unknown) (unknown) (unknown) (no date) (unknown) (unknown) Rx Instructions: (units unknown) (unknown) (unknown) (no date) (unknown) (unknown) SKIN: Intact, warm and dry, no crepitus and without decubitus (units unknown) (unknown) (unknown) (no date) (unknown) (unknown) Signed By: (units unknown) (unknown) (unknown) (no date) (unknown) (unknown) Signed (units unknown) (unknown) (unknown) (no date) (unknown) (unknown) Smoking Status: Never smoker (units unknown) (unknown) (unknown) (no date) (unknown) (unknown) Social History (units unknown) (unknown) (unknown) (no date) (unknown) (unknown) Soft tissues:? No suspicious soft tissue calcifications or masses.? (units unknown) (unknown) (unknown) (no date) (unknown) (unknown) Source: patient (units unknown) (unknown) (unknown) (no date) (unknown) (unknown) Stated Complaint: extreme low back/hip pain left leg (units unknown) (unknown) (unknown) (no date) (unknown) (unknown) Jonny Neely??87? ?M??1935 (units unknown) (unknown) (unknown) (no date) (unknown) (unknown) Stop: 12/25/22 14:02 (units unknown) (unknown) (unknown) (no date) (unknown) (unknown) Substance Use Type: does not use and prescription drug (units unknown) (unknown) (unknown) (no date) (unknown) (unknown) Surgical History (units unknown) (unknown) (unknown) (no date) (unknown) (unknown) TECHNIQUE:? 2 views of the hip were acquired.? (units unknown) (unknown) (unknown) (no date) (unknown) (unknown) TECHNIQUE:? (units unknown) (unknown) (unknown) (no date) (unknown) (unknown) Telemetry Strips (units unknown) (unknown) (unknown) (no date) (unknown) (unknown) Temperature 97.8 F 12/25/22 11:30 (units unknown) (unknown) (unknown) (no date) (unknown) (unknown) Temperature 97.8 F (units unknown) (unknown) (unknown) (no date) (unknown) (unknown) This is an 87-year-old male who had ground level fall with the trip. Patient (units unknown) (unknown) (unknown) (no date) (unknown) (unknown) This is an 87-year-old male with history of AFib on Xarelto, prior pacemaker (units unknown) (unknown) (unknown) (no date) (unknown) (unknown) Time Seen by Provider: 12/25/22 13:26 (units unknown) (unknown) (unknown) (no date) (unknown) (unknown) Tramadol HCl (Tramadol 50 Mg Tablet) 50 mg PO NOW ONE (units unknown) (unknown) (unknown) (no date) (unknown) (unknown) Ur Culture Indicated? Cult not indicated (units unknown) (unknown) (unknown) (no date) (unknown) (unknown) Ur Leukocyte Esterase Negative (NEGATIVE) (units unknown) (unknown) (unknown) (no date) (unknown) (unknown) Ur Specific [place] 1.010 (1.000-1.035) (units unknown) (unknown) (unknown) (no date) (unknown) (unknown) Ur Squamous Epith Cells 0-1 /hpf (0-5/HPF) (units unknown) (unknown) (unknown) (no date) (unknown) (unknown) Urinalysis and Microscopic Stat (units unknown) (unknown) (unknown) (no date) (unknown) (unknown) Urine Appearance Clear (units unknown) (unknown) (unknown) (no date) (unknown) (unknown) Urine Bacteria None seen (None) (units unknown) (unknown) (unknown) (no date) (unknown) (unknown) Urine Bilirubin Negative (NEGATIVE) (units unknown) (unknown) (unknown) (no date) (unknown) (unknown) Urine Color Yellow (units unknown) (unknown) (unknown) (no date) (unknown) (unknown) Urine Dip (units unknown) (unknown) (unknown) (no date) (unknown) (unknown) Urine Glucose (UA) Negative (Negative) g/dL (units unknown) (unknown) (unknown) (no date) (unknown) (unknown) Urine Ketones Negative (NEGATIVE) (units unknown) (unknown) (unknown) (no date) (unknown) (unknown) Urine Nitrate Negative (Negative) (units unknown) (unknown) (unknown) (no date) (unknown) (unknown) Urine Occult Blood 1+ H (Negative) (units unknown) (unknown) (unknown) (no date) (unknown) (unknown) Urine Protein Negative (Negative) (units unknown) (unknown) (unknown) (no date) (unknown) (unknown) Urine RBC 5-10/hpf H (0-5/HPF) (units unknown) (unknown) (unknown) (no date) (unknown) (unknown) Urine Specific [place] 1.010 (units unknown) (unknown) (unknown) (no date) (unknown) (unknown) Urine Urobilinogen 0.2 (0.2) E.U./dL (units unknown) (unknown) (unknown) (no date) (unknown) (unknown) Urine WBC 0-1/hpf (0-5/HPF) (units unknown) (unknown) (unknown) (no date) (unknown) (unknown) Urine pH 5.5 (4.5-8.0) (units unknown) (unknown) (unknown) (no date) (unknown) (unknown) Vital Signs - 8 hr (units unknown) (unknown) (unknown) (no date) (unknown) (unknown) Vital Signs (units unknown) (unknown) (unknown) (no date) (unknown) (unknown) Vital signs: (units unknown) (unknown) (unknown) (no date) (unknown) (unknown) [place] (units unknown) (unknown) (unknown) (no date) (unknown) (unknown) XR hip w pel if done LT 2V Stat (units unknown) (unknown) (unknown) (no date) (unknown) (unknown) XRay Report (units unknown) (unknown) (unknown) (no date) (unknown) (unknown) Xarelto 20 mg Tablet (units unknown) (unknown) (unknown) (no date) (unknown) (unknown) adjustment (units unknown) (unknown) (unknown) (no date) (unknown) (unknown) airway is normal and with normal occlusion, No bony tenderness, patient does (units unknown) (unknown) (unknown) (no date) (unknown) (unknown) alcohol intake frequency: 0-2 drinks per day (units unknown) (unknown) (unknown) (no date) (unknown) (unknown) alcohol intake: current (units unknown) (unknown) (unknown) (no date) (unknown) (unknown) and below (units unknown) (unknown) (unknown) (no date) (unknown) (unknown) bimatoprost 0.01 % eye drops 1 drp ophthalmic (eye) DAILY 10/24/22 10/24/22 (units unknown) (unknown) (unknown) (no date) (unknown) (unknown) bupropion HCl 150 mg Tablet Sustained-Release 12 Hr (units unknown) (unknown) (unknown) (no date) (unknown) (unknown) bupropion HCl 150 mg tablet,12 hr 150 mg PO BID 10/24/22 10/24/22 (units unknown) (unknown) (unknown) (no date) (unknown) (unknown) caliber.? No (units unknown) (unknown) (unknown) (no date) (unknown) (unknown) capsule,extended release 24 hr (units unknown) (unknown) (unknown) (no date) (unknown) (unknown) crests to the symphysis.? 5 mm coronal and sagittal reformats were then (units unknown) (unknown) (unknown) (no date) (unknown) (unknown) diltiazem HCl 240 mg 240 mg PO DAILY 10/24/22 10/24/22 (units unknown) (unknown) (unknown) (no date) (unknown) (unknown) diltiazem HCl 240 mg Capsule,Extended Release 24hr (units unknown) (unknown) (unknown) (no date) (unknown) (unknown) dorzolamide 22.3 mg-timolol 6.8 1 drp ophthalmic (eye) DAILY 10/24/22 10/24/22 (units unknown) (unknown) (unknown) (no date) (unknown) (unknown) dorzolamide-timolol 22.3-6.8 mg/mL Drops (units unknown) (unknown) (unknown) (no date) (unknown) (unknown) ea (units unknown) (unknown) (unknown) (no date) (unknown) (unknown) edema, normal color and temperature, normal range of motion of extremities with (units unknown) (unknown) (unknown) (no date) (unknown) (unknown) fall. Patient had a fall. He states that he tripped losing his balance and (units unknown) (unknown) (unknown) (no date) (unknown) (unknown) falling onto a wooden box. Has pain in his left hip just below the trochanter. (units unknown) (unknown) (unknown) (no date) (unknown) (unknown) finasteride 5 mg Tablet (units unknown) (unknown) (unknown) (no date) (unknown) (unknown) finasteride 5 mg tablet 5 mg PO DAILY 10/24/22 10/24/22 (units unknown) (unknown) (unknown) (no date) (unknown) (unknown) formation. (units unknown) (unknown) (unknown) (no date) (unknown) (unknown) fractures and retropulsed fragments he is had no numbness, tingling or weakness (units unknown) (unknown) (unknown) (no date) (unknown) (unknown) free fluid or air.? Numerous colonic diverticula. (units unknown) (unknown) (unknown) (no date) (unknown) (unknown) gabapentin 400 mg capsule 400 mg PO TID #30 caps 12/04/22 (units unknown) (unknown) (unknown) (no date) (unknown) (unknown) gabapentin 400 mg capsule (units unknown) (unknown) (unknown) (no date) (unknown) (unknown) have some ecchymosis of the left neck which appears old. (units unknown) (unknown) (unknown) (no date) (unknown) (unknown) he is from prior fall and not from today. He is accompanied by 2 friends who (units unknown) (unknown) (unknown) (no date) (unknown) (unknown) help and caregiver for him intermittently. (units unknown) (unknown) (unknown) (no date) (unknown) (unknown) hemotypanum, Nares are clear, no septal hematoma, no dental or oral injury, (units unknown) (unknown) (unknown) (no date) (unknown) (unknown) household members: none and other (units unknown) (unknown) (unknown) (no date) (unknown) (unknown) iliac (units unknown) (unknown) (unknown) (no date) (unknown) (unknown) in the room. Patient states he did not strike his head he denies neck or back (units unknown) (unknown) (unknown) (no date) (unknown) (unknown) injury, altered mental status, neuro deficit, recent EtOH. (units unknown) (unknown) (unknown) (no date) (unknown) (unknown) leave on most painful area for up to 12 hrs (units unknown) (unknown) (unknown) (no date) (unknown) (unknown) lidocaine 5 % adhesive patch,medicated (units unknown) (unknown) (unknown) (no date) (unknown) (unknown) lidocaine 5 % topical patch 1 patch topical DAILY PRN pain #30 12/04/22 (units unknown) (unknown) (unknown) (no date) (unknown) (unknown) mg/mL eye drops (units unknown) (unknown) (unknown) (no date) (unknown) (unknown) must administer with evening meal (units unknown) (unknown) (unknown) (no date) (unknown) (unknown) normal tendon exam, 2+ pulses in all four extremities (units unknown) (unknown) (unknown) (no date) (unknown) (unknown) of mA and/or kV according to patient size.? (units unknown) (unknown) (unknown) (no date) (unknown) (unknown) omeprazole 20 mg Capsule,Delayed Release(Dr/Ec) (units unknown) (unknown) (unknown) (no date) (unknown) (unknown) omeprazole 20 mg capsule,delayed 20 mg PO DAILY 10/24/22 10/24/22 (units unknown) (unknown) (unknown) (no date) (unknown) (unknown) osteopenic so CT to rule out occult fracture was ordered. Patient did request (units unknown) (unknown) (unknown) (no date) (unknown) (unknown) pain, no chest pain or shortness of breath, no other GI or urinary symptoms no (units unknown) (unknown) (unknown) (no date) (unknown) (unknown) painful. Patient has had chronic back pain with known lumbar compression (units unknown) (unknown) (unknown) (no date) (unknown) (unknown) pelvic rock is negative (units unknown) (unknown) (unknown) (no date) (unknown) (unknown) performed.? For (units unknown) (unknown) (unknown) (no date) (unknown) (unknown) placement for sick sinus syndrome, history of V-tach presents with ground level (units unknown) (unknown) (unknown) (no date) (unknown) (unknown) radiation dose reduction, the following was used:? automated exposure control, (units unknown) (unknown) (unknown) (no date) (unknown) (unknown) release (units unknown) (unknown) (unknown) (no date) (unknown) (unknown) retention, or fecal or urinary incontinence. Patient typically takes Tylenol 3 (units unknown) (unknown) (unknown) (no date) (unknown) (unknown) right eye (units unknown) (unknown) (unknown) (no date) (unknown) (unknown) ring appears intact.? Mild sclerosis of the acetabulum with osteophyte (units unknown) (unknown) (unknown) (no date) (unknown) (unknown) rivaroxaban 20 mg tablet (Xarelto) 20 mg PO QPM 10/24/22 10/24/22 (units unknown) (unknown) (unknown) (no date) (unknown) (unknown) some pain medication Tylenol and tramadol given here in the department. (units unknown) (unknown) (unknown) (no date) (unknown) (unknown) sounds are normal no crackles, wheezes or rales (units unknown) (unknown) (unknown) (no date) (unknown) (unknown) states he is had persistent left hip pain just below the greater trochanter his (units unknown) (unknown) (unknown) (no date) (unknown) (unknown) sustained-release (units unknown) (unknown) (unknown) (no date) (unknown) (unknown) tamsulosin 0.4 mg Capsule (units unknown) (unknown) (unknown) (no date) (unknown) (unknown) tamsulosin 0.4 mg capsule 0.4 mg PO BEDTIME 10/24/22 10/24/22 (units unknown) (unknown) (unknown) (no date) (unknown) (unknown) that he appreciates. He states he is able to lift his leg and is able to do so (units unknown) (unknown) (unknown) (no date) (unknown) (unknown) times daily as well as gabapentin. Patient has some bruising on his neck which (units unknown) (unknown) (unknown) (no date) (unknown) (unknown) topical ointment (units unknown) (unknown) (unknown) (no date) (unknown) (unknown) tramadol 50 mg tablet 50 mg PO Q8H PRN pain #10 tabs 12/04/22 (units unknown) (unknown) (unknown) (no date) (unknown) (unknown) tramadol 50 mg tablet (units unknown) (unknown) (unknown) (no date) (unknown) (unknown) triamcinolone acetonide 0.1 % 1 applic topical DAILY PRN Dry Skin 10/24/22 (units unknown) (unknown) (unknown) (no date) (unknown) (unknown) triamcinolone acetonide 0.1 % Ointment (units unknown) (unknown) (unknown) (no date) (unknown) (unknown) vessels demonstrate normal size.? (units unknown) (unknown) (unknown) (no date) (unknown) (unknown) visualized pelvic (units unknown) (unknown) (unknown) (no date) (unknown) (unknown) vitamin B complex (B 1 tab PO DAILY 10/24/22 10/24/22 (units unknown) (unknown) (unknown) (no date) (unknown) (unknown) vitamin B complex [B Complex-Vitamin B12] Tablet (units unknown) (unknown) (unknown) (no date) (unknown) (unknown) without much issue. He does have pain when he tries to weightbear. No pedal (units unknown) (unknown) (unknown) (no date) (unknown) (unknown) x-ray is negative he actually has good movement but is painful to weightbear. (units unknown) (unknown) Result panel 112 (unknown) (no date) (unknown) (unknown) (no value) (units unknown) (unknown) (unknown) (no date) (unknown) (unknown) <Electronically signed by Natalie Hernandez D.O.> (units unknown) (unknown) (unknown) (no date) (unknown) (unknown) (Lumigan) (units unknown) (unknown) (unknown) (no date) (unknown) (unknown) 0.4 mg PO BEDTIME (units unknown) (unknown) (unknown) (no date) (unknown) (unknown) 10/24/22 (units unknown) (unknown) (unknown) (no date) (unknown) (unknown) 12/04/22 (units unknown) (unknown) (unknown) (no date) (unknown) (unknown) 12/25/22 Range/Units (units unknown) (unknown) (unknown) (no date) (unknown) (unknown) 12/25/22 (units unknown) (unknown) (unknown) (no date) (unknown) (unknown) 12/26/22 1309 (units unknown) (unknown) (unknown) (no date) (unknown) (unknown) [id number] (units unknown) (unknown) (unknown) (no date) (unknown) (unknown) 1 applic TOPICAL DAILY PRN (Reason: Dry Skin) (units unknown) (unknown) (unknown) (no date) (unknown) (unknown) 1 drp OPHTHALMIC (EYE) DAILY (units unknown) (unknown) (unknown) (no date) (unknown) (unknown) 1 patch topical DAILY PRN (Reason: pain) Qty: 30 0RF (units unknown) (unknown) (unknown) (no date) (unknown) (unknown) 1 tab PO DAILY (units unknown) (unknown) (unknown) (no date) (unknown) (unknown) 1. No fracture. (units unknown) (unknown) (unknown) (no date) (unknown) (unknown) 11:30 (units unknown) (unknown) (unknown) (no date) (unknown) (unknown) 10/07/22 (units unknown) (unknown) (unknown) (no date) (unknown) (unknown) [address] [place] [address] (units unknown) (unknown) (unknown) (no date) (unknown) (unknown) 13:14 (units unknown) (unknown) (unknown) (no date) (unknown) (unknown) 150 mg PO BID (units unknown) (unknown) (unknown) (no date) (unknown) (unknown) 2. Colonic diverticula without evidence of acute diverticulitis.? (units unknown) (unknown) (unknown) (no date) (unknown) (unknown) 20 mg PO DAILY (units unknown) (unknown) (unknown) (no date) (unknown) (unknown) 20 mg PO QPM (units unknown) (unknown) (unknown) (no date) (unknown) (unknown) 240 mg PO DAILY (units unknown) (unknown) (unknown) (no date) (unknown) (unknown) 4 extremities moving, cranial nerves II through XII are intact, GCS is 15 (units unknown) (unknown) (unknown) (no date) (unknown) (unknown) 400 mg PO TID Qty: 30 0RF (units unknown) (unknown) (unknown) (no date) (unknown) (unknown) 5 mg PO DAILY (units unknown) (unknown) (unknown) (no date) (unknown) (unknown) 50 mg PO Q8H PRN (Reason: pain) Qty: 10 0RF (units unknown) (unknown) (unknown) (no date) (unknown) (unknown) ? (units unknown) (unknown) (unknown) (no date) (unknown) (unknown) ? (units unknown) (unknown) (unknown) (no date) (unknown) (unknown) ABG/GI: Nontender, soft, normal bowel sounds, no distention, no organomegaly, (units unknown) (unknown) (unknown) (no date) (unknown) (unknown) Accession Number: [id number] ?? (units unknown) (unknown) (unknown) (no date) (unknown) (unknown) Accession Number: [id number] ?? (units unknown) (unknown) (unknown) (no date) (unknown) (unknown) Acct:[id number] (units unknown) (unknown) (unknown) (no date) (unknown) (unknown) Acetaminophen (Acetaminophen 325 Mg Tablet) 975 mg PO NOW ONE (units unknown) (unknown) (unknown) (no date) (unknown) (unknown) Activity Restrictions/Additio nal Instructions: (units unknown) (unknown) (unknown) (no date) (unknown) (unknown) Acute pain of left hip (units unknown) (unknown) (unknown) (no date) (unknown) (unknown) After the administration of oral contrast, 5 mm thick sections acquired from the (units unknown) (unknown) (unknown) (no date) (unknown) (unknown) Age/Sex: 87 / M (units unknown) (unknown) (unknown) (no date) (unknown) (unknown) Allergies (units unknown) (unknown) (unknown) (no date) (unknown) (unknown) Allergy/Adv: No Known Drug Allergies (units unknown) (unknown) (unknown) (no date) (unknown) (unknown) Allergy/AdvReac Type Severity Reaction Status Date / Time (units unknown) (unknown) (unknown) (no date) (unknown) (unknown) [place] [address] (units unknown) (unknown) (unknown) (no date) (unknown) (unknown) Approved by: Sukumar Perez M.D. on 12/25/2022 at 11:03?? (units unknown) (unknown) (unknown) (no date) (unknown) (unknown) Approved by: Sukumar Perez M.D. on 12/25/2022 at 14:17?? (units unknown) (unknown) (unknown) (no date) (unknown) (unknown) BACK: No CVA tenderness, no vertebral tenderness, no step-off's, no crepitus (units unknown) (unknown) (unknown) (no date) (unknown) (unknown) BPH (benign prostatic hyperplasia) (units unknown) (unknown) (unknown) (no date) (unknown) (unknown) Bedside Urine Bilirubin - Negative (units unknown) (unknown) (unknown) (no date) (unknown) (unknown) Bedside Urine Glucose Negative (units unknown) (unknown) (unknown) (no date) (unknown) (unknown) Bedside Urine Ketone - Negative (units unknown) (unknown) (unknown) (no date) (unknown) (unknown) Bedside Urine Leukocytes - Negative (units unknown) (unknown) (unknown) (no date) (unknown) (unknown) Bedside Urine Nitrite - Negative (units unknown) (unknown) (unknown) (no date) (unknown) (unknown) Bedside Urine Occult Blood (units unknown) (unknown) (unknown) (no date) (unknown) (unknown) Bedside Urine Protein - Negative (units unknown) (unknown) (unknown) (no date) (unknown) (unknown) Bedside Urine Urobilinogen - Negative (units unknown) (unknown) (unknown) (no date) (unknown) (unknown) Bedside Urine pH 6.0 (units unknown) (unknown) (unknown) (no date) (unknown) (unknown) Blood Pressure 117/69 12/25/22 11:30 (units unknown) (unknown) (unknown) (no date) (unknown) (unknown) Blood Pressure 117/69 (units unknown) (unknown) (unknown) (no date) (unknown) (unknown) Bones:? No fractures or dislocations.? No suspicious bony lesions.? The (units unknown) (unknown) (unknown) (no date) (unknown) (unknown) Bones:? No suspicious bony lesions.? Pelvic ring and hip joints appear intact.? (units unknown) (unknown) (unknown) (no date) (unknown) (unknown) COMPARISON:? None. (units unknown) (unknown) (unknown) (no date) (unknown) (unknown) CT Left Lower ext: (units unknown) (unknown) (unknown) (no date) (unknown) (unknown) CT Scan Report (units unknown) (unknown) (unknown) (no date) (unknown) (unknown) CVS: Heart sounds are normal, no murmur noted, No JVD. (units unknown) (unknown) (unknown) (no date) (unknown) (unknown) Cervical Spine CT (Signed) (units unknown) (unknown) (unknown) (no date) (unknown) (unknown) Chest X-Ray (Signed) (units unknown) (unknown) (unknown) (no date) (unknown) (unknown) Chest/Abdomen/Pelvis CT (Signed) (units unknown) (unknown) (unknown) (no date) (unknown) (unknown) Chief Complaint: Fall (units unknown) (unknown) (unknown) (no date) (unknown) (unknown) Chronic anticoagulation (units unknown) (unknown) (unknown) (no date) (unknown) (unknown) Clinical Impression: (units unknown) (unknown) (unknown) (no date) (unknown) (unknown) Close (units unknown) (unknown) (unknown) (no date) (unknown) (unknown) Complex-Vitamin B12 tablet) (units unknown) (unknown) (unknown) (no date) (unknown) (unknown) Continue your home medications as prescribed. (units unknown) (unknown) (unknown) (no date) (unknown) (unknown) Course (units unknown) (unknown) (unknown) (no date) (unknown) (unknown) : 1935 Acct:[id number] (units unknown) (unknown) (unknown) (no date) (unknown) (unknown) : 1935 (units unknown) (unknown) (unknown) (no date) (unknown) (unknown) Date of Service: 12/25/22 (units unknown) (unknown) (unknown) (no date) (unknown) (unknown) Departure (units unknown) (unknown) (unknown) (no date) (unknown) (unknown) Dictated by: Sukumar Perez M.D. on 12/25/2022 at 11:02 ? ? (units unknown) (unknown) (unknown) (no date) (unknown) (unknown) Dictated by: Sukumar Perez M.D. on 12/25/2022 at 14:09 ? ? (units unknown) (unknown) (unknown) (no date) (unknown) (unknown) Discharge Plan (units unknown) (unknown) (unknown) (no date) (unknown) (unknown) Discontinued Medications (units unknown) (unknown) (unknown) (no date) (unknown) (unknown) Documented By: SB (units unknown) (unknown) (unknown) (no date) (unknown) (unknown) ENT: External inspection normal, trachea is midline, TM's are normal no (units unknown) (unknown) (unknown) (no date) (unknown) (unknown) ER Physician: Nataile Hernandez D.O. (units unknown) (unknown) (unknown) (no date) (unknown) (unknown) EXT: Atraumatic, hips are nontender, patient is able to lift his left leg (units unknown) (unknown) (unknown) (no date) (unknown) (unknown) EYES: PERRLA, EOMI (units unknown) (unknown) (unknown) (no date) (unknown) (unknown) Echocardiogram Ultrasound (Signed) (units unknown) (unknown) (unknown) (no date) (unknown) (unknown) Emergency Report (units unknown) (unknown) (unknown) (no date) (unknown) (unknown) Esterase (units unknown) (unknown) (unknown) (no date) (unknown) (unknown) Exam Narrative: (units unknown) (unknown) (unknown) (no date) (unknown) (unknown) Exam (units unknown) (unknown) (unknown) (no date) (unknown) (unknown) Extremity x-ray #1: (units unknown) (unknown) (unknown) (no date) (unknown) (unknown) FINDINGS:? (units unknown) (unknown) (unknown) (no date) (unknown) (unknown) Family History (units unknown) (unknown) (unknown) (no date) (unknown) (unknown) Father No problems noted. (units unknown) (unknown) (unknown) (no date) (unknown) (unknown) GEN: Patient appears in mild distress. (units unknown) (unknown) (unknown) (no date) (unknown) (unknown) General (units unknown) (unknown) (unknown) (no date) (unknown) (unknown) Genitourinary:? Bladder wall thickness is normal.? (units unknown) (unknown) (unknown) (no date) (unknown) (unknown) HEAD: No evidence of trauma, no raccoon/Loja sign. (units unknown) (unknown) (unknown) (no date) (unknown) (unknown) HPI - Fall (units unknown) (unknown) (unknown) (no date) (unknown) (unknown) HPI Narrative: (units unknown) (unknown) (unknown) (no date) (unknown) (unknown) He states he was walking out for 2 or 3 days but has increasingly become (units unknown) (unknown) (unknown) (no date) (unknown) (unknown) Head CT (Signed) (units unknown) (unknown) (unknown) (no date) (unknown) (unknown) Hip X-Ray (Signed) (units unknown) (unknown) (unknown) (no date) (unknown) (unknown) History of Present Illness (units unknown) (unknown) (unknown) (no date) (unknown) (unknown) History of permanent cardiac pacemaker placement (units unknown) (unknown) (unknown) (no date) (unknown) (unknown) Home Medications (units unknown) (unknown) (unknown) (no date) (unknown) (unknown) IMPRESSION:? (units unknown) (unknown) (unknown) (no date) (unknown) (unknown) INDICATIONS:? fall , left hip pain (units unknown) (unknown) (unknown) (no date) (unknown) (unknown) INDICATIONS:? left hip/upper femur pain (units unknown) (unknown) (unknown) (no date) (unknown) (unknown) Iliac (units unknown) (unknown) (unknown) (no date) (unknown) (unknown) Image quality:? Excellent.? (units unknown) (unknown) (unknown) (no date) (unknown) (unknown) Imaging Data (units unknown) (unknown) (unknown) (no date) (unknown) (unknown) Initial Vital Signs (units unknown) (unknown) (unknown) (no date) (unknown) (unknown) Initial Vital Signs: (units unknown) (unknown) (unknown) (no date) (unknown) (unknown) Instructions: DI for Hip Pain (units unknown) (unknown) (unknown) (no date) (unknown) (unknown) [address] [address] (units unknown) (unknown) (unknown) (no date) (unknown) (unknown) [facility] (units unknown) (unknown) (unknown) (no date) (unknown) (unknown) Mohan Patterson (units unknown) (unknown) (unknown) (no date) (unknown) (unknown) Lab Data (units unknown) (unknown) (unknown) (no date) (unknown) (unknown) Lab Results (units unknown) (unknown) (unknown) (no date) (unknown) (unknown) Labs: (units unknown) (unknown) (unknown) (no date) (unknown) (unknown) Last Admin: 12/25/22 14:49 Dose: 50 mg (units unknown) (unknown) (unknown) (no date) (unknown) (unknown) Last Admin: 12/25/22 14:49 Dose: 975 mg (units unknown) (unknown) (unknown) (no date) (unknown) (unknown) Launch?Image (units unknown) (unknown) (unknown) (no date) (unknown) (unknown) Limitations: no limitations (units unknown) (unknown) (unknown) (no date) (unknown) (unknown) Loc: ED (units unknown) (unknown) (unknown) (no date) (unknown) (unknown) Lumbar Spine CT (Signed) (units unknown) (unknown) (unknown) (no date) (unknown) (unknown) Lumigan 0.01 % Drops (units unknown) (unknown) (unknown) (no date) (unknown) (unknown) MDM - Fall (units unknown) (unknown) (unknown) (no date) (unknown) (unknown) MDM Narrative (units unknown) (unknown) (unknown) (no date) (unknown) (unknown) MR#: [id number] (units unknown) (unknown) (unknown) (no date) (unknown) (unknown) Medical History (units unknown) (unknown) (unknown) (no date) (unknown) (unknown) Medical decision making narrative: (units unknown) (unknown) (unknown) (no date) (unknown) (unknown) Medication Instructions Recorded Confirmed (units unknown) (unknown) (unknown) (no date) (unknown) (unknown) Medication Instructions Recorded (units unknown) (unknown) (unknown) (no date) (unknown) (unknown) Mild osteoarthritic changes of the hips. (units unknown) (unknown) (unknown) (no date) (unknown) (unknown) Miscellaneous,Doctor , MD [Primary Care Provider] (units unknown) (unknown) (unknown) (no date) (unknown) (unknown) Miscellaneous:? Large fat containing left inguinal hernia.? (units unknown) (unknown) (unknown) (no date) (unknown) (unknown) Mode of arrival: Wheelchair (units unknown) (unknown) (unknown) (no date) (unknown) (unknown) Mother Cancer (units unknown) (unknown) (unknown) (no date) (unknown) (unknown) NECK: Nontender, painless range of motion, trachea midline (units unknown) (unknown) (unknown) (no date) (unknown) (unknown) NEURO: Oriented AOx3, neuro is grossly intact, sensation and motor is normal all (units unknown) (unknown) (unknown) (no date) (unknown) (unknown) Narrative (units unknown) (unknown) (unknown) (no date) (unknown) (unknown) Negative Nexus criteria, there is no midline line tenderness, distracting (units unknown) (unknown) (unknown) (no date) (unknown) (unknown) New (units unknown) (unknown) (unknown) (no date) (unknown) (unknown) No Action (units unknown) (unknown) (unknown) (no date) (unknown) (unknown) No Known Drug Allergies Allergy Verified 12/25/22 11:32 (units unknown) (unknown) (unknown) (no date) (unknown) (unknown) No fracture. (units unknown) (unknown) (unknown) (no date) (unknown) (unknown) Nodes and vessels:? No iliac, pelvic, or inguinal adenopathy by size criteria.? (units unknown) (unknown) (unknown) (no date) (unknown) (unknown) Ordered: (units unknown) (unknown) (unknown) (no date) (unknown) (unknown) Ordering Provider: Natalie Hernandez D.O. (units unknown) (unknown) (unknown) (no date) (unknown) (unknown) Orders (units unknown) (unknown) (unknown) (no date) (unknown) (unknown) Osteoporosis (units unknown) (unknown) (unknown) (no date) (unknown) (unknown) Oxygen Delivery Method Room Air 12/25/22 11:30 (units unknown) (unknown) (unknown) (no date) (unknown) (unknown) Oxygen Delivery Method Room Air (units unknown) (unknown) (unknown) (no date) (unknown) (unknown) PROCEDURE:? CT PEL WO CON (units unknown) (unknown) (unknown) (no date) (unknown) (unknown) PROCEDURE:? XR HIP W PEL IF DONE LT 2V (units unknown) (unknown) (unknown) (no date) (unknown) (unknown) PSYCH: Normal mood and affect (units unknown) (unknown) (unknown) (no date) (unknown) (unknown) Paliwal,Vidhu (units unknown) (unknown) (unknown) (no date) (unknown) (unknown) Patient Disposition: Home (units unknown) (unknown) (unknown) (no date) (unknown) (unknown) Patient History (units unknown) (unknown) (unknown) (no date) (unknown) (unknown) Patient has had multiple compression fractures in the past and this probably (units unknown) (unknown) (unknown) (no date) (unknown) (unknown) Patient: Jonny Neely MR#: [id number] (units unknown) (unknown) (unknown) (no date) (unknown) (unknown) Patient: Jonny Neely (units unknown) (unknown) (unknown) (no date) (unknown) (unknown) Peritoneum and bowel:? Bowel loops demonstrate normal wall thickness and (units unknown) (unknown) (unknown) (no date) (unknown) (unknown) Please follow-up with your physician for recheck. (units unknown) (unknown) (unknown) (no date) (unknown) (unknown) Prescription sent to [facility] in [place]. (units unknown) (unknown) (unknown) (no date) (unknown) (unknown) Prescriptions: (units unknown) (unknown) (unknown) (no date) (unknown) (unknown) Previous Rx's (units unknown) (unknown) (unknown) (no date) (unknown) (unknown) Procedure: CT pelvis wo con (units unknown) (unknown) (unknown) (no date) (unknown) (unknown) Procedure: XR hip w pel if done LT 2V (units unknown) (unknown) (unknown) (no date) (unknown) (unknown) Pulse Oximetry 100 12/25/22 11:30 (units unknown) (unknown) (unknown) (no date) (unknown) (unknown) Pulse Oximetry 100 (units unknown) (unknown) (unknown) (no date) (unknown) (unknown) Pulse Rate 72 12/25/22 11:30 (units unknown) (unknown) (unknown) (no date) (unknown) (unknown) Pulse Rate 72 (units unknown) (unknown) (unknown) (no date) (unknown) (unknown) RESP: Chest is nontender and has symmetric movement, no ecchymosis, breath (units unknown) (unknown) (unknown) (no date) (unknown) (unknown) ROS Unobtainable: All systems reviewed + are unremarkable except as noted in HPI (units unknown) (unknown) (unknown) (no date) (unknown) (unknown) Radiologist's Impression: (units unknown) (unknown) (unknown) (no date) (unknown) (unknown) Referrals: (units unknown) (unknown) (unknown) (no date) (unknown) (unknown) Related Data (units unknown) (unknown) (unknown) (no date) (unknown) (unknown) Respiratory Rate 16 12/25/22 11:30 (units unknown) (unknown) (unknown) (no date) (unknown) (unknown) Respiratory Rate 16 (units unknown) (unknown) (unknown) (no date) (unknown) (unknown) Review of Systems (units unknown) (unknown) (unknown) (no date) (unknown) (unknown) Perico Sánchez (units unknown) (unknown) (unknown) (no date) (unknown) (unknown) Sukumar Perez (units unknown) (unknown) (unknown) (no date) (unknown) (unknown) Rx Instructions: (units unknown) (unknown) (unknown) (no date) (unknown) (unknown) SKIN: Intact, warm and dry, no crepitus and without decubitus (units unknown) (unknown) (unknown) (no date) (unknown) (unknown) Signed By: (units unknown) (unknown) (unknown) (no date) (unknown) (unknown) Signed (units unknown) (unknown) (unknown) (no date) (unknown) (unknown) Smoking Status: Never smoker (units unknown) (unknown) (unknown) (no date) (unknown) (unknown) Social History (units unknown) (unknown) (unknown) (no date) (unknown) (unknown) Soft tissues:? No suspicious soft tissue calcifications or masses.? (units unknown) (unknown) (unknown) (no date) (unknown) (unknown) Source: patient (units unknown) (unknown) (unknown) (no date) (unknown) (unknown) Stand Alone Forms: Patient Portal/API (units unknown) (unknown) (unknown) (no date) (unknown) (unknown) Stated Complaint: extreme low back/hip pain left leg (units unknown) (unknown) (unknown) (no date) (unknown) (unknown) Jonny Neely??87? ?M??1935 (units unknown) (unknown) (unknown) (no date) (unknown) (unknown) Stop: 12/25/22 14:02 (units unknown) (unknown) (unknown) (no date) (unknown) (unknown) Substance Use Type: does not use and prescription drug (units unknown) (unknown) (unknown) (no date) (unknown) (unknown) Surgical History (units unknown) (unknown) (unknown) (no date) (unknown) (unknown) TECHNIQUE:? 2 views of the hip were acquired.? (units unknown) (unknown) (unknown) (no date) (unknown) (unknown) TECHNIQUE:? (units unknown) (unknown) (unknown) (no date) (unknown) (unknown) Telemetry Strips (units unknown) (unknown) (unknown) (no date) (unknown) (unknown) Temperature 97.8 F 12/25/22 11:30 (units unknown) (unknown) (unknown) (no date) (unknown) (unknown) Temperature 97.8 F (units unknown) (unknown) (unknown) (no date) (unknown) (unknown) This is an 87-year-old male who had ground level fall with the trip. Patient (units unknown) (unknown) (unknown) (no date) (unknown) (unknown) This is an 87-year-old male with history of AFib on Xarelto, prior pacemaker (units unknown) (unknown) (unknown) (no date) (unknown) (unknown) Time Seen by Provider: 12/25/22 13:26 (units unknown) (unknown) (unknown) (no date) (unknown) (unknown) Tramadol HCl (Tramadol 50 Mg Tablet) 50 mg PO NOW ONE (units unknown) (unknown) (unknown) (no date) (unknown) (unknown) Ur Culture Indicated? Cult not indicated (units unknown) (unknown) (unknown) (no date) (unknown) (unknown) Ur Leukocyte Esterase Negative (NEGATIVE) (units unknown) (unknown) (unknown) (no date) (unknown) (unknown) Ur Specific [place] 1.010 (1.000-1.035) (units unknown) (unknown) (unknown) (no date) (unknown) (unknown) Ur Squamous Epith Cells 0-1 /hpf (0-5/HPF) (units unknown) (unknown) (unknown) (no date) (unknown) (unknown) Urine Appearance Clear (units unknown) (unknown) (unknown) (no date) (unknown) (unknown) Urine Bacteria None seen (None) (units unknown) (unknown) (unknown) (no date) (unknown) (unknown) Urine Bilirubin Negative (NEGATIVE) (units unknown) (unknown) (unknown) (no date) (unknown) (unknown) Urine Color Yellow (units unknown) (unknown) (unknown) (no date) (unknown) (unknown) Urine Dip (units unknown) (unknown) (unknown) (no date) (unknown) (unknown) Urine Glucose (UA) Negative (Negative) g/dL (units unknown) (unknown) (unknown) (no date) (unknown) (unknown) Urine Ketones Negative (NEGATIVE) (units unknown) (unknown) (unknown) (no date) (unknown) (unknown) Urine Nitrate Negative (Negative) (units unknown) (unknown) (unknown) (no date) (unknown) (unknown) Urine Occult Blood 1+ H (Negative) (units unknown) (unknown) (unknown) (no date) (unknown) (unknown) Urine Protein Negative (Negative) (units unknown) (unknown) (unknown) (no date) (unknown) (unknown) Urine RBC 5-10/hpf H (0-5/HPF) (units unknown) (unknown) (unknown) (no date) (unknown) (unknown) Urine Specific [place] 1.010 (units unknown) (unknown) (unknown) (no date) (unknown) (unknown) Urine Urobilinogen 0.2 (0.2) E.U./dL (units unknown) (unknown) (unknown) (no date) (unknown) (unknown) Urine WBC 0-1/hpf (0-5/HPF) (units unknown) (unknown) (unknown) (no date) (unknown) (unknown) Urine pH 5.5 (4.5-8.0) (units unknown) (unknown) (unknown) (no date) (unknown) (unknown) Vital Signs - 8 hr (units unknown) (unknown) (unknown) (no date) (unknown) (unknown) Vital Signs (units unknown) (unknown) (unknown) (no date) (unknown) (unknown) Vital signs: (units unknown) (unknown) (unknown) (no date) (unknown) (unknown) [place] (units unknown) (unknown) (unknown) (no date) (unknown) (unknown) XRay Report (units unknown) (unknown) (unknown) (no date) (unknown) (unknown) Xarelto 20 mg Tablet (units unknown) (unknown) (unknown) (no date) (unknown) (unknown) You can borrow a bedside commode from the [facility] on [facility] as long (units unknown) (unknown) (unknown) (no date) (unknown) (unknown) You may take tramadol 1 tablet every 6-8 hours as needed. This medication can (units unknown) (unknown) (unknown) (no date) (unknown) (unknown) adjustment (units unknown) (unknown) (unknown) (no date) (unknown) (unknown) airway is normal and with normal occlusion, No bony tenderness, patient does (units unknown) (unknown) (unknown) (no date) (unknown) (unknown) alcohol intake frequency: 0-2 drinks per day (units unknown) (unknown) (unknown) (no date) (unknown) (unknown) alcohol intake: current (units unknown) (unknown) (unknown) (no date) (unknown) (unknown) and below (units unknown) (unknown) (unknown) (no date) (unknown) (unknown) and struggle with ambulation trial. Patient family asked for wheelchair and (units unknown) (unknown) (unknown) (no date) (unknown) (unknown) as you return it. Alternative option is the [facility] in [place]. (units unknown) (unknown) (unknown) (no date) (unknown) (unknown) bimatoprost 0.01 % eye drops 1 drp ophthalmic (eye) DAILY 10/24/22 10/24/22 (units unknown) (unknown) (unknown) (no date) (unknown) (unknown) bupropion HCl 150 mg Tablet Sustained-Release 12 Hr (units unknown) (unknown) (unknown) (no date) (unknown) (unknown) bupropion HCl 150 mg tablet,12 hr 150 mg PO BID 10/24/22 10/24/22 (units unknown) (unknown) (unknown) (no date) (unknown) (unknown) caliber.? No (units unknown) (unknown) (unknown) (no date) (unknown) (unknown) capsule,extended release 24 hr (units unknown) (unknown) (unknown) (no date) (unknown) (unknown) crests to the symphysis.? 5 mm coronal and sagittal reformats were then (units unknown) (unknown) (unknown) (no date) (unknown) (unknown) decisions while taking it. This medication will make you constipated please (units unknown) (unknown) (unknown) (no date) (unknown) (unknown) diltiazem HCl 240 mg 240 mg PO DAILY 10/24/22 10/24/22 (units unknown) (unknown) (unknown) (no date) (unknown) (unknown) diltiazem HCl 240 mg Capsule,Extended Release 24hr (units unknown) (unknown) (unknown) (no date) (unknown) (unknown) dorzolamide 22.3 mg-timolol 6.8 1 drp ophthalmic (eye) DAILY 10/24/22 10/24/22 (units unknown) (unknown) (unknown) (no date) (unknown) (unknown) dorzolamide-timolol 22.3-6.8 mg/mL Drops (units unknown) (unknown) (unknown) (no date) (unknown) (unknown) ea (units unknown) (unknown) (unknown) (no date) (unknown) (unknown) edema, normal color and temperature, normal range of motion of extremities with (units unknown) (unknown) (unknown) (no date) (unknown) (unknown) fall. Patient had a fall. He states that he tripped losing his balance and (units unknown) (unknown) (unknown) (no date) (unknown) (unknown) falling onto a wooden box. Has pain in his left hip just below the trochanter. (units unknown) (unknown) (unknown) (no date) (unknown) (unknown) finasteride 5 mg Tablet (units unknown) (unknown) (unknown) (no date) (unknown) (unknown) finasteride 5 mg tablet 5 mg PO DAILY 10/24/22 10/24/22 (units unknown) (unknown) (unknown) (no date) (unknown) (unknown) formation. (units unknown) (unknown) (unknown) (no date) (unknown) (unknown) fractures and retropulsed fragments he is had no numbness, tingling or weakness (units unknown) (unknown) (unknown) (no date) (unknown) (unknown) free fluid or air.? Numerous colonic diverticula. (units unknown) (unknown) (unknown) (no date) (unknown) (unknown) gabapentin 400 mg capsule 400 mg PO TID #30 caps 12/04/22 (units unknown) (unknown) (unknown) (no date) (unknown) (unknown) gabapentin 400 mg capsule (units unknown) (unknown) (unknown) (no date) (unknown) (unknown) has good range of motion while laying in bed but is quite painful to weight bare (units unknown) (unknown) (unknown) (no date) (unknown) (unknown) have some ecchymosis of the left neck which appears old. (units unknown) (unknown) (unknown) (no date) (unknown) (unknown) he is from prior fall and not from today. He is accompanied by 2 friends who (units unknown) (unknown) (unknown) (no date) (unknown) (unknown) help and caregiver for him intermittently. (units unknown) (unknown) (unknown) (no date) (unknown) (unknown) hemotypanum, Nares are clear, no septal hematoma, no dental or oral injury, (units unknown) (unknown) (unknown) (no date) (unknown) (unknown) household members: none and other (units unknown) (unknown) (unknown) (no date) (unknown) (unknown) iliac (units unknown) (unknown) (unknown) (no date) (unknown) (unknown) in the room. Patient states he did not strike his head he denies neck or back (units unknown) (unknown) (unknown) (no date) (unknown) (unknown) injury, altered mental status, neuro deficit, recent EtOH. (units unknown) (unknown) (unknown) (no date) (unknown) (unknown) leave on most painful area for up to 12 hrs (units unknown) (unknown) (unknown) (no date) (unknown) (unknown) lidocaine 5 % adhesive patch,medicated (units unknown) (unknown) (unknown) (no date) (unknown) (unknown) lidocaine 5 % topical patch 1 patch topical DAILY PRN pain #30 12/04/22 (units unknown) (unknown) (unknown) (no date) (unknown) (unknown) make you sleepy do not drive, perform hazardous activities or make any major (units unknown) (unknown) (unknown) (no date) (unknown) (unknown) mg/mL eye drops (units unknown) (unknown) (unknown) (no date) (unknown) (unknown) must administer with evening meal (units unknown) (unknown) (unknown) (no date) (unknown) (unknown) normal tendon exam, 2+ pulses in all four extremities (units unknown) (unknown) (unknown) (no date) (unknown) (unknown) of mA and/or kV according to patient size.? (units unknown) (unknown) (unknown) (no date) (unknown) (unknown) omeprazole 20 mg Capsule,Delayed Release(Dr/Ec) (units unknown) (unknown) (unknown) (no date) (unknown) (unknown) omeprazole 20 mg capsule,delayed 20 mg PO DAILY 10/24/22 10/24/22 (units unknown) (unknown) (unknown) (no date) (unknown) (unknown) osteopenic so CT to rule out occult fracture was ordered. Patient did request (units unknown) (unknown) (unknown) (no date) (unknown) (unknown) pain, no chest pain or shortness of breath, no other GI or urinary symptoms no (units unknown) (unknown) (unknown) (no date) (unknown) (unknown) painful. Patient has had chronic back pain with known lumbar compression (units unknown) (unknown) (unknown) (no date) (unknown) (unknown) pelvic rock is negative (units unknown) (unknown) (unknown) (no date) (unknown) (unknown) performed.? For (units unknown) (unknown) (unknown) (no date) (unknown) (unknown) placement for sick sinus syndrome, history of V-tach presents with ground level (units unknown) (unknown) (unknown) (no date) (unknown) (unknown) radiation dose reduction, the following was used:? automated exposure control, (units unknown) (unknown) (unknown) (no date) (unknown) (unknown) release (units unknown) (unknown) (unknown) (no date) (unknown) (unknown) retention, or fecal or urinary incontinence. Patient typically takes Tylenol 3 (units unknown) (unknown) (unknown) (no date) (unknown) (unknown) right eye (units unknown) (unknown) (unknown) (no date) (unknown) (unknown) ring appears intact.? Mild sclerosis of the acetabulum with osteophyte (units unknown) (unknown) (unknown) (no date) (unknown) (unknown) rivaroxaban 20 mg tablet (Xarelto) 20 mg PO QPM 10/24/22 10/24/22 (units unknown) (unknown) (unknown) (no date) (unknown) (unknown) some pain medication Tylenol and tramadol given here in the department. Patient (units unknown) (unknown) (unknown) (no date) (unknown) (unknown) sounds are normal no crackles, wheezes or rales (units unknown) (unknown) (unknown) (no date) (unknown) (unknown) state they will assist him at home. (units unknown) (unknown) (unknown) (no date) (unknown) (unknown) states he is had persistent left hip pain just below the greater trochanter his (units unknown) (unknown) (unknown) (no date) (unknown) (unknown) sustained-release (units unknown) (unknown) (unknown) (no date) (unknown) (unknown) take a stool softener once to twice daily until stools are soft and regular. (units unknown) (unknown) (unknown) (no date) (unknown) (unknown) tamsulosin 0.4 mg Capsule (units unknown) (unknown) (unknown) (no date) (unknown) (unknown) tamsulosin 0.4 mg capsule 0.4 mg PO BEDTIME 10/24/22 10/24/22 (units unknown) (unknown) (unknown) (no date) (unknown) (unknown) that he appreciates. He states he is able to lift his leg and is able to do so (units unknown) (unknown) (unknown) (no date) (unknown) (unknown) times daily as well as gabapentin. Patient has some bruising on his neck which (units unknown) (unknown) (unknown) (no date) (unknown) (unknown) topical ointment (units unknown) (unknown) (unknown) (no date) (unknown) (unknown) tramadol 50 mg tablet 50 mg PO Q8H PRN pain #10 tabs 12/04/22 (units unknown) (unknown) (unknown) (no date) (unknown) (unknown) tramadol 50 mg tablet 50 mg PO Q8H PRN pain #10 tabs 12/25/22 (units unknown) (unknown) (unknown) (no date) (unknown) (unknown) tramadol 50 mg tablet (units unknown) (unknown) (unknown) (no date) (unknown) (unknown) triamcinolone acetonide 0.1 % 1 applic topical DAILY PRN Dry Skin 10/24/22 (units unknown) (unknown) (unknown) (no date) (unknown) (unknown) triamcinolone acetonide 0.1 % Ointment (units unknown) (unknown) (unknown) (no date) (unknown) (unknown) vessels demonstrate normal size.? (units unknown) (unknown) (unknown) (no date) (unknown) (unknown) visualized pelvic (units unknown) (unknown) (unknown) (no date) (unknown) (unknown) vitamin B complex (B 1 tab PO DAILY 10/24/22 10/24/22 (units unknown) (unknown) (unknown) (no date) (unknown) (unknown) vitamin B complex [B Complex-Vitamin B12] Tablet (units unknown) (unknown) (unknown) (no date) (unknown) (unknown) without much issue. He does have pain when he tries to weightbear. No pedal (units unknown) (unknown) (unknown) (no date) (unknown) (unknown) x-ray is negative he actually has good movement but is painful to weightbear. (units unknown) (unknown) Result panel 113 (unknown) (no date) (unknown) (unknown) (no value) (units unknown) (unknown) (unknown) (no date) (unknown) (unknown) [id number] (units unknown) (unknown) (unknown) (no date) (unknown) (unknown) 02/08/23 (units unknown) (unknown) (unknown) (no date) (unknown) (unknown) 1. Stable chronic appearing compression deformities involving L1 through L4 (units unknown) (unknown) (unknown) (no date) (unknown) (unknown) [address] [place] [address] (units unknown) (unknown) (unknown) (no date) (unknown) (unknown) 2. Interval development of significant L5 vertebral body compression deformity (units unknown) (unknown) (unknown) (no date) (unknown) (unknown) 3. Grade 1 retrolisthesis at L1-2 and L2-3 levels. Degenerative disc disease (units unknown) (unknown) (unknown) (no date) (unknown) (unknown) 50 percent loss of L5 vertebral body height. (units unknown) (unknown) (unknown) (no date) (unknown) (unknown) Accession Number: [id number] (units unknown) (unknown) (unknown) (no date) (unknown) (unknown) Age/Sex: 87 / M Date of Service: (units unknown) (unknown) (unknown) (no date) (unknown) (unknown) [place] [address] (units unknown) (unknown) (unknown) (no date) (unknown) (unknown) Approved by: Johny Resendez M.D. on 02/08/2023 at 17:09 (units unknown) (unknown) (unknown) (no date) (unknown) (unknown) Bones: 5 [id number] vertebrae are present. Straightening of normal lumbar (units unknown) (unknown) (unknown) (no date) (unknown) (unknown) COMPARISON: [facility], CT, CT LUMBAR SPINE WO CON, 12/04/2022, 13:39. (units unknown) (unknown) (unknown) (no date) (unknown) (unknown) : 1935 Acct:[id number] (units unknown) (unknown) (unknown) (no date) (unknown) (unknown) Degenerative (units unknown) (unknown) (unknown) (no date) (unknown) (unknown) Dictated by: Johny Resendez M.D. on 02/08/2023 at 17:06 (units unknown) (unknown) (unknown) (no date) (unknown) (unknown) FINDINGS: (units unknown) (unknown) (unknown) (no date) (unknown) (unknown) IMPRESSION: (units unknown) (unknown) (unknown) (no date) (unknown) (unknown) INDICATIONS: Wedge compression fracture of second lumbar vertebra, subseq (units unknown) (unknown) (unknown) (no date) (unknown) (unknown) [facility] (units unknown) (unknown) (unknown) (no date) (unknown) (unknown) Loc: RAD (units unknown) (unknown) (unknown) (no date) (unknown) (unknown) No (units unknown) (unknown) (unknown) (no date) (unknown) (unknown) Ordering Provider: Doron Guardado MD (units unknown) (unknown) (unknown) (no date) (unknown) (unknown) PROCEDURE: XR LUMBAR SPINE 2-3V (units unknown) (unknown) (unknown) (no date) (unknown) (unknown) Patient: Jonny Neely MR#: [id number] (units unknown) (unknown) (unknown) (no date) (unknown) (unknown) Procedure: XR lumbar spine 2-3V (units unknown) (unknown) (unknown) (no date) (unknown) (unknown) Signed (units unknown) (unknown) (unknown) (no date) (unknown) (unknown) Soft tissues: Overlying bowel gas pattern is normal. No suspicious soft tissue (units unknown) (unknown) (unknown) (no date) (unknown) (unknown) TECHNIQUE: 3 views of the lumbar spine were acquired. (units unknown) (unknown) (unknown) (no date) (unknown) (unknown) There is interval up to 50 percent loss of L5 vertebral body height. (units unknown) (unknown) (unknown) (no date) (unknown) (unknown) XRay Report (units unknown) (unknown) (unknown) (no date) (unknown) (unknown) calcifications. (units unknown) (unknown) (unknown) (no date) (unknown) (unknown) deformities (units unknown) (unknown) (unknown) (no date) (unknown) (unknown) endplate changes and bilateral facet arthrosis throughout lumbar spine is seen. (units unknown) (unknown) (unknown) (no date) (unknown) (unknown) involving L1 through L4 vertebral bodies are again seen unchanged from prior (units unknown) (unknown) (unknown) (no date) (unknown) (unknown) levels. (units unknown) (unknown) (unknown) (no date) (unknown) (unknown) lordosis. 4 millimeter retrolisthesis of L1 on L2 and 8 millimeter (units unknown) (unknown) (unknown) (no date) (unknown) (unknown) lumbar spine. (units unknown) (unknown) (unknown) (no date) (unknown) (unknown) on L3 is seen. Subacute to chronic appearing anterior wedge compression (units unknown) (unknown) (unknown) (no date) (unknown) (unknown) retrolisthesis of L2 (units unknown) (unknown) (unknown) (no date) (unknown) (unknown) study. (units unknown) (unknown) (unknown) (no date) (unknown) (unknown) suspicious bony lesions. (units unknown) (unknown) (unknown) (no date) (unknown) (unknown) throughout (units unknown) (unknown) (unknown) (no date) (unknown) (unknown) with up to (units unknown) (unknown) Result panel 114 (unknown) (no date) (unknown) (unknown) 1.1 % (unknown) (unknown) (no date) (unknown) (unknown) 1.2 % (unknown) (unknown) (no date) (unknown) (unknown) 100 /ul (unknown) (unknown) (no date) (unknown) (unknown) 100 /ul (unknown) (unknown) (no date) (unknown) (unknown) 11.8 g/dl (unknown) (unknown) (no date) (unknown) (unknown) 1100 /ul (unknown) (unknown) (no date) (unknown) (unknown) 15.0 % (unknown) (unknown) (no date) (unknown) (unknown) 16.6 % (unknown) (unknown) (no date) (unknown) (unknown) 183 x10 3/ul (unknown) (unknown) (no date) (unknown) (unknown) 3.76 x10 6/ul (unknown) (unknown) (no date) (unknown) (unknown) 31.3 pg (unknown) (unknown) (no date) (unknown) (unknown) 33.1 % (unknown) (unknown) (no date) (unknown) (unknown) 35.6 % (unknown) (unknown) (no date) (unknown) (unknown) 5600 /ul (unknown) (unknown) (no date) (unknown) (unknown) 600 /ul (unknown) (unknown) (no date) (unknown) (unknown) 7.6 x10 3/ul (unknown) (unknown) (no date) (unknown) (unknown) 74.4 % (unknown) (unknown) (no date) (unknown) (unknown) 8.3 % (unknown) (unknown) (no date) (unknown) (unknown) 94.6 fl (unknown) Result panel 115 (unknown) (no date) (unknown) (unknown) > 60 ml/min (unknown) (unknown) (no date) (unknown) (unknown) > 60 ml/min (unknown) (unknown) (no date) (unknown) (unknown) 0.6 mg/dl (unknown) (unknown) (no date) (unknown) (unknown) 1.0 (units unknown) (unknown) (unknown) (no date) (unknown) (unknown) 1.05 mg/dl (unknown) (unknown) (no date) (unknown) (unknown) 107 mmol/l (unknown) (unknown) (no date) (unknown) (unknown) 136 mg/dl (unknown) (unknown) (no date) (unknown) (unknown) 136 mg/dl (unknown) (unknown) (no date) (unknown) (unknown) 139 mmol/l (unknown) (unknown) (no date) (unknown) (unknown) 14.3 (units unknown) (unknown) (unknown) (no date) (unknown) (unknown) 15 mg/dl (unknown) (unknown) (no date) (unknown) (unknown) 25 mmol/l (unknown) (unknown) (no date) (unknown) (unknown) 28 iu/l (unknown) (unknown) (no date) (unknown) (unknown) 3.4 g/dl (unknown) (unknown) (no date) (unknown) (unknown) 3.4 g/dl (unknown) (unknown) (no date) (unknown) (unknown) 3.6 mmol/l (unknown) (unknown) (no date) (unknown) (unknown) 30 iu/l (unknown) (unknown) (no date) (unknown) (unknown) 6.8 g/dl (unknown) (unknown) (no date) (unknown) (unknown) 8.7 mg/dl (unknown) (unknown) (no date) (unknown) (unknown) 87 u/l (unknown) Result panel 116 (unknown) (no date) (unknown) (unknown) 1.7 (units unknown) (unknown) (unknown) (no date) (unknown) (unknown) 20.0 seconds (unknown) (unknown) (no date) (unknown) (unknown) 37 seconds (unknown) (unknown) (no date) (unknown) (unknown) 37 seconds (unknown) Result panel 117 (unknown) (no date) (unknown) (unknown) B Positive (units unknown) (unknown) (unknown) (no date) (unknown) (unknown) B Positive (units unknown) (unknown) (unknown) (no date) (unknown) (unknown) NEGATIVE (units unknown) (unknown) Result panel 118 (unknown) (no date) (unknown) (unknown) (no value) (units unknown) (unknown) (unknown) (no date) (unknown) (unknown) ([place]) (units unknown) (unknown) (unknown) (no date) (unknown) (unknown) 0.4 mg PO BEDTIME (units unknown) (unknown) (unknown) (no date) (unknown) (unknown) 10/24/22 (units unknown) (unknown) (unknown) (no date) (unknown) (unknown) [id number] (units unknown) (unknown) (unknown) (no date) (unknown) (unknown) 02/18/23 02/18/23 02/18/23 Range/Units (units unknown) (unknown) (unknown) (no date) (unknown) (unknown) 02/18/23 10:16 (units unknown) (unknown) (unknown) (no date) (unknown) (unknown) 02/18/23 10:28 (units unknown) (unknown) (unknown) (no date) (unknown) (unknown) 02/18/23 10:30 (units unknown) (unknown) (unknown) (no date) (unknown) (unknown) 02/18/23 Range/Units (units unknown) (unknown) (unknown) (no date) (unknown) (unknown) 02/18/23 (units unknown) (unknown) (unknown) (no date) (unknown) (unknown) 1 applic TOPICAL DAILY PRN (Reason: Dry Skin) (units unknown) (unknown) (unknown) (no date) (unknown) (unknown) 1 drp OPHTHALMIC (EYE) DAILY (units unknown) (unknown) (unknown) (no date) (unknown) (unknown) 1 patch topical DAILY PRN (Reason: pain) Qty: 30 0RF (units unknown) (unknown) (unknown) (no date) (unknown) (unknown) 1 tab PO DAILY (units unknown) (unknown) (unknown) (no date) (unknown) (unknown) 10:16 10:16 10:16 (units unknown) (unknown) (unknown) (no date) (unknown) (unknown) 10:21 02/18/23 (units unknown) (unknown) (unknown) (no date) (unknown) (unknown) 10:22 02/18/23 (units unknown) (unknown) (unknown) (no date) (unknown) (unknown) 10:28 (units unknown) (unknown) (unknown) (no date) (unknown) (unknown) 10:30 02/18/23 (units unknown) (unknown) (unknown) (no date) (unknown) (unknown) 10:30 (units unknown) (unknown) (unknown) (no date) (unknown) (unknown) 10:45 02/18/23 (units unknown) (unknown) (unknown) (no date) (unknown) (unknown) 10:45 (units unknown) (unknown) (unknown) (no date) (unknown) (unknown) 11:00 02/18/23 (units unknown) (unknown) (unknown) (no date) (unknown) (unknown) 11:15 02/18/23 (units unknown) (unknown) (unknown) (no date) (unknown) (unknown) 11:15 (units unknown) (unknown) (unknown) (no date) (unknown) (unknown) 11:30 02/18/23 (units unknown) (unknown) (unknown) (no date) (unknown) (unknown) 11:30 (units unknown) (unknown) (unknown) (no date) (unknown) (unknown) 11:45 02/18/23 (units unknown) (unknown) (unknown) (no date) (unknown) (unknown) 12:00 02/18/23 (units unknown) (unknown) (unknown) (no date) (unknown) (unknown) 12:00 (units unknown) (unknown) (unknown) (no date) (unknown) (unknown) 12:15 02/18/23 (units unknown) (unknown) (unknown) (no date) (unknown) (unknown) 12:15 (units unknown) (unknown) (unknown) (no date) (unknown) (unknown) 150 mg PO BID (units unknown) (unknown) (unknown) (no date) (unknown) (unknown) 20 mg PO DAILY (units unknown) (unknown) (unknown) (no date) (unknown) (unknown) 20 mg PO QPM (units unknown) (unknown) (unknown) (no date) (unknown) (unknown) 240 mg PO DAILY (units unknown) (unknown) (unknown) (no date) (unknown) (unknown) 400 mg PO TID Qty: 30 0RF (units unknown) (unknown) (unknown) (no date) (unknown) (unknown) 5 mg PO DAILY (units unknown) (unknown) (unknown) (no date) (unknown) (unknown) 50 mg PO Q8H PRN (Reason: pain) Qty: 10 0RF (units unknown) (unknown) (unknown) (no date) (unknown) (unknown) ALT (<50) IU/L (units unknown) (unknown) (unknown) (no date) (unknown) (unknown) ALT 28 (<50) IU/L (units unknown) (unknown) (unknown) (no date) (unknown) (unknown) APTT (26-36) SECONDS (units unknown) (unknown) (unknown) (no date) (unknown) (unknown) APTT 37 H (26-36) SECONDS (units unknown) (unknown) (unknown) (no date) (unknown) (unknown) AST (17-59) IU/L (units unknown) (unknown) (unknown) (no date) (unknown) (unknown) AST 30 (17-59) IU/L (units unknown) (unknown) (unknown) (no date) (unknown) (unknown) Age/Sex: 87 / M (units unknown) (unknown) (unknown) (no date) (unknown) (unknown) Albumin (3.5-5.0) g/dL (units unknown) (unknown) (unknown) (no date) (unknown) (unknown) Albumin 3.4 L (3.5-5.0) g/dL (units unknown) (unknown) (unknown) (no date) (unknown) (unknown) Albumin/Globulin Ratio (1.0-2.8) (units unknown) (unknown) (unknown) (no date) (unknown) (unknown) Albumin/Globulin Ratio 1.0 (1.0-2.8) (units unknown) (unknown) (unknown) (no date) (unknown) (unknown) Alkaline Phosphatase (38-126) U/L (units unknown) (unknown) (unknown) (no date) (unknown) (unknown) Alkaline Phosphatase 87 (38-126) U/L (units unknown) (unknown) (unknown) (no date) (unknown) (unknown) Allergies (units unknown) (unknown) (unknown) (no date) (unknown) (unknown) Allergy/AdvReac Type Severity Reaction Status Date / Time (units unknown) (unknown) (unknown) (no date) (unknown) (unknown) Antibody Screen Negative (units unknown) (unknown) (unknown) (no date) (unknown) (unknown) Antibody Screen (units unknown) (unknown) (unknown) (no date) (unknown) (unknown) BPH (benign prostatic hyperplasia) (units unknown) (unknown) (unknown) (no date) (unknown) (unknown) BUN (9-20) mg/dL (units unknown) (unknown) (unknown) (no date) (unknown) (unknown) BUN 15 (9-20) mg/dL (units unknown) (unknown) (unknown) (no date) (unknown) (unknown) BUN/Creatinine Ratio (6-22) (units unknown) (unknown) (unknown) (no date) (unknown) (unknown) BUN/Creatinine Ratio 14.3 (6-22) (units unknown) (unknown) (unknown) (no date) (unknown) (unknown) Baso # (Auto) (0-100) /uL (units unknown) (unknown) (unknown) (no date) (unknown) (unknown) Baso # (Auto) 100 (0-100) /uL (units unknown) (unknown) (unknown) (no date) (unknown) (unknown) Baso % (Auto) (0-2) % (units unknown) (unknown) (unknown) (no date) (unknown) (unknown) Baso % (Auto) 1.1 (0-2) % (units unknown) (unknown) (unknown) (no date) (unknown) (unknown) Blood Pressure 100/66 94/59 L (units unknown) (unknown) (unknown) (no date) (unknown) (unknown) Blood Pressure 87/56 L 92/55 L (units unknown) (unknown) (unknown) (no date) (unknown) (unknown) Blood Pressure 91/53 L (units unknown) (unknown) (unknown) (no date) (unknown) (unknown) Blood Pressure 93/60 02/18/23 10:21 (units unknown) (unknown) (unknown) (no date) (unknown) (unknown) Blood Pressure 93/60 88/65 L (units unknown) (unknown) (unknown) (no date) (unknown) (unknown) Blood Pressure 94/56 L (units unknown) (unknown) (unknown) (no date) (unknown) (unknown) Blood Pressure 98/57 L (units unknown) (unknown) (unknown) (no date) (unknown) (unknown) Blood Type B Positive (units unknown) (unknown) (unknown) (no date) (unknown) (unknown) Blood Type (units unknown) (unknown) (unknown) (no date) (unknown) (unknown) Calcium (8.4-10.2) mg/dL (units unknown) (unknown) (unknown) (no date) (unknown) (unknown) Calcium 8.7 (8.4-10.2) mg/dL (units unknown) (unknown) (unknown) (no date) (unknown) (unknown) Carbon Dioxide (22-32) mmol/L (units unknown) (unknown) (unknown) (no date) (unknown) (unknown) Carbon Dioxide 25 (22-32) mmol/L (units unknown) (unknown) (unknown) (no date) (unknown) (unknown) Chief complaint: GI Bleed (units unknown) (unknown) (unknown) (no date) (unknown) (unknown) Chloride (98-107) mmol/L (units unknown) (unknown) (unknown) (no date) (unknown) (unknown) Chloride 107 (98-107) mmol/L (units unknown) (unknown) (unknown) (no date) (unknown) (unknown) Chronic anticoagulation (units unknown) (unknown) (unknown) (no date) (unknown) (unknown) Complete Blood Count AUTO DIFF Stat (units unknown) (unknown) (unknown) (no date) (unknown) (unknown) Complex-Vitamin B12 tablet) (units unknown) (unknown) (unknown) (no date) (unknown) (unknown) Comprehensive Metabolic Panel Stat (units unknown) (unknown) (unknown) (no date) (unknown) (unknown) Course (units unknown) (unknown) (unknown) (no date) (unknown) (unknown) Creatinine (0.66-1.25) mg/dL (units unknown) (unknown) (unknown) (no date) (unknown) (unknown) Creatinine 1.05 (0.66-1.25) mg/dL (units unknown) (unknown) (unknown) (no date) (unknown) (unknown) : 1935 Acct:[id number] (units unknown) (unknown) (unknown) (no date) (unknown) (unknown) Date of Service: 02/18/23 (units unknown) (unknown) (unknown) (no date) (unknown) (unknown) Departure (units unknown) (unknown) (unknown) (no date) (unknown) (unknown) Discharge Plan (units unknown) (unknown) (unknown) (no date) (unknown) (unknown) Discontinued Medications (units unknown) (unknown) (unknown) (no date) (unknown) (unknown) Documented By: [facility] (units unknown) (unknown) (unknown) (no date) (unknown) (unknown) ED Orders (units unknown) (unknown) (unknown) (no date) (unknown) (unknown) EKG-12 Lead Stat (units unknown) (unknown) (unknown) (no date) (unknown) (unknown) ER Physician: Natalie Hernandez D.O. (units unknown) (unknown) (unknown) (no date) (unknown) (unknown) Emergency Report (units unknown) (unknown) (unknown) (no date) (unknown) (unknown) Eos # (Auto) (0-450) /uL (units unknown) (unknown) (unknown) (no date) (unknown) (unknown) Eos # (Auto) 100 (0-450) /uL (units unknown) (unknown) (unknown) (no date) (unknown) (unknown) Eos % (Auto) (2-4) % (units unknown) (unknown) (unknown) (no date) (unknown) (unknown) Eos % (Auto) 1.2 L (2-4) % (units unknown) (unknown) (unknown) (no date) (unknown) (unknown) Estimated GFR > 60 (>60) mL/min (units unknown) (unknown) (unknown) (no date) (unknown) (unknown) Estimated GFR (>60) mL/min (units unknown) (unknown) (unknown) (no date) (unknown) (unknown) Exam (units unknown) (unknown) (unknown) (no date) (unknown) (unknown) Family History (units unknown) (unknown) (unknown) (no date) (unknown) (unknown) Father No problems noted. (units unknown) (unknown) (unknown) (no date) (unknown) (unknown) General (units unknown) (unknown) (unknown) (no date) (unknown) (unknown) Globulin (1.7-4.1) g/dL (units unknown) (unknown) (unknown) (no date) (unknown) (unknown) Globulin 3.4 (1.7-4.1) g/dL (units unknown) (unknown) (unknown) (no date) (unknown) (unknown) Glucose (80-110) mg/dL (units unknown) (unknown) (unknown) (no date) (unknown) (unknown) Glucose 136 H (80-110) mg/dL (units unknown) (unknown) (unknown) (no date) (unknown) (unknown) HPI - GI Bleed (units unknown) (unknown) (unknown) (no date) (unknown) (unknown) Hct (41-53) % (units unknown) (unknown) (unknown) (no date) (unknown) (unknown) Hct 35.6 L (41-53) % (units unknown) (unknown) (unknown) (no date) (unknown) (unknown) Hgb (13.5-17.5) g/dL (units unknown) (unknown) (unknown) (no date) (unknown) (unknown) Hgb 11.8 L (13.5-17.5) g/dL (units unknown) (unknown) (unknown) (no date) (unknown) (unknown) History of permanent cardiac pacemaker placement (units unknown) (unknown) (unknown) (no date) (unknown) (unknown) Home Medications (units unknown) (unknown) (unknown) (no date) (unknown) (unknown) INR (0.9-1.3) (units unknown) (unknown) (unknown) (no date) (unknown) (unknown) INR 1.7 H (0.9-1.3) (units unknown) (unknown) (unknown) (no date) (unknown) (unknown) Initial Vital Signs (units unknown) (unknown) (unknown) (no date) (unknown) (unknown) Initial Vital Signs: (units unknown) (unknown) (unknown) (no date) (unknown) (unknown) [address] [address] (units unknown) (unknown) (unknown) (no date) (unknown) (unknown) Lab Data (units unknown) (unknown) (unknown) (no date) (unknown) (unknown) Lab Results (units unknown) (unknown) (unknown) (no date) (unknown) (unknown) Labs: (units unknown) (unknown) (unknown) (no date) (unknown) (unknown) Last Admin: 02/18/23 11:36 Dose: 80 mg (units unknown) (unknown) (unknown) (no date) (unknown) (unknown) [place] 0.01 % Drops (units unknown) (unknown) (unknown) (no date) (unknown) (unknown) Lymph # (Auto) (8235-8088) /uL (units unknown) (unknown) (unknown) (no date) (unknown) (unknown) Lymph # (Auto) 1100 (4677-0784) /uL (units unknown) (unknown) (unknown) (no date) (unknown) (unknown) Lymph % (Auto) (25-40) % (units unknown) (unknown) (unknown) (no date) (unknown) (unknown) Lymph % (Auto) 15.0 L (25-40) % (units unknown) (unknown) (unknown) (no date) (unknown) (unknown) MCH (26-34) PG (units unknown) (unknown) (unknown) (no date) (unknown) (unknown) MCH 31.3 (26-34) PG (units unknown) (unknown) (unknown) (no date) (unknown) (unknown) MCHC (30-36) % (units unknown) (unknown) (unknown) (no date) (unknown) (unknown) MCHC 33.1 (30-36) % (units unknown) (unknown) (unknown) (no date) (unknown) (unknown) MCV (80-100) fL (units unknown) (unknown) (unknown) (no date) (unknown) (unknown) MCV 94.6 (80-100) fL (units unknown) (unknown) (unknown) (no date) (unknown) (unknown) MDM - GI Bleed (units unknown) (unknown) (unknown) (no date) (unknown) (unknown) Medical History (units unknown) (unknown) (unknown) (no date) (unknown) (unknown) Medication Instructions Recorded Confirmed (units unknown) (unknown) (unknown) (no date) (unknown) (unknown) Medication Instructions Recorded (units unknown) (unknown) (unknown) (no date) (unknown) (unknown) Miscellaneous,Doctor , MD [Primary Care Provider] (units unknown) (unknown) (unknown) (no date) (unknown) (unknown) Mode of arrival: EMS (units unknown) (unknown) (unknown) (no date) (unknown) (unknown) [place] # (Auto) (0-900) /uL (units unknown) (unknown) (unknown) (no date) (unknown) (unknown) [place] # (Auto) 600 (0-900) /uL (units unknown) (unknown) (unknown) (no date) (unknown) (unknown) [place] % (Auto) (3-14) % (units unknown) (unknown) (unknown) (no date) (unknown) (unknown) [place] % (Auto) 8.3 (3-14) % (units unknown) (unknown) (unknown) (no date) (unknown) (unknown) Mother Cancer (units unknown) (unknown) (unknown) (no date) (unknown) (unknown) Neut # (Auto) (0000-3879) /uL (units unknown) (unknown) (unknown) (no date) (unknown) (unknown) Neut # (Auto) 5600 (1271-2599) /uL (units unknown) (unknown) (unknown) (no date) (unknown) (unknown) Neut % (Auto) (50-75) % (units unknown) (unknown) (unknown) (no date) (unknown) (unknown) Neut % (Auto) 74.4 (50-75) % (units unknown) (unknown) (unknown) (no date) (unknown) (unknown) No Action (units unknown) (unknown) (unknown) (no date) (unknown) (unknown) No Known Drug Allergies Allergy Verified 02/18/23 10:27 (units unknown) (unknown) (unknown) (no date) (unknown) (unknown) Ondansetron HCl (Ondansetron 4 Mg/2 Ml Inj) 4 mg IV NOW PRN (units unknown) (unknown) (unknown) (no date) (unknown) (unknown) Ordered: (units unknown) (unknown) (unknown) (no date) (unknown) (unknown) Orders (units unknown) (unknown) (unknown) (no date) (unknown) (unknown) Osteoporosis (units unknown) (unknown) (unknown) (no date) (unknown) (unknown) Oxygen Delivery Method Room Air 02/18/23 10:21 (units unknown) (unknown) (unknown) (no date) (unknown) (unknown) Oxygen Delivery Method Room Air (units unknown) (unknown) (unknown) (no date) (unknown) (unknown) Oxygen Delivery Method (units unknown) (unknown) (unknown) (no date) (unknown) (unknown) PRN Reason: Nausea And Vomiting (units unknown) (unknown) (unknown) (no date) (unknown) (unknown) PT (10.1-12.7) SECONDS (units unknown) (unknown) (unknown) (no date) (unknown) (unknown) PT 20.0 H (10.1-12.7) SECONDS (units unknown) (unknown) (unknown) (no date) (unknown) (unknown) PTT Partial Thromboplastin Rodriguez Stat (units unknown) (unknown) (unknown) (no date) (unknown) (unknown) Pantoprazole Sodium (Pantoprazole 40 Mg Vial) 80 mg IV NOW ONE (units unknown) (unknown) (unknown) (no date) (unknown) (unknown) Patient History (units unknown) (unknown) (unknown) (no date) (unknown) (unknown) Patient: Jonny Neely MR#: [id number] (units unknown) (unknown) (unknown) (no date) (unknown) (unknown) Plt Count (150-400) X103/uL (units unknown) (unknown) (unknown) (no date) (unknown) (unknown) Plt Count 183 (150-400) X103/uL (units unknown) (unknown) (unknown) (no date) (unknown) (unknown) Potassium (3.4-5.1) mmol/L (units unknown) (unknown) (unknown) (no date) (unknown) (unknown) Potassium 3.6 (3.4-5.1) mmol/L (units unknown) (unknown) (unknown) (no date) (unknown) (unknown) Prescriptions: (units unknown) (unknown) (unknown) (no date) (unknown) (unknown) Previous Rx's (units unknown) (unknown) (unknown) (no date) (unknown) (unknown) Prothrombin Time INR Stat (units unknown) (unknown) (unknown) (no date) (unknown) (unknown) Pulse Oximetry 97 96 (units unknown) (unknown) (unknown) (no date) (unknown) (unknown) Pulse Oximetry 97 (units unknown) (unknown) (unknown) (no date) (unknown) (unknown) Pulse Oximetry 98 02/18/23 10:21 (units unknown) (unknown) (unknown) (no date) (unknown) (unknown) Pulse Oximetry 98 97 (units unknown) (unknown) (unknown) (no date) (unknown) (unknown) Pulse Oximetry 98 98 (units unknown) (unknown) (unknown) (no date) (unknown) (unknown) Pulse Oximetry 99 98 (units unknown) (unknown) (unknown) (no date) (unknown) (unknown) Pulse Oximetry 99 (units unknown) (unknown) (unknown) (no date) (unknown) (unknown) Pulse Rate 101 H 81 (units unknown) (unknown) (unknown) (no date) (unknown) (unknown) Pulse Rate 75 (units unknown) (unknown) (unknown) (no date) (unknown) (unknown) Pulse Rate 77 (units unknown) (unknown) (unknown) (no date) (unknown) (unknown) Pulse Rate 78 74 (units unknown) (unknown) (unknown) (no date) (unknown) (unknown) Pulse Rate 80 76 (units unknown) (unknown) (unknown) (no date) (unknown) (unknown) Pulse Rate 81 02/18/23 10:21 (units unknown) (unknown) (unknown) (no date) (unknown) (unknown) Pulse Rate 81 98 H (units unknown) (unknown) (unknown) (no date) (unknown) (unknown) RBC (4.5-5.9) X106/uL (units unknown) (unknown) (unknown) (no date) (unknown) (unknown) RBC 3.76 L (4.5-5.9) X106/uL (units unknown) (unknown) (unknown) (no date) (unknown) (unknown) RDW (11.6-14.8) % (units unknown) (unknown) (unknown) (no date) (unknown) (unknown) RDW 16.6 H (11.6-14.8) % (units unknown) (unknown) (unknown) (no date) (unknown) (unknown) Referrals: (units unknown) (unknown) (unknown) (no date) (unknown) (unknown) Related Data (units unknown) (unknown) (unknown) (no date) (unknown) (unknown) Respiratory Rate 12 15 (units unknown) (unknown) (unknown) (no date) (unknown) (unknown) Respiratory Rate 13 (units unknown) (unknown) (unknown) (no date) (unknown) (unknown) Respiratory Rate 15 (units unknown) (unknown) (unknown) (no date) (unknown) (unknown) Respiratory Rate 16 02/18/23 10:21 (units unknown) (unknown) (unknown) (no date) (unknown) (unknown) Respiratory Rate 16 15 (units unknown) (unknown) (unknown) (no date) (unknown) (unknown) Respiratory Rate 18 13 (units unknown) (unknown) (unknown) (no date) (unknown) (unknown) Respiratory Rate 21 14 (units unknown) (unknown) (unknown) (no date) (unknown) (unknown) Rx Instructions: (units unknown) (unknown) (unknown) (no date) (unknown) (unknown) Signed By: (units unknown) (unknown) (unknown) (no date) (unknown) (unknown) Smoking Status: Never smoker (units unknown) (unknown) (unknown) (no date) (unknown) (unknown) Social History (units unknown) (unknown) (unknown) (no date) (unknown) (unknown) Sodium (137-145) mmol/L (units unknown) (unknown) (unknown) (no date) (unknown) (unknown) Sodium 139 (137-145) mmol/L (units unknown) (unknown) (unknown) (no date) (unknown) (unknown) Source: patient and EMS (units unknown) (unknown) (unknown) (no date) (unknown) (unknown) Stated complaint: Possible GI bleed (units unknown) (unknown) (unknown) (no date) (unknown) (unknown) Stop: 02/18/23 10:19 (units unknown) (unknown) (unknown) (no date) (unknown) (unknown) Substance Use Type: does not use (units unknown) (unknown) (unknown) (no date) (unknown) (unknown) Surgical History (units unknown) (unknown) (unknown) (no date) (unknown) (unknown) Temperature 98.7 F 02/18/23 10:21 (units unknown) (unknown) (unknown) (no date) (unknown) (unknown) Temperature 98.7 F (units unknown) (unknown) (unknown) (no date) (unknown) (unknown) Temperature (units unknown) (unknown) (unknown) (no date) (unknown) (unknown) Time Seen by Provider: 02/18/23 12:57 (units unknown) (unknown) (unknown) (no date) (unknown) (unknown) Total Bilirubin (0.2-1.3) mg/dL (units unknown) (unknown) (unknown) (no date) (unknown) (unknown) Total Bilirubin 0.6 (0.2-1.3) mg/dL (units unknown) (unknown) (unknown) (no date) (unknown) (unknown) Total Protein (6.3-8.2) g/dL (units unknown) (unknown) (unknown) (no date) (unknown) (unknown) Total Protein 6.8 (6.3-8.2) g/dL (units unknown) (unknown) (unknown) (no date) (unknown) (unknown) Type and Screen Stat (units unknown) (unknown) (unknown) (no date) (unknown) (unknown) Vital Signs - 8 hr (units unknown) (unknown) (unknown) (no date) (unknown) (unknown) Vital Signs (units unknown) (unknown) (unknown) (no date) (unknown) (unknown) Vital signs: (units unknown) (unknown) (unknown) (no date) (unknown) (unknown) WBC (4.5-11.0) X103/uL (units unknown) (unknown) (unknown) (no date) (unknown) (unknown) WBC 7.6 (4.5-11.0) X103/uL (units unknown) (unknown) (unknown) (no date) (unknown) (unknown) Xarelto 20 mg Tablet (units unknown) (unknown) (unknown) (no date) (unknown) (unknown) [Embedded Image Not Available] (units unknown) (unknown) (unknown) (no date) (unknown) (unknown) alcohol intake frequency: 0-2 drinks per day (units unknown) (unknown) (unknown) (no date) (unknown) (unknown) alcohol intake: current (units unknown) (unknown) (unknown) (no date) (unknown) (unknown) bimatoprost 0.01 % eye drops 1 drp ophthalmic (eye) DAILY 10/24/22 10/24/22 (units unknown) (unknown) (unknown) (no date) (unknown) (unknown) bupropion HCl 150 mg Tablet Sustained-Release 12 Hr (units unknown) (unknown) (unknown) (no date) (unknown) (unknown) bupropion HCl 150 mg tablet,12 hr 150 mg PO BID 10/24/22 10/24/22 (units unknown) (unknown) (unknown) (no date) (unknown) (unknown) capsule,extended release 24 hr (units unknown) (unknown) (unknown) (no date) (unknown) (unknown) diltiazem HCl 240 mg 240 mg PO DAILY 10/24/22 10/24/22 (units unknown) (unknown) (unknown) (no date) (unknown) (unknown) diltiazem HCl 240 mg Capsule,Extended Release 24hr (units unknown) (unknown) (unknown) (no date) (unknown) (unknown) dorzolamide 22.3 mg-timolol 6.8 1 drp ophthalmic (eye) DAILY 10/24/22 10/24/22 (units unknown) (unknown) (unknown) (no date) (unknown) (unknown) dorzolamide-timolol 22.3-6.8 mg/mL Drops (units unknown) (unknown) (unknown) (no date) (unknown) (unknown) ea (units unknown) (unknown) (unknown) (no date) (unknown) (unknown) finasteride 5 mg Tablet (units unknown) (unknown) (unknown) (no date) (unknown) (unknown) finasteride 5 mg tablet 5 mg PO DAILY 10/24/22 10/24/22 (units unknown) (unknown) (unknown) (no date) (unknown) (unknown) gabapentin 400 mg capsule 400 mg PO TID #30 caps 12/04/22 (units unknown) (unknown) (unknown) (no date) (unknown) (unknown) gabapentin 400 mg capsule (units unknown) (unknown) (unknown) (no date) (unknown) (unknown) household members: none and other (units unknown) (unknown) (unknown) (no date) (unknown) (unknown) leave on most painful area for up to 12 hrs (units unknown) (unknown) (unknown) (no date) (unknown) (unknown) lidocaine 5 % adhesive patch,medicated (units unknown) (unknown) (unknown) (no date) (unknown) (unknown) lidocaine 5 % topical patch 1 patch topical DAILY PRN pain #30 12/04/22 (units unknown) (unknown) (unknown) (no date) (unknown) (unknown) mg/mL eye drops (units unknown) (unknown) (unknown) (no date) (unknown) (unknown) must administer with evening meal (units unknown) (unknown) (unknown) (no date) (unknown) (unknown) omeprazole 20 mg Capsule,Delayed Release(Dr/Ec) (units unknown) (unknown) (unknown) (no date) (unknown) (unknown) omeprazole 20 mg capsule,delayed 20 mg PO DAILY 10/24/22 10/24/22 (units unknown) (unknown) (unknown) (no date) (unknown) (unknown) release (units unknown) (unknown) (unknown) (no date) (unknown) (unknown) right eye (units unknown) (unknown) (unknown) (no date) (unknown) (unknown) rivaroxaban 20 mg tablet (Xarelto) 20 mg PO QPM 10/24/22 10/24/22 (units unknown) (unknown) (unknown) (no date) (unknown) (unknown) sustained-release (units unknown) (unknown) (unknown) (no date) (unknown) (unknown) tamsulosin 0.4 mg Capsule (units unknown) (unknown) (unknown) (no date) (unknown) (unknown) tamsulosin 0.4 mg capsule 0.4 mg PO BEDTIME 10/24/22 10/24/22 (units unknown) (unknown) (unknown) (no date) (unknown) (unknown) topical ointment (units unknown) (unknown) (unknown) (no date) (unknown) (unknown) tramadol 50 mg tablet 50 mg PO Q8H PRN pain #10 tabs 12/04/22 (units unknown) (unknown) (unknown) (no date) (unknown) (unknown) tramadol 50 mg tablet 50 mg PO Q8H PRN pain #10 tabs 12/25/22 (units unknown) (unknown) (unknown) (no date) (unknown) (unknown) tramadol 50 mg tablet (units unknown) (unknown) (unknown) (no date) (unknown) (unknown) triamcinolone acetonide 0.1 % 1 applic topical DAILY PRN Dry Skin 10/24/22 (units unknown) (unknown) (unknown) (no date) (unknown) (unknown) triamcinolone acetonide 0.1 % Ointment (units unknown) (unknown) (unknown) (no date) (unknown) (unknown) vitamin B complex (B 1 tab PO DAILY 10/24/22 10/24/22 (units unknown) (unknown) (unknown) (no date) (unknown) (unknown) vitamin B complex [B Complex-Vitamin B12] Tablet (units unknown) (unknown) Result panel 119 (unknown) (no date) (unknown) (unknown) (no value) (units unknown) (unknown) (unknown) (no date) (unknown) (unknown) [id number] (units unknown) (unknown) (unknown) (no date) (unknown) (unknown) 02/18/23 (units unknown) (unknown) (unknown) (no date) (unknown) (unknown) [facility] [address] [place] [address] (units unknown) (unknown) (unknown) (no date) (unknown) (unknown) ABDOMEN: (units unknown) (unknown) (unknown) (no date) (unknown) (unknown) Abdominal Nodes: No retroperitoneal or mesenteric adenopathy by size criteria. (units unknown) (unknown) (unknown) (no date) (unknown) (unknown) Accession Number: [id number] (units unknown) (unknown) (unknown) (no date) (unknown) (unknown) Adrenal Glands: Unremarkable. (units unknown) (unknown) (unknown) (no date) (unknown) (unknown) After the administration of intravenous contrast, axial sections acquired from (units unknown) (unknown) (unknown) (no date) (unknown) (unknown) Age/Sex: 87 / M Date of Service: (units unknown) (unknown) (unknown) (no date) (unknown) (unknown) [place] [address] (units unknown) (unknown) (unknown) (no date) (unknown) (unknown) Approved by: Jl Langford M.D. on 02/18/2023 at 15:06 (units unknown) (unknown) (unknown) (no date) (unknown) (unknown) Biliary ducts: Unremarkable. (units unknown) (unknown) (unknown) (no date) (unknown) (unknown) Bladder: Unremarkable. (units unknown) (unknown) (unknown) (no date) (unknown) (unknown) Bones: Unremarkable. (units unknown) (unknown) (unknown) (no date) (unknown) (unknown) COMPARISON: [facility], CT, CT CHEST ABD PEL W CON, 10/24/2022, 18:44. (units unknown) (unknown) (unknown) (no date) (unknown) (unknown) CT Scan Report (units unknown) (unknown) (unknown) (no date) (unknown) (unknown) : 1935 Acct:[id number] (units unknown) (unknown) (unknown) (no date) (unknown) (unknown) Dictated by: Jl Langford M.D. on 02/18/2023 at 15:02 (units unknown) (unknown) (unknown) (no date) (unknown) (unknown) Extensive descending colonic and sigmoid colonic diverticulosis but without (units unknown) (unknown) (unknown) (no date) (unknown) (unknown) FINDINGS: (units unknown) (unknown) (unknown) (no date) (unknown) (unknown) For (units unknown) (unknown) (unknown) (no date) (unknown) (unknown) Gallbladder: The gallbladder contains numerous peripherally faintly calcified (units unknown) (unknown) (unknown) (no date) (unknown) (unknown) Heart: No significant findings. (units unknown) (unknown) (unknown) (no date) (unknown) (unknown) Hospital, CT, CT PEL WO CON, 12/25/2022, 14:06. (units unknown) (unknown) (unknown) (no date) (unknown) (unknown) IMPRESSION: Numerous small to moderate-sized gallstones within the gallbladder (units unknown) (unknown) (unknown) (no date) (unknown) (unknown) INDICATIONS: gi bleed, likely lower, weight loss (units unknown) (unknown) (unknown) (no date) (unknown) (unknown) Image quality: Excellent. (units unknown) (unknown) (unknown) (no date) (unknown) (unknown) [facility] (units unknown) (unknown) (unknown) (no date) (unknown) (unknown) [place] (units unknown) (unknown) (unknown) (no date) (unknown) (unknown) Kidneys and Ureters: Unremarkable. (units unknown) (unknown) (unknown) (no date) (unknown) (unknown) Liver: Unremarkable. (units unknown) (unknown) (unknown) (no date) (unknown) (unknown) Loc: ED (units unknown) (unknown) (unknown) (no date) (unknown) (unknown) Lung bases: Unremarkable. (units unknown) (unknown) (unknown) (no date) (unknown) (unknown) Miscellaneous: No hernias are seen. Note is made of moderately severe (units unknown) (unknown) (unknown) (no date) (unknown) (unknown) No active bleeding at time of CT scanning found, no mass lesion seen within the (units unknown) (unknown) (unknown) (no date) (unknown) (unknown) Ordering Provider: Natalie Hernandez D.O. (units unknown) (unknown) (unknown) (no date) (unknown) (unknown) PELVIS: (units unknown) (unknown) (unknown) (no date) (unknown) (unknown) PROCEDURE: CT ABDOMEN PELVIS W CON (units unknown) (unknown) (unknown) (no date) (unknown) (unknown) Pancreas: Unremarkable. (units unknown) (unknown) (unknown) (no date) (unknown) (unknown) Patient: Jonny Neely MR#: [id number] (units unknown) (unknown) (unknown) (no date) (unknown) (unknown) Pelvic Nodes: No enlarged lymph nodes. (units unknown) (unknown) (unknown) (no date) (unknown) (unknown) Pelvic Organs: Unremarkable. (units unknown) (unknown) (unknown) (no date) (unknown) (unknown) Peritoneum: No abnormal intraperitoneal fluid. No free air. (units unknown) (unknown) (unknown) (no date) (unknown) (unknown) Procedure: CT abdomen pelvis w con (units unknown) (unknown) (unknown) (no date) (unknown) (unknown) Signed (units unknown) (unknown) (unknown) (no date) (unknown) (unknown) Spleen: Unremarkable. (units unknown) (unknown) (unknown) (no date) (unknown) (unknown) Stomach and Bowel: Stomach, small bowel loops, and colon are unremarkable. (units unknown) (unknown) (unknown) (no date) (unknown) (unknown) TECHNIQUE: (units unknown) (unknown) (unknown) (no date) (unknown) (unknown) Ventral Wall: No hernias. (units unknown) (unknown) (unknown) (no date) (unknown) (unknown) Vessels: Aorta and inferior vena cava are normal in size. (units unknown) (unknown) (unknown) (no date) (unknown) (unknown) acute diverticulitis. (units unknown) (unknown) (unknown) (no date) (unknown) (unknown) adjustment (units unknown) (unknown) (unknown) (no date) (unknown) (unknown) bases to the pubic symphysis. Coronal and sagittal reformats were performed. (units unknown) (unknown) (unknown) (no date) (unknown) (unknown) biliary (units unknown) (unknown) (unknown) (no date) (unknown) (unknown) colonic and sigmoid colonic diverticulosis but no definite acute diverticulitis (units unknown) (unknown) (unknown) (no date) (unknown) (unknown) colonic mass is found. (units unknown) (unknown) (unknown) (no date) (unknown) (unknown) definite (units unknown) (unknown) (unknown) (no date) (unknown) (unknown) descending left (units unknown) (unknown) (unknown) (no date) (unknown) (unknown) distention is associated, however. (units unknown) (unknown) (unknown) (no date) (unknown) (unknown) gallstones, small to moderate in size. No definite acute cholecystitis or (units unknown) (unknown) (unknown) (no date) (unknown) (unknown) lumen but (units unknown) (unknown) (unknown) (no date) (unknown) (unknown) of mA and/or kV according to patient size. (units unknown) (unknown) (unknown) (no date) (unknown) (unknown) or (units unknown) (unknown) (unknown) (no date) (unknown) (unknown) radiation dose reduction, the following was used: automated exposure control, (units unknown) (unknown) (unknown) (no date) (unknown) (unknown) the lung (units unknown) (unknown) (unknown) (no date) (unknown) (unknown) visualized colon. (units unknown) (unknown) (unknown) (no date) (unknown) (unknown) without evidence of acute cholecystitis. (units unknown) (unknown) Result panel 120 (unknown) (no date) (unknown) (unknown) (no value) (units unknown) (unknown) (unknown) (no date) (unknown) (unknown) ([place]um[place]) (units unknown) (unknown) (unknown) (no date) (unknown) (unknown) 0.4 mg PO BEDTIME (units unknown) (unknown) (unknown) (no date) (unknown) (unknown) 10/24/22 (units unknown) (unknown) (unknown) (no date) (unknown) (unknown) [id number] (units unknown) (unknown) (unknown) (no date) (unknown) (unknown) 02/18/23 02/18/23 02/18/23 Range/Units (units unknown) (unknown) (unknown) (no date) (unknown) (unknown) 02/18/23 10:16 (units unknown) (unknown) (unknown) (no date) (unknown) (unknown) 02/18/23 10:28 (units unknown) (unknown) (unknown) (no date) (unknown) (unknown) 02/18/23 10:30 (units unknown) (unknown) (unknown) (no date) (unknown) (unknown) 02/18/23 Range/Units (units unknown) (unknown) (unknown) (no date) (unknown) (unknown) 02/18/23 (units unknown) (unknown) (unknown) (no date) (unknown) (unknown) 1 applic TOPICAL DAILY PRN (Reason: Dry Skin) (units unknown) (unknown) (unknown) (no date) (unknown) (unknown) 1 drp OPHTHALMIC (EYE) DAILY (units unknown) (unknown) (unknown) (no date) (unknown) (unknown) 1 patch topical DAILY PRN (Reason: pain) Qty: 30 0RF (units unknown) (unknown) (unknown) (no date) (unknown) (unknown) 1 tab PO DAILY (units unknown) (unknown) (unknown) (no date) (unknown) (unknown) 10:16 10:16 10:16 (units unknown) (unknown) (unknown) (no date) (unknown) (unknown) 10:21 02/18/23 (units unknown) (unknown) (unknown) (no date) (unknown) (unknown) 10:22 02/18/23 (units unknown) (unknown) (unknown) (no date) (unknown) (unknown) 10:28 (units unknown) (unknown) (unknown) (no date) (unknown) (unknown) 10:30 02/18/23 (units unknown) (unknown) (unknown) (no date) (unknown) (unknown) 10:30 (units unknown) (unknown) (unknown) (no date) (unknown) (unknown) 10:45 02/18/23 (units unknown) (unknown) (unknown) (no date) (unknown) (unknown) 10:45 (units unknown) (unknown) (unknown) (no date) (unknown) (unknown) 11:00 02/18/23 (units unknown) (unknown) (unknown) (no date) (unknown) (unknown) 11:15 02/18/23 (units unknown) (unknown) (unknown) (no date) (unknown) (unknown) 11:15 (units unknown) (unknown) (unknown) (no date) (unknown) (unknown) 11:30 02/18/23 (units unknown) (unknown) (unknown) (no date) (unknown) (unknown) 11:30 (units unknown) (unknown) (unknown) (no date) (unknown) (unknown) 11:45 02/18/23 (units unknown) (unknown) (unknown) (no date) (unknown) (unknown) 12:00 02/18/23 (units unknown) (unknown) (unknown) (no date) (unknown) (unknown) 12:00 (units unknown) (unknown) (unknown) (no date) (unknown) (unknown) 12:15 02/18/23 (units unknown) (unknown) (unknown) (no date) (unknown) (unknown) 12:15 (units unknown) (unknown) (unknown) (no date) (unknown) (unknown) 150 mg PO BID (units unknown) (unknown) (unknown) (no date) (unknown) (unknown) 20 mg PO DAILY (units unknown) (unknown) (unknown) (no date) (unknown) (unknown) 20 mg PO QPM (units unknown) (unknown) (unknown) (no date) (unknown) (unknown) 240 mg PO DAILY (units unknown) (unknown) (unknown) (no date) (unknown) (unknown) 400 mg PO TID Qty: 30 0RF (units unknown) (unknown) (unknown) (no date) (unknown) (unknown) 5 mg PO DAILY (units unknown) (unknown) (unknown) (no date) (unknown) (unknown) 50 mg PO Q8H PRN (Reason: pain) Qty: 10 0RF (units unknown) (unknown) (unknown) (no date) (unknown) (unknown) ALT (<50) IU/L (units unknown) (unknown) (unknown) (no date) (unknown) (unknown) ALT 28 (<50) IU/L (units unknown) (unknown) (unknown) (no date) (unknown) (unknown) APTT (26-36) SECONDS (units unknown) (unknown) (unknown) (no date) (unknown) (unknown) APTT 37 H (26-36) SECONDS (units unknown) (unknown) (unknown) (no date) (unknown) (unknown) AST (17-59) IU/L (units unknown) (unknown) (unknown) (no date) (unknown) (unknown) AST 30 (17-59) IU/L (units unknown) (unknown) (unknown) (no date) (unknown) (unknown) Age/Sex: 87 / M (units unknown) (unknown) (unknown) (no date) (unknown) (unknown) Albumin (3.5-5.0) g/dL (units unknown) (unknown) (unknown) (no date) (unknown) (unknown) Albumin 3.4 L (3.5-5.0) g/dL (units unknown) (unknown) (unknown) (no date) (unknown) (unknown) Albumin/Globulin Ratio (1.0-2.8) (units unknown) (unknown) (unknown) (no date) (unknown) (unknown) Albumin/Globulin Ratio 1.0 (1.0-2.8) (units unknown) (unknown) (unknown) (no date) (unknown) (unknown) Alkaline Phosphatase (38-126) U/L (units unknown) (unknown) (unknown) (no date) (unknown) (unknown) Alkaline Phosphatase 87 (38-126) U/L (units unknown) (unknown) (unknown) (no date) (unknown) (unknown) Allergies (units unknown) (unknown) (unknown) (no date) (unknown) (unknown) Allergy/AdvReac Type Severity Reaction Status Date / Time (units unknown) (unknown) (unknown) (no date) (unknown) (unknown) Antibody Screen Negative (units unknown) (unknown) (unknown) (no date) (unknown) (unknown) Antibody Screen (units unknown) (unknown) (unknown) (no date) (unknown) (unknown) BPH (benign prostatic hyperplasia) (units unknown) (unknown) (unknown) (no date) (unknown) (unknown) BUN (9-20) mg/dL (units unknown) (unknown) (unknown) (no date) (unknown) (unknown) BUN 15 (9-20) mg/dL (units unknown) (unknown) (unknown) (no date) (unknown) (unknown) BUN/Creatinine Ratio (6-22) (units unknown) (unknown) (unknown) (no date) (unknown) (unknown) BUN/Creatinine Ratio 14.3 (6-22) (units unknown) (unknown) (unknown) (no date) (unknown) (unknown) Baso # (Auto) (0-100) /uL (units unknown) (unknown) (unknown) (no date) (unknown) (unknown) Baso # (Auto) 100 (0-100) /uL (units unknown) (unknown) (unknown) (no date) (unknown) (unknown) Baso % (Auto) (0-2) % (units unknown) (unknown) (unknown) (no date) (unknown) (unknown) Baso % (Auto) 1.1 (0-2) % (units unknown) (unknown) (unknown) (no date) (unknown) (unknown) Blood Pressure 100/66 94/59 L (units unknown) (unknown) (unknown) (no date) (unknown) (unknown) Blood Pressure 87/56 L 92/55 L (units unknown) (unknown) (unknown) (no date) (unknown) (unknown) Blood Pressure 91/53 L (units unknown) (unknown) (unknown) (no date) (unknown) (unknown) Blood Pressure 93/60 02/18/23 10:21 (units unknown) (unknown) (unknown) (no date) (unknown) (unknown) Blood Pressure 93/60 88/65 L (units unknown) (unknown) (unknown) (no date) (unknown) (unknown) Blood Pressure 94/56 L (units unknown) (unknown) (unknown) (no date) (unknown) (unknown) Blood Pressure 98/57 L (units unknown) (unknown) (unknown) (no date) (unknown) (unknown) Blood Type B Positive (units unknown) (unknown) (unknown) (no date) (unknown) (unknown) Blood Type (units unknown) (unknown) (unknown) (no date) (unknown) (unknown) Calcium (8.4-10.2) mg/dL (units unknown) (unknown) (unknown) (no date) (unknown) (unknown) Calcium 8.7 (8.4-10.2) mg/dL (units unknown) (unknown) (unknown) (no date) (unknown) (unknown) Carbon Dioxide (22-32) mmol/L (units unknown) (unknown) (unknown) (no date) (unknown) (unknown) Carbon Dioxide 25 (22-32) mmol/L (units unknown) (unknown) (unknown) (no date) (unknown) (unknown) Chief complaint: GI Bleed (units unknown) (unknown) (unknown) (no date) (unknown) (unknown) Chloride (98-107) mmol/L (units unknown) (unknown) (unknown) (no date) (unknown) (unknown) Chloride 107 (98-107) mmol/L (units unknown) (unknown) (unknown) (no date) (unknown) (unknown) Chronic anticoagulation (units unknown) (unknown) (unknown) (no date) (unknown) (unknown) Complete Blood Count AUTO DIFF Stat (units unknown) (unknown) (unknown) (no date) (unknown) (unknown) Complex-Vitamin B12 tablet) (units unknown) (unknown) (unknown) (no date) (unknown) (unknown) Comprehensive Metabolic Panel Stat (units unknown) (unknown) (unknown) (no date) (unknown) (unknown) Course (units unknown) (unknown) (unknown) (no date) (unknown) (unknown) Creatinine (0.66-1.25) mg/dL (units unknown) (unknown) (unknown) (no date) (unknown) (unknown) Creatinine 1.05 (0.66-1.25) mg/dL (units unknown) (unknown) (unknown) (no date) (unknown) (unknown) : 1935 Acct:[id number] (units unknown) (unknown) (unknown) (no date) (unknown) (unknown) Date of Service: 02/18/23 (units unknown) (unknown) (unknown) (no date) (unknown) (unknown) Departure (units unknown) (unknown) (unknown) (no date) (unknown) (unknown) Discharge Plan (units unknown) (unknown) (unknown) (no date) (unknown) (unknown) Discontinued Medications (units unknown) (unknown) (unknown) (no date) (unknown) (unknown) Documented By: PRINCESS (units unknown) (unknown) (unknown) (no date) (unknown) (unknown) ED Orders (units unknown) (unknown) (unknown) (no date) (unknown) (unknown) EKG-12 Lead Stat (units unknown) (unknown) (unknown) (no date) (unknown) (unknown) ER Physician: Natalie Hernandez D.O. (units unknown) (unknown) (unknown) (no date) (unknown) (unknown) Emergency Report (units unknown) (unknown) (unknown) (no date) (unknown) (unknown) Eos # (Auto) (0-450) /uL (units unknown) (unknown) (unknown) (no date) (unknown) (unknown) Eos # (Auto) 100 (0-450) /uL (units unknown) (unknown) (unknown) (no date) (unknown) (unknown) Eos % (Auto) (2-4) % (units unknown) (unknown) (unknown) (no date) (unknown) (unknown) Eos % (Auto) 1.2 L (2-4) % (units unknown) (unknown) (unknown) (no date) (unknown) (unknown) Estimated GFR > 60 (>60) mL/min (units unknown) (unknown) (unknown) (no date) (unknown) (unknown) Estimated GFR (>60) mL/min (units unknown) (unknown) (unknown) (no date) (unknown) (unknown) Exam (units unknown) (unknown) (unknown) (no date) (unknown) (unknown) Family History (units unknown) (unknown) (unknown) (no date) (unknown) (unknown) Father No problems noted. (units unknown) (unknown) (unknown) (no date) (unknown) (unknown) General (units unknown) (unknown) (unknown) (no date) (unknown) (unknown) Globulin (1.7-4.1) g/dL (units unknown) (unknown) (unknown) (no date) (unknown) (unknown) Globulin 3.4 (1.7-4.1) g/dL (units unknown) (unknown) (unknown) (no date) (unknown) (unknown) Glucose (80-110) mg/dL (units unknown) (unknown) (unknown) (no date) (unknown) (unknown) Glucose 136 H (80-110) mg/dL (units unknown) (unknown) (unknown) (no date) (unknown) (unknown) HPI - GI Bleed (units unknown) (unknown) (unknown) (no date) (unknown) (unknown) Hct (41-53) % (units unknown) (unknown) (unknown) (no date) (unknown) (unknown) Hct 35.6 L (41-53) % (units unknown) (unknown) (unknown) (no date) (unknown) (unknown) Hgb (13.5-17.5) g/dL (units unknown) (unknown) (unknown) (no date) (unknown) (unknown) Hgb 11.8 L (13.5-17.5) g/dL (units unknown) (unknown) (unknown) (no date) (unknown) (unknown) History of permanent cardiac pacemaker placement (units unknown) (unknown) (unknown) (no date) (unknown) (unknown) Home Medications (units unknown) (unknown) (unknown) (no date) (unknown) (unknown) INR (0.9-1.3) (units unknown) (unknown) (unknown) (no date) (unknown) (unknown) INR 1.7 H (0.9-1.3) (units unknown) (unknown) (unknown) (no date) (unknown) (unknown) Initial Vital Signs (units unknown) (unknown) (unknown) (no date) (unknown) (unknown) Initial Vital Signs: (units unknown) (unknown) (unknown) (no date) (unknown) (unknown) [address] [address] (units unknown) (unknown) (unknown) (no date) (unknown) (unknown) Lab Data (units unknown) (unknown) (unknown) (no date) (unknown) (unknown) Lab Results (units unknown) (unknown) (unknown) (no date) (unknown) (unknown) Labs: (units unknown) (unknown) (unknown) (no date) (unknown) (unknown) Last Admin: 02/18/23 11:36 Dose: 80 mg (units unknown) (unknown) (unknown) (no date) (unknown) (unknown) Limitations: no limitations (units unknown) (unknown) (unknown) (no date) (unknown) (unknown) [place] 0.01 % Drops (units unknown) (unknown) (unknown) (no date) (unknown) (unknown) Lymph # (Auto) (4470-6155) /uL (units unknown) (unknown) (unknown) (no date) (unknown) (unknown) Lymph # (Auto) 1100 (4924-1786) /uL (units unknown) (unknown) (unknown) (no date) (unknown) (unknown) Lymph % (Auto) (25-40) % (units unknown) (unknown) (unknown) (no date) (unknown) (unknown) Lymph % (Auto) 15.0 L (25-40) % (units unknown) (unknown) (unknown) (no date) (unknown) (unknown) MCH (26-34) PG (units unknown) (unknown) (unknown) (no date) (unknown) (unknown) MCH 31.3 (26-34) PG (units unknown) (unknown) (unknown) (no date) (unknown) (unknown) MCHC (30-36) % (units unknown) (unknown) (unknown) (no date) (unknown) (unknown) MCHC 33.1 (30-36) % (units unknown) (unknown) (unknown) (no date) (unknown) (unknown) MCV (80-100) fL (units unknown) (unknown) (unknown) (no date) (unknown) (unknown) MCV 94.6 (80-100) fL (units unknown) (unknown) (unknown) (no date) (unknown) (unknown) MDM - GI Bleed (units unknown) (unknown) (unknown) (no date) (unknown) (unknown) Medical History (units unknown) (unknown) (unknown) (no date) (unknown) (unknown) Medication Instructions Recorded Confirmed (units unknown) (unknown) (unknown) (no date) (unknown) (unknown) Medication Instructions Recorded (units unknown) (unknown) (unknown) (no date) (unknown) (unknown) Miscellaneous,Doctor , MD [Primary Care Provider] (units unknown) (unknown) (unknown) (no date) (unknown) (unknown) Mode of arrival: EMS (units unknown) (unknown) (unknown) (no date) (unknown) (unknown) [place] # (Auto) (0-900) /uL (units unknown) (unknown) (unknown) (no date) (unknown) (unknown) [place] # (Auto) 600 (0-900) /uL (units unknown) (unknown) (unknown) (no date) (unknown) (unknown) [place] % (Auto) (3-14) % (units unknown) (unknown) (unknown) (no date) (unknown) (unknown) [place] % (Auto) 8.3 (3-14) % (units unknown) (unknown) (unknown) (no date) (unknown) (unknown) Mother Cancer (units unknown) (unknown) (unknown) (no date) (unknown) (unknown) Neut # (Auto) (0783-8424) /uL (units unknown) (unknown) (unknown) (no date) (unknown) (unknown) Neut # (Auto) 5600 (5492-6849) /uL (units unknown) (unknown) (unknown) (no date) (unknown) (unknown) Neut % (Auto) (50-75) % (units unknown) (unknown) (unknown) (no date) (unknown) (unknown) Neut % (Auto) 74.4 (50-75) % (units unknown) (unknown) (unknown) (no date) (unknown) (unknown) No Action (units unknown) (unknown) (unknown) (no date) (unknown) (unknown) No Known Drug Allergies Allergy Verified 02/18/23 10:27 (units unknown) (unknown) (unknown) (no date) (unknown) (unknown) Ondansetron HCl (Ondansetron 4 Mg/2 Ml Inj) 4 mg IV NOW PRN (units unknown) (unknown) (unknown) (no date) (unknown) (unknown) Ordered: (units unknown) (unknown) (unknown) (no date) (unknown) (unknown) Orders (units unknown) (unknown) (unknown) (no date) (unknown) (unknown) Osteoporosis (units unknown) (unknown) (unknown) (no date) (unknown) (unknown) Oxygen Delivery Method Room Air 02/18/23 10:21 (units unknown) (unknown) (unknown) (no date) (unknown) (unknown) Oxygen Delivery Method Room Air (units unknown) (unknown) (unknown) (no date) (unknown) (unknown) Oxygen Delivery Method (units unknown) (unknown) (unknown) (no date) (unknown) (unknown) PRN Reason: Nausea And Vomiting (units unknown) (unknown) (unknown) (no date) (unknown) (unknown) PT (10.1-12.7) SECONDS (units unknown) (unknown) (unknown) (no date) (unknown) (unknown) PT 20.0 H (10.1-12.7) SECONDS (units unknown) (unknown) (unknown) (no date) (unknown) (unknown) PTT Partial Thromboplastin Rodriguez Stat (units unknown) (unknown) (unknown) (no date) (unknown) (unknown) Pantoprazole Sodium (Pantoprazole 40 Mg Vial) 80 mg IV NOW ONE (units unknown) (unknown) (unknown) (no date) (unknown) (unknown) Patient History (units unknown) (unknown) (unknown) (no date) (unknown) (unknown) Patient: Jonny Neely MR#: [id number] (units unknown) (unknown) (unknown) (no date) (unknown) (unknown) Plt Count (150-400) X103/uL (units unknown) (unknown) (unknown) (no date) (unknown) (unknown) Plt Count 183 (150-400) X103/uL (units unknown) (unknown) (unknown) (no date) (unknown) (unknown) Potassium (3.4-5.1) mmol/L (units unknown) (unknown) (unknown) (no date) (unknown) (unknown) Potassium 3.6 (3.4-5.1) mmol/L (units unknown) (unknown) (unknown) (no date) (unknown) (unknown) Prescriptions: (units unknown) (unknown) (unknown) (no date) (unknown) (unknown) Previous Rx's (units unknown) (unknown) (unknown) (no date) (unknown) (unknown) Prothrombin Time INR Stat (units unknown) (unknown) (unknown) (no date) (unknown) (unknown) Pulse Oximetry 97 96 (units unknown) (unknown) (unknown) (no date) (unknown) (unknown) Pulse Oximetry 97 (units unknown) (unknown) (unknown) (no date) (unknown) (unknown) Pulse Oximetry 98 02/18/23 10:21 (units unknown) (unknown) (unknown) (no date) (unknown) (unknown) Pulse Oximetry 98 97 (units unknown) (unknown) (unknown) (no date) (unknown) (unknown) Pulse Oximetry 98 98 (units unknown) (unknown) (unknown) (no date) (unknown) (unknown) Pulse Oximetry 99 98 (units unknown) (unknown) (unknown) (no date) (unknown) (unknown) Pulse Oximetry 99 (units unknown) (unknown) (unknown) (no date) (unknown) (unknown) Pulse Rate 101 H 81 (units unknown) (unknown) (unknown) (no date) (unknown) (unknown) Pulse Rate 75 (units unknown) (unknown) (unknown) (no date) (unknown) (unknown) Pulse Rate 77 (units unknown) (unknown) (unknown) (no date) (unknown) (unknown) Pulse Rate 78 74 (units unknown) (unknown) (unknown) (no date) (unknown) (unknown) Pulse Rate 80 76 (units unknown) (unknown) (unknown) (no date) (unknown) (unknown) Pulse Rate 81 02/18/23 10:21 (units unknown) (unknown) (unknown) (no date) (unknown) (unknown) Pulse Rate 81 98 H (units unknown) (unknown) (unknown) (no date) (unknown) (unknown) RBC (4.5-5.9) X106/uL (units unknown) (unknown) (unknown) (no date) (unknown) (unknown) RBC 3.76 L (4.5-5.9) X106/uL (units unknown) (unknown) (unknown) (no date) (unknown) (unknown) RDW (11.6-14.8) % (units unknown) (unknown) (unknown) (no date) (unknown) (unknown) RDW 16.6 H (11.6-14.8) % (units unknown) (unknown) (unknown) (no date) (unknown) (unknown) ROS Unobtainable: All systems reviewed + are unremarkable except as noted in HPI (units unknown) (unknown) (unknown) (no date) (unknown) (unknown) Referrals: (units unknown) (unknown) (unknown) (no date) (unknown) (unknown) Related Data (units unknown) (unknown) (unknown) (no date) (unknown) (unknown) Respiratory Rate 12 15 (units unknown) (unknown) (unknown) (no date) (unknown) (unknown) Respiratory Rate 13 (units unknown) (unknown) (unknown) (no date) (unknown) (unknown) Respiratory Rate 15 (units unknown) (unknown) (unknown) (no date) (unknown) (unknown) Respiratory Rate 16 02/18/23 10:21 (units unknown) (unknown) (unknown) (no date) (unknown) (unknown) Respiratory Rate 16 15 (units unknown) (unknown) (unknown) (no date) (unknown) (unknown) Respiratory Rate 18 13 (units unknown) (unknown) (unknown) (no date) (unknown) (unknown) Respiratory Rate 21 14 (units unknown) (unknown) (unknown) (no date) (unknown) (unknown) Review of Systems (units unknown) (unknown) (unknown) (no date) (unknown) (unknown) Rx Instructions: (units unknown) (unknown) (unknown) (no date) (unknown) (unknown) Signed By: (units unknown) (unknown) (unknown) (no date) (unknown) (unknown) Smoking Status: Never smoker (units unknown) (unknown) (unknown) (no date) (unknown) (unknown) Social History (units unknown) (unknown) (unknown) (no date) (unknown) (unknown) Sodium (137-145) mmol/L (units unknown) (unknown) (unknown) (no date) (unknown) (unknown) Sodium 139 (137-145) mmol/L (units unknown) (unknown) (unknown) (no date) (unknown) (unknown) Source: patient and EMS (units unknown) (unknown) (unknown) (no date) (unknown) (unknown) Stated complaint: Possible GI bleed (units unknown) (unknown) (unknown) (no date) (unknown) (unknown) Stop: 02/18/23 10:19 (units unknown) (unknown) (unknown) (no date) (unknown) (unknown) Substance Use Type: does not use (units unknown) (unknown) (unknown) (no date) (unknown) (unknown) Surgical History (units unknown) (unknown) (unknown) (no date) (unknown) (unknown) Temperature 98.7 F 02/18/23 10:21 (units unknown) (unknown) (unknown) (no date) (unknown) (unknown) Temperature 98.7 F (units unknown) (unknown) (unknown) (no date) (unknown) (unknown) Temperature (units unknown) (unknown) (unknown) (no date) (unknown) (unknown) Time Seen by Provider: 02/18/23 12:57 (units unknown) (unknown) (unknown) (no date) (unknown) (unknown) Total Bilirubin (0.2-1.3) mg/dL (units unknown) (unknown) (unknown) (no date) (unknown) (unknown) Total Bilirubin 0.6 (0.2-1.3) mg/dL (units unknown) (unknown) (unknown) (no date) (unknown) (unknown) Total Protein (6.3-8.2) g/dL (units unknown) (unknown) (unknown) (no date) (unknown) (unknown) Total Protein 6.8 (6.3-8.2) g/dL (units unknown) (unknown) (unknown) (no date) (unknown) (unknown) Type and Screen Stat (units unknown) (unknown) (unknown) (no date) (unknown) (unknown) Vital Signs - 8 hr (units unknown) (unknown) (unknown) (no date) (unknown) (unknown) Vital Signs (units unknown) (unknown) (unknown) (no date) (unknown) (unknown) Vital signs: (units unknown) (unknown) (unknown) (no date) (unknown) (unknown) WBC (4.5-11.0) X103/uL (units unknown) (unknown) (unknown) (no date) (unknown) (unknown) WBC 7.6 (4.5-11.0) X103/uL (units unknown) (unknown) (unknown) (no date) (unknown) (unknown) Xarelto 20 mg Tablet (units unknown) (unknown) (unknown) (no date) (unknown) (unknown) [Embedded Image Not Available] (units unknown) (unknown) (unknown) (no date) (unknown) (unknown) alcohol intake frequency: 0-2 drinks per day (units unknown) (unknown) (unknown) (no date) (unknown) (unknown) alcohol intake: current (units unknown) (unknown) (unknown) (no date) (unknown) (unknown) and below (units unknown) (unknown) (unknown) (no date) (unknown) (unknown) bimatoprost 0.01 % eye drops 1 drp ophthalmic (eye) DAILY 10/24/22 10/24/22 (units unknown) (unknown) (unknown) (no date) (unknown) (unknown) bupropion HCl 150 mg Tablet Sustained-Release 12 Hr (units unknown) (unknown) (unknown) (no date) (unknown) (unknown) bupropion HCl 150 mg tablet,12 hr 150 mg PO BID 10/24/22 10/24/22 (units unknown) (unknown) (unknown) (no date) (unknown) (unknown) capsule,extended release 24 hr (units unknown) (unknown) (unknown) (no date) (unknown) (unknown) diltiazem HCl 240 mg 240 mg PO DAILY 10/24/22 10/24/22 (units unknown) (unknown) (unknown) (no date) (unknown) (unknown) diltiazem HCl 240 mg Capsule,Extended Release 24hr (units unknown) (unknown) (unknown) (no date) (unknown) (unknown) dorzolamide 22.3 mg-timolol 6.8 1 drp ophthalmic (eye) DAILY 10/24/22 10/24/22 (units unknown) (unknown) (unknown) (no date) (unknown) (unknown) dorzolamide-timolol 22.3-6.8 mg/mL Drops (units unknown) (unknown) (unknown) (no date) (unknown) (unknown) ea (units unknown) (unknown) (unknown) (no date) (unknown) (unknown) finasteride 5 mg Tablet (units unknown) (unknown) (unknown) (no date) (unknown) (unknown) finasteride 5 mg tablet 5 mg PO DAILY 10/24/22 10/24/22 (units unknown) (unknown) (unknown) (no date) (unknown) (unknown) gabapentin 400 mg capsule 400 mg PO TID #30 caps 12/04/22 (units unknown) (unknown) (unknown) (no date) (unknown) (unknown) gabapentin 400 mg capsule (units unknown) (unknown) (unknown) (no date) (unknown) (unknown) household members: none and other (units unknown) (unknown) (unknown) (no date) (unknown) (unknown) leave on most painful area for up to 12 hrs (units unknown) (unknown) (unknown) (no date) (unknown) (unknown) lidocaine 5 % adhesive patch,medicated (units unknown) (unknown) (unknown) (no date) (unknown) (unknown) lidocaine 5 % topical patch 1 patch topical DAILY PRN pain #30 12/04/22 (units unknown) (unknown) (unknown) (no date) (unknown) (unknown) mg/mL eye drops (units unknown) (unknown) (unknown) (no date) (unknown) (unknown) must administer with evening meal (units unknown) (unknown) (unknown) (no date) (unknown) (unknown) omeprazole 20 mg Capsule,Delayed Release(Dr/Ec) (units unknown) (unknown) (unknown) (no date) (unknown) (unknown) omeprazole 20 mg capsule,delayed 20 mg PO DAILY 10/24/22 10/24/22 (units unknown) (unknown) (unknown) (no date) (unknown) (unknown) release (units unknown) (unknown) (unknown) (no date) (unknown) (unknown) right eye (units unknown) (unknown) (unknown) (no date) (unknown) (unknown) rivaroxaban 20 mg tablet (Xarelto) 20 mg PO QPM 10/24/22 10/24/22 (units unknown) (unknown) (unknown) (no date) (unknown) (unknown) sustained-release (units unknown) (unknown) (unknown) (no date) (unknown) (unknown) tamsulosin 0.4 mg Capsule (units unknown) (unknown) (unknown) (no date) (unknown) (unknown) tamsulosin 0.4 mg capsule 0.4 mg PO BEDTIME 10/24/22 10/24/22 (units unknown) (unknown) (unknown) (no date) (unknown) (unknown) topical ointment (units unknown) (unknown) (unknown) (no date) (unknown) (unknown) tramadol 50 mg tablet 50 mg PO Q8H PRN pain #10 tabs 12/04/22 (units unknown) (unknown) (unknown) (no date) (unknown) (unknown) tramadol 50 mg tablet 50 mg PO Q8H PRN pain #10 tabs 12/25/22 (units unknown) (unknown) (unknown) (no date) (unknown) (unknown) tramadol 50 mg tablet (units unknown) (unknown) (unknown) (no date) (unknown) (unknown) triamcinolone acetonide 0.1 % 1 applic topical DAILY PRN Dry Skin 10/24/22 (units unknown) (unknown) (unknown) (no date) (unknown) (unknown) triamcinolone acetonide 0.1 % Ointment (units unknown) (unknown) (unknown) (no date) (unknown) (unknown) vitamin B complex (B 1 tab PO DAILY 10/24/22 10/24/22 (units unknown) (unknown) (unknown) (no date) (unknown) (unknown) vitamin B complex [B Complex-Vitamin B12] Tablet (units unknown) (unknown) Result panel 121 (unknown) (no date) (unknown) (unknown) (no value) (units unknown) (unknown) (unknown) (no date) (unknown) (unknown) ([place]umigan) (units unknown) (unknown) (unknown) (no date) (unknown) (unknown) 0.4 mg PO BEDTIME (units unknown) (unknown) (unknown) (no date) (unknown) (unknown) 10/24/22 (units unknown) (unknown) (unknown) (no date) (unknown) (unknown) [id number] (units unknown) (unknown) (unknown) (no date) (unknown) (unknown) 02/18/23 02/18/23 02/18/23 Range/Units (units unknown) (unknown) (unknown) (no date) (unknown) (unknown) 02/18/23 10:16 (units unknown) (unknown) (unknown) (no date) (unknown) (unknown) 02/18/23 10:28 (units unknown) (unknown) (unknown) (no date) (unknown) (unknown) 02/18/23 10:30 (units unknown) (unknown) (unknown) (no date) (unknown) (unknown) 02/18/23 13:36 (units unknown) (unknown) (unknown) (no date) (unknown) (unknown) 02/18/23 Range/Units (units unknown) (unknown) (unknown) (no date) (unknown) (unknown) 02/18/23 (units unknown) (unknown) (unknown) (no date) (unknown) (unknown) 1 applic TOPICAL DAILY PRN (Reason: Dry Skin) (units unknown) (unknown) (unknown) (no date) (unknown) (unknown) 1 drp OPHTHALMIC (EYE) DAILY (units unknown) (unknown) (unknown) (no date) (unknown) (unknown) 1 patch topical DAILY PRN (Reason: pain) Qty: 30 0RF (units unknown) (unknown) (unknown) (no date) (unknown) (unknown) 1 tab PO DAILY (units unknown) (unknown) (unknown) (no date) (unknown) (unknown) 10:16 10:16 10:16 (units unknown) (unknown) (unknown) (no date) (unknown) (unknown) 10:21 02/18/23 (units unknown) (unknown) (unknown) (no date) (unknown) (unknown) 10:22 02/18/23 (units unknown) (unknown) (unknown) (no date) (unknown) (unknown) 10:28 (units unknown) (unknown) (unknown) (no date) (unknown) (unknown) 10:30 02/18/23 (units unknown) (unknown) (unknown) (no date) (unknown) (unknown) 10:30 (units unknown) (unknown) (unknown) (no date) (unknown) (unknown) 10:45 02/18/23 (units unknown) (unknown) (unknown) (no date) (unknown) (unknown) 10:45 (units unknown) (unknown) (unknown) (no date) (unknown) (unknown) 11:00 02/18/23 (units unknown) (unknown) (unknown) (no date) (unknown) (unknown) 11:15 02/18/23 (units unknown) (unknown) (unknown) (no date) (unknown) (unknown) 11:15 (units unknown) (unknown) (unknown) (no date) (unknown) (unknown) 11:30 02/18/23 (units unknown) (unknown) (unknown) (no date) (unknown) (unknown) 11:30 (units unknown) (unknown) (unknown) (no date) (unknown) (unknown) 11:45 02/18/23 (units unknown) (unknown) (unknown) (no date) (unknown) (unknown) 12:00 02/18/23 (units unknown) (unknown) (unknown) (no date) (unknown) (unknown) 12:00 (units unknown) (unknown) (unknown) (no date) (unknown) (unknown) 12:15 02/18/23 (units unknown) (unknown) (unknown) (no date) (unknown) (unknown) 12:15 (units unknown) (unknown) (unknown) (no date) (unknown) (unknown) 150 mg PO BID (units unknown) (unknown) (unknown) (no date) (unknown) (unknown) 20 mg PO DAILY (units unknown) (unknown) (unknown) (no date) (unknown) (unknown) 20 mg PO QPM (units unknown) (unknown) (unknown) (no date) (unknown) (unknown) 240 mg PO DAILY (units unknown) (unknown) (unknown) (no date) (unknown) (unknown) 400 mg PO TID Qty: 30 0RF (units unknown) (unknown) (unknown) (no date) (unknown) (unknown) 5 mg PO DAILY (units unknown) (unknown) (unknown) (no date) (unknown) (unknown) 50 mg PO Q8H PRN (Reason: pain) Qty: 10 0RF (units unknown) (unknown) (unknown) (no date) (unknown) (unknown) 87-year-old male with history of atrial fibrillation on Xarelto and diltiazem, (units unknown) (unknown) (unknown) (no date) (unknown) (unknown) ABDOMEN: Soft, nontender. Normoactive bowel sounds all 4 quadrants. No (units unknown) (unknown) (unknown) (no date) (unknown) (unknown) ALT (<50) IU/L (units unknown) (unknown) (unknown) (no date) (unknown) (unknown) ALT 28 (<50) IU/L (units unknown) (unknown) (unknown) (no date) (unknown) (unknown) APTT (26-36) SECONDS (units unknown) (unknown) (unknown) (no date) (unknown) (unknown) APTT 37 H (26-36) SECONDS (units unknown) (unknown) (unknown) (no date) (unknown) (unknown) AST (17-59) IU/L (units unknown) (unknown) (unknown) (no date) (unknown) (unknown) AST 30 (17-59) IU/L (units unknown) (unknown) (unknown) (no date) (unknown) (unknown) Age/Sex: 87 / M (units unknown) (unknown) (unknown) (no date) (unknown) (unknown) Albumin (3.5-5.0) g/dL (units unknown) (unknown) (unknown) (no date) (unknown) (unknown) Albumin 3.4 L (3.5-5.0) g/dL (units unknown) (unknown) (unknown) (no date) (unknown) (unknown) Albumin/Globulin Ratio (1.0-2.8) (units unknown) (unknown) (unknown) (no date) (unknown) (unknown) Albumin/Globulin Ratio 1.0 (1.0-2.8) (units unknown) (unknown) (unknown) (no date) (unknown) (unknown) Alkaline Phosphatase (38-126) U/L (units unknown) (unknown) (unknown) (no date) (unknown) (unknown) Alkaline Phosphatase 87 (38-126) U/L (units unknown) (unknown) (unknown) (no date) (unknown) (unknown) Allergies (units unknown) (unknown) (unknown) (no date) (unknown) (unknown) Allergy/AdvReac Type Severity Reaction Status Date / Time (units unknown) (unknown) (unknown) (no date) (unknown) (unknown) Antibody Screen Negative (units unknown) (unknown) (unknown) (no date) (unknown) (unknown) Antibody Screen (units unknown) (unknown) (unknown) (no date) (unknown) (unknown) Atrial flutter with variable AV block, occasionally ventricular paced rhythms. (units unknown) (unknown) (unknown) (no date) (unknown) (unknown) Attestation: I personally reviewed and interpreted this ECG as follows: (units unknown) (unknown) (unknown) (no date) (unknown) (unknown) BPH (benign prostatic hyperplasia) (units unknown) (unknown) (unknown) (no date) (unknown) (unknown) BUN (9-20) mg/dL (units unknown) (unknown) (unknown) (no date) (unknown) (unknown) BUN 15 (9-20) mg/dL (units unknown) (unknown) (unknown) (no date) (unknown) (unknown) BUN/Creatinine Ratio (6-22) (units unknown) (unknown) (unknown) (no date) (unknown) (unknown) BUN/Creatinine Ratio 14.3 (6-22) (units unknown) (unknown) (unknown) (no date) (unknown) (unknown) Baso # (Auto) (0-100) /uL (units unknown) (unknown) (unknown) (no date) (unknown) (unknown) Baso # (Auto) 100 (0-100) /uL (units unknown) (unknown) (unknown) (no date) (unknown) (unknown) Baso % (Auto) (0-2) % (units unknown) (unknown) (unknown) (no date) (unknown) (unknown) Baso % (Auto) 1.1 (0-2) % (units unknown) (unknown) (unknown) (no date) (unknown) (unknown) Blood Pressure 100/66 94/59 L (units unknown) (unknown) (unknown) (no date) (unknown) (unknown) Blood Pressure 87/56 L 92/55 L (units unknown) (unknown) (unknown) (no date) (unknown) (unknown) Blood Pressure 91/53 L (units unknown) (unknown) (unknown) (no date) (unknown) (unknown) Blood Pressure 93/60 02/18/23 10:21 (units unknown) (unknown) (unknown) (no date) (unknown) (unknown) Blood Pressure 93/60 88/65 L (units unknown) (unknown) (unknown) (no date) (unknown) (unknown) Blood Pressure 94/56 L (units unknown) (unknown) (unknown) (no date) (unknown) (unknown) Blood Pressure 98/57 L (units unknown) (unknown) (unknown) (no date) (unknown) (unknown) Blood Type B Positive (units unknown) (unknown) (unknown) (no date) (unknown) (unknown) Blood Type (units unknown) (unknown) (unknown) (no date) (unknown) (unknown) CARDIOVASCULAR: Irregularly irregular rate and rhythm without murmurs, rubs or (units unknown) (unknown) (unknown) (no date) (unknown) (unknown) CT abdomen pelvis w con Stat (units unknown) (unknown) (unknown) (no date) (unknown) (unknown) Calcium (8.4-10.2) mg/dL (units unknown) (unknown) (unknown) (no date) (unknown) (unknown) Calcium 8.7 (8.4-10.2) mg/dL (units unknown) (unknown) (unknown) (no date) (unknown) (unknown) Carbon Dioxide (22-32) mmol/L (units unknown) (unknown) (unknown) (no date) (unknown) (unknown) Carbon Dioxide 25 (22-32) mmol/L (units unknown) (unknown) (unknown) (no date) (unknown) (unknown) Chief complaint: GI Bleed (units unknown) (unknown) (unknown) (no date) (unknown) (unknown) Chloride (98-107) mmol/L (units unknown) (unknown) (unknown) (no date) (unknown) (unknown) Chloride 107 (98-107) mmol/L (units unknown) (unknown) (unknown) (no date) (unknown) (unknown) Chronic anticoagulation (units unknown) (unknown) (unknown) (no date) (unknown) (unknown) Clinical Impression: (units unknown) (unknown) (unknown) (no date) (unknown) (unknown) Complete Blood Count AUTO DIFF Stat (units unknown) (unknown) (unknown) (no date) (unknown) (unknown) Complex-Vitamin B12 tablet) (units unknown) (unknown) (unknown) (no date) (unknown) (unknown) Comprehensive Metabolic Panel Stat (units unknown) (unknown) (unknown) (no date) (unknown) (unknown) Course (units unknown) (unknown) (unknown) (no date) (unknown) (unknown) Creatinine (0.66-1.25) mg/dL (units unknown) (unknown) (unknown) (no date) (unknown) (unknown) Creatinine 1.05 (0.66-1.25) mg/dL (units unknown) (unknown) (unknown) (no date) (unknown) (unknown) : 1935 Acct:[id number] (units unknown) (unknown) (unknown) (no date) (unknown) (unknown) Date of Service: 02/18/23 (units unknown) (unknown) (unknown) (no date) (unknown) (unknown) Departure (units unknown) (unknown) (unknown) (no date) (unknown) (unknown) Discharge Plan (units unknown) (unknown) (unknown) (no date) (unknown) (unknown) Discontinued Medications (units unknown) (unknown) (unknown) (no date) (unknown) (unknown) Documented By: [facility] (units unknown) (unknown) (unknown) (no date) (unknown) (unknown) Dr. Santana, hospitalist (units unknown) (unknown) (unknown) (no date) (unknown) (unknown) ECG Data (units unknown) (unknown) (unknown) (no date) (unknown) (unknown) ED Orders (units unknown) (unknown) (unknown) (no date) (unknown) (unknown) EKG-12 Lead Stat (units unknown) (unknown) (unknown) (no date) (unknown) (unknown) ER Physician: Natalie Hernandez D.O. (units unknown) (unknown) (unknown) (no date) (unknown) (unknown) EXTREMITIES: Normal range of motion, no clubbing or edema. Neurovascularly (units unknown) (unknown) (unknown) (no date) (unknown) (unknown) Emergency Report (units unknown) (unknown) (unknown) (no date) (unknown) (unknown) Eos # (Auto) (0-450) /uL (units unknown) (unknown) (unknown) (no date) (unknown) (unknown) Eos # (Auto) 100 (0-450) /uL (units unknown) (unknown) (unknown) (no date) (unknown) (unknown) Eos % (Auto) (2-4) % (units unknown) (unknown) (unknown) (no date) (unknown) (unknown) Eos % (Auto) 1.2 L (2-4) % (units unknown) (unknown) (unknown) (no date) (unknown) (unknown) Estimated GFR > 60 (>60) mL/min (units unknown) (unknown) (unknown) (no date) (unknown) (unknown) Estimated GFR (>60) mL/min (units unknown) (unknown) (unknown) (no date) (unknown) (unknown) Exam Narrative: (units unknown) (unknown) (unknown) (no date) (unknown) (unknown) Exam (units unknown) (unknown) (unknown) (no date) (unknown) (unknown) Family History (units unknown) (unknown) (unknown) (no date) (unknown) (unknown) Father No problems noted. (units unknown) (unknown) (unknown) (no date) (unknown) (unknown) GENERAL: Alert and oriented x three, mild distress. (units unknown) (unknown) (unknown) (no date) (unknown) (unknown) GI bleed (units unknown) (unknown) (unknown) (no date) (unknown) (unknown) : No CVA tenderness (units unknown) (unknown) (unknown) (no date) (unknown) (unknown) General (units unknown) (unknown) (unknown) (no date) (unknown) (unknown) Globulin (1.7-4.1) g/dL (units unknown) (unknown) (unknown) (no date) (unknown) (unknown) Globulin 3.4 (1.7-4.1) g/dL (units unknown) (unknown) (unknown) (no date) (unknown) (unknown) Glucose (80-110) mg/dL (units unknown) (unknown) (unknown) (no date) (unknown) (unknown) Glucose 136 H (80-110) mg/dL (units unknown) (unknown) (unknown) (no date) (unknown) (unknown) HEENT: Head normocephalic, atraumatic, EOMI, pale conjunctiva. Pupils reactive, (units unknown) (unknown) (unknown) (no date) (unknown) (unknown) HPI - GI Bleed (units unknown) (unknown) (unknown) (no date) (unknown) (unknown) HPI Narrative: (units unknown) (unknown) (unknown) (no date) (unknown) (unknown) Hct (41-53) % (units unknown) (unknown) (unknown) (no date) (unknown) (unknown) Hct 35.6 L (41-53) % (units unknown) (unknown) (unknown) (no date) (unknown) (unknown) He has been using a walker and wheelchair intermittently and his son was picking (units unknown) (unknown) (unknown) (no date) (unknown) (unknown) Hemoglobin is 11.8 he was 13.6 on October 25, 2022 normal platelets today normal (units unknown) (unknown) (unknown) (no date) (unknown) (unknown) Hgb (13.5-17.5) g/dL (units unknown) (unknown) (unknown) (no date) (unknown) (unknown) Hgb 11.8 L (13.5-17.5) g/dL (units unknown) (unknown) (unknown) (no date) (unknown) (unknown) History of Present Illness (units unknown) (unknown) (unknown) (no date) (unknown) (unknown) History of permanent cardiac pacemaker placement (units unknown) (unknown) (unknown) (no date) (unknown) (unknown) Home Medications (units unknown) (unknown) (unknown) (no date) (unknown) (unknown) INR (0.9-1.3) (units unknown) (unknown) (unknown) (no date) (unknown) (unknown) INR 1.7 H (0.9-1.3) (units unknown) (unknown) (unknown) (no date) (unknown) (unknown) Initial Vital Signs (units unknown) (unknown) (unknown) (no date) (unknown) (unknown) Initial Vital Signs: (units unknown) (unknown) (unknown) (no date) (unknown) (unknown) Interpretation: (units unknown) (unknown) (unknown) (no date) (unknown) (unknown) [address] [address] (units unknown) (unknown) (unknown) (no date) (unknown) (unknown) Lab Data (units unknown) (unknown) (unknown) (no date) (unknown) (unknown) Lab Results (units unknown) (unknown) (unknown) (no date) (unknown) (unknown) Labs: (units unknown) (unknown) (unknown) (no date) (unknown) (unknown) Last Admin: 02/18/23 11:36 Dose: 80 mg (units unknown) (unknown) (unknown) (no date) (unknown) (unknown) Limitations: no limitations (units unknown) (unknown) (unknown) (no date) (unknown) (unknown) [place]igan 0.01 % Drops (units unknown) (unknown) (unknown) (no date) (unknown) (unknown) Lymph # (Auto) (1946-2206) /uL (units unknown) (unknown) (unknown) (no date) (unknown) (unknown) Lymph # (Auto) 1100 (0579-4495) /uL (units unknown) (unknown) (unknown) (no date) (unknown) (unknown) Lymph % (Auto) (25-40) % (units unknown) (unknown) (unknown) (no date) (unknown) (unknown) Lymph % (Auto) 15.0 L (25-40) % (units unknown) (unknown) (unknown) (no date) (unknown) (unknown) MCH (26-34) PG (units unknown) (unknown) (unknown) (no date) (unknown) (unknown) MCH 31.3 (26-34) PG (units unknown) (unknown) (unknown) (no date) (unknown) (unknown) MCHC (30-36) % (units unknown) (unknown) (unknown) (no date) (unknown) (unknown) MCHC 33.1 (30-36) % (units unknown) (unknown) (unknown) (no date) (unknown) (unknown) MCV (80-100) fL (units unknown) (unknown) (unknown) (no date) (unknown) (unknown) MCV 94.6 (80-100) fL (units unknown) (unknown) (unknown) (no date) (unknown) (unknown) MDM - GI Bleed (units unknown) (unknown) (unknown) (no date) (unknown) (unknown) MDM Narrative (units unknown) (unknown) (unknown) (no date) (unknown) (unknown) Medical History (units unknown) (unknown) (unknown) (no date) (unknown) (unknown) Medical decision making narrative: (units unknown) (unknown) (unknown) (no date) (unknown) (unknown) Medication Instructions Recorded Confirmed (units unknown) (unknown) (unknown) (no date) (unknown) (unknown) Medication Instructions Recorded (units unknown) (unknown) (unknown) (no date) (unknown) (unknown) Miscellaneous,Doctor , MD [Primary Care Provider] (units unknown) (unknown) (unknown) (no date) (unknown) (unknown) Mode of arrival: EMS (units unknown) (unknown) (unknown) (no date) (unknown) (unknown) [place] # (Auto) (0-900) /uL (units unknown) (unknown) (unknown) (no date) (unknown) (unknown) [place] # (Auto) 600 (0-900) /uL (units unknown) (unknown) (unknown) (no date) (unknown) (unknown) [place] % (Auto) (3-14) % (units unknown) (unknown) (unknown) (no date) (unknown) (unknown) [place] % (Auto) 8.3 (3-14) % (units unknown) (unknown) (unknown) (no date) (unknown) (unknown) Mother Cancer (units unknown) (unknown) (unknown) (no date) (unknown) (unknown) NECK: Supple, full range of motion (units unknown) (unknown) (unknown) (no date) (unknown) (unknown) NEUROLOGICAL: Cranial nerves II through XII grossly intact. Moving all (units unknown) (unknown) (unknown) (no date) (unknown) (unknown) Narrative (units unknown) (unknown) (unknown) (no date) (unknown) (unknown) Neut # (Auto) (1272-6831) /uL (units unknown) (unknown) (unknown) (no date) (unknown) (unknown) Neut # (Auto) 5600 (8341-0347) /uL (units unknown) (unknown) (unknown) (no date) (unknown) (unknown) Neut % (Auto) (50-75) % (units unknown) (unknown) (unknown) (no date) (unknown) (unknown) Neut % (Auto) 74.4 (50-75) % (units unknown) (unknown) (unknown) (no date) (unknown) (unknown) No Action (units unknown) (unknown) (unknown) (no date) (unknown) (unknown) No Known Drug Allergies Allergy Verified 02/18/23 10:27 (units unknown) (unknown) (unknown) (no date) (unknown) (unknown) Ondansetron HCl (Ondansetron 4 Mg/2 Ml Inj) 4 mg IV NOW PRN (units unknown) (unknown) (unknown) (no date) (unknown) (unknown) Ordered: (units unknown) (unknown) (unknown) (no date) (unknown) (unknown) Orders (units unknown) (unknown) (unknown) (no date) (unknown) (unknown) Osteoporosis (units unknown) (unknown) (unknown) (no date) (unknown) (unknown) Oxygen Delivery Method Room Air 02/18/23 10:21 (units unknown) (unknown) (unknown) (no date) (unknown) (unknown) Oxygen Delivery Method Room Air (units unknown) (unknown) (unknown) (no date) (unknown) (unknown) Oxygen Delivery Method (units unknown) (unknown) (unknown) (no date) (unknown) (unknown) PRN Reason: Nausea And Vomiting (units unknown) (unknown) (unknown) (no date) (unknown) (unknown) PT (10.1-12.7) SECONDS (units unknown) (unknown) (unknown) (no date) (unknown) (unknown) PT 20.0 H (10.1-12.7) SECONDS (units unknown) (unknown) (unknown) (no date) (unknown) (unknown) PTT Partial Thromboplastin Rodriguez Stat (units unknown) (unknown) (unknown) (no date) (unknown) (unknown) Pantoprazole Sodium (Pantoprazole 40 Mg Vial) 80 mg IV NOW ONE (units unknown) (unknown) (unknown) (no date) (unknown) (unknown) Patient History (units unknown) (unknown) (unknown) (no date) (unknown) (unknown) Patient is open to blood transfusion. (units unknown) (unknown) (unknown) (no date) (unknown) (unknown) Patient: Jonny Neely MR#: [id number] (units unknown) (unknown) (unknown) (no date) (unknown) (unknown) Plt Count (150-400) X103/uL (units unknown) (unknown) (unknown) (no date) (unknown) (unknown) Plt Count 183 (150-400) X103/uL (units unknown) (unknown) (unknown) (no date) (unknown) (unknown) Potassium (3.4-5.1) mmol/L (units unknown) (unknown) (unknown) (no date) (unknown) (unknown) Potassium 3.6 (3.4-5.1) mmol/L (units unknown) (unknown) (unknown) (no date) (unknown) (unknown) Prescriptions: (units unknown) (unknown) (unknown) (no date) (unknown) (unknown) Previous Rx's (units unknown) (unknown) (unknown) (no date) (unknown) (unknown) Prothrombin Time INR Stat (units unknown) (unknown) (unknown) (no date) (unknown) (unknown) Pulse Oximetry 97 96 (units unknown) (unknown) (unknown) (no date) (unknown) (unknown) Pulse Oximetry 97 (units unknown) (unknown) (unknown) (no date) (unknown) (unknown) Pulse Oximetry 98 02/18/23 10:21 (units unknown) (unknown) (unknown) (no date) (unknown) (unknown) Pulse Oximetry 98 97 (units unknown) (unknown) (unknown) (no date) (unknown) (unknown) Pulse Oximetry 98 98 (units unknown) (unknown) (unknown) (no date) (unknown) (unknown) Pulse Oximetry 99 98 (units unknown) (unknown) (unknown) (no date) (unknown) (unknown) Pulse Oximetry 99 (units unknown) (unknown) (unknown) (no date) (unknown) (unknown) Pulse Rate 101 H 81 (units unknown) (unknown) (unknown) (no date) (unknown) (unknown) Pulse Rate 75 (units unknown) (unknown) (unknown) (no date) (unknown) (unknown) Pulse Rate 77 (units unknown) (unknown) (unknown) (no date) (unknown) (unknown) Pulse Rate 78 74 (units unknown) (unknown) (unknown) (no date) (unknown) (unknown) Pulse Rate 80 76 (units unknown) (unknown) (unknown) (no date) (unknown) (unknown) Pulse Rate 81 02/18/23 10:21 (units unknown) (unknown) (unknown) (no date) (unknown) (unknown) Pulse Rate 81 98 H (units unknown) (unknown) (unknown) (no date) (unknown) (unknown) RBC (4.5-5.9) X106/uL (units unknown) (unknown) (unknown) (no date) (unknown) (unknown) RBC 3.76 L (4.5-5.9) X106/uL (units unknown) (unknown) (unknown) (no date) (unknown) (unknown) RDW (11.6-14.8) % (units unknown) (unknown) (unknown) (no date) (unknown) (unknown) RDW 16.6 H (11.6-14.8) % (units unknown) (unknown) (unknown) (no date) (unknown) (unknown) RESPIRATORY: Breath sounds equal bilaterally, no wheezes rales or rhonchi. No (units unknown) (unknown) (unknown) (no date) (unknown) (unknown) ROS Unobtainable: All systems reviewed + are unremarkable except as noted in HPI (units unknown) (unknown) (unknown) (no date) (unknown) (unknown) Referrals: (units unknown) (unknown) (unknown) (no date) (unknown) (unknown) Related Data (units unknown) (unknown) (unknown) (no date) (unknown) (unknown) Respiratory Rate 12 15 (units unknown) (unknown) (unknown) (no date) (unknown) (unknown) Respiratory Rate 13 (units unknown) (unknown) (unknown) (no date) (unknown) (unknown) Respiratory Rate 15 (units unknown) (unknown) (unknown) (no date) (unknown) (unknown) Respiratory Rate 16 02/18/23 10:21 (units unknown) (unknown) (unknown) (no date) (unknown) (unknown) Respiratory Rate 16 15 (units unknown) (unknown) (unknown) (no date) (unknown) (unknown) Respiratory Rate 18 13 (units unknown) (unknown) (unknown) (no date) (unknown) (unknown) Respiratory Rate 21 14 (units unknown) (unknown) (unknown) (no date) (unknown) (unknown) Review of Systems (units unknown) (unknown) (unknown) (no date) (unknown) (unknown) Right bundle. Rate of 83 QRS of 124 QTC of 434. Patient has prior EKG is not (units unknown) (unknown) (unknown) (no date) (unknown) (unknown) Rx Instructions: (units unknown) (unknown) (unknown) (no date) (unknown) (unknown) SKIN: Warm, dry, no petechiae, no rashes or lesions. (units unknown) (unknown) (unknown) (no date) (unknown) (unknown) Signed By: (units unknown) (unknown) (unknown) (no date) (unknown) (unknown) Smoking Status: Never smoker (units unknown) (unknown) (unknown) (no date) (unknown) (unknown) Social History (units unknown) (unknown) (unknown) (no date) (unknown) (unknown) Sodium (137-145) mmol/L (units unknown) (unknown) (unknown) (no date) (unknown) (unknown) Sodium 139 (137-145) mmol/L (units unknown) (unknown) (unknown) (no date) (unknown) (unknown) Sodium Chloride (Normal Saline 0.9%) 1,000 mls @ 150 mls/hr IV CONT KEON (units unknown) (unknown) (unknown) (no date) (unknown) (unknown) Source: patient and EMS (units unknown) (unknown) (unknown) (no date) (unknown) (unknown) Stated complaint: Possible GI bleed (units unknown) (unknown) (unknown) (no date) (unknown) (unknown) Stop: 02/18/23 10:19 (units unknown) (unknown) (unknown) (no date) (unknown) (unknown) Substance Use Type: does not use (units unknown) (unknown) (unknown) (no date) (unknown) (unknown) Surgical History (units unknown) (unknown) (unknown) (no date) (unknown) (unknown) Temperature 98.7 F 02/18/23 10:21 (units unknown) (unknown) (unknown) (no date) (unknown) (unknown) Temperature 98.7 F (units unknown) (unknown) (unknown) (no date) (unknown) (unknown) Temperature (units unknown) (unknown) (unknown) (no date) (unknown) (unknown) This is a 87-year-old male who presents with potential GI bleed. Patient is (units unknown) (unknown) (unknown) (no date) (unknown) (unknown) Time Seen by Provider: 02/18/23 12:57 (units unknown) (unknown) (unknown) (no date) (unknown) (unknown) Total Bilirubin (0.2-1.3) mg/dL (units unknown) (unknown) (unknown) (no date) (unknown) (unknown) Total Bilirubin 0.6 (0.2-1.3) mg/dL (units unknown) (unknown) (unknown) (no date) (unknown) (unknown) Total Protein (6.3-8.2) g/dL (units unknown) (unknown) (unknown) (no date) (unknown) (unknown) Total Protein 6.8 (6.3-8.2) g/dL (units unknown) (unknown) (unknown) (no date) (unknown) (unknown) Type and Screen Stat (units unknown) (unknown) (unknown) (no date) (unknown) (unknown) Vital Signs - 8 hr (units unknown) (unknown) (unknown) (no date) (unknown) (unknown) Vital Signs (units unknown) (unknown) (unknown) (no date) (unknown) (unknown) Vital signs: (units unknown) (unknown) (unknown) (no date) (unknown) (unknown) WBC (4.5-11.0) X103/uL (units unknown) (unknown) (unknown) (no date) (unknown) (unknown) WBC 7.6 (4.5-11.0) X103/uL (units unknown) (unknown) (unknown) (no date) (unknown) (unknown) Xarelto 20 mg Tablet (units unknown) (unknown) (unknown) (no date) (unknown) (unknown) [Embedded Image Not Available] (units unknown) (unknown) (unknown) (no date) (unknown) (unknown) alcohol intake frequency: 0-2 drinks per day (units unknown) (unknown) (unknown) (no date) (unknown) (unknown) alcohol intake: current (units unknown) (unknown) (unknown) (no date) (unknown) (unknown) and below (units unknown) (unknown) (unknown) (no date) (unknown) (unknown) and he seems a little gone so CT abdomen pelvis was obtained. Patient has dark (units unknown) (unknown) (unknown) (no date) (unknown) (unknown) bimatoprost 0.01 % eye drops 1 drp ophthalmic (eye) DAILY 10/24/22 10/24/22 (units unknown) (unknown) (unknown) (no date) (unknown) (unknown) black stool present on rectal exam. Positive for Hemoccult. (units unknown) (unknown) (unknown) (no date) (unknown) (unknown) blunt his tachycardia response. Patient's family has noted a lot of weight loss (units unknown) (unknown) (unknown) (no date) (unknown) (unknown) bupropion HCl 150 mg Tablet Sustained-Release 12 Hr (units unknown) (unknown) (unknown) (no date) (unknown) (unknown) bupropion HCl 150 mg tablet,12 hr 150 mg PO BID 10/24/22 10/24/22 (units unknown) (unknown) (unknown) (no date) (unknown) (unknown) but type and screen was ordered with plan to transfuse if needed. Patient is (units unknown) (unknown) (unknown) (no date) (unknown) (unknown) capsule,extended release 24 hr (units unknown) (unknown) (unknown) (no date) (unknown) (unknown) chest pain or shortness of breath. Patient states he is not had GI bleeds in (units unknown) (unknown) (unknown) (no date) (unknown) (unknown) denies any urinary symptoms no hematuria, dysuria, urgency or frequency. Denies (units unknown) (unknown) (unknown) (no date) (unknown) (unknown) diarrhea but did have stool today. He is not had similar in the past. He (units unknown) (unknown) (unknown) (no date) (unknown) (unknown) diltiazem HCl 240 mg 240 mg PO DAILY 10/24/22 10/24/22 (units unknown) (unknown) (unknown) (no date) (unknown) (unknown) diltiazem HCl 240 mg Capsule,Extended Release 24hr (units unknown) (unknown) (unknown) (no date) (unknown) (unknown) dorzolamide 22.3 mg-timolol 6.8 1 drp ophthalmic (eye) DAILY 10/24/22 10/24/22 (units unknown) (unknown) (unknown) (no date) (unknown) (unknown) dorzolamide-timolol 22.3-6.8 mg/mL Drops (units unknown) (unknown) (unknown) (no date) (unknown) (unknown) ea (units unknown) (unknown) (unknown) (no date) (unknown) (unknown) extremities (units unknown) (unknown) (unknown) (no date) (unknown) (unknown) face symmetric, moist mucous membranes (units unknown) (unknown) (unknown) (no date) (unknown) (unknown) fevers or chills. No nausea or vomiting. He denies any lightheadedness. No (units unknown) (unknown) (unknown) (no date) (unknown) (unknown) finasteride 5 mg Tablet (units unknown) (unknown) (unknown) (no date) (unknown) (unknown) finasteride 5 mg tablet 5 mg PO DAILY 10/24/22 10/24/22 (units unknown) (unknown) (unknown) (no date) (unknown) (unknown) fluids and case discussed with Dr. Altman, general surgery. (units unknown) (unknown) (unknown) (no date) (unknown) (unknown) gabapentin 400 mg capsule 400 mg PO TID #30 caps 12/04/22 (units unknown) (unknown) (unknown) (no date) (unknown) (unknown) gabapentin 400 mg capsule (units unknown) (unknown) (unknown) (no date) (unknown) (unknown) gallops. No JVD. No swelling bilateral lower extremities. (units unknown) (unknown) (unknown) (no date) (unknown) (unknown) guarding or rebound, rigidity, no mass, patient has a large amount of red and (units unknown) (unknown) (unknown) (no date) (unknown) (unknown) has had a significant decrease in his weight loss over the past several months. (units unknown) (unknown) (unknown) (no date) (unknown) (unknown) him up from [facility] who rehab today to take him home. He notes that he has a is (units unknown) (unknown) (unknown) (no date) (unknown) (unknown) his leg pain and this significantly improved his symptoms. No tobacco, alcohol (units unknown) (unknown) (unknown) (no date) (unknown) (unknown) household members: none and other (units unknown) (unknown) (unknown) (no date) (unknown) (unknown) hypotensive he states this is his normal blood pressure, on visits in December he (units unknown) (unknown) (unknown) (no date) (unknown) (unknown) intact (units unknown) (unknown) (unknown) (no date) (unknown) (unknown) it was more dark blood and not bright red. He denies abdominal back or flank (units unknown) (unknown) (unknown) (no date) (unknown) (unknown) last night everything was fine he had a very dark bloody stool today. He states (units unknown) (unknown) (unknown) (no date) (unknown) (unknown) leave on most painful area for up to 12 hrs (units unknown) (unknown) (unknown) (no date) (unknown) (unknown) lidocaine 5 % adhesive patch,medicated (units unknown) (unknown) (unknown) (no date) (unknown) (unknown) lidocaine 5 % topical patch 1 patch topical DAILY PRN pain #30 12/04/22 (units unknown) (unknown) (unknown) (no date) (unknown) (unknown) mg/mL eye drops (units unknown) (unknown) (unknown) (no date) (unknown) (unknown) must administer with evening meal (units unknown) (unknown) (unknown) (no date) (unknown) (unknown) normal LFTs and electrolytes. INR is 1.7. Patient is not currently symptomatic (units unknown) (unknown) (unknown) (no date) (unknown) (unknown) not tachycardic accept for initially 98-100 but is on diltiazem which might (units unknown) (unknown) (unknown) (no date) (unknown) (unknown) omeprazole 20 mg Capsule,Delayed Release(Dr/Ec) (units unknown) (unknown) (unknown) (no date) (unknown) (unknown) omeprazole 20 mg capsule,delayed 20 mg PO DAILY 10/24/22 10/24/22 (units unknown) (unknown) (unknown) (no date) (unknown) (unknown) or illicit. No known drug allergies. Dr. Booth is his primary care physician. (units unknown) (unknown) (unknown) (no date) (unknown) (unknown) paced but otherwise no other ST segments noted. (units unknown) (unknown) (unknown) (no date) (unknown) (unknown) pain. He denies any rectal pain. States he has not been having frequent (units unknown) (unknown) (unknown) (no date) (unknown) (unknown) recent bone that had injection in significant improvement of his pain and (units unknown) (unknown) (unknown) (no date) (unknown) (unknown) red along with blackish discolored stool so Protonix 80 mg was ordered, gentle (units unknown) (unknown) (unknown) (no date) (unknown) (unknown) release (units unknown) (unknown) (unknown) (no date) (unknown) (unknown) right eye (units unknown) (unknown) (unknown) (no date) (unknown) (unknown) rivaroxaban 20 mg tablet (Xarelto) 20 mg PO QPM 10/24/22 10/24/22 (units unknown) (unknown) (unknown) (no date) (unknown) (unknown) setting up home health care for the patient as well. Son also notes the patient (units unknown) (unknown) (unknown) (no date) (unknown) (unknown) sustained-release (units unknown) (unknown) (unknown) (no date) (unknown) (unknown) tachypnea or accessory muscle use. (units unknown) (unknown) (unknown) (no date) (unknown) (unknown) tamsulosin 0.4 mg Capsule (units unknown) (unknown) (unknown) (no date) (unknown) (unknown) tamsulosin 0.4 mg capsule 0.4 mg PO BEDTIME 10/24/22 10/24/22 (units unknown) (unknown) (unknown) (no date) (unknown) (unknown) the past. Patient denies any surgeries he states he did have an injection for (units unknown) (unknown) (unknown) (no date) (unknown) (unknown) topical ointment (units unknown) (unknown) (unknown) (no date) (unknown) (unknown) tramadol 50 mg tablet 50 mg PO Q8H PRN pain #10 tabs 12/04/22 (units unknown) (unknown) (unknown) (no date) (unknown) (unknown) tramadol 50 mg tablet 50 mg PO Q8H PRN pain #10 tabs 12/25/22 (units unknown) (unknown) (unknown) (no date) (unknown) (unknown) tramadol 50 mg tablet (units unknown) (unknown) (unknown) (no date) (unknown) (unknown) triamcinolone acetonide 0.1 % 1 applic topical DAILY PRN Dry Skin 10/24/22 (units unknown) (unknown) (unknown) (no date) (unknown) (unknown) triamcinolone acetonide 0.1 % Ointment (units unknown) (unknown) (unknown) (no date) (unknown) (unknown) vitamin B complex (B 1 tab PO DAILY 10/24/22 10/24/22 (units unknown) (unknown) (unknown) (no date) (unknown) (unknown) vitamin B complex [B Complex-Vitamin B12] Tablet (units unknown) (unknown) (unknown) (no date) (unknown) (unknown) was 120-117, patient's son is not sure. He notes he has lost a lot of weight. (units unknown) (unknown) (unknown) (no date) (unknown) (unknown) weakness but had just been discharged from rehab for debility. Patient states (units unknown) (unknown) (unknown) (no date) (unknown) (unknown) white count but is anticoagulated on Xarelto. Creatinine is 1.05 BUN is 15, (units unknown) (unknown) Result panel 122 (unknown) (no date) (unknown) (unknown) (no value) (units unknown) (unknown) (unknown) (no date) (unknown) (unknown) ([place]) (units unknown) (unknown) (unknown) (no date) (unknown) (unknown) 0.4 mg PO BEDTIME (units unknown) (unknown) (unknown) (no date) (unknown) (unknown) 10/24/22 (units unknown) (unknown) (unknown) (no date) (unknown) (unknown) [id number] (units unknown) (unknown) (unknown) (no date) (unknown) (unknown) 02/18/23 02/18/23 02/18/23 Range/Units (units unknown) (unknown) (unknown) (no date) (unknown) (unknown) 02/18/23 10:16 (units unknown) (unknown) (unknown) (no date) (unknown) (unknown) 02/18/23 10:28 (units unknown) (unknown) (unknown) (no date) (unknown) (unknown) 02/18/23 10:30 (units unknown) (unknown) (unknown) (no date) (unknown) (unknown) 02/18/23 13:36 (units unknown) (unknown) (unknown) (no date) (unknown) (unknown) 02/18/23 Range/Units (units unknown) (unknown) (unknown) (no date) (unknown) (unknown) 02/18/23 (units unknown) (unknown) (unknown) (no date) (unknown) (unknown) 1 applic TOPICAL DAILY PRN (Reason: Dry Skin) (units unknown) (unknown) (unknown) (no date) (unknown) (unknown) 1 drp OPHTHALMIC (EYE) DAILY (units unknown) (unknown) (unknown) (no date) (unknown) (unknown) 1 patch topical DAILY PRN (Reason: pain) Qty: 30 0RF (units unknown) (unknown) (unknown) (no date) (unknown) (unknown) 1 tab PO DAILY (units unknown) (unknown) (unknown) (no date) (unknown) (unknown) 10:16 10:16 10:16 (units unknown) (unknown) (unknown) (no date) (unknown) (unknown) 10:21 02/18/23 (units unknown) (unknown) (unknown) (no date) (unknown) (unknown) 10:22 02/18/23 (units unknown) (unknown) (unknown) (no date) (unknown) (unknown) 10:28 (units unknown) (unknown) (unknown) (no date) (unknown) (unknown) 10:30 02/18/23 (units unknown) (unknown) (unknown) (no date) (unknown) (unknown) 10:30 (units unknown) (unknown) (unknown) (no date) (unknown) (unknown) 10:45 02/18/23 (units unknown) (unknown) (unknown) (no date) (unknown) (unknown) 10:45 (units unknown) (unknown) (unknown) (no date) (unknown) (unknown) 11:00 02/18/23 (units unknown) (unknown) (unknown) (no date) (unknown) (unknown) 11:15 02/18/23 (units unknown) (unknown) (unknown) (no date) (unknown) (unknown) 11:15 (units unknown) (unknown) (unknown) (no date) (unknown) (unknown) 11:30 02/18/23 (units unknown) (unknown) (unknown) (no date) (unknown) (unknown) 11:30 (units unknown) (unknown) (unknown) (no date) (unknown) (unknown) 11:45 02/18/23 (units unknown) (unknown) (unknown) (no date) (unknown) (unknown) 12:00 02/18/23 (units unknown) (unknown) (unknown) (no date) (unknown) (unknown) 12:00 (units unknown) (unknown) (unknown) (no date) (unknown) (unknown) 12:15 02/18/23 (units unknown) (unknown) (unknown) (no date) (unknown) (unknown) 12:15 (units unknown) (unknown) (unknown) (no date) (unknown) (unknown) 150 mg PO BID (units unknown) (unknown) (unknown) (no date) (unknown) (unknown) 20 mg PO DAILY (units unknown) (unknown) (unknown) (no date) (unknown) (unknown) 20 mg PO QPM (units unknown) (unknown) (unknown) (no date) (unknown) (unknown) 240 mg PO DAILY (units unknown) (unknown) (unknown) (no date) (unknown) (unknown) 400 mg PO TID Qty: 30 0RF (units unknown) (unknown) (unknown) (no date) (unknown) (unknown) 5 mg PO DAILY (units unknown) (unknown) (unknown) (no date) (unknown) (unknown) 50 mg PO Q8H PRN (Reason: pain) Qty: 10 0RF (units unknown) (unknown) (unknown) (no date) (unknown) (unknown) 87-year-old male with history of atrial fibrillation on Xarelto and diltiazem, (units unknown) (unknown) (unknown) (no date) (unknown) (unknown) ABDOMEN: Soft, nontender. Normoactive bowel sounds all 4 quadrants. No (units unknown) (unknown) (unknown) (no date) (unknown) (unknown) ALT (<50) IU/L (units unknown) (unknown) (unknown) (no date) (unknown) (unknown) ALT 28 (<50) IU/L (units unknown) (unknown) (unknown) (no date) (unknown) (unknown) APTT (26-36) SECONDS (units unknown) (unknown) (unknown) (no date) (unknown) (unknown) APTT 37 H (26-36) SECONDS (units unknown) (unknown) (unknown) (no date) (unknown) (unknown) AST (17-59) IU/L (units unknown) (unknown) (unknown) (no date) (unknown) (unknown) AST 30 (17-59) IU/L (units unknown) (unknown) (unknown) (no date) (unknown) (unknown) Age/Sex: 87 / M (units unknown) (unknown) (unknown) (no date) (unknown) (unknown) Albumin (3.5-5.0) g/dL (units unknown) (unknown) (unknown) (no date) (unknown) (unknown) Albumin 3.4 L (3.5-5.0) g/dL (units unknown) (unknown) (unknown) (no date) (unknown) (unknown) Albumin/Globulin Ratio (1.0-2.8) (units unknown) (unknown) (unknown) (no date) (unknown) (unknown) Albumin/Globulin Ratio 1.0 (1.0-2.8) (units unknown) (unknown) (unknown) (no date) (unknown) (unknown) Alkaline Phosphatase (38-126) U/L (units unknown) (unknown) (unknown) (no date) (unknown) (unknown) Alkaline Phosphatase 87 (38-126) U/L (units unknown) (unknown) (unknown) (no date) (unknown) (unknown) Allergies (units unknown) (unknown) (unknown) (no date) (unknown) (unknown) Allergy/AdvReac Type Severity Reaction Status Date / Time (units unknown) (unknown) (unknown) (no date) (unknown) (unknown) Antibody Screen Negative (units unknown) (unknown) (unknown) (no date) (unknown) (unknown) Antibody Screen (units unknown) (unknown) (unknown) (no date) (unknown) (unknown) Atrial flutter with variable AV block, occasionally ventricular paced rhythms. (units unknown) (unknown) (unknown) (no date) (unknown) (unknown) Attestation: I personally reviewed and interpreted this ECG as follows: (units unknown) (unknown) (unknown) (no date) (unknown) (unknown) BPH (benign prostatic hyperplasia) (units unknown) (unknown) (unknown) (no date) (unknown) (unknown) BUN (9-20) mg/dL (units unknown) (unknown) (unknown) (no date) (unknown) (unknown) BUN 15 (9-20) mg/dL (units unknown) (unknown) (unknown) (no date) (unknown) (unknown) BUN/Creatinine Ratio (6-22) (units unknown) (unknown) (unknown) (no date) (unknown) (unknown) BUN/Creatinine Ratio 14.3 (6-22) (units unknown) (unknown) (unknown) (no date) (unknown) (unknown) Baso # (Auto) (0-100) /uL (units unknown) (unknown) (unknown) (no date) (unknown) (unknown) Baso # (Auto) 100 (0-100) /uL (units unknown) (unknown) (unknown) (no date) (unknown) (unknown) Baso % (Auto) (0-2) % (units unknown) (unknown) (unknown) (no date) (unknown) (unknown) Baso % (Auto) 1.1 (0-2) % (units unknown) (unknown) (unknown) (no date) (unknown) (unknown) Blood Pressure 100/66 94/59 L (units unknown) (unknown) (unknown) (no date) (unknown) (unknown) Blood Pressure 87/56 L 92/55 L (units unknown) (unknown) (unknown) (no date) (unknown) (unknown) Blood Pressure 91/53 L (units unknown) (unknown) (unknown) (no date) (unknown) (unknown) Blood Pressure 93/60 05/12/23 10:21 (units unknown) (unknown) (unknown) (no date) (unknown) (unknown) Blood Pressure 93/60 88/65 L (units unknown) (unknown) (unknown) (no date) (unknown) (unknown) Blood Pressure 94/56 L (units unknown) (unknown) (unknown) (no date) (unknown) (unknown) Blood Pressure 98/57 L (units unknown) (unknown) (unknown) (no date) (unknown) (unknown) Blood Type B Positive (units unknown) (unknown) (unknown) (no date) (unknown) (unknown) Blood Type (units unknown) (unknown) (unknown) (no date) (unknown) (unknown) CARDIOVASCULAR: Irregularly irregular rate and rhythm without murmurs, rubs or (units unknown) (unknown) (unknown) (no date) (unknown) (unknown) CT abdomen pelvis w con Stat (units unknown) (unknown) (unknown) (no date) (unknown) (unknown) Calcium (8.4-10.2) mg/dL (units unknown) (unknown) (unknown) (no date) (unknown) (unknown) Calcium 8.7 (8.4-10.2) mg/dL (units unknown) (unknown) (unknown) (no date) (unknown) (unknown) Carbon Dioxide (22-32) mmol/L (units unknown) (unknown) (unknown) (no date) (unknown) (unknown) Carbon Dioxide 25 (22-32) mmol/L (units unknown) (unknown) (unknown) (no date) (unknown) (unknown) Chief complaint: GI Bleed (units unknown) (unknown) (unknown) (no date) (unknown) (unknown) Chloride (98-107) mmol/L (units unknown) (unknown) (unknown) (no date) (unknown) (unknown) Chloride 107 (98-107) mmol/L (units unknown) (unknown) (unknown) (no date) (unknown) (unknown) Chronic anticoagulation (units unknown) (unknown) (unknown) (no date) (unknown) (unknown) Clinical Impression: (units unknown) (unknown) (unknown) (no date) (unknown) (unknown) Complete Blood Count AUTO DIFF Stat (units unknown) (unknown) (unknown) (no date) (unknown) (unknown) Complex-Vitamin B12 tablet) (units unknown) (unknown) (unknown) (no date) (unknown) (unknown) Comprehensive Metabolic Panel Stat (units unknown) (unknown) (unknown) (no date) (unknown) (unknown) Course (units unknown) (unknown) (unknown) (no date) (unknown) (unknown) Creatinine (0.66-1.25) mg/dL (units unknown) (unknown) (unknown) (no date) (unknown) (unknown) Creatinine 1.05 (0.66-1.25) mg/dL (units unknown) (unknown) (unknown) (no date) (unknown) (unknown) : 1935 Acct:[id number] (units unknown) (unknown) (unknown) (no date) (unknown) (unknown) Date of Service: 02/18/23 (units unknown) (unknown) (unknown) (no date) (unknown) (unknown) Departure (units unknown) (unknown) (unknown) (no date) (unknown) (unknown) Discharge Plan (units unknown) (unknown) (unknown) (no date) (unknown) (unknown) Discontinued Medications (units unknown) (unknown) (unknown) (no date) (unknown) (unknown) Documented By: [facility] (units unknown) (unknown) (unknown) (no date) (unknown) (unknown) Dr. Santana, hospitalist (units unknown) (unknown) (unknown) (no date) (unknown) (unknown) ECG Data (units unknown) (unknown) (unknown) (no date) (unknown) (unknown) ED Orders (units unknown) (unknown) (unknown) (no date) (unknown) (unknown) EKG-12 Lead Stat (units unknown) (unknown) (unknown) (no date) (unknown) (unknown) ER Physician: Natalie Hernandez D.O. (units unknown) (unknown) (unknown) (no date) (unknown) (unknown) EXTREMITIES: Normal range of motion, no clubbing or edema. Neurovascularly (units unknown) (unknown) (unknown) (no date) (unknown) (unknown) Emergency Report (units unknown) (unknown) (unknown) (no date) (unknown) (unknown) Eos # (Auto) (0-450) /uL (units unknown) (unknown) (unknown) (no date) (unknown) (unknown) Eos # (Auto) 100 (0-450) /uL (units unknown) (unknown) (unknown) (no date) (unknown) (unknown) Eos % (Auto) (2-4) % (units unknown) (unknown) (unknown) (no date) (unknown) (unknown) Eos % (Auto) 1.2 L (2-4) % (units unknown) (unknown) (unknown) (no date) (unknown) (unknown) Estimated GFR > 60 (>60) mL/min (units unknown) (unknown) (unknown) (no date) (unknown) (unknown) Estimated GFR (>60) mL/min (units unknown) (unknown) (unknown) (no date) (unknown) (unknown) Exam Narrative: (units unknown) (unknown) (unknown) (no date) (unknown) (unknown) Exam (units unknown) (unknown) (unknown) (no date) (unknown) (unknown) Family History (units unknown) (unknown) (unknown) (no date) (unknown) (unknown) Father No problems noted. (units unknown) (unknown) (unknown) (no date) (unknown) (unknown) GENERAL: Alert and oriented x three, mild distress. (units unknown) (unknown) (unknown) (no date) (unknown) (unknown) GI bleed (units unknown) (unknown) (unknown) (no date) (unknown) (unknown) : No CVA tenderness (units unknown) (unknown) (unknown) (no date) (unknown) (unknown) General (units unknown) (unknown) (unknown) (no date) (unknown) (unknown) Globulin (1.7-4.1) g/dL (units unknown) (unknown) (unknown) (no date) (unknown) (unknown) Globulin 3.4 (1.7-4.1) g/dL (units unknown) (unknown) (unknown) (no date) (unknown) (unknown) Glucose (80-110) mg/dL (units unknown) (unknown) (unknown) (no date) (unknown) (unknown) Glucose 136 H (80-110) mg/dL (units unknown) (unknown) (unknown) (no date) (unknown) (unknown) HEENT: Head normocephalic, atraumatic, EOMI, pale conjunctiva. Pupils reactive, (units unknown) (unknown) (unknown) (no date) (unknown) (unknown) HPI - GI Bleed (units unknown) (unknown) (unknown) (no date) (unknown) (unknown) HPI Narrative: (units unknown) (unknown) (unknown) (no date) (unknown) (unknown) Hct (41-53) % (units unknown) (unknown) (unknown) (no date) (unknown) (unknown) Hct 35.6 L (41-53) % (units unknown) (unknown) (unknown) (no date) (unknown) (unknown) He has been using a walker and wheelchair intermittently and his son was picking (units unknown) (unknown) (unknown) (no date) (unknown) (unknown) Hemoglobin is 11.8 he was 13.6 on October 25, 2022 normal platelets today normal (units unknown) (unknown) (unknown) (no date) (unknown) (unknown) Hgb (13.5-17.5) g/dL (units unknown) (unknown) (unknown) (no date) (unknown) (unknown) Hgb 11.8 L (13.5-17.5) g/dL (units unknown) (unknown) (unknown) (no date) (unknown) (unknown) History of Present Illness (units unknown) (unknown) (unknown) (no date) (unknown) (unknown) History of permanent cardiac pacemaker placement (units unknown) (unknown) (unknown) (no date) (unknown) (unknown) Home Medications (units unknown) (unknown) (unknown) (no date) (unknown) (unknown) INR (0.9-1.3) (units unknown) (unknown) (unknown) (no date) (unknown) (unknown) INR 1.7 H (0.9-1.3) (units unknown) (unknown) (unknown) (no date) (unknown) (unknown) Initial Vital Signs (units unknown) (unknown) (unknown) (no date) (unknown) (unknown) Initial Vital Signs: (units unknown) (unknown) (unknown) (no date) (unknown) (unknown) Interpretation: (units unknown) (unknown) (unknown) (no date) (unknown) (unknown) [address] [id number] (units unknown) (unknown) (unknown) (no date) (unknown) (unknown) Lab Data (units unknown) (unknown) (unknown) (no date) (unknown) (unknown) Lab Results (units unknown) (unknown) (unknown) (no date) (unknown) (unknown) Labs: (units unknown) (unknown) (unknown) (no date) (unknown) (unknown) Last Admin: 02/18/23 11:36 Dose: 80 mg (units unknown) (unknown) (unknown) (no date) (unknown) (unknown) Limitations: no limitations (units unknown) (unknown) (unknown) (no date) (unknown) (unknown) [place] 0.01 % Drops (units unknown) (unknown) (unknown) (no date) (unknown) (unknown) Lymph # (Auto) (1324-6395) /uL (units unknown) (unknown) (unknown) (no date) (unknown) (unknown) Lymph # (Auto) 1100 (8290-4012) /uL (units unknown) (unknown) (unknown) (no date) (unknown) (unknown) Lymph % (Auto) (25-40) % (units unknown) (unknown) (unknown) (no date) (unknown) (unknown) Lymph % (Auto) 15.0 L (25-40) % (units unknown) (unknown) (unknown) (no date) (unknown) (unknown) MCH (26-34) PG (units unknown) (unknown) (unknown) (no date) (unknown) (unknown) MCH 31.3 (26-34) PG (units unknown) (unknown) (unknown) (no date) (unknown) (unknown) MCHC (30-36) % (units unknown) (unknown) (unknown) (no date) (unknown) (unknown) MCHC 33.1 (30-36) % (units unknown) (unknown) (unknown) (no date) (unknown) (unknown) MCV (80-100) fL (units unknown) (unknown) (unknown) (no date) (unknown) (unknown) MCV 94.6 (80-100) fL (units unknown) (unknown) (unknown) (no date) (unknown) (unknown) MDM - GI Bleed (units unknown) (unknown) (unknown) (no date) (unknown) (unknown) MDM Narrative (units unknown) (unknown) (unknown) (no date) (unknown) (unknown) Medical History (units unknown) (unknown) (unknown) (no date) (unknown) (unknown) Medical decision making narrative: (units unknown) (unknown) (unknown) (no date) (unknown) (unknown) Medication Instructions Recorded Confirmed (units unknown) (unknown) (unknown) (no date) (unknown) (unknown) Medication Instructions Recorded (units unknown) (unknown) (unknown) (no date) (unknown) (unknown) Miscellaneous,Doctor , MD [Primary Care Provider] (units unknown) (unknown) (unknown) (no date) (unknown) (unknown) Mode of arrival: EMS (units unknown) (unknown) (unknown) (no date) (unknown) (unknown) [place] # (Auto) (0-900) /uL (units unknown) (unknown) (unknown) (no date) (unknown) (unknown) [place] # (Auto) 600 (0-900) /uL (units unknown) (unknown) (unknown) (no date) (unknown) (unknown) [place] % (Auto) (3-14) % (units unknown) (unknown) (unknown) (no date) (unknown) (unknown) [place] % (Auto) 8.3 (3-14) % (units unknown) (unknown) (unknown) (no date) (unknown) (unknown) Mother Cancer (units unknown) (unknown) (unknown) (no date) (unknown) (unknown) NECK: Supple, full range of motion (units unknown) (unknown) (unknown) (no date) (unknown) (unknown) NEUROLOGICAL: Cranial nerves II through XII grossly intact. Moving all (units unknown) (unknown) (unknown) (no date) (unknown) (unknown) Narrative (units unknown) (unknown) (unknown) (no date) (unknown) (unknown) Neut # (Auto) (2797-2449) /uL (units unknown) (unknown) (unknown) (no date) (unknown) (unknown) Neut # (Auto) 5600 (7806-0185) /uL (units unknown) (unknown) (unknown) (no date) (unknown) (unknown) Neut % (Auto) (50-75) % (units unknown) (unknown) (unknown) (no date) (unknown) (unknown) Neut % (Auto) 74.4 (50-75) % (units unknown) (unknown) (unknown) (no date) (unknown) (unknown) No Action (units unknown) (unknown) (unknown) (no date) (unknown) (unknown) No Known Drug Allergies Allergy Verified 02/18/23 10:27 (units unknown) (unknown) (unknown) (no date) (unknown) (unknown) Ondansetron HCl (Ondansetron 4 Mg/2 Ml Inj) 4 mg IV NOW PRN (units unknown) (unknown) (unknown) (no date) (unknown) (unknown) Ordered: (units unknown) (unknown) (unknown) (no date) (unknown) (unknown) Orders (units unknown) (unknown) (unknown) (no date) (unknown) (unknown) Osteoporosis (units unknown) (unknown) (unknown) (no date) (unknown) (unknown) Oxygen Delivery Method Room Air 02/18/23 10:21 (units unknown) (unknown) (unknown) (no date) (unknown) (unknown) Oxygen Delivery Method Room Air (units unknown) (unknown) (unknown) (no date) (unknown) (unknown) Oxygen Delivery Method (units unknown) (unknown) (unknown) (no date) (unknown) (unknown) PRN Reason: Nausea And Vomiting (units unknown) (unknown) (unknown) (no date) (unknown) (unknown) PT (10.1-12.7) SECONDS (units unknown) (unknown) (unknown) (no date) (unknown) (unknown) PT 20.0 H (10.1-12.7) SECONDS (units unknown) (unknown) (unknown) (no date) (unknown) (unknown) PTT Partial Thromboplastin Rodriguez Stat (units unknown) (unknown) (unknown) (no date) (unknown) (unknown) Pantoprazole Sodium (Pantoprazole 40 Mg Vial) 80 mg IV NOW ONE (units unknown) (unknown) (unknown) (no date) (unknown) (unknown) Patient History (units unknown) (unknown) (unknown) (no date) (unknown) (unknown) Patient is open to blood transfusion. (units unknown) (unknown) (unknown) (no date) (unknown) (unknown) Patient: Jonny Neely MR#: [id number] (units unknown) (unknown) (unknown) (no date) (unknown) (unknown) Plt Count (150-400) X103/uL (units unknown) (unknown) (unknown) (no date) (unknown) (unknown) Plt Count 183 (150-400) X103/uL (units unknown) (unknown) (unknown) (no date) (unknown) (unknown) Potassium (3.4-5.1) mmol/L (units unknown) (unknown) (unknown) (no date) (unknown) (unknown) Potassium 3.6 (3.4-5.1) mmol/L (units unknown) (unknown) (unknown) (no date) (unknown) (unknown) Prescriptions: (units unknown) (unknown) (unknown) (no date) (unknown) (unknown) Previous Rx's (units unknown) (unknown) (unknown) (no date) (unknown) (unknown) Prior ECG tracings: available for review (units unknown) (unknown) (unknown) (no date) (unknown) (unknown) Prothrombin Time INR Stat (units unknown) (unknown) (unknown) (no date) (unknown) (unknown) Pulse Oximetry 97 96 (units unknown) (unknown) (unknown) (no date) (unknown) (unknown) Pulse Oximetry 97 (units unknown) (unknown) (unknown) (no date) (unknown) (unknown) Pulse Oximetry 98 02/18/23 10:21 (units unknown) (unknown) (unknown) (no date) (unknown) (unknown) Pulse Oximetry 98 97 (units unknown) (unknown) (unknown) (no date) (unknown) (unknown) Pulse Oximetry 98 98 (units unknown) (unknown) (unknown) (no date) (unknown) (unknown) Pulse Oximetry 99 98 (units unknown) (unknown) (unknown) (no date) (unknown) (unknown) Pulse Oximetry 99 (units unknown) (unknown) (unknown) (no date) (unknown) (unknown) Pulse Rate 101 H 81 (units unknown) (unknown) (unknown) (no date) (unknown) (unknown) Pulse Rate 75 (units unknown) (unknown) (unknown) (no date) (unknown) (unknown) Pulse Rate 77 (units unknown) (unknown) (unknown) (no date) (unknown) (unknown) Pulse Rate 78 74 (units unknown) (unknown) (unknown) (no date) (unknown) (unknown) Pulse Rate 80 76 (units unknown) (unknown) (unknown) (no date) (unknown) (unknown) Pulse Rate 81 02/18/23 10:21 (units unknown) (unknown) (unknown) (no date) (unknown) (unknown) Pulse Rate 81 98 H (units unknown) (unknown) (unknown) (no date) (unknown) (unknown) RBC (4.5-5.9) X106/uL (units unknown) (unknown) (unknown) (no date) (unknown) (unknown) RBC 3.76 L (4.5-5.9) X106/uL (units unknown) (unknown) (unknown) (no date) (unknown) (unknown) RDW (11.6-14.8) % (units unknown) (unknown) (unknown) (no date) (unknown) (unknown) RDW 16.6 H (11.6-14.8) % (units unknown) (unknown) (unknown) (no date) (unknown) (unknown) RESPIRATORY: Breath sounds equal bilaterally, no wheezes rales or rhonchi. No (units unknown) (unknown) (unknown) (no date) (unknown) (unknown) ROS Unobtainable: All systems reviewed + are unremarkable except as noted in HPI (units unknown) (unknown) (unknown) (no date) (unknown) (unknown) Referrals: (units unknown) (unknown) (unknown) (no date) (unknown) (unknown) Related Data (units unknown) (unknown) (unknown) (no date) (unknown) (unknown) Respiratory Rate 12 15 (units unknown) (unknown) (unknown) (no date) (unknown) (unknown) Respiratory Rate 13 (units unknown) (unknown) (unknown) (no date) (unknown) (unknown) Respiratory Rate 15 (units unknown) (unknown) (unknown) (no date) (unknown) (unknown) Respiratory Rate 16 05/12/23 10:21 (units unknown) (unknown) (unknown) (no date) (unknown) (unknown) Respiratory Rate 16 15 (units unknown) (unknown) (unknown) (no date) (unknown) (unknown) Respiratory Rate 18 13 (units unknown) (unknown) (unknown) (no date) (unknown) (unknown) Respiratory Rate 21 14 (units unknown) (unknown) (unknown) (no date) (unknown) (unknown) Review of Systems (units unknown) (unknown) (unknown) (no date) (unknown) (unknown) Right bundle. Rate of 83 QRS of 124 QTC of 434. Patient has prior EKG is not (units unknown) (unknown) (unknown) (no date) (unknown) (unknown) Rx Instructions: (units unknown) (unknown) (unknown) (no date) (unknown) (unknown) SKIN: Warm, dry, no petechiae, no rashes or lesions. (units unknown) (unknown) (unknown) (no date) (unknown) (unknown) Signed By: (units unknown) (unknown) (unknown) (no date) (unknown) (unknown) Smoking Status: Never smoker (units unknown) (unknown) (unknown) (no date) (unknown) (unknown) Social History (units unknown) (unknown) (unknown) (no date) (unknown) (unknown) Sodium (137-145) mmol/L (units unknown) (unknown) (unknown) (no date) (unknown) (unknown) Sodium 139 (137-145) mmol/L (units unknown) (unknown) (unknown) (no date) (unknown) (unknown) Sodium Chloride (Normal Saline 0.9%) 1,000 mls @ 150 mls/hr IV CONT KEON (units unknown) (unknown) (unknown) (no date) (unknown) (unknown) Source: patient and EMS (units unknown) (unknown) (unknown) (no date) (unknown) (unknown) Stated complaint: Possible GI bleed (units unknown) (unknown) (unknown) (no date) (unknown) (unknown) Stop: 02/18/23 10:19 (units unknown) (unknown) (unknown) (no date) (unknown) (unknown) Substance Use Type: does not use (units unknown) (unknown) (unknown) (no date) (unknown) (unknown) Surgical History (units unknown) (unknown) (unknown) (no date) (unknown) (unknown) Temperature 98.7 F 02/18/23 10:21 (units unknown) (unknown) (unknown) (no date) (unknown) (unknown) Temperature 98.7 F (units unknown) (unknown) (unknown) (no date) (unknown) (unknown) Temperature (units unknown) (unknown) (unknown) (no date) (unknown) (unknown) This is a 87-year-old male who presents with potential GI bleed. Patient is (units unknown) (unknown) (unknown) (no date) (unknown) (unknown) Time Seen by Provider: 02/18/23 12:57 (units unknown) (unknown) (unknown) (no date) (unknown) (unknown) Total Bilirubin (0.2-1.3) mg/dL (units unknown) (unknown) (unknown) (no date) (unknown) (unknown) Total Bilirubin 0.6 (0.2-1.3) mg/dL (units unknown) (unknown) (unknown) (no date) (unknown) (unknown) Total Protein (6.3-8.2) g/dL (units unknown) (unknown) (unknown) (no date) (unknown) (unknown) Total Protein 6.8 (6.3-8.2) g/dL (units unknown) (unknown) (unknown) (no date) (unknown) (unknown) Type and Screen Stat (units unknown) (unknown) (unknown) (no date) (unknown) (unknown) Vital Signs - 8 hr (units unknown) (unknown) (unknown) (no date) (unknown) (unknown) Vital Signs (units unknown) (unknown) (unknown) (no date) (unknown) (unknown) Vital signs: (units unknown) (unknown) (unknown) (no date) (unknown) (unknown) WBC (4.5-11.0) X103/uL (units unknown) (unknown) (unknown) (no date) (unknown) (unknown) WBC 7.6 (4.5-11.0) X103/uL (units unknown) (unknown) (unknown) (no date) (unknown) (unknown) Xarelto 20 mg Tablet (units unknown) (unknown) (unknown) (no date) (unknown) (unknown) [Embedded Image Not Available] (units unknown) (unknown) (unknown) (no date) (unknown) (unknown) alcohol intake frequency: 0-2 drinks per day (units unknown) (unknown) (unknown) (no date) (unknown) (unknown) alcohol intake: current (units unknown) (unknown) (unknown) (no date) (unknown) (unknown) and below (units unknown) (unknown) (unknown) (no date) (unknown) (unknown) and he seems a little gone so CT abdomen pelvis was obtained. Patient has dark (units unknown) (unknown) (unknown) (no date) (unknown) (unknown) bimatoprost 0.01 % eye drops 1 drp ophthalmic (eye) DAILY 10/24/22 10/24/22 (units unknown) (unknown) (unknown) (no date) (unknown) (unknown) black stool present on rectal exam. Positive for Hemoccult. (units unknown) (unknown) (unknown) (no date) (unknown) (unknown) blunt his tachycardia response. Patient's family has noted a lot of weight loss (units unknown) (unknown) (unknown) (no date) (unknown) (unknown) bupropion HCl 150 mg Tablet Sustained-Release 12 Hr (units unknown) (unknown) (unknown) (no date) (unknown) (unknown) bupropion HCl 150 mg tablet,12 hr 150 mg PO BID 10/24/22 10/24/22 (units unknown) (unknown) (unknown) (no date) (unknown) (unknown) but type and screen was ordered with plan to transfuse if needed. Patient is (units unknown) (unknown) (unknown) (no date) (unknown) (unknown) capsule,extended release 24 hr (units unknown) (unknown) (unknown) (no date) (unknown) (unknown) chest pain or shortness of breath. Patient states he is not had GI bleeds in (units unknown) (unknown) (unknown) (no date) (unknown) (unknown) denies any urinary symptoms no hematuria, dysuria, urgency or frequency. Denies (units unknown) (unknown) (unknown) (no date) (unknown) (unknown) diarrhea but did have stool today. He is not had similar in the past. He (units unknown) (unknown) (unknown) (no date) (unknown) (unknown) diltiazem HCl 240 mg 240 mg PO DAILY 10/24/22 10/24/22 (units unknown) (unknown) (unknown) (no date) (unknown) (unknown) diltiazem HCl 240 mg Capsule,Extended Release 24hr (units unknown) (unknown) (unknown) (no date) (unknown) (unknown) dorzolamide 22.3 mg-timolol 6.8 1 drp ophthalmic (eye) DAILY 10/24/22 10/24/22 (units unknown) (unknown) (unknown) (no date) (unknown) (unknown) dorzolamide-timolol 22.3-6.8 mg/mL Drops (units unknown) (unknown) (unknown) (no date) (unknown) (unknown) ea (units unknown) (unknown) (unknown) (no date) (unknown) (unknown) extremities (units unknown) (unknown) (unknown) (no date) (unknown) (unknown) face symmetric, moist mucous membranes (units unknown) (unknown) (unknown) (no date) (unknown) (unknown) fevers or chills. No nausea or vomiting. He denies any lightheadedness. No (units unknown) (unknown) (unknown) (no date) (unknown) (unknown) finasteride 5 mg Tablet (units unknown) (unknown) (unknown) (no date) (unknown) (unknown) finasteride 5 mg tablet 5 mg PO DAILY 10/24/22 10/24/22 (units unknown) (unknown) (unknown) (no date) (unknown) (unknown) fluids and case discussed with Dr. Altman, general surgery. (units unknown) (unknown) (unknown) (no date) (unknown) (unknown) gabapentin 400 mg capsule 400 mg PO TID #30 caps 12/04/22 (units unknown) (unknown) (unknown) (no date) (unknown) (unknown) gabapentin 400 mg capsule (units unknown) (unknown) (unknown) (no date) (unknown) (unknown) gallops. No JVD. No swelling bilateral lower extremities. (units unknown) (unknown) (unknown) (no date) (unknown) (unknown) guarding or rebound, rigidity, no mass, patient has a large amount of red and (units unknown) (unknown) (unknown) (no date) (unknown) (unknown) has had a significant decrease in his weight loss over the past several months. (units unknown) (unknown) (unknown) (no date) (unknown) (unknown) him up from [facility] who rehab today to take him home. He notes that he has a is (units unknown) (unknown) (unknown) (no date) (unknown) (unknown) his leg pain and this significantly improved his symptoms. No tobacco, alcohol (units unknown) (unknown) (unknown) (no date) (unknown) (unknown) household members: none and other (units unknown) (unknown) (unknown) (no date) (unknown) (unknown) hypotensive he states this is his normal blood pressure, on visits in December he (units unknown) (unknown) (unknown) (no date) (unknown) (unknown) intact (units unknown) (unknown) (unknown) (no date) (unknown) (unknown) it was more dark blood and not bright red. He denies abdominal back or flank (units unknown) (unknown) (unknown) (no date) (unknown) (unknown) last night everything was fine he had a very dark bloody stool today. He states (units unknown) (unknown) (unknown) (no date) (unknown) (unknown) leave on most painful area for up to 12 hrs (units unknown) (unknown) (unknown) (no date) (unknown) (unknown) lidocaine 5 % adhesive patch,medicated (units unknown) (unknown) (unknown) (no date) (unknown) (unknown) lidocaine 5 % topical patch 1 patch topical DAILY PRN pain #30 12/04/22 (units unknown) (unknown) (unknown) (no date) (unknown) (unknown) mg/mL eye drops (units unknown) (unknown) (unknown) (no date) (unknown) (unknown) must administer with evening meal (units unknown) (unknown) (unknown) (no date) (unknown) (unknown) normal LFTs and electrolytes. INR is 1.7. Patient is not currently symptomatic (units unknown) (unknown) (unknown) (no date) (unknown) (unknown) not tachycardic accept for initially 98-100 but is on diltiazem which might (units unknown) (unknown) (unknown) (no date) (unknown) (unknown) omeprazole 20 mg Capsule,Delayed Release(Dr/Ec) (units unknown) (unknown) (unknown) (no date) (unknown) (unknown) omeprazole 20 mg capsule,delayed 20 mg PO DAILY 10/24/22 10/24/22 (units unknown) (unknown) (unknown) (no date) (unknown) (unknown) or illicit. No known drug allergies. Dr. Booth is his primary care physician. (units unknown) (unknown) (unknown) (no date) (unknown) (unknown) paced but otherwise no other ST segments noted. (units unknown) (unknown) (unknown) (no date) (unknown) (unknown) pain. He denies any rectal pain. States he has not been having frequent (units unknown) (unknown) (unknown) (no date) (unknown) (unknown) recent bone that had injection in significant improvement of his pain and (units unknown) (unknown) (unknown) (no date) (unknown) (unknown) red along with blackish discolored stool so Protonix 80 mg was ordered, gentle (units unknown) (unknown) (unknown) (no date) (unknown) (unknown) release (units unknown) (unknown) (unknown) (no date) (unknown) (unknown) right eye (units unknown) (unknown) (unknown) (no date) (unknown) (unknown) rivaroxaban 20 mg tablet (Xarelto) 20 mg PO QPM 10/24/22 10/24/22 (units unknown) (unknown) (unknown) (no date) (unknown) (unknown) setting up home health care for the patient as well. Son also notes the patient (units unknown) (unknown) (unknown) (no date) (unknown) (unknown) sustained-release (units unknown) (unknown) (unknown) (no date) (unknown) (unknown) tachypnea or accessory muscle use. (units unknown) (unknown) (unknown) (no date) (unknown) (unknown) tamsulosin 0.4 mg Capsule (units unknown) (unknown) (unknown) (no date) (unknown) (unknown) tamsulosin 0.4 mg capsule 0.4 mg PO BEDTIME 10/24/22 10/24/22 (units unknown) (unknown) (unknown) (no date) (unknown) (unknown) the past. Patient denies any surgeries he states he did have an injection for (units unknown) (unknown) (unknown) (no date) (unknown) (unknown) topical ointment (units unknown) (unknown) (unknown) (no date) (unknown) (unknown) tramadol 50 mg tablet 50 mg PO Q8H PRN pain #10 tabs 12/04/22 (units unknown) (unknown) (unknown) (no date) (unknown) (unknown) tramadol 50 mg tablet 50 mg PO Q8H PRN pain #10 tabs 12/25/22 (units unknown) (unknown) (unknown) (no date) (unknown) (unknown) tramadol 50 mg tablet (units unknown) (unknown) (unknown) (no date) (unknown) (unknown) triamcinolone acetonide 0.1 % 1 applic topical DAILY PRN Dry Skin 10/24/22 (units unknown) (unknown) (unknown) (no date) (unknown) (unknown) triamcinolone acetonide 0.1 % Ointment (units unknown) (unknown) (unknown) (no date) (unknown) (unknown) vitamin B complex (B 1 tab PO DAILY 10/24/22 10/24/22 (units unknown) (unknown) (unknown) (no date) (unknown) (unknown) vitamin B complex [B Complex-Vitamin B12] Tablet (units unknown) (unknown) (unknown) (no date) (unknown) (unknown) was 120-117, patient's son is not sure. He notes he has lost a lot of weight. (units unknown) (unknown) (unknown) (no date) (unknown) (unknown) weakness but had just been discharged from rehab for debility. Patient states (units unknown) (unknown) (unknown) (no date) (unknown) (unknown) white count but is anticoagulated on Xarelto. Creatinine is 1.05 BUN is 15, (units unknown) (unknown) Result panel 123 (unknown) (no date) (unknown) (unknown) >100/HPF (units unknown) (unknown) (unknown) (no date) (unknown) (unknown) 0-1/HPF (units unknown) (unknown) (unknown) (no date) (unknown) (unknown) 0-1/HPF (units unknown) (unknown) (unknown) (no date) (unknown) (unknown) Many (>30) (units unknown) (unknown) (unknown) (no date) (unknown) (unknown) None Seen (units unknown) (unknown) (unknown) (no date) (unknown) (unknown) Specimen Cultured (units unknown) (unknown) Result panel 124 (unknown) (no date) (unknown) (unknown) (no value) (units unknown) (unknown) (unknown) (no date) (unknown) (unknown) ([place]) (units unknown) (unknown) (unknown) (no date) (unknown) (unknown) 0.4 mg PO BEDTIME (units unknown) (unknown) (unknown) (no date) (unknown) (unknown) 10/24/22 (units unknown) (unknown) (unknown) (no date) (unknown) (unknown) [id number] (units unknown) (unknown) (unknown) (no date) (unknown) (unknown) 02/18/23 02/18/23 02/18/23 Range/Units (units unknown) (unknown) (unknown) (no date) (unknown) (unknown) 02/18/23 02/18/23 Range/Units (units unknown) (unknown) (unknown) (no date) (unknown) (unknown) 02/18/23 10:16 (units unknown) (unknown) (unknown) (no date) (unknown) (unknown) 02/18/23 10:28 (units unknown) (unknown) (unknown) (no date) (unknown) (unknown) 02/18/23 10:30 (units unknown) (unknown) (unknown) (no date) (unknown) (unknown) 02/18/23 13:24 (units unknown) (unknown) (unknown) (no date) (unknown) (unknown) 02/18/23 13:36 (units unknown) (unknown) (unknown) (no date) (unknown) (unknown) 02/18/23 (units unknown) (unknown) (unknown) (no date) (unknown) (unknown) 1 applic TOPICAL DAILY PRN (Reason: Dry Skin) (units unknown) (unknown) (unknown) (no date) (unknown) (unknown) 1 drp OPHTHALMIC (EYE) DAILY (units unknown) (unknown) (unknown) (no date) (unknown) (unknown) 1 patch topical DAILY PRN (Reason: pain) Qty: 30 0RF (units unknown) (unknown) (unknown) (no date) (unknown) (unknown) 1 tab PO DAILY (units unknown) (unknown) (unknown) (no date) (unknown) (unknown) 10:16 10:16 10:16 (units unknown) (unknown) (unknown) (no date) (unknown) (unknown) 10:21 02/18/23 (units unknown) (unknown) (unknown) (no date) (unknown) (unknown) 10:22 02/18/23 (units unknown) (unknown) (unknown) (no date) (unknown) (unknown) 10:28 13:24 (units unknown) (unknown) (unknown) (no date) (unknown) (unknown) 10:30 02/18/23 (units unknown) (unknown) (unknown) (no date) (unknown) (unknown) 10:30 (units unknown) (unknown) (unknown) (no date) (unknown) (unknown) 10:45 02/18/23 (units unknown) (unknown) (unknown) (no date) (unknown) (unknown) 10:45 (units unknown) (unknown) (unknown) (no date) (unknown) (unknown) 11:00 02/18/23 (units unknown) (unknown) (unknown) (no date) (unknown) (unknown) 11:15 02/18/23 (units unknown) (unknown) (unknown) (no date) (unknown) (unknown) 11:15 (units unknown) (unknown) (unknown) (no date) (unknown) (unknown) 11:30 02/18/23 (units unknown) (unknown) (unknown) (no date) (unknown) (unknown) 11:30 (units unknown) (unknown) (unknown) (no date) (unknown) (unknown) 11:45 02/18/23 (units unknown) (unknown) (unknown) (no date) (unknown) (unknown) 12:00 02/18/23 (units unknown) (unknown) (unknown) (no date) (unknown) (unknown) 12:00 (units unknown) (unknown) (unknown) (no date) (unknown) (unknown) 12:15 02/18/23 (units unknown) (unknown) (unknown) (no date) (unknown) (unknown) 12:15 (units unknown) (unknown) (unknown) (no date) (unknown) (unknown) 12:30 02/18/23 (units unknown) (unknown) (unknown) (no date) (unknown) (unknown) 12:45 02/18/23 (units unknown) (unknown) (unknown) (no date) (unknown) (unknown) 12:45 (units unknown) (unknown) (unknown) (no date) (unknown) (unknown) 13:00 02/18/23 (units unknown) (unknown) (unknown) (no date) (unknown) (unknown) 13:15 02/18/23 (units unknown) (unknown) (unknown) (no date) (unknown) (unknown) 13:15 (units unknown) (unknown) (unknown) (no date) (unknown) (unknown) 13:30 02/18/23 (units unknown) (unknown) (unknown) (no date) (unknown) (unknown) 13:30 (units unknown) (unknown) (unknown) (no date) (unknown) (unknown) 14:00 02/18/23 (units unknown) (unknown) (unknown) (no date) (unknown) (unknown) 14:30 (units unknown) (unknown) (unknown) (no date) (unknown) (unknown) 150 mg PO BID (units unknown) (unknown) (unknown) (no date) (unknown) (unknown) 20 mg PO DAILY (units unknown) (unknown) (unknown) (no date) (unknown) (unknown) 20 mg PO QPM (units unknown) (unknown) (unknown) (no date) (unknown) (unknown) 240 mg PO DAILY (units unknown) (unknown) (unknown) (no date) (unknown) (unknown) 400 mg PO TID Qty: 30 0RF (units unknown) (unknown) (unknown) (no date) (unknown) (unknown) 5 mg PO DAILY (units unknown) (unknown) (unknown) (no date) (unknown) (unknown) 50 mg PO Q8H PRN (Reason: pain) Qty: 10 0RF (units unknown) (unknown) (unknown) (no date) (unknown) (unknown) 87-year-old male with history of atrial fibrillation on Xarelto and diltiazem, (units unknown) (unknown) (unknown) (no date) (unknown) (unknown) ABDOMEN: Soft, nontender. Normoactive bowel sounds all 4 quadrants. No (units unknown) (unknown) (unknown) (no date) (unknown) (unknown) ALT (<50) IU/L (units unknown) (unknown) (unknown) (no date) (unknown) (unknown) ALT 28 (<50) IU/L (units unknown) (unknown) (unknown) (no date) (unknown) (unknown) APTT (26-36) SECONDS (units unknown) (unknown) (unknown) (no date) (unknown) (unknown) APTT 37 H (26-36) SECONDS (units unknown) (unknown) (unknown) (no date) (unknown) (unknown) AST (17-59) IU/L (units unknown) (unknown) (unknown) (no date) (unknown) (unknown) AST 30 (17-59) IU/L (units unknown) (unknown) (unknown) (no date) (unknown) (unknown) Age/Sex: 87 / M (units unknown) (unknown) (unknown) (no date) (unknown) (unknown) Albumin (3.5-5.0) g/dL (units unknown) (unknown) (unknown) (no date) (unknown) (unknown) Albumin 3.4 L (3.5-5.0) g/dL (units unknown) (unknown) (unknown) (no date) (unknown) (unknown) Albumin/Globulin Ratio (1.0-2.8) (units unknown) (unknown) (unknown) (no date) (unknown) (unknown) Albumin/Globulin Ratio 1.0 (1.0-2.8) (units unknown) (unknown) (unknown) (no date) (unknown) (unknown) Alkaline Phosphatase (38-126) U/L (units unknown) (unknown) (unknown) (no date) (unknown) (unknown) Alkaline Phosphatase 87 (38-126) U/L (units unknown) (unknown) (unknown) (no date) (unknown) (unknown) Allergies (units unknown) (unknown) (unknown) (no date) (unknown) (unknown) Allergy/AdvReac Type Severity Reaction Status Date / Time (units unknown) (unknown) (unknown) (no date) (unknown) (unknown) Antibody Screen Negative (units unknown) (unknown) (unknown) (no date) (unknown) (unknown) Antibody Screen (units unknown) (unknown) (unknown) (no date) (unknown) (unknown) Atrial flutter with variable AV block, occasionally ventricular paced rhythms. (units unknown) (unknown) (unknown) (no date) (unknown) (unknown) Attestation: I personally reviewed and interpreted this ECG as follows: (units unknown) (unknown) (unknown) (no date) (unknown) (unknown) BPH (benign prostatic hyperplasia) (units unknown) (unknown) (unknown) (no date) (unknown) (unknown) BUN (9-20) mg/dL (units unknown) (unknown) (unknown) (no date) (unknown) (unknown) BUN 15 (9-20) mg/dL (units unknown) (unknown) (unknown) (no date) (unknown) (unknown) BUN/Creatinine Ratio (6-22) (units unknown) (unknown) (unknown) (no date) (unknown) (unknown) BUN/Creatinine Ratio 14.3 (6-22) (units unknown) (unknown) (unknown) (no date) (unknown) (unknown) Baso # (Auto) (0-100) /uL (units unknown) (unknown) (unknown) (no date) (unknown) (unknown) Baso # (Auto) 100 (0-100) /uL (units unknown) (unknown) (unknown) (no date) (unknown) (unknown) Baso % (Auto) (0-2) % (units unknown) (unknown) (unknown) (no date) (unknown) (unknown) Baso % (Auto) 1.1 (0-2) % (units unknown) (unknown) (unknown) (no date) (unknown) (unknown) Bedside Urine Bilirubin - Negative (units unknown) (unknown) (unknown) (no date) (unknown) (unknown) Bedside Urine Glucose Negative (units unknown) (unknown) (unknown) (no date) (unknown) (unknown) Bedside Urine Ketone - Negative (units unknown) (unknown) (unknown) (no date) (unknown) (unknown) Bedside Urine Leukocytes +++ 500 (units unknown) (unknown) (unknown) (no date) (unknown) (unknown) Bedside Urine Nitrite - Negative (units unknown) (unknown) (unknown) (no date) (unknown) (unknown) Bedside Urine Occult Blood (units unknown) (unknown) (unknown) (no date) (unknown) (unknown) Bedside Urine Protein +/- 15 (units unknown) (unknown) (unknown) (no date) (unknown) (unknown) Bedside Urine Urobilinogen - Negative (units unknown) (unknown) (unknown) (no date) (unknown) (unknown) Bedside Urine pH 6 (units unknown) (unknown) (unknown) (no date) (unknown) (unknown) Blood Pressure 100/59 L (units unknown) (unknown) (unknown) (no date) (unknown) (unknown) Blood Pressure 100/66 94/59 L (units unknown) (unknown) (unknown) (no date) (unknown) (unknown) Blood Pressure 87/56 L 92/55 L (units unknown) (unknown) (unknown) (no date) (unknown) (unknown) Blood Pressure 89/53 L 98/56 L (units unknown) (unknown) (unknown) (no date) (unknown) (unknown) Blood Pressure 91/53 L (units unknown) (unknown) (unknown) (no date) (unknown) (unknown) Blood Pressure 91/61 (units unknown) (unknown) (unknown) (no date) (unknown) (unknown) Blood Pressure 93/60 02/18/23 10:21 (units unknown) (unknown) (unknown) (no date) (unknown) (unknown) Blood Pressure 93/60 88/65 L (units unknown) (unknown) (unknown) (no date) (unknown) (unknown) Blood Pressure 94/56 L (units unknown) (unknown) (unknown) (no date) (unknown) (unknown) Blood Pressure 94/60 (units unknown) (unknown) (unknown) (no date) (unknown) (unknown) Blood Pressure 98/57 L (units unknown) (unknown) (unknown) (no date) (unknown) (unknown) Blood Type B Positive (units unknown) (unknown) (unknown) (no date) (unknown) (unknown) Blood Type (units unknown) (unknown) (unknown) (no date) (unknown) (unknown) CARDIOVASCULAR: Irregularly irregular rate and rhythm without murmurs, rubs or (units unknown) (unknown) (unknown) (no date) (unknown) (unknown) CT abdomen pelvis w con Stat (units unknown) (unknown) (unknown) (no date) (unknown) (unknown) Calcium (8.4-10.2) mg/dL (units unknown) (unknown) (unknown) (no date) (unknown) (unknown) Calcium 8.7 (8.4-10.2) mg/dL (units unknown) (unknown) (unknown) (no date) (unknown) (unknown) Carbon Dioxide (22-32) mmol/L (units unknown) (unknown) (unknown) (no date) (unknown) (unknown) Carbon Dioxide 25 (22-32) mmol/L (units unknown) (unknown) (unknown) (no date) (unknown) (unknown) Chief complaint: GI Bleed (units unknown) (unknown) (unknown) (no date) (unknown) (unknown) Chloride (98-107) mmol/L (units unknown) (unknown) (unknown) (no date) (unknown) (unknown) Chloride 107 (98-107) mmol/L (units unknown) (unknown) (unknown) (no date) (unknown) (unknown) Chronic anticoagulation (units unknown) (unknown) (unknown) (no date) (unknown) (unknown) Clinical Impression: (units unknown) (unknown) (unknown) (no date) (unknown) (unknown) Complete Blood Count AUTO DIFF Stat (units unknown) (unknown) (unknown) (no date) (unknown) (unknown) Complex-Vitamin B12 tablet) (units unknown) (unknown) (unknown) (no date) (unknown) (unknown) Comprehensive Metabolic Panel Stat (units unknown) (unknown) (unknown) (no date) (unknown) (unknown) Course (units unknown) (unknown) (unknown) (no date) (unknown) (unknown) Creatinine (0.66-1.25) mg/dL (units unknown) (unknown) (unknown) (no date) (unknown) (unknown) Creatinine 1.05 (0.66-1.25) mg/dL (units unknown) (unknown) (unknown) (no date) (unknown) (unknown) : 1935 Acct:[id number] (units unknown) (unknown) (unknown) (no date) (unknown) (unknown) Date of Service: 02/18/23 (units unknown) (unknown) (unknown) (no date) (unknown) (unknown) Departure (units unknown) (unknown) (unknown) (no date) (unknown) (unknown) Discharge Plan (units unknown) (unknown) (unknown) (no date) (unknown) (unknown) Discontinued Medications (units unknown) (unknown) (unknown) (no date) (unknown) (unknown) Documented By: [facility] (units unknown) (unknown) (unknown) (no date) (unknown) (unknown) Dr. Santana, hospitalist (units unknown) (unknown) (unknown) (no date) (unknown) (unknown) ECG Data (units unknown) (unknown) (unknown) (no date) (unknown) (unknown) ED Orders (units unknown) (unknown) (unknown) (no date) (unknown) (unknown) EKG-12 Lead Stat (units unknown) (unknown) (unknown) (no date) (unknown) (unknown) ER Physician: Natalie Hernandez D.O. (units unknown) (unknown) (unknown) (no date) (unknown) (unknown) EXTREMITIES: Normal range of motion, no clubbing or edema. Neurovascularly (units unknown) (unknown) (unknown) (no date) (unknown) (unknown) Emergency Report (units unknown) (unknown) (unknown) (no date) (unknown) (unknown) Eos # (Auto) (0-450) /uL (units unknown) (unknown) (unknown) (no date) (unknown) (unknown) Eos # (Auto) 100 (0-450) /uL (units unknown) (unknown) (unknown) (no date) (unknown) (unknown) Eos % (Auto) (2-4) % (units unknown) (unknown) (unknown) (no date) (unknown) (unknown) Eos % (Auto) 1.2 L (2-4) % (units unknown) (unknown) (unknown) (no date) (unknown) (unknown) Esterase (units unknown) (unknown) (unknown) (no date) (unknown) (unknown) Estimated GFR > 60 (>60) mL/min (units unknown) (unknown) (unknown) (no date) (unknown) (unknown) Estimated GFR (>60) mL/min (units unknown) (unknown) (unknown) (no date) (unknown) (unknown) Exam Narrative: (units unknown) (unknown) (unknown) (no date) (unknown) (unknown) Exam (units unknown) (unknown) (unknown) (no date) (unknown) (unknown) Family History (units unknown) (unknown) (unknown) (no date) (unknown) (unknown) Father No problems noted. (units unknown) (unknown) (unknown) (no date) (unknown) (unknown) GENERAL: Alert and oriented x three, mild distress. (units unknown) (unknown) (unknown) (no date) (unknown) (unknown) GI bleed (units unknown) (unknown) (unknown) (no date) (unknown) (unknown) : No CVA tenderness (units unknown) (unknown) (unknown) (no date) (unknown) (unknown) General (units unknown) (unknown) (unknown) (no date) (unknown) (unknown) Globulin (1.7-4.1) g/dL (units unknown) (unknown) (unknown) (no date) (unknown) (unknown) Globulin 3.4 (1.7-4.1) g/dL (units unknown) (unknown) (unknown) (no date) (unknown) (unknown) Glucose (80-110) mg/dL (units unknown) (unknown) (unknown) (no date) (unknown) (unknown) Glucose 136 H (80-110) mg/dL (units unknown) (unknown) (unknown) (no date) (unknown) (unknown) HEENT: Head normocephalic, atraumatic, EOMI, pale conjunctiva. Pupils reactive, (units unknown) (unknown) (unknown) (no date) (unknown) (unknown) HPI - GI Bleed (units unknown) (unknown) (unknown) (no date) (unknown) (unknown) HPI Narrative: (units unknown) (unknown) (unknown) (no date) (unknown) (unknown) Hct (41-53) % (units unknown) (unknown) (unknown) (no date) (unknown) (unknown) Hct 35.6 L (41-53) % (units unknown) (unknown) (unknown) (no date) (unknown) (unknown) He has been using a walker and wheelchair intermittently and his son was picking (units unknown) (unknown) (unknown) (no date) (unknown) (unknown) Hemoglobin is 11.8 he was 13.6 on October 25, 2022 normal platelets today normal (units unknown) (unknown) (unknown) (no date) (unknown) (unknown) Hgb (13.5-17.5) g/dL (units unknown) (unknown) (unknown) (no date) (unknown) (unknown) Hgb 11.8 L (13.5-17.5) g/dL (units unknown) (unknown) (unknown) (no date) (unknown) (unknown) History of Present Illness (units unknown) (unknown) (unknown) (no date) (unknown) (unknown) History of permanent cardiac pacemaker placement (units unknown) (unknown) (unknown) (no date) (unknown) (unknown) Home Medications (units unknown) (unknown) (unknown) (no date) (unknown) (unknown) INR (0.9-1.3) (units unknown) (unknown) (unknown) (no date) (unknown) (unknown) INR 1.7 H (0.9-1.3) (units unknown) (unknown) (unknown) (no date) (unknown) (unknown) Initial Vital Signs (units unknown) (unknown) (unknown) (no date) (unknown) (unknown) Initial Vital Signs: (units unknown) (unknown) (unknown) (no date) (unknown) (unknown) Interpretation: (units unknown) (unknown) (unknown) (no date) (unknown) (unknown) [address] [address] (units unknown) (unknown) (unknown) (no date) (unknown) (unknown) Lab Data (units unknown) (unknown) (unknown) (no date) (unknown) (unknown) Lab Results (units unknown) (unknown) (unknown) (no date) (unknown) (unknown) Labs: (units unknown) (unknown) (unknown) (no date) (unknown) (unknown) Last Admin: 02/18/23 11:36 Dose: 80 mg (units unknown) (unknown) (unknown) (no date) (unknown) (unknown) Last Admin: 02/18/23 14:06 Dose: 150 mls/hr (units unknown) (unknown) (unknown) (no date) (unknown) (unknown) Limitations: no limitations (units unknown) (unknown) (unknown) (no date) (unknown) (unknown) [place] 0.01 % Drops (units unknown) (unknown) (unknown) (no date) (unknown) (unknown) Lymph # (Auto) (7236-7061) /uL (units unknown) (unknown) (unknown) (no date) (unknown) (unknown) Lymph # (Auto) 1100 (7484-8390) /uL (units unknown) (unknown) (unknown) (no date) (unknown) (unknown) Lymph % (Auto) (25-40) % (units unknown) (unknown) (unknown) (no date) (unknown) (unknown) Lymph % (Auto) 15.0 L (25-40) % (units unknown) (unknown) (unknown) (no date) (unknown) (unknown) MCH (26-34) PG (units unknown) (unknown) (unknown) (no date) (unknown) (unknown) MCH 31.3 (26-34) PG (units unknown) (unknown) (unknown) (no date) (unknown) (unknown) MCHC (30-36) % (units unknown) (unknown) (unknown) (no date) (unknown) (unknown) MCHC 33.1 (30-36) % (units unknown) (unknown) (unknown) (no date) (unknown) (unknown) MCV (80-100) fL (units unknown) (unknown) (unknown) (no date) (unknown) (unknown) MCV 94.6 (80-100) fL (units unknown) (unknown) (unknown) (no date) (unknown) (unknown) MDM - GI Bleed (units unknown) (unknown) (unknown) (no date) (unknown) (unknown) MDM Narrative (units unknown) (unknown) (unknown) (no date) (unknown) (unknown) Medical History (units unknown) (unknown) (unknown) (no date) (unknown) (unknown) Medical decision making narrative: (units unknown) (unknown) (unknown) (no date) (unknown) (unknown) Medication Instructions Recorded Confirmed (units unknown) (unknown) (unknown) (no date) (unknown) (unknown) Medication Instructions Recorded (units unknown) (unknown) (unknown) (no date) (unknown) (unknown) Miscellaneous,Doctor , MD [Primary Care Provider] (units unknown) (unknown) (unknown) (no date) (unknown) (unknown) Mode of arrival: EMS (units unknown) (unknown) (unknown) (no date) (unknown) (unknown) [place] # (Auto) (0-900) /uL (units unknown) (unknown) (unknown) (no date) (unknown) (unknown) [place] # (Auto) 600 (0-900) /uL (units unknown) (unknown) (unknown) (no date) (unknown) (unknown) [place] % (Auto) (3-14) % (units unknown) (unknown) (unknown) (no date) (unknown) (unknown) [place] % (Auto) 8.3 (3-14) % (units unknown) (unknown) (unknown) (no date) (unknown) (unknown) Mother Cancer (units unknown) (unknown) (unknown) (no date) (unknown) (unknown) NECK: Supple, full range of motion (units unknown) (unknown) (unknown) (no date) (unknown) (unknown) NEUROLOGICAL: Cranial nerves II through XII grossly intact. Moving all (units unknown) (unknown) (unknown) (no date) (unknown) (unknown) Narrative (units unknown) (unknown) (unknown) (no date) (unknown) (unknown) Neut # (Auto) (7683-0716) /uL (units unknown) (unknown) (unknown) (no date) (unknown) (unknown) Neut # (Auto) 5600 (8145-6132) /uL (units unknown) (unknown) (unknown) (no date) (unknown) (unknown) Neut % (Auto) (50-75) % (units unknown) (unknown) (unknown) (no date) (unknown) (unknown) Neut % (Auto) 74.4 (50-75) % (units unknown) (unknown) (unknown) (no date) (unknown) (unknown) No Action (units unknown) (unknown) (unknown) (no date) (unknown) (unknown) No Known Drug Allergies Allergy Verified 02/18/23 10:27 (units unknown) (unknown) (unknown) (no date) (unknown) (unknown) Ondansetron HCl (Ondansetron 4 Mg/2 Ml Inj) 4 mg IV NOW PRN (units unknown) (unknown) (unknown) (no date) (unknown) (unknown) Ordered: (units unknown) (unknown) (unknown) (no date) (unknown) (unknown) Orders (units unknown) (unknown) (unknown) (no date) (unknown) (unknown) Osteoporosis (units unknown) (unknown) (unknown) (no date) (unknown) (unknown) Oxygen Delivery Method Room Air 02/18/23 10:21 (units unknown) (unknown) (unknown) (no date) (unknown) (unknown) Oxygen Delivery Method Room Air (units unknown) (unknown) (unknown) (no date) (unknown) (unknown) Oxygen Delivery Method (units unknown) (unknown) (unknown) (no date) (unknown) (unknown) PRN Reason: Nausea And Vomiting (units unknown) (unknown) (unknown) (no date) (unknown) (unknown) PT (10.1-12.7) SECONDS (units unknown) (unknown) (unknown) (no date) (unknown) (unknown) PT 20.0 H (10.1-12.7) SECONDS (units unknown) (unknown) (unknown) (no date) (unknown) (unknown) PTT Partial Thromboplastin Rodriguez Stat (units unknown) (unknown) (unknown) (no date) (unknown) (unknown) Pantoprazole Sodium (Pantoprazole 40 Mg Vial) 80 mg IV NOW ONE (units unknown) (unknown) (unknown) (no date) (unknown) (unknown) Patient History (units unknown) (unknown) (unknown) (no date) (unknown) (unknown) Patient is open to blood transfusion. (units unknown) (unknown) (unknown) (no date) (unknown) (unknown) Patient: Jonny Neely MR#: [id number] (units unknown) (unknown) (unknown) (no date) (unknown) (unknown) Plt Count (150-400) X103/uL (units unknown) (unknown) (unknown) (no date) (unknown) (unknown) Plt Count 183 (150-400) X103/uL (units unknown) (unknown) (unknown) (no date) (unknown) (unknown) Point of Care Testing (units unknown) (unknown) (unknown) (no date) (unknown) (unknown) Potassium (3.4-5.1) mmol/L (units unknown) (unknown) (unknown) (no date) (unknown) (unknown) Potassium 3.6 (3.4-5.1) mmol/L (units unknown) (unknown) (unknown) (no date) (unknown) (unknown) Prescriptions: (units unknown) (unknown) (unknown) (no date) (unknown) (unknown) Previous Rx's (units unknown) (unknown) (unknown) (no date) (unknown) (unknown) Prior ECG tracings: available for review (units unknown) (unknown) (unknown) (no date) (unknown) (unknown) Prothrombin Time INR Stat (units unknown) (unknown) (unknown) (no date) (unknown) (unknown) Pulse Oximetry 96 (units unknown) (unknown) (unknown) (no date) (unknown) (unknown) Pulse Oximetry 97 96 (units unknown) (unknown) (unknown) (no date) (unknown) (unknown) Pulse Oximetry 97 97 (units unknown) (unknown) (unknown) (no date) (unknown) (unknown) Pulse Oximetry 97 (units unknown) (unknown) (unknown) (no date) (unknown) (unknown) Pulse Oximetry 98 02/18/23 10:21 (units unknown) (unknown) (unknown) (no date) (unknown) (unknown) Pulse Oximetry 98 97 (units unknown) (unknown) (unknown) (no date) (unknown) (unknown) Pulse Oximetry 98 98 (units unknown) (unknown) (unknown) (no date) (unknown) (unknown) Pulse Oximetry 99 98 (units unknown) (unknown) (unknown) (no date) (unknown) (unknown) Pulse Oximetry 99 (units unknown) (unknown) (unknown) (no date) (unknown) (unknown) Pulse Rate 101 H 81 (units unknown) (unknown) (unknown) (no date) (unknown) (unknown) Pulse Rate 72 69 (units unknown) (unknown) (unknown) (no date) (unknown) (unknown) Pulse Rate 74 (units unknown) (unknown) (unknown) (no date) (unknown) (unknown) Pulse Rate 75 (units unknown) (unknown) (unknown) (no date) (unknown) (unknown) Pulse Rate 77 (units unknown) (unknown) (unknown) (no date) (unknown) (unknown) Pulse Rate 78 74 (units unknown) (unknown) (unknown) (no date) (unknown) (unknown) Pulse Rate 80 76 (units unknown) (unknown) (unknown) (no date) (unknown) (unknown) Pulse Rate 80 (units unknown) (unknown) (unknown) (no date) (unknown) (unknown) Pulse Rate 81 02/18/23 10:21 (units unknown) (unknown) (unknown) (no date) (unknown) (unknown) Pulse Rate 81 73 (units unknown) (unknown) (unknown) (no date) (unknown) (unknown) Pulse Rate 81 98 H (units unknown) (unknown) (unknown) (no date) (unknown) (unknown) RBC (4.5-5.9) X106/uL (units unknown) (unknown) (unknown) (no date) (unknown) (unknown) RBC 3.76 L (4.5-5.9) X106/uL (units unknown) (unknown) (unknown) (no date) (unknown) (unknown) RDW (11.6-14.8) % (units unknown) (unknown) (unknown) (no date) (unknown) (unknown) RDW 16.6 H (11.6-14.8) % (units unknown) (unknown) (unknown) (no date) (unknown) (unknown) RESPIRATORY: Breath sounds equal bilaterally, no wheezes rales or rhonchi. No (units unknown) (unknown) (unknown) (no date) (unknown) (unknown) ROS Unobtainable: All systems reviewed + are unremarkable except as noted in HPI (units unknown) (unknown) (unknown) (no date) (unknown) (unknown) Referrals: (units unknown) (unknown) (unknown) (no date) (unknown) (unknown) Related Data (units unknown) (unknown) (unknown) (no date) (unknown) (unknown) Respiratory Rate 12 15 (units unknown) (unknown) (unknown) (no date) (unknown) (unknown) Respiratory Rate 13 (units unknown) (unknown) (unknown) (no date) (unknown) (unknown) Respiratory Rate 15 (units unknown) (unknown) (unknown) (no date) (unknown) (unknown) Respiratory Rate 16 02/18/23 10:21 (units unknown) (unknown) (unknown) (no date) (unknown) (unknown) Respiratory Rate 16 15 (units unknown) (unknown) (unknown) (no date) (unknown) (unknown) Respiratory Rate 18 13 (units unknown) (unknown) (unknown) (no date) (unknown) (unknown) Respiratory Rate 20 19 (units unknown) (unknown) (unknown) (no date) (unknown) (unknown) Respiratory Rate 21 14 (units unknown) (unknown) (unknown) (no date) (unknown) (unknown) Respiratory Rate 21 16 (units unknown) (unknown) (unknown) (no date) (unknown) (unknown) Respiratory Rate 22 18 (units unknown) (unknown) (unknown) (no date) (unknown) (unknown) Respiratory Rate 22 (units unknown) (unknown) (unknown) (no date) (unknown) (unknown) Review of Systems (units unknown) (unknown) (unknown) (no date) (unknown) (unknown) Right bundle. Rate of 83 QRS of 124 QTC of 434. Patient has prior EKG is not (units unknown) (unknown) (unknown) (no date) (unknown) (unknown) Rx Instructions: (units unknown) (unknown) (unknown) (no date) (unknown) (unknown) SKIN: Warm, dry, no petechiae, no rashes or lesions. (units unknown) (unknown) (unknown) (no date) (unknown) (unknown) Signed By: (units unknown) (unknown) (unknown) (no date) (unknown) (unknown) Smoking Status: Never smoker (units unknown) (unknown) (unknown) (no date) (unknown) (unknown) Social History (units unknown) (unknown) (unknown) (no date) (unknown) (unknown) Sodium (137-145) mmol/L (units unknown) (unknown) (unknown) (no date) (unknown) (unknown) Sodium 139 (137-145) mmol/L (units unknown) (unknown) (unknown) (no date) (unknown) (unknown) Sodium Chloride (Normal Saline 0.9%) 1,000 mls @ 150 mls/hr IV CONT KEON (units unknown) (unknown) (unknown) (no date) (unknown) (unknown) Source: patient and EMS (units unknown) (unknown) (unknown) (no date) (unknown) (unknown) Stated complaint: Possible GI bleed (units unknown) (unknown) (unknown) (no date) (unknown) (unknown) Stool Occult Blood Positive (units unknown) (unknown) (unknown) (no date) (unknown) (unknown) Stop: 02/18/23 10:19 (units unknown) (unknown) (unknown) (no date) (unknown) (unknown) Substance Use Type: does not use (units unknown) (unknown) (unknown) (no date) (unknown) (unknown) Surgical History (units unknown) (unknown) (unknown) (no date) (unknown) (unknown) Temperature 98.7 F 02/18/23 10:21 (units unknown) (unknown) (unknown) (no date) (unknown) (unknown) Temperature 98.7 F (units unknown) (unknown) (unknown) (no date) (unknown) (unknown) Temperature (units unknown) (unknown) (unknown) (no date) (unknown) (unknown) This is a 87-year-old male who presents with potential GI bleed. Patient is (units unknown) (unknown) (unknown) (no date) (unknown) (unknown) Time Seen by Provider: 02/18/23 12:57 (units unknown) (unknown) (unknown) (no date) (unknown) (unknown) Total Bilirubin (0.2-1.3) mg/dL (units unknown) (unknown) (unknown) (no date) (unknown) (unknown) Total Bilirubin 0.6 (0.2-1.3) mg/dL (units unknown) (unknown) (unknown) (no date) (unknown) (unknown) Total Protein (6.3-8.2) g/dL (units unknown) (unknown) (unknown) (no date) (unknown) (unknown) Total Protein 6.8 (6.3-8.2) g/dL (units unknown) (unknown) (unknown) (no date) (unknown) (unknown) Type and Screen Stat (units unknown) (unknown) (unknown) (no date) (unknown) (unknown) Ur Culture Indicated? Specimen cultured (units unknown) (unknown) (unknown) (no date) (unknown) (unknown) Ur Culture Indicated? (units unknown) (unknown) (unknown) (no date) (unknown) (unknown) Ur Squamous Epith Cells (0-5/HPF) (units unknown) (unknown) (unknown) (no date) (unknown) (unknown) Ur Squamous Epith Cells None seen (0-5/HPF) (units unknown) (unknown) (unknown) (no date) (unknown) (unknown) Urine Bacteria (None) (units unknown) (unknown) (unknown) (no date) (unknown) (unknown) Urine Bacteria Many (>30) H (None) (units unknown) (unknown) (unknown) (no date) (unknown) (unknown) Urine Culture Stat (units unknown) (unknown) (unknown) (no date) (unknown) (unknown) Urine Dip (units unknown) (unknown) (unknown) (no date) (unknown) (unknown) Urine Microscopic Stat (units unknown) (unknown) (unknown) (no date) (unknown) (unknown) Urine RBC (0-5/HPF) (units unknown) (unknown) (unknown) (no date) (unknown) (unknown) Urine RBC 0-1/hpf (0-5/HPF) (units unknown) (unknown) (unknown) (no date) (unknown) (unknown) Urine Specific [place] 1.015 (units unknown) (unknown) (unknown) (no date) (unknown) (unknown) Urine WBC >100/hpf H (0-5/HPF) (units unknown) (unknown) (unknown) (no date) (unknown) (unknown) Urine WBC (0-5/HPF) (units unknown) (unknown) (unknown) (no date) (unknown) (unknown) Vital Signs - 8 hr (units unknown) (unknown) (unknown) (no date) (unknown) (unknown) Vital Signs (units unknown) (unknown) (unknown) (no date) (unknown) (unknown) Vital signs: (units unknown) (unknown) (unknown) (no date) (unknown) (unknown) WBC (4.5-11.0) X103/uL (units unknown) (unknown) (unknown) (no date) (unknown) (unknown) WBC 7.6 (4.5-11.0) X103/uL (units unknown) (unknown) (unknown) (no date) (unknown) (unknown) Xarelto 20 mg Tablet (units unknown) (unknown) (unknown) (no date) (unknown) (unknown) [Embedded Image Not Available] (units unknown) (unknown) (unknown) (no date) (unknown) (unknown) alcohol intake frequency: 0-2 drinks per day (units unknown) (unknown) (unknown) (no date) (unknown) (unknown) alcohol intake: current (units unknown) (unknown) (unknown) (no date) (unknown) (unknown) and below (units unknown) (unknown) (unknown) (no date) (unknown) (unknown) and he seems a little gone so CT abdomen pelvis was obtained. Patient has dark (units unknown) (unknown) (unknown) (no date) (unknown) (unknown) bimatoprost 0.01 % eye drops 1 drp ophthalmic (eye) DAILY 10/24/22 10/24/22 (units unknown) (unknown) (unknown) (no date) (unknown) (unknown) black stool present on rectal exam. Positive for Hemoccult. (units unknown) (unknown) (unknown) (no date) (unknown) (unknown) blunt his tachycardia response. Patient's family has noted a lot of weight loss (units unknown) (unknown) (unknown) (no date) (unknown) (unknown) bupropion HCl 150 mg Tablet Sustained-Release 12 Hr (units unknown) (unknown) (unknown) (no date) (unknown) (unknown) bupropion HCl 150 mg tablet,12 hr 150 mg PO BID 10/24/22 10/24/22 (units unknown) (unknown) (unknown) (no date) (unknown) (unknown) but type and screen was ordered with plan to transfuse if needed. Patient is (units unknown) (unknown) (unknown) (no date) (unknown) (unknown) capsule,extended release 24 hr (units unknown) (unknown) (unknown) (no date) (unknown) (unknown) chest pain or shortness of breath. Patient states he is not had GI bleeds in (units unknown) (unknown) (unknown) (no date) (unknown) (unknown) denies any urinary symptoms no hematuria, dysuria, urgency or frequency. Denies (units unknown) (unknown) (unknown) (no date) (unknown) (unknown) diarrhea but did have stool today. He is not had similar in the past. He (units unknown) (unknown) (unknown) (no date) (unknown) (unknown) diltiazem HCl 240 mg 240 mg PO DAILY 10/24/22 10/24/22 (units unknown) (unknown) (unknown) (no date) (unknown) (unknown) diltiazem HCl 240 mg Capsule,Extended Release 24hr (units unknown) (unknown) (unknown) (no date) (unknown) (unknown) dorzolamide 22.3 mg-timolol 6.8 1 drp ophthalmic (eye) DAILY 10/24/22 10/24/22 (units unknown) (unknown) (unknown) (no date) (unknown) (unknown) dorzolamide-timolol 22.3-6.8 mg/mL Drops (units unknown) (unknown) (unknown) (no date) (unknown) (unknown) ea (units unknown) (unknown) (unknown) (no date) (unknown) (unknown) extremities (units unknown) (unknown) (unknown) (no date) (unknown) (unknown) face symmetric, moist mucous membranes (units unknown) (unknown) (unknown) (no date) (unknown) (unknown) fevers or chills. No nausea or vomiting. He denies any lightheadedness. No (units unknown) (unknown) (unknown) (no date) (unknown) (unknown) finasteride 5 mg Tablet (units unknown) (unknown) (unknown) (no date) (unknown) (unknown) finasteride 5 mg tablet 5 mg PO DAILY 10/24/22 10/24/22 (units unknown) (unknown) (unknown) (no date) (unknown) (unknown) fluids and case discussed with Dr. Altman, general surgery. (units unknown) (unknown) (unknown) (no date) (unknown) (unknown) gabapentin 400 mg capsule 400 mg PO TID #30 caps 12/04/22 (units unknown) (unknown) (unknown) (no date) (unknown) (unknown) gabapentin 400 mg capsule (units unknown) (unknown) (unknown) (no date) (unknown) (unknown) gallops. No JVD. No swelling bilateral lower extremities. (units unknown) (unknown) (unknown) (no date) (unknown) (unknown) guarding or rebound, rigidity, no mass, patient has a large amount of red and (units unknown) (unknown) (unknown) (no date) (unknown) (unknown) has had a significant decrease in his weight loss over the past several months. (units unknown) (unknown) (unknown) (no date) (unknown) (unknown) him up from [facility] who rehab today to take him home. He notes that he has a is (units unknown) (unknown) (unknown) (no date) (unknown) (unknown) his leg pain and this significantly improved his symptoms. No tobacco, alcohol (units unknown) (unknown) (unknown) (no date) (unknown) (unknown) household members: none and other (units unknown) (unknown) (unknown) (no date) (unknown) (unknown) hypotensive he states this is his normal blood pressure, on visits in December he (units unknown) (unknown) (unknown) (no date) (unknown) (unknown) intact (units unknown) (unknown) (unknown) (no date) (unknown) (unknown) it was more dark blood and not bright red. He denies abdominal back or flank (units unknown) (unknown) (unknown) (no date) (unknown) (unknown) last night everything was fine he had a very dark bloody stool today. He states (units unknown) (unknown) (unknown) (no date) (unknown) (unknown) leave on most painful area for up to 12 hrs (units unknown) (unknown) (unknown) (no date) (unknown) (unknown) lidocaine 5 % adhesive patch,medicated (units unknown) (unknown) (unknown) (no date) (unknown) (unknown) lidocaine 5 % topical patch 1 patch topical DAILY PRN pain #30 12/04/22 (units unknown) (unknown) (unknown) (no date) (unknown) (unknown) mg/mL eye drops (units unknown) (unknown) (unknown) (no date) (unknown) (unknown) must administer with evening meal (units unknown) (unknown) (unknown) (no date) (unknown) (unknown) normal LFTs and electrolytes. INR is 1.7. Patient is not currently symptomatic (units unknown) (unknown) (unknown) (no date) (unknown) (unknown) not tachycardic accept for initially 98-100 but is on diltiazem which might (units unknown) (unknown) (unknown) (no date) (unknown) (unknown) omeprazole 20 mg Capsule,Delayed Release(Dr/Ec) (units unknown) (unknown) (unknown) (no date) (unknown) (unknown) omeprazole 20 mg capsule,delayed 20 mg PO DAILY 10/24/22 10/24/22 (units unknown) (unknown) (unknown) (no date) (unknown) (unknown) or illicit. No known drug allergies. Dr. Booth is his primary care physician. (units unknown) (unknown) (unknown) (no date) (unknown) (unknown) paced but otherwise no other ST segments noted. (units unknown) (unknown) (unknown) (no date) (unknown) (unknown) pain. He denies any rectal pain. States he has not been having frequent (units unknown) (unknown) (unknown) (no date) (unknown) (unknown) recent bone that had injection in significant improvement of his pain and (units unknown) (unknown) (unknown) (no date) (unknown) (unknown) red along with blackish discolored stool so Protonix 80 mg was ordered, gentle (units unknown) (unknown) (unknown) (no date) (unknown) (unknown) release (units unknown) (unknown) (unknown) (no date) (unknown) (unknown) right eye (units unknown) (unknown) (unknown) (no date) (unknown) (unknown) rivaroxaban 20 mg tablet (Xarelto) 20 mg PO QPM 10/24/22 10/24/22 (units unknown) (unknown) (unknown) (no date) (unknown) (unknown) setting up home health care for the patient as well. Son also notes the patient (units unknown) (unknown) (unknown) (no date) (unknown) (unknown) sustained-release (units unknown) (unknown) (unknown) (no date) (unknown) (unknown) tachypnea or accessory muscle use. (units unknown) (unknown) (unknown) (no date) (unknown) (unknown) tamsulosin 0.4 mg Capsule (units unknown) (unknown) (unknown) (no date) (unknown) (unknown) tamsulosin 0.4 mg capsule 0.4 mg PO BEDTIME 10/24/22 10/24/22 (units unknown) (unknown) (unknown) (no date) (unknown) (unknown) the past. Patient denies any surgeries he states he did have an injection for (units unknown) (unknown) (unknown) (no date) (unknown) (unknown) topical ointment (units unknown) (unknown) (unknown) (no date) (unknown) (unknown) tramadol 50 mg tablet 50 mg PO Q8H PRN pain #10 tabs 12/04/22 (units unknown) (unknown) (unknown) (no date) (unknown) (unknown) tramadol 50 mg tablet 50 mg PO Q8H PRN pain #10 tabs 12/25/22 (units unknown) (unknown) (unknown) (no date) (unknown) (unknown) tramadol 50 mg tablet (units unknown) (unknown) (unknown) (no date) (unknown) (unknown) triamcinolone acetonide 0.1 % 1 applic topical DAILY PRN Dry Skin 10/24/22 (units unknown) (unknown) (unknown) (no date) (unknown) (unknown) triamcinolone acetonide 0.1 % Ointment (units unknown) (unknown) (unknown) (no date) (unknown) (unknown) vitamin B complex (B 1 tab PO DAILY 10/24/22 10/24/22 (units unknown) (unknown) (unknown) (no date) (unknown) (unknown) vitamin B complex [B Complex-Vitamin B12] Tablet (units unknown) (unknown) (unknown) (no date) (unknown) (unknown) was 120-117, patient's son is not sure. He notes he has lost a lot of weight. (units unknown) (unknown) (unknown) (no date) (unknown) (unknown) weakness but had just been discharged from rehab for debility. Patient states (units unknown) (unknown) (unknown) (no date) (unknown) (unknown) white count but is anticoagulated on Xarelto. Creatinine is 1.05 BUN is 15, (units unknown) (unknown) Result panel 125 (unknown) (no date) (unknown) (unknown) (no value) (units unknown) (unknown) (unknown) (no date) (unknown) (unknown) ([place]) (units unknown) (unknown) (unknown) (no date) (unknown) (unknown) 0.4 mg PO BEDTIME (units unknown) (unknown) (unknown) (no date) (unknown) (unknown) 10/24/22 (units unknown) (unknown) (unknown) (no date) (unknown) (unknown) [id number] (units unknown) (unknown) (unknown) (no date) (unknown) (unknown) 02/18/23 02/18/23 02/18/23 Range/Units (units unknown) (unknown) (unknown) (no date) (unknown) (unknown) 02/18/23 02/18/23 Range/Units (units unknown) (unknown) (unknown) (no date) (unknown) (unknown) 02/18/23 10:16 (units unknown) (unknown) (unknown) (no date) (unknown) (unknown) 02/18/23 10:28 (units unknown) (unknown) (unknown) (no date) (unknown) (unknown) 02/18/23 10:30 (units unknown) (unknown) (unknown) (no date) (unknown) (unknown) 02/18/23 13:24 (units unknown) (unknown) (unknown) (no date) (unknown) (unknown) 02/18/23 13:36 (units unknown) (unknown) (unknown) (no date) (unknown) (unknown) 02/18/23 (units unknown) (unknown) (unknown) (no date) (unknown) (unknown) 1 applic TOPICAL DAILY PRN (Reason: Dry Skin) (units unknown) (unknown) (unknown) (no date) (unknown) (unknown) 1 drp OPHTHALMIC (EYE) DAILY (units unknown) (unknown) (unknown) (no date) (unknown) (unknown) 1 patch topical DAILY PRN (Reason: pain) Qty: 30 0RF (units unknown) (unknown) (unknown) (no date) (unknown) (unknown) 1 tab PO DAILY (units unknown) (unknown) (unknown) (no date) (unknown) (unknown) 10:16 10:16 10:16 (units unknown) (unknown) (unknown) (no date) (unknown) (unknown) 10:21 02/18/23 (units unknown) (unknown) (unknown) (no date) (unknown) (unknown) 10:22 02/18/23 (units unknown) (unknown) (unknown) (no date) (unknown) (unknown) 10:28 13:24 (units unknown) (unknown) (unknown) (no date) (unknown) (unknown) 10:30 02/18/23 (units unknown) (unknown) (unknown) (no date) (unknown) (unknown) 10:30 (units unknown) (unknown) (unknown) (no date) (unknown) (unknown) 10:45 02/18/23 (units unknown) (unknown) (unknown) (no date) (unknown) (unknown) 10:45 (units unknown) (unknown) (unknown) (no date) (unknown) (unknown) 11:00 02/18/23 (units unknown) (unknown) (unknown) (no date) (unknown) (unknown) 11:15 02/18/23 (units unknown) (unknown) (unknown) (no date) (unknown) (unknown) 11:15 (units unknown) (unknown) (unknown) (no date) (unknown) (unknown) 11:30 02/18/23 (units unknown) (unknown) (unknown) (no date) (unknown) (unknown) 11:30 (units unknown) (unknown) (unknown) (no date) (unknown) (unknown) 11:45 02/18/23 (units unknown) (unknown) (unknown) (no date) (unknown) (unknown) [address] [place] [address] (units unknown) (unknown) (unknown) (no date) (unknown) (unknown) 12:00 02/18/23 (units unknown) (unknown) (unknown) (no date) (unknown) (unknown) 12:00 (units unknown) (unknown) (unknown) (no date) (unknown) (unknown) 12:15 02/18/23 (units unknown) (unknown) (unknown) (no date) (unknown) (unknown) 12:15 (units unknown) (unknown) (unknown) (no date) (unknown) (unknown) 12:30 02/18/23 (units unknown) (unknown) (unknown) (no date) (unknown) (unknown) 12:45 02/18/23 (units unknown) (unknown) (unknown) (no date) (unknown) (unknown) 12:45 (units unknown) (unknown) (unknown) (no date) (unknown) (unknown) 13:00 02/18/23 (units unknown) (unknown) (unknown) (no date) (unknown) (unknown) 13:15 02/18/23 (units unknown) (unknown) (unknown) (no date) (unknown) (unknown) 13:15 (units unknown) (unknown) (unknown) (no date) (unknown) (unknown) 13:30 02/18/23 (units unknown) (unknown) (unknown) (no date) (unknown) (unknown) 13:30 (units unknown) (unknown) (unknown) (no date) (unknown) (unknown) 14:00 02/18/23 (units unknown) (unknown) (unknown) (no date) (unknown) (unknown) 14:30 (units unknown) (unknown) (unknown) (no date) (unknown) (unknown) 150 mg PO BID (units unknown) (unknown) (unknown) (no date) (unknown) (unknown) 20 mg PO DAILY (units unknown) (unknown) (unknown) (no date) (unknown) (unknown) 20 mg PO QPM (units unknown) (unknown) (unknown) (no date) (unknown) (unknown) 240 mg PO DAILY (units unknown) (unknown) (unknown) (no date) (unknown) (unknown) 400 mg PO TID Qty: 30 0RF (units unknown) (unknown) (unknown) (no date) (unknown) (unknown) 5 mg PO DAILY (units unknown) (unknown) (unknown) (no date) (unknown) (unknown) 50 mg PO Q8H PRN (Reason: pain) Qty: 10 0RF (units unknown) (unknown) (unknown) (no date) (unknown) (unknown) 87-year-old male with history of atrial fibrillation on Xarelto and diltiazem, (units unknown) (unknown) (unknown) (no date) (unknown) (unknown) ? (units unknown) (unknown) (unknown) (no date) (unknown) (unknown) ABDOMEN: Soft, nontender. Normoactive bowel sounds all 4 quadrants. No (units unknown) (unknown) (unknown) (no date) (unknown) (unknown) ABDOMEN: (units unknown) (unknown) (unknown) (no date) (unknown) (unknown) ALT (<50) IU/L (units unknown) (unknown) (unknown) (no date) (unknown) (unknown) ALT 28 (<50) IU/L (units unknown) (unknown) (unknown) (no date) (unknown) (unknown) APTT (26-36) SECONDS (units unknown) (unknown) (unknown) (no date) (unknown) (unknown) APTT 37 H (26-36) SECONDS (units unknown) (unknown) (unknown) (no date) (unknown) (unknown) AST (17-59) IU/L (units unknown) (unknown) (unknown) (no date) (unknown) (unknown) AST 30 (17-59) IU/L (units unknown) (unknown) (unknown) (no date) (unknown) (unknown) Abdomen/Pelvis CT (Signed) (units unknown) (unknown) (unknown) (no date) (unknown) (unknown) Abdominal Nodes:? No retroperitoneal or mesenteric adenopathy by size criteria.? (units unknown) (unknown) (unknown) (no date) (unknown) (unknown) Accession Number: [id number] ?? (units unknown) (unknown) (unknown) (no date) (unknown) (unknown) Acct:[id number] (units unknown) (unknown) (unknown) (no date) (unknown) (unknown) Adrenal Glands:? Unremarkable.? ? (units unknown) (unknown) (unknown) (no date) (unknown) (unknown) After the administration of intravenous contrast, axial sections acquired from (units unknown) (unknown) (unknown) (no date) (unknown) (unknown) Age/Sex: 87 / M (units unknown) (unknown) (unknown) (no date) (unknown) (unknown) Albumin (3.5-5.0) g/dL (units unknown) (unknown) (unknown) (no date) (unknown) (unknown) Albumin 3.4 L (3.5-5.0) g/dL (units unknown) (unknown) (unknown) (no date) (unknown) (unknown) Albumin/Globulin Ratio (1.0-2.8) (units unknown) (unknown) (unknown) (no date) (unknown) (unknown) Albumin/Globulin Ratio 1.0 (1.0-2.8) (units unknown) (unknown) (unknown) (no date) (unknown) (unknown) Alkaline Phosphatase (38-126) U/L (units unknown) (unknown) (unknown) (no date) (unknown) (unknown) Alkaline Phosphatase 87 (38-126) U/L (units unknown) (unknown) (unknown) (no date) (unknown) (unknown) Allergies (units unknown) (unknown) (unknown) (no date) (unknown) (unknown) Allergy/AdvReac Type Severity Reaction Status Date / Time (units unknown) (unknown) (unknown) (no date) (unknown) (unknown) [place] [address] (units unknown) (unknown) (unknown) (no date) (unknown) (unknown) Antibody Screen Negative (units unknown) (unknown) (unknown) (no date) (unknown) (unknown) Antibody Screen (units unknown) (unknown) (unknown) (no date) (unknown) (unknown) Approved by: Jl Langford M.D. on 02/18/2023 at 15:06?? (units unknown) (unknown) (unknown) (no date) (unknown) (unknown) Asks that they reach (units unknown) (unknown) (unknown) (no date) (unknown) (unknown) Atrial flutter with variable AV block, occasionally ventricular paced rhythms. (units unknown) (unknown) (unknown) (no date) (unknown) (unknown) Attestation: I personally reviewed and interpreted this ECG as follows: (units unknown) (unknown) (unknown) (no date) (unknown) (unknown) BPH (benign prostatic hyperplasia) (units unknown) (unknown) (unknown) (no date) (unknown) (unknown) BUN (9-20) mg/dL (units unknown) (unknown) (unknown) (no date) (unknown) (unknown) BUN 15 (9-20) mg/dL (units unknown) (unknown) (unknown) (no date) (unknown) (unknown) BUN/Creatinine Ratio (6-22) (units unknown) (unknown) (unknown) (no date) (unknown) (unknown) BUN/Creatinine Ratio 14.3 (6-22) (units unknown) (unknown) (unknown) (no date) (unknown) (unknown) Baso # (Auto) (0-100) /uL (units unknown) (unknown) (unknown) (no date) (unknown) (unknown) Baso # (Auto) 100 (0-100) /uL (units unknown) (unknown) (unknown) (no date) (unknown) (unknown) Baso % (Auto) (0-2) % (units unknown) (unknown) (unknown) (no date) (unknown) (unknown) Baso % (Auto) 1.1 (0-2) % (units unknown) (unknown) (unknown) (no date) (unknown) (unknown) Bedside Urine Bilirubin - Negative (units unknown) (unknown) (unknown) (no date) (unknown) (unknown) Bedside Urine Glucose Negative (units unknown) (unknown) (unknown) (no date) (unknown) (unknown) Bedside Urine Ketone - Negative (units unknown) (unknown) (unknown) (no date) (unknown) (unknown) Bedside Urine Leukocytes +++ 500 (units unknown) (unknown) (unknown) (no date) (unknown) (unknown) Bedside Urine Nitrite - Negative (units unknown) (unknown) (unknown) (no date) (unknown) (unknown) Bedside Urine Occult Blood (units unknown) (unknown) (unknown) (no date) (unknown) (unknown) Bedside Urine Protein +/- 15 (units unknown) (unknown) (unknown) (no date) (unknown) (unknown) Bedside Urine Urobilinogen - Negative (units unknown) (unknown) (unknown) (no date) (unknown) (unknown) Bedside Urine pH 6 (units unknown) (unknown) (unknown) (no date) (unknown) (unknown) Biliary ducts:? Unremarkable.? ? (units unknown) (unknown) (unknown) (no date) (unknown) (unknown) Bladder:? Unremarkable.? ? (units unknown) (unknown) (unknown) (no date) (unknown) (unknown) Blood Pressure 100/59 L (units unknown) (unknown) (unknown) (no date) (unknown) (unknown) Blood Pressure 100/66 94/59 L (units unknown) (unknown) (unknown) (no date) (unknown) (unknown) Blood Pressure 87/56 L 92/55 L (units unknown) (unknown) (unknown) (no date) (unknown) (unknown) Blood Pressure 89/53 L 98/56 L (units unknown) (unknown) (unknown) (no date) (unknown) (unknown) Blood Pressure 91/53 L (units unknown) (unknown) (unknown) (no date) (unknown) (unknown) Blood Pressure 91/61 (units unknown) (unknown) (unknown) (no date) (unknown) (unknown) Blood Pressure 93/60 02/18/23 10:21 (units unknown) (unknown) (unknown) (no date) (unknown) (unknown) Blood Pressure 93/60 88/65 L (units unknown) (unknown) (unknown) (no date) (unknown) (unknown) Blood Pressure 94/56 L (units unknown) (unknown) (unknown) (no date) (unknown) (unknown) Blood Pressure 94/60 (units unknown) (unknown) (unknown) (no date) (unknown) (unknown) Blood Pressure 98/57 L (units unknown) (unknown) (unknown) (no date) (unknown) (unknown) Blood Type B Positive (units unknown) (unknown) (unknown) (no date) (unknown) (unknown) Blood Type (units unknown) (unknown) (unknown) (no date) (unknown) (unknown) Bones:? Unremarkable.? ? (units unknown) (unknown) (unknown) (no date) (unknown) (unknown) CARDIOVASCULAR: Irregularly irregular rate and rhythm without murmurs, rubs or (units unknown) (unknown) (unknown) (no date) (unknown) (unknown) COMPARISON:[facility], CT, CT CHEST ABD PEL W CON, 10/24/2022, 18:44.? (units unknown) (unknown) (unknown) (no date) (unknown) (unknown) CT Scan Report (units unknown) (unknown) (unknown) (no date) (unknown) (unknown) CT abdomen pelvis w con Stat (units unknown) (unknown) (unknown) (no date) (unknown) (unknown) CT scan - abdomen/pelvis: (units unknown) (unknown) (unknown) (no date) (unknown) (unknown) Calcium (8.4-10.2) mg/dL (units unknown) (unknown) (unknown) (no date) (unknown) (unknown) Calcium 8.7 (8.4-10.2) mg/dL (units unknown) (unknown) (unknown) (no date) (unknown) (unknown) Carbon Dioxide (22-32) mmol/L (units unknown) (unknown) (unknown) (no date) (unknown) (unknown) Carbon Dioxide 25 (22-32) mmol/L (units unknown) (unknown) (unknown) (no date) (unknown) (unknown) Chief complaint: GI Bleed (units unknown) (unknown) (unknown) (no date) (unknown) (unknown) Chloride (98-107) mmol/L (units unknown) (unknown) (unknown) (no date) (unknown) (unknown) Chloride 107 (98-107) mmol/L (units unknown) (unknown) (unknown) (no date) (unknown) (unknown) Chronic anticoagulation (units unknown) (unknown) (unknown) (no date) (unknown) (unknown) Clinical Impression: (units unknown) (unknown) (unknown) (no date) (unknown) (unknown) Close (units unknown) (unknown) (unknown) (no date) (unknown) (unknown) Complete Blood Count AUTO DIFF Stat (units unknown) (unknown) (unknown) (no date) (unknown) (unknown) Complex-Vitamin B12 tablet) (units unknown) (unknown) (unknown) (no date) (unknown) (unknown) Comprehensive Metabolic Panel Stat (units unknown) (unknown) (unknown) (no date) (unknown) (unknown) Course (units unknown) (unknown) (unknown) (no date) (unknown) (unknown) Creatinine (0.66-1.25) mg/dL (units unknown) (unknown) (unknown) (no date) (unknown) (unknown) Creatinine 1.05 (0.66-1.25) mg/dL (units unknown) (unknown) (unknown) (no date) (unknown) (unknown) : 1935 Acct:[id number] (units unknown) (unknown) (unknown) (no date) (unknown) (unknown) : 1935 (units unknown) (unknown) (unknown) (no date) (unknown) (unknown) Date of Service: 02/18/23 (units unknown) (unknown) (unknown) (no date) (unknown) (unknown) Departure (units unknown) (unknown) (unknown) (no date) (unknown) (unknown) Dictated by: Jl Langford M.D. on 02/18/2023 at 15:02 ? ? (units unknown) (unknown) (unknown) (no date) (unknown) (unknown) Discharge Plan (units unknown) (unknown) (unknown) (no date) (unknown) (unknown) Discontinued Medications (units unknown) (unknown) (unknown) (no date) (unknown) (unknown) Documented By: [facility] (units unknown) (unknown) (unknown) (no date) (unknown) (unknown) Dr. Santana, hospitalist (units unknown) (unknown) (unknown) (no date) (unknown) (unknown) ECG Data (units unknown) (unknown) (unknown) (no date) (unknown) (unknown) ED Orders (units unknown) (unknown) (unknown) (no date) (unknown) (unknown) EKG-12 Lead Stat (units unknown) (unknown) (unknown) (no date) (unknown) (unknown) ER Physician: Natalie Hernandez D.O. (units unknown) (unknown) (unknown) (no date) (unknown) (unknown) EXTREMITIES: Normal range of motion, no clubbing or edema. Neurovascularly (units unknown) (unknown) (unknown) (no date) (unknown) (unknown) Emergency Report (units unknown) (unknown) (unknown) (no date) (unknown) (unknown) Eos # (Auto) (0-450) /uL (units unknown) (unknown) (unknown) (no date) (unknown) (unknown) Eos # (Auto) 100 (0-450) /uL (units unknown) (unknown) (unknown) (no date) (unknown) (unknown) Eos % (Auto) (2-4) % (units unknown) (unknown) (unknown) (no date) (unknown) (unknown) Eos % (Auto) 1.2 L (2-4) % (units unknown) (unknown) (unknown) (no date) (unknown) (unknown) Esterase (units unknown) (unknown) (unknown) (no date) (unknown) (unknown) Estimated GFR > 60 (>60) mL/min (units unknown) (unknown) (unknown) (no date) (unknown) (unknown) Estimated GFR (>60) mL/min (units unknown) (unknown) (unknown) (no date) (unknown) (unknown) Exam Narrative: (units unknown) (unknown) (unknown) (no date) (unknown) (unknown) Exam (units unknown) (unknown) (unknown) (no date) (unknown) (unknown) Extensive descending colonic and sigmoid colonic diverticulosis but without (units unknown) (unknown) (unknown) (no date) (unknown) (unknown) FINDINGS:? (units unknown) (unknown) (unknown) (no date) (unknown) (unknown) Family History (units unknown) (unknown) (unknown) (no date) (unknown) (unknown) Father No problems noted. (units unknown) (unknown) (unknown) (no date) (unknown) (unknown) For (units unknown) (unknown) (unknown) (no date) (unknown) (unknown) GENERAL: Alert and oriented x three, mild distress. (units unknown) (unknown) (unknown) (no date) (unknown) (unknown) GI bleed (units unknown) (unknown) (unknown) (no date) (unknown) (unknown) : No CVA tenderness (units unknown) (unknown) (unknown) (no date) (unknown) (unknown) Gallbladder:? The gallbladder contains numerous peripherally faintly calcified (units unknown) (unknown) (unknown) (no date) (unknown) (unknown) General (units unknown) (unknown) (unknown) (no date) (unknown) (unknown) Globulin (1.7-4.1) g/dL (units unknown) (unknown) (unknown) (no date) (unknown) (unknown) Globulin 3.4 (1.7-4.1) g/dL (units unknown) (unknown) (unknown) (no date) (unknown) (unknown) Glucose (80-110) mg/dL (units unknown) (unknown) (unknown) (no date) (unknown) (unknown) Glucose 136 H (80-110) mg/dL (units unknown) (unknown) (unknown) (no date) (unknown) (unknown) HEENT: Head normocephalic, atraumatic, EOMI, pale conjunctiva. Pupils reactive, (units unknown) (unknown) (unknown) (no date) (unknown) (unknown) HPI - GI Bleed (units unknown) (unknown) (unknown) (no date) (unknown) (unknown) HPI Narrative: (units unknown) (unknown) (unknown) (no date) (unknown) (unknown) Jl Langford (units unknown) (unknown) (unknown) (no date) (unknown) (unknown) Hct (41-53) % (units unknown) (unknown) (unknown) (no date) (unknown) (unknown) Hct 35.6 L (41-53) % (units unknown) (unknown) (unknown) (no date) (unknown) (unknown) He has been using a walker and wheelchair intermittently and his son was picking (units unknown) (unknown) (unknown) (no date) (unknown) (unknown) Heart:? No significant findings. (units unknown) (unknown) (unknown) (no date) (unknown) (unknown) Hemoglobin is 11.8 he was 13.6 on October 25, 2022 normal platelets today normal (units unknown) (unknown) (unknown) (no date) (unknown) (unknown) Hgb (13.5-17.5) g/dL (units unknown) (unknown) (unknown) (no date) (unknown) (unknown) Hgb 11.8 L (13.5-17.5) g/dL (units unknown) (unknown) (unknown) (no date) (unknown) (unknown) History of Present Illness (units unknown) (unknown) (unknown) (no date) (unknown) (unknown) History of permanent cardiac pacemaker placement (units unknown) (unknown) (unknown) (no date) (unknown) (unknown) Home Medications (units unknown) (unknown) (unknown) (no date) (unknown) (unknown) Hospital, CT, CT PEL WO CON, 12/25/2022, 14:06. (units unknown) (unknown) (unknown) (no date) (unknown) (unknown) IMPRESSION:? Numerous small to moderate-sized gallstones within the gallbladder (units unknown) (unknown) (unknown) (no date) (unknown) (unknown) INDICATIONS:? gi bleed, likely lower, weight loss (units unknown) (unknown) (unknown) (no date) (unknown) (unknown) INR (0.9-1.3) (units unknown) (unknown) (unknown) (no date) (unknown) (unknown) INR 1.7 H (0.9-1.3) (units unknown) (unknown) (unknown) (no date) (unknown) (unknown) Image quality:? Excellent.? (units unknown) (unknown) (unknown) (no date) (unknown) (unknown) Imaging Data (units unknown) (unknown) (unknown) (no date) (unknown) (unknown) Imaging Reports (units unknown) (unknown) (unknown) (no date) (unknown) (unknown) Initial Vital Signs (units unknown) (unknown) (unknown) (no date) (unknown) (unknown) Initial Vital Signs: (units unknown) (unknown) (unknown) (no date) (unknown) (unknown) Interpretation: (units unknown) (unknown) (unknown) (no date) (unknown) (unknown) [address] [id number] (units unknown) (unknown) (unknown) (no date) (unknown) (unknown) [facility] (units unknown) (unknown) (unknown) (no date) (unknown) (unknown) [place] (units unknown) (unknown) (unknown) (no date) (unknown) (unknown) Kidneys and Ureters:? Unremarkable.? ? (units unknown) (unknown) (unknown) (no date) (unknown) (unknown) Lab Data (units unknown) (unknown) (unknown) (no date) (unknown) (unknown) Lab Results (units unknown) (unknown) (unknown) (no date) (unknown) (unknown) Labs: (units unknown) (unknown) (unknown) (no date) (unknown) (unknown) Last Admin: 02/18/23 11:36 Dose: 80 mg (units unknown) (unknown) (unknown) (no date) (unknown) (unknown) Last Admin: 02/18/23 14:06 Dose: 150 mls/hr (units unknown) (unknown) (unknown) (no date) (unknown) (unknown) Launch?Image (units unknown) (unknown) (unknown) (no date) (unknown) (unknown) Limitations: no limitations (units unknown) (unknown) (unknown) (no date) (unknown) (unknown) Liver:? Unremarkable.? ? (units unknown) (unknown) (unknown) (no date) (unknown) (unknown) Loc: ED (units unknown) (unknown) (unknown) (no date) (unknown) (unknown) [place] 0.01 % Drops (units unknown) (unknown) (unknown) (no date) (unknown) (unknown) Lung bases:? Unremarkable. (units unknown) (unknown) (unknown) (no date) (unknown) (unknown) Lymph # (Auto) (0618-0391) /uL (units unknown) (unknown) (unknown) (no date) (unknown) (unknown) Lymph # (Auto) 1100 (0365-4054) /uL (units unknown) (unknown) (unknown) (no date) (unknown) (unknown) Lymph % (Auto) (25-40) % (units unknown) (unknown) (unknown) (no date) (unknown) (unknown) Lymph % (Auto) 15.0 L (25-40) % (units unknown) (unknown) (unknown) (no date) (unknown) (unknown) MCH (26-34) PG (units unknown) (unknown) (unknown) (no date) (unknown) (unknown) MCH 31.3 (26-34) PG (units unknown) (unknown) (unknown) (no date) (unknown) (unknown) MCHC (30-36) % (units unknown) (unknown) (unknown) (no date) (unknown) (unknown) MCHC 33.1 (30-36) % (units unknown) (unknown) (unknown) (no date) (unknown) (unknown) MCV (80-100) fL (units unknown) (unknown) (unknown) (no date) (unknown) (unknown) MCV 94.6 (80-100) fL (units unknown) (unknown) (unknown) (no date) (unknown) (unknown) MDM - GI Bleed (units unknown) (unknown) (unknown) (no date) (unknown) (unknown) MDM Narrative (units unknown) (unknown) (unknown) (no date) (unknown) (unknown) MR#: [id number] (units unknown) (unknown) (unknown) (no date) (unknown) (unknown) Medical History (units unknown) (unknown) (unknown) (no date) (unknown) (unknown) Medical decision making narrative: (units unknown) (unknown) (unknown) (no date) (unknown) (unknown) Medication Instructions Recorded Confirmed (units unknown) (unknown) (unknown) (no date) (unknown) (unknown) Medication Instructions Recorded (units unknown) (unknown) (unknown) (no date) (unknown) (unknown) Miscellaneous,Doctor , MD [Primary Care Provider] (units unknown) (unknown) (unknown) (no date) (unknown) (unknown) Miscellaneous: No hernias are seen.? ? Note is made of moderately severe (units unknown) (unknown) (unknown) (no date) (unknown) (unknown) Mode of arrival: EMS (units unknown) (unknown) (unknown) (no date) (unknown) (unknown) [place] # (Auto) (0-900) /uL (units unknown) (unknown) (unknown) (no date) (unknown) (unknown) [place] # (Auto) 600 (0-900) /uL (units unknown) (unknown) (unknown) (no date) (unknown) (unknown) [place] % (Auto) (3-14) % (units unknown) (unknown) (unknown) (no date) (unknown) (unknown) [place] % (Auto) 8.3 (3-14) % (units unknown) (unknown) (unknown) (no date) (unknown) (unknown) Mother Cancer (units unknown) (unknown) (unknown) (no date) (unknown) (unknown) NECK: Supple, full range of motion (units unknown) (unknown) (unknown) (no date) (unknown) (unknown) NEUROLOGICAL: Cranial nerves II through XII grossly intact. Moving all (units unknown) (unknown) (unknown) (no date) (unknown) (unknown) Narrative (units unknown) (unknown) (unknown) (no date) (unknown) (unknown) Neut # (Auto) (5590-7619) /uL (units unknown) (unknown) (unknown) (no date) (unknown) (unknown) Neut # (Auto) 5600 (4987-1613) /uL (units unknown) (unknown) (unknown) (no date) (unknown) (unknown) Neut % (Auto) (50-75) % (units unknown) (unknown) (unknown) (no date) (unknown) (unknown) Neut % (Auto) 74.4 (50-75) % (units unknown) (unknown) (unknown) (no date) (unknown) (unknown) No Action (units unknown) (unknown) (unknown) (no date) (unknown) (unknown) No Known Drug Allergies Allergy Verified 02/18/23 10:27 (units unknown) (unknown) (unknown) (no date) (unknown) (unknown) No active bleeding at time of CT scanning found, no mass lesion seen within the (units unknown) (unknown) (unknown) (no date) (unknown) (unknown) Ondansetron HCl (Ondansetron 4 Mg/2 Ml Inj) 4 mg IV NOW PRN (units unknown) (unknown) (unknown) (no date) (unknown) (unknown) Ordered: (units unknown) (unknown) (unknown) (no date) (unknown) (unknown) Ordering Provider: Natalie Hernandez D.O. (units unknown) (unknown) (unknown) (no date) (unknown) (unknown) Orders (units unknown) (unknown) (unknown) (no date) (unknown) (unknown) Osteoporosis (units unknown) (unknown) (unknown) (no date) (unknown) (unknown) Oxygen Delivery Method Room Air 02/18/23 10:21 (units unknown) (unknown) (unknown) (no date) (unknown) (unknown) Oxygen Delivery Method Room Air (units unknown) (unknown) (unknown) (no date) (unknown) (unknown) Oxygen Delivery Method (units unknown) (unknown) (unknown) (no date) (unknown) (unknown) PELVIS: (units unknown) (unknown) (unknown) (no date) (unknown) (unknown) PRN Reason: Nausea And Vomiting (units unknown) (unknown) (unknown) (no date) (unknown) (unknown) PROCEDURE:? CT ABDOMEN PELVIS W CON (units unknown) (unknown) (unknown) (no date) (unknown) (unknown) PT (10.1-12.7) SECONDS (units unknown) (unknown) (unknown) (no date) (unknown) (unknown) PT 20.0 H (10.1-12.7) SECONDS (units unknown) (unknown) (unknown) (no date) (unknown) (unknown) PTT Partial Thromboplastin Rodriguez Stat (units unknown) (unknown) (unknown) (no date) (unknown) (unknown) Pancreas:? Unremarkable.? ? (units unknown) (unknown) (unknown) (no date) (unknown) (unknown) Pantoprazole Sodium (Pantoprazole 40 Mg Vial) 80 mg IV NOW ONE (units unknown) (unknown) (unknown) (no date) (unknown) (unknown) Patient History (units unknown) (unknown) (unknown) (no date) (unknown) (unknown) Patient is open to blood transfusion. (units unknown) (unknown) (unknown) (no date) (unknown) (unknown) Patient: Jonny Neely MR#: [id number] (units unknown) (unknown) (unknown) (no date) (unknown) (unknown) Patient: Jonny Neely (units unknown) (unknown) (unknown) (no date) (unknown) (unknown) Pelvic Nodes: No enlarged lymph nodes.? (units unknown) (unknown) (unknown) (no date) (unknown) (unknown) Pelvic Organs:? Unremarkable.? ? (units unknown) (unknown) (unknown) (no date) (unknown) (unknown) Peritoneum:? No abnormal intraperitoneal fluid.? No free air.? (units unknown) (unknown) (unknown) (no date) (unknown) (unknown) Plt Count (150-400) X103/uL (units unknown) (unknown) (unknown) (no date) (unknown) (unknown) Plt Count 183 (150-400) X103/uL (units unknown) (unknown) (unknown) (no date) (unknown) (unknown) Point of Care Testing (units unknown) (unknown) (unknown) (no date) (unknown) (unknown) Potassium (3.4-5.1) mmol/L (units unknown) (unknown) (unknown) (no date) (unknown) (unknown) Potassium 3.6 (3.4-5.1) mmol/L (units unknown) (unknown) (unknown) (no date) (unknown) (unknown) Prescriptions: (units unknown) (unknown) (unknown) (no date) (unknown) (unknown) Previous Rx's (units unknown) (unknown) (unknown) (no date) (unknown) (unknown) Prior ECG tracings: available for review (units unknown) (unknown) (unknown) (no date) (unknown) (unknown) Procedure: CT abdomen pelvis w con (units unknown) (unknown) (unknown) (no date) (unknown) (unknown) Prothrombin Time INR Stat (units unknown) (unknown) (unknown) (no date) (unknown) (unknown) Pulse Oximetry 96 (units unknown) (unknown) (unknown) (no date) (unknown) (unknown) Pulse Oximetry 97 96 (units unknown) (unknown) (unknown) (no date) (unknown) (unknown) Pulse Oximetry 97 97 (units unknown) (unknown) (unknown) (no date) (unknown) (unknown) Pulse Oximetry 97 (units unknown) (unknown) (unknown) (no date) (unknown) (unknown) Pulse Oximetry 98 02/18/23 10:21 (units unknown) (unknown) (unknown) (no date) (unknown) (unknown) Pulse Oximetry 98 97 (units unknown) (unknown) (unknown) (no date) (unknown) (unknown) Pulse Oximetry 98 98 (units unknown) (unknown) (unknown) (no date) (unknown) (unknown) Pulse Oximetry 99 98 (units unknown) (unknown) (unknown) (no date) (unknown) (unknown) Pulse Oximetry 99 (units unknown) (unknown) (unknown) (no date) (unknown) (unknown) Pulse Rate 101 H 81 (units unknown) (unknown) (unknown) (no date) (unknown) (unknown) Pulse Rate 72 69 (units unknown) (unknown) (unknown) (no date) (unknown) (unknown) Pulse Rate 74 (units unknown) (unknown) (unknown) (no date) (unknown) (unknown) Pulse Rate 75 (units unknown) (unknown) (unknown) (no date) (unknown) (unknown) Pulse Rate 77 (units unknown) (unknown) (unknown) (no date) (unknown) (unknown) Pulse Rate 78 74 (units unknown) (unknown) (unknown) (no date) (unknown) (unknown) Pulse Rate 80 76 (units unknown) (unknown) (unknown) (no date) (unknown) (unknown) Pulse Rate 80 (units unknown) (unknown) (unknown) (no date) (unknown) (unknown) Pulse Rate 81 02/18/23 10:21 (units unknown) (unknown) (unknown) (no date) (unknown) (unknown) Pulse Rate 81 73 (units unknown) (unknown) (unknown) (no date) (unknown) (unknown) Pulse Rate 81 98 H (units unknown) (unknown) (unknown) (no date) (unknown) (unknown) RBC (4.5-5.9) X106/uL (units unknown) (unknown) (unknown) (no date) (unknown) (unknown) RBC 3.76 L (4.5-5.9) X106/uL (units unknown) (unknown) (unknown) (no date) (unknown) (unknown) RDW (11.6-14.8) % (units unknown) (unknown) (unknown) (no date) (unknown) (unknown) RDW 16.6 H (11.6-14.8) % (units unknown) (unknown) (unknown) (no date) (unknown) (unknown) RESPIRATORY: Breath sounds equal bilaterally, no wheezes rales or rhonchi. No (units unknown) (unknown) (unknown) (no date) (unknown) (unknown) ROS Unobtainable: All systems reviewed + are unremarkable except as noted in HPI (units unknown) (unknown) (unknown) (no date) (unknown) (unknown) Radiologist's Impression: (units unknown) (unknown) (unknown) (no date) (unknown) (unknown) Referrals: (units unknown) (unknown) (unknown) (no date) (unknown) (unknown) Related Data (units unknown) (unknown) (unknown) (no date) (unknown) (unknown) Respiratory Rate 12 15 (units unknown) (unknown) (unknown) (no date) (unknown) (unknown) Respiratory Rate 13 (units unknown) (unknown) (unknown) (no date) (unknown) (unknown) Respiratory Rate 15 (units unknown) (unknown) (unknown) (no date) (unknown) (unknown) Respiratory Rate 16 02/18/23 10:21 (units unknown) (unknown) (unknown) (no date) (unknown) (unknown) Respiratory Rate 16 15 (units unknown) (unknown) (unknown) (no date) (unknown) (unknown) Respiratory Rate 18 13 (units unknown) (unknown) (unknown) (no date) (unknown) (unknown) Respiratory Rate 20 19 (units unknown) (unknown) (unknown) (no date) (unknown) (unknown) Respiratory Rate 21 14 (units unknown) (unknown) (unknown) (no date) (unknown) (unknown) Respiratory Rate 21 16 (units unknown) (unknown) (unknown) (no date) (unknown) (unknown) Respiratory Rate 22 18 (units unknown) (unknown) (unknown) (no date) (unknown) (unknown) Respiratory Rate 22 (units unknown) (unknown) (unknown) (no date) (unknown) (unknown) Review of Systems (units unknown) (unknown) (unknown) (no date) (unknown) (unknown) Right bundle. Rate of 83 QRS of 124 QTC of 434. Patient has prior EKG is not (units unknown) (unknown) (unknown) (no date) (unknown) (unknown) Rx Instructions: (units unknown) (unknown) (unknown) (no date) (unknown) (unknown) SKIN: Warm, dry, no petechiae, no rashes or lesions. (units unknown) (unknown) (unknown) (no date) (unknown) (unknown) Signed By: (units unknown) (unknown) (unknown) (no date) (unknown) (unknown) Signed (units unknown) (unknown) (unknown) (no date) (unknown) (unknown) Smoking Status: Never smoker (units unknown) (unknown) (unknown) (no date) (unknown) (unknown) Social History (units unknown) (unknown) (unknown) (no date) (unknown) (unknown) Sodium (137-145) mmol/L (units unknown) (unknown) (unknown) (no date) (unknown) (unknown) Sodium 139 (137-145) mmol/L (units unknown) (unknown) (unknown) (no date) (unknown) (unknown) Sodium Chloride (Normal Saline 0.9%) 1,000 mls @ 150 mls/hr IV CONT KEON (units unknown) (unknown) (unknown) (no date) (unknown) (unknown) Source: patient and EMS (units unknown) (unknown) (unknown) (no date) (unknown) (unknown) Spleen:? Unremarkable.? ? (units unknown) (unknown) (unknown) (no date) (unknown) (unknown) Stated complaint: Possible GI bleed (units unknown) (unknown) (unknown) (no date) (unknown) (unknown) Stomach and Bowel:? Stomach, small bowel loops, and colon are unremarkable.? (units unknown) (unknown) (unknown) (no date) (unknown) (unknown) Stool Occult Blood Positive (units unknown) (unknown) (unknown) (no date) (unknown) (unknown) Stop: 02/18/23 10:19 (units unknown) (unknown) (unknown) (no date) (unknown) (unknown) Substance Use Type: does not use (units unknown) (unknown) (unknown) (no date) (unknown) (unknown) Surgical History (units unknown) (unknown) (unknown) (no date) (unknown) (unknown) TECHNIQUE:? (units unknown) (unknown) (unknown) (no date) (unknown) (unknown) Temperature 98.7 F 02/18/23 10:21 (units unknown) (unknown) (unknown) (no date) (unknown) (unknown) Temperature 98.7 F (units unknown) (unknown) (unknown) (no date) (unknown) (unknown) Temperature (units unknown) (unknown) (unknown) (no date) (unknown) (unknown) This is a 87-year-old male who presents with potential GI bleed. Patient is (units unknown) (unknown) (unknown) (no date) (unknown) (unknown) Time Seen by Provider: 02/18/23 12:57 (units unknown) (unknown) (unknown) (no date) (unknown) (unknown) Total Bilirubin (0.2-1.3) mg/dL (units unknown) (unknown) (unknown) (no date) (unknown) (unknown) Total Bilirubin 0.6 (0.2-1.3) mg/dL (units unknown) (unknown) (unknown) (no date) (unknown) (unknown) Total Protein (6.3-8.2) g/dL (units unknown) (unknown) (unknown) (no date) (unknown) (unknown) Total Protein 6.8 (6.3-8.2) g/dL (units unknown) (unknown) (unknown) (no date) (unknown) (unknown) Type and Screen Stat (units unknown) (unknown) (unknown) (no date) (unknown) (unknown) Ur Culture Indicated? Specimen cultured (units unknown) (unknown) (unknown) (no date) (unknown) (unknown) Ur Culture Indicated? (units unknown) (unknown) (unknown) (no date) (unknown) (unknown) Ur Squamous Epith Cells (0-5/HPF) (units unknown) (unknown) (unknown) (no date) (unknown) (unknown) Ur Squamous Epith Cells None seen (0-5/HPF) (units unknown) (unknown) (unknown) (no date) (unknown) (unknown) Urine Bacteria (None) (units unknown) (unknown) (unknown) (no date) (unknown) (unknown) Urine Bacteria Many (>30) H (None) (units unknown) (unknown) (unknown) (no date) (unknown) (unknown) Urine Culture Stat (units unknown) (unknown) (unknown) (no date) (unknown) (unknown) Urine Dip (units unknown) (unknown) (unknown) (no date) (unknown) (unknown) Urine Microscopic Stat (units unknown) (unknown) (unknown) (no date) (unknown) (unknown) Urine RBC (0-5/HPF) (units unknown) (unknown) (unknown) (no date) (unknown) (unknown) Urine RBC 0-1/hpf (0-5/HPF) (units unknown) (unknown) (unknown) (no date) (unknown) (unknown) Urine Specific [place] 1.015 (units unknown) (unknown) (unknown) (no date) (unknown) (unknown) Urine WBC >100/hpf H (0-5/HPF) (units unknown) (unknown) (unknown) (no date) (unknown) (unknown) Urine WBC (0-5/HPF) (units unknown) (unknown) (unknown) (no date) (unknown) (unknown) Ventral Wall: ? No hernias.? (units unknown) (unknown) (unknown) (no date) (unknown) (unknown) Vessels:? Aorta and inferior vena cava are normal in size.? (units unknown) (unknown) (unknown) (no date) (unknown) (unknown) Vital Signs - 8 hr (units unknown) (unknown) (unknown) (no date) (unknown) (unknown) Vital Signs (units unknown) (unknown) (unknown) (no date) (unknown) (unknown) Vital signs: (units unknown) (unknown) (unknown) (no date) (unknown) (unknown) WBC (4.5-11.0) X103/uL (units unknown) (unknown) (unknown) (no date) (unknown) (unknown) WBC 7.6 (4.5-11.0) X103/uL (units unknown) (unknown) (unknown) (no date) (unknown) (unknown) Xarelto 20 mg Tablet (units unknown) (unknown) (unknown) (no date) (unknown) (unknown) [Embedded Image Not Available] (units unknown) (unknown) (unknown) (no date) (unknown) (unknown) acute diverticulitis. (units unknown) (unknown) (unknown) (no date) (unknown) (unknown) adjustment (units unknown) (unknown) (unknown) (no date) (unknown) (unknown) alcohol intake frequency: 0-2 drinks per day (units unknown) (unknown) (unknown) (no date) (unknown) (unknown) alcohol intake: current (units unknown) (unknown) (unknown) (no date) (unknown) (unknown) and below (units unknown) (unknown) (unknown) (no date) (unknown) (unknown) and he seems a little gone so CT abdomen pelvis was obtained. Patient has dark (units unknown) (unknown) (unknown) (no date) (unknown) (unknown) bases to the pubic symphysis.? Coronal and sagittal reformats were performed.? (units unknown) (unknown) (unknown) (no date) (unknown) (unknown) biliary (units unknown) (unknown) (unknown) (no date) (unknown) (unknown) bimatoprost 0.01 % eye drops 1 drp ophthalmic (eye) DAILY 10/24/22 10/24/22 (units unknown) (unknown) (unknown) (no date) (unknown) (unknown) black stool present on rectal exam. Positive for Hemoccult. (units unknown) (unknown) (unknown) (no date) (unknown) (unknown) blunt his tachycardia response. Patient's family has noted a lot of weight loss (units unknown) (unknown) (unknown) (no date) (unknown) (unknown) bupropion HCl 150 mg Tablet Sustained-Release 12 Hr (units unknown) (unknown) (unknown) (no date) (unknown) (unknown) bupropion HCl 150 mg tablet,12 hr 150 mg PO BID 10/24/22 10/24/22 (units unknown) (unknown) (unknown) (no date) (unknown) (unknown) but type and screen was ordered with plan to transfuse if needed. Patient is (units unknown) (unknown) (unknown) (no date) (unknown) (unknown) capsule,extended release 24 hr (units unknown) (unknown) (unknown) (no date) (unknown) (unknown) chest pain or shortness of breath. Patient states he is not had GI bleeds in (units unknown) (unknown) (unknown) (no date) (unknown) (unknown) colonic and sigmoid colonic diverticulosis but no definite acute diverticulitis (units unknown) (unknown) (unknown) (no date) (unknown) (unknown) colonic mass is found.? (units unknown) (unknown) (unknown) (no date) (unknown) (unknown) definite (units unknown) (unknown) (unknown) (no date) (unknown) (unknown) denies any urinary symptoms no hematuria, dysuria, urgency or frequency. Denies (units unknown) (unknown) (unknown) (no date) (unknown) (unknown) descending left (units unknown) (unknown) (unknown) (no date) (unknown) (unknown) diarrhea but did have stool today. He is not had similar in the past. He (units unknown) (unknown) (unknown) (no date) (unknown) (unknown) diltiazem HCl 240 mg 240 mg PO DAILY 10/24/22 10/24/22 (units unknown) (unknown) (unknown) (no date) (unknown) (unknown) diltiazem HCl 240 mg Capsule,Extended Release 24hr (units unknown) (unknown) (unknown) (no date) (unknown) (unknown) distention is associated, however.? ? (units unknown) (unknown) (unknown) (no date) (unknown) (unknown) dorzolamide 22.3 mg-timolol 6.8 1 drp ophthalmic (eye) DAILY 10/24/22 10/24/22 (units unknown) (unknown) (unknown) (no date) (unknown) (unknown) dorzolamide-timolol 22.3-6.8 mg/mL Drops (units unknown) (unknown) (unknown) (no date) (unknown) (unknown) ea (units unknown) (unknown) (unknown) (no date) (unknown) (unknown) extremities (units unknown) (unknown) (unknown) (no date) (unknown) (unknown) face symmetric, moist mucous membranes (units unknown) (unknown) (unknown) (no date) (unknown) (unknown) fevers or chills. No nausea or vomiting. He denies any lightheadedness. No (units unknown) (unknown) (unknown) (no date) (unknown) (unknown) finasteride 5 mg Tablet (units unknown) (unknown) (unknown) (no date) (unknown) (unknown) finasteride 5 mg tablet 5 mg PO DAILY 10/24/22 10/24/22 (units unknown) (unknown) (unknown) (no date) (unknown) (unknown) fluids and case discussed with Dr. Altman, general surgery for consultation. (units unknown) (unknown) (unknown) (no date) (unknown) (unknown) gabapentin 400 mg capsule 400 mg PO TID #30 caps 12/04/22 (units unknown) (unknown) (unknown) (no date) (unknown) (unknown) gabapentin 400 mg capsule (units unknown) (unknown) (unknown) (no date) (unknown) (unknown) gallops. No JVD. No swelling bilateral lower extremities. (units unknown) (unknown) (unknown) (no date) (unknown) (unknown) gallstones, small to moderate in size.? No definite acute cholecystitis or (units unknown) (unknown) (unknown) (no date) (unknown) (unknown) guarding or rebound, rigidity, no mass, patient has a large amount of red and (units unknown) (unknown) (unknown) (no date) (unknown) (unknown) has had a significant decrease in his weight loss over the past several months. (units unknown) (unknown) (unknown) (no date) (unknown) (unknown) him up from [facility] who rehab today to take him home. He notes that he has a is (units unknown) (unknown) (unknown) (no date) (unknown) (unknown) his leg pain and this significantly improved his symptoms. No tobacco, alcohol (units unknown) (unknown) (unknown) (no date) (unknown) (unknown) household members: none and other (units unknown) (unknown) (unknown) (no date) (unknown) (unknown) hypotensive he states this is his normal blood pressure, on visits in December he (units unknown) (unknown) (unknown) (no date) (unknown) (unknown) intact (units unknown) (unknown) (unknown) (no date) (unknown) (unknown) it was more dark blood and not bright red. He denies abdominal back or flank (units unknown) (unknown) (unknown) (no date) (unknown) (unknown) last night everything was fine he had a very dark bloody stool today. He states (units unknown) (unknown) (unknown) (no date) (unknown) (unknown) leave on most painful area for up to 12 hrs (units unknown) (unknown) (unknown) (no date) (unknown) (unknown) lidocaine 5 % adhesive patch,medicated (units unknown) (unknown) (unknown) (no date) (unknown) (unknown) lidocaine 5 % topical patch 1 patch topical DAILY PRN pain #30 12/04/22 (units unknown) (unknown) (unknown) (no date) (unknown) (unknown) lumen but (units unknown) (unknown) (unknown) (no date) (unknown) (unknown) mg/mL eye drops (units unknown) (unknown) (unknown) (no date) (unknown) (unknown) must administer with evening meal (units unknown) (unknown) (unknown) (no date) (unknown) (unknown) normal LFTs and electrolytes. INR is 1.7. Patient is not currently symptomatic (units unknown) (unknown) (unknown) (no date) (unknown) (unknown) not tachycardic accept for initially 98-100 but is on diltiazem which might (units unknown) (unknown) (unknown) (no date) (unknown) (unknown) of mA and/or kV according to patient size.? (units unknown) (unknown) (unknown) (no date) (unknown) (unknown) omeprazole 20 mg Capsule,Delayed Release(Dr/Ec) (units unknown) (unknown) (unknown) (no date) (unknown) (unknown) omeprazole 20 mg capsule,delayed 20 mg PO DAILY 10/24/22 10/24/22 (units unknown) (unknown) (unknown) (no date) (unknown) (unknown) or illicit. No known drug allergies. Dr. Booth is his primary care physician. (units unknown) (unknown) (unknown) (no date) (unknown) (unknown) or (units unknown) (unknown) (unknown) (no date) (unknown) (unknown) paced but otherwise no other ST segments noted. (units unknown) (unknown) (unknown) (no date) (unknown) (unknown) pain. He denies any rectal pain. States he has not been having frequent (units unknown) (unknown) (unknown) (no date) (unknown) (unknown) radiation dose reduction, the following was used:? automated exposure control, (units unknown) (unknown) (unknown) (no date) (unknown) (unknown) recent bone that had injection in significant improvement of his pain and (units unknown) (unknown) (unknown) (no date) (unknown) (unknown) red along with blackish discolored stool so Protonix 80 mg was ordered, gentle (units unknown) (unknown) (unknown) (no date) (unknown) (unknown) release (units unknown) (unknown) (unknown) (no date) (unknown) (unknown) right eye (units unknown) (unknown) (unknown) (no date) (unknown) (unknown) rivaroxaban 20 mg tablet (Xarelto) 20 mg PO QPM 10/24/22 10/24/22 (units unknown) (unknown) (unknown) (no date) (unknown) (unknown) setting up home health care for the patient as well. Son also notes the patient (units unknown) (unknown) (unknown) (no date) (unknown) (unknown) sustained-release (units unknown) (unknown) (unknown) (no date) (unknown) (unknown) tachypnea or accessory muscle use. (units unknown) (unknown) (unknown) (no date) (unknown) (unknown) tamsulosin 0.4 mg Capsule (units unknown) (unknown) (unknown) (no date) (unknown) (unknown) tamsulosin 0.4 mg capsule 0.4 mg PO BEDTIME 10/24/22 10/24/22 (units unknown) (unknown) (unknown) (no date) (unknown) (unknown) the lung (units unknown) (unknown) (unknown) (no date) (unknown) (unknown) the past. Patient denies any surgeries he states he did have an injection for (units unknown) (unknown) (unknown) (no date) (unknown) (unknown) topical ointment (units unknown) (unknown) (unknown) (no date) (unknown) (unknown) tramadol 50 mg tablet 50 mg PO Q8H PRN pain #10 tabs 12/04/22 (units unknown) (unknown) (unknown) (no date) (unknown) (unknown) tramadol 50 mg tablet 50 mg PO Q8H PRN pain #10 tabs 12/25/22 (units unknown) (unknown) (unknown) (no date) (unknown) (unknown) tramadol 50 mg tablet (units unknown) (unknown) (unknown) (no date) (unknown) (unknown) triamcinolone acetonide 0.1 % 1 applic topical DAILY PRN Dry Skin 10/24/22 (units unknown) (unknown) (unknown) (no date) (unknown) (unknown) triamcinolone acetonide 0.1 % Ointment (units unknown) (unknown) (unknown) (no date) (unknown) (unknown) visualized colon. (units unknown) (unknown) (unknown) (no date) (unknown) (unknown) vitamin B complex (B 1 tab PO DAILY 10/24/22 10/24/22 (units unknown) (unknown) (unknown) (no date) (unknown) (unknown) vitamin B complex [B Complex-Vitamin B12] Tablet (units unknown) (unknown) (unknown) (no date) (unknown) (unknown) was 120-117, patient's son is not sure. He notes he has lost a lot of weight. (units unknown) (unknown) (unknown) (no date) (unknown) (unknown) weakness but had just been discharged from rehab for debility. Patient states (units unknown) (unknown) (unknown) (no date) (unknown) (unknown) white count but is anticoagulated on Xarelto. Creatinine is 1.05 BUN is 15, (units unknown) (unknown) (unknown) (no date) (unknown) (unknown) without evidence of acute cholecystitis. (units unknown) (unknown) Result panel 126 (unknown) (no date) (unknown) (unknown) (no value) (units unknown) (unknown) (unknown) (no date) (unknown) (unknown) ([place]) (units unknown) (unknown) (unknown) (no date) (unknown) (unknown) 0.4 mg PO BEDTIME (units unknown) (unknown) (unknown) (no date) (unknown) (unknown) 10/24/22 (units unknown) (unknown) (unknown) (no date) (unknown) (unknown) [id number] (units unknown) (unknown) (unknown) (no date) (unknown) (unknown) 02/18/23 02/18/23 02/18/23 Range/Units (units unknown) (unknown) (unknown) (no date) (unknown) (unknown) 02/18/23 02/18/23 Range/Units (units unknown) (unknown) (unknown) (no date) (unknown) (unknown) 02/18/23 10:16 (units unknown) (unknown) (unknown) (no date) (unknown) (unknown) 02/18/23 10:28 (units unknown) (unknown) (unknown) (no date) (unknown) (unknown) 02/18/23 10:30 (units unknown) (unknown) (unknown) (no date) (unknown) (unknown) 02/18/23 13:24 (units unknown) (unknown) (unknown) (no date) (unknown) (unknown) 02/18/23 13:36 (units unknown) (unknown) (unknown) (no date) (unknown) (unknown) 02/18/23 15:22 (units unknown) (unknown) (unknown) (no date) (unknown) (unknown) 02/18/23 (units unknown) (unknown) (unknown) (no date) (unknown) (unknown) 1 applic TOPICAL DAILY PRN (Reason: Dry Skin) (units unknown) (unknown) (unknown) (no date) (unknown) (unknown) 1 drp OPHTHALMIC (EYE) DAILY (units unknown) (unknown) (unknown) (no date) (unknown) (unknown) 1 patch topical DAILY PRN (Reason: pain) Qty: 30 0RF (units unknown) (unknown) (unknown) (no date) (unknown) (unknown) 1 tab PO DAILY (units unknown) (unknown) (unknown) (no date) (unknown) (unknown) 10:16 10:16 10:16 (units unknown) (unknown) (unknown) (no date) (unknown) (unknown) 10:21 02/18/23 (units unknown) (unknown) (unknown) (no date) (unknown) (unknown) 10:22 02/18/23 (units unknown) (unknown) (unknown) (no date) (unknown) (unknown) 10:28 13:24 (units unknown) (unknown) (unknown) (no date) (unknown) (unknown) 10:30 02/18/23 (units unknown) (unknown) (unknown) (no date) (unknown) (unknown) 10:30 (units unknown) (unknown) (unknown) (no date) (unknown) (unknown) 10:45 02/18/23 (units unknown) (unknown) (unknown) (no date) (unknown) (unknown) 10:45 (units unknown) (unknown) (unknown) (no date) (unknown) (unknown) 11:00 02/18/23 (units unknown) (unknown) (unknown) (no date) (unknown) (unknown) 11:15 02/18/23 (units unknown) (unknown) (unknown) (no date) (unknown) (unknown) 11:15 (units unknown) (unknown) (unknown) (no date) (unknown) (unknown) 11:30 02/18/23 (units unknown) (unknown) (unknown) (no date) (unknown) (unknown) 11:30 (units unknown) (unknown) (unknown) (no date) (unknown) (unknown) 11:45 02/18/23 (units unknown) (unknown) (unknown) (no date) (unknown) (unknown) [address] [place] [address] (units unknown) (unknown) (unknown) (no date) (unknown) (unknown) 12:00 02/18/23 (units unknown) (unknown) (unknown) (no date) (unknown) (unknown) 12:00 (units unknown) (unknown) (unknown) (no date) (unknown) (unknown) 12:15 02/18/23 (units unknown) (unknown) (unknown) (no date) (unknown) (unknown) 12:15 (units unknown) (unknown) (unknown) (no date) (unknown) (unknown) 12:30 02/18/23 (units unknown) (unknown) (unknown) (no date) (unknown) (unknown) 12:45 02/18/23 (units unknown) (unknown) (unknown) (no date) (unknown) (unknown) 12:45 (units unknown) (unknown) (unknown) (no date) (unknown) (unknown) 13:00 02/18/23 (units unknown) (unknown) (unknown) (no date) (unknown) (unknown) 13:15 02/18/23 (units unknown) (unknown) (unknown) (no date) (unknown) (unknown) 13:15 (units unknown) (unknown) (unknown) (no date) (unknown) (unknown) 13:30 02/18/23 (units unknown) (unknown) (unknown) (no date) (unknown) (unknown) 13:30 (units unknown) (unknown) (unknown) (no date) (unknown) (unknown) 14:00 02/18/23 (units unknown) (unknown) (unknown) (no date) (unknown) (unknown) 14:30 (units unknown) (unknown) (unknown) (no date) (unknown) (unknown) 150 mg PO BID (units unknown) (unknown) (unknown) (no date) (unknown) (unknown) 20 mg PO DAILY (units unknown) (unknown) (unknown) (no date) (unknown) (unknown) 20 mg PO QPM (units unknown) (unknown) (unknown) (no date) (unknown) (unknown) 240 mg PO DAILY (units unknown) (unknown) (unknown) (no date) (unknown) (unknown) 400 mg PO TID Qty: 30 0RF (units unknown) (unknown) (unknown) (no date) (unknown) (unknown) 5 mg PO DAILY (units unknown) (unknown) (unknown) (no date) (unknown) (unknown) 50 mg PO Q8H PRN (Reason: pain) Qty: 10 0RF (units unknown) (unknown) (unknown) (no date) (unknown) (unknown) 87-year-old male with history of atrial fibrillation on Xarelto and diltiazem, (units unknown) (unknown) (unknown) (no date) (unknown) (unknown) ? (units unknown) (unknown) (unknown) (no date) (unknown) (unknown) ABDOMEN: Soft, nontender. Normoactive bowel sounds all 4 quadrants. No (units unknown) (unknown) (unknown) (no date) (unknown) (unknown) ABDOMEN: (units unknown) (unknown) (unknown) (no date) (unknown) (unknown) ALT (<50) IU/L (units unknown) (unknown) (unknown) (no date) (unknown) (unknown) ALT 28 (<50) IU/L (units unknown) (unknown) (unknown) (no date) (unknown) (unknown) APTT (26-36) SECONDS (units unknown) (unknown) (unknown) (no date) (unknown) (unknown) APTT 37 H (26-36) SECONDS (units unknown) (unknown) (unknown) (no date) (unknown) (unknown) AST (17-59) IU/L (units unknown) (unknown) (unknown) (no date) (unknown) (unknown) AST 30 (17-59) IU/L (units unknown) (unknown) (unknown) (no date) (unknown) (unknown) Abdomen/Pelvis CT (Signed) (units unknown) (unknown) (unknown) (no date) (unknown) (unknown) Abdominal Nodes:? No retroperitoneal or mesenteric adenopathy by size criteria.? (units unknown) (unknown) (unknown) (no date) (unknown) (unknown) Accession Number: [id number] ?? (units unknown) (unknown) (unknown) (no date) (unknown) (unknown) Acct:[id number] (units unknown) (unknown) (unknown) (no date) (unknown) (unknown) Adrenal Glands:? Unremarkable.? ? (units unknown) (unknown) (unknown) (no date) (unknown) (unknown) After the administration of intravenous contrast, axial sections acquired from (units unknown) (unknown) (unknown) (no date) (unknown) (unknown) Age/Sex: 87 / M (units unknown) (unknown) (unknown) (no date) (unknown) (unknown) Albumin (3.5-5.0) g/dL (units unknown) (unknown) (unknown) (no date) (unknown) (unknown) Albumin 3.4 L (3.5-5.0) g/dL (units unknown) (unknown) (unknown) (no date) (unknown) (unknown) Albumin/Globulin Ratio (1.0-2.8) (units unknown) (unknown) (unknown) (no date) (unknown) (unknown) Albumin/Globulin Ratio 1.0 (1.0-2.8) (units unknown) (unknown) (unknown) (no date) (unknown) (unknown) Alkaline Phosphatase (38-126) U/L (units unknown) (unknown) (unknown) (no date) (unknown) (unknown) Alkaline Phosphatase 87 (38-126) U/L (units unknown) (unknown) (unknown) (no date) (unknown) (unknown) Allergies (units unknown) (unknown) (unknown) (no date) (unknown) (unknown) Allergy/AdvReac Type Severity Reaction Status Date / Time (units unknown) (unknown) (unknown) (no date) (unknown) (unknown) OLINDA [place] [address] (units unknown) (unknown) (unknown) (no date) (unknown) (unknown) Antibody Screen Negative (units unknown) (unknown) (unknown) (no date) (unknown) (unknown) Antibody Screen (units unknown) (unknown) (unknown) (no date) (unknown) (unknown) Approved by: Jl Langford M.D. on 02/18/2023 at 15:06?? (units unknown) (unknown) (unknown) (no date) (unknown) (unknown) Asks that they reach out when ready for her to scope. (units unknown) (unknown) (unknown) (no date) (unknown) (unknown) Atrial flutter with variable AV block, occasionally ventricular paced rhythms. (units unknown) (unknown) (unknown) (no date) (unknown) (unknown) Attestation: I personally reviewed and interpreted this ECG as follows: (units unknown) (unknown) (unknown) (no date) (unknown) (unknown) BPH (benign prostatic hyperplasia) (units unknown) (unknown) (unknown) (no date) (unknown) (unknown) BUN (9-20) mg/dL (units unknown) (unknown) (unknown) (no date) (unknown) (unknown) BUN 15 (9-20) mg/dL (units unknown) (unknown) (unknown) (no date) (unknown) (unknown) BUN/Creatinine Ratio (6-22) (units unknown) (unknown) (unknown) (no date) (unknown) (unknown) BUN/Creatinine Ratio 14.3 (6-22) (units unknown) (unknown) (unknown) (no date) (unknown) (unknown) Baso # (Auto) (0-100) /uL (units unknown) (unknown) (unknown) (no date) (unknown) (unknown) Baso # (Auto) 100 (0-100) /uL (units unknown) (unknown) (unknown) (no date) (unknown) (unknown) Baso % (Auto) (0-2) % (units unknown) (unknown) (unknown) (no date) (unknown) (unknown) Baso % (Auto) 1.1 (0-2) % (units unknown) (unknown) (unknown) (no date) (unknown) (unknown) Bedside Urine Bilirubin - Negative (units unknown) (unknown) (unknown) (no date) (unknown) (unknown) Bedside Urine Glucose Negative (units unknown) (unknown) (unknown) (no date) (unknown) (unknown) Bedside Urine Ketone - Negative (units unknown) (unknown) (unknown) (no date) (unknown) (unknown) Bedside Urine Leukocytes +++ 500 (units unknown) (unknown) (unknown) (no date) (unknown) (unknown) Bedside Urine Nitrite - Negative (units unknown) (unknown) (unknown) (no date) (unknown) (unknown) Bedside Urine Occult Blood (units unknown) (unknown) (unknown) (no date) (unknown) (unknown) Bedside Urine Protein +/- 15 (units unknown) (unknown) (unknown) (no date) (unknown) (unknown) Bedside Urine Urobilinogen - Negative (units unknown) (unknown) (unknown) (no date) (unknown) (unknown) Bedside Urine pH 6 (units unknown) (unknown) (unknown) (no date) (unknown) (unknown) Biliary ducts:? Unremarkable.? ? (units unknown) (unknown) (unknown) (no date) (unknown) (unknown) Bladder:? Unremarkable.? ? (units unknown) (unknown) (unknown) (no date) (unknown) (unknown) Blood Pressure 100/59 L (units unknown) (unknown) (unknown) (no date) (unknown) (unknown) Blood Pressure 100/66 94/59 L (units unknown) (unknown) (unknown) (no date) (unknown) (unknown) Blood Pressure 87/56 L 92/55 L (units unknown) (unknown) (unknown) (no date) (unknown) (unknown) Blood Pressure 89/53 L 98/56 L (units unknown) (unknown) (unknown) (no date) (unknown) (unknown) Blood Pressure 91/53 L (units unknown) (unknown) (unknown) (no date) (unknown) (unknown) Blood Pressure 91/61 (units unknown) (unknown) (unknown) (no date) (unknown) (unknown) Blood Pressure 93/60 02/18/23 10:21 (units unknown) (unknown) (unknown) (no date) (unknown) (unknown) Blood Pressure 93/60 88/65 L (units unknown) (unknown) (unknown) (no date) (unknown) (unknown) Blood Pressure 94/56 L (units unknown) (unknown) (unknown) (no date) (unknown) (unknown) Blood Pressure 94/60 (units unknown) (unknown) (unknown) (no date) (unknown) (unknown) Blood Pressure 98/57 L (units unknown) (unknown) (unknown) (no date) (unknown) (unknown) Blood Type B Positive (units unknown) (unknown) (unknown) (no date) (unknown) (unknown) Blood Type (units unknown) (unknown) (unknown) (no date) (unknown) (unknown) Bones:? Unremarkable.? ? (units unknown) (unknown) (unknown) (no date) (unknown) (unknown) CARDIOVASCULAR: Irregularly irregular rate and rhythm without murmurs, rubs or (units unknown) (unknown) (unknown) (no date) (unknown) (unknown) COMPARISON:[facility], CT, CT CHEST ABD PEL W CON, 10/24/2022, 18:44.? (units unknown) (unknown) (unknown) (no date) (unknown) (unknown) COVID19 -Nasal RAPID Stat (units unknown) (unknown) (unknown) (no date) (unknown) (unknown) CT Scan Report (units unknown) (unknown) (unknown) (no date) (unknown) (unknown) CT abdomen pelvis w con Stat (units unknown) (unknown) (unknown) (no date) (unknown) (unknown) CT scan - abdomen/pelvis: (units unknown) (unknown) (unknown) (no date) (unknown) (unknown) Calcium (8.4-10.2) mg/dL (units unknown) (unknown) (unknown) (no date) (unknown) (unknown) Calcium 8.7 (8.4-10.2) mg/dL (units unknown) (unknown) (unknown) (no date) (unknown) (unknown) Carbon Dioxide (22-32) mmol/L (units unknown) (unknown) (unknown) (no date) (unknown) (unknown) Carbon Dioxide 25 (22-32) mmol/L (units unknown) (unknown) (unknown) (no date) (unknown) (unknown) Chief complaint: GI Bleed (units unknown) (unknown) (unknown) (no date) (unknown) (unknown) Chloride (98-107) mmol/L (units unknown) (unknown) (unknown) (no date) (unknown) (unknown) Chloride 107 (98-107) mmol/L (units unknown) (unknown) (unknown) (no date) (unknown) (unknown) Chronic anticoagulation (units unknown) (unknown) (unknown) (no date) (unknown) (unknown) Clinical Impression: (units unknown) (unknown) (unknown) (no date) (unknown) (unknown) Close (units unknown) (unknown) (unknown) (no date) (unknown) (unknown) Complete Blood Count AUTO DIFF Stat (units unknown) (unknown) (unknown) (no date) (unknown) (unknown) Complex-Vitamin B12 tablet) (units unknown) (unknown) (unknown) (no date) (unknown) (unknown) Comprehensive Metabolic Panel Stat (units unknown) (unknown) (unknown) (no date) (unknown) (unknown) Course (units unknown) (unknown) (unknown) (no date) (unknown) (unknown) Creatinine (0.66-1.25) mg/dL (units unknown) (unknown) (unknown) (no date) (unknown) (unknown) Creatinine 1.05 (0.66-1.25) mg/dL (units unknown) (unknown) (unknown) (no date) (unknown) (unknown) : 1935 Acct:[id number] (units unknown) (unknown) (unknown) (no date) (unknown) (unknown) : 1935 (units unknown) (unknown) (unknown) (no date) (unknown) (unknown) Date of Service: 02/18/23 (units unknown) (unknown) (unknown) (no date) (unknown) (unknown) Departure (units unknown) (unknown) (unknown) (no date) (unknown) (unknown) Dictated by: lJ Langford M.D. on 02/18/2023 at 15:02 ? ? (units unknown) (unknown) (unknown) (no date) (unknown) (unknown) Discharge Plan (units unknown) (unknown) (unknown) (no date) (unknown) (unknown) Discontinued Medications (units unknown) (unknown) (unknown) (no date) (unknown) (unknown) Documented By: [facility] (units unknown) (unknown) (unknown) (no date) (unknown) (unknown) Dr. Santana, hospitalist accepts for admission. He will be in contact with (units unknown) (unknown) (unknown) (no date) (unknown) (unknown) ECG Data (units unknown) (unknown) (unknown) (no date) (unknown) (unknown) ED Orders (units unknown) (unknown) (unknown) (no date) (unknown) (unknown) EKG-12 Lead Stat (units unknown) (unknown) (unknown) (no date) (unknown) (unknown) ER Physician: Natalie Hernandez D.O. (units unknown) (unknown) (unknown) (no date) (unknown) (unknown) EXTREMITIES: Normal range of motion, no clubbing or edema. Neurovascularly (units unknown) (unknown) (unknown) (no date) (unknown) (unknown) Emergency Report (units unknown) (unknown) (unknown) (no date) (unknown) (unknown) Eos # (Auto) (0-450) /uL (units unknown) (unknown) (unknown) (no date) (unknown) (unknown) Eos # (Auto) 100 (0-450) /uL (units unknown) (unknown) (unknown) (no date) (unknown) (unknown) Eos % (Auto) (2-4) % (units unknown) (unknown) (unknown) (no date) (unknown) (unknown) Eos % (Auto) 1.2 L (2-4) % (units unknown) (unknown) (unknown) (no date) (unknown) (unknown) Esterase (units unknown) (unknown) (unknown) (no date) (unknown) (unknown) Estimated GFR > 60 (>60) mL/min (units unknown) (unknown) (unknown) (no date) (unknown) (unknown) Estimated GFR (>60) mL/min (units unknown) (unknown) (unknown) (no date) (unknown) (unknown) Exam Narrative: (units unknown) (unknown) (unknown) (no date) (unknown) (unknown) Exam (units unknown) (unknown) (unknown) (no date) (unknown) (unknown) Extensive descending colonic and sigmoid colonic diverticulosis but without (units unknown) (unknown) (unknown) (no date) (unknown) (unknown) FINDINGS:? (units unknown) (unknown) (unknown) (no date) (unknown) (unknown) Family History (units unknown) (unknown) (unknown) (no date) (unknown) (unknown) Father No problems noted. (units unknown) (unknown) (unknown) (no date) (unknown) (unknown) For (units unknown) (unknown) (unknown) (no date) (unknown) (unknown) [place]. (units unknown) (unknown) (unknown) (no date) (unknown) (unknown) GENERAL: Alert and oriented x three, mild distress. (units unknown) (unknown) (unknown) (no date) (unknown) (unknown) GI bleed (units unknown) (unknown) (unknown) (no date) (unknown) (unknown) : No CVA tenderness (units unknown) (unknown) (unknown) (no date) (unknown) (unknown) Gallbladder:? The gallbladder contains numerous peripherally faintly calcified (units unknown) (unknown) (unknown) (no date) (unknown) (unknown) General (units unknown) (unknown) (unknown) (no date) (unknown) (unknown) Globulin (1.7-4.1) g/dL (units unknown) (unknown) (unknown) (no date) (unknown) (unknown) Globulin 3.4 (1.7-4.1) g/dL (units unknown) (unknown) (unknown) (no date) (unknown) (unknown) Glucose (80-110) mg/dL (units unknown) (unknown) (unknown) (no date) (unknown) (unknown) Glucose 136 H (80-110) mg/dL (units unknown) (unknown) (unknown) (no date) (unknown) (unknown) HEENT: Head normocephalic, atraumatic, EOMI, pale conjunctiva. Pupils reactive, (units unknown) (unknown) (unknown) (no date) (unknown) (unknown) HPI - GI Bleed (units unknown) (unknown) (unknown) (no date) (unknown) (unknown) HPI Narrative: (units unknown) (unknown) (unknown) (no date) (unknown) (unknown) Jl Langford (units unknown) (unknown) (unknown) (no date) (unknown) (unknown) Hct (41-53) % (units unknown) (unknown) (unknown) (no date) (unknown) (unknown) Hct 35.6 L (41-53) % (units unknown) (unknown) (unknown) (no date) (unknown) (unknown) He has been using a walker and wheelchair intermittently and his son was picking (units unknown) (unknown) (unknown) (no date) (unknown) (unknown) Heart:? No significant findings. (units unknown) (unknown) (unknown) (no date) (unknown) (unknown) Hemoglobin is 11.8 he was 13.6 on October 25, 2022 normal platelets today normal (units unknown) (unknown) (unknown) (no date) (unknown) (unknown) Hgb (13.5-17.5) g/dL (units unknown) (unknown) (unknown) (no date) (unknown) (unknown) Hgb 11.8 L (13.5-17.5) g/dL (units unknown) (unknown) (unknown) (no date) (unknown) (unknown) History of Present Illness (units unknown) (unknown) (unknown) (no date) (unknown) (unknown) History of permanent cardiac pacemaker placement (units unknown) (unknown) (unknown) (no date) (unknown) (unknown) Home Medications (units unknown) (unknown) (unknown) (no date) (unknown) (unknown) Hospital, CT, CT PEL WO CON, 12/25/2022, 14:06. (units unknown) (unknown) (unknown) (no date) (unknown) (unknown) IMPRESSION:? Numerous small to moderate-sized gallstones within the gallbladder (units unknown) (unknown) (unknown) (no date) (unknown) (unknown) INDICATIONS:? gi bleed, likely lower, weight loss (units unknown) (unknown) (unknown) (no date) (unknown) (unknown) INR (0.9-1.3) (units unknown) (unknown) (unknown) (no date) (unknown) (unknown) INR 1.7 H (0.9-1.3) (units unknown) (unknown) (unknown) (no date) (unknown) (unknown) Image quality:? Excellent.? (units unknown) (unknown) (unknown) (no date) (unknown) (unknown) Imaging Data (units unknown) (unknown) (unknown) (no date) (unknown) (unknown) Imaging Reports (units unknown) (unknown) (unknown) (no date) (unknown) (unknown) Initial Vital Signs (units unknown) (unknown) (unknown) (no date) (unknown) (unknown) Initial Vital Signs: (units unknown) (unknown) (unknown) (no date) (unknown) (unknown) Interpretation: (units unknown) (unknown) (unknown) (no date) (unknown) (unknown) [address] [address] (units unknown) (unknown) (unknown) (no date) (unknown) (unknown) [facility] (units unknown) (unknown) (unknown) (no date) (unknown) (unknown) [place] (units unknown) (unknown) (unknown) (no date) (unknown) (unknown) Kidneys and Ureters:? Unremarkable.? ? (units unknown) (unknown) (unknown) (no date) (unknown) (unknown) Lab Data (units unknown) (unknown) (unknown) (no date) (unknown) (unknown) Lab Results (units unknown) (unknown) (unknown) (no date) (unknown) (unknown) Labs: (units unknown) (unknown) (unknown) (no date) (unknown) (unknown) Last Admin: 02/18/23 11:36 Dose: 80 mg (units unknown) (unknown) (unknown) (no date) (unknown) (unknown) Last Admin: 02/18/23 14:06 Dose: 150 mls/hr (units unknown) (unknown) (unknown) (no date) (unknown) (unknown) Launch?Image (units unknown) (unknown) (unknown) (no date) (unknown) (unknown) Limitations: no limitations (units unknown) (unknown) (unknown) (no date) (unknown) (unknown) Liver:? Unremarkable.? ? (units unknown) (unknown) (unknown) (no date) (unknown) (unknown) Loc: ED (units unknown) (unknown) (unknown) (no date) (unknown) (unknown) [place] 0.01 % Drops (units unknown) (unknown) (unknown) (no date) (unknown) (unknown) Lung bases:? Unremarkable. (units unknown) (unknown) (unknown) (no date) (unknown) (unknown) Lymph # (Auto) (8469-2969) /uL (units unknown) (unknown) (unknown) (no date) (unknown) (unknown) Lymph # (Auto) 1100 (0821-7920) /uL (units unknown) (unknown) (unknown) (no date) (unknown) (unknown) Lymph % (Auto) (25-40) % (units unknown) (unknown) (unknown) (no date) (unknown) (unknown) Lymph % (Auto) 15.0 L (25-40) % (units unknown) (unknown) (unknown) (no date) (unknown) (unknown) MCH (26-34) PG (units unknown) (unknown) (unknown) (no date) (unknown) (unknown) MCH 31.3 (26-34) PG (units unknown) (unknown) (unknown) (no date) (unknown) (unknown) MCHC (30-36) % (units unknown) (unknown) (unknown) (no date) (unknown) (unknown) MCHC 33.1 (30-36) % (units unknown) (unknown) (unknown) (no date) (unknown) (unknown) MCV (80-100) fL (units unknown) (unknown) (unknown) (no date) (unknown) (unknown) MCV 94.6 (80-100) fL (units unknown) (unknown) (unknown) (no date) (unknown) (unknown) MDM - GI Bleed (units unknown) (unknown) (unknown) (no date) (unknown) (unknown) MDM Narrative (units unknown) (unknown) (unknown) (no date) (unknown) (unknown) MR#: [id number] (units unknown) (unknown) (unknown) (no date) (unknown) (unknown) Medical History (units unknown) (unknown) (unknown) (no date) (unknown) (unknown) Medical decision making narrative: (units unknown) (unknown) (unknown) (no date) (unknown) (unknown) Medication Instructions Recorded Confirmed (units unknown) (unknown) (unknown) (no date) (unknown) (unknown) Medication Instructions Recorded (units unknown) (unknown) (unknown) (no date) (unknown) (unknown) Miscellaneous,Doctor , MD [Primary Care Provider] (units unknown) (unknown) (unknown) (no date) (unknown) (unknown) Miscellaneous: No hernias are seen.? ? Note is made of moderately severe (units unknown) (unknown) (unknown) (no date) (unknown) (unknown) Mode of arrival: EMS (units unknown) (unknown) (unknown) (no date) (unknown) (unknown) [place] # (Auto) (0-900) /uL (units unknown) (unknown) (unknown) (no date) (unknown) (unknown) [place] # (Auto) 600 (0-900) /uL (units unknown) (unknown) (unknown) (no date) (unknown) (unknown) [place] % (Auto) (3-14) % (units unknown) (unknown) (unknown) (no date) (unknown) (unknown) [place] % (Auto) 8.3 (3-14) % (units unknown) (unknown) (unknown) (no date) (unknown) (unknown) Mother Cancer (units unknown) (unknown) (unknown) (no date) (unknown) (unknown) NECK: Supple, full range of motion (units unknown) (unknown) (unknown) (no date) (unknown) (unknown) NEUROLOGICAL: Cranial nerves II through XII grossly intact. Moving all (units unknown) (unknown) (unknown) (no date) (unknown) (unknown) Narrative (units unknown) (unknown) (unknown) (no date) (unknown) (unknown) Neut # (Auto) (7907-9240) /uL (units unknown) (unknown) (unknown) (no date) (unknown) (unknown) Neut # (Auto) 5600 (9029-2703) /uL (units unknown) (unknown) (unknown) (no date) (unknown) (unknown) Neut % (Auto) (50-75) % (units unknown) (unknown) (unknown) (no date) (unknown) (unknown) Neut % (Auto) 74.4 (50-75) % (units unknown) (unknown) (unknown) (no date) (unknown) (unknown) No Action (units unknown) (unknown) (unknown) (no date) (unknown) (unknown) No Known Drug Allergies Allergy Verified 02/18/23 10:27 (units unknown) (unknown) (unknown) (no date) (unknown) (unknown) No active bleeding at time of CT scanning found, no mass lesion seen within the (units unknown) (unknown) (unknown) (no date) (unknown) (unknown) Ondansetron HCl (Ondansetron 4 Mg/2 Ml Inj) 4 mg IV NOW PRN (units unknown) (unknown) (unknown) (no date) (unknown) (unknown) Ordered: (units unknown) (unknown) (unknown) (no date) (unknown) (unknown) Ordering Provider: Natalie Hernandez D.O. (units unknown) (unknown) (unknown) (no date) (unknown) (unknown) Orders (units unknown) (unknown) (unknown) (no date) (unknown) (unknown) Osteoporosis (units unknown) (unknown) (unknown) (no date) (unknown) (unknown) Oxygen Delivery Method Room Air 02/18/23 10:21 (units unknown) (unknown) (unknown) (no date) (unknown) (unknown) Oxygen Delivery Method Room Air (units unknown) (unknown) (unknown) (no date) (unknown) (unknown) Oxygen Delivery Method (units unknown) (unknown) (unknown) (no date) (unknown) (unknown) PELVIS: (units unknown) (unknown) (unknown) (no date) (unknown) (unknown) PRN Reason: Nausea And Vomiting (units unknown) (unknown) (unknown) (no date) (unknown) (unknown) PROCEDURE:? CT ABDOMEN PELVIS W CON (units unknown) (unknown) (unknown) (no date) (unknown) (unknown) PT (10.1-12.7) SECONDS (units unknown) (unknown) (unknown) (no date) (unknown) (unknown) PT 20.0 H (10.1-12.7) SECONDS (units unknown) (unknown) (unknown) (no date) (unknown) (unknown) PTT Partial Thromboplastin Rodriguez Stat (units unknown) (unknown) (unknown) (no date) (unknown) (unknown) Pancreas:? Unremarkable.? ? (units unknown) (unknown) (unknown) (no date) (unknown) (unknown) Pantoprazole Sodium (Pantoprazole 40 Mg Vial) 80 mg IV NOW ONE (units unknown) (unknown) (unknown) (no date) (unknown) (unknown) Patient Disposition: Admitted As Inpatient (units unknown) (unknown) (unknown) (no date) (unknown) (unknown) Patient History (units unknown) (unknown) (unknown) (no date) (unknown) (unknown) Patient is open to blood transfusion. (units unknown) (unknown) (unknown) (no date) (unknown) (unknown) Patient: Jonny Neely MR#: [id number] (units unknown) (unknown) (unknown) (no date) (unknown) (unknown) Patient: Jonny Neely (units unknown) (unknown) (unknown) (no date) (unknown) (unknown) Pelvic Nodes: No enlarged lymph nodes.? (units unknown) (unknown) (unknown) (no date) (unknown) (unknown) Pelvic Organs:? Unremarkable.? ? (units unknown) (unknown) (unknown) (no date) (unknown) (unknown) Peritoneum:? No abnormal intraperitoneal fluid.? No free air.? (units unknown) (unknown) (unknown) (no date) (unknown) (unknown) Plt Count (150-400) X103/uL (units unknown) (unknown) (unknown) (no date) (unknown) (unknown) Plt Count 183 (150-400) X103/uL (units unknown) (unknown) (unknown) (no date) (unknown) (unknown) Point of Care Testing (units unknown) (unknown) (unknown) (no date) (unknown) (unknown) Potassium (3.4-5.1) mmol/L (units unknown) (unknown) (unknown) (no date) (unknown) (unknown) Potassium 3.6 (3.4-5.1) mmol/L (units unknown) (unknown) (unknown) (no date) (unknown) (unknown) Prescriptions: (units unknown) (unknown) (unknown) (no date) (unknown) (unknown) Previous Rx's (units unknown) (unknown) (unknown) (no date) (unknown) (unknown) Prior ECG tracings: available for review (units unknown) (unknown) (unknown) (no date) (unknown) (unknown) Procedure: CT abdomen pelvis w con (units unknown) (unknown) (unknown) (no date) (unknown) (unknown) Prothrombin Time INR Stat (units unknown) (unknown) (unknown) (no date) (unknown) (unknown) Pulse Oximetry 96 (units unknown) (unknown) (unknown) (no date) (unknown) (unknown) Pulse Oximetry 97 96 (units unknown) (unknown) (unknown) (no date) (unknown) (unknown) Pulse Oximetry 97 97 (units unknown) (unknown) (unknown) (no date) (unknown) (unknown) Pulse Oximetry 97 (units unknown) (unknown) (unknown) (no date) (unknown) (unknown) Pulse Oximetry 98 02/18/23 10:21 (units unknown) (unknown) (unknown) (no date) (unknown) (unknown) Pulse Oximetry 98 97 (units unknown) (unknown) (unknown) (no date) (unknown) (unknown) Pulse Oximetry 98 98 (units unknown) (unknown) (unknown) (no date) (unknown) (unknown) Pulse Oximetry 99 98 (units unknown) (unknown) (unknown) (no date) (unknown) (unknown) Pulse Oximetry 99 (units unknown) (unknown) (unknown) (no date) (unknown) (unknown) Pulse Rate 101 H 81 (units unknown) (unknown) (unknown) (no date) (unknown) (unknown) Pulse Rate 72 69 (units unknown) (unknown) (unknown) (no date) (unknown) (unknown) Pulse Rate 74 (units unknown) (unknown) (unknown) (no date) (unknown) (unknown) Pulse Rate 75 (units unknown) (unknown) (unknown) (no date) (unknown) (unknown) Pulse Rate 77 (units unknown) (unknown) (unknown) (no date) (unknown) (unknown) Pulse Rate 78 74 (units unknown) (unknown) (unknown) (no date) (unknown) (unknown) Pulse Rate 80 76 (units unknown) (unknown) (unknown) (no date) (unknown) (unknown) Pulse Rate 80 (units unknown) (unknown) (unknown) (no date) (unknown) (unknown) Pulse Rate 81 02/18/23 10:21 (units unknown) (unknown) (unknown) (no date) (unknown) (unknown) Pulse Rate 81 73 (units unknown) (unknown) (unknown) (no date) (unknown) (unknown) Pulse Rate 81 98 H (units unknown) (unknown) (unknown) (no date) (unknown) (unknown) RBC (4.5-5.9) X106/uL (units unknown) (unknown) (unknown) (no date) (unknown) (unknown) RBC 3.76 L (4.5-5.9) X106/uL (units unknown) (unknown) (unknown) (no date) (unknown) (unknown) RDW (11.6-14.8) % (units unknown) (unknown) (unknown) (no date) (unknown) (unknown) RDW 16.6 H (11.6-14.8) % (units unknown) (unknown) (unknown) (no date) (unknown) (unknown) RESPIRATORY: Breath sounds equal bilaterally, no wheezes rales or rhonchi. No (units unknown) (unknown) (unknown) (no date) (unknown) (unknown) ROS Unobtainable: All systems reviewed + are unremarkable except as noted in HPI (units unknown) (unknown) (unknown) (no date) (unknown) (unknown) Radiologist's Impression: (units unknown) (unknown) (unknown) (no date) (unknown) (unknown) Referrals: (units unknown) (unknown) (unknown) (no date) (unknown) (unknown) Related Data (units unknown) (unknown) (unknown) (no date) (unknown) (unknown) Respiratory Rate 12 15 (units unknown) (unknown) (unknown) (no date) (unknown) (unknown) Respiratory Rate 13 (units unknown) (unknown) (unknown) (no date) (unknown) (unknown) Respiratory Rate 15 (units unknown) (unknown) (unknown) (no date) (unknown) (unknown) Respiratory Rate 16 02/18/23 10:21 (units unknown) (unknown) (unknown) (no date) (unknown) (unknown) Respiratory Rate 16 15 (units unknown) (unknown) (unknown) (no date) (unknown) (unknown) Respiratory Rate 18 13 (units unknown) (unknown) (unknown) (no date) (unknown) (unknown) Respiratory Rate 20 19 (units unknown) (unknown) (unknown) (no date) (unknown) (unknown) Respiratory Rate 21 14 (units unknown) (unknown) (unknown) (no date) (unknown) (unknown) Respiratory Rate 21 16 (units unknown) (unknown) (unknown) (no date) (unknown) (unknown) Respiratory Rate 22 18 (units unknown) (unknown) (unknown) (no date) (unknown) (unknown) Respiratory Rate 22 (units unknown) (unknown) (unknown) (no date) (unknown) (unknown) Review of Systems (units unknown) (unknown) (unknown) (no date) (unknown) (unknown) Right bundle. Rate of 83 QRS of 124 QTC of 434. Patient has prior EKG is not (units unknown) (unknown) (unknown) (no date) (unknown) (unknown) Rx Instructions: (units unknown) (unknown) (unknown) (no date) (unknown) (unknown) SKIN: Warm, dry, no petechiae, no rashes or lesions. (units unknown) (unknown) (unknown) (no date) (unknown) (unknown) Signed By: (units unknown) (unknown) (unknown) (no date) (unknown) (unknown) Signed (units unknown) (unknown) (unknown) (no date) (unknown) (unknown) Smoking Status: Never smoker (units unknown) (unknown) (unknown) (no date) (unknown) (unknown) Social History (units unknown) (unknown) (unknown) (no date) (unknown) (unknown) Sodium (137-145) mmol/L (units unknown) (unknown) (unknown) (no date) (unknown) (unknown) Sodium 139 (137-145) mmol/L (units unknown) (unknown) (unknown) (no date) (unknown) (unknown) Sodium Chloride (Normal Saline 0.9%) 1,000 mls @ 150 mls/hr IV CONT KEON (units unknown) (unknown) (unknown) (no date) (unknown) (unknown) Source: patient and EMS (units unknown) (unknown) (unknown) (no date) (unknown) (unknown) Spleen:? Unremarkable.? ? (units unknown) (unknown) (unknown) (no date) (unknown) (unknown) Stated complaint: Possible GI bleed (units unknown) (unknown) (unknown) (no date) (unknown) (unknown) Stomach and Bowel:? Stomach, small bowel loops, and colon are unremarkable.? (units unknown) (unknown) (unknown) (no date) (unknown) (unknown) Stool Occult Blood Positive (units unknown) (unknown) (unknown) (no date) (unknown) (unknown) Stop: 02/18/23 10:19 (units unknown) (unknown) (unknown) (no date) (unknown) (unknown) Substance Use Type: does not use (units unknown) (unknown) (unknown) (no date) (unknown) (unknown) Surgical History (units unknown) (unknown) (unknown) (no date) (unknown) (unknown) TECHNIQUE:? (units unknown) (unknown) (unknown) (no date) (unknown) (unknown) Temperature 98.7 F 02/18/23 10:21 (units unknown) (unknown) (unknown) (no date) (unknown) (unknown) Temperature 98.7 F (units unknown) (unknown) (unknown) (no date) (unknown) (unknown) Temperature (units unknown) (unknown) (unknown) (no date) (unknown) (unknown) This is a 87-year-old male who presents with potential GI bleed. Patient is (units unknown) (unknown) (unknown) (no date) (unknown) (unknown) Time Seen by Provider: 02/18/23 12:57 (units unknown) (unknown) (unknown) (no date) (unknown) (unknown) Total Bilirubin (0.2-1.3) mg/dL (units unknown) (unknown) (unknown) (no date) (unknown) (unknown) Total Bilirubin 0.6 (0.2-1.3) mg/dL (units unknown) (unknown) (unknown) (no date) (unknown) (unknown) Total Protein (6.3-8.2) g/dL (units unknown) (unknown) (unknown) (no date) (unknown) (unknown) Total Protein 6.8 (6.3-8.2) g/dL (units unknown) (unknown) (unknown) (no date) (unknown) (unknown) Type and Screen Stat (units unknown) (unknown) (unknown) (no date) (unknown) (unknown) Ur Culture Indicated? Specimen cultured (units unknown) (unknown) (unknown) (no date) (unknown) (unknown) Ur Culture Indicated? (units unknown) (unknown) (unknown) (no date) (unknown) (unknown) Ur Squamous Epith Cells (0-5/HPF) (units unknown) (unknown) (unknown) (no date) (unknown) (unknown) Ur Squamous Epith Cells None seen (0-5/HPF) (units unknown) (unknown) (unknown) (no date) (unknown) (unknown) Urine Bacteria (None) (units unknown) (unknown) (unknown) (no date) (unknown) (unknown) Urine Bacteria Many (>30) H (None) (units unknown) (unknown) (unknown) (no date) (unknown) (unknown) Urine Culture Stat (units unknown) (unknown) (unknown) (no date) (unknown) (unknown) Urine Dip (units unknown) (unknown) (unknown) (no date) (unknown) (unknown) Urine Microscopic Stat (units unknown) (unknown) (unknown) (no date) (unknown) (unknown) Urine RBC (0-5/HPF) (units unknown) (unknown) (unknown) (no date) (unknown) (unknown) Urine RBC 0-1/hpf (0-5/HPF) (units unknown) (unknown) (unknown) (no date) (unknown) (unknown) Urine Specific [place] 1.015 (units unknown) (unknown) (unknown) (no date) (unknown) (unknown) Urine WBC >100/hpf H (0-5/HPF) (units unknown) (unknown) (unknown) (no date) (unknown) (unknown) Urine WBC (0-5/HPF) (units unknown) (unknown) (unknown) (no date) (unknown) (unknown) Ventral Wall: ? No hernias.? (units unknown) (unknown) (unknown) (no date) (unknown) (unknown) Vessels:? Aorta and inferior vena cava are normal in size.? (units unknown) (unknown) (unknown) (no date) (unknown) (unknown) Vital Signs - 8 hr (units unknown) (unknown) (unknown) (no date) (unknown) (unknown) Vital Signs (units unknown) (unknown) (unknown) (no date) (unknown) (unknown) Vital signs: (units unknown) (unknown) (unknown) (no date) (unknown) (unknown) WBC (4.5-11.0) X103/uL (units unknown) (unknown) (unknown) (no date) (unknown) (unknown) WBC 7.6 (4.5-11.0) X103/uL (units unknown) (unknown) (unknown) (no date) (unknown) (unknown) Xarelto 20 mg Tablet (units unknown) (unknown) (unknown) (no date) (unknown) (unknown) [Embedded Image Not Available] (units unknown) (unknown) (unknown) (no date) (unknown) (unknown) acute diverticulitis. (units unknown) (unknown) (unknown) (no date) (unknown) (unknown) adjustment (units unknown) (unknown) (unknown) (no date) (unknown) (unknown) alcohol intake frequency: 0-2 drinks per day (units unknown) (unknown) (unknown) (no date) (unknown) (unknown) alcohol intake: current (units unknown) (unknown) (unknown) (no date) (unknown) (unknown) along with blackish discolored stool so Protonix 80 mg was ordered, gentle (units unknown) (unknown) (unknown) (no date) (unknown) (unknown) and below (units unknown) (unknown) (unknown) (no date) (unknown) (unknown) and he seems a little gone so CT abdomen pelvis was obtained, shows gallstones, (units unknown) (unknown) (unknown) (no date) (unknown) (unknown) bases to the pubic symphysis.? Coronal and sagittal reformats were performed.? (units unknown) (unknown) (unknown) (no date) (unknown) (unknown) biliary (units unknown) (unknown) (unknown) (no date) (unknown) (unknown) bimatoprost 0.01 % eye drops 1 drp ophthalmic (eye) DAILY 10/24/22 10/24/22 (units unknown) (unknown) (unknown) (no date) (unknown) (unknown) black stool present on rectal exam. Positive for Hemoccult. (units unknown) (unknown) (unknown) (no date) (unknown) (unknown) blunt his tachycardia response. Patient's family has noted a lot of weight loss (units unknown) (unknown) (unknown) (no date) (unknown) (unknown) bupropion HCl 150 mg Tablet Sustained-Release 12 Hr (units unknown) (unknown) (unknown) (no date) (unknown) (unknown) bupropion HCl 150 mg tablet,12 hr 150 mg PO BID 10/24/22 10/24/22 (units unknown) (unknown) (unknown) (no date) (unknown) (unknown) but type and screen was ordered with plan to transfuse if needed. Patient is (units unknown) (unknown) (unknown) (no date) (unknown) (unknown) capsule,extended release 24 hr (units unknown) (unknown) (unknown) (no date) (unknown) (unknown) chest pain or shortness of breath. Patient states he is not had GI bleeds in (units unknown) (unknown) (unknown) (no date) (unknown) (unknown) colonic and sigmoid colonic diverticulosis but no definite acute diverticulitis (units unknown) (unknown) (unknown) (no date) (unknown) (unknown) colonic mass is found.? (units unknown) (unknown) (unknown) (no date) (unknown) (unknown) definite (units unknown) (unknown) (unknown) (no date) (unknown) (unknown) denies any urinary symptoms no hematuria, dysuria, urgency or frequency. Denies (units unknown) (unknown) (unknown) (no date) (unknown) (unknown) descending left (units unknown) (unknown) (unknown) (no date) (unknown) (unknown) diarrhea but did have stool today. He is not had similar in the past. He (units unknown) (unknown) (unknown) (no date) (unknown) (unknown) diltiazem HCl 240 mg 240 mg PO DAILY 10/24/22 10/24/22 (units unknown) (unknown) (unknown) (no date) (unknown) (unknown) diltiazem HCl 240 mg Capsule,Extended Release 24hr (units unknown) (unknown) (unknown) (no date) (unknown) (unknown) distention is associated, however.? ? (units unknown) (unknown) (unknown) (no date) (unknown) (unknown) diverticulosis but no diverticulitis or source of bleed. Patient has dark red (units unknown) (unknown) (unknown) (no date) (unknown) (unknown) dorzolamide 22.3 mg-timolol 6.8 1 drp ophthalmic (eye) DAILY 10/24/22 10/24/22 (units unknown) (unknown) (unknown) (no date) (unknown) (unknown) dorzolamide-timolol 22.3-6.8 mg/mL Drops (units unknown) (unknown) (unknown) (no date) (unknown) (unknown) ea (units unknown) (unknown) (unknown) (no date) (unknown) (unknown) extremities (units unknown) (unknown) (unknown) (no date) (unknown) (unknown) face symmetric, moist mucous membranes (units unknown) (unknown) (unknown) (no date) (unknown) (unknown) fevers or chills. No nausea or vomiting. He denies any lightheadedness. No (units unknown) (unknown) (unknown) (no date) (unknown) (unknown) finasteride 5 mg Tablet (units unknown) (unknown) (unknown) (no date) (unknown) (unknown) finasteride 5 mg tablet 5 mg PO DAILY 10/24/22 10/24/22 (units unknown) (unknown) (unknown) (no date) (unknown) (unknown) fluids and case discussed with Dr. Altman, general surgery for consultation. (units unknown) (unknown) (unknown) (no date) (unknown) (unknown) gabapentin 400 mg capsule 400 mg PO TID #30 caps 12/04/22 (units unknown) (unknown) (unknown) (no date) (unknown) (unknown) gabapentin 400 mg capsule (units unknown) (unknown) (unknown) (no date) (unknown) (unknown) gallops. No JVD. No swelling bilateral lower extremities. (units unknown) (unknown) (unknown) (no date) (unknown) (unknown) gallstones, small to moderate in size.? No definite acute cholecystitis or (units unknown) (unknown) (unknown) (no date) (unknown) (unknown) guarding or rebound, rigidity, no mass, patient has a large amount of red and (units unknown) (unknown) (unknown) (no date) (unknown) (unknown) has had a significant decrease in his weight loss over the past several months. (units unknown) (unknown) (unknown) (no date) (unknown) (unknown) him up from [facility] who rehab today to take him home. He notes that he has a is (units unknown) (unknown) (unknown) (no date) (unknown) (unknown) his leg pain and this significantly improved his symptoms. No tobacco, alcohol (units unknown) (unknown) (unknown) (no date) (unknown) (unknown) household members: none and other (units unknown) (unknown) (unknown) (no date) (unknown) (unknown) hypotensive he states this is his normal blood pressure, on visits in December he (units unknown) (unknown) (unknown) (no date) (unknown) (unknown) intact (units unknown) (unknown) (unknown) (no date) (unknown) (unknown) it was more dark blood and not bright red. He denies abdominal back or flank (units unknown) (unknown) (unknown) (no date) (unknown) (unknown) last night everything was fine he had a very dark bloody stool today. He states (units unknown) (unknown) (unknown) (no date) (unknown) (unknown) leave on most painful area for up to 12 hrs (units unknown) (unknown) (unknown) (no date) (unknown) (unknown) lidocaine 5 % adhesive patch,medicated (units unknown) (unknown) (unknown) (no date) (unknown) (unknown) lidocaine 5 % topical patch 1 patch topical DAILY PRN pain #30 12/04/22 (units unknown) (unknown) (unknown) (no date) (unknown) (unknown) lumen but (units unknown) (unknown) (unknown) (no date) (unknown) (unknown) mg/mL eye drops (units unknown) (unknown) (unknown) (no date) (unknown) (unknown) must administer with evening meal (units unknown) (unknown) (unknown) (no date) (unknown) (unknown) normal LFTs and electrolytes. INR is 1.7. Patient is not currently symptomatic (units unknown) (unknown) (unknown) (no date) (unknown) (unknown) not tachycardic accept for initially 98-100 but is on diltiazem which might (units unknown) (unknown) (unknown) (no date) (unknown) (unknown) of mA and/or kV according to patient size.? (units unknown) (unknown) (unknown) (no date) (unknown) (unknown) omeprazole 20 mg Capsule,Delayed Release(Dr/Ec) (units unknown) (unknown) (unknown) (no date) (unknown) (unknown) omeprazole 20 mg capsule,delayed 20 mg PO DAILY 10/24/22 10/24/22 (units unknown) (unknown) (unknown) (no date) (unknown) (unknown) or illicit. No known drug allergies. Dr. Booth is his primary care physician. (units unknown) (unknown) (unknown) (no date) (unknown) (unknown) or (units unknown) (unknown) (unknown) (no date) (unknown) (unknown) paced but otherwise no other ST segments noted. (units unknown) (unknown) (unknown) (no date) (unknown) (unknown) pain. He denies any rectal pain. States he has not been having frequent (units unknown) (unknown) (unknown) (no date) (unknown) (unknown) radiation dose reduction, the following was used:? automated exposure control, (units unknown) (unknown) (unknown) (no date) (unknown) (unknown) recent bone that had injection in significant improvement of his pain and (units unknown) (unknown) (unknown) (no date) (unknown) (unknown) release (units unknown) (unknown) (unknown) (no date) (unknown) (unknown) right eye (units unknown) (unknown) (unknown) (no date) (unknown) (unknown) rivaroxaban 20 mg tablet (Xarelto) 20 mg PO QPM 10/24/22 10/24/22 (units unknown) (unknown) (unknown) (no date) (unknown) (unknown) setting up home health care for the patient as well. Son also notes the patient (units unknown) (unknown) (unknown) (no date) (unknown) (unknown) sustained-release (units unknown) (unknown) (unknown) (no date) (unknown) (unknown) tachypnea or accessory muscle use. (units unknown) (unknown) (unknown) (no date) (unknown) (unknown) tamsulosin 0.4 mg Capsule (units unknown) (unknown) (unknown) (no date) (unknown) (unknown) tamsulosin 0.4 mg capsule 0.4 mg PO BEDTIME 10/24/22 10/24/22 (units unknown) (unknown) (unknown) (no date) (unknown) (unknown) the lung (units unknown) (unknown) (unknown) (no date) (unknown) (unknown) the past. Patient denies any surgeries he states he did have an injection for (units unknown) (unknown) (unknown) (no date) (unknown) (unknown) topical ointment (units unknown) (unknown) (unknown) (no date) (unknown) (unknown) tramadol 50 mg tablet 50 mg PO Q8H PRN pain #10 tabs 12/04/22 (units unknown) (unknown) (unknown) (no date) (unknown) (unknown) tramadol 50 mg tablet 50 mg PO Q8H PRN pain #10 tabs 12/25/22 (units unknown) (unknown) (unknown) (no date) (unknown) (unknown) tramadol 50 mg tablet (units unknown) (unknown) (unknown) (no date) (unknown) (unknown) triamcinolone acetonide 0.1 % 1 applic topical DAILY PRN Dry Skin 10/24/22 (units unknown) (unknown) (unknown) (no date) (unknown) (unknown) triamcinolone acetonide 0.1 % Ointment (units unknown) (unknown) (unknown) (no date) (unknown) (unknown) visualized colon. (units unknown) (unknown) (unknown) (no date) (unknown) (unknown) vitamin B complex (B 1 tab PO DAILY 10/24/22 10/24/22 (units unknown) (unknown) (unknown) (no date) (unknown) (unknown) vitamin B complex [B Complex-Vitamin B12] Tablet (units unknown) (unknown) (unknown) (no date) (unknown) (unknown) was 120-117, patient's son is not sure. He notes he has lost a lot of weight. (units unknown) (unknown) (unknown) (no date) (unknown) (unknown) weakness but had just been discharged from rehab for debility. Patient states (units unknown) (unknown) (unknown) (no date) (unknown) (unknown) white count but is anticoagulated on Xarelto. Creatinine is 1.05 BUN is 15, (units unknown) (unknown) (unknown) (no date) (unknown) (unknown) without evidence of acute cholecystitis. (units unknown) (unknown) Result panel 127 (unknown) (no date) (unknown) (unknown) POSITIVE (units unknown) (unknown) (unknown) (no date) (unknown) (unknown) POSITIVE (units unknown) (unknown) Social History date description facility 2022-12-04 00:00 Never smoked tobacco (finding) [facility] 2022-12-25 00:00 Never smoked tobacco (finding) [facility] Vital Signs date measurement value units 2022-12-04 00:00 BMI 22.8 kg/m2 2022-12-04 00:00 BP_diastolic 63 mmHg 2022-12-04 00:00 BP_systolic 129 mmHg 2022-12-04 00:00 heart_rate 75 /min 2022-12-04 00:00 height_metric 172.72 cm 2022-12-04 00:00 height_standard 68 in 2022-12-04 00:00 o2_saturation 96 % 2022-12-04 00:00 respiration_rate 18 /min 2022-12-04 00:00 temperature_metric 36.11 C 2022-12-04 00:00 temperature_standard 97 F 2022-12-04 00:00 weight_metric 68.03 kg 2022-12-04 00:00 weight_standard 149.98 lb 2022-12-25 00:00 BMI 22.9 kg/m2 2022-12-25 00:00 BP_diastolic 71 mmHg 2022-12-25 00:00 BP_systolic 121 mmHg 2022-12-25 00:00 heart_rate 74 /min 2022-12-25 00:00 height_metric 177.8 cm 2022-12-25 00:00 height_standard 70 in 2022-12-25 00:00 o2_saturation 100 % 2022-12-25 00:00 respiration_rate 17 /min 2022-12-25 00:00 temperature_metric 36.56 C 2022-12-25 00:00 temperature_standard 97.8 F 2022-12-25 00:00 weight_metric 72.57 kg 2022-12-25 00:00 weight_standard 159.99 lb
[2023-02-20 23:29] LABS: BASOPHILS # (AUTO) 0.1 10^3/uL (0.0-0.1); BASOPHILS % (AUTO) 0.9 %; EOSINOPHILS # (AUTO) 0.1 10^3/uL (0.0-0.7); EOSINOPHILS % (AUTO) 1.4 %; HCT - HEMATOCRIT 31.7 % (42.0-52.0); HGB - HEMOGLOBIN 10.1 g/dL (14.0-18.0); LYMPHOCYTES # (AUTO) 1.6 10^3/uL (1.5-3.5); LYMPHOCYTES % (AUTO) 17.9 %; MEAN CORPUSCULAR HEMOGLOBIN 31.4 pg (27.0-31.0); MEAN CORPUSCULAR HGB CONC 31.9 g/dL (32.0-36.0); MEAN CORPUSCULAR VOLUME 98.4 fL (80.0-94.0); MEAN PLATELET VOLUME 11.2 fL (7.4-11.4); MONOCYTES # (AUTO) 0.9 10^3/uL (0.0-1.0); MONOCYTES % (AUTO) 9.8 %; NEUTROPHILS % (AUTO) 68.9 %; PLT - PLATELET COUNT 197 10^3/uL (130-450); RED BLOOD COUNT 3.22 10^6/uL (4.70-6.10); RED CELL DISTRIBUTION WIDTH 15.9 % (12.0-15.0); WHITE BLOOD COUNT 8.7 x10^3/uL (4.8-10.8)
[2023-02-20 23:33] LABS: INR 1.6 (0.8-1.2); PT - PROTHROMBIN TIME 16.9 secs (9.9-12.6)
[2023-02-20 23:40] LABS: PARTIAL THROMBOPLASTIN TIME 33.3 secs (24.9-33.3)
[2023-02-20] MEDS ORDERED: PANTOPRAZOLE 40 MG VIAL IVP STA (23:48)
[2023-02-21 00:05] LABS: ALBUMIN 2.6 g/dL (3.2-5.5); ALBUMIN/GLOBULIN RATIO 0.8 (1.0-2.2); BILIRUBIN,TOTAL 0.6 mg/dL (0.2-1.0); CALCIUM 8.1 mg/dL (8.5-10.3); MAGNESIUM 1.8 mg/dL (1.7-2.8); POTASSIUM 3.7 mmol/L (3.5-5.0); TOTAL PROTEIN 5.7 g/dL (6.7-8.2)
[2023-02-21] MEDS ORDERED: LACTATED RINGERS 1,000 ML IV STA ×2 (01:49→20:59)
[2023-02-21 02:09] LABS: HCT - HEMATOCRIT 29.2 % (42.0-52.0); HGB - HEMOGLOBIN 9.2 g/dL (14.0-18.0)
[2023-02-21 07:00] LABS: HCT - HEMATOCRIT 27.3 % (42.0-52.0); HGB - HEMOGLOBIN 8.8 g/dL (14.0-18.0)
--- NOTE | 2023-02-21 09:24 | MISCELLANEOUS PROVIDER NOTE ---
Miscellaneous Provider Note - - Note: Patient seen. Clear liquid diet ordered. Prep ordered. Chart review indicates a recent EGD at [facility] that did not show active bleeding and a report (I do not have a copy of) a colonoscopy last year that was normal. Cristianeto held on but PT and INR are still somewhat elevated. Plan for EGD and colonoscopy tomorrow. Question for internal medicine/cardiology if a surgically correctable source of his bleeding is seen - is he a candidate for surgery?
--- NOTE | 2023-02-21 10:08 | ED Physician Documentation ---
ED Addendum - Addendum Addendum: 02/21/23 Patient signed out to me by overnight physician. Patient presenting with GI bleed. He was recently at [facility] and have an upper endoscopy. Dr. Resendiz has seen the patient this morning and has ordered a bowel prep with plan for colonoscopy tomorrow. Patient was previously on Xarelto but that has been held. No abdominal tenderness noted on this morning's exam. Repeat H&H ordered for 11 AM. 02/21/23 12:04 Repeat hemoglobin appears to be stable. No further episodes of bleeding this morning. Patient has been boarding in the emergency department today. There have been no open beds available in the hospital so he remains boarding in the emergency department. There are potential openings at 11 PM. I will sign out the patient to the oncoming provider at shift change.
[2023-02-21] MEDS: PANTOPRAZOLE 40 MG VIAL IVP SCH ×2 (10:10→22:56)
[2023-02-21 10:57] LABS: HCT - HEMATOCRIT 29.1 % (42.0-52.0)
--- NOTE | 2023-02-21 17:38 | CONSULTATION NOTE ---
Referring Provider Name of Referring Provider:: Jonny Rueda MD Consult Date: 02/21/23 Chief Complaint - Chief Complaint Chief Complaint: Anemia secondary to GI bleed History of Present Illness - Admitted From Admitted From:: In ED - History Obtained From Records Reviewed: Yes History obtained from: Patient, records and physician Exam Limitations: Patient is very [place] and some dementia - History of Present Illness HPI Comment/Other: Patient is a very pleasant 87 year old male evaluated in Room 5 at [facility] MD at the request of Dr. Rueda for anemia secondary to a GI bleed. The patient was recently evaluated at [facility] where an EGGD was done and no bleeding seen. His Xarelto was stopped in anticipation of an outpatient colonoscopy. That colonoscopy could not be scheduled performed before the patient presented back to the ED with symptomatic anemia. Importantly his record indicates a colonoscopy last year that was negative but in my discussion with the patient he states it was several years ago. He has been losing weight. The patient denies nausea, vomiting, constipation, hematemesis, or abdominal pain. Notably a review of his medical history shows previous presentation for GI bleed as well as nose bleeds. History - Past Medical History Cardiovascular: reports: Atrial fibrillation Respiratory: reports: None Neuro: reports: Dementia (mild) Endocrine/Autoimmune: reports: Type 2 diabetes GI: reports: GERD, Diverticulitis : reports: Benign prostate hypertrophy, Nocturia, Frequency HEENT: reports: Chronic vision loss Psych: reports: None Musculoskeletal: reports: Chronic back pain Derm: reports: None MRSA Hx?: Yes - Past Surgical History Cardiovascular: reports: Pacemaker - Family & Social History Family History: Mother: , Cancer, Father: Family History Comment/Other: pt report his mother from colon cancer, Father at age 96, unknown any disease cause. Social History Notes: pt report he is living with family in [place]. he denies cigarette smoking, alcohol and drug issue. - POLST Patient has POLST: No Meds/Allgy - Home Medications Home Medications: Ambulatory Orders Medication Instructions Recorded Confirmed Bupropion HCl [Bupropion HCl Sr] 150 mg PO BID 08/07/14 02/21/23 Omeprazole 20 mg PO DAILY 08/07/14 02/21/23 dilTIAZem HCl [Diltiazem 24Hr ER 300 mg PO DAILY 07/19/19 02/21/23 (Cd)] Lidocaine Patch 5% [Lidoderm Patch] 1 patch TOP DAILY PRN #10 patch 08/29/22 02/21/23 Metoprolol Succinate [Toprol Xl] 50 mg PO DAILY 02/21/23 02/21/23 Pantoprazole [Protonix] 40 mg PO BID 02/21/23 02/21/23 traMADol [Ultram] 50 mg PO Q8HR PRN 02/21/23 02/21/23 - Allergies Allergies/Adverse Reactions: Allergies Allergy/AdvReac Type Severity Reaction Status Date / Time No Known Drug Allergies Allergy Verified 02/20/23 23:11 Review of Systems - Other Findings Other Findings: Could not have a meaningful ROS discussion with patient due to his difficulty hearing and dementia. Exam - Vital Signs Reviewed Vital Signs: Yes Vital Signs: Vital Signs x48h Temp Pulse Resp BP Pulse Ox 02/21/23 15:30 88 14 113/71 93 02/21/23 14:00 80 14 112/72 96 02/21/23 11:03 37 C 86 12 107/66 99 02/21/23 10:00 106 H 22 109/88 H 96 - Physical Exam General Appearance: positive: Other (Struggling to get his phone plugged into [employer] cable. Alert to person and place. Ecchymosis on both arms/hands.) Eyes Bilateral: positive: No lid inflammation, Conjunctivae nml, No scleral icterus ENT: positive: Dry mucous membranes, Other (Hearing aids.) Neck: positive: Trachea midline. negative: Carotid bruit Respiratory: positive: Chest non-tender, No respiratory distress, Breath sounds nml Cardiovascular: positive: No murmur, Tachycardia Abdomen: positive: Non-tender, No organomegaly, Nml bowel sounds, No distention Rectal: positive: Other (Deferred until colonoscopy.) Skin: positive: Warm, Other (Cool with ecchymosis throughout.) Extremities: negative: Pedal edema, Carla's sign/cords Neurologic/Psychiatric: positive: Motor nml, Sensation nml, Mood/affect nml, Di soriented to time. negative: Disoriented to person, Disoriented to place Conclusion/Plan - Lab Results Lab results reviewed: Yes Fish Bones: 02/21/23 10:53 02/20/23 23:47 - Diagnostic Imaging Results Diagnostic Imaging Results: positive: Final report reviewed - Other Other Results/Comments: Assessment: Anemia secondary to GI bleed EGD and colonoscopy planned for 0930 tomorrow after colon prep. Informed verbal consent obtained after indication, alternatives, expectations, possible complications including but not limited to perforation requiring surgery, bleeding requiring transfusion and were all explained to the patient. Written consent form completed by me - awaiting patient's signature. The Suprep was ordered this morning as well as a liquid diet today with NPO after 0200 tomorrow. Xarelto has been held and should be held pending the procedure. Determination of what to do with Xarelto in this patient will be determined by primary care physician or tuck pointer after evaluation of risk and discussion with patient and family. I have asked the patient to let me know if there is any way we can make his stay at [facility] more comfortable to please let us know - he sated he would. Currently there are no beds on the floor. I thank Dr. Rueda very much for the opportunity to be involved in this patient's care.
[2023-02-21] MEDS: SODIUM/POTASSIUM/MAG SULFATES 354 ML PREP KIT PO SCH (18:49)
[2023-02-22] MEDS: SODIUM/POTASSIUM/MAG SULFATES 354 ML PREP KIT PO SCH (06:37)
[2023-02-22] MEDS ORDERED: LIDOCAINE-MPF 2% 5 ML VIAL ONE (09:03)
[2023-02-22] MEDS ORDERED: PROPOFOL 500 MG/50 ML 500 MG/50 ML VIAL ONE (09:03)
[2023-02-22] MEDS: PANTOPRAZOLE 40 MG VIAL IVP SCH (09:11)
--- NOTE | 2023-02-22 09:38 | ANESTHESIA ---
Pre-Anesthesia VS, & Labs - Diagnosis anemia - Procedure EGD, colonoscopy Vital Signs: Temp Pulse Resp BP Pulse Ox O2 Flow Rate 36.9 C 83 24 129/80 98 02/22/23 08:25 02/22/23 08:25 02/22/23 08:25 02/22/23 08:25 02/22/23 08:25 Height: 5 ft 8 in Weight (kg): 65.816 kg Body Mass Index: 22.0 BMI Classification: Normal - NPO Other (prep at 5am) - Lab Results Current Lab Results: Laboratory Tests 02/21/23 10:53: Hgb 9.0 L, Hct 29.1 L 02/21/23 06:41: Hgb 8.8 L, Hct 27.3 L 02/21/23 03:56: Blood Type B POSITIVE, Antibody Screen NEGATIVE, Crossmatch IS Only See Detail 02/21/23 02:03: Hgb 9.2 L, Hct 29.2 L 02/20/23 23:47: Sodium 140, Potassium 3.7, Chloride 111, Carbon Dioxide 20 L, Anion Gap 9.0, BUN 14, Creatinine 1.0, Estimated GFR (MDRD) 71 L, Glucose 74, Calcium 8.1 L, Magnesium 1.8, Total Bilirubin 0.6, AST 18, ALT 19, Alkaline Phosphatase 61, Total Protein 5.7 L, Albumin 2.6 L, Globulin 3.1, Albumin/Globulin Ratio 0.8 L, Lipase 65 H 02/20/23 23:31: Blood Type Cancelled, Antibody Screen Cancelled 02/20/23 23:19: B-Natriuretic Peptide 285 H 02/20/23 23:19: PT 16.9 H, INR 1.6 H, APTT 33.3 02/20/23 23:19: WBC 8.7, RBC 3.22 L, Hgb 10.1 L, Hct 31.7 L, MCV 98.4 H, MCH 31.4 H, MCHC 31.9 L, RDW 15.9 H, Plt Count 197, MPV 11.2, Neut # (Auto) 6.0, Lymph # (Auto) 1.6, [place] # (Auto) 0.9, Eos # (Auto) 0.1, Baso # (Auto) 0.1, Absolute Nucleated RBC 0.00, Nucleated RBC % 0.0 Fish Bones: 02/21/23 10:53 02/20/23 23:47 Home Medications and Allergies Home Medications: Ambulatory Orders Metoprolol Succinate [Toprol Xl] 50 mg PO DAILY 02/21/23 Pantoprazole [Protonix] 40 mg PO BID 02/21/23 traMADol [Ultram] 50 mg PO Q8HR PRN 02/21/23 Active Medications Pantoprazole Sodium (Pantoprazole 40 Mg Vial) 40 mg IVP BID KEON Last Admin: 02/22/23 09:11 Dose: 40 mg Bupropion HCl [Bupropion HCl Sr] 150 mg PO BID 08/07/14 Omeprazole 20 mg PO DAILY 08/07/14 dilTIAZem HCl [Diltiazem 24Hr ER (Cd)] 300 mg PO DAILY 07/19/19 Metoprolol Succinate [Toprol Xl] 50 mg PO DAILY 02/21/23 Pantoprazole [Protonix] 40 mg PO BID 02/21/23 traMADol [Ultram] 50 mg PO Q8HR PRN 02/21/23 Allergies/Adverse Reactions: Allergies Allergy/AdvReac Type Severity Reaction Status Date / Time No Known Drug Allergies Allergy Verified 02/20/23 23:11 Anes History & Medical History - Anesthetic History Anesthesia Complications: reports: No previous complications - Medical History Cardiovascular: reports: Atrial fibrillation Pulmonary: reports: None Gastrointestinal: reports: GERD, Diverticulitis Urinary: reports: Benign prostate hypertrophy, Nocturia, Frequency Neuro: reports: Dementia (mild) Musculoskeletal: reports: Chronic back pain Endocrine/Autoimmune: reports: Type 2 diabetes Blood Disorders: reports: None Skin: reports: None Smoking Status: Never smoker - Surgical History Cardiothoracic: reports: Pacemaker Exam General: Alert, Oriented x3, Cooperative Dental: WNL Mouth Opening: Greater than 4 Fingerbreadths Neck Mobility: Normal Mallampati classification: II Thyromental Distance: greater than 6 cm Respiratory: Lungs clear Cardiovascular: Regular rate, Normal S1, Normal S2 Plan Anesthesia Type: Total IV Consent for Procedure(s) Verified and Reviewed: Yes Code Status: Attempt Resuscitation ASA classification: 3-Severe systemic disease Is this case an emergency?: No
[2023-02-22] MEDS ORDERED: ONDANSETRON 4 MG/2 ML VIAL IVP PRN (10:22)
--- NOTE | 2023-02-22 10:25 | ED Physician Documentation ---
ED Addendum - Addendum Addendum: Patient has been boarding in the emergency department with a GI bleed. Surgery has been consulted with plan for EGD and colonoscopy this morning. He was prepped For colonoscopy last night.There are no admission beds available. I have been asked to consult with the hospitalist to see if she can write admission orders for post procedure as patient is not able to return to the emergency department. There is an available ICU bed that they can use for this patient. 02/22/23 10:[address] Pascal. She will admit the patient postprocedure.
[2023-02-22] MEDS ORDERED: DEXTROSE 50% ABBOJECT 25 GM/50 ML SYRINGE IVP ONE (11:55)
[2023-02-22] MEDS: SODIUM CHLORIDE FLUSH 0.9% 10 ML SYRINGE IVP SCH (12:06)
[2023-02-22 12:33] LABS: ALBUMIN 2.7 g/dL (3.2-5.5); ALBUMIN/GLOBULIN RATIO 0.9 (1.0-2.2); BILIRUBIN,TOTAL 0.7 mg/dL (0.2-1.0); CALCIUM 8.1 mg/dL (8.5-10.3); CREATININE 0.7 mg/dL (0.6-1.2); POTASSIUM 3.4 mmol/L (3.5-5.0); TOTAL PROTEIN 5.7 g/dL (6.7-8.2)
[2023-02-22] MEDS: POTASSIUM CHLOR 10 MEQ/100 ML 10 MEQ/100 ML BAG IV SCH ×4 (13:58→17:33)
--- NOTE | 2023-02-22 14:26 | PHARMACY PROGRESS NOTE ---
- Best Possible Medication History Admit Date and Time: 02/22/23 1022 Processed by: Nursing Secondary Source(s): Insurance records Med list updated by nursing. Per ER Physician notes, patient was also previously on Xarelto but it has been held since 02/17 due to GIB. As the person ultimately responsible for medication therapy, providers are able to order a medication from an existing home medication list in [facility] via the "Reconcile Routine" prior to Confirmation of that medication by support manager. Such practice is discouraged except when the physician, in their clinical judgment, deems that a medical need exists for a medication without regard to previous use.
--- NOTE | 2023-02-22 15:37 | ANESTHESIA POST OP EVALUATION ---
Anesthesia Post Eval - Post Anesthesia Eval Vitals: Last Vital Signs Temp 36.4 C L 02/22/23 11:53 Pulse 94 02/22/23 15:16 Resp 11 L 02/22/23 15:16 BP 111/81 H 02/22/23 15:16 Pulse Ox 100 02/22/23 15:16 O2 Flow Rate CV Function Including HR & BP: Stable Pain Control: Satisfactory Nausea & Vomiting: Negative Mental Status: Baseline Respiratory Status: Airway Patent Hydration Status: Satisfactory Anesthesia Complications: None
--- NOTE | 2023-02-22 15:45 | HISTORY & PHYSICAL EXAMINATION ---
Chief Complaint - Chief Complaint Chief Complaint: Lower GI bleed History of Present Illness - Admitted From Admitted From:: ED to OR to adm - History Obtained From History obtained from: ED provider - History of Present Illness HPI Comment/Other: This is an 87-year-old male with a history of dementia, DM, and A-fib on a DOAC. There is a history of prior GI bleeding; he was just hospitalized at [facility] with a GI bleed and underwent EGD on 02/19/2023 which showed telangiectasias. He was then discharged home. He represented on 02/20/2023 to our ER with complaints of hematochezia and melena. Hemoglobin has been followed and it started at 10 and has plateaued at 9. On 02/21/2023 he was seen by general assistant professor of surgery who advised that the patient have an EGD and colonoscopy. The patient underwent a prep for his colonoscopy last night. Today 02/22/2023 he is ready to go to the OR for the scopes. His blood pressure is running 129/80, heart rate 83. There has been no further melena or hematochezia. I am meeting the patient after the procedures and after he has awoken from conscious sedation. The patient is a poor historian. He says he lives alone and says he has caregivers that come into help him with meals, laundry and cleaning, and then says that his ex- lives with him. He denies any discomfort currently and has an appetite and wants to eat. History - Past Medical History Cardiovascular: reports: Atrial fibrillation Respiratory: reports: None Neuro: reports: Dementia Endocrine/Autoimmune: reports: Type 2 diabetes GI: reports: GERD, Diverticulitis : reports: Benign prostate hypertrophy, Nocturia, Frequency HEENT: reports: Chronic vision loss Psych: reports: Depression, Anxiety Musculoskeletal: reports: Chronic back pain Derm: reports: None MRSA Hx?: Yes - Past Surgical History Cardiovascular: reports: Pacemaker - Family & Social History Family History: Mother: , Cancer, Father: Family History Comment/Other: pt report his mother from colon cancer, Father at age 96, unknown any disease cause. Living arrangement: At home Living Situation: With caregiver(s) Social History Notes: pt report he is living alone thenj said he lives with ex- . In the past he denied cigarette smoking, alcohol and drug use - Substance History Use: Uses substance without health or social issues: NONE - POLST Patient has POLST: No Meds/Allgy - Home Medications Home Medications: Ambulatory Orders Medication Instructions Recorded Confirmed Bupropion HCl [Bupropion HCl Sr] 150 mg PO BID 08/07/14 02/21/23 dilTIAZem HCl [Diltiazem 24Hr ER 300 mg PO DAILY 07/19/19 02/21/23 (Cd)] Lidocaine Patch 5% [Lidoderm Patch] 1 patch TOP DAILY PRN #10 patch 08/29/22 Metoprolol Succinate [Toprol Xl] 50 mg PO DAILY 02/21/23 02/21/23 Pantoprazole [Protonix] 40 mg PO BID 02/21/23 02/21/23 traMADol [Ultram] 50 mg PO Q8HR PRN 02/21/23 02/21/23 - Allergies Allergies/Adverse Reactions: Allergies Allergy/AdvReac Type Severity Reaction Status Date / Time No Known Drug Allergies Allergy Verified 02/20/23 23:11 Review of Systems - All Other Systems All Other Systems: reports: Other (Symptoms only as per HPI since the patient cannot give other details, as he is a poor historan.) Exam - Vital Signs Reviewed Vital Signs: Yes Vital Signs: Vital Signs x48h Temp Pulse Pulse Resp BP BP Pulse Ox 02/22/23 15:16 94 11 L 111/81 H 100 02/22/23 14:04 84 10 L 106/71 100 02/22/23 13:00 80 13 112/77 100 02/22/23 12:17 70 11 L 110/69 100 02/22/23 12:00 74 16 103/67 100 02/22/23 11:53 36.4 C L 80 12 96/71 100 02/22/23 10:00 83 24 129/80 98 02/22/23 08:25 36.9 C 83 24 129/80 98 - Physical Exam General Appearance: positive: No acute distress, Alert Eyes Bilateral: positive: Normal inspection, No lid inflammation ENT: positive: ENT inspection nml, No signs of dehydration Neck: positive: Nml inspection, No JVD Respiratory: positive: No respiratory distress, Breath sounds nml Cardiovascular: positive: No murmur, Irregularly irregular Abdomen: positive: Non-tender, Nml bowel sounds, No distention Skin: positive: Warm, Dry Extremities: positive: Non-tender, No pedal edema Neurologic/Psychiatric: positive: Oriented x3, Motor nml, Other (Poor memory) Conclusion/Plan - Problem List (1) Acute lower GI bleeding Conclusion/Plan: The patient has had 2 [id number] GI bleeds, 1 hospitalization was at [facility] just last week and currently this one. Plan: After the EGD and colonoscopy, plan to admit him to the ICU for close monitoring of his hemoglobin and vital signs Follow H/H every 8 hours, transfuse if hemoglobin goes under 7 In the case of finding a gastric ulcer, we will start IV Protonix twice daily Will adjust meds and management, after findings are discussed with the general surgeon, Dr. Resendiz, performing the endoscopies (2) Anticoagulant long-term use Conclusion/Plan: Plan: Given the 2 episodes of GI blood loss requiring hospitalization, the patient will be advised to not use anticoagulants for a minimum of a month, preferably 6 months to a year. Stop DOAC, stop any anticoagulants (3) Atrial fibrillation with controlled ventricular rate Conclusion/Plan: Plan: We will continue with his usual heart rate slowing medications and other cardiac medicines as needed, after the pharmacy reconciles his med list (4) Diverticulosis Conclusion/Plan: Dr. Resendiz came to me at the completion of the EGD and colonoscopy done today, and reported that the only findings were 1 polyp which was biopsied and removed and alot of diverticulosis, none were actively bleeding. Plan: As we advance his diet, will recommend a high-fiber diet (5) Diabetes mellitus Conclusion/Plan: Plan: We will order a diabetic diet as we advance his diet to solids We will order before meals and at bedtime fingerstick checks, sliding scale insulin coverage, hypoglycemia protocol and check his A1c with morning labs - Lab Results Lab results reviewed: Yes Fish Bones: 02/23/23 04:58 02/23/23 04:58 - Diagnostic Imaging Results Diagnostic Imaging Results: positive: Final report reviewed
[2023-02-22] MEDS ORDERED: LIDOCAINE PATCH 5% TOP PRN (16:08)
[2023-02-22] MEDS ORDERED: diltiaZEM INJ 5 MG/ML VIAL IVP ONE (17:26)
[2023-02-22] MEDS ORDERED: diltiaZEM INJ 5 MG/ML VIAL ONE (17:33)
[2023-02-22] MEDS: INSULIN LISPRO 300 UNIT/3 ML PEN SUBQ SCH ×2 (19:28→21:32)
[2023-02-22] MEDS: buPROPion XL 150 MG TABLET PO SCH (21:32)
[2023-02-22] MEDS: FAMOTIDINE 20 MG/2 ML VIAL IVP SCH (21:32)
[2023-02-23] MEDS: SODIUM CHLORIDE FLUSH 0.9% 10 ML SYRINGE IVP SCH ×3 (03:18→17:38)
[2023-02-23 05:21] LABS: BASOPHILS # (AUTO) 0.1 10^3/uL (0.0-0.1); BASOPHILS % (AUTO) 1.1 %; EOSINOPHILS # (AUTO) 0.2 10^3/uL (0.0-0.7); EOSINOPHILS % (AUTO) 2.6 %; HCT - HEMATOCRIT 26.7 % (42.0-52.0); HGB - HEMOGLOBIN 8.7 g/dL (14.0-18.0); LYMPHOCYTES # (AUTO) 1.8 10^3/uL (1.5-3.5); LYMPHOCYTES % (AUTO) 28.8 %; MEAN CORPUSCULAR HEMOGLOBIN 31.3 pg (27.0-31.0); MEAN CORPUSCULAR HGB CONC 32.6 g/dL (32.0-36.0); MEAN PLATELET VOLUME 10.6 fL (7.4-11.4); MONOCYTES # (AUTO) 0.7 10^3/uL (0.0-1.0); NEUTROPHILS # (AUTO) 3.5 10^3/uL (1.5-6.6); NEUTROPHILS % (AUTO) 55.7 %; PLT - PLATELET COUNT 189 10^3/uL (130-450); RED BLOOD COUNT 2.78 10^6/uL (4.70-6.10); RED CELL DISTRIBUTION WIDTH 15.9 % (12.0-15.0); WHITE BLOOD COUNT 6.2 x10^3/uL (4.8-10.8)
[2023-02-23 05:39] LABS: CALCIUM 8.1 mg/dL (8.5-10.3); CREATININE 0.8 mg/dL (0.6-1.2); MAGNESIUM 1.8 mg/dL (1.7-2.8); PHOSPHORUS 2.5 mg/dL (2.5-4.6); POTASSIUM 3.2 mmol/L (3.5-5.0)
[2023-02-23] MEDS: INSULIN LISPRO 300 UNIT/3 ML PEN SUBQ SCH ×4 (07:54→23:26)
[2023-02-23] MEDS: NEUTRA-PHOS 250 MG TABLET PO SCH ×2 (08:23→12:27)
[2023-02-23] MEDS: diltiaZEM CD 240 MG CAPSULE PO SCH (08:23)
[2023-02-23] MEDS: buPROPion XL 150 MG TABLET PO SCH ×2 (08:24→22:20)
[2023-02-23] MEDS: FAMOTIDINE 20 MG/2 ML VIAL IVP SCH (08:24)
[2023-02-23] MEDS: FERROUS GLUCONATE 324 MG TABLET PO SCH (09:12)
[2023-02-23] MEDS: ASPIRIN EC 81 MG TABLET PO SCH (09:12)
[2023-02-23] MEDS: PANTOPRAZOLE 40 MG TABLET PO SCH ×2 (09:12→22:20)
[2023-02-23] MEDS: METOPROLOL SUCCINATE 50 MG TABLET PO SCH (09:12)
[2023-02-23] MEDS ORDERED: SODIUM CHLORIDE 0.9% 500 ML IV ONE (11:15)
--- NOTE | 2023-02-23 14:19 | PROVIDER PROGRESS NOTE ---
Subjective - Subjective Pt reports feeling: Improved (He denies any complaints, has had no further melena or hematochezia) Objective - Vital Signs/Intake & Output Vital Signs: Vital Signs Pulse Resp BP Pulse Ox 02/23/23 13:15 75 18 125/89 H 98 02/23/23 12:00 78 11 L 125/89 H 100 02/23/23 11:00 82 10 L 116/79 100 Intake & Output: Intake & Output 02/20/23 02/21/23 02/22/23 02/23/23 23:59 23:59 23:59 23:59 Intake Total 19990 270 Output Total 350 875 Balance 1999 1850 -605 - Objective General Appearance: positive: No acute distress, Alert Eyes Bilateral: positive: Normal inspection, No lid inflammation ENT: positive: ENT inspection nml, No signs of dehydration Neck: positive: Nml inspection, No JVD Respiratory: positive: No respiratory distress Cardiovascular: positive: No murmur Abdomen: positive: Non-tender, No distention Skin: positive: Warm, Dry, Pallor Extremities: positive: Non-tender, No pedal edema Neurologic/Psychiatric: positive: Motor nml, Disoriented to person, Disoriented to place, Disoriented to time - Lab Results Fish Bones: 02/23/23 12:30 02/23/23 04:58 Other Labs: Lab Results x24hrs 02/23/23 02/23/23 02/23/23 Range/Units 12:30 11:50 07:48 WBC (4.8-10.8) x10^3/uL RBC (4.70-6.10) 10^6/uL Hgb 9.3 L (14.0-18.0) g/dL Hct (42.0-52.0) % MCV (80.0-94.0) fL MCH (27.0-31.0) pg MCHC (32.0-36.0) g/dL RDW (12.0-15.0) % Plt Count (130-450) 10^3/uL MPV (7.4-11.4) fL Neut # (Auto) (1.5-6.6) 10^3/uL Lymph # (Auto) (1.5-3.5) 10^3/uL [place] # (Auto) (0.0-1.0) 10^3/uL Eos # (Auto) (0.0-0.7) 10^3/uL Baso # (Auto) (0.0-0.1) 10^3/uL Absolute Nucleated RBC x10^3/uL Nucleated RBC % /100WBC Sodium (135-145) mmol/L Potassium (3.5-5.0) mmol/L Chloride (101-111) mmol/L Carbon Dioxide (21-32) mmol/L Anion Gap (6-13) BUN (6-20) mg/dL Creatinine (0.6-1.2) mg/dL Estimated GFR (MDRD) (>89) Glucose (70-100) mg/dL POC Whole Bld Glucose 76 76 (70 - 100) mg/dL Calcium (8.5-10.3) mg/dL Phosphorus (2.5-4.6) mg/dL Magnesium (1.7-2.8) mg/dL Nasal Screen MRSA (PCR) (NEGATIVE) 02/23/23 02/23/23 02/22/23 Range/Units 04:58 04:58 21:23 WBC 6.2 (4.8-10.8) x10^3/uL RBC 2.78 L (4.70-6.10) 10^6/uL Hgb 8.7 L (14.0-18.0) g/dL Hct 26.7 L (42.0-52.0) % MCV 96.0 H (80.0-94.0) fL MCH 31.3 H (27.0-31.0) pg MCHC 32.6 (32.0-36.0) g/dL RDW 15.9 H (12.0-15.0) % Plt Count 189 (130-450) 10^3/uL MPV 10.6 (7.4-11.4) fL Neut # (Auto) 3.5 (1.5-6.6) 10^3/uL Lymph # (Auto) 1.8 (1.5-3.5) 10^3/uL [place] # (Auto) 0.7 (0.0-1.0) 10^3/uL Eos # (Auto) 0.2 (0.0-0.7) 10^3/uL Baso # (Auto) 0.1 (0.0-0.1) 10^3/uL Absolute Nucleated RBC 0.00 x10^3/uL Nucleated RBC % 0.0 /100WBC Sodium 141 (135-145) mmol/L Potassium 3.2 L (3.5-5.0) mmol/L Chloride 113 H (101-111) mmol/L Carbon Dioxide 23 (21-32) mmol/L Anion Gap 5.0 L (6-13) BUN 7 (6-20) mg/dL Creatinine 0.8 (0.6-1.2) mg/dL Estimated GFR (MDRD) 92 (>89) Glucose 84 (70-100) mg/dL POC Whole Bld Glucose 111 H (70 - 100) mg/dL Calcium 8.1 L (8.5-10.3) mg/dL Phosphorus 2.5 (2.5-4.6) mg/dL Magnesium 1.8 (1.7-2.8) mg/dL Nasal Screen MRSA (PCR) (NEGATIVE) 02/22/23 02/22/23 02/22/23 Range/Units 20:37 20:37 17:10 WBC (4.8-10.8) x10^3/uL RBC (4.70-6.10) 10^6/uL Hgb 9.4 L (14.0-18.0) g/dL Hct (42.0-52.0) % MCV (80.0-94.0) fL MCH (27.0-31.0) pg MCHC (32.0-36.0) g/dL RDW (12.0-15.0) % Plt Count (130-450) 10^3/uL MPV (7.4-11.4) fL Neut # (Auto) (1.5-6.6) 10^3/uL Lymph # (Auto) (1.5-3.5) 10^3/uL [place] # (Auto) (0.0-1.0) 10^3/uL Eos # (Auto) (0.0-0.7) 10^3/uL Baso # (Auto) (0.0-0.1) 10^3/uL Absolute Nucleated RBC x10^3/uL Nucleated RBC % /100WBC Sodium (135-145) mmol/L Potassium 3.6 (3.5-5.0) mmol/L Chloride (101-111) mmol/L Carbon Dioxide (21-32) mmol/L Anion Gap (6-13) BUN (6-20) mg/dL Creatinine (0.6-1.2) mg/dL Estimated GFR (MDRD) (>89) Glucose (70-100) mg/dL POC Whole Bld Glucose 93 (70 - 100) mg/dL Calcium (8.5-10.3) mg/dL Phosphorus (2.5-4.6) mg/dL Magnesium (1.7-2.8) mg/dL Nasal Screen MRSA (PCR) (NEGATIVE) 02/22/23 02/22/23 Range/Units 16:31 12:15 WBC (4.8-10.8) x10^3/uL RBC (4.70-6.10) 10^6/uL Hgb (14.0-18.0) g/dL Hct (42.0-52.0) % MCV (80.0-94.0) fL MCH (27.0-31.0) pg MCHC (32.0-36.0) g/dL RDW (12.0-15.0) % Plt Count (130-450) 10^3/uL MPV (7.4-11.4) fL Neut # (Auto) (1.5-6.6) 10^3/uL Lymph # (Auto) (1.5-3.5) 10^3/uL [place] # (Auto) (0.0-1.0) 10^3/uL Eos # (Auto) (0.0-0.7) 10^3/uL Baso # (Auto) (0.0-0.1) 10^3/uL Absolute Nucleated RBC x10^3/uL Nucleated RBC % /100WBC Sodium (135-145) mmol/L Potassium (3.5-5.0) mmol/L Chloride (101-111) mmol/L Carbon Dioxide (21-32) mmol/L Anion Gap (6-13) BUN (6-20) mg/dL Creatinine (0.6-1.2) mg/dL Estimated GFR (MDRD) (>89) Glucose (70-100) mg/dL POC Whole Bld Glucose 64 L (70 - 100) mg/dL Calcium (8.5-10.3) mg/dL Phosphorus (2.5-4.6) mg/dL Magnesium (1.7-2.8) mg/dL Nasal Screen MRSA (PCR) NEGATIVE (NEGATIVE) Assessment/Plan - Problem List (1) Orthostatic hypotension Impression: This morning the patient had heart rate of 146, then his Cardizem dose was given and heart rate improved to 90. After that I asked for orthostatic vital signs to be done to ascertain if he is still intravascularly depleted from his large lower GI bleed. Orthostatic VS were checked and showed a 35 point increase in HR from supine to standing. Another VS check later today showed supine BP 89 systolic. Plan: My impression is that he is in fact intravascularly depleted because of the GI bleed and he will be admitted from Observation status to Inpatient status to further follow his hemoglobin, give possible blood transfusion and adjust his medications. We will give a 500 cc saline bolus now, for the supine hypotension (2) Acute lower GI bleeding Impression: The patient has had 2 [id number] GI bleeds, 1 hospitalization was at [facility] just last week and currently this one. He was admitted to the ICU for close monitoring of his hemoglobin every 8 hours and vital signs. At EGD, no source for bleeding in the stomach or duodenum were found. The colonoscopy found very high number of diverticula which are likely the source of intermittent bleeding, per the general surgeon Plan: Follow H/H q12h, transfuse if hemoglobin goes under 7 The IV Protonix twice daily will be stopped The diet needs to be high in fiber and his diet is being advanced We will start daily oral iron supple (3) Anticoagulant long-term use Conclusion/Plan: Plan: Given the 2 episodes of GI blood loss requiring hospitalization, the patient will be advised to not use anticoagulants for a minimum of a month, preferably 6 months to a year. Plan: Remain off DOAC (4) Atrial fibrillation with rapid ventricular rate Conclusion/Plan: The patient was supposedly on Toprol as well as Cardizem CD. Yesterday the pharmacist could not confirm that the patient was on both because of the way the meds were picked up at his pharmacy. A questionnaire was faxed to his PCP regarding proper doses, we have not received an answer back from the PCP. Today the heart rate was as high as 140 before receiving a.m. Cardizem Plan: We will continue with his usual heart rate slowing medications of both Toprol-XL and Cardizem CD Remain off DOAC, I recommend permanently. We will start 1 ECASA 81 mg daily as his stroke prophylaxis (5) Diverticulosis Conclusion/Plan: Dr. Resendiz came to me at the completion of the EGD and colonoscopy done today, and reported that the only findings were 1 polyp which was biopsied and removed and alot of diverticulosis, none were actively bleeding. Plan: As we advance his diet, will recommend a high-fiber diet (6) Diabetes mellitus Conclusion/Plan: Plan: Continue diabetic diet as we advance his diet to solids Cont ac and hs fingerstick checks, sliding scale insulin coverage, hypoglycemia protocol and await his A1c result from morning labs (7) Dementia The patient is a very poor historian. I had the pediatric social worker reach out to his caregiver and confirm how much caregiving he gets: He has a live-in caregiver Tuesday through Tuesday and then a different living caregiver Tuesday and Tuesday (the Tuesday caregiver is his ex- and his friend) Plan: He has a good set up for caregiving and a good discharge plan
[2023-02-23 16:14] LABS: ESTIMATED AVERAGE GLUCOSE 103 mg/dL (70-100); HEMOGLOBIN A1c% 5.2 % (4.27-6.07)
[2023-02-23] MEDS: SODIUM CHLORIDE FLUSH 0.9% 10 ML SYRINGE IVP PRN (17:38)
[2023-02-24] MEDS: SODIUM CHLORIDE FLUSH 0.9% 10 ML SYRINGE IVP SCH ×3 (00:03→17:55)
[2023-02-24] MEDS: INSULIN LISPRO 300 UNIT/3 ML PEN SUBQ SCH ×4 (07:56→21:11)
[2023-02-24] MEDS: FERROUS GLUCONATE 324 MG TABLET PO SCH (07:59)
[2023-02-24] MEDS: ASPIRIN EC 81 MG TABLET PO SCH (07:59)
[2023-02-24] MEDS: PANTOPRAZOLE 40 MG TABLET PO SCH ×2 (07:59→21:10)
[2023-02-24] MEDS: diltiaZEM CD 240 MG CAPSULE PO SCH ×2 (08:53→10:53)
[2023-02-24] MEDS: METOPROLOL SUCCINATE 50 MG TABLET PO SCH ×2 (08:53→10:53)
[2023-02-24] MEDS: buPROPion XL 150 MG TABLET PO SCH ×2 (08:53→21:10)
--- NOTE | 2023-02-24 12:40 | PROVIDER PROGRESS NOTE ---
Assessment/Plan - Problem List (1) Hypotension due to blood loss Assessment/Plan: Today his supine, sitting and standing blood pressures are all under 100 systolic. Yesterday he had orthostasis that required him to be admitted from Observation to Inpatient status. I suspect that he is intravascularly depleted from his recent large lower GI bleed (s). Plan: Will type and cross 2 units PRBCs for blood transfusion to be given today His Cardizem and metoprolol, which he gets for rate control of A-fib with RVR, will be on hold when systolic is under 100 (parameters) therefore they could not be given today. We will need to give digoxin IV for that A-fib management today. Will starrt daily Dig 0.25 mg (2) Acute lower GI bleeding Impression: The patient has had 2 [id number] GI bleeds, 1 hospitalization was at [facility] just last week and currently this one. He was admitted to the ICU for close monitoring of his hemoglobin every 8 hours and vital signs. At EGD, no source for bleeding in the stomach or duodenum were found. The colonoscopy found very high number of diverticula which are likely the source of intermittent bleeding, per the general surgeon. The empiric IV Protonix twice daily was stopped. I ordered daily oral iron supplement Plan: Will type and cross 2 units PRBCs for blood transfusion to be given today, due to hypotension Cont to follow H/H q12h, transfuse if hemoglobin goes under 7 The diet needs to be high in fiber and his diet is being advanced (3) Anticoagulant long-term use Conclusion/Plan: Plan: Given the 2 episodes of GI blood loss requiring hospitalization, the patient will be advised to not use anticoagulants for a minimum of a month, preferably 6 months to a year. Plan: Remain off DOAC (4) Atrial fibrillation with rapid ventricular rate Conclusion/Plan: His Cardizem and Metoprolol, which he gets for rate control of A-fib with RVR, are on hold when systolic is under 100 therefore they could not be given today. Plan: We will need to give Digoxin IV for that A-fib management today He may continue with his usual heart rate slowing medications of both Toprol-XL and Cardizem CD, if he does not drop BP below the parameters ordered; none given today Remain off DOAC, I recommend permanently. Continue ECASA 81 mg daily as his stroke prophylaxis (5) Diverticulosis Conclusion/Plan: Dr. Resendiz and I spoke at the completion of the EGD and colonoscopy. There was alot of diverticulosis, none were actively bleeding. Plan: As we advance his diet, will recommend a high-fiber diet (6) Diabetes mellitus Conclusion/Plan: Plan: Continue diabetic diet as we advance his diet to solids Cont ac and hs fingerstick checks, sliding scale insulin coverage, hypoglycemia protocol and await his A1c result from morning labs (7) Dementia The patient is a very poor historian. I had the social media community manager reach out to his caregiver and confirm how much caregiving he gets: He has a live-in caregiver Tuesday through Tuesday and then a different rn labor and delivery Tuesday and Tuesday (the Tuesday caregiver is his ex-, who he called his "friend" when he and I spoke) Plan: He has a good set up for caregiving and a good discharge plan - Current Meds Current Meds: Current Medications Generic Name Dose Route Start Last Admin Trade Name Freq PRN Reason Stop Dose Admin Aspirin 81 mg 02/23/23 09:00 02/24/23 07:59 Aspirin Ec 81 Mg Tablet PO 81 mg DAILY KEON Administration Bupropion HCl 150 mg 02/22/23 21:00 02/24/23 08:53 Bupropion Xl 150 Mg Tablet PO 150 mg BID KEON Administration Diltiazem HCl 240 mg 02/23/23 09:00 02/24/23 10:53 Diltiazem Cd 240 Mg Capsule PO Not Given DAILY KEON Ferrous Gluconate 324 mg 02/23/23 09:00 02/24/23 07:59 Ferrous Gluconate 324 Mg Tablet PO 324 mg DAILYWM KEON Administration Insulin Human Lispro 1 - 5 unit 02/22/23 17:00 02/24/23 12:13 Insulin Lispro 300 Unit/3 Ml Pen SUBQ Not Given 0800,1200,1700,2100 KEON Protocol Metoprolol Succinate 50 mg 02/23/23 09:00 02/24/23 10:53 Metoprolol Succinate 50 Mg Tablet PO Not Given DAILY KEON Pantoprazole Sodium 40 mg 02/23/23 09:00 02/24/23 07:59 Pantoprazole 40 Mg Tablet PO 40 mg BID KEON Administration Sodium Chloride 10 ml 02/22/23 17:00 02/24/23 08:53 Sodium Chloride Flush 0.9% 10 Ml Syringe IVP 10 ml 0100,0900,1700 KEON Administration Sodium Chloride 10 ml 02/22/23 10:22 02/23/23 17:38 Sodium Chloride Flush 0.9% 10 Ml Syringe IVP 10 ml PRN PRN Administration NEEDED PER PROVIDER ORDERS - Lab Result Fish Bone Diagrams: 02/24/23 12:44 02/24/23 12:44 - Additional Planning My Orders: My Active Orders 02/23/23 11:51 Telemetry- [RC] Q4HR 02/23/23 22:44 Zinc Oxide 20% Oint [Zinc Oxide] 1 applic TOP PRN PRN 02/24/23 BMP - BASIC METABOLIC PANEL [CHEM] Urgent CBC W/O DIFF (HEMOGRAM) [HEME] Stat 02/24/23 12:34 Transfuse RBCs Leukoreduced [RC] .ONCE 02/24/23 12:35 Miscellaenous Nursing Order [RC] QSHIFT 02/24/23 13:00 Digoxin Inj [Lanoxin Inj] 250 mcg IVP DAILY Subjective - Subjective Patient Reports: Dizzines (reported to his RN, with orthostatic VS checks) Objective Vital Signs: Vital Signs - 24 hr 02/23/23 02/23/23 02/23/23 13:15 16:56 22:39 Temperature 37.1 C 37.0 C Heart Rate [ 75 70 74 Monitoring electrodes] Respiratory 18 16 16 Rate Blood Pressure 125/89 H 103/66 110/63 [Left Brachial artery] Blood Pressure [Right Brachial artery] O2 Saturation 98 98 100 02/24/23 02/24/23 02/24/23 00:06 08:39 08:54 Temperature 36.9 C 36.8 C Heart Rate [ 81 74 83 Monitoring electrodes] Respiratory 16 18 17 Rate Blood Pressure 121/63 101/64 [Left Brachial artery] Blood Pressure 102/57 L [Right Brachial artery] O2 Saturation 97 99 99 Oxygen O2 Source Room air I&O (Last 24 Hrs): Intake and Output Totals x24h 02/22/23 02/23/23 02/24/23 23:59 23:59 23:59 Intake Total 2200 890 100 Output Total 350 1100 350 Balance 1850 -210 -250 General: Alert, No acute distress HEENT: Atraumatic, Other (pale) Neck: Supple Neuro: Alert, Non Focal, Other (Poor historian) Cardiovascular: No murmurs Respiratory: No respiratory distress Abdomen: Soft, No tenderness Extremities: No clubbing, No edema Skin: No rashes (Very pale) - Results Results: Laboratory Results WBC 6.2 x10^3/uL (4.8-10.8) 02/23/23 04:58 RBC 2.78 10^6/uL (4.70-6.10) L 02/23/23 04:58 Hgb 8.8 g/dL (14.0-18.0) L 02/23/23 20:16 Hct 26.7 % (42.0-52.0) L 02/23/23 04:58 MCV 96.0 fL (80.0-94.0) H 02/23/23 04:58 MCH 31.3 pg (27.0-31.0) H 02/23/23 04:58 MCHC 32.6 g/dL (32.0-36.0) 02/23/23 04:58 RDW 15.9 % (12.0-15.0) H 02/23/23 04:58 Plt Count 189 10^3/uL (130-450) 02/23/23 04:58 MPV 10.6 fL (7.4-11.4) 02/23/23 04:58 Neut # (Auto) 3.5 10^3/uL (1.5-6.6) 02/23/23 04:58 Lymph # (Auto) 1.8 10^3/uL (1.5-3.5) 02/23/23 04:58 [place] # (Auto) 0.7 10^3/uL (0.0-1.0) 02/23/23 04:58 Eos # (Auto) 0.2 10^3/uL (0.0-0.7) 02/23/23 04:58 Baso # (Auto) 0.1 10^3/uL (0.0-0.1) 02/23/23 04:58 Absolute Nucleated RBC 0.00 x10^3/uL 02/23/23 04:58 Nucleated RBC % 0.0 /100WBC 02/23/23 04:58 PT 16.9 secs (9.9-12.6) H 02/20/23 23:19 INR 1.6 (0.8-1.2) H 02/20/23 23:19 APTT 33.3 secs (24.9-33.3) 02/20/23 23:19 Sodium 141 mmol/L (135-145) 02/23/23 04:58 Potassium 3.2 mmol/L (3.5-5.0) L 02/23/23 04:58 Chloride 113 mmol/L (101-111) H 02/23/23 04:58 Carbon Dioxide 23 mmol/L (21-32) 02/23/23 04:58 Anion Gap 5.0 (6-13) L 02/23/23 04:58 BUN 7 mg/dL (6-20) 02/23/23 04:58 Creatinine 0.8 mg/dL (0.6-1.2) 02/23/23 04:58 Estimated GFR (MDRD) 92 (>89) 02/23/23 04:58 Glucose 84 mg/dL (70-100) 02/23/23 04:58 POC Whole Bld Glucose 82 mg/dL (70 - 100) 02/24/23 12:01 Estimat Average Glucose 103 mg/dL (70-100) H 02/23/23 04:58 Hemoglobin A1c % 5.2 % (4.27-6.07) 02/23/23 04:58 Calcium 8.1 mg/dL (8.5-10.3) L 02/23/23 04:58 Phosphorus 2.5 mg/dL (2.5-4.6) 02/23/23 04:58 Magnesium 1.8 mg/dL (1.7-2.8) 02/23/23 04:58 Total Bilirubin 0.7 mg/dL (0.2-1.0) 02/22/23 12:12 AST 27 IU/L (10-42) 02/22/23 12:12 ALT 21 IU/L (10-60) 02/22/23 12:12 Alkaline Phosphatase 64 IU/L (42-121) 02/22/23 12:12 B-Natriuretic Peptide 285 pg/mL (5-100) H 02/20/23 23:19 Total Protein 5.7 g/dL (6.7-8.2) L 02/22/23 12:12 Albumin 2.7 g/dL (3.2-5.5) L 02/22/23 12:12 Globulin 3.0 g/dL (2.1-4.2) 02/22/23 12:12 Albumin/Globulin Ratio 0.9 (1.0-2.2) L 02/22/23 12:12 Lipase 65 U/L (22-51) H 02/20/23 23:47 Nasal Screen MRSA (PCR) NEGATIVE (NEGATIVE) 02/22/23 12:15 SARS-CoV-2 (PCR) NOT DETECTED 02/22/23 12:30 Blood Type B POSITIVE 02/21/23 03:56 Antibody Screen NEGATIVE 02/21/23 03:56 Crossmatch IS Only See Detail 02/21/23 03:56
[2023-02-24 12:53] LABS: HCT - HEMATOCRIT 28.6 % (42.0-52.0); HGB - HEMOGLOBIN 9.3 g/dL (14.0-18.0); MEAN CORPUSCULAR HEMOGLOBIN 31.3 pg (27.0-31.0); MEAN CORPUSCULAR HGB CONC 32.5 g/dL (32.0-36.0); MEAN CORPUSCULAR VOLUME 96.3 fL (80.0-94.0); MEAN PLATELET VOLUME 10.4 fL (7.4-11.4); RED BLOOD COUNT 2.97 10^6/uL (4.70-6.10); RED CELL DISTRIBUTION WIDTH 15.8 % (12.0-15.0); WHITE BLOOD COUNT 7.2 x10^3/uL (4.8-10.8)
[2023-02-24 12:58] LABS: CALCIUM 8.4 mg/dL (8.5-10.3); CREATININE 0.8 mg/dL (0.6-1.2); POTASSIUM 3.2 mmol/L (3.5-5.0)
[2023-02-24] MEDS: DIGOXIN 500 MCG/2 ML AMP IVP SCH (17:58)
[2023-02-25] MEDS: SODIUM CHLORIDE FLUSH 0.9% 10 ML SYRINGE IVP SCH ×3 (01:30→16:45)
[2023-02-25] MEDS: ZINC OXIDE 20% OINT 30 GM TUBE TOP PRN ×2 (03:17→11:35)
[2023-02-25] MEDS: INSULIN LISPRO 300 UNIT/3 ML PEN SUBQ SCH ×2 (07:58→12:09)
[2023-02-25] MEDS: PANTOPRAZOLE 40 MG TABLET PO SCH ×2 (08:06→20:38)
[2023-02-25] MEDS: METOPROLOL SUCCINATE 50 MG TABLET PO SCH (08:06)
[2023-02-25] MEDS: ASPIRIN EC 81 MG TABLET PO SCH (08:06)
[2023-02-25] MEDS: FERROUS GLUCONATE 324 MG TABLET PO SCH (08:06)
[2023-02-25] MEDS: diltiaZEM CD 240 MG CAPSULE PO SCH (08:06)
[2023-02-25] MEDS: DIGOXIN 500 MCG/2 ML AMP IVP SCH (08:06)
[2023-02-25] MEDS: buPROPion XL 150 MG TABLET PO SCH ×2 (08:07→20:38)
--- NOTE | 2023-02-25 12:14 | PROVIDER PROGRESS NOTE ---
Assessment/Plan - Problem List (1) Hypotension due to blood loss Assessment/Plan: On 02/24 his supine, sitting and standing blood pressures were all under 100 systolic and he was tachy. The previous day, he had orthostasis that required him to be admitted from Observation to Inpatient status. I suspect that he is intravascularly depleted from his recent large lower GI bleed (s). Received 2 units PRBCs yesterday and blood pressure today is running 100-110 systolic. His Cardizem and metoprolol, which he gets for rate control of A-fib with RVR, were ordered to be on hold when systolic is under 120 (parameters) therefore they could not be given, thus we needed to give Digoxin IV for A-fib rate management today. We started daily Dig 0.25 mg Plan: Continue to monitor orthostatic vital signs He may start working with PT and OT today since BP is better and he is asymptomatic (2) Acute lower GI bleeding Impression: The patient has had 2 [id number] GI bleeds, 1 hospitalization was at [facility] just last week and currently this one. He was admitted to the ICU for close monitoring of his hemoglobin every 8 hours and vital signs. At EGD, no source for bleeding in the stomach or duodenum were found. The colonoscopy found very high number of diverticula which are likely the source of intermittent bleeding, per the general surgeon. The empiric IV Protonix twice daily was stopped. I ordered daily oral iron supplement Yesterday he got 2 units PRBCs transfused, due to hypotension Plan: Cont to follow H/H q8h, transfuse if hemoglobin goes under 7, or if again hypotensive The diet needs to be high in fiber and his diet is being advanced (3) Anticoagulant long-term use Conclusion/Plan: Plan: Given the 2 episodes of GI blood loss requiring hospitalization, the patient will be advised to not use anticoagulants for a minimum of a month, preferably 6 months to a year. Plan: Remain off DOAC (4) Atrial fibrillation with rapid ventricular rate Conclusion/Plan: His Cardizem and metoprolol, which he gets for rate control of A-fib with RVR, were ordered to be on hold when systolic is under 120 (parameters) therefore they could not be given, thus we needed to give Digoxin IV for A-fib rate management today. We started daily Dig 0.25 mg He may continue with his usual heart rate slowing medications of both Toprol-XL and Cardizem CD, if he does not drop BP below the parameters ordered; none still could be given today Plan: Continue Dig daily. We will check a Dig level starting tomorrow Remain off DOAC, I recommend permanently. Continue ECASA 81 mg daily as his stroke prophylaxis (5) Diverticulosis Conclusion/Plan: Dr. Resendiz and I spoke at the completion of the EGD and colonoscopy several days ago. There was alot of diverticulosis, none were actively bleeding. Plan: As we advance his diet, will recommend a high-fiber diet (6) Diabetes mellitus Conclusion/Plan: Patient is only eating 50 to 75% of his meals, even after advancing his diet. All his blood glucose checks have been normal since admission. His first blood glucose checks were actually low on him and the hypoglycemia protocol for a diabetic was ordered Plan: We will stop fingerstick checks and sliding scale insulin coverage. This was discussed with dietitian Terese Will NOT be ordering a diabetic diet given the history of low blood glucoses here (7) Dementia The patient is a very poor historian. I had the family welfare social work professor reach out to his caregiver and confirm how much caregiving he gets: He has a live-in caregiver Tuesday through Tuesday and then a different livestock buyer Tuesday and Tuesday (the Tuesday caregiver is his ex-, who he called his "friend" when he and I spoke) Plan: He has a good set up for caregiving and a good discharge plan. - Current Meds Current Meds: Current Medications Generic Name Dose Route Start Last Admin Trade Name Moe PRN Reason Stop Dose Admin Aspirin 81 mg 02/23/23 09:00 02/25/23 08:06 Aspirin Ec 81 Mg Tablet PO 81 mg DAILY KEON Administration Bupropion HCl 150 mg 02/22/23 21:00 02/25/23 08:07 Bupropion Xl 150 Mg Tablet PO 150 mg BID KEON Administration Digoxin 250 mcg 02/24/23 13:00 02/25/23 08:06 Digoxin 500 Mcg/2 Ml Amp IVP 250 mcg DAILY KEON Administration Diltiazem HCl 240 mg 02/23/23 09:00 02/25/23 08:06 Diltiazem Cd 240 Mg Capsule PO Not Given DAILY KEON Ferrous Gluconate 324 mg 02/23/23 09:00 02/25/23 08:06 Ferrous Gluconate 324 Mg Tablet PO 324 mg DAILYWM KEON Administration Metoprolol Succinate 50 mg 02/23/23 09:00 02/25/23 08:06 Metoprolol Succinate 50 Mg Tablet PO Not Given DAILY KEON Multi-Ingredient Ointment 1 applic 02/23/23 22:44 02/25/23 03:17 Zinc Oxide 20% Oint 30 Gm Tube TOP 1 applic PRN PRN Administration Skin Care Pantoprazole Sodium 40 mg 02/23/23 09:00 02/25/23 08:06 Pantoprazole 40 Mg Tablet PO 40 mg BID KEON Administration Sodium Chloride 10 ml 02/22/23 17:00 02/25/23 08:08 Sodium Chloride Flush 0.9% 10 Ml Syringe IVP 10 ml 0100,0900,1700 KEON Administration Sodium Chloride 10 ml 02/22/23 10:22 02/23/23 17:38 Sodium Chloride Flush 0.9% 10 Ml Syringe IVP 10 ml PRN PRN Administration NEEDED PER PROVIDER ORDERS - Lab Result Fish Bone Diagrams: 02/25/23 13:02 02/24/23 12:44 - Additional Planning My Orders: My Active Orders 02/24/23 12:34 Transfuse RBCs Leukoreduced [RC] .ONCE 02/24/23 12:35 Miscellaenous Nursing Order [RC] QSHIFT 02/24/23 13:00 Digoxin Inj [Lanoxin Inj] 250 mcg IVP DAILY 02/25/23 Evaluate and Treat OT [OT] Routine Evaluate and Treat PT [PT] Routine 02/25/23 13:00 HGB - HEMOGLOBIN [HEME] Q8H 02/25/23 21:00 HGB - HEMOGLOBIN [HEME] Q8H 02/26/23 05:00 BMP - BASIC METABOLIC PANEL [CHEM] DAILYLAB DIGOXIN [CHEM] DAILYLAB HGB - HEMOGLOBIN [HEME] Q8H MAGNESIUM [CHEM] DAILYLAB 02/26/23 13:00 HGB - HEMOGLOBIN [HEME] Q8H 02/26/23 21:00 HGB - HEMOGLOBIN [HEME] Q8H 02/27/23 05:00 BMP - BASIC METABOLIC PANEL [CHEM] DAILYLAB HGB - HEMOGLOBIN [HEME] Q8H 02/28/23 05:00 BMP - BASIC METABOLIC PANEL [CHEM] DAILYLAB Subjective - Subjective Patient Reports: No Complaints (No more lightheadedness when he is upright he said) Objective Vital Signs: Vital Signs - 24 hr 02/24/23 02/24/23 02/24/23 13:00 13:53 14:16 Temperature 36.5 C 37.0 C 37.0 C Heart Rate Heart Rate [ 70 70 74 Monitoring electrodes] Respiratory 16 14 16 Rate Blood Pressure 94/58 L 157/140 H 91/58 L [Left Brachial artery] O2 Saturation 100 98 98 02/24/23 02/24/23 02/24/23 17:00 17:50 19:16 Temperature 36.9 C 37.1 C Heart Rate Heart Rate [ 75 71 75 Monitoring electrodes] Respiratory 18 16 18 Rate Blood Pressure 110/65 114/68 102/63 [Left Brachial artery] O2 Saturation 97 98 100 02/24/23 02/24/23 02/25/23 19:35 22:37 03:25 Temperature 36.7 C 36.7 C 36.4 C L Heart Rate Heart Rate [ 75 70 70 Monitoring electrodes] Respiratory 18 20 18 Rate Blood Pressure 102/64 102/61 98/63 [Left Brachial artery] O2 Saturation 100 98 97 02/25/23 02/25/23 02/25/23 07:43 08:00 08:06 Temperature 36.7 C Heart Rate 70 Heart Rate [ 70 69 Monitoring electrodes] Respiratory 16 16 Rate Blood Pressure 111/69 111/70 [Left Brachial artery] O2 Saturation 98 99 Oxygen O2 Source Room air I&O (Last 24 Hrs): Intake and Output Totals x24h 02/23/23 02/24/23 02/25/23 23:59 23:59 23:59 Intake Total 890 1570 50 Output Total 1100 950 735 Balance -210 620 -685 General: Alert, Oriented x3 HEENT: Mucous membr. moist/pink, Other (Pale) Neck: Supple, No JVD Neuro: Alert, Non Focal, Other (Poor memory) Cardiovascular: No murmurs Respiratory: No respiratory distress Abdomen: Normal bowel sounds, Soft, No tenderness Extremities: No clubbing, No edema, No tenderness/swelling - Results Results: Laboratory Results WBC 7.2 x10^3/uL (4.8-10.8) 02/24/23 12:44 RBC 2.97 10^6/uL (4.70-6.10) L 02/24/23 12:44 Hgb 9.3 g/dL (14.0-18.0) L 02/24/23 12:44 Hct 28.6 % (42.0-52.0) L 02/24/23 12:44 MCV 96.3 fL (80.0-94.0) H 02/24/23 12:44 MCH 31.3 pg (27.0-31.0) H 02/24/23 12:44 MCHC 32.5 g/dL (32.0-36.0) 02/24/23 12:44 RDW 15.8 % (12.0-15.0) H 02/24/23 12:44 Plt Count 232 10^3/uL (130-450) 02/24/23 12:44 MPV 10.4 fL (7.4-11.4) 02/24/23 12:44 Neut # (Auto) 3.5 10^3/uL (1.5-6.6) 02/23/23 04:58 Lymph # (Auto) 1.8 10^3/uL (1.5-3.5) 02/23/23 04:58 [place] # (Auto) 0.7 10^3/uL (0.0-1.0) 02/23/23 04:58 Eos # (Auto) 0.2 10^3/uL (0.0-0.7) 02/23/23 04:58 Baso # (Auto) 0.1 10^3/uL (0.0-0.1) 02/23/23 04:58 Absolute Nucleated RBC 0.00 x10^3/uL 02/23/23 04:58 Nucleated RBC % 0.0 /100WBC 02/23/23 04:58 PT 16.9 secs (9.9-12.6) H 02/20/23 23:19 INR 1.6 (0.8-1.2) H 02/20/23 23:19 APTT 33.3 secs (24.9-33.3) 02/20/23 23:19 Sodium 140 mmol/L (135-145) 02/24/23 12:44 Potassium 3.2 mmol/L (3.5-5.0) L 02/24/23 12:44 Chloride 109 mmol/L (101-111) 02/24/23 12:44 Carbon Dioxide 22 mmol/L (21-32) 02/24/23 12:44 Anion Gap 9.0 (6-13) 02/24/23 12:44 BUN 6 mg/dL (6-20) 02/24/23 12:44 Creatinine 0.8 mg/dL (0.6-1.2) 02/24/23 12:44 Estimated GFR (MDRD) 92 (>89) 02/24/23 12:44 Glucose 131 mg/dL (70-100) H 02/24/23 12:44 POC Whole Bld Glucose 92 mg/dL (70 - 100) 02/25/23 11:40 Estimat Average Glucose 103 mg/dL (70-100) H 02/23/23 04:58 Hemoglobin A1c % 5.2 % (4.27-6.07) 02/23/23 04:58 Calcium 8.4 mg/dL (8.5-10.3) L 02/24/23 12:44 Phosphorus 2.5 mg/dL (2.5-4.6) 02/23/23 04:58 Magnesium 1.8 mg/dL (1.7-2.8) 02/23/23 04:58 Total Bilirubin 0.7 mg/dL (0.2-1.0) 02/22/23 12:12 AST 27 IU/L (10-42) 02/22/23 12:12 ALT 21 IU/L (10-60) 02/22/23 12:12 Alkaline Phosphatase 64 IU/L (42-121) 02/22/23 12:12 B-Natriuretic Peptide 285 pg/mL (5-100) H 02/20/23 23:19 Total Protein 5.7 g/dL (6.7-8.2) L 02/22/23 12:12 Albumin 2.7 g/dL (3.2-5.5) L 02/22/23 12:12 Globulin 3.0 g/dL (2.1-4.2) 02/22/23 12:12 Albumin/Globulin Ratio 0.9 (1.0-2.2) L 02/22/23 12:12 Lipase 65 U/L (22-51) H 02/20/23 23:47 Nasal Screen MRSA (PCR) NEGATIVE (NEGATIVE) 02/22/23 12:15 SARS-CoV-2 (PCR) NOT DETECTED 02/22/23 12:30 Blood Type B POSITIVE 02/21/23 03:56 Antibody Screen NEGATIVE 02/21/23 03:56 Crossmatch IS Only See Detail 02/21/23 03:56
[2023-02-25] MEDS: MULTIVITAMIN W/MINERALS TABLET PO SCH (16:45)
[2023-02-26 05:03] LABS: CALCIUM 8.3 mg/dL (8.5-10.3); CREATININE 0.7 mg/dL (0.6-1.2); MAGNESIUM 1.9 mg/dL (1.7-2.8); POTASSIUM 2.8 mmol/L (3.5-5.0)
[2023-02-26 05:55] LABS: DIGOXIN 0.6 ng/mL
[2023-02-26] MEDS: polyethylene glycoL 3350 17 GM PACKET PO SCH (08:26)
[2023-02-26] MEDS: ASPIRIN EC 81 MG TABLET PO SCH (08:27)
[2023-02-26] MEDS: buPROPion XL 150 MG TABLET PO SCH ×2 (08:27→20:25)
[2023-02-26] MEDS: MULTIVITAMIN W/MINERALS TABLET PO SCH (08:27)
[2023-02-26] MEDS: diltiaZEM CD 240 MG CAPSULE PO SCH (08:28)
[2023-02-26] MEDS: PANTOPRAZOLE 40 MG TABLET PO SCH ×2 (08:30→20:25)
[2023-02-26] MEDS: FERROUS GLUCONATE 324 MG TABLET PO SCH (08:30)
[2023-02-26] MEDS: DIGOXIN 500 MCG/2 ML AMP IVP SCH (08:31)
[2023-02-26] MEDS: METOPROLOL SUCCINATE 50 MG TABLET PO SCH (08:31)
[2023-02-26] MEDS: SODIUM CHLORIDE FLUSH 0.9% 10 ML SYRINGE IVP SCH ×3 (08:41→16:43)
[2023-02-26] MEDS: POTASSIUM CHLOR 10 MEQ/100 ML 10 MEQ/100 ML BAG IV SCH ×3 (10:02→12:11)
[2023-02-26] MEDS: POTASSIUM CHLORIDE 10 MEQ CAPSULE PO SCH (10:02)
--- NOTE | 2023-02-26 10:22 | PROVIDER PROGRESS NOTE ---
Assessment/Plan - Problem List (1) Hypotension due to blood loss Assessment/Plan: On 02/24 his supine, sitting and standing blood pressures were all under 100 systolic and he was tachy. The previous day, he had orthostasis that required him to be admitted from Observation to Inpatient status. I suspect that he is intravascularly depleted from his recent large lower GI bleed (s). Received 2 units PRBCs on 02/24 and blood pressure is running 100-110 systolic. He feels very weak today. Orthostatic vital signs are being checked daily and today he had a supine heart rate of 72 which evonne to 103 when he stood, thus he is still Orthostatic from volume depletion His Cardizem and metoprolol, which he gets for rate control of A-fib with RVR, were ordered to be on hold when systolic is under 120 (parameters) therefore they could not be given, thus we needed to give Digoxin IV for A-fib rate management today. We started daily Dig 0.25 mg Plan: Continue to monitor orthostatic vital signs Cont working with PT and OT today since BP is better (2) Acute lower GI bleeding Impression: The patient has had 2 nweo-ji-ctyi GI bleeds, 1 hospitalization was at [facility] just last week and currently this one. He was admitted to the ICU for close monitoring of his hemoglobin every 8 hours and vital signs. At EGD, no source for bleeding in the stomach or duodenum were found. The colonoscopy found very high number of diverticula which are likely the source of intermittent bleeding, per the general surgeon. The empiric IV Protonix twice daily was stopped. I ordered daily oral iron supplement Yesterday he got 2 units PRBCs transfused, due to hypotension Plan: Cont to follow H/H q8h, transfuse if hemoglobin goes under 7, or if he again becomes hypotensive The diet needs to be high in fiber and his diet is being advanced (3) Anticoagulant long-term use Conclusion/Plan: Plan: Given the 2 episodes of GI blood loss requiring hospitalization, the patient will be advised to not use anticoagulants for a minimum of a month, preferably 6 months to a year. Plan: Remain off DOAC (4) Atrial fibrillation with rapid ventricular rate Conclusion/Plan: His Cardizem and metoprolol, which he gets for rate control of A-fib with RVR, were ordered to be on hold when systolic is under 120 (parameters) therefore they could not be given, thus we needed to give Digoxin IV for A-fib rate management today. We started daily Dig 0.25 mg He may continue with his usual heart rate slowing medications of both Toprol-XL and Cardizem CD, if he does not drop BP below the parameters ordered; none still could be given today Plan: Continue Dig daily. We will check a Dig level starting tomorrow Remain off DOAC, I recommend permanently. Continue ECASA 81 mg daily as his stroke prophylaxis (5) Diverticulosis Conclusion/Plan: Dr. Resendiz and I spoke at the completion of the EGD and colonoscopy several days ago. There was alot of diverticulosis, none were actively bleeding. Plan: As we advance his diet, will recommend a high-fiber diet (6) Diabetes mellitus Conclusion/Plan: Patient is only eating 50 to 75% of his meals, even after advancing his diet. All his blood glucose checks have been normal since admission. His first blood glucose checks were actually low on him and the hypoglycemia protocol for a diabetic was ordered Plan: We will stop fingerstick checks and sliding scale insulin coverage. This was discussed with dietitian Terese Will NOT be ordering a diabetic diet given the history of low blood glucoses here (7) Dementia The patient is a very poor historian. I had the social science manager reach out to his caregiver and confirm how much caregiving he gets: He has a live-in caregiver Tuesday through Tuesday and then a different livestock exhibitor Tuesday and Tuesday (the Tuesday caregiver is his ex-, who he called his "friend" when he and I spoke) Plan: He has a good set up for caregiving and a good discharge plan. - Current Meds Current Meds: Current Medications Generic Name Dose Route Start Last Admin Trade Name Moe PRN Reason Stop Dose Admin Aspirin 81 mg 02/23/23 09:00 02/26/23 08:27 Aspirin Ec 81 Mg Tablet PO 81 mg DAILY KEON Administration Bupropion HCl 150 mg 02/22/23 21:00 02/26/23 08:27 Bupropion Xl 150 Mg Tablet PO 150 mg BID KEON Administration Digoxin 250 mcg 02/24/23 13:00 02/26/23 08:31 Digoxin 500 Mcg/2 Ml Amp IVP 250 mcg DAILY KEON Administration Diltiazem HCl 240 mg 02/25/23 17:15 02/26/23 08:28 Diltiazem Cd 240 Mg Capsule PO 240 mg DAILY KEON Administration Ferrous Gluconate 324 mg 02/23/23 09:00 02/26/23 08:30 Ferrous Gluconate 324 Mg Tablet PO 324 mg DAILYWM KEON Administration Potassium Chloride 10 meq in 100 mls @ 100 mls/hr 02/26/23 09:00 02/26/23 10:02 Potassium Chloride IV 02/26/23 11:59 100 mls/hr Q1H KEON Administration Metoprolol Succinate 50 mg 02/25/23 17:15 02/26/23 08:31 Metoprolol Succinate 50 Mg Tablet PO 50 mg DAILY KEON Administration Multi-Ingredient Ointment 1 applic 02/23/23 22:44 02/25/23 11:35 Zinc Oxide 20% Oint 30 Gm Tube TOP 1 applic PRN PRN Administration Skin Care Multivitamins/Minerals 1 tab 02/25/23 17:00 02/26/23 08:27 Multivitamin W/Minerals Tablet PO 1 tab DAILYWM KEON Administration Pantoprazole Sodium 40 mg 02/23/23 09:00 02/26/23 08:30 Pantoprazole 40 Mg Tablet PO 40 mg BID KEON Administration Polyethylene Glycol 17 gm 02/26/23 09:00 02/26/23 08:26 Polyethylene Glycol 3350 17 Gm Packet PO 17 gm DAILY KEON Administration Potassium Chloride 20 meq 02/26/23 09:00 02/26/23 10:02 Potassium Chloride 10 Meq Capsule PO 20 meq DAILYWM KEON Administration Sodium Chloride 10 ml 02/22/23 17:00 02/26/23 08:41 Sodium Chloride Flush 0.9% 10 Ml Syringe IVP 10 ml 0100,0900,1700 KEON Administration Sodium Chloride 10 ml 02/22/23 10:22 02/23/23 17:38 Sodium Chloride Flush 0.9% 10 Ml Syringe IVP 10 ml PRN PRN Administration NEEDED PER PROVIDER ORDERS - Lab Result Fish Bone Diagrams: 02/26/23 13:01 02/26/23 04:36 - Additional Planning My Orders: My Active Orders 02/25/23 Dinner Regular Diet [DIET] 02/25/23 17:00 Multivitamin W/Minerals [Theragran M] 1 tab PO DAILYWM 02/25/23 17:15 Metoprolol Succinate [Toprol Xl] 50 mg PO DAILY [id number] CD [Cardizem Cd] 240 mg PO DAILY 02/26/23 09:00 Potassium Chlor 10 Meq/100 ml [Potassium Chloride] 10 meq in 100 ml IV Q1H Potassium Chloride [Micro-K] 20 meq PO DAILYWM polyethylene glycoL 3350 [Miralax] 17 gm PO DAILY 02/26/23 13:00 HGB - HEMOGLOBIN [HEME] Q8H 02/26/23 16:00 POTASSIUM [CHEM] Timed 02/26/23 21:00 HGB - HEMOGLOBIN [HEME] Q8H 02/27/23 05:00 BMP - BASIC METABOLIC PANEL [CHEM] DAILYLAB DIGOXIN [CHEM] DAILYLAB HGB - HEMOGLOBIN [HEME] Q8H 02/28/23 05:00 BMP - BASIC METABOLIC PANEL [CHEM] DAILYLAB DIGOXIN [CHEM] DAILYLAB Subjective - Subjective Patient Reports: Resting Comfortably, No Complaints Objective Vital Signs: Vital Signs - 24 hr 02/25/23 02/25/23 02/25/23 11:45 16:30 20:25 Temperature 36.7 C 36.9 C 36.7 C Heart Rate Heart Rate [ Brachial] Heart Rate [ 89 68 68 Monitoring electrodes] Respiratory 16 16 16 Rate Blood Pressure 120/92 H 113/64 [Left Brachial artery] Blood Pressure 102/63 [Right Brachial artery] O2 Saturation 99 99 95 02/25/23 02/26/23 02/26/23 23:25 03:58 08:03 Temperature 36.8 C 36.9 C 37 C Heart Rate Heart Rate [ 87 Brachial] Heart Rate [ 72 71 Monitoring electrodes] Respiratory 14 16 12 Rate Blood Pressure [Left Brachial artery] Blood Pressure 108/71 108/63 112/76 [Right Brachial artery] O2 Saturation 98 97 02/26/23 08:31 Temperature Heart Rate 87 Heart Rate [ Brachial] Heart Rate [ Monitoring electrodes] Respiratory Rate Blood Pressure [Left Brachial artery] Blood Pressure [Right Brachial artery] O2 Saturation Oxygen O2 Source Room air I&O (Last 24 Hrs): Intake and Output Totals x24h 02/24/23 02/25/23 02/26/23 23:59 23:59 23:59 Intake Total 1570 650 320 Output Total 950 855 730 Balance 620 -460 -410 General: Alert, Oriented x3 HEENT: Mucous membr. moist/pink, Other (Pale) Neck: Supple, No JVD Neuro: Alert, Non Focal, Other (Poor memory) Cardiovascular: No murmurs Respiratory: No respiratory distress Abdomen: Soft, No tenderness Extremities: No clubbing, No edema, No tenderness/swelling - Results Results: Laboratory Results WBC 7.2 x10^3/uL (4.8-10.8) 02/24/23 12:44 RBC 2.97 10^6/uL (4.70-6.10) L 02/24/23 12:44 Hgb 10.5 g/dL (14.0-18.0) L 02/26/23 04:36 Hct 28.6 % (42.0-52.0) L 02/24/23 12:44 MCV 96.3 fL (80.0-94.0) H 02/24/23 12:44 MCH 31.3 pg (27.0-31.0) H 02/24/23 12:44 MCHC 32.5 g/dL (32.0-36.0) 02/24/23 12:44 RDW 15.8 % (12.0-15.0) H 02/24/23 12:44 Plt Count 232 10^3/uL (130-450) 02/24/23 12:44 MPV 10.4 fL (7.4-11.4) 02/24/23 12:44 Neut # (Auto) 3.5 10^3/uL (1.5-6.6) 02/23/23 04:58 Lymph # (Auto) 1.8 10^3/uL (1.5-3.5) 02/23/23 04:58 [place] # (Auto) 0.7 10^3/uL (0.0-1.0) 02/23/23 04:58 Eos # (Auto) 0.2 10^3/uL (0.0-0.7) 02/23/23 04:58 Baso # (Auto) 0.1 10^3/uL (0.0-0.1) 02/23/23 04:58 Absolute Nucleated RBC 0.00 x10^3/uL 02/23/23 04:58 Nucleated RBC % 0.0 /100WBC 02/23/23 04:58 PT 16.9 secs (9.9-12.6) H 02/20/23 23:19 INR 1.6 (0.8-1.2) H 02/20/23 23:19 APTT 33.3 secs (24.9-33.3) 02/20/23 23:19 Sodium 143 mmol/L (135-145) 02/26/23 04:36 Potassium 2.8 mmol/L (3.5-5.0) L 02/26/23 04:36 Chloride 112 mmol/L (101-111) H 02/26/23 04:36 Carbon Dioxide 25 mmol/L (21-32) 02/26/23 04:36 Anion Gap 6.0 (6-13) 02/26/23 04:36 BUN 9 mg/dL (6-20) 02/26/23 04:36 Creatinine 0.7 mg/dL (0.6-1.2) 02/26/23 04:36 Estimated GFR (MDRD) 107 (>89) 02/26/23 04:36 Glucose 86 mg/dL (70-100) 02/26/23 04:36 POC Whole Bld Glucose 75 mg/dL (70 - 100) 02/25/23 16:30 Estimat Average Glucose 103 mg/dL (70-100) H 02/23/23 04:58 Hemoglobin A1c % 5.2 % (4.27-6.07) 02/23/23 04:58 Calcium 8.3 mg/dL (8.5-10.3) L 02/26/23 04:36 Phosphorus 2.5 mg/dL (2.5-4.6) 02/23/23 04:58 Magnesium 1.9 mg/dL (1.7-2.8) 02/26/23 04:36 Total Bilirubin 0.7 mg/dL (0.2-1.0) 02/22/23 12:12 AST 27 IU/L (10-42) 02/22/23 12:12 ALT 21 IU/L (10-60) 02/22/23 12:12 Alkaline Phosphatase 64 IU/L (42-121) 02/22/23 12:12 B-Natriuretic Peptide 285 pg/mL (5-100) H 02/20/23 23:19 Total Protein 5.7 g/dL (6.7-8.2) L 02/22/23 12:12 Albumin 2.7 g/dL (3.2-5.5) L 02/22/23 12:12 Globulin 3.0 g/dL (2.1-4.2) 02/22/23 12:12 Albumin/Globulin Ratio 0.9 (1.0-2.2) L 02/22/23 12:12 Lipase 65 U/L (22-51) H 02/20/23 23:47 Nasal Screen MRSA (PCR) NEGATIVE (NEGATIVE) 02/22/23 12:15 Last Dose Date 02/25/2023 02/26/23 04:36 Last Dose Time 0802/26/23 04:36 Digoxin 0.6 ng/mL 02/26/23 04:36 SARS-CoV-2 (PCR) NOT DETECTED 02/22/23 12:30 Blood Type B POSITIVE 02/21/23 03:56 Antibody Screen NEGATIVE 02/21/23 03:56 Crossmatch IS Only See Detail 02/21/23 03:56
[2023-02-26] MEDS: ZINC OXIDE 20% OINT 30 GM TUBE TOP PRN (12:19)
[2023-02-26] MEDS: SODIUM CHLORIDE FLUSH 0.9% 10 ML SYRINGE IVP PRN (13:21)
[2023-02-27] MEDS: SODIUM CHLORIDE FLUSH 0.9% 10 ML SYRINGE IVP SCH ×2 (05:12→08:17)
[2023-02-27 05:29] LABS: CALCIUM 8.2 mg/dL (8.5-10.3); CREATININE 0.7 mg/dL (0.6-1.2); POTASSIUM 3.3 mmol/L (3.5-5.0)
[2023-02-27 05:41] LABS: DIGOXIN 0.8 ng/mL
[2023-02-27] MEDS: polyethylene glycoL 3350 17 GM PACKET PO SCH (08:14)
[2023-02-27] MEDS: buPROPion XL 150 MG TABLET PO SCH (08:14)
[2023-02-27] MEDS: PANTOPRAZOLE 40 MG TABLET PO SCH (08:15)
[2023-02-27] MEDS: ASPIRIN EC 81 MG TABLET PO SCH (08:15)
[2023-02-27] MEDS: DIGOXIN 500 MCG/2 ML AMP IVP SCH (08:15)
[2023-02-27] MEDS: FERROUS GLUCONATE 324 MG TABLET PO SCH (08:15)
[2023-02-27] MEDS: diltiaZEM CD 240 MG CAPSULE PO SCH (08:15)
[2023-02-27] MEDS: MULTIVITAMIN W/MINERALS TABLET PO SCH (08:15)
[2023-02-27] MEDS: METOPROLOL SUCCINATE 50 MG TABLET PO SCH (08:15)
[2023-02-27] MEDS: POTASSIUM CHLORIDE 10 MEQ CAPSULE PO SCH (08:15)
[2023-02-27] MEDS ORDERED: SENNA 8.6 MG TABLET PO SCH (09:00)
[2023-02-27] MEDS ORDERED: DOCUSATE SODIUM 250 MG CAPSULE PO SCH (09:00)
--- NOTE | 2023-02-27 09:10 | Discharge Plan ---
Discharge Plan Problem Reviewed?: Yes Disposition: Home Health Service Condition: Stable Prescriptions: Ferric Citrate [Auryxia] 210 mg PO DAILY #30 tablet Diet: Regular Activity Restrictions: Activity as Tolerated Shower Restrictions: No Driving Restrictions: Yes Assistance Devices: Walker Weight Bearing: Full Weight Health Concerns: Patient was hospitalized with a another lower GI bleed. He underwent repeat upper endoscopy that showed no source of bleeding. He underwent colonoscopy w hich showed many diverticuli, none were bleeding, but this was felt to be the source of his recurrent GI bleeds. His anemia worsened with hypotension and he needed blood transfusions, which prolonged his hospital stay. He was taking a blood thinner Xarelto in the past, which should no longer be used, since he has had too many episodes of serious GI bleeding and the risk of using the blood thinner outweighs the benefit. He may resume all usual pre-hospital medications. He is being discharged home with a new prescription for daily iron replacement. This prescription was electronically sent to his [facility] in [place]. Plan of Treatment: Continue taking his usual medications, resume Home Health agency visits and he needs further PT and OT, due to deconditioning. Care Goals: Improvement in symptoms and stabilization are the goals. Assessment: The patient understands and is agreeable with the plan. Since he has adequate caregivers at home, he is returning back to his home. Additional Instructions or Follow Up instructions: If the patient has new or worsening symptoms, call his primary care provider for advice or patient should come to the ER. No Smoking: If you smoke, Please STOP! Call for help. Follow-up with: FREDDY THOMAS MD [Primary Care Provider] -
--- NOTE | 2023-02-27 10:13 | DISCHARGE SUMMARY ---
"Discharge Summary Admit Date: 02/22/23 Discharge Date: 02/27/23 Discharging Provider: Dr Jenni Pascal Primary Care Provider: Dr Rajwinder Hinton Condition at Discharge: Stable Discharge Disposition: 06 [facility] History of Present Illness: This is an 87-year-old male with a history of dementia, BPH, and A-fib previously on Xarelto. There is a history of prior GI bleeding; he was just hospitalized at [facility] with a GI bleed and underwent EGD on 02/19/2023 which showed telangiectasias. He was then discharged home. He represented on 02/20/2023 to our ER with complaints of hematochezia and melena. Hemoglobin has been followed and it started at 10 and has plateaued at 9. On 02/21/2023 he was seen by general veterinary surgery technologist who advised that the patient have an EGD and colonoscopy. The patient underwent a colon prep for his colonoscopy last night. Today 02/22/2023 he is being placed in Observation on the Hospitalist Team (as there were no available beds uintil today), and he is ready to go to the OR for RGD and colonoscopy. His blood pressure is running 129/80, heart rate 83. There has been no further melena or hematochezia. I am meeting the patient after the procedures and after he has awoken from conscious sedation. The patient is a poor historian. He says he lives alone and says he has caregivers that come into help him with meals, laundry and cleaning, and then says that his ex- lives with him. He denies any discomfort currently and has an appetite and wants to eat. - CONSULTS | PROCEDURES Consultations: Dr Resendiz Procedures: EGD and Colonoscpy - HOSPITAL COURSE Hospital Course: (1) Acute lower GI bleeding The patient has had 2 [id number] GI bleeds, with one hospitalization at [facility] just the previous week and now this hospitalization. He was placed in the ICU for close monitoring of his hemoglobin every 8 hours and vital signs. At EGD, no source for bleeding was seen in the stomach or duodenum. The colonoscopy found very high number of diverticuli, which are likely the source of int ermittent bleeding, per the general surgeon. The diet needs to be high in fiber and his diet was advanced. He was discharged home with a new prescription for a daily Iron tablet. Hgb at discharge was 11.5. (2) Hypotension due to blood loss He was brought into the hospital on 02/22. On 02/23, we noted he was orthostatic and he was admitted to Inpatient status. On 02/24 he was hypotensive with blood pressure standing of 75/36 and he was tachy at 130. That day, Hgb was 9, but he received 2 units PRBCs and blood pressure improved to 100-110 systolic. He felt very weak and we had to hold his Metoprolol and Cardizem for several days, as we continued to monitor his Orthostatic vital signs, while starting to work with PT and OT. On the day of discharge, his standing BP was 123/85, and HR 82. (3) Anticoagulant long-term use He should remain off Xarelto or any other anticoagulants (4) Atrial fibrillation with rapid ventricular rate When he was hypotensive, his Cardizem and Metoprolol, which he gets for rate control of A-fib with RVR, were on hold. We needed to give Digoxin IV 250 mcg daily for A-fib rate management. His Dig level was followed and was never toxic. His Metoprolol and Cardizem were slowly resumed and he did not need Dig prescribed for after discharge. He was on a baby aspirin daily while here. He c annot take anticoagulants for stroke prophylaxis. He may be a candidate for using Digoxin (if BP is low), and for a baby aspirin daily for his stroke prophylaxis, which should be determined by PCP at follow-up. (5) Diverticulosis The EGD showed no source of bleeding and the colonoscopy revealed alot of diverticulosis, none were actively bleeding. This is felt to be the cause of recurrent GI bleeds. I recommend he eat a high-fiber diet. (6) Dementia The patient is a very poor historian. He has a live-in caregiver Tuesday through Tuesday and then a different sliver lapper Tuesday and Tuesday. He was discharged home with [facility] to start visits. (7) Hx of Diabetes mellitus His A1C came back at 5.2. We stopped fingerstick checks and sliding scale insulin coverage, and ordered a Regular (not a Diabetic) diet. - ALLERGIES Allergies/Adverse Reactions: Allergies Allergy/AdvReac Type Severity Reaction Status Date / Time No Known Drug Allergies Allergy Verified 02/20/23 23:11 - MEDICATIONS Home Medications: Ambulatory Orders Medication Instructions Recorded Confirmed Bupropion HCl [Bupropion HCl Sr] 150 mg PO BID 08/07/14 02/23/23 Metoprolol Succinate [Toprol Xl] 50 mg PO DAILY 02/21/23 02/21/23 Pantoprazole [Protonix] 40 mg PO BID 02/21/23 02/21/23 Acetaminophen [Tylenol] 650 mg PO TID PRN 02/23/23 02/23/23 Bimatoprost 0.01% Ophth Dops 1 drops EACHEYE HS 02/23/23 02/23/23 [Lumigan 0.01% Ophth Drops] Brimonidine 0.2% Ophth Drops 1 drops OPTH BID 02/23/23 02/23/23 [Alphagan P 0.2% Ophth Drops] Finasteride [Proscar] 5 mg PO DAILY 02/23/23 02/23/23 Gabapentin [Neurontin] 400 mg PO TID 02/23/23 02/23/23 Potassium Chloride 10 meq PO DAILY 02/23/23 02/23/23 dilTIAZem HCL [Diltiazem 24Hr ER 240 mg PO DAILY 02/23/23 02/23/23 (Xr)] Ferric Citrate [Auryxia] 210 mg PO DAILY #30 tablet 02/27/23 - PHYSICAL EXAM AT DISCHARGE General Appearance: positive: No acute distress, Alert Eyes Bilateral: positive: Normal inspection, EOMI ENT: positive: ENT inspection nml, No signs of dehydration Neck: positive: Nml inspection, No JVD Respiratory: positive: No respiratory distress Cardiovascular: positive: No murmur, Irregularly irregular Abdomen: positive: Non-tender, Nml bowel sounds, No distention Skin: positive: Warm, Dry, Pallor Extremities: positive: Non-tender, No pedal edema Neurologic/Psychiatric: positive: Oriented x3, Motor nml, Other (Poor memory) - LABS Result Diagrams: 02/27/23 04:54 02/27/23 04:54 - DIAGNOSTIC IMAGING Diagnostic Imaging Results: Final report reviewed - FOLLOW UP Follow Up: See PCP in 1 to 2 weeks for hospital follow-up visit - TIME SPENT Time Spent in Discharge (Minutes): 40"
[2023-02-27 12:48] VITALS: BP 101/58
== END 2023-02-27 12:35 | disposition home health service (06) | DRG 378 ==
LOC: EDUNIT# → ED 23:01 → SDS 02-22 06:10 → ICU 02-22 10:22 → OBSVTOIN 02-23 14:17 → MS3 02-23 16:02
PROVIDERS: ADMIT Internal Medicine; ATTEND Internal Medicine
PROC: 0DBL8ZX Excision of Transverse Colon, Via Natural or Artificial Opening Endoscopic, Diagnostic (ICD-10-PCS; principal; 2023-02-22 09:45)
PROC: 30233N1 Transfusion of Nonautologous Red Blood Cells into Peripheral Vein, Percutaneous Approach (ICD-10-PCS; 2023-02-24)
DX: K57.31 Diverticulosis of large intestine without perforation or abscess with bleeding (principal); D12.3 Benign neoplasm of transverse colon; K44.9 Diaphragmatic hernia without obstruction or gangrene; K31.819 Angiodysplasia of stomach and duodenum without bleeding; K22.89 Other specified disease of esophagus; K64.2 Third degree hemorrhoids; K64.4 Residual hemorrhoidal skin tags; D50.0 Iron deficiency anemia secondary to blood loss (chronic); D62 Acute posthemorrhagic anemia; F03.90 Unspecified dementia, unspecified severity, without behavioral disturbance, psychotic disturbance, mood disturbance, and anxiety; I48.91 Unspecified atrial fibrillation; Z79.01 Long term (current) use of anticoagulants; Z79.84 Long term (current) use of oral hypoglycemic drugs; E11.9 Type 2 diabetes mellitus without complications; Z79.4 Long term (current) use of insulin; I95.89 Other hypotension; N40.1 Benign prostatic hyperplasia with lower urinary tract symptoms; R35.0 Frequency of micturition; R35.1 Nocturia
CPT/HCPCS: 36415; 43235; 45385; 80048; 80053; 80162; 83036; 83690; 83735; 83880; 84100; 84132; 85014; 85018; 85025; 85027; 85610; 85730; 86850; 86900; 86901; 86920; 87150; 87635; 96361; 96374; 96375; 96376; 97166; 99285; A9270; J7120; P9016

== ENCOUNTER 2023-07-26 13:20 | Outpatient (CLI) | payer MEDICARE, OTHER ==
[2023-07-26 13:36] LABS: BASOPHILS # (AUTO) 0.2 10^3/uL (0.0-0.1); BASOPHILS % (AUTO) 2.2 %; EOSINOPHILS # (AUTO) 0.3 10^3/uL (0.0-0.7); EOSINOPHILS % (AUTO) 3.3 %; HCT - HEMATOCRIT 43.2 % (42.0-52.0); LYMPHOCYTES # (AUTO) 2.2 10^3/uL (1.5-3.5); MEAN CORPUSCULAR HEMOGLOBIN 30.6 pg (27.0-31.0); MEAN CORPUSCULAR HGB CONC 32.4 g/dL (32.0-36.0); MEAN CORPUSCULAR VOLUME 94.3 fL (80.0-94.0); MEAN PLATELET VOLUME 10.3 fL (7.4-11.4); MONOCYTES # (AUTO) 1.2 10^3/uL (0.0-1.0); MONOCYTES % (AUTO) 14.4 %; NEUTROPHILS # (AUTO) 4.2 10^3/uL (1.5-6.6); NEUTROPHILS % (AUTO) 51.5 %; PLT - PLATELET COUNT 217 10^3/uL (130-450); RED BLOOD COUNT 4.58 10^6/uL (4.70-6.10); RED CELL DISTRIBUTION WIDTH 15.9 % (12.0-15.0); WHITE BLOOD COUNT 8.1 x10^3/uL (4.8-10.8)
[2023-07-26 13:54] LABS: ALBUMIN 3.8 g/dL (3.2-5.5); ALBUMIN/GLOBULIN RATIO 1.1 (1.0-2.2); ALKALINE PHOSPHATASE 66 IU/L (42-121); ALT ALANINE AMINOTRANSFERASE 17 IU/L (10-60); AST ASPARTATE AMINOTRANSFERASE 20 IU/L (10-42); BILIRUBIN,TOTAL 0.8 mg/dL (0.2-1.0); BUN - BLOOD UREA NITROGEN 16 mg/dL (6-20); CALCIUM 9.2 mg/dL (8.5-10.3); CARBON DIOXIDE - CO2 27 mmol/L (21-32); CHLORIDE 108 mmol/L (101-111); CRP - C-REACTIVE PROTEIN < 0.5 mg/dL (<0.5); GFR - MDRD 71 (>89); GLUCOSE 85 mg/dL (74-104); SODIUM 140 mmol/L (135-145); TOTAL PROTEIN 7.2 g/dL (6.4-8.9)
[2023-07-26 14:09] LABS: THYROID STIMULATING HORMONE 1.62 uIU/mL (0.34-5.60)
== END 2023-07-26 13:21 | disposition home or self-care (01) ==
LOC: LAB 13:20
PROVIDERS: ATTEND Internal Medicine
DX: R41.3 Other amnesia (principal); D50.0 Iron deficiency anemia secondary to blood loss (chronic); R63.4 Abnormal weight loss
CPT/HCPCS: 36415; 80053; 82607; 82728; 84443; 85025; 85651; 86140

== ENCOUNTER 2023-08-31 13:51 | Emergency (ER) | payer MEDICARE, OTHER ==
--- NOTE | 2023-08-31 14:46 | XRAY Report ---
PROCEDURE: Chest 1 View X-Ray INDICATIONS: cough TECHNIQUE: One view of the chest was acquired. COMPARISON: None. FINDINGS: Surgical changes and devices: Left chest wall pacemaker leads are in the region of right atrium and right ventricle.. Lungs and pleura: No pleural effusions or pneumothorax. Small area of airspace opacity in left lower lung field is seen which may represent small infiltrate versus atelectasis. Right lung is clear.. Mediastinum: Mediastinal contours appear normal. Heart size is normal. Bones and chest wall: No suspicious bony lesions. Overlying soft tissues appear unremarkable. IMPRESSION: Finding is concerning for small infiltrate versus atelectasis in left lower lobe. No pleural effusion or pneumothorax. Reviewed by: Johny Resendez MD on 08/31/2023 2:45 PM PST Approved by: Johny Resendez MD on 08/31/2023 2:45 PM PST Station ID: [id number]
[2023-08-31 14:52] LABS: BASOPHILS # (AUTO) 0.1 10^3/uL (0.0-0.1); BASOPHILS % (AUTO) 0.9 %; EOSINOPHILS # (AUTO) 0.1 10^3/uL (0.0-0.7); EOSINOPHILS % (AUTO) 0.5 %; HCT - HEMATOCRIT 43.3 % (42.0-52.0); HGB - HEMOGLOBIN 14.2 g/dL (14.0-18.0); LYMPHOCYTES # (AUTO) 1.2 10^3/uL (1.5-3.5); LYMPHOCYTES % (AUTO) 7.3 %; MEAN CORPUSCULAR HEMOGLOBIN 31.1 pg (27.0-31.0); MEAN CORPUSCULAR HGB CONC 32.8 g/dL (32.0-36.0); MEAN CORPUSCULAR VOLUME 94.7 fL (80.0-94.0); MEAN PLATELET VOLUME 10.3 fL (7.4-11.4); MONOCYTES # (AUTO) 1.3 10^3/uL (0.0-1.0); MONOCYTES % (AUTO) 7.9 %; NEUTROPHILS # (AUTO) 13.1 10^3/uL (1.5-6.6); NEUTROPHILS % (AUTO) 82.8 %; PLT - PLATELET COUNT 232 10^3/uL (130-450); RED BLOOD COUNT 4.57 10^6/uL (4.70-6.10); WHITE BLOOD COUNT 15.8 x10^3/uL (4.8-10.8)
[2023-08-31 15:16] LABS: ALBUMIN 3.9 g/dL (3.2-5.5); ALBUMIN/GLOBULIN RATIO 1.3 (1.0-2.2); BILIRUBIN,TOTAL 1.4 mg/dL (0.2-1.0); CALCIUM 9.5 mg/dL (8.5-10.3); POTASSIUM 4.2 mmol/L (3.5-4.5); TOTAL PROTEIN 6.9 g/dL (6.4-8.9)
[2023-08-31] MEDS ORDERED: AMOXICILLIN 250 MG CAPSULE PO STA (15:30)
[2023-08-31] MEDS ORDERED: AZITHROMYCIN 250 MG TABLET PO STA (15:30)
--- NOTE | 2023-08-31 15:31 | ED Physician Documentation ---
History of Present Illness - Stated complaint Stated Complaint: FEVER/COUGH - Chief complaint Chief Complaint: Fever - History obtained from History obtained from: Patient - Additonal information Additional information: He has a history of A-fib, not anticoagulated, he developed productive cough and fever last night. No sick contacts. PD PAST MEDICAL HISTORY - Past Medical History Cardiovascular: Atrial fibrillation Respiratory: None Neuro: Dementia Endocrine/Autoimmune: Type 2 diabetes GI: GERD, Diverticulitis : Benign prostate hypertrophy, Nocturia, Frequency HEENT: Chronic vision loss Psych: Depression, Anxiety Musculoskeletal: Chronic back pain Derm: None - Past Surgical History Past Surgical History: Yes Cardiovascular: Pacemaker - Present Medications Home Medications: Ambulatory Orders Medication Instructions Recorded Confirmed Bupropion HCl [Bupropion HCl Sr] 150 mg PO BID 08/07/14 02/23/23 Metoprolol Succinate [Toprol Xl] 50 mg PO DAILY 02/21/23 02/21/23 Pantoprazole [Protonix] 40 mg PO BID 02/21/23 02/21/23 Acetaminophen [Tylenol] 650 mg PO TID PRN 02/23/23 02/23/23 Bimatoprost 0.01% Ophth Dops 1 drops EACHEYE HS 02/23/23 02/23/23 [Lumigan 0.01% Ophth Drops] Brimonidine 0.2% Ophth Drops 1 drops OPTH BID 02/23/23 02/23/23 [Alphagan P 0.2% Ophth Drops] Finasteride [Proscar] 5 mg PO DAILY 02/23/23 02/23/23 Gabapentin [Neurontin] 400 mg PO TID 02/23/23 02/23/23 Potassium Chloride 10 meq PO DAILY 02/23/23 02/23/23 dilTIAZem HCL [Diltiazem 24Hr ER 240 mg PO DAILY 02/23/23 02/23/23 (Xr)] Ferric Citrate [Auryxia] 210 mg PO DAILY #30 tablet 02/27/23 Amoxicillin 2 tab PO TID #30 cap 08/31/23 Azithromycin [Zithromax] 1 tab PO DAILY #4 tab 08/31/23 - Allergies Allergies/Adverse Reactions: Allergies Allergy/AdvReac Type Severity Reaction Status Date / Time No Known Drug Allergies Allergy Verified 02/20/23 23:11 - Social History Does the pt smoke?: No Smoking Status: Never smoker Does the pt drink ETOH?: No Does the pt have substance abuse?: No - Immunizations Immunizations are current?: Yes - POLST Patient has POLST: No PD ED PE NORMAL - Vitals Vital signs reviewed: Yes - General General: Alert and oriented X 3, No acute distress, Other (He appears well, nonlabored breathing and nontoxic) - Cardiac Cardiac: RRR, No murmur - Respiratory Respiratory: No respiratory distress, Clear bilaterally - Abdomen Abdomen: Non tender - Extremities Extremities: No edema, No calf tenderness / cord - Neuro Neuro: Alert and oriented X 3, Normal speech Results - Vitals Vitals: Vital Signs - 24 hr 08/31/23 14:11 Temperature 37.7 C Heart Rate 68 Respiratory 20 Rate Blood Pressure 96/60 O2 Saturation 96 Oxygen O2 Source Room air - Labs Labs: Laboratory Tests 08/31/23 08/31/23 08/31/23 14:46 14:46 14:46 WBC 15.8 H RBC 4.57 L Hgb 14.2 Hct 43.3 MCV 94.7 H MCH 31.1 H MCHC 32.8 RDW 15.0 Plt Count 232 MPV 10.3 Neut # (Auto) 13.1 H Lymph # (Auto) 1.2 L Davison # (Auto) 1.3 H Eos # (Auto) 0.1 Baso # (Auto) 0.1 Absolute Nucleated RBC 0.00 Nucleated RBC % 0.0 Sodium 138 Potassium 4.2 Chloride 109 Carbon Dioxide 20 L Anion Gap 9.0 BUN 16 Creatinine 1.0 Estimated GFR (MDRD) 71 L Glucose 119 H Lactic Acid 1.1 Calcium 9.5 Total Bilirubin 1.4 H AST 21 ALT 16 Alkaline Phosphatase 67 Total Protein 6.9 Albumin 3.9 Globulin 3.0 Albumin/Globulin Ratio 1.3 - Rads (name of study) Chest x-ray demonstrating left lower lobe pneumonia Relevant Findings:: Final report received, EMP independent interpretation of test PD Medical Decision Making - ED course ED course: 87-year-old gentleman with mild left lower lobe pneumonia. CBC with expected leukocytosis. CMP and lactate normal/negative. He appears well with unremarkable vital signs so I do not think he needs admission but we started him on amoxicillin and azithromycin for a 5-day course and given close return precautions. Departure - Departure Disposition: 01 Home, Self Care Clinical Impression: Pneumonia Qualifiers: Pneumonia type: due to unspecified organism Laterality: left Lung location: lower lobe of lung Qualified Code(s): J18.9 - Pneumonia, unspecified organism Condition: Good Record reviewed to determine appropriate education?: Yes Instructions: ED Pneumonia Adult Prescriptions: Amoxicillin 2 tab PO TID #30 cap Azithromycin [Zithromax] 1 tab PO DAILY #4 tab Comments: I sent your prescriptions electronically to the [facility] in [place]. As discussed it looks like you have a mild left lower lobe pneumonia. You can take Tylenol for the fever and if you worsen please return for reevaluation. Follow-up with your primary care physician after the iday weekend calling today or Tuesday for an appointment. Forms: PCP List
[2023-08-31 15:54] VITALS: BP 102/62; O2SAT 99
[2023-08-31 16:17] LABS: B. PARAPERTUSSIS- RESP PCR PAN NOT DETECTED; B. PERTUSSIS- RESP PCR PANEL NOT DETECTED; C. PNEUMONIAE- RESP PCR PANEL NOT DETECTED; CORONAVIRUS 229E-RESP PCR NOT DETECTED; CORONAVIRUS HKU1-RESP PCR NOT DETECTED; CORONAVIRUS NL63-RESP PCR NOT DETECTED; CORONAVIRUS OC43-RESP PCR NOT DETECTED; HUMAN METAPNEUMOVIRUS NOT DETECTED; INFLUENZA A- RESP PCR PANEL NOT DETECTED; INFLUENZA B - RESP PCR PANEL NOT DETECTED; M. PNEUMONIAE- RESP PCR PANEL NOT DETECTED; PARAINFLUENZA VIRUS 1 NOT DETECTED; PARAINFLUENZA VIRUS 2 NOT DETECTED; PARAINFLUENZA VIRUS 3 NOT DETECTED; PARAINFLUENZA VIRUS 4 NOT DETECTED; RHINOVIRUS/ENTEROVIRUS NOT DETECTED; RSV- RESP PCR PANEL NOT DETECTED; SARS-CoV-2 -RESP PCR PANEL NOT DETECTED
== END 2023-08-31 15:54 | disposition home or self-care (01) ==
LOC: ED 13:51
DX: J18.9 Pneumonia, unspecified organism (principal); Z20.822 Contact with and (suspected) exposure to COVID-19
CPT/HCPCS: 36415; 71045; 80053; 83605; 85025; 87040; 87633; 99284; A9270